=== PATIENT | male | born 1985 | race Caucasian/White ===

== ENCOUNTER 2024-03-26 16:17 | Emergency (ER) | payer OTHER, SELFPAY ==
--- NOTE | ~2024-03-26 | XR_ITS ---
EXAMINATION: XR chest 2V Exam Date/Time: 03/26/2024 16:48 HEAD SWAMPER HISTORY: Chest Pressure, COUGH Comparison: None. RESULT: Lines, tubes, and devices: None. Lungs and pleura: Patchy bibasilar subsegmental opacities. Discoid atelectasis in the right lower nicole ng. Mild right costophrenic angle blunting. Right minor fissure fluid. Cardiomediastinal silhouette: Stable. Other: No acute osseous or upper abdominal finding. IMPRESSION: Subsegmental bibasilar atelectasis/consolidation. Small right pleural effusion. Reviewed, dictated and finalized at location K. SWAMPER
--- NOTE | ~2024-03-26 | CT_ITS ---
EXAMINATION: CTA chest PE protocol DATE: 03/26/2024 18:30 INDICATION: pleuritic CP TECHNIQUE: Computed tomography angiography (CTA) of the chest was performed with 100 mL Omnipaque-350 intravenous contrast timed to evaluate the pulmonary arteries. Coronal maximum intensity projection 3D-reconstructions were created by the technologist. The dose-length product (DLP) was 385.46 mGy-cm. Automated exposure control and iterative reconstruction technique were employed. COMPARISON: X-ray chest, same date. FINDINGS: Lung parenchyma and airways: Moderate motion artifact in the lower lungs. Linear and patchy areas of subsegmental opacities in the bilateral lung bases. Patent airways. Pleura: Trace right pleural fluid. Thoracic inlet, axillae and chest wall: Unremarkable. Thoracic aorta: No significant dilation. No dissection. Mediastinum: Normal. Heart and pericardium: Cardiomegaly. Small volume pericardial fluid. Coronary artery calcifications: Absent. Upper abdomen: No significant finding. Bones: No acute osseous finding. Pulmonary arteries: Study quality: Study limited by moderate motion artifact in the lower lungs which limits evaluation of the subsegmental pulmonary arteries in the right lower lobe and the segmental a nd subsegmental pulmonary arteries in the left lower lobe. No pulmonary emboli detected in the adequa tely visualized pulmonary arteries. IMPRESSION: Motion limits evaluation of the left lower lobe segmental and subsegmental arteries and the right low er lobe subsegmental arteries. No CT evidence of acute pulmonary embolus in the adequately visualized pulmonary arteries. Streaky and patchy areas of consolidation in the bilateral lung bases, consider infection the differe ntial. Cardiomegaly, small pericardial effusion. Small right pleural effusion. Reviewed, dictated and finalized at location K. FACTURING SUPERVISOR IMPRESSION: Motion limits evaluation of the left lower lobe segmental and subsegmental el[place] ann and the right lower lobe subsegmental arteries. No CT evidence of acute pu lmonary embolus in the adequately visualized pulmonary arteries. Streaky and patchy areas of consolidation in the bilateral lung bases, consider infection the differential. Cardiomegaly, small pericardial effusion. Small right pleural effusion.
[2024-03-26 16:21] VITALS: BP 142/84; PULSE 105; RESP 19; TEMP 36.5; O2SAT 98
--- NOTE | 2024-03-26 16:24 | ECG_ITS ---
Test Date: 2024-03-26 16:28:35 Measurements Intervals [place] Rate: 96 P: 35 [place]: 178 QRS: 2 QRSD: 89 T: 0 QT: 365 QTc: 462 Interpretive Statements SINUS RHYTHM POSSIBLE LEFT ATRIAL ENLARGEMENT [-0.1mV P WAVE IN V1/V2] POSSIBLE LEFT VENTRICULAR HYPERTROPHY [VOLTAGE CRITERIA PLUS LAE OR QRS WIDENING] NONSPECIFIC T-WAVE ABNORMALITY No previous ECG available for comparison Electronically Signed On 03-26-2024 18:08:32 PAPER BALER by Daniel Hou M.D.
[2024-03-26 16:40] LABS: Basophils Percent Auto 0.2 % (0.2-1.2); Eosinophils Absolute Auto 0.2 K/mm3 (0-0.3); Eosinophils Percent Auto 3.8 % (0-4.4); Hematocrit 33.1 % (42.0-52.0); Hemoglobin 10.9 g/dL (14.0-18.0); Immature Granulocyte Absolute 0.03 K/mm3 (0.00-0.031); Immature Granulocyte Percent A 0.6 % (0-0.5); Lymphocytes Absolute Auto 0.82 K/mm3 (0.9-3.2); Lymphocytes Percent Auto 17.1 % (18.3-44.2); Mean Corpuscular HGB Conc 32.9 g/dl (32-36); Mean Corpuscular Hemoglobin 26.5 pg (26-34); Mean Corpuscular Volume 80.5 fl (80-100); Mean Platelet Volume 9.6 fl (7.4-10.4); Monocytes Absolute Auto 0.2 K/mm3 (0.1-0.6); Monocytes Percent Auto 4.6 % (2.6-8.5); Neutrophils Absolute Auto 3.5 K/mm3 (1.3-6.7); Neutrophils Percent Auto 73.7 % (45.5-73.1); Platelet Count Result 319 k/mm3 (150-375); Red Blood Count 4.11 M/mm3 (4.6-6.20); Red Cell Distribution Width 13.3 % (11.5-14.5); White Blood Count 4.8 K/mm3 (4.5-10.0)
[2024-03-26 16:51] LABS: INR 1.1
[2024-03-26 16:52] LABS: Partial Thromboplastin Time 35.9 Seconds (22.3-36.8)
[2024-03-26 16:53] LABS: Alanine Aminotransferase 39 U/L (6-50); Albumin Level 3.6 g/dL (3.5-5.1); Alkaline Phosphatase 143 U/L (38-126); Anion Gap 7 mmol/L (4-12); Aspartate Amino Transferase 48 U/L (17-59); Bilirubin,Total 0.8 mg/dL (0.2-1.3); Blood Urea Nitrogen 13 mg/dL (9-20); Calcium 9.4 mg/dL (8.4-10.2); Carbon Dioxide 28 mmol/L (22-30); Chloride 105 mmol/L (98-107); Estimated CRCL calculation 115 ml/min; Estimated Glomerular Filt Rate > 60; Glucose 112 mg/dL (65-110); Lipase 85 U/L (23-300); Potassium 3.7 mmol/L (3.4-5.0); Sodium 140 mmol/L (137-145)
[2024-03-26 17:04] VITALS: O2SAT 98
[2024-03-26 17:04] LABS: Troponin I < 0.012 ng/mL (0.000-0.034)
--- NOTE | 2024-03-26 17:27 | ED_ITS ---
HPI - Chest Pain General Chief Complaint: Chest Pain Stated Complaint: Pain with Inspiration Time Seen by Provider: 03/26/24 17:05 History of Present Illness HPI narrative: 39 year old male presenting with chest pain. States that he was recently treated for pneumonia several weeks ago. States that he has been having intermittent chest pain and some shortness of breath this entire time. States over the last couple days chest pain has gotten worse and is now worse with inspiration. Has tried ibuprofen with minimal relief. Related Data Allergies Allergy/AdvReac Type Severity Reaction Status Date / Time No Known Allergies Allergy Verified 03/26/24 17:58 Review of Systems 2 Review of Systems: All systems reviewed & are unremarkable except as noted in HPI and below Exam 2 Narrative: GENERAL: Nontoxic, no acute distress, pleasant cooperative HEAD: Normocephalic, atraumatic. EYES: PERRLA and EOMI. ENT: Grossly unremarkable NECK: Supple. CHEST: Clear to auscultation. No respiratory distress. HEART: Tachycardic, regular rhythm ABDOMEN: Soft, nontender, nondistended EXTREMITIES: Normal range of motion. No edema. SKIN: Warm, dry, no rash. NEURO: No focal deficits. Alert and oriented x3. PSYCH: Normal mood and affect. Course Vital Signs Vital signs: Vital Signs Temperature 97.7 F 03/26/24 16:21 Pulse Rate 105 H 03/26/24 16:21 Respiratory Rate 19 03/26/24 16:21 Blood Pressure 142/84 H 03/26/24 16:21 Pulse Oximetry 98 03/26/24 16:21 Oxygen Delivery Room Air 03/26/24 16:21 Temperature 97.7 F 03/26/24 16:21 Pulse Rate 100 03/26/24 21:26 Respiratory Rate 19 03/26/24 21:26 Blood Pressure 151/88 H 03/26/24 21:26 Pulse Oximetry 99 03/26/24 21:26 Oxygen Delivery Room Air 03/26/24 17:04 MDM - Chest Pain MDM Narrative Medical decision making narrative: 39-year-old male presenting with chest pain that is worse with inspiration. Tachycardic, otherwise vitals are within normal limits. Exam otherwise remarkable for the above. Blood work without significant abnormalities. CTA of the chest shows no pulmonary embolus but he does have consolidations in both bases with a small right-sided pleural effusion. Patient given a dose of IV Rocephin and doxycycline. He continues to saturate well on room air. Feel he is safe for outpatient management. Will send in for Keflex and doxy. Recommend very close PCP follow-up. Strict return precautions given. Discharged in stable condition. Differential Diagnosis Differential diagnosis: Likely atypical chest pain, costochondritis, chest pain and other (Pneumonia, PE, viral URI, pleuritis) Medical Records Data Attestation: I reviewed the patient's medical records. Lab Data Attestation: I reviewed the patient's lab results. 03/26/24 16:31 03/26/24 16:31 Labs: Lab Results 03/26/24 03/26/24 Range/Units 16:31 19:34 WBC 4.8 (4.5-10.0) K/mm3 RBC 4.11 L (4.6-6.20) M/mm3 Hgb 10.9 L (14.0-18.0) g/dL Hct 33.1 L (42.0-52.0) % MCV 80.5 (80-100) fl MCH 26.5 (26-34) pg MCHC 32.9 (32-36) g/dl RDW 13.3 (11.5-14.5) % Plt Count 319 (150-375) k/mm3 MPV 9.6 (7.4-10.4) fl Immature Gran % (Auto) 0.6 H (0-0.5) % Neut % (Auto) 73.7 H (45.5-73.1) % Lymph % (Auto) 17.1 L (18.3-44.2) % [place] % (Auto) 4.6 (2.6-8.5) % Eos % (Auto) 3.8 (0-4.4) % Baso % (Auto) 0.2 (0.2-1.2) % Lymph # (Auto) 0.82 L (0.9-3.2) K/mm3 [place] # (Auto) 0.2 (0.1-0.6) K/mm3 Eos # (Auto) 0.2 (0-0.3) K/mm3 Baso # (Auto) 0.0 (0.0-0.1) K/mm3 Abs Immat Gran (auto) 0.03 (0.00-0.031) K/mm3 Absolute Neuts (auto) 3.5 (1.3-6.7) K/mm3 Absolute Nucleated RBC 0.000 (0.0-0.012) K/mm3 Nucleated RBC % 0.0 (0.0-0.2) % PT 15.0 H (11.1-14.7) Seconds INR 1.1 APTT 35.9 (22.3-36.8) Seconds Sodium 140 (137-145) mmol/L Potassium 3.7 (3.4-5.0) mmol/L Chloride 105 (98-107) mmol/L Carbon Dioxide 28 (22-30) mmol/L Anion Gap 7 (4-12) mmol/L BUN 13 (9-20) mg/dL Creatinine 0.80 (0.7-1.3) mg/dL Estim Creat Clear Calc 115 ml/min Estimated GFR > 60 (59 - ) Glucose 112 H (65-110) mg/dL Calcium 9.4 (8.4-10.2) mg/dL Total Bilirubin 0.8 (0.2-1.3) mg/dL AST 48 (17-59) U/L ALT 39 (6-50) U/L Alkaline Phosphatase 143 H (38-126) U/L Troponin I < 0.012 < 0.012 (0.000-0.034) ng/mL Total Protein 9.0 H (6.3-8.2) g/dL Albumin 3.6 (3.5-5.1) g/dL Lipase 85 (23-300) U/L Influenza A (RT-PCR) Negative (Negative) Influenza B (RT-PCR) Negative (Negative) RSV (RT-PCR) Negative (Negative) SARS-CoV-2 RNA (RT-PCR) Negative (Negative) Imaging Data Radiologist's impression: ITS Impressions Chest X-Ray 03/26/24 17:17 IMPRESSION: Subsegmental bibasilar atelectasis/consolidation. Small right pleural effusion. Chest CTA 03/26/24 18:38 IMPRESSION: Motion limits evaluation of the left lower lobe segmental and subsegmental arteries and the right lower lobe subsegmental arteries. No CT evidence of acute pulmonary embolus in the adequately visualized pulmonary arteries. Streaky and patchy areas of consolidation in the bilateral lung bases, consider infection the differential. Cardiomegaly, small pericardial effusion. Small right pleural effusion. Critical Care Time Critical Care Time Critical Care Time: No Discharge Plan Discharge Clinical Impression: Pneumonia, Atypical chest pain, Pleural effusion on right Patient Disposition: Home, Self-Care Condition: Stable Instructions: Antibiotic Form, Community Acquired Pneumonia (DC) Additional Instructions: We are treating you with 2 different antibiotics for pneumonia. Please complete these as prescribed. Follow up very closely with your PCP. If your symptoms worsen or other concerning symptoms arise, please return to the ER. Patient Language: Martiniquais Prescriptions: New cefpodoxime 200 mg tablet 200 mg PO BID Qty: 14 0RF Rx Instructions: must administer with a meal/food doxycycline hyclate 100 mg tablet 100 mg PO BID Qty: 14 0RF Follow-up/Referrals: PHYSICIAN NOT ON STAFF,NONSTAFF [Primary Care Provider] - Stand Alone Forms: Work/School Release IP
[2024-03-26] MEDS: MORPHINE SULFATE (*CRX) 2 MG/ML INJ IV PUSH (18:08)
[2024-03-26] MEDS: SODIUM CHLORIDE 0.9% IV 1,000 ML 999 ML IV CONT (18:08)
[2024-03-26] MEDS: KETOROLAC 15 MG/ML VIAL (*BKC) IV PUSH (18:08)
[2024-03-26] MEDS: cefTRIAXone 2 GM/NS 100 ML 2 GM/100 ML BAG IVPB (19:11)
[2024-03-26 19:25] VITALS: BP 139/67; PULSE 98; RESP 18; O2SAT 100
[2024-03-26] MEDS: DOXYCYCLINE 100 MG/NS 100 ML 100 MG/100 ML BAG IVPB (19:53)
[2024-03-26 20:02] LABS: Troponin I < 0.012 ng/mL (0.000-0.034)
[2024-03-26 20:15] LABS: Influenza A QL RT-PCR Negative (Negative); Influenza B QL RT-PCR Negative (Negative); RSV RNA, RT-PCR Negative (Negative); SARS-CoV-2 RNA PCR Negative (Negative)
[2024-03-26 21:26] VITALS: BP 151/88; PULSE 100; RESP 19; O2SAT 99
--- OUTSIDE RECORDS SUMMARY | 2024-03-30 23:34 | XMS_ITS | Encounter Summary ---
Author Organization [facility] Address [address] [place] [address]. [place], [place] [address] [place] [id number] Care Team Providers Care Plumber And Tinner Name Role Phone Preethi Hall Primary Care Provider [phone] Reason for Visit * Reason Comments UTI frequency with urina tion but not going as much x 3 days, pain a few weeks ago in lower back (has had a kidney stone before) Encounter Details Date Type Department Care Team (Late st Contact Info) Description 07/04/2020 3:20 PM CDT Office Visit [facility] [address] [place] [address] Sergo Brand MD UTI (frequency with urination but not going as much x 3 days, pain a few weeks ago in lower back (has had a kidney stone before)) Social History Tobacco Use Types Packs/Day Years Used Date Smoking Tobacco: Never Smokeless Tobacco: Never Alcohol Use Standard Drinks/Week Comments Yes 0 (1 standard drink = 0.6 oz pur e alcohol) PHQ-2 Answer Date Recorded PHQ-2 Score - If the patient scores above 3, please move on to questions 3-9 0 09/21/2019 Sex and Gender Information Value Date Recorded Sex Assigned at Not on file Legal Sex Male 12:28 PM CDT Gender Identity Not on file Sexual Orientation Not on file COVID-19 Exposure Response Date Recorded In the last month, have you been in contact with someone who was confirmed or suspected to have Coronavirus / COVID-19? No / Unsure 07/04/2020 3:07 PM CDT documented as of this encounter Last Filed Vital Signs Vital Sign Reading Time Taken Comments Blood Pressure 132/86 07/04/2020 3:09 PM CDT Pulse 74 07/04/2020 3:09 PM CDT Temperature 35.9 ??C (96.6 ??F) 07/04/2020 3:09 PM CD T Respiratory Rate 18 07/04/2020 3:09 PM CDT Oxygen Saturation 97% 07/04/2020 3:09 PM CDT Inhaled Oxygen Concentration - - Weight 95.7 kg (211 lb) 07/04/2020 3:09 PM CDT Height 180.3 cm (5' 11 ) 07/04/2020 3:09 PM CDT Body Mass Index 29.43 07/04/2020 3:09 PM CDT documented in this encounter Progress Notes * Sergo Brand MD - 07/04/2020 3:20 PM CDT Reason for Visit: UTI (frequency with urination but not going as much x 3 days, pain a few weeks ago in lower back (has had a kidney stone before)) Filed Vitals: 07/04/20 1509 BP: 132/86 Pulse: 74 Resp: 18 Temp: 96.6 ??F (35.9 ??C) TempSrc: Temporal SpO2: 97% Weight: 95.7 kg (211 lb) Height: 5' 11 (1.803 m) Body mass index is 29.43 kg/m??. History of Present Illness: HPI good afternoon office visit in Mr. Yosi Pineda pleasant young man 35-year-old gentleman witha history of previous kidney stones in the past comes today with 3 days of low back pain and increased urination and burning when he urinates he does have a history of previous kidney stones I guess that urinalysis today shows some blood but no leukocytes or nitrates suggestive of another kidney stone is possible that he already passed it as he does not have any back pain right now so encouraged him to drink plenty of fluids I going to send the urine for a microscopic examination and culture ifneeded otherwise plenty of fluids and that should get better in the next few days if not I will need to see him back again and perhaps order a CT scan with stone protocol or if he gets worse he can go directly to the emergency room and have those test done over there. Encouraged him to eliminate sodas ROS: Review of Systems Constitutional: Negative for chills and fever. Respiratory: Negative. Cardiovascular: Negative. Genitourinary: Positive for dysuria, frequency and urgency. Negative for hematuria. He had some flank pain few days ago Musculoskeletal: low back pain few days ago Medications: No current outpatient medications on file. Allergies Allergen Reactions ??? Shellfish-Derived Products Swelling Patient states he is allergic to all shellfish and seafood. History reviewed. No pertinent past medical history. Past Surgical History: Procedure Laterality Date ? ? HC I&D SKIN ABSCESS ??? REMOVAL OF SPERM DUCT(S) ??? TOOTH EXTRACTION 4 wisdom teeth Social History Socioeconomic History ??? Marital status: Spouse name: Not on file ??? Number of children: Not on file ??? Years of education: Not on file ??? Highest education level: Not on file Occupational History ??? Not on file Social Needs ??? Financial resource strain: Not on file ??? Food insecurity Worry: Not on file Inability: Not on file ??? Transportation needs Medical: Not on file Non-medical: Not on file Tobacco Use ??? Smoking status: Never Smoker ??? Smokeless tobacco: Never Used Substance and Sexual Activity ??? Alcohol use: Yes ??? Drug use: Never ??? Sexual activity: Yes Lifestyle ??? Physical activity Days per week: Not on file Minutes per session: Not on file ??? Stress: Not on file Relationships ??? Social connections Talks on phone: Not on file Gets together: Not on file Attends buddhist service: Not on file Active member of club or organization: Not on file Attends meetings of clubs or organizations: Not on file Relationship status: Not on file ??? Intimate partner violence Fear of current or ex partner: Not on file Emotionally abused: Not on file Physically abused: Not on file Forced sexual activity: Not on file Other Topics Concern ??? Not on file Social History Narrative ??? Not on file Family History Problem Relation Name Age of Onset ??? Heart Disease Father ??? Diabetes Father type 2 ??? Stroke Father Family Status Relation Name Status ??? Father (Not Specified) Physical Exam Constitutional: He is oriented to person, place, and time. He appears well- developed and well-nourished. Cardiovascular: Normal rate and regular rhythm. Pulmonary/Chest: Effort normal and breath sounds normal. Abdominal: Soft. Bowel sounds are normal. He exhibits no distension and no mass. There is no abdominal tenderness. There is no rebound and no guarding. Today he has no back pain percussion of the flanks were negative normal Musculoskeletal: Normal range of motion. Neurological: He is alert and oriented to person, place, and time. Results for orders placed or performed in visit on 07/04/20 URINALYSIS AUTO DIP Result Value Ref Range COLOR (U) DARK YELLOW TRANSPARENCY CLOUDY GLUCOSE (U) NEGATIVE NEGATIVE MG/DL BILIRUBIN (U) NEGATIVE NEGATIVE U KETONES NEGATIVE NEGATIVE MG/DL Specific [place] (U) 1.020 1.001 - 1.035 BLOOD MODERATE (2+ Hemolyzed, About 50 rbc/uL) NEGATIVE U PH 7.0 5.0 - 9.0 PROTEIN (U) NEGATIVE NEGATIVE mg/dL UROBILINOGEN 1.0 0.2 - 1.0 EU/dL = mg/dL NITRITES NEGATIVE NEGATIVE MG/DL LEUKOCYTE ESTERASE NEGATIVE NEGATIVE Assessment Encounter Diagnose(s) ICD-10-CM ICD-9-CM SNOMED CT(R) 1. UTI symptoms R39.9 788.99 URINARY SYMPTOMS URINALYSIS AUTO DIP CULTURE URINE Plan he is going to be drinking plenty of fluids and he is going to pay attention to the urine and see if he disease as done it is possible that he already passed the stone and that is why he having the symptoms that he has. Recommendation for the near future if the problem does not get better and if he gets worse to go to the emergency room if the is not better within a week would like to see him back again I going to send the urine for a microscopic examination. No antibiotics for now Orders Placed This Encounter ??? URINALYSIS AUTO DIP ??? CULTURE URINE Follow up FU PRN SERGO BRAND MD 07/04/2020 3:47 PM documented in this encounter Plan of Treatment Not on file documented as of this encounter Procedures Procedure Name Priority Date/Time Associated Diagnosis Comments URINALYSIS AUTO DIP Routine 07/04/2020 3 :09 PM CDT UTI symptoms documented in this encounter Results * CULTURE URINE (07/04/2020 5:26 PM CDT) SPEC DESCRIPTION URINE CLEAN CATCH 07/04/2020 5:26 PM CDT [facility] SPECIAL REQUESTS NO SPECIAL REQUEST 07/04/2020 5:26 PM CDT [facility] CULTURE RESULT NO GROWTH 2 DAYS 07/06/2020 7:56 AM CDT [facility] URINE SPECIMEN OBTAINED BY CLEAN CATCH PROCEDURE / Unknown 07/04/2020 5:26 PM CDT 07/04/2020 5:34 PM CDT us Sergo Brand MD MICROBIOLOGY - GENERAL O RDERABLES Final Result [facility] [address] [place] [address], [place] [phone] [facility] [address] [place] [address], [place] [phone] * URINALYSIS AUTO DIP (07/04/2020 3:09 PM CDT) COLOR (U) DARK YELLOW [id number], [facility] TRANSPARENCY CLOUDY MG-[address], [place] GLUCOSE (U) NEGATIVE NEGATIVE MG/DL MG-[id number], [place] BILIRUBIN (U) NEGATIVE NEGATIVE MG-[address], [place] KETONES MG/DL (U) NEGATIVE NEGATIVE MG/DL MG-[id number], [facility] SPECIFIC GRAVITY (U) 1.020 1.001 - 1.035 MG-[address], [facility] BLOOD (U) MODERATE (2+ Hemolyzed, About 50 rbc/uL) NEGATIVE MG-[address], [facility] U PH 7.0 5.0 - 9.0 MG-[address], [place] PROTEIN (U) NEGATIVE NEGATIVE mg/dL MG-91483 [facility], [place] UROBILINOGEN 1.0 0.2 - 1.0 EU/dL = mg/dL MG-83713 [facility] [place] NITRITES NEGATIVE NEGATIVE MG/DL MG-82723 [facility] [place] LEUKOCYTES (U) NEGATIVE NEGATIVE MG-12 860 [facility], [place] URINE SPECIMEN OBTAINED BY CLEAN CATCH PROCEDURE / Unknown 07/04/2020 3:09 PM CDT us Sergo Brand MD URINE ORDERABLES Final R esult -[address] [facility], [place] [address] [place] [address], documented in this encounter Visit Diagnoses Diagnosis Kidney stone- Primary Calculus of kidney UTI symptoms documented in this encounter Care Teams Plumber And Tinner Relationship Specialty Start Date End Date Preethi Hall APNP [address] [facility] [address] [place] [address] PCP - General Nurse Practitioner Family 09/21/1911/12 documented as of this encounter
--- OUTSIDE RECORDS SUMMARY | 2024-03-30 23:34 | XMS_ITS | Encounter Summary ---
Author Organization [facility] Address [address] [place] [address]. [place], [place] [address] [place] [address] Care Team Providers Care Orientation & Mobility Specialist Name Role Phone Preethi Hall Primary Care Provider [phone] Encounter Details Date Type Department Care Team (Latest Contact Info) Description 07/04/2020 Travel Social History Tobacco Use Types Packs/Day Years [...] PM CDT documented as of this encounter Plan of Treatment Not on file documented as of this encounter Visit Diagnoses Not on filedocumented in this encounter Care Teams Orientation & Mobility Specialist Relationship Specialty Start Date End Date Preethi Hall APNP [address] [place] [address] PCP - General Nurse Practitioner Family 09/21/19 8/06/05 documented as of this encounter
--- OUTSIDE RECORDS SUMMARY | 2024-03-30 23:34 | XMS_ITS | Clinical Summary ---
Author Organization [facility] Address [address] [place] [address]. [place] [address] [place] [address] Care Team Providers Care Dean Of Girls Name Role Phone Patricia Milligan PA-C Primary Care Provider [phone] Allergies Active Allergy Reactions Criticality Noted Date Comments Shellfish-Derived Products Swelling High 0 Patient states he is allergic to all shellfish and seafood. Medications HYDROcodone-harley taminophen 5-325 MG tabletIndicatio ns:Acute Pain < 3 Day Supply Take 1 tablet by mouth every 6 (six) hours as needed for Pain. Indications: Acute Pain < 3 Day Supply 12 tablet 08/28/2021 Active tamsulosin 0.4 MG Cap Take 1 capsule (0.4 mg total) by mouth daily. 30 capsule 08/28/2021 Active Active Problems Problem Noted Date Diagnosed Date Dysfunction of left eustachian tube 10/31/2020 Resolved Problems Problem Noted Date Diagnosed Date Resolved Date Kidney stone 07/04/2020 10/31/2020 UTI symptoms 07/04/2020 10/31/2020 Immunizations Name Administration Dates Next Due PFIZER COVID-19 (ORIGINAL FO RMULATION, PURPLE CAP) mRNA, LNP-S, PF, 30 MCG/0.3 ML DOSE 08/11/2020,07/21/2020 Family History Medical History Relation Comments Diabetes Father type 2 Heart Disease Father Stroke Father No Known Problems Mother Relation Status Comments Father Mother Social History Tobacco Use Types Packs/Day Years Used Date Smoking Tobacco: Never Smokeless Tobacco: Never Tobacco Cessation:Counseling Given: No Alcohol Use Standard Drinks/Week Comments Yes 0 (1 standard drink = 0.6 oz pur e alcohol) Occasional PHQ-2 Answer Date Recorded PHQ-2 Score - If the patient scores above 3, please move on to questions 3-9 0 09/21/2019 Sex and Gender Information Value Date Recorded Sex Assigned at Not on file Legal Sex Male 12:28 PM CDT Gender Identity Not on file Sexual Orientation Not on file Last Filed Vital Signs Vital Sign Reading Time Taken Comments Blood Pressure 154/111 08/28/2021 8:18 AM CDT Pulse 62 08/28/2021 8:18 AM CDT Temperature 36.4 ??C (97.6 ??F) 08/28/2021 8:18 AM CD T Respiratory Rate 18 08/28/2021 8:18 AM CDT Oxygen Saturation 98% 08/28/2021 8:18 AM CDT Inhaled Oxygen Concentration - - Weight 94.8 kg (209 lb) 08/28/2021 8:18 AM CDT Height 180.3 cm (5' 11 ) 08/28/2021 8:18 AM CDT Body Mass Index 29.15 08/28/2021 8:18 AM CDT Plan of Treatment Health Maintenance Due Date Last Done Comments Annual Physical 01/28/1988 Hepatitis C 2003 DTaP, Tdap and Td Vaccines ( 1 - Tdap) 01/28/2004 Hepatitis B Vaccines (1 of - 19+ 3-dose series) 01/28/2004 COVID-19 Vaccine (2023-2 5 season) 2023 08/11/2020, 07/21/2020 Influenza Adult (#1) 2024 HPV Vaccines Aged Out No longer eligi ble based on patient's age to complete this topic Meningococcal Vaccine Aged Out No lakshmi rupert eligible based on patient's age to complete this topic Pneumococcal Vaccine: Pediatrics (0 to 5 Years) and At-Risk Patients (6 to 64 Years) Aged Out No longer eligible b ased on patient's age to complete this topic RSV Immunizations Under 20 Months Aged Out No longer eligible b ased on patient's age to complete this topic Insurance [facility] Care Teams Dean Of Girls Relationship Specialty Start Date End Date Patricia Milligan PA-C [address] [facility] [address] [place] [address] PCP - General PHYSICIAN DOWEL MACHINE OPERATOR 12/03/22
--- OUTSIDE RECORDS SUMMARY | 2024-03-30 23:34 | XMS_ITS | Encounter Summary ---
Author Organization [facility] Address [address] [place] [address]. [place] [address] [place] [address] Care Team Providers Care Nuclear Weapons Specialist Name Role Phone Preethi Hall Primary Care Provider [phone] Reason for Visit * Reason Comments Flank Pain Encounter Details Date Type Department Care Team (Latest Contact Info) Description 08/28/2021 8:08 AM CDT - 08/28/2021 9:17 AM CDT Hospital Encounter [facility] [address] [place] [address] Adama Negro PA [address] [place] [address] [id number] Flank Pain Discharge Disposition: Home or Self Care (Routine Discharge) Social History Tobacco Use Types Packs/Day Years [...] Exposure Response Date Recorded In the last 10 days, have yo u been in contact with someone who was confirmed or suspected to have Coronavirus/COVID-19? No / Unsure 08/28/2021 8:02 AM CDT documented as of this encounter Last [...] Mass Index 29.15 08/28/2021 8:18 AM CDT documented in this encounter Discharge Instructions * Discharge Instructions* GURINDER Dean - 08/28/2021 8:50 AM CDT Drink plenty of fluids. Take pain medicine as needed. do not drink alcohol or drive while using this medicine. Take flomax as directed Go to the ER if pain worsens or is prolonged or if fever develops. Your blood pressure is also high today, this may be anxiety or not feeling well but follow up with your doctor to make sure this has resolved. * Attachments The following attachments cannot be sent through Care Everywhere. * Flank Pain (Qatari) documented in this encounter Medications at Time of Discharge HYDROcodone-aceta minophen 5-325 MG tabletIndications :Acute Pain < 3 Day Supply Take 1 tablet by mouth every 6 (six) hours as needed for Pain. Indications: Acute Pain < 3 Day Supply 12 tablet 08/28/2021 tamsulosin 0.4 MG Cap Take 1 capsule (0.4 mg total) by mouth daily. 30 capsule 08/28/2021 documented as of this encounter ED Notes * GURINDER Dean - 08/28/2021 8:44 AM CDT [place], [place] HISTORICAL INFORMATION Primary Care Doctor: JOSE Danielson Patient information was obtained primarily from the patient, nursing notes, History/Exam limitations: None Provider at Bedside Date/Time Event User Comments 08/28/21 0811 Provider at Bedside Assessing Patient ADAMA NEGRO CHIEF COMPLAINT Flank Pain HPI Yosi Pineda is a 36-year-old male who presents to the [facility] care for left sided flankpain, dysuria. Pt states this morning he developed left sided flank pain and penile pain. Pt statesthis feels similar to kidney stone several years ago. Pt denies f/c/s. PAST MEDICAL HISTORY Past Medical History: Diagnosis Date ??? COVID-19 vaccine administered 2020 Pfizer ??? Kidney stone 07/04/2020 Negative unless otherwise noted SURGICAL HISTORY Past Surgical History: Procedure Laterality Date ? ? HC I&D SKIN ABSCESS ??? REMOVAL OF SPERM DUCT(S) ??? TOOTH EXTRACTION 4 wisdom teeth Negative unless otherwise noted CURRENT MEDICATIONS Current Facility-Administered Medications: ??? ketorolac (TORADOL) injection 30 mg, 30 mg, Intramuscular, Once, GURINDER Dean No current outpatient medications on file. ALLERGIES Allergies Allergen Reactions ??? Shellfish-Derived Products Swelling Patient states he is allergic to all shellfish and seafood. FAMILY HISTORY Family History Problem Relation Name Age of Onset ??? Heart Disease Father ??? Diabetes Father type 2 ??? Stroke Father ??? No Known Problems Mother SOCIAL HISTORY Social History Tobacco Use ??? Smoking status: Never Smoker ??? Smokeless tobacco: Never Used Vaping Use ??? Vaping Use: Never used Substance Use Topics ??? Alcohol use: Yes Comment: Occasional ??? Drug use: Never Negative unless otherwise noted REVIEW OF SYSTEMS Review of Systems Genitourinary: Positive for dysuria, flank pain and penile pain. Negative for hematuria. All other systems reviewed and negative PHYSICAL EXAM VITAL SIGNS: Filed Vitals: 08/28/21 0818 BP: (!) 154/111 Pulse: 62 Resp: 18 Temp: 97.6 ??F (36.4 ??C) TempSrc: Temporal SpO2: 98% Weight: 94.8 kg (209 lb) Height: 5' 11 (1.803 m) Constitutional: Well developed, Well nourished, No acute distress, Non-toxic appearance. HENT: Normocephalic, Atraumatic, Bilateral external ears normal, Oropharynx moist, No oral exudates, Nose normal. Eyes: PERRL, EOMI, Conjunctiva normal, No discharge. Neck- Normal range of motion, No tenderness, Supple, No stridor. Respiratory: Normal breath sounds, No respiratory distress. Cardiovascular: Normal heart rate, Normal rhythm GI: nd Musculoskeletal: Intact distal pulses, No edema, No tenderness, No cyanosis, No clubbing. Good range of motion in all major joints. No tenderness to palpation or major deformities noted. Back- No tenderness. Integument: Warm, Dry, No erythema, No rash. Lymphatic: No lymphadenopathy noted. Neurologic: Alert & oriented x 3, Normal motor function, Normal sensory function, No focal deficits noted. Psychiatric: Affect normal, Judgment normal, Mood normal. Pulse Oximetry Interpretation Saturation: 98% Oxygen Delivery: room air Interpretation: normal ED COURSE & MEDICAL DECISION MAKING Pertinent Labs & Imaging studies reviewed. (See chart for details) UA shows large amount of hematuria. Discussed with pt probable KS. Offered transfer to ER for imaging (or xray here) but pt declined which I think is reasonable. Will tx pain with IM toradol, then Rxof norco and flomax. Discussed reasons to go to the ER. ? Disposition Discussion: Diagnostic tests were reviewed and questions answered. Diagnosis, care plan and treatment options were discussed. The patient understand instructions and will follow up as directed. DATE: 08/28/2021 8:44 AM PATIENT: Yosi Pineda Discharge Clinical Impressions: Left flank pain Discharge Condition: stable Discharge Disposition: Patient discharge to home with norco, flomax I spent time answering the patient's questions. Discharge instructions using teach back, understanding assessed and validated. Please refer to the exit life underwriter discharge instructions for details surrounding the discharge plan. I did reiterate with the patient that if an urgent need for immediate follow up comes up, not to hesitate to return to the ED. GURINDER Dean PA 08/28/21 0848 Cosigned by Lisa Gonzalez MD at 08/28/2021 11:19 PM CDT * Ligia Painter RN - 08/28/2021 8:23 AM CDT Pt TO UC WITH C/O LEFT FLANK PAIN AND LEFT LOWER ABDOMINAL (SUPRAPUBIC PAIN) THAT STARTED 1 HOUR AGO. PT STATED HX OF KS IN THE PAST, ABOUT 1 YEAR AGO, THAT HE WAS ABLE TO PASS ON HIS OWN. URINE BROWN AND CLOUDY. documented in this encounter Plan of Treatment Not on file documented as of this encounter Procedures Procedure Name Priority Date/Time Associated Diagnosis Comments URINALYSIS AUTO DIP STAT 08/28/2021 8 :29 AM CDT documented in this encounter Results * (ABNORMAL) URINALYSIS AUTO DIP (08/28/2021 8:29 AM CDT) SPECIMEN TYPE URINE CLEAN CATCH 08/28/2021 8:29 AM CDT [facility] COLOR (U) BROWN 08/29/2021 11:07 AM CDT [facility] TRANSPARENCY CLOUDY 08/29/2021 11:07 AM CDT [facility] SPECIFIC GRAVITY (U) >1.030(H) 1.001 - 1.030 08/29/2021 11:07 AM CDT [facility] U PH 5.5 5.0 - 9.0 08/29/2021 11:07 AM CDT [facility] LEUKOCYTES (U) NEGATIVE NEGATIVE 08/29/2021 11:07 AM CDT [facility] NITRITES NEGATIVE NEGATIVE 08/29/2021 11:07 AM CDT [facility] PROTEIN (U) 100(H) <30 MG/DL 08/29/2021 11:07 AM CDT [facility] URINE GLUCOSE NEGATIVE NEGATIVE MG/DL 08/29/2021 11:07 AM CDT [facility] KETONES MG/DL (U) TRACE(A) NEGATIVE MG/DL 08/29/2021 11:07 AM CDT [facility] UROBILINOGEN 0.2(A) NEGATIVE MG/DL 08/29/2021 11:07 AM CDT [facility] BILIRUBIN (U) SMALL(A) NEGATIVE MG/DL 08/29/2021 11:07 AM CDT [facility] BLOOD (U) LARGE(A) NEGATIVE 08/29/2021 11:07 AM CDT [facility] URINE SPECIMEN OBTAINED BY CLEAN CATCH PROCEDURE / Unknown 08/28/2021 8:29 AM CDT us Adama FAIRCHILD URINE ORDERABLES Final Res [address] [place] [id number] [place] [address], documented in this encounter Visit Diagnoses Diagnosis Flank pain- Primary Abdominal pain, unspecified site Kidney stone Calculus of kidney documented in this encounter Administered Medications Inactive Administered Medications - up to 3 most recent administrations Medication Order MAR Action Action Date Dose Rate Site ketorolac (TORADOL) injection 30 mg 30 mg, Intramuscular, Once, 1 dose, On Thu08/28/21 at 0900, For IV administration, give over 15 seconds. Given 08/28/2021 8:50 AM CDT 30 mg Right Ventrogluteal documented in this encounter Active and Recently Administered Medications Times are shown in CDT. Scheduled Medication Order 08/26/2021 08/27/2021 08/28/2021 ketorolac (TORADOL) injection 30 mg (COMPLETED) 30 mg, Intramuscular, Once, 1 dose, On Thu08/28/21 at 0900, For IV administration, give over 15 seconds. 0850 (Given - Provid er: Ligia Painter RN) documented in this encounter Care Teams Nuclear Weapons Specialist Relationship Specialty Start Date End Date Preethi Hall APNP [address] [place] [address] PCP - General Nurse Practitioner Family 09/21/1911/12 documented as of this encounter
--- OUTSIDE RECORDS SUMMARY | 2024-03-30 23:34 | XMS_ITS | Encounter Summary ---
Author Organization [facility] Address [address] [place] [address]. [place], [place] [address] [place] [address] Care Team Providers Care Training Specialist Name Role Phone Preethi Hall Primary Care Provider [phone] Encounter Details Date Type Department Care Team (Latest Contact Info) Description 09/21/2019 Travel Social History Tobacco Use Types Packs/Day [...] have Coronavirus / COVID-19? No / Unsure 09/21/2019 2:34 PM CDT documented as of this encounter Plan of Treatment Not on file documented as of this encounter Visit Diagnoses Not on filedocumented in this encounter Care Teams Training Specialist Relationship Specialty Start Date End Date Preethi Hall APNP [address] [place] [address] PCP - General Nurse Practitioner Family 09/21/1911/12 documented as of this encounter
--- OUTSIDE RECORDS SUMMARY | 2024-03-30 23:34 | XMS_ITS | Encounter Summary ---
Author Organization [facility] Address [address] [place] [address]. [place], [place] [id number] [place] [address] Care Team Providers Care Overseamer Name Role Phone Preethi Hall Primary Care Provider [phone] Encounter Details Date Type Department Care Team (Latest Contact Info) Description 10/31/2020 Travel Social History Tobacco Use Types Packs/Day [...] have Coronavirus / COVID-19? No / Unsure 10/31/2020 3:47 PM CDT documented as of this encounter Plan of Treatment Not on file documented as of this encounter Visit Diagnoses Not on filedocumented in this encounter Care Teams Overseamer Relationship Specialty Start Date End Date Preethi Hall APNP [address] [place], [place] [id number] PCP - General Nurse Practitioner Family 09/21/19 8/06/05 documented as of this encounter
--- OUTSIDE RECORDS SUMMARY | 2024-03-30 23:34 | XMS_ITS | Encounter Summary ---
Author Organization [facility] Address [address] [place] [address]. [place], [place] [address] [place] [address] Care Team Providers Care Cover Cutter Machine Name Role Phone Preethi Hall Primary Care Provider [phone] Encounter Details Date Type Department Care Team (Late st Contact Info) Description 12/16/2020 - 12/16/2020 3:13 PM CDT Emergency [facility] [address] [place], [place] [id number] Discharge Disposition: Left Against Medical Advice Social History Tobacco Use Types Packs/Day Years [...] on file Sexual Orientation Not on file documented as of this encounter Medications at Time of Discharge busPIRone 10 MG tablet Take 5 mg by mouth 3 (three) times daily as needed. 08/28/2021 documented as of this encounter Plan of Treatment Not on file documented as of this encounter Visit Diagnoses Not on filedocumented in this encounter Care Teams Cover Cutter Machine Relationship Specialty Start Date End Date Preethi Hall APNP [address] [address] PCP - General Nurse Practitioner Family 09/21/1911/12 documented as of this encounter
--- OUTSIDE RECORDS SUMMARY | 2024-03-30 23:34 | XMS_ITS | Encounter Summary ---
Author Organization [facility] Address [facility]. [place], [place] [address] [place] [address] Care Team Providers Care Salvage Repairer Name Role Phone Preethi Hall Primary Care Provider [phone] Reason for Visit * Reason Comments Acute Note c/o L ear pain Ear Problem patient states he tay s had this before, states he feels as if there is a very sharp pain in the ear and is unable to touch the ear, and then it goes away and comes back. Very infrequent. Discuss poss ENT referral. Encounter Details Date Type Department Care Team (Late st Contact Info) Description 10/31/2020 4:00 PM CDT Office Visit [facility] [address] [phone] Sergo Reed MD Acute Note (c/o L ear pain); Ear Problem (patient states he has had this before, states he feels as if there is a very sharp pain in the ear and is unable to touch the ear, and then it goes away and comes back. Very infrequent. Discuss poss ENT referral. ) Social History Tobacco Use Types Packs/Day Years [...] Sign Reading Time Taken Comments Blood Pressure 122/84 10/31/2020 3:48 PM CDT Pulse 70 10/31/2020 3:48 PM CDT Temperature 36.7 ??C (98 ??F) 10/31/2020 3:48 PM CDT Respiratory Rate 18 10/31/2020 3:48 PM CDT Oxygen Saturation 98% 10/31/2020 3:48 PM CDT Inhaled Oxygen Concentration - - Weight 95.3 kg (210 lb 3.2 oz) 10/31/2020 3:48 P M CDT Height 180.3 cm (5' 11 ) 10/31/2020 3:48 PM CDT Body Mass Index 29.32 10/31/2020 3:48 PM CDT documented in this encounter Progress Notes * Sergo Reed MD - 10/31/2020 4:00 PM CDT Reason for Visit: Acute Note (c/o L ear pain) and Ear Problem (patient states he has had this before, states he feelsas if there is a very sharp pain in the ear and is unable to touch the ear, and then it goes away and comes back. Very infrequent. Discuss poss ENT referral. ) Filed Vitals: 10/31/20 1548 BP: 122/84 Pulse: 70 Resp: 18 Temp: 98 ??F (36.7 ??C) TempSrc: Temporal SpO2: 98% Weight: 95.3 kg (210 lb 3.2 oz) Height: 5' 11 (1.803 m) Body mass index is 29.32 kg/m??. History of Present Illness: HPI good afternoon office visit in Mr. Yosi Pineda placed in 35-year-old gentleman comes today as he did have some important pain in the earlobe the other day to the point that he did not want to even touch it is happening for few seconds and then he went away and he said that another episode like that happens in the past he denies any fever chills decreased hearing the only thing that is happening locally is he using the mask all the time when he works in when he goes out with his . He has been fully vaccinated for COVID-19. ROS: Review of Systems Constitutional: Negative. HENT: Negative. Earlobe pain without decreased hearing no visual disturbances no problems with chewing or deglutition Eyes: Negative. Respiratory: Negative. Cardiovascular: Negative. Medications: Current Outpatient Medications: ??? busPIRone 10 MG tablet, Take 5 mg by mouth 3 (three) times daily as needed., Disp: , Rfl: Allergies Allergen Reactions ??? Shellfish-Derived Products Swelling Patient states he is allergic to all shellfish and seafood. Past Medical History: Diagnosis Date ??? COVID-19 vaccine administered 2020 Pfizer Past Surgical History: Procedure Laterality Date ? ? HC I&D SKIN ABSCESS ??? REMOVAL OF SPERM DUCT(S) ??? TOOTH EXTRACTION 4 wisdom teeth Social History Socioeconomic History ??? Marital status: Spouse name: Not on file ??? Number of children: Not on file ??? Years of education: Not on file ??? Highest education level: Not on file Occupational History ??? Not on file Tobacco Use ??? Smoking status: Never Smoker ??? Smokeless tobacco: Never Used Substance and Sexual Activity ??? Alcohol use: Yes Comment: Occasional ??? Drug use: Never ??? Sexual activity: Yes Other Topics Concern ??? Not on file Social History Narrative ??? Not on file Social Determinants of Health Financial Resource Strain: ??? Difficulty of Paying Living Expenses: Food Insecurity: ??? Worried About Running Out of Food in the Last Year: ??? Ran Out of Food in the Last Year: Transportation Needs: ??? Lack of Transportation (Medical): ??? Lack of Transportation (Non-Medical): Physical Activity: ??? Days of Exercise per Week: ??? Minutes of Exercise per Session: Stress: ??? Feeling of Stress : Social Connections: ??? Frequency of Communication with Friends and Family: ??? Frequency of Social Gatherings with Friends and Family: ??? Attends Baptism Services: ??? Active Member of Clubs or Organizations: ??? Attends Club or Organization Meetings: ??? Marital Status: Intimate Partner Violence: ??? Fear of Current or Ex-Partner: ??? Emotionally Abused: ??? Physically Abused: ??? Sexually Abused: Family History Problem Relation Name Age of Onset ??? Heart Disease Father ??? Diabetes Father type 2 ??? Stroke Father Family Status Relation Name Status ??? Father (Not Specified) Physical Exam Constitutional: He appears well-developed and well-nourished. HENT: Right Ear: External ear normal. Nose: Nose normal. Mouth/Throat: Oropharynx is clear and moist. Examination of the tympanic membranes were normal however when I ask him to do the Valsalva maneuver he had a pop in the right ear and not in the left also I did not see a protrusion of the tympanic membrane during that time suggesting the possibility of some eustachian tube dysfunction Neck: No tracheal deviation present. No thyromegaly present. Cardiovascular: Normal rate and regular rhythm. Pulmonary/Chest: Effort normal and breath sounds normal. Musculoskeletal: Cervical back: Normal range of motion and neck supple. Lymphadenopathy: He has no cervical adenopathy. Assessment Encounter Diagnose(s) ICD-10-CM ICD-9-CM SNOMED CT(R) 1. Dysfunction of left eustachian tube H69.82 381.81 DYSFUNCTION OF LEFT EUSTACHIAN TUBE Plan so this time I recommended Flonase 2 sprays in each nostril once a day and see how he does in the next few days I also encouraged him to try to avoid the guidance of the mask in the left ear lobe that may be causing some nerve irritation since he refers no hearing loss or any problems in the examination of the external canal was completely normal did not able to reproduce the pain that he had. I told him that to try that for few weeks if the problem continues to let me know and I will refer him to see an ear nose and throat. Orders Placed This Encounter ??? busPIRone 10 MG tablet Follow up FU PRN SERGO REED MD 10/31/2020 4:11 PM documented in this encounter Plan of Treatment Not on file documented as of this encounter Visit Diagnoses Diagnosis Dysfunction of left eustachian tube- Primary Dysfunction of Eustachian tube documented in this encounter Care Teams Salvage Repairer Relationship Specialty Start Date End Date Preethi Hall APNP [address] [place] [address] PCP - General Nurse Practitioner Family 09/21/1911/12 documented as of this encounter
--- OUTSIDE RECORDS SUMMARY | 2024-03-30 23:34 | XMS_ITS | Encounter Summary ---
Author Organization [facility] Address [address] [place] [address]. [place], [place] [address] [place] [address] Care Team Providers Care Work Distributor Name Role Phone Preethi Hall Primary Care Provider [phone] Reason for Visit * Reason Comments Cough Since yesterday, non -productive Chest Pain Sharp pain to center of chest and in back since yesterday Earache Left x 2 weeks Encounter Details Date Type Department Care Team (Late st Contact Info) Description 05/13/2020 10:38 AM [facility] - 05/13/2020 12:06 PM [facility] Emergency [facility] Emergency Room [id number] [place] [address] Andre Herring PA [address] [place] [id number] Cough (Since yesterday, non-productive); Chest Pain (Sharp pain to center of chest and in back since yesterday); Earache (Left x 2 weeks) Discharge Disposition: Home or Self Care (Routine [...] have Coronavirus / COVID-19? No / Unsure 05/13/2020 10:32 AM [facility] documented as of this encounter Last Filed Vital Signs Vital Sign Reading Time Taken Comments Blood Pressure 140/77 05/13/2020 10:39 AM [facility] Pulse 91 05/13/2020 10:39 AM [facility] Temperature 36.6 ??C (97.8 ??F) 05/13/2020 10:[address] Respiratory Rate 18 05/13/2020 10:39 AM [facility] Oxygen Saturation 99% 05/13/2020 10:39 AM [facility] Inhaled Oxygen Concentration - - Weight 95.3 kg (210 lb) 05/13/2020 10:39 AM [facility] Height 180.3 cm (5' 11 ) 05/13/2020 10:39 AM [facility] Body Mass Index 29.29 05/13/2020 10:39 AM [facility]ICANE [facility]TER documented in this encounter Discharge Instructions * Discharge Instructions* GURINDER Benson - 05/13/2020 11:46 AM [facility] Use acxz-[id number]-[id number] ibuprofen or Tylenol as directed for body aches. Make sure to drink adequate amount of fluids throughout the day. We will notify you of test results you may also review test results using [employer]. Follow-up with your primary care provider in 5 to 7 days. Return emergency department symptoms worsen or new concerns. AL [facility]ICANE [facility]TER * Attachments The following attachments cannot be sent through Care Everywhere. * Cough, Runny Nose, and the Common Cold Discharge Instructions (Bahamian) documented in this encounter Medications at Time of Discharge guaiFENesin ER 600 MG 12 hr tablet Take 1 tablet (600 mg total) by mouth 2 (two) times daily. 28 tablet 05/13/2020 07/04/2020 documented as of this encounter Progress Notes * GURINDER Wallis - 05/13/2020 12:06 PM CST S/w pt regarding negative results. No concerns. Reiterated return precautions AL [facility]ICANE [facility]TER documented in this encounter ED Notes * GURINDER Benson - 05/13/2020 10:53 AM CST ED NOTE Chief Complaint Chief Complaint Patient presents with ??? Cough Since yesterday, non-productive ??? Chest Pain Sharp pain to center of chest and in back since yesterday ??? Earache Left x 2 weeks History of Present Illness 35-year-old male presenting to urgent care with complaint of cough x1 day. Patient states that yesterday started with some chest congestion. Does have pleuritic chest pain worsened when coughing taking deep breath. This also radiates to his back. No history of this in the past. Patient has also noted intermittent left ear discomfort over the past 2 weeks. Denies drainage from the ear. Denies difficulty breathing, lightheadedness, palpitations, nausea or vomiting. Medical History ALLERGIES: Allergies Allergen Reactions ??? Shellfish-Derived Products Swelling Patient states he is allergic to all shellfish and seafood. MEDICATIONS: Prior to Admission medications Medication Sig Start Date End Date Taking? Authorizing Provider guaiFENesin ER 600 MG 12 hr tablet Take 1 tablet (600 mg total) by mouth 2 (two) times daily. 05/13/20 Yes GURINDER Benson PAST MEDICAL HISTORY: History reviewed. No pertinent past medical history. PAST SURGICAL HISTORY: Past Surgical History: Procedure Laterality Date ? ? HC I&D SKIN ABSCESS ??? REMOVAL OF SPERM DUCT(S) ??? TOOTH EXTRACTION 4 wisdom teeth FAMILY HISTORY: Family History Problem Relation Name Age of Onset ??? Heart Disease Father ??? Diabetes Father type 2 ??? Stroke Father SOCIAL HISTORY: Social History Tobacco Use ??? Smoking status: Never Smoker ??? Smokeless tobacco: Never Used Substance Use Topics ??? Alcohol use: Yes ??? Drug use: Never Review of Systems Review of Systems Constitutional: Negative for activity change and appetite change. HENT: Negative for congestion, ear discharge, ear pain and sore throat. Respiratory: Positive for cough and chest tightness. Negative for shortness of breath. Cardiovascular: Negative for chest pain. Gastrointestinal: Negative for abdominal pain, nausea and vomiting. Musculoskeletal: Positive for back pain. Negative for neck pain. Neurological: Negative for dizziness, syncope and light-headedness. Physical Exam Filed Vitals: 05/13/20 1039 BP: 140/77 Pulse: 91 Resp: 18 Temp: 97.8 ??F (36.6 ??C) TempSrc: Temporal SpO2: 99% Weight: 95.3 kg (210 lb) Height: 5' 11 (1.803 m) Physical Exam Constitutional: He is oriented to person, place, and time. He appears well- developed and well-nourished. No distress. HENT: Head: Normocephalic. Right Ear: A middle ear effusion is present. Left Ear: A middle ear effusion is present. Nose: Nose normal. Mouth/Throat: Oropharynx is clear and moist. Eyes: Conjunctivae and EOM are normal. Neck: Normal range of motion. Neck supple. Cardiovascular: Normal rate, regular rhythm and normal heart sounds. Pulmonary/Chest: Effort normal and breath sounds normal. He exhibits tenderness (anterior midsternum). Abdominal: Soft. Bowel sounds are normal. There is no abdominal tenderness. Neurological: He is alert and oriented to person, place, and time. Skin: Skin is warm and dry. Psychiatric: He has a normal mood and affect. His behavior is normal. Judgment and thought content normal. Nursing note and vitals reviewed. 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 IMAGING STUDIES XR CHEST PA+LAT Final Result by User, [id number] (05/13 1150) TWO-VIEW CHEST RADIOGRAPH 05/13/2020: HISTORY: Cough. Chest pain. COMPARISON: None. IMPRESSION: No evidence of acute cardiopulmonary disease. Normal heart size and pulmonary vascularity. No consolidation or large pleural effusion. No pneumothorax. Slight thoracolumbar curve. Interpreted By: Josy Lin, 05/13/2020 11:45 AM ED Course / Medical Decision Making Chest x-ray with no acute abnormalities. EKG with no ischemic changes. Chest pain is reproducible with palpation and taking a deep breath. PERC negative. Covid swab is pending. Patient appears in no respiratory distress. No signs of hypoxia. Patient stable for outpatient follow-up. Medications - No data to display Clinical Impression Viral URI with cough (Primary) Chest congestion Current Discharge Medication List START taking these medications Details guaiFENesin ER 600 MG 12 hr tablet Take 1 tablet (600 mg total) by mouth 2 (two) times daily. Qty: 28 tablet, Refills: 0 Class: Eprescribe Pharmacy: [id number] [place] [address] (Ph #: [phone]) Disposition: Discharge Follow-Up: JOSE Danielson [address] [place] [address] Schedule an appointment as soon as possible for a visit in 1 week As needed GURINDER Benson 05/13/2020 GURINDER Benson 05/13/20 1153 Cosigned by Constanza Hartmann MD at 05/13/2020 12:43 PM [facility] AL [facility]ICANE H[facility]TER AL HURRICANE HUNTER * Kristopher Campo RN - 05/13/2020 10:46 AM CSTSummary: Cough/Chest Pain/Ear Pain Pt to ED via POV with c/o cough since yesterday, non-productive, also states sharp pain to center of chest rates at 6/10 and in back since yesterday, and ear pain to the left x 2 weeks [facility] documented in this encounter Plan of Treatment Not on file documented as of this encounter Procedures Procedure Name Priority Date/Time Associated Diagnosis Comments CORONAVIRUS (COVID-19) ANTIGEN DIRECT OPTICAL STAT 05/13/2020 12:00 PM [facility] XR CHEST PA+LAT STAT 05/13/2020 11:10 AM [facility] ECG 12-LEAD Routine 05/13/2020 11:03 AM [facility] documented in this encounter Results * CORONAVIRUS (COVID-19) ANTIGEN [RAPID IN HOUSE TEST] (05/13/2020 12:00 PM [facility]) CORONAVIRUS ANTIGEN IA NEGATIVE NEGATIVE 05/13/2020 12:25 PM [facility] Comment: NEGATIVE RESULTS DO NOT RULE OUT SARS-COV-2 INFECTION AND SHOULD NOT BE USED THE SOLE BASIS FOR TREATMENT OR PATIENT MANAGEMENT DECISIONS, INCLUDING INFECTION CONTROL DECISIONS. NEGATIVE RESULTS SHOULD BE CONSIDERED IN THE CONTEXT OF A PATIENT'S RECENT EXPOSURES, HISTORY AND THE PRESENCE OF CLINICAL SIGNS AND SYMPTOMS CONSISTENT WITH COVID 19. THIS TEST HAS BEEN AUTHORIZED BY THE FDA UNDER AN EMERGENCY USE AUTHORIZATION (EUA) FOR USE BY AUTHORIZED LABORATORIES. SPECIMEN TYPE NASAL 05/13/2020 12:06 PM [facility] FIRST TEST YES 05/13/2020 12:06 PM [facility] EMPLOYED IN HEALTHCARE NO 05/13/2020 12:06 PM [facility] SYMPTOMATIC DEFINED BY CDC YES 05/13/2020 12:06 PM [facility] DATE OF SYMPTOM ONSET 2020051205/13/2020 12:06 PM [facility] HOSPITALIZATION STATUS NO 05/13/2020 12:06 PM [facility] PATIENT IN ICU UNKNOWN 05/13/2020 12:08 PM [facility] RESIDENT OF [facility] NO 05/13/2020 12:06 PM [facility] Specimen from nose (specimen) NASAL STRUCTURE / Unknown 05/13/2020 12:00 PM [facility]TER Andre FAIRCHILD MICROBIOLOGY - GENERAL ORDE RABLES Final Result [facility] [address] [place] [address], * XR CHEST PA+LAT (05/13/2020 11:10 AM [facility]IC[facility]TER) Anatomical Region Laterality Modality Chest Radiographic Nella ging 05/13/2020 11:4 5 AM [facility] Impressions 05/13/2020 11:47 AM [facility]TER IMPRESSION: No evidence of acute cardiopulmonary disease. Normal heart size and pulmonary vascularity. No consolidation or large pleural effusion. No pneumothorax. Slight thoracolumbar curve. Interpreted By: Josy Lin, 05/13/2020 11:45 AM Narrative 05/13/2020 11:47 AM [facility] TWO-VIEW CHEST RADIOGRAPH 05/13/2020: HISTORY: Cough. Chest pain. COMPARISON: None. Procedure Note Kevin Lin MD - 05/13/2020 TWO-VIEW CHEST RADIOGRAPH 05/13/2020: HISTORY: Cough. Chest pain. COMPARISON: None. IMPRESSION: No evidence of acute cardiopulmonary disease. Normal heart size and pulmonary vascularity. No consolidation or large pleural effusion. No pneumothorax. Slight thoracolumbar curve. Interpreted By: Josy Lin, 05/13/2020 11:45 AM us Andre [facility] GENERAL IMAGING Final Resul t * ECG 12 lead (05/13/2020 11:03 AM [facility]ICANE [facility]TER) 05/13/2020 11:0 3 AM [facility]TER Narrative [facility] RAD - 05/14/2020 7:05 AM A[facility]RICANE H[facility]TER ?[facility] ? Test Date: ?2020-05-13 Pat Name: ? JORDYN PINEDA ? Department: ? Room: ? TG1TG1 Gender: ? Male ? 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 : ?1985 ? Requested By: ANDRE HERRING Order Number: [id number] ? Reading MD: ?? Dmitri Collins ? Measurements Intervals ?Round Top ? Rate: ? 85 ? P: ?28 SD: ? 171 ?QRS: ?-11 QRSD: ? 97 ? T: ?6 QT: ? 332 ? QTc: ?396 ? 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 RAD documented in this encounter Visit Diagnoses Diagnosis Viral URI with cough- Primary Acute upper respiratory infections of unspecified site Chest congestion Other symptoms involving respiratory system and chest documented in this encounter Additional Health Concerns Infection Onset Date Last Indicated Resolved Time COVID-19 Rule Out 05/13/2020 05/13/2020 05/13/2020 12:25 PM [facility] documented as of this encounter Care Teams Work Distributor Relationship Specialty Start Date End Date Preethi Hall APNP [address] [place] [address] PCP - General Nurse Practitioner Family 09/21/1911/12 documented as of this encounter
--- OUTSIDE RECORDS SUMMARY | 2024-03-30 23:34 | XMS_ITS | Encounter Summary ---
Author Organization [facility] Address [address] [place] [address]. [place], [place] [id number] [place] [address] Care Team Providers Care Box Storage Worker Name Role Phone Preethi Hall Primary Care Provider [phone] Encounter Details Date Type Department Care Team (Late st Contact Info) Description 07/04/2020 5:26 PM CDT - 07/04/2020 11:59 PM CDT Hospital Encounter [facility] [address] [place] [address] Sergo Brand MD Discharge Disposition: Home or Self Care (Routine [...] Procedure Name Priority Date/Time Associated Diagnosis Comments URINE BACTERIA CULTURE Routine 07/04/2020 5:26 PM CDT UTI symptoms documented in this encounter Results * CULTURE URINE (07/04/2020 5:26 PM CDT) SPEC DESCRIPTION URINE CLEAN CATCH 07/04/2020 5:26 PM CDT [facility] SPECIAL REQUESTS NO SPECIAL REQUEST 07/04/2020 5:26 PM CDT [facility] CULTURE RESULT NO GROWTH 2 DAYS 07/06/2020 7:56 AM CDT [facility] URINE SPECIMEN OBTAINED BY CLEAN CATCH PROCEDURE / Unknown 07/04/2020 5:26 PM CDT 07/04/2020 5:34 PM CDT us Sergo Brand MD MICROBIOLOGY - GENERAL O RDERABLES Final Result Performing Organization Address City/State/[facility] Co de Phone Number [facility] [address] [place] [address], [facility] [address] [place] [address], documented in this encounter Visit Diagnoses Diagnosis UTI symptoms documented in this encounter Care Teams Box Storage Worker Relationship Specialty Start Date End Date Preethi Hall APNP [address] [address] PCP - General Nurse Practitioner Family 09/21/19 806/05 documented as of this encounter
--- OUTSIDE RECORDS SUMMARY | 2024-03-30 23:34 | XMS_ITS | Encounter Summary ---
Author Organization [facility] Address [address] [place] [address]. [place], [place] [id number] [place] [address] Care Team Providers Care Federal Agent Name Role Phone Preethi Hall Primary Care Provider [phone] Reason for Referral * Audiology Exam (Routine) - Closed Specialty Diagnoses / Procedures Referred By Sugar espnial Referred To Contact AUDIOLOGY Diagnoses Sensorineural hearing loss (SNHL) of right ear, unspecified hearing status on contralateral side Preethi Hall APNP [address] [facility] [address] [place] [address] Phone: tel: fax: Referral ID Status Reason Start Date Expiration Date V isits Requested Visits Authorized [id number] Closed Specialty Services 09/23/2019 10/22/2020 1 1 * (Routine) - Closed Specialty Diagnoses / Procedures Referred By Sugar espinal Referred To Contact Diagnoses Infected epidermoid cyst Procedures Incision and Drainage Preethi Hall APNP [address] [facility] [address] [place] [address] Phone: tel: fax: Referral ID Status Reason Start Date Expiration Date Visits Re quested Visits Authorized [id number] Closed 09/23/2019 10/22/2020 1 1 Reason for Visit * Reason Comments Mass bump on back states he has had this for 8 years plus and recently has been growing and painful Hearing Problem Rt ear hearing disor tion (for a few months) , L ear is ringing and feels muffled -started today Encounter Details Date Type Department Care Team (Late st Contact Info) Description 09/21/2019 2:40 PM CDT Office Visit [facility] Family [facility] Internal Medicine [facility] [address] [place] [address] Preethi Hall, JOSE [address] [facility] [address] [place] [address] Mass (bump on back states he has had this for 8 years plus and recently has been growing and painful ); Hearing Problem (Rt ear hearing disortion (for a few months) , L ear is ringing and feels muffled -started today ) Social History Tobacco Use Types Packs/Day [...] Sign Reading Time Taken Comments Blood Pressure 126/84 09/21/2019 2:48 PM CDT Pulse 84 09/21/2019 2:48 PM CDT Temperature 36.6 ??C (97.8 ??F) 09/21/2019 2:48 PM CD T Respiratory Rate 16 09/21/2019 2:48 PM CDT Oxygen Saturation 98% 09/21/2019 2:48 PM CDT Inhaled Oxygen Concentration - - Weight 95.7 kg (211 lb) 09/21/2019 2:48 PM CDT Height 180.3 cm (5' 11 ) 09/21/2019 2:48 PM CDT Body Mass Index 29.43 09/21/2019 2:48 PM CDT documented in this encounter Progress Notes * JOSE Danielson - 09/21/2019 2:40 PM CDTAssociated Order(s): Incision and Drainage Post-Procedure Diagnose(s): Infected epidermoid cyst Images from the original note were not included. Reason for Visit: Mass (bump on back states he has had this for 8 years plus and recently has been growing and painful ) and Hearing Problem (Rt ear hearing disortion (for a few months) , L ear is ringing and feels muffled -started today ) History of Present Illness: Yosi Pineda is a 34-year-old male here to establish care and has a concern for right ear hearing problem and cyst on his back he thinks is infected. Cyst: notes this has been present for 8 years but in the past week or so has noted pain and concerns for infection. Denies fever/chills or drainage. Ear concern: has noted hearing double for the past 6 months and notes decreased hearing. Hx of miliary and loud noises. Denies drainage. ROS: Review of Systems Constitutional: Negative for appetite change, diaphoresis, fatigue and fever. HENT: Positive for hearing loss. Negative for congestion, ear discharge, ear pain, sore throat and trouble swallowing. Eyes: Negative for photophobia and discharge. Respiratory: Negative for cough, shortness of breath and wheezing. Cardiovascular: Negative for chest pain, palpitations and leg swelling. Gastrointestinal: Negative for abdominal pain. Genitourinary: Negative for dysuria. Musculoskeletal: Negative for gait problem. Skin: Negative for rash. Cyst, red and painful. Neurological: Negative for dizziness, syncope and weakness. Psychiatric/Behavioral: Negative for confusion. The patient is not nervous/anxious. Medications: Current Outpatient Medications: ??? cephALEXin (KEFLEX) 500 MG capsule, Take 1 capsule (500 mg total) by mouth 2 (two) times daily for 5 days., Disp: 10 capsule, Rfl: 0 Allergies Allergen Reactions ??? Shellfish-Derived Products Swelling [...] resource strain: Not on file ??? Food insecurity: Worry: Not on file Inability: Not on file ??? Transportation needs: Medical: Not on file Non-medical: Not on file Tobacco Use ??? Smoking status: Never Smoker ??? Smokeless tobacco: Never Used Substance and Sexual Activity ??? Alcohol use: Yes ??? Drug use: Never ??? Sexual activity: Yes Lifestyle ??? Physical activity: Days per week: Not on file Minutes per session: Not on file ??? Stress: Not on file Relationships ??? Social connections: Talks on phone: Not on file Gets together: Not on file Attends catholic service: Not on file Active member of club or organization: Not on file Attends meetings of clubs or organizations: Not on file Relationship status: Not on file ??? Intimate partner violence: Fear of current or ex partner: Not [...] time. He appears well- developed and well-nourished. HENT: Head: Normocephalic. Possible effusion noted, but generally unremarkable during exam. Able to ear well during exam. Neck: Normal range of motion. Cardiovascular: Normal rate, regular rhythm and normal heart sounds. No murmur heard. Pulmonary/Chest: Effort normal and breath sounds normal. Musculoskeletal: Normal range of motion. Neurological: He is alert and oriented to person, place, and time. Skin: Psychiatric: He has a normal mood and affect. His behavior is normal. Nursing note and vitals reviewed. Incision and Drainage Date/Time: 09/23/2019 2:50 PM Performed by: JOSE Danielson Authorized by: JOSE Danielson Type: cyst Body area: trunk Location details: back Anesthesia: local infiltration Anesthesia: Local Anesthetic: lidocaine 1% with epinephrine Anesthetic total: 2 mL Sedation: Patient sedated: no Scalpel size: 10 Needle gauge: 22 Incision type: single straight Complexity: simple Drainage: purulent and serosanguinous Drainage amount: moderate Wound treatment: wound left open Packing material: 1/4 in iodoform gauze and 1/4 in gauze Patient tolerance: Patient tolerated the procedure well with no immediate complications Comments: Betadine cleaned prior. Explained procedure to pt. Tolerated well. Pre procedure: 2.5cm x 2.5cm Post: 0 Filed Vitals: 09/21/19 1448 BP: 126/84 Pulse: 84 Resp: 16 Temp: 97.8 ??F (36.6 ??C) TempSrc: Oral SpO2: 98% Weight: 95.7 kg (211 lb) Height: 5' 11 (1.803 m) Diagnoses/Impression: 1. Infected epidermoid cyst cephALEXin (KEFLEX) 500 MG capsule 2. Sensorineural hearing loss (SNHL) of right ear, unspecified hearing status on contralateral sideAMB REFERRAL TO AUDIOLOGY Recommendations and Plan: 1. Infected epidermoid cyst Tolerated well. Pack for 2 days with gauze. Monitor for s/s of infection. Clean with mild soap and water. Abx sent for prevention. - cephALEXin (KEFLEX) 500 MG capsule; Take 1 capsule (500 mg total) by mouth 2 (two) times daily for 5 days. Dispense: 10 capsule; Refill: 0 2. Sensorineural hearing loss (SNHL) of right ear, unspecified hearing status on contralateral side Basic normal exam. Will refer to audiology for opinion. - AMB REFERRAL TO AUDIOLOGY F/u in 1 week. Orders Placed This Encounter ??? Incision and Drainage ??? Ambulatory referral to Audiology ??? cephALEXin (KEFLEX) 500 MG capsule JOSE Danielson Referring Provider: No ref. provider found PCP: JOSE Danielson documented in this encounter Plan of Treatment Scheduled Referrals Name Type Priority Associated Diagnoses Orde r Schedule Ambulatory referral to Audiology Referral Routine Sensorineural hearing loss (SNHL) of right ear, unspecified hearing status on contralateral side Ordered: 09/23/2019 documented as of this encounter Procedures Procedure Name Priority Date/Time Associated Diagnosis Comments INCISION AND DRAINAGE Routine 09/21/2019 2:40 PM CDT Infected epidermoid cyst documented in this encounter Results * Incision and Drainage (09/21/2019 2:40 PM CDT) Narrative Preethi Hall APNP - 09/21/2019 2:40 PM CDT JOSE Danielson ? 09/23/2019 ??2:55 PM Incision and Drainage Date/Time: 09/23/2019 2:50 PM Performed by: JOSE Danielson Authorized by: JOSE Danielson Type: cyst Body area: trunk Location details: back Anesthesia: local infiltration Anesthesia: Local Anesthetic: lidocaine 1% with epinephrine Anesthetic total: 2 mL Sedation: Patient sedated: no Scalpel size: 10 Needle gauge: 22 Incision type: single straight Complexity: simple Drainage: purulent and ??serosanguinous Drainage amount: moderate Wound treatment: wound left open Packing material: 1/4 in iodoform gauze and ??1/4 in gauze Patient tolerance: Patient tolerated the procedure well with no immediate complications Comments: Betadine cleaned prior. Explained procedure to pt. Tolerated well. Pre procedure: 2.5cm x 2.5cm Post: 0 Preethi GARCIA PROCEDURE/MINOR SURGICAL OR DERABLES Final Result documented in this encounter Visit Diagnoses Diagnosis Infected epidermoid cyst- Primary Sebaceous cyst Sensorineural hearing loss (SNHL) of right ear, unspecified hearing status on contralateral side documented in this encounter Care Teams Federal Agent Relationship Specialty Start Date End Date Preethi Hall APNP [id number] [address] PCP - General Nurse Practitioner Family 09/21/1911/12 documented as of this encounter
--- OUTSIDE RECORDS SUMMARY | 2024-03-30 23:34 | XMS_ITS | Encounter Summary ---
Author Organization [facility] Address [address] [place] [address]. [place], [place] [id number] [place] [address] Care Team Providers Care Impregnator Operator Name Role Phone Preethi Hall Primary Care Provider [phone] Encounter Details Date Type Department Care Team (Latest Contact Info) Description 08/28/2021 Travel Social History Tobacco Use Types Packs/Day [...] AM CDT documented as of this encounter Plan of Treatment Not on file documented as of this encounter Visit Diagnoses Not on filedocumented in this encounter Care Teams Impregnator Operator Relationship Specialty Start Date End Date Preethi Hall APNP [address] [place] [address] PCP - General Nurse Practitioner Family 09/21/19 8/06/05 documented as of this encounter
--- OUTSIDE RECORDS SUMMARY | 2024-03-30 23:34 | XMS_ITS | Encounter Summary ---
Author Organization [facility] Address [address] [place] [address]. [place], [place] [address] [place] [address] Care Team Providers Care Blankmaker Name Role Phone Preethi Hall Primary Care Provider [phone] Encounter Details Date Type Department Care Team (Latest Contact Info) Description 05/13/2020 Travel Social History Tobacco Use Types Packs/Day [...] COVID-19? 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
--- OUTSIDE RECORDS SUMMARY | 2024-03-30 23:35 | XMS_ITS | Encounter Summary ---
Author Organization [facility] Address [address] [place] [address] Care Team Providers Care Truck Car And Bus Cleaner Name Role Phone Unavailable Primary Care Provider Unavailabl e Encounter Details Date Type Department Care Team (Late st Contact Info) Description 07/07/2020 11:45 AM CDT Rapid Evaluation [place] [facility] Community Testing [facility] [address] [place], [place] [id number] Social History Tobacco Use Types Packs/Day Years Used Date Smoking Tobacco: Never Assessed Sex and Gender Information Value Date Recorded Sex Assigned at Not on file Legal Sex Male 11:13 AM CDT Gender Identity Not on file Sexual Orientation Not on file documented as of this encounter Plan of Treatment Not on file documented as of this encounter Visit Diagnoses Not on filedocumented in this encounter
--- OUTSIDE RECORDS SUMMARY | 2024-03-30 23:35 | XMS_ITS | Encounter Summary ---
Author Organization [facility] Address [address] [place] [address] Care Team Providers Care Fur Feeder Name Role Phone Unavailable Primary Care Provider Unavailabl e Encounter Details Date Type Department Care Team (Late st Contact Info) Description 07/07/2020 Lab Requisition [facility] Community Testing [facility] [address] [place], [place] [id number] Riccardo Finney MD [address] [place] [address] [address] [place] [address] Social History Tobacco Use Types Packs/Day Years [...] Procedure Name Priority Date/Time Associated Diagnosis Comments SARS-COV-2 PCR [facility] ONLY Routine 07/07/2020 11:28 AM CDT documented in this encounter Visit Diagnoses Not on filedocumented in this encounter
--- OUTSIDE RECORDS SUMMARY | 2024-03-30 23:35 | XMS_ITS | Clinical Summary ---
Author Organization [facility] Care Team Providers Care Therapeutic Specialist Name Role Phone Unavailable Primary Care Provider Unavailabl e Social History Tobacco Use Types Packs/Day Years Used Date Smoking Tobacco: Never Assessed Sex and Gender Information Value Date Recorded Sex Assigned at Not on file Legal Sex Male 11:13 AM CDT Gender Identity Not on file Sexual Orientation Not on file Plan of Treatment Health Maintenance Due Date Last Done Comments Hepatitis C Virus (HCV) Screening 1985 TdaP Immunization 1985 Hepatitis B Immunization (1 of 3 - 19+ 3-dose series) 01/28/2004 SARS-COV-2 Immunization ( season) 2022 Influenza Immunization (Seas on Ended) 2023 Meningococcal Immunization (ACWY) Aged Out No longer eligible based on patient's age to complete this topic Pneumococcal Immunization Combined Aged Out No longer eligible based on patient's age to complete this topic Rotavirus Immunization Aged Out No lo nger eligible based on patient's age to complete this topic
--- OUTSIDE RECORDS SUMMARY | 2024-03-31 00:49 | XMS_ITS | Continuity of Care Document ---
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 It does not include entries that were removed or entered in error. Problem Status Onset Date Problem Type Date of Resolution Comments Source Calculus of kidney Active 10/19/19 19 Condition DoD Pain in left ankle and joints of left foot Active 09/29/19 19 Condition DoD Pain in left leg Active 09/29/19 19 Condition DoD Pain in left knee Active 10/08/19 17 Condition DoD Allergic rhinitis Active Condition [facility] Chronic back pain Active Condition [facility] Exposure to potentially hazardous substance Active Condition [facility] Insomnia Active Condition [facility] Major depressive disorder Active Condition [facility] Obesity Active Condition [facility] Posttraumatic stress disorder Active Condition [facility] Sleep apnea Active Condition [facility] Steatosis of liver Active Condition [facility] dermatophytosis tinea cruris perianal area Active Condition [facility] Aftercare Active Condition DoD skin abscess Inactive Condition DoD Abdomen Mass (___ cm) Active Condition DoD abdominal abscess Inactive Condition DoD tendonitis shoulder Active Condition DoD epididymitis left Inactive Condition DoD testicular pain Active Condition DoD esophagitis Active Condition [facility] visit for: administrative purpose Inactive Condition DoD pharyngitis acute Inactive Condition DoD assessment of patient condition work-related Inactive Condition ASSESSMENT OF PATIENT CONDITION WORK-RELATED (INITIAL POST-DEPLOYME NT ASSESSMENT: DOCUMENTED ON [id number]): 27 y/o M 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 No complaints/co ncerns. No SI/HI. No s/s TBI/PTSD. 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 DoD visit for: services physical pre-deployment Inactive Condition DoD Need For Prophylactic Measure Inactive Condition DoD skin disorders Inactive Condition DoD pain in upper arms Active Condition [facility] limb pain Active Condition [facility] Other Physical Therapy Active Condition [facility] joint pain, localized in the right shoulder Active Condition [facility] urticaria Active Condition [facility] joint pain, localized in the shoulder Inactive Condition [facility] upper respiratory infection Inactive Condition [facility] visit for: services physical Inactive Condition [facility] lumbago Inactive Condition [facility] acute lymphadenitis inguinal left Inactive Condition [facility] lower back pain Inactive Condition [facility] astigmatism Inactive Condition Mild. Optional Rx given. [facility] Diagnosis: ICD-10-CM Z53.21 Proc/trtmt not crd out d/t pt lv bef seen by [facility] Active Diagnosis [facility] Diagnosis: ICD-10-CM G56.00 Carpal tunnel syndrome, unspecified upper limb Active Diagnosis [facility] Diagnosis: ICD-10-CM G56.03 Carpal tunnel syndrome, bilateral upper limbs Active Diagnosis [facility] Diagnosis: ICD-10-CM Z71.9 Counseling, unspecified Active Diagnosis [facility] Diagnosis: ICD-10-CM R07.9 Chest pain, unspecified Active Diagnosis [facility] Diagnosis: ICD-10-CM G47.00 Insomnia, unspecified Active Diagnosis [facility] Diagnosis: ICD-10-CM Z63.0 Problems in relationship with spouse or partner Active Diagnosis [facility] Diagnosis: ICD-10-CM R49.8 Other voice and resonance disorders Active Diagnosis [facility] Diagnosis: ICD-10-CM 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 Diagnosis: ICD-10-CM M25.50 Pain in unspecified joint Active Diagnosis [facility] Diagnosis: ICD-10-CM R05.3 Chronic cough Active Diagnosis [facility] Diagnosis: ICD-10-CM R05.9 Cough, unspecified Active Diagnosis [facility] Diagnosis: ICD-10-CM Z23 Encounter for immunization Active Diagnosis [facility] Diagnosis: ICD-10-CM M79.643 Pain in unspecified hand Active Diagnosis [facility] Diagnosis: ICD-10-CM F43.10 Post-traumatic stress disorder, unspecified Active Diagnosis [facility] Diagnosis: ICD-10-CM H60.92 Unspecified otitis externa, left ear Active Diagnosis [facility] Diagnosis: ICD-10-CM R94.5 Abnormal results of liver function studies Active Diagnosis [facility] Diagnosis: ICD-10-CM R05.2 Subacute cough Active Diagnosis [facility] Diagnosis: ICD-10-CM U07.1 COVID-19 Active Diagnosis [facility] Diagnosis: ICD-10-CM Z91.89 Oth personal risk factors, not elsewhere classified Active Diagnosis [facility] Diagnosis: ICD-10-CM F43.20 Adjustment disorder, unspecified Active Diagnosis [facility] Diagnosis: ICD-10-CM K76.0 Fatty (change of) liver, not elsewhere classified Active Diagnosis [facility] Diagnosis: ICD-10-CM G47.36 Sleep related hypoventilation in conditions classd elswhr Active Diagnosis [facility] Medications Combined list of outpatient medications from Department of Defense and [facility] Affairs facilities.Medications provided include 1) outpatient medications from the last 15 months, and 2) patient-reported medications. Medication Details Route Status Patient Instructions Prescription Expires Prescription Number Last Dispense Date Ordering Provider Order Date Order Qty Source ALBUTEROL SO4 90MCG/ACTUA T (CFC-F) INHL,ORAL,8 .5GM INHALE 2 PUFFS ORAL INHALATI ON FOUR TIMES A DAY NEEDED FOR ASTHMA SHAKE WELL. RINSE MOUTHPIE CE FREQUENT LY TO PREVENT CLOGGING . RESPIR ATORY (INHAL ATION) ACTIVE 10/14/2024 [id number] SERA NEGRETE RRI 2023 1 [facility] ALBUTEROL SO4 90MCG/ACTUA T (CFC-F) INHL,ORAL,8 .5GM INHALE 2 PUFFS ORAL INHALATI ON FOUR TIMES A DAY NEEDED FOR COUGH. SHAKE WELL. RINSE MOUTHPIE CE FREQUENT LY TO PREVENT CLOGGING . RESPIR ATORY (INHAL ATION) 08/13/2023 [id number] 4 AKHIL MORTON AMCYNDID T [address] [facility] AMOXICILLIN TRIHYDRATE 875MG/CLAVU LANATE K 125MG TAB TAKE 1 TABLET BY MOUTH TWICE A DAY TAKE WITH FOOD. TAKE UNTIL GONE UNLESS OTHERWIS E DIRECTED . ORAL ACTIVE 04/04/2024 [id number] INA MARINELLI L S 2023 14 [facility] Benzonatate (Tessalon Perle) Capsule Conventiona l 100 mg Oral TAKE ONE CAPSULE BY MOUTH THREE TIMES A DAY NEEDED Active 04/17/2024 [id number] 4 KIRIT LUDWIG D 2023 30 [facility] BENZONATATE 100MG CAP TAKE ONE CAPSULE BY MOUTH THREE TIMES A DAY NEEDED ORAL DISCONT INUED (EDIT) 04/17/2024 [id number] 4 WINNIE LUDWIG D 2023 30 [facility] BENZONATATE 200MG CAP TAKE ONE CAPSULE BY MOUTH THREE TIMES A DAY NEEDED FOR COUGH ORAL ACTIVE 03/17/2025 [id number] 4 SELENE,AKHIL VALADEZ T 2023 90 [facility] BENZONATATE 200MG CAP TAKE ONE CAPSULE BY MOUTH THREE TIMES A DAY NEEDED FOR COUGH ORAL DISCONT INUED 05/20/2024 [id number] 4 SELENEAKHIL T 2023 90 [facility] CETIRIZINE HCL 10MG TAB TAKE ONE TABLET BY MOUTH ONCE A DAY FOR ALLERGY SYMPTOMS ORAL 12/25/2023 [id number] 4 SELENEAKHIL T 2023 30 [facility] CETIRIZINE HCL 10MG TAB TAKE ONE TABLET BY MOUTH ONCE A DAY FOR ALLERGY SYMPTOMS ORAL 06/19/2023 [id number] SELENEAKHIL T 2023 14 [facility] DICLOFENAC NA 1% GEL,TOP APPLY 2 GM TO AFFECTED AREA(S) FOUR TIMES A DAY NEEDED FOR PAIN DO NOT EXCEED MORE THAN 16 GRAMS DAILY TO ANY LOWER EXTREMIT Y JOINT. NOT MORE THAN 8 GRAMS DAILY TO ANY UPPER EXTREMIT Y JOINT. MAX 32GM/DAY OVER ALL JOINTS. (MEASURE DOSE WITH RULER ATTACHED INSIDE BOX) TOPICMark Iglesias DISCONT INUED 02/08/2024 [id number] ANGEL BING 2023 100 [facility] DICLOFENAC NA 50MG TAB,EC TAKE ONE TABLET BY MOUTH EVERY MORNING AND EVENING FOR PAIN - TAKE WITH FOOD ORAL ACTIVE 02/03/2025 [id number] 4 [facility] 60 [facility] FLUTICASONE 250MCG/SALM ETEROL 50MCG INHL,ORAL,D ISKUS,60 INHALE 1 INHALATI ON ORAL INHALATI ON TWICE A DAY FOR ASTHMA (OPEN DISKUS; CLICK ONLY ONCE; MAY INHALE TWICE TO COMPLETE DOSE; CLOSE WHEN FINISHED ) RINSE MOUTH AND SPIT AFTER EACH USE. RESPIR ATORY (INHAL ATION) 01/12/2024 [id number] 4 SERA NEGRETE RRI 2023 3 [facility] GOV-NIRMATR ANNY 150MG X 2/RITONAVIR 100MG X 1 TAB,PACK,3 TAKE TABLETS BY MOUTH DIRECTED TAKE 2 NIRMATRE LVIR TABLETS AND 1 RITONAVI R TABLET (3 TABLETS TOTAL) IN THE MORNING AND IN THE EVENING FOR 5 DAYS ORAL 05/17/2023 [id number] 4 WINNIE LUDWIG D 2023 5 [facility] HC 1%/N-MYCIN 3.5MG/POLYM YX 18164PZI/ML SUSP,OTIC INSTILL 4 DROPS IN TO AFFECTED EAR(S) THREE TIMES A DAY FOR BACTERIA L EAR INFECTIO N (SHAKE WELL) AURICU LAR (OTIC) DISCONT INUED 12/25/2023 [id number] 4 [facility] AMMAD T 2023 10 [facility] HYDROCODONE 5MG/ACETAMI NOPHEN 325MG TAB TAKE ONE-HALF TABLET BY MOUTH EVERY 6 HOURS NEEDED FOR PAIN CAUTION: DO NOT EXCEED 4000MG PER DAY ACETAMIN OPHEN (APAP) FROM ALL MEDS. ORAL DISCONT INUED 02/08/2024 [id number] BING ORTIZ 2023 10 [facility] IBUPROFEN 400MG TAB TAKE ONE TABLET BY MOUTH FOUR TIMES A DAY NEEDED FOR PAIN TAKE WITH FOOD ORAL DISCONT INUED (EDIT) 06/19/2023 [id number] 4 AKHIL MORTON T [address] [facility] IBUPROFEN 600MG TAB TAKE ONE TABLET BY MOUTH THREE TIMES A DAY NEEDED FOR PAIN TAKE WITH FOOD ORAL 07/03/2023 [id number] 4 AKHIL MORTON T [address] [facility] MELATONIN 3MG CAP/TAB TAKE TWO CAP/TAB BY MOUTH AT BEDTIME FOR SLEEP MAY TAKE ONE ADDITION AL TABLET/C APSULE FOR A TOTAL OF 3 TABLETS/ CAPSULES IF NEEDED. ORAL 12/25/2023 [id number] 4 AKHIL MORTON [address] [facility] METHYLPREDN ISOLONE 4MG TAB DOSEPAK,21 TAKE TABLETS BY MOUTH DIRECTED TAKE 6 TABLETS BY MOUTH ON DAY ONE, THEN DECREASE BY ONE TABLET DAILY UNTIL GONE. TAKE WITH FOOD. ORAL DISCONT INUED 02/25/2024 [id number] 4 AKHIL MORTON [address] [facility] PANTOPRAZOL E NA 40MG TAB,EC TAKE ONE TABLET BY MOUTH EVERY MORNING BEFORE A MEAL FOR GASTROES OPHAGEAL REFLUX DISEASE TAKE 30 MINUTES BEFORE MEAL(S) ORAL ACTIVE 04/04/2024 [id number] 4 AKHIL MORTON T [address] [facility] PANTOPRAZOL E NA 40MG TAB,EC TAKE ONE TABLET BY MOUTH EVERY MORNING BEFORE A MEAL TAKE 30 MINUTES BEFORE MEAL(S) ORAL DISCONT INUED 03/14/2024 [id number] 4 SERA NEGRETE RRI 2023 60 [facility] PREDNISONE 20MG TAB TAKE ONE TABLET BY MOUTH EVERY MORNING TAKE WITH FOOD OR MILK. ORAL DISCONT INUED 02/21/2024 [id number] 4 JOSE HILARIO DHManan [address] [facility] PREDNISONE 20MG TAB TAKE ONE TABLET BY MOUTH EVERY MORNING FOR CARPAL TUNNEL TAKE WITH FOOD OR MILK. ORAL DISCONT INUED 02/08/2024 [id number] BING ORTIZ 2023 10 [facility] TRAZODONE HCL 100MG TAB TAKE ONE-HALF TABLET BY MOUTH AT BEDTIME FOR SLEEP ORAL ACTIVE 05/25/2024 [id number] 4 AKHIL MORTON AMMAD T [address] [facility] Allergies, Adverse Reactions, Alerts Combined list of allergies from 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 It does not include entries that were removed or entered in error. Substance Category Reaction Severity Reaction type Status Date Reported Comments Source OTHER Drug allergy (disorder) Unknown active 3 [facility] OTHER Drug allergy (disorder) active 6 [facility] SHELLFISH Propensity to adverse reactions to food (finding) Urticaria, Swelling SEVERE active 1 [facility] Immunizations Combined list of available immunizations from the 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 Immunization Series Date Given Administered By Site Reaction Lot Number CVX Code Drug Plant Specialist Status Comments Source INFLUENZA, SPLIT VIRUS, TRIVALENT, PF 2023 HARPER ROBERT RIGHT DELTO ID [id number] 140 complet ed [facility] COVID-19 (PFIZER), MRNA, LNP-S, BIVALENT BOOSTER, PF, 30 MCG/0.3 ML DOSE 1 2021 [facility] MORRISON LEFT DELTO ID [id number] [address] [facility] COVID-19 (Moxie), MRNA, LNP-S, PF, 30 MCG/0.3 ML DOSE 3 2020 208 complet ed PFR; [id number]; [address] [facility] TDAP 2020 [address] [facility] COVID-19 (PFIZER), MRNA, LNP-S, PF, 30 MCG/0.3 ML DOSE 2 2020 208 complet ed PFR; [id number]; 1 [facility] COVID-19 (PFIZER), MRNA, LNP-S, PF, 30 MCG/0.3 ML DOSE 1 2020 208 complet ed PFR; [id number]; 1 [facility] Influenza, injectable, quadrivalent, preservative free 15 2018 [id number] 150 [employer] (SEQ) complet ed Influenza , injectabl e, quadrival ent, preservat pérez free DoD Influenza, injectable, quadrivalent, preservative free 1 2017 [id number] 150 [employer] (SEQ) complet ed Influenza , injectabl e, quadrival ent, preservat pérez free [facility] measles virus vaccine 0 2017 05 () Not Given measles virus vaccine DoD rubella virus vaccine 0 2017 06 () Not Given rubella virus vaccine DoD mumps virus vaccine 0 2017 07 () Not Given mumps virus vaccine DoD poliovirus vaccine, inactivated 2 2017 [id number] 10 Sanofi Pasteur (PMC) complet ed polioviru s vaccine, inactivat ed DoD anthrax vaccine 6 2017 [id number] 24 [facility] [employer] [place] ([facility]) complet ed anthrax vaccine DoD typhoid Vi capsular polysaccharid e vaccine 3 2017 [id number] 101 Sanofi Pasteur (PMC) complet ed typhoid Vi capsular polysacch aride vaccine DoD Influenza, injectable, quadrivalent, preservative free 13 2016 [id number] 150 [employer] (SKB) complet ed Influenza , injectabl e, quadrival ent, preservat pérez free DoD Influenza, seasonal, injectable, preservative free 12 2015 [id number] 140 [employer] (SEQ) comple t ed Influenza , seasonal, injectabl e, preservat pérez free [facility] influenza, live, intranasal, quadrivalent 11 2014 [id number] 149 Med[employer] Inc[employer] (MED) complet ed influenza , live, intranasa l, quadrival ent DoD influenza, live, intranasal, quadrivalent 10 2013 [id number] 149 [facility] complet ed influenza , live, intranasa l, quadrival ent DoD influenza, live, intranasal, quadrivalent 9 2012 [id number] 149 [facility] ([facility]) complet ed influenza , live, intranasa l, quadrival ent DoD Influenza, seasonal, injectable 8 2011 [id number] 141 Sanofi Pasteur ([facility]) complet ed Influenza , seasonal, injectabl e DoD anthrax vaccine 5 2011 [id number] 24 [employer] [place] ([facility]) complet ed anthrax vaccine DoD typhoid Vi capsular polysaccharid e vaccine 1 2011 [id number] 101 Sanofi Pasteur ([facility]) complet ed typhoid Vi capsular polysacch aride vaccine DoD Influenza, seasonal, injectable 1 2010 [id number] 141 Sanofi Pasteur ([facility]) complet ed Influenza , seasonal, injectabl e DoD anthrax vaccine 4 2010 [id number] 24 [employer] [place] ([facility]) complet ed anthrax vaccine DoD anthrax vaccine 3 2010 [id number] 24 [employer] [place] ([facility]) complet ed anthrax vaccine DoD influenza virus vaccine, split virus (incl. purified surface antigen)-reti red CODE 1 2009 [id number] 15 [facility] [employer] (CSL) complet ed influenza virus vaccine, split virus (incl. purified surface antigen)- retired CODE DoD anthrax vaccine 2 2009 [id number] 24 [employer] [place] ([facility]) complet ed anthrax vaccine DoD tetanus toxoid, reduced diphtheria toxoid, and acellular pertu is vaccine, adsorbed 1 2009 [id number] 115 [employer] (SKB) complet ed tetanus toxoid, reduced diphtheri a toxoid, and acellular pertussis vaccine, adsorbed DoD vaccinia (smallpox) vaccine 2 2009 VV04-00 3A [facility]) complet ed vaccinia (smallpox ) vaccine DoD anthrax vaccine 1 2009 [id number] 24 [employer] [place] ([facility]) complet ed anthrax vaccine DoD vaccinia (smallpox) vaccine 1 2009 VV04-00 3A 75 [facility] ([facility]) complet ed vaccinia (smallpox ) vaccine DoD typhoid Vi capsular polysaccharid e vaccine 1 2009 [id number] 101 Sanofi Pasteur ([facility]) complet ed typhoid Vi capsular polysacch aride vaccine DoD Novel influenza-H1N 1-09, injectable 1 2009 127 () complet ed Novel influenza -D1B0-90, injectabl e DoD influenza virus vaccine, live, attenuated, for intranasal use 1 2008 [id number] 111 [employer] (MED) complet ed influenza virus vaccine, live, attenuate d, for intranasa l use DoD influenza virus vaccine, live, attenuated, for intranasal use 1 2007 [id number] 111 [employer] (MED) complet ed influenza virus vaccine, live, attenuate d, for intranasa l use DoD influenza virus vaccine, live, attenuated, for intranasal use 1 2006 [id number] 111 [employer] (MED) complet ed influenza virus vaccine, live, attenuate d, for intranasa l use DoD influenza virus vaccine, split virus (incl. purified surface antigen)-reti red CODE 1 2006 [id number] 15 Sanofi Pasteur ([facility]) complet ed influenza virus vaccine, split virus (incl. purified surface antigen)- retired CODE DoD hepatitis A and hepatitis B vaccine 3 2006 [id number] 104 [employer] (SKB) complet ed hepatitis A and hepatitis B vaccine DoD hepatitis A and hepatitis B vaccine 2 2005 [id number] 104 [employer] (SKB) complet ed hepatitis A and hepatitis B vaccine DoD measles, mumps and rubella virus vaccine 1 2005 03 () Not Given measles, mumps and rubella virus vaccine DoD varicella virus vaccine 1 2005 21 () Not Given varicella virus vaccine DoD hepatitis A and hepatitis B vaccine 1 2005 [id number] 104 [employer] (SKB) complet ed hepatitis A and hepatitis B vaccine DoD tetanus and diphtheria toxoids, adsorbed, preservative free, for adult use (2 Lf of tetanus toxoid and 2 Lf of diphtheria toxoid) 1 2005 [id number] 09 Sanofi Pasteur (PMC) complet ed tetanus and diphtheri a toxoids, adsorbed, preservat pérez free, for adult use (2 Lf of tetanus toxoid and 2 Lf of diphtheri a toxoid) [facility] poliovirus vaccine, inactivated 1 2005 [id number] 10 Sanofi Pasteur (PMC) complet ed polioviru s vaccine, inactivat ed DoD influenza virus vaccine, split virus (incl. purified surface antigen)-reti red CODE 1 2005 [id number] 15 Sanofi Pasteur (PMC) complet ed influenza virus vaccine, split virus (incl. purified surface antigen)- retired CODE DoD meningococcal polysaccharid e (groups A, C, Y and W-135) diphtheria toxoid conjugate vaccine (MCV4P) 1 2005 [id number] 114 Sanofi Pasteur (PMC) complet ed meningoco ccal polysacch aride (groups A, C, Y and W-135) diphtheri a toxoid conjugate vaccine (MCV4P) DoD Results Combined list of recent chemistry, hematology and other laboratory results from Department of Defense and Veterans Affairs, ranging from 15 months to all on record, depending upon the facility. Order Name Results Value Reference Range Date Interpretation Specimen Comments Source COMPREHE NSIVE METABOLI C PANEL CREATININE [MASS/VOLU ME] IN SERUM OR PLASMA 1.00 mg/dL 0.7 - 1.3 03/21 Specimen Type: PLASMA Comment: No hemolysis noted. Ordering Provider: REMINGTON BROWN Report Released Date/Time: Mar 21, 2024 12:23 PM Reporting Lab: [facility] [address] [facility] [address] Performing Lab: [facility] [address] [facility] [address] [facility] COMPREHE NSIVE METABOLI C PANEL UREA NITROGEN [MASS/VOLU ME] IN SERUM OR PLASMA 18.1 mg/dL 9.0 - 25.0 03/21 Specimen Type: PLASMA Comment: No hemolysis noted. Ordering Provider: REMINGTON BROWN Report Released Date/Time: Mar 21, 2024 12:23 PM Reporting Lab: [facility] [address] [facility] [address] Performing Lab: [facility] [address] [facility] [address] [facility] COMPREHE NSIVE METABOLI C PANEL GLUCOSE [MASS/VOLU ME] IN SERUM OR PLASMA 105 mg/dL 72 - 99 03/21 H Specimen Type: PLASMA Comment: No hemolysis noted. Ordering Provider: REMINGTON BROWN Report Released Date/Time: Mar 21, 2024 12:23 PM Reporting Lab: [facility] [address] [facility] [address] Performing Lab: [place] [address] [address] [facility] [address] [facility] COMPREHE NSIVE METABOLI C PANEL SODIUM [MOLES/VOL UME] IN SERUM OR PLASMA 136 meq/L 136 - 145 03/21 Specimen Type: PLASMA Comment: No hemolysis noted. Ordering Provider: REMINGTON BROWN Report Released Date/Time: Mar 21, 2024 12:23 PM Reporting Lab: [facility] [facility] [address] Performing Lab: [place] [address] [address] [facility] [address] [facility] COMPREHE NSIVE METABOLI C PANEL POTASSIUM [MOLES/VOL UME] IN SERUM OR PLASMA 4.2 meq/L 3.5 - 5 03/21 Specimen Type: PLASMA Comment: No hemolysis noted. Ordering Provider: REMINGTON BROWN Report Released Date/Time: Mar 21, 2024 12:23 PM Reporting Lab: [facility] [address] [facility] [address] Performing Lab: [facility] [address] [place] [address] [facility] COMPREHE NSIVE METABOLI C PANEL CHLORIDE [MOLES/VOL UME] IN SERUM OR PLASMA 102 meq/L 98 - 107 03/21 Specimen Type: PLASMA Comment: No hemolysis noted. Ordering Provider: REMINGTON BROWN Report Released Date/Time: Mar 21, 2024 12:23 PM Reporting Lab: [facility] [address] [facility] [address] Performing Lab: [facility] [address] [facility] [address] [facility] COMPREHE NSIVE METABOLI C PANEL CARBON DIOXIDE, TOTAL [MOLES/VOL UME] IN SERUM OR PLASMA 23 meq/L 22 - 31 03/21 Specimen Type: PLASMA Comment: No hemolysis noted. Ordering Provider: REMINGTON BROWN Report Released Date/Time: Mar 21, 2024 12:23 PM Reporting Lab: [facility] [address] [place] [phone] Performing Lab: [facility] [address] [facility] [address] [facility] COMPREHE NSIVE METABOLI C PANEL CALCIUM [MASS/VOLU ME] IN SERUM OR PLASMA 9.7 mg/dL 8.4 - 10.4 03/21 Specimen Type: PLASMA Comment: No hemolysis noted. Ordering Provider: REMINGTON BROWN Report Released Date/Time: Mar 21, 2024 12:23 PM Reporting Lab: [facility] [address] [facility] [address] Performing Lab: [facility] [address] [facility] [address] [facility] COMPREHE NSIVE METABOLI C PANEL PROTEIN [MASS/VOLU ME] IN SERUM OR PLASMA 9.6 g/dL 6 - 8.6 03/21 H Specimen Type: PLASMA Comment: No hemolysis noted. Ordering Provider: REMINGTON BROWN Report Released Date/Time: Mar 21, 2024 12:23 PM Reporting Lab: [facility] [address] [facility] [address] Performing Lab: [facility] [address] [facility] [address] [facility] COMPREHE NSIVE METABOLI C PANEL ALBUMIN [MASS/VOLU ME] IN SERUM OR PLASMA 3.4 g/dL 3.4 - 5 03/21 Specimen Type: PLASMA Comment: No hemolysis noted. Ordering Provider: REMINGTON BROWN Report Released Date/Time: Mar 21, 2024 12:23 PM Reporting Lab: [facility] [address] [place] [address] Performing Lab: [address] [phone] [place] [address] COMPREHE NSIVE METABOLI C PANEL BILIRUBIN. TOTAL [MASS/VOLU ME] IN SERUM OR PLASMA 1.1 mg/dL 0.2 - 1.2 03/21 Specimen Type: PLASMA Comment: No hemolysis noted. Ordering Provider: REMINGTON BROWN Report Released Date/Time: Mar 21, 2024 12:23 PM Reporting Lab: [address] [address] Performing Lab: [address] [address] [facility] COMPREHE NSIVE METABOLI C PANEL ALKALINE PHOSPHATAS E [ENZYMATIC ACTIVITY/V OLUME] IN SERUM OR PLASMA 109 U/L 40 - 150 03/21 Specimen Type: PLASMA Comment: No hemolysis noted. Ordering Provider: REMINGTON BROWN Report Released Date/Time: Mar 21, 2024 12:23 PM Reporting Lab: [address] [address] Performing Lab: [address] [address] [facility] COMPREHE NSIVE METABOLI C PANEL ASPARTATE AMINOTRANS FERASE [ENZYMATIC ACTIVITY/V OLUME] IN SERUM OR PLASMA 48 U/L 5 - 34 03/21 H Specimen Type: PLASMA Comment: No hemolysis noted. Ordering Provider: REMINGTON BROWN Report Released Date/Time: Mar 21, 2024 12:23 PM Reporting Lab: [address] [address] Performing Lab: [address] [address] [facility] COMPREHE NSIVE METABOLI C PANEL ALANINE AMINOTRANS FERASE [ENZYMATIC ACTIVITY/V OLUME] IN SERUM OR PLASMA 37 U/L 8 - 40 03/21 Specimen Type: PLASMA Comment: No hemolysis noted. Ordering Provider: REMINGTON BROWN Report Released Date/Time: Mar 21, 2024 12:23 PM Reporting Lab: [address] [address] Performing Lab: [address] [phone] COMPREHE NSIVE METABOLI C PANEL GLOMERULAR FILTRATION RATE/1.73 SQ M.PREDICTE D [VOLUME RATE/AREA] IN SERUM, PLASMA OR BLOOD BY CREATININE -BASED FORMULA (CKD-EPI 2020) 98.2 60 03/21 Specimen Type: PLASMA Comment: No hemolysis noted. Ordering Provider: REMINGTON BROWN Report Released Date/Time: Mar 21, 2024 12:23 PM Reporting Lab: [address] [address] Performing Lab: [place] [phone] [place] [address] CBC LEUKOCYTES [#/VOLUME] IN BLOOD BY AUTOMATED COUNT 7.2 10*3/uL 3.6 - 11.2 03/21 Specimen Type: BLOOD No comment entered. Ordering Provider: REMINGTON BROWN Report Released Date/Time: Mar 21, 2024 12:23 PM Reporting Lab: [address] [address] Performing Lab: [address] [place] [address] CBC ERYTHROCYT ES [#/VOLUME] IN BLOOD BY AUTOMATED COUNT 4.24 10*6/uL 4.10 - 5.70 03/21 Specimen Type: BLOOD No comment entered. Ordering Provider: ALBARCHA,BA SSAM Report Released Date/Time: Mar 21, 2024 12:23 PM Reporting Lab: [address] [address] Performing Lab: [address] [address] [facility] CBC HEMOGLOBIN [MASS/VOLU ME] IN BLOOD 11.1 g/dL 13.1 - 16.8 03/21 L Specimen Type: BLOOD No comment entered. Ordering Provider: REMINGTON BROWNM Report Released Date/Time: Mar 21, 2024 12:23 PM Reporting Lab: [address] [address] Performing Lab: [address] [address] [facility] CBC HEMATOCRIT [VOLUME FRACTION] OF BLOOD 33.9 38.2 - 48.4 03/21 L Specimen Type: BLOOD No comment entered. Ordering Provider: REMINGTON BROWN Report Released Date/Time: Mar 21, 2024 12:23 PM Reporting Lab: [address] [address] Performing Lab: [address] [address] [facility] CBC MCV [ENTITIC VOLUME] BY AUTOMATED COUNT 80.0 fL 80.0 - 100.0 03/21 Specimen Type: BLOOD No comment entered. Ordering Provider: REMINGTON BROWN Report Released Date/Time: Mar 21, 2024 12:23 PM Reporting Lab: [address] [address] Performing Lab: [address] [address] [facility] CBC MCH [ENTITIC MASS] BY AUTOMATED COUNT 26.2 pg 27.0 - 34.0 03/21 L Specimen Type: BLOOD No comment entered. Ordering Provider: REMINGTON BROWN Report Released Date/Time: Mar 21, 2024 12:23 PM Reporting Lab: [place] [address] [address] [facility] [address] Performing Lab: [address] [address] [facility] CBC MCHC [MASS/VOLU ME] BY AUTOMATED COUNT 32.7 g/dL 33.0 - 36.0 03/21 L Specimen Type: BLOOD No comment entered. Ordering Provider: REMINGTON BROWN Report Released Date/Time: Mar 21, 2024 12:23 PM Reporting Lab: [address] [address] Performing Lab: [address] [address] [facility] CBC PLATELETS [#/VOLUME] IN BLOOD BY AUTOMATED COUNT 352 10*3/uL 150 - 400 03/21 Specimen Type: BLOOD No comment entered. Ordering Provider: REMINGTON BROWN Report Released Date/Time: Mar 21, 2024 12:23 PM Reporting Lab: [address] [address] Performing Lab: [address] [address] [facility] CBC PLATELET MEAN VOLUME [ENTITIC VOLUME] IN BLOOD BY AUTOMATED COUNT 10.0 fL 7.5 - 11.2 03/21 Specimen Type: BLOOD No comment entered. Ordering Provider: REMINGTON BROWN Report Released Date/Time: Mar 21, 2024 12:23 PM Reporting Lab: [place] [address] [address] [facility] [address] Performing Lab: [address] [address] [facility] CBC ERYTHROCYT E DISTRIBUTI ON WIDTH [RATIO] BY AUTOMATED COUNT 13.4 11.8 - 15.1 03/21 Specimen Type: BLOOD No comment entered. Ordering Provider: ALBARCHA,BA SSAM Report Released Date/Time: Mar 21, 2024 12:23 PM Reporting Lab: [facility] [address] [facility] [address] Performing Lab: [facility] [address] [facility] [address] [facility] CBC LYMPHOCYTE S/100 LEUKOCYTES IN BLOOD BY AUTOMATED COUNT 17 03/21 Specimen Type: BLOOD No comment entered. Ordering Provider: REMINGTON BROWNM Report Released Date/Time: Mar 21, 2024 12:23 PM Reporting Lab: [facility] [address] [facility] [address] Performing Lab: [facility] [address] [facility] [address] [facility] CBC MONOCYTES/ 100 LEUKOCYTES IN BLOOD BY AUTOMATED COUNT 7 03/21 Specimen Type: BLOOD No comment entered. Ordering Provider: REMINGTON BROWN SSAM Report Released Date/Time: Mar 21, 2024 12:23 PM Reporting Lab: [facility] [address] [facility] [address] Performing Lab: [facility] [address] [facility] [address] [facility] CBC NEUTROPHIL S/100 LEUKOCYTES IN BLOOD BY AUTOMATED COUNT 74 03/21 Specimen Type: BLOOD No comment entered. Ordering Provider: REMINGTON BROWN Report Released Date/Time: Mar 21, 2024 12:23 PM Reporting Lab: [facility] [address] [facility] [address] Performing Lab: [facility] [address] [facility] [address] [facility] CBC EOSINOPHIL S/100 LEUKOCYTES IN BLOOD BY AUTOMATED COUNT 2 03/21 Specimen Type: BLOOD No comment entered. Ordering Provider: REMINGTON BROWNM Report Released Date/Time: Mar 21, 2024 12:23 PM Reporting Lab: [facility] [address] [facility] [address] Performing Lab: [facility] [address] [facility] [address] [facility] CBC BASOPHILS/ 100 LEUKOCYTES IN BLOOD BY AUTOMATED COUNT 0 03/21 Specimen Type: BLOOD No comment entered. Ordering Provider: REMINGTON BROWN Report Released Date/Time: Mar 21, 2024 12:23 PM Reporting Lab: [address] [address] Performing Lab: [address] [address] [facility] CBC LYMPHOCYTE S [#/VOLUME] IN BLOOD BY AUTOMATED COUNT 1.22 10*3/uL 0.77 - 4.50 03/21 Specimen Type: BLOOD No comment entered. Ordering Provider: REMINGTON BROWNM Report Released Date/Time: Mar 21, 2024 12:23 PM Reporting Lab: [address] [address] Performing Lab: [address] [address] [facility] CBC MONOCYTES [#/VOLUME] IN BLOOD BY AUTOMATED COUNT 0.48 10*3/uL 0.19 - 0.80 03/21 Specimen Type: BLOOD No comment entered. Ordering Provider: REMINGTON BROWN Report Released Date/Time: Mar 21, 2024 12:23 PM Reporting Lab: [address] [address] Performing Lab: [address] [address] [facility] CBC NEUTROPHIL S [#/VOLUME] IN BLOOD BY AUTOMATED COUNT 5.34 10*3/uL 2.10 - 8.00 03/21 Specimen Type: BLOOD No comment entered. Ordering Provider: REMINGTON BROWN Report Released Date/Time: Mar 21, 2024 12:23 PM Reporting Lab: [address] [address] Performing Lab: [address] [address] [facility] CBC EOSINOPHIL S [#/VOLUME] IN BLOOD BY AUTOMATED COUNT 0.13 10*3/uL 0.00 - 0.60 03/21 Specimen Type: BLOOD No comment entered. Ordering Provider: REMINGTON BROWN Report Released Date/Time: Mar 21, 2024 12:23 PM Reporting Lab: [address] [address] Performing Lab: [address] [address] [facility] CBC BASOPHILS [#/VOLUME] IN BLOOD BY AUTOMATED COUNT 0.01 10*3/uL 0.00 - 0.20 03/21 Specimen Type: BLOOD No comment entered. Ordering Provider: REMINGTON BROWN Report Released Date/Time: Mar 21, 2024 12:23 PM Reporting Lab: [place] [phone] Performing Lab: [address] [phone] [address] TROPONIN I TROPONIN I.CARDIAC [MASS/VOLU ME] IN SERUM OR PLASMA <0.010ng /mL 0 - 0.033 03/05 Specimen Type: PLASMA No comment entered. Ordering Provider: MUKESH MARINELLI Report Released Date/Time: Mar 05, 2024 11:04 AM Reporting Lab: [place] [phone] Performing Lab: [address] [phone] RESPIRAT ORY PCR PANEL ADENOVIRUS DNA [PRESENCE] IN NASOPHARYN X BY GALLITO WITH NON-PROBE DETECTION Not Detected 03/05 Specimen Type: NASOPHARYNX Comment: The FilmArray RP Panel combines nested multiplex PCR and DNA melting analysis for the simultaneou s qualitative detection and identificat ion of multiple respiratory viral and bacterial nucleic acids. A negative result does not preclude infection with the agent(s) tested and should not be used as the sole basis for treatment or other patient management decisions. Detection of organism target(s) does not imply that the correspondi ng organisms are infectious or are the causative agents for clinical symptoms. Results from this test must be correlated with the clinical history, epidemiolog ical data, and other data available to the clinician evaluating the patient. [email or web address]Hill BiopharmaKelly Skinner, ([phone]) Ordering Provider: MUKESH MARINELLI Report Released Date/Time: Mar 05, 2024 09:39 AM Reporting Lab: [facility] [address] [facility] [address] Performing Lab: [place] [address] [address] [facility] [address] [facility] RESPIRAT ORY PCR PANEL HUMAN CORONAVIRU S HKU1 RNA [PRESENCE] IN NASOPHARYN X BY GALLITO WITH NON-PROBE DETECTION Not Detected 03/05 Specimen Type: NASOPHARYNX Comment: The P2P-Next RP Panel combines nested multiplex PCR and DNA melting analysis for the simultaneou s qualitative detection and identificat ion of multiple respiratory viral and bacterial nucleic acids. A negative result does not preclude infection with the agent(s) tested and should not be used as the sole basis for treatment or other patient management decisions. Detection of organism target(s) does not imply that the correspondi ng organisms are infectious or are the causative agents for clinical symptoms. Results from this test must be correlated with the clinical history, epidemiolog ical data, and other data available to the clinician evaluating the patient. [email or web address]Kelly Skinner, ([phone]) Ordering Provider: MUKESH MARINELLI Report Released Date/Time: Mar 05, 2024 09:39 AM Reporting Lab: [facility] [address] [facility] [address] Performing Lab: [place] [address] [address] [facility] [address] [facility] RESPIRAT ORY PCR PANEL HUMAN CORONAVIRU S NL63 RNA [PRESENCE] IN NASOPHARYN X BY GALLITO WITH NON-PROBE DETECTION Not Detected 03/05 Specimen Type: NASOPHARYNX Comment: The FilmArray RP Panel combines nested multiplex PCR and DNA melting analysis for the simultaneou s qualitative detection and identificat ion of multiple respiratory viral and bacterial nucleic acids. A negative result does not preclude infection with the agent(s) tested and should not be used as the sole basis for treatment or other patient management decisions. Detection of organism target(s) does not imply that the correspondi ng organisms are infectious or are the causative agents for clinical symptoms. Results from this test must be correlated with the clinical history, epidemiolog ical data, and other data available to the clinician evaluating the patient. [employer], ([phone]) Ordering Provider: MUKESH MARINELLI Report Released Date/Time: Mar 05, 2024 09:39 AM Reporting Lab: [place] [address] [address] [facility] [address] Performing Lab: [facility] [address] [facility] [address] [facility] RESPIRAT ORY PCR PANEL HUMAN CORONAVIRU S 229E RNA [PRESENCE] IN NASOPHARYN X BY GALLITO WITH NON-PROBE DETECTION Not Detected 03/05 Specimen Type: NASOPHARYNX Comment: The FilmArray RP Panel combines nested multiplex PCR and DNA melting analysis for the simultaneou s qualitative detection and identificat ion of multiple respiratory viral and bacterial nucleic acids. A negative result does not preclude infection with the agent(s) tested and should not be used as the sole basis for treatment or other patient management decisions. Detection of organism target(s) does not imply that the correspondi ng organisms are infectious or are the causative agents for clinical symptoms. Results from this test must be correlated with the clinical history, epidemiolog ical data, and other data available to the clinician evaluating the patient. [employer] Susanne, ([phone]) Ordering Provider: MUKESH MARINELLI Report Released Date/Time: Mar 05, 2024 09:39 AM Reporting Lab: [facility] [address] [facility] [address] Performing Lab: [facility] [address] [facility] [address] [facility] RESPIRAT ORY PCR PANEL HUMAN CORONAVIRU S OC43 RNA [PRESENCE] IN NASOPHARYN X BY GALLITO WITH NON-PROBE DETECTION Not Detected 03/05 Specimen Type: NASOPHARYNX Comment: The FilmArray RP Panel combines nested multiplex PCR and DNA melting analysis for the simultaneou s qualitative detection and identificat ion of multiple respiratory viral and bacterial nucleic acids. A negative result does not preclude infection with the agent(s) tested and should not be used as the sole basis for treatment or other patient management decisions. Detection of organism target(s) does not imply that the correspondi ng organisms are infectious or are the causative agents for clinical symptoms. Results from this test must be correlated with the clinical history, epidemiolog ical data, and other data available to the clinician evaluating the patient. [employer] TherapeuticsClaudio CASTRO ([phone]) Ordering Provider: MUKESH MARINELLI Report Released Date/Time: Mar 05, 2024 09:39 AM Reporting Lab: [address] [address] Performing Lab: [address] [address] [facility] RESPIRAT ORY PCR PANEL HUMAN METAPNEUMO VIRUS RNA [PRESENCE] IN NASOPHARYN X BY GALLITO WITH NON-PROBE DETECTION Not Detected 03/05 Specimen Type: NASOPHARYNX Comment: The FilmArray RP Panel combines nested multiplex PCR and DNA melting analysis for the simultaneou s qualitative detection and identificat ion of multiple respiratory viral and bacterial nucleic acids. A negative result does not preclude infection with the agent(s) tested and should not be used as the sole basis for treatment or other patient management decisions. Detection of organism target(s) does not imply that the correspondi ng organisms are infectious or are the causative agents for clinical symptoms. Results from this test must be correlated with the clinical history, epidemiolog ical data, and other data available to the clinician evaluating the patient. Claudio GREEN ([phone]) Ordering Provider: MUKESH MARINELLI Report Released Date/Time: Mar 05, 2024 09:39 AM Reporting Lab: [address] [address] Performing Lab: [place] [address] [address] [facility] [address] [facility] RESPIRAT ORY PCR PANEL RHINOVIRUS +ENTEROVIR US RNA [PRESENCE] IN NASOPHARYN X BY GALLITO WITH NON-PROBE DETECTION Not Detected 03/05 Specimen Type: NASOPHARYNX Comment: The FilmArray RP Panel combines nested multiplex PCR and DNA melting analysis for the simultaneou s qualitative detection and identificat ion of multiple respiratory viral and bacterial nucleic acids. A negative result does not preclude infection with the agent(s) tested and should not be used as the sole basis for treatment or other patient management decisions. Detection of organism target(s) does not imply that the correspondi ng organisms are infectious or are the causative agents for clinical symptoms. Results from this test must be correlated with the clinical history, epidemiolog ical data, and other data available to the clinician evaluating the patient. [email or web address] Susanne, ([phone]) Ordering Provider: MUKESH MARINELLI Report Released Date/Time: Mar 05, 2024 09:39 AM Reporting Lab: [address] [address] Performing Lab: [address] [address] [facility] RESPIR ORY PCR PANEL INFLUENZA VIRUS A RNA [PRESENCE] IN NASOPHARYN X BY GALLITO WITH NON-PROBE DETECTION Not Detected 03/05 Specimen Type: NASOPHARYNX Comment: The FilmArray RP Panel combines nested multiplex PCR and DNA melting analysis for the simultaneou s qualitative detection and identificat ion of multiple respiratory viral and bacterial nucleic acids. A negative result does not preclude infection with the agent(s) tested and should not be used as the sole basis for treatment or other patient management decisions. Detection of organism target(s) does not imply that the correspondi ng organisms are infectious or are the causative agents for clinical symptoms. Results from this test must be correlated with the clinical history, epidemiolog ical data, and other data available to the clinician evaluating the patient. [email or web address] Susanne, ([phone]) Ordering Provider: MUKESH MARINELLI Report Released Date/Time: Mar 05, 2024 09:39 AM Reporting Lab: [place] [address] [facility] [facility] [address] Performing Lab: [place] [address] [facility] [facility] [address] [facility] RESPIRAT ORY PCR PANEL INFLUENZA VIRUS B RNA [PRESENCE] IN NASOPHARYN X BY GALLITO WITH NON-PROBE DETECTION Not Detected 03/05 Specimen Type: NASOPHARYNX Comment: The FilmArray RP Panel combines nested multiplex PCR and DNA melting analysis for the simultaneou s qualitative detection and identificat ion of multiple respiratory viral and bacterial nucleic acids. A negative result does not preclude infection with the agent(s) tested and should not be used as the sole basis for treatment or other patient management decisions. Detection of organism target(s) does not imply that the correspondi ng organisms are infectious or are the causative agents for clinical symptoms. Results from this test must be correlated with the clinical history, epidemiolog ical data, and other data available to the clinician evaluating the patient. Claudio GREEN, ([phone]) Ordering Provider: MUKESH MARINELLI Report Released Date/Time: Mar 05, 2024 09:39 AM Reporting Lab: [place] [address] [facility] [address] Performing Lab: [address] [address] [facility] RESPIRAT ORY PCR PANEL PARAINFLUE NZA VIRUS 1 RNA [PRESENCE] IN NASOPHARYN X BY GALLITO WITH NON-PROBE DETECTION Not Detected 03/05 Specimen Type: NASOPHARYNX Comment: The FilmArray RP Panel combines nested multiplex PCR and DNA melting analysis for the simultaneou s qualitative detection and identificat ion of multiple respiratory viral and bacterial nucleic acids. A negative result does not preclude infection with the agent(s) tested and should not be used as the sole basis for treatment or other patient management decisions. Detection of organism target(s) does not imply that the correspondi ng organisms are infectious or are the causative agents for clinical symptoms. Results from this test must be correlated with the clinical history, epidemiolog ical data, and other data available to the clinician evaluating the patient. Claudio GREEN, ([phone]) Ordering Provider: MUKESH MARINELLI Report Released Date/Time: Mar 05, 2024 09:39 AM Reporting Lab: [address] [address] Performing Lab: [place] [address] [facility] [address] [facility] RESPIRAT ORY PCR PANEL PARAINFLUE NZA VIRUS 2 RNA [PRESENCE] IN NASOPHARYN X BY GALLITO WITH NON-PROBE DETECTION Not Detected 03/05 Specimen Type: NASOPHARYNX Comment: The [employer] RP Panel combines nested multiplex PCR and DNA melting analysis for the simultaneou s qualitative detection and identificat ion of multiple respiratory viral and bacterial nucleic acids. A negative result does not preclude infection with the agent(s) tested and should not be used as the sole basis for treatment or other patient management decisions. Detection of organism target(s) does not imply that the correspondi ng organisms are infectious or are the causative agents for clinical symptoms. Results from this test must be correlated with the clinical history, epidemiolog ical data, and other data available to the clinician evaluating the patient. [email or web address]oph[employer]Kelly Susanne, ([phone]) Ordering Provider: MUKESH MARINELLI Report Released Date/Time: Mar 05, 2024 09:39 AM Reporting Lab: [place] [address] [facility] [address] Performing Lab: [address] [address] [facility] RESPIRAT ORY PCR PANEL PARAINFLUE NZA VIRUS 3 RNA [PRESENCE] IN NASOPHARYN X BY GALLITO WITH NON-PROBE DETECTION Not Detected 03/05 Specimen Type: NASOPHARYNX Comment: The FilmArray RP Panel combines nested multiplex PCR and DNA melting analysis for the simultaneou s qualitative detection and identificat ion of multiple respiratory viral and bacterial nucleic acids. A negative result does not preclude infection with the agent(s) tested and should not be used as the sole basis for treatment or other patient management decisions. Detection of organism target(s) does not imply that the correspondi ng organisms are infectious or are the causative agents for clinical symptoms. Results from this test must be correlated with the clinical history, epidemiolog ical data, and other data available to the clinician evaluating the patient. Claudio GREEN, ([phone]) Ordering Provider: MUKESH MARINELLI Report Released Date/Time: Mar 05, 2024 09:39 AM Reporting Lab: [place] [address] [facility] [address] Performing Lab: [address] [address] [facility] RESPIRAT ORY PCR PANEL PARAINFLUE NZA VIRUS 4 RNA [PRESENCE] IN NASOPHARYN X BY GALLITO WITH NON-PROBE DETECTION Not Detected 03/05 Specimen Type: NASOPHARYNX Comment: The FilmArray RP Panel combines nested multiplex PCR and DNA melting analysis for the simultaneou s qualitative detection and identificat ion of multiple respiratory viral and bacterial nucleic acids. A negative result does not preclude infection with the agent(s) tested and should not be used as the sole basis for treatment or other patient management decisions. Detection of organism target(s) does not imply that the correspondi ng organisms are infectious or are the causative agents for clinical symptoms. Results from this test must be correlated with the clinical history, epidemiolog ical data, and other data available to the clinician evaluating the patient. Claudio GREEN, ([phone]) Ordering Provider: MUKESH MARINELLI Report Released Date/Time: Mar 05, 2024 09:39 AM Reporting Lab: [address] [address] Performing Lab: [place] [address] [facility] [address] [facility] RESPIRAT ORY PCR PANEL RESPIRATOR Y SYNCYTIAL VIRUS RNA [PRESENCE] IN NASOPHARYN X BY GALLITO WITH NON-PROBE DETECTION Not Detected 03/05 Specimen Type: NASOPHARYNX Comment: The FilmArray RP Panel combines nested multiplex PCR and DNA melting analysis for the simultaneou s qualitative detection and identificat ion of multiple respiratory viral and bacterial nucleic acids. A negative result does not preclude infection with the agent(s) tested and should not be used as the sole basis for treatment or other patient management decisions. Detection of organism target(s) does not imply that the correspondi ng organisms are infectious or are the causative agents for clinical symptoms. Results from this test must be correlated with the clinical history, epidemiolog ical data, and other data available to the clinician evaluating the patient. Valocor TherapeuticsClaudio CASTRO, (168) Ordering Provider: MUKEHS MARINELLI Report Released Date/Time: Mar 05, 2024 09:39 AM Reporting Lab: [facility] [address] [facility] [address] Performing Lab: [place] [address] [facility] [address] [facility] RESPIRAT ORY PCR PANEL BORDETELLA PERTUSSIS. PERTUSSIS TOXIN PROMOTER REGION [PRESENCE] IN NASOPHARYN X BY GALLITO WITH NON-PROBE DETECTION Not Detected 03/05 Specimen Type: NASOPHARYNX Comment: The P2P-Next RP Panel combines nested multiplex PCR and DNA melting analysis for the simultaneou s qualitative detection and identificat ion of multiple respiratory viral and bacterial nucleic acids. A negative result does not preclude infection with the agent(s) tested and should not be used as the sole basis for treatment or other patient management decisions. Detection of organism target(s) does not imply that the correspondi ng organisms are infectious or are the causative agents for clinical symptoms. Results from this test must be correlated with the clinical history, epidemiolog ical data, and other data available to the clinician evaluating the patient. Valocor TherapeuticsGLORIA RedHill BiopharmaKelly Skinner, ([phone]) Ordering Provider: MUKESH MARINELLI Report Released Date/Time: Mar 05, 2024 09:39 AM Reporting Lab: [facility] [address] [facility] [address] Performing Lab: [place] [address] [facility] [address] [facility] RESPIRAT ORY PCR PANEL CHLAMYDOPH CRISTIAN PNEUMONIAE DNA [PRESENCE] IN NASOPHARYN X BY GALLITO WITH NON-PROBE DETECTION Not Detected 03/05 Specimen Type: NASOPHARYNX Comment: The P2P-Next RP Panel combines nested multiplex PCR and DNA melting analysis for the simultaneou s qualitative detection and identificat ion of multiple respiratory viral and bacterial nucleic acids. A negative result does not preclude infection with the agent(s) tested and should not be used as the sole basis for treatment or other patient management decisions. Detection of organism target(s) does not imply that the correspondi ng organisms are infectious or are the causative agents for clinical symptoms. Results from this test must be correlated with the clinical history, epidemiolog ical data, and other data available to the clinician evaluating the patient. [employer], (712) Ordering Provider: MUKESH MARINELLI Report Released Date/Time: Mar 05, 2024 09:39 AM Reporting Lab: [address] [address] Performing Lab: [address] [address] [facility] RESPIRAT ORY PCR PANEL MYCOPLASMA PNEUMONIAE DNA [PRESENCE] IN NASOPHARYN X BY GALLITO WITH NON-PROBE DETECTION Not Detected 03/05 Specimen Type: NASOPHARYNX Comment: The P2P-Next RP Panel combines nested multiplex PCR and DNA melting analysis for the simultaneou s qualitative detection and identificat ion of multiple respiratory viral and bacterial nucleic acids. A negative result does not preclude infection with the agent(s) tested and should not be used as the sole basis for treatment or other patient management decisions. Detection of organism target(s) does not imply that the correspondi ng organisms are infectious or are the causative agents for clinical symptoms. Results from this test must be correlated with the clinical history, epidemiolog ical data, and other data available to the clinician evaluating the patient. [employer] Susanne, ([phone]) Ordering Provider: MUKESH MARINELLI Report Released Date/Time: Mar 05, 2024 09:39 AM Reporting Lab: [address] [address] Performing Lab: [address] [address] [facility] RESPIRAT ORY PCR PANEL [place]ORDETELLA PARAPERTUS SIS [id number] DNA [PRESENCE] IN NASOPHARYN X BY GALLITO WITH NON-PROBE DETECTION Not Detected 03/05 Specimen Type: NASOPHARYNX Comment: The FilmArray RP Panel combines nested multiplex PCR and DNA melting analysis for the simultaneou s qualitative detection and identificat ion of multiple respiratory viral and bacterial nucleic acids. A negative result does not preclude infection with the agent(s) tested and should not be used as the sole basis for treatment or other patient management decisions. Detection of organism target(s) does not imply that the correspondi ng organisms are infectious or are the causative agents for clinical symptoms. Results from this test must be correlated with the clinical history, epidemiolog ical data, and other data available to the clinician evaluating the patient. [employer] RedHill BiopharmaKelly Skinner, (319) Ordering Provider: MUKESH MARINELLI Report Released Date/Time: Mar 05, 2024 09:39 AM Reporting Lab: [address] [address] Performing Lab: [address] [address] [facility] RESPIRAT ORY PCR PANEL SARS-COV-2 (COVID-19) RNA [PRESENCE] IN NASOPHARYN X BY GALLITO WITH NON-PROBE DETECTION Not Detected 03/05 Specimen Type: NASOPHARYNX Comment: The FilmArray RP Panel combines nested multiplex PCR and DNA melting analysis for the simultaneou s qualitative detection and identificat ion of multiple respiratory viral and bacterial nucleic acids. A negative result does not preclude infection with the agent(s) tested and should not be used as the sole basis for treatment or other patient management decisions. Detection of organism target(s) does not imply that the correspondi ng organisms are infectious or are the causative agents for clinical symptoms. Results from this test must be correlated with the clinical history, epidemiolog ical data, and other data available to the clinician evaluating the patient. Valocor TherapeuticsClaudio CASTRO, ([phone]) Ordering Provider: MUKESH MARINELLI Report Released Date/Time: Mar 05, 2024 09:39 AM Reporting Lab: [address] [address] Performing Lab: [address] [place] [address] [facility] CBC LEUKOCYTES [#/VOLUME] IN BLOOD BY AUTOMATED COUNT 7.1 10*3/uL 3.6 - 11.2 03/05 Specimen Type: BLOOD No comment entered. Ordering Provider: MUKESH MARINELLI Report Released Date/Time: Mar 05, 2024 08:52 AM Reporting Lab: [address] [address] Performing Lab: [address] [address] [facility] CBC ERYTHROCYT ES [#/VOLUME] IN BLOOD BY AUTOMATED COUNT 4.84 10*6/uL 4.10 - 5.70 03/05 Specimen Type: BLOOD No comment entered. Ordering Provider: MUKESH MARINELLI Report Released Date/Time: Mar 05, 2024 08:52 AM Reporting Lab: [address] [address] Performing Lab: [address] [address] [facility] CBC HEMOGLOBIN [MASS/VOLU ME] IN BLOOD 13.1 g/dL 13.1 - 16.8 03/05 Specimen Type: BLOOD No comment entered. Ordering Provider: MUKESH MARINELLI Report Released Date/Time: Mar 05, 2024 08:52 AM Reporting Lab: [address] [address] Performing Lab: [address] [address] [facility] CBC HEMATOCRIT [VOLUME FRACTION] OF BLOOD 38.6 38.2 - 48.4 03/05 Specimen Type: BLOOD No comment entered. Ordering Provider: MUKESH MARINELLI Report Released Date/Time: Mar 05, 2024 08:52 AM Reporting Lab: [address] [address] Performing Lab: [address] [place] [address] [facility] CBC MCV [ENTITIC VOLUME] BY AUTOMATED COUNT 79.8 fL 80.0 - 100.0 03/05 L Specimen Type: BLOOD No comment entered. Ordering Provider: MUKESH MARINELLI Report Released Date/Time: Mar 05, 2024 08:52 AM Reporting Lab: [address] [address] Performing Lab: [address] [address] [facility] CBC MCH [ENTITIC MASS] BY AUTOMATED COUNT 27.1 pg 27.0 - 34.0 03/05 Specimen Type: BLOOD No comment entered. Ordering Provider: MUKESH MARINELLI Report Released Date/Time: Mar 05, 2024 08:52 AM Reporting Lab: [address] [address] Performing Lab: [address] [address] [facility] CBC MCHC [MASS/VOLU ME] BY AUTOMATED COUNT 33.9 g/dL 33.0 - 36.0 03/05 Specimen Type: BLOOD No comment entered. Ordering Provider: MUKESH MARINELLI Report Released Date/Time: Mar 05, 2024 08:52 AM Reporting Lab: [address] [address] Performing Lab: [address] [address] [facility] CBC PLATELETS [#/VOLUME] IN BLOOD BY AUTOMATED COUNT 354 10*3/uL 150 - 400 03/05 Specimen Type: BLOOD No comment entered. Ordering Provider: MUKESH MARINELLI Report Released Date/Time: Mar 05, 2024 08:52 AM Reporting Lab: [address] [address] Performing Lab: [address] [address] [facility] CBC PLATELET MEAN VOLUME [ENTITIC VOLUME] IN BLOOD BY AUTOMATED COUNT 9.9 fL 7.5 - 11.2 03/05 Specimen Type: BLOOD No comment entered. Ordering Provider: MKUESH MARINELLI Report Released Date/Time: Mar 05, 2024 08:52 AM Reporting Lab: [address] [address] Performing Lab: [address] [address] [facility] CBC ERYTHROCYT E DISTRIBUTI ON WIDTH [RATIO] BY AUTOMATED COUNT 13.3 11.8 - 15.1 03/05 Specimen Type: BLOOD No comment entered. Ordering Provider: MUKESH MARINELLI Report Released Date/Time: Mar 05, 2024 08:52 AM Reporting Lab: [address] [address] Performing Lab: [address] [address] [facility] CBC LYMPHOCYTE S/100 LEUKOCYTES IN BLOOD BY AUTOMATED COUNT 14 03/05 Specimen Type: BLOOD No comment entered. Ordering Provider: MUKESH MARINELLI Report Released Date/Time: Mar 05, 2024 08:52 AM Reporting Lab: [address] [address] Performing Lab: [facility] [address] [place] [address] [facility] CBC MONOCYTES/ 100 LEUKOCYTES IN BLOOD BY AUTOMATED COUNT 7 03/05 Specimen Type: BLOOD No comment entered. Ordering Provider: MUKESH MARINELLI Report Released Date/Time: Mar 05, 2024 08:52 AM Reporting Lab: [address] [address] Performing Lab: [address] [address] [facility] CBC NEUTROPHIL S/100 LEUKOCYTES IN BLOOD BY AUTOMATED COUNT 78 03/05 Specimen Type: BLOOD No comment entered. Ordering Provider: MUKESH MARINELLI Report Released Date/Time: Mar 05, 2024 08:52 AM Reporting Lab: [facility] [address] [facility] [address] Performing Lab: [facility] [address] [place] [address] [facility] CBC EOSINOPHIL S/100 LEUKOCYTES IN BLOOD BY AUTOMATED COUNT 0 03/05 Specimen Type: BLOOD No comment entered. Ordering Provider: MUKESH MARINELLI Report Released Date/Time: Mar 05, 2024 08:52 AM Reporting Lab: [address] [address] Performing Lab: [address] [address] [facility] CBC BASOPHILS/ 100 LEUKOCYTES IN BLOOD BY AUTOMATED COUNT 0 03/05 Specimen Type: BLOOD No comment entered. Ordering Provider: MUKESH MARINELLI Report Released Date/Time: Mar 05, 2024 08:52 AM Reporting Lab: [facility] [address] [place] [address] Performing Lab: [address] [address] [facility] CBC LYMPHOCYTE S [#/VOLUME] IN BLOOD BY AUTOMATED COUNT 1.00 10*3/uL 0.77 - 4.50 03/05 Specimen Type: BLOOD No comment entered. Ordering Provider: MUKESH MARINELLI Report Released Date/Time: Mar 05, 2024 08:52 AM Reporting Lab: [facility] [address] [place] [address] Performing Lab: [address] [address] [facility] CBC MONOCYTES [#/VOLUME] IN BLOOD BY AUTOMATED COUNT 0.50 10*3/uL 0.19 - 0.80 03/05 Specimen Type: BLOOD No comment entered. Ordering Provider: MUKESH MARINELLI Report Released Date/Time: Mar 05, 2024 08:52 AM Reporting Lab: [place] [address] Performing Lab: [place] [phone] CBC NEUTROPHIL S [#/VOLUME] IN BLOOD BY AUTOMATED COUNT 5.53 10*3/uL 2.10 - 8.00 03/05 Specimen Type: BLOOD No comment entered. Ordering Provider: MUKESH MARINELLI Report Released Date/Time: Mar 05, 2024 08:52 AM Reporting Lab: [place] [address] Performing Lab: [place] [phone] CBC EOSINOPHIL S [#/VOLUME] IN BLOOD BY AUTOMATED COUNT 0.03 10*3/uL 0.00 - 0.60 03/05 Specimen Type: BLOOD No comment entered. Ordering Provider: MUKESH MARINELLI Report Released Date/Time: Mar 05, 2024 08:52 AM Reporting Lab: [place] [phone] Performing Lab: [address] [address] CBC BASOPHILS [#/VOLUME] IN BLOOD BY AUTOMATED COUNT 0.01 10*3/uL 0.00 - 0.20 03/05 Specimen Type: BLOOD No comment entered. Ordering Provider: MUKESH MARINELLI Report Released Date/Time: Mar 05, 2024 08:52 AM Reporting Lab: [place] [address] Performing Lab: [address] [phone] [place] [address] TROPONIN I TROPONIN I.CARDIAC [MASS/VOLU ME] IN SERUM OR PLASMA 0.013 ng/mL 0 - 0.033 03/05 Specimen Type: PLASMA Comment: No hemolysis noted. Ordering Provider: MUKESH MARINELLI Report Released Date/Time: Mar 05, 2024 08:52 AM Reporting Lab: [address] [address] Performing Lab: [address] [address] [facility] TSH (MA-PB) THYROTROPI N [UNITS/VOL UME] IN SERUM OR PLASMA 0.283 u[IU]/mL 0.47 - 5 03/05 L Specimen Type: SERUM No comment entered. Ordering Provider: MUKESH MARINELLI Report Released Date/Time: Mar 05, 2024 09:39 AM Reporting Lab: [address] [address] Performing Lab: [address] [phone] [place] [address] TSH (MA-PB) THYROXINE (T4) FREE [MASS/VOLU ME] IN SERUM OR PLASMA 1.10 ng/mL 0.7 - 1.48 03/05 Specimen Type: SERUM No comment entered. Ordering Provider: MUKESH MARINELLI Report Released Date/Time: Mar 05, 2024 09:39 AM Reporting Lab: [address] [address] Performing Lab: [address] [address] [facility] BRAIN NATRIURE TIC PEPTIDE NATRIURETI C PEPTIDE B [MASS/VOLU ME] IN SERUM OR PLASMA 16.2 pg/mL 0 - 100 03/05 Specimen Type: PLASMA No comment entered. Ordering Provider: MUKESH MARINELLI Report Released Date/Time: Mar 05, 2024 09:39 AM Reporting Lab: [address] [address] Performing Lab: [address] [address] [facility] COMPREHE NSIVE METABOLI C PANEL CREATININE [MASS/VOLU ME] IN SERUM OR PLASMA 0.92 mg/dL 0.7 - 1.3 03/05 Specimen Type: PLASMA Comment: No hemolysis noted. Ordering Provider: MUKESH MARINELLI Report Released Date/Time: Mar 05, 2024 08:52 AM Reporting Lab: [place] [address] [facility] [address] Performing Lab: [place] [address] [facility] [address] [facility] COMPREHE NSIVE METABOLI C PANEL UREA NITROGEN [MASS/VOLU ME] IN SERUM OR PLASMA 15.6 mg/dL 9.0 - 25.0 03/05 Specimen Type: PLASMA Comment: No hemolysis noted. Ordering Provider: MUKESH MARINELLI Report Released Date/Time: Mar 05, 2024 08:52 AM Reporting Lab: [place] [address] [facility] [address] Performing Lab: [place] [address] [facility] [address] [facility] COMPREHE NSIVE METABOLI C PANEL GLUCOSE [MASS/VOLU ME] IN SERUM OR PLASMA 153 mg/dL 72 - 99 03/05 H Specimen Type: PLASMA Comment: No hemolysis noted. Ordering Provider: MUKESH MARINELLI Report Released Date/Time: Mar 05, 2024 08:52 AM Reporting Lab: [place] [address] [facility] [address] Performing Lab: [place] [address] [facility] [address] [facility] COMPREHE NSIVE METABOLI C PANEL SODIUM [MOLES/VOL UME] IN SERUM OR PLASMA 136 meq/L 136 - 145 03/05 Specimen Type: PLASMA Comment: No hemolysis noted. Ordering Provider: MUKESH MARINELLI Report Released Date/Time: Mar 05, 2024 08:52 AM Reporting Lab: [place] [address] [facility] [address] Performing Lab: [facility] [address] [address] [facility] COMPREHE NSIVE METABOLI C PANEL POTASSIUM [MOLES/VOL UME] IN SERUM OR PLASMA 4.2 meq/L 3.5 - 5 03/05 Specimen Type: PLASMA Comment: No hemolysis noted. Ordering Provider: MUKESH MARINELLI Report Released Date/Time: Mar 05, 2024 08:52 AM Reporting Lab: [facility] [address] [facility] [address] Performing Lab: [facility] [address] [facility] [address] [facility] COMPREHE NSIVE METABOLI C PANEL CHLORIDE [MOLES/VOL UME] IN SERUM OR PLASMA 102 meq/L 98 - 107 03/05 Specimen Type: PLASMA Comment: No hemolysis noted. Ordering Provider: MUKESH MARINELLI Report Released Date/Time: Mar 05, 2024 08:52 AM Reporting Lab: [facility] [address] [address] Performing Lab: [facility] [address] [address] [facility] COMPREHE NSIVE METABOLI C PANEL CARBON DIOXIDE, TOTAL [MOLES/VOL UME] IN SERUM OR PLASMA 24 meq/L 22 - 31 03/05 Specimen Type: PLASMA Comment: No hemolysis noted. Ordering Provider: MUKESH MARINELLI Report Released Date/Time: Mar 05, 2024 08:52 AM Reporting Lab: [facility] [address] [address] Performing Lab: [facility] [address] [facility] [address] [facility] COMPREHE NSIVE METABOLI C PANEL CALCIUM [MASS/VOLU ME] IN SERUM OR PLASMA 9.6 mg/dL 8.4 - 10.4 03/05 Specimen Type: PLASMA Comment: No hemolysis noted. Ordering Provider: MUKESH MARINELLI Report Released Date/Time: Mar 05, 2024 08:52 AM Reporting Lab: [facility] [address] [address] Performing Lab: [facility] [address] [address] [facility] COMPREHE NSIVE METABOLI C PANEL PROTEIN [MASS/VOLU ME] IN SERUM OR PLASMA 9.3 g/dL 6 - 8.6 03/05 H Specimen Type: PLASMA Comment: No hemolysis noted. Ordering Provider: MUKESH MARINELLI Report Released Date/Time: Mar 05, 2024 08:52 AM Reporting Lab: [facility] [address] [address] Performing Lab: [facility] [address] [address] [facility] COMPREHE NSIVE METABOLI C PANEL ALBUMIN [MASS/VOLU ME] IN SERUM OR PLASMA 3.6 g/dL 3.4 - 5 03/05 Specimen Type: PLASMA Comment: No hemolysis noted. Ordering Provider: MUKESH MARINELLI Report Released Date/Time: Mar 05, 2024 08:52 AM Reporting Lab: [facility] [address] [address] Performing Lab: [facility] [address] [facility] [address] [facility] COMPREHE NSIVE METABOLI C PANEL BILIRUBIN. TOTAL [MASS/VOLU ME] IN SERUM OR PLASMA 0.9 mg/dL 0.2 - 1.2 03/05 Specimen Type: PLASMA Comment: No hemolysis noted. Ordering Provider: MUKESH MARINELLI Report Released Date/Time: Mar 05, 2024 08:52 AM Reporting Lab: [facility] [address] [facility] [address] Performing Lab: [facility] [address] [facility] [address] [facility] COMPREHE NSIVE METABOLI C PANEL ALKALINE PHOSPHATAS E [ENZYMATIC ACTIVITY/V OLUME] IN SERUM OR PLASMA 79 U/L 40 - 150 03/05 Specimen Type: PLASMA Comment: No hemolysis noted. Ordering Provider: MUKESH MARINELLI Report Released Date/Time: Mar 05, 2024 08:52 AM Reporting Lab: [place] [address] [facility] [address] Performing Lab: [place] [address] [place] [id number] COMPREHE NSIVE METABOLI C PANEL ASPARTATE AMINOTRANS FERASE [ENZYMATIC ACTIVITY/V OLUME] IN SERUM OR PLASMA 45 U/L 5 - 34 03/05 H Specimen Type: PLASMA Comment: No hemolysis noted. Ordering Provider: MUKESH MARINELLI Report Released Date/Time: Mar 05, 2024 08:52 AM Reporting Lab: [place] [address] [facility] [address] Performing Lab: [place] [address] [facility] [address] [facility] COMPREHE NSIVE METABOLI C PANEL ALANINE AMINOTRANS FERASE [ENZYMATIC ACTIVITY/V OLUME] IN SERUM OR PLASMA 25 U/L 8 - 40 03/05 Specimen Type: PLASMA Comment: No hemolysis noted. Ordering Provider: MUKESH MARINELLI Report Released Date/Time: Mar 05, 2024 08:52 AM Reporting Lab: [place] [address] [place] [phone] Performing Lab: [place] [address] [facility] [id number] [place] [address] COMPREHE NSIVE METABOLI C PANEL GLOMERULAR FILTRATION RATE/1.73 SQ M.PREDICTE D [VOLUME RATE/AREA] IN SERUM, PLASMA OR BLOOD BY CREATININE -BASED FORMULA (CKD-EPI 2020) 108.5 60 03/05 Specimen Type: PLASMA Comment: No hemolysis noted. Ordering Provider: MUKESH MARINELLI Report Released Date/Time: Mar 05, 2024 08:52 AM Reporting Lab: [address] [place] [address] Performing Lab: [facility] [address] [facility] [address] [facility] ESR ISED(STL ) ERYTHROCYT E SEDIMENTAT ION RATE 35 mm/h 0 - 14 01/25 H Specimen Type: BLOOD No comment entered. Ordering Provider: FRANSISCO MORTON Report Released Date/Time: Jan 26, 2024 02:11 PM Reporting Lab: [facility] [address] 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 Vital Sign Value Date Comments Source SYSTOLIC BLOOD PRESSURE 135 03/21/2024 12:20:00 [facility] DIASTOLIC BLOOD PRESSURE 83 03/21/2024 12:20:00 [facility] PAIN 6 03/21/2024 12:20:00 [facility] TEMPERATURE 99 03/21/2024 12:20:00 [facility] PULSE 128 03/21/2024 12:20:00 [facility] RESPIRATION 20 03/21/2024 12:20:00 [facility] SYSTOLIC BLOOD PRESSURE 101 03/16/2024 10:04:12 [facility] DIASTOLIC BLOOD PRESSURE 66 03/16/2024 10:04:12 [facility] PULSE OXIMETRY 98 03/16/2024 10:04:12 [facility] WEIGHT 195.5 03/16/2024 10:04:12 [facility] BMI 27kg/m2 03/16/2024 10:04:12 [facility] PAIN 6 03/16/2024 10:04:12 [facility] HEIGHT 71 03/16/2024 10:04:12 [facility] TEMPERATURE 97.7 03/16/2024 10:04:12 [facility] PULSE 107 03/16/2024 10:04:12 [facility] RESPIRATION 20 03/16/2024 10:04:12 [facility] SYSTOLIC BLOOD PRESSURE 134 03/05/2024 08:48:00 [facility] DIASTOLIC BLOOD PRESSURE 82 03/05/2024 08:48:00 [facility] PAIN 3 03/05/2024 08:48:00 [facility] TEMPERATURE 98 03/05/2024 08:48:00 [facility] PULSE 136 03/05/2024 08:48:00 [facility] RESPIRATION 18 03/05/2024 08:48:00 [facility] SYSTOLIC BLOOD PRESSURE 128 01/26/2024 13:15:48 [facility] DIASTOLIC BLOOD PRESSURE 86 01/26/2024 13:15:48 [facility] PULSE OXIMETRY 97 01/26/2024 13:15:48 [facility] WEIGHT 220.1 01/26/2024 13:15:48 [facility] BMI 31kg/m2 01/26/2024 13:15:48 [facility] PAIN 4 01/26/2024 13:15:48 [facility] HEIGHT 71 01/26/2024 13:15:48 [facility] TEMPERATURE 98 01/26/2024 13:15:48 [facility] PULSE 80 01/26/2024 13:15:48 [facility] RESPIRATION 16 01/26/2024 13:15:48 [facility] SYSTOLIC BLOOD PRESSURE 115 01/14/2024 08:55:32 [facility] DIASTOLIC BLOOD PRESSURE 76 01/14/2024 08:55:32 [facility] PULSE OXIMETRY 97 01/14/2024 08:55:32 [facility] WEIGHT 218.3 01/14/2024 08:55:32 [facility] Jasvir [facility] DIV[facility] BMI 31kg/m2 01/14/2024 08:55:32 [facility] Jasvir [facility] PAIN 3 01/14/2024 08:55:32 [facility] Jasvir [facility] TEMPERATURE 97.2 01/14/2024 08:55:32 [facility] PULSE 95 01/14/2024 08:55:32 [facility] Jasvir [facility] RESPIRATION 16 01/14/2024 08:55:32 [facility] Encounters Combined list of: 1) Encounters from Department of [facility] facilities going back up to thelast 18 months. 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 Location Location Details Encounter Type Encounter Number Reason For Visit Attending Provider ADM Date DC Date Status [facility] [id number] ADELA Carney 05/08 Released w/o Limitations [facility]( Optomet ry Clinic) Otoniel [facility] Element) OUTPATIENT [id number] 21 YRS OLD WITH BACK AND GROIN PAIN/1 WEEK MONI ZAPATA 08/25 Released w/o Limitations [facility]( Family Practic e [facility] ) Otoniel [facility](99 MDG Physical Therapy - Main) OUTPATIENT [id number] lower back pain JUSTYNA GUZMAN 09/03 Released w/o Limitations [facility]( 99MDG Physica l Therapy - Main) [facility]) [facility] [id number] NON-FLY PHA MORIAH PHOENIX 04/26 Released w/o Limitations [facility]( ZZISAS) [facility]) OUTPATIENT [id number] Cough, TAY, Upset stomach PHOENIX MORIAH L 01/08 Released w/o Limitations [facility]( Yung Aid Station ) Otoniel [facility] Medicine Residency ) OUTPATIENT [id number] BARB FATEMEH RIVERARA Iglesias 06/26 Released w/o Limitations [facility]( Family Medicin e Residen cy) [facility] ) [facility] [id number] [facility] DELANO Osborn 11/06 Released w/o Limitations [facility]( Family Medicin e Residen cy) [employer](War rior Operation al Med A-AD) OUTPATIENT [id number] Rt shldr pain x awhile. BEL CABRERA 02/04 Released w/o Limitations [employer](W arrior Operati onal Med A-AD) [employer](War rior Operation al Med A-AD) TELE CONSULT [id number] Needs profile seen PCM Jan. BEL CABRERA 03/04 [employer](W arrior Operati onal Med A-AD) [employer](OAB Emergency ) OUTPATIENT [id number] BOB GRIJALVA 03/17 Released w/o Limitations [employer](O AB Emergen cy) [employer](OAB Physical Therapy) OUTPATIENT [id number] right shoulde r THOMPSON Richey 03/18 Released w/o Limitations [employer](O AB Physica l Therapy ) [employer](OAB Physical Therapy) OUTPATIENT [id number] MATTHEW BOWMAN 03/26 Released w/o Limitations [employer](O AB Physica l Therapy ) [employer](OAB Physical Therapy) OUTPATIENT [id number] MATTHEW BOWMAN 03/31 Released w/o Limitations [employer](O AB Physica l Therapy ) [employer](OAB Physical Therapy) OUTPATIENT [id number] MARKEL LAZAR LP 04/09 Released w/o Limitations [employer](O AB Physica l Therapy ) [employer](OAB Physical Therapy) OUTPATIENT [id number] MARKEL LAZAR LP 04/10 Released w/o Limitations [employer](O AB Physica l Therapy ) [employer](OAB Physical Therapy) OUTPATIENT [id number] MATTHEW BOWMAN 04/18 Released w/o Limitations [employer](O AB Physica l Therapy ) [employer](OAB Physical Therapy) OUTPATIENT [id number] MARKEL LAZAR LP 04/19 Released w/o Limitations [employer](O AB Physica l Therapy ) [employer](OAB Physical Therapy) OUTPATIENT [id number] MATTHEW BOWMAN 04/23 Released w/o Limitations [employer](O AB Physica l Therapy ) [employer](OAB Physical Therapy) OUTPATIENT [id number] THOMPSON HURT Nacho 04/30 Released w/o Limitations [employer](O AB Physica l Therapy ) [employer](War rior Operation al Med A-AD) OUTPATIENT [id number] wrist prob BEL CABRERA 05/17 Released w/o Limitations [employer](W arrior Operati onal Med A-AD) [employer](War rior Operation al Med A-AD) TELE CONSULT [id number] BLAINE MANCUSO 07/02 Other Not Elsewhere Classified [employer](W arrior Operati onal Med A-AD) [employer](Med ical Standards Managemen t) OUTPATIENT [id number] ELVIRA MCGINNIS 08/08 Released w/o Limitations [employer](M edical Standar ds Managem ent) [employer](War rior Operation al Med A-AD) OUTPATIENT [id number] f/u last visit BEL CABRERA 08/21 Released w/o Limitations [employer](W arrior Operati onal Med A-AD) [employer](OAB Physical Therapy) OUTPATIENT [id number] right humerus pain LICHATHOMPSON CISNEROS Nacho 09/24 Released w/o Limitations [employer](O AB Physica l Therapy ) [facility] Element B-1) OUTPATIENT [id number] bump on scalp and back IKE WICK 05/13 Released w/o Limitations [facility] Element B-1) [facility](ZZZRS N Deploymen t Hlth Assess) OUTPATIENT [id number] pre LOLIS PA 08/18 Released w/o Limitations [facility](ZZZ RSN Deploym ent Hlth Assess) [facility] Mental Health) OUTPATIENT [id number] KELLY JENKINSAH Valentin 09/16 Released w/o Limitations [facility] Mental Health) [facility] Element B-1) OUTPATIENT [id number] irritat ion around penis/ resched uled for a later date IKE WICK 09/23 Released w/o Limitations [facility] Element B-1) [facility](ZZZRS N Deploymen t Hlth Assess) OUTPATIENT [id number] Notes Entered by: Mark PRIEST 06 Oct 2011 1443 ------- ------- ------- ------- -- Pre Deploym ent [employer]ant 10/05 Released w/o Limitations [facility](ZZZ RSN Deploym ent Hlth Assess) Theater Facility OUTPATIENT [id number] 02/11 Released w/o Limitations Theater Facilit y Theater Facility OUTPATIENT [id number] Theater Provider 04/11 Released w/o Limitations Theater Facilit y [facility](ZZZRS N Deploymen t Hlth Assess) TELE CONSULT [id number] Notes Entered by: FRANCK CANNON I 04 May 2012 0942 ------- ------- ------- ------- -- Mbr deploymanan escamilla to an endemic malaria s area LOLIS PA 05/04 [facility](ZZZ RSN Deploym ent Hlth Assess) [facility] Element B-1) TELE CONSULT [id number] Notes Entered by: Eri FLORES 04 Jun 2012 0728 ------- ------- ------- ------- -- Sorethr oat / poss strep / hard to swallow / with fever /x 2-3 days LAUREN SANDRA M 06/04 [facility] Element B-1) [facility] Emergency Room) OUTPATIENT [id number] Notes Entered by: JOSUÉ NEGRON 05 Jun 2012 1440 ------- ------- ------- ------- -- 27y/o M sore throat/ tay ALYSE BAY 06/05 Released w/o Limitations [facility] Emergen cy Room) [facility] Element B-1) TELE CONSULT [id number] Notes Entered by: DAJUAN CASTILLO 07 Jun 2012 1558 ------- ------- ------- ------- -- SORE THROAT/ TROUBLE SWALLOW ING NANNETTE CROW 06/07 [facility] Element B-1) [facility] Element B-1) OUTPATIENT [id number] ongoing cold symptom s, unable to drink h2O (sore throat) CHAU Martin 06/08 Released w/o Limitations [facility] Element B-1) [facility] Element B-1) OUTPATIENT [id number] left testicl e pain x days painrat e 09/20 IKE WICK 07/21 [facility] Element B-1) [facility](LSL Emergency Room) OUTPATIENT [id number] Notes Entered by: JOSUÉ NEGRON 21 Jul 2012 1238 ------- ------- ------- ------- -- 27y/o M Osito e SALVADOR Owusu 07/21 Released with Work/Duty Limitations [facility](LSL Emergen cy Room) [facility]N [facility] Element B-1) TELE CONSULT [id number] Notes Entered by: ILIA FORD 21 Jul 2012 1535 ------- ------- ------- ------- -- Needs er f/u appt NANNETTE CROW 07/21 [facility] Element B-1) [facility](CLARENCERS N Deploymen t Hlth Assess) OUTPATIENT [id number] Notes Entered by: FRANCK CANNON I 12 Aug 2012 1305 ------- ------- ------- ------- -- DHA3 FRANCISCO GOSS 08/12 Released w/o Limitations [facility] RSGreer Deploy ent Hlth Assess) [facility] Element B-1) OUTPATIENT [id number] right arm pain on and off is getting worse ARMIN VALDIVIA 11/15 Released w/o Limitations [facility] Element B-1) [facility](RS[facility] Physical Therapy) OUTPATIENT [id number] joint pain, localiz ed in the right karenae TABATHA Jarrett 11/22 Released with Work/Duty Limitations [facility](RSN Physica l Therapy ) [facility] Element B-1) OUTPATIENT [id number] bump in belt region x1mo ARMIN VALDIVIA 01/14 Released w/o Limitations [facility] Element B-1) [facility] TELE CONSULT [id number] Notes Entered by: DREA BOLTON 18 Jan 2013 1054 ------- ------- ------- ------- -- RAD results FCO [facility]ER 01/18 [facility] Element B-1) [facility] Element B-1) OUTPATIENT [id number] poss abscess lower abdomen [facility]CO [facility] 01/21 Released w/o Limitations [facility] Element B-1) [facility] General Surgery) OUTPATIENT [id number] Abdomen Mass (___ cm)/ new pt SUDARSHAN BROWN 01/31 Released w/o Limitations [facility] ) [facility]) OUTPATIENT [id number] Notes Entered by: FLYNN CAMPBELL 01 Feb 2013 1438 ------- ------- ------- ------- -- 28 yoM penis GRACE West 02/01 Sick at Home/Quarter s [facility] Emergen cy Room) [facility](LSL General Surgery) OUTPATIENT [id number] PER SUDARSHAN BULLOCK 02/02 Released w/o Limitations [facility] ) [facility](LSL General Surgery) OUTPATIENT [id number] f/u per SUDARSHAN Bullock 02/03 Released w/o Limitations [facility] ) [facility](LSL General Surgery) OUTPATIENT [id number] per SUDARSHAN Bullock 02/08 Released w/o Limitations [facility] ) [facility] Element B-1) OUTPATIENT [id number] skin conditi on in genital area DONYA JULIAN 05/27 Released w/o Limitations [facility] Element B-1) [facility] Public Health) OUTPATIENT [id number] Notes Entered by: YASMEEN YOST 01 Jul 2013 1538 ------- ------- ------- ------- -- YASMEEN Valente 07/01 Released w/o Limitations [facility] Public Health) [facility] Element B-1) TELE CONSULT [id number] Notes Entered by: EVDA WHITINGE 01 Sep 2013 1112 ------- ------- ------- ------- -- Presc refill needed for skin conditi on NANNETTE CROW 09/01 [facility] Element B-1) [facility](L Emergency Room) OUTPATIENT [id number] Notes Entered by: HIRAL DEL CASTILLO 28 Sep 2013 0750 ------- ------- ------- ------- -- MIGUEL Ceballos 09/28 Released with Work/Duty Limitations [facility](LSL Emergen cy Room) [facility](ZDUSTY N PHA Cell) OUTPATIENT [id number] Notes Entered by: YASMEEN YOST 18 Oct 2013 1027 ------- ------- ------- ------- -- NFTF PHA YASMEEN CLIFTON 10/18 Released w/o Limitations [facility](ZVIRAL RSN PHA Cell) [facility](ZZZRS N Deploymen t Hlth Assess) OUTPATIENT [id number] FRANCISCO JAMES 11/16 Released w/o Limitations [facility](ZVIRAL RSN Deploym ent Hlth Assess) [facility](SDL In and Out Processin g) TELE CONSULT [id number] Notes Entered by: LUIS MAJANO 29 Dec 2013 0936 ------- ------- ------- ------- -- In-Proc essing LUIS MAJANO 12/29 [facility] In and Out Process ing) [facility] Clinic Team C) OUTPATIENT [id number] Upper back and neck pain ADAMA COCHRAN 01/24 Released w/o Limitations [facility] Clinic Team C) [facility] Clinic Team C) TELE CONSULT [id number] Notes Entered by: CARLOS PISANO 2014 0852 ------- ------- ------- ------- -- XRAY results JORDYN PISANO 01/27 [facility] Clinic Team C) [facility] Clinic Team C) OUTPATIENT [id number] Follow- up. Arm, hand, neck, shoulde r, and back pain. ADAMA COCHRAN 02/14 Released w/o Limitations [facility] Clinic Team C) [facility](LSL Rheumatol ogy) OUTPATIENT [id number] Diffuse joint pains (arthra lgias) SALVADOR SHEEHAN 03/07 Released w/o Limitations [facility](LSL Rheumat ology) [facility](LSL Rheumatol ogy) OUTPATIENT [id number] follow up/ joint pain SALVADOR SHEEHAN 04/03 Released w/o Limitations [facility](LSL Rheumat ology) [facility](LSL Rheumatol ogy) OUTPATIENT [id number] Follow up appt SALVADOR SHEEHAN 04/18 Released w/o Limitations [facility](LSL Rheumat ology) [facility] Clinic Team C) OUTPATIENT [id number] F/U on Profile ADAMA COCHRAN 04/20 Released w/o Limitations [facility] Clinic Team C) [facility](SD Optometry ) OUTPATIENT [id number] Eye exam startin g med show time 0900 BEBETO VILLAFANA L 05/02 Released w/o Limitations [facility](SDL Optomet ry) [facility](LSL Rheumatol ogy) OUTPATIENT [id number] follow up/meds AGUILA SALVADOR BESSY 05/31 Released w/o Limitations [facility](LSL Rheumat ology) [facility](SDL Optometry ) OUTPATIENT [id number] eye exam, on plaquen il BEBETO VILLAFANA L 07/25 Released w/o Limitations [facility](SD Optomet ry) [facility] Clinic Team C) OUTPATIENT [id number] Bump on top of head, have had it for a while but now it burst open. ADAMA COCHRAN 09/07 Released w/o Limitations [facility] Clinic Team C) [facility] Clinic Team C) TELE CONSULT [id number] LIMA CHRISTINE 09/12 [facility] Clinic Team C) [facility] Clinic Team C) OUTPATIENT [id number] possibl e cyst on left buttock s BENJAMIN BUENROSTRO 09/12 Released w/o Limitations [facility] Clinic Team C) [facility] Clinic Team C) OUTPATIENT [id number] cyst removal on scalp (consen t in HAINY) ADAMA COCHRAN 09/14 Released w/o Limitations [facility] Clinic Team C) [facility] Rheumatol ogy) TELE CONSULT [id number] Notes Entered by: Tenisha RICHARDS 20 Sep 2014 0809 ------- ------- ------- ------- -- Dr. Sheehan 's pt SALVADOR SHEEHAN 09/20 [facility](L Rheumat ology) [facility] Emergency Room) OUTPATIENT [id number] Notes Entered by: ROSIE QUEZADA 06 Oct 2014 1809 ------- ------- ------- ------- -- 29 y/o M, poss skin abscess CIERRA STEPHENS 10/06 Released w/o Limitations [facility] Emergen cy Room) [facility] Clinic Team C) OUTPATIENT [id number] Joint pains in wrists, ankles, heels. ADAMA COCHRAN 11/27 Released w/o Limitations [facility] Clinic Team C) [facility] Rheumatol ogy) OUTPATIENT [id number] ARTHELISA BYRD 12/06 Released w/o Limitations [facility] Rheumat ology) [facility] Public Health) OUTPATIENT [id number] Notes Entered by: Senthil HAMEED 01 Feb 2015 0849 ------- ------- ------- ------- -- ALICIA KELLY 02/01 Released w/o Limitations [facility] Public Health) [facility] Clinic Team C) TELE CONSULT [id number] Notes Entered by: Senthil HAMEED 01 Feb 2015 0950 ------- ------- ------- ------- -- DARRYN JAVED 02/01 [facility] Clinic Team C) [facility] BHOP) OUTPATIENT [id number] MAXIMO Audit C-score 6, (-) ALLEGRA JOHNSON 02/05 Released w/o Limitations [facility](SDL BHOP) [facility] Clinic Team C) OUTPATIENT [id number] ADAMA Hernandez 02/16 Released w/o Limitations [facility] Clinic Team C) [facility](LSL Rheumatol ogy) OUTPATIENT [id number] follow up ELISA MILES 03/12 Released w/o Limitations [facility](LSL Rheumat ology) [facility] Clinic Team C) OUTPATIENT [id number] MEB Follow- up JOHN DUMONT 03/16 Released w/o Limitations [facility] Clinic Team C) [facility](LSL Rheumatol ogy) TELE CONSULT [id number] Notes Entered by: RABIA MILES 29 Mar 2015 1318 ------- ------- ------- ------- -- MRI f/u ELISA MILES 03/29 [facility](LSL Rheumat ology) [facility](LSL Rheumatol ogy) OUTPATIENT [id number] follow up ELISA MILES 05/07 Released w/o Limitations [facility](LSL Rheumat ology) [facility] Clinic Team C) TELE CONSULT [id number] Notes Entered by: MARIS BADILLO 12 Jun 2015 1502 ------- ------- ------- ------- -- Initial /Annual RILO Results in JUD Gee 06/11 [facility] Clinic Team C) [facility](ZZZSD __Clin ic_Team_B ) OUTPATIENT [id number] vasecto my litigation counsel CYNTHIA Penn 06/27 Released w/o Limitations [facility](ZZZ SD__ Clinic_ Team_B) [facility] Clinic Team C) TELE CONSULT [id number] Notes Entered by: MELE MANRIQUE 26 Jul 2015 1731 ------- ------- ------- ------- -- Vasecto my appt mark FARRISDEVYN WATERSValentin Flores 07/25 [facility] Clinic Team C) [facility] L_FH_Clin ic_Team_B ) OUTPATIENT [id number] pain above the jaw and below the ear. LUIS A FORDE 08/15 Released w/o Limitations [facility](ZZ [facility]_FH_ Clinic_ Team_B) [facility] Clinic Team C) TELE CONSULT [id number] Notes Entered by: MELE MANRIQUE 21 Aug 2015 1015 ------- ------- ------- ------- -- Vasecto ASHLEY Lipscomb 08/20 [facility] Clinic Team C) [facility] Clinic Team C) TELE CONSULT [id number] Notes Entered by: MELE MANRIQUE 24 Oct 2015 0804 ------- ------- ------- ------- -- ASHLEY Quintanilla 10/23 [facility] Clinic Team C) [facility](ZZZSD L_FH_Clin ic_Team_B ) OUTPATIENT [id number] f/u er LUIS A Humphries 10/23 Released w/o Limitations [facility](ZZZ [facility]_FH_ Clinic_ Team_B) [facility](ZZSD L_FH_Clin ic_Team_B ) OUTPATIENT [id number] Follow up on chest pain and cough CYNTHIA RANKIN 10/28 Released with Work/Duty Limitations [facility](ZZZ [facility]__ Clinic_ Team_B) [facility] Clinic Team C) TELE CONSULT [id number] Notes Entered by: MARIS BADILLO 25 Dec 2015 1101 ------- ------- ------- ------- -- [facility] Directe john STEPHENSONESHAW 12/24 [facility] Clinic Team C) [facility] Clinic Team C[facility] OUTPATIENT [id number] ADAMA Pedroza 01/07 Released w/o Limitations [facility] Clinic Team C) [facility] Clinic Team C) OUTPATIENT [id number] Vomitin g, diarrhe a and unable to hold down food or liquids LUIS A FORDE 02/25 Released w/o Limitations [facility] Clinic Team C[facility] Clinic Team C) TELE CONSULT [id number] Notes Entered by: MARIS BADILLO 28 Feb 2016 1529 ------- ------- ------- ------- -- RESULTS OF Annual/ Initial NURIS PURCELL 02/27 [facility] Clinic Team C) [facility] Base Op Med Cell) OUTPATIENT [id number] Notes Entered by: Mark BAKER 29 Feb 2016 0858 ------- ------- ------- ------- -- Annual PHA LUIS A FORDE 02/28 Released w/o Limitations [facility] Base Op Med Cell) [facility] Clinic Team C) OUTPATIENT [id number] vasecto my litigation counsel CYNTHIA Penn 04/16 Released w/o Limitations [facility] Clinic Team C) [facility] Clinic Team C) OUTPATIENT [id number] shellfi sh allergy RANKINCYNTHIA TAYLOR Kaycee 04/23 Released w/o Limitations [facility] Clinic Team [facility]) [facility] Clinic Team C) TELE CONSULT [id number] Notes Entered by: BRENNON ENGEL 26 May 2016 1217 ------- ------- ------- ------- -- resched AILIN Garcia 05/26 [facility] Clinic Team [facility]) [facility] Clinic Team C[facility] OUTPATIENT [id number] Knee pain when walking /runnin kaycee NOLAN CLAY K 09/16 Released w/o Limitations [facility] Clinic Team C[facility] Clinic Team C) OUTPATIENT [id number] Follow up ER visit: contusi on on toe NOLAN CLAY Senthil 10/06 Released w/o Limitations [facility] Clinic Team C) [facility] Physical Therapy) OUTPATIENT [id number] Chondro malacia patella e, left knee OLIVIA BAXTER 10/07 Released w/o Limitations [facility] Physica l Therapy ) [facility] Clinic Team C) TELE CONSULT [id number] Notes Entered by: MARIS BADILLO 08 Oct 2016 1511 ------- ------- ------- ------- -- RESULTS OF Annual/ Initial HERMAN ALVAREZ 10/08 [facility] Clinic Team [facility]) [facility] Physical Therapy) OUTPATIENT [id number] JESSICA MOHAN 10/10 Released w/o Limitations [facility] Physica l Therapy ) [facility] Clinic Team C) TELE CONSULT [id number] Notes Entered by: CRISTELA GARCIA 20 Oct 2016 0940 ------- ------- ------- ------- -- Network Results - Trauma and Joint Surgery - 09/2016 JOHN DUMONT 10/20 [facility] Clinic Team C[facility] Physical Therapy) OUTPATIENT [id number] JESSICA MOHAN 10/20 Released w/o Limitations [facility] Physica l Therapy ) [facility] Clinic Team C) TELE CONSULT [id number] Notes Entered by: MARAH MIGUEL 28 Nov 2016 1330 ------- ------- ------- ------- -- Contact Pt about vasecto my appoint ment MARAH GUTIERREZ 11/28 [facility] Clinic Team [facility]) [facility] Clinic Team C) OUTPATIENT [id number] Vasecto my Appoint ment BERT KAHN 11/28 Released w/o Limitations [facility] Clinic Team C) [facility] Urology) OUTPATIENT [id number] Encount er for ELISA Jones 12/22 Released w/o Limitations [facility] Urology ) [facility] Clinic Team C) TELE CONSULT [id number] Notes Entered by: BARRY POST 26 Dec 2016 1349 ------- ------- ------- ------- -- Request ing Rx for Albenda zole for pin worms BARRY POST 12/26 [facility] Clinic Team C) [facility] Urology) OUTPATIENT [id number] LIU Gallegos 01/21 Released w/o Limitations [facility] Urology ) [facility] Clinic Team C) OUTPATIENT [id number] Notes Entered by: MILIND LATHAM 30 Jan 2017 1444 ------- ------- ------- ------- -- walk in BARRY POST 01/30 Released w/o Limitations [facility] Clinic Team C) [facility] Clinic Team C) OUTPATIENT [id number] Pain on heel on left foot/Ja w pain on right of face. LAINEY CUBA 03/10 Released w/o Limitations [facility] Clinic Team C) [facility] Base Op Med Cell) TELE CONSULT [id number] Notes Entered by: MARY ESPINOZA 12 Mar 2017 1220 ------- ------- ------- ------- -- SHAW Benitez 03/12 [facility] Base Op Med Cell) [facility] BHOP) OUTPATIENT [id number] MARCELO GAVIN 03/16 Released w/o Limitations [facility] BHOP) [facility] Clinic Team C[facility] OUTPATIENT [id number] BERT KELLEY 03/18 Released w/o Limitations [facility] Clinic Team C) [facility] Clinic Team C[facility] OUTPATIENT [id number] vomitin g/BERT Holloway 03/18 Released w/o Limitations [facility] Clinic Team C) [facility] Clinic Team C) TELE CONSULT [id number] Notes Entered by: Jasvir BURGESS 25 Mar 2017 1237 ------- ------- ------- ------- -- Lab results BARRY POST 03/25 [facility] Clinic Team C) [facility] Clinic Team C) OUTPATIENT [id number] severe jaw/ear pain LAINEY CUBA Alton 07/23 Released w/o Limitations [facility] Clinic Team C) [facility] Clinic Team C) TELE CONSULT [id number] Notes Entered by: GLORIA VELASQUEZ 13 Oct 2017 1609 ------- ------- ------- ------- -- Medicat ion refill Epipaloma AILIN BURROWS Jasvir 10/13 [facility] Clinic Team C) [facility] Cell) OUTPATIENT [id number] KELLY RAHMAN 11/11 Released w/o Limitations [facility] Base [facility] Cell) [facility] Mental [facility]) OUTPATIENT [id number] GERARDO CULVER 11/18 Released w/o Limitations [facility] Mental [facility]) [facility] Hearing Conservat ion) OUTPATIENT [id number] Notes Entered by: SHANNON CARVER 24 Nov 20172034 ------- ------- ------- ------- -- Referen ce Audiogr am CHANTELLE CARVER 11/24 Released w/o Limitations [facility]) [facility] Base [facility] Cell) OUTPATIENT [id number] Notes Entered by: KELLY TIM 27 Jul 2018 1026 ------- ------- ------- ------- -- post 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 ent KELLY TIM 07/27 Released w/o Limitations [facility] Base [facility]) [facility] Base Op Med Cell) OUTPATIENT [id number] [id number] KELLY TIM 09/08 Released w/o Limitations [facility] Base Op Med Cell) [facility] Base Op Med Cell) OUTPATIENT [id number] Notes Entered by: Ester FLORES 14 Sep 2018 0848 ------- ------- ------- ------- -- MARYURI Carrera 09/14 Released w/o Limitations [facility] Base Op Med Cell) [facility] Clinic Team C) OUTPATIENT [id number] pain in leg while working out CLAY ECHEVERRIA Ester 09/20 Released w/o Limitations [facility] Clinic Team C) [facility] Physical Therapy) OUTPATIENT [id number] Pain in left knee MITCHELLPATSY 09/28 Released w/o Limitations [facility] Physica l Therapy ) [facility] Clinic Team C) OUTPATIENT [id number] PAC 1330 Profile request for leg pain/PT TEST NEXT WEEK. DO NOT RESCHED MARYURI DE LA PAZ 09/29 Released w/o Limitations [facility] Clinic Team C) [facility] Clinic Team C) TELE CONSULT [id number] Notes Entered by: GERMAINE LUCIO 18 Oct 2018 0756 ------- ------- ------- ------- -- DEUCE Valenzuela 10/18 [facility] Clinic Team C) [facility] Physical Therapy) OUTPATIENT [id number] LETHA OTERO 10/18 Released w/o Limitations [facility] Physica l Therapy ) [facility] Physical Therapy) OUTPATIENT [id number] AZ GONZALEZ 10/20 Released w/o Limitations [facility] Physica l Therapy ) [facility] Clinic Team C) OUTPATIENT [id number] Sharp pain in throat MARYURI MCKAYUTA 10/21 Released w/o Limitations [facility] Clinic Team C) [facility] Clinic Team C) TELE CONSULT [id number] Notes Entered by: MARIS BADILLO 22 Oct 2018 1444 ------- ------- ------- ------- -- RTD Notific ation due to change of MSD DONYA BARNEY 10/22 [facility] Clinic Team C) [facility] Cell) OUTPATIENT [id number] DRHA3 TCON [id number] KELLY TIM 11/01 Released w/o Limitations [facility] Cell) [facility] Physical Therapy) OUTPATIENT [id number] PATSY MITCHELL 12/28 Released w/o Limitations [facility] Physica l Therapy ) [facility] Hearing Conservat ion) OUTPATIENT [id number] Notes Entered by: Mark WHYTE 04 Jan 2019 0838 ------- ------- ------- ------- -- Audiogr am SHPE MIKAYLA WHYTE 01/04 Released w/o Limitations [facility]) [facility] Clinic Team C) OUTPATIENT [id number] PAC SHPE 1240 JANAE MCKAYDIONICIOMark ALCON 01/05 Released w/o Limitations [facility] Clinic Team C) [facility] Optometry ) OUTPATIENT [id number] Eye Exam OG CHILD 02/03 Released w/o Limitations [facility] Optomet ry) [facility] Physical Therapy) OUTPATIENT [id number] PATSY MITCHELL 02/03 Released w/o Limitations [facility] Physica l Therapy ) [facility] Clinic Team C) TELE CONSULT [id number] Notes Entered by: BARRY POST 15 Feb 2019 0826 ------- ------- ------- ------- -- RELAY HEALTH: Request s MFR r/t kidney stone MARYURI MCKAY 02/15 [facility] Clinic Team C) [facility] Clinic Team C) TELE CONSULT [id number] Notes Entered by: BARRY POST 24 Feb 2019 1056 ------- ------- ------- ------- -- RELAY HEALTH: PHAQ DONYA Giraldo 02/24 Released to Self Care [facility] Clinic Team C) [facility] Outpatient Encounter [id number] [id number] Ester BECKWITH 10/06 [facility] PT EDUCATION NOC INDIVID [id number] [id number] 9 Diagnos is: ICD-10- CM G47.36 Sleep related hypoven tilatio n in conditi ons classd elswhr< br/> VANE CUMMINGS LLBrian G 10/13 [facility] Outpatient Encounter [id number] [id number] Ester BECKWITH 10/22 [facility] Outpatient Encounter [id number] [id number] 8 SABINA MARQUEZ 10/31 [facility] OFFICE O/P EST MOD 30-39 MIN 23685-5.65 [id number] Diagnos is: ICD-10- CM K76.0 Fatty (change of) liver, not elsewhe re classif ied<br/ > ARPITYUSUF LICEA L 11/25 [facility] PSYTX W PT 30 MINUTES 32362-4.65 [id number] Diagnos is: ICD-10- CM F43.20 Adjustm ent disorde r, 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
OSMANI ROBERTSON AH T 11/25 [facility] Outpatient Encounter [id number] [id number] 2 11/26 [facility] Outpatient Encounter 99985-2.65 [id number] 0 DHARA JENKINS A 11/27 [facility] Outpatient Encounter [id number] [id number] HEPPAGAPITO L 12/05 [facility] Outpatient Encounter [id number] [id number] 1 DEAN MORTON MMAD T 12/26 [facility] Outpatient Encounter [id number] [id number] 7 01/07 [facility] Outpatient Encounter [id number] [id number] 7 Ester BECKWITH 02/04 [facility] HC PRO PHONE CALL 21-30 MIN 55606-7.65 [id number] Diagnos is: ICD-10- CM Z91.89 Oth persona l risk factors , not elsewhe re classif ied<br/ > Ester BECKWITH 02/05 [facility] Outpatient Encounter [id number] [id number] 2 03/24 [facility] Outpatient Encounter [id number] [id number] 03/27 [facility] Outpatient Encounter [id number]. [id number] 6 SABINA MARQUEZ R 04/02 [facility] QNHP OL DIG ASSMT&MGMT 5-10 89922-2.65 [id number] 5 Diagnos is: ICD-10- CM U07.1 COVID-1 9
JERAD RAMIREZ M 04/17 [facility] Outpatient Encounter [id number]. [id number] 04/17 [facility] Outpatient Encounter [id number] [id number] 2 05/02 [facility] OFFICE O/P EST MOD 30 MIN [id number] [id number] Diagnos is: ICD-10- CM R05.2 Subacut e cough<b r/> YUSUF MUNSON L 05/20 [facility] Outpatient Encounter [id number] [id number] Diagnos is: ICD-10- CM R05.9 Cough, 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
DEAN MORTON MMAD T 06/03 [facility] Outpatient Encounter [id number] [id number] 06/03 [facility] Outpatient Encounter 69217-5.65 [id number] 9 MEGHAN FLORES THAD D 06/08 [facility] Outpatient Encounter 29996-3.65 [id number] 8 MEGHAN FLORES THAD D 06/10 [facility] Outpatient Encounter 77839-6.65 [id number] 2 07/08 [facility] Outpatient Encounter [id number] [id number] MEGHAN FLORES THAD D 07/12 [facility] Outpatient Encounter [id number]. [id number] 2 SANDRAMEGHAN Lopez 08/11 [facility] Outpatient Encounter [id number] [id number] 6 FILIPPO DIMAS P 08/11 [facility] QNHP OL DIG ASSMT&MGMT 5- 54975-7 [id number] 5 Diagnos is: ICD-10- CM R94.5 Abnorma l results of liver functio n studies
FILIPPO DIMAS P 08/11 [facility] Outpatient Encounter [id number]. [id number] 2 08/12 [facility] PSYTX W PT 30 MINUTES 69453-8.65 [id number] Diagnos is: ICD-10- CM Z63.0 Problem s in relatio nship with spouse or partner
OSMANI ROBERTSON T 08/13 [facility] Outpatient Encounter [id number] [id number] 8 08/16 [facility] Outpatient Encounter 46477-4.65 [id number] 7 08/17 [facility] Outpatient Encounter 51326-5.65 [id number] 6 OSMANI ROBERTSON EMILIE T 08/18 [facility] Outpatient Encounter 60754-4.65 [id number] 3 MEGHAN FLORES 08/18 [facility] Outpatient Encounter 13535-2.65 [id number] 2 Ester GUAJARDO 09/01 [facility] Outpatient Encounter 40825-8.65 [id number] 4 09/17 [facility] Outpatient Encounter 80646-6.65 [id number] 2 10/06 [facility] OFFICE O/P EST MOD 30 MIN 85249-7.65 [id number] 3 Diagnos is: ICD-10- CM R05.3 Chronic cough<b r/> GENO ALVARADO 10/13 [facility] SPACER WITHOUT MASK 34127-7.65 [id number] 6 Diagnos is: ICD-10- CM R05.3 Chronic cough<b r/> ROBERT SWANN 10/13 [facility] Outpatient Encounter [id number] [id number] 5 10/18 [facility] Outpatient Encounter 59513-8.65 [id number] 2 10/19 [facility] Outpatient Encounter [id number] [id number] 2 DANYELLJANNAEster A 10/25 [facility] Outpatient Encounter 84010-3.65 [id number] 9 MEGHAN FLORES 11/11 [facility] Outpatient Encounter 50699-3.65 [id number] 5 Ester GUAJARDO A 11/11 [facility] QNHP OL DIG ASSMT&MGMT 5-10 23657-3.65 [id number] 0 Diagnos is: ICD-10- CM R05.3 Chronic cough<b r/> Ester GUAJARDO A 11/12 [facility] Outpatient Encounter 87061-6.65 [id number] 6 DEAN MORTON MMAD T 11/17 [facility] Outpatient Encounter [id number] [id number] 4 MEGHAN FLORES 11/22 [facility] OFFICE O/P EST MOD 30 MIN 65323-0.65 [id number] 769 Diagnos is: ICD-10- CM H60.92 Unspeci fied otitis externa , left ear<br/ > DEAN MORTON MMAD T 11/24 [facility] Outpatient Encounter 69440-2.65 [id number] 6 11/25 [facility] HC PRO PHONE CALL 21-30 MIN 88878-6.65 [id number] 5 Diagnos is: ICD-10- CM F43.10 Post-tr aumatic stress disorde r, 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
SANTI TRUJILLO L 11/26 [facility] Outpatient Encounter 79794-1.65 [id number] 4 SANTI TRUJILLO L 11/30 [facility] HC PRO PHONE CALL 5-10 MIN 65785-9.65 [id number] 8 Diagnos is: ICD-10- CM G47.00 Insomni a, 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
SANTI TRUJILLO L 11/30 [facility] Outpatient Encounter 05999-3.65 [id number] 1 DENA MORTON MMAD T 12/04 [facility] Outpatient Encounter 97556-3.65 [id number] 4 12/06 [facility] Outpatient Encounter 86038-4.65 [id number] 4 12/10 [facility] Outpatient Encounter 51050-8.65 [id number] 6 Ester GUAJARDO A 12/28 [facility] Outpatient Encounter 42196-3.65 [id number] 4 01/05 [facility] Outpatient Encounter 91267-9.65 [id number] 3 Diagnos is: ICD-10- CM M79.643 Pain in 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 hand
Ester ESPINOZATANJAY D 01/05 [facility] Encounter 82088-8.65 [id number] 8 MARGARET GARCÍA ERT C 01/08 [facility] EMERGENCY DEPT VISIT MOD MDM 25372-5.65 [id number] 0 Diagnos is: ICD-10- CM G56.03 Carpal tunnel syndrom e, bilater al upper limbs<b r/> ANGELBING 01/08 [facility] Outpatient Encounter [id number] [id number] 7 MARGARET GARCÍA ERT C 01/08 [facility] OFF/OP EST MAY X REQ PHY/QHP 56671-3.65 [id number] 3 Diagnos is: ICD-10- CM Z23 Encount er for immuniz ation<b r/> JAZMINE ROBERT J 01/08 [facility] PROGRAM INTAKE ASSESSMENT 96156-3.65 [id number] 7 Diagnos is: ICD-10- CM R05.9 Cough, 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
ROSIE LAKHANI TAY R 01/13 [facility] OFFICE O/P EST MOD 30 MIN 29970-0.65 [id number] 9 Diagnos is: ICD-10- CM R05.3 Chronic cough<b r/> PENELOPE,TER RI 01/13 [facility] Outpatient Encounter [id number] [id number] 6 01/19 [facility] Outpatient Encounter 87405-9.65 [id number] 0 01/19 [facility] Outpatient Encounter 06057-9.65 [id number] 5 Diagnos is: ICD-10- CM M25.50 Pain in 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 joint<b r/> CATHI BULL N R 01/19 [facility] Outpatient Encounter 41161-2.65 [id number] 5 Ester BECKWITHLA F 01/21 [facility] OFF/OP EST MAY X REQ PHY/QHP 52184-9.65 [id number] 417 Diagnos is: ICD-10- CM Z71.9 Interface Analyst ing, 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
Ester BECKWITH F 01/21 [facility] OFFICE O/P EST MOD 30 MIN 68622-5.65 [id number] 550 Diagnos is: ICD-10- CM M13.139 Monoart hritis, not elsewhe re classif ied, 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 wrist<b r/> DEAN MORTON MMAD T 01/25 [facility] Outpatient Encounter 48268-3.65 [id number] 7 01/26 [facility] SPEECH/HEA RING THERAPY 71732-6.65 [id number] 5 Diagnos is: ICD-10- CM R49.8 Other voice and resonan ce disorde rs
VIRAJ BAKER N 01/27 [facility] Outpatient Encounter 44242-3.65 [id number] 5 KUNAL ALEGRE 01/31 [facility] Outpatient Encounter 28573-7.65 [id number] 5 DEAN MORTON MMAD T 02/01 [facility] FAMILY PSYTX W/PT 50 MIN 02326-5.65 [id number] Diagnos is: ICD-10- CM Z63.0 Problem s in relatio nship with spouse or partner
KING NOEL A 02/01 [facility] Outpatient Encounter [id number] [id number] SANDRAME[place]AN Lopez 02/02 [facility] Outpatient Encounter [id number] FLORESMEGHAN Lopez 02/02 [facility] MUSCLE TEST NONPARASPI NAL [id number] [id number] Diagnos is: ICD-10- CM G56.03 Carpal tunnel syndrom e, bilater al upper limbs<b r/> GAYLE AG 02/07 [facility] Outpatient Encounter [id number] 02/07 [facility] Outpatient Encounter [id number] 02/08 [facility] HC PRO PHONE CALL 11-20 MIN [id number] [id number] Diagnos is: ICD-10- CM Z71.9 Interface Analyst ing, 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
KYLAH STEVENS 02/08 [facility] HC PRO PHONE CALL 11-20 MIN [id number] [id number] Diagnos is: ICD-10- CM Z71.9 Interface Analyst ing, 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
KYLAH STEVENS 02/08 [facility] Outpatient Encounter [id number] [id number] KYLAH STEVENS 02/10 [facility] Outpatient Encounter [id number] MEGHAN FLORES 02/15 [facility] Outpatient Encounter [id number] Diagnos is: ICD-10- CM G56.03 Carpal tunnel syndrom e, bilater al upper limbs<b r/> CATHI BULL N R 02/16 [facility] Outpatient Encounter [id number] MEGHAN FLORES 02/22 [facility] Outpatient Encounter [id number] Diagnos is: ICD-10- CM G47.00 Insomni a, 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
DEAN MORTON MMAD T 02/24 [facility] Outpatient Encounter [id number] [id number] 03/02 [facility] Outpatient Encounter [id number] [id number] 03/04 [facility] Outpatient Encounter [id number] [id number] 03/04 [facility] Outpatient Encounter [id number] [id number] Ester BECKWITH 03/04 [facility] Outpatient Encounter [id number] [id number] MUKESH MARINELLI 03/05 [facility] EMERGENCY DEPT VISIT [facility] [id number] Diagnos is: ICD-10- CM R07.9 Chest pain, 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
MUKESH MARINELLI S 03/05 [facility] Outpatient Encounter [id number] 03/05 [facility] Outpatient Encounter [id number] 03/[address] [facility] Outpatient Encounter [id number] MUKESH MARINELLI S 03/05 [facility] OFF/OP EST MAY X REQ PHY/QHP [id number] Diagnos is: ICD-10- CM Z71.9 Interface Analyst ing, 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
Ester BECKWITH F 03/08 [facility] OFF/OP CNSLTJ NEW/EST LOW 30 [id number] Diagnos is: ICD-10- CM G56.03 Carpal tunnel syndrom e, bilater al upper limbs<b r/> PREVEL,CHR ISTOPHER D 03/14 [facility] OFFICE O/P EST HI 40 MIN [id number] Diagnos is: ICD-10- CM G56.00 Carpal tunnel syndrom e, 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 upper limb
COUISAIAS WATT G 03/16 [facility] Outpatient Encounter [id number] MEGHAN FLORES 03/16 [facility] Outpatient Encounter [id number] SANDRARICH THAD John 03/17 [facility] EMR DPT VST MAYX REQ PHY/QHP [id number] Diagnos is: ICD-10- CM Z53.21 Proc/tr tmt not crd out d/t pt lv bef seen by th care prov
ANGELA MONTANO 03/21 [facility] Outpatient Encounter [id number] DEAN MORTON SHARMIN T 03/29 [facility] Procedures Combined list of: 1) Procedures from Department of [facility] facilities going back up to thelast 18 months, not all VA non-surgical procedures are included; 2) All procedures from the Department of Defense facilities. Procedure Procedure Type Code Date Perfomer Comments Sourc e Preventive Medicine Administration Of Health Risk Questionnaire Patient-Focused Preventive Medicine Administration Of Health Risk Questionnaire Patient-Focused [id number] 2018 KELLY TIM [facility] Internet Med Svc Qual Nonphys Healthcare Prof Up To 7 Days Estab Patient Internet Med Svc Qual Nonphys Healthcare Prof Up To 7 Days Estab Patient 02720 2018 KELLY TIM Physical Therapy Neuromuscular Re-education Physical Therapy Neuromuscular Re-education 65375 2018 [place] GONZALEZ PT A e ment Kinetic Training Each Additional 15 Minutes PT Assessment Kinetic Training Each Additional 15 Minutes 58889 2018 [place] GONZALEZ Physical Therapy: ___ Se ion Segments, 15 Minutes Each Physical Therapy: ___ Session Segments, 15 Minutes Each 51424 2018 AZ GONZALEZ Modalities Vasopneumatic Device Modalities Vasopneumatic Device 81688 2018 LETHA OTERO PT A e ment Kinetic Training Each Additional 15 Minutes PT Assessment Kinetic Training Each Additional 15 Minutes [id number] 2018 LETHA OTERO Physical Therapy Neuromuscular Re-education Physical Therapy Neuromuscular Re-education 17077 2018 LETHA OTERO Physical Therapy: ___ Se ion Segments, 15 Minutes Each Physical Therapy: ___ Session Segments, 15 Minutes Each 39711 2018 LETHA OTERO [facility] Osteopathic Manip Treatment (OMT) 1-2 Body Regions Involved Osteopathic Manip Treatment (OMT) 1-2 Body Regions Involved 05317 2018 PATSY MITCHELL [facility] Physical Therapy Service Evaluation Low Complexity Physical Therapy Service Evaluation Low Complexity 80709 2018 PATSY MITCHELL [facility] Preventive Medicine Administration Of Health Risk Questionnaire Patient-Focused Preventive Medicine Administration Of Health Risk Questionnaire Patient-Focused 92717 2018 CELE MICHAEL [facility] Internet Med Svc Qual Nonphys Healthcare Prof Up To 7 Days Estab Patient Internet Med Svc Qual Nonphys Healthcare Prof Up To 7 Days Estab Patient 80262 2018 KELLY TIM [facility] Preventive Medicine Administration Of Health Risk Questionnaire Patient-Focused Preventive Medicine Administration Of Health Risk Questionnaire Patient-Focused 80350 2018 KELLY TIM [facility] Preventive Medicine Administration Of Health Risk Questionnaire Patient-Focused Preventive Medicine Administration Of Health Risk Questionnaire Patient-Focused 06827 2018 KELLY TIM [facility] Internet Med Svc Qual Nonphys Healthcare Prof Up To 7 Days Estab Patient Internet Med Svc Qual Nonphys Healthcare Prof Up To 7 Days Estab Patient 14935 2018 KELLY TIM [facility] Threshold Audiogram (Pure Tone) Automated Threshold Audiogram (Pure Tone) Automated 0208T 2017 CHANTELLE CARVER [facility] Psychometric Neuropsych Testing Battery Admin By Computer Psychometric Neuropsych Testing Battery Admin By Computer 19699 2017 GERARDO MONTIEL [facility] Preventive Medicine Administration Of Health Risk Questionnaire Patient-Focused Preventive Medicine Administration Of Health Risk Questionnaire Patient-Focused 90418 2017 KELLY TIM [facility] Internet Med Svc Qual Nonphys Healthcare Prof Up To 7 Days Estab Patient Internet Med Svc Qual Nonphys Healthcare Prof Up To 7 Days Estab Patient 71497 2017 KELLY TIM [facility] Non-Physician Phone Call To Patient/Provider Brief (5-10min) Non-Physician Phone Call To Patient/Provider Brief (5-10min) 79479 2016 BARRY POST [facility] Internet Med Svc Qual Nonphys Healthcare Prof Up To 7 Days Estab Patient Internet Med Svc Qual Nonphys Healthcare Prof Up To 7 Days Estab Patient 33131 2016 MARCELO MALCOLM [facility] Non-Physician Phone Call To Patient/Provider Brief (5-10min) Non-Physician Phone Call To Patient/Provider Brief (5-10min) 53524 2016 BARRY POST Anesthesia Lower Abdomen For Vasectomy, Unilateral/Bilateral Anesthesia Lower Abdomen For Vasectomy, Unilateral/[place]il[place] 76324 2016 LIU BARKLEY Surgery Vas Deferens Vasectomy Surgery Vas Deferens Vasectomy 71368 2016 LIU BARKLEY Non-Physician Phone Call To Pt/Provider Lengthy (21-30 min) Non-Physician Phone Call To Pt/Provider Lengthy (21-30 min) 70684 2016 BARRY POST Physician Supervised Group Educational Services Physician Supervised Group Educational Services 79598 2016 ELISA BRINK [facility] Psychometric Emotional / Behavioral A e ment Psychometric Emotional / Behavioral Assessment 85375 2016 BERT KAHN [facility] Modalities Cryotherapy Cold Packs Modalities Cryotherapy Cold Packs 67599 2016 JESSICA MOHAN A isted Exercises For ROM Assisted Exercises For ROM 47960 2016 JESSICA MOHAN A isted Exercises For ROM Assisted Exercises For ROM 25479 2016 JESSICA MOHAN Physical Therapy Service Evaluation Low Complexity Physical Therapy Service Evaluation Low Complexity 14370 2016 OLIVIA BAXTER [facility] Internet Med Svc Qual Nonphys Healthcare Prof Up To 7 Days Estab Patient Internet Med Svc Qual Nonphys Healthcare Prof Up To 7 Days Estab Patient 54160 2016 ASHLEY ENGEL [facility] Health And Behav A e mt Each 15 Min Initial A e ment Health And Behav Assessmt Each 15 Min Initial Assessment 81749 2014 ALLEGRA LASSTIER [facility] Visual Valdivia Test Intermediate Examination Visual Valdivia Test Intermediate Examination 24259 2014 BEBETO VILLAFANA Scanning Computerized Ophthalmic Diagnostic Imaging Retina Scanning Computerized Ophthalmic Diagnostic Imaging Retina 27660 2014 BEBETO VILLAFANA Scanning Computerized Ophthalmic Diagnostic Imaging Retina Scanning Computerized Ophthalmic Diagnostic Imaging Retina 36952 2014 BEBETO VILLAFANA [facility] Determination Of Refractive State Determination Of Refractive State 11227 2014 BEBETO VILLAFANA [facility] Ophthalmological New Patient Start Comprehensive Care Ophthalmological New Patient Start Comprehensive Care 49460 2014 BEBETO VILLAFANA [facility] Postoperative Visit, Without Charge Postoperative Visit, Without Charge 04090 2012 SUDARSHAN BROWN Incision And Drainage Of Skin Absce Incision And Drainage Of Skin Abscess 69194 2012 SUDARSHAN BROWN He was consented, prepped and draped in the usual sterile fashion. Local anesthetic was infection and an incision was made down to the area of induration. No further fluid was drained and the pervious I&D site was found to communicated with the area of induration. Both areas were irrigated, packed and dressed with gauze. The patient tolerated the procedure well. [facility] Physical Therapy: ___ Se ion Segments, 15 Minutes Each Physical Therapy: ___ Session Segments, 15 Minutes Each 52762 2012 TABATHA CROCKETT [facility] Physical Therapy Service Evaluation Physical Therapy Service Evaluation 55220 2012 TABATHA CROCKETT [facility] Psychometric Neuropsych Testing Battery Admin By Computer Psychometric Neuropsych Testing Battery Admin By Computer 92401 2011 JAGDISH JENKINS [facility] Physical Therapy: ___ Se ion Segments, 15 Minutes Each Physical Therapy: ___ Session Segments, 15 Minutes Each 77315 2010 THOMPSON HURT [facility] Physical Therapy Service Re-Evaluation Physical Therapy Service Re-Evaluation 85831 2010 THOMPSON HURT [facility] Non-Physician Phone Call To Patient/Provider Brief (5-10min) Non-Physician Phone Call To Patient/Provider Brief (5-10min) 92179 2010 BLAINE LOYD [facility] Physical Therapy Service Re-Evaluation Physical Therapy Service Re-Evaluation 70036 2010 THOMPSON HURT [facility] Modalities Ultrasound Modalities Ultrasound 35741 2010 MATTHEW BOWMAN [facility] Physical Therapy Neuromuscular Re-education Physical Therapy Neuromuscular Re-education 96587 2010 MATTHEW BOWMAN [facility] Physical Therapy: ___ Se ion Segments, 15 Minutes Each Physical Therapy: ___ Session Segments, 15 Minutes Each 20145 2010 MATTHEW BOWMAN DoD Modalities Ultrasound Modalities Ultrasound 39510 2010 MARKEL LAZAR LP [facility] Physical Therapy: ___ Se ion Segments, 15 Minutes Each Physical Therapy: ___ Session Segments, 15 Minutes Each 27566 2010 MARKEL LAZAR LP [facility] Physical Therapy Neuromuscular Re-education Physical Therapy Neuromuscular Re-education 89539 2010 MARKEL LAZAR LP DoD Modalities Ultrasound Modalities Ultrasound 61069 2010 MATTHEW BOWMAN [facility] Physical Therapy Neuromuscular Re-education Physical Therapy Neuromuscular Re-education 35723 2010 MATTHEW BOWMAN DoD Physical Therapy: ___ Se ion Segments, 15 Minutes Each Physical Therapy: ___ Session Segments, 15 Minutes Each 92388 2010 MATTHEW BOWMAN DoD Modalities Ultrasound Modalities Ultrasound 59198 2009 MARKEL LAZAR LP [facility] Physical Therapy Neuromuscular Re-education Physical Therapy Neuromuscular Re-education 59696 2009 MARKEL LAZAR LP [facility] Physical Therapy: ___ Se ion Segments, 15 Minutes Each Physical Therapy: ___ Session Segments, 15 Minutes Each 82545 2009 MARKEL LAZAR LP [facility] Modalities Ultrasound Modalities Ultrasound 97037 2009 MARKEL LAZAR LP [facility] Physical Therapy Neuromuscular Re-education Physical Therapy Neuromuscular Re-education 84488 2009 MARKEL LAZAR LP [facility] Physical Therapy: ___ Se ion Segments, 15 Minutes Each Physical Therapy: ___ Session Segments, 15 Minutes Each 74485 2009 MARKEL LAZAR LP DoD Modalities Ultrasound Modalities Ultrasound 05487 2009 MATTHEW BOWMAN Do[facility] Physical Therapy Neuromuscular Re-education Physical Therapy Neuromuscular Re-education 73296 2009 MATTHEW BOWMAN DoD Physical Therapy: ___ Se ion Segments, 15 Minutes Each Physical Therapy: ___ Session Segments, 15 Minutes Each 14585 2009 MATTHEW BOWMAN DoD Modalities Ultrasound Modalities Ultrasound 99634 2009 MATTHEW BOWMAN Do[facility] Physical Therapy Neuromuscular Re-education Physical Therapy Neuromuscular Re-education 13920 2009 MATTHEW BOWMAN Physical Therapy: ___ Se ion Segments, 15 Minutes Each Physical Therapy: ___ Session Segments, 15 Minutes Each 95703 2009 MATTHEW BOWMAN Physical Therapy: ___ Se ion Segments, 15 Minutes Each Physical Therapy: ___ Session Segments, 15 Minutes Each 75539 2009 LICHA, THOMPSONJOSE Ornelas Physical Therapy Service Evaluation Physical Therapy Service Evaluation 98933 2009 LICHATHOMPSON CISNEROS Audiogram (Screening) Audiogram (Screening) 13634 2008 MORIAH PHOENIX Visual Valdivia Test Limited Examination Visual Valdivia Test Limited Examination 08028 2008 MORIAH PHOENIX Physical Therapy Service Evaluation Physical Therapy Service Evaluation 47347 2006 JUSTYNA GUZMAN Osteopathic Manip Treatment (OMT) 1-2 Body Regions Involved Osteopathic Manip Treatment (OMT) 1-2 Body Regions Involved 70477 2006 MONI ZAPATA Spectacles Services Fitting Monofocal Except For Aphakia Spectacles Services Fitting Monofocal Except For Aphakia 63665 2006 ADELA MEDINA Determination Of Refractive State Determination Of Refractive State 37753 2006 ADELA MEDINA Ophthalmological New Patient Start Comprehensive Care Ophthalmological New Patient Start Comprehensive Care 56809 2006 ADELA MEDINA Physical Therapy Service Re-Evaluation Physical Therapy Service Re-Evaluation 19067 PATSY MITCHELL Osteopathic Manip Treatment (OMT) 1-2 Body Regions Involved Osteopathic Manip Treatment (OMT) 1-2 Body Regions Involved 94517 PATSY MITCHELL Physical or manipulative therapy performed for maintenance rather than judaism PATSY MITCHELL Threshold Audiogram (Pure Tone) Automated Threshold Audiogram (Pure Tone) Automated 0208T MIKAYLA WHYTE [employer] [facility] Fitting Monofocal Except For Aphakia Spectacles Services Fitting Monofocal Except For Aphakia 20483 OG CHILD [id number] 18145 [facility] Ophthalmological New Patient Start Comprehensive Care Ophthalmological New Patient Start Comprehensive Care 23173 OG CHILD Determination Of Refractive State Determination Of Refractive State 23788 OG CHILD [facility] INFUSION, NORMAL SALINE SOLUTION , 1000 CC 2008 DoD PHYSICAL THERAPY EVALUATION 2006 [facility] OSTEOPATHIC MANIPULATIVE TREATMENT (OMT); 1-2 BODY REGIONS INVOLVED 2006 [facility] FITTING OF SPECTACLES, EXCEPT FOR APHAKIA; MONOFOCAL 2006 [facility] THERAPEUTIC PROCEDURE, 1 OR MORE AREAS, EACH 15 MINUTES; THERAPEUTIC EXERCISES TO DEVELOP STRENGTH AND ENDURANCE, RANGE OF MOTION AND FLEXIBILITY 2010 [facility] TELE ASSESS & MGT SRV PROV QUAL NONPHYS HLTH CARE PRO TO EST PAT,PARENT,GUARD NOT ORIG REL ASSESS & MGT SRV PROV W/IN PREV 7 DAYS NOR LEAD ASSESS & MGT SRV/PX W/IN NXT 24 HR/SOON APT;5-10 MIN MED DIS 2010 DoD PHYSICAL THERAPY RE-EVALUATION 2010 DoD APPLICATION OF A MODALITY TO 1 OR MORE AREAS; ULTRASOUND, EACH 15 MINUTES 2010 DoD APPLICATION OF A MODALITY TO 1 OR MORE AREAS; ULTRASOUND, EACH 15 MINUTES 2010 DoD APPLICATION OF A MODALITY TO 1 OR MORE AREAS; ULTRASOUND, EACH 15 MINUTES 2010 DoD APPLICATION OF A MODALITY TO 1 OR MORE AREAS; ULTRASOUND, EACH 15 MINUTES 2009 DoD APPLICATION OF A MODALITY TO 1 OR MORE AREAS; ULTRASOUND, EACH 15 MINUTES 2009 DoD APPLICATION OF A MODALITY TO 1 OR MORE AREAS; ULTRASOUND, EACH 15 MINUTES 2009 DoD APPLICATION OF A MODALITY TO 1 OR MORE AREAS; ULTRASOUND, EACH 15 MINUTES 2009 DoD THERAPEUTIC PROCEDURE, 1 OR MORE AREAS, EACH 15 MINUTES; THERAPEUTIC EXERCISES TO DEVELOP STRENGTH AND ENDURANCE, RANGE OF MOTION AND FLEXIBILITY 2009 [facility] INJECTION, METHYLPREDNISOLONE SODIUM SUCCINATE, UP TO 125 MG 2009 [facility] PHYSICAL OR MANIPULATIVE THERAPY PERFORMED FOR MAINTENANCE RATHER THAN ZOROASTRIANISM 2018 [facility] DETERMINATION OF REFRACTIVE STATE 2018 [facility] PURE TONE AUDIOMETRY (THRESHOLD), AUTOMATED; AIR ONLY 2018 [facility] PHYSICAL OR MANIPULATIVE THERAPY PERFORMED FOR MAINTENANCE RATHER THAN ZOROASTRIANISM 2018 [facility] ADMINISTRATION OF PATIENT-FOCUSED HEALTH RISK ASSESSMENT INSTRUMENT (EG, HEALTH HAZARD APPRAISAL) WITH SCORING AND DOCUMENTATION, PER STANDARDIZED INSTRUMENT 2018 [facility] THERAPEUTIC ACTIVITIES, DIRECT (ONE-ON-ONE) PATIENT CONTACT (USE OF DYNAMIC ACTIVITIES TO IMPROVE FUNCTIONAL PERFORMANCE), EACH 15 MINUTES 2018 [facility] APPLICATION OF A MODALITY TO 1 OR MORE AREAS; VASOPNEUMATIC DEVICES 2018 DoD OSTEOPATHIC MANIPULATIVE TREATMENT (OMT); 1-2 BODY REGIONS INVOLVED 2018 DoD ADMINISTRATION OF PATIENT-FOCUSED HEALTH RISK ASSESSMENT INSTRUMENT (EG, HEALTH HAZARD APPRAISAL) WITH SCORING AND DOCUMENTATION, PER STANDARDIZED INSTRUMENT 2018 DoD ADMINISTRATION OF PATIENT-FOCUSED HEALTH RISK ASSESSMENT INSTRUMENT (EG, HEALTH HAZARD APPRAISAL) WITH SCORING AND DOCUMENTATION, PER STANDARDIZED INSTRUMENT 2018 DoD ADMINISTRATION OF PATIENT-FOCUSED HEALTH RISK ASSESSMENT INSTRUMENT (EG, HEALTH HAZARD APPRAISAL) WITH SCORING AND DOCUMENTATION, PER STANDARDIZED INSTRUMENT 2018 DoD PURE TONE AUDIOMETRY (THRESHOLD), AUTOMATED; AIR ONLY 2017 [facility] NEUROPSYCHOLOGICAL TESTING (EG, [place] CARD SORTING TEST), ADMINISTERED BY A COMPUTER, WITH QUALIFIED HEALTH EXHIBITION ORGANISER INTERPRETATION AND REPORT 2017 DoD ADMINISTRATION OF PATIENT-FOCUSED HEALTH RISK ASSESSMENT INSTRUMENT (EG, HEALTH HAZARD APPRAISAL) WITH SCORING AND DOCUMENTATION, PER STANDARDIZED INSTRUMENT 2017 DoD TELE ASSESS & MGT SRV PROV QUAL NONPHYS HLTH CARE PRO TO EST PAT,PARENT,GUARD NOT ORIG REL ASSESS & MGT SRV PROV W/IN PREV 7 DAYS NOR LEAD ASSESS & MGT SRV/PX W/IN NXT 24 HR/SOON APT;5-10 MIN MED DIS 2016 DoD ONLINE ASSESS &MANAG SERV PROVIDE,A QUAL NONPHYS HCP TO AN ESTABLISHED PAT/GUARDIAN,NOT ORIGINAT FRM RELAT ASSESS &MANAG SERV PROVIDE W/IN THE PREV 7 DAYS,USE THE INTERNET/SIMILAR [email or web address] [email or web address] 2016 [facility] TELE ASSESS & MGT SRV PROV QUAL NONPHYS HLTH CARE PRO TO EST PAT,PARENT,GUARD NOT ORIG REL ASSESS & MGT SRV PROV W/IN PREV 7 DAYS NOR LEAD ASSESS & MGT SRV/PX W/IN NXT 24 HR/SOON APT;5-10 MIN MED DIS 2016 DoD ANESTHESIA FOR PROCEDURES ON MALE GENITALIA (INCLUDING OPEN URETHRAL PROCEDURES); VASECTOMY, UNILATERAL/BILATERAL 2016 DoD PHYS/OTH QUALIFIED HEALTH EXHIBITION ORGANISER QUALIFIED,EDUCATION,TR AIN,LICENSURE/REGULATI ON (WHEN APPLICABLE) EDUC SER RENDERED TO PATS IN A GRP SETTING (EG,,OBESITY,O R DIABETIC INSTRUCT) 2016 [facility] BRIEF EMOTIONAL/BEHAVIORAL ASSESSMENT (EG, DEPRESSION INVENTORY, ATTENTION-DEFICIT/HYPE RACTIVITY DISORDER [ADHD] SCALE), WITH SCORING AND DOCUMENTATION, PER STANDARDIZED INSTRUMENT 2016 [facility] APPLICATION OF A MODALITY TO 1 OR MORE AREAS; HOT OR COLD PACKS 2016 [facility] THERAPEUTIC PROCEDURE, 1 OR MORE AREAS, EACH 15 MINUTES; THERAPEUTIC EXERCISES TO DEVELOP STRENGTH AND ENDURANCE, RANGE OF MOTION AND FLEXIBILITY 2016 [facility] PHYSICAL THERAPY EVALUATION:LOW COMPLEXITY,REQ:HIST W NO PERS FACT &/COMORB THAT IMPACT PLAN OF CARE;CLIN DECIS MAKING OF LOW COMPLEXITY,TYPICALLY,2 0 MIN ARE SPENT [id number] W THE PATIENT &/FAMILY 2016 [facility] ONLINE ASSESS &MANAG SERV PROVIDE,A QUAL NONPHYS HCP TO AN ESTABLISHED PAT/GUARDIAN,NOT ORIGINAT [facility] RELAT ASSESS &MANAG SERV PROVIDE W/IN THE PREV 7 DAYS,USE THE [email or web address] NETWORK 2016 [facility] HEALTH&BEHAV ASSESSMENT (EG, HEALTH-FOC CLINICAL INTERVIEW, BEHAVIORAL OBSERVATIONS, PSYCHOPHYSICOLOGICAL MONITOR, HEALTH-ORIENT QUESTIONNAIRES), EA 15 MIN [id number] W THE PATIENT; INIT ASSESSMENT 2014 [facility] VISUAL FIELD EXAMINATION, UNI OR BILATERAL, WITH MEDICAL DIAGNOSTIC EVAL; INTERMEDIATE EXAM (EG, AT LEAST 2 ISOPTERS ON GOLDMANN PERIMETER, OR SEMIQUANT, AUTO SUPRATHRESHOLD SCREEN PROGRAM, MARSHALL 2014 [facility] SCANNING COMPUTERIZED OPHTHALMIC DIAGNOSTIC IMAGING, POSTERIOR SEGMENT, WITH INTERPRETATION AND REPORT, UNILATERAL OR BILATERAL; RETINA 2014 [facility] THERAPEUTIC, PROPHYLACTIC, OR DIAGNOSTIC INJECTION (SPECIFY SUBSTANCE OR DRUG); SUBCUTANEOUS OR INTRAMUSCULAR 2013 [facility] POSTOPERATIVE FOLLOW-UP VISIT, NORMALLY INCLUDED IN THE SURGICAL PACKAGE, INDICATE THAT EVALUATION & MANAGEMENT SERVICE WAS PERFORMED DURING A POSTOPERATIVE PERIOD REASON RELATED ORIGINAL PROCEDURE 2012 [facility] POSTOPERATIVE FOLLOW-UP VISIT, NORMALLY INCLUDED IN THE SURGICAL PACKAGE, INDICATE THAT EVALUATION & MANAGEMENT SERVICE WAS PERFORMED DURING A POSTOPERATIVE PERIOD REASON RELATED ORIGINAL PROCEDURE 2012 [facility] INCISION AND DRAINAGE OF ABSCESS (EG, CARBUNCLE, SUPPURATIVE HIDRADENITIS, CUTANEOUS OR SUBCUTANEOUS ABSCESS, CYST, FURUNCLE, OR PARONYCHIA); SIMPLE OR SINGLE 2012 [facility] INCISION AND DRAINAGE OF ABSCESS (EG, CARBUNCLE, SUPPURATIVE HIDRADENITIS, CUTANEOUS OR SUBCUTANEOUS ABSCESS, CYST, FURUNCLE, OR PARONYCHIA); COMPLICATED OR MULTIPLE 2012 [facility] THERAPEUTIC PROCEDURE, 1 OR MORE AREAS, EACH 15 MINUTES; THERAPEUTIC EXERCISES TO DEVELOP STRENGTH AND ENDURANCE, RANGE OF MOTION AND FLEXIBILITY 2012 [facility] NEUROPSYCHOLOGICAL TESTING (EG, [place] CARD SORTING TEST), ADMINISTERED BY A COMPUTER, WITH QUALIFIED HEALTH EXHIBITION ORGANISER INTERPRETATION AND REPORT 2011 [facility] Social History Combined list of available smoking, tobacco, and other 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 Social History Type Response Date Comment Sour e Tobacco smoking status NHIS VA-TOBACCO FORMER USER 05/20/2023 [facility] History of tobacco use VA-TOBACCO QUIT 15 YRS OR MORE 05/20/2023 [facility] History of tobacco use SD-TOBACCO NEVER USED 05/28/2022 [facility] History of tobacco use SD-TOBACCO NEVER USED 02/26/2021 [facility] This section is an empty social history section. [facility] Plan of Care List of future care activities from Department of 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 Additional future care activities may be listed in the Assessment and Plan section. Date/Time Care Activity Care Activity Detail Facili ty 04/01/2024 AMBULATORY - PSYCHIATRY AMBULATORY - PSYC [facility] 04/28/2024 AMBULATORY - MED[facility] 05/05/2024 AMBULATORY - MEDICINE AMBULATORY - MEDICI [facility] 05/27/2024 AMBULATORY - MEDICINE AMBULATORY - MEDICI [facility] 02/17/2024 Consult Order PLASTIC SURGERY OUTPT STL Cons Director External Communications's Choice [facility] 03/16/2024 Consult Order COMMUNITY CARE-S TL PLASTIC SURG Cons Director External Communications's [facility] 03/21/2024 Procedure Order CP EKG STL CP EK G - STL Proc Director External Communications's [facility]
--- OUTSIDE RECORDS SUMMARY | 2024-03-31 00:56 | XMS_ITS ---
Author Name [facility] [facility] [place] [facility] [place] [facility] [place] Address [address] [place] [address] Care Team Providers Care Block Saw Operator Name Role Phone KODAK MORTON Primary Care Provider Unavailabl e Insurance Providers: All historical and current Section Date Range: From patient's date of to the date document was created. This section includes the names of all active insurance providers for the patient. Insurance Provider Type of Coverage Plan Name Start of Policy Coverage End of Policy Coverage Group Number Member ID Insurance Provider's Telephone Number Policy Victoria's Name Patient's Relationship to Policy Victoria [place] PREFERRED PROVIDER ORGANIZAT [place]ON (PPO) BLUE CHOIC E PREFE RR Apr 13, 2020 [id number] [phone] BOOGIE PINEDA ANDON PATIENT [employer] PREFERRED PROVIDER ORGANIZAT ION (PPO) BLUE CHOIC E PREFE RR Apr 13, 2020 [id number] [phone] YLNN,BOOGIE ANDON PATIENT [employer] PREFERRED PROVIDER ORGANIZAT ION (PPO) BLUE CHOIC E PREFE RR Apr 13, 2020 [id number] [phone] BOOGIE PINEDA ANDON PATIENT [place] PREFERRED PROVIDER ORGANIZAT ION (PPO) BLUE CHOIC E PREFE RR Apr 13, 2020 [id number] [phone] BOOGIE PINEDA PATIENT PRIME THERAPEUTI CS RX PRESCRIPT ION BCBS[place] Apr 13, 2020 [id number] [phone] BOOGIE PINEDA PATIENT [facility] [address] [place] RE May 10, 2019 SELECT [id number] 22 BOOGIE PINEDA PATIENT Selected Encounter This section includes the information on record at [place] for the Encounter. Date/Time Encounter Type Encounter Description Reason Provider Source August 19, 2023 09:20 AM Outpatient Encounter ADMIN PAT ACTIVTIES (MASNONCT) JONATAN ROBERTSON Valentin Encounter Template Text not used by [place] Plan of Treatment: Future Appointments (+ 6 months) and Future Tests (+/- 45 days) The Plan of Treatment section includes future care activities for the patient from all [place] treatmentfacilities. This section includes future appointments and future orders which are active, pending or scheduled. Future Appointments This section includes appointments that were scheduled to occur 6 months from the date of the Encounter, up to a maximum of 20 appointments. The data comes from all [place] treatment facilities. Appointment Date/Time Appointment Type Appointme nt Facility Name Oct 14, 2023 09:15 AM AMBULATORY - MEDICINE [facility] Oct 14, 2023 10:00 AM AMBULATORY - MEDICINE [facility] Nov 18, 2023 10:00 AM AMBULATORY - MEDICINE [facility] Nov 25, 2023 10:00 AM AMBULATORY - MEDICINE [facility] Jan 09, 2024 11:29 AM AMBULATORY - MEDICINE [facility] Jan 09, 2024 03:00 PM AMBULATORY - NONE [facility] Jan 14, 2024 09:00 AM AMBULATORY - MEDICINE [facility] Jan 14, 2024 10:00 AM AMBULATORY - MEDICINE [facility] Jan 26, 2024 01:00 PM AMBULATORY - MEDICINE [facility] Jan 28, 2024 01:45 PM AMBULATORY - REHAB MEDICIN E [facility] Feb 02, 2024 02:00 PM AMBULATORY - PSYCHIATRY [facility] Feb 08, 2024 09:00 AM AMBULATORY - NEUROLOGY [facility] Feb 12, 2024 02:30 PM AMBULATORY - NONE [facility] Feb 17, 2024 01:00 PM AMBULATORY - MEDICINE [facility] Social History: Smoking Status (Most current) and Tobacco Use (All prior to encounter date) This section includes the most current, and the historical, smoking and tobacco- related health factors from the [place] facility where the Encounter took place. Current Smoking Status This section includes the most current smoking, or tobacco-related health factor, from the [place] facility where the Encounter took place. Date/Time Current Smoking Status Comment Facil ity Feb 26, 2021 03:59 PM VA-TOBACCO NEVER USED [facility] Encounter Notes: All associated encounter notes This section contains the clinical notes associated to the Encounter. Date/Time Encounter Note(s) Provider Source August 19, 2023 09:20 AM PHYSICIAN LETTERS: LOCAL TITLE: NO CONTACT LETTER ST[facility] STANDARD TITLE: PHYSICIAN LETTERS DATE OF NOTE: AUGUST 19, 2023@09:20 ENTRY DATE: AUGUST 19, 2023@09:20:46 AUTHOR: MARIS JUNIOR COSIGNER: URGENCY: STATUS: COMPLETED [facility] [address] [place] [address] AUGUST 19, 2023 JORDYN PINEDA [address] [place] [id number] Dear Jordyn Pineda, Thank you for choosing the [facility] as your primary choice for health care. As a partner in your health care, we are attempting to contact you because we have been unsuccessful in reaching you by phone to schedule your clinic appointment. Please call us at [phone], extension [phone] to speak to us regarding [facility]. Your good health is important to us. Please contact us within 2 weeks from the date of this letter. If we do not hear from you, we will notify your referring provider and a new referral will be required to schedule an appointment. IMPORTANT: Due to COVID-19 we have greatly expanded our telehealth options, please contact the clinic to inquire about scheduling. Sincerely, MARIS JUNIOR LEAD SHREDDED FILLER CIGAR MAKER MACHINE JORDYN PINEDA [facility]
--- OUTSIDE RECORDS SUMMARY | 2024-03-31 00:57 | XMS_ITS | Encounter Summary ---
Author Name [facility] [facility] [place] [facility] [place] Address [address] [place] [address] Care Team Providers Care Solar Panel Installation Supervisor Name Role Phone KODAK MORTON Primary Care [...] CHOIC E PREFE RR Apr 13, 2020 [id number] [phone] BOOGIE PINEDA PATIENT [employer] [employer] PREFERRED PROVIDER ORGANIZAT ION (PPO) BLUE CHOIC E PREFE RR Apr 13, 2020 [id number] [phone] STEPHANIE PINEDAON PATIENT [employer] [employer] [place] PREFERRED PROVIDER ORGANIZAT ION (PPO) BLUE CHOIC E PREFE RR Apr 13, 2020 [id number] [phone] BOOGIE PINEDA PATIENT [place] PREFERRED PROVIDER ORGANIZAT ION (PPO) BLUE CHOIC E PREFE RR Apr 13, 2020 [id number] [phone] BOOGIE PINEDA PATIENT PRIME THERAPEUTI CS RX PRESCRIPT ION BCBSI L [place] Apr 13, 2020 [id number] [phone] BOOGIE PINEDA PATIENT [facility] [address] [place] May 10, 2019 SELECT [id number] 22 BOOGIE PINEDA PATIENT Selected Encounter This section includes the information on record at [place] for the Encounter. Date/Time Encounter Type Encounter Description Reason Pro vider Source August 18, 2023 10:41 AM Outpatient Encounter PULMONARY/CHEST IHE Encounter Template Text not used by [place] Plan of Treatment: Future Appointments (+ 6 months) and Future Tests (+/- 45 days) The Plan of Treatment section includes future care activities for the patient from all [place] treatmentfacilities. This section includes future appointments and future orders which are active, pending or scheduled. Future Appointments This section includes appointments that were scheduled to occur 6 months from the date of the Encounter, up to a maximum of 20 appointments. The data comes from all [place] treatment facilities. Appointment Date/Time Appointment Type Appointme nt Facility Name Oct 14, 2023 09:15 AM AMBULATORY - MEDICINE [facility] Oct 14, 2023 10:00 AM AMBULATORY - MEDICINE [facility] Nov 18, 2023 10:00 AM AMBULATORY - MEDICINE [facility] Nov 25, 2023 10:00 AM AMBULATORY - MEDICINE [facility] Jan 09, 2024 11:29 AM AMBULATORY - MEDICINE [facility] Jan 09, 2024 03:00 PM AMBULATORY - NONE [facility] Jan 14, 2024 09:00 AM AMBULATORY - MEDICINE [facility] Jan 14, 2024 10:00 AM AMBULATORY - MEDICINE [facility] Jan 26, 2024 01:00 PM AMBULATORY - MEDICINE [facility] Jan 28, 2024 01:45 PM AMBULATORY - REHAB MEDICIN E [facility] Feb 02, 2024 02:00 PM AMBULATORY - PSYCHIATRY [facility] Feb 08, 2024 09:00 AM AMBULATORY - NEUROLOGY [facility] Feb 12, 2024 02:30 PM AMBULATORY - NONE [facility] Feb 17, 2024 01:00 PM AMBULATORY - MEDICINE [facility] Social History: Smoking Status (Most current) and Tobacco Use (All prior to encounter date) This section includes the most current, and the historical, smoking and tobacco- related health factors from the [place] facility where the Encounter took place. Current Smoking Status This section includes the most current smoking, or tobacco-related health factor, from the [place] facility where the Encounter took place. Date/Time Current Smoking Status Comment Facil ity Feb 26, 2021 03:59 PM [facility]-TOBACCO NEVER USED [facility] Encounter Notes: All associated encounter notes This section contains the clinical notes associated to the Encounter. Date/Time Encounter Note(s) Provider Source August 18, 2023 10:41 AM ADMINISTRATIVE NOT E: LOCAL TITLE: ADMINISTRATIVE ST[facility] STANDARD TITLE: ADMINISTRATIVE NOTE DATE OF NOTE: AUGUST 18, 2023@10:41 ENTRY DATE: AUGUST 18, 2023@10:41:50 AUTHOR: RUY YANG EXP COSIGNER: URGENCY: STATUS: COMPLETED SUBJECT: NO CONTACT LETTER August 18, 2023 Jordyn Pineda [address], [place] [address] Dear Jordyn Pineda, You have been referred for a consultation to the GENERAL PULMONARY OUTPT [facility] at the [facility]. We would like to schedule a consult appointment with you. If we do not hear from you by September 01, 2023, we will assume that you are not interested in having the consultation and the referral will be discontinued. Please call our office at [phone] between 8 am and 4 pm Thursday through Thursday. If you received this letter after you have spoken to us, please disregard this letter. Sincerely yours, /nataliia/ RUY YANG Advanced [employer] Architect Signed: 08/18/2023 10:41 RUY YANG [facility]
--- OUTSIDE RECORDS SUMMARY | 2024-03-31 00:57 | XMS_ITS | Encounter Summary ---
Author Name [facility] [place] [facility] [place] Address [address] [place] [address] Care Team Providers Care Huller Operator Name Role Phone KODAK MORTON Primary [...] CHOIC E PREFE RR Apr 13, 2020 [id number] [phone] BOOGIE BAILEY ANDON PATIENT ANTHEM [employer] PREFERRED PROVIDER ORGANIZAT ION (PPO) BLUE CHOIC E PREFE RR Apr 13, 2020 [id number] [phone] BOOGIE BAILEY ANDON PATIENT ANTHEM [place] PREFERRED PROVIDER ORGANIZAT ION (PPO) BLUE CHOIC E PREFE RR Apr 13, 2020 [id number] [phone] BOOGIE BAILEY ANDCARLA PATIENT [place] PREFERRED PROVIDER ORGANIZAT ION (PPO) BLUE CHOIC E PREFE RR Apr 13, 2020 [id number] [phone] BOOGIE BAILEY PATIENT PRIME THERAPEUTI CS RX PRESCRIPT ION BCBSI L [place] Apr 13, 2020 BCBSIL [id number] [phone] [facility] [address] [place] May 10, 2019 SELECT [id number] BOOGIE BAILEY PATIENT Selected Encounter This section includes the information [place] at [place] for the Encounter. Date/Time Encounter Type Encounter Description Reason Provider Source Nov 12, 2023 11:49 AM Outpatient Encounter PRIMARY CARE/MEDICINE NOELLE OWENS Valentin Encounter Template Text not used by [place] Plan of Treatment: Future Appointments (+ 6 [...] Date/Time Appointment Type Appointme nt Facility Name Nov 18, 2023 10:00 AM AMBULATORY - MEDICINE [facility] Nov 25, 2023 10:00 AM AMBULATORY - MEDICINE [facility] Jan 09, 2024 11:29 AM [facility]ULATORY - MEDICINE [facility] Jan 09, 2024 03:00 PM AMBULATORY - NONE [facility] Jan 14, 2024 09:00 AM AMBULATORY - MEDICINE [facility] Jan 14, 2024 10:00 AM AMBULATORY - MEDICINE [facility] Jan 26, 2024 01:00 PM AMBULATORY - MEDICINE [facility] Jan 28, 2024 01:45 PM [facility] Feb 02, 2024 02:00 PM AMBULATORY - PSYCHIATRY [facility] Feb 08, 2024 09:00 AM AMBULATORY - NEUROLOGY [facility] Feb 12, 2024 02:30 PM AMBULATORY - NONE [facility] Feb 17, 2024 01:00 PM AMBULATORY - MEDICINE [facility] Feb 25, 2024 09:30 AM AMBULATORY - MEDICINE [facility] Mar 05, 2024 08:43 AM AMBULATORY - MEDICINE [facility] Mar 16, 2024 10:15 AM AMBULATORY - SURGERY . Kelsie [facility] Mar 21, 2024 12:14 PM AMBULATORY - MEDICINE [facility] Apr 01, 2024 10:00 AM AMBULATORY - PSYCHIATRY [facility] Apr 28, 2024 03:00 PM AMBULATORY - MEDICINE [facility] May 05, 2024 11:30 AM AMBULATORY - MEDICINE [facility] Lab Results: +/- 30 days of the encounter This section includes the Chemistry and Hematology Lab Results on record with [place] for the patient. Radiology Reports and Pathology Reports are provided separately, in subsequent sections. Lab Results This section contains the Chemistry/Hematology Results that were resulted 30 days before or 30 daysafter the date of the Encounter. Date/Time Source Result Type Result - Unit Interpretation Reference Range Comment Nov 25, 2023 11:00 AM [facility] LIPID PANEL (STL) Specimen Type: PLASMA Comment: No hemolysis noted. Ordering Provider: FRANSISCO MORTON Report Released Date/Time: Nov 25, 2023 10:43 AM Reporting Lab: [facility] [address] [place] [phone] Performing Lab: [facility] [address] [place] [phone] CHOLESTEROL 150 mg/dL 0-200 TRIGLYCERIDE 184 mg/dL H 0-150 CALCULATED LDL 90 mg/dL HDL(New) 23 mg/dL L >40 Nov 25, 2023 11:00 AM [facility] COMPREHENSIVE METABOLIC PANEL Specimen Type: PLASMA Comment: No hemolysis noted. Ordering Provider: FRANSISCO MORTON Report Released Date/Time: Nov 25, 2023 10:43 AM Reporting Lab: [facility] [address] [place] [phone] Performing Lab: [facility] [address] [place] [phone] CREATININE 0.95 mg/dL 0.7-1.3 UREA NITROGEN 10.5 mg/dL 9.0-25.0 GLUCOSE 89 mg/dL 72-99 SODIUM 137 meq/L 136-145 POTASSIUM 4.3 meq/L 3.5-5 CHLORIDE 106 meq/L 98-107 CARBON DIOXIDE 23 meq/L 22-31 CALCIUM 10.0 mg/dL 8.4-10.4 PROTEIN 9.2 g/dL H 6-8.6 ALBUMIN 4.5 g/dL 3.4-5 TOTAL BILIRUBIN 0.8 mg/dL 0.2-1.2 ALKALINE PHOSPHATASE 89 U/L 40-150 AST/SGOT 49 U/L H 5-34 ALT/SGPT 85 U/L H 8-40 EGFR (CKD-EPI 2020) 105.1 >60 Nov 25, 2023 11:00 AM [facility] HGA1C Specimen Type: BLOOD No comment entered. Ordering Provider: FRANSISCO MORTON Report Released Date/Time: Nov 25, 2023 10:43 AM Reporting Lab: [facility] [address] [place] [phone] Performing Lab: [address] [phone] HGA1C 5.7 4.0-6.0 Nov 25, 2023 11:00 AM [facility] CBC Specimen Type: BLOOD No comment entered. Ordering Provider: FRANSISCO MORTON Report Released Date/Time: Nov 25, 2023 10:43 AM Reporting Lab: [facility] [address] [place] [phone] Performing Lab: [address] [phone] WBC 4.6 10*3/uL 3.6-11.2 RBC 5.54 10*6/uL 4.10-5.70 HGB 15.2 g/dL 13.1-16.8 HCT 44.6 38.2-48.4 MCV 80.5 fL 80.0-100.0 MCH 27.4 pg 27.0-34.0 MCHC 34.1 g/dL 33.0-36.0 PLT 229 10*3/uL 150-400 MPV 10.6 fL 7.5-11.2 RDW 13.3 11.8-15.1 LYMPHOCYTES, AUTO % 29 MONOCYTES, AUTO % 14 NEUTROPHILS, AUTO % 52 EOSINOPHILS, AUTO % 5 BASOPHILS, AUTO % 0 LYMPHOCYTES, ABSOLUTE 1.33 10*3/uL 0.77-4.50 MONOCYTES, ABSOLUTE 0.63 10*3/uL 0.19-0.80 NEUTROPHILS, ABSOLUTE 2.37 10*3/uL 2.10-8.00 EOSINOPHILS, ABSOLUTE 0.22 10*3/uL 0.00-0.60 BASOPHILS, ABSOLUTE 0.02 10*3/uL 0.00-0.20 Nov 25, 2023 11:00 AM [facility] VITAMIN D, 25-HYDROXY Specimen Type: SERUM No comment entered. Ordering Provider: FRANSISCO MORTON Report Released Date/Time: Nov 25, 2023 10:43 AM Reporting Lab: [facility] [address] [facility] [phone] Performing Lab: [facility] [address] [facility] [phone] VITAMIN D, 25-HYDROXY 37.8 ng/mL 30-96 Social History: Smoking Status (Most current) and [...] took place. Date/Time Current Smoking Status Comment Nicolas allen Feb 26, 2021 03:59 PM VA-TOBACCO NEVER USED [facility] Encounter Notes: All associated encounter notes This section contains the clinical notes associated to the Encounter. Date/Time Encounter Note(s) Provider Source Nov 23, 2023 02:57 PM ADDENDUM: LOCAL TITLE: Addendum STANDARD TITLE: ADDENDUM DATE OF NOTE: NOV 23, 2023@14:57:09 ENTRY DATE: NOV 23, 2023@14:57:10 AUTHOR: JONATAN ROBERTSON EXP COSIGNER: URGENCY: STATUS: COMPLETED Consult for marital counseling placed. Alerting RNCM to please inform Vet. /nataliia/ Jonatan Robertson PsyD Clinical Psychologist Signed: 11/23/2023 14:58 Receipt Acknowledged By: 11/23/2023 15:39 /es/ NOELLE OWENS BSN RN REGISTERED NURSE ====== --- Original Document --- 11/12/23 PRIMARY CARE SECURE MESSAGING: ------Original Message ------- Sent: 11/12/2023 11:06 AM ET From: JORDYN BAILEY To: [facility], Caron_SELENE M_Primary Care, [facility] Subject: General:Marriage Couseling Request Good Morning, I know in the past i have asked for a Marriage counseling but life happened. I would like to get another referral, and i would like for the counselor to contact my instead of myself. Here is her info: Name: Michelle Wisdom E-mail: [email or web address] Thank you. ------Original Message ------- Sent: 11/12/2023 12:49 PM ET From: NOELLE OWENS To: JORDYN BAILEY Subject: General:Marriage Couseling Request Good Morning, I will forward your request to Dr. Selene JIMENEZ, log truck driver /nataliia/ NOELLE JIMENEZ RN REGISTERED NURSE Signed: 11/12/2023 11:49 Receipt Acknowledged By: * AWAITING SIGNATURE * KODAK MORTON 11/23/2023 08:22 /nataliia/ Jonatan Robertson PsyD Clinical Psychologist 11/23/2023 ADDENDUM STATUS: COMPLETED Alerting [facility] tx coordinator to the above request. /nataliia/ Jonatan Robertson PsyD Clinical Psychologist Signed: 11/23/2023 08:23 Receipt Acknowledged By: 11/23/2023 14:49 /nataliia/ JESSICA RICHARDS RN Registered Nurse, [facility] 11/23/2023 ADDENDUM STATUS: COMPLETED last seen 12/19/2021 by [facility] provider. If would like to re- establish follow up with Psychiatry he may call [phone] (option 2). Request Dr. Robertson submit consult for marriage counseling, this provider previously sumbitted community care consult for marriage counseling on 08/17/23, failed scheduling efforts. Thank you. /luis RICHARDS RN Registered Nurse, [facility] Signed: 11/23/2023 14:49 Receipt Acknowledged By: 11/23/2023 14:56 /luis Robertson PsyD Clinical Psychologist JONATAN ROBERTSON [facility] Nov 23, 2023 02:45 PM ADDENDUM: LOCAL TITLE: Addendum STANDARD TITLE: ADDENDUM DATE OF NOTE: NOV 23, 2023@14:45:03 ENTRY DATE: NOV 23, 2023@14:45:04 AUTHOR: JESSICA RICHARDS COSIGNER: URGENCY: STATUS: COMPLETED last seen 12/19/2021 by [facility] provider. If would like to re- establish follow up with Psychiatry he may call [phone] (option 2). Request Dr. Robertson submit consult for marriage counseling, this provider previously sumbitted community care consult for marriage counseling on 08/17/23, failed scheduling efforts. Thank you. /luis RICHARDS RN Registered Nurse, [facility] Signed: 11/23/2023 14:49 Receipt Acknowledged By: 11/23/2023 14:56 /luis Robertson PsyD Clinical Psychologist ====== --- Original Document --- 11/12/23 PRIMARY CARE SECURE MESSAGING: ------Original Message ------- Sent: 11/12/2023 11:06 AM ET From: JORDYN BAILEY To: [facility], Caron_SELENE, M_Primary Care, [place] Subject: General:Marriage Couseling Request Good Morning, I know in the past i have asked for a Marriage counseling but life happened. I would like to get another referral, and i would like for the counselor to contact my instead of myself. Here is her info: Name: Michelle Wisdom E-mail: [email or web address] Thank you. ------Original Message ------- Sent: 11/12/2023 12:49 PM ET From: NOELLE OWENS To: JORDYN BAILEY Subject: General:Marriage Couseling Request Good Morning, I will forward your request to Dr. Selene JIMENEZ, log truck driver /nataliia/ NOELLE JIMENEZ RN REGISTERED NURSE Signed: 11/12/2023 11:49 Receipt Acknowledged By: * AWAITING SIGNATURE * KODAK MORTON 11/23/2023 08:22 /nataliia/ Jonatan Robertson PsyD Clinical Psychologist 11/23/2023 ADDENDUM STATUS: COMPLETED Alerting [facility] tx coordinator to the above request. /luis Robertson PsyD Clinical Psychologist Signed: 11/23/2023 08:23 Receipt Acknowledged By: 11/23/2023 14:49 /luis RICHARDS RN Registered NurseGERARD CHRISTINE [facility] Nov 23, 2023 08:22 AM ADDENDUM: LOCAL TITLE: Addendum STANDARD TITLE: ADDENDUM DATE OF NOTE: NOV 23, 2023@08:22:47 ENTRY DATE: NOV 23, 2023@08:22:48 AUTHOR: JONATAN ROBERTSON EXP COSIGNER: URGENCY: STATUS: COMPLETED Alerting t's tx coordinator to the above request. /luis Robertson PsyD Clinical Psychologist Signed: 11/23/2023 08:23 Receipt Acknowledged By: 11/23/2023 14:49 /luis RICHARDS RN Registered NurseGERARD ====== --- Original Document --- 11/12/23 PRIMARY CARE SECURE MESSAGING: ------Original Message ------- Sent: 11/12/2023 11:06 AM ET From: JORDYN BAILEY To: [facility], Caron_SELENE M_Primary Care, [facility] Subject: General:Marriage Couseling Request Good Morning, I know in the past i have asked for a Marriage counseling but life happened. I would like to get another referral, and i would like for the counselor to contact my instead of myself. Here is her info: Name: Michelle Wisdom E-mail: [email or web address] Thank you. ------Original Message ------- Sent: 11/12/2023 12:49 PM ET From: NOELLE OWENS To: JORDYN BAILEY Subject: General:Marriage Couseling Request Good Morning, I will forward your request to Dr. Selene MAGALLANESN, log truck driver /es/ NOELLE JIMENEZ RN REGISTERED NURSE Signed: 11/12/2023 11:49 Receipt Acknowledged By: * AWAITING SIGNATURE KODAK RIOJAS 11/23/2023 08:22 /es/ Jonatan Robertson PsyD Clinical Psychologist 11/23/2023 ADDENDUM STATUS: COMPLETED last seen 12/19/2021 by [facility] provider. If would like to re- establish follow up with Psychiatry he may call [phone] (option 2). Request Dr. Robertson submit consult for marriage counseling, this provider previously sumbitted [facility] consult for marriage counseling on 08/17/23, failed scheduling efforts. Thank you. /es/ JESSICA RICHARDS RN Registered Nurse, [facility] Signed: 11/23/2023 14:49 Receipt Acknowledged By: * AWAITING SIGNATURE * JONATAN ROBERTSON DEVORAH T [facility] Nov 12, 2023 11:49 AM PRIMARY CARE SECUR E MESSAGING: LOCAL TITLE: PRIMARY CARE SECURE MESSAGING STANDARD TITLE: PRIMARY CARE SECURE MESSAGING DATE OF NOTE: NOV 12, 2023@11:49 ENTRY DATE: NOV 12, 2023@11:49:47 AUTHOR: NOELLE OWENS EXP COSIGNER: URGENCY: STATUS: COMPLETED PRIMARY CARE SECURE MESSAGING Has ADDENDA ------Original Message ------- Sent: 11/12/2023 11:06 AM ET From: JORDYN BAILEY To: [facility], 8_SELENE, M_Primary [place], [place] Subject: General:Marriage Couseling Request Good Morning, I know in the past i have asked for a Marriage counseling but life happened. I would like to get another referral, and i would like for the counselor to contact my instead of myself. Here is her info: Name: Michelle Wisdom E-mail: [email or web address] Thank you. ------Original Message ------- Sent: 11/12/2023 12:49 PM ET From: NOELLE OWENS To: JORDYN BAILEY Subject: General:Marriage Couseling Request Good Morning, I will forward your request to Dr. Selene Owens BSN, log truck driver /nataliia/ NOELLE MAGALLANESN RN REGISTERED NURSE Signed: 11/12/2023 11:49 Receipt Acknowledged By: 11/23/2023 23:52 /nataliia/ Kodak Morton MD Staff Physician 11/23/2023 08:22 /nataliia/ Jonatan Robertson PsyD Clinical Psychologist 11/23/2023 ADDENDUM STATUS: COMPLETED Alerting [facility] coordinator to the above request. /nataliia/ Jonatan Robertson PsyD Clinical Psychologist Signed: 11/23/2023 08:23 Receipt Acknowledged By: 11/23/2023 14:49 /nataliia/ JESSICA RICHARDS RN Registered Nurse, [facility] 11/23/2023 ADDENDUM STATUS: COMPLETED last seen 12/19/2021 by [facility] provider. If would like to re- establish follow up with Psychiatry he may call [phone] (option 2). Request Dr. Robertson submit consult for marriage counseling, this provider previously sumbitted [facility] consult for marriage counseling on 08/17/23, failed scheduling efforts. Thank you. /luis RICHARDS RN Registered Nurse, [facility] Signed: 11/23/2023 14:49 Receipt Acknowledged By: 11/23/2023 14:56 /nataliia/ Jonatan Robertson PsyD Clinical Psychologist 11/23/2023 ADDENDUM STATUS: COMPLETED Consult for marital counseling placed. Alerting RNCM to please inform Vet. /nataliia/ Jonatan Robertson PsyD Clinical Psychologist Signed: 11/23/2023 14:58 Receipt Acknowledged By: 11/23/2023 15:39 /nataliia/ NOELLE OWENS BSN RN REGISTERED NURSE NOELLE OWENS [facility]
--- OUTSIDE RECORDS SUMMARY | 2024-03-31 00:57 | XMS_ITS | Encounter Summary ---
Author Name [facility] [place] [facility] [place] [facility] [place] Address [address] [place] [address] Care Team Providers Care Presser First Name Role Phone KODAK MORTON Primary Care [...] CHOIC E PREFE RR Apr 13, 2020 [id number] [phone] BOOGIE BAILEY ANDON PATIENT ANTHEM [place] PREFERRED PROVIDER ORGANIZAT ION (PPO) BLUE CHOIC E PREFE RR Apr 13, 2020 [id number] [phone] BOOGIE BAILEY ANDON PATIENT ANTHEM [place] PREFERRED PROVIDER ORGANIZAT ION (PPO) BLUE CHOIC E PREFE RR Apr 13, 2020 [id number] [phone] BOOGIE BAILEY ANDCARLA PATIENT [place] PREFERRED PROVIDER ORGANIZAT ION (PPO) BLUE CHOIC E PREFE RR Apr 13, 2020 [id number] BOOGIE BAILEY PATIENT PRIME THERAPEUTI CS RX PRESCRIPT ION BCBSI L [place] Apr 13, 2020 BCBSIL [id number] [phone] BOOGIE BAILEY PATIENT [facility] 2018 [place] RE May 10, 2019 SELECT [id number] 22 BOOGIE BAILEY PATIENT Selected Encounter This section includes the information on record at [place] for the Encounter. Date/Time Encounter Type Encounter Description Reason Pro vider Source Oct 07, 2023 03:59 PM Outpatient Encounter EVENT (HISTORICAL) IHE Encounter Template Text not used by [place] Plan of Treatment: Future Appointments (+ 6 months) and Future Tests (+/- 45 days) The Plan of Treatment section includes future care activities for the patient from all [place] treatmentfacilities. This section includes future appointments and future orders which are active, pending or scheduled. Future Appointments This section includes appointments that were scheduled to occur 6 months from the date of the Encounter, up to a maximum of 20 appointments. The data comes from all [place] treatment facilities. Appointment Date/Time Appointment Type Appointme nt Facility Name Oct 14, 2023 09:15 AM AMBULATORY - MEDICINE [facility] Oct 14, 2023 10:00 AM AMBULATORY - MEDICINE [facility] Nov 18, 2023 10:00 AM AMBULATORY - MEDICINE [facility] Nov 25, 2023 10:00 AM AMBULATORY - MEDICINE [facility] Jan 09, 2024 11:29 AM AMBULATORY - MEDICINE [facility] Jan 09, 2024 03:00 PM AMBULATORY - NONE [facility] Jan 14, 2024 09:00 AM AMBULATORY - MEDICINE [facility] Jan 14, 2024 10:00 AM AMBULATORY - MEDICINE [facility] Jan 26, 2024 01:00 PM AMBULATORY - MEDICINE [facility] Jan 28, 2024 01:45 PM AMBULATORY - REHAB MEDICIN E [facility] Feb 02, 2024 02:00 PM AMBULATORY - PSYCHIATRY [facility] Feb 08, 2024 09:00 AM AMBULATORY - NEUROLOGY [facility] Feb 12, 2024 02:30 PM AMBULATORY - NONE [facility] Feb 17, 2024 01:00 PM AMBULATORY - MEDICINE [facility] Feb 25, 2024 09:30 AM AMBULATORY - MEDICINE [facility] Mar 05, 2024 08:43 AM AMBULATORY - MEDICINE [facility] Mar 16, 2024 10:15 AM AMBULATORY - SURGERY [facility] Mar 21, 2024 12:14 PM AMBULATORY - MEDICINE [facility] Apr 01, 2024 10:00 AM AMBULATORY - PSYCHIATRY [facility] Social History: Smoking Status (Most current) and Tobacco Use (All prior to encounter date) This section includes the most current, and the historical, smoking and tobacco- related health factors from the [place] facility where the Encounter took place. Current Smoking Status This section includes the most current smoking, or tobacco-related health factor, from the [place] facility where the Encounter took place. Date/Time Current Smoking Status Comment Nicolas allen Feb 26, 2021 03:59 PM VA-TOBACCO NEVER USED [facility] Encounter Notes: All associated encounter notes This section contains the clinical notes associated to the Encounter. Date/Time Encounter Note(s) Provider Source Oct 07, 2023 03:59 PM [facility] DIALOG NOTE: LOCAL TITLE: SECURE MESSAGING STANDARD TITLE: [facility] DIALOG NOTE DATE OF NOTE: OCT 07, 2023@15:59 ENTRY DATE: OCT 07, 2023@15:59:26 AUTHOR: TERESA SCHUSTER EXP COSIGNER: URGENCY: STATUS: COMPLETED ------Original Message ------ Sent: 10/07/2023 04:59 PM ET From: TERESA SCHUSTER To: JORDYN BAILEY Subject: Appointment:Appointment Inquiry Attachments: JORDYN BAILEY [address] LETTER MARRIAGE FAM.pdf (62.58 KB) Wilder, I hope you are having a pleasant day. Please see cancellation letter for your review. Thank you for your services! Sincerely, Office of [facility] Care [address] [address] P: [phone] (Option # 2) /nataliia/ TERESA SCHUSTER [employer] CARRIER Signed: 10/07/2023 15:59 TERESA SCHUSTER [facility]
--- OUTSIDE RECORDS SUMMARY | 2024-03-31 00:57 | XMS_ITS | Encounter Summary ---
Author Name [facility] [place] Address [address] [place] [address] Care Team Providers Care Wool Shearer Name Role Phone KODAK MORTON Primary Care [...] CHOIC E PREFE RR Apr 13, 2020 [id number] [phone] BOOGIE PINEDA ANDON PATIENT ANTHEM [employer] [place] PREFERRED PROVIDER ORGANIZAT ION (PPO) BLUE CHOIC E PREFE RR Apr 13, 2020 [id number] [phone] LYNN,BOOGIE ANDON PATIENT ANTHEM [employer] [place] PREFERRED PROVIDER ORGANIZAT ION (PPO) BLUE CHOIC E PREFE RR Apr 13, 2020 [id number] [phone] BOOGIE PINEDA ANDON PATIENT [place] PREFERRED PROVIDER ORGANIZAT ION (PPO) BLUE CHOIC E PREFE RR Apr 13, 2020 [id number] [phone] BOOGIE PINEDA PATIENT PRIME THERAPEUTI CS RX PRESCRIPT ION BCBSI L [place] Apr 13, 2020 BCBSIL [id number] [phone] BOOGIE PINEDA PATIENT [facility] 2018 TRICA RE May 10, 2019 SELECT [id number] 22 BOOGIE PINEDA PATIENT Selected Encounter This section includes the information on record at [place] for the Encounter. Date/Time Encounter Type Encounter Description Reason Provider Source Nov 18, 2023 10:56 AM Outpatient Encounter ADMIN PAT ACTIVTIES (MASNONCT) KODAK MORTON IHValentin Encounter Template Text not used by [place] Plan of Treatment: Future Appointments (+ 6 months) and Future Tests (+/- 45 days) The Plan of Treatment section includes future care activities for the patient from all [place] treatmentfaunc health [facility]ston[facility]. This section includes future appointments and future orders which are active, pending or scheduled. Future Appointments This section includes appointments that were scheduled to occur 6 months from the date of the Encounter, up to a maximum of 20 appointments. The data comes from all [place] treatment facilities. Appointment Date/Time Appointment Type Appointme nt Facility Name Nov 25, 2023 10:00 AM AMBULATORY - MEDICINE [facility] Jan 09, 2024 11:29 AM AMBULATORY - MEDICINE [facility] Jan 09, 2024 03:00 PM AMBULATORY - NONE [facility] Jan 14, 2024 09:00 AM AMBULATORY - MEDICINE [facility] Jan 14, 2024 10:00 AM AMBULATORY - MEDICINE [facility] Jan 26, 2024 01:00 PM AMBULATORY - MEDICINE [facility] Jan 28, 2024 01:45 PM AMBULATORY - REHAB MEDICIN E [facility] Feb 02, 2024 02:00 PM AMBULATORY - PSYCHIATRY [facility] Feb 08, 2024 09:00 AM AMBULATORY - NEUROLOGY [facility] Feb 12, 2024 02:30 PM AMBULATORY - NONE [facility] Feb 17, 2024 01:00 PM AMBULATORY - MEDICINE [facility] Feb 25, 2024 09:30 AM AMBULATORY - MEDICINE [facility] Mar 05, 2024 08:43 AM AMBULATORY - MEDICINE [facility] Mar 16, 2024 10:15 AM AMBULATORY - SURGERY [facility] Mar 21, 2024 12:14 PM AMBULATORY - MEDICINE [facility] Apr 01, 2024 10:00 AM AMBULATORY - PSYCHIATRY [facility] Apr 28, 2024 03:00 PM AMBULATORY - MEDICINE [facility] May 05, 2024 11:30 AM AMBULATORY - MEDICINE [facility] Lab Results: +/- 30 days of the encounter This section includes the Chemistry and Hematology Lab Results on record with [place] for the patient. Radiology Reports and Pathology Reports are provided separately, in subsequent sections. Lab Results This section contains the Chemistry/Hematology Results that were resulted 30 days before or 30 daysafter the date of the Encounter. Date/Time Source Result Type Result - Unit Interpretation Reference Range Comment Nov 25, 2023 11:00 AM [facility] LIPID PANEL (STL) Specimen Type: PLASMA Comment: No hemolysis noted. Ordering Provider: FRANSISCO MORTON Report Released Date/Time: Nov 25, 2023 10:43 AM Reporting Lab: [facility] [address] [place] [phone] Performing Lab: [facility] [address] [place] [phone] CHOLESTEROL 150 mg/dL 0-200 TRIGLYCERIDE 184 mg/dL H 0-150 CALCULATED LDL 90 mg/dL HDL(New) 23 mg/dL L >40 Nov 25, 2023 11:00 AM [facility] HGA1C Specimen Type: BLOOD No comment entered. Ordering Provider: FRANSISCO MORTON Report Released Date/Time: Nov 25, 2023 10:43 AM Reporting Lab: [facility] [address] [place] [phone] Performing Lab: [facility] [address] [place] [phone] HGA1C 5.7 4.0-6.0 Nov 25, 2023 11:00 AM [facility] COMPREHENSIVE METABOLIC PANEL Specimen Type: PLASMA Comment: No hemolysis noted. Ordering Provider: FRANSISCO MORTON Report Released Date/Time: Nov 25, 2023 10:43 AM Reporting Lab: [facility] [address] [place] [phone] Performing Lab: [address] [phone] CREATININE 0.95 mg/dL 0.7-1.3 UREA NITROGEN 10.5 [...] 105.1 >60 Nov 25, 2023 11:00 AM [facility] CBC Specimen Type: BLOOD No comment entered. Ordering Provider: FRANSISCO MORTON Report Released Date/Time: Nov 25, 2023 10:43 AM Reporting Lab: [facility] [address] [place] [phone] Performing Lab: [address] [phone] WBC 4.6 10*3/uL 3.6-11.2 RBC 5.54 10*6/uL [...] 10*3/uL 0.00-0.20 Nov 25, 2023 11:00 AM [facility] VITAMIN D, 25-HYDROXY Specimen Type: SERUM No comment entered. Ordering Provider: FRANSISCO MORTON Report Released Date/Time: Nov 25, 2023 10:43 AM Reporting Lab: [address] [phone] Performing Lab: [address] [phone] VITAMIN D, 25-HYDROXY 37.8 ng/mL 30-96 Social History: Smoking Status (Most current) and Tobacco Use (All prior to encounter date) This section includes the most current, and the historical, smoking and tobacco- related health factors from the [place] facility where the Encounter took place. Current Smoking Status This section includes the most current smoking, or tobacco-related health factor, from the [place] facility where the Encounter took place. Date/Time Current Smoking Status Comment Nicolas allen Feb 26, 2021 03:59 PM VA-TOBACCO NEVER USED [facility] Encounter Notes: All associated encounter notes This section contains the clinical notes associated to the Encounter. Date/Time Encounter Note(s) Provider Source Nov 18, 2023 10:56 AM PHYSICIAN LETTERS: LOCAL TITLE: NO SHOW LETTER ST STANDARD TITLE: PHYSICIAN LETTERS DATE OF NOTE: NOV 18, 2023@10:56 ENTRY DATE: NOV 18, 2023@10:56:30 AUTHOR: MITCHELL MURRIETA COSIGNER: URGENCY: STATUS: COMPLETED [address] [phone] NOV 18, 2023 JORDYN PINEDA [address] [place] [phone] Dear Jordyn Pineda, Thank you for choosing the [facility] as your primary choice for health care. As a partner in your health care, we are attempting to contact you because our records indicate that you did not make it to your scheduled appointment, and we would like to re-schedule. Please call us at [phone], extension [phone] to speak to us regarding making an appointment in the [facility]. Your good health is important to us. Please contact us as soon as possible to reschedule your appointment so we can keep your current referral, or to let us know the appointment is no longer needed. If we do not hear back from you within two weeks, we will assume the appointment is not needed at this time. IMPORTANT: Due to COVID-19 we have greatly expanded our telehealth options, please contact the clinic to inquire about scheduling. Sincerely, MOI GOLDEN Advanced Oxygen Equipment Aide OJRDYN PINEDA MIKITA L [facility]
--- OUTSIDE RECORDS SUMMARY | 2024-03-31 00:57 | XMS_ITS | Encounter Summary ---
Author Name [facility] [place] Address [address] [place] [address] Care Team Providers Care Swift Tender Name Role Phone KODAK MORTON Primary Care [...] CHOIC E PREFE RR Apr 13, 2020 [id number] [phone] BOOGIE PINEDA ANDON PATIENT ANTHE[place] PREFERRED PROVIDER ORGANIZAT ION (PPO) BLUE CHOIC E PREFE RR Apr 13, 2020 [id number] [phone] BOOGIE PINEDA ANDON PATIENT [place] PREFERRED PROVIDER ORGANIZAT ION (PPO) BLUE CHOIC E PREFE RR Apr 13, 2020 [id number] [phone] BOOGIE PINEDA ANDCARLA PATIENT [place] PREFERRED PROVIDER ORGANIZAT ION (PPO) BLUE CHOIC E PREFE RR Apr 13, 2020 [id number] [phone] BOOGIE PINEDA PATIENT PRIME THERAPEUTI CS RX PRESCRIPT ION BCBSI L [place] Apr 13, 2020 BCBSIL [id number] [phone] BOOGIE PINEDA PATIENT [facility] 2018 TRICA RE May 10, 2019 SELECT [id number] 22 BOOGIE PINEDA PATIENT Selected Encounter This section includes the information on record at [place] for the Encounter. Date/Time Encounter Type Encounter Description Reason Pro vider Source Sep 18, 2023 10:59 AM Outpatient Encounter EVENT (HISTORICAL) IHE Encounter Template Text not used by [place] Plan of Treatment: Future Appointments (+ 6 months) and Future Tests (+/- 45 days) The Plan of Treatment section includes future care activities for the patient from all [place] treatmentfacilities. This section includes future appointments and [...] 14, 2023 09:15 AM AMBULATORY - MEDICINE [facility] Oct 14, 2023 10:00 AM AMBULATORY - MEDICINE [facility] Nov 18, 2023 10:00 AM AMBULATORY - MEDICINE [facility] Nov 25, 2023 10:00 AM AMBULATORY - MEDICINE [facility] Jan 09, 2024 11:29 AM AMBULATORY - MEDICINE [facility] Jan 09, 2024 03:00 PM AMBULATORY - NONE [facility] Jan 14, 2024 09:00 AM AMBULATORY - MEDICINE [facility] Jan 14, 2024 10:00 AM AMBULATORY - MEDICINE [facility] Jan 26, 2024 01:00 PM AMBULATORY - MEDICINE [facility] Jan 28, 2024 01:45 PM AMBULATORY - REHAB MEDICIN E [facility] Feb 02, 2024 02:00 PM AMBULATORY - PSYCHIATRY [facility] Feb 08, 2024 09:00 AM AMBULATORY - NEUROLOGY [facility] Feb 12, 2024 02:30 PM AMBULATORY - NONE [facility] Feb 17, 2024 01:00 PM AMBULATORY - MEDICINE [facility] Feb 25, 2024 09:30 AM AMBULATORY - MEDICINE [facility] Mar 05, 2024 08:43 AM AMBULATORY - MEDICINE [facility] Mar 16, 2024 10:15 AM AMBULATORY - SURGERY [facility] Kelsie [facility] Social History: Smoking Status (Most current) and Tobacco Use (All prior to encounter date) This section includes the most current, and the historical, smoking and tobacco- related health factors from the [facility] where the Encounter took place. Current Smoking Status This section includes the most current smoking, or tobacco-related health factor, from the [place] facility where the Encounter took place. Date/Time Current Smoking Status Comment Facil ity Feb 26, 2021 03:59 PM VA-TOBACCO NEVER USED [facility] Encounter Notes: All associated encounter notes This section contains the clinical notes associated to the Encounter. Date/Time Encounter Note(s) Provider Source Sep 18, 2023 10:59 AM Ziptr DIALOG NOTE: LOCAL TITLE: [email or web address] STANDARD TITLE: Ziptr DIALOG NOTE DATE OF NOTE: SEP 18, 2023@10:59 ENTRY DATE: SEP 18, 2023@10:59:34 AUTHOR: NEISHA RODRIGUEZ EXP COSIGNER: URGENCY: STATUS: COMPLETED ------Original Message -------- Sent: 09/18/2023 11:59 AM ET From: NEISHA RODRIGUEZ To: JORDYN PINEDA Subject: Appointment:Appointment Inquiry Attachments: Jordyn Pineda [id number] scheduling letter.pdf (42.60 KB) Good morning Mr. Pineda, Attached is a scheduling letter regarding your marriage/family referral. Please contact provider as soon as possible to schedule your initial appointment. If you are needing assistance, feel free to contact [facility] at [phone] opt [phone]. Thank you! Neisha Rodriguez Advanced Screen Tender /nataliia/ NEISHA RODRIGUEZ ADVANCED CLOTHING PATTERN PREPARER Signed: 09/18/2023 10:59 NEISHA RODRIGUEZ [facility]
--- OUTSIDE RECORDS SUMMARY | 2024-03-31 00:57 | XMS_ITS ---
Author Name [place] Address [address] [place] [address] Care Team Providers Care Utility Driver Name Role Phone KODAK MORTON Primary Care [...] CHOIC E PREFE RR Apr 13, 2020 [id number] [phone] BOOGIE PINEDA ANDON PATIENT ANTHEM [employer] [place] PREFERRED PROVIDER ORGANIZAT ION (PPO) BLUE CHOIC E PREFE RR Apr 13, 2020 [id number] [phone] LYNN,BOOGIE ANDON PATIENT ANTHEM [place] PREFERRED PROVIDER ORGANIZAT ION (PPO) BLUE CHOIC E PREFE RR Apr 13, 2020 [id number] [phone] BOOGIE PINEDA ANDON PATIENT [place] PREFERRED PROVIDER ORGANIZAT ION (PPO) BLUE CHOIC E PREFE RR Apr 13, 2020 [id number] [phone] BOOGIE PINEDA PATIENT PRIME THERAPEUTI CS RX PRESCRIPT ION BCBSI L [place] Apr 13, 2020 BCBSIL [id number] [phone] BOOGIE PINEDA PATIENT [facility] 2018 TRICA RE May 10, 2019 SELECT [id number] 22 BOOGIE PINEDA PATIENT Selected Encounter This section includes the information on record at [place] for the Encounter. Date/Time Encounter Type Encounter Description Reason Pro vider Source Oct 19, 2023 03:33 PM Outpatient Encounter ADMIN PAT ACTIVTIES (MASNONCT) IHE Encounter Template Text not used by [place] Plan of Treatment: Future Appointments (+ 6 months) and Future Tests (+/- 45 days) The Plan of Treatment section includes future care activities for the patient from all [place] treatmentfacilities. This section includes future appointments and future orders which are active, pending or scheduled. Future Appointments This section includes appointments that were scheduled to occur 6 months from the date of the Encounter, up to a maximum of 20 appointments. The data comes from all [place] treatment facilities. Appointment Date/Time Appointment Type Appointme nt Facility Name Nov 18, 2023 10:00 AM AMBULATORY - MEDICINE [facility] Nov 25, 2023 10:00 AM AMBULATORY - MEDICINE [facility] Jan 09, 2024 11:29 AM AMBULATORY - MEDICINE [facility] Jan 09, 2024 03:00 PM AMBULATORY - NONE [facility] Jan 14, 2024 09:00 AM AMBULATORY - MEDICINE [facility] Jan 14, 2024 10:00 AM AMBULATORY - MEDICINE [facility] Jan 26, 2024 01:00 PM AMBULATORY - MEDICINE [facility] Jan 28, 2024 01:45 PM AMBULATORY - REHAB MEDICIN E [facility] Feb 02, 2024 02:00 PM AMBULATORY - PSYCHIATRY [facility] Feb 08, 2024 09:00 AM AMBULATORY - NEUROLOGY [facility] Feb 12, 2024 02:30 PM AMBULATORY - NONE [facility] Feb 17, 2024 01:00 PM AMBULATORY - MEDICINE [facility] Feb 25, 2024 09:30 AM AMBULATORY - MEDICINE [facility] Mar 05, 2024 08:43 AM AMBULATORY - MEDICINE [facility] Mar 16, 2024 10:15 AM AMBULAT[facility] Mar 21, 2024 12:14 PM AMBULATORY - MEDICINE [facility] Apr 01, 2024 10:00 AM [facility] Social History: Smoking Status (Most current) and Tobacco Use (All prior to encounter date) This section includes the most current, and the historical, smoking and tobacco- related health factors from the [place] facility where the Encounter took place. Current Smoking Status This section includes the most current smoking, or tobacco-related health factor, from the [place] facility where the Encounter took place. Date/Time Current Smoking Status Comment Nicolas allen Feb 26, 2021 03:59 PM VA-TOBACCO NEVER USED [facility] Encounter Notes: All associated encounter notes This section contains the clinical notes associated to the Encounter. Date/Time Encounter Note(s) Provider Source Oct 19, 2023 03:35 PM PHYSICIAN LETTERS: LOCAL TITLE: NO CONTACT LETTER ST STANDARD TITLE: PHYSICIAN LETTERS DATE OF NOTE: OCT 19, 2023@15:35 ENTRY DATE: OCT 19, 2023@15:35:52 AUTHOR: ARIELLE GILESIGNER: URGENCY: STATUS: COMPLETED [facility] [address] [place] [address] OCT 19, 2023 JORDYN PINEDA [address] [place], [place] [address] Dear Jordyn Pineda, Thank you for choosing the [facility] as your primary choice for health care. As a partner in your health care, we are attempting to contact you because we have been unsuccessful in reaching you by phone to schedule your clinic appointment. Please call us at [phone], extension [phone] [phone] to speak to us regarding making an appointment in the [facility] clinic. Your good health is important to [...] the clinic to inquire about scheduling. Sincerely, ARIELLE GILES ADVANCED DIE DESIGNER JORDYN PINEDA [facility] Oct 19, 2023 03:33 PM ADMINISTRATIVE NOT E: LOCAL TITLE: SCHEDULING NOTE STL STANDARD TITLE: ADMINISTRATIVE NOTE DATE OF NOTE: OCT 19, 2023@15:33 ENTRY DATE: OCT 19, 2023@15:34:01 AUTHOR: ARIELLE GILES EXP COSIGNER: URGENCY: STATUS: COMPLETED Minimum Scheduling attempts to contact the have been made. RTC/Appt/Consult request will be discontinued after 14 days. Clinic: [facility] [place]: Dec First Call to - unsuccessful scheduling: Oct Unable to contact [place], letter sent: Oct Discontinue date (14 calendar days after letter is mailed): Oct Additional comments: tried to schedule vet follow up appt he hung up ADDITIONAL RESULTS FROM SCHEDULING ATTEMPTS: /nataliia/ ARIELLE RIVAS DIE DESIGNER Signed: 10/19/2023 15:35 ARIELLE GILES [facility]
--- OUTSIDE RECORDS SUMMARY | 2024-03-31 00:57 | XMS_ITS | Encounter Summary ---
Author Name [place] Address [address] [place] [address] Care Team Providers Care Subassembly Supervisor Name Role Phone KODAK MORTON Primary [...] CHOIC E PREFE RR Apr 13, 2020 [id number] [phone] BOOGIE BAILEY PATIENT [place] PREFERRED PROVIDER ORGANIZAT ION (PPO) BLUE CHOIC E PREFE RR Apr 13, 2020 [id number] [phone] STEPHANIE BAILEYON PATIENT [place] PREFERRED PROVIDER ORGANIZAT ION (PPO) BLUE CHOIC E PREFE RR Apr 13, 2020 [id number] [phone] STEPHANIE BAILEYON PATIENT [place] PREFERRED PROVIDER ORGANIZAT ION (PPO) BLUE CHOIC E PREFE RR Apr 13, 2020 [id number] [phone] BOOGIE BAILEY PATIENT PRIME THERAPEUTI CS RX PRESCRIPT ION BCBSI L [place] Apr 13, 2020 BCBSIL [id number] [phone] BOOGIE BAILEY PATIENT [facility] 2018 TRICA RE May 10, 2019 SELECT [id number] 22 BOOGIE BAILEY PATIENT Selected Encounter This section includes the information on record at [place] for the Encounter. Date/Time Encounter Type Encounter Description Reason Provider Source August 19, 2023 01:32 PM Outpatient Encounter TELEPHONE PRIMARY CARE NOELLE FLORES Valentin Encounter Template Text not used by [place] Plan of Treatment: Future Appointments (+ 6 months) and Future Tests (+/- 45 days) The Plan of Treatment section includes future care activities for the patient from all [place] treatmentfacilities. This section includes future appointments and future orders which are active, pending or scheduled. Future Appointments This section includes appointments that were scheduled to occur 6 months from the date of the Encounter, up to a maximum of 20 appointments. The data comes from all [place] treatment facilities. Appointment Date/Time Appointment Type Appointme nt Facility Name Oct 14, 2023 09:15 AM AMBULATORY - MEDICINE [facility] Oct 14, 2023 10:00 AM AMBULATORY - MEDICINE [facility] Nov 18, 2023 10:00 AM AMBULATORY - MEDICINE [facility] Nov 25, 2023 10:00 AM AMBULATORY - MEDICINE [facility] Jan 09, 2024 11:29 AM AMBULATORY - MEDICINE [facility] Jan 09, 2024 03:00 PM AMBULATORY - NONE [facility] Jan 14, 2024 09:00 AM AMBULATORY - MEDICINE [facility] Jan 14, 2024 10:00 AM AMBULATORY - MEDICINE [facility] Jan 26, 2024 01:00 PM AMBULATORY - MEDICINE [facility] Jan 28, 2024 01:45 PM AMBULATORY - REHAB MEDICIN E [facility] Feb 02, 2024 02:00 PM AMBULATORY - PSYCHIATRY [facility] Feb 08, 2024 09:00 AM AMBULATORY - NEUROLOGY [facility] Feb 12, 2024 02:30 PM AMBULATORY - NONE [facility] Feb 17, 2024 01:00 PM AMBULATORY - MEDICINE [facility] Social History: Smoking Status (Most current) and Tobacco Use (All prior to encounter date) This section includes the most current, and the historical, smoking and tobacco- related health factors from the [place] facility where the Encounter took place. Current Smoking Status This section includes the most current smoking, or tobacco-related health factor, from the [place] facility where the Encounter took place. Date/Time Current Smoking Status Comment Nicolas osorioy Feb 26, 2021 03:59 PM VA-TOBACCO NEVER USED [facility] Encounter Notes: All associated encounter notes This section contains the clinical notes associated to the Encounter. Date/Time Encounter Note(s) Provider Source August 19, 2023 01:32 PM NURSING NOTE: LOCAL TITLE: V15 PACT TELEPHONE CONTACT NOTE ST STANDARD TITLE: NURSING NOTE DATE OF NOTE: AUGUST 19, 2023@13:32 ENTRY DATE: AUGUST 19, 2023@13:32:53 AUTHOR: NOELLE FLORES EXP COSIGNER: URGENCY: STATUS: COMPLETED Unable to contact: Left voice mail message instructing patient to return call. Outbound call to patient for: Appointment reminder call [facility] CAPABILITY REMINDER: Patient is interested in [facility] appointments. [facility] requirements have been communicated to the [place]. The [facility] confirms understanding of those requirements and indicates the following [facility] needs: has completed previous [facility] appointments and confirms they are STILL [facility] CAPABLE. Future [facility] appointments can be scheduled. 'S RIGHT TO DECLINE STATEMENT understands they have the right to decline the use of Telehealth Technology at any time without adverse affects on their continued access to healthcare. /nataliia/ NOELLE FLORES BSN RN REGISTERED NURSE Signed: 08/19/2023 13:34 NOELLE FLORES [facility]
--- OUTSIDE RECORDS SUMMARY | 2024-03-31 00:57 | XMS_ITS | Encounter Summary ---
Author Name [facility] [place] [facility] [place] Address [address] [place] [address] Care Team Providers Care Cupola Patcher Name Role Phone KODAK MORTON Primary Care [...] CHOIC E PREFE RR Apr 13, 2020 [id number] [phone] BOOGIE BAILEY ANDON PATIENT ANTHEM [place] PREFERRED PROVIDER ORGANIZAT ION (PPO) BLUE CHOIC E PREFE RR Apr 13, 2020 [id number] [phone] LYNN,BOOGIE ANDON PATIENT ANTHEM [employer] [place] PREFERRED PROVIDER ORGANIZAT ION (PPO) BLUE CHOIC E PREFE RR Apr 13, 2020 [id number] [phone] BOOGIE BAILEY ANDON PATIENT [place] PREFERRED PROVIDER ORGANIZAT ION (PPO) BLUE CHOIC E PREFE RR Apr 13, 2020 [id number] [phone] BOOGIE BAILEY PATIENT PRIME THERAPEUTI CS RX PRESCRIPT ION BCBSI L [place] Apr 13, 2020 BCBSIL [id number] [phone] BOOGIE BAILEY PATIENT [facility] 2018 TRICA RE May 10, 2019 SELECT [id number] 22 BOOGIE BAILEY PATIENT Selected Encounter This section includes the information on record at [place] for the Encounter. Date/Time Encounter Type Encounter Description Reason Provider Source August 12, 2023 02:57 PM QNHP OL DIG ASSMT&MGMT 5-10 PULMONARY/CHEST ICD-10-CM R94.5 Abnormal results of liver function studies ELI DIMAS Valentin Encounter Template Text not used by [place] Assessments - Encounter Diagnoses This section includes the primary and secondary diagnoses documented for the Encounter. Date/Time Primary/Secondary Diagnosis Diagnosis Name Provider Source August 14, 2023 08:23 AM PRIMARY Abnormal results of liver function studies ABHISHEK DIMAS [facility] Plan of Treatment: Future Appointments (+ 6 months) and Future Tests (+/- 45 days) The Plan of Treatment section includes future care activities for the patient from all [place] treatmentfacilities. This section includes future appointments and future orders which are active, pending or scheduled. Future Appointments This section includes appointments that were scheduled to occur 6 months from the date of the Encounter, up to a maximum of 20 appointments. The data comes from all [place] treatment facilities. Appointment Date/Time Appointment Type Appointme nt Facility Name August 14, 2023 10:30 AM AMBULATORY - MEDICINE [facility] August 17, 2023 09:15 AM AMBULATORY - MEDICINE [facility] Oct 14, 2023 09:15 AM AMBULATORY - MEDICINE [facility] Oct 14, 2023 10:00 AM AMBULATORY - MEDICINE [facility] Nov 18, 2023 10:00 AM AMBULATORY - MEDICINE [facility] Nov 25, 2023 10:00 AM AMBULATORY - MEDICINE [facility] Jan 09, 2024 11:29 AM AMBULATORY - MEDICINE [facility] Jan 09, 2024 03:00 PM AMBULATORY - NONE [facility] Jan 14, 2024 09:00 AM AMBULATORY - MEDICINE [facility] Jan 14, 2024 10:00 AM AMBULATORY - MEDICINE [facility] Jan 26, 2024 01:00 PM AMBULATORY - MEDICINE [facility] Jan 28, 2024 01:45 PM AMBULATORY - REHAB MEDICIN E [facility] Feb 02, 2024 02:00 PM AMBULATORY - PSYCHIATRY [facility] Feb 08, 2024 09:00 AM AMBULATORY - NEUROLOGY [facility] Feb 12, 2024 02:30 PM AMBULATORY - NONE [facility] Social History: Smoking Status (Most current) and Tobacco Use (All prior to encounter date) This section includes the most current, and the historical, smoking and tobacco- related health factors from the [place] facility where the Encounter took place. Current Smoking Status This section includes the most current smoking, or tobacco-related health factor, from the [place] facility where the Encounter took place. Date/Time Current Smoking Status Comment Nicolas allen Feb 26, 2021 03:59 PM VA-TOBACCO NEVER USED [facility] Encounter Notes: All associated encounter notes This section contains the clinical notes associated to the Encounter. Date/Time Encounter Note(s) Provider Source August 12, 2023 02:57 PM INTERNAL MEDICINE NOTE: LOCAL TITLE: MEDICINE SERVICE E-ASSESSMENT [facility] STANDARD TITLE: INTERNAL MEDICINE NOTE DATE OF NOTE: AUGUST 12, 2023@14:57 ENTRY DATE: AUGUST 12, 2023@14:57:49 AUTHOR: ABHISHEK DIMAS EXP COSIGNER: URGENCY: STATUS: COMPLETED Medical decision:Reschedule appointment Time spent in minutes:5 /nataliia/ ABHISHEK DIMAS RN, BSN REGISTERED NURSE Signed: 08/12/2023 14:58 ABHISHEK DIMAS [facility]
--- OUTSIDE RECORDS SUMMARY | 2024-03-31 00:57 | XMS_ITS | Encounter Summary ---
Author Name [facility] [facility] [place] [facility] [place] Address [address] [place] [address] Care Team Providers Care Bender Helper Name Role Phone KODAK MORTON Primary Care [...] CHOIC E PREFE RR Apr 13, 2020 [id number] [phone] BOOGIE BAILEY ANDON PATIENT [place] PREFERRED PROVIDER ORGANIZAT ION (PPO) BLUE CHOIC E PREFE RR Apr 13, 2020 [id number] [phone] LYNN,BOOGIE ANDON PATIENT AN[place] PREFERRED PROVIDER ORGANIZAT ION (PPO) BLUE CHOIC E PREFE RR Apr 13, 2020 [id number] [phone] BOOGIE BAILEY ANDON PATIENT [place] PREFERRED PROVIDER ORGANIZAT ION (PPO) BLUE CHOIC E PREFE RR Apr 13, 2020 [id number] [phone] BOOGIE BAILEY PATIENT PRIME THERAPEUTI CS RX PRESCRIPT ION BCBSI L [place] Apr 13, 2020 BCBSIL [id number] [phone] BOOGIE BAILEY PATIENT [facility] 2018 TRICA RE May 10, 2019 [facility] [id number] 22 BOOGIE BAILEY PATIENT Selected Encounter This section includes the information on record at [place] for the Encounter. Date/Time Encounter Type Encounter Description Reason Provider Source Nov 27, 2023 02:34 PM HC PRO PHONE CALL 21-30 MIN TELEPHONE/ANCILLA RY ICD-10-CM F43.10 Post-traumatic stress disorder, unspecified ARUNA TRUJILLO IHE Encounter Template Text not used by [place] Assessments - Encounter Diagnoses This section includes the primary and secondary diagnoses documented for the Encounter. Date/Time Primary/Secondary Diagnosis Diagnosis Name Provider Source Nov 27, 2023 02:34 PM PRIMARY Post-traumatic stress disorder, unspecified ARUNA TRUJILLO [facility] Plan of Treatment: Future Appointments (+ 6 months) and Future Tests (+/- 45 days) The Plan of Treatment section includes future care activities for the patient from all [place] treatmentfacilities. This section includes future appointments and future orders which are active, pending or scheduled. Future Appointments This section includes appointments that were scheduled to occur 6 months from the date of the Encounter, up to a maximum of 20 appointments. The data comes from all [place] treatment facilities. Appointment Date/Time Appointment Type Appointme nt Facility Name Jan 09, 2024 11:29 AM AMBULATORY - MEDICINE [facility] Jan 09, 2024 03:00 PM AMBULATORY - NONE [facility] Jan 14, 2024 09:00 AM AMBULATORY - MEDICINE [facility] Jan 14, 2024 10:00 AM AMBULATORY - MEDICINE [facility] Jan 26, 2024 01:00 PM AMBULATORY - MEDICINE [facility] Jan 28, 2024 01:45 PM AMBULATORY - REHAB MEDICIN E [facility] Feb 02, 2024 02:00 PM AMBULATORY - PSYCHIATRY [facility] Feb 08, 2024 09:00 AM AMBULATORY - NEUROLOGY [facility] Feb 12, 2024 02:30 PM AMBULATORY - NONE [facility] Feb 17, 2024 01:00 PM AMBULATORY - MEDICINE [facility] Feb 25, 2024 09:30 AM AMBULATORY - MEDICINE [facility] Mar 05, 2024 08:43 AM AMBULATORY - MEDICINE [facility] Mar 16, 2024 10:15 AM AMBULATORY - SURGERY [facility] Mar 21, 2024 12:14 PM AMBULATORY - MEDICINE [facility] Apr 01, 2024 10:00 AM AMBULATORY - PSYCHIATRY [facility] Apr 28, 2024 03:00 PM AMBULATORY - MEDICINE [facility] May 05, 2024 11:30 AM AMBULATORY - MEDICINE [facility] May 27, 2024 11:00 AM AMBULATORY - MEDICINE [facility] Lab Results: +/- 30 days of the encounter This section includes the Chemistry and Hematology Lab Results on record with [place] for the patient. Radiology Reports and Pathology Reports are provided separately, in subsequent sections. Lab Results This section contains the Chemistry/Hematology Results that were resulted 30 days before or 30 daysafter the date of the Encounter. Date/Time Source Result Type Result - Unit Interpretation Reference Range Comment Nov 25, 2023 11:00 AM [facility] LIPID PANEL (STL) Specimen Type: PLASMA Comment: No hemolysis noted. Ordering Provider: FRANSISCO MORTON Report Released Date/Time: Nov 25, 2023 10:43 AM Reporting Lab: [facility] [address] [place] [address] Performing Lab: [facility] [address] [place] [phone] CHOLESTEROL 150 mg/dL 0-200 TRIGLYCERIDE 184 mg/dL H 0-150 CALCULATED LDL 90 mg/dL HDL(New) 23 mg/dL L >40 Nov 25, 2023 11:00 AM [facility] COMPREHENSIVE METABOLIC PANEL Specimen Type: PLASMA Comment: No hemolysis noted. Ordering Provider: FRANSISCO MORTON Report Released Date/Time: Nov 25, 2023 10:43 AM Reporting Lab: [facility] [address] [place] [address] Performing Lab: [facility] [address] [place] [address] CREATININE 0.95 mg/dL 0.7-1.3 UREA NITROGEN 10.5 [...] 105.1 >60 Nov 25, 2023 11:00 AM [facility] HGA1C Specimen Type: BLOOD No comment entered. Ordering Provider: FRANSISCO MORTON Report Released Date/Time: Nov 25, 2023 10:43 AM Reporting Lab: [facility] [address] [place] [phone] Performing Lab: [address] [address] HGA1C 5.7 4.0-6.0 Nov 25, 2023 11:00 AM [facility] CBC Specimen Type: BLOOD No comment entered. Ordering Provider: FRANSISCO MORTON Report Released Date/Time: Nov 25, 2023 10:43 AM Reporting Lab: [facility] [address] [place] [phone] Performing Lab: [address] [address] WBC 4.6 10*3/uL 3.6-11.2 RBC 5.54 10*6/uL [...] 10*3/uL 0.00-0.20 Nov 25, 2023 11:00 AM [facility] VITAMIN D, 25-HYDROXY Specimen Type: SERUM No comment entered. Ordering Provider: FRANSISCO MORTON Report Released Date/Time: Nov 25, 2023 10:43 AM Reporting Lab: [facility] [address] [address] Performing Lab: [facility] [address] [address] VITAMIN D, 25-HYDROXY 37.8 ng/mL 30-96 Social History: Smoking Status (Most current) and Tobacco Use (All prior to encounter date) This section includes the most current, and the historical, smoking and tobacco- related health factors from the [place] facility where the Encounter took place. Current Smoking Status This section includes the most current smoking, or tobacco-related health factor, from the [place] facility where the Encounter took place. Date/Time Current Smoking Status Comment Nicolas allen Feb 26, 2021 03:59 PM VA-TOBACCO NEVER USED [facility] Encounter Notes: All associated encounter notes This section contains the clinical notes associated to the Encounter. Date/Time Encounter Note(s) Provider Source Nov 27, 2023 02:34 PM CAREGIVER CERTIFIC ATE: LOCAL TITLE: CSP PCAFC APPLICATION INTAKE STANDARD TITLE: CAREGIVER CERTIFICATE DATE OF NOTE: NOV 27, 2023@14:34 ENTRY DATE: NOV 27, 2023@14:34:21 AUTHOR: ARUNA TRUJILLO EXP COSIGNER: URGENCY: STATUS: COMPLETED Program of Comprehensive Assistance for Family Caregivers (PCAFC) Application Intake The Local Caregiver Support Program (CSP) Staff contact [place] and identified caregiver applicant(s) for the PCAFC to discuss the program application process and complete the application intake. A brief overview of the eligibility requirements, application process and appeal rights are reviewed with the and caregiver applicant(s). Date of visit: Nov Identified the [place] using full name and the following other hill identifier(s): Full name: JORDYN BAILEY Date of : Jan The application intake was conducted using the telephone. Application received date: Nov Individuals providing input include: Primary Family Caregiver applicant Application Information Review: Local Caregiver Support Program (CSP) staff have reviewed and verified information contained in the 10-10CG. 10-10CG has been determined to be a valid application. Information: [place] address: [address] [place] [address] [place] phone #: [place] Facility where [place] receives care: [facility] The does not live in a foster home, assisted living, or other institutional location. The [place] does not have a legal guardian\conservator. The [place] has an Advance Directive. Advance Directive includes designation of a Durable Power of Broker Associate for Health Care (DPOA); name of individual listed to act on the 's behalf in the DPOA: José Wisdom Copy is provided or on file in the medical record: No The does not have a [place] fiduciary. 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 Requirements: 1) The individual is either a [place] or a member of the Armed Forces undergoing a medical discharge from the Armed Forces: Yes 2) The individual has a serious injury incurred or aggravated in the line of duty in the active , naval, or air service: Yes (* Serious injury means any service-connected disability that (1) is rated at 70 percent or more by VA, or (2) is combined with any other service-connected disability or disabilities, and a combined rating of 70 percent or more is assigned by VA.) 3) The individual receives care at home or will do so if VA designates a Family Caregiver: Yes 4) The individual receives ongoing care from a primary care team or will do so if VA designates a Family Caregiver: Yes 5) The individual resides in a State, defined as each of the several States, Territories, and [facility] of the [place], the [facility], and the [facility]: Yes Caregiver Requirements: Primary Family Caregiver Applicant Name: José Wisdom VA Form 10-5345 (SALLY) is not on file for Caregiver. The Primary Family Caregiver applicant is 18 years of age or older. The Primary Family Caregiver applicant is a family member or will live climatology professor with the if designated as a Family Caregiver. Relationship to [place]: Spouse Address of applicant's residence: Same as [place] [address] [place] [address] Requirement Status: The [place] and at least one Family Caregiver applicant meet all of the requirements listed above. Local CSP staff will coordinate the following next steps: Coordinate the necessary [place] assessment(s) Coordinate the Electronic Health Record (EHR) for the Family Caregiver applicant(s) as needed Coordinate the Family Caregiver applicant(s) assessment Caregiver Support Program staff provided education and an overview of PCAFC and the PCAFC eligibility criteria, application process and application timeline. This web content writer also provided education about Program of General Caregiver Support Services (PGCSS) including services/programs in PGCSS and that a referral is available to PGCSS at any time before, during and after PCAFC application process is completed. Mailed application process and eligibility document, PGCSS factsheet and CSP resources. 1010CG Review No discrepancies noted between 1010CG and ACACIA/MPI. Secondary Caregiver and Secondary #2 Applicants Application does not include an applicant(s) for Secondary Caregiver/Secondary # 2 Caregiver. Additional Information Caregiver Applicant reports [place] is struggling with the decision-making aspect of things and has severe anxiety issues. At this time, Caregiver Applicant would like this web content writer to speak with prior to proceeding with process. The rest of the application intake will be reviewed at that time (GEC discussion, authorized personnel representative discussion, home safety review, etc.). [facility] sent email to with available dates/times for phone discussion with next week. Caregiver Applicant voiced no issues with scheduling application assessments and voiced understanding of the 90 day adjudication guidelines. For scheduling call: at [phone] Caregiver Applicant voiced no immediate needs and had no questions for this web content writer at this time. Caregiver Applicant was encouraged to call CSP directly if any concerns or questions arise. Provided [facility] contact information for reference. [id number] Information mailed: application process and eligibility document, PGCSS factsheet and CSP resources Duration of Contact: 25 mins [place] diagnosis: refer to CPRS problem list; Posttraumatic stress disorder /nataliia/ ARUNA TRUJILLO Launch Check Out, Caregiver Support Program Signed: 11/27/2023 15:44 Receipt Acknowledged By: 12/01/2023 13:27 /nataliia/ ZAID ROSENBAUM [facility] ARUNA TRUJILLO [facility]
--- OUTSIDE RECORDS SUMMARY | 2024-03-31 00:57 | XMS_ITS | Encounter Summary ---
Author Name [facility] [place] Address [address] [place] [address] Care Team Providers Care Combination Building Inspector Name Role Phone KODAK MORTON Primary Care [...] CHOIC E PREFE RR Apr 13, 2020 [id number] [phone] BOOGIE BAILEY ANDON PATIENT ANTHEM [employer] [place] PREFERRED PROVIDER ORGANIZAT ION (PPO) BLUE CHOIC E PREFE RR Apr 13, 2020 [id number] [phone] LYNN,BOOGIE ANDON PATIENT ANTHEM [employer] [place] PREFERRED PROVIDER ORGANIZAT ION (PPO) BLUE CHOIC E PREFE RR Apr 13, 2020 [id number] [phone] BOOGIE BAILEY ANDON PATIENT [employer] PREFERRED PROVIDER ORGANIZAT ION (PPO) BLUE CHOIC E PREFE RR Apr 13, 2020 [id number] [phone] BOOGIE BAILEY PATIENT PRIME THERAPEUTI CS RX PRESCRIPT ION BCBSI L [place] Apr 13, 2020 BCBSIL [id number] [phone] BOOGIE BAILEY PATIENT [facility] 2018 [address] RE May 10, 2019 [facility] [id number] 22 BOOGIE BAILEY PATIENT Selected Encounter This section includes the information on record at [place] for the Encounter. Date/Time Encounter Type Encounter Description Reason Provider Source Oct 14, 2023 09:15 AM OFFICE O/P EST MOD 30 MIN PULMONARY/CHEST ICD-10-CM R05.3 Chronic cough CLAUDE ALVARADO Valentin Encounter Template Text not used by [place] Assessments - Encounter Diagnoses This section includes the primary and secondary diagnoses documented for the Encounter. Date/Time Primary/Secondary Diagnosis Diagnosis Name Provider Source Oct 14, 2023 01:00 PM PRIMARY Chronic cough [facility] Oct 14, 2023 01:00 PM SECONDARY Abnormal results of liver function studies [facility] Plan of Treatment: Future Appointments (+ 6 months) and Future Tests (+/- 45 days) The Plan of Treatment section includes future care activities for the patient [facility] [place] [facility] This section includes future appointments and future [...] 18, 2023 10:00 AM AMBULATORY - MEDICINE [facility] Nov 25, 2023 10:00 AM AMBULATORY - MEDICINE [facility] Jan 09, 2024 11:29 AM AMBULATORY - MEDICINE [facility] Jan 09, 2024 03:00 PM AMBULATORY - NONE [facility] Jan 14, 2024 09:00 AM AMBULATORY - MEDICINE [facility] Jan 14, 2024 10:00 AM AMBULATORY - MEDICINE [facility] Jan 26, 2024 01:00 PM AMBULATORY - MEDICINE [facility] Jan 28, 2024 01:45 PM AMBULATORY - REHAB MEDICIN E [facility] Feb 02, 2024 02:00 PM AMBULATORY - PSYCHIATRY [facility] Feb 08, 2024 09:00 AM AMBULATORY - NEUROLOGY [facility] Feb 12, 2024 02:30 PM AMBULATORY - NONE [facility] Feb 17, 2024 01:00 PM AMBULATORY - MEDICINE [facility] Feb 25, 2024 09:30 AM AMBULATORY - MEDICINE [facility] Mar 05, 2024 08:43 AM AMBULATORY - MEDICINE [facility] Mar 16, 2024 10:15 AM AMBULATORY - SURGERY [facility] Kelsie [facility] Mar 21, 2024 12:14 PM AMBULATORY - MEDICINE [facility] Apr 01, 2024 10:00 AM AMBULATORY - PSYCHIATRY [facility] Vital Signs: All taken on the encounter date This section contains inpatient and outpatient Vital Signs collected on the date of the Encounter. Date/Time Temperature Pulse Blood Pressure Respiratory Rate SP02 Pain Height Weight Body Mass Index Source Oct 14, 2023 09:09 AM 98.2 86 117/78 16 97 3 221.4 32 [facility] Social History: Smoking Status (Most current) and [...] 26, 2021 03:59 PM VA-TOBACCO NEVER USED [facility] Encounter Notes: All associated encounter notes This section contains the clinical notes associated to the Encounter. Date/Time Encounter Note(s) Provider Source Oct 14, 2023 09:51 AM PULMONARY CONSULT: LOCAL TITLE: PULMONARY OUTPATIENT CONSULT NOTE [facility] STANDARD TITLE: PULMONARY CONSULT DATE OF NOTE: OCT 14, 2023@09:51 ENTRY DATE: OCT 14, 2023@09:51:24 AUTHOR: MARCIA NEGRETE COSIGNER: URGENCY: STATUS: COMPLETED PULMONARY OUTPATIENT CONSULT NOTE [facility]INIC NOTE 38 year old MALE here for Pulmonary Clinic new patient visit on 10/14/23 09:15. CHIEF COMPLAINT/REASON FOR CONSULT REQUEST: - Chronic cough following COVID in April 2023 HISTORY: Pt is a 38yr male with hx of obesity, KHADRA on CPAP who presents for evaluation/maangement of chronic cough, onset in April following a COVID infection, no hopsitalization, tx'd with paxlovid. Reports that he has persisent cough since COVID. Charaterizes as dry cough that waxes and wanes, some days it so frequent he gets associated BAKER. No sputum/hemoptysis. Denies chest tightness/wheezing. Denies nasal congestion/post-nasal drainage. He uses CPAP at night, tolerates well. Reports that he usually sleeps well with minimal coughing at night. Reports hx of GERD 10yrs ago, only rarely has sxs now. No hx o asthma, rhinitis or eczema. Does has shellfish allergy with prior anaphylaxis years ago tx'd in ED. States that he has tried tessalon perles and prn albuterol for cough without relief. Has never been prescribed inhaled corticosteroids. Additonally, pt reports that he has had cough for several weeks following previous URIs. PAST MEDICAL HISTORY: 1) Chronic back pain 2) Sleep apnea 3) Posttraumatic stress disorder 4) Major depressive disorder 5) Steatosis of liver 6) Obesity 7) Exposure to potentially hazardous substance ACTIVE OUTPATIENT MEDICATIONS: Active Outpatient Medications (including Supplies): Active Outpatient Medications Status 1) BENZONATATE 200MG CAP TAKE ONE CAPSULE BY MOUTH THREE ACTIVE TIMES A DAY NEEDED FOR COUGH ALLERGIES: - SHELLFISH FAMILY HISTORY: - No family hx of asthma, chronic resp dz. 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 No tobacco hx. REVIEW OF SYSTEMS: - As noted above, otherwise negative. PHYSICAL EXAMINATION: Vital Signs: Temperature: 98.2 F [36.8 C] (10/14/2023 09:09) Blood Pressure: 117/78 (10/14/2023 09:09) Pulse: 86 (10/14/2023 09:09) Respirations: 16 (10/14/2023 09:09) Pain: 3 (10/14/2023 09:09) Patient Height:70 in [177.8 cm] (05/28/2022 10:51) Patient Weight:221.4 lb [100.43 kg] (10/14/2023 09:09) BMI: 31.8 O2 saturation: 97% (10/14/2023 09:09) GENERAL: Well-appearing, no acute distress. HEENT: Supple, no LAD. TMs wnl. Nares patent. MMM. OP clear. RESP: Nonlabored. Occ brief, dry cough. BS equal, CTA. CARDIAC: RRR, no murmur. EXT: No edema. SKIN: Warm, dry. NEURO: Nl mood/affect. SELECTED RESULTS REVIEWED: - Reviewed prior PCP notes. - Pre-post bronchodilator spirometry performed today, flow-volume loops not reproducible. - CXR 05/2023 no acute cardiopulmonary dz. IMPRESSION/RECOMMENDATIONS: Pt is a 38yr malewith hx of obesity, KHADRA on CPAP who presents with chronic cough following COVID resp infection in April. Has trialed cough suppressants and albuterol prn witout relief. Has past hx of residual cough last several weeks following URIs c/f possible asthma variant/reactive airway disease. #Post-viral cough with possible reactive airway dz: - Will trial ICA/LABA, wixela 250/50 1 puff BID. - Continue albuterol prn. - Will see back in pulm clinic in 8 wks for repeat eval, PFTs at that time. - If not showing improvement with inhaler tx will consider referral to speech for PVFM eval/cough suppressive therapy and possibly trial of PPI for silent GERD, pt does report past hx of symptomatic GERD. #KHADRA,using CPAP, tolerating well. #Immunizations: - Recommend yearly influenza. /nataliia/ MARCIA NEGRETE PHYSICIAN PHOTOGRAPHIC PLATEMAKER Signed: 10/14/2023 13:00 Receipt Acknowledged By: 10/16/2023 09:14 /nataliia/ CLAUDE ALVARADO MD Staff Physician - Pulmonary 10/16/2023 ADDENDUM STATUS: COMPLETED I personally saw the patient and discussed the assessment and plan with the fellow. I agree with assessment and plan outlined above. Briefly, 38 y/o male here with persistent cough after COVID. Pt reports prolonged cough with other viral infection. Likely post viral cough, very common after COVID. Will treat with ICS/LABA. if no effect, will send to speech for cough suppressive therapy. /nataliia/ CLAUDE ALVARADO MD Staff Physician - Pulmonary Signed: 10/16/2023 09:17 10/27/2023 ADDENDUM STATUS: COMPLETED Spoke with patient via phone to follow-up to secure messaging sent 10/25. Pt reports that he has developed a sore throat and some mild hoarseness since starting wixela on 10/13. He has not been rinsing/spitting since starting the inhaler. He reports that at present he has not noticed any changes to his oral mucosa including erythema or white plaques. Discussed that dry powder inhaler might be causing irritation and we could try switch to a LABA/ICA MDI, however, he states that he would like to continue Wixela for now, but will start rinsing and spitting after each use. Additionally, he will continue to monitor for signs of oral thrush and notify if present, otherwise he will message later this week to give update on how he is doing. /nataliia/ MARCIA NEGRETE PHYSICIAN PHOTOGRAPHIC PLATEMAKER Signed: 10/27/2023 10:21 MARCIA NEGRETE [facility]
--- OUTSIDE RECORDS SUMMARY | 2024-03-31 00:57 | XMS_ITS | Encounter Summary ---
Author Name [facility] [place] Address [address] [place] [address] Care Team Providers Care Travel Trailer Components Assembler Name Role Phone KODAK MORTON Primary Care [...] CHOIC E PREFE RR Apr 13, 2020 [id number] [phone] BOOGIE PINEDA PATIENT [place] PREFERRED PROVIDER ORGANIZAT ION (PPO) BLUE CHOIC E PREFE RR Apr 13, 2020 [id number] STEPHANIE PINEDAON PATIENT ANTHE[place] [employer] [place] PREFERRED PROVIDER ORGANIZAT ION (PPO) BLUE CHOIC E PREFE RR Apr 13, 2020 [id number] [phone] BOOGIE PINEDA PATIENT [place] PREFERRED PROVIDER ORGANIZAT ION (PPO) BLUE CHOIC E PREFE RR Apr 13, 2020 [id number] BOOGIE PINEDA PATIENT PRIME THERAPEUTI CS RX PRESCRIPT ION BCBSI L [place] Apr 13, 2020 BCBSIL [id number] BOOGIE PINEDA PATIENT [facility] 2018 [place] May 10, 2019 [facility] [id number] 22 BOOGIE PINEDA PATIENT Selected Encounter This section includes the information on record at [place] for the Encounter. Date/Time Encounter Type Encounter Description Reason Provider Source Nov 12, 2023 12:19 PM Outpatient Encounter PULMONARY/CHEST SCOTT GUAJARDO [facility] Encounter Template Text not used by [place] Plan of Treatment: Future Appointments (+ 6 months) and Future Tests (+/- 45 days) The Plan of Treatment section includes future care activities for the patient from all [place] treatmentfacilities. This section includes future appointments and future orders which are active, pending or scheduled. Future Appointments This section includes appointments that were scheduled to occur 6 months from the date of the Encounter, up to a maximum of 20 appointments. The data comes from all [place] treatment facilities. Appointment Date/Time Appointment Type Appointme nt Facility Name Nov 18, 2023 10:00 AM AMBULATORY - MEDICINE [facility] Nov 25, 2023 10:00 AM AMBULATORY - MEDICINE [facility] Jan 09, 2024 11:29 AM AMBULATORY - MEDICINE [facility] Jan 09, 2024 03:00 PM AMBULATORY - NONE [facility] Jan 14, 2024 09:00 AM AMBULATORY - MEDICINE [facility] Jan 14, 2024 10:00 AM AMBULATORY - MEDICINE [facility] Jan 26, 2024 01:00 PM AMBULATORY - MEDICINE [facility] Jan 28, 2024 01:45 PM AMBULATORY - REHAB MEDICIN E [facility] Feb 02, 2024 02:00 PM AMBULATORY - PSYCHIATRY [facility] Feb 08, 2024 09:00 AM AMBULATORY - NEUROLOGY [facility] Feb 12, 2024 02:30 PM AMBULATORY - NONE [facility] Feb 17, 2024 01:00 PM AMBULATORY - MEDICINE [facility] Feb 25, 2024 09:30 AM AMBULATORY - MEDICINE [facility] Mar 05, 2024 08:43 AM AMBULATORY - MEDICINE [facility] Mar 16, 2024 10:15 AM AMBULATORY - SURGERY . Kelsie [facility] Mar 21, 2024 12:14 PM AMBULATORY - MEDICINE [facility] Apr 01, 2024 10:00 AM AMBULATORY - PSYCHIATRY [facility] Apr 28, 2024 03:00 PM AMBULATORY - MEDICINE [facility] May 05, 2024 11:30 AM AMBULATORY - MEDICINE [facility] Lab Results: +/- 30 days of the encounter This section includes the Chemistry and Hematology Lab Results on record with [place] for the patient. Radiology Reports and Pathology Reports are provided separately, in subsequent sections. Lab Results This section contains the Chemistry/Hematology Results that were resulted 30 days before or 30 daysafter the date of the Encounter. Date/Time Source Result Type Result - Unit Interpretation Reference Range Comment Nov 25, 2023 11:00 AM [facility] LIPID PANEL ([facility]) Specimen Type: PLASMA Comment: No hemolysis noted. Ordering Provider: FRANSISCO MORTON Report Released Date/Time: Nov 25, 2023 10:43 AM Reporting Lab: [facility] [address] [place] [phone] Performing Lab: [facility] [address] [place] [phone] CHOLESTEROL 150 mg/dL 0-200 TRIGLYCERIDE 184 mg/dL H 0-150 CALCULATED LDL 90 mg/dL HDL(New) 23 mg/dL L >40 Nov 25, 2023 11:00 AM [facility] COMPREHENSIVE METABOLIC PANEL Specimen Type: PLASMA Comment: No hemolysis noted. Ordering Provider: FRANSISCO MORTON Report Released Date/Time: Nov 25, 2023 10:43 AM Reporting Lab: [facility] [address] [place] [phone] Performing Lab: [facility] [address] [place] [phone] CREATININE 0.95 mg/dL 0.7-1.3 UREA NITROGEN 10.5 [...] 105.1 >60 Nov 25, 2023 11:00 AM [facility] HGA1C Specimen Type: BLOOD No comment entered. Ordering Provider: FRANSISCO MORTON Report Released Date/Time: Nov 25, 2023 10:43 AM Reporting Lab: [facility] [address] [place] [phone] Performing Lab: [address] [phone] HGA1C 5.7 4.0-6.0 Nov 25, 2023 11:00 AM [facility] CBC Specimen Type: BLOOD No comment entered. Ordering Provider: FRANSISCO MORTON Report Released Date/Time: Nov 25, 2023 10:43 AM Reporting Lab: [facility] [address] [place] [phone] Performing Lab: [address] [phone] WBC 4.6 10*3/uL 3.6-11.2 RBC 5.54 10*6/uL [...] 10*3/uL 0.00-0.20 Nov 25, 2023 11:00 AM [facility] VITAMIN D, 25-HYDROXY Specimen Type: SERUM No comment entered. Ordering Provider: FRANSISCO MORTON Report Released Date/Time: Nov 25, 2023 10:43 AM Reporting Lab: [place] [id number] [facility] [phone] Performing Lab: [place] [id number] [facility] [phone] VITAMIN D, 25-HYDROXY 37.8 ng/mL 30-96 Social History: Smoking Status (Most current) and Tobacco Use (All prior to encounter date) This section includes the most current, and the historical, smoking and tobacco- related health factors from the [place] facility where the Encounter took place. Current Smoking Status This section includes the most current smoking, or tobacco-related health factor, from the [place] facility where the Encounter took place. Date/Time Current Smoking Status Comment Nicolas allen Feb 26, 2021 03:59 PM VA-TOBACCO NEVER USED [facility] Encounter Notes: All associated encounter notes This section contains the clinical notes associated to the Encounter. Date/Time Encounter Note(s) Provider Source Nov 12, 2023 12:19 PM [facility] DIALOG NOTE: LOCAL TITLE: Current [employer] Company[employer] STANDARD TITLE: [employer]addle[employer] DIALOG NOTE DATE OF NOTE: NOV 12, 2023@12:19 ENTRY DATE: NOV 12, 2023@12:19:02 AUTHOR: SCOTT GUAJARDO COSIGNER: URGENCY: STATUS: COMPLETED ------Original Message ------- Sent: 11/12/2023 11:13 AM ET From: JORDYN PINEDA To: [facility], PULMONARY , SPECIALTY MEDICINE @ Subject: Medication:INhaler Concerns Hello, My was reading the side effects and dangers of these inhalers i am on, and one says not to take it if you have liver problems. I currently have slightly elevated levels in my liver so should i be on this? Also, does this inhaler cause anxiety and behavioral changes? Because i got both and it's starting to worry me. Another phone call from the doctor would be greatly appreciated. Thank you. ------Original Message ------- Sent: 11/12/2023 12:20 PM ET From: SCOTT GUAJARDO To: JORDYN PINEDA Subject: Medication:INhaler Concerns Mr. Pineda, How often are you using your albuterol? Is your anxiety and behavior changes since you started on the Wixela? Tete ------Original Message ------- Sent: 11/12/2023 12:41 PM ET From: JORDYN PINEDA To: ST, PULMONARY , SPECIALTY MEDICINE @ Subject: Medication:INhaler Concerns I use the albuterol every now and then, i am talking about the Wixela which is what i use twice a day as directed. And yes i have noticed it since i have been using the inhalers. ------Original Message ------- Sent: 11/12/2023 01:18 PM ET From: SCOTT GUAJARDO To: JORDYN PINEDA Subject: Medication:INhaler Concerns Thank you for the additional information. I will forward the information to your provider. Tete /nataliia/ SCOTT GUAJARDO MSN,RN REGISTERED NURSE Signed: 11/12/2023 12:19 SCOTT GUAJARDO [facility]
--- OUTSIDE RECORDS SUMMARY | 2024-03-31 00:57 | XMS_ITS | Encounter Summary ---
Author Name [facility] [place] [facility] [place] Address [address] [place] [address] Care Team Providers Care Manager Trainee Name Role Phone KODAK MORTON Primary Care [...] CHOIC E PREFE RR Apr 13, 2020 [id number] [phone] BOOGIE BAILEY ANDON PATIENT [employer] [employer] [place] PREFERRED PROVIDER ORGANIZAT ION (PPO) BLUE CHOIC E PREFE RR Apr 13, 2020 [id number] [phone] LYNN,BOOGIE ANDON PATIENT [employer] [employer] [place] PREFERRED PROVIDER ORGANIZAT ION (PPO) BLUE CHOIC E PREFE RR Apr 13, 2020 [id number] [phone] BOOGIE BAILEY ANDON PATIENT [employer] [place] PREFERRED PROVIDER ORGANIZAT ION (PPO) BLUE CHOIC E PREFE RR Apr 13, 2020 [id number] [phone] BOOGIE BAILEY PATIENT PRIME THERAPEUTI CS RX PRESCRIPT ION BCBSI L [place] Apr 13, 2020 BCBSIL [id number] [phone] BOOGIE BAILEY PATIENT [facility] [address] May 10, 2019 SELECT [id number] 22 BOOGIE BAILEY PATIENT Selected Encounter This section includes the information on record at [place] for the Encounter. Date/Time Encounter Type Encounter Description Reason Provider Source Nov 13, 2023 12:39 PM QNHP OL DIG ASSMT&MGMT 5-10 PULMONARY/CHEST ICD-10-CM R05.3 Chronic cough GERALDINE GUAJARDO [facility] Encounter Template Text not used by [place] Assessments - Encounter Diagnoses This section includes the primary and secondary diagnoses documented for the Encounter. Date/Time Primary/Secondary Diagnosis Diagnosis Name Provider Source Nov 13, 2023 12:46 PM PRIMARY Chronic cough LC GUAJARDO [facility] Plan of Treatment: Future Appointments (+ 6 months) and Future Tests (+/- 45 days) The Plan of Treatment section includes future care activities for the patient from all [place] treatmentfacilities. This section includes future appointments and future orders which are active, pending or scheduled. Future Appointments This section includes appointments that were scheduled to occur 6 months from the date of the Encounter, up to a maximum of 20 appointments. The data comes from all [place] treatment facilities. Appointment Date/Time Appointment Type Appointme nt Facility Name Nov 18, 2023 10:00 AM AMBULATORY - MEDICINE [facility] Nov 25, 2023 10:00 AM AMBULATORY - MEDICINE [facility] Jan 09, 2024 11:29 AM AMBULATORY - MEDICINE [facility] Jan 09, 2024 03:00 PM AMBULATORY - NONE [facility] Jan 14, 2024 09:00 AM AMBULATORY - MEDICINE [facility] Jan 14, 2024 10:00 AM AMBULATORY - MEDICINE [facility] Jan 26, 2024 01:00 PM AMBULATORY - MEDICINE [facility] Jan 28, 2024 01:45 PM AMBULATORY - REHAB MEDICIN E [facility] Feb 02, 2024 02:00 PM AMBULATORY - PSYCHIATRY [facility] Feb 08, 2024 09:00 AM AMBULATORY - NEUROLOGY [facility] Feb 12, 2024 02:30 PM AMBULATORY - NONE [facility] Feb 17, 2024 01:00 PM AMBULATORY - MEDICINE [facility] Feb 25, 2024 09:30 AM AMBULATORY - MEDICINE [facility] Mar 05, 2024 08:43 AM AMBULATORY - MEDICINE [facility] Mar 16, 2024 10:15 AM AMBULATORY - SURGERY [facility] Mar 21, 2024 12:14 PM AMBULATORY - MEDICINE [facility] Apr 01, 2024 10:00 AM AMBULATORY - PSYCHIATRY [facility] Apr 28, 2024 03:00 PM AMBULATORY - MEDICINE [facility] May 05, 2024 11:30 AM AMBULATORY - MEDICINE [facility] Lab Results: +/- 30 days of the encounter This section includes the Chemistry and Hematology Lab Results on record with [place] for the patient. Radiology Reports and Pathology Reports are provided separately, in subsequent sections. Lab Results This section contains the Chemistry/Hematology Results that were resulted 30 days before or 30 daysafter the date of the Encounter. Date/Time Source Result Type Result - Unit Interpretation Reference Range Comment Nov 25, 2023 11:00 AM [facility] LIPID PANEL (STL) Specimen Type: PLASMA Comment: No hemolysis noted. Ordering Provider: FRANSISCO MORTON Report Released Date/Time: Nov 25, 2023 10:43 AM Reporting Lab: [facility] [address] [facility] [address] Performing Lab: [facility] [address] [facility] [address] [address] CHOLESTEROL 150 mg/dL 0-200 TRIGLYCERIDE 184 mg/dL H 0-150 CALCULATED LDL 90 mg/dL HDL(New) 23 mg/dL L >40 Nov 25, 2023 11:00 AM [facility] COMPREHENSIVE METABOLIC PANEL Specimen Type: PLASMA Comment: No hemolysis noted. Ordering Provider: FRANSISCO MORTON Report Released Date/Time: Nov 25, 2023 10:43 AM Reporting Lab: [facility] [address] [facility] [address] Performing Lab: [address] [address] CREATININE 0.95 mg/dL 0.7-1.3 UREA NITROGEN 10.5 [...] 105.1 >60 Nov 25, 2023 11:00 AM [facility] HGA1C Specimen Type: BLOOD No comment entered. Ordering Provider: FRANSISCO MORTON Report Released Date/Time: Nov 25, 2023 10:43 AM Reporting Lab: [address] [address] Performing Lab: [address] [address] HGA1C 5.7 4.0-6.0 Nov 25, 2023 11:00 AM [facility] CBC Specimen Type: BLOOD No comment entered. Ordering Provider: FRANSISCO MORTON Report Released Date/Time: Nov 25, 2023 10:43 AM Reporting Lab: [address] [address] Performing Lab: [address] [address] WBC 4.6 10*3/uL 3.6-11.2 RBC 5.54 10*6/uL [...] 10*3/uL 0.00-0.20 Nov 25, 2023 11:00 AM [facility] VITAMIN D, 25-HYDROXY Specimen Type: SERUM No comment entered. Ordering Provider: FRANSISCO MORTON Report Released Date/Time: Nov 25, 2023 10:43 AM Reporting Lab: [facility] [address] [facility] [address] Performing Lab: [facility] [address] [facility] [address] VITAMIN D, 25-HYDROXY 37.8 ng/mL 30-96 Social History: Smoking Status (Most current) and Tobacco Use (All prior to encounter date) This section includes the most current, and the historical, smoking and tobacco- related health factors from the [place] facility where the Encounter took place. Current Smoking Status This section includes the most current smoking, or tobacco-related health factor, from the [place] facility where the Encounter took place. Date/Time Current Smoking Status Comment Nicolas allen Feb 26, 2021 03:59 PM VA-TOBACCO NEVER USED [facility] Encounter Notes: All associated encounter notes This section contains the clinical notes associated to the Encounter. Date/Time Encounter Note(s) Provider Source Nov 13, 2023 12:43 PM NURSING NOTE: LOCAL TITLE: [place] PROGRESS NOTE STL STANDARD TITLE: NURSING NOTE DATE OF NOTE: NOV 13, 2023@12:43 ENTRY DATE: NOV 13, 2023@12:43:41 AUTHOR: SCOTT GUAJARDO EXP COSIGNER: URGENCY: STATUS: COMPLETED Sent a secure message to :stating that his provider Kathi FAIRCHILD has attempted to call him today. Your mailbox is full. She wanted me to tell you that you can stop your inhalers since they seem to be making you feel worse. She wants you to call me next week--[phone] ext. [phone] and let me know how you are feeling without the inhalers. How is your cough ? Also you have a Pulmonary Function test on 12/18/23. You need to schedule a follow up appointment with Pulmonary--Kathi Rascon . Please call [phone] option 3 to schedule. /es/ SCOTT GUAJARDO MSN,RN REGISTERED NURSE Signed: 11/13/2023 12:46 SCOTT GUAJARDO [facility]
--- OUTSIDE RECORDS SUMMARY | 2024-03-31 00:57 | XMS_ITS ---
Author Name [facility] [place] Address [address] [place] [address] Care Team Providers Care Crutcher Helper Name Role Phone KODAK MORTON Primary [...] CHOIC E PREFE RR Apr 13, 2020 [id number] [phone] BOOGIE PINEDA ANDON PATIENT [place] PREFERRED PROVIDER ORGANIZAT ION (PPO) BLUE CHOIC E PREFE RR Apr 13, 2020 [id number] [phone] LYNN,BOOGIE ANDON PATIENT [place] [employer] [place] PREFERRED PROVIDER ORGANIZAT ION (PPO) BLUE CHOIC E PREFE RR Apr 13, 2020 [id number] [phone] BOOGIE PINEDA AND[place] PATIENT [place] PREFERRED PROVIDER ORGANIZAT ION (PPO) BLUE CHOIC E PREFE RR Apr 13, 2020 [id number] [phone] BOOGIE PINEDA PATIENT PRIME THERAPEUTI CS RX PRESCRIPT ION BCBSI L [place] Apr 13, 2020 BCBSIL [id number] [phone] BOOGIE PINEDA PATIENT [facility] [address] RE May 10, 2019 SELECT [id number] 22 BOOGIE PINEDA PATIENT Selected Encounter This section includes the information on record at [place] for the Encounter. Date/Time Encounter Type Encounter Description Reason Pro vider Source August 17, 2023 02:58 PM Outpatient Encounter ADMIN PAT ACTIVTIES (MASNONCT) IHE Encounter Template Text not used by [place] Plan of Treatment: Future Appointments (+ 6 months) and Future Tests (+/- 45 days) The Plan of Treatment section includes future care activities for the patient from all [place] treatmentfacilities. This section includes future appointments and future orders which are active, pending or scheduled. Future Appointments This section includes appointments that were scheduled to occur 6 months from the date of the Encounter, up to a maximum of 20 appointments. The data comes from all [place] treatment facilities. Appointment Date/Time Appointment Type Appointme nt Facility Name Oct 14, 2023 09:15 AM AMBULATORY - MEDICINE [facility] Oct 14, 2023 10:00 AM AMBULATORY - MEDICINE [facility] Nov 18, 2023 10:00 AM AMBULATORY - MEDICINE [facility] Nov 25, 2023 10:00 AM AMBULATORY - MEDICINE [facility] Jan 09, 2024 11:29 AM AMBULATORY - MEDICINE [facility] Jan 09, 2024 03:00 PM AMBULATORY - NONE [facility] Jan 14, 2024 09:00 AM AMBULATORY - MEDICINE [facility] Jan 14, 2024 10:00 AM AMBULATORY - MEDICINE [facility] Jan 26, 2024 01:00 PM AMBULATORY - MEDICINE [facility] Jan 28, 2024 01:45 PM AMBULATORY - REHAB MEDICIN E [facility] Feb 02, 2024 02:00 PM AMBULATORY - PSYCHIATRY [facility] Feb 08, 2024 09:00 AM AMBULATORY - NEUROLOGY [facility] Feb 12, 2024 02:30 PM AMBULATORY - NONE [facility] Feb 17, 2024 01:00 PM AMBULATORY - MEDICINE [facility] Social History: Smoking Status (Most current) and Tobacco Use (All prior to encounter date) This section includes the most current, and the historical, smoking and tobacco- related health factors from the [place] facility where the Encounter took place. Current Smoking Status This section includes the most current smoking, or tobacco-related health factor, from the [place] facility where the Encounter took place. Date/Time Current Smoking Status Comment Facil ity Feb 26, 2021 03:59 PM VA-TOBACCO NEVER USED [facility] Encounter Notes: All associated encounter notes This section contains the clinical notes associated to the Encounter. Date/Time Encounter Note(s) Provider Source August 17, 2023 02:59 PM PHYSICIAN LETTERS: LOCAL TITLE: NO SHOW LETTER STL STANDARD TITLE: PHYSICIAN LETTERS DATE OF NOTE: AUGUST 17, 2023@14:59 ENTRY DATE: AUGUST 17, 2023@14:59:24 AUTHOR: ARIELLE GILES COSIGNER: URGENCY: STATUS: COMPLETED [facility] [address] [place] [address] AUGUST 17, 20[address]YN PINEDA [address] [place] [id number] Dear Jordyn Pineda, Thank you for choosing the [facility] as your primary choice for health care. As a partner in your health care, we are attempting to contact you because our records indicate that you did not make it to your scheduled appointment, and we would like to re-schedule. Please call us at [phone], extension [phone] to speak to us regarding making an appointment in the [facility]. Your good health is important to [...] inquire about scheduling. Sincerely, ARIELLE GILES ADVANCED NURSE EPIDEMIOLOGIST JORDYN PINEDA DANNA [facility] August 17, 2023 02:58 PM ADMINISTRATIVE NOT E: LOCAL TITLE: SCHEDULING NOTE STL STANDARD TITLE: ADMINISTRATIVE NOTE DATE OF NOTE: AUGUST 17, 2023@14:58 ENTRY DATE: AUGUST 17, 2023@14:58:34 AUTHOR: ARIELLE GILES COSIGNER: URGENCY: STATUS: COMPLETED Minimum Scheduling attempts to contact the [place] have been made. RTC/Appt/Consult request will be discontinued after 14 days. Clinic: [facility] [place]: August RTC/Appt request dispositioned due to No Show/Cancellation X 2 (per DIR 1230) Clinic: [facility] Additional comments: vet no show ADDITIONAL RESULTS FROM SCHEDULING ATTEMPTS: /nataliia/ ARIELLE GILES ADVANCED NURSE EPIDEMIOLOGIST Signed: 08/17/2023 14:59 ARIELLE GILES [facility]
--- OUTSIDE RECORDS SUMMARY | 2024-03-31 00:57 | XMS_ITS | Encounter Summary ---
Author Name [facility] [place] Address [address] [place] [address] Care Team Providers Care Biochemistry Technologist Name Role Phone KODAK MORTON Primary Care [...] CHOIC E PREFE RR Apr 13, 2020 [id number] [phone] BOOGIE BAILEY PATIENT [place] [employer] [place] PREFERRED PROVIDER ORGANIZAT ION (PPO) BLUE CHOIC E PREFE RR Apr 13, 2020 [id number] STEPHANIE BAILEYON PATIENT [place] [employer] [place] PREFERRED PROVIDER ORGANIZAT ION (PPO) BLUE CHOIC E PREFE RR Apr 13, 2020 [id number] [phone] BOOGIE BAILEY PATIENT [employer] PREFERRED PROVIDER ORGANIZAT ION (PPO) BLUE CHOIC E PREFE RR Apr 13, 2020 [id number] [phone] BOOGIE BAILEY PATIENT PRIME THERAPEUTI CS RX PRESCRIPT ION BCBSI L [place] Apr 13, 2020 BCBSIL [id number] [phone] BOOGIE BAILEY PATIENT [facility] [address] RE May 10, 2019 SELECT [id number] 22 BOOGIE BAILEY PATIENT Selected Encounter This section includes the information on record at [place] for the Encounter. Date/Time Encounter Type Encounter Description Reason Provider Source September 02, 2023 08:49 AM Outpatient Encounter PULMONARY/CHEST SCOTT GUAJARDO [facility] Encounter Template Text not used by [place] Plan of Treatment: Future Appointments (+ 6 months) and Future Tests (+/- 45 days) The Plan of Treatment section includes future care activities for the patient from all [place] treatmentfacilities. This section includes future appointments and future orders which are active, pending or scheduled. Future Appointments This section includes appointments that were scheduled to occur 6 months from the date of the Encounter, up to a maximum of 20 appointments. The data comes from all [place] treatment facilities. Appointment Date/Time Appointment Type Appointme nt Facility Name Oct 14, 2023 09:15 AM AMBULATORY - MEDICINE [facility] Oct 14, 2023 10:00 AM AMBULATORY - MEDICINE [facility] Nov 18, 2023 10:00 AM AMBULATORY - MEDICINE [facility] Nov 25, 2023 10:00 AM AMBULATORY - MEDICINE [facility] Jan 09, 2024 11:29 AM AMBULATORY - MEDICINE [facility] Jan 09, 2024 03:00 PM AMBULATORY - NONE [facility] Jan 14, 2024 09:00 AM AMBULATORY - MEDICINE [facility] Jan 14, 2024 10:00 AM AMBULATORY - MEDICINE [facility] Jan 26, 2024 01:00 PM AMBULATORY - MEDICINE [facility] Jan 28, 2024 01:45 PM AMBULATORY - REHAB MEDICIN E [facility] Feb 02, 2024 02:00 PM AMBULATORY - PSYCHIATRY [facility] Feb 08, 2024 09:00 AM AMBULATORY - NEUROLOGY [facility] Feb 12, 2024 02:30 PM AMBULATORY - NONE [facility] Feb 17, 2024 01:00 PM AMBULATORY - MEDICINE [facility] Feb 25, 2024 09:30 AM AMBULATORY - MEDICINE [facility] Social History: Smoking Status (Most current) and Tobacco Use (All prior to encounter date) This section includes the most current, and the historical, smoking and tobacco- related health factors from the [place] facility where the Encounter took place. Current Smoking Status This section includes the most current smoking, or tobacco-related health factor, from the [place] facility where the Encounter took place. Date/Time Current Smoking Status Comment Facil ity Feb 26, 2021 03:59 PM VA-TOBACCO NEVER USED [facility] Encounter Notes: All associated encounter notes This section contains the clinical notes associated to the Encounter. Date/Time Encounter Note(s) Provider Source September 02, 2023 08:49 AM [employer] DIALOG NOTE: LOCAL TITLE: [employer] STANDARD TITLE: [employer] DIALOG NOTE DATE OF NOTE: SEPTEMBER 02, 2023@08:49 ENTRY DATE: SEPTEMBER 02, 2023@08:49:07 AUTHOR: SCOTT GUAJARDO EXP COSIGNER: URGENCY: STATUS: COMPLETED ------Original Message ------- Sent: 09/02/2023 07:23 AM ET From: JORDYN BAILEY To: [facility], PULMONARY , SPECIALTY MEDICINE @ Subject: Appointment:New appointment request please Wilder, I had an appointment with your clinic on August 11 but tried to get it rescheduled which did not happen, can i please get an appointment with your earliest availability? My PCM did put in a referral for me beforehand! Thank you. ------Original Message ------- Sent: 09/02/2023 09:48 AM ET From: SCOTT GUAJARDO To: JORDYN BAILEY Subject: Appointment:New appointment request please Morning, Your appointment with Pulmonary was August 16. You can contact the scheduling office at [phone]. Please call today. They are there 8-4p. Thanks, Tete /es/ SCOTT GUAJARDO MSN,RN REGISTERED NURSE Signed: 09/02/2023 08:49 SCOTT GUAJARDO [facility]
--- OUTSIDE RECORDS SUMMARY | 2024-03-31 00:57 | XMS_ITS | Encounter Summary ---
Author Name [facility] [place] [facility] [place] Address [address] [place] [address] Care Team Providers Care Automation Developer Name Role Phone KODAK MORTON Primary Care [...] CHOIC E PREFE RR Apr 13, 2020 [id number] [phone] BOOGIE BAILEY ANDON PATIENT ANTHEM [employer] [place] PREFERRED PROVIDER ORGANIZAT ION (PPO) BLUE CHOIC E PREFE RR Apr 13, 2020 [id number] LYNN,BOOGIE ANDON PATIENT AN[employer] [employer] [place] PREFERRED PROVIDER ORGANIZAT ION (PPO) BLUE CHOIC E PREFE RR Apr 13, 2020 [id number] [phone] BOOGIE BAILEY ANDON PATIENT [employer] [place] PREFERRED PROVIDER ORGANIZAT ION (PPO) BLUE CHOIC E PREFE RR Apr 13, 2020 [id number] [phone] BOOGIE BAILEY PATIENT PRIME THERAPEUTI CS RX PRESCRIPT ION [employer]BS[employer] L [place] Apr 13, 2020 [id number] [phone] BOOGIE BAILEY PATIENT [facility] 2018 [place] RE May 10, 2019 [facility] [id number] BOOGIE BAILEY PATIENT Selected Encounter This section includes the information on record at [place] for the Encounter. Date/Time Encounter Type Encounter Description Reason Pro vider Source Nov 26, 2023 01:21 PM Outpatient Encounter ADMIN PAT ACTIVTIES (MASNONCT) IHE Encounter Template Text not used by [place] Plan of Treatment: Future Appointments (+ 6 months) and Future Tests (+/- 45 days) The Plan of Treatment section includes future care activities for the patient from all [place] treatmentfacilities. This section includes future appointments and future orders which are active, pending or scheduled. Future Appointments This section includes appointments that were scheduled to occur 6 months from the date of the Encounter, up to a maximum of 20 appointments. The data comes from all [place] treatment facilities. Appointment Date/Time Appointment Type Appointme nt Facility Name Jan 09, 2024 11:29 AM AMBULATORY - MEDICINE [facility] Jan 09, 2024 03:00 PM AMBULATORY - NONE [facility] Jan 14, 2024 09:00 AM AMBULATORY - MEDICINE [facility] Jan 14, 2024 10:00 AM AMBUL[facility]ORY - MEDICINE [facility] Jan 26, 2024 01:00 PM AMBULATORY - MEDICINE [facility] Jan 28, 2024 01:45 PM AMBULATORY - REHAB [facility]ICIN [facility] Feb 02, 2024 02:00 PM AMBULATORY - PSYCHIATRY [facility] Feb 08, 2024 09:00 AM AMBULATORY - NEUROLOGY [facility] Feb 12, 2024 02:30 PM AMBULATORY - NONE [facility] Feb 17, 2024 01:00 PM AMBULATORY - MEDICINE [facility] Feb 25, 2024 09:30 AM AMBULATORY - MEDICINE [facility] Mar 05, 2024 08:43 AM AMBULATORY - MEDICINE [facility] Mar 16, 2024 10:15 AM AMBULATORY - SURGERY [facility] Mar 21, 2024 12:14 PM AMBULATORY - MEDICINE [facility] Apr 01, 2024 10:00 AM AMBULATORY - PSYCHIATRY [facility] Apr 28, 2024 03:00 PM AMBULATORY - MEDICINE [facility] May 05, 2024 11:30 AM AMBULATORY - MEDICINE [facility] May 27, 2024 11:00 AM AMBULATORY - MEDICINE [facility] Lab Results: +/- 30 days of the encounter This section includes the Chemistry and Hematology Lab Results on record with [place] for the patient. Radiology Reports and Pathology Reports are provided separately, in subsequent sections. Lab Results This section contains the Chemistry/Hematology Results that were resulted 30 days before or 30 daysafter the date of the Encounter. Date/Time Source Result Type Result - Unit Interpretation Reference Range Comment Nov 25, 2023 11:00 AM [facility] COMPREHENSIVE METABOLIC PANEL Specimen Type: PLASMA Comment: No hemolysis noted. Ordering Provider: FRANSISCO MORTON Report Released Date/Time: Nov 25, 2023 10:43 AM Reporting Lab: [facility] [address] [place] [id number] Performing Lab: [address] [address] CREATININE 0.95 mg/dL 0.7-1.3 UREA NITROGEN 10.5 [...] 105.1 >60 Nov 25, 2023 11:00 AM [facility] LIPID PANEL (STL) Specimen Type: PLASMA Comment: No hemolysis noted. Ordering Provider: FRANSISCO MORTON Report Released Date/Time: Nov 25, 2023 10:43 AM Reporting Lab: [place] [phone] Performing Lab: [address] [phone] CHOLESTEROL 150 mg/dL 0-200 TRIGLYCERIDE 184 mg/dL H 0-150 CALCULATED LDL 90 mg/dL HDL(New) 23 mg/dL L >40 Nov 25, 2023 11:00 AM [facility] HGA1C Specimen Type: BLOOD No comment entered. Ordering Provider: FRANSISCO MORTON Report Released Date/Time: Nov 25, 2023 10:43 AM Reporting Lab: [address] [phone] Performing Lab: [place] [phone] HGA1C 5.7 4.0-6.0 Nov 25, 2023 11:00 AM [facility] CBC Specimen Type: BLOOD No comment entered. Ordering Provider: FRANSISCO MORTON Report Released Date/Time: Nov 25, 2023 10:43 AM Reporting Lab: [address] [address] Performing Lab: [address] [phone] WBC 4.6 10*3/uL 3.6-11.2 RBC 5.54 10*6/uL [...] 10*3/uL 0.00-0.20 Nov 25, 2023 11:00 AM [facility] VITAMIN D, 25-HYDROXY Specimen Type: SERUM No comment entered. Ordering Provider: FRANSISCO MORTON Report Released Date/Time: Nov 25, 2023 10:43 AM Reporting Lab: [facility] [address] [facility] [phone] Performing Lab: [place] [id number] [facility] [phone] VITAMIN D, 25-HYDROXY 37.8 ng/mL 30-96 Social History: Smoking Status (Most current) and Tobacco Use (All prior to encounter date) This section includes the most current, and the historical, smoking and tobacco- related health factors from the [place] facility where the Encounter took place. Current Smoking Status This section includes the most current smoking, or tobacco-related health factor, from the [place] facility where the Encounter took place. Date/Time Current Smoking Status Comment Nicolas allen Feb 26, 2021 03:59 PM VA-TOBACCO NEVER USED [facility] Encounter Notes: All associated encounter notes This section contains the clinical notes associated to the Encounter. Date/Time Encounter Note(s) Provider Source Nov 26, 2023 01:21 PM CAREGIVER CERTIFIC ATE: LOCAL TITLE: CSP ADMINISTRATIVE NOTE STANDARD TITLE: CAREGIVER CERTIFICATE DATE OF NOTE: NOV 26, 2023@13:21 ENTRY DATE: NOV 26, 2023@13:21:46 AUTHOR: RANDY APONTE COSIGNER: URGENCY: STATUS: COMPLETED 1010CG application for the Program of Comprehensive Assistance for Family Caregivers received on 11/26/2023. 1010CG completed by [place] and Primary Family Caregiver Applicant, Ahmet Wisdom. Initial eligibility and enrollment verified in [facility]. Initial letter sent to [place] and Caregiver Applicant with local Caregiver Support contact information, [facility] Application Processing fact sheet, and local resource guide. Authorized Supervisory Examiner: Kevin Gonzales VARO [address] [place] [address], [facility]. [facility] [address] [place] [address] [id number] /[email or web address]/ JUANJO Cordova, MANAGER [employer] Clinical Forex Trader Signed: 11/26/2023 13:27 Receipt Acknowledged By: 11/27/2023 14:57 /es/ JUANJO Zamora, NATE ARGUETAW, Caregiver Support Fpga Engineer 11/26/2023 15:37 /es/ SUDARSHAN CEJA Ship Purser RANDY APONTE [facility]
--- OUTSIDE RECORDS SUMMARY | 2024-03-31 00:57 | XMS_ITS | Encounter Summary ---
Author Name [facility] [facility] [place] [facility] [place] Address [address], [place] [address] Care Team Providers Care Manager Underwriting Name Role Phone KODAK MORTON Primary Care [...] CHOIC E PREFE RR Apr 13, 2020 [id number] [phone] BOOGIE PINEDA PATIENT ANTHEM [employer] [place] PREFERRED PROVIDER ORGANIZAT ION (PPO) BLUE CHOIC E PREFE RR Apr 13, 2020 [id number] [phone] STEPHANIE PINEDAON PATIENT ANTHEM [employer] [place] PREFERRED PROVIDER ORGANIZAT ION (PPO) BLUE CHOIC E PREFE RR Apr 13, 2020 [id number] [phone] BOOGIE PINEDA PATIENT [place] PREFERRED PROVIDER ORGANIZAT ION (PPO) BLUE CHOIC E PREFE RR Apr 13, 2020 [id number] [phone] BOOGIE PINEDA PATIENT PRIME THERAPEUTI CS RX PRESCRIPT ION BCBSI L [place] Apr 13, 2020 BCBSIL [id number] [phone] BOOGIE PINEDA PATIENT FORMERLY [facility] [address] [place] May 10, 2019 SELECT [id number] BOOGIE PINEDA PATIENT Selected Encounter This section includes the information on record at [place] for the Encounter. Date/Time Encounter Type Encounter Description Reason Provider Source Nov 25, 2023 10:00 AM OFFICE O/P EST MOD 30 MIN PRIMARY CARE/MEDICINE ICD-10-CM H60.92 Unspecified otitis externa, left ear SELENE,MOHAMMAD T IHE Encounter Template Text not used by [place] Assessments - Encounter Diagnoses This section includes the primary and secondary diagnoses documented for the Encounter. Date/Time Primary/Secondary Diagnosis Diagnosis Name Provider Source Nov 25, 2023 10:48 AM PRIMARY Unspecified otitis externa, left ear SELENE,MOHAMMAD [facility] Nov 25, 2023 10:48 AM SECONDARY Anxiety disorder, unspecified SELENE,MOHAMMAD T [facility] Nov 25, 2023 10:48 AM SECONDARY Insomnia, unspecified SELENE,[facility]HAMMAD [facility] Nov 25, 2023 10:48 AM SECONDARY Obesity, unspecified SELENE,[facility]HAMMAD [facility] Nov 25, 2023 10:48 AM SECONDARY Other allergic rhinitis [facility] Plan of Treatment: Future Appointments (+ 6 months) and Future Tests (+/- 45 days) The Plan of Treatment section includes future care activities for the patient from all [place] treatmentfacilities. This section includes future appointments and future orders which are active, pending or scheduled. Future Appointments This section includes appointments that were scheduled to occur 6 months from the date of the Encounter, up to a maximum of 20 appointments. The data comes from all [place] treatment facilities. Appointment Date/Time Appointment Type Appointme nt Facility Name Jan 09, 2024 11:29 AM AMBULATORY - MEDICINE [facility] Jan 09, 2024 03:00 PM AMBULATORY - NONE [facility] Jan 14, 2024 09:00 AM AMBULATORY - MEDICINE [facility] Jan 14, 2024 10:00 AM AMB[facility]ORY - MEDICINE [facility] Jan 26, 2024 01:00 PM AMBULATORY - MEDICINE [facility] Jan 28, 2024 01:45 PM AMBULATORY - REHAB MEDICIN E [facility] Feb 02, 2024 02:00 PM AMBULATORY - PSYCHIATRY [facility] Feb 08, 2024 09:00 AM AMBULATORY - NEUROLOGY [facility] Feb 12, 2024 02:30 PM AM[facility]ULAT[facility] - NONE [facility] Feb 17, 2024 01:00 PM AMBULATORY - MEDICINE [facility] Feb 25, 2024 09:30 AM AMBULATORY - MEDICINE [facility] Mar 05, 2024 08:43 AM AMBULATORY - MEDICINE [facility] Mar 16, 2024 10:15 AM AMBULATORY - SURGERY [facility] Mar 21, 2024 12:14 PM AMBULATORY - MEDICINE [facility] Apr 01, 2024 10:00 AM AMBULATORY - PSYCHIATRY [facility] Apr 28, 2024 03:00 PM AMBULATORY - MEDICINE [facility] May 05, 2024 11:30 AM AMBULATORY - MEDICINE [facility] May 27, 2024 11:00 AM AMBULATORY - MEDICINE [facility] Lab Results: +/- 30 days of the encounter This section includes the Chemistry and Hematology Lab Results on record with [facility] for the patient. Radiology Reports and Pathology Reports are provided separately, in subsequent sections. Lab Results This section contains the Chemistry/Hematology Results that were resulted 30 days before or 30 daysafter the date of the Encounter. Date/Time Source Result Type Result - Unit Interpretation Reference Range Comment Nov 25, 2023 11:00 AM [facility] LIPID PANEL (STL) Specimen Type: PLASMA Comment: No hemolysis noted. Ordering Provider: FRANSISCO MORTON Report Released Date/Time: Nov 25, 2023 10:43 AM Reporting Lab: [facility] [address] [phone] Performing Lab: [facility] [address] [phone] CHOLESTEROL 150 mg/dL 0-200 TRIGLYCERIDE 184 mg/dL H 0-150 CALCULATED LDL 90 mg/dL HDL(New) 23 mg/dL L >40 Nov 25, 2023 11:00 AM [facility] COMPREHENSIVE METABOLIC PANEL Specimen Type: PLASMA Comment: No hemolysis noted. Ordering Provider: FRANSISCO MORTON Report Released Date/Time: Nov 25, 2023 10:43 AM Reporting Lab: [facility] [address] [place] [phone] Performing Lab: [facility] [address] [place] [phone] CREATININE 0.95 mg/dL 0.7-1.3 UREA NITROGEN 10.5 [...] 105.1 >60 Nov 25, 2023 11:00 AM [facility] HGA1C Specimen Type: BLOOD No comment entered. Ordering Provider: FRANSISCO MORTON Report Released Date/Time: Nov 25, 2023 10:43 AM Reporting Lab: [facility] [address] [phone] Performing Lab: [facility] [address] [phone] HGA1C 5.7 4.0-6.0 Nov 25, 2023 11:00 AM [facility] CBC Specimen Type: BLOOD No comment entered. Ordering Provider: FRANSISCO MORTON Report Released Date/Time: Nov 25, 2023 10:43 AM Reporting Lab: [facility] [address] [facility] [phone] Performing Lab: [facility] [address] [phone] WBC 4.6 10*3/uL 3.6-11.2 RBC 5.54 10*6/uL [...] 10*3/uL 0.00-0.20 Nov 25, 2023 11:00 AM [facility] VITAMIN D, 25-HYDROXY Specimen Type: SERUM No comment entered. Ordering Provider: FRANSISCO MORTON Report Released Date/Time: Nov 25, 2023 10:43 AM Reporting Lab: [facility] [address] [place] [phone] Performing Lab: [address] [phone] VITAMIN D, 25-HYDROXY 37.8 ng/mL 30-96 Vital Signs: All taken on the encounter date This section contains inpatient and outpatient Vital Signs collected on the date of the Encounter. Date/Time Temperature Pulse Blood Pressure Respiratory Rate SP02 Pain Height Weight Body Mass Index Source Nov 25, 2023 10:03 AM 97.8 80 117/82 18 97 3 220.4 32 [facility] Social History: Smoking Status (Most current) and Tobacco Use (All prior to encounter date) This section includes the most current, and the historical, smoking and tobacco- related health factors from the [place] facility where the Encounter took place. Current Smoking Status This section includes the most current smoking, or tobacco-related health factor, from the [place] facility where the Encounter took place. Date/Time Current Smoking Status Comment Nicolas allen May 20, 2023 09:00 AM VA-TOBACCO FORMER USER [facility] Tobacco Use History This section includes a history of the smoking, or tobacco-related health factors, that were collected on or before the date of the Encounter. The data comes from the [place] facility where the Encounter took place. Date/Time Smoking Status/Tobacco Use Comment Winsome aczofia May 20, 2023 09:00 AM VA-TOBACCO QUIT 15 YRS OR MORE [facility] May 28, 2022 10:30 AM VA-TOBACCO NEVER USED [facility] Encounter Notes: All associated encounter notes This section contains the clinical notes associated to the Encounter. Date/Time Encounter Note(s) Provider Source Dec 04, 2023 01:18 PM PSYCHIATRY NOTE: LOCAL TITLE: PSYCHIATRY STL STANDARD TITLE: PSYCHIATRY NOTE DATE OF NOTE: DEC 04, 2023@13:18 ENTRY DATE: DEC 04, 2023@13:18:15 AUTHOR: TIRSO MONREAL EXP COSIGNER: URGENCY: STATUS: COMPLETED Completed an administrative review to determine eligibility for Community Care. [place] [x] is eligible for community care based on: [x] Wait Time- next available appointment for services exceeds 20 days for f2f CORRECTIONS CADET. /nataliia/ Brandt Monreal M.D. Staff Psychiatrist, [facility] Signed: 12/04/2023 13:19 Receipt Acknowledged By: 12/07/2023 07:46 /nataliia/ GISELLE MESA, PH.D. Psychologist TIRSO MONREAL [facility] Nov 25, 2023 10:20 AM PRIMARY CARE NOTE: LOCAL TITLE: PRIMARY CARE PROVIDER ESTABLISHED VISIT STL STANDARD TITLE: PRIMARY CARE NOTE DATE OF NOTE: NOV 25, 2023@10:20 ENTRY DATE: NOV 25, 2023@10:20:57 AUTHOR: KODAK MORTON EXP COSIGNER: URGENCY: STATUS: COMPLETED ESTABLISHED PATIENT [id number]: REASON FOR VISIT/CHIEF COMPLAINT: Left ear pain/sinus/cold symptoms HPI: Mr. Pineda is a 38 yrs old Obese WM Report continued cough post COVID in April 2023 saw pulmonary October 13 did not help mark , stopped using inhaler gave him anxiety as as he discussed with pulmonary Lately sinus congestion left ear pain no fever, no sob Anxiety not able to sleep at night Obstructive sleep apnea send my sleep is change , using CPAP as find mask off of him in middle of night or in morning on the floor Complaining of insomnia getting off in the middle of night or hard to fall to sleep Complaining of left ear pain 07/21 no discharge denies any fever chills Obesity with Elevated LFTs and DX with Fatty liver ds saw Network Analyst, working on losing weight but not success, encourage to join 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 No longer tales Sertraline initially given by psy in 2021 as GI felt that could also affect liver and can rise LFTs Saeed no other complaint PAST MEDICAL HISTORY: 1) Chronic back pain 2) Sleep apnea 3) Posttraumatic stress disorder 4) Major depressive disorder 5) Steatosis of liver 6) Obesity 7) Exposure to potentially hazardous substance SOCIAL HISTORY: NICOTINE: Nicotine User: No ALLERGIES: SHELLFISH ALLERGY REVIEW: Allergy list reviewed and remains current. MEDICATION RECONCILIATION: I have reviewed the patient's medication list with the patient and/or his/her care-dictating machine transcriber. Handwritten corrections, additions and/or deletions were made to the list. Corrected Outpatient Medication List was provided to the patient/caregiver. Active Outpatient Medications (including Supplies): Active Outpatient Medications Status 1) ALBUTEROL 90MCG (CFC-F) 200D ORAL INHL INHALE 2 PUFFS ACTIVE ORAL INHALATION FOUR TIMES A DAY NEEDED FOR ASTHMA SHAKE WELL. RINSE MOUTHPIECE FREQUENTLY TO PREVENT CLOGGING. 2) BENZONATATE 200MG CAP TAKE ONE CAPSULE BY MOUTH THREE ACTIVE TIMES A DAY NEEDED FOR COUGH 3) FLUTICAS 250/SALMETEROL 50 INHL DISK 60 INHALE 1 ACTIVE INHALATION ORAL INHALATION TWICE A DAY FOR ASTHMA (OPEN DISKUS; CLICK ONLY ONCE; MAY INHALE TWICE TO COMPLETE DOSE; CLOSE WHEN FINISHED) RINSE MOUTH AND SPIT AFTER EACH USE. PHYSICAL EXAMINATION: Male General appearance: VITALS (most recent, as listed in the electronic record): B/P: 117/82 (11/25/2023 10:03) Pulse: 80 (11/25/2023 10:03) Temperature: 97.8 F [36.6 C] (11/25/2023 10:03) Weight: 220.4 lb [99.97 kg] (11/25/2023 10:03) Height: 70 in [177.8 cm] (05/28/2022 10:51) BMI: 31.7 Pain: 3 (11/25/2023 10:03) (0-10 scale) Physical findings: Obese male walk w/o gait dist in NAD HEENT:nc, Scler/conj clear ,OP clear, right ear canal clear slightly red tympanic membrane intack Neck:Supple Heart:S1 S2 , RRR , No m/g/r appreciated Lungs:clear to auscultate no wheezing or rale , Abdomen:soft nt no HSM BS+ Ext:no leg edema Neuro:A & O x3 , no focal deficit DATA REVIEW: HbA1C: HGA1C 5.6 % 05/20/2023 10:15 Lipid Panel: TRIGLYCERIDE 222 H mg/dL 05/20/2023 10:15 CHOLESTEROL 165 mg/dL 05/20/2023 10:15 HDL(New) 24 L mg/dL 05/20/2023 10:15 CALCULATED LDL 97 mg/dL 05/20/2023 10:15 CMP: SODIUM 138 mEq/L 05/20/2023 10:15 POTASSIUM 4.2 mEq/L 05/20/2023 10:15 CHLORIDE 106 mEq/L 05/20/2023 10:15 UREA NITROGEN 11.7 mg/dL 05/20/2023 10:15 CREATININE 0.91 mg/dL 05/20/2023 10:15 CALCIUM 9.5 mg/dL 05/20/2023 10:15 PROTEIN 8.7 H g/dL 05/20/2023 10:15 ALBUMIN 4.4 g/dL 05/20/2023 10:15 ALKALINE PHOSPHATASE 70 U/L 05/20/2023 10:15 ALT/SGPT 67 H U/L 05/20/2023 10:15 AST/SGOT 35 H U/L 05/20/2023 10:15 TOTAL BILIRUBIN 0.7 mg/dL 05/20/2023 10:15 CARBON DIOXIDE 26 mEq/L 05/20/2023 10:15 GLUCOSE 97 mg/dL 05/20/2023 10:15 EGFR (CKD-EPI 2020) 110.6 05/20/2023 10:15 CBC: WBC 4.8 10*3/uL 05/20/2023 10:15 RBC 4.85 10*6/uL 05/20/2023 10:15 HGB 13.9 g/dL 05/20/2023 10:15 HCT 40.2 % 05/20/2023 10:15 MCV 82.9 fL 05/20/2023 10:15 MCH 28.7 pg 05/20/2023 10:15 MCHC 34.6 g/dL 05/20/2023 10:15 RDW 13.5 % 05/20/2023 10:15 PLT 190 10*3/uL 05/20/2023 10:15 MPV 10.2 fL 05/20/2023 10:15 NEUTROPHILS, AUTO % 54 % 05/20/2023 10:15 LYMPHOCYTES, AUTO % 27 % 05/20/2023 10:15 MONOCYTES, AUTO % 14 % 05/20/2023 10:15 EOSINOPHILS, AUTO % 5 % 05/20/2023 10:15 BASOPHILS, AUTO % 0 % 05/20/2023 10:15 IMMATURE GRANS, AUTO % 0.0 % 11/27/2021 15:19 NEUTROPHILS, ABSOLUTE 2.58 10*3/uL 05/20/2023 10:15 LYMPHOCYTES, ABSOLUTE 1.30 10*3/uL 05/20/2023 10:15 MONOCYTES, ABSOLUTE 0.66 10*3/uL 05/20/2023 10:15 EOSINOPHILS, ABSOLUTE 0.22 10*3/uL 05/20/2023 10:15 BASOPHILS, ABSOLUTE 0.02 10*3/uL 05/20/2023 10:15 IMMATURE GRANS, AUTO ABS 0.00 10*3/uL 11/27/2021 15:19 PSA: No PSA EO data found TSH: TSH 3.742 uIU/mL 12/23/2022 09:57 INR: INR VALUE 1.2 INR 05/28/2022 11:40 PROTIME 13.1 H sec 05/28/2022 11:40 UA: No URINALYSIS EO data found Dilantin: ____ Digoxin: No data available for: DIGOXIN Chest x-ray: Impression for CHEST X-RAY, 2 VIEWS, 05/20/23, case 2350 No acute cardiopulmonary process. EKG: No data available for: EKG CONSULT STL EKG CONSULTS PB EKG RESULTS MA Result: Acceptable Follow-up Action: Data results reviewed with patient and/or caregiver. ASSESSMENT/PLAN: 1) otitis externa we will give cortisporin otic suspension using canal as directed call if not can feel better or condition worse 2)Obesity lose wt. avoid juice , sweet call MOVE and Stone Repairer 3)Fatty liver ds as above , repeat LFTs 4).KHADRA encouraged to continue use CPAP daily 5) insomnia discussed good sleep hygiene Will to give a trial of melatonin 6 mg at bedtime SUMMARY STATEMENT: Plan of care has been discussed with including expected therapeutic benefits and potential side effects of prescribed medication and treatments. [place] verbalizes understanding and is in agreement with the plan of care. Patient was instructed to keep all scheduled appointments and contact bridge painter for any additional problems. /nataliia/ Kodak Morton MD Staff Physician Signed: 12/27/2023 22:40 KODAK MORTON [facility] Nov 25, 2023 10:04 AM NURSING NOTE: LOCAL TITLE: V15 PACT FACE TO FACE NOTE ST STANDARD TITLE: NURSING NOTE DATE OF NOTE: NOV 25, 2023@10:04 ENTRY DATE: NOV 25, 2023@10:04:31 AUTHOR: BOBBY MUNSON EXP COSIGNER: URGENCY: STATUS: COMPLETED Provider Visit: Patient Identifiers : Full Name Date of Reason for visit: Established Follow-Up Mode of Arrival: Ambulatory Allergy Review: SHELLFISH Allergy list reviewed and remains current. Recent Vital Signs: Temperature: 97.8 F [36.6 C] (11/25/2023 10:03) Pulse: 80 (11/25/2023 10:03) Respiration: 18 (11/25/2023 10:03) B/P: 117/82 (11/25/2023 10:03) Pain: 3 (11/25/2023 10:03) Wt: 220.4 lb [99.97 kg] (11/25/2023 10:03) Ht: 70 in [177.8 cm] (05/28/2022 10:51) BMI: 31.7 POX: 97% (11/25/2023 10:03) Blood sugar glucometer reading: n/a PERSONAL HEALTH INVENTORY Notes: No data available for PHI note titles PERSONAL HEALTH INVENTORY - MAP: 05/20/2023 Personal Health Plan [place], [place], [place] (MAP) family 08/27/2021 Personal Health Plan [place], [place] (MAP) MY FAMILY IS MY MOTIVATION. What matters most to you in your life right now? --- [place]'s Response: my family Would you like to discuss any personal problem, family problem, alcohol use, drug use, or a mental or emotional illness? No Contact provided Primary Care phone number and encouraged to call if any questions or concerns. Review that after hours nurse line [phone] and emergency room are available 03/11 for patient use. Contact verbalized good understanding. No notification required for this note. Alcohol Use Screen (AUDIT-C): Alcohol Screen: SCREEN FOR ALCOHOL (AUDIT-C) An alcohol screening test (AUDIT-C) was negative (score=0). 1. How often did you have a drink containing alcohol in the past year? Consider a drink to be a 12 ounce can or bottle of regular beer, 8 ounces of malt liquor, a 5 ounce glass of table wine, or a 1.5 ounce shot of liquor (like scotch, gin, or vodka). Never 2. How many drinks containing alcohol did you have on a typical day when you were drinking in the past year? Response not required due to responses to other questions. 3. How often did you have six or more drinks on one occasion in the past year? Response not required due to responses to other questions. PTSD Screening: PC-PTSD-5 A PTSD screening test (PC-PTSD-5) was negative (score=0). IN THE PAST MONTH, have you ever had any experience that was so frightening, horrible or traumatic. For example: A serious accident or fire a physical or sexual assault or abuse An earthquake or flood A war Seeing someone be killed or seriously injured Having a loved one through homicide or suicide 1. Have you ever experienced this kind of event? NO 2. Had nightmares about the event(s) or thought about the event(s) when you did not want to? Response not required due to responses to other questions. 3. Tried hard not to think about the event(s) or went out of your way to avoid situations that reminded you of the event(s)? Response not required due to responses to other questions. 4. Been constantly on guard, watchful, or easily startled? Response not required due to responses to other questions. 5. [place] numb or detached from people, activities, or your surroundings? Response not required due to responses to other questions. 6. [place] guilty or unable to stop blaming yourself or others for the event(s) or any problems the event(s) may have caused? Response not required due to responses to other questions. /nataliia/ BOBBY MUNSON LPN LICENSED PRACTICAL NURSE Signed: 11/25/2023 10:08 BOBBY MUNSON [facility]
--- OUTSIDE RECORDS SUMMARY | 2024-03-31 00:57 | XMS_ITS | Encounter Summary ---
Author Name [facility] [place] Address [address] [place] [address] Care Team Providers Care Leadership Development Manager Name Role Phone KODAK MORTON Primary Care [...] CHOIC E PREFE RR Apr 13, 2020 [id number] [phone] BOOGIE BAILEY PATIENT [place] PREFERRED PROVIDER ORGANIZAT ION (PPO) BLUE CHOIC E PREFE RR Apr 13, 2020 [id number] [phone] STEPHANIE BAILEYON PATIENT AN[employer]M [place] PREFERRED PROVIDER ORGANIZAT ION (PPO) BLUE CHOIC E PREFE RR Apr 13, 2020 [id number] [phone] BOOGIE BAILEY PATIENT [place] PREFERRED PROVIDER ORGANIZAT ION (PPO) BLUE CHOIC E PREFE RR Apr 13, 2020 [id number] [phone] BOOGIE BAILEY PATIENT PRIME THERAPEUTI CS RX PRESCRIPT ION BCBSI L TAYLER Apr 13, 2020 BCBSIL [id number] [phone] BOOGIE BAILEY PATIENT [facility] [address] May 10, 2019 SELECT [id number] 22 BOOGIE BAILEY PATIENT Selected Encounter This section includes the information on record at [place] for the Encounter. Date/Time Encounter Type Encounter Description Reason Provider Source Oct 14, 2023 10:00 AM SPACER WITHOUT MASK PULMONARY FUNCTION ICD-10-CM R05.3 Chronic cough [facility] Encounter Template Text not used by [place] Assessments - Encounter Diagnoses This section includes the primary and secondary diagnoses documented for the Encounter. Date/Time Primary/Secondary Diagnosis Diagnosis Name Provider Source Oct 14, 2023 01:05 PM PRIMARY Chronic cough BEATRIZ SWANN [facility] Plan of Treatment: Future Appointments (+ 6 months) and Future Tests (+/- 45 days) The Plan of Treatment section includes future care activities for the patient from all [place] treatmentfacilities. This section includes future appointments and future orders which are active, pending or scheduled. Future Appointments This section includes appointments that were scheduled to occur 6 months from the date of the Encounter, up to a maximum of 20 appointments. The data comes from all [place] treatment facilities. Appointment Date/Time Appointment Type Appointme nt Facility Name Nov 18, 2023 10:00 AM AMBULATORY - MEDICINE [facility] Nov 25, 2023 10:00 AM AMBULATORY - MEDICINE [facility] Jan 09, 2024 11:29 AM AMBULATORY - MEDICINE [facility] Jan 09, 2024 03:00 PM AMBULATORY - NONE [facility] Jan 14, 2024 09:00 AM AMBULATORY - MEDICINE [facility] Jan 14, 2024 10:00 AM AMBULATORY - MEDICINE [facility] Jan 26, 2024 01:00 PM AMBULATORY - MEDICINE [facility] Jan 28, 2024 01:45 PM AMBULATORY - REHAB MEDICIN E [facility] Feb 02, 2024 02:00 PM AMBULATORY - PSYCHIATRY [facility] Feb 08, 2024 09:00 AM AMBULATORY - NEUROLOGY [facility] Feb 12, 2024 02:30 PM AMBULATORY - NONE [facility] Feb 17, 2024 01:00 PM AMBULATORY - MEDICINE [facility] Feb 25, 2024 09:30 AM AMBULATORY - MEDICINE [facility] Mar 05, 2024 08:43 AM AMBULATORY - MEDICINE [facility] Mar 16, 2024 10:15 AM AMBULATORY - SURGERY . Kelsie CHAVEZ [facility] Mar 21, 2024 12:14 PM AMBULATORY - MEDICINE [facility] Apr 01, 2024 10:00 AM AMBULATORY - PSYCHIATRY [facility] Vital Signs: All taken on the encounter date This section contains inpatient and outpatient Vital Signs collected on the date of the Encounter. Date/Time Temperature Pulse Blood Pressure Respiratory Rate SP02 Pain Height Weight Body Mass Index Source Oct 14, 2023 09:09 AM 98.2 86 117/78 16 97 3 221.4 32 [facility] Social History: Smoking Status (Most current) and Tobacco Use (All prior to encounter date) This section includes the most current, and the historical, smoking and tobacco- related health factors from the [place] facility where the Encounter took place. Current Smoking Status This section includes the most current smoking, or tobacco-related health factor, from the [place] facility where the Encounter took place. Date/Time Current Smoking Status Comment Nicolas allen Feb 26, 2021 03:59 PM VA-TOBACCO NEVER USED [facility] Encounter Notes: All associated encounter notes This section contains the clinical notes associated to the Encounter. Date/Time Encounter Note(s) Provider Source Oct 14, 2023 03:50 PM PULMONARY PROCEDUR E NOTE: LOCAL TITLE: PFT PROCEDURE REPORT [facility] STANDARD TITLE: PULMONARY PROCEDURE NOTE DATE OF NOTE: OCT 14, 2023@15:50:07 ENTRY DATE: OCT 14, 2023@15:50:07 AUTHOR: CLINICAL,DEVICE PRO EXP COSIGNER: URGENCY: STATUS: COMPLETED PROCEDURE SUMMARY CODE: Machine Resulted DATE/TIME PERFORMED: OCT 14, 2023@15:49:4 DOCUMENT IN VISTA IMAGING SEE FULL REPORT IN VISTA IMAGING SIGNATURE NOT REQUIRED SEE SIGNATURE IN [facility]AGING (Combined Effort) AUTO-INSTRUMENT DIAGNOSIS Procedure: PFT Administrative Closure: 10/14/2023 by: CLINICAL,DEVICE PROXY SERVICE CLINICAL,DEVICE PROXY SERVICE [facility] Oct 14, 2023 01:04 PM PULMONARY NOTE: LOCAL TITLE: PFT LAB COVID-19 SCREENING RUST STANDARD TITLE: PULMONARY NOTE DATE OF NOTE: OCT 14, 2023@13:04 ENTRY DATE: OCT 14, 2023@13:04:14 AUTHOR: BEATRIZ SWANN EXP COSIGNER: URGENCY: STATUS: COMPLETED 1) Have you experienced any of the symptoms of COVID-19 in past 48 hours? Fever or Chills: No Cough: No Sore Throat: No Shortness of breath or difficulty breathing (more than your usual baseline): No Fatigue: No Muscle or body aches: No Headache: No New loss of taste or smell: No Congestion or runny nose: No Nausea or vomiting: No Diarrhea: No 2) Are you currently isolating or quarantining because you tested positive for COVID-19 or are you worried you may be sick with COVID-19? No Comments: none /nataliia/ BEATRIZ SWANN Registered Respiratory Therapist Signed: 10/14/2023 13:05 BEATRIZ SWANN [facility]
--- OUTSIDE RECORDS SUMMARY | 2024-03-31 00:57 | XMS_ITS | Encounter Summary ---
Author Name [facility] [place] Address [address] [place] [address] Care Team Providers Care Assisted Living Care Manager Name Role Phone KODAK MORTON Primary [...] Member ID Insurance Provider's Telephone Number Policy Vicotria's Name Patient's Relationship to Policy [place] PREFERRED PROVIDER ORGANIZAT ION (PPO) BLUE CHOIC E PREFE RR Apr 13, 2020 [id number] [phone] BOOGIE BAILEY PATIENT [place] PREFERRED PROVIDER ORGANIZAT ION (PPO) BLUE CHOIC E PREFE RR Apr 13, 2020 [id number] [phone] STEPHANIE BAILEYON PATIENT [place] PREFERRED PROVIDER ORGANIZAT ION (PPO) BLUE CHOIC E PREFE RR Apr 13, 2020 [id number] [phone] BOOGIE BAILEY PATIENT [place] PREFERRED PROVIDER ORGANIZAT ION (PPO) BLUE CHOIC E PREFE RR Apr 13, 2020 [id number] [phone] BOOGIE BAILEY PATIENT PRIME THERAPEUTI CS RX PRESCRIPT ION BCBSI L T[place]ER Apr 13, 2020 BCBSIL [id number] [phone] BOOGIE BAILEY PATIENT [facility] [address] May 10, 2019 SELECT [id number] 22 BOOGIE BAILEY PATIENT Selected Encounter This section includes the information on record at [place] for the Encounter. Date/Time Encounter Type Encounter Description Reason Provider Source Oct 26, 2023 07:58 AM Outpatient Encounter PULMONARY/CHEST SCOTT GUAJARDO [facility] Encounter Template Text not used by CT Plan of Treatment: Future Appointments (+ 6 months) and Future Tests (+/- 45 days) The Plan of Treatment section includes future care activities for the patient from all [place] treatmentfacilities. This section includes future appointments and future orders which are active, pending or scheduled. Future Appointments This section includes appointments that were scheduled to occur 6 months from the date of the Encounter, up to a maximum of 20 appointments. The data comes from all [place] treatment facilities. Appointment Date/Time Appointment Type Appointme nt Facility Name Nov 18, 2023 10:00 AM AMBULATORY - MEDICINE [facility] Nov 25, 2023 10:00 AM AMBULATORY - MEDICINE [facility] Jan 09, 2024 11:29 AM AMBULATORY - MEDICINE [facility] Jan 09, 2024 03:00 PM AMBULATORY - NONE [facility] Jan 14, 2024 09:00 AM AMBULATORY - MEDICINE [facility] Jan 14, 2024 10:00 AM AMBULATORY - MEDICINE [facility] Jan 26, 2024 01:00 PM AMBULATORY - MEDICINE [facility] Jan 28, 2024 01:45 PM AMBULATORY - REHAB MEDICIN E [facility] Feb 02, 2024 02:00 PM AMBULATORY - PSYCHIATRY [facility] Feb 08, 2024 09:00 AM AMBULATORY - NEUROLOGY [facility] Feb 12, 2024 02:30 PM AMBULATORY - NONE [facility] Feb 17, 2024 01:00 PM AMBULATORY - MEDICINE [facility] Feb 25, 2024 09:30 AM AMBULATORY - MEDICINE [facility] Mar 05, 2024 08:43 AM AMBULATORY - MEDICINE [facility] Mar 16, 2024 10:15 AM AMBULATORY - SURGERY . Kelsie CARMEN [facility] Mar 21, 2024 12:14 PM AMBULATORY - MEDICINE [facility] Apr 01, 2024 10:00 AM AMBULATORY - PSYCHIATRY [facility] Lab Results: +/- 30 days of the encounter This section includes the Chemistry and Hematology Lab Results on record with CT for the patient. Radiology Reports and Pathology [...] Nov 25, 2023 10:43 AM Reporting Lab: [facility] [address] [facility] [phone] Performing Lab: [address] [address] CHOLESTEROL 150 mg/dL 0-200 TRIGLYCERIDE 184 mg/dL H 0-150 CALCULATED LDL 90 mg/dL HDL(New) 23 mg/dL L >40 Nov 25, 2023 11:00 AM [facility] COMPREHENSIVE METABOLIC PANEL Specimen Type: PLASMA Comment: No hemolysis noted. Ordering Provider: FRANSISCO MORTON Report Released Date/Time: Nov 25, 2023 10:43 AM Reporting Lab: [facility] [address] [facility] [address] Performing Lab: [address] [phone] CREATININE 0.95 mg/dL 0.7-1.3 UREA NITROGEN 10.5 [...] Nov 25, 2023 10:43 AM Reporting Lab: [facility] [address] [place] [phone] Performing Lab: [facility] [address] [place] [phone] HGA1C 5.7 4.0-6.0 Nov 25, 2023 11:00 AM [facility] CBC Specimen Type: BLOOD No comment entered. Ordering Provider: FRANSISCO MORTON Report Released Date/Time: Nov 25, 2023 10:43 AM Reporting Lab: [facility] [address] [place] [phone] Performing Lab: [facility] [address] [place] [phone] WBC 4.6 10*3/uL 3.6-11.2 RBC 5.54 10*6/uL [...] Nov 25, 2023 10:43 AM Reporting Lab: [facility] [address] [facility] [phone] Performing Lab: [facility] [address] [facility] [phone] VITAMIN D, 25-HYDROXY 37.8 ng/mL 30- Social History: Smoking Status (Most current) and Tobacco Use (All prior to encounter date) This section includes the most current, and the historical, smoking and tobacco- related health factors from the [place] facility where the Encounter took place. Current Smoking Status This section includes the most current smoking, or tobacco-related health factor, from the [place] facility where the Encounter took place. Date/Time Current Smoking Status Comment Nicolas allen Feb 26, 2021 03:59 PM VA-TOBACCO NEVER USED [facility] Encounter Notes: All associated encounter notes This section contains the clinical notes associated to the Encounter. Date/Time Encounter Note(s) Provider Source Oct 26, 2023 07:58 AM [facility] DIALOG NOTE: LOCAL TITLE: [facility] Projects[facility]ING STANDARD TITLE: [employer] DIALOG NOTE DATE OF NOTE: OCT 26, 2023@07:58 ENTRY DATE: OCT 26, 2023@07:58:16 AUTHOR: SCOTT GUAJARDO COSIGNER: URGENCY: STATUS: COMPLETED ------Original Message ------- Sent: 10/24/2023 10:58 AM ET From: JORDYN BAILEY To: [facility], PULMONARY , SPECIALTY MEDICINE @ Subject: Medication:Widely inhaler Hello I was seen on October 13 and was given a new inhaler called Wixela. I have been on it for 10 days and it's starting to give me a soar throat. I was wondering if I could get a phone consult from my doctor (I forgot her last name but her first name was Ashly) to speak about this inhaler. ------Original Message ------- Sent: 10/26/2023 08:58 AM ET From: SCOTT GUAJARDO To: JORDYN BAILEY Subject: Medication:Widely inhaler Morning, I will forward your message to Ashly FA[facility]CH[facility] and ask her to call you to discuss Wixela. Also I noticed you didn't make your follow-up appointment. Please call [phone] extension [phone] option 3. Your provider stated at your visit she would like to see you in 8 weeks. Thanks, Tete /nataliia/ SCOTT GUAJARDO MSN,RN REGISTERED NURSE Signed: 10/26/2023 07:58 Receipt Acknowledged By: 10/27/2023 07:37 /nataliia/ ASHLY NEGRETE PHYSICIAN AUDIO VISUAL SPECIALIST SCOTT GUAJARDO [facility]
--- OUTSIDE RECORDS SUMMARY | 2024-03-31 00:57 | XMS_ITS | Encounter Summary ---
Author Name [facility] [place] Address [address] [place] [address] Care Team Providers Care Granulating Blender Name Role Phone KODAK MORTON Primary Care [...] CHOIC E PREFE RR Apr 13, 2020 [id number] [phone] BOOGIE BAILEY ANDON PATIENT AN[employer]M [employer] [place] PREFERRED PROVIDER ORGANIZAT ION (PPO) BLUE CHOIC E PREFE RR Apr 13, 2020 [id number] [phone] BOOGIE BAILEY ANDON PATIENT AN[place] PREFERRED PROVIDER ORGANIZAT ION (PPO) BLUE CHOIC E PREFE RR Apr 13, 2020 [id number] [phone] BOOGIE BAILEY ANDCARLA PATIENT [place] PREFERRED PROVIDER ORGANIZAT ION (PPO) BLUE CHOIC E PREFE RR Apr 13, 2020 [id number] [phone] BOOGIE BAILEY PATIENT PRIME THERAPEUTI CS RX PRESCRIPT ION BCBSI L TAY[place]ER Apr 13, 2020 [id number] [phone] BOOGIE BAILEY PATIENT [facility] [address] [place] RE May 10, 2019 SELECT [id number] 22 BOOGIE BAILEY PATIENT Selected Encounter This section includes the information on record at [place] for the Encounter. Date/Time Encounter Type Encounter Description Reason Provider Source Nov 23, 2023 03:39 PM Outpatient Encounter PRIMARY CARE/MEDICINE NOELLE OWENS [place] Encounter Template Text not used by [place] Plan of Treatment: Future Appointments (+ 6 months) and Future Tests (+/- 45 days) The Plan of Treatment section includes future care activities for the patient from all [place] treatmentfacilities. This section includes future appointments and future orders which are active, pending or scheduled. Future Appointments This section includes appointments that were scheduled to occur 6 months from the date of the Encounter, up to a maximum of 20 appointments. The data comes from all [place] treatment facilities. Appointment Date/Time Appointment Type Appointme nt Facility Name Nov 25, 2023 10:00 AM AMBULATORY - MEDICINE [facility] Jan 09, 2024 11:29 AM AMBULATORY - MEDICINE [facility] Jan 09, 2024 03:00 PM AMBULATORY - NONE [facility] Jan 14, 2024 09:00 AM AMBULATORY - MEDICINE [facility] Jan 14, 2024 10:00 AM AMBULATORY - MEDICINE [facility] Jan 26, 2024 01:00 PM AMBULATORY - MEDICINE [facility] Jan 28, 2024 01:45 PM AMBULATORY - REHAB MEDICIN E [facility] Feb 02, 2024 02:00 PM AMBULATORY - PSYCHIATRY [facility] Feb 08, 2024 09:00 AM AMBULATORY - NEUROLOGY [facility] Feb 12, 2024 02:30 PM AMBULATORY - NONE [facility] Feb 17, 2024 01:00 PM AMBULATORY - MEDICINE [facility] Feb 25, 2024 09:30 AM AMBULATORY - MEDICINE [facility] Mar 05, 2024 08:43 AM AMBULATORY - MEDICINE [facility] Mar 16, 2024 10:15 AM AMBULATORY - SURGERY . L [facility] Mar 21, 2024 12:14 PM AMBULATORY - MEDICINE [facility] Apr 01, 2024 10:00 AM AMBULATORY - PSYCHIATRY [facility] Apr 28, 2024 03:00 PM AMBULATORY - MEDICINE [facility] May 05, 2024 11:30 AM AMBULATORY - MEDICINE [facility] Lab Results: +/- 30 days of the encounter This section includes the Chemistry and Hematology Lab Results on record with [place] for the patient. Radiology Reports and Pathology Reports are provided separately, in subsequent sections. Lab Results This section contains the Chemistry/Hematology Results that were resulted 30 days before or 30 daysafter the date of the Encounter. Date/Time Source Result Type Result - Unit Interpretation Reference Range Comment Nov 25, 2023 11:00 AM [facility] LIPID PANEL ([facility]) Specimen Type: PLASMA Comment: No hemolysis noted. Ordering Provider: FRANSISCO MORTON Report Released Date/Time: Nov 25, 2023 10:43 AM Reporting Lab: [facility] [address] [place] [phone] Performing Lab: [facility] [address] [place] [phone] CHOLESTEROL 150 mg/dL 0-200 TRIGLYCERIDE 184 mg/dL H 0-150 CALCULATED LDL 90 mg/dL HDL(New) 23 mg/dL L >40 Nov 25, 2023 11:00 AM [facility] COMPREHENSIVE METABOLIC PANEL Specimen Type: PLASMA Comment: No hemolysis noted. Ordering Provider: FRANSISCO MORTON Report Released Date/Time: Nov 25, 2023 10:43 AM Reporting Lab: [facility] [address] [place] [phone] Performing Lab: [facility] [address] [place] [phone] CREATININE 0.95 mg/dL 0.7-1.3 UREA NITROGEN 10.5 [...] 105.1 >60 Nov 25, 2023 11:00 AM [facility] HGA1C Specimen Type: BLOOD No comment entered. Ordering Provider: FRANSISCO MORTON Report Released Date/Time: Nov 25, 2023 10:43 AM Reporting Lab: [facility] [address] [place] [phone] Performing Lab: [address] [address] HGA1C 5.7 4.0-6.0 Nov 25, 2023 11:00 AM [facility] CBC Specimen Type: BLOOD No comment entered. Ordering Provider: FRANSISCO MORTON Report Released Date/Time: Nov 25, 2023 10:43 AM Reporting Lab: [facility] [address] [place] [phone] Performing Lab: [facility] [address] [place] [phone] WBC 4.6 10*3/uL 3.6-11.2 RBC 5.54 10*6/uL [...] 10*3/uL 0.00-0.20 Nov 25, 2023 11:00 AM [facility] VITAMIN D, 25-HYDROXY Specimen Type: SERUM No comment entered. Ordering Provider: FRANSISCO MORTON Report Released Date/Time: Nov 25, 2023 10:43 AM Reporting Lab: [facility] [address] [facility] [address] Performing Lab: [facility] [address] [facility] [phone] VITAMIN D, 25-HYDROXY 37.8 ng/mL 30-96 Social History: Smoking Status (Most current) and Tobacco Use (All prior to encounter date) This section includes the most current, and the historical, smoking and tobacco- related health factors from the [place] facility where the Encounter took place. Current Smoking Status This section includes the most current smoking, or tobacco-related health factor, from the [place] facility where the Encounter took place. Date/Time Current Smoking Status Comment Nicolas allen Feb 26, 2021 03:59 PM VA-TOBACCO NEVER USED [facility] Encounter Notes: All associated encounter notes This section contains the clinical notes associated to the Encounter. Date/Time Encounter Note(s) Provider Source Nov 23, 2023 03:39 PM PRIMARY CARE [employer] E MESSAGING: LOCAL TITLE: PRIMARY CARE SECURE MESSAGING STANDARD TITLE: PRIMARY CARE SECURE MESSAGING DATE OF NOTE: NOV 23, 2023@15:39 ENTRY DATE: NOV 23, 2023@15:39:56 AUTHOR: NOELLE OWENS EXP COSIGNER: URGENCY: STATUS: COMPLETED ------Original Message -------- Sent: 11/23/2023 04:38 PM ET From: NOELLE OWENS To: JORDYN BAILEY Subject: General:General Inquiry Good Afternoon, Your consult for marriage counseling has been placed. Noelle Owens BSN, store lead /es/ NOELLE OWENS BSN RN REGISTERED NURSE Signed: 11/23/2023 15:39 NOELLE OWENS [facility]
--- OUTSIDE RECORDS SUMMARY | 2024-03-31 00:57 | XMS_ITS | Encounter Summary ---
Author Name [facility] [place] Address [address] [place] [address] Care Team Providers Care Inspector Technician Name Role Phone KODAK MORTON Primary Care [...] CHOIC E PREFE RR Apr 13, 2020 [id number] [phone] BOOGIE PINEDA ANDON PATIENT ANTHEM [employer] [place] PREFERRED PROVIDER ORGANIZAT ION (PPO) BLUE CHOIC E PREFE RR Apr 13, 2020 [id number] [phone] LYNN,BOOGIE ANDON PATIENT ANTHEM [employer] [place] PREFERRED PROVIDER ORGANIZAT ION (PPO) BLUE CHOIC E PREFE RR Apr 13, 2020 [id number] [phone] BOOGIE PINEDA ANDON PATIENT [employer] [place] PREFERRED PROVIDER ORGANIZAT ION (PPO) BLUE CHOIC E PREFE RR Apr 13, 2020 [id number] [phone] BOOGIE PINEDA PATIENT PRIME THERAPEUTI CS RX PRESCRIPT ION BCBSI L [place] Apr 13, 2020 BCBSIL [id number] [phone] BOOGIE PINEDA PATIENT [facility] 2018 TRICA RE May 10, 2019 SELECT [id number] 22 BOOGIE PINEDA PATIENT Selected Encounter This section includes the information on record at [place] for the Encounter. Date/Time Encounter Type Encounter Description Reason Pro vider Source Oct 20, 2023 09:14 AM Outpatient Encounter ADMIN PAT ACTIVTIES (MASNONCT) IHE Encounter Template Text not used by [place] Plan of Treatment: Future Appointments (+ 6 months) and Future Tests (+/- 45 days) The Plan of Treatment section includes future care activities for the patient from all [place] treatmentfacilities. This section includes future appointments and future orders which are active, pending or scheduled. Future Appointments This section includes appointments that were scheduled to occur 6 months from the date of the Encounter, up to a maximum of 20 appointments. The data comes from all [place] treatment facilities. Appointment Date/Time Appointment Type Appointme nt Facility Name Nov 18, 2023 10:00 AM AMBULATORY - MEDICINE [facility] Nov 25, 2023 10:00 AM AMBULATORY - MEDICINE [facility] Jan 09, 2024 11:29 AM AM[facility]ULATORY - MEDICINE [facility] Jan 09, 2024 03:00 PM AMBULATORY - NONE [facility] Jan 14, 2024 09:00 AM AMBULATORY - MEDICINE [facility] Jan 14, 2024 10:00 AM AMBULATORY - MEDICINE [facility] Jan 26, 2024 01:00 PM AMBULATORY - MEDICINE [facility] Jan 28, 2024 01:45 PM AMBULATORY - REHAB MEDICIN E [facility] Feb 02, 2024 02:00 PM AMBULATORY - PSYCHIATRY [facility] Feb 08, 2024 09:00 AM AMBULATORY - NEUROLOGY [facility] Feb 12, 2024 02:30 PM AMBULATORY - NONE [facility] Feb 17, 2024 01:00 PM AMBULATORY - MEDICINE [facility] Feb 25, 2024 09:30 AM AMBULATORY - MEDICINE [facility] Mar 05, 2024 08:43 AM AMBULATORY - MEDICINE [facility] Mar 16, 2024 10:15 AM AMBULATORY - SURGERY [facility] Mar 21, 2024 12:14 PM AMBULATORY - MEDICINE [facility] Apr 01, 2024 10:00 AM [facility] Social History: Smoking Status (Most current) and Tobacco Use (All prior to encounter date) This section includes the most current, and the historical, smoking and tobacco- related health factors from the [place] facility where the Encounter took place. Current Smoking Status This section includes the most current smoking, or tobacco-related health factor, from the [place] facility where the Encounter took place. Date/Time Current Smoking Status Comment Nicolas allen Feb 26, 2021 03:59 PM VA-TOBACCO NEVER USED [facility] Encounter Notes: All associated encounter notes This section contains the clinical notes associated to the Encounter. Date/Time Encounter Note(s) Provider Source Oct 20, 2023 09:15 AM PHYSICIAN LETTERS: LOCAL TITLE: NO CONTACT LETTER ST STANDARD TITLE: PHYSICIAN LETTERS DATE OF NOTE: OCT 20, 2023@09:15 ENTRY DATE: OCT 20, 2023@09:15:41 AUTHOR: ARIELLE GILESIGNER: URGENCY: STATUS: COMPLETED [facility] [address] [place] [address] OCT 20, 2023 JORDYN PINEDA [address] [place], [place] [address] Dear Jordyn iPneda, Thank you for choosing the [facility] as your primary choice for health care. As a partner in your health care, we are attempting to contact you because we have been unsuccessful in reaching you by phone to schedule your clinic appointment. Please call us at [phone], extension [phone] to speak to us regarding making an [facility]. Your good health is [...] inquire about scheduling. Sincerely, ARIELLE GILES ADVANCED ACCOUNT GROUP SUPERVISOR JORDYN PINEDA [facility] Oct 20, 2023 09:14 AM ADMINISTRATIVE NOT E: LOCAL TITLE: SCHEDULING NOTE STL STANDARD TITLE: ADMINISTRATIVE NOTE DATE OF NOTE: OCT 20, 2023@09:14 ENTRY DATE: OCT 20, 2023@09:14:18 AUTHOR: ARIELLE GILES EXP COSIGNER: URGENCY: STATUS: COMPLETED Minimum Scheduling attempts to contact the have been made. RTC/Appt/Consult request will be discontinued after 14 days. Clinic: [facility] [place]: Dec First Call to - unsuccessful scheduling: Oct Unable to contact [facility], letter sent: Oct Discontinue date (14 calendar days after letter is mailed): Oct Additional comments: Left a voicemail for the vet to schedule his Follow up RTC Appt. ADDITIONAL RESULTS FROM SCHEDULING ATTEMPTS: /nataliia/ ARIELLE GILES ADVANCED ACCOUNT GROUP SUPERVISOR Signed: 10/20/2023 09:15 ARIELLE GILES [facility]
--- OUTSIDE RECORDS SUMMARY | 2024-03-31 00:58 | XMS_ITS | Encounter Summary ---
Author Name [facility] [place] Address [address] [place] [address] Care Team Providers Care Retail Visual Merchandiser Name Role Phone KODAK MORTON Primary Care [...] CHOIC E PREFE RR Apr 13, 2020 [id number] [phone] BOOGIE BAILEY PATIENT [place] PREFERRED PROVIDER ORGANIZAT ION (PPO) BLUE CHOIC E PREFE RR Apr 13, 2020 [id number] [phone] STEPHANIE BAILEYON PATIENT ANTHE[place] [employer] PREFERRED PROVIDER ORGANIZAT ION (PPO) BLUE CHOIC E PREFE RR Apr 13, 2020 [id number] [phone] BOOGIE BAILEY PATIENT [place] PREFERRED PROVIDER ORGANIZAT ION (PPO) BLUE CHOIC E PREFE RR Apr 13, 2020 [id number] [phone] BOOGIE BAILEY PATIENT PRIME THERAPEUTI CS RX PRESCRIPT ION BCBSI L [place] Apr 13, 2020 BCBSIL [id number] [phone] BOOGIE BAILEY PATIENT [facility] 2018 TRICA RE May 10, 2019 SELECT [id number] 22 BOOGIE BAILEY PATIENT Selected Encounter This section includes the information on record at [place] for the Encounter. Date/Time Encounter Type Encounter Description Reason Provider Source August 12, 2023 02:57 PM Outpatient Encounter PULMONARY/CHEST ABHISHEK DIMAS IHValentin Encounter Template Text not used by [place] Plan of Treatment: Future Appointments (+ 6 months) and Future Tests (+/- 45 days) The Plan of Treatment section includes future care activities for the patient from all [place] treatmentfacilities. This section includes future appointments and future orders which are active, pending or scheduled. Future Appointments This section includes appointments that were scheduled to occur 6 months from the date of the Encounter, up to a maximum of 20 appointments. The data comes from all [place] treatment facilities. Appointment Date/Time Appointment Type Appointme nt Facility Name August 14, 2023 10:30 AM AMBULATORY - MEDICINE [facility] August 17, 2023 09:15 AM AMBULATORY - MEDICINE [facility] Oct 14, 2023 09:15 AM AMBULATORY - MEDICINE [facility] Oct 14, 2023 10:00 AM AMBULATORY - MEDICINE [facility] Nov 18, 2023 10:00 AM AMBULATORY - MEDICINE [facility] Nov 25, 2023 10:00 AM AMBULATORY - MEDICINE [facility] Jan 09, 2024 11:29 AM AMBULATORY - MEDICINE [facility] Jan 09, 2024 03:00 PM AMBULATORY - NONE [facility] Jan 14, 2024 09:00 AM AMBULATORY - MEDICINE [facility] Jan 14, 2024 10:00 AM AMBULATORY - MEDICINE [facility] Jan 26, 2024 01:00 PM AMBULATORY - MEDICINE [facility] Jan 28, 2024 01:45 PM AMBULATORY - REHAB MEDICIN E [facility] Feb 02, 2024 02:00 PM AMBULATORY - PSYCHIATRY [facility] Feb 08, 2024 09:00 AM AMBULATORY - NEUROLOGY [facility] Feb 12, 2024 02:30 PM AMBULATORY - NONE [facility] Social History: Smoking Status (Most current) and Tobacco Use (All prior to encounter date) This section includes the most current, and the historical, smoking and tobacco- related health factors from the [place] facility where the Encounter took place. Current Smoking Status This section includes the most current smoking, or tobacco-related health factor, from the [place] facility where the Encounter took place. Date/Time Current Smoking Status Comment Facil ity Feb 26, 2021 03:59 PM VA-TOBACCO NEVER USED [facility] Encounter Notes: All associated encounter notes This section contains the clinical notes associated to the Encounter. Date/Time Encounter Note(s) Provider Source August 12, 2023 02:57 PM [facility] DIALOG NOTE: LOCAL TITLE: [employer] STANDARD TITLE: [employer] DIALOG NOTE DATE OF NOTE: AUGUST 12, 2023@14:57 ENTRY DATE: AUGUST 12, 2023@14:57:04 AUTHOR: ABHISHEK DIMAS EXP COSIGNER: URGENCY: STATUS: COMPLETED ------Original Message ------ Sent: 08/12/2023 12:03 PM ET From: JORDYN BAILEY To: [facility], PULMONARY , SPECIALTY MEDICINE @ Subject: Appointment:Upcoming appointment Wilder, I have an appointment this ThursdayAugust 16 @ 0915, i need to get it reschedule if i may? ------Original Message ------ Sent: 08/12/2023 03:56 PM ET From: ABHISHEK DIMAS To: JORDYN BAILEY Subject: Appointment:Upcoming appointment Yes, I will alert our outsole scheduler. /nataliia/ ABHISHEK DIMAS RN, BSN REGISTERED NURSE Signed: 08/12/2023 14:57 Receipt Acknowledged By: 08/18/2023 14:35 /nataliia/ RUY YANG Advanced Medication Manager ABHISHEK DIMAS [facility]
--- OUTSIDE RECORDS SUMMARY | 2024-03-31 00:58 | XMS_ITS | Encounter Summary ---
Author Name [facility] [place] Address [address] [place] [address] Care Team Providers Care Fourth Officer Name Role Phone KODAK MORTON Primary Care [...] CHOIC E PREFE RR Apr 13, 2020 [id number] [phone] BOOGIE BAILEY ANDON PATIENT ANTHEM [employer] PREFERRED PROVIDER ORGANIZAT ION (PPO) BLUE CHOIC E PREFE RR Apr 13, 2020 [id number] [phone] LYNN,BOOGIE ANDON PATIENT ANTHEM [employer] [place] PREFERRED PROVIDER ORGANIZAT ION (PPO) BLUE CHOIC E PREFE RR Apr 13, 2020 [id number] [phone] BOOGIE BAILEY ANDON PATIENT [place] PREFERRED PROVIDER ORGANIZAT ION (PPO) BLUE CHOIC E PREFE RR Apr 13, 2020 [id number] [phone] BOOGIE BAILEY PATIENT PRIME THERAPEUTI CS RX PRESCRIPT ION BCBSI L [place] Apr 13, 2020 BCBSIL [id number] [phone] BOOGIE BAILEY PATIENT [facility] 2018 TRICA RE May 10, 2019 SELECT [id number] 22 BOOGIE BAILEY PATIENT Selected Encounter This section includes the information on record at [place] for the Encounter. Date/Time Encounter Type Encounter Description Reason Pro vider Source Apr 17, 2023 01:47 PM Outpatient Encounter ADMIN PAT ACTIVTIES (MASNONCT) IHE Encounter Template Text not used by [place] Plan of Treatment: Future Appointments (+ 6 months) and Future Tests (+/- 45 days) The Plan of Treatment section includes future care activities for the patient from all [place] treatmentfacilities. This section includes future appointments and future orders which are active, pending or scheduled. Future Appointments This section includes appointments that were scheduled to occur 6 months from the date of the Encounter, up to a maximum of 20 appointments. The data comes from all [facility]. Appointment Date/Time Appointment Type Appointme nt Facility Name May 20, 2023 09:00 AM AMBULATORY - MEDICINE [facility] Jun 03, 2023 08:45 AM AMBULATORY - MEDICINE [facility] August 14, 2023 10:30 AM AMBULATORY MEDICINE [facility] August 17, 2023 09:15 AM AMBULATORY - MEDICINE [facility] Oct 14, 2023 09:15 AM AMBULATORY - MEDICINE [facility] Oct 14, 2023 10:00 AM AMBULATORY - MEDICINE [facility] Active, Pending, and Scheduled Orders This section includes a listing of several types of active, pending, and scheduled orders, including clinic medications orders, diagnostic test orders, procedure orders and consult orders; where the start date of the order is 45 days before the date of the Encounter or 45 days after the date of theEncounter. The data comes from all [facility]. Test Date/Time Test Type Test Details Facility Name Apr 02, 2023 12:00 AM Laboratory - Chemi stry Order URINALYSIS (STL) URINE SP [facility] Social History: Smoking Status (Most current) and Tobacco Use (All prior to encounter date) This section includes the most current, and the historical, smoking and tobacco- related health factors from the [place] facility where the Encounter took place. Current Smoking Status This section includes the most current smoking, or tobacco-related health factor, from the [place] facility where the Encounter took place. Date/Time Current Smoking Status Comment Facil ity Feb 26, 2021 03:59 PM VA-TOBACCO NEVER USED [facility] Encounter Notes: All associated encounter notes This section contains the clinical notes associated to the Encounter. Date/Time Encounter Note(s) Provider Source Apr 17, 2023 01:47 PM ADMINISTRATIVE NOT E: LOCAL TITLE: ADMINISTRATIVE STL STANDARD TITLE: ADMINISTRATIVE NOTE DATE OF NOTE: APR 17, 2023@13:47 ENTRY DATE: APR 17, 2023@13:47:19 AUTHOR: SAVANAH REEVES EXP COSIGNER: URGENCY: STATUS: COMPLETED FAX RECEIVED FROM [facility] AND PLACED INTO PCP FOLDER /nataliia/ SAVANAH REEVES ADVANCED BATTERY ASSEMBLER DRY CELL Signed: 04/17/2023 13:47 SAVANAH REEVES [facility]
--- OUTSIDE RECORDS SUMMARY | 2024-03-31 00:58 | XMS_ITS | Encounter Summary ---
Author Name Department of [place] Organization [place] Address [address] [place] [address] Care Team Providers Care Antisqueak Chalker Name Role Phone KODAK MORTON Primary Care [...] CHOIC E PREFE RR Apr 13, 2020 [id number] [phone] BOOGIE BAILEY ANDON PATIENT ANTHEM [place] PREFERRED PROVIDER ORGANIZAT ION (PPO) BLUE CHOIC E PREFE RR Apr 13, 2020 [id number] [phone] LYNN,BOOGIE ANDON PATIENT ANTHEM [place] PREFERRED PROVIDER ORGANIZAT ION (PPO) BLUE CHOIC E PREFE RR Apr 13, 2020 [id number] [phone] BOOGIE BAILEY ANDON PATIENT [place] PREFERRED PROVIDER ORGANIZAT ION (PPO) BLUE CHOIC E PREFE RR Apr 13, 2020 [id number] BOOGIE BAILEY PATIENT PRIME THERAPEUTI CS RX PRESCRIPT ION BCBSI L [place] Apr 13, 2020 BCBSIL [id number] [phone] BOOGIE BAILEY PATIENT [facility] 2018 TRICA RE May 10, 2019 [facility] [id number] 22 BOOGIE BAILEY PATIENT Selected Encounter This section includes the information on record at [place] for the Encounter. Date/Time Encounter Type Encounter Description Reason Pro vider Source Jun 03, 2023 10:30 AM Outpatient Encounter ADMIN PAT ACTIVTIES (MASNONCT) IHE Encounter Template Text not used by [place] Plan of Treatment: Future Appointments (+ 6 months) and Future Tests (+/- 45 days) The Plan of Treatment section includes future care activities for the patient from all [place] treatmentfacilities. This section includes future appointments and future orders which are active, pending or scheduled. Future Appointments This section includes appointments that were scheduled to occur 6 months from the date of the Encounter, up to a maximum of 20 appointments. The data comes from all [place] treatment facilities. Appointment Date/Time Appointment Type Appointme nt Facility Name August 14, 2023 10:[address] [facility] August 17, 2023 09:15 AM AMBULATORY - MEDICINE [facility] Oct 14, 2023 09:15 AM AMBULATORY MEDICINE [facility] Oct 14, 2023 10:00 AM AMBULATORY - MEDICINE [facility] Nov 18, 2023 10:00 AM AMBULATORY - MEDICINE [facility] Nov 25, 2023 10:[address] [facility] Lab Results: +/- 30 days of the encounter This section includes the Chemistry and Hematology Lab Results on record with [place] for the patient. Radiology Reports and Pathology Reports are provided separately, in subsequent sections. Lab Results This section contains the Chemistry/Hematology Results that were resulted 30 days before or 30 daysafter the date of the Encounter. Date/Time Source Result Type Result - Unit Interpretation Reference Range Comment May 20, 2023 10:15 AM [facility] LIPID PANEL (STL) Specimen Type: PLASMA Comment: No hemolysis noted. Ordering Provider: FRANSISCO MORTON Report Released Date/Time: May 20, 2023 09:35 AM Reporting Lab: [facility] [address] [facility] [address] Performing Lab: [facility] [address] [place] [phone] CHOLESTEROL 165 mg/dL 0-200 TRIGLYCERIDE 222 mg/dL H 0-150 CALCULATED LDL 97 mg/dL HDL(New) 24 mg/dL L >40 May 20, 2023 10:15 AM [facility] HGA1C Specimen Type: BLOOD No comment entered. Ordering Provider: FRANSISCO MORTON Report Released Date/Time: May 20, 2023 09:35 AM Reporting Lab: [facility] [address] [place] [phone] Performing Lab: [address] [address] HGA1C 5.6 4.0-6.0 May 20, 2023 10:15 AM [facility] COMPREHENSIVE METABOLIC PANEL Specimen Type: PLASMA Comment: No hemolysis noted. Ordering Provider: FRANSISCO MORTON Report Released Date/Time: May 20, 2023 09:35 AM Reporting Lab: [facility] [address] [place] [phone] Performing Lab: [address] [address] CREATININE 0.91 mg/dL 0.7-1.3 UREA NITROGEN 11.7 mg/dL 9.0-25.0 GLUCOSE 97 mg/dL 72-99 SODIUM 138 meq/L 136-145 POTASSIUM 4.2 meq/L 3.5-5 CHLORIDE 106 meq/L 98-107 CARBON DIOXIDE 26 meq/L 22-31 CALCIUM 9.5 mg/dL 8.4-10.4 PROTEIN 8.7 g/dL H 6-8.6 ALBUMIN 4.4 g/dL 3.4-5 TOTAL BILIRUBIN 0.7 mg/dL 0.2-1.2 ALKALINE PHOSPHATASE 70 U/L 40-150 AST/SGOT 35 U/L H 5-34 ALT/SGPT 67 U/L H 8-40 EGFR (CKD-EPI 2020) 110.6 >60 May 20, 2023 10:15 AM [facility] CBC Specimen Type: BLOOD No comment entered. Ordering Provider: FRANSISCO MORTON Report Released Date/Time: May 20, 2023 09:35 AM Reporting Lab: [facility] [address] [facility] [address] Performing Lab: [facility] [address] [facility] [address] WBC 4.8 10*3/uL 3.6-11.2 RBC 4.85 10*6/uL 4.10-5.70 HGB 13.9 g/dL 13.1-16.8 HCT 40.2 38.2-48.4 MCV 82.9 fL 80.0-100.0 MCH 28.7 pg 27.0-34.0 MCHC 34.6 g/dL 33.0-36.0 PLT 190 10*3/uL 150-400 MPV 10.2 fL 7.5-11.2 RDW 13.5 11.8-15.1 LYMPHOCYTES, AUTO % 27 MONOCYTES, AUTO % 14 NEUTROPHILS, AUTO % 54 EOSINOPHILS, AUTO % 5 BASOPHILS, AUTO % 0 LYMPHOCYTES, ABSOLUTE 1.30 10*3/uL 0.77-4.50 MONOCYTES, ABSOLUTE 0.66 10*3/uL 0.19-0.80 NEUTROPHILS, ABSOLUTE 2.58 10*3/uL 2.10-8.00 EOSINOPHILS, ABSOLUTE 0.22 10*3/uL 0.00-0.60 BASOPHILS, ABSOLUTE 0.02 10*3/uL 0.00-0.20 Social History: Smoking Status (Most current) and Tobacco Use (All prior to encounter date) This section includes the most current, and the historical, smoking and tobacco- related health factors from the [place] facility where the Encounter took place. Current Smoking Status This section includes the most current smoking, or tobacco-related health factor, from the [place] facility where the Encounter took place. Date/Time Current Smoking Status Comment Facil ity Feb 26, 2021 03:59 PM VA-TOBACCO NEVER USED [facility] Radiology Reports: +/- 30 days of the encounter Radiology Reports For cases when an order for radiology services may have been completed prior to the date of the Encounter, the report list includes the Radiology Reports that were completed up to 30 days before dateof the Encounter. For cases when an order for radiology services may have been completed after the date of the Encounter, the report list also includes the Radiology Reports that were completed up to30 days after date of the Encounter. The data comes from all [place] treatment facilities. Date/Time Radiology Report Provider Source May 20, 2023 09:50 AM CHEST X-RAY, 2 VIE WS: JORDYN BAILEY [id number] M Exm Date: MAY 20, 2023@09:50 Req Phys: KODAK MORTON Pat Loc: [facility] PACT B5 PCP (Req'g Img Loc: -MAIN RADIOLOGY SUITE Service: Unknown (Case [id number] COMPLETE) CHEST X-RAY, 2 VIEWS (RAD Detailed) CPT:18877 Proc Modifiers : AP & LAT Reason for Study: PT WITH KHADRA base lien chest x-ray Clinical History: 38 yrs old male with obesity and KHADRA need base line Chest X-ray Report Status: Verified Date Reported: MAY 20, 2023 Date Verified: MAY 20, 2023 Cupola Mechanic E-Sig:/NATALIIA/GRACE ORDONEZ Report: CASE [id number]. Chest, PA and lateral views. COMPARISON: 05/28/2022 FINDINGS: Lungs: The lungs are clear of airspace opacity. Mediastinum/Ernestina: The cardiomediastinal silhouette and pulmonary vascularity appear normal. Pleura: No pleural effusion or pneumothorax. Impression: No acute cardiopulmonary process. Primary Interpreting Staff: GRACE ORDONEZ MD (Cupola Mechanic) /GRACE YEPEZ [facility] Encounter Notes: All associated encounter notes This section contains the clinical notes associated to the Encounter. Date/Time Encounter Note(s) Provider Source Jun 03, 2023 10:30 AM ADMINISTRATIVE NOT E: LOCAL TITLE: ADMINISTRATIVE STL STANDARD TITLE: ADMINISTRATIVE NOTE DATE OF NOTE: JUN 03, 2023@10:30 ENTRY DATE: JUN 03, 2023@10:30:21 AUTHOR: ISMAEL CRUZ COSIGNER: URGENCY: STATUS: COMPLETED PATIENT HAD PHONE APPT WITH DR. MORTON BUT COULD BARELY HEAR HIM ON PHONE. PATIENT LEFT ALTERNATE NUMBER WORK PHONE [phone]. 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 /nataliia/ ISMAEL CRUZ ADVANCED SEED SALES MANAGER Signed: 06/03/2023 10:32 Receipt Acknowledged By: 06/04/2023 09:47 /nataliia/ NOELLE MAGALLANESN RN REGISTERED NURSE 06/03/2023 15:54 /nataliia/ Kodak Morton MD Staff Physician ISMAEL CRUZ [facility]
--- OUTSIDE RECORDS SUMMARY | 2024-03-31 00:58 | XMS_ITS | Encounter Summary ---
Author Name [facility] [place] Address [address] [place] [address] Care Team Providers Care Pipe Organ Installer Name Role Phone KODAK MORTON Primary Care [...] CHOIC E PREFE RR Apr 13, 2020 [id number] [phone] BOOGIE BAILEY ANDON PATIENT ANTHE[place] PREFERRED PROVIDER ORGANIZAT ION (PPO) BLUE CHOIC E PREFE RR Apr 13, 2020 [id number] [phone] LYNN,BOOGIE ANDON PATIENT ANTHEM [place] PREFERRED PROVIDER ORGANIZAT ION (PPO) BLUE CHOIC E PREFE RR Apr 13, 2020 [id number] [phone] BOOGIE BAILEY ANDON PATIENT [employer] PREFERRED PROVIDER ORGANIZAT ION (PPO) BLUE CHOIC E PREFE RR Apr 13, 2020 [id number] [phone] BOOGIE BAILEY PATIENT PRIME THERAPEUTI CS RX PRESCRIPT ION BCBSI L [place] Apr 13, 2020 BCBSIL [id number] [phone] BOOGIE BAILEY PATIENT [facility] 2018 [place]ICA RE May 10, 2019 SELECT [id number] 22 BOOGIE BAILEY PATIENT Selected Encounter This section includes the information on [place] at [place] for the Encounter. Date/Time Encounter Type Encounter Description Reason Provider Source Apr 17, 2023 10:02 AM QNHP OL DIG ASSMT&MGMT 5-10 CLINICAL PHARMACY ICD-10-CM U07.1 COVID-19 YNES RAMIREZ [facility] Encounter Template Text not used by [place] Assessments - Encounter Diagnoses This section includes the primary and secondary diagnoses documented for the Encounter. Date/Time Primary/Secondary Diagnosis Diagnosis Name Provider Source Apr 17, 2023 10:09 AM PRIMARY COVID-YNES ALAS [facility] Plan of Treatment: Future Appointments [...] 20, 2023 09:00 AM AMBULATORY - MEDICINE [facility] Jun 03, 2023 08:45 AM AMBULATORY - MEDICINE [facility] August 14, 2023 10:30 AM AMBULATORY - MEDICINE [facility] August 17, 2023 09:15 AM AMBULATORY - MEDICINE [facility] Oct 14, 2023 09:15 AM AMBULATORY - MEDICINE [facility] Oct 14, 2023 10:00 AM AMBULATORY MEDICINE [facility] Active, Pending, and Scheduled Orders This section includes a listing of several types of active, pending, and scheduled orders, including clinic medications orders, diagnostic test orders, procedure orders and consult orders; where the start date of the order is 45 days before the date of the Encounter or 45 days after the date of theEncounter. The data comes from all [place] treatment facilities. Test Date/Time Test Type Test Details Facility Name Apr 02, 2023 12:00 AM Laboratory - Chemi stry Order URINALYSIS (STL) URINE SP [facility] Social History: Smoking Status (Most [...] VA-TOBACCO NEVER USED [facility] Encounter Notes: All associated encounter notes This section contains the clinical notes associated to the Encounter. Date/Time Encounter Note(s) Provider Source Apr 17, 2023 10:02 AM PHARMACY CONSULT: LOCAL TITLE: PHARMACY PRIOR APPROVAL CONSULT STL STANDARD TITLE: PHARMACY CONSULT DATE OF NOTE: APR 17, 2023@10:02 ENTRY DATE: APR 17, 2023@10:02:20 AUTHOR: YNES RAMIREZ EXP COSIGNER: URGENCY: STATUS: COMPLETED The medical record has been reviewed with regard to this prior authorization drug request. Medication requested: GOV-PAXLOVID [id number] TAB PKT 3 Medication indication: COVID-19 Medication requested: Medication: Paxlovid Dosage: 100mg Si tab orally per dose pack Qty: 1 dose pack Refills: 0 Comments: Prescribed paxlovid 300mg (150mg x2)-100mg tablets in dose pack: take 1 (oral) as directed on dose pack; total qty: 1, no refills, allow subsitutions Medical history relevant to this request: Patient is a 38yo who presented for Paxlovid prescribed at an urgent care after 2 positive home tests. Patient's symptoms began 3 days ago. Clinical Pharmacy was notified patient currently meets prioritization for treatment as reviewed by [facility]. Q1: (x) Yes () No The patient has a current diagnosis of mild-moderate COVID-19 and is within 5 days of symptom onset. Q2: (x) Yes () No The patient has at least one high-risk criteria for progression to severe disease, as defined by the CDC (https://www.cdc.gov/coronav irus/2019-ncov/ofay-iwxrr-dj ecautions/people- nbfg-vnbgybt-gsvikokluz.html ) Q3: (x) Yes () No The patient does not have severe renal impairment (eGFR < 30 mL/min) or severe hepatic impairment (Child-Webber Class C) Q4: (x) Yes () No If the patient has moderate renal impairment (eGFR = 30 to < 60 mL/min), the dose has been adjusted to nirmatrelvir 150mg with ritonavir 100mg twice daily for 5 days (if eGFR is > 60 mL/min, no dose adjustment is needed and can answer YES). Additionally, I confirm that per FDA guidance, if standard-dose Paxlovid package is used that (1) there is no renal dose paxlovid package available and (2) any unused tablets of Nirmatrelvir have been or soon will be discarded per local policy and NOT reused. CREATININE 1.00 mg/dL 05/28/2022 11:40 EGFR (CKD-EPI 2020) 99.4 05/28/2022 11:40 Q5: (x) Yes () No The patient is not receiving any contraindicated concomitant drugs (strong CYP3A inducers or drugs highly dependent on CYP3A for clearance and for which elevated concentrations are associated with serious and/or life-threatening reactions). If the contraindicated medication has been appropriately managed then Yes can be answered for this question. An example of this would be if a CYP3A substrate drug is held while patient is to take Paxlovid. Note: holding therapy would NOT be appropriate for CYP3A inducers due to inducer affinity. See EUA documentation for full list of interacting drugs and [facility] Clinical FAQs for more information on appropriately managing drug interactions. Q6: (x) Yes () No The patient does not have a history of clinically significant hypersensitivity reactions (e.g. toxic epidermal necrolysis or Mace- Fabrizio syndrome) to nirmatrelvir, ritonavir or any other components of the product Q7: (x) Yes () No The patient has been advised to notify the provider if any NIDA occurs AND provider(s) are aware of requirement that ALL adverse event(s) & medication errors (along with any intervention used to treat the event) MUST be recorded per local policy and ALSO placed in [place] ADERS (with selection for MedWatch reporting) within 7 calendar days of notification of the event. Patient meets criteria for use Approved for paxlovid 300mg/100mg PO q12h x 5 days []MAIL [x]MERCURY WASHER - processed for window The request is approved - No formulary-preferred alternative TIME REVIEWING CHART:8. (minutes) /nataliia/ Ynes Ramirez PharmD Clinical Senior Accountant Signed: 04/17/2023 10:09 YNES RAMIREZ [facility]
--- OUTSIDE RECORDS SUMMARY | 2024-03-31 00:58 | XMS_ITS | Encounter Summary ---
Author Name [facility] [place] Organization [facility] [place] Address [address] [place] [address] Care Team Providers Care Corporate Relations Director Name Role Phone KODAK MORTON Primary Care [...] CHOIC E PREFE RR Apr 13, 2020 [id number] [phone] BOOGIE BAILEY PATIENT [place] PREFERRED PROVIDER ORGANIZAT ION (PPO) BLUE CHOIC E PREFE RR Apr 13, 2020 [id number] [phone] STEPHANIE BAILEYON PATIENT [place] PREFERRED PROVIDER ORGANIZAT ION (PPO) BLUE CHOIC E PREFE RR Apr 13, 2020 [id number] [phone] BOOGIE BAILEY PATIENT [place] PREFERRED PROVIDER ORGANIZAT ION (PPO) BLUE CHOIC E PREFE RR Apr 13, 2020 [id number] [phone] BOOGIE BAILEY PATIENT PRIME THERAPEUTI CS RX PRESCRIPT ION BCBSI L [place] Apr 13, 2020 BCBSIL [id number] [phone] BOOGIE BAILEY PATIENT [facility] 2018 [place] May 10, 2019 SELECT [id number] 22 BOOGIE BAILEY PATIENT Selected Encounter This section includes the information on record at [place] for the Encounter. Date/Time Encounter Type Encounter Description Reason Pro vider Source August 13, 2023 09:37 AM Outpatient Encounter TELEPHONE/ANCILLARY IHE Encounter Template Text not used by [...] 14, 2023 10:30 AM AMBULATORY - MEDICINE [facility] August 17, 2023 09:15 AM AMBULATORY - MEDICINE [facility] Oct 14, 2023 09:15 AM AMBULATORY - MEDICINE [facility] Oct 14, 2023 10:00 AM AMBULATORY - MEDICINE [facility] Nov 18, 2023 10:00 AM AMBULATORY - MEDICINE [facility] Nov 25, 2023 10:00 AM AMBULATORY - MEDICINE [facility] Jan 09, 2024 11:29 AM AMBULATORY - MEDICINE [facility] Jan 09, 2024 03:00 PM AMBULATORY - NONE [facility] Jan 14, 2024 09:00 AM AMBULATORY - MEDICINE [facility] Jan 14, 2024 10:00 AM AMBULATORY - MEDICINE [facility] Jan 26, 2024 01:00 PM AMBULATORY - MEDICINE [facility] Jan 28, 2024 01:45 PM AMBULATORY - REHAB [facility]ICIN [facility] Feb 02, 2024 02:00 PM AMBULATORY - PSYCHIATRY [facility] Feb 08, 2024 09:00 AM AMBULATORY - NEUROLOGY [facility] Feb 12, 2024 02:30 PM AMBULATORY - NONE . HORTENCIA Eli [facility] Social History: Smoking Status (Most [...] 03:59 PM VA-TOBACCO NEVER USED [facility] Encounter Notes: All associated encounter notes This section contains the clinical notes associated to the Encounter. Date/Time Encounter Note(s) Provider Source August 13, 2023 09:37 AM TELEPHONE ENCOUNTE R NOTE: LOCAL TITLE: PRIMARY CARE TELEPHONE CONTACT [facility] STANDARD TITLE: TELEPHONE ENCOUNTER NOTE DATE OF NOTE: AUGUST 13, 2023@09:37 ENTRY DATE: AUGUST 13, 2023@09:38:40 AUTHOR: JONATAN ROBERTSON EXP COSIGNER: URGENCY: STATUS: COMPLETED PRIMARY CARE TELEPHONE CONTACT ST Has ADDENDA Called Vet in response to his secure message requesting marriage counseling. Attempt to reach [place] by phone was unsuccessful, reached voicemail, Left HIPAA-compliant voicemail requesting return call. Contact information for the clinic and scheduling was provided. No confidential information given. Plan: - Further documented attempts at contact to be made in accordance with minimal scheduling guidelines. Adding MSA to this note to request letter be sent to . /luis Robertson PsyD Clinical Psychologist Signed: 08/13/2023 09:40 Receipt Acknowledged By: 08/19/2023 09:20 /nataliia/ MARIS JUNIOR LEAD HAM STRINGER 08/14/2023 ADDENDUM STATUS: COMPLETED Additional phone call attempt made. Reached voicemail. Left HIPPA compliant message with contact information for the clinic. /luis Robertson PsyD Clinical Psychologist Signed: 08/14/2023 09:53 JONATAN ROBERTSON [facility]
--- OUTSIDE RECORDS SUMMARY | 2024-03-31 00:58 | XMS_ITS | Encounter Summary ---
Author Name [facility] [place] Address [address] [place] [address] Care Team Providers Care Hospice Director Name Role Phone KODAK MORTON Primary [...] CHOIC E PREFE RR Apr 13, 2020 [id number] [phone] BOOGIE BAILEY ANDON PATIENT ANTHE[place] PREFERRED PROVIDER ORGANIZAT ION (PPO) BLUE CHOIC E PREFE RR Apr 13, 2020 [id number] [phone] BOOGIE BAILEY ANDON PATIENT ANTHE[place] PREFERRED PROVIDER ORGANIZAT ION (PPO) BLUE CHOIC E PREFE RR Apr 13, 2020 [id number] [phone] BOOGIE BAILEY ANDCARLA PATIENT [place] PREFERRED PROVIDER ORGANIZAT ION (PPO) BLUE CHOIC E PREFE RR Apr 13, 2020 [id number] [phone] BOOGIE BAILEY PATIENT PRIME THERAPEUTI CS RX PRESCRIPT ION BCBSI L [place] Apr 13, 2020 BCBSIL [id number] [phone] BOOGIE BAILEY PATIENT [facility] 2018 [place] May 10, 2019 SELECT [id number] 22 BOOGIE BAILEY PATIENT Selected Encounter This section includes the information on record at [place] for the Encounter. Date/Time Encounter Type Encounter Description Reason Provider Source Jun 08, 2023 10:04 AM Outpatient Encounter PRIMARY CARE/MEDICINE NOELLE OWENS [place] Encounter Template Text not used by [place] [...] 14, 2023 10:30 AM AMBULATORY - MEDICINE [facility] August 17, 2023 09:15 AM AMBULATORY - MEDICINE [facility] Oct 14, 2023 09:15 AM AMBULATORY MEDICINE [facility] Oct 14, 2023 10:00 AM AMBULATORY - MEDICINE [facility] Nov 18, 2023 10:00 AM AMBULATORY MEDICINE [facility] Nov 25, 2023 10:00 AM AMBULATORY MEDICINE [facility] Lab Results: +/- 30 days of the encounter This section includes the Chemistry and Hematology Lab Results on record with [place] for the patient. Radiology Reports and Pathology Reports are provided separately, in subsequent sections. Lab Results This section contains the Chemistry/Hematology Results that were resulted 30 days before or 30 daysafter the date of the Encounter. Date/Time Source Result Type Result - Unit Interpretation Reference Range Comment May 20, 2023 10:15 AM [facility] LIPID PANEL (STL) Specimen Type: PLASMA Comment: No hemolysis noted. Ordering Provider: FRANSISCO MORTON Report Released Date/Time: May 20, 2023 09:35 AM Reporting Lab: [facility] [address] [facility] [id number] Performing Lab: [facility] [address] [place] [phone] CHOLESTEROL 165 mg/dL 0-200 TRIGLYCERIDE 222 mg/dL H 0-150 CALCULATED LDL 97 mg/dL HDL(New) 24 mg/dL L >40 May 20, 2023 10:15 AM [facility] COMPREHENSIVE METABOLIC PANEL Specimen Type: PLASMA Comment: No hemolysis noted. Ordering Provider: FRANSISCO MORTON Report Released Date/Time: May 20, 2023 09:35 AM Reporting Lab: [address] [id number] Performing Lab: [address] [address] CREATININE 0.91 mg/dL 0.7-1.3 UREA NITROGEN 11.7 [...] 110.6 >60 May 20, 2023 10:15 AM [facility] HGA1C Specimen Type: BLOOD No comment entered. Ordering Provider: FRANSISCO MORTON Report Released Date/Time: May 20, 2023 09:35 AM Reporting Lab: [facility] [address] [place] [phone] Performing Lab: [address] [address] HGA1C 5.6 4.0-6.0 May 20, 2023 10:15 AM [facility] CBC Specimen Type: BLOOD No comment entered. Ordering Provider: FRANSISCO MORTON Report Released Date/Time: May 20, 2023 09:35 AM Reporting Lab: [facility] [address] [facility] [address] Performing Lab: [facility] [address] [facility] [address] WBC 4.8 10*3/uL 3.6-11.2 RBC 4.85 10*6/uL [...] Facil ity Feb 26, 2021 03:59 PM [place]-TO[place]ACCO NEVER USED [facility] Radiology Reports: +/- 30 days of [...] the Encounter. The data comes from all [place] treatment facilities. Date/Time Radiology Report Provider Source May 20, 2023 09:50 AM CHEST X-RAY, 2 VIE WS: JORDYN BAILEY [id number] [phone] M Exm Date: MAY 20, 2023@09:50 Req Phys: KODAK MORTON Pat Loc: [facility] PACT B5 PCP (Req'g Img Loc: -MAIN RADIOLOGY SUITE Service: Unknown (Case [id number] COMPLETE) CHEST X-RAY, 2 VIEWS (RAD Detailed) CPT:51760 Proc Modifiers : AP & LAT Reason for Study: PT WITH KHADRA base lien chest x-ray Clinical History: 38 yrs old male with obesity and KHADRA need base line Chest X-ray Report Status: Verified Date Reported: MAY 20, 2023 Date Verified: MAY 20, 2023 [employer] E-Sig:/NATALIIA/GRACE ORDONEZ Report: CASE [id number]. Chest, PA and lateral views. COMPARISON: 05/28/2022 FINDINGS: Lungs: The lungs are clear of airspace opacity. Mediastinum/Ernestina: The cardiomediastinal silhouette and pulmonary vascularity appear normal. Pleura: No pleural effusion or pneumothorax. Impression: No acute cardiopulmonary process. Primary Interpreting Staff: GRACE ORDONEZ MD ([employer]) /GRACE YEPEZ [facility] Encounter Notes: All associated encounter notes This section contains the clinical notes associated to the Encounter. Date/Time Encounter Note(s) Provider Source Jun 09, 2023 10:53 PM ADDENDUM: LOCAL TITLE: Addendum STANDARD TITLE: ADDENDUM DATE OF NOTE: JUN 09, 2023@22:53:43 ENTRY DATE: JUN 09, 2023@22:53:44 AUTHOR: KODAK MORTON EXP COSIGNER: URGENCY: STATUS: COMPLETED I had ordered Benzonatate 200 mg three times a day cough medciation on 05/20/23 that was increase dose from 100mg previous dose /nataliia/ Kodak Morton MD Staff Physician Signed: 06/09/2023 22:55 Receipt Acknowledged By: 06/10/2023 13:46 /nataliia/ NOELLE JIMENEZ RN REGISTERED NURSE === --- Original Document --- 06/08/23 PRIMARY CARE SECURE MESSAGING: ------Original Message ------ Sent: 06/08/2023 12:28 PM ET From: JORDYN BAILEY To: [facility], 8[facility]SELENE[facility] Subject: Medication:New Medication Questions [facility], I am at and the only medication they have for me is Ibuprofen. Dr Morton mentioned putting me on a a stronger cough medication when I spoke to him but it's not in the system. Can I request the Dr call me at his earliest convenience so I can discuss this with him? Than you! ------Original Message ------ Sent: 06/08/2023 03:25 PM ET From: NOELLE OWENS To: JORDYN BAILEY Subject: Medication:New Medication Questions Good Afternoon, I will forward your request Dr. Morton. Noelle JIMENEZ, nanotechnologist /nataliia/ NOELLE JIMENEZ RN REGISTERED NURSE Signed: 06/08/2023 14:25 Receipt Acknowledged By: 06/09/2023 22:55 /nataliia/ Kodak Morton MD Staff Physician OKDAK MORTON [facility] Jun 08, 2023 03:25 PM PRIMARY CARE SECUR E MESSAGING: LOCAL TITLE: PRIMARY CARE SECURE MESSAGING STANDARD TITLE: PRIMARY CARE SECURE MESSAGING DATE OF NOTE: JUN 08, 2023@15:25 ENTRY DATE: JUN 08, 2023@14:25:15 AUTHOR: NOELLE OWENS EXP COSIGNER: URGENCY: STATUS: COMPLETED PRIMARY CARE SECURE MESSAGING Has ADDENDA ------Original Message ------ Sent: 06/08/2023 12:28 PM ET From: JORDYN BAILEY To: ST, 8_SELENE, M_Primary Care, [place] Subject: Medication:New Medication Questions [facility], I am at and the only medication they have for me is Ibuprofen. Dr Morton mentioned putting me on a a stronger cough medication when I spoke to him but it's not in the system. Can I request the Dr call me at his earliest convenience so I can discuss this with him? Than you! ------Original Message ------ Sent: 06/08/2023 03:25 PM ET From: NOELLE OWENS To: JORDYN BAILEY Subject: Medication:New Medication Questions Good Afternoon, I will forward your request Dr. Morton. Noelle Owens BSN, nanotechnologist /nataliia/ NOELLE JIMENEZ RN REGISTERED NURSE Signed: 06/08/2023 14:25 Receipt Acknowledged By: 06/09/2023 22:55 /nataliia/ Kodak Morton MD Staff Physician 06/09/2023 ADDENDUM STATUS: COMPLETED I had ordered Benzonatate 200 mg three times a day cough medciation on 05/20/23 that was increase dose from 100mg previous dose /nataliia/ Kodak Morton MD Staff Physician Signed: 06/09/2023 22:55 Receipt Acknowledged By: * AWAITING SIGNATURE * NOELLE OWENS RICHELLE D [facility] Jun 08, 2023 10:04 AM PRIMARY CARE Medcurrent MESSAGING: LOCAL TITLE: PRIMARY CARE SECURE MESSAGING STANDARD TITLE: PRIMARY CARE SECURE MESSAGING DATE OF NOTE: JUN 08, 2023@10:04 ENTRY DATE: JUN 08, 2023@09:04:56 AUTHOR: NOELLE OWENS EXP COSIGNER: URGENCY: STATUS: COMPLETED ------Original Message ------ Sent: 06/08/2023 07:33 AM ET From: JORDYN BAILEY To: Kelsie, 8_SELENE M_Primary Care, [facility] Subject: Medication:New Medication Questions Good Morning, I spoke with Dr. Morton last week and he ordered me some new meds for my cough, however i was unsure if he said if he is going to mail me the meds or if i need to go to [facility] to get them. Can i get clarification please? Thank you for all you do! ------Original Message ------ Sent: 06/08/2023 10:04 AM ET From: NOELLE OWENS To: JORDYN BAILEY Subject: Medication:New Medication Questions Good Morning, The medication is at [facility] for you to burr picker. You can also always call the pharmacy and they can tell you if a medication will be mailed or if it is set for burr picker. Have a great day. Noelle MAGALLANESN, nanotechnologist /es/ NOELLE JIMENEZ RN REGISTERED NURSE Signed: 06/08/2023 09:04 NOELLE OWENS [facility]
--- OUTSIDE RECORDS SUMMARY | 2024-03-31 00:58 | XMS_ITS | Encounter Summary ---
Author Name [facility] [place] Address [address] [place] [address] Care Team Providers Care Seismic Computer Name Role Phone KODAK MORTON Primary Care [...] CHOIC E PREFE RR Apr 13, 2020 [id number] [phone] BOOGIE BAILEY ANDON PATIENT ANTHEM [employer] [place] PREFERRED PROVIDER ORGANIZAT ION (PPO) BLUE CHOIC E PREFE RR Apr 13, 2020 [id number] [phone] BOOGIE BAILEY ANDON PATIENT ANTHEM [employer] [place] PREFERRED PROVIDER ORGANIZAT ION (PPO) BLUE CHOIC E PREFE RR Apr 13, 2020 [id number] [phone] BOOGIE BAILEY ANDCARLA PATIENT [employer] [place] PREFERRED PROVIDER ORGANIZAT ION (PPO) BLUE CHOIC E PREFE RR Apr 13, 2020 [id number] [phone] BOOGIE BAILEY PATIENT PRIME THERAPEUTI CS RX PRESCRIPT ION BCBSI L [place] Apr 13, 2020 BCBSIL [id number] [phone] BOOGIE BAILEY PATIENT [facility] 2018 [place] May 10, 2019 SELECT [id number] 22 BOOGIE BAILEY PATIENT Selected Encounter This section includes the information on record at [place] for the Encounter. Date/Time Encounter Type Encounter Description Reason Provider Source August 12, 2023 02:06 PM Outpatient Encounter PRIMARY CARE/MEDICINE NOELLE FLORES Valentin Encounter Template Text not used by [place] Plan of Treatment: Future Appointments (+ 6 months) and Future Tests (+/- 45 days) The Plan of Treatment section includes future care activities for the patient from all [place] treatmentfacilities. This section includes future appointments and future orders which are active, pending or scheduled. Future Appointments This section includes appointments that were scheduled to occur 6 months from the date of the Encounter, up to a maximum of 20 appointments. The data comes from all [place] treatment facilities. Appointment Date/Time Appointment Type Appointme nt Facility Name August 14, 2023 10:30 AM AMBULATORY - MEDICINE [facility] August 17, 2023 09:15 AM AMBULATORY - MEDICINE [facility] Oct 14, 2023 09:15 AM AMBULATORY - MEDICINE [facility] Oct 14, 2023 10:00 AM AMBULATORY - MEDICINE [facility] Nov 18, 2023 10:00 AM AMBULATORY - MEDICINE [facility] Nov 25, 2023 10:00 AM AMBULATORY - MEDICINE [facility] Jan 09, 2024 11:29 AM AMBULATORY - MEDICINE [facility] Jan 09, 2024 03:00 PM AMBULATORY - NONE [facility] Jan 14, 2024 09:00 AM AMBULATORY - MEDICINE [facility] Jan 14, 2024 10:00 AM AMBULATORY - MEDICINE [facility] Jan 26, 2024 01:00 PM AMBULATORY - MEDICINE [facility] Jan 28, 2024 01:45 PM AMBULATORY - REHAB MEDICIN E [facility] Feb 02, 2024 02:00 PM AMBULATORY - PSYCHIATRY [facility] Feb 08, 2024 09:00 AM AMBULATORY - NEUROLOGY [facility] Feb 12, 2024 02:30 PM AMBULATORY - NONE [facility] Social History: Smoking Status (Most current) and Tobacco Use (All prior to encounter date) This section includes the most current, and the historical, smoking and tobacco- related health factors from the [place] facility where the Encounter took place. Current Smoking Status This section includes the most current smoking, or tobacco-related health factor, from the [place] facility where the Encounter took place. Date/Time Current Smoking Status Comment Facil ity Feb 26, 2021 03:59 PM [place] NEVER USED [facility] Encounter Notes: All associated encounter notes This section contains the clinical notes associated to the Encounter. Date/Time Encounter Note(s) Provider Source August 12, 2023 02:06 PM PRIMARY CARE SECUR E MESSAGING: LOCAL TITLE: PRIMARY CARE SECURE MESSAGING STANDARD TITLE: PRIMARY CARE SECURE MESSAGING DATE OF NOTE: AUGUST 12, 2023@14:06 ENTRY DATE: AUGUST 12, 2023@14:06:33 AUTHOR: NOELLE FLORES EXP COSIGNER: URGENCY: STATUS: COMPLETED ------Original Message ------- Sent: 08/12/2023 11:58 AM ET From: JORDYN BAILEY To: [facility], 8_SELENE, M_Primary Secretary, [place] Subject: General:Marriage Counseling [facility], I am wondering if Dr. Morton could put in a referral for marriage counseling for me and my . We had started the process back in December but had to put it on hold. Thank you very much! ------Original Message ------- Sent: 08/12/2023 03:05 PM ET From: NOELLE FLORES To: JORDYN BAILEY Subject: General:Marriage Counseling Good Afternoon, I will forward your request. Noelle JIMENEZ, high school assistant football coach /es/ NOELLE JIMENEZ RN REGISTERED NURSE Signed: 08/12/2023 14:06 Receipt Acknowledged By: 08/14/2023 13:29 /es/ Kisha Cortez PsyD Clinical Psychologist NOELLE FLORES [facility]
--- OUTSIDE RECORDS SUMMARY | 2024-03-31 00:58 | XMS_ITS | Encounter Summary ---
Author Name [facility] [place] Address [address] [facility], [place] [address] Care Team Providers Care Factory Lay Out Engineer Name Role Phone KODAK MORTON Primary Care [...] CHOIC E PREFE RR Apr 13, 2020 [id number] [phone] BOOGIE PINEDA PATIENT [place] PREFERRED PROVIDER ORGANIZAT ION (PPO) BLUE CHOIC E PREFE RR Apr 13, 2020 [id number] [phone] STEPHANIE PINEDAON PATIENT ANTHE[place] [employer] [place] PREFERRED PROVIDER ORGANIZAT ION (PPO) BLUE CHOIC E PREFE RR Apr 13, 2020 [id number] [phone] BOOGIE PINEDA PATIENT [employer] [place] PREFERRED PROVIDER ORGANIZAT ION (PPO) BLUE CHOIC E PREFE RR Apr 13, 2020 [id number] [phone] BOOGIE PINEDA PATIENT PRIME THERAPEUTI CS RX PRESCRIPT ION BCBSI L [place] Apr 13, 2020 BCBSIL [id number] [phone] BOOGIE PINEDA PATIENT [facility] 2018 [place] RE May 10, 2019 SELECT [id number] 22 BOOGIE PINEDA PATIENT Selected Encounter This section includes the information on record at [place] for the Encounter. Date/Time Encounter Type Encounter Description Reason Provider Source May 20, 2023 09:00 AM OFFICE O/P EST MOD 30 MIN PRIMARY CARE/MEDICINE ICD-10-CM R05.2 Subacute cough BOBBY MUNSON IHValentin Encounter Template Text not used by [place] Assessments - Encounter Diagnoses This section includes the primary and secondary diagnoses documented for the Encounter. Date/Time Primary/Secondary Diagnosis Diagnosis Name Provider Source May 20, 2023 09:48 AM [facility] May 20, 2023 09:48 AM SECONDARY Abnormal results of liver function studies [facility] May 20, 2023 09:48 AM SECONDARY Fatty (change of) liver, not elsewhere classified [facility] May 20, 2023 09:48 AM SECONDARY Obesity, unspecified [facility] Plan of Treatment: Future Appointments [...] Date/Time Appointment Type Appointme nt Facility Name Jun 03, 2023 08:45 AM AMBULATORY - MEDICINE [facility] August 14, 2023 10:30 AM AMBULATORY - MEDICINE [facility] August 17, 2023 09:15 AM AMBULATORY - MEDICINE [facility] Oct 14, 2023 09:15 AM AMBULATORY - MEDICINE [facility] Oct 14, 2023 10:00 AM AMBULATORY - MEDICINE [facility] Nov 18, 2023 10:00 AM AMBULATORY - MEDICINE [facility] Lab Results: +/- 30 days [...] Range Comment May 20, 2023 10:[address] [facility] LIPID PANEL (STL) Specimen Type: PLASMA Comment: No hemolysis noted. Ordering Provider: FRANSISCO MORTON Report Released Date/Time: May 20, 2023 09:35 AM Reporting Lab: [facility] [address] [place] [phone] Performing Lab: [address] [phone] CHOLESTEROL 165 mg/dL 0-200 TRIGLYCERIDE 222 mg/dL H 0-150 CALCULATED LDL 97 mg/dL HDL(New) 24 mg/dL L >40 May 20, 2023 10:[address] [facility] HGA1C Specimen Type: BLOOD No comment entered. Ordering Provider: FRANSISCO MORTON Report Released Date/Time: May 20, 2023 09:35 AM Reporting Lab: [facility] [address] [facility] [phone] Performing Lab: [address] [phone] HGA1C 5.6 4.0-6.0 May 20, 2023 10:[address] [facility] COMPREHENSIVE METABOLIC PANEL Specimen Type: PLASMA Comment: No hemolysis noted. Ordering Provider: FRANSISCO MORTON Report Released Date/Time: May 20, 2023 09:35 AM Reporting Lab: [facility] [address] [place] [phone] Performing Lab: [address] [phone] CREATININE 0.91 mg/dL 0.7-1.3 UREA NITROGEN 11.7 [...] 110.6 >60 May 20, 2023 10:[address] [facility] CBC Specimen Type: BLOOD No comment entered. Ordering Provider: FRANSISCO MORTON Report Released Date/Time: May 20, 2023 09:35 AM Reporting Lab: [facility] [address] [facility] [phone] Performing Lab: [facility] [address] [facility] [phone] WBC 4.8 10*3/uL 3.6-11.2 RBC 4.85 10*6/uL [...] 10*3/uL 0.00-0.60 BASOPHILS, ABSOLUTE 0.02 10*3/uL 0.00-0.20 Vital Signs: All taken on the encounter date This section contains inpatient and outpatient Vital Signs collected on the date of the Encounter. Date/Time Temperature Pulse Blood Pressure Respiratory Rate SP02 Pain Height Weight Body Mass Index Source May 20, 2023 08:56 AM 97.8 98 123/87 22 96 6 225.2 32 [facility] Social History: Smoking Status (Most [...] Date/Time Current Smoking Status Comment Facil ity May 20, 2023 09:00 AM [place]-TOBACCO FORMER USER [facility] Tobacco Use History This section includes a history of the smoking, or tobacco-related health factors, that were collected on or before the date of the Encounter. The data comes from the [place] facility where the Encounter took place. Date/Time Smoking Status/Tobacco Use Comment F acility May 20, 2023 09:00 AM [place] [address] [facility] May 28, 2022 10:30 AM [place]-TOBAC[place] NEVER USED [facility] Radiology Reports: +/- 30 days of the [...] AM CHEST X-RAY, 2 VIE WS: JORDYN PINEDA [id number] M Exm Date: MAY 20, 2023@09:50 Req Phys: KODAK MORTON Loc: [facility] PACT B5 PCP (Ileana'g Img Loc: -MAIN RADIOLOGY SUITE Service: Unknown (Case [id number] COMPLETE) CHEST X-RAY, 2 VIEWS (RAD Detailed) CPT:74004 Proc Modifiers : AP & LAT Reason for Study: PT WITH KHADRA base lien chest x-ray Clinical History: 38 yrs old male with obesity and KHADRA need base line Chest X-ray Report Status: Verified Date Reported: MAY 20, 2023 Date Verified: MAY 20, 2023 Shell Coremaker E-Sig:/ES/GRACE ORDONEZ Report: CASE [id number]. Chest, PA and lateral views. COMPARISON: 05/28/2022 FINDINGS: Lungs: The lungs are clear of airspace opacity. Mediastinum/Ernestina: The cardiomediastinal silhouette and pulmonary vascularity appear normal. Pleura: No pleural effusion or pneumothorax. Impression: No acute cardiopulmonary process. Primary Interpreting Staff: GRACE ORDONEZ MD (Shell Coremaker) /GRACE YEPEZ [facility] Encounter Notes: All associated encounter notes This section contains the clinical notes associated to the Encounter. Date/Time Encounter Note(s) Provider Source May 20, 2023 09:23 AM PRIMARY CARE NOTE: LOCAL TITLE: PRIMARY CARE PROVIDER ESTABLISHED VISIT ST STANDARD TITLE: PRIMARY CARE NOTE DATE OF NOTE: MAY 20, 2023@09:23 ENTRY DATE: MAY 20, 2023@09:23:50 AUTHOR: KODAK MORTON EXP COSIGNER: URGENCY: STATUS: COMPLETED ESTABLISHED PATIENT UCGX-DO-WSPY: REASON FOR VISIT/CHIEF COMPLAINT: Still cough and chest hiurt post COVID 04/15/23 HPI: Mr. Pineda is a 38 yrs old Obesce WM He came as schedueld appointmnet He report was dx with COVID 19 at home test on 04/15/23 with cough sore throat and runy nose He went to [facility] and [facility] and Bazonatate cough med thay he took he say his symptoemwere resolved but still have cough that hurt his chest He finishe [facility] med he has no fever or chill No SOB He has Obesitya nd dx with Fatty liver dz and see Heptalogist lost to l follow he is holicday seaon gain weight instead lose weight he is working on it His father was dx with Bladder ca 12/2020 had txand removed bladder than in 05/2021 mets to brain He has no cocner I gave him MOVE program card and Chtapqpakvn3h no agin to call to help in losing weight He has KHADRA and use CPAP machine but during COVID not use as much nd get use to it I will also place consult for to check his CPAP He also lost to follow during holiday season and with hs father illness for Marrge conselling and will call Dr Cortez when ready Saeed no other complaint PAST MEDICAL HISTORY: 1) Chronic back pain 2) Sleep apnea 3) Posttraumatic stress disorder 4) Major depressive disorder 5) Steatosis of liver SOCIAL HISTORY: NICOTINE: Nicotine User: No ALLERGIES: SHELLFISH ALLERGY REVIEW: Allergy list reviewed and remains current. MEDICATION RECONCILIATION: I have reviewed the patient's medication list with the patient and/or his/her care-home builder. Handwritten corrections, additions and/or deletions were made to the list. Corrected Outpatient Medication List was provided to the patient/caregiver. Active Outpatient Medications (including Supplies): Active Outpatient Medications Status 1) BENZONATATE 100MG CAP TAKE ONE CAPSULE BY MOUTH THREE ACTIVE TIMES A DAY NEEDED PHYSICAL EXAMINATION: Male General appearance: VITALS (most recent, as listed in the electronic record): B/P: 123/87 (05/20/2023 08:56) Pulse: 98 (05/20/2023 08:56) Temperature: 97.8 F [36.6 C] (05/20/2023 08:56) Weight: 225.2 lb [102.15 kg] (05/20/2023 08:56) Height: 70 in [177.8 cm] (05/28/2022 10:51) BMI: 32.4 Pain: 6 (05/20/2023 08:56) (0-10 scale) Physical findings: Mild Obesce built male walk w/o gait dist in NAD HEENT:nc, at Perrla Scler/conj clear ,OP clear Neck:Supple no jvd, no bruit Heart:S1 S2 , No S3 S4, RRR , No m/g/r appreciated Lungs:clear to auscultate no wheezing or rale , good air entry samantha Abdomen:soft nt no HSM BS+ Ext:no leg edema Neuro:A & O x3 , no focal deficit ASSESSMENT/PLAN: 1.Obesity need to lose weight and watch diet as above to0 call Nutrictionand MOVE 2)s/p COVID and tx with med but still cough will refill Banzonatate 200mg 3-4 x/day and NSAID for chest pain /inflammationanjd zyrtec 10mg aday f ashoirt course get laba dn CXR , though doubt any pneumonia call if noit get better 3)Fatty liver dz , repeat LFTs call GI for f/u appointmnet 4.KHADRA use CPAP daily 5)Shayy hall call Dr Cortez when ready RETURN TO CLINIC: Return to Clinic order placed SUMMARY STATEMENT: Plan of care has been discussed with including expected therapeutic benefits and potential side effects of prescribed medication and treatments. verbalizes understanding and is in agreement with the plan of care. Patient was instructed to keep all scheduled appointments and contact bias machine operator for any additional problems. PREVENTION & SCREENING: MOVE Weight Loss Program Offer: * Veterans interested in enrolling in the program can do so without a referral. Encourage Veterans to please call to schedule an appointment. Tobacco Use Screening: The patient is a former tobacco user. The patient quit fifteen or more years ago. /nataliia/ Kodak Morton MD Staff Physician Signed: 05/20/2023 09:[address] [facility] May 20, 2023 08:57 AM NURSING NOTE: LOCAL TITLE: V15 PACT FACE TO FACE NOTE STL STANDARD TITLE: NURSING NOTE DATE OF NOTE: MAY 20, 2023@08:57 ENTRY DATE: MAY 20, 2023@08:57:46 AUTHOR: BOBBY MUNSON EXP COSIGNER: URGENCY: STATUS: COMPLETED Provider Visit: Patient Identifiers : Full Name Date of Reason for visit: Established Follow-Up Mode of Arrival: Wheelchair Allergy Review: SHELLFISH Allergy list reviewed and remains current. Recent Vital Signs: Temperature: 97.8 F [36.6 C] (05/20/2023 08:56) Pulse: 98 (05/20/2023 08:56) Respiration: 22 (05/20/2023 08:56) B/P: 123/87 (05/20/2023 08:56) Pain: 6 (05/20/2023 08:56) Wt: 225.2 lb [102.15 kg] (05/20/2023 08:56) Ht: 70 in [177.8 cm] (05/28/2022 10:51) BMI: 32.4 POX: 96% (05/20/2023 08:56) Blood sugar glucometer reading: n/a PERSONAL HEALTH INVENTORY Notes: No data available for PHI note titles PERSONAL HEALTH INVENTORY - MAP: 08/27/2021 Personal Health Plan [place], [place], [place] (MAP) MY FAMILY IS MY MOTIVATION. What matters most to you in your life right now? ---- Victoria's Response: family Would you like to discuss any personal problem, family problem, alcohol use, drug use, or a mental or emotional illness? No Contact provided Primary Care phone number and encouraged to call if any questions or concerns. Review that after hours nurse line [phone] and emergency room are available 03/11 for patient use. Contact verbalized good understanding. No notification required for this note. /nataliia/ BOBBY MUNSON LPN LICENSED PRACTICAL NURSE Signed: 05/20/2023 08:[address] [facility]
--- OUTSIDE RECORDS SUMMARY | 2024-03-31 00:58 | XMS_ITS | Encounter Summary ---
Author Name [facility] [place] [facility] [place] Address [address] [place] [address] Care Team Providers Care Looseleaf Binder Coverer Name Role Phone KODAK MORTON Primary Care [...] CHOIC E PREFE RR Apr 13, 2020 [id number] [phone] BOOGIE BAILEY ANDON PATIENT ANTHEM [employer] PREFERRED PROVIDER ORGANIZAT ION (PPO) BLUE CHOIC E PREFE RR Apr 13, 2020 [id number] [phone] BOOGIE BAILEY ANDON PATIENT ANTHEM [employer] PREFERRED PROVIDER ORGANIZAT ION (PPO) BLUE CHOIC E PREFE RR Apr 13, 2020 [id number] [phone] BOOGIE BAILEY ANDCARLA PATIENT [employer] PREFERRED PROVIDER ORGANIZAT ION (PPO) BLUE CHOIC E PREFE RR Apr 13, 2020 [id number] [phone] BOOGIE BAILEY PATIENT PRIME THERAPEUTI CS RX PRESCRIPT ION BCBSI L [place] Apr 13, 2020 BCBSIL [id number] [phone] BOOGIE BAILEY PATIENT [facility] [address] [place] May 10, 2019 [facility] [id number] 22 BOOGIE BAILEY PATIENT Selected Encounter This section includes the information on record at [place] for the Encounter. Date/Time Encounter Type Encounter Description Reason Provider Source Jun 10, 2023 02:46 PM Outpatient Encounter PRIMARY CARE/MEDICINE NOELLE OWENS Valentin Encounter Template Text not used by [place] Plan of Treatment: Future Appointments (+ 6 months) and Future Tests (+/- 45 days) The Plan of Treatment section includes future care activities for the patient from all [place] treatmentfacilities. This section includes future appointments and future orders which are active, pending or scheduled. Future Appointments This section includes appointments that were scheduled to occur 6 months from the date of the Encounter, up to a maximum of 20 appointments. The data comes from all [place] treatment facilities. Appointment Date/Time Appointment Type Appointme nt Facility Name August 14, 2023 10:30 AM AMBULATORY - MEDICINE [facility] August 17, 2023 09:15 AM AMBULATORY - MEDICINE [facility] Oct 14, 2023 09:15 AM AMBULATORY MEDICINE [facility] Oct 14, 2023 10:00 AM AMBULATORY MEDICINE [facility] Nov 18, 2023 10:00 AM AMBULATORY MEDICINE [facility] Nov 25, 2023 10:00 AM [facility] MEDICINE [facility] Lab Results: +/- 30 days of the encounter This section includes the Chemistry and Hematology Lab Results on record with [place] for the patient. Radiology Reports and Pathology Reports are provided separately, in subsequent sections. Lab Results This section contains the Chemistry/Hematology Results that were resulted 30 days before or 30 daysafter the date of the Encounter. Date/Time Source Result Type Result - Unit Interpretation Reference Range Comment May 20, 2023 10:[address] [facility] LIPID PANEL (STL) Specimen Type: PLASMA Comment: No hemolysis noted. Ordering Provider: FRANSISCO MORTON Report Released Date/Time: May 20, 2023 09:35 AM Reporting Lab: [facility] [address] [place] [phone] Performing Lab: [facility] [address] [place] [phone] CHOLESTEROL 165 mg/dL 0-200 TRIGLYCERIDE 222 mg/dL H 0-150 CALCULATED LDL 97 mg/dL HDL(New) 24 mg/dL L >40 May 20, 2023 10:[address] [facility] HGA1C Specimen Type: BLOOD No comment entered. Ordering Provider: FRANSISCO MORTON Report Released Date/Time: May 20, 2023 09:35 AM Reporting Lab: [address] [address] Performing Lab: [address] [address] HGA1C 5.6 4.0-6.0 May 20, 2023 10:[address] [facility] COMPREHENSIVE METABOLIC PANEL Specimen Type: PLASMA Comment: No hemolysis noted. Ordering Provider: FRANSISCO MORTON Report Released Date/Time: May 20, 2023 09:35 AM Reporting Lab: [address] [address] Performing Lab: [address] [address] CREATININE 0.91 mg/dL 0.7-1.3 UREA NITROGEN 11.7 [...] >60 May 20, 2023 10:[address] [facility] CBC Specimen Type: BLOOD No comment entered. Ordering Provider: FRANSISCO MORTON Report Released Date/Time: May 20, 2023 09:35 AM Reporting Lab: [facility] [address] [address] Performing Lab: [facility] [address] [address] WBC 4.8 10*3/uL 3.6-11.2 RBC 4.85 10*6/uL [...] and tobacco- related health factors from the [place] facility where the Encounter took place. Current Smoking Status This section includes the most current smoking, or tobacco-related health factor, from the [place] facility where the Encounter took place. Date/Time Current Smoking Status Comment Facil ity Feb 26, 2021 03:59 PM [place]-TOBACCO NEVER USED [facility] Radiology Reports: +/- 30 days [...] the Encounter. The data comes from all [place] treatment facilities. Date/Time Radiology Report Provider Source May 20, 2023 09:50 AM CHEST X-RAY, 2 VIE WS: JORDYN BAILEY [id number] -[id number] M Exm Date: MAY 20, 2023@09:50 Req Phys: KODAK MORTON Pat Loc: [facility] PACT B5 PCP (Req'g Img Loc: -MAIN RADIOLOGY SUITE Service: Unknown (Case [id number] COMPLETE) CHEST X-RAY, 2 VIEWS (RAD Detailed) CPT:10453 Proc Modifiers : AP & LAT Reason for Study: PT WITH KHADRA base lien chest x-ray Clinical History: 38 yrs old male with obesity and KHADRA need base line Chest X-ray Report Status: Verified Date Reported: MAY 20, 2023 Date Verified: MAY 20, 2023 Home Connect Lpn E-Sig:/ES/GRACE ORDONEZ Report: CASE [id number]. Chest, PA and lateral views. COMPARISON: 05/28/2022 FINDINGS: Lungs: The lungs are clear of airspace opacity. Mediastinum/Ernestina: The cardiomediastinal silhouette and pulmonary vascularity appear normal. Pleura: No pleural effusion or pneumothorax. Impression: No acute cardiopulmonary process. Primary Interpreting Staff: GRACE ORDONEZ MD (Home Connect Lpn) /GRACE YEPEZ [facility] Encounter Notes: All associated encounter notes This section contains the clinical notes associated to the Encounter. Date/Time Encounter Note(s) Provider Source Jun 10, 2023 02:46 PM PRIMARY CARE SECUR E MESSAGING: LOCAL TITLE: PRIMARY CARE SECURE MESSAGING STANDARD TITLE: PRIMARY CARE SECURE MESSAGING DATE OF NOTE: JUN 10, 2023@14:46 ENTRY DATE: JUN 10, 2023@13:46:08 AUTHOR: NOELLE OWENS EXP COSIGNER: URGENCY: STATUS: COMPLETED ------Original Message ------- Sent: 06/10/2023 02:45 PM ET From: NOELLE OWENS To: JORDYN BAILEY Subject: General:General Inquiry Good Afternoon, Per Dr. Morton He ordered Benzonatate 200 mg three times a day cough medication on 05/20/23 that was increase dose from 100mg previous dose. This medication is at [facility] to be picked up from pharmacy. Noelle Owens BSN, farm equipment engineer /es/ NOELLE MAGALLANESN RN REGISTERED NURSE Signed: 06/10/2023 13:[address] [facility]
--- OUTSIDE RECORDS SUMMARY | 2024-03-31 00:58 | XMS_ITS | Encounter Summary ---
Author Name [facility] [place] [facility] [place] [facility] [place] Address [address] [place] [address] Care Team Providers Care Sign Language Teacher Name Role Phone KODAK MORTON Primary Care [...] CHOIC E PREFE RR Apr 13, 2020 [id number] [phone] BOOGIE PINEDA ANDON PATIENT ANTHEM [employer] PREFERRED PROVIDER ORGANIZAT ION (PPO) BLUE CHOIC E PREFE RR Apr 13, 2020 [id number] [phone] LYNN,BOOGIE ANDON PATIENT ANTHEM [employer] PREFERRED PROVIDER ORGANIZAT ION (PPO) BLUE CHOIC E PREFE RR Apr 13, 2020 [id number] [phone] BOOGIE PINEDA ANDON PATIENT [employer] PREFERRED PROVIDER ORGANIZAT ION (PPO) BLUE CHOIC E PREFE RR Apr 13, 2020 [id number] [phone] BOOGIE PINEDA ANDON PATIENT PRIME THERAPEUTI CS RX PRESCRIPT ION BCBSI L [place] Apr 13, 2020 BCBSIL [id number] [phone] [facility] [address] RE May 10, 2019 [facility] [id number] 22 BOOGIE PINEDA PATIENT Selected Encounter This section includes the information on record at [place] for the Encounter. Date/Time Encounter Type Encounter Description Reason Provider Source Jun 03, 2023 08:45 AM Outpatient Encounter TELEPHONE PRIMARY CARE ICD-10-CM R05.9 Cough, unspecified CHRISTOFER MORTON Valentin Encounter Template Text not used by [place] Assessments - Encounter Diagnoses This section includes the primary and secondary diagnoses documented for the Encounter. Date/Time Primary/Secondary Diagnosis Diagnosis Name Provider Source Jun 03, 2023 08:45 AM PRIMARY Cough, unspecified KODAK MORTON [facility] Jun 03, 2023 08:45 AM SECONDARY Abnormal results of liver function studies [facility] Jun 03, 2023 08:45 AM SECONDARY Fatty (change of) liver, not elsewhere classified [facility] Jun 03, 2023 08:45 AM SECONDARY Ob[facility], unspecified [facility] Plan of Treatment: Future Appointments (+ 6 months) and Future Tests (+/- 45 days) The Plan of Treatment section includes future care activities for the patient from all [place] treatmentfacilities. This section includes future appointments and future orders which are active, pending or scheduled. Future Appointments This section includes appointments that were scheduled to occur 6 months from the date of the Encounter, up to a maximum of 20 appointments. The data comes from all [place] treatment facilities. Appointment Date/Time Appointment Type Appointme nt Facility Name August 14, 2023 10:30 AM AMBULATORY - MEDICINE [facility] August 17, 2023 09:15 AM AMBULATORY - MEDICINE [facility] Oct 14, 2023 09:15 AM AMBULATORY - MEDICINE [facility] Oct 14, 2023 10:00 AM AMBULATORY - MEDICINE [facility] Nov 18, 2023 10:00 AM AMBULATORY - MEDICINE [facility] Nov 25, 2023 10:00 AM AMBULATORY - MEDICINE [facility] Lab [...] Range Comment May 20, 2023 10:15 AM [facility] LIPID PANEL (STL) Specimen Type: PLASMA Comment: No hemolysis noted. Ordering Provider: FRANSISCO MORTON Report Released Date/Time: May 20, 2023 09:35 AM Reporting Lab: [facility] [address] [place] [phone] Performing Lab: [address] [address] CHOLESTEROL 165 mg/dL 0-200 TRIGLYCERIDE 222 mg/dL H 0-150 CALCULATED LDL 97 mg/dL HDL(New) 24 mg/dL L >40 May 20, 2023 10:15 AM [facility] HGA1C Specimen Type: BLOOD No comment entered. Ordering Provider: FRANSISCO MORTON Report Released Date/Time: May 20, 2023 09:35 AM Reporting Lab: [facility] [address] [place] [address] Performing Lab: [facility] [address] [place] [phone] HGA1C 5.6 4.0-6.0 May 20, 2023 10:15 AM [facility] CBC Specimen Type: BLOOD No comment entered. Ordering Provider: FRANSISCO MORTON Report Released Date/Time: May 20, 2023 09:35 AM Reporting Lab: [facility] [address] [place] [phone] Performing Lab: [facility] [address] [place] [phone] WBC 4.8 10*3/uL 3.6-11.2 RBC 4.85 10*6/uL [...] 10*3/uL 0.00-0.60 BASOPHILS, ABSOLUTE 0.02 10*3/uL 0.00-0.20 May 20, 2023 10:15 AM [facility] COMPREHENSIVE METABOLIC PANEL Specimen Type: PLASMA Comment: No hemolysis noted. Ordering Provider: FRANSISCO MORTON Report Released Date/Time: May 20, 2023 09:35 AM Reporting Lab: [facility] [address] [place] [address] Performing Lab: [facility] [address] [place] [address] CREATININE 0.91 mg/dL 0.7-1.3 UREA NITROGEN 11.7 [...] H 8-40 EGFR (CKD-EPI 2020) 110.6 >60 Social History: Smoking Status (Most current) and Tobacco Use (All prior to encounter date) This section includes the most current, and the historical, smoking and tobacco- related health factors from the [place] facility where the Encounter took place. Current Smoking Status This section includes the most current smoking, or tobacco-related health factor, from the [place] facility where the Encounter took place. Date/Time Current Smoking Status Comment Nicolas allen May 20, 2023 09:00 AM [place]-TO[place]AC[place] FORMER USER [facility] Tobacco Use History This section includes a history of the smoking, or tobacco-related health factors, that were collected on or before the date of the Encounter. The data comes from the [place] facility where the Encounter took place. Date/Time Smoking Status/Tobacco Use Comment F acility May 20, 2023 09:00 AM [place]-TOBACCO QUIT 15 YRS OR MORE [facility] May 28, 2022 10:30 AM [place]-TOBACCO NEVER USED [facility] Radiology Reports: +/- 30 days of the [...] the Encounter. The data comes from all [place] treatment facilities. Date/Time Radiology Report Provider Source May 20, 2023 09:50 AM CHEST X-RAY, 2 VIE WS: JORDYN PINEDA [id number] -[id number] M Exm Date: MAY 20, 2023@09:50 Req Phys: KODAK MORTON Pat Loc: [facility] PACT B5 PCP (Req'g Img Loc: -MAIN RADIOLOGY SUITE Service: Unknown (Case 0 COMPLETE) CHEST X-RAY, 2 VIEWS (RAD Detailed) CPT:90782 Proc Modifiers : AP & LAT Reason for Study: PT WITH KHADRA base lien chest x-ray Clinical History: 38 yrs old male with obesity and KHADRA need base line Chest X-ray Report Status: Verified Date Reported: MAY 20, 2023 Date Verified: MAY 20, 2023 Graphic Specialist E-Sig:/ES/GRACE ORDONEZ Report: CASE [id number]. Chest, PA and lateral views. COMPARISON: 05/28/2022 FINDINGS: Lungs: The lungs are clear of airspace opacity. Mediastinum/Ernestina: The cardiomediastinal silhouette and pulmonary vascularity appear normal. Pleura: No pleural effusion or pneumothorax. Impression: No acute cardiopulmonary process. Primary Interpreting Staff: GRACE ORDONEZ MD (Graphic Specialist) /GRACE YEPEZ [facility] Encounter Notes: All associated encounter notes This section contains the clinical notes associated to the Encounter. Date/Time Encounter Note(s) Provider Source Jun 03, 2023 04:08 PM PRIMARY CARE TELEP BRODIE ENCOUNTER NOTE: LOCAL TITLE: PRIMARY CARE PROVIDER TELEPHONE CONTACT STL STANDARD TITLE: PRIMARY CARE TELEPHONE ENCOUNTER NOTE DATE OF NOTE: JUN 03, 2023@16:08 ENTRY DATE: JUN 03, 2023@16:08:08 AUTHOR: KODAK MORTON EXP COSIGNER: URGENCY: STATUS: COMPLETED PRIMARY CARE PROVIDER TELEPHONE CONTACT STL Has ADDENDA ESTABLISHED PATIENT TELEPHONE: REASON FOR VISIT/CHIEF COMPLAINT: .f/u post covid Cough and chest discomfort HPI: Mr. Pineda is a 38 yrs old Obese WM Has Tele visit today for f/u as he on last clinic visit complaining his cough continue post COVID19 last month 04/2023 despite he was Tx with Paxlovid. He was give Benzonatate for cough and Ibuprofen 400mg 4x a day He today report that NSAID help his chest pain due to cough and some improvement on cough but still he has on and off cough He say ran out Ibuprofen and need refill He has cough med and Zyrtec He has done Chest X-Ray 05/20/23 that was WNL FINDINGS: Lungs: The lungs are clear of airspace opacity. Mediastinum/Ernestina: The cardio mediastinal silhouette and pulmonary vascularity appear normal. Pleura: No pleural effusion or pneumothorax. Impression: No acute cardiopulmonary process. he has no fever or chill No SOB He say he is able to use Face mask with CPAP machine with KHADRA as compared to last month with cough post covid was not able to do daily He has Obesity with Elevated LFTs and DX with Fatty liver ds saw Cco He say he is working on losing weight but not success I encourage him to jose and join [employer] he say he will call them . On question He is not taking Sertraline that was initially by psy in 2021 as GI felt that could also affect liver and can rise LFTs He has [employer] program card and Nutrition tell number to call to help in lose weight Saeed no other complaint PAST MEDICAL HISTORY: 1) Chronic back pain 2) Sleep apnea 3) Posttraumatic stress disorder 4) Major depressive disorder 5) Steatosis of liver 6) Obesity ALLERGIES: SHELLFISH ALLERGY REVIEW: Allergy list reviewed and remains current. MEDICATION RECONCILIATION: I have reviewed the patient's medication list with the patient and/or his/her care-processing assistant. Handwritten corrections, additions and/or deletions were made to the list. Corrected Outpatient Medication List was provided to the patient/caregiver. Active Outpatient Medications (including Supplies): Active Outpatient Medications Status 1) BENZONATATE 200MG CAP TAKE ONE CAPSULE BY MOUTH THREE ACTIVE TIMES A DAY NEEDED FOR COUGH 2) CETIRIZINE HCL 10MG TAB TAKE ONE TABLET BY MOUTH ONCE ACTIVE A DAY FOR ALLERGY SYMPTOMS 3) IBUPROFEN 400MG TAB TAKE ONE TABLET BY MOUTH FOUR ACTIVE TIMES A DAY NEEDED FOR PAIN TAKE WITH FOOD ASSESSMENT/PLAN: 1)cough with chest pain s/p COVID will refill Ibuprofen 600 mg three times as need with food and caution him about its side effect and renal and stomach cont. Benzonatate 200mg 3-4 x/day and NSAID for chest pain and Zyrtec 10mg a day 2)Obesity lose wt. 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 [place] verbalizes understanding and is in agreement with the plan of care. Patient was instructed to keep all scheduled appointments and contact patient consumer marketer for any additional problems. PREVENTION & SCREENING: TIME SPENT: 21 to 30 minutes Homelessness/Food Insecurity Screen: In the past 2 months, have you been living in stable housing that you own, rent, or stay in as part of a household? Yes - Living in stable housing. Are you worried or concerned that in the next 2 months you may NOT have stable housing that you own, rent, or stay in as part of a household? No - Not worried about housing near future The [place] reports the following: Within the past 12 months, you worried whether your food would run out before you got money to buy more. Never true Within the past 12 months, the food you bought just didn't last and you didn't have money to get more. Never true /es/ Kodak Morton MD Staff Physician Signed: 06/03/2023 23:43 06/03/2023 ADDENDUM STATUS: COMPLETED Has reiwed Lab result and dscussed with him Most recent lab tests reveal: SODIUM 138 mEq/L 05/20/2023 10:15 POTASSIUM 4.2 [...] 10:15 EGFR (CKD-EPI 2020) 110.6 05/20/2023 10:15 WBC: 4.8 10*3/uL (05/20/23 10:15) HGB 13.9 g/dL 05/20/2023 10:15 Hct: 40.2 % (05/20/23 10:15) PLT 190 10*3/uL 05/20/2023 10:15 IOther labs: HGA1C 5.6 % 05/20/2023 10:15 HGA1C 5.6 % 12/23/2022 09:57 HGA1C 5.4 % 02/27/2021 14:22 Lipid Panel: TRIGLYCERIDE 222 H mg/dL 05/20/2023 10:15 CHOLESTEROL 165 mg/dL 05/20/2023 10:15 HDL(New) 24 L mg/dL 05/20/2023 10:15 CALCULATED LDL 97 mg/dL 05/20/2023 10:15 He will work on weight ,excercise and avoid saturated /transfat in diet /es/ Kodak Morton MD Staff Physician Signed: 06/03/2023 23:46 KODAK MORTON [facility]
--- OUTSIDE RECORDS SUMMARY | 2024-03-31 00:58 | XMS_ITS | Encounter Summary ---
Author Name [facility] [place] [facility] [place] Address [address] [place] [address] Care Team Providers Care Nail Sticker Name Role Phone KODAK MORTON Primary Care [...] CHOIC E PREFE RR Apr 13, 2020 [id number] [phone] BOOGIE PINEDA ANDON PATIENT ANTHEM [employer] [place] PREFERRED PROVIDER ORGANIZAT ION (PPO) BLUE CHOIC E PREFE RR Apr 13, 2020 [id number] [phone] BOOGIE PINEDA ANDON PATIENT ANTHEM [employer] [place] PREFERRED PROVIDER ORGANIZAT ION (PPO) BLUE CHOIC E PREFE RR Apr 13, 2020 [id number] [phone] BOOGIE PINEDA ANDCARLA PATIENT [employer] [place] PREFERRED PROVIDER ORGANIZAT ION (PPO) BLUE CHOIC E PREFE RR Apr 13, 2020 [id number] [phone] BOOGIE PINEDA PATIENT PRIME THERAPEUTI CS RX PRESCRIPT ION BCBSI L [place] Apr 13, 2020 BCBSIL [id number] [phone] [facility] 2018 TRICA RE May 10, 2019 SELECT [id number] 22 BOOGIE PINEDA PATIENT Selected Encounter This section includes the information on record at [place] for the Encounter. Date/Time Encounter Type Encounter Description Reason Provider Source Jul 13, 2023 08:32 AM Outpatient Encounter PRIMARY CARE/MEDICINE NOELLE FLORES Valentin Encounter Template Text not used by [place] [...] 14, 2023 10:30 AM AMBULATORY - MEDICINE [facility] August 17, 2023 09:15 AM AMBULATORY - MEDICINE [facility] Oct 14, 2023 09:15 AM AMBULATORY - MEDICINE [facility] Oct 14, 2023 10:00 AM AMBULATORY - MEDICINE [facility] Nov 18, 2023 10:00 AM AMBULATORY - MEDICINE [facility] Nov 25, 2023 10:00 AM AMBULATORY - MEDICINE [facility] Jan 09, 2024 11:29 AM AMBULATORY - MEDICINE [facility] Jan 09, 2024 03:00 PM AMBULATORY - NONE [facility] Social History: Smoking Status (Most current) [...] Encounter took place. Date/Time Current Smoking Status Van allen Feb 26, 2021 03:59 PM VA-TOBACCO NEVER USED [facility] Encounter Notes: All associated encounter notes This section contains the clinical notes associated to the Encounter. Date/Time Encounter Note(s) Provider Source Jul 14, 2023 04:47 PM ADDENDUM: LOCAL TITLE: Addendum STANDARD TITLE: ADDENDUM DATE OF NOTE: JUL 14, 2023@16:47:37 ENTRY DATE: JUL 14, 2023@16:47:39 AUTHOR: KODAK MORTON EXP COSIGNER: URGENCY: STATUS: COMPLETED I called Mr. Pineda He reported that he still have cough and the benzonatate medication for cough is not helping him but the cough is not as bad according to patient he has never been a smoker He had COVID-19 on April 25, 2023 and he feels since then he have this lingering cough going on I informed him since he has been on several weeks of cough medicine and no improvement we will asked the pulmonary doctor for evaluation of his cough In the meantme I will told him that we will send him an albuterol inhaler to to use and see if that may help with his cough. he denies any sinus drainage or nasal congestion denies any postnasal drip and feels that his cough coming from his lung Plans to place a pulmonary consult which patient agreed /nataliia/ Kodak Morton MD Staff Physician Signed: 07/14/2023 16:51 Receipt Acknowledged By: 07/15/2023 13:35 /nataliia/ NOELLE MAGALLANESN RN REGISTERED NURSE ====== --- Original Document --- 07/13/23 PRIMARY CARE SECURE MESSAGING: ------Original Message ------- Sent: 07/10/2023 12:02 PM ET From: JORDYN PINEDA To: [facility], Caron_SELENE, M_[facility], [place] Subject: Medication:New Medicine request for Cough Dr Morton & Staff, I have been on the Benzonatate for a couple of months now and i just ordered a refill but i don't feel like it is working for my post-Covid cough. Is there anything i can try to alleviate my cough? It hasnt gotten any better and i feel it is getting a little bit worse a few days at a time. Thank you! ------Original Message ------- Sent: 07/10/2023 12:23 PM ET From: NOELLE FLORES To: JORDYN PINEDA Subject: Medication:New Medicine request for Cough Good Morning, If you feel the cough has gotten worse please go to the ER or your nearest urgent care to be evaluated. Noelle JIMENEZ, seo executive ------Original Message ------- Sent: 07/10/2023 12:42 PM ET From: JORDYN PINEDA To: [facility], [facility] Subject: Medication:New Medicine request for Cough Ma'am, I would like to speak to my doctor since he knows the history and is the one who prescribed me with the meds that i am currently on. I don't feel like this is ER worthy since it's not an emergency, i could go to Urgent Care but as i stated i would like to speak to my doctor. Any chance i can get a phone call from his at his next availability? /nataliia/ NOELLE JIMENEZ RN REGISTERED NURSE Signed: 07/13/2023 08:32 Receipt Acknowledged By: 07/14/2023 17:19 /nataliia/ Kodak Morton MD Staff Physician KODAK MORTON [facility] Jul 13, 2023 08:32 AM PRIMARY CARE [place] MESSAGING: LOCAL TITLE: PRIMARY CARE SECURE MESSAGING STANDARD TITLE: PRIMARY CARE SECURE MESSAGING DATE OF NOTE: JUL 13, 2023@08:32 ENTRY DATE: JUL 13, 2023@08:32:55 AUTHOR: NOELLE FLORES EXP COSIGNER: URGENCY: STATUS: COMPLETED PRIMARY CARE SECURE MESSAGING Has ADDENDA ------Original Message ------- Sent: 07/10/2023 12:02 PM ET From: JORDYN PINEDA To: [facility], CaronCatySELENE M_[facility] Subject: Medication:New Medicine request for Cough Dr Morton & Staff, I have been on the Benzonatate for a couple of months now and i just ordered a refill but i don't feel like it is working for my post-Covid cough. Is there anything i can try to alleviate my cough? It hasnt gotten any better and i feel it is getting a little bit worse a few days at a time. Thank you! ------Original Message ------- Sent: 07/10/2023 12:23 PM ET From: NOELLE FLORES To: JORDYN PINEDA Subject: Medication:New Medicine request for Cough Good Morning, If you feel the cough has gotten worse please go to the ER or your nearest urgent care to be evaluated. Noelle JIMENEZ, seo executive ------Original Message ------- Sent: 07/10/2023 12:42 PM ET From: JORDYN PINEDA To: [facility], Caron_SELENE _[facility] Subject: Medication:New Medicine request for Cough Ma'am, I would like to speak to my doctor since he knows the history and is the one who prescribed me with the meds that i am currently on. I don't feel like this is ER worthy since it's not an emergency, i could go to Urgent Care but as i stated i would like to speak to my doctor. Any chance i can get a phone call from his at his next availability? /nataliia/ NOELLE JIMENEZ RN REGISTERED NURSE Signed: 07/13/2023 08:32 Receipt Acknowledged By: 07/14/2023 17:19 /nataliia/ Kodak Morton MD Staff Physician 07/14/2023 ADDENDUM STATUS: COMPLETED I called Mr. Pineda He reported that he still have cough and the benzonatate medication for cough is not helping him but the cough is not as bad according to patient he has never been a smoker He had COVID-19 on April 25, 2023 and he feels since then he have this lingering cough going on I informed him since he has been on several weeks of cough medicine and no improvement we will asked the pulmonary doctor for evaluation of his cough In the meantme I will told him that we will send him an albuterol inhaler to to use and see if that may help with his cough. he denies any sinus drainage or nasal congestion denies any postnasal drip and feels that his cough coming from his lung Plans to place a pulmonary consult which patient agreed /nataliia/ Kodak Morton MD Staff Physician Signed: 07/14/2023 16:51 Receipt Acknowledged By: * AWAITING SIGNATURE * NOELLE FLORES RICHELLE D [facility]
--- OUTSIDE RECORDS SUMMARY | 2024-03-31 00:58 | XMS_ITS | Encounter Summary ---
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 Name Role Phone KODAK MORTON Primary Care [...] CHOIC E PREFE RR Apr 13, 2020 [id number] [phone] BOOGIE BAILEY PATIENT [place] [employer] [place] PREFERRED PROVIDER ORGANIZAT ION (PPO) BLUE CHOIC E PREFE RR Apr 13, 2020 [id number] [phone] STEPHANIE BAILEYON PATIENT [employer] [employer] [place] PREFERRED PROVIDER ORGANIZAT ION (PPO) BLUE CHOIC E PREFE RR Apr 13, 2020 [id number] [phone] BOOGIE BAILEY PATIENT [employer] [place] PREFERRED PROVIDER ORGANIZAT ION (PPO) BLUE CHOIC E PREFE RR Apr 13, 2020 [id number] [phone] BOOGIE BAILEY PATIENT PRIME THERAPEUTI CS RX PRESCRIPT ION BCBSI L [place] Apr 13, 2020 BCBSIL [id number] [phone] BOOGIE BAILEY PATIENT [facility] 2018 TRICA May 10, 2019 SELECT [id number] 22 BOOGIE BAILEY PATIENT Selected Encounter This section includes the information on record at [place] for the Encounter. Date/Time Encounter Type Encounter Description Reason Pro vider Source May 02, 2023 10:37 AM Outpatient Encounter GENERAL INTERNAL MEDICINE IHE Encounter Template Text not used by [place] Plan of Treatment: Future Appointments (+ 6 months) and Future Tests (+/- 45 days) The Plan of Treatment section includes future care activities for the patient from all [place] [facility]. This section includes future appointments and future orders which are active, pending or scheduled. Future Appointments This section includes appointments that were scheduled to occur 6 months from the date of the Encounter, up to a maximum of 20 appointments. The data comes from all [facility]. Appointment Date/Time Appointment Type Appointme nt Facility Name May 20, 2023 09:00 AM AMBULATORY - MEDICINE [facility] Jun 03, 2023 08:45 AM AMBULATORY - MEDICINE [facility] August 14, 2023 10:30 AM AMBULATORY MEDICINE [facility] August 17, 2023 09:15 AM AMBULATORY - MEDICINE [facility] Oct 14, 2023 09:15 AM AMBULATORY - MEDICINE [facility] Oct 14, 2023 10:00 AM AMBULATORY - MEDICINE [facility] Active, Pending, and Scheduled Orders This section includes a listing of several types of active, pending, and scheduled orders, including clinic medications orders, diagnostic test orders, procedure orders and consult orders; where the start date of the order is 45 days before the date of the Encounter or 45 days after the date of theEncounter. The data comes from all [facility]. Test Date/Time Test Type Test Details Facility Name Apr 02, 2023 12:00 AM Laboratory - Chemi stry Order URINALYSIS (STL) URINE SP [facility] Lab Results: +/- 30 days of the encounter This section includes the Chemistry and Hematology Lab Results on record with [place] for the patient. Radiology Reports and Pathology Reports are provided separately, in subsequent sections. Lab Results This section contains the Chemistry/Hematology Results that were resulted 30 days before or 30 daysafter the date of the Encounter. Date/Time Source Result Type Result - Unit Interpretation Reference Range Comment May 20, 2023 10:15 AM [facility] LIPID PANEL (STL) Specimen Type: PLASMA Comment: No hemolysis noted. Ordering Provider: FRANSISCO MORTON Report Released Date/Time: May 20, 2023 09:35 AM Reporting Lab: [facility] [address] [facility] [id number] Performing Lab: [facility] [address] [facility] [address] CHOLESTEROL 165 mg/dL 0-200 TRIGLYCERIDE 222 mg/dL H 0-150 CALCULATED LDL 97 mg/dL HDL(New) 24 mg/dL L >40 May 20, 2023 10:15 AM [facility] COMPREHENSIVE METABOLIC PANEL Specimen Type: PLASMA Comment: No hemolysis noted. Ordering Provider: FRANSISCO MORTON Report Released Date/Time: May 20, 2023 09:35 AM Reporting Lab: [facility] [address] [facility] [phone] Performing Lab: [facility] [address] [facility] [address] CREATININE 0.91 mg/dL 0.7-1.3 UREA NITROGEN 11.7 [...] 110.6 >60 May 20, 2023 10:15 AM [facility] HGA1C Specimen Type: BLOOD No comment entered. Ordering Provider: FRANSISCO MORTON Report Released Date/Time: May 20, 2023 09:35 AM Reporting Lab: [facility] [address] [facility] [address] Performing Lab: [facility] [address] [place] [id number] HGA1C 5.6 4.0-6.0 May 20, 2023 10:15 AM [facility] CBC Specimen Type: BLOOD No comment entered. Ordering Provider: FRANSISCO MORTON Report Released Date/Time: May 20, 2023 09:35 AM Reporting Lab: [address] [address] Performing Lab: [facility] [address] [place] [phone] WBC 4.8 10*3/uL 3.6-11.2 RBC 4.85 10*6/uL [...] and tobacco- related health factors from the [place] facility where the Encounter took place. Current Smoking Status This section includes the most current smoking, or tobacco-related health factor, from the [place] facility where the Encounter took place. Date/Time Current Smoking Status Comment Nicolas allen Feb 26, 2021 03:59 PM VA-TOBACCO NEVER USED [facility] Radiology Reports: +/- 30 [...] the Encounter. The data comes from all [place] treatment facilities. Date/Time Radiology Report Provider Source May 20, 2023 09:50 AM CHEST X-RAY, 2 VIE WS: JORDYN BAILEY [id number] -[id number] M Exm Date: MAY 20, 2023@09:50 Req Phys: KODAK MORTON Pat Loc: [facility] PACT B5 PCP (Req'g Img Loc: -MAIN RADIOLOGY SUITE Service: Unknown (Case [id number] COMPLETE) CHEST X-RAY, 2 VIEWS (RAD Detailed) CPT:77082 Proc Modifiers : AP & LAT Reason for Study: PT WITH KHADRA base lien chest x-ray Clinical History: 38 yrs old male with obesity and KHADRA need base line Chest X-ray Report Status: Verified Date Reported: MAY 20, 2023 Date Verified: MAY 20, 2023 Cold Saw Operator E-Sig:/ES/GRACE ORDONEZ Report: CASE [id number]. Chest, PA and lateral views. COMPARISON: 05/28/2022 FINDINGS: Lungs: The lungs are clear of airspace opacity. Mediastinum/Ernestina: The cardiomediastinal silhouette and pulmonary vascularity appear normal. Pleura: No pleural effusion or pneumothorax. Impression: No acute cardiopulmonary process. Primary Interpreting Staff: GRACE ORDONEZ MD (Cold Saw Operator) /GRACE YEPEZ [facility] Encounter Notes: All associated encounter notes This section contains the clinical notes associated to the Encounter. Date/Time Encounter Note(s) Provider Source Apr 15, 2023 10:37 AM SCANNED NOTE: LOCAL TITLE: COMMUNITY CARE - URGENT CARE RECORD STL STANDARD TITLE: SCANNED NOTE DATE OF NOTE: APR 15, 2023@10:37 ENTRY DATE: MAY 02, 2023@10:37:29 AUTHOR: EMMANUEL HECK EXP COSIGNER: URGENCY: STATUS: COMPLETED Attached to this note is a scanned copy of an outside medical record consisting of the following document(s): Emergency Department Summary DOS: 04/15/2023 From:[facility] To view the scanned document: 1) You must be logged into [employer] 2) Click on Toolbar 3) Sign on to [employer] /es/ EMMANUEL HECK [employer] DRIVER SCANNER Signed: 05/02/2023 10:40 EMMANUEL HECK [facility]
--- OUTSIDE RECORDS SUMMARY | 2024-03-31 00:59 | XMS_ITS ---
Author Name [facility] [place] [facility] [place] [facility] [place] Address [address] [place] [address] Care Team Providers Care Tearoom Host Name Role Phone KODAK MORTON Primary Care [...] CHOIC E PREFE RR Apr 13, 2020 [id number] [phone] BOOGIE PINEDA ANDON PATIENT ANTHEM [employer] [place] PREFERRED PROVIDER ORGANIZAT ION (PPO) BLUE CHOIC E PREFE RR Apr 13, 2020 [id number] [phone] LYNN,BOOGIE ANDON PATIENT ANTHEM [employer] [place] PREFERRED PROVIDER ORGANIZAT ION (PPO) BLUE CHOIC E PREFE RR Apr 13, 2020 [id number] [phone] BOOGIE PINEDA ANDON PATIENT [employer] [place] PREFERRED PROVIDER ORGANIZAT ION (PPO) BLUE CHOIC E PREFE RR Apr 13, 2020 [id number] [phone] BOOGIE PINEDA PATIENT PRIME THERAPEUTI CS RX PRESCRIPT ION BCBSI L TAYLER Apr 13, 2020 BCBSIL [id number] [phone] BOOGIE PINEDA PATIENT [facility] 2018 [place] RE May 10, 2019 SELECT [id number] BOOGIE PINEDA PATIENT Selected Encounter This section includes the information on record at [place] for the Encounter. Date/Time Encounter Type Encounter Description Reason Provider Source Dec 05, 2023 08:58 PM Outpatient Encounter ADMIN PAT ACTIVTIES (MASNONCT) KODAK MORTON IHValentin Encounter Template Text not used by [place] Plan of Treatment: Future Appointments (+ 6 months) and Future Tests (+/- 45 days) The Plan of Treatment section includes future care activities for the patient from all [place] treatmentfascionhealthities. This section includes future appointments and future orders which are active, pending or scheduled. Future Appointments This section includes appointments that were scheduled to occur 6 months from the date of the Encounter, up to a maximum of 20 appointments. The data comes from all [place] treatment facilities. Appointment Date/Time Appointment Type Appointme nt Facility Name Jan 09, 2024 11:29 AM AMBULATORY - MEDICINE [facility] Jan 09, 2024 03:00 PM AMBULATORY - NONE [facility] Jan 14, 2024 09:00 AM AMBULATORY - MEDICINE [facility] Jan 14, 2024 10:00 AM AMBULATORY - MEDICINE [facility] Jan 26, 2024 01:00 PM AMBULATORY - MEDICINE [facility] Jan 28, 2024 01:45 PM AMBULATORY - REHAB MEDICIN E [facility] Feb 02, 2024 02:00 PM AMBULATORY - PSYCHIATRY [facility] Feb 08, 2024 09:00 AM AMBULATORY - NEUROLOGY [facility] Feb 12, 2024 02:30 PM AMBULATORY - NONE [facility] Feb 17, 2024 01:00 PM AMBULATORY - MEDICINE [facility] Feb 25, 2024 09:30 AM AMBULATORY - MEDICINE [facility] Mar 05, 2024 08:43 AM AMBULATORY - MEDICINE [facility] Mar 16, 2024 10:15 AM AMBULATORY - SURGERY . [facility] Mar 21, 2024 12:14 PM [facility] MED[facility] Apr 01, 2024 10:00 AM AMBULATORY - PSYCHIATRY [facility] Apr 28, 2024 03:00 PM AMBULATORY - MEDICINE [facility] May 05, 2024 11:30 AM AMBULATORY - MEDICINE [facility] May 27, 2024 11:00 AM AMBULATORY - MEDICINE [facility] Lab Results: +/- 30 days of the encounter This section includes the Chemistry and Hematology Lab Results on record with [place] for the patient. Radiology Reports and Pathology Reports are provided separately, in subsequent sections. Lab Results This section contains the Chemistry/Hematology Results that were resulted 30 days before or 30 daysafter the date of the Encounter. Date/Time Source Result Type Result - Unit Interpretation Reference Range Comment Nov 25, 2023 11:00 AM [facility] LIPID PANEL (STL) Specimen Type: PLASMA Comment: No hemolysis noted. Ordering Provider: FRANSISCO MORTON Report Released Date/Time: Nov 25, 2023 10:43 AM Reporting Lab: [facility] [address] [place] [phone] Performing Lab: [facility] [address] [place] [phone] CHOLESTEROL 150 mg/dL 0-200 TRIGLYCERIDE 184 mg/dL H 0-150 CALCULATED LDL 90 mg/dL HDL(New) 23 mg/dL L >40 Nov 25, 2023 11:00 AM [facility] HGA1C Specimen Type: BLOOD No comment entered. Ordering Provider: FRANSISCO MORTON Report Released Date/Time: Nov 25, 2023 10:43 AM Reporting Lab: [facility] [address] [place] [phone] Performing Lab: [facility] [address] [place] [phone] HGA1C 5.7 4.0-6.0 Nov 25, 2023 11:00 AM [facility] COMPREHENSIVE METABOLIC PANEL Specimen Type: PLASMA Comment: No hemolysis noted. Ordering Provider: FRANSISCO MORTON Report Released Date/Time: Nov 25, 2023 10:43 AM Reporting Lab: [facility] [address] [place] [phone] Performing Lab: [address] [address] CREATININE 0.95 mg/dL 0.7-1.3 UREA NITROGEN 10.5 [...] 105.1 >60 Nov 25, 2023 11:00 AM [facility] CBC Specimen Type: BLOOD No comment entered. Ordering Provider: FRANSISCO MORTON Report Released Date/Time: Nov 25, 2023 10:43 AM Reporting Lab: [facility] [address] [place] [phone] Performing Lab: [address] [phone] WBC 4.6 10*3/uL 3.6-11.2 RBC 5.54 10*6/uL [...] 10*3/uL 0.00-0.20 Nov 25, 2023 11:00 AM [facility] VITAMIN D, 25-HYDROXY Specimen Type: SERUM No comment entered. Ordering Provider: FRANSISCO MORTON Report Released Date/Time: Nov 25, 2023 10:43 AM Reporting Lab: [address] [phone] Performing Lab: [address] [phone] VITAMIN D, 25-HYDROXY 37.8 ng/mL 30-96 Social History: Smoking Status (Most current) and Tobacco Use (All prior to encounter date) This section includes the most current, and the historical, smoking and tobacco- related health factors from the [place] facility where the Encounter took place. Current Smoking Status This section includes the most current smoking, or tobacco-related health factor, from the [place] facility where the Encounter took place. Date/Time Current Smoking Status Comment Nicolas allen Feb 26, 2021 03:59 PM [facility] Encounter Notes: All associated encounter notes This section contains the clinical notes associated to the Encounter. Date/Time Encounter Note(s) Provider Source Dec 05, 2023 08:58 PM PHYSICIAN LETTERS: LOCAL TITLE: TEST RESULT GENERAL LETTER ST STANDARD TITLE: PHYSICIAN LETTERS DATE OF NOTE: DEC 05, 2023@20:58 ENTRY DATE: DEC 05, 2023@20:59:02 AUTHOR: KODAK MORTON EXP COSIGNER: URGENCY: STATUS: COMPLETED [address] [address] DEC 05, 2023 JORDYN PINEDA [address] [place], [place] [address] Dear Jordyn Pineda, I would like to update you on your recent test results. LIPID PROFILE - High cholesterol and triglycerides (lipids) are risk factors for heart disease. Your cholesterol should fall between 140 and 200, and your triglycerides levels should be less than or equal to 150. HDL is the good cholesterol and should ideally be greater than 40. LDL is the bad cholesterol and optimal levels should be less than 100 (near optimal is between 100 and 129). TRIGLYCERIDE 184 H mg/dL 11/25/2023 11:00 CHOLESTEROL 150 mg/dL 11/25/2023 11:00 HDL(New) 23 L mg/dL 11/25/2023 11:00 CALCULATED LDL 90 mg/dL 11/25/2023 11:00 These results are abnormal. . Please avoid saturated/animal fat in diet exercise and lose weight HEMOGLOBIN A1C - Gives us information about your diabetes (sugar or glucose) control over the past 3 months. Your target is to keep your A1C below 7 %. HGA1C 5.7 % 11/25/2023 11:00 These readings are within normal limits. CBC - A complete blood count (CBC) gives important information about the kinds and numbers of cells in the blood, especially red blood cells, white blood cells, and platelets. HGB 15.2 g/dL 11/25/2023 11:00 HEMATOCRIT 44.6 % (11/25/23 11:00) PLT 229 10*3/uL 11/25/2023 11:00 WHITE BLOOD COUNT 4.6 10*3/uL (11/25/23 11:00) These readings are within normal limits. CHEM 7 - This is important information about the current status of your kidneys, liver, and electrolyte and acid/base balance as well as of your blood sugar and blood proteins. SODIUM 137 mEq/L 11/25/2023 11:00 POTASSIUM 4.3 mEq/L 11/25/2023 11:00 CHLORIDE 106 mEq/L 11/25/2023 11:00 UREA NITROGEN 10.5 mg/dL 11/25/2023 11:00 CREATININE 0.95 mg/dL 11/25/2023 11:00 CALCIUM 10.0 mg/dL 11/25/2023 11:00 CARBON DIOXIDE 23 mEq/L 11/25/2023 11:00 GLUCOSE 89 mg/dL 11/25/2023 11:00 EGFR (CKD-EPI 2020) 105.1 11/25/2023 11:00 These readings are within normal limits. LIVER FUNCTION PANEL - These are tests for liver function: PROTEIN 9.2 H g/dL 11/25/2023 11:00 ALBUMIN 4.5 g/dL 11/25/2023 11:00 TOTAL BILIRUBIN 0.8 mg/dL 11/25/2023 11:00 ALKALINE PHOSPHATASE 89 U/L 11/25/2023 11:00 AST/SGOT 49 H U/L 11/25/2023 11:00 ALT/SGPT 85 H U/L 11/25/2023 11:00 These results are abnormal. . Above 2 liver enzymes are elevated need to lose weight and exercise Will repeat liver function test remain elevated further workup with ultrasound liver TSH - Thyroid-stimulating hormone (also known as TSH or thyrotropin) is a peptide hormone synthesized and secreted by thyrotrope cells in the anterior pituitary gland, which regulates the endocrine function of the thyroid gland. TSH 3.742 uIU/mL 12/23/2022 09:57 These readings are within normal limits. VITAMIN D - Helps promote the proper utilization of calcium and phosphorus, thereby producing proper bone maintenance. VITAMIN D, 25-HYDROXY 37.8 ng/mL 11/25/2023 11:00 These readings are within normal limits. PLAN Please continue your treatment as we discussed during your visit. If you have any questions please call your case filler. I look forward to seeing you at your next clinic appointment. Thank you for choosing the [facility] for your healthcare. FUTURE APPOINTMENTS: 12/18/2023 08:00 [facility] 12/22/2023 08:30 [facility]PULM PA 1 03/25/2024 15:30 [facility]WSH VVC PACT B5 PCP Sincerely, Kodak Morton MD Staff Physician JORDYN PINEDA,KODAK Mauricio [facility]
--- OUTSIDE RECORDS SUMMARY | 2024-03-31 00:59 | XMS_ITS | Encounter Summary ---
Author Name [facility] [place] [facility] [place] [facility] [place] Address [address] [place] [address] Care Team Providers Care Puddler Pile Driving Name Role Phone KODAK MORTON Primary Care [...] CHOIC E PREFE RR Apr 13, 2020 [id number] [phone] BOOGIE PINEDA ANDON PATIENT ANTHEM [employer] [place] PREFERRED PROVIDER ORGANIZAT ION (PPO) BLUE CHOIC E PREFE RR Apr 13, 2020 [id number] [phone] BOOGIE PINEDA ANDON PATIENT ANTHEM [employer] [place] PREFERRED PROVIDER ORGANIZAT ION (PPO) BLUE CHOIC E PREFE RR Apr 13, 2020 [id number] [phone] STEPHANIE PINEDAON PATIENT [employer] [place] PREFERRED PROVIDER ORGANIZAT ION (PPO) BLUE CHOIC E PREFE RR Apr 13, 2020 [id number] [phone] BOOGIE PINEDA PATIENT PRIME THERAPEUTI CS RX PRESCRIPT ION BCBSI L TAYLER Apr 13, 2020 BCBSIL [id number] [phone] BOOGEI PINEDA PATIENT [facility] [address] [place] May 10, 2019 SELECT [id number] BOOGIE PINEDA PATIENT Selected Encounter This section includes the information on record at [place] for the Encounter. Date/Time Encounter Type Encounter Description Reason Pro vider Source Dec 11, 2023 11:01 AM Outpatient Encounter PULMONARY FUNCTION IHE Encounter Template Text not used by [place] Plan of Treatment: Future Appointments (+ 6 months) and Future Tests (+/- 45 days) The Plan of Treatment section includes future care activities for the patient from all [place] treatmentfacilities. This section includes future appointments and future orders which are active, pending or scheduled. Future Appointments This section includes appointments that were scheduled to occur 6 months from the date of the Encounter, up to a maximum of 20 appointments. The data comes from all [place] treatment facilities. Appointment Date/Time Appointment Type Appointme nt Facility Name Jan 09, 2024 11:29 AM AMBULATORY - MEDICINE [facility] Jan 09, 2024 03:00 PM AMBULATORY - NONE [facility] Jan 14, 2024 09:00 AM AMBULATORY - MEDICINE [facility] Jan 14, 2024 10:00 AM AMBULATORY - MEDICINE [facility] Jan 26, 2024 01:00 PM AMBULATORY - MEDICINE [facility] Jan 28, 2024 01:45 PM AMBULATORY - REHAB MEDICIN E [facility] Feb 02, 2024 02:00 PM AMBULATORY - PSYCHIATRY [facility] Feb 08, 2024 09:00 AM AMBULATORY - NEUROLOGY [facility] Feb 12, 2024 02:30 PM AMBULATORY - NONE [facility] Feb 17, 2024 01:00 PM AMBULATORY - MEDICINE [facility] Feb 25, 2024 09:30 AM AMBULATORY - MEDICINE [facility] Mar 05, 2024 08:43 AM AMBULATORY - MEDICINE [facility] Mar 16, 2024 10:15 AM AMBULATORY - SURGERY [facility] Mar 21, 2024 12:14 PM AMBULATORY - MEDICINE [facility] Apr 01, 2024 10:00 AM AMBULATORY - PSYCHIATRY [facility] Apr 28, 2024 03:00 PM AMBULATORY - MEDICINE [facility] May 05, 2024 11:30 AM AMBULATORY - MEDICINE [facility] May 27, 2024 11:00 AM AMBULATORY - MEDICINE [facility] Lab Results: +/- 30 days of the encounter This section includes the Chemistry and Hematology Lab Results on record with [place] for the patient. Radiology Reports and Pathology Reports are provided separately, in subsequent sections. Lab Results This section contains the Chemistry/Hematology Results that were resulted 30 days before or 30 daysafter the date of the Encounter. Date/Time Source Result Type Result - Unit Interpretation Reference Range Comment Nov 25, 2023 11:00 AM [facility] LIPID PANEL (STL) Specimen Type: PLASMA Comment: No hemolysis noted. Ordering Provider: FRANSISCO MORTON Report Released Date/Time: Nov 25, 2023 10:43 AM Reporting Lab: [facility] [address] [facility] [address] Performing Lab: [facility] [address] [place] [phone] CHOLESTEROL 150 mg/dL 0-200 TRIGLYCERIDE 184 mg/dL H 0-150 CALCULATED LDL 90 mg/dL HDL(New) 23 mg/dL L >40 Nov 25, 2023 11:00 AM [facility] COMPREHENSIVE METABOLIC PANEL Specimen Type: PLASMA Comment: No hemolysis noted. Ordering Provider: FRANSISCO MORTON Report Released Date/Time: Nov 25, 2023 10:43 AM Reporting Lab: [facility] [address] [facility] [address] Performing Lab: [facility] [address] [place] [phone] CREATININE 0.95 mg/dL 0.7-1.3 UREA NITROGEN 10.5 [...] 105.1 >60 Nov 25, 2023 11:00 AM [facility] HGA1C Specimen Type: BLOOD No comment entered. Ordering Provider: FRANSISCO MORTON Report Released Date/Time: Nov 25, 2023 10:43 AM Reporting Lab: [facility] [address] [place] [phone] Performing Lab: [address] [address] HGA1C 5.7 4.0-6.0 Nov 25, 2023 11:00 AM [facility] CBC Specimen Type: BLOOD No comment entered. Ordering Provider: FRANSISCO MORTON Report Released Date/Time: Nov 25, 2023 10:43 AM Reporting Lab: [facility] [address] [place] [phone] Performing Lab: [facility] [address] [place] [phone] WBC 4.6 10*3/uL 3.6-11.2 RBC 5.54 10*6/uL [...] 10*3/uL 0.00-0.20 Nov 25, 2023 11:00 AM [facility] VITAMIN D, 25-HYDROXY Specimen Type: SERUM No comment entered. Ordering Provider: FRANSISCO MORTON Report Released Date/Time: Nov 25, 2023 10:43 AM Reporting Lab: [facility] [address] [facility] [address] Performing Lab: [facility] [address] [facility] [phone] VITAMIN D, 25-HYDROXY 37.8 ng/mL 30-96 Social History: Smoking Status (Most current) and Tobacco Use (All prior to encounter date) This section includes the most current, and the historical, smoking and tobacco- related health factors from the [place] facility where the Encounter took place. Current Smoking Status This section includes the most current smoking, or tobacco-related health factor, from the [place] facility where the Encounter took place. Date/Time Current Smoking Status Comment Facil ity Feb 26, 2021 03:59 PM [place]-TOBACCO NEVER USED [facility] Radiology Reports: +/- 30 days of [...] the Encounter. The data comes from all [place] treatment facilities. Date/Time Radiology Report Provider Source Jan 09, 2024 12:[address] CERVICAL SPINE W/O CONT: JORDYN PINEDA [id number] -[id number] M Exm Date: JAN 09, 2024@12:18 Req Phys: BING ORTIZ Loc: [facility]-EMERGENCY DEPT 2ND SHIFT (R Img Loc: [facility]-CT IMAGING [facility] Service: [facility], [address] [place] [address] (Case [id number] COMPLETE) CT CERVICAL SPINE W/O CONT (CT Detailed) CPT:65468 Reason for Study: Neck pain, bilateral arm pain/weakness Clinical History: Responsible Attending: Yovany Attending Contact Number: [phone] Resident Contact Number: Neck pain, bilateral arm pain/weakness Allergies listed in CPRS chart: SHELLFISH Creatinine/eGFR: STL EGFR (within one year). CREATININE 0.95 mg/dL (11/25/23 11:00) Wt: 220.4 lb [99.97 kg] (11/25/2023 10:03) History of: Renal failure, chronic or acute renal disease: NO Report Status: Verified Date Reported: JAN 09, 2024 Date Verified: JAN 09, 2024 Drill Press Tender E-Sig: Report: CT CERVICAL SPINE W/O CONT Clinical History: Neck pain, bilateral arm pain/weakness Comparison: No priors available Technique: Noncontrast CT of the cervical spine was performed. The study was protocoled and supervised at the local [place] facility. 1116 images were subsequently received by the [place] National Teleradiology Program (NTP) for interpretation. Total DLP (mGy*cm): Not available. FINDINGS: Bony structures: No fracture seen. Minimal degenerative changes throughout. Alignment: Straightening of the cervical spine which may be positional. No subluxation or dislocation seen. Prevertebral soft tissues: Unremarkable. Spinal canal: No bony spinal canal or high-grade neuroforaminal stenosis. Lung apices: Visualized portions clear. Impression: No acute fracture or malalignment. If there is persistent concern for radiculopathy, consider evaluation with dedicated MRI. READING PHYSICIAN: Ifrah Guzmán M.D. -[phone] 01/09/2024 11:23 PDT [facility] National Teleradiology Program [phone] (For Medical Practitioner Use Only) Attention Patients / Veterans: If you have questions or concerns about these test results, please contact your ordering provider or primary care team. Primary Interpreting Staff: RADIOLOGY,OUTSIDE SERVICE, Staff Physician / RADIOLOGY,OUTSIDE SERVICE [facility] Encounter Notes: All associated encounter notes This section contains the clinical notes associated to the Encounter. Date/Time Encounter Note(s) Provider Source Dec 11, 2023 11:01 AM ADMINISTRATIVE NOT E: LOCAL TITLE: ADMINISTRATIVE STL STANDARD TITLE: ADMINISTRATIVE NOTE DATE OF NOTE: DEC 11, 2023@11:01 ENTRY DATE: DEC 11, 2023@11:02:09 AUTHOR: RUY YANG EXP COSIGNER: URGENCY: STATUS: COMPLETED SUBJECT: NO CONTACT LETTER Dec 11, 2023 Jordyn Pineda [address] [place] [id number] Dear Jordyn Pineda, You have been referred for a consultation to the PULMONARY FUNCTION TEST (PFT) OUTPT [facility] at the [facility]. We would like to schedule a consult appointment with you. If we do not hear from you by Dec 25, 2023, we will assume that you are not interested in having the consultation and the referral will be discontinued. Please call our office at [phone] between 8 am and 4 pm Thursday through Thursday. If you received this letter after you have spoken to us, please disregard this letter. Sincerely yours, /nataliia/ RUY YANG Advanced Leather Worker Signed: 12/11/2023 11:02 RUY YNAG [facility]
--- OUTSIDE RECORDS SUMMARY | 2024-03-31 00:59 | XMS_ITS | Encounter Summary ---
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 Name Role Phone KODAK MORTON Primary Care [...] CHOIC E PREFE RR Apr 13, 2020 [id number] [phone] BOOGIE BAILEY ANDON PATIENT ANTHEM [place] PREFERRED PROVIDER ORGANIZAT ION (PPO) BLUE CHOIC E PREFE RR Apr 13, 2020 [id number] [phone] LYNN,BOOGIE ANDON PATIENT ANTHEM [employer] PREFERRED PROVIDER ORGANIZAT ION (PPO) BLUE CHOIC E PREFE RR Apr 13, 2020 [id number] [phone] BOOGIE BAILEY ANDON PATIENT [place] PREFERRED PROVIDER ORGANIZAT ION (PPO) BLUE CHOIC E PREFE RR Apr 13, 2020 [id number] [phone] BOOGIE BAILEY PATIENT PRIME THERAPEUTI CS RX PRESCRIPT ION BCBSI L T[place] Apr 13, 2020 BCBSIL [id number] [phone] BOOGIE BAILEY PATIENT [facility] 2018 TRICA RE May 10, 2019 SELECT [id number] 22 BOOGIE BAILEY PATIENT Selected Encounter This section includes the information on record at [place] for the Encounter. Date/Time Encounter Type Encounter Description Reason Provider Source Dec 01, 2023 09:28 AM HC PRO PHONE CALL 5-10 MIN TELEPHONE/ANCILLA RY ICD-10-CM G47.00 Insomnia, unspecified CASSANDRA,ARUNA L IHE Encounter Template Text not used by [place] Assessments - Encounter Diagnoses This section includes the primary and secondary diagnoses documented for the Encounter. Date/Time Primary/Secondary Diagnosis Diagnosis Name Provider Source Dec 01, 2023 09:28 AM PRIMARY Insomnia, unspecified LEFTY TRUJILLONA L [facility] Dec 01, 2023 09:28 AM SECONDARY Major depressive disorder, recurrent, moderate LEFTY TRUJILLONA Kelsie [facility] Plan of Treatment: Future Appointments (+ 6 months) and Future Tests (+/- 45 days) The Plan of Treatment section includes future care activities for the [facility] from [facility] [place] [facility] This section includes future appointments and future orders which are active, pending or scheduled. Future Appointments This section includes appointments that were scheduled to occur 6 months from the date of the Encounter, up to a maximum of 20 appointments. The data comes from all [place] treatment facilities. Appointment Date/Time Appointment Type Appointme nt Facility Name Jan 09, 2024 11:29 AM AMBULATORY - MEDICINE [facility] Jan 09, 2024 03:00 PM AMBULATORY - NONE [facility] Jan 14, 2024 09:00 AM AMBULATORY - MEDICINE [facility] Jan 14, 2024 10:00 AM AMBULATORY - MEDICINE [facility] Jan 26, 2024 01:00 PM AMBULATORY - MEDICINE [facility] Jan 28, 2024 01:45 PM AMBULATORY - REHAB MEDICIN E [facility] Feb 02, 2024 02:00 PM AMBULATORY - PSYCHIATRY [facility] Feb 08, 2024 09:00 AM AMBULATORY - NEUROLOGY [facility] Feb 12, 2024 02:30 PM AMBULATORY - NONE [facility] Feb 17, 2024 01:00 PM AMBULATORY - MEDICINE [facility] Feb 25, 2024 09:30 AM AMBULATORY - MEDICINE [facility] Mar 05, 2024 08:43 AM AMBULATORY - MEDICINE [facility] Mar 16, 2024 10:15 AM AMBULATORY - SURGERY [facility] Mar 21, 2024 12:14 PM AMBULATORY - MEDICINE [facility] Apr 01, 2024 10:00 AM AMBULATORY - PSYCHIATRY [facility] Apr 28, 2024 03:00 PM AMBULATORY - MEDICINE [facility] May 05, 2024 11:30 AM AMBULATORY - MEDICINE [facility] May 27, 2024 11:00 AM AMBULATORY - MEDICINE [facility] Lab Results: +/- 30 days of the encounter This section includes the Chemistry and Hematology Lab Results on record with [place] for the patient. Radiology Reports and Pathology Reports are provided separately, in subsequent sections. Lab Results This section contains the Chemistry/Hematology Results that were resulted 30 days before or 30 daysafter the date of the Encounter. Date/Time Source Result Type Result - Unit Interpretation Reference Range Comment Nov 25, 2023 11:00 AM [facility] LIPID PANEL (STL) Specimen Type: PLASMA Comment: No hemolysis noted. Ordering Provider: FRANSISCO MORTON Report Released Date/Time: Nov 25, 2023 10:43 AM Reporting Lab: [facility] [address] [facility] [address] Performing Lab: [facility] [address] [facility] [address] CHOLESTEROL 150 mg/dL 0-200 TRIGLYCERIDE 184 mg/dL H 0-150 CALCULATED LDL 90 mg/dL HDL(New) 23 mg/dL L >40 Nov 25, 2023 11:00 AM [facility] COMPREHENSIVE METABOLIC PANEL Specimen Type: PLASMA Comment: No hemolysis noted. Ordering Provider: FRANSISCO MORTON Report Released Date/Time: Nov 25, 2023 10:43 AM Reporting Lab: [facility] [address] [facility] [address] Performing Lab: [address] [address] CREATININE 0.95 mg/dL 0.7-1.3 UREA NITROGEN 10.5 [...] 105.1 >60 Nov 25, 2023 11:00 AM [facility] HGA1C Specimen Type: BLOOD No comment entered. Ordering Provider: FRANSISCO MORTON Report Released Date/Time: Nov 25, 2023 10:43 AM Reporting Lab: [facility] [address] [place] [phone] Performing Lab: [address] [address] HGA1C 5.7 4.0-6.0 Nov 25, 2023 11:00 AM [facility] CBC Specimen Type: BLOOD No comment entered. Ordering Provider: FRANSISCO MORTON Report Released Date/Time: Nov 25, 2023 10:43 AM Reporting Lab: [address] [address] Performing Lab: [address] [address] WBC 4.6 10*3/uL 3.6-11.2 RBC 5.54 10*6/uL [...] 10*3/uL 0.00-0.20 Nov 25, 2023 11:00 AM [facility] VITAMIN D, 25-HYDROXY Specimen Type: SERUM No comment entered. Ordering Provider: FRANSISCO MORTON Report Released Date/Time: Nov 25, 2023 10:43 AM Reporting Lab: [facility] [address] [facility] [address] Performing Lab: [facility] [address] [facility] [address] VITAMIN D, 25-HYDROXY 37.8 ng/mL 30-96 Social History: Smoking Status (Most current) and Tobacco Use (All prior to encounter date) This section includes the most current, and the historical, smoking and tobacco- related health factors from the [place] facility where the Encounter took place. Current Smoking Status This section includes the most current smoking, or tobacco-related health factor, from the [place] facility where the Encounter took place. Date/Time Current Smoking Status Comment Nicolas allen Feb 26, 2021 03:59 PM VA-TOBACCO NEVER USED [facility] Encounter Notes: All associated encounter notes This section contains the clinical notes associated to the Encounter. Date/Time Encounter Note(s) Provider Source Dec 01, 2023 09:40 AM CAREGIVER CERTIFIC ATE: LOCAL TITLE: CSP TELEPHONE NOTE STANDARD TITLE: CAREGIVER CERTIFICATE DATE OF NOTE: DEC 01, 2023@09:40 ENTRY DATE: DEC 01, 2023@09:40:46 AUTHOR: ARUNA TRUJILLO EXP COSIGNER: URGENCY: STATUS: COMPLETED CAREGIVER SUPPORT TELEPHONE NOTE DATE OF TELEPHONE CONTACT: 12/01/23 LENGTH OF CALL: 7 mins DIAGNOSIS: Insomnia; Major depressive disorder INDIVIDUAL INVOLVED IN CARE: Yes, per Caregiver applicant report during [employer] application process. PURPOSE OF CONTACT: DEEPAK SW contacted Caregiver Applicant after unsuccessful phone attempts to reach [place] this morning. OUTCOME: DEEPAK SW spoke with Caregiver Applicant regarding [employer] application process. She reports they are electing to withdraw from [employer] application process at this time. CSP SW provided overview of ability to appeal as well as ability to reapply to [employer] at a later time. CSP SW provided education on available mental health resources, including [facility]. Caregiver Applicant requested information be emailed to them. ASSESSMENT: Caregiver was actively engaged in conversation via phone. Caregiver verbalized understanding of information and education provided. No imminent risks or safety concerns were identified during call. PLAN: DEEPAK SW to email t Center information. DEEPAK SW to process withdrawal from [employer] application process. DEEPAK SW will remain available for Caregiver support as needed. DEEPAK SW addressed all questions and stated needs during this call. Caregiver was invited to call back with additional questions, for support, or assistance navigating the [place] health care system. [facility] contact information provided. Resources provided: [facility] information [id number] /nataliia/ ARUNA TRUJILLO Gear Hobber Operator, Caregiver Support Program Signed: 12/01/2023 09:54 ARUNA TRUJILLO [facility]
--- OUTSIDE RECORDS SUMMARY | 2024-03-31 00:59 | XMS_ITS | Encounter Summary ---
Author Name [facility] [place] [facility] [place] [facility] [place] Address [address] [place] [address] Care Team Providers Care Senior Accountant Analyst Name Role Phone KODAK MORTON Primary Care [...] CHOIC E PREFE RR Apr 13, 2020 [id number] [phone] BOOGIE BAILEY ANDON PATIENT ANTHEM [place] PREFERRED PROVIDER ORGANIZAT ION (PPO) BLUE CHOIC E PREFE RR Apr 13, 2020 [id number] [phone] BOOGIE BAILEY ANDON PATIENT ANTHEM [place] PREFERRED PROVIDER ORGANIZAT ION (PPO) BLUE CHOIC E PREFE RR Apr 13, 2020 [id number] [phone] BOOGIE BAILEY ANDCARLA PATIENT [place] PREFERRED PROVIDER ORGANIZAT ION (PPO) BLUE CHOIC E PREFE RR Apr 13, 2020 [id number] [phone] BOOGIE BAILEY PATIENT PRIME THERAPEUTI CS RX PRESCRIPT ION BCBSI L TAYLER Apr 13, 2020 BCBSIL [id number] [phone] BOOGIE BAILEY PATIENT [facility] 2018 TRICA RE May 10, 2019 SELECT [id number] 22 BOOGIE BAILEY PATIENT Selected Encounter This section includes the information [place] for the Encounter. Date/Time Encounter Type Encounter Description Reason Pro vider Source Dec 07, 2023 10:29 PM Outpatient Encounter EVENT (HISTORICAL) IHE Encounter Template Text not used by [place] [...] 09, 2024 11:29 AM AMBULATORY - MEDICINE [facility] Jan 09, 2024 03:00 PM AMBULATORY - NONE [facility] Jan 14, 2024 09:00 AM AMBULATORY - MEDICINE [facility] Jan 14, 2024 10:00 AM AMBULATORY - MEDICINE [facility] Jan 26, 2024 01:00 PM AMBULATORY - MEDICINE [facility] Jan 28, 2024 01:45 PM AMBULATORY - REHAB MEDICIN E [facility] Feb 02, 2024 02:00 PM AMBULATORY - PSYCHIATRY [facility] Feb 08, 2024 09:00 AM AMBULATORY - NEUROLOGY [facility] Feb 12, 2024 02:30 PM AMBULATORY - NONE [facility] Feb 17, 2024 01:00 PM AMBULATORY - MEDICINE [facility] Feb 25, 2024 09:30 AM AMBULATORY - MEDICINE [facility] Mar 05, 2024 08:43 AM AMBULATORY - MEDICINE [facility] Mar 16, 2024 10:15 AM AMBULATORY - SURGERY [facility] Mar 21, 2024 12:14 PM [facility] Apr 01, 2024 10:00 AM AMBULATORY - PSYCHIATRY [facility] Apr 28, 2024 03:00 PM AMBULATORY - MEDICINE [facility] May 05, 2024 11:30 AM AMBULATORY - MEDICINE [facility] May 27, 2024 11:00 AM AMBULATORY - MEDICINE [facility] Lab Results: +/- 30 days of [...] Range Comment Nov 25, 2023 11:00 AM [facility] COMPREHENSIVE METABOLIC PANEL Specimen Type: PLASMA Comment: No hemolysis noted. Ordering Provider: FRANSISCO MORTON Report Released Date/Time: Nov 25, 2023 10:43 AM Reporting Lab: [facility] [address] [facility] [address] Performing Lab: [facility] [address] [place] [phone] CREATININE 0.95 mg/dL 0.7-1.3 UREA NITROGEN 10.5 [...] 105.1 >60 Nov 25, 2023 11:00 AM [facility] LIPID PANEL (STL) Specimen Type: PLASMA Comment: No hemolysis noted. Ordering Provider: FRANSISCO MORTON Report Released Date/Time: Nov 25, 2023 10:43 AM Reporting Lab: [facility] [address] [place], [place] [phone] Performing Lab: [address] [address] CHOLESTEROL 150 mg/dL 0-200 TRIGLYCERIDE 184 mg/dL H 0-150 CALCULATED LDL 90 mg/dL HDL(New) 23 mg/dL L >40 Nov 25, 2023 11:00 AM [facility] HGA1C Specimen Type: BLOOD No comment entered. Ordering Provider: FRANSISCO MORTON Report Released Date/Time: Nov 25, 2023 10:43 AM Reporting Lab: [place] [address] Performing Lab: [place] [phone] HGA1C 5.7 4.0-6.0 Nov 25, 2023 11:00 AM [facility] CBC Specimen Type: BLOOD No comment entered. Ordering Provider: FRANSISCO MORTON Report Released Date/Time: Nov 25, 2023 10:43 AM Reporting Lab: [address] [address] Performing Lab: [address] [address] WBC 4.6 10*3/uL 3.6-11.2 RBC 5.54 10*6/uL [...] 10*3/uL 0.00-0.20 Nov 25, 2023 11:00 AM [facility] VITAMIN D, 25-HYDROXY Specimen Type: SERUM No comment entered. Ordering Provider: FRANSISCO MORTON Report Released Date/Time: Nov 25, 2023 10:43 AM Reporting Lab: [facility] [address] [facility] [address] Performing Lab: [facility] [address] [facility] [address] VITAMIN D, 25-HYDROXY 37.8 ng/mL 30- Social [...] 26, 2021 03:59 PM VA-TOBACCO NEVER USED [facility] Encounter Notes: All associated encounter notes This section contains the clinical notes associated to the Encounter. Date/Time Encounter Note(s) Provider Source Dec 11, 2023 08:48 AM ADDENDUM: LOCAL TITLE: Addendum STANDARD TITLE: ADDENDUM DATE OF NOTE: DEC 11, 2023@08:48:42 ENTRY DATE: DEC 11, 2023@08:48:43 AUTHOR: ATTILA DYE EXP COSIGNER: URGENCY: STATUS: COMPLETED note vet contacted [place] provider and requested service through [place]- consult is in process /nataliia/ Attila Dye, Ph.D. Clinical Psychologist Signed: 12/11/2023 08:49 Receipt Acknowledged By: 12/14/2023 16:41 /nataliia/ Christel Garcia M.D. STAFF PHYSICIAN, PSYCHIATRY 12/11/2023 12:56 /nataliia/ Mirian Noel Psy.D Marriage and Family Therapist, GEARRD 58 12/21/2023 16:30 /nataliia/ TOMAS CHACKO advanced emergency medical technician === --- Original Document --- 12/07/23 SECURE MESSAGING: ------Original Message ------ Sent: 12/07/2023 09:29 AM ET From: TOMAS CHACKO To: JORDYN BAILEY Subject: Appointment:Appointment Inquiry Hello! I have sent your referral to the following provider. Please call [phone] or respond to this message if you are opposed, or if you prefer another provider. Thank you! [facility] [place] [phone] Tomas Chacko Advanced Unitizer /luis CHACKO advanced emergency medical technician Signed: 12/07/2023 08:29 ATTILA DYE [facility] Dec 07, 2023 08:29 AM [facility] DIALOG NOTE: LOCAL TITLE: SECURE MESSAGING STANDARD TITLE: [facility] DIALOG NOTE DATE OF NOTE: DEC 07, 2023@08:29 ENTRY DATE: DEC 07, 2023@08:29:35 AUTHOR: TOMAS CHACKO EXP COSIGNER: URGENCY: STATUS: COMPLETED SECURE MESSAGING Has ADDENDA ------Original Message ------ Sent: 12/07/2023 09:29 AM ET From: TOMAS CHACKO To: JORDYN BAILEY Subject: Appointment:Appointment Inquiry Hello! I have sent your referral to the following provider. Please call [phone] or respond to this message if you are opposed, or if you prefer another provider. Thank you! [facility] [address] [place] [address] Tomas Chacko Advanced Unitizer /nataliia/ TOMAS CHACKO advanced emergency medical technician Signed: 12/07/2023 08:29 12/11/2023 ADDENDUM STATUS: COMPLETED note vet contacted va provider and requested service through va- consult is in process /nataliia/ Attila Dye, Ph.D. Clinical Psychologist Signed: 12/11/2023 08:49 Receipt Acknowledged By: * AWAITING SIGNATURE * CHRISTEL GARCIA * AWAITING SIGNATURE * MIRIAN NOEL * AWAITING SIGNATURE * TOMAS CHACKO IVY A [facility]
--- OUTSIDE RECORDS SUMMARY | 2024-03-31 00:59 | XMS_ITS | Encounter Summary ---
Author Name [facility] [place] [facility] [place] Address [address] [place] [address] Care Team Providers Care Transformation Manager Name Role Phone KODAK MORTON Primary [...] CHOIC E PREFE RR Apr 13, 2020 [id number] [phone] BOOGIE PINEDA ANDON PATIENT [employer] [employer] [place] PREFERRED PROVIDER ORGANIZAT ION (PPO) BLUE CHOIC E PREFE RR Apr 13, 2020 [id number] [phone] LYNN,BOOGIE ANDON PATIENT [employer] [employer] [place] PREFERRED PROVIDER ORGANIZAT ION (PPO) BLUE CHOIC E PREFE RR Apr 13, 2020 [id number] [phone] BOOGIE PINEDA ANDON PATIENT [employer] [place] PREFERRED PROVIDER ORGANIZAT ION (PPO) BLUE CHOIC E PREFE RR Apr 13, 2020 [id number] [phone] BOOGIE PINEDA PATIENT PRIME THERAPEUTI CS RX PRESCRIPT ION BCBSI L [place] Apr 13, 2020 BCBSIL [id number] [phone] BOOGIE PINEDA PATIENT [facility] 2018 TRICA RE May 10, 2019 SELECT [id number] 22 BOOGIE PINEDA PATIENT Selected Encounter This section includes the information on record at [place] for the Encounter. Date/Time Encounter Type Encounter Description Reason Provider Source Dec 01, 2023 09:28 AM Outpatient Encounter ADMIN PAT ACTIVTIES (MASNONCT) ARUNA TRUJILLO Valentin Encounter Template Text not used by [place] Plan of Treatment: Future Appointments (+ 6 months) and Future Tests (+/- 45 days) The Plan of Treatment section includes future care activities for the patient from all [place] [facility] This section includes future appointments and future [...] 09, 2024 11:29 AM AMBULATORY - MEDICINE [facility] Jan 09, 2024 03:00 PM AMBULATORY - NONE [facility] Jan 14, 2024 09:00 AM AMBULATORY - MEDICINE [facility] Jan 14, 2024 10:00 AM AMBULATORY - MEDICINE [facility] Jan 26, 2024 01:00 PM AMBULATORY - MEDICINE [facility] Jan 28, 2024 01:45 PM AMBULATORY - REHAB MEDICIN E [facility] Feb 02, 2024 02:00 PM AMBULATORY - PSYCHIATRY [facility] Feb 08, 2024 09:00 AM AMBULATORY - NEUROLOGY [facility] Feb 12, 2024 02:30 PM AMBULATORY - NONE [facility] Feb 17, 2024 01:00 PM AMBULATORY - MEDICINE [facility] Feb 25, 2024 09:30 AM AMBULATORY - MEDICINE [facility] Mar 05, 2024 08:43 AM AMBULATORY - MEDICINE [facility] Mar 16, 2024 10:15 AM AMBULATORY - SURGERY . Kelsie CHAVEZ [facility] Mar 21, 2024 12:14 PM AMBULATORY - MEDICINE [facility] Apr 01, 2024 10:00 AM AMBULATORY - PSYCHIATRY [facility] Apr 28, 2024 03:00 PM AMBULATORY - MEDICINE [facility] May 05, 2024 11:30 AM AMBULATORY - MEDICINE [facility] May 27, 2024 11:00 AM AMBULATORY - MEDICINE [facility] Lab Results: +/- 30 days of the encounter This section includes the Chemistry and Hematology Lab Results on record with [place] for the patient. Radiology Reports and Pathology Reports are provided separately, in subsequent sections. Lab Results This section contains the Chemistry/Hematology Results that were resulted 30 days before or 30 daysafter the date of the Encounter. Date/Time Source Result Type Result - Unit Interpretation Reference Range Comment Nov 25, 2023 11:00 AM [facility] LIPID PANEL (STL) Specimen Type: PLASMA Comment: No hemolysis noted. Ordering Provider: FRANSISCO MORTON Report Released Date/Time: Nov 25, 2023 10:43 AM Reporting Lab: [facility] [address] [place] [phone] Performing Lab: [facility] [address] [place] [phone] CHOLESTEROL 150 mg/dL 0-200 TRIGLYCERIDE 184 mg/dL H 0-150 CALCULATED LDL 90 mg/dL HDL(New) 23 mg/dL L >40 Nov 25, 2023 11:00 AM [facility] COMPREHENSIVE METABOLIC PANEL Specimen Type: PLASMA Comment: No hemolysis noted. Ordering Provider: FRANSISCO MORTON Report Released Date/Time: Nov 25, 2023 10:43 AM Reporting Lab: [facility] [address] [place] [phone] Performing Lab: [facility] [address] [place] [phone] CREATININE 0.95 mg/dL 0.7-1.3 UREA NITROGEN 10.5 [...] 105.1 >60 Nov 25, 2023 11:00 AM [facility] HGA1C Specimen Type: BLOOD No comment entered. Ordering Provider: FRANSISCO MORTON Report Released Date/Time: Nov 25, 2023 10:43 AM Reporting Lab: [facility] [address] [place] [phone] Performing Lab: [address] [phone] HGA1C 5.7 4.0-6.0 Nov 25, 2023 11:00 AM [facility] VITAMIN D, 25-HYDROXY Specimen Type: SERUM No comment entered. Ordering Provider: FRANSISCO MORTON Report Released Date/Time: Nov 25, 2023 10:43 AM Reporting Lab: [facility] [address] [place] [phone] Performing Lab: [address] [phone] VITAMIN D, 25-HYDROXY 37.8 ng/mL 30-96 Nov 25, 2023 11:00 AM [facility] CBC Specimen Type: BLOOD No comment entered. Ordering Provider: FRANSISCO MORTON Report Released Date/Time: Nov 25, 2023 10:43 AM Reporting Lab: [facility] [address] [place] [phone] Performing Lab: [address] [phone] WBC 4.6 10*3/uL 3.6-11.2 RBC 5.54 10*6/uL [...] 26, 2021 03:59 PM VA-TOBACCO NEVER USED [facility] Encounter Notes: All associated encounter notes This section contains the clinical notes associated to the Encounter. Date/Time Encounter Note(s) Provider Source Dec 01, 2023 09:57 AM CAREGIVER CERTIFIC ATE: LOCAL TITLE: CSP DENIAL NOTE STANDARD TITLE: CAREGIVER CERTIFICATE DATE OF NOTE: DEC 01, 2023@09:57 ENTRY DATE: DEC 01, 2023@09:57:46 AUTHOR: ARUNA TRUJILLO EXP COSIGNER: URGENCY: STATUS: COMPLETED CSP DENIAL NOTE Has ADDENDA Caregiver Support Program Denial Note The individual being denied from the Program of Comprehensive Assistance for Family Caregivers is the : JORDYN PINEDA Name of Primary Family Caregiver: Ahmet Wisdom Reason(s) for denial: - [place]/Caregiver withdrew application Denial date: 12/01/2023 Staff provided/attempted verbal notification of denial on: 12/01/2023 Notification letter was mailed on: 12/02/2023 [facility] staff provided the following document(s): - CSP [place] Contact Information - Program of General Caregiver Support Services - [place] and/or Community Resources - [employer] Eligibility Criteria Fact Sheet - [place] Caregiver Support Program [employer] Appeal FAQs - [place] Form 10-305 Your Rights to Seek Further Review of [employer] Decisions CSP staff provided information on the following resources and supports: - [place] Caregiver Support Group/Programming - t [facility] (Readjustment Counseling) [id number] /nataliia/ ARUNA TRUJILLO Ship Scaler, Caregiver Support Program Signed: 12/01/2023 09:59 Receipt Acknowledged By: 12/01/2023 13:41 /nataliia/ ZAID [facility] 12/01/2023 ADDENDUM STATUS: COMPLETED [employer] denial due to withdrawn application letter for Jordyn Pineda and CG Ahmet Pineda uploaded into [employer]. Letter for Auth. Rep Kevin Gonzales uploaded into Lisa /nataliia/ [facility] Signed: 12/01/2023 13:44 ARUNA TRUJILLO [facility]
--- OUTSIDE RECORDS SUMMARY | 2024-03-31 00:59 | XMS_ITS | Encounter Summary ---
Author Name [facility] [place] [facility] [place] [facility] [place] Address [address] [place] [address] Care Team Providers Care Police Records Clerk Name Role Phone KODAK MORTON Primary Care [...] CHOIC E PREFE RR Apr 13, 2020 [id number] [phone] BOOGIE BAILEY ANDON PATIENT [place] [employer] [place] PREFERRED PROVIDER ORGANIZAT ION (PPO) BLUE CHOIC E PREFE RR Apr 13, 2020 [id number] [phone] BOOGIE BAILEY ANDON PATIENT [place] [employer] [place] PREFERRED PROVIDER ORGANIZAT ION (PPO) BLUE CHOIC E PREFE RR Apr 13, 2020 [id number] [phone] BOOGIE BAILEY ANDCARLA PATIENT [employer] PREFERRED PROVIDER ORGANIZAT ION (PPO) BLUE CHOIC E PREFE RR Apr 13, 2020 [id number] [phone] BOOGIE BAILEY PATIENT PRIME THERAPEUTI CS RX PRESCRIPT ION BCBSI L [place] Apr 13, 2020 BCBSIL [id number] [phone] BOOGIE BAILEY PATIENT [facility] 2018 [address] RE May 10, 2019 [facility] [id number] 22 BOOGIE BAILEY PATIENT Selected Encounter This section includes the information on record at [place] for the Encounter. Date/Time Encounter Type Encounter Description Reason Provider Source Apr 02, 2023 03:54 PM Outpatient Encounter PRIMARY CARE/MEDICINE CARINA MARQUEZ Encounter Template Text not used by [place] Plan of Treatment: Future Appointments (+ 6 months) and Future Tests (+/- 45 days) The Plan of Treatment section includes future care activities for the patient from all [place] treatmentfacilities. This section includes future appointments and future orders which are active, pending or scheduled. Future Appointments This section includes appointments that were scheduled to occur 6 months from the date of the Encounter, up to a maximum of 20 appointments. The data comes from all [place] treatment [facility]. Appointment Date/Time Appointment Type Appointme nt Facility Name May 20, 2023 09:00 AM AMBULATORY - MEDICINE [facility] Jun 03, 2023 08:45 AM AMBULATORY - MEDICINE [facility] August 14, 2023 10:30 AM AMBULATORY - MEDICINE [facility] August 17, 2023 09:15 AM AMBULATORY - MEDICINE [facility] Active, Pending, and Scheduled Orders This section includes a listing of several types of active, pending, and scheduled orders, including clinic medications orders, diagnostic test orders, procedure orders and consult orders; where the start date of the order is 45 days before the date of the Encounter or 45 days after the date of theEncounter. The data comes from all [facility]. Test Date/Time Test Type Test Details Facility Name Apr 02, 2023 12:00 AM Laboratory - Chemi stry Order URINALYSIS (STL) URINE SP [facility] Social History: Smoking Status (Most current) and Tobacco Use (All prior to encounter date) This section includes the most current, and the historical, smoking and tobacco- related health factors from the [place] facility where the Encounter took place. Current Smoking Status This section includes the most current smoking, or tobacco-related health factor, from the [place] facility where the Encounter took place. Date/Time Current Smoking Status Comment Nicolas allen Feb 26, 2021 03:59 PM VA-TOBACCO NEVER USED [facility] Encounter Notes: All associated encounter notes This section contains the clinical notes associated to the Encounter. Date/Time Encounter Note(s) Provider Source Apr 02, 2023 03:54 PM PRIMARY CARE SECUR E MESSAGING: LOCAL TITLE: PRIMARY CARE SECURE MESSAGING STANDARD TITLE: PRIMARY CARE SECURE MESSAGING DATE OF NOTE: APR 02, 2023@15:54 ENTRY DATE: APR 02, 2023@14:54:40 AUTHOR: CARINA MARQUEZ EXP COSIGNER: URGENCY: STATUS: COMPLETED ------Original Message ------- Sent: 04/02/2023 03:54 PM ET From: CARINA MARQUEZ To: JORDYN BAILEY Subject: General:General Inquiry Good afternoon, Currently, you are not experiencing any symptoms but have a family history of cancer. Since you have concerns about cancer Dr. Morton has placed an order for a Urinalysis and Chest X-Ray that you can have completed at [facility]. Per Dr. Morton, a colonoscopy is not needed until age 45. If you have an immediate family member that was diagnosed with colon cancer than we can order a colonoscopy now. He would like for me to inform you since you have elevated liver enzymes and was seen by GI in November of 2021, that it will be important that you lose weight. If you have any additional questions/concerns, please feel free to reach out via secure message or call the clinic at [phone], option 4. Have a great day. Carina MORALES /nataliia/ BARBARA RAMOS, RN REGISTERED NURSE Signed: 04/02/2023 14:54 Receipt Acknowledged By: 04/03/2023 09:26 /nataliia/ NOELLE JIMENEZ RN REGISTERED NURSE CARINA MARQUEZ [facility]
--- OUTSIDE RECORDS SUMMARY | 2024-03-31 01:00 | XMS_ITS | Encounter Summary ---
Author Name [facility] Organization [facility] [place] Address [address] [place] [address] Care Team Providers Care Plant Physiologist Name Role Phone KODAK MORTON Primary Care [...] CHOIC E PREFE RR Apr 13, 2020 [id number] [phone] BOOGIE BAILEY ANDON PATIENT ANTHEM [employer] [place] PREFERRED PROVIDER ORGANIZAT ION (PPO) BLUE CHOIC E PREFE RR Apr 13, 2020 [id number] [phone] BOOGIE BAILEY ANDON PATIENT ANTHEM [employer] [place] PREFERRED PROVIDER ORGANIZAT ION (PPO) BLUE CHOIC E PREFE RR Apr 13, 2020 [id number] [phone] BOOGIE BAILEY ANDON PATIENT [employer] [place] PREFERRED PROVIDER ORGANIZAT ION (PPO) BLUE CHOIC E PREFE RR Apr 13, 2020 [id number] [phone] BOOGIE BAILEY PATIENT PRIME THERAPEUTI CS RX PRESCRIPT ION [employer]BS[employer] L [place] Apr 13, 2020 BCBSIL [id number] [phone] BOOGIE BAILEY PATIENT [facility] [place] May 10, 2019 SELECT [id number] BOOGIE BAILEY PATIENT Selected Encounter This section includes the information on record at [place] for the Encounter. Date/Time Encounter Type Encounter Description Reason Pro vider Source Jan 06, 2024 02:25 PM Outpatient Encounter TELEPHONE TRIAGE IHE Encounter Template Text not used by [place] Plan of Treatment: Future Appointments (+ 6 months) and Future Tests (+/- 45 days) The Plan of Treatment section includes future care activities for the patient from all [place] treatmentfacilities. This section includes future appointments and future orders which are active, pending or scheduled. Future Appointments This section includes appointments that were scheduled to occur 6 months from the date of the Encounter, up to a maximum of 20 appointments. The data comes from all [place] treatment facilities. Appointment Date/Time Appointment Type Appointme nt Facility Name Jan 09, 2024 11:29 AM AMBULATORY - MEDICINE [facility] Jan 09, 2024 03:00 PM AMBULATORY - NONE [facility] Jan 14, 2024 09:00 AM AMBULATORY - MEDICINE [facility] Jan 14, 2024 10:00 AM AMBULATORY - MEDICINE [facility] Jan 26, 2024 01:00 PM AMBULATORY - MEDICINE [facility] Jan 28, 2024 01:45 PM AMBULATORY - REHAB MEDICIN E [facility] Feb 02, 2024 02:00 PM AMBULATORY - PSYCHIATRY [facility] Feb 08, 2024 09:00 AM AMBULATORY - NEUROLOGY [facility] Feb 12, 2024 02:30 PM AMBULATORY - NONE [facility] Feb 17, 2024 01:00 PM AMBULATORY - MEDICINE [facility] Feb 25, 2024 09:30 AM AMBULATORY - MEDICINE [facility] Mar 05, 2024 08:43 AM AMBULATORY - MEDICINE [facility] Mar 16, 2024 10:15 AM AMBULATORY - SURGERY [facility] Mar 21, 2024 12:14 PM AMBULATORY - MEDICINE [facility] Apr 01, 2024 10:00 AM AMBULATORY - PSYCHIATRY [facility] Apr 28, 2024 03:00 PM [facility] May 05, 2024 11:30 AM AMBULATORY - MEDICINE [facility] May 27, 2024 11:00 AM AMBULATORY - MEDICINE [facility] Active, Pending, and Scheduled Orders This section includes a listing of several types of active, pending, and scheduled orders, including clinic medications orders, diagnostic test orders, procedure orders and consult orders; where the start date of the order is 45 days before the date of the Encounter or 45 days after the date of theEncounter. The data comes from all [place] treatment facilities. Test Date/Time Test Type Test Details Facility Name Jan 26, 2024 02:11 PM Consult Order RHEUMATOLO GY OUTPATIENT [facility] Feb 17, 2024 01:16 PM Consult Order PLASTIC SEHLLEY RGERY OUTPT [facility] Lab Results: +/- 30 days of the encounter This section includes the Chemistry and Hematology Lab Results on record with [place] for the patient. Radiology Reports and Pathology Reports are provided separately, in subsequent sections. Lab Results This section contains the Chemistry/Hematology Results that were resulted 30 days before or 30 daysafter the date of the Encounter. Date/Time Source Result Type Result - Unit Interpretation Reference Range Comment Jan 26, 2024 02:47 PM [facility] CRP Specimen Type: PLASMA No comment entered. Ordering Provider: FRANSISCO MORTON Report Released Date/Time: Jan 26, 2024 02:11 PM Reporting Lab: [facility] [address] [facility] [id number] Performing Lab: [facility] [address] [facility] [id number] CRP 0.6 mg/dL H 0-0.5 Jan 26, 2024 02:47 PM [facility] ESR ISED(STL) Specimen Type: BLOOD No comment entered. Ordering Provider: FRANSISCO MORTON Report Released Date/Time: Jan 26, 2024 02:11 PM Reporting Lab: [facility] [address] [facility] [address] Performing Lab: [facility] [address] [facility] [address] ESR ISED(STL) 35 mm/h H 0-14 Jan 26, 2024 02:47 PM [facility] RHEUMATOID FACTOR (STL) Specimen Type: SERUM No comment entered. Ordering Provider: FRANSISCO MORTON Report Released Date/Time: Jan 26, 2024 02:19 PM Reporting Lab: [facility] [address] [facility] [address] Performing Lab: [facility] [address] [facility] [address] RHEUMATOID FACTOR (STL) <15.0 0-29 Social History: Smoking Status (Most current) and Tobacco Use (All prior to encounter date) This section includes the most current, and the historical, smoking and tobacco- related health factors from the [place] facility where the Encounter took place. Current Smoking Status This section includes the most current smoking, or tobacco-related health factor, from the [place] facility where the Encounter took place. Date/Time Current Smoking Status Comment Facil ity Feb 26, 2021 03:59 PM VA-TOBACCO NEVER USED [facility] Radiology Reports: +/- 30 days of [...] the Encounter. The data comes from all [place] treatment facilities. Date/Time Radiology Report Provider Source Jan 28, 2024 02:20 PM HAND,RIGHT,3 OR [place] RE VIEWS: JORDYN BAILEY [id number] -1985 M Exm Date: JAN 28, 2024@14:20 Req Phys: KODAK MORTON Pat Loc: [facility] PACT B5 NEW PATIENT (Re Img Loc: -MAIN RADIOLOGY SUITE Service: [facility], [facility] [address] [place] [address] (Case [id number] COMPLETE) HAND,RIGHT,3 OR MORE VIEWS (RAD Detailed) CPT:14358 Proc Modifiers : RIGHT Reason for Study: right hand feell stiff and pain specialy in morning Clinical History: right hand feell stiff and pain specialy in morning Report Status: Verified Date Reported: JAN 29, 2024 Date Verified: JAN 29, 2024 Cobol Developer E-Sig:/NATALIIA/ART ENCARNACION MD Report: Case #[id number]. Right hand examination. Finding: Three views of the right hand examination shows no fracture dislocation. No evidence of lytic or blastic bony lesion. No joint space narrowing or marginal erosion. No soft tissue swelling, radiopaque foreign body or abnormal calcification. Impression: No fracture dislocation or arthritic change. Primary Interpreting Staff: ART ENCARNACION MD, Staff Physician - Radiologist (Cobol Developer) /ART ANDRADE [facility] Jan 28, 2024 02:20 PM WRIST,RIGHT,3 OR M ORE VIEWS: JORDYN BAILEY [id number] -1985 M Exm Date: JAN 28, 2024@14:20 Req Phys: KODAK MORTON Loc: [facility] PACT B5 NEW PATIENT (Re Img Loc: -[facility] RADIOLOGY SUITE Service: Unknown [address] [address] (Case [id number] COMPLETE) WRIST,RIGHT,3 OR MORE VIEWS (RAD Detailed) CPT:22421 Proc Modifiers : RIGHT Reason for Study: right writs pain Clinical History: c/o right wroist pain Report Status: Verified Date Reported: JAN 29, 2024 Date Verified: JAN 29, 2024 Cobol Developer E-Sig:/NATALIIA/ART ENCARNACION MD Report: Case #[id number]. Right wrist examination. Finding: Three views of the right wrist examination shows no fracture dislocation. The carpal bones are normal in alignment. Anesthesia ossicle seen at the tip of the styloid process of ulna. The radiocarpal and intercarpal joints appear unremarkable. No soft tissue swelling or radiopaque foreign body. No abnormal calcification. Impression: No fracture dislocation or arthritic change. Primary Interpreting Staff: ART ENCARNACION MD, Staff Physician - Radiologist (Cobol Developer) /ART ANDRADE [facility] Jan 28, 2024 02:20 PM HAND,LEFT,3 OR MOR E VIEWS: JORDYN BAILEY [id number] -1985 M Exm Date: JAN 28, 2024@14:20 Req Phys: KODAK MORTON Loc: [facility] PACT B5 NEW PATIENT (Re Img Loc: [facility] RADIOLOGY SUITE Service: Unknown [facility] [address] [place] [address] (Case [id number] COMPLETE) HAND,LEFT,3 OR MORE VIEWS (RAD Detailed) CPT:74041 Proc Modifiers : LEFT Reason for Study: left hand feell stiff and pain specialy in morning Clinical History: eft hand feell stiff and pain specialy in morning Report Status: Verified Date Reported: JAN 29, 2024 Date Verified: JAN 29, 2024 Cobol Developer E-Sig:/ES/ART ENCARNACION MD Report: Case #[id number]. Left hand examination. Finding: Three views of the left hand examination shows no fracture dislocation. No evidence of lytic or blastic bony lesion. No joint space narrowing or marginal erosion. No soft tissue swelling, radiopaque foreign body or abnormal calcification. Impression: No fracture dislocation or arthritic change. Primary Interpreting Staff: ART ENCARNACION MD, Staff Physician - Radiologist (Cobol Developer) /ART ANDRADE [facility] Jan 28, 2024 02:20 PM WRIST,LEFT, 3 OR M ORE VIEWS: JORDYN BAILEY [id number] -1985 M Exm Date: JAN 28, 2024@14:20 Req Phys: KODAK MORTON Loc: [facility] PACT B5 NEW PATIENT (Re Img Loc: [facility] RADIOLOGY SUITE Service: Unknown [facility] [address] [place] [address] (Case [id number] COMPLETE) WRIST,LEFT, 3 OR MORE VIEWS (RAD Detailed) CPT:56214 Proc Modifiers : LEFT Reason for Study: c/o left wrist pain Clinical History: c/o left wrist pain Report Status: Verified Date Reported: JAN 29, 2024 Date Verified: JAN 29, 2024 Cobol Developer E-Sig:/ES/ART ENCARNACION MD Report: Case #[id number]. Left wrist examination. Finding: Three views of the left wrist examination shows no fracture dislocation. The carpal bones are normal in alignment. Radiocarpal and intercarpal joints appear unremarkable. No evidence of lytic or blastic bony lesion. No soft tissue swelling, radiopaque foreign body or abnormal calcification. Impression: No fracture dislocation or arthritic change. Primary Interpreting Staff: ART ENCARNACION MD, Staff Physician - Radiologist (Cobol Developer) /ART ANDRADE [facility] Jan 09, 2024 12:[address] CERVICAL SPINE W/O CONT: LYNNJORDYN ANTHONY [id number] -1985 M Exm Date: JAN 09, 2024@12:18 Req Phys: BING ORTIZ Loc: [facility] 2ND SHIFT (R Img Loc: [facility] IMAGING Service: [address] [address] (Case [id number] COMPLETE) CT CERVICAL SPINE W/O CONT (CT Detailed) CPT:77705 Reason for Study: Neck pain, bilateral arm pain/weakness Clinical History: Responsible Attending: Yovany Attending Contact Number: [phone] Resident Contact Number: Neck pain, bilateral arm pain/weakness Allergies listed in CPRS chart: SHELLFISH Creatinine/eGFR: STL EGFR (within one year). CREATININE 0.95 mg/dL (11/25/23 11:00) Wt: 220.4 lb [99.97 kg] (11/25/2023 10:03) History of: Renal failure, chronic or acute renal disease: NO Report Status: Verified Date Reported: JAN 09, 2024 Date Verified: JAN 09, 2024 Cobol Developer E-Sig: Report: CT CERVICAL SPINE W/O CONT Clinical History: Neck pain, bilateral arm pain/weakness Comparison: No priors available Technique: Noncontrast CT of the cervical spine was performed. The study was protocoled and supervised at the local [place] facility. 1116 images were subsequently received by the [place] National Teleradiology Program (NTP) for interpretation. Total [...] dedicated MRI. READING PHYSICIAN: Ifrah Guzmán M.D. -[id number] 01/09/2024 11:23 [facility] National Teleradiology Program [phone] (For Medical Practitioner Use Only) Attention Patients / Veterans: If you have questions or concerns about these test results, please contact your ordering provider or primary care team. Primary Interpreting Staff: RADIOLOGY,OUTSIDE SERVICE, Staff Physician / RADIOLOGY,OUTSIDE SERVICE [facility] Encounter Notes: All associated encounter notes This section contains the clinical notes associated to the Encounter. Date/Time Encounter Note(s) Provider Source Jan 06, 2024 02:25 PM RN PROGRESS NOTE: LOCAL TITLE: CCC: CLINICAL TRIAGE STANDARD TITLE: RN PROGRESS NOTE DATE OF NOTE: JAN 06, 2024@14:25:39 ENTRY DATE: JAN 06, 2024@14:25:39 AUTHOR: ESVIN CLEMENTE COSIGNER: URGENCY: STATUS: COMPLETED CCC: CLINICAL TRIAGE Has ADDENDA Patient Demographics Patient Name: JORDYN BAILEY Patient Primary Address: [address] [place] [address] Patient Primary Phone: [phone] Patient : 1985 Patient Age: 38 Call Back Number: [phone] Caller/Recipient Relation to Patient: Self Emergency Contact: JOSÉ MENSAH Triage Summary Conducted triage/discussed symptoms Utilized the Triage Tool: Yes Chief Complaint: Joint Pain (multiple joints) System WHEN: Within 3 Days Nurse's Recommendation / WHEN: Within 3 Days System WHERE: Clinic Nurse's Recommendation / WHERE: Clinic/[facility] Test to Treat Summary of Actions Verbal Education Call [facility] CCC if worsening symptoms Does patient agree to recommendation: Yes Patient Disposition Patient/Caregiver agrees to plan of care: Yes Nursing Plan and Disposition Referred Patient for In-Person Appt Transferred patient to Sched & Admin-Apt No appt avail Advised Urgent Care Other course(s) of action Generated msg to PACT/Provider Nurse Summary Nurse Summary: c/o multiple joint pain, mostly in his shoulders and wrists. He says he has numbness in his fingers. He says this has been going on for 1 week. He requests to see his PCP. Provided education. His pain is moderate to severe at times. He has a cough, but he says Pulmonary is working with him on that. Clinical Contact Center Codes Clinic/Location: V15 ST PHONE CCC RN Decision Support System Output: Triage Complete Triage Date: 01/06/2024, 02:20 PM Triage Note: Decision Support Tool Used: [facility] Phone Triage 06 Jan 2024 19:14:35 +0000 [facility] Demographics 38 y/o Male Results CC: Joint Pain (multiple joints) Software suggested: Within 3 Days Software suggested follow-up location: Clinic, consider virtual care Values and Measures Duration of CC: 1 Weeks Positive Responses HPI: arm pain, localized to shoulders HPI: arthralgias, more than 1 joint HPI: shoulder pain, duration longer than 5 days HPI: shoulder pain, moderate to severe HPI: shoulder pain, radiation to arms HPI: shoulder pain, within past 6 hours HPI: shoulder pain, worsening Negative Responses Denies: HPI: arm numbness, bilateral Denies: HPI: chest pain, with shoulder pain Denies: HPI: shoulder pain, radiates from neck Denies: PSH: chest surgery, within past week [place] Education Verbal Education Provided for: Shoulder Pain Home Care IMPORTANT: This note was created by [facility] Clinical Contact Center staff. Please do not alert the staff member by adding them as a signer for future communications. Alerts are not monitored by this user. /nataliia/ ESVIN CLEMENTE RN Signed: 01/06/2024 14:25 Receipt Acknowledged By: 01/07/2024 11:56 /nataliia/ NOELLE JIMENEZ RN REGISTERED NURSE 01/08/2024 13:02 /nataliia/ Kodak Morton MD Staff Physician 01/06/2024 ADDENDUM STATUS: COMPLETED PER [facility] TRIAGE NURSE NEEDING APPOINTMENT, [facility] MADE V15 [facility] APPOINTMENT FOR 01/06/2024 1700 VVC /nataliia/ Yesenia LUU,QUALITY CONTROL ANALYST/Restorative care Signed: 01/06/2024 14:28 ESVIN CLEMENTE [facility]
--- OUTSIDE RECORDS SUMMARY | 2024-03-31 01:00 | XMS_ITS | Encounter Summary ---
Author Name [facility] [facility] [place] [facility] [place] Address [address] [place] [address] Care Team Providers Care Show Host Or Hostess Name Role Phone KODAK MORTON Primary Care [...] CHOIC E PREFE RR Apr 13, 2020 [id number] [phone] BOOGIE PINEDA PATIENT ANTHEM [employer] [place] PREFERRED PROVIDER ORGANIZAT ION (PPO) BLUE CHOIC E PREFE RR Apr 13, 2020 [id number] [phone] STEPHANIE PINEDAON PATIENT ANTHE[place] [employer] [place] PREFERRED PROVIDER ORGANIZAT ION (PPO) BLUE CHOIC E PREFE RR Apr 13, 2020 [id number] [phone] BOOGIE PINEDA PATIENT [employer] [place] PREFERRED PROVIDER ORGANIZAT ION (PPO) BLUE CHOIC E PREFE RR Apr 13, 2020 [id number] [phone] BOOGIE PINEDA PATIENT PRIME THERAPEUTI CS RX PRESCRIPT ION [facility] [place] Apr 13, 2020 BCBSIL [id number] [phone] BOOGIE PINEDA PATIENT [facility] 2018 [place] May 10, 2019 [facility] [id number] BOOGIE PINEDA PATIENT Selected Encounter This section includes the information on record at [place] for the Encounter. Date/Time Encounter Type Encounter Description Reason Provider Source Dec 29, 2023 02:04 PM Outpatient Encounter PULMONARY/CHEST SCOTT GUAJARDO [facility] Encounter Template Text not used by [place] [...] 09, 2024 11:29 AM AMBULATORY - MEDICINE [facility] Jan 09, 2024 03:00 PM AMBULATORY - NONE [facility] Jan 14, 2024 09:00 AM AMBULATORY - MEDICINE [facility] Jan 14, 2024 10:00 AM AMBULATORY - MEDICINE [facility] Jan 26, 2024 01:00 PM AMBULATORY - MEDICINE [facility] Jan 28, 2024 01:45 PM AMBULATORY - REHAB MEDICIN E [facility] Feb 02, 2024 02:00 PM AMBULATORY - PSYCHIATRY [facility] Feb 08, 2024 09:00 AM AMBULATORY - NEUROLOGY [facility] Feb 12, 2024 02:30 PM AMBULATORY - NONE [facility] Feb 17, 2024 01:00 PM AMBULATORY - MEDICINE [facility] Feb 25, 2024 09:30 AM AMBULATORY - MEDICINE [facility] Mar 05, 2024 08:43 AM AMBULATORY - MEDICINE [facility] Mar 16, 2024 10:15 AM AMBULATORY - SURGERY [facility] Mar 21, 2024 12:14 PM [facility] Apr 01, 2024 10:00 AM AMBULATORY - PSYCHIATRY [facility] Apr 28, 2024 03:00 PM [facility] May 05, 2024 11:30 AM AMBULATORY - MEDICINE [facility] May 27, 2024 11:00 AM AMBULATORY - MEDICINE [facility] Active, Pending, and Scheduled Orders This section includes a listing of several types of active, pending, and scheduled orders, including clinic medications orders, diagnostic test orders, procedure orders and consult orders; where the start date of the order is 45 days before the date of the Encounter or 45 days after the date of theEncounter. The data comes from all [place] treatment facilities. Test Date/Time Test Type Test Details Facility Name Jan 26, 2024 02:11 PM Consult Order RHEUMATOLO GY OUTPATIENT [facility] Cons [employer] Lab[employer] Choice [facility] Lab Results: +/- 30 days [...] Range Comment Jan 26, 2024 02:47 PM [facility] ESR ISED(STL) Specimen Type: BLOOD No comment entered. Ordering Provider: FRANSISCO MORTON Report Released Date/Time: Jan 26, 2024 02:11 PM Reporting Lab: [facility] [address] [facility] [facility] [id number] Performing Lab: [facility] [address] [facility] [id number] ESR ISED(STL) 35 mm/h H 0-14 Jan 26, 2024 02:47 PM [facility] CRP Specimen Type: PLASMA No comment entered. Ordering Provider: FRANSISCO MORTON Report Released Date/Time: Jan 26, 2024 02:11 PM Reporting Lab: [facility] [address] [id number] Performing Lab: [facility] [address] [facility] [address] CRP 0.6 mg/dL H 0-0.5 Jan 26, 2024 02:47 PM [facility] RHEUMATOID FACTOR (STL) Specimen Type: SERUM No comment entered. Ordering Provider: FRANSISCO MORTON Report Released Date/Time: Jan 26, 2024 02:19 PM Reporting Lab: [facility] [address] [facility] [facility] [address] Performing Lab: [facility] [address] [facility] [phone] RHEUMATOID FACTOR (STL) <15.0 0-29 Social History: [...] 2021 03:59 PM VA-TOBACCO NEVER USED [facility] Radiology Reports: +/- 30 days of [...] the Encounter. The data comes from all [place] treatment facilities. Date/Time Radiology Report Provider Source Jan 28, 2024 02:20 PM HAND,RIGHT,3 OR MO RE VIEWS: JORDYN PINEDA [id number] -1985 M Exm Date: JAN 28, 2024@14:20 Req Phys: KODAK MORTON Pat Loc: [facility] PACT B5 NEW PATIENT (Re Img Loc: -MAIN RADIOLOGY SUITE Service: [facility], [facility] [address] [place] [address] (Case [id number] COMPLETE) HAND,RIGHT,3 OR MORE VIEWS (RAD Detailed) CPT:35937 Proc Modifiers : RIGHT Reason for Study: right hand feell stiff and pain specialy in morning Clinical History: right hand feell stiff and pain specialy in morning Report Status: Verified Date Reported: JAN 29, 2024 Date Verified: JAN 29, 2024 Restaurant Inspector E-Sig:/ES/ART ENCARNACION MD Report: Case #[id number]. Right hand examination. Finding: Three views of the right hand examination shows no fracture dislocation. No evidence of lytic or blastic bony lesion. No joint space narrowing or marginal erosion. No soft tissue swelling, radiopaque foreign body or abnormal calcification. Impression: No fracture dislocation or arthritic change. Primary Interpreting Staff: ART ENCARNACION MD, Staff Physician - Radiologist (Restaurant Inspector) /ART ANDRADE [facility] Jan 28, 2024 02:20 PM WRIST,RIGHT,3 OR M ORE VIEWS: LYNNLISAJORDYN ANTHONY [id number] -1985 M Exm Date: JAN 28, 2024@14:20 Req Phys: KODAK MORTON Pat Loc: [facility] PACT B5 NEW PATIENT (Re Img Loc: -[facility] RADIOLOGY SUITE Service: [facility], [address] [address] (Case [id number] COMPLETE) WRIST,RIGHT,3 OR MORE VIEWS (RAD Detailed) CPT:96149 Proc Modifiers : RIGHT Reason for Study: right writs pain Clinical History: c/o right wroist pain Report Status: Verified Date Reported: JAN 29, 2024 Date Verified: JAN 29, 2024 Restaurant Inspector E-Sig:/ES/ART ENCARNACION MD Report: Case #[id number]. Right wrist [...] ART ENCARNACION MD, Staff Physician - Radiologist (Restaurant Inspector) /ART ANDRADE [facility] Jan 28, 2024 02:20 PM HAND,LEFT,3 OR MOR E VIEWS: JORDYN PINEDA [id number] -1985 M Exm Date: JAN 28, 2024@14:20 Req Phys: KODAK MORTON Pat Loc: [facility] PACT B5 NEW PATIENT (Re Img Loc: [facility] RADIOLOGY SUITE Service: Unknown [facility] [address] [place] [address] (Case [id number] COMPLETE) HAND,LEFT,3 OR MORE VIEWS (RAD Detailed) CPT:50184 Proc Modifiers : LEFT Reason for Study: left hand feell stiff and pain specialy in morning Clinical History: eft hand feell stiff and pain specialy in morning Report Status: Verified Date Reported: JAN 29, 2024 Date Verified: JAN 29, 2024 Restaurant Inspector E-Sig:/ES/ART ENCARNACION MD Report: Case #[id number]. Left hand examination. Finding: Three views of the left hand examination shows no fracture dislocation. No evidence of lytic or blastic bony lesion. No joint space narrowing or marginal erosion. No soft tissue swelling, radiopaque foreign body or abnormal calcification. Impression: No fracture dislocation or arthritic change. Primary Interpreting Staff: ART ENCARNACION MD, Staff Physician - Radiologist (Restaurant Inspector) / ART ENCARNACION [facility] Jan 28, 2024 02:20 PM WRIST,LEFT, 3 OR M ORE VIEWS: JORDYN PINEDA ANTHONY [id number] -1985 M Exm Date: JAN 28, 2024@14:20 Req Phys: KODAK MORTON Loc: [facility] PACT B5 NEW PATIENT (Re Img Loc: [facility] RADIOLOGY SUITE Service: Unknown [facility] [address] [place] [address] (Case [id number] COMPLETE) WRIST,LEFT, 3 OR MORE VIEWS (RAD Detailed) CPT:51004 Proc Modifiers : LEFT Reason for Study: c/o left wrist pain Clinical History: c/o left wrist pain Report Status: Verified Date Reported: JAN 29, 2024 Date Verified: JAN 29, 2024 Restaurant Inspector E-Sig:/ES/ART ENCARNACION MD Report: Case #[id number]. Left [...] ART ENCARNACION MD, Staff Physician - Radiologist (Restaurant Inspector) /ART ANDRADE [facility] Jan 09, 2024 12:[address] CERVICAL SPINE W/O CONT: JORDYN PINEDA [id number] -1985 M Exm Date: JAN 09, 2024@12:18 Req Phys: BING ORTIZ Loc: [facility] 2ND SHIFT (R Img Loc: [facility] IMAG[facility] Service: [address] [address] (Case [id number] COMPLETE) CT CERVICAL SPINE W/O CONT (CT Detailed) CPT:80031 Reason for Study: Neck pain, bilateral arm pain/weakness Clinical History: Responsible Attending: Yovany Attending Contact Number: [id number] Resident Contact Number: Neck pain, bilateral arm pain/weakness Allergies listed in CPRS chart: SHELLFISH Creatinine/eGFR: STL EGFR (within one year). CREATININE 0.95 mg/dL (11/25/23 11:00) Wt: 220.4 lb [99.97 kg] (11/25/2023 10:03) History of: Renal failure, chronic or acute renal disease: NO Report Status: Verified Date Reported: JAN 09, 2024 Date Verified: JAN 09, 2024 Restaurant Inspector E-Sig: Report: CT CERVICAL SPINE W/O CONT Clinical History: Neck pain, bilateral arm pain/weakness Comparison: No priors available Technique: Noncontrast CT of the cervical spine was performed. The study was protocoled and supervised at the local [place] facility. 1116 images were subsequently received by the [place] National Teleradiology Program (NTP) for interpretation. Total [...] dedicated MRI. READING PHYSICIAN: Ifrah Guzmán M.D. -[id number] 01/09/2024 11:23 PDT [facility] National Teleradiology Program [phone] (For Medical Practitioner Use Only) Attention Patients / Veterans: If you have questions or concerns about these test results, please contact your ordering provider or primary care team. Primary Interpreting Staff: RADIOLOGY,OUTSIDE SERVICE, Staff Physician / RADIOLOGY,OUTSIDE SERVICE [facility] Encounter Notes: All associated encounter notes This section contains the clinical notes associated to the Encounter. Date/Time Encounter Note(s) Provider Source Jan 05, 2024 08:53 AM [facility] DIALOG NOTE: LOCAL TITLE: SECURE WatchDoxAGING STANDARD TITLE: [email or web address] DIALOG NOTE DATE OF NOTE: JAN 05, 2024@08:53 ENTRY DATE: JAN 05, 2024@07:53:05 AUTHOR: SCOTT GUAJARDO COSIGNER: URGENCY: STATUS: COMPLETED ------Original Message ------- Sent: 01/04/2024 01:26 PM ET From: JORDYN PINEDA To: [facility], PULMONARY , SPECIALTY MEDICINE @ Subject: Appointment:Reschedule Pulmonary Helshirley, I am working on rescheduling my appointment yet again since i wont be able to do my PFT before my appointment, i am on hold with them right now. I am so so SO sorry for dragging this left and right! ------Original Message ------- Sent: 01/05/2024 08:52 AM ET From: SCOTT GUAJARDO To: JORDYN PINEDA Subject: Appointment:Reschedule Pulmonary Morning, You know the phone numbers to get scheduled. I would call today. Make your appointment mid-January and you shouldn't have any difficulty get your PFT scheduled prior to your appointment. Let me know if I can be of any assistance . Tete mccray/ SCOTT GUAJARDO MSN,RN REGISTERED NURSE Signed: 01/05/2024 07:53 SCOTT GUAJARDO [facility] Jan 04, 2024 11:31 AM [facility] DIALOG NOTE: LOCAL TITLE: PrecisionPoint SoftwareAGING STANDARD TITLE: [email or web address] DIALOG NOTE DATE OF NOTE: JAN 04, 2024@11:31 ENTRY DATE: JAN 04, 2024@10:31:02 AUTHOR: SCOTT GUAJARDO EXP COSIGNER: URGENCY: STATUS: COMPLETED ------Original Message ------- Sent: 01/04/2024 11:07 AM ET From: JORDYN PINEDA To: ST, PULMONARY , SPECIALTY MEDICINE @ Subject: Appointment:Reschedule Pulmonary Hello, I have been trying to call and get rescheduled for these appointments but i either get a voicemail (ext. [phone])or wrong number (ext. [phone]). I did get a call from a nurse last week, she transferred me to schedule my Function test but the call dropped. I left another message on Thursday (maybe ) and left a message and still haven't gotten a phone call back. ------Original Message ------- Sent: 01/04/2024 11:30 AM ET From: SCOTT GUAJARDO To: JORDYN PINEDA Subject: Appointment:Reschedule Pulmonary Morning, I just tried calling you and your mailbox is full. I apologize the number to schedule your pulmonary appointment is [phone] option 3. I accidentally gave you my direct extension. If I didn't answer I was on the phone with another . Pulmonary function test extension was correct-[phone]. Tete mccray/ SCOTT GUAJARDO MSN,RN REGISTERED NURSE Signed: 01/04/2024 10:31 SCOTT GUAJARDO [facility] Dec 29, 2023 02:04 PM [facility] DIALOG NOTE: LOCAL TITLE: PrecisionPoint SoftwareAGING STANDARD TITLE: [email or web address] DIALOG NOTE DATE OF NOTE: DEC 29, 2023@14:04 ENTRY DATE: DEC 29, 2023@13:04:54 AUTHOR: SCOTT GUAJARDO EXP COSIGNER: URGENCY: STATUS: COMPLETED ------Original Message ------- Sent: 12/29/2023 11:17 AM ET From: JORDYN PINEDA To: [facility], PULMONARY , SPECIALTY MEDICINE @ Subject: Appointment:Reschedule Pulmonary Hello, I had 2 appointments this month with your clinic to speak with Dr. Limon and to get a scan or another test done, i had to reschedule due to personal reasons. I would like to get those appointment scheduled again please! Thank you! ------Original Message ------- Sent: 12/29/2023 02:04 PM ET From: SCOTT GUAJARDO To: JORDYN PINEDA Subject: Appointment:Reschedule Pulmonary Mr. Pineda, Please call [phone] extension [phone] option #1 to reschedule your appointment w/ Ash[facility]. Once you have your appointment scheduled have them transfer you to extension [phone] for your pulmonary function test. You can have your test set up right before your pulmonary appt. dave mccray/ SCOTT GUAJARDO MSN,RN REGISTERED NURSE Signed: 12/29/2023 13:04 SCOTT GUAJARDO [facility]
--- OUTSIDE RECORDS SUMMARY | 2024-03-31 01:01 | XMS_ITS | Encounter Summary ---
Author Name [facility] [place] [facility] [place] [facility] [place] [facility] [place] Address [address] [place] [address] Care Team Providers Care Center Machine Operator Name Role Phone KODAK MORTON Primary [...] CHOIC E PREFE RR Apr 13, 2020 [id number] [phone] BOOGIE BAILEY ANDON PATIENT ANTHEM [employer] PREFERRED PROVIDER ORGANIZAT ION (PPO) BLUE CHOIC E PREFE RR Apr 13, 2020 [id number] [phone] BOOGIE BAILEY ANDON PATIENT ANTHE[place] PREFERRED PROVIDER ORGANIZAT ION (PPO) BLUE CHOIC E PREFE RR Apr 13, 2020 [id number] [phone] BOOGIE BAILEY ANDON PATIENT [place] PREFERRED PROVIDER ORGANIZAT ION (PPO) BLUE CHOIC E PREFE RR Apr 13, 2020 [id number] [phone] BOOGIE BAILEY PATIENT PRIME THERAPEUTI CS RX PRESCRIPT ION BCBSI L T[place]ER Apr 13, 2020 [id number] [phone] BOOGIE BAILEY PATIENT [place] 2018 TRICA RE May 10, 2019 SELECT [id number] BOOGIE BAILEY PATIENT Selected Encounter This section includes the information on record at [place] for the Encounter. Date/Time Encounter Type Encounter Description Reason Provider Source Jan 06, 2024 05:01 PM Outpatient Encounter TELEPHONE TRIAGE ICD-10-CM M79.643 Pain in unspecified hand HERMRECK,CONS TANCE D IHE Encounter Template Text not used by [place] Assessments - Encounter Diagnoses This section includes the primary and secondary diagnoses documented for the Encounter. Date/Time Primary/Secondary Diagnosis Diagnosis Name Provider Source Jan 06, 2024 05:01 PM PRIMARY Pain in unspecified hand HERMRECK,CONST RUSSELL Lopez [facility] Jan 06, 2024 05:01 PM SECONDARY Pain in unspecified wrist HERMRECK,CONST ANCE John [facility] Plan of Treatment: Future Appointments (+ 6 months) and Future Tests (+/- 45 days) The Plan of Treatment section includes future care activities for the patient from all [place] treatmentfaunc health lenoirities. This section includes future appointments and future [...] 09, 2024 11:29 AM AMBULATORY - MEDICINE [facility] Jan 09, 2024 03:00 PM AMBULATORY - NONE [facility] Jan 14, 2024 09:00 AM AMBULATORY - MEDICINE [facility] Jan 14, 2024 10:00 AM AMBULATORY - MEDICINE [facility] Jan 26, 2024 01:00 PM AMBULATORY - MEDICINE [facility] Jan 28, 2024 01:45 PM AMBULATORY - REHAB MEDICIN E [facility] Feb 02, 2024 02:00 PM AMBULATORY - PSYCHIATRY [facility] Feb 08, 2024 09:00 AM AMBULATORY - NEUROLOGY [facility] Feb 12, 2024 02:30 PM AMBULATORY - NONE [facility] Feb 17, 2024 01:00 PM AMBULATORY - MEDICINE [facility] Feb 25, 2024 09:30 AM AMBULATORY - MEDICINE [facility] Mar 05, 2024 08:43 AM AMBULATORY - MEDICINE [facility] Mar 16, 2024 10:15 AM AMBULATORY - SURGERY [facility] Mar 21, 2024 12:14 PM AMBULATORY - MEDICINE [facility] Apr 01, 2024 10:00 AM AMBULATORY - PSYCHIATRY [facility] Apr 28, 2024 03:00 PM AMBULATORY - MEDICINE [facility] May 05, 2024 11:30 AM AMBULATORY - MEDICINE [facility] May 27, 2024 11:00 AM AMBULATORY - MEDICINE [facility] Active, Pending, and Scheduled Orders This section includes a listing of several types of active, pending, and scheduled orders, including clinic medications orders, diagnostic test orders, procedure orders and consult orders; where the start date of the order is 45 days before the date of the Encounter or 45 days after the date of theEncounter. The data comes from all [place] treatment facilities. Test Date/Time Test Type Test Details Facility Name Jan 26, 2024 02:11 PM Consult Order RHEUMATOLO GY OUTPATIENT [facility] Feb 17, 2024 01:16 PM Consult Order PLASTIC SHELLEY RGERY OUTPT [facility] Lab Results: +/- 30 days of the encounter This section includes the Chemistry and Hematology Lab Results on record with [place] for the patient. Radiology Reports and Pathology Reports are provided separately, in subsequent sections. Lab Results This section contains the Chemistry/Hematology Results that were resulted 30 days before or 30 daysafter the date of the Encounter. Date/Time Source Result Type Result - Unit Interpretation Reference Range Comment Jan 26, 2024 02:47 PM [facility] CRP Specimen Type: PLASMA No comment entered. Ordering Provider: FRANSISCO MORTON Report Released Date/Time: Jan 26, 2024 02:11 PM Reporting Lab: [facility] [address] [facility] [phone] Performing Lab: [facility] [address] [address] CRP 0.6 mg/dL H 0-0.5 Jan 26, 2024 02:47 PM [facility] RHEUMATOID FACTOR (STL) Specimen Type: SERUM No comment entered. Ordering Provider: FRANSISCO MORTON Report Released Date/Time: Jan 26, 2024 02:19 PM Reporting Lab: [facility] [address] [id number] Performing Lab: [address] [address] RHEUMATOID FACTOR (STL) <15.0 0-29 Jan 26, 2024 02:47 PM [facility] ESR ISED(STL) Specimen Type: BLOOD No comment entered. Ordering Provider: FRANSISCO MORTON Report Released Date/Time: Jan 26, 2024 02:11 PM Reporting Lab: [place] [address] [facility] [address] Performing Lab: [place] [address] [address] ESR ISED(STL) 35 mm/h H 0-14 Social History: Smoking Status (Most current) and [...] 26, 2021 03:59 PM VA-TOBACCO NEVER USED [facility] Radiology Reports: +/- 30 days of [...] the Encounter. The data comes from all [place] treatment facilities. Date/Time Radiology Report Provider Source Jan 28, 2024 02:20 PM HAND,RIGHT,3 OR [place] RE VIEWS: JORDYN BAILEY [id number] -1985 M Exm Date: JAN 28, 2024@14:20 Req Phys: KODAK MORTON Pat Loc: [facility] PACT B5 NEW PATIENT (Re Img Loc: [facility] RADIOLOGY SUITE Service: Unknown [address] [address] (Case [id number] COMPLETE) HAND,RIGHT,3 OR MORE VIEWS (RAD Detailed) CPT:41875 Proc Modifiers : RIGHT Reason for Study: right hand feell stiff and pain specialy in morning Clinical History: right hand feell stiff and pain specialy in morning Report Status: Verified Date Reported: JAN 29, 2024 Date Verified: JAN 29, 2024 Cannon Pinion Adjuster E-Sig:/ES/ART ENCARNACION MD Report: Case #[id number]. Right hand examination. Finding: Three views of the right hand examination shows no fracture dislocation. No evidence of lytic or blastic bony lesion. No joint space narrowing or marginal erosion. No soft tissue swelling, radiopaque foreign body or abnormal calcification. Impression: No fracture dislocation or arthritic change. Primary Interpreting Staff: ART ENCARNACION MD, Staff Physician - Radiologist (Cannon Pinion Adjuster) /ART ANDRADE [facility] Jan 28, 2024 02:20 PM WRIST,RIGHT,3 OR M ORE VIEWS: JORDYN BAILEY ANTHONY [id number] -1985 M Exm Date: JAN 28, 2024@14:20 Req Phys: KODAK MORTON Loc: [facility] PACT B5 NEW PATIENT (Re Img Loc: [facility] RADIOLOGY SUITE Service: Unknown [address] [address] (Case [id number] COMPLETE) WRIST,RIGHT,3 OR MORE VIEWS (RAD Detailed) CPT:17312 Proc Modifiers : RIGHT Reason for Study: right writs pain Clinical History: c/o right wroist pain Report Status: Verified Date Reported: JAN 29, 2024 Date Verified: JAN 29, 2024 Cannon Pinion Adjuster E-Sig:/NATALIIA/ART ENCARNACION MD Report: Case #[id number]. Right [...] ART ENCARNACION MD, Staff Physician - Radiologist (Cannon Pinion Adjuster) /ART ANDRADE [facility] Jan 28, 2024 02:20 PM HAND,LEFT,3 OR MOR E VIEWS: JORDYN BAILEY [id number] -1985 M Exm Date: JAN 28, 2024@14:20 Req Phys: KODAK MORTON Pat Loc: [facility] PACT B5 NEW PATIENT (Re Img Loc: -[facility] RADIOLOGY SUITE Service: [facility], [facility] [address] [place] [address] (Case [id number] COMPLETE) HAND,LEFT,3 OR MORE VIEWS (RAD Detailed) CPT:14225 Proc Modifiers : LEFT Reason for Study: left hand feell stiff and pain specialy in morning Clinical History: eft hand feell stiff and pain specialy in morning Report Status: Verified Date Reported: JAN 29, 2024 Date Verified: JAN 29, 2024 Cannon Pinion Adjuster E-Sig:/NATALIIA/ART ENCARNACION MD Report: Case #[id number]. Left hand examination. Finding: Three views of the left hand examination shows no fracture dislocation. No evidence of lytic or blastic bony lesion. No joint space narrowing or marginal erosion. No soft tissue swelling, radiopaque foreign body or abnormal calcification. Impression: No fracture dislocation or arthritic change. Primary Interpreting Staff: ART ENCARNACION MD, Staff Physician - Radiologist (Cannon Pinion Adjuster) /ART ANDRADE [facility] Jan 28, 2024 02:20 PM WRIST,LEFT, 3 OR M ORE VIEWS: JORDYN BAILEY [id number] -1985 M Exm Date: JAN 28, 2024@14:20 Req Phys: KODAK MORTON Pat Loc: -[facility] PACT B5 NEW PATIENT (Re Img Loc: -MAIN RADIOLOGY SUITE Service: Unknown [facility] [address] [place] [address] (Case [id number] COMPLETE) WRIST,LEFT, 3 OR MORE VIEWS (RAD Detailed) CPT:41426 Proc Modifiers : LEFT Reason for Study: c/o left wrist pain Clinical History: c/o left wrist pain Report Status: Verified Date Reported: JAN 29, 2024 Date Verified: JAN 29, 2024 Cannon Pinion Adjuster E-Sig:/ES/ART ENCARNACION MD Report: Case #[id number]. Left [...] ART ENCARNACION MD, Staff Physician - Radiologist (Cannon Pinion Adjuster) /ART ANDRADE [facility] Jan 09, 2024 12:[address] CERVICAL SPINE W/O CONT: JORDYN BAILEY [id number] -1985 M Exm Date: JAN 09, 2024@12:18 Req Phys: BING ORTIZ Loc: -EMERGENCY DEPT 2ND SHIFT (R Img Loc: -CT IMAGING Service: Unknown [facility] [address] [place] [address] (Case [id number] COMPLETE) CT CERVICAL SPINE W/O CONT (CT Detailed) CPT:65836 Reason for Study: Neck pain, bilateral arm pain/weakness Clinical History: Responsible Attending: Yovany Attending Contact Number: [id number] Resident Contact Number: Neck pain, bilateral arm pain/weakness Allergies listed in CPRS chart: SHELLFISH Creatinine/eGFR: STL EGFR (within one year). CREATININE 0.95 mg/dL (11/25/23 11:00) Wt: 220.4 lb [99.97 kg] (11/25/2023 10:03) History of: Renal failure, chronic or acute renal disease: NO Report Status: Verified Date Reported: JAN 09, 2024 Date Verified: JAN 09, 2024 Cannon Pinion Adjuster E-Sig: Report: CT CERVICAL SPINE W/O CONT Clinical History: Neck pain, bilateral arm pain/weakness Comparison: No priors available Technique: Noncontrast CT of the cervical spine was performed. The study was protocoled and supervised at the local [place] facility. 1116 images were subsequently received by the [place] National Teleradiology Program (NTP) for interpretation. Total [...] dedicated MRI. READING PHYSICIAN: Ifrah Guzmán M.D. -[id number] 01/09/2024 11:23 [facility] National Teleradiology Program [phone] (For Medical Practitioner Use Only) Attention Patients / Veterans: If you have questions or concerns about these test results, please contact your ordering provider or primary care team. Primary Interpreting Staff: RADIOLOGY,OUTSIDE SERVICE, Staff Physician / RADIOLOGY,OUTSIDE SERVICE [facility] Encounter Notes: All associated encounter notes This section contains the clinical notes associated to the Encounter. Date/Time Encounter Note(s) Provider Source Feb 09, 2024 12:32 PM ADDENDUM: LOCAL TITLE: Addendum STANDARD TITLE: ADDENDUM DATE OF NOTE: FEB 09, 2024@12:32:38 ENTRY DATE: FEB 09, 2024@12:32:39 AUTHOR: RALPH ESPINOZA COSIGNER: URGENCY: STATUS: COMPLETED Informed Patient results. This Provider ordered a RTC for Patient to be scheduled a follow up appointment with his PCP. Forwarding to PACT TEAM/PCP. EMG RESULTS 02/08/2024: BILATERAL MEDIAN MOTOR STUDIES SHOWED PROLONGED DML'S, NORMAL CMAP AMPLITUDES AND MNCV'S. BILATERAL ULNAR MOTOR STUDIES SHOWED NORMAL DMLS, CMAP AMPLITUDES AND MNCVS. RIGHT MEDIAN ORHODROMIC SENSORY STUDY SHOWED NO RESPONSE. LEFT MEDIAN ORTODROMIC SENSORY STUDY SHOWED PEAK LATENCIES, SNAP AMPLITUDE AND SLOW SNCV. BILATERAL ULNAR ORTHODROMIC SENSORY STUDIES SHOWED NORMAL PEAK LATENCIES, SNAP AMPLITUDES AND SNCVS. LEFT RADIAL ANTIDROMIC SENSORY STUDY SHOWED NORMAL PEAK LATENCY, SNAP AMPLITUDE AND SNCV EMG. THIS IS AN ABNORMAL STUDY THERE IS ELECTROPHYSIOLOGICAL EVIDENCE OF MODERATE BILATERAL CARPAL TUNNEL SYNDROME, RIGHT WORSE THAN LEFT. /es/ RALPH ESPINOZA V15 [facility] NURSE PRACTITIONER Signed: 02/10/2024 16:26 Receipt Acknowledged By: 02/12/2024 09:12 /es/ NOELLE MAGALLANESN RN REGISTERED NURSE 02/18/2024 10:02 /es/ Kodak Morton MD Staff Physician --- Original Document --- 01/06/24 V15 [facility] URGENT CARE VISIT: PRIMARY CARE TEMPLATE Patient is a 38 year old (Jan) WHITE MALE. Patient's identity was verified with at least 2 personal identifiers. *Appointment type: Type of Visit: Phone Visit: Visit conducted by telephone. Location/emergency number confirmed. Emergency contact information was obtained as follows: Confirmed 's Non-VA location for this appointment: Patient's current address [address] [place] [address] Patient's Primary NOK: JOSÉ MENSAH Relation: EXTENDED FAMILY M [address] [place], [place] [address] Chief Complaint: Joint pain History of Present Illness: 38 year old male presents for a [facility] Telephone visit with complaints of joint pain mainly in his wrists and hands. He says that the pain is mainly in his wrists and hands. He denies injury to either hands or wrists. He says that typing on the computer a lot and his fingers will feel numb after a while. He denies; redness, bruising, or swelling in either hands or wrists. PMH/Active Problem List 1) Chronic back pain 2) Sleep apnea 3) Posttraumatic stress disorder 4) Major depressive disorder 5) Steatosis of liver 6) Obesity 7) Exposure to potentially hazardous substance 8) Allergic rhinitis 9) Insomnia Problem list was reviewed. SOCIAL HISTORY Noncontributory Family History: Noncontributory MEDICATIONS: Active and Recently Outpatient Medications (including Supplies): Active Outpatient Medications [...] RINSE MOUTH AND SPIT AFTER EACH USE. Inactive Outpatient Medications Status 1) CETIRIZINE HCL 10MG TAB TAKE ONE TABLET BY MOUTH ONCE A DAY FOR ALLERGY SYMPTOMS 2) HC 1%/NEOMYCIN 3.5MG/POLYMYXIN OTIC SUSP INSTILL 4 DROPS IN TO AFFECTED EAR(S) THREE TIMES A DAY FOR BACTERIAL EAR INFECTION ([place] WE[place]) 3) MELATONIN 3MG CAP/TAB TAKE TWO CAP/TAB BY MOUTH AT BEDTIME FOR SLEEP MAY TAKE ONE ADDITIONAL TABLET/CAPSULE FOR A TOTAL OF 3 TABLETS/CAPSULES IF NEEDED. 6 Total Medications Compared newly ordered medications and medication changes to active medications and non-VA medications, and then reviewed medications with patient and/or caregiver. All discrepancies noted and reconciled. Patient, or caregiver, was provided with reconciled medications list and advised to provide to all non VA providers. Potential adverse reactions of new medications were discussed with the patient. REVIEW OF SYSTEMS As per HPI, otherwise unremarkable. PHYSICAL EXAMINATION Telephone visit: [facility] telephone visit, limited exam, A&O x3, NAD. Speaks clearly and appropriately. VITALS Most recent vital signs: No data available BMI: 31.7 ASSESSMENT/PLAN 1.Bilateral wrist/hand pain, possible carpal tunnel syndrome. Advised may take OTC Ibuprofen two tablets orally every six hours as needed with food, not to exceed 2400 mg per day, while symptomatic. Advised may alternate and take Tylenol 500 mg tablet, one to two tablets orally every eight hours as needed, not to exceed 3000 mg per day, while symptomatic. This Provider ordered an EMG Study of upper extremities and advised Patient I will contact him with results when completed. Shared medical decision making occurred during this visit with the [place]. Questions answered and [place] is agreeable with treatment plan. was advised to seek medical treatment if symptoms do not improve and or worsens. FOLLOW UP: Advised to keep all scheduled medical and follow-up appointments. Total time spent on visit: 12 minutes /nataliia/ RALPH ESPINOZA V15 [facility] NURSE PRACTITIONER Signed: 01/06/2024 17:16 Receipt Acknowledged By: 01/07/2024 11:55 /nataliia/ NOELLE MAGALLANESN RN REGISTERED NURSE 01/08/2024 13:02 /nataliia/ Kodak Morton MD Staff Physician RALPH ESPINOZA [facility] Jan 06, 2024 05:00 PM URGENT CARE NOTE: LOCAL TITLE: V15 [facility] URGENT CARE VISIT STANDARD TITLE: URGENT CARE NOTE DATE OF NOTE: JAN 06, 2024@17:00 ENTRY DATE: JAN 06, 2024@17:01:02 AUTHOR: RALPH ESPINOZA COSIGNER: URGENCY: STATUS: COMPLETED 5 [facility] URGENT CARE VISIT Has ADDENDA PRIMARY CARE TEMPLATE Patient is a 38 year old (Jan) WHITE MALE. Patient's identity was verified with at least 2 personal identifiers. *Appointment type: Type of Visit: Phone Visit: Visit conducted by telephone. Location/emergency number confirmed. Emergency contact information was obtained as follows: Confirmed [place]'s Non-VA location for this appointment: Patient's current address [address] [place] [address] Patient's Primary NOK: JOSÉ MENSAH Relation: EXTENDED FAMILY M [address] [facility] [place], [place] [address] Chief Complaint: Joint pain History of Present Illness: 38 year old male presents for a [facility] Telephone visit with complaints of joint pain mainly in his wrists and hands. He says that the pain is mainly in his wrists and hands. He denies injury to either hands or wrists. He says that typing on the computer a lot and his fingers will feel numb after a while. He denies; redness, bruising, or swelling in either hands or wrists. PMH/Active Problem List 1) Chronic back pain 2) Sleep apnea 3) Posttraumatic stress disorder 4) Major depressive disorder 5) Steatosis of liver 6) Obesity 7) Exposure to potentially hazardous substance 8) Allergic rhinitis 9) Insomnia Problem list was reviewed. SOCIAL HISTORY Noncontributory Family History: Noncontributory MEDICATIONS: Active and Recently Outpatient Medications (including Supplies): Active Outpatient Medications [...] RINSE MOUTH AND SPIT AFTER EACH USE. Inactive Outpatient Medications Status 1) CETIRIZINE HCL 10MG TAB TAKE ONE TABLET BY MOUTH ONCE A DAY FOR ALLERGY SYMPTOMS 2) HC 1%/NEOMYCIN 3.5MG/POLYMYXIN OTIC SUSP INSTILL 4 DROPS IN TO AFFECTED EAR(S) THREE TIMES A DAY FOR BACTERIAL EAR INFECTION ([place]) 3) MELATONIN 3MG CAP/TAB TAKE TWO CAP/TAB BY MOUTH AT BEDTIME FOR SLEEP MAY TAKE ONE ADDITIONAL TABLET/CAPSULE FOR A TOTAL OF 3 TABLETS/CAPSULES IF NEEDED. 6 Total Medications Compared newly ordered medications and medication changes to active medications and non-VA medications, and then reviewed medications with patient and/or caregiver. All discrepancies noted and reconciled. Patient, or caregiver, was provided with reconciled medications list and advised to provide to all non [place] providers. Potential adverse reactions of new medications were discussed with the patient. REVIEW OF SYSTEMS As per HPI, otherwise unremarkable. PHYSICAL EXAMINATION Telephone visit: [facility] telephone visit, limited exam, A&O x3, NAD. Speaks clearly and appropriately. VITALS Most recent vital signs: No data available BMI: 31.7 ASSESSMENT/PLAN 1.Bilateral wrist/hand pain, possible carpal tunnel syndrome. Advised may take OTC Ibuprofen two tablets orally every six hours as needed with food, not to exceed 2400 mg per day, while symptomatic. Advised may alternate and take Tylenol 500 mg tablet, one to two tablets orally every eight hours as needed, not to exceed 3000 mg per day, while symptomatic. This Provider ordered an EMG Study of upper extremities and advised Patient I will contact him with results when completed. Shared medical decision making occurred during this visit with the [place]. Questions answered and is agreeable with treatment plan. was advised to seek medical treatment if symptoms do not improve and or worsens. FOLLOW UP: Advised to keep all scheduled medical and follow-up appointments. Total time spent on visit: 12 minutes /es/ RALPH ESPINOZA V15 [place] [facility] NURSE PRACTITIONER Signed: 01/06/2024 17:16 Receipt Acknowledged By: 01/07/2024 11:55 /es/ NOELLE FLORES BSN RN REGISTERED NURSE 01/08/2024 13:02 /nataliia/ Kodak Morton MD Staff Physician 02/09/2024 ADDENDUM STATUS: COMPLETED Informed Patient results. This Provider ordered a RTC for Patient to be scheduled a follow up appointment with his PCP. Forwarding to PACT TEAM/PCP. EMG RESULTS 02/08/2024: BILATERAL MEDIAN MOTOR STUDIES SHOWED PROLONGED DML'S, NORMAL CMAP AMPLITUDES AND MNCV'S. BILATERAL ULNAR MOTOR STUDIES SHOWED NORMAL DMLS, CMAP AMPLITUDES AND MNCVS. RIGHT MEDIAN ORHODROMIC SENSORY STUDY SHOWED NO RESPONSE. LEFT MEDIAN ORTODROMIC SENSORY STUDY SHOWED PEAK LATENCIES, SNAP AMPLITUDE AND SLOW SNCV. BILATERAL ULNAR ORTHODROMIC SENSORY STUDIES SHOWED NORMAL PEAK LATENCIES, SNAP AMPLITUDES AND SNCVS. LEFT RADIAL ANTIDROMIC SENSORY STUDY SHOWED NORMAL PEAK LATENCY, SNAP AMPLITUDE AND SNCV EMG. THIS IS AN ABNORMAL STUDY THERE IS ELECTROPHYSIOLOGICAL EVIDENCE OF MODERATE BILATERAL CARPAL TUNNEL SYNDROME, RIGHT WORSE THAN LEFT. /nataliia/ RALPH ESPINOZA V15 [facility] NURSE PRACTITIONER Signed: 02/10/2024 16:26 Receipt Acknowledged By: * AWAITING SIGNATURE * NOELLE FLORES * AWAITING SIGNATURE * KODAK MORTON CONSTANCE D [facility]
--- OUTSIDE RECORDS SUMMARY | 2024-03-31 01:01 | XMS_ITS | Encounter Summary ---
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 Name Role Phone KODAK MORTON Primary [...] CHOIC E PREFE RR Apr 13, 2020 [id number] [phone] BOOGIE BAILEY ANDON PATIENT ANTHEM [employer] [place] PREFERRED PROVIDER ORGANIZAT ION (PPO) BLUE CHOIC E PREFE RR Apr 13, 2020 [id number] [phone] LYNN,BOOGIE ANDON PATIENT [employer] [employer] [place] PREFERRED PROVIDER ORGANIZAT ION (PPO) BLUE CHOIC E PREFE RR Apr 13, 2020 [id number] [phone] BOOGIE BAILEY ANDON PATIENT [employer] [place] PREFERRED PROVIDER ORGANIZAT ION (PPO) BLUE CHOIC E PREFE RR Apr 13, 2020 [id number] [phone] BOOGIE BAILEY PATIENT PRIME THERAPEUTI CS RX PRESCRIPT ION [employer] L [place] Apr 13, 2020 [id number] [phone] BOOGIE BAILEY PATIENT [facility] 2018 TRICA RE May 10, 2019 SELECT [id number] BOOGIE BAILEY PATIENT Selected Encounter This section includes the information on record at [place] for the Encounter. Date/Time Encounter Type Encounter Description Reason Provider Source Jan 09, 2024 03:00 PM OFF/OP EST AUGUST X REQ PHY/QHP PRIMARY CARE/MEDICINE ICD-10-CM Z23 Encounter for immunization MICHELLE JOHNSTON E Encounter Template Text not used by [place] Assessments - Encounter Diagnoses This section includes the primary and secondary diagnoses documented for the Encounter. Date/Time Primary/Secondary Diagnosis Diagnosis Name Provider Source Jan 09, 2024 03:08 PM PRIMARY Encounter for immunization MICHELLE JOHNSTON [facility] Plan of Treatment: Future Appointments (+ 6 months) and Future Tests (+/- 45 days) The Plan of Treatment section includes future care activities for the patient from all [place] treatmentfacilities. This section includes future appointments and future orders which are active, pending or scheduled. Future Appointments This section includes appointments that were scheduled to occur 6 months from the date of the Encounter, up to a maximum of 20 appointments. The data comes from all [place] treatment facilities. Appointment Date/Time Appointment Type Appointme nt Facility Name Jan 14, 2024 09:00 AM AMBULATORY - MEDICINE [facility] Jan 14, 2024 10:00 AM AMBULATORY - MEDICINE [facility] Jan 26, 2024 01:00 PM AMBULATORY - MEDICINE [facility] Jan 28, 2024 01:45 PM AMBULATORY - REHAB MEDICIN E [facility] Feb 02, 2024 02:00 PM AMBULATORY - PSYCHIATRY [facility] Feb 08, 2024 09:00 AM AMBULATORY - NEUROLOGY [facility] Feb 12, 2024 02:30 PM AMBULATORY - NONE [facility] Feb 17, 2024 01:00 PM AMBULATORY - MEDICINE [facility] Feb 25, 2024 09:30 AM AMBULATORY - MEDICINE [facility] Mar 05, 2024 08:43 AM AMBULATORY - MEDICINE [facility] Mar 16, 2024 10:15 AM AMBULATORY - SURGERY . Kelsie [facility] Mar 21, 2024 12:14 PM AMBULATORY - MEDICINE [facility] Apr 01, 2024 10:00 AM AMBULATORY - PSYCHIATRY [facility] Apr 28, 2024 03:00 PM AMBULATORY - MEDICINE [facility] May 05, 2024 11:30 AM AMBULATORY - MEDICINE [facility] May 27, 2024 11:00 AM AMBULATORY - MEDICINE [facility] Active, Pending, and Scheduled Orders This section includes a listing of several types of active, pending, and scheduled orders, including clinic medications orders, diagnostic test orders, procedure orders and consult orders; where the start date of the order is 45 days before the date of the Encounter or 45 days after the date of theEncounter. The data comes from all [place] treatment facilities. Test Date/Time Test Type Test Details Facility Name Jan 26, 2024 02:11 PM Consult Order RHEUMATOLO GY OUTPATIENT [facility] Feb 17, 2024 01:16 PM Consult Order PLASTIC SHELLEY RGERY OUTPT [facility] Lab Results: +/- 30 days of [...] Range Comment Jan 26, 2024 02:[address] [facility] CRP Specimen Type: PLASMA No comment entered. Ordering Provider: FRANSISCO MORTON Report Released Date/Time: Jan 26, 2024 02:11 PM Reporting Lab: [facility] [address] [facility] [address] Performing Lab: [facility] [address] [facility] [address] CRP 0.6 mg/dL H 0-0.5 Jan 26, 2024 02:[address] [facility] ESR ISED(STL) Specimen Type: BLOOD No comment entered. Ordering Provider: FRANSISCO MORTON Report Released Date/Time: Jan 26, 2024 02:11 PM Reporting Lab: [facility] [address] [facility] [address] Performing Lab: [facility] [address] [facility] [address] ESR ISED(STL) 35 mm/h H 0-14 Jan 26, 2024 02:[address] [facility] RHEUMATOID FACTOR (STL) Specimen Type: SERUM No comment entered. Ordering Provider: FRANSISCO MORTON Report Released Date/Time: Jan 26, 2024 02:19 PM Reporting Lab: [facility] [address] [facility] [address] Performing Lab: [place] [address] [facility] [address] RHEUMATOID FACTOR (STL) <15.0 0-29 Vital Signs: All taken on the encounter date This section contains inpatient and outpatient Vital Signs collected on the date of the Encounter. Date/Time Temperature Pulse Blood Pressure Respiratory Rate SP02 Pain Height Weight Body Mass Index Source Jan 09, 2024 11:41 AM 97.6 106 127/88 18 98 7 [facility] Immunizations: All administered on the encounter date This section contains immunizations associated to the Encounter. Immunization Series Date Issued Reaction Comments INFLUENZA, SPLIT VIRUS, TRIVALENT, PF Jan 08, 2 024 Social History: Smoking Status (Most current) and Tobacco Use (All prior to encounter date) This section includes the most current, and the historical, smoking and tobacco- related health factors from the [place] facility where the Encounter took place. Current Smoking Status This section includes the most current smoking, or tobacco-related health factor, from the [place] facility where the Encounter took place. Date/Time Current Smoking Status Comment Nicolas allen Feb 26, 2021 03:59 PM VA-TOBACCO NEVER USED [facility] Radiology Reports: +/- 30 days [...] the Encounter. The data comes from all [place] treatment facilities. Date/Time Radiology Report Provider Source Jan 28, 2024 02:20 PM HAND,RIGHT,3 OR [place] RE VIEWS: JORDYN BAILEY [id number] -1985 M Exm Date: JAN 28, 2024@14:20 Req Phys: KODAK MORTON Pat Loc: [facility] PACT B5 NEW PATIENT (Re Img Loc: [facility] RADIOLOGY SUITE Service: Unknown [facility] [address] [place] [address] (Case [id number] COMPLETE) HAND,RIGHT,3 OR MORE VIEWS (RAD Detailed) CPT:93196 Proc Modifiers : RIGHT Reason for Study: right hand feell stiff and pain specialy in morning Clinical History: right hand feell stiff and pain specialy in morning Report Status: Verified Date Reported: JAN 29, 2024 Date Verified: JAN 29, 2024 Pr Intern E-Sig:/ES/ART ENCARNACION MD Report: Case #[id number]. Right hand examination. Finding: Three views of the right hand examination shows no fracture dislocation. No evidence of lytic or blastic bony lesion. No joint space narrowing or marginal erosion. No soft tissue swelling, radiopaque foreign body or abnormal calcification. Impression: No fracture dislocation or arthritic change. Primary Interpreting Staff: ART ENCARNACION MD, Staff Physician - Radiologist (Pr Intern) /ART ANDRADE [facility] Jan 28, 2024 02:20 PM WRIST,RIGHT,3 OR M ORE VIEWS: JORDYN BAILEY [id number] -1985 M Exm Date: JAN 28, 2024@14:20 Req Phys: KODAK MORTON Loc: [facility] PACT B5 NEW PATIENT (Re Img Loc: -MAIN RADIOLOGY SUITE Service: Unknown [facility] [address] [place] [address] (Case [id number] COMPLETE) WRIST,RIGHT,3 OR MORE VIEWS (RAD Detailed) CPT:27091 Proc Modifiers : RIGHT Reason for Study: right writs pain Clinical History: c/o right wroist pain Report Status: Verified Date Reported: JAN 29, 2024 Date Verified: JAN 29, 2024 Pr Intern E-Sig:/NATALIIA/ART ENCARNACION MD Report: Case #[id number]. Right [...] ART ENCARNACION MD, Staff Physician - Radiologist (Pr Intern) /ART ANDRADE [facility] Jan 28, 2024 02:20 PM WRIST,LEFT, 3 OR M ORE VIEWS: LYNNLISAJORDYN ANTHONY [id number] -1985 M Exm Date: JAN 28, 2024@14:20 Req Phys: KODAK MORTON Pat Loc: [facility] PACT B5 NEW PATIENT (Re Img Loc: -[facility] RADIOLOGY SUITE Service: [facility], [facility] [address] [place] [address] (Case [id number] COMPLETE) WRIST,LEFT, 3 OR MORE VIEWS (RAD Detailed) CPT:43543 Proc Modifiers : LEFT Reason for Study: c/o left wrist pain Clinical History: c/o left wrist pain Report Status: Verified Date Reported: JAN 29, 2024 Date Verified: JAN 29, 2024 Pr Intern E-Sig:/NATALIIA/ART ENCARNACION MD Report: Case #[id number]. Left wrist [...] ART ENCARNACION MD, Staff Physician - Radiologist (Pr Intern) /ART ANDRADE [facility] Jan 28, 2024 02:20 PM HAND,LEFT,3 OR MOR E VIEWS: JORDYN BAILEY [id number] -1985 M Exm Date: JAN 28, 2024@14:20 Req Phys: KODAK MORTON Loc: -[facility] PACT B5 NEW PATIENT (Re Img Loc: -MAIN RADIOLOGY SUITE Service: Unknown [facility] [address] [place] [address] (Case [id number] COMPLETE) HAND,LEFT,3 OR MORE VIEWS (RAD Detailed) CPT:00257 Proc Modifiers : LEFT Reason for Study: left hand feell stiff and pain specialy in morning Clinical History: eft hand feell stiff and pain specialy in morning Report Status: Verified Date Reported: JAN 29, 2024 Date Verified: JAN 29, 2024 Pr Intern E-Sig:/ES/ART ENCARNACION MD Report: Case #[id number]. Left hand examination. Finding: Three views of the left hand examination shows no fracture dislocation. No evidence of lytic or blastic bony lesion. No joint space narrowing or marginal erosion. No soft tissue swelling, radiopaque foreign body or abnormal calcification. Impression: No fracture dislocation or arthritic change. Primary Interpreting Staff: ART ENCARNACION MD, Staff Physician - Radiologist (Pr Intern) /ART ANDRADE [facility] Jan 09, 2024 12:[address] CERVICAL SPINE W/O CONT: JORDYN BAILEY ANTHONY [id number] -1985 M Exm Date: JAN 09, 2024@12:18 Req Phys: BING ORTIZ Loc: -EMERGENCY DEPT 2ND SHIFT (R Img Loc: -CT IMAGING Service: Unknown [facility] [address] [place] [address] (Case [id number] COMPLETE) CT CERVICAL SPINE W/O CONT (CT Detailed) CPT:34135 Reason for Study: Neck pain, bilateral arm pain/weakness Clinical History: Responsible Attending: Yovany Attending Contact Number: [phone] Resident Contact Number: Neck pain, bilateral arm pain/weakness Allergies listed in CPRS chart: SHELLFISH Creatinine/eGFR: STL EGFR (within one year). CREATININE 0.95 mg/dL (11/25/23 11:00) Wt: 220.4 lb [99.97 kg] (11/25/2023 10:03) History of: Renal failure, chronic or acute renal disease: NO Report Status: Verified Date Reported: JAN 09, 2024 Date Verified: JAN 09, 2024 Pr Intern E-Sig: Report: CT CERVICAL SPINE W/O CONT Clinical History: Neck pain, bilateral arm pain/weakness Comparison: No priors available Technique: Noncontrast CT of the cervical spine was performed. The study was protocoled and supervised at the local [place] facility. 1116 images were subsequently received by the [place] National Teleradiology Program (NTP) for interpretation. Total [...] dedicated MRI. READING PHYSICIAN: Ifrah Guzmán M.D. -[phone] 01/09/2024 11:23 [facility] National Teleradiology Program [phone] (For Medical Practitioner Use Only) Attention Patients / Veterans: If you have questions or concerns about these test results, please contact your ordering provider or primary care team. Primary Interpreting Staff: RADIOLOGY,OUTSIDE SERVICE, Staff Physician / RADIOLOGY,OUTSIDE SERVICE [facility] Encounter Notes: All associated encounter notes This section contains the clinical notes associated to the Encounter. Date/Time Encounter Note(s) Provider Source Jan 09, 2024 03:06 PM IMMUNIZATION NOTE: LOCAL TITLE: FLU SHOT CLINIC ST STANDARD TITLE: IMMUNIZATION NOTE DATE OF NOTE: JAN 09, 2024@15:06 ENTRY DATE: JAN 09, 2024@15:06:23 AUTHOR: BROWN,MICHELLE J EXP COSIGNER: URGENCY: STATUS: COMPLETED Influenza Immunization: Influenza, Trivalent, Preservative Free (Fluarix-Syringe) Administered: INFLUENZA, SPLIT VIRUS, TRIVALENT, PF Date Administered: Jan 09, 2024 15:00 Series: Complete Ep Tech: [facility] Lot: [id number] Exp Date: Oct 10, 2024 FORMERLY NAMED [facility]: [phone] Admin Route/Site: INTRAMUSCULAR/RIGHT DELTOID Dosage: 0.5mL Vaccine Information Statement(s): INFLUENZA(FLU) VACC(INACTIVATED OR RECOMBINANT)VIS Nov 16, 2020 (QATARI) Order By: Policy Administered By: Michelle Johnston Override Reason: Mathis decided to get the vaccine The Influenza Vaccine Information Statement (VIS) was reviewed with the patient/caregiver which lists the benefits and risks of the vaccine and the risks of not receiving the Influenza vaccine. The patient/caregiver denied any prior severe reaction to this vaccine or its components or a severe allergic reaction, such as anaphylaxis, to any vaccine or any injectable therapy. The patient/caregiver gave verbal consent to receive the vaccine. /nataliia/ MICHELLE JOHNSTON LPN LICENSED PRACTICAL NURSE Signed: 01/09/2024 15:08 MICHELLE JOHNSTON [facility]
--- OUTSIDE RECORDS SUMMARY | 2024-03-31 01:01 | XMS_ITS | Encounter Summary ---
Author Name [facility] [facility] [place] Address [address] [place] [address] Care Team Providers Care Fibre Composite Technician Name Role Phone KODAK MORTON Primary [...] CHOIC E PREFE RR Apr 13, 2020 [id number] [phone] BOOGIE BAILEY ANDON PATIENT ANTHEM [employer] [place] PREFERRED PROVIDER ORGANIZAT ION (PPO) BLUE CHOIC E PREFE RR Apr 13, 2020 [id number] [phone] LYNN,BOOGIE ANDON PATIENT AN[employer] [employer] [place] PREFERRED PROVIDER ORGANIZAT ION (PPO) BLUE CHOIC E PREFE RR Apr 13, 2020 [id number] [phone] BOOGIE BAILEY PATIENT [place] PREFERRED PROVIDER ORGANIZAT ION (PPO) BLUE CHOIC E PREFE RR Apr 13, 2020 [id number] [phone] BOOGIE BAILEY PATIENT PRIME THERAPEUTI CS RX PRESCRIPT ION BCBSI L [place] Apr 13, 2020 [id number] [id number] [phone] BOOGIE BAILEY PATIENT [facility] 2018 TRICA RE May 10, 2019 [facility] [id number] BOOGIE BAILEY PATIENT Selected Encounter This section includes the information on record at [place] for the Encounter. Date/Time Encounter Type Encounter Description Reason Provider Source Jan 09, 2024 11:29 AM EMERGENCY DEPT VISIT [facility] EMERGENCY DEPT ICD-10-CM G56.03 Carpal tunnel syndrome, bilateral upper limbs YOVANY,CHRIS N IHE Encounter Template Text not used by [place] Assessments - Encounter Diagnoses This section includes the primary and secondary diagnoses documented for the Encounter. Date/Time Primary/Secondary Diagnosis Diagnosis Name Provider Source Jan 09, 2024 03:03 PM PRIMARY Carpal tunnel syndrome, bilateral upper limbs YOVANY,CHRIS N [facility] Jan 09, 2024 03:03 PM SECONDARY Pain in unspecified wrist YOVANY,CHRIS N [facility] Plan of Treatment: Future [...] 14, 2024 09:00 AM AMBULATORY - MEDICINE [facility] Jan 14, 2024 10:00 AM AMBULATORY - MEDICINE [facility] Jan 26, 2024 01:00 PM AMBULATORY - MEDICINE [facility] Jan 28, 2024 01:45 PM AMBULATORY - REHAB MEDICIN E [facility] Feb 02, 2024 02:00 PM AMBULATORY - PSYCHIATRY [facility] Feb 08, 2024 09:00 AM AMBULATORY - NEUROLOGY [facility] Feb 12, 2024 02:30 PM [facility]ORY - NONE [facility] Feb 17, 2024 01:00 PM AMBULATORY - MEDICINE [facility] Feb 25, 2024 09:30 AM AMBULATORY - MEDICINE [facility] Mar 05, 2024 08:43 AM AMBULATORY - MEDICINE [facility] Mar 16, 2024 10:15 AM AMBULATORY - SURGERY [facility] Mar 21, 2024 12:14 PM AMBULATORY - MEDICINE [facility] Apr 01, 2024 10:00 AM AMBULATORY - PSYCHIATRY [facility] Apr 28, 2024 03:00 PM AMBULATORY - MEDICINE [facility] May 05, 2024 11:30 AM AMBULATORY - MEDICINE [facility] May 27, 2024 11:00 AM AMBULATORY - MEDICINE [facility] Active, Pending, and Scheduled Orders This [...] 02:11 PM Consult Order RHEUMATOLO GY OUTPATIENT [facility] Authorization Coordinator'[facility] Feb 17, 2024 01:16 PM Consult Order PLASTIC SHELLEY RGERY OUTPT [facility] Lab Results: +/- 30 days of the encounter This section includes the Chemistry and Hematology Lab Results on record with [place] for the patient. Radiology Reports and Pathology Reports are provided separately, in subsequent sections. Lab Results This section contains the Chemistry/Hematology Results that were resulted 30 days before or 30 daysafter the date of the Encounter. Date/Time Source Result Type Result - Unit Interpretation Reference Range Comment Jan 26, 2024 02:47 PM [facility] ESR ISED([facility]) Specimen Type: BLOOD No comment entered. Ordering Provider: FRANSISCO MORTON Report Released Date/Time: Jan 26, 2024 02:11 PM Reporting Lab: [facility] [address] [facility] [address] Performing Lab: [facility] [address] [facility] [address] ESR ISED(STL) 35 mm/h H 0-14 Jan 26, 2024 02:47 PM [facility] CRP Specimen Type: PLASMA No comment entered. Ordering Provider: FRANSISCO MORTON Report Released Date/Time: Jan 26, 2024 02:11 PM Reporting Lab: [address] [address] Performing Lab: [address] [address] CRP 0.6 mg/dL H 0-0.5 Jan 26, 2024 02:47 PM [facility] RHEUMATOID FACTOR (STL) Specimen Type: SERUM No comment entered. Ordering Provider: FRANSISCO MORTON Report Released Date/Time: Jan 26, 2024 02:19 PM Reporting Lab: [address] [address] Performing Lab: [address] [address] RHEUMATOID FACTOR (STL) <15.0 0-29 Vital Signs: All taken on the encounter date This section contains inpatient and outpatient Vital Signs collected on the date of the Encounter. Date/Time Temperature Pulse Blood Pressure Respiratory Rate SP02 Pain Height Weight Body Mass Index Source Jan 09, 2024 11:41 AM 97.6 106 127/88 18 98 7 [facility] Social History: Smoking Status [...] 2021 03:59 PM VA-TOBACCO NEVER USED [facility] Radiology Reports: +/- 30 days of the [...] HAND,RIGHT,3 OR MO RE VIEWS: JORDYN BAILEY [id number] -1985 M Exm Date: JAN 28, 2024@14:20 Req Phys: KODAK MORTON Loc: [facility] PACT B5 NEW PATIENT (Re Img Loc: -MAIN RADIOLOGY SUITE Service: Unknown [facility] [address] [place] [address] (Case [id number] COMPLETE) HAND,RIGHT,3 OR MORE VIEWS (RAD Detailed) CPT:96171 Proc Modifiers : RIGHT Reason for Study: right hand feell stiff and pain specialy in morning Clinical History: right hand feell stiff and pain specialy in morning Report Status: Verified Date Reported: JAN 29, 2024 Date Verified: JAN 29, 2024 Broom Maker E-Sig:/ES/ART ENCARNACION MD Report: Case #[id number]. Right hand examination. Finding: Three views of the right hand examination shows no fracture dislocation. No evidence of lytic or blastic bony lesion. No joint space narrowing or marginal erosion. No soft tissue swelling, radiopaque foreign body or abnormal calcification. Impression: No fracture dislocation or arthritic change. Primary Interpreting Staff: ART ENCARNACION MD, Staff Physician - Radiologist (Broom Maker) /ART ANDRADE [facility] Jan 28, 2024 02:20 PM WRIST,RIGHT,3 OR M ORE VIEWS: JORDYN BAILEY [id number] -1985 M Exm Date: JAN 28, 2024@14:20 Req Phys: KODAK MORTON Loc: [facility] PACT B5 NEW PATIENT (Re Img Loc: -MAIN RADIOLOGY SUITE Service: Unknown [facility] [address] [place] [address] (Case [id number] COMPLETE) WRIST,RIGHT,3 OR MORE VIEWS (RAD Detailed) CPT:90451 Proc Modifiers : RIGHT Reason for Study: right writs pain Clinical History: c/o right wroist pain Report Status: Verified Date Reported: JAN 29, 2024 Date Verified: JAN 29, 2024 Broom Maker E-Sig:/NATALIIA/ART ENCARNACION MD Report: Case #[id number]. Right [...] ART ENCARNACION MD, Staff Physician - Radiologist (Broom Maker) /ART ANDRADE [facility] Jan 28, 2024 02:20 PM HAND,LEFT,3 OR MOR E VIEWS: LYNNJORDYN ANTHONY [id number] -1985 M Exm Date: JAN 28, 2024@14:20 Req Phys: KODAK MORTON Pat Loc: [facility] PACT B5 NEW PATIENT (Re Img Loc: -[facility] RADIOLOGY SUITE Service: [facility], [address] [address] (Case [id number] COMPLETE) HAND,LEFT,3 OR MORE VIEWS (RAD Detailed) CPT:40790 Proc Modifiers : LEFT Reason for Study: left hand feell stiff and pain specialy in morning Clinical History: eft hand feell stiff and pain specialy in morning Report Status: Verified Date Reported: JAN 29, 2024 Date Verified: JAN 29, 2024 Broom Maker E-Sig:/NATALIIA/ART ENCARNACION MD Report: Case #[id number]. Left hand examination. Finding: Three views of the left hand examination shows no fracture dislocation. No evidence of lytic or blastic bony lesion. No joint space narrowing or marginal erosion. No soft tissue swelling, radiopaque foreign body or abnormal calcification. Impression: No fracture dislocation or arthritic change. Primary Interpreting Staff: ART ENCARNACION MD, Staff Physician - Radiologist (Broom Maker) /ART ANDRADE [facility] Jan 28, 2024 02:20 PM WRIST,LEFT, 3 OR M ORE VIEWS: JORDYN BAILEY [id number] -1985 M Exm Date: JAN 28, 2024@14:20 Req Phys: KODAK MORTON Loc: -[facility] PACT B5 NEW PATIENT (Re Img Loc: -MAIN RADIOLOGY SUITE Service: Unknown [address] [address] (Case [id number] COMPLETE) WRIST,LEFT, 3 OR MORE VIEWS (RAD Detailed) CPT:56648 Proc Modifiers : LEFT Reason for Study: c/o left wrist pain Clinical History: c/o left wrist pain Report Status: Verified Date Reported: JAN 29, 2024 Date Verified: JAN 29, 2024 Broom Maker E-Sig:/ES/ART ENCARNACION MD Report: Case #[id number]. Left [...] ART ENCARNACION MD, Staff Physician - Radiologist (Broom Maker) /ART ANDRADE [facility] Jan 09, 2024 12:[address] CERVICAL SPINE W/O CONT: JORDYN BAILEY ANTHONY [id number] -1985 M Exm Date: JAN 09, 2024@12:18 Req Phys: BHARGAV PEDROZA Loc: -EMERGENCY DEPT 2ND SHIFT (R Img Loc: -CT IMAGING Service: Unknown [address] [address] (Case [id number] COMPLETE) CT CERVICAL SPINE W/O CONT (CT Detailed) CPT:28729 Reason for Study: Neck pain, bilateral arm pain/weakness Clinical History: Responsible Attending: Yovany Attending Contact Number: [phone] Resident Contact Number: Neck pain, bilateral arm pain/weakness Allergies listed in CPRS chart: SHELLFISH Creatinine/eGFR: STL EGFR (within one year). CREATININE 0.95 mg/dL (11/25/23 11:00) Wt: 220.4 lb [99.97 kg] (11/25/2023 10:03) History of: Renal failure, chronic or acute renal disease: NO Report Status: Verified Date Reported: JAN 09, 2024 Date Verified: JAN 09, 2024 Broom Maker E-Sig: Report: CT CERVICAL SPINE W/O CONT [...] dedicated MRI. READING PHYSICIAN: Ifrah Guzmán M.D. -[phone] 01/09/2024 11:23 [facility] National Teleradiology Program [phone] (For Medical Practitioner Use Only) Attention Patients / Veterans: If you have questions or concerns about these test results, please contact your ordering provider or primary care team. Primary Interpreting Staff: RADIOLOGY,OUTSIDE SERVICE, Staff Physician / RADIOLOGY,OUTSIDE SERVICE [facility] Encounter Notes: All associated encounter notes This section contains the clinical notes associated to the Encounter. Date/Time Encounter Note(s) Provider Source Jan 09, 2024 02:10 PM ACCOUNTING OF DISC LOSURES NOTE: LOCAL TITLE: STATE PRESCRIPTION DRUG MONITORING PROGRAM STANDARD TITLE: ACCOUNTING OF DISCLOSURES NOTE DATE OF NOTE: JAN 09, 2024@14:10:12 ENTRY DATE: JAN 09, 2024@14:10:12 AUTHOR: BHARGAV PEDROZA EXP COSIGNER: URGENCY: STATUS: COMPLETED This PDMP query was submitted by Bhargav Pedroza MD. The clinical justification for this PDMP query is to review controlled substances prescribed outside of the [place], and any additional information that may become available, as an important component of standard clinical care, and in accordance with [facility] policy. Patient information was shared with the PDMP [place]. No prescription(s) for controlled substances outside the [place] were found in the last 90 days. /nataliia/ BHARGAV PEDROZA MD MEDICINE MOD Signed: 01/09/2024 14:10 BHARGAV PEDROZA [facility] Jan 09, 2024 12:18 PM PHYSICIAN EMERGENC Y DEPT NOTE: LOCAL TITLE: EMERGENCY DEPARTMENT ST STANDARD TITLE: PHYSICIAN EMERGENCY DEPT NOTE DATE OF NOTE: JAN 09, 2024@12:18 ENTRY DATE: JAN 09, 2024@12:18:25 AUTHOR: BHARGAV PEDROZA EXP COSIGNER: URGENCY: STATUS: COMPLETED TRIAGE CHIEF COMPLAINT: Bilateral wrist pain HPI: Patient presents with complaints of worsening bilateral wrist pain with hand pain and numbness/tingling to fingers ongoing for the past few months. States that he has also noticed some weakness to both upper extremities intermittently mostly limited to below the elbow. 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 Denies any injuries. No other complaints at this time. REVIEW OF SYSTEMS: See HPI for further details. All 10 systems reviewed and otherwise negative unless otherwise detailed herein. PAST MEDICAL HISTORY: 1) Chronic back pain 2) Sleep apnea 3) Posttraumatic stress disorder 4) Major depressive disorder 5) Steatosis of liver 6) Obesity 7) Exposure to potentially hazardous substance 8) Allergic rhinitis 9) Insomnia CURRENT MEDICATIONS: Active Outpatient Medications (including Supplies): Active [...] RINSE MOUTH AND SPIT AFTER EACH USE. I have reviewed the patient's medication list with the patient and/or his/her care-television installer. Any medication discrepancies have been resolved. Patient will be provided with an updated list of his/her medication(s). SURGICAL HISTORY: not pertinent FAMILY HISTORY: not pertinent SOCIAL HISTORY: not pertinent Social History Main Topics: Smoking status: No data available for: Current Tobacco User Alcohol Use: not indorsed ____ Illicit Drug Use: not indorsed Sexual Activity: not pertinent Other Topics of Concern: none ALLERGIES: Review of patient's allergies indicates: SHELLFISH PHYSICAL EXAM: VITAL SIGNS: 127/88 (01/09/2024 11:41)106 (01/09/2024 11:41)98% (01/09/2024 11:41)97.6 F [36.4 C] (01/09/2024 11:41)18 (01/09/2024 11:41)The OBJECT PAIN SCORE was NOT found...Contact IRM. (LAST 20 72H)The OBJECT was NOT found...Contact IRM. CONSTITUTIONAL: No acute distress, Non-toxic appearance HENT: airway patent, oropharynx clear EYES: Conj pink, sclera clear NECK: Normal range of motion, No tenderness, Supple EXTREMITIES: Normal range of motion, Intact distal pulses, No edema NEUROLOGIC: Alert & oriented x 3, No focal deficits appreciated on cursory screening exam SKIN: Warm, Dry, No erythema, No rash LAB CHEMISTRY & HEMATOLOGY No data available LAB MICROBIOLOGY No data available Date Procedure CPT Status Case # 01/09/2024 CT CERVICAL SPINE W/O CONT [id number] CERVICAL SPINE W/O CONT Exm Date: JAN 09, 2024@12:18 Req Phys: BHARGAV PEDROZA Loc: [facility]-EMERG[facility]Y DEPT 2ND SHIFT (R Img Loc: [facility]-CT IMAGING [facility] Service: Unknown [facility] [address] [place] [address] (Case [id number] COMPLETE) CT CERVICAL SPINE W/O CONT (CT Detailed) CPT:31448 Reason for Study: Neck pain, bilateral arm pain/weakness Clinical History: Responsible Attending: Yovany Attending Contact Number: [phone] Resident Contact Number: Neck pain, bilateral arm pain/weakness Allergies listed in CPRS chart: SHELLFISH Creatinine/eGFR: STL EGFR (within one year). CREATININE 0.95 mg/dL (11/25/23 11:00) Wt: 220.4 lb [99.97 kg] (11/25/2023 10:03) History of: Renal failure, chronic or acute renal disease: NO Report Status: Verified Date Reported: JAN 09, 2024 Date Verified: JAN 09, 2024 Broom Maker E-Sig: Report: CT CERVICAL SPINE W/O CONT [...] dedicated MRI. READING PHYSICIAN: Ifrah Guzmán M.D. -[phone] 01/09/2024 11:23 PDT [facility] National Teleradiology Program [phone] (For Medical Practitioner Use Only) Attention Patients / Veterans: If you have questions or concerns about these test results, please contact your ordering provider or primary care team. Primary Interpreting Staff: RADIOLOGY,OUTSIDE SERVICE, Staff Physician Magnesium Results: ____ Phosphorus Results: No PHOSPHOROUS data found No GLUCOSE,BLOOD-poct (STL) data found HGA1C 5.7 % 11/25/2023 11:00 HGA1C 5.6 % 05/20/2023 10:15 HGA1C 5.6 % 12/23/2022 09:57 HGA1C 5.4 % 02/27/2021 14:22 TSH: TSH 3.742 uIU/mL 12/23/2022 09:57 Collection DT Specimen Test Name Result Units Ref Range 11/25/2023 11:00 PLASMA CREATININE 0.95 mg/dL 0.7 - 1.3 11/25/2023 11:00 PLASMA UREA NITROGEN 10.5 mg/dL 9.0 - 25.0 11/25/2023 11:00 PLASMA GLUCOSE 89 mg/dL 72 - 99 11/25/2023 11:00 PLASMA SODIUM 137 mEq/L 136 - 145 11/25/2023 11:00 PLASMA POTASSIUM 4.3 mEq/L 3.5 - 5 11/25/2023 11:00 PLASMA CHLORIDE 106 mEq/L 98 - 107 11/25/2023 11:00 PLASMA CARBON DIOXIDE 23 mEq/L 22 - 31 11/25/2023 11:00 PLASMA CALCIUM 10.0 mg/dL 8.4 - 10.4 11/25/2023 11:00 PLASMA PROTEIN 9.2 H g/dL 6 - 8.6 11/25/2023 11:00 PLASMA ALBUMIN 4.5 g/dL 3.4 - 5 11/25/2023 11:00 PLASMA TOTAL BILIRUBIN 0.8 mg/dL 0.2 - 1.2 11/25/2023 11:00 PLASMA ALKALINE PHOSPHAT 89 U/L 40 - 150 11/25/2023 11:00 PLASMA AST/SGOT 49 H U/L 5 - 34 11/25/2023 11:00 PLASMA ALT/SGPT 85 H U/L 8 - 40 11/25/2023 11:00 PLASMA EGFR (CKD-EPI 202 105.1 Ref: >=60 Comment: No hemolysis noted. 11/25/2023 11:00 BLOOD HGA1C 5.7 % 4.0 - 6.0 CBC EO Oswald. date: 11/25/23 @ 11:00 TEST RESULT UNITS RANGE BASOPHILS, ABSOLUTE 0.02 10*3/uL 0.00-0.20 BASOPHILS, AUTO % 0 % EOSINOPHILS, ABSOLUTE 0.22 10*3/uL 0.00-0.60 EOSINOPHILS, AUTO % 5 % HCT 44.6 % 38.2-48.4 HGB 15.2 g/dL 13.1-16.8 LYMPHOCYTES, ABSOLUTE 1.33 10*3/uL 0.77-4.50 LYMPHOCYTES, AUTO % 29 % MCH 27.4 pg 27.0-34.0 MCHC 34.1 g/dL 33.0-36.0 MCV 80.5 fL 80.0-100.0 MONOCYTES, ABSOLUTE 0.63 10*3/uL 0.19-0.80 MONOCYTES, AUTO % 14 % MPV 10.6 fL 7.5-11.2 NEUTROPHILS, ABSOLUTE 2.37 10*3/uL 2.10-8.00 NEUTROPHILS, AUTO % 52 % PLT 229 10*3/uL 150-400 RBC 5.54 10*6/uL 4.10-5.70 RDW 13.3 % 11.8-15.1 WBC 4.6 10*3/uL 3.6-11.2 0 No TROPONIN EO data found No URINALYSIS EO data found No BRAIN NATRIURETIC PEPTIDE data found No URINE DRUG SCREEN EO data found ____ ECG IMPRESSION: none ED COURSE & MEDICAL DECISION MAKING: Nursing notes, medications, vital signs, allergies and pertinent labs & imaging studies reviewed (see chart for details) with lab results reviewed with patient and family/caregivers at bedside and radiology results reviewed with patient and any family/caregivers at bedside. Stable, alert, nontoxic, nonfocal with clinically apparent bilateral carpal tunnel syndrome. Discussed splinting, oral glucocorticoids, topical NSAIDs and rest. Outpatient follow-up with primary physician within 1 to 2 weeks recommended. Bilateral wrist splints provided in the ER. Clinical information obtained from an independent historian. History obtained from or confirmed by: ___spouse ___parent ___guardian ___family ___friend ___EMS ___other: Patient's care is significantly limited by social determinants of health including, but not limited to: ___inadequate housing ___low income ___alcoholism and drug addiction in family ___problems related to primary support group ___unemployment ___problems with employment ___language barrier ___lack of transportation ___psychiatric disease ___other social determinants of health: External records reviewed: ___Inpatient records ___office records ___outpatient records ___prior outpatient labs ___prior outpatient radiology ___primary care record ___outside ED record ___PMD referral ___outside ER ___urgent care referral _x__other: [facility] Management of the patient was discussed with: ___Hospitalist ___consultant ___behavioral health provider ___primary care provider ___other: [employer] MAKER SERVICE/TIME: none MEDICATIONS GIVEN IN ED: [ ] YES [ x ] NO DIFFERENTIAL DIAGNOSES CONSIDERED: - DECISION to ADMIT / DISCHARGE TIME: 134 DISPOSITION CONDITION:[ X ] Improved [ ] Unchanged [ ] Deteriorated CLINICAL IMPRESSION: 1 -carpal tunnel syndrome 2 - 3 - DISCHARGE INSTRUCTIONS AND PATIENT-DIRECTED FOLLOW-UP RECOMMENDATIONS: DIET: Low salt diet ACTIVITY: Up as stephanie NEW MEDS: Prednisone, Diclofenac gel, [place] MEDICATION RECONCILIATION: CONTINUE ALL PRESCRIBED MEDICATIONS DIRECTED FOLLOW-UP WITH PRIMARY TMD TEACHER ASSISTANT/SPECIALIST: Within 1 week RETURN TO EMERGENCY: if any worries or concerns ADDITIONAL SIGNATURE PCP: [ ] YES [x] NO [ ] not listed Active Outpatient Medications (including Supplies): Active Outpatient [...] RINSE MOUTH AND SPIT AFTER EACH USE. /nataliia/ BHARGAV PEDROZA MD MEDICINE MOD Signed: 01/09/2024 15:10 Receipt Acknowledged By: 01/09/2024 19:28 /nataliia/ Kodak Morton MD Staff Physician 01/11/2024 16:28 /nataliia/ NOELLE MAGALLANESN RN REGISTERED NURSE BHARGAV PEDROZA [facility] Jan 09, 2024 11:42 AM EMERGENCY DEPT TRI AGE NOTE: LOCAL TITLE: EMERGENCY DEPARTMENT TRIAGE NOTE STANDARD TITLE: EMERGENCY DEPT TRIAGE NOTE DATE OF NOTE: JAN 09, 2024@11:42 ENTRY DATE: JAN 09, 2024@11:42:07 AUTHOR: ERASMO HERNÁNDEZ COSIGNER: URGENCY: STATUS: COMPLETED Emergency Department/Urgent Care Center Triage Patient age:38 Sex: MALE On arrival patient was: AMBULATORY Patient phone number: Allergies: SHELLFISH Subjective/Chief Complaint: Bilateral wrist pain * 2 weeks/no injury Objective: Pt to ED and reports that he has been having progressive wrist pain and intermittent tingling to fingers, neuro intact and equal bilaterally. Pt reports worse pain to L than R. 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 VS stable, respirations even and unlabored. Pt denies other associated emergency medical complaints or concerns and is well appearing. The patient is not a fall risk. BP: 127/88 P: 106 R: 18 WT: T: 97.6 HT: Sepsis Screening Evaluation Emergency Severity Index (YAZMIN) level Level 5 Current Medications: Active Outpatient Medications (including Supplies): Active Outpatient [...] RINSE MOUTH AND SPIT AFTER EACH USE. Current Problems: 1) Chronic back pain 2) Sleep apnea 3) Posttraumatic stress disorder 4) Major depressive disorder 5) Steatosis of liver 6) Obesity 7) Exposure to potentially hazardous substance 8) Allergic rhinitis 9) Insomnia Suicide Screen: [place] Suicide Severity Rating Scale (C-SSRS) screener 1. Over the past month, have you wished you were or wished you could go to sleep and not wake up? No 2. Over the past month, have you had any actual thoughts of killing yourself? No 3. Over the past month, have you been thinking about how you might do this? Response not required due to responses to other questions. 4. Over the past month, have you had these thoughts and had some intention of acting on them? Response not required due to responses to other questions. 5. Over the past month, have you started to work out or worked out the details of how to kill yourself? Response not required due to responses to other questions. 6. If yes, at any time in the past month did you intend to carry out this plan? Response not required due to responses to other questions. 7. In your lifetime, have you ever done anything, started to do anything, or prepared to do anything to end your life (for example, collected pills, obtained a gun, gave away valuables, went to the roof but didn't jump)? No 8. If YES, was this within the past 3 months? Response not required due to responses to other questions. /nataliia/ ERASMO HERNÁNDEZ RNBSN REGISTERED NURSE Signed: 01/09/2024 11:43 ERASMO HERNÁNDEZ [facility]
--- OUTSIDE RECORDS SUMMARY | 2024-03-31 01:01 | XMS_ITS | Encounter Summary ---
Author Name [facility] [place] [facility] [place] [facility] [place] Address [address] [place] [address] Care Team Providers Care Last Sorter Name Role Phone KODAK MORTON Primary Care [...] Policy Victoria's Name Patient's Relationship to Policy Ivctoria ANTHEM [place] PREFERRED PROVIDER ORGANIZAT ION (PPO) BLUE CHOIC E PREFE RR Apr 13, 2020 [id number] [phone] BOOGIE BAILEY ANDON PATIENT ANTHEM [place] PREFERRED PROVIDER ORGANIZAT ION (PPO) BLUE CHOIC E PREFE RR Apr 13, 2020 [id number] [phone] BOOGIE BAILEY ANDON PATIENT ANTHEM [place] PREFERRED PROVIDER ORGANIZAT ION (PPO) BLUE CHOIC E PREFE RR Apr 13, 2020 [id number] [phone] BOOGIE BAILEY ANDCARLA PATIENT [place] PREFERRED PROVIDER ORGANIZAT ION (PPO) BLUE CHOIC E PREFE RR Apr 13, 2020 [id number] [phone] BOOGIE BAILEY PATIENT PRIME THERAPEUTI CS RX PRESCRIPT ION BCBSI [place] Apr 13, 2020 [id number] [phone] BOOGIE BAILEY PATIENT [facility] 2018 TRICA RE May 10, 2019 SELECT [id number] BOOGIE BAILEY PATIENT Selected Encounter This section includes the information on record at [place] for the Encounter. Date/Time Encounter Type Encounter Description Reason Provider Source Jan 09, 2024 11:29 AM Outpatient Encounter EVENT (HISTORICAL) GRACE GARCÍA Valentin Encounter Template Text not used by [place] Plan of Treatment: Future Appointments (+ 6 [...] 14, 2024 09:00 AM [facility] Jan 14, 2024 10:00 AM [facility] Jan 26, 2024 01:00 PM AMBULATORY - [facility]ICINE [facility] Jan 28, 2024 01:45 PM AMBULAT[facility] - [facility] Feb 02, 2024 02:00 PM AMBULATORY - PSYCHIATRY [facility] Feb 08, 2024 09:00 AM AMBULATORY - NEUROLOGY [facility] Feb 12, 2024 02:30 PM [facility] Feb 17, 2024 01:00 PM AMBULATORY - MEDICINE [facility] Feb 25, 2024 09:30 AM AMBULATORY - MEDICINE [facility] Mar 05, 2024 08:43 AM [facility] Mar 16, 2024 10:15 AM AMBULATORY - SURGERY [facility] Mar 21, 2024 12:14 PM AM[facility]ORY - MEDICINE [facility] Apr 01, 2024 10:00 AM AMBULATORY - PSYCHIATRY [facility] Apr 28, 2024 03:00 PM AMBUL[facility]ORY - MEDICINE [facility] May 05, 2024 11:30 AM AMBULATORY - MEDICINE [facility] May 27, 2024 11:00 AM AMBULATORY - MEDICINE [facility] Active, Pending, and Scheduled Orders This section includes a listing of several types of active, pending, and scheduled orders, including clinic medications orders, diagnostic test orders, procedure orders and consult orders; where the start date of the order is 45 days before the date of the Encounter or 45 days after the date of theEncounter. The data comes from all [place] treatment facilities. Test Date/Time Test Type Test Details Facility Name Jan 26, 2024 02:11 PM Consult Order RHEUMATOLO GY OUTPATIENT [facility] Feb 17, 2024 01:16 PM Consult Order PLASTIC SHELLEY RGERY OUTPT [facility] Lab Results: +/- 30 days of the encounter This section includes the Chemistry and Hematology Lab Results on record with [place] for the patient. Radiology Reports and Pathology Reports are provided separately, in subsequent sections. Lab Results This section contains the Chemistry/Hematology Results that were resulted 30 days before or 30 daysafter the date of the Encounter. Date/Time Source Result Type Result - Unit Interpretation Reference Range Comment Jan 26, 2024 02:47 PM [facility] CRP Specimen Type: PLASMA No comment entered. Ordering Provider: FRANSISCO MORTON Report Released Date/Time: Jan 26, 2024 02:11 PM Reporting Lab: [facility] [address] [facility] [address] Performing Lab: [facility] [address] [address] CRP 0.6 mg/dL H 0-0.5 Jan 26, 2024 02:47 PM [facility] ESR ISED(STL) Specimen Type: BLOOD No comment entered. Ordering Provider: FRANSISCO MORTON Report Released Date/Time: Jan 26, 2024 02:11 PM Reporting Lab: [facility] [address] [address] Performing Lab: [facility] [address] [address] ESR ISED(STL) 35 mm/h H 0-14 Jan 26, 2024 02:47 PM [facility] RHEUMATOID FACTOR (STL) Specimen Type: SERUM No comment entered. Ordering Provider: FRANSISCO MORTON Report Released Date/Time: Jan 26, 2024 02:19 PM Reporting Lab: [address] [address] Performing Lab: [place] [address] [facility] [address] RHEUMATOID FACTOR (STL) <15.0 0-29 Vital Signs: All taken on the encounter date This section contains inpatient and outpatient Vital Signs collected on the date of the Encounter. Date/Time Temperature Pulse Blood Pressure Respiratory Rate SP02 Pain Height Weight Body Mass Index Source Jan 09, 2024 11:41 AM 97.6 106 127/88 18 98 7 [facility] Social History: Smoking Status (Most [...] PM VA-TOBACCO NEVER USED [facility] Radiology Reports: +/- 30 days of the [...] the Encounter. The data comes from all [place] treatment facilities. Date/Time Radiology Report Provider Source Jan 28, 2024 02:20 PM HAND,RIGHT,3 OR [place] RE VIEWS: JORDYN BAILEY [id number] -1985 M Exm Date: JAN 28, 2024@14:20 Req Phys: KODAK MORTON Pat Loc: [facility] PACT B5 NEW PATIENT (Re Img Loc: [facility] RADIOLOGY SUITE Service: Unknown [facility] [address] [place] [address] (Case [id number] COMPLETE) HAND,RIGHT,3 OR MORE VIEWS (RAD Detailed) CPT:17764 Proc Modifiers : RIGHT Reason for Study: right hand feell stiff and pain specialy in morning Clinical History: right hand feell stiff and pain specialy in morning Report Status: Verified Date Reported: JAN 29, 2024 Date Verified: JAN 29, 2024 Animal Killer E-Sig:/FRANCY/ART ENCARNACION MD Report: Case #[id number]. Right hand examination. Finding: Three views of the right hand examination shows no fracture dislocation. No evidence of lytic or blastic bony lesion. No joint space narrowing or marginal erosion. No soft tissue swelling, radiopaque foreign body or abnormal calcification. Impression: No fracture dislocation or arthritic change. Primary Interpreting Staff: ART NECARNACION MD, Staff Physician - Radiologist (Animal Killer) /ART ANDRADE [facility] Jan 28, 2024 02:20 PM WRIST,RIGHT,3 OR M ORE VIEWS: LYNNJORDYN [id number] -1985 M Exm Date: JAN 28, 2024@14:20 Req Phys: KODAK MORTON Loc: [facility] PACT B5 NEW PATIENT (Re Img Loc: [facility] RADIOLOGY SUITE Service: Unknown [facility] [address] [place] [address] (Case [id number] COMPLETE) WRIST,RIGHT,3 OR MORE VIEWS (RAD Detailed) CPT:10165 Proc Modifiers : RIGHT Reason for Study: right writs pain Clinical History: c/o right wroist pain Report Status: Verified Date Reported: JAN 29, 2024 Date Verified: JAN 29, 2024 Animal Killer E-Sig:/ES/ART ENCARNACION MD Report: Case #[id number]. Right [...] ART ENCARNACION MD, Staff Physician - Radiologist (Animal Killer) /ART [facility] Jan 28, 2024 02:20 PM HAND,LEFT,3 OR MOR E VIEWS: JORDYN BAILEY ANTHONY [id number] -1985 M Exm Date: JAN 28, 2024@14:20 Req Phys: KODAK MORTON Pat Loc: [facility] PACT B5 NEW PATIENT (Re Img Loc: [facility] RADIOLOGY SUITE Service: Unknown [facility] [address] [place] [address] (Case [id number] COMPLETE) HAND,LEFT,3 OR MORE VIEWS (RAD Detailed) CPT:96535 Proc Modifiers : LEFT Reason for Study: left hand feell stiff and pain specialy in morning Clinical History: eft hand feell stiff and pain specialy in morning Report Status: Verified Date Reported: JAN 29, 2024 Date Verified: JAN 29, 2024 Animal Killer E-Sig:/ES/ART ENCARNACION MD Report: Case #[id number]. Left hand examination. Finding: Three views of the left hand examination shows no fracture dislocation. No evidence of lytic or blastic bony lesion. No joint space narrowing or marginal erosion. No soft tissue swelling, radiopaque foreign body or abnormal calcification. Impression: No fracture dislocation or arthritic change. Primary Interpreting Staff: ART ENCARNACION MD, Staff Physician - Radiologist (Animal Killer) /ART [facility]RADE [facility] Jan 28, 2024 02:20 PM WRIST,LEFT, 3 OR M ORE VIEWS: JORDYN BAILEY ANTHONY [id number] -1985 M Exm Date: JAN 28, 2024@14:20 Req Phys: KODAK MORTON Pat Loc: [facility] PACT B5 NEW PATIENT (Re Img Loc: [facility] RADIOLOGY SUITE Service: Unknown [address] [address] (Case [id number] COMPLETE) WRIST,LEFT, 3 OR MORE VIEWS (RAD Detailed) CPT:16841 Proc Modifiers : LEFT Reason for Study: c/o left wrist pain Clinical History: c/o left wrist pain Report Status: Verified Date Reported: JAN 29, 2024 Date Verified: JAN 29, 2024 Animal Killer E-Sig:/ES/ART ENCARNACION MD Report: Case #[id number]. Left [...] ART ENCARNACION MD, Staff Physician - Radiologist (Animal Killer) /ART [facility]ADE [facility] Jan 09, 2024 12:[address] CERVICAL SPINE W/O CONT: LYNNJORDYN ANTHONY [id number] -1985 M Exm Date: JAN 09, 2024@12:18 Req Phys: BING ORTIZ Loc: [facility] 2ND SHIFT (R Img Loc: [facility] Service: Unknown [address] [address] (Case [id number] COMPLETE) CT CERVICAL SPINE W/O CONT (CT Detailed) CPT:42046 Reason for Study: Neck pain, bilateral arm pain/weakness Clinical History: Responsible Attending: Yovany Attending Contact Number: [id number] Resident Contact Number: Neck pain, bilateral arm pain/weakness Allergies listed in CPRS chart: SHELLFISH Creatinine/eGFR: STL EGFR (within one year). CREATININE 0.95 mg/dL (11/25/23 11:00) Wt: 220.4 lb [99.97 kg] (11/25/2023 10:03) History of: Renal failure, chronic or acute renal disease: NO Report Status: Verified Date Reported: JAN 09, 2024 Date Verified: JAN 09, 2024 Animal Killer E-Sig: Report: CT CERVICAL SPINE W/O CONT Clinical History: Neck pain, bilateral arm pain/weakness Comparison: No priors available Technique: Noncontrast CT of the cervical spine was performed. The study was protocoled and supervised at the local [place] facility. 1116 images were subsequently received by the [place] National Teleradiology Program (NTP) for interpretation. Total [...] dedicated MRI. READING PHYSICIAN: Ifrah Guzmán M.D. -[id number] 01/09/2024 11:23 PDT [facility] National Teleradiology Program [phone] (For Medical Practitioner Use Only) Attention Patients / Veterans: If you have questions or concerns about these test results, please contact your ordering provider or primary care team. Primary Interpreting Staff: RADIOLOGY,OUTSIDE SERVICE, Staff Physician / RADIOLOGY,OUTSIDE SERVICE [facility] Encounter Notes: All associated encounter notes This section contains the clinical notes associated to the Encounter. Date/Time Encounter Note(s) Provider Source Jan 09, 2024 02:09 PM EMERGENCY DEPT DIS CHARGE NOTE: LOCAL TITLE: DISCHARGE INSTRUCTIONS EMERGENCY DEPT [facility] STANDARD TITLE: EMERGENCY DEPT DISCHARGE NOTE DATE OF NOTE: JAN 09, 2024@14:09:56 ENTRY DATE: JAN 09, 2024@14:09:56 AUTHOR: GRACE GARCÍA COSIGNER: URGENCY: STATUS: COMPLETED DISCHARGE INSTRUCTIONS IMPORTANT: We examined and treated you today on an emergency basis only. This was not a substitute for, or an effort to provide, complete medical care. In most cases, you must let your healthcare provider check you again. Tell your healthcare provider about any new or lasting problems. We cannot recognize and treat all injuries or illnesses in one Emergency Department visit. You were treated today by Ivania, . YOU ARE THE MOST IMPORTANT FACTOR IN YOUR RECOVERY. Follow the provided instructions carefully. CONTACT INFORMATION: -Hospital Information: [facility] - [address] [facility]. [phone] -CRISIS Line: If you are having thoughts of harming yourself or thoughts of suicide immediately call the [place] Crisis line at [phone] -Nurse Line: If you have any questions regarding your health or symptoms please contact the nurse line at [phone] -General Help: Any questions or concerns, call [place] Clinical Contact Center - [phone]. Ask to speak to a doctor Thursday thru Thursday 8a-4:30p - VISIT NOTES: If you had special tests, such as EKG's or X-rays, we will review them again within 24 hours. We will call you if there are any new suggestions. CLINICAL IMPRESSION: 1 -carpal tunnel syndrome2 -3 - DISCHARGE INSTRUCTIONS AND PATIENT-DIRECTED FOLLOW-UP RECOMMENDATIONS: DIET: Low salt diet ACTIVITY: Up as stephanie NEW MEDS: Prednisone, Diclofenac gel, Hatchechubbee MEDICATION RECONCILIATION: CONTINUE ALL PRESCRIBED MEDICATIONS ASDIRECTED FOLLOW-UP WITH PRIMARY QA TECH/SPECIALIST: Within 1 week RETURN TO EMERGENCY: if any worries or concerns ADDITIONAL SIGNATURE PCP: [ ] YES [x] NO [ ] not listed - FOLLOW APPOINTMENT INFORMATION: It is important that you keep your scheduled appointments. If you have questions, or if you need to Make, Change or Cancel an Appointment or relay a message to your Primary Care or Specialty Care Provider please call [phone]. If you are not already established with a [place] primary care transitions nurse, an administrative request has been placed to offer that to you. You will recieve a notification for follow-up to be connected with a health care provider. Future Appointments 01/14/2024 at 9:00am [facility] 01/14/2024 at 10:00am [facility] 02/02/2024 at 2:00pm [facility] 02/08/2024 at 9:00am [facility] 03/25/2024 at 3:30pm [facility] PACT B5 PCP MEDICATION INFORMATION: Take your medicines as prescribed. If you do not understand any of your medicines, please ask questions. If you think you may not be able to machine operator hop picker your medicine, please let us know so we can look at other options. -Your medication list includes any medications that were recently prescribed but not filled by the Pharmacy (PENDING Medicines). -Included are any known ACTIVE Medicines. Please review this list to make sure it is accurate, if this list does not match the current medications you are taking please follow-up with your Primary Care Team to have your Medication List reviewed. Pending Medications DICLOFENAC NA 1% TOP GEL \ Sig: APPLY 2 GM TO AFFECTED AREA(S) FOUR TIMES A DAY NEEDED DO NOT EXCEED MORE THAN 16 GRAMS DAILY TO ANY LOWER EXTREMITY JOINT. NOT MORE THAN 8 GRAMS DAILY TO ANY UPPER EXTREMITY JOINT. MAX 32GM/DAY OVER ALL JOINTS. (MEASURE DOSE WITH RULER ATTACHED INSIDE BOX)\Indication: FOR PAIN PREDNISONE 20MG TAB \ Sig: TAKE ONE TABLET BY MOUTH EVERY MORNING TAKE WITH FOOD OR MILK.\Indication: FOR CARPAL TUNNEL Active Medications ALBUTEROL 90MCG (CFC-F) 200D ORAL INHL INHALE 2 PUFFS ORAL INHALATION FOUR TIMES A DAY NEEDED FOR ASTHMA SHAKE WELL. RINSE MOUTHPIECE FREQUENTLY TO PREVENT CLOGGING. BENZONATATE 200MG CAP TAKE ONE CAPSULE BY MOUTH THREE TIMES A DAY NEEDED FOR COUGH FLUTICAS 250/SALMETEROL 50 INHL DISK 60 INHALE 1 INHALATION ORAL INHALATION TWICE A DAY FOR ASTHMA (OPEN DISKUS; CLICK ONLY ONCE; MAY INHALE TWICE TO COMPLETE DOSE; CLOSE WHEN FINISHED) RINSE MOUTH AND SPIT AFTER EACH USE. Medications Medications in the last 90 days CETIRIZINE HCL 10MG TAB TAKE ONE TABLET BY MOUTH ONCE A DAY FOR ALLERGY SYMPTOMS HC 1%/NEOMYCIN 3.5MG/POLYMYXIN OTIC SUSP INSTILL 4 DROPS IN TO AFFECTED EAR(S) THREE TIMES A DAY FOR BACTERIAL EAR INFECTION (SHAKE WELL) MELATONIN 3MG CAP/TAB TAKE TWO CAP/TAB BY MOUTH AT BEDTIME FOR SLEEP MAY TAKE ONE ADDITIONAL TABLET/CAPSULE FOR A TOTAL OF 3 TABLETS/CAPSULES IF NEEDED. - This Information Is About Your Illness and Diagnosis - CARPAL TUNNEL SYNDROME Carpal tunnel syndrome affects the fingers, hand, and wrist. The median nerve and tendons come into the hand through a tunnel-like structure called the carpal tunnel. Sometimes, the thickening from irritated tendons or other swelling causes this tunnel to become narrow. This can cause pressure on the median nerve. This can cause pain, weakness, or numbness in the hand or wrist which can sometimes be felt radiating up the arm. What causes carpal tunnel syndrome? Carpal tunnel syndrome is commonly the result of a combination of factors that increase pressure on the median nerve and tendons in the carpal tunnel. Sometimes this tunnel is simply smaller in some people than in others, which makes them more likely to develop this condition. Other causes include: -injury such as a sprain, fracture, or dislocation of the wrist -repetitive motion of the wrist such as painting or typing -arthritis -in some cases, no cause can be identified What are the symptoms of carpal tunnel syndrome? -pain, numbness, and tingling in the fingers, hand, arm, or neck -unable to make a fist -wrist swelling -burning sensation in fingers, hand, arm, or neck -symptoms are worse in the morning and you may feel the need to shake out the hand or wrist -symptoms that may wake you up at night How will my carpal tunnel syndrome be treated? Treatment for carpal tunnel syndrome initially may involve resting the affected hand and wrist for at least two weeks. It is important to avoid activities that may cause symptoms to worsen. The wrist may be placed in a splint to avoid any further damage from twisting or bending. Anti-inflammatory medications may be prescribed to help reduce swelling. Physical therapy may also be recommended. If the symptoms of carpal tunnel syndrome are severe or last for six months, surgery may be recommended. Please follow these instructions: -Slowly increase your activity. Take frequent rest periods when typing or doing things that cause your wrist to hurt. -Wear any splint as prescribed. -Keep your hand or arm elevated above your heart to reduce swelling or throbbing. At night prop it up with pillows. -If there is inflammation, apply cool packs if indicated by your health care provider. -Take pain and anti-inflammatory medicines as prescribed by your health care provider. Contact your health care provider as soon as possible if you have any of the following: -increased burning or tingling of fingers. -increased numbness of fingers. -increased swelling in your fingers. -a change in the color (dark or pale) or temperature of your fingers. -pain not helped by your pain medicine. -any new problems or concerns. - Contact your health care provider as soon as possible if you have: -Concerns for an emergency medical condition -Uncontrolled pain or other life-threatening symptoms -Any worries or concerns -Other: END OF INSTRUCTIONS /es/ GRACE GARCÍA MD STAFF PHYSICIAN Signed: 01/09/2024 14:09 GRACE GARCÍA [facility]
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
--- OUTSIDE RECORDS SUMMARY | 2024-03-31 01:04 | XMS_ITS ---
Author Name [facility] [place] [facility] [place] [facility] [facility] [place] Address [address] [place] [address] Care Team Providers Care Hospice Consultant Name Role Phone KODAK MORTON Primary Care [...] CHOIC E PREFE RR Apr 13, 2020 [id number] [phone] BOOGIE BAILEY ANDON PATIENT ANTHEM [employer] [place] PREFERRED PROVIDER ORGANIZAT ION (PPO) BLUE CHOIC E PREFE RR Apr 13, 2020 [id number] [phone] LYNN,BOOGIE ANDON PATIENT ANTHEM [employer] [place] PREFERRED PROVIDER ORGANIZAT ION (PPO) BLUE CHOIC E PREFE RR Apr 13, 2020 [id number] [phone] BOOGIE BAILEY ANDON PATIENT [employer] [place] PREFERRED PROVIDER ORGANIZAT ION (PPO) BLUE CHOIC E PREFE RR Apr 13, 2020 [id number] [phone] BOOGIE BAILEY PATIENT PRIME THERAPEUTI CS RX PRESCRIPT ION [employer] L [place] Apr 13, 2020 [id number] [phone] BOOGIE BAILEY PATIENT [facility] 2018 TRICA RE May 10, 2019 SELECT [id number] BOOGIE BAILEY PATIENT Selected Encounter This section includes the information on record at [place] for the Encounter. Date/Time Encounter Type Encounter Description Reason Pro vider Source Jan 20, 2024 08:29 AM Outpatient Encounter ADMIN PAT ACTIVTIES (MASNONCT) IHE Encounter Template Text not used by [place] Plan of Treatment: Future Appointments (+ 6 months) and Future Tests (+/- 45 days) The Plan of Treatment section includes future care activities for the patient from all [place] treatmentfacilities. This section includes future appointments and future orders which are active, pending or scheduled. Future Appointments This section includes appointments that were scheduled to occur 6 months from the date of the Encounter, up to a maximum of 20 appointments. The data comes from all [place] treatment facilities. Appointment Date/Time Appointment Type Appointme nt Facility Name Jan 26, 2024 01:00 PM AMBULATORY - MEDICINE [facility] Jan 28, 2024 01:45 PM AMBULATORY - REHAB MEDICIN E [facility] Feb 02, 2024 02:00 PM AMBULATORY - PSYCHIATRY [facility] Feb 08, 2024 09:00 AM AMBULATORY - NEUROLOGY [facility] Feb 12, 2024 02:30 PM AMBULATORY - NONE [facility] Feb 17, 2024 01:00 PM AMBULATORY - MEDICINE [facility] Feb 25, 2024 09:30 AM AMBULATORY - MEDICINE [facility] Mar 05, 2024 08:43 AM AMBULATORY - MEDICINE [facility] Mar 16, 2024 10:15 AM AMBULATORY - SURGERY . [facility] Mar 21, 2024 12:14 PM AMBULATORY - MEDICINE [facility] Apr 01, 2024 10:00 AM AMBULATORY - PSYCHIATRY [facility] Apr 28, 2024 03:00 PM AMBULATORY - MEDICINE [facility] May 05, 2024 11:30 AM AMBULATORY - MEDICINE [facility] May 27, 2024 11:00 AM AMBULATORY - MEDICINE [facility] Active, Pending, and Scheduled Orders This section includes a listing of several types of active, pending, and scheduled orders, including clinic medications orders, diagnostic test orders, procedure orders and consult orders; where thestart date of the order is 45 days before the date of the Encounter or 45 days after the date of the Encounter. The data comes from all [place] treatment facilities. Test Date/Time Test Type Test Details Facility Name Jan 26, 2024 02:11 PM Consult Order RHEUMATOLO GY OUTPATIENT [facility] Feb 17, 2024 01:16 PM Consult Order PLASTIC SHELLEY RGERY OUTPT [facility] Lab Results: +/- 30 days of the [...] Range Comment Jan 26, 2024 02:47 PM [facility] CRP Specimen Type: PLASMA No comment entered. Ordering Provider: FRANSISCO MORTON Report Released Date/Time: Jan 26, 2024 02:11 PM Reporting Lab: [facility] [address] [place] [address] Performing Lab: [facility] [address] [facility] [address] CRP 0.6 mg/dL H 0-0.5 Jan 26, 2024 02:47 PM [facility] ESR ISED(STL) Specimen Type: BLOOD No comment entered. Ordering Provider: FRANSISCO MORTON Report Released Date/Time: Jan 26, 2024 02:11 PM Reporting Lab: [facility] [address] [facility] [address] Performing Lab: [facility] [address] [address] ESR ISED(STL) 35 mm/h H 0-14 Jan 26, 2024 02:47 PM [facility] RHEUMATOID FACTOR (STL) Specimen Type: SERUM No comment entered. Ordering Provider: FRANSISCO MORTON Report Released Date/Time: Jan 26, 2024 02:19 PM Reporting Lab: [facility] [address] [facility] [address] Performing Lab: [facility] [address] [place] [address] RHEUMATOID FACTOR (STL) <15.0 0-29 Social History: Smoking Status (Most current) and Tobacco Use (All prior to encounter date) This section includes the most current, and the historical, smoking and tobacco- related health factors from the [place] facility where the Encounter took place. Current Smoking Status This section includes the most current smoking, or tobacco-related health factor, from the [place] facility where the Encounter took place. Date/Time Current Smoking Status Comment Facil tiffany Feb 26, 2021 03:59 PM VA-TOBACCO NEVER USED [facility] Radiology Reports: +/- 30 days of [...] the Encounter. The data comes from all [place] treatment facilities. Date/Time Radiology Report Provider Source Feb 12, 2024 02:[address] THORAX W/O CONT HIGH RES: JORDYN BAILEY [id number] -1985 M Exm Date: FEB 12, 2024@14:18 Req Phys: FLOYD WOO Loc: [facility] 1 (Req'g Loc) Img Loc: [facility] Service: [address] [address] (Case [id number] COMPLETE) CT THORAX W/O CONT HIGH RES (CT Detailed) CPT:44161 Reason for Study: chronic cough, exertional dyspnea, + hazardous exposure hx Clinical History: Responsible Attending: floyd woo PA-C Attending Contact Number: [phone] Resident Contact Number: Allergies listed in CPRS chart: SHELLFISH Creatinine: CREATININE 0.95 mg/dL 11/25/2023 11:00 /eGFR: STL EGFR (within one year). CREATININE 0.95 mg/dL (11/25/23 11:00) Wt: 218.3 lb [99.02 kg] (01/14/2024 08:55) History of: Renal failure, chronic or acute renal disease: NO Report Status: Verified Date Reported: FEB 15, 2024 Date Verified: FEB 15, 2024 [facility] E-Sig:/ES/Lynn Castro MD Report: CASE #: [id number] DATE:02/12/2024 4:23 PM CLINICAL HISTORY:chronic cough, exertional [...] Primary Interpreting Staff: Lynn Castro MD, Radiologist ([facility]) /LYNN ONEILL [facility] Jan 28, 2024 02:20 PM HAND,RIGHT,3 OR MO RE VIEWS: LYNNJORDYN ANTHONY [id number] -1985 M Exm Date: JAN 28, 2024@14:20 Req Phys: KODAK MORTON Pat Loc: [facility] PACT B5 NEW PATIENT (Re Img Loc: -[facility] RADIOLOGY SUITE Service: Unknown [facility], [facility] [address] [place] [address] (Case [id number] COMPLETE) HAND,RIGHT,3 OR MORE VIEWS (RAD Detailed) CPT:84010 Proc Modifiers : RIGHT Reason for Study: right hand feell stiff and pain specialy in morning Clinical History: right hand feell stiff and pain specialy in morning Report Status: Verified Date Reported: JAN 29, 2024 Date Verified: JAN 29, 2024 [facility] E-Sig:/ES/ART ENCARNACION MD Report: Case #[id number]. Right hand examination. Finding: Three views of the right hand examination shows no fracture dislocation. No evidence of lytic or blastic bony lesion. No joint space narrowing or marginal erosion. No soft tissue swelling, radiopaque foreign body or abnormal calcification. Impression: No fracture dislocation or arthritic change. Primary Interpreting Staff: ART ENCARNACION MD, Staff Physician - Radiologist ([facility]) /GUNJAN ANDRADEVINNIE [facility] Jan 28, 2024 02:20 PM WRIST,RIGHT,3 OR M ORE VIEWS: JORDYN BAILEY ANTHONY [id number] -1985 M Exm Date: JAN 28, 2024@14:20 Req Phys: KODAK MORTON Loc: [facility] PACT B5 NEW PATIENT (Re Img Loc: -[facility] RAD[facility] SUITE Service: [facility], [facility] [address] [place] [address] (Case [id number] COMPLETE) WRIST,RIGHT,3 OR MORE VIEWS (RAD Detailed) CPT:68832 Proc Modifiers : RIGHT Reason for Study: right writs pain Clinical History: c/o right wroist pain Report Status: Verified Date Reported: JAN 29, 2024 Date Verified: JAN 29, 2024 [facility] E-Sig:/ES/ART ENCARNACION MD Report: Case #[id number]. Right [...] ART ENCARNACION MD, Staff Physician - Radiologist ([facility]) /ART ANDRADE [facility] Jan 28, 2024 02:20 PM HAND,LEFT,3 OR MOR E VIEWS: LYNNJORDYN CRUZ [id number] -1985 M Exm Date: JAN 28, 2024@14:20 Req Phys: KODAK MORTON Pat Loc: [facility] PACT B5 NEW PATIENT (Re Img Loc: [facility] RAD[facility] SUITE Service: Unknown [facility] [address] [place] [address] (Case [id number] COMPLETE) HAND,LEFT,3 OR MORE VIEWS (RAD Detailed) CPT:20923 Proc Modifiers : LEFT Reason for Study: left hand feell stiff and pain specialy in morning Clinical History: eft hand feell stiff and pain specialy in morning Report Status: Verified Date Reported: JAN 29, 2024 Date Verified: JAN 29, 2024 [facility] E-Sig:/NATALIIA/ART ENCARNACION MD Report: Case #[id number]. Left hand examination. Finding: Three views of the left hand examination shows no fracture dislocation. No evidence of lytic or blastic bony lesion. No joint space narrowing or marginal erosion. No soft tissue swelling, radiopaque foreign body or abnormal calcification. Impression: No fracture dislocation or arthritic change. Primary Interpreting Staff: ART ENCARNACION MD, Staff Physician - Radiologist ([facility]) /ART ANDRADE [facility] Jan 28, 2024 02:20 PM WRIST,LEFT, 3 OR M ORE VIEWS: JORDYN BAILEY [id number] -1985 M Exm Date: JAN 28, 2024@14:20 Req Phys: KODAK MORTON Pat Loc: [facility] PACT B5 NEW PATIENT (Re Img Loc: [facility] RAD[facility] SUITE Service: Unknown [facility] [address] [place] [address] (Case [id number] COMPLETE) WRIST,LEFT, 3 OR MORE VIEWS (RAD Detailed) CPT:32998 Proc Modifiers : LEFT Reason for Study: c/o left wrist pain Clinical History: c/o left wrist pain Report Status: Verified Date Reported: JAN 29, 2024 Date Verified: JAN 29, 2024 [facility] E-Sig:/NATALIIA/ART ENCARNACION MD Report: Case #[id number]. Left [...] ART ENCARNACION MD, Staff Physician - Radiologist ([facility]) /ART ANDRADE [facility] Jan 09, 2024 12:[address] CERVICAL SPINE W/O CONT: JORDYN BAILEY [id number] -1985 M Exm Date: JAN 09, 2024@12:18 Req Phys: BING ORTIZ Loc: [facility]-EMERGENCY DEPT 2ND SHIFT (R Img Loc: [facility] Service: [facility], [facility] [address] [place] [address] (Case [id number] COMPLETE) CT CERVICAL SPINE W/O CONT (CT Detailed) CPT:34681 Reason for Study: Neck pain, bilateral arm pain/weakness Clinical History: Responsible Attending: Yovany Attending Contact Number: [id number] Resident Contact Number: Neck pain, bilateral arm pain/weakness Allergies listed in CPRS chart: SHELLFISH Creatinine/eGFR: STL EGFR (within one year). CREATININE 0.95 mg/dL (11/25/23 11:00) Wt: 220.4 lb [99.97 kg] (11/25/2023 10:03) History of: Renal failure, chronic or acute renal disease: NO Report Status: Verified Date Reported: JAN 09, 2024 Date Verified: JAN 09, 2024 [facility] E-Sig: Report: CT CERVICAL SPINE W/O CONT Clinical History: Neck pain, bilateral arm pain/weakness Comparison: No priors available Technique: Noncontrast CT of the cervical spine was performed. The study was protocoled and supervised at the local [place] facility. 1116 images were subsequently received by the [place] National Teler[facility] (NTP) for interpretation. Total [...] dedicated MRI. READING PHYSICIAN: Ifrah Guzmán M.D. -[id number] 01/09/2024 11:23 PDT [facility] National Teleradiology Program [phone] (For Medical Practitioner Use Only) Attention Patients / Veterans: If you have questions or concerns about these test results, please contact your ordering provider or primary care team. Primary Interpreting Staff: RADIOLOGY,OUTSIDE SERVICE, Staff Physician / RADIOLOGY,OUTSIDE SERVICE [facility] Encounter Notes: All associated encounter notes This section contains the clinical notes associated to the Encounter. Date/Time Encounter Note(s) Provider Source Jan 20, 2024 08:29 AM ADMINISTRATIVE NOT E: LOCAL TITLE: [facility]: SCHEDULING ADMINISTRATION STANDARD TITLE: ADMINISTRATIVE NOTE DATE OF NOTE: JAN 20, 2024@08:29 ENTRY DATE: JAN 20, 2024@08:29:34 AUTHOR: SONIA MEDINA COSIGNER: URGENCY: STATUS: COMPLETED PER [facility] TRIAGE NURSE NEEDING APPOINTMENT. [facility] SPOKE WITH AND MADE [facility] APPOINTMENT FOR 01/20/24 @0900. /nataliia/ SONIA MEDINA [facility]/SAFETY JOB TITLES Signed: 01/20/2024 08:30 SONIA MEDINA [facility]
--- OUTSIDE RECORDS SUMMARY | 2024-03-31 01:04 | XMS_ITS | Encounter Summary ---
Author Name [facility] [facility] [place] [facility] [place] [facility] [place] Address [address] [place] [address] Care Team Providers Care Order Editor Name Role Phone KODAK MORTON Primary Care [...] CHOIC E PREFE RR Apr 13, 2020 [id number] [phone] BOOGIE BAILEY ANDON PATIENT ANTHEM [employer] [place] PREFERRED PROVIDER ORGANIZAT ION (PPO) BLUE CHOIC E PREFE RR Apr 13, 2020 [id number] [phone] BOOGIE BAILEY ANDON PATIENT AN[employer]M [employer] [place] PREFERRED PROVIDER ORGANIZAT ION (PPO) BLUE CHOIC E PREFE RR Apr 13, 2020 [id number] [phone] BOOGIE BAILEY ANDON PATIENT [employer] [place] PREFERRED PROVIDER ORGANIZAT ION (PPO) BLUE CHOIC E PREFE RR Apr 13, 2020 [id number] [phone] BOOGIE BAILEY PATIENT PRIME THERAPEUTI CS RX PRESCRIPT ION BCBSI L T[place] Apr 13, 2020 BCBSIL [id number] [phone] BOOGIE BAILEY PATIENT [facility] [address] RE May 10, 2019 SELECT [id number] BOOGIE BAILEY PATIENT Selected Encounter This section includes the information on record at [place] for the Encounter. Date/Time Encounter Type Encounter Description Reason Pro vider Source Jan 20, 2024 08:33 AM Outpatient Encounter TELEPHONE TRIAGE IHE Encounter Template Text not used by [place] [...] 26, 2024 01:00 PM AMBULATORY - MEDICINE [facility] Jan 28, 2024 01:45 PM AMBULATORY - REHAB MEDICIN E [facility] Feb 02, 2024 02:00 PM AMBULATORY - PSYCHIATRY [facility] Feb 08, 2024 09:00 AM AMBULATORY - NEUROLOGY [facility] Feb 12, 2024 02:30 PM AMBULATORY - NONE [facility] Feb 17, 2024 01:00 PM AMBULATORY - MEDICINE [facility] Feb 25, 2024 09:30 AM AMBULATORY - MEDICINE [facility] Mar 05, 2024 08:43 AM AMBULATORY - MEDICINE [facility] Mar 16, 2024 10:15 AM AMBULATORY - SURGERY [facility] Mar 21, 2024 12:14 PM AMBULATORY - MEDICINE [facility] Apr 01, 2024 10:00 AM AMBULATORY - PSYCHIATRY [facility] Apr 28, 2024 03:00 PM AMBULATORY - MEDICINE [facility] May 05, 2024 11:30 AM AMBULATORY - MEDICINE [facility] May 27, 2024 11:00 AM AMBULATORY - MEDICINE [facility] Active, Pending, and Scheduled Orders [...] 02:11 PM Consult Order RHEUMATOLO GY OUTPATIENT [facility] Cons Electronic Prepress System Operator's [facility] Feb 17, 2024 01:16 PM Consult Order PLASTIC SHELLEY RGERY OUTPT [facility] Lab Results: +/- 30 days [...] Range Comment Jan 26, 2024 02:47 PM [facility] ESR ISED(STL) Specimen Type: BLOOD No comment entered. Ordering Provider: FRANSISCO MORTON Report Released Date/Time: Jan 26, 2024 02:11 PM Reporting Lab: [facility] [address] [facility] [facility] [address] Performing Lab: [facility] [address] [facility] [address] ESR ISED(STL) 35 mm/h H 0-14 Jan 26, 2024 02:47 PM [facility] CRP Specimen Type: PLASMA No comment entered. Ordering Provider: FRANSISCO MORTON Report Released Date/Time: Jan 26, 2024 02:11 PM Reporting Lab: [facility] [address] [facility] [address] Performing Lab: [facility] [address] [facility] [address] CRP 0.6 mg/dL H 0-0.5 Jan 26, 2024 02:47 PM [facility] RHEUMATOID FACTOR (STL) Specimen Type: SERUM No comment entered. Ordering Provider: FRANSISCO MORTON Report Released Date/Time: Jan 26, 2024 02:19 PM Reporting Lab: [facility] [address] [facility] [address] Performing Lab: [facility] [address] [facility] [address] RHEUMATOID FACTOR (STL) <15.0 0-29 Social History: [...] 03:59 PM VA-TOBACCO NEVER USED [facility] Radiology Reports: +/- 30 days of [...] THORAX W/O CONT HIGH RES: JORDYN BAILEY [id number] -1985 M Exm Date: FEB 12, 2024@14:18 Req Phys: FLOYD WOO Loc: [facility]PULM [facility] 1 (Req'g Loc) Img Loc: [facility]-CT IMAGING [facility] Service: [address] [address] (Case [id number] COMPLETE) CT THORAX W/O CONT HIGH RES (CT Detailed) CPT:68709 Reason for Study: chronic cough, exertional dyspnea, + hazardous exposure hx Clinical History: Responsible Attending: floyd woo PA-C Attending Contact Number: [phone] Resident Contact Number: Allergies listed in CPRS chart: SHELLFISH Creatinine: CREATININE 0.95 mg/dL 11/25/2023 11:00 /eGFR: STL EGFR (within one year). CREATININE 0.95 mg/dL (11/25/23 11:00) Wt: 218.3 lb [99.02 kg] (01/14/2024 08:55) History of: Renal failure, chronic or acute renal disease: NO Report Status: Verified Date Reported: FEB 15, 2024 Date Verified: FEB 15, 2024 Heel Turner E-Sig:/ES/Lynn Castro MD Report: CASE #: [id number] DATE:02/12/2024 4:23 PM CLINICAL HISTORY:chronic cough, exertional [...] Primary Interpreting Staff: Lynn Castro MD, Radiologist (Heel Turner) /LYNN ONEILL [facility] Jan 28, 2024 02:20 PM HAND,RIGHT,3 OR MO RE VIEWS: JORDYN BAILEY ANTHONY [id number] -1985 M Exm Date: JAN 28, 2024@14:20 Req Phys: KODAK MORTON Pat Loc: [facility] PACT B5 NEW PATIENT (Re Img Loc: -MAIN RADIOLOGY SUITE Service: Unknown [facility], [address] [place] [address] (Case [id number] COMPLETE) HAND,RIGHT,3 OR MORE VIEWS (RAD Detailed) CPT:60452 Proc Modifiers : RIGHT Reason for Study: right hand feell stiff and pain specialy in morning Clinical History: right hand feell stiff and pain specialy in morning Report Status: Verified Date Reported: JAN 29, 2024 Date Verified: JAN 29, 2024 Heel Turner E-Sig:/ES/ART ENCARNACION MD Report: Case #[id number]. Right hand examination. Finding: Three views of the right hand examination shows no fracture dislocation. No evidence of lytic or blastic bony lesion. No joint space narrowing or marginal erosion. No soft tissue swelling, radiopaque foreign body or abnormal calcification. Impression: No fracture dislocation or arthritic change. Primary Interpreting Staff: ART ENCARNACION MD, Staff Physician - Radiologist (Heel Turner) /ART ANDRADE [facility] Jan 28, 2024 02:20 PM WRIST,RIGHT,3 OR M ORE VIEWS: JORDYN BAILEY [id number] -1985 M Exm Date: JAN 28, 2024@14:20 Req Phys: KODAK MORTON Loc: [facility] PACT B5 NEW PATIENT (Re Img Loc: -[facility] RADIOLOGY SUITE Service: [facility], [facility] [address] [place] [address] (Case [id number] COMPLETE) WRIST,RIGHT,3 OR MORE VIEWS (RAD Detailed) CPT:69843 Proc Modifiers : RIGHT Reason for Study: right writs pain Clinical History: c/o right wroist pain Report Status: Verified Date Reported: JAN 29, 2024 Date Verified: JAN 29, 2024 Heel Turner E-Sig:/ES/ART ENCARNACION MD Report: Case #[id number]. Right [...] ART ENCARNACION MD, Staff Physician - Radiologist (Heel Turner) /ART ANDRADE [facility] Jan 28, 2024 02:20 PM HAND,LEFT,3 OR MOR E VIEWS: JORDYN BAILEY ANTHONY [id number] -1985 M Exm Date: JAN 28, 2024@14:20 Req Phys: KODAK MORTON Loc: [facility] PACT B5 NEW PATIENT (Re Img Loc: [facility] RADIOLOGY SUITE Service: Unknown [facility] [address] [place] [address] (Case [id number] COMPLETE) HAND,LEFT,3 OR MORE VIEWS (RAD Detailed) CPT:77896 Proc Modifiers : LEFT Reason for Study: left hand feell stiff and pain specialy in morning Clinical History: eft hand feell stiff and pain specialy in morning Report Status: Verified Date Reported: JAN 29, 2024 Date Verified: JAN 29, 2024 Heel Turner E-Sig:/FRANCY/ART ENCARNACION MD Report: Case #[id number]. Left hand examination. Finding: Three views of the left hand examination shows no fracture dislocation. No evidence of lytic or blastic bony lesion. No joint space narrowing or marginal erosion. No soft tissue swelling, radiopaque foreign body or abnormal calcification. Impression: No fracture dislocation or arthritic change. Primary Interpreting Staff: ART ENCARNACION MD, Staff Physician - Radiologist (Heel Turner) /ART ANDRADE [facility] Jan 28, 2024 02:20 PM WRIST,LEFT, 3 OR M ORE VIEWS: LYNNLISAJORDYN ANTHONY [id number] -1985 M Exm Date: JAN 28, 2024@14:20 Req Phys: KODAK MORTON Pat Loc: [facility] PACT B5 NEW PATIENT (Re Img Loc: [facility] RADIOLOGY SUITE Service: Unknown [facility] [address] [place] [address] (Case [id number] COMPLETE) WRIST,LEFT, 3 OR MORE VIEWS (RAD Detailed) CPT:83464 Proc Modifiers : LEFT Reason for Study: c/o left wrist pain Clinical History: c/o left wrist pain Report Status: Verified Date Reported: JAN 29, 2024 Date Verified: JAN 29, 2024 Heel Turner E-Sig:/FRANCY/ART ENCARNACION MD Report: Case #[id number]. Left wrist [...] ART ENCARNACION MD, Staff Physician - Radiologist (Heel Turner) /ART ANDRADE [facility] Jan 09, 2024 12:[address] CERVICAL SPINE W/O CONT: JORDYN BAILEY [id number] -1985 M Exm Date: JAN 09, 2024@12:18 Req Phys: BING ORTIZ Loc: [facility]-EMERGENCY DEPT 2ND SHIFT (R Img Loc: [facility] Service: [address] [address] (Case [id number] COMPLETE) CT CERVICAL SPINE W/O CONT (CT Detailed) CPT:63817 Reason for Study: Neck pain, bilateral arm pain/weakness Clinical History: Responsible Attending: Yovany Attending Contact Number: [id number] Resident Contact Number: Neck pain, bilateral arm pain/weakness Allergies listed in CPRS chart: SHELLFISH Creatinine/eGFR: STL EGFR (within one year). CREATININE 0.95 mg/dL (11/25/23 11:00) Wt: 220.4 lb [99.97 kg] (11/25/2023 10:03) History of: Renal failure, chronic or acute renal disease: NO Report Status: Verified Date Reported: JAN 09, 2024 Date Verified: JAN 09, 2024 Heel Turner E-Sig: Report: CT CERVICAL SPINE W/O CONT [...] dedicated MRI. READING PHYSICIAN: Ifrah Guzmán M.D. -[phone] 01/09/2024 11:23 PDT [facility] National Teleradiology Program [phone] (For Medical Practitioner Use Only) Attention Patients / Veterans: If you have questions or concerns about these test results, please contact your ordering provider or primary care team. Primary Interpreting Staff: RADIOLOGY,OUTSIDE SERVICE, Staff Physician / RADIOLOGY,OUTSIDE SERVICE [facility] Encounter Notes: All associated encounter notes This section contains the clinical notes associated to the Encounter. Date/Time Encounter Note(s) Provider Source Jan 20, 2024 08:34 AM RN PROGRESS NOTE: LOCAL TITLE: [facility]: CLINICAL TRIAGE STANDARD TITLE: RN PROGRESS NOTE DATE OF NOTE: JAN 20, 2024@08:34:01 ENTRY DATE: JAN 20, 2024@08:34:02 AUTHOR: ELLIE GRACE COSIGNER: URGENCY: STATUS: COMPLETED Patient Demographics Patient Name: JORDYN BAILEY Patient Primary [address]: [address] [place] [address] Patient Primary Phone: [phone] Patient : 1985 Patient Age: 38 Current Location: [address] [place] [address] Call Back Number: [phone] Caller/Recipient Relation to Patient: Self Emergency Contact: JOSÉ MENSAH Triage Summary Conducted triage/discussed symptoms Pain Score: 5 (Moderate to Severe Pain) Utilized the Triage Tool: Yes Chief Complaint: Joint Pain (multiple joints) System WHEN: Within 24 Hours Nurse's Recommendation / WHEN: Within 24 Hours System WHERE: Urgent care center Nurse's Recommendation / WHERE: Virtual Video Visit Patient Disposition Patient/Caregiver agrees to plan of care: Yes Patient WHERE: Virtual Video Visit Patient WHEN: Within 24 hours Nursing Plan and Disposition Referred for [facility] Virtual Clinic Visit Transferred patient to Sched & Admin-VCV Other course(s) of action Generated msg to PACT/Provider Provided guidance for worsening symptoms: *Caller/Patient* advised to call facilities [place] Clinical Contact Center or seek immediate medical attention for new or worsening symptoms Nurse Summary Nurse Summary: called with c/o multiple joint pain x2-3 weeks. He states pain originally started in his wrist. He was seen in the [facility] ER approx. 2 weeks ago and treated for carpel tunnel. Had f/u appt today with PCP, PACT just rescheduled that appt for future date. He is now reporting pain to multiple joints including both hands, fingers, both wrists, both elbows, neck, both shoulders, and both knees. Pain is constant mild to moderate with intermittent severe pain. Pain is worse in the morning. Hx of undifferentiated Connective Tissue Disease. He is wanting to know what he can take to help with the pain. Triage completed, recommends 24 hr f/u. [place] transferred to [facility] with warm handoff for scheduling. Clinical Contact Center Codes Clinic/Location: V15 [facility] PHONE CCC RN Decision Support System Output: Triage Complete Triage Date: 01/20/2024, 08:19 AM Triage Note: Decision Support Tool Used: [facility] Phone Triage 20 Jan 2024 13:15:49 +0000 [facility] Demographics 39 y/o Male Results CC: Joint Pain (multiple joints) Software suggested: Within 24 Hours Software suggested follow-up location: Urgent care center, consider virtual care Values and Measures Duration of CC: 3 Weeks Positive Responses HPI: arthralgias, more than 1 joint HPI: joint pain, joint stiffness, worse in the morning HPI: joint pain, moderate to severe HPI: joint swelling, multiple, worsening VS: temperature not taken Negative Responses Denies: HPI: arm pain, localized to shoulders Denies: HPI: arm pain, localized to wrists Denies: HPI: joint pain, multiple joints, severe Denies: HPI: joint pain, unable to move joints Denies: HPI: leg pain, localized to knees Denies: HPI: rash Denies: HPI: skin nodules, periarticular, firm Denies: HPI: tick bite, within past 6 weeks Denies: HPI: unable to walk Denies: HPI: vomiting Denies: PMH: rheumatoid arthritis Denies: PMH: systemic lupus erythematosus [place] Education Verbal Education Provided for: [facility] IMPORTANT: This note was created by [facility] Clinical Contact Center staff. Please do not alert the staff member by adding them as a signer for future communications. Alerts are not monitored by this user. /es/ ELLIE GRACE RN Signed: 01/20/2024 08:34 Receipt Acknowledged By: 01/20/2024 12:18 /es/ NOELLE MAGALLANESN RN REGISTERED NURSE 01/20/2024 12:12 /es/ Kodak Morton MD Staff Physician E[facility]IE GR[facility]EELLIS [facility]
--- OUTSIDE RECORDS SUMMARY | 2024-03-31 01:04 | XMS_ITS | Encounter Summary ---
Author Name [facility] [place] [facility] [place] [facility] [place] Address [address] [place] [address] Care Team Providers Care Aws Architect Name Role Phone KODAK MORTON Primary Care [...] CHOIC E PREFE RR Apr 13, 2020 [id number] [phone] BOOGIE BAILEY ANDON PATIENT AN[employer] [employer] [place] PREFERRED PROVIDER ORGANIZAT ION (PPO) BLUE CHOIC E PREFE RR Apr 13, 2020 [id number] [phone] BOOGIE BAILEY ANDON PATIENT ANTHEM [employer] [place] PREFERRED PROVIDER ORGANIZAT ION (PPO) BLUE CHOIC E PREFE RR Apr 13, 2020 [id number] [phone] BOOGIE BAILEY ANDCARLA PATIENT [employer] [place] PREFERRED PROVIDER ORGANIZAT ION (PPO) BLUE CHOIC E PREFE RR Apr 13, 2020 [id number] [phone] BOOGIE BAILEY ANDON PATIENT PRIME THERAPEUTI CS RX PRESCRIPT ION BCBSI L T[place]ER Apr 13, 2020 [id number] [phone] BOOGIE BAILEY PATIENT [facility] [address] May 10, 2019 SELECT [id number] 22 BOOGIE BAILEY PATIENT Selected Encounter This section includes the information on record at [place] for [place] Encounter. Date/Time Encounter Type Encounter Description Reason Pro vider Source IHE Encounter Template Text not used by [place]
--- OUTSIDE RECORDS SUMMARY | 2024-03-31 01:04 | XMS_ITS | Encounter Summary ---
Author Name [facility] [facility] [place] [facility] [place] Address [address] [place] [address] Care Team Providers Care Reporting Consultant Name Role Phone KODAK MORTON Primary [...] CHOIC E PREFE RR Apr 13, 2020 [id number] [phone] BOOGIE BAILEY ANDON PATIENT ANTHEM [employer] [place] PREFERRED PROVIDER ORGANIZAT ION (PPO) BLUE CHOIC E PREFE RR Apr 13, 2020 [id number] [phone] BOOGIE BAILEY ANDON PATIENT ANTHEM [employer] [place] PREFERRED PROVIDER ORGANIZAT ION (PPO) BLUE CHOIC E PREFE RR Apr 13, 2020 [id number] [phone] BOOGIE BAILEY ANDON PATIENT [employer] PREFERRED PROVIDER ORGANIZAT ION (PPO) BLUE CHOIC E PREFE RR Apr 13, 2020 [id number] [phone] BOOGIE BAILEY PATIENT PRIME THERAPEUTI CS RX PRESCRIPT ION BCBSI L [place] Apr 13, 2020 [id number] [phone] BOOGIE BAILEY PATIENT [facility] [place] May 10, 2019 SELECT [id number] BOOGIE BAILEY PATIENT Selected Encounter This section includes the information on record at [place] for the Encounter. Date/Time Encounter Type Encounter Description Reason Provider Source Jan 20, 2024 09:40 AM Outpatient Encounter TELEPHONE TRIAGE ICD-10-CM M25.50 Pain in unspecified joint SULLY BULL Valentin Encounter Template Text not used by [place] Assessments - Encounter Diagnoses This section includes the primary and secondary diagnoses documented for the Encounter. Date/Time Primary/Secondary Diagnosis Diagnosis Name Provider Source Jan 20, 2024 09:40 AM PRIMARY Pain in unspecified joint SULLY BULL [facility] Plan of Treatment: Future Appointments (+ [...] 01:45 PM AMBULATORY - REHAB MEDICIN E [facility] Feb 02, 2024 02:00 PM AMBULATORY - PSYCHIATRY [facility] Feb 08, 2024 09:00 AM AMBULATORY - NEUROLOGY [facility] Feb 12, 2024 02:30 PM AMBULATORY - NONE . [facility] Feb 17, 2024 01:00 PM AMBULATORY - MEDICINE [facility] Feb 25, 2024 09:30 AM AMBULATORY - MEDICINE [facility] Mar 05, 2024 08:43 AM AMBULATORY - MEDICINE [facility] Mar 16, 2024 10:15 AM AMBULATORY - SURGERY . Kelsie CHAVEZ [facility] Mar 21, 2024 12:14 PM AMBULATORY - MEDICINE [facility] Apr 01, 2024 10:00 AM AMBULATORY - PSYCHIATRY [facility] Apr 28, 2024 03:00 PM AMBULATORY - MEDICINE [facility] May 05, 2024 11:30 AM AMBULATORY [...] of theEncounter. The data comes from all [place] treatment facilities. Test Date/Time Test Type Test Details Facility Name Jan 26, 2024 02:11 PM Consult Order RHEUMATOLO GY OUTPATIENT [facility] Feb 17, 2024 01:16 PM Consult Order PLASTIC SHELLEY RGERY OUTPT [facility] Lab Results: +/- 30 days of the [...] Range Comment Jan 26, 2024 02:47 PM [facility] CRP Specimen Type: PLASMA No comment entered. Ordering Provider: FRANSISCO MORTON Report Released Date/Time: Jan 26, 2024 02:11 PM Reporting Lab: [facility] [address] [facility] [address] Performing Lab: [facility] [address] [facility] [address] CRP 0.6 mg/dL H 0-0.5 Jan 26, 2024 02:47 PM [facility] ESR ISED(STL) Specimen Type: BLOOD No comment entered. Ordering Provider: FRANSISCO MORTON Report Released Date/Time: Jan 26, 2024 02:11 PM Reporting Lab: [facility] [address] [facility] [address] Performing Lab: [facility] [address] [address] ESR ISED(STL) 35 mm/h H 0-14 Jan 26, 2024 02:47 PM [facility] RHEUMATOID FACTOR (STL) Specimen Type: SERUM No comment entered. Ordering Provider: FRANSISCO MORTON Report Released Date/Time: Jan 26, 2024 02:19 PM Reporting Lab: [facility] [address] [address] Performing Lab: [facility] [address] [address] RHEUMATOID FACTOR (STL) <15.0 0-29 Social History: [...] 26, 2021 03:59 PM VA-TOBACCO NEVER USED [facility] Radiology Reports: +/- 30 days of the [...] the Encounter. The data comes from all [place] treatment facilities. Date/Time Radiology Report Provider Source Feb 12, 2024 02:[address] THORAX W/O CONT HIGH RES: JORDYN BAILEY [id number] -1985 M Exm Date: FEB 12, 2024@14:18 Req Phys: FLOYD WOO Loc: [facility]PULM PA 1 (Req'g Loc) Img Loc: [facility] Service: [address] [address] (Case [id number] COMPLETE) CT THORAX W/O CONT HIGH RES (CT Detailed) CPT:25256 Reason for Study: chronic cough, exertional dyspnea, + hazardous exposure hx Clinical History: Responsible Attending: floyd woo PA-C Attending Contact Number: [phone] Resident Contact Number: Allergies listed in CPRS chart: SHELLFISH Creatinine: CREATININE 0.95 mg/dL 11/25/2023 11:00 /eGFR: STL EGFR (within one year). CREATININE 0.95 mg/dL (11/25/23 11:00) Wt: 218.3 lb [99.02 kg] (01/14/2024 08:55) History of: Renal failure, chronic or acute renal disease: NO Report Status: Verified Date Reported: FEB 15, 2024 Date Verified: FEB 15, 2024 Child Daycare Worker E-Sig:/ES/Lynn Castro MD Report: CASE #: [id number] DATE:02/12/2024 4:23 PM CLINICAL HISTORY:chronic cough, exertional [...] Primary Interpreting Staff: Lynn Castro MD, Radiologist (Child Daycare Worker) /LYNN ONEILL [facility] Jan 28, 2024 02:20 PM HAND,RIGHT,3 OR [place] RE VIEWS: JORDYN BAILEY [id number] -1985 M Ex Date: JAN 28, 2024@14:20 Req Phys: KODAK MORTON Loc: [facility] PACT B5 NEW PATIENT (Re Img Loc: -MAIN RADIOLOGY SUITE Service: Unknown [facility], [address] [place] [address] (Case [id number] COMPLETE) HAND,RIGHT,3 OR MORE VIEWS (RAD Detailed) CPT:04983 Proc Modifiers : RIGHT Reason for Study: right hand feell stiff and pain specialy in morning Clinical History: right hand feell stiff and pain specialy in morning Report Status: Verified Date Reported: JAN 29, 2024 Date Verified: JAN 29, 2024 Child Daycare Worker E-Sig:/NATALIIA/ART ENCARNACION MD Report: Case #[id number]. Right hand examination. Finding: Three views of the right hand examination shows no fracture dislocation. No evidence of lytic or blastic bony lesion. No joint space narrowing or marginal erosion. No soft tissue swelling, radiopaque foreign body or abnormal calcification. Impression: No fracture dislocation or arthritic change. Primary Interpreting Staff: ART ENCARNACION MD, Staff Physician - Radiologist (Child Daycare Worker) /ART ANDRADE [facility] Jan 28, 2024 02:20 PM WRIST,RIGHT,3 OR M ORE VIEWS: JORDYN BAILEY [id number] -1985 M Exm Date: JAN 28, 2024@14:20 Req Phys: KODAK MORTON Pat Loc: [facility] PACT B5 NEW PATIENT (Re Img Loc: -MAIN RADIOLOGY SUITE Service: [facility], [facility] [address] [place] [address] (Case [id number] COMPLETE) WRIST,RIGHT,3 OR MORE VIEWS (RAD Detailed) CPT:53268 Proc Modifiers : RIGHT Reason for Study: right writs pain Clinical History: c/o right wroist pain Report Status: Verified Date Reported: JAN 29, 2024 Date Verified: JAN 29, 2024 Child Daycare Worker E-Sig:/NATALIIA/ART ENCARNACION MD Report: Case #[id number]. Right [...] ART ENCARNACION MD, Staff Physician - Radiologist (Child Daycare Worker) /[facility] Jan 28, 2024 02:20 PM HAND,LEFT,3 OR MOR E VIEWS: JORDYN BAILEY [id number] -1985 M Exm Date: JAN 28, 2024@14:20 Req Phys: KODAK MORTON Pat Loc: [facility] PACT B5 NEW PATIENT (Re Img Loc: [facility] RADIOLOGY SUITE Service: Unknown [address] [address] (Case [id number] COMPLETE) HAND,LEFT,3 OR MORE VIEWS (RAD Detailed) CPT:45374 Proc Modifiers : LEFT Reason for Study: left hand feell stiff and pain specialy in morning Clinical History: eft hand feell stiff and pain specialy in morning Report Status: Verified Date Reported: JAN 29, 2024 Date Verified: JAN 29, 2024 Child Daycare Worker E-Sig:/ES/ART ENCARNACION MD Report: Case #[id number]. Left hand examination. Finding: Three views of the left hand examination shows no fracture dislocation. No evidence of lytic or blastic bony lesion. No joint space narrowing or marginal erosion. No soft tissue swelling, radiopaque foreign body or abnormal calcification. Impression: No fracture dislocation or arthritic change. Primary Interpreting Staff: ART ENCARNACION MD, Staff Physician - Radiologist (Child Daycare Worker) /ART ANDRADE [facility] Jan 28, 2024 02:20 PM WRIST,LEFT, 3 OR M ORE VIEWS: JORDYN BAILEY ANTHONY [id number] -1985 M Exm Date: JAN 28, 2024@14:20 Req Phys: KODAK MORTON Loc: [facility] PACT B5 NEW PATIENT (Re Img Loc: [facility] RADIOLOGY SUITE Service: Unknown [address] [address] (Case [id number] COMPLETE) WRIST,LEFT, 3 OR MORE VIEWS (RAD Detailed) CPT:47406 Proc Modifiers : LEFT Reason for Study: c/o left wrist pain Clinical History: c/o left wrist pain Report Status: Verified Date Reported: JAN 29, 2024 Date Verified: JAN 29, 2024 Child Daycare Worker E-Sig:/ES/ART ENCARNACION MD Report: Case #[id number]. Left [...] ART ENCARNACION MD, Staff Physician - Radiologist (Child Daycare Worker) /ART ANDRADE [facility] Jan 09, 2024 12:[address] CERVICAL SPINE W/O CONT: JORDYN BAILEY [id number] -1985 M Exm Date: JAN 09, 2024@12:18 Req Phys: BING ORTIZ Loc: [facility]-EMERGENCY DEPT 2ND SHIFT (R Img Loc: [facility] Service: [address] [address] (Case [id number] COMPLETE) CT CERVICAL SPINE W/O CONT (CT Detailed) CPT:06200 Reason for Study: Neck pain, bilateral arm pain/weakness Clinical History: Responsible Attending: Yovany Attending Contact Number: 10210 Resident Contact Number: Neck pain, bilateral arm pain/weakness Allergies listed in CPRS chart: SHELLFISH Creatinine/eGFR: STL EGFR (within one year). CREATININE 0.95 mg/dL (11/25/23 11:00) Wt: 220.4 lb [99.97 kg] (11/25/2023 10:03) History of: Renal failure, chronic or acute renal disease: NO Report Status: Verified Date Reported: JAN 09, 2024 Date Verified: JAN 09, 2024 Child Daycare Worker E-Sig: Report: CT CERVICAL SPINE W/O CONT Clinical History: Neck pain, bilateral arm pain/weakness Comparison: No priors available Technique: Noncontrast CT of the cervical spine was performed. The study was protocoled and supervised at the local [place] facility. 1116 images were subsequently received by the [place] [facility] (NTP) for interpretation. Total [...] dedicated MRI. READING PHYSICIAN: Ifrah Guzmán M.D. -[phone] 01/09/2024 11:23 PDT [facility] National Teleradiology Program [phone] (For Medical Practitioner Use Only) Attention Patients / Veterans: If you have questions or concerns about these test results, please contact your ordering provider or primary care team. Primary Interpreting Staff: RADIOLOGY,OUTSIDE SERVICE, Staff Physician / RADIOLOGY,OUTSIDE SERVICE [facility] Encounter Notes: All associated encounter notes This section contains the clinical notes associated to the Encounter. Date/Time Encounter Note(s) Provider Source Jan 20, 2024 09:40 AM URGENT CARE NOTE: LOCAL TITLE: V15 [facility] URGENT CARE VISIT STANDARD TITLE: URGENT CARE NOTE DATE OF NOTE: JAN 20, 2024@09:40 ENTRY DATE: JAN 20, 2024@09:40:41 AUTHOR: SULLY BULL COSIGNER: URGENCY: STATUS: COMPLETED PRIMARY CARE TEMPLATE Patient is a 38 year old (Jan) WHITE MALE. Patient's identity was verified with at least 2 personal identifiers. *Appointment type: Type of Visit: Phone Visit: Visit conducted by telephone. Location/emergency number confirmed. Emergency contact information was obtained as follows: Confirmed [place] location for this appointment: Alternate Address:[address] [place] [address] Chief Complaint: Multiple joint pain History of Present Illness: 38 year old male presents for a [facility] telephone visit complaining of multi joint pain most notable in the bilateral wrists, neck, shoulder, bilateral arms, and bialteral legs. He shared that he was seen in the [place] emergency room on 01/09/2024 and prescribed steriods, hydrocodone, diclofenac gel and that his symptoms have improved some. He shared that he has not been using the diclofenac gel currently. He shared that his symptoms have failed to resolve. He reports that he has a follow up appt with his PCP on 01/26/2024 to evaluate his symptoms. He is requesting further support until he is able to be seen by his PCP. He reports that the hydrocodone and prednisone is not working. He shared that his symptoms have progressively been getting worse. PMH/Active Problem List 1) Chronic back pain 2) Sleep apnea 3) Posttraumatic stress disorder 4) Major depressive disorder 5) Steatosis of liver 6) Obesity 7) Exposure to potentially hazardous substance 8) Allergic rhinitis 9) Insomnia Problem list was reviewed. MEDICATIONS: Active and Recently Outpatient Medications (including [...] DAY ACETAMINOPHEN (APAP) FROM ALL MEDS. 5) PANTOPRAZOLE NA 40MG EC TAB TAKE ONE TABLET BY MOUTH ACTIVE EVERY MORNING BEFORE A MEAL TAKE 30 MINUTES BEFORE MEAL(S) 6) PREDNISONE 20MG TAB TAKE ONE TABLET BY MOUTH EVERY ACTIVE MORNING FOR CARPAL TUNNEL TAKE WITH FOOD OR MILK. Inactive Outpatient Medications Status 1) CETIRIZINE HCL 10MG TAB TAKE ONE TABLET BY MOUTH ONCE A DAY FOR ALLERGY SYMPTOMS 2) FLUTICAS 250/SALMETEROL 50 INHL DISK 60 INHALE 1 INHALATION ORAL INHALATION TWICE A DAY FOR ASTHMA (OPEN DISKUS; CLICK ONLY ONCE; MAY INHALE TWICE TO COMPLETE DOSE; CLOSE WHEN FINISHED) RINSE MOUTH AND SPIT AFTER EACH USE. 3) HC 1%/NEOMYCIN 3.5MG/POLYMYXIN OTIC SUSP INSTILL 4 DROPS IN TO AFFECTED EAR(S) THREE TIMES A DAY FOR BACTERIAL EAR INFECTION (SHAKE WELL) 4) MELATONIN 3MG CAP/TAB TAKE TWO CAP/TAB BY MOUTH AT BEDTIME FOR SLEEP MAY TAKE ONE ADDITIONAL TABLET/CAPSULE FOR A TOTAL OF 3 TABLETS/CAPSULES IF NEEDED. 10 Total Medications Compared newly ordered medications and [...] HPI, otherwise unremarkable. PHYSICAL EXAMINATION Telephone visit: [facility] telephone visit, limited exam, A&O x3, NAD. Speaks clearly and appropriately. VITALS Most recent vital signs: No data available BMI: 31.4 ASSESSMENT/PLAN 1. Multi joint pain, uncertain of the etiology at this time. Further face to face evaluation and likely diagnostic testing is warranted. -No aggressive exercise until symptoms resolve. Ok to complete normal day to day ADLs, avoid strenuous activity. -Ice, 20 minutes on and 20 minutes off for comfort as needed -Compression as needed for comfort -Elevation as needed for comfort -Start OTC biofreeze per package instructions for comfort as needed. -Utilize the diclofenac gel as previously prescribed -Keep RTC appt with the PCP scheduled for 01/26/2024. Further recommendations will follow the PCP evaluation and work up-plan of care. -[place] will call PCP or [facility] Triage if symptoms fail to improve and or worsen. Shared medical decision making occurred during this visit with the [place]. Questions answered and [place] is agreeable with treatment plan. FOLLOW UP: Advised to keep all scheduled medical and follow-up appointments. [place] was advised to seek medical treatment if symptoms do not improve and/or worsens. Total time spent on visit: 25 minutes /nataliia/ SULLY BULL NURSE PRACTITIONER Signed: 01/20/2024 09:43 Receipt Acknowledged By: 01/20/2024 11:58 /ntaaliia/ Kodak Morton MD Staff Physician 01/20/2024 11:53 /nataliia/ NOELLE JIMENEZ RN REGISTERED NURSE SULLY BULL [facility]
--- OUTSIDE RECORDS SUMMARY | 2024-03-31 01:04 | XMS_ITS | Encounter Summary ---
Author Name [facility] [place] Address [address], [place] [address] Care Team Providers Care Human Resources Mgr Name Role Phone KODAK MORTON Primary Care [...] CHOIC E PREFE RR Apr 13, 2020 [id number] [phone] BOOGIE BAILEY PATIENT ANTHEM [place] PREFERRED PROVIDER ORGANIZAT ION (PPO) BLUE CHOIC E PREFE RR Apr 13, 2020 [id number] [phone] STEPHANIE BAILEYON PATIENT ANTHEM [employer] PREFERRED PROVIDER ORGANIZAT ION (PPO) BLUE CHOIC E PREFE RR Apr 13, 2020 [id number] [phone] BOOGIE BAILEY PATIENT [place] PREFERRED PROVIDER ORGANIZAT ION (PPO) BLUE CHOIC E PREFE RR Apr 13, 2020 [id number] [phone] BOOGIE BAILEY PATIENT PRIME THERAPEUTI CS RX PRESCRIPT ION BCBSI L TAY[place]ER Apr 13, 2020 [id number] [phone] BOOGIE BAILEY PATIENT [place] 2018 TRICA RE May 10, 2019 SELECT [id number] BOOGIE BAILEY PATIENT Selected Encounter This section includes the information on record at [place] for the Encounter. Date/Time Encounter Type Encounter Description Reason Provider Source Jan 26, 2024 01:00 PM OFFICE O/P EST MOD 30 MIN PRIMARY CARE/MEDICINE ICD-10-CM M13.139 Monoarthritis, not elsewhere classified, unspecified wrist KODAK MORTON Valentin Encounter Template Text not used by [place] Assessments - Encounter Diagnoses This section includes the primary and secondary diagnoses documented for the Encounter. Date/Time Primary/Secondary Diagnosis Diagnosis Name Provider Source Jan 26, 2024 02:24 PM PRIMARY Monoarthritis, not elsewhere classified, unspecified wrist KODAK MORTON [facility] Jan 26, 2024 02:24 PM SECONDARY Abnormal results [facility] liver function [facility] Jan 26, 2024 02:24 PM SECONDARY Fatty (change of) liver, not elsewhere classified [facility] Jan 26, 2024 02:24 PM SECONDARY Obesity, unspecified [facility] Plan of Treatment: Future Appointments (+ 6 months) and Future Tests (+/- 45 days) The Plan of Treatment section includes future care activities for the patient from all [place] treatmentfacilities. This section includes future appointments and future orders which are active, pending or scheduled. Future Appointments This section includes appointments that were scheduled to occur 6 months from the date of the Encounter, up to a maximum of 20 appointments. The data comes from all [place] treatment facilities. Appointment Date/Time Appointment Type Appointme nt Facility Name Jan 28, 2024 01:45 PM AMBULATORY - REHAB MEDICIN E [facility] Feb 02, 2024 02:00 PM AMBULATORY - PSYCHIATRY [facility] Feb 08, 2024 09:00 AM AMBULATORY - NEUROLOGY [facility] Feb 12, 2024 02:30 PM AMBULATORY - NONE [facility] Feb 17, 2024 01:00 PM AMBULATORY - MEDICINE [facility] Feb 25, 2024 09:30 AM AMBULATORY - MEDICINE [facility] Mar 05, 2024 08:43 AM AMBULATORY - MEDICINE [facility] Mar 16, 2024 10:15 AM AMBULATORY - SURGERY . Kelsie CHAVEZ [facility] Mar 21, 2024 12:14 PM AMBULATORY - MEDICINE [facility] Apr 01, 2024 10:00 AM AMBULATORY - PSYCHIATRY [facility] Apr 28, 2024 03:00 PM AMBULATORY - MEDICINE [facility] May 05, 2024 11:30 AM AMBULATORY - MEDICINE [facility] May 27, 2024 11:00 AM AMBULATORY - MEDICINE [facility] Active, Pending, and Scheduled Orders This section includes a listing of several types of active, pending, and scheduled orders, including clinic medications orders, diagnostic test orders, procedure orders and consult orders; where the start date of the order is 45 days before the date of the Encounter or 45 days after the date of theEncounter. The data comes from all [place] treatment facilities. Test Date/Time Test Type Test Details Facility Name Jan 26, 2024 02:11 PM Consult Order RHEUMATOLO GY OUTPATIENT [facility] [employer] Feb 17, 2024 01:16 PM Consult Order PLASTIC SHELLEY RGERY OUTPT [facility] Lab Results: +/- 30 days of the encounter This section includes the Chemistry and Hematology Lab Results on record with AL for the patient. Radiology Reports and Pathology Reports are provided separately, in subsequent sections. Lab Results This section contains the Chemistry/Hematology Results that were resulted 30 days before or 30 daysafter the date of the Encounter. Date/Time Source Result Type Result - Unit Interpretation Reference Range Comment Jan 26, 2024 02:47 PM [facility] CRP Specimen Type: PLASMA No comment entered. Ordering Provider: FRANSISCO MORTON Report Released Date/Time: Jan 26, 2024 02:11 PM Reporting Lab: [facility] [address] [phone] Performing Lab: [facility] [address] [phone] CRP 0.6 mg/dL H 0-0.5 Jan 26, 2024 02:47 PM [facility] ESR ISED(STL) Specimen Type: BLOOD No comment entered. Ordering Provider: FRANSISCO MOTRON Report Released Date/Time: Jan 26, 2024 02:11 PM Reporting Lab: [facility] [address] [phone] Performing Lab: [facility] [address] [phone] ESR ISED(STL) 35 mm/h H 0-14 Jan 26, 2024 02:47 PM [facility] RHEUMATOID FACTOR (STL) Specimen Type: SERUM No comment entered. Ordering Provider: FRANSISCO MORTON Report Released Date/Time: Jan 26, 2024 02:19 PM Reporting Lab: [facility] [address] [phone] Performing Lab: [facility] [address] [facility] [phone] RHEUMATOID FACTOR (STL) <15.0 0-29 Vital Signs: All taken on the encounter date This section contains inpatient and outpatient Vital Signs collected on the date of the Encounter. Date/Time Temperature Pulse Blood Pressure Respiratory Rate SP02 Pain Height Weight Body Mass Index Source Jan 26, 2024 01:15 PM 98 80 128/86 16 97 4 71 220.1 31 [facility] Social History: Smoking Status (Most current) and Tobacco Use (All prior to encounter date) This section includes the most current, and the historical, smoking and tobacco- related health factors from the AL facility where the Encounter took place. Current Smoking Status This section includes the most current smoking, or tobacco-related health factor, from the AL facility where the Encounter took place. Date/Time Current Smoking Status Comment Nicolas ity May 20, 2023 09:00 AM AL-TOBACCO FORMER USER [facility] Tobacco Use History This section includes a history of the smoking, or tobacco-related health factors, that were collected on or before the date of the Encounter. The data comes from the AL facility where the Encounter took place. Date/Time Smoking Status/Tobacco Use Comment F acility May 20, 2023 09:00 AM VA-TOBACCO QUIT 15 YRS OR MORE [facility] May 28, 2022 10:30 AM VA-TOBACCO NEVER USED [facility] Radiology Reports: +/- 30 days of [...] the Encounter. The data comes from all [place] treatment facilities. Date/Time Radiology Report Provider Source Feb 12, 2024 02:[address] THORAX W/O CONT HIGH RES: JORDYN BAILEY [id number] -1985 M Exm Date: FEB 12, 2024@14:18 Req Phys: FLOYD WOO Loc: [facility]M PA 1 (Req'g Loc) Img Loc: [facility] Service: [address] [address] (Case [id number] COMPLETE) CT THORAX W/O CONT HIGH RES (CT Detailed) CPT:52341 Reason for Study: chronic cough, exertional dyspnea, + hazardous exposure hx Clinical History: Responsible Attending: floyd woo PA-C Attending Contact Number: [phone] Resident Contact Number: Allergies listed in CPRS chart: SHELLFISH Creatinine: CREATININE 0.95 mg/dL 11/25/2023 11:00 /eGFR: STL EGFR (within one year). CREATININE 0.95 mg/dL (11/25/23 11:00) Wt: 218.3 lb [99.02 kg] (01/14/2024 08:55) History of: Renal failure, chronic or acute renal disease: NO Report Status: Verified Date Reported: FEB 15, 2024 Date Verified: FEB 15, 2024 Gas Singer E-Sig:/ES/Lynn Castro MD Report: CASE #: [id number] DATE:02/12/2024 4:23 PM CLINICAL HISTORY:chronic cough, exertional [...] Primary Interpreting Staff: Lynn Castro MD, Radiologist (Gas Singer) /LYNN ONEILL [facility] Jan 28, 2024 02:20 PM HAND,RIGHT,3 OR MO RE VIEWS: JORDYN BAILEY [id number] -1985 M Exm Date: JAN 28, 2024@14:20 Req Phys: KODAK MORTON Loc: [facility] PACT B5 NEW PATIENT (Re Img Loc: [facility] RADI[facility] SUITE Service: [facility], [address] [address] (Case [id number] COMPLETE) HAND,RIGHT,3 OR MORE VIEWS (RAD Detailed) CPT:08240 Proc Modifiers : RIGHT Reason for Study: right hand feell stiff and pain specialy in morning Clinical History: right hand feell stiff and pain specialy in morning Report Status: Verified Date Reported: JAN 29, 2024 Date Verified: JAN 29, 2024 Gas Singer E-Sig:/ES/ART ENCARNACION MD Report: Case #[id number]. Right hand examination. Finding: Three views of the right hand examination shows no fracture dislocation. No evidence of lytic or blastic bony lesion. No joint space narrowing or marginal erosion. No soft tissue swelling, radiopaque foreign body or abnormal calcification. Impression: No fracture dislocation or arthritic change. Primary Interpreting Staff: ART ENCARNACION MD, Staff Physician - Radiologist (Gas Singer) /ART ANDRADE [facility] Jan 28, 2024 02:20 PM WRIST,RIGHT,3 OR M ORE VIEWS: JORDYN BAILEY ANTHONY [id number] -1985 M Exm Date: JAN 28, 2024@14:20 Req Phys: KODAK MORTON Loc: [facility] PACT B5 NEW PATIENT (Re Img Loc: [facility] RADIOLOG[facility] SUITE Service: Unknown [facility] [address] [place] [address] (Case [id number] COMPLETE) WRIST,RIGHT,3 OR MORE VIEWS (RAD Detailed) CPT:33731 Proc Modifiers : RIGHT Reason for Study: right writs pain Clinical History: c/o right wroist pain Report Status: Verified Date Reported: JAN 29, 2024 Date Verified: JAN 29, 2024 Gas Singer E-Sig:/NATALIIA/ART ENCARNACION MD Report: Case #[id number]. Right [...] ART ENCARNACION MD, Staff Physician - Radiologist (Gas Singer) /ART ANDRADE [facility] Jan 28, 2024 02:20 PM HAND,LEFT,3 OR MOR E VIEWS: JORDYN BAILEY ANTHONY [id number] -1985 M Exm Date: JAN 28, 2024@14:20 Req Phys: KODAK MORTON Loc: [facility] PACT B5 NEW PATIENT (Re Img Loc: [facility] RADIOLOG[facility] SUITE Service: Unknown [facility] [address] [place] [address] (Case [id number] COMPLETE) HAND,LEFT,3 OR MORE VIEWS (RAD Detailed) CPT:57533 Proc Modifiers : LEFT Reason for Study: left hand feell stiff and pain specialy in morning Clinical History: eft hand feell stiff and pain specialy in morning Report Status: Verified Date Reported: JAN 29, 2024 Date Verified: JAN 29, 2024 Gas Singer E-Sig:/NATALIIA/ART ENCARNACION MD Report: Case #[id number]. Left hand examination. Finding: Three views of the left hand examination shows no fracture dislocation. No evidence of lytic or blastic bony lesion. No joint space narrowing or marginal erosion. No soft tissue swelling, radiopaque foreign body or abnormal calcification. Impression: No fracture dislocation or arthritic change. Primary Interpreting Staff: ART ENCARNACION MD, Staff Physician - Radiologist (Gas Singer) /ART ANDRADE [facility] Jan 28, 2024 02:20 PM WRIST,LEFT, 3 OR M ORE VIEWS: JORDYN BAILEY ANTHONY [id number] -1985 M Exm Date: JAN 28, 2024@14:20 Req Phys: KODAK MORTON Loc: -[facility] PACT B5 NEW PATIENT (Re Img Loc: -MAIN RADIOLOGY SUITE Service: Unknown [address] [address] (Case [id number] COMPLETE) WRIST,LEFT, 3 OR MORE VIEWS (RAD Detailed) CPT:06054 Proc Modifiers : LEFT Reason for Study: c/o left wrist pain Clinical History: c/o left wrist pain Report Status: Verified Date Reported: JAN 29, 2024 Date Verified: JAN 29, 2024 Gas Singer E-Sig:/ES/ART ENCARNACION MD Report: Case #[id number]. Left [...] ART ENCARNACION MD, Staff Physician - Radiologist (Gas Singer) /ART ANDRADE [facility] Jan 09, 2024 12:[address] CERVICAL SPINE W/O CONT: LYNNJORDYN CRUZ [id number] -1985 M Exm Date: JAN 09, 2024@12:18 Req Phys: BING ORTIZ Loc: -EMERGENCY DEPT 2ND SHIFT (R Img Loc: -CT IMAGING [facility] Service: Unknown [address] [address] (Case [id number] COMPLETE) CT CERVICAL SPINE W/O CONT (CT Detailed) CPT:15529 Reason for Study: Neck pain, bilateral arm pain/weakness Clinical History: Responsible Attending: Yovany Attending Contact Number: [phone] Resident Contact Number: Neck pain, bilateral arm pain/weakness Allergies listed in CPRS chart: SHELLFISH Creatinine/eGFR: STL EGFR (within one year). CREATININE 0.95 mg/dL (11/25/23 11:00) Wt: 220.4 lb [99.97 kg] (11/25/2023 10:03) History of: Renal failure, chronic or acute renal disease: NO Report Status: Verified Date Reported: JAN 09, 2024 Date Verified: JAN 09, 2024 Gas Singer E-Sig: Report: CT CERVICAL SPINE W/O CONT Clinical History: Neck pain, bilateral arm pain/weakness Comparison: No priors available Technique: Noncontrast CT of the cervical spine was performed. The study was protocoled and supervised at the local [place] facility. 1116 images were subsequently received by the [place] National Teleradiology Program (NTP) for interpretation. Total [...] dedicated MRI. READING PHYSICIAN: Ifrah Guzmán M.D. -[id number] 01/09/2024 11:23 PDT [facility] National Teleradiology Program [phone] (For Medical Practitioner Use Only) Attention Patients / Veterans: If you have questions or concerns about these test results, please contact your ordering provider or primary care team. Primary Interpreting Staff: RADIOLOGY,OUTSIDE SERVICE, Staff Physician / RADIOLOGY,OUTSIDE SERVICE [facility] Encounter Notes: All associated encounter notes This section contains the clinical notes associated to the Encounter. Date/Time Encounter Note(s) Provider Source Jan 26, 2024 02:01 PM PRIMARY CARE NOTE: LOCAL TITLE: PRIMARY CARE PROVIDER ESTABLISHED VISIT ST STANDARD TITLE: PRIMARY CARE NOTE DATE OF NOTE: JAN 26, 2024@14:01 ENTRY DATE: JAN 26, 2024@14:01:25 AUTHOR: KODAK MORTON EXP COSIGNER: URGENCY: STATUS: COMPLETED ESTABLISHED PATIENT LEBY-LL-UKHP: REASON FOR VISIT/CHIEF COMPLAINT: My both wrist and hands has pain HPI: Mr. 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 told to lose weight has less success and being encouraged to join move program Today came with his has ongoing bilateral wrist pain that he reports seen in the emergency room on January 08 report was diagnosed with carpal tunnel given him prednisone for 10 days helped him tremendously patient as well as take NSAIDs that required 4 more days of prednisone 20 mg a day by covering provider that he claims the only medication helped him more than any meds He said initially in the emergency room on January 08 told that he has carpal tunnel syndrome and ulnar NCV nerve conduction study scheduled to be done on February 07 He wants prednisone that helped his pain as has bilateral wrist and hand finger pain with swelling in the morning and stiffness that appears to be improved as day goes by? Question of RA He has not done any x-rays of his hand and wrist Get swelling and stiffness in the morning as day progresses it relaxes then decrease pain Will ask rheumatology consult as well as get x-ray of the hand and wrist check C-reactive protein RA and ESR patient agreed He also has seen pulmonary on January with his ongoing chronic cough since post COVID in April 2022 And exertional dyspnea: As well as question of as well as exposure He is on Wixela inhaler and albuterol inhaler See their pulmonary note on CPRS Saeed no other complaint PAST MEDICAL HISTORY: 1) Chronic back pain 2) Sleep apnea 3) Posttraumatic stress disorder 4) Major depressive disorder 5) Steatosis of liver 6) Obesity 7) Exposure to potentially hazardous substance 8) Allergic rhinitis 9) Insomnia ALLERGIES: SHELLFISH ALLERGY REVIEW: Allergy list reviewed and remains current. MEDICATION RECONCILIATION: I have reviewed the patient's medication list with the patient and/or his/her care-quality improvement engineer. Handwritten corrections, additions and/or deletions were made [...] ONE TABLET BY MOUTH EVERY ACTIVE MORNING TAKE WITH FOOD OR MILK. PHYSICAL EXAMINATION: Male General appearance: VITALS (most recent, as listed in the electronic record): B/P: 128/86 (01/26/2024 13:15) Pulse: 80 (01/26/2024 13:15) Temperature: 98 F [36.7 C] (01/26/2024 13:15) Weight: 220.1 lb [99.84 kg] (01/26/2024 13:15) Height: 71 in [180.3 cm] (01/26/2024 13:15) BMI: 30.8 Pain: 4 (01/26/2024 13:15) (0-10 scale) Physical findings: Averge built male walk w/o gait dist in NAD HEENT:nc, at [place] ,[place] , Scler/conj clear ,OP clear Neck:Supple , no bruit Heart:S1 S2 , No S3 S4, RRR , No m/g/r appreciated Lungs:clear to auscultate no wheezing or rale , Abdomen:soft nt no HSM BS+ Ext:no leg edema bilateral hand minimal swelling bilateral wrist flexion extension full range of motion Phalen sign questionable positive Neuro:A & O x3 , no focal deficit DATA REVIEW: HbA1C: HGA1C 5.7 % 11/25/2023 11:00 Lipid Panel: TRIGLYCERIDE 184 H mg/dL 11/25/2023 11:00 CHOLESTEROL 150 mg/dL 11/25/2023 11:00 HDL(New) 23 L mg/dL 11/25/2023 11:00 CALCULATED LDL 90 mg/dL 11/25/2023 11:00 CMP: SODIUM 137 mEq/L 11/25/2023 11:00 POTASSIUM 4.3 mEq/L 11/25/2023 11:00 CHLORIDE 106 mEq/L 11/25/2023 11:00 UREA NITROGEN 10.5 mg/dL 11/25/2023 11:00 CREATININE 0.95 mg/dL 11/25/2023 11:00 CALCIUM 10.0 mg/dL 11/25/2023 11:00 PROTEIN 9.2 H g/dL 11/25/2023 11:00 ALBUMIN 4.5 g/dL 11/25/2023 11:00 ALKALINE PHOSPHATASE 89 U/L 11/25/2023 11:00 ALT/SGPT 85 H U/L 11/25/2023 11:00 AST/SGOT 49 H U/L 11/25/2023 11:00 TOTAL BILIRUBIN 0.8 mg/dL 11/25/2023 11:00 CARBON DIOXIDE 23 mEq/L 11/25/2023 11:00 GLUCOSE 89 mg/dL 11/25/2023 11:00 EGFR (CKD-EPI 2020) 105.1 11/25/2023 11:00 CBC: WBC 4.6 10*3/uL 11/25/2023 11:00 RBC 5.54 10*6/uL 11/25/2023 11:00 HGB 15.2 g/dL 11/25/2023 11:00 HCT 44.6 % 11/25/2023 11:00 MCV 80.5 fL 11/25/2023 11:00 MCH 27.4 pg 11/25/2023 11:00 MCHC 34.1 g/dL 11/25/2023 11:00 RDW 13.3 % 11/25/2023 11:00 PLT 229 10*3/uL 11/25/2023 11:00 MPV 10.6 fL 11/25/2023 11:00 NEUTROPHILS, AUTO % 52 % 11/25/2023 11:00 LYMPHOCYTES, AUTO % 29 % 11/25/2023 11:00 MONOCYTES, AUTO % 14 % 11/25/2023 11:00 EOSINOPHILS, AUTO % 5 % 11/25/2023 11:00 BASOPHILS, AUTO % 0 % 11/25/2023 11:00 NEUTROPHILS, ABSOLUTE 2.37 10*3/uL 11/25/2023 11:00 LYMPHOCYTES, ABSOLUTE 1.33 10*3/uL 11/25/2023 11:00 MONOCYTES, ABSOLUTE 0.63 10*3/uL 11/25/2023 11:00 EOSINOPHILS, ABSOLUTE 0.22 10*3/uL 11/25/2023 11:00 BASOPHILS, ABSOLUTE 0.02 10*3/uL 11/25/2023 11:00 PSA: No PSA EO data found TSH: No TSH (1YR) EO data found INR: INR VALUE 1.2 INR 05/28/2022 11:40 [...] reviewed with patient and/or caregiver. ASSESSMENT/PLAN: 1) bilateral hand and wrist swelling and pain with question of RA versus carpal tunnel is scheduled to have NCV nerve conduction study on February 07 We will get x-ray of bilateral hand and wrist, C-reactive protein, ESR, RA Hematology consult requested Will give Medrol pack dose in view of patient report NSAIDs or other pain medicine like oxycodone or acetaminophen did not help much except a steroid Until he sees rheumatology and other test finding 2)Obesity /fatty liver disease again educated to lose wt. Exercise daily avoid sweets and high calories diet Encourage to join MOVE and discussed with dietitian 3)Fatty liver ds as above , 4).KHADRA encouraged to continue use CPAP daily 5) insomnia discussed good sleep hygiene RETURN TO CLINIC: Return to Clinic order placed SUMMARY STATEMENT: Plan of care has been discussed with including expected therapeutic benefits and potential side effects of prescribed medication and treatments. Tyrone verbalizes understanding and is in agreement with the plan of care. Patient was instructed to keep all scheduled appointments and contact web knitter for any additional problems. /nataliia/ Kodak Morton MD Staff Physician Signed: 01/31/2024 23:57 KODAK MORTON [facility] Jan 26, 2024 01:16 PM NURSING NOTE: LOCAL TITLE: V15 PACT FACE TO FACE NOTE STL STANDARD TITLE: NURSING NOTE DATE OF NOTE: JAN 26, 2024@13:16 ENTRY DATE: JAN 26, 2024@13:16:36 AUTHOR: LACIE TANG COSIGNER: URGENCY: STATUS: COMPLETED Provider Visit: Patient Identifiers : Full Name Date of Reason for visit: Established Follow-Up Mode of Arrival: Ambulatory Allergy Review: SHELLFISH Allergy list reviewed and remains current. Recent Vital Signs: Temperature: 98 F [36.7 C] (01/26/2024 13:15) Pulse: 80 (01/26/2024 13:15) Respiration: 16 (01/26/2024:15) B/P: 128/86 (01/26/2024 13:15) Pain: 4 (01/26/2024:15) Wt: 220.1 lb [99.84 kg] (01/26/2024:15) Ht: 71 in [180.3 cm] (01/26/2024:) BMI: 30.8 POX: 97% (01/26/2024:) Blood sugar glucometer reading: NA PERSONAL HEALTH INVENTORY Notes: No data available for PHI note titles PERSONAL HEALTH INVENTORY - MAP: 11/25/2023 Personal Health Plan [place], [place]iration, Purpose (MAP) my family 05/20/2023 Personal Health Plan [place], [place], Purpose (MAP) family 08/27/2021 Personal Health Plan [place], [place], Purpose (MAP) MY FAMILY IS MY MOTIVATION. What matters most to you in your life right now? --- Tyrone's Response: my family WHOLE HEALTH SHARED GOALS: PERSONAL HEALTH PLAN - SHARED GOALS: No data available for: Php Shared Goals SHARED GOALS == not at this time Would you like to discuss any personal problem, family problem, alcohol use, drug use, or a mental or emotional illness? No Contact provided Primary Care phone number and encouraged to call if any questions or concerns. Review that after hours nurse line [phone] and emergency room are available 03/11 for patient use. Contact verbalized good understanding. Learning Assessment: - * This patient's learning ABILITIES, BARRIERS to learning, CULTURAL and PENTECOSTAL beliefs, and learning PREFERENCES were assessed. Following are findings of note: Patient reads well. Comment: without glasses Patient has the following hearing/auditory barrier(s) to consider when teaching: Hard of hearing., Othertinnitus Patient has the following speech barrier to consider when teaching: No speech barrier identified. LANGUAGE Patient reports that Romanian is preferred language for healthcare. Patient reports learning preference is to refer to handouts. Patient reports learning preference is attending one-to-one or group demonstrations. Patient reports learning preference is looking at pictures or viewing videos. COVID-19 Immunization: Refused Pfizer Monovalent COVID-19 vaccine Immunization: COVID-19 (PFIZER), MRNA, LNP-S, PF, IKE-SUCROSE, 30 MCG/0.3 ML (AGES 12+ YEARS) Refusal Reason: PATIENT DECISION Patient refuses all immunization(s) in the COVID-19 group Comment: current Date Documented: 01/26/24 13:20 /nataliia/ LACIE TANG LPN LICENSED PRACTICAL NURSE Signed: 01/26/2024 13:20 LACIE TANG [facility]
--- OUTSIDE RECORDS SUMMARY | 2024-03-31 01:04 | XMS_ITS | Encounter Summary ---
Author Name [facility] [place] [facility] [place] Address [address] [place] [address] Care Team Providers Care Business Development Consultant Name Role Phone KODAK MORTON Primary [...] CHOIC E PREFE RR Apr 13, 2020 [id number] [phone] BOOGIE BAILEY ANDON PATIENT ANTHEM [employer] [place] PREFERRED PROVIDER ORGANIZAT ION (PPO) BLUE CHOIC E PREFE RR Apr 13, 2020 [id number] [phone] BOOGIE BAILEY ANDON PATIENT ANTHEM [employer] [place] PREFERRED PROVIDER ORGANIZAT ION (PPO) BLUE CHOIC E PREFE RR Apr 13, 2020 [id number] [phone] BOOGIE BAILEY ANDCARLA PATIENT [place] PREFERRED PROVIDER ORGANIZAT ION (PPO) BLUE CHOIC E PREFE RR Apr 13, 2020 [id number] [phone] BOOGIE BAILEY PATIENT PRIME THERAPEUTI CS RX PRESCRIPT ION BCBSI L [place] Apr 13, 2020 BCBSIL [id number] [phone] BOOGIE BAILEY PATIENT [facility] 2018 [place] May 10, 2019 SELECT [id number] BOOGIE BAILEY PATIENT Selected Encounter This section includes the information on record at [place] for the Encounter. Date/Time Encounter Type Encounter Description Reason Provider Source Jan 22, 2024 01:00 PM Outpatient Encounter PRIMARY CARE/MEDICINE CHICO BECKWITH Valentin Encounter Template Text not used by [...] PM AMBULATORY - REHAB MEDICIN E [facility] Feb 02, 2024 02:00 PM AMBULATORY - PSYCHIATRY [facility] Feb 08, 2024 09:00 AM AMBULATORY - NEUROLOGY [facility] Feb 12, 2024 02:30 PM AMBULATORY - NONE [facility] Feb 17, 2024 01:00 PM AMBULATORY - MEDICINE [facility] Feb 25, 2024 09:30 AM AMBULATORY - MEDICINE [facility] Mar 05, 2024 08:43 AM AMBULATORY - MEDICINE [facility] Mar 16, 2024 10:15 AM AMBULATORY - SURGERY . [facility] Mar 21, 2024 12:14 PM AMBULATORY - MEDICINE [facility] Apr 01, 2024 10:00 AM AMBULATORY - PSYCHIATRY [facility] Apr 28, 2024 03:00 PM AMBULATORY - MEDICINE [facility] May 05, 2024 11:30 AM [...] 02:11 PM Consult Order RHEUMATOLO GY OUTPATIENT [facility] Feb 17, 2024 01:16 PM Consult Order PLASTIC SHELLEY RGERY OUTPT [facility] Lab Results: +/- 30 [...] Range Comment Jan 26, 2024 02:47 PM [facility] CRP Specimen Type: PLASMA No comment entered. Ordering Provider: FRANSISCO MORTON Report Released Date/Time: Jan 26, 2024 02:11 PM Reporting Lab: [facility] [address] [facility] [address] Performing Lab: [facility] [address] [place] [id number] CRP 0.6 mg/dL H 0-0.5 Jan 26, 2024 02:47 PM [facility] ESR ISED(STL) Specimen Type: BLOOD No comment entered. Ordering Provider: FRANSISCO MORTON Report Released Date/Time: Jan 26, 2024 02:11 PM Reporting Lab: [facility] [address] [place] [id number] Performing Lab: [facility] [address] [place] [address] ESR ISED(STL) 35 mm/h H 0-14 Jan 26, 2024 02:47 PM [facility] RHEUMATOID FACTOR (STL) Specimen Type: SERUM No comment entered. Ordering Provider: FRANSISCO MORTON Report Released Date/Time: Jan 26, 2024 02:19 PM Reporting Lab: [facility] [address] [facility] [address] Performing Lab: [facility] [address] [facility] [address] RHEUMATOID FACTOR (STL) <15.0 0-29 Social History: [...] 2021 03:59 PM VA-TOBACCO NEVER USED [facility] Radiology Reports: +/- 30 days of the [...] THORAX W/O CONT HIGH RES: JORDYN BAILEY [id number] -1985 M Exm Date: FEB 12, 2024@14:18 Req Phys: FLOYD WOO Loc: [facility]M [facility] 1 (Req'g Loc) Img Loc: [facility] Service: [address] [address] (Case [id number] COMPLETE) CT THORAX W/O CONT HIGH RES (CT Detailed) CPT:99991 Reason for Study: chronic cough, exertional dyspnea, + hazardous exposure hx Clinical History: Responsible Attending: floyd woo PA-C Attending Contact Number: [phone] Resident Contact Number: Allergies listed in CPRS chart: SHELLFISH Creatinine: CREATININE 0.95 mg/dL 11/25/2023 11:00 /eGFR: STL EGFR (within one year). CREATININE 0.95 mg/dL (11/25/23 11:00) Wt: 218.3 lb [99.02 kg] (01/14/2024 08:55) History of: Renal failure, chronic or acute renal disease: NO Report Status: Verified Date Reported: FEB 15, 2024 Date Verified: FEB 15, 2024 Poultry Picker E-Sig:/ES/Lynn Castro MD Report: CASE #: [id number] DATE:02/12/2024 4:23 PM CLINICAL HISTORY:chronic cough, exertional [...] Primary Interpreting Staff: Lynn Castro MD, Radiologist (Poultry Picker) /LYNN ONEILL [facility] Jan 28, 2024 02:20 PM HAND,RIGHT,3 OR MO RE VIEWS: JORDYN BAILEY ANTHONY [id number] -1985 M Exm Date: JAN 28, 2024@14:20 Req Phys: KODAK MORTON Pat Loc: [facility] PACT B5 NEW PATIENT (Re Img Loc: -[facility] RADI[facility] SUITE Service: Unknown [facility], [address] [place] [address] (Case [id number] COMPLETE) HAND,RIGHT,3 OR MORE VIEWS (RAD Detailed) CPT:14419 Proc Modifiers : RIGHT Reason for Study: right hand feell stiff and pain specialy in morning Clinical History: right hand feell stiff and pain specialy in morning Report Status: Verified Date Reported: JAN 29, 2024 Date Verified: JAN 29, 2024 Poultry Picker E-Sig:/ES/ART ENCARNACION MD Report: Case #[id number]. Right hand examination. Finding: Three views of the right hand examination shows no fracture dislocation. No evidence of lytic or blastic bony lesion. No joint space narrowing or marginal erosion. No soft tissue swelling, radiopaque foreign body or abnormal calcification. Impression: No fracture dislocation or arthritic change. Primary Interpreting Staff: ART ENCARNACION MD, Staff Physician - Radiologist (Poultry Picker) /ART ANDRADE [facility] Jan 28, 2024 02:20 PM WRIST,RIGHT,3 OR M ORE VIEWS: JORDYN BAILEY [id number] -1985 M Exm Date: JAN 28, 2024@14:20 Req Phys: KODAK MORTON Loc: [facility] PACT B5 NEW PATIENT (Re Img Loc: -[facility] RADIOLOG[facility] SUITE Service: [facility], [address] [address] (Case [id number] COMPLETE) WRIST,RIGHT,3 OR MORE VIEWS (RAD Detailed) CPT:68969 Proc Modifiers : RIGHT Reason for Study: right writs pain Clinical History: c/o right wroist pain Report Status: Verified Date Reported: JAN 29, 2024 Date Verified: JAN 29, 2024 Poultry Picker E-Sig:/ES/ART ENCARNACION MD Report: Case #[id number]. Right [...] ART ENCARNACION MD, Staff Physician - Radiologist (Poultry Picker) /ART ANDRADE [facility] Jan 28, 2024 02:20 PM HAND,LEFT,3 OR MOR E VIEWS: JORDYN BAILEY ANTHONY [id number] -1985 M Exm Date: JAN 28, 2024@14:20 Req Phys: KODAK MORTON Loc: [facility] PACT B5 NEW PATIENT (Re Img Loc: [facility] RADIOLOGY SUITE Service: Unknown [facility] [address] [place] [address] (Case [id number] COMPLETE) HAND,LEFT,3 OR MORE VIEWS (RAD Detailed) CPT:70726 Proc Modifiers : LEFT Reason for Study: left hand feell stiff and pain specialy in morning Clinical History: eft hand feell stiff and pain specialy in morning Report Status: Verified Date Reported: JAN 29, 2024 Date Verified: JAN 29, 2024 Poultry Picker E-Sig:/NATALIIA/ART ENCARNACION MD Report: Case #[id number]. Left hand examination. Finding: Three views of the left hand examination shows no fracture dislocation. No evidence of lytic or blastic bony lesion. No joint space narrowing or marginal erosion. No soft tissue swelling, radiopaque foreign body or abnormal calcification. Impression: No fracture dislocation or arthritic change. Primary Interpreting Staff: ART ENCARNACION MD, Staff Physician - Radiologist (Poultry Picker) /ART ANDRADE [facility] Jan 28, 2024 02:20 PM WRIST,LEFT, 3 OR M ORE VIEWS: LYNNJORDYN ANTHONY [id number] -1985 M Exm Date: JAN 28, 2024@14:20 Req Phys: KODAK MORTON Loc: [facility] PACT B5 NEW PATIENT (Re Img Loc: [facility] RADIOLOGY SUITE Service: Unknown [facility] [address] [place] [address] (Case [id number] COMPLETE) WRIST,LEFT, 3 OR MORE VIEWS (RAD Detailed) CPT:24792 Proc Modifiers : LEFT Reason for Study: c/o left wrist pain Clinical History: c/o left wrist pain Report Status: Verified Date Reported: JAN 29, 2024 Date Verified: JAN 29, 2024 Poultry Picker E-Sig:/NATALIIA/ART ENCARNACION MD Report: Case #[id number]. Left [...] ART ENCARNACION MD, Staff Physician - Radiologist (Poultry Picker) /ART ANDRADE [facility] Jan 09, 2024 12:[address] CERVICAL SPINE W/O CONT: JORDYN BAILEY [id number] -1985 M Exm Date: JAN 09, 2024@12:18 Req Phys: BING ORTIZ Loc: [facility]-EMERGENCY DEPT 2ND SHIFT (R Img Loc: [facility] Service: [address] [address] (Case [id number] COMPLETE) CT CERVICAL SPINE W/O CONT (CT Detailed) CPT:41445 Reason for Study: Neck pain, bilateral arm pain/weakness Clinical History: Responsible Attending: Yovany Attending Contact Number: [id number] Resident Contact Number: Neck pain, bilateral arm pain/weakness Allergies listed in CPRS chart: SHELLFISH Creatinine/eGFR: STL EGFR (within one year). CREATININE 0.95 mg/dL (11/25/23 11:00) Wt: 220.4 lb [99.97 kg] (11/25/2023 10:03) History of: Renal failure, chronic or acute renal disease: NO Report Status: Verified Date Reported: JAN 09, 2024 Date Verified: JAN 09, 2024 Poultry Picker E-Sig: Report: CT CERVICAL SPINE W/O CONT [...] dedicated MRI. READING PHYSICIAN: Ifrah Guzmán M.D. -[phone] 01/09/2024 11:23 PDT [facility] National Teleradiology Program [phone] (For Medical Practitioner Use Only) Attention Patients / Veterans: If you have questions or concerns about these test results, please contact your ordering provider or primary care team. Primary Interpreting Staff: RADIOLOGY,OUTSIDE SERVICE, Staff Physician / RADIOLOGY,OUTSIDE SERVICE [facility] Encounter Notes: All associated encounter notes This section contains the clinical notes associated to the Encounter. Date/Time Encounter Note(s) Provider Source Jan 22, 2024 03:23 PM PRIMARY CARE [employer] MESSAGING: LOCAL TITLE: PRIMARY CARE SECURE MESSAGING STANDARD TITLE: PRIMARY CARE SECURE MESSAGING DATE OF NOTE: JAN 22, 2024@15:23 ENTRY DATE: JAN 22, 2024@14:23:23 AUTHOR: CHICO BECKWITH EXP COSIGNER: URGENCY: STATUS: COMPLETED ------Original Message ------- Sent: 01/22/2024 01:27 PM ET From: JORDYN BAILEY To: AMAIRANI, 8_Nacho MORTON_Adrian, [place] Subject: Medication:Refill request for Carpel Tunnel I'm wondering how long this may take ? and will it be a tapered dosage? ------Original Message ------- Sent: 01/22/2024 03:23 PM ET From: CHICO BECKWITH To: JORDYN BAILEY Subject: Medication:Refill request for Carpel Tunnel Per our conversation on the phone -- it will be 4 days. You will see Dr. Morton on 01/25 and he will decide if you need anything more, and if tapering is appropriate treatment. Respectfully, Chico ALAN /nataliia/ CHICO BECKWITH MSM, RN,[facility] REGISTERED NURSE Signed: 01/22/2024 14:23 CHICO BECKWITH [facility] Jan 22, 2024 01:00 PM PRIMARY CARE MISTY E MESSAGING: LOCAL TITLE: PRIMARY CARE SECURE MESSAGING STANDARD TITLE: PRIMARY CARE SECURE MESSAGING DATE OF NOTE: JAN 22, 2024@13:00 ENTRY DATE: JAN 22, 2024@12:00:23 AUTHOR: CHICO BECKWITH EXP COSIGNER: URGENCY: STATUS: COMPLETED PRIMARY CARE SECURE MESSAGING Has ADDENDA ------Original Message ------- Sent: 01/22/2024 08:01 AM ET From: JORDYN BAILEY To: [facility], Caron_SELENE M_Primary Care, [place] Subject: Medication:Refill request for Carpel Tunnel Hello, I saw the ER on [address] and was prescribed Hydrocodone, Prednisone and an ointment. I have been taking them as advised by the ER doctor and as of yesterday i ran out of the Prednisone and last night i had the worst pain in my arms which caused me to have very little sleep. I am wondering if Dr. Morton or his substitute could possibly get me a refill on the Prednisone since i feel it's the only meds that are helping my cope with the pain and inflammation in my wrist, fingers and arms. I am seeing the doctor on this upcoming Thursday but i don 't not want to go a few more days of sleepless nights due to pain. ------Original Message ------- Sent: 01/22/2024 12:59 PM ET From: CHICO BECKWITH To: JORDYN BAILEY Subject: Medication:Refill request for Carpel Tunnel Hello Mr. Bailey, I will alert the covering doctor for Dr. Morton to your request for the steroid. Respectfully, Chico ALAN /nataliia/ CHICO BECKWITH MSM, RN,[facility] REGISTERED NURSE Signed: 01/22/2024 12:00 Receipt Acknowledged By: 01/22/2024 12:07 /nataliia/ NONA HILARIO STAFF PHYSICIAN for KODAK MORTON 01/22/2024 ADDENDUM STATUS: COMPLETED pt has already taken 10 days of prdnisone 20mg daily , will place 4 more days of prednisone at the window till evaluated by pcp /nataliia/ NONA HILARIO STAFF PHYSICIAN Signed: 01/22/2024 12:09 Receipt Acknowledged By: 01/22/2024 13:52 /luis BECKWITH MSM, RN,[facility] REGISTERED NURSE 01/22/2024 ADDENDUM STATUS: COMPLETED RNCM called pt - please see note above. /luis BECKWITH MSM, RN,[facility] REGISTERED NURSE Signed: 01/22/2024 13:53 CHICO BECKWITH [facility] Jan 22, 2024 12:07 PM ADDENDUM: LOCAL TITLE: Addendum STANDARD TITLE: ADDENDUM DATE OF NOTE: JAN 22, 2024@12:07:31 ENTRY DATE: JAN 22, 2024@12:07:32 AUTHOR: NONA HILARIO EXP COSIGNER: URGENCY: STATUS: COMPLETED pt has already taken 10 days of prdnisone 20mg daily , will place 4 more days of prednisone at the window till evaluated by pcp /nataliia/ NONA HILARIO STAFF PHYSICIAN Signed: 01/22/2024 12:09 Receipt Acknowledged By: 01/22/2024 13:52 /luis BECKWITH MSM, RN,[facility] REGISTERED NURSE ====== --- Original Document --- 01/22/24 PRIMARY CARE SECURE MESSAGING: ------Original Message ------- Sent: 01/22/2024 08:01 AM ET From: JORDYN BAILEY To: AMAIRANI, 8[facility]Nacho [facility] Subject: Medication:Refill request for Carpel Tunnel Hello, I saw the ER on [address] and was prescribed Hydrocodone, Prednisone and an ointment. I have been taking them as advised by the ER doctor and as of yesterday i ran out of the Prednisone and last night i had the worst pain in my arms which caused me to have very little sleep. I am wondering if Dr. Morton or his substitute could possibly get me a refill on the Prednisone since i feel it's the only meds that are helping my cope with the pain and inflammation in my wrist, fingers and arms. I am seeing the doctor on this upcoming Thursday but i don 't not want to go a few more days of sleepless nights due to pain. ------Original Message ------- Sent: 01/22/2024 12:59 PM ET From: CHICO BECKWITH To: JORDYN BAILEY Subject: Medication:Refill request for Carpel Tunnel Hello Mr. Bailey, I will alert the covering doctor for Dr. Morton to your request for the steroid. Respectfully, Chico ALAN /nataliia/ CHICO BECKWITH MSM, RN,[facility] REGISTERED NURSE Signed: 01/22/2024 12:00 Receipt Acknowledged By: 01/22/2024 12:07 /nataliia/ NONA HILARIO STAFF PHYSICIAN for NONA ROMERO [facility]
--- OUTSIDE RECORDS SUMMARY | 2024-03-31 01:04 | XMS_ITS | Encounter Summary ---
Author Name [facility] [place] [facility] [place] [facility] [place] Address [address], [place] [address] Care Team Providers Care Information Services Manager Name Role Phone KODAK MORTON Primary [...] CHOIC E PREFE RR Apr 13, 2020 [id number] [phone] BOOGIE BAILEY ANDON PATIENT ANTHE[place] [employer] [place] PREFERRED PROVIDER ORGANIZAT ION (PPO) BLUE CHOIC E PREFE RR Apr 13, 2020 [id number] [phone] BOOGIE BAILEY ANDON PATIENT AN[employer] [employer] [place] PREFERRED PROVIDER ORGANIZAT ION (PPO) BLUE CHOIC E PREFE RR Apr 13, 2020 [id number] [phone] BOOGIE BAILEY ANDON PATIENT [place] PREFERRED PROVIDER ORGANIZAT ION (PPO) BLUE CHOIC E PREFE RR Apr 13, 2020 [id number] [phone] BOOGIE BAILEY PATIENT PRIME THERAPEUTI CS RX PRESCRIPT ION BCBSI L [place] Apr 13, 2020 [id number] [phone] BOOGIE BAILEY PATIENT [facility] 2018 TRICA RE May 10, 2019 SELECT [id number] BOOGIE BAILEY PATIENT Selected Encounter This section includes the information on record at [place] for the Encounter. Date/Time Encounter Type Encounter Description Reason Provider Source Jan 22, 2024 01:21 PM OFF/OP EST AUGUST X REQ PHY/QHP TELEPHONE PRIMARY CARE ICD-10-CM Z71.9 Counseling, unspecified CHICO BECKWITH Valentin Encounter Template Text not used by [place] Assessments - Encounter Diagnoses This section includes the primary and secondary diagnoses documented for the Encounter. Date/Time Primary/Secondary Diagnosis Diagnosis Name Provider Source Jan 22, 2024 01:21 PM PRIMARY Counseling, unspecified CHICO BECKWITH [facility] Plan of Treatment: Future Appointments (+ 6 months) and Future Tests (+/- 45 days) The Plan of Treatment section includes future care activities for the patient from all [place] treatmentfacilities. This section includes future appointments and future orders which are active, pending or scheduled. Future Appointments This section includes appointments that were scheduled to occur 6 months from the date of the Encounter, up to a maximum of 20 appointments. The data comes from all [place] treatment facilities. Appointment Date/Time Appointment Type Appointme nt Facility Name Jan 26, 2024 01:00 PM AMBULATORY - MEDICINE [facility] Jan 28, 2024 01:45 PM AMBULATORY - REHAB MEDICIN E [facility] Feb 02, 2024 02:00 PM AMBULATORY - PSYCHIATRY [facility] Feb 08, 2024 09:00 AM AMBULATORY - NEUROLOGY [facility] Feb 12, 2024 02:30 PM AMBULATORY - NONE . [facility] Feb 17, 2024 01:00 PM AMBULATORY - MEDICINE [facility] Feb 25, 2024 09:30 AM AMBULATORY - MEDICINE [facility] Mar 05, 2024 08:43 AM AMBULATORY - MEDICINE [facility] Mar 16, 2024 10:15 AM AMBULATORY - SURGERY . [facility] Mar 21, 2024 12:14 PM AMBULATORY - MEDICINE [facility] Apr 01, 2024 10:00 AM AMBULATORY - PSYCHIATRY [facility] Apr 28, 2024 03:00 PM [facility] May 05, 2024 11:30 AM AMBULATORY - MEDICINE [facility] May 27, 2024 11:00 AM AMBULATORY - MEDICINE [facility] Active, Pending, and Scheduled Orders This section includes a listing of several types of active, pending, and scheduled orders, including clinic medications orders, diagnostic test orders, procedure orders and consult orders; where the start date of the order is 45 days before the date of the Encounter or 45 days after the date of theEncounter. The data comes from all [place] treatment facilities. Test Date/Time Test Type Test Details Facility Name Jan 26, 2024 02:11 PM Consult Order RHEUMATOLO GY OUTPATIENT [facility] Feb 17, 2024 01:16 PM Consult Order PLASTIC SHELLEY RGERY OUTPT [facility] Lab Results: +/- 30 days of the encounter This section includes the Chemistry and Hematology Lab Results on record with [place] for the patient. Radiology Reports and Pathology Reports are provided separately, in subsequent sections. Lab Results This section contains the Chemistry/Hematology Results that were resulted 30 days before or 30 daysafter the date of the Encounter. Date/Time Source Result Type Result - Unit Interpretation Reference Range Comment Jan 26, 2024 02:47 PM [facility] CRP Specimen Type: PLASMA No comment entered. Ordering Provider: FRANSISCO MORTON Report Released Date/Time: Jan 26, 2024 02:11 PM Reporting Lab: [facility] [address] [facility] [address] Performing Lab: [facility] [address] [address] CRP 0.6 mg/dL H 0-0.5 Jan 26, 2024 02:47 PM [facility] ESR ISED(STL) Specimen Type: BLOOD No comment entered. Ordering Provider: FRANSISCO MORTON Report Released Date/Time: Jan 26, 2024 02:11 PM Reporting Lab: [facility] [address] [facility] [address] Performing Lab: [facility] [address] [facility] [address] ESR ISED(STL) 35 mm/h H 0-14 Jan 26, 2024 02:47 PM [facility] RHEUMATOID FACTOR (STL) Specimen Type: SERUM No comment entered. Ordering Provider: FRANSISCO MORTON Report Released Date/Time: Jan 26, 2024 02:19 PM Reporting Lab: [facility] [address] [facility] [address] Performing Lab: [facility] [address] [facility] [address] RHEUMATOID FACTOR (STL) <15.0 0-29 Social History: Smoking Status (Most current) and Tobacco Use (All prior to encounter date) This section includes the most current, and the historical, smoking and tobacco- related health factors from the [place] facility where the Encounter took place. Current Smoking Status This section includes the most current smoking, or tobacco-related health factor, from the [place] facility where the Encounter took place. Date/Time Current Smoking Status Comment Nicolas ity May 20, 2023 09:00 AM VA-TOBACCO FORMER USER [facility] Tobacco Use History This section includes a history of the smoking, or tobacco-related health factors, that were collected on or before the date of the Encounter. The data comes from the [place] facility where the Encounter took place. Date/Time Smoking Status/Tobacco Use Comment F acility May 20, 2023 09:00 AM VA-TOBACCO QUIT 15 YRS OR MORE [facility] May 28, 2022 10:30 AM VA-TOBACCO NEVER USED [facility] Radiology Reports: +/- 30 days [...] the Encounter. The data comes from all [place] treatment facilities. Date/Time Radiology Report Provider Source Feb 12, 2024 02:[address] THORAX W/O CONT HIGH RES: JORDYN BAILEY ANTHONY [id number] -1985 M Exm Date: FEB 12, 2024@14:18 Req Phys: FLOYD WOO Loc: [facility] (Req'g Loc) Img Loc: [facility] Service: Unknown [facility], [facility] [address] [place] [address] (Case [id number] COMPLETE) CT THORAX W/O CONT HIGH RES (CT Detailed) CPT:13911 Reason for Study: chronic cough, exertional dyspnea, + hazardous exposure hx Clinical History: Responsible Attending: floyd woo PA-C Attending Contact Number: [phone] Resident Contact Number: Allergies listed in CPRS chart: SHELLFISH Creatinine: CREATININE 0.95 mg/dL 11/25/2023 11:00 /eGFR: STL EGFR (within one year). CREATININE 0.95 mg/dL (11/25/23 11:00) Wt: 218.3 lb [99.02 kg] (01/14/2024 08:55) History of: Renal failure, chronic or acute renal disease: NO Report Status: Verified Date Reported: FEB 15, 2024 Date Verified: FEB 15, 2024 Computer System Technician E-Sig:/ES/Lynn Castro MD Report: CASE #: [id number] DATE:02/12/2024 4:23 PM CLINICAL HISTORY:chronic cough, exertional [...] Primary Interpreting Staff: Lynn Castro MD, Radiologist (Computer System Technician) /LYNN ONEILL [facility] Jan 28, 2024 02:20 PM HAND,RIGHT,3 OR [place] RE VIEWS: JORDYN BAILEY ANTHONY [id number] -1985 M Exm Date: JAN 28, 2024@14:20 Req Phys: KODAK MORTON Pat Loc: [facility] PACT B5 NEW PATIENT (Re Img Loc: [facility] RADIOLOGY SUITE Service: Unknown [facility] [address] [place] [address] (Case [id number] COMPLETE) HAND,RIGHT,3 OR MORE VIEWS (RAD Detailed) CPT:15428 Proc Modifiers : RIGHT Reason for Study: right hand feell stiff and pain specialy in morning Clinical History: right hand feell stiff and pain specialy in morning Report Status: Verified Date Reported: JAN 29, 2024 Date Verified: JAN 29, 2024 Computer System Technician E-Sig:/NATALIIA/ART ENCARNACION MD Report: Case #[id number]. Right hand examination. Finding: Three views of the right hand examination shows no fracture dislocation. No evidence of lytic or blastic bony lesion. No joint space narrowing or marginal erosion. No soft tissue swelling, radiopaque foreign body or abnormal calcification. Impression: No fracture dislocation or arthritic change. Primary Interpreting Staff: ART ENCARNACION MD, Staff Physician - Radiologist (Computer System Technician) /ART ANDRADE [facility] Jan 28, 2024 02:20 PM WRIST,RIGHT,3 OR M ORE VIEWS: JORDYN BAILEY [id number] -1985 M Exm Date: JAN 28, 2024@14:20 Req Phys: KODAK MORTON Loc: [facility] PACT B5 NEW PATIENT (Re Img Loc: [facility] RADIOLOG[facility] SUITE Service: Unknown [facility] [address] [place] [address] (Case [id number] COMPLETE) WRIST,RIGHT,3 OR MORE VIEWS (RAD Detailed) CPT:45660 Proc Modifiers : RIGHT Reason for Study: right writs pain Clinical History: c/o right wroist pain Report Status: Verified Date Reported: JAN 29, 2024 Date Verified: JAN 29, 2024 Computer System Technician E-Sig:/NATALIIA/ART ENCARNACION MD Report: Case #[id number]. Right [...] ART ENCARNACION MD, Staff Physician - Radiologist (Computer System Technician) /ART ANDRADE [facility] Jan 28, 2024 02:20 PM HAND,LEFT,3 OR MOR E VIEWS: JORDYN BAILEY [id number] -1985 M Exm Date: JAN 28, 2024@14:20 Req Phys: KODAK MORTON Loc: [facility] PACT B5 NEW PATIENT (Re Img Loc: -[facility] RADIOLOGY SUITE Service: [facility], [facility] [address] [place] [address] (Case [id number] COMPLETE) HAND,LEFT,3 OR MORE VIEWS (RAD Detailed) CPT:54436 Proc Modifiers : LEFT Reason for Study: left hand feell stiff and pain specialy in morning Clinical History: eft hand feell stiff and pain specialy in morning Report Status: Verified Date Reported: JAN 29, 2024 Date Verified: JAN 29, 2024 Computer System Technician E-Sig:/ES/ART ENCARNACION MD Report: Case #[id number]. Left hand examination. Finding: Three views of the left hand examination shows no fracture dislocation. No evidence of lytic or blastic bony lesion. No joint space narrowing or marginal erosion. No soft tissue swelling, radiopaque foreign body or abnormal calcification. Impression: No fracture dislocation or arthritic change. Primary Interpreting Staff: ART ENCARNACION MD, Staff Physician - Radiologist (Computer System Technician) /ART [facility]ADE [facility] Jan 28, 2024 02:20 PM WRIST,LEFT, 3 OR M ORE VIEWS: JORDYN BAILEY ANTHONY [id number] -1985 M Exm Date: JAN 28, 2024@14:20 Req Phys: KODAK MORTON Loc: [facility] PACT B5 NEW PATIENT (Re Img Loc: -MAIN RADIOLOGY SUITE Service: Unknown [address] [address] (Case [id number] COMPLETE) WRIST,LEFT, 3 OR MORE VIEWS (RAD Detailed) CPT:92682 Proc Modifiers : LEFT Reason for Study: c/o left wrist pain Clinical History: c/o left wrist pain Report Status: Verified Date Reported: JAN 29, 2024 Date Verified: JAN 29, 2024 Computer System Technician E-Sig:/ES/ART ENCARNACION MD Report: Case #[id number]. Left [...] ART ENCARNACION MD, Staff Physician - Radiologist (Computer System Technician) /ART ANDRADE [facility] Jan 09, 2024 12:[address] CERVICAL SPINE W/O CONT: JORDYN BAILEY [id number] -1985 M Exm Date: JAN 09, 2024@12:18 Req Phys: BING ORTIZ Loc: -EMERGENCY DEPT 2ND SHIFT (R Img Loc: -CT IMAGING Service: Unknown [address] [address] (Case [id number] COMPLETE) CT CERVICAL SPINE W/O CONT (CT Detailed) CPT:81662 Reason for Study: Neck pain, bilateral arm pain/weakness Clinical History: Responsible Attending: Yovany Attending Contact Number: [phone] Resident Contact Number: Neck pain, bilateral arm pain/weakness Allergies listed in CPRS chart: SHELLFISH Creatinine/eGFR: STL EGFR (within one year). CREATININE 0.95 mg/dL (11/25/23 11:00) Wt: 220.4 lb [99.97 kg] (11/25/2023 10:03) History of: Renal failure, chronic or acute renal disease: NO Report Status: Verified Date Reported: JAN 09, 2024 Date Verified: JAN 09, 2024 Computer System Technician E-Sig: Report: CT CERVICAL SPINE W/O CONT Clinical History: Neck pain, bilateral arm pain/weakness Comparison: No priors available Technique: Noncontrast CT of the cervical spine was performed. The study was protocoled and supervised at the local [place] facility. 1116 images were subsequently received by the [place] National Teleradiology Program (NTP) for interpretation. Total [...] dedicated MRI. READING PHYSICIAN: Ifrah Guzmán M.D. -[phone] 01/09/2024 11:23 PDT [facility] National Teleradiology Program [phone] (For Medical Practitioner Use Only) Attention Patients / Veterans: If you have questions or concerns about these test results, please contact your ordering provider or primary care team. Primary Interpreting Staff: RADIOLOGY,OUTSIDE SERVICE, Staff Physician / RADIOLOGY,OUTSIDE SERVICE [facility] Encounter Notes: All associated encounter notes This section contains the clinical notes associated to the Encounter. Date/Time Encounter Note(s) Provider Source Jan 22, 2024 01:21 PM NURSING NOTE: LOCAL TITLE: V15 PACT TELEPHONE CONTACT NOTE [facility] STANDARD TITLE: NURSING NOTE DATE OF NOTE: JAN 22, 2024@13:21 ENTRY DATE: JAN 22, 2024@13:21:41 AUTHOR: CHICO BECKWITH COSIGNER: URGENCY: STATUS: COMPLETED Patient/Other contacted: Patient Patient Identifiers : Full Name Date of Telephone Number Other: Denies current symptoms,recent trauma/exposure, or other health concerns; confirmed patient safety. RNCM called pt- pt states that he is needing more prednisone to last him till he can get in to see PCP, 01/26/2024. RNCM reached out to covering provider, and she placed a 4 day script of prednisone. RNCM provided education on the effects of half-way steroid treatment. It can affect your immune system, bone changes, muscle wasting, fluid shifts. Pt agreed but states that he has tried heat and ice to the muscles, compression, elevation and nothing has seemed to help with the pain. Contact provided Primary Care phone number and encouraged to call if any questions or concerns. Pt will worm picker prednisone at pharmacy window today. Review that after hours nurse line ext. [phone] and emergency room are available 03/11 for patient use. Contact understanding verified by teach back: Yes Total time spent on phone: 10 minutes /nataliia/ CHICO BECKWITH MSM, RN,CCM REGISTERED NURSE Signed: 01/22/2024 13:30 CHICO BECKWITH [facility]
--- OUTSIDE RECORDS SUMMARY | 2024-03-31 01:05 | XMS_ITS | Encounter Summary ---
Author Name [facility] [place] [facility] [place] Address [address] [place] [address] Care Team Providers Care Mason Tender Name Role Phone KODAK MORTON Primary [...] CHOIC E PREFE RR Apr 13, 2020 [id number] [phone] BOOGIE PINEDA ANDON PATIENT [employer] [employer] [place] PREFERRED PROVIDER ORGANIZAT ION (PPO) BLUE CHOIC E PREFE RR Apr 13, 2020 [id number] [phone] LYNN,BOOGIE ANDON PATIENT [employer] [employer] [place] PREFERRED PROVIDER ORGANIZAT ION (PPO) BLUE CHOIC E PREFE RR Apr 13, 2020 [id number] [phone] BOOGIE PINEDA ANDON PATIENT [employer] [place] PREFERRED PROVIDER ORGANIZAT ION (PPO) BLUE CHOIC E PREFE RR Apr 13, 2020 [id number] [phone] BOOGIE PINEDA PATIENT PRIME THERAPEUTI CS RX PRESCRIPT ION [facility] L [place] Apr 13, 2020 [id number] [phone] BOOGIE PINEDA PATIENT [facility] 2018 TRICA RE May 10, 2019 SELECT [id number] BOOGIE PINEDA PATIENT Selected Encounter This section includes the information on record at [place] for the Encounter. Date/Time Encounter Type Encounter Description Reason Pro vider Source 2024 09:59 AM Outpatient Encounter ADMIN PAT ACTIVTIES (MASNONCT) [...] AMBULATORY - REHAB MEDICIN E [facility] Feb 02, 2024 02:00 PM AMBULATORY - PSYCHIATRY [facility] Feb 08, 2024 09:00 AM AMBULATORY - NEUROLOGY [facility] Feb 12, 2024 02:30 PM AMBULATORY - NONE [facility] Feb 17, 2024 01:00 PM AMBULATORY - MEDICINE [facility] Feb 25, 2024 09:30 AM AMBULATORY - MEDICINE [facility] Mar 05, 2024 08:43 AM AMBULATORY - MEDICINE [facility] Mar 16, 2024 10:15 AM AMBULATORY - SURGERY [facility] Mar 21, 2024 12:14 PM AMBULATORY - MEDICINE [facility] Apr 01, 2024 10:00 AM AMB[facility] - [facility]RY [facility] Apr 28, 2024 03:00 PM AMBULATORY - MEDICINE [facility] May 05, 2024 11:30 AM [...] 02:11 PM Consult Order RHEUMATOLO GY OUTPATIENT [facility] Cons Photographic Machine [employer]'s [facility] Feb 17, 2024 01:16 PM Consult Order PLASTIC SHELLEY RGERY OUTPT [facility] Lab Results: +/- 30 days of [...] 26, 2024 02:47 PM [facility] ESR ISED(STL) Specimen Type: BLOOD No comment entered. Ordering Provider: FRANSISCO MORTON Report Released Date/Time: Jan 26, 2024 02:11 PM Reporting Lab: [facility] [address] [facility] [address] Performing Lab: [facility] [address] [facility] [address] ESR ISED(STL) 35 mm/h H 0-14 Jan 26, 2024 02:47 PM [facility] CRP Specimen Type: PLASMA No comment entered. Ordering Provider: FRANSISCO MORTON Report Released Date/Time: Jan 26, 2024 02:11 PM Reporting Lab: [facility] [address] [facility] [address] Performing Lab: [facility] [address] [facility] [address] CRP 0.6 mg/dL H 0-0.5 Jan 26, 2024 02:47 PM [facility] RHEUMATOID FACTOR (STL) Specimen Type: SERUM No comment entered. Ordering Provider: FRANSISCO MORTON Report Released Date/Time: Jan 26, 2024 02:19 PM Reporting Lab: [facility] [address] [facility] [address] Performing Lab: [facility] [address] [facility] [address] RHEUMATOID FACTOR (STL) <15.0 0-29 Social History: [...] PM VA-TOBACCO NEVER USED [facility] Radiology Reports: +/- 30 days of [...] CT THORAX W/O CONT HIGH RES: JORDYN PINEDA [id number] -1985 M Exm Date: FEB 12, 2024@14:18 Req Phys: FLOYD WOO Loc: [facility] 1 (Req'g Loc) Img Loc: [facility] IMAGING [facility] Service: [facility] [address] [place] [address] (Case [id number] COMPLETE) CT THORAX W/O CONT HIGH RES (CT Detailed) CPT:83895 Reason for Study: chronic cough, exertional dyspnea, + hazardous exposure hx Clinical History: Responsible Attending: floyd woo PA-C Attending Contact Number: [phone] Resident Contact Number: Allergies listed in CPRS chart: SHELLFISH Creatinine: CREATININE 0.95 mg/dL 11/25/2023 11:00 /eGFR: STL EGFR (within one year). CREATININE 0.95 mg/dL (11/25/23 11:00) Wt: 218.3 lb [99.02 kg] (01/14/2024 08:55) History of: Renal failure, chronic or acute renal disease: NO Report Status: Verified Date Reported: FEB 15, 2024 Date Verified: FEB 15, 2024 Egg Smeller E-Sig:/ES/Lynn Castro MD Report: CASE #: [id number] DATE:02/12/2024 4:23 PM CLINICAL HISTORY:chronic cough, exertional [...] Primary Interpreting Staff: Lynn Castro MD, Radiologist (Egg Smeller) /LYNN ONEILL [facility] Jan 28, 2024 02:20 PM HAND,RIGHT,3 OR [place] RE VIEWS: JORDYN PINEDA [id number] -1985 M Exm Date: JAN 28, 2024@14:20 Req Phys: KODAK MORTON Loc: [facility] PACT B5 NEW PATIENT (Re Img Loc: -[facility] RADIOLOGY SUITE Service: Unknown [facility], [address] [place] [address] (Case [id number] COMPLETE) HAND,RIGHT,3 OR MORE VIEWS (RAD Detailed) CPT:19685 Proc Modifiers : RIGHT Reason for Study: right hand feell stiff and pain specialy in morning Clinical History: right hand feell stiff and pain specialy in morning Report Status: Verified Date Reported: JAN 29, 2024 Date Verified: JAN 29, 2024 Egg Smeller E-Sig:/FRANCY/ART ENCARNACION MD Report: Case #[id number]. Right hand examination. Finding: Three views of the right hand examination shows no fracture dislocation. No evidence of lytic or blastic bony lesion. No joint space narrowing or marginal erosion. No soft tissue swelling, radiopaque foreign body or abnormal calcification. Impression: No fracture dislocation or arthritic change. Primary Interpreting Staff: ART ENCARNACION MD, Staff Physician - Radiologist (Egg Smeller) /ART ANDRADE [facility] Jan 28, 2024 02:20 PM WRIST,RIGHT,3 OR M ORE VIEWS: JORDYN PINEDA [id number] -1985 M Exm Date: JAN 28, 2024@14:20 Req Phys: KODAK MORTON Pat Loc: [facility] PACT B5 NEW PATIENT (Re Img Loc: -[facility] RADIOLOGY SUITE Service: [facility], [facility] [address] [place] [address] (Case [id number] COMPLETE) WRIST,RIGHT,3 OR MORE VIEWS (RAD Detailed) CPT:46862 Proc Modifiers : RIGHT Reason for Study: right writs pain Clinical History: c/o right wroist pain Report Status: Verified Date Reported: JAN 29, 2024 Date Verified: JAN 29, 2024 Egg Smeller E-Sig:/ES/ART ENCARNACION MD Report: Case #[id number]. Right [...] ART ENCARNACION MD, Staff Physician - Radiologist (Egg Smeller) /ART ANDRADE [facility] Jan 28, 2024 02:20 PM HAND,LEFT,3 OR MOR E VIEWS: JORDYN PINEDA ANTHONY [id number] -1985 M Exm Date: JAN 28, 2024@14:20 Req Phys: KODAK MORTON Pat Loc: [facility] PACT B5 NEW PATIENT (Re Img Loc: [facility] RADIOLOGY SUITE Service: Unknown [facility] [address] [place] [address] (Case [id number] COMPLETE) HAND,LEFT,3 OR MORE VIEWS (RAD Detailed) CPT:26373 Proc Modifiers : LEFT Reason for Study: left hand feell stiff and pain specialy in morning Clinical History: eft hand feell stiff and pain specialy in morning Report Status: Verified Date Reported: JAN 29, 2024 Date Verified: JAN 29, 2024 Egg Smeller E-Sig:/FRANCY/ART ENCARNACION MD Report: Case #[id number]. Left hand examination. Finding: Three views of the left hand examination shows no fracture dislocation. No evidence of lytic or blastic bony lesion. No joint space narrowing or marginal erosion. No soft tissue swelling, radiopaque foreign body or abnormal calcification. Impression: No fracture dislocation or arthritic change. Primary Interpreting Staff: ART ENCARNACION MD, Staff Physician - Radiologist (Egg Smeller) /ART ANDRADE [facility] Jan 28, 2024 02:20 PM WRIST,LEFT, 3 OR M ORE VIEWS: LYNNJORDYN ANTHONY [id number] -1985 M Exm Date: JAN 28, 2024@14:20 Req Phys: KODAK MORTON Loc: [facility] PACT B5 NEW PATIENT (Re Img Loc: [facility] RADIOLOGY SUITE Service: Unknown [facility] [address] [place] [address] (Case [id number] COMPLETE) WRIST,LEFT, 3 OR MORE VIEWS (RAD Detailed) CPT:81473 Proc Modifiers : LEFT Reason for Study: c/o left wrist pain Clinical History: c/o left wrist pain Report Status: Verified Date Reported: JAN 29, 2024 Date Verified: JAN 29, 2024 Egg Smeller E-Sig:/FRANCY/ART ENCARNACION MD Report: Case #[id number]. Left [...] ART ENCARNACION MD, Staff Physician - Radiologist (Egg Smeller) /ART ANDRADE [facility] Jan 09, 2024 12:[address] CERVICAL SPINE W/O CONT: JORDYN PINEDA [id number] -1985 M Exm Date: JAN 09, 2024@12:18 Req Phys: BING ORTIZ Loc: [facility]EMERGENCY DEPT 2ND SHIFT (R Img Loc: [facility] Service: [address] [address] (Case [id number] COMPLETE) CT CERVICAL SPINE W/O CONT (CT Detailed) CPT:93297 Reason for Study: Neck pain, bilateral arm pain/weakness Clinical History: Responsible Attending: Yovany Attending Contact Number: [id number] Resident Contact Number: Neck pain, bilateral arm pain/weakness Allergies listed in CPRS chart: SHELLFISH Creatinine/eGFR: STL EGFR (within one year). CREATININE 0.95 mg/dL (11/25/23 11:00) Wt: 220.4 lb [99.97 kg] (11/25/2023 10:03) History of: Renal failure, chronic or acute renal disease: NO Report Status: Verified Date Reported: JAN 09, 2024 Date Verified: JAN 09, 2024 Egg Smeller E-Sig: Report: CT CERVICAL SPINE W/O CONT [...] dedicated MRI. READING PHYSICIAN: Ifrah Guzmán M.D. -[phone] 01/09/2024 11:23 PDT [facility] National Teleradiology Program [phone] (For Medical Practitioner Use Only) Attention Patients / Veterans: If you have questions or concerns about these test results, please contact your ordering provider or primary care team. Primary Interpreting Staff: RADIOLOGY,OUTSIDE SERVICE, Staff Physician / RADIOLOGY,OUTSIDE SERVICE [facility] Encounter Notes: All associated encounter notes This section contains the clinical notes associated to the Encounter. Date/Time Encounter Note(s) Provider Source 2024 09:59 AM PHYSICIAN LETTERS: LOCAL TITLE: NO CONTACT LETTER ST STANDARD TITLE: PHYSICIAN LETTERS DATE OF NOTE: 2024@09:59 ENTRY DATE: 2024@09:59:40 AUTHOR: OLMAN SCHREIBER EXP COSIGNER: URGENCY: STATUS: COMPLETED [facility] [address] [place] [address] 2024 JORDYN PINEDA [address], [place] [address] Dear Jordyn Pineda, Thank you for choosing the [facility] as your primary choice for health care. As a partner in your health care, we are attempting to contact you because we have been unsuccessful in reaching you by phone to schedule your clinic appointment. Please call us at [phone], extension [phone] to speak to us regarding making an appointment in the [facility] clinic. Your good health is important to [...] the clinic to inquire about scheduling. Sincerely, OLMAN SCHREIBER [employer]VANCED MOLDING MACHINE TENDER JORDYN IPNEDA ARNETTA [facility]
--- OUTSIDE RECORDS SUMMARY | 2024-03-31 01:06 | XMS_ITS | Encounter Summary ---
Author Name [facility] [facility] [facility] [place] Address [address] [place] [address] Care Team Providers Care Solderer Barrel Ribs Name Role Phone KODAK MORTON Primary Care [...] CHOIC E PREFE RR Apr 13, 2020 [id number] [phone] BOOGIE BAILEY ANDON PATIENT ANTHEM [employer] [place] PREFERRED PROVIDER ORGANIZAT ION (PPO) BLUE CHOIC E PREFE RR Apr 13, 2020 [id number] [phone] LYNN,BOOGIE ANDON PATIENT ANTHEM [employer] [place] PREFERRED PROVIDER ORGANIZAT ION (PPO) BLUE CHOIC E PREFE RR Apr 13, 2020 [id number] [phone] BOOGIE BAILEY ANDON PATIENT [employer] PREFERRED PROVIDER ORGANIZAT ION (PPO) BLUE CHOIC E PREFE RR Apr 13, 2020 [id number] [phone] BOOGIE BAILEY PATIENT PRIME THERAPEUTI CS RX PRESCRIPT ION BCBSI L [place] Apr 13, 2020 BCBSIL [id number] [phone] BOOGIE BAILEY [facility]IENT [facility] TRICA RE May 10, 2019 SELECT [id number] BOOGIE BAILEY PATIENT Selected Encounter This section includes the information on record at [place] for the Encounter. Date/Time Encounter Type Encounter Description Reason Provider Source Feb 02, 2024 02:00 PM FAMILY PSYTX W/PT [facility] - IND ICD-10-CM Z63.0 Problems in relationship with spouse or partner LORAINE NOEL [facility] Encounter Template Text not used by [place] Assessments - Encounter Diagnoses This section includes the primary and secondary diagnoses documented for the Encounter. Date/Time Primary/Secondary Diagnosis Diagnosis Name Provider Source Feb 05, 2024 05:11 PM PRIMARY Problems in relationship with spouse or partner MIRIAN NOEL [facility] Plan of Treatment: Future Appointments (+ [...] Date/Time Appointment Type Appointme nt Facility Name Feb 08, 2024 09:00 AM AMBULATORY - NEUROLOGY [facility] Feb 12, 2024 02:30 PM AMBULATORY - NONE [facility] Feb 17, 2024 01:00 PM AMBULATORY - MEDICINE [facility] Feb 25, 2024 09:30 AM AMBULATORY - MEDICINE [facility] Mar 05, 2024 08:43 AM AMBULATORY - MEDICINE [facility] Mar 16, 2024 10:15 AM AMBULATORY - SURGERY [facility] Mar 21, 2024 12:14 PM AMBULATORY - MEDICINE [facility] Apr 01, 2024 10:00 AM [facility] Apr 28, 2024 03:00 PM AMBULATORY - MEDICINE [facility] May 05, 2024 11:30 AM AMBULATORY - MEDICINE [facility] May 27, 2024 11:00 AM AMBULATORY - MEDICINE [facility] Active, Pending, and Scheduled Orders This [...] 02:11 PM Consult Order RHEUMATOLO GY OUTPATIENT [facility] Cons [facility] Feb 17, 2024 01:16 PM Consult Order [facility]LASTIC [facility] Mar 16, 2024 10:22 AM Consult Order [facility] Lab Results: +/- 30 days of [...] Range Comment Jan 26, 2024 02:47 PM [facility] CRP Specimen Type: PLASMA No comment entered. Ordering Provider: FRANSISCO MORTON Report Released Date/Time: Jan 26, 2024 02:11 PM Reporting Lab: [facility] [address] [address] Performing Lab: [facility] [address] [address] CRP 0.6 mg/dL H 0-0.5 Jan 26, 2024 02:47 PM [facility] ESR ISED(STL) Specimen Type: BLOOD No comment entered. Ordering Provider: FRANSISCO MORTON Report Released Date/Time: Jan 26, 2024 02:11 PM Reporting Lab: [facility] [address] [address] Performing Lab: [facility] [address] [address] ESR ISED(STL) 35 mm/h H 0-14 Jan 26, 2024 02:47 PM [facility] RHEUMATOID FACTOR (STL) Specimen Type: SERUM No comment entered. Ordering Provider: FRANSISCO MORTON Report Released Date/Time: Jan 26, 2024 02:19 PM Reporting Lab: [facility] [address] [address] Performing Lab: [facility] [address] [address] RHEUMATOID FACTOR (STL) <15.0 0-29 Radiology Reports: +/- 30 days of the [...] THORAX W/O CONT HIGH RES: JORDYN BAILEY [id number] -1985 M Exm Date: FEB 12, 2024@14:18 Req Phys: FLOYD WOO Loc: [facility]PULM [facility] 1 (Req'g Loc) [facility] Loc: [facility]-CT IMAGING [facility] Service: [address] [address] (Case [id number] COMPLETE) CT THORAX W/O CONT HIGH RES (CT Detailed) CPT:11039 Reason for Study: chronic cough, exertional dyspnea, + hazardous exposure hx Clinical History: Responsible Attending: floyd woo PA-C Attending Contact Number: [phone] Resident Contact Number: Allergies listed in CPRS chart: SHELLFISH Creatinine: CREATININE 0.95 mg/dL 11/25/2023 11:00 /eGFR: STL EGFR (within one year). CREATININE 0.95 mg/dL (11/25/23 11:00) Wt: 218.3 lb [99.02 kg] (01/14/2024 08:55) History of: Renal failure, chronic or acute renal disease: NO Report Status: Verified Date Reported: FEB 15, 2024 Date Verified: FEB 15, 2024 Weather Observer E-Sig:/ES/Lynn Castro MD Report: CASE #: [id number] DATE:02/12/2024 4:23 PM CLINICAL HISTORY:chronic cough, exertional [...] Primary Interpreting Staff: Lynn Castro MD, Radiologist (Weather Observer) /LYNN ONEILL [facility] Jan 28, 2024 02:20 PM HAND,RIGHT,3 OR MO RE VIEWS: JORDYN BAILEY ANTHONY [id number] -1985 M Exm Date: JAN 28, 2024@14:20 Req Phys: KODAK MORTON Loc: [facility] PACT B5 NEW PATIENT (Re Img Loc: -[facility] RADIOLOGY SUITE Service: [facility], [facility] [address] [place] [address] (Case [id number] COMPLETE) HAND,RIGHT,3 OR MORE VIEWS (RAD Detailed) CPT:31068 Proc Modifiers : RIGHT Reason for Study: right hand feell stiff and pain specialy in morning Clinical History: right hand feell stiff and pain specialy in morning Report Status: Verified Date Reported: JAN 29, 2024 Date Verified: JAN 29, 2024 Weather Observer E-Sig:/NATALIIA/ART ENCARNACION MD Report: Case #[id number]. Right hand examination. Finding: Three views of the right hand examination shows no fracture dislocation. No evidence of lytic or blastic bony lesion. No joint space narrowing or marginal erosion. No soft tissue swelling, radiopaque foreign body or abnormal calcification. Impression: No fracture dislocation or arthritic change. Primary Interpreting Staff: ART ENCARNACION MD, Staff Physician - Radiologist (Weather Observer) /ART ANDRADE [facility] Jan 28, 2024 02:20 PM WRIST,RIGHT,3 OR M ORE VIEWS: JORDYN BAILEY [id number] -1985 M Exm Date: JAN 28, 2024@14:20 Req Phys: SELENEKODAK PALACIO Pat Loc: [facility] PACT B5 NEW PATIENT (Re Img Loc: [facility] RAD[facility] SUITE Service: Unknown [address] [address] (Case [id number] COMPLETE) WRIST,RIGHT,3 OR MORE VIEWS (RAD Detailed) CPT:30456 Proc Modifiers : RIGHT Reason for Study: right writs pain Clinical History: c/o right wroist pain Report Status: Verified Date Reported: JAN 29, 2024 Date Verified: JAN 29, 2024 Weather Observer E-Sig:/ES/ART ENCARNACION MD Report: Case #[id number]. Right [...] ART ENCARNACION MD, Staff Physician - Radiologist (Weather Observer) /ART ANDRADE [facility] Jan 28, 2024 02:20 PM HAND,LEFT,3 OR MOR E VIEWS: JORDYN BAILEY [id number] -1985 M Exm Date: JAN 28, 2024@14:20 Req Phys: KODAK MORTON Pat Loc: [facility] PACT B5 NEW PATIENT (Re Img Loc: -[facility] RADIOLOGY SUITE Service: Unknown [facility] [address] [place] [address] (Case [id number] COMPLETE) HAND,LEFT,3 OR MORE VIEWS (RAD Detailed) CPT:47674 Proc Modifiers : LEFT Reason for Study: left hand feell stiff and pain specialy in morning Clinical History: eft hand feell stiff and pain specialy in morning Report Status: Verified Date Reported: JAN 29, 2024 Date Verified: JAN 29, 2024 Weather Observer E-Sig:/ES/ART ENCARNACION MD Report: Case #[id number]. Left hand examination. Finding: Three views of the left hand examination shows no fracture dislocation. No evidence of lytic or blastic bony lesion. No joint space narrowing or marginal erosion. No soft tissue swelling, radiopaque foreign body or abnormal calcification. Impression: No fracture dislocation or arthritic change. Primary Interpreting Staff: ART ENCARNACION MD, Staff Physician - Radiologist (Weather Observer) /ART ANDRADE [facility] Jan 28, 2024 02:20 PM WRIST,LEFT, 3 OR M ORE VIEWS: JORDYN BAILEY [id number] -1985 M Exm Date: JAN 28, 2024@14:20 Req Phys: KODAK MORTON Pat Loc: [facility] PACT B5 NEW PATIENT (Re Img Loc: -[facility] RAD[facility]OLOG[facility] SUITE Service: [facility], [facility] [address] [place] [address] (Case [id number] COMPLETE) WRIST,LEFT, 3 OR MORE VIEWS (RAD Detailed) CPT:74445 Proc Modifiers : LEFT Reason for Study: c/o left wrist pain Clinical History: c/o left wrist pain Report Status: Verified Date Reported: JAN 29, 2024 Date Verified: JAN 29, 2024 Weather Observer E-Sig:/NATALIIA/ART ENCARNACION MD Report: Case #[id number]. Left [...] ART ENCARNACION MD, Staff Physician - Radiologist (Weather Observer) /ART ANDRADE [facility] Jan 09, 2024 12:[address] CERVICAL SPINE W/O CONT: JORDYN BAILEY [id number] -1985 M Exm Date: JAN 09, 2024@12:18 Req Phys: BING ORTIZ Dara Loc: [facility]-EMERGENCY DEPT 2ND SHIFT (R Img Loc: [facility]CT IMAGING [facility] Service: Unknown [facility], [facility] [address] [place] [address] (Case [id number] COMPLETE) CT CERVICAL SPINE W/O CONT (CT Detailed) CPT:58160 Reason for Study: Neck pain, bilateral arm pain/weakness Clinical History: Responsible Attending: Yovany Attending Contact Number: [id number] Resident Contact Number: Neck pain, bilateral arm pain/weakness Allergies listed in CPRS chart: SHELLFISH Creatinine/eGFR: STL EGFR (within one year). CREATININE 0.95 mg/dL (11/25/23 11:00) Wt: 220.4 lb [99.97 kg] (11/25/2023 10:03) History of: Renal failure, chronic or acute renal disease: NO Report Status: Verified Date Reported: JAN 09, 2024 Date Verified: JAN 09, 2024 Weather Observer E-Sig: Report: CT CERVICAL SPINE W/O CONT [...] dedicated MRI. READING PHYSICIAN: Ifrah Guzmán M.D. -[phone] 01/09/2024 11:23 PDT [facility] National Teleradiology Program [phone] (For Medical Practitioner Use Only) Attention Patients / Veterans: If you have questions or concerns about these test results, please contact your ordering provider or primary care team. Primary Interpreting Staff: RADIOLOGY,OUTSIDE SERVICE, Staff Physician / RADIOLOGY,OUTSIDE SERVICE [facility] Encounter Notes: All associated encounter notes This section contains the clinical notes associated to the Encounter. 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 Surveyed the environment and identified all participants. Locked the virtual conference room once all participants joined. Confirmed 's Non-VA location for this appointment: Home Address:[address] [place] [address] Emergency Contact: Primary NOK: JOSÉ MENSAH Relation: EXTENDED FAMILY M [address] [place], [place] [address] Phone: in chart Informed Consent: and family member were informed of the risks, benefits and potential complications of participating in family assessment/therapy. They were informed about this provider's status as a mandated transport assistant and the limits of confidentiality, and were given the chance to consider moving on with care. They were educated about Measurement Based Care, including its risks and benefits. They each agreed to participate. Couples Therapy: Orientation/Joint Assessment Session Time in session (in minutes): 60 SESSION NUMBER 1 SESSION FORMAT Uhpr-ut-wacp session SESSION LOCATION [facility] DIAGNOSIS: Primary (focus of treatment): z63.0 ASSESSMENT Initial Risk Assessment: and partner described their recent family interactions. Despite presence of relationship stressors, they denied any current acute risks relating to suicide or homicide, and did not endorse concerns about partner violence, and are therefore sustainable at an outpatient level of care. The next session will include detailed individual assessment of suicide risk and interpersonal violence history. ASSESSMENT MEASURES USED THIS SESSION: Measures not collected/administered this session. Charlotte and family member were informed of the use of CSI in therapy. MENTAL STATUS/PRESENTATION: Charlotte and family member appeared grossly within normal limits. MEASURABLE TREATMENT GOALS FOR THIS EPISODE OF CARE: Formal treatment goals will be established following an assessment with agreement of both parties. PARTICIPANTS IN SESSION: Charlotte and spouse SESSION CONTENT The completed the initial session of Couples Therapy. This session focuses on orientation to the therapy and joint assessment. In this orientation session, the following therapeutic activities were performed: INTRODUCTORY REVIEW --The clinician outlined the agenda. --The clinician provided an overview of couples therapy. --The clinician answered questions about treatment. CONTENT AREAS The clinician elicited the couple's presenting complaints. The couple would like to improve their communication and overall satisfaction in their relationship. The clinician began to assess relationship history. THERAPY POLICIES The clinician outlined policies regarding: --Sharing of information within the family. --Reporting mandates regarding dangerousness of self or others, abuse reporting laws for children, seniors and disabled individuals. --Managing urgent situations, including providing suicide hotline number and local ER and clinic number. --Role of clinician as part of treatment team --Who to contact for urgent situations --Documentation of treatment - discussed that session content is typically documented in Charlotte's chart and family member may not access without consent. SUMMARY The couple has been together for 12 years, for 11 after meeting in [place]. [place], just before the Covid shutdown. They stated that due to Michelle's compromised immune system they are just now getting back to social environemnts, however, they still wear a mask. The expressed how much this isolation has affected his mental health, however, he was will to do this to keep her safe. She stated that she is unsure of her diagnosis, however, has been diagnosed with Multiple Sclerosis and a new brain lesion was recently discovered. They discussed how her limitations have affected them as a couple as well as her individually. He feels that at this point he has taken on the role of a care-taker and this has been particularly difficult for him as this is not how he anticipated his retriement. They feel their relationship has moved into the room mate phase. and neither are okay with this. They stated that they would like to improve communication as well as their overall relationship satisfaction. COLLABORATION The degree of collaboration between the Charlotte and the therapist in the current session was high. expressed agreement with initial therapy tasks and cmsjmy-ns-teipkw plan. RTC Plan:04/18 @ 11am /nataliia/ Mirian Noel Psy.D Marriage and Family Therapist, GERARD Blanco Signed: 02/05/2024 17:10 MIRIAN NOEL [facility] Feb 02, 2024 02:00 PM TELEHEALTH NOTE: LOCAL TITLE: V15 [facility] DIGITAL DIVIDE SET-UP REVIEW STANDARD TITLE: TELEHEALTH NOTE DATE OF NOTE: FEB 02, 2024@14:00 ENTRY DATE: FEB 05, 2024@17:18:59 AUTHOR: MIRIAN NOEL COSIGNER: URGENCY: STATUS: COMPLETED Patient is interested in [facility] appointments. [facility] requirements have been communicated to the . The confirms understanding of those requirements and indicates the following [facility] needs: Charlotte DOES NOT HAVE virtual equipment or peripheral devices. The Provider and the agree to the use of Telehealth but the Charlotte does not have access to virtual equipment OR lacks broadband (internet) to participate OR needs peripheral devices. The has been informed a [place] Frontend Engineer will be contacting them to complete a Digital Divide Assessment which will determine how best to meet their needs for [facility] appointments. 'S RIGHT TO DECLINE STATEMENT Charlotte understands they have the right to decline the use of Telehealth Technology at any time without adverse affects on their continued access to healthcare. /nataliia/ Mirian Noel Psy.D Marriage and Family Therapist, GERARD 58 Signed: 02/05/2024 17:21 MIRIAN NOEL [facility]
--- OUTSIDE RECORDS SUMMARY | 2024-03-31 01:06 | XMS_ITS ---
Author Name [facility] [place] Address [address] [place] [address] Care Team Providers Care Coldfusion Name Role Phone KODAK MORTON Primary Care [...] CHOIC E PREFE RR Apr 13, 2020 [id number] [phone] BOOGIE BAILEY ANDON PATIENT ANTHEM [employer] [place] PREFERRED PROVIDER ORGANIZAT ION (PPO) BLUE CHOIC E PREFE RR Apr 13, 2020 [id number] [phone] BOOGIE BAILEY ANDON PATIENT ANTHEM [employer] [place] PREFERRED PROVIDER ORGANIZAT ION (PPO) BLUE CHOIC E PREFE RR Apr 13, 2020 [id number] [phone] BOOGIE BAILEY ANDCARLA PATIENT [employer] [place] PREFERRED PROVIDER ORGANIZAT ION (PPO) BLUE CHOIC E PREFE RR Apr 13, 2020 [id number] [phone] BOOGIE BAILEY PATIENT PRIME THERAPEUTI CS RX PRESCRIPT ION BCBSI L [place] Apr 13, 2020 BCBSIL [id number] [phone] BOOGIE BAILEY PATIENT [facility] 2018 [place] May 10, 2019 [facility] [id number] BOOGIE BAILEY PATIENT Selected Encounter This section includes the information on record at [place] for the Encounter. Date/Time Encounter Type Encounter Description Reason Provider Source Feb 03, 2024 10:14 AM Outpatient Encounter PRIMARY CARE/MEDICINE NOELLE FLORES Valentin Encounter Template Text not used by [place] Plan of Treatment: Future Appointments (+ 6 months) and Future Tests (+/- 45 days) The Plan of Treatment section includes future care activities for the patient from all [place] treatmentfacilities. This section includes future appointments and future orders which are active, pending or scheduled. Future Appointments This section includes appointments that were scheduled to occur 6 months from the date of the Encounter, up to a maximum of 20 appointments. The data comes from all [place] treatment facilities. Appointment Date/Time Appointment Type Appointme nt Facility Name Feb 08, 2024 09:00 AM AMBULATORY - NEUROLOGY [facility] Feb 12, 2024 02:30 PM AMBULATORY - NONE [facility] Feb 17, 2024 01:00 PM AMBULATORY - MEDICINE [facility] Feb 25, 2024 09:30 AM AMBULATORY - MEDICINE [facility] Mar 05, 2024 08:43 AM AMBULATORY - MEDICINE [facility] Mar 16, 2024 10:15 AM AMBULATORY - SURGERY [facility] Mar 21, 2024 12:14 PM AMBULATORY - MEDICINE [facility] Apr 01, 2024 10:00 AM AMBULATORY - PSYCHIATRY [facility] Apr 28, 2024 03:00 PM AMBULATORY - MEDICINE [facility] May 05, 2024 11:30 AM AMBULATORY - MEDICINE [facility] May 27, 2024 11:00 AM AMBULATORY - MEDICINE [facility] Active, Pending, and Scheduled Orders This section includes a listing of several types of active, pending, and scheduled orders, including clinic medications orders, diagnostic test orders, procedure orders and consult orders; where the start date of the order is 45 days before the date of the Encounter or 45 days after the date of theEncounter. The data comes from all [place] treatment facilities. Test Date/Time Test Type Test Details Facility Name Jan 26, 2024 02:11 PM Consult Order RHEUMATOLO GY OUTPATIENT ST Cons [facility] [facility] Feb 17, 2024 01:16 PM Consult Order PLASTIC SHELLEY RGERY OUTPT ST[facility] Cons [facility] Mar 16, 2024 10:22 AM Consult Order [facility] PLASTIC SURG [facility] Lab Results: +/- 30 days of the encounter This section includes the Chemistry and Hematology Lab Results on record with [place] for the patient. Radiology Reports and Pathology Reports are provided separately, in subsequent sections. Lab Results This section contains the Chemistry/Hematology Results that were resulted 30 days before or 30 daysafter the date of the Encounter. Date/Time Source Result Type Result - Unit Interpretation Reference Range Comment Jan 26, 2024 02:47 PM [facility] CRP Specimen Type: PLASMA No comment entered. Ordering Provider: FRANSISCO MORTON Report Released Date/Time: Jan 26, 2024 02:11 PM Reporting Lab: [facility] [address] [facility] [address] Performing Lab: [facility] [address] [facility] [address] CRP 0.6 mg/dL H 0-0.5 Jan 26, 2024 02:47 PM [facility] ESR ISED(STL) Specimen Type: BLOOD No comment entered. Ordering Provider: FRANSISCO MORTON Report Released Date/Time: Jan 26, 2024 02:11 PM Reporting Lab: [facility] [address] [facility] [address] Performing Lab: [facility] [address] [facility] [address] ESR ISED(STL) 35 mm/h H 0-14 Jan 26, 2024 02:47 PM [facility] RHEUMATOID FACTOR (STL) Specimen Type: SERUM No comment entered. Ordering Provider: FRANSISCO MORTON Report Released Date/Time: Jan 26, 2024 02:19 PM Reporting Lab: [facility] [address] [facility] [address] Performing Lab: [facility] [address] [facility] [address] RHEUMATOID FACTOR (STL) <15.0 0-29 Social History: Smoking Status (Most current) and Tobacco Use (All prior to encounter date) This section includes the most current, and the historical, smoking and tobacco- related health factors from the [place] facility where the Encounter took place. Current Smoking Status This section includes the most current smoking, or tobacco-related health factor, from the [place] facility where the Encounter took place. Date/Time Current Smoking Status Comment Facil ity Feb 26, 2021 03:59 PM [facility]-TOBACCO NEVER USED [facility] Radiology Reports: +/- 30 days of the [...] the Encounter. The data comes from all [place] treatment facilities. Date/Time Radiology Report Provider Source Feb 12, 2024 02:[address] THORAX W/O CONT HIGH RES: LYNNJORDYNCARLA CRUZ [id number] -1985 M Exm Date: FEB 12, 2024@14:18 Req Phys: FLOYD WOO Pat Loc: [facility] 1 (Req'g Loc) Img Loc: [facility] IMAGING [facility] Service: Unknown [facility] [address] [place] [address] (Case [id number] COMPLETE) CT THORAX W/O CONT HIGH RES (CT Detailed) CPT:38364 Reason for Study: chronic cough, exertional dyspnea, + hazardous exposure hx Clinical History: Responsible Attending: floyd woo PA-C Attending Contact Number: [phone] Resident Contact Number: Allergies listed in CPRS chart: SHELLFISH Creatinine: CREATININE 0.95 mg/dL 11/25/2023 11:00 /eGFR: STL EGFR (within one year). CREATININE 0.95 mg/dL (11/25/23 11:00) Wt: 218.3 lb [99.02 kg] (01/14/2024 08:55) History of: Renal failure, chronic or acute renal disease: NO Report Status: Verified Date Reported: FEB 15, 2024 Date Verified: FEB 15, 2024 Ballast Regulator Operator E-Sig:/ES/Lynn Castro MD Report: CASE #: [id number] DATE:02/12/2024 4:23 PM CLINICAL HISTORY:chronic cough, exertional [...] Primary Interpreting Staff: Lynn Castro MD, Radiologist (Ballast Regulator Operator) /LYNN ONEILL [facility] Jan 28, 2024 02:20 PM HAND,RIGHT,3 OR MO RE VIEWS: JORDYN BAILEY [id number] -1985 M Exm Date: JAN 28, 2024@14:20 Req Phys: KODAK MORTON Loc: [facility] PACT B5 NEW PATIENT (Re Img Loc: -MAIN RADIOLOGY SUITE Service: [facility], [facility] [address] [place] [address] (Case [id number] COMPLETE) HAND,RIGHT,3 OR MORE VIEWS (RAD Detailed) CPT:71187 Proc Modifiers : RIGHT Reason for Study: right hand feell stiff and pain specialy in morning Clinical History: right hand feell stiff and pain specialy in morning Report Status: Verified Date Reported: JAN 29, 2024 Date Verified: JAN 29, 2024 Ballast Regulator Operator E-Sig:/ES/ART ENCARNACION MD Report: Case #[id number]. Right hand examination. Finding: Three views of the right hand examination shows no fracture dislocation. No evidence of lytic or blastic bony lesion. No joint space narrowing or marginal erosion. No soft tissue swelling, radiopaque foreign body or abnormal calcification. Impression: No fracture dislocation or arthritic change. Primary Interpreting Staff: ART ENCARNACION MD, Staff Physician - Radiologist (Ballast Regulator Operator) /ART ANDRADE [facility] Jan 28, 2024 02:20 PM WRIST,RIGHT,3 OR M ORE VIEWS: JORDYN BAILEY [id number] -1985 M Exm Date: JAN 28, 2024@14:20 Req Phys: SELENEKODAK PALACIO Pat Loc: [facility] PACT B5 NEW PATIENT (Re Img Loc: [facility] RADIOLOGY SUITE Service: Unknown [address] [address] (Case [id number] COMPLETE) WRIST,RIGHT,3 OR MORE VIEWS (RAD Detailed) CPT:63462 Proc Modifiers : RIGHT Reason for Study: right writs pain Clinical History: c/o right wroist pain Report Status: Verified Date Reported: JAN 29, 2024 Date Verified: JAN 29, 2024 Ballast Regulator Operator E-Sig:/ES/ART ENCARNACION MD Report: Case #[id number]. Right [...] ART ENCARNACION MD, Staff Physician - Radiologist (Ballast Regulator Operator) /ART ANDRADE [facility] Jan 28, 2024 02:20 PM HAND,LEFT,3 OR MOR E VIEWS: JORDYN BAILEY ANTHONY [id number] -1985 M Exm Date: JAN 28, 2024@14:20 Req Phys: KODAK MORTON T Pat Loc: [facility] PACT B5 NEW PATIENT (Re Img Loc: -[facility] RADIOLOGY SUITE Service: Unknown [facility] [address] [place] [address] (Case [id number] COMPLETE) HAND,LEFT,3 OR MORE VIEWS (RAD Detailed) CPT:36854 Proc Modifiers : LEFT Reason for Study: left hand feell stiff and pain specialy in morning Clinical History: eft hand feell stiff and pain specialy in morning Report Status: Verified Date Reported: JAN 29, 2024 Date Verified: JAN 29, 2024 Ballast Regulator Operator E-Sig:/FRANCY/ART ENCARNACION MD Report: Case #[id number]. Left hand examination. Finding: Three views of the left hand examination shows no fracture dislocation. No evidence of lytic or blastic bony lesion. No joint space narrowing or marginal erosion. No soft tissue swelling, radiopaque foreign body or abnormal calcification. Impression: No fracture dislocation or arthritic change. Primary Interpreting Staff: ART ENCARNACION MD, Staff Physician - Radiologist (Ballast Regulator Operator) /ART ANDRADE [facility] Jan 28, 2024 02:20 PM WRIST,LEFT, 3 OR M ORE VIEWS: JORDYN BAILEY [id number] -1985 M Exm Date: JAN 28, 2024@14:20 Req Phys: KODAK MORTON Loc: [facility] PACT B5 NEW PATIENT (Re Img Loc: -[facility] RADIOLOGY SUITE Service: Unknown [facility] [address] [place] [address] (Case [id number] COMPLETE) WRIST,LEFT, 3 OR MORE VIEWS (RAD Detailed) CPT:09336 Proc Modifiers : LEFT Reason for Study: c/o left wrist pain Clinical History: c/o left wrist pain Report Status: Verified Date Reported: JAN 29, 2024 Date Verified: JAN 29, 2024 Ballast Regulator Operator E-Sig:/FRANCY/ART ENCARNACION MD Report: Case #[id number]. Left [...] ART ENCARNACION MD, Staff Physician - Radiologist (Ballast Regulator Operator) /ART ANDRADE [facility] Jan 09, 2024 12:[address] CERVICAL SPINE W/O CONT: JORDYN BAILEY [id number] -1985 M Exm Date: JAN 09, 2024@12:18 Req Phys: BING ORTIZ Loc: [facility]-EMERGENCY DEPT 2ND SHIFT (R Img Loc: [facility] Service: [facility], [facility] [address] [place] [address] (Case [id number] COMPLETE) CT CERVICAL SPINE W/O CONT (CT Detailed) CPT:71513 Reason for Study: Neck pain, bilateral arm pain/weakness Clinical History: Responsible Attending: Yovany Attending Contact Number: [id number] Resident Contact Number: Neck pain, bilateral arm pain/weakness Allergies listed in CPRS chart: SHELLFISH Creatinine/eGFR: STL EGFR (within one year). CREATININE 0.95 mg/dL (11/25/23 11:00) Wt: 220.4 lb [99.97 kg] (11/25/2023 10:03) History of: Renal failure, chronic or acute renal disease: NO Report Status: Verified Date Reported: JAN 09, 2024 Date Verified: JAN 09, 2024 Ballast Regulator Operator E-Sig: Report: CT CERVICAL SPINE W/O CONT Clinical History: Neck pain, bilateral arm pain/weakness Comparison: No priors available Technique: Noncontrast CT of the cervical spine was performed. The study was protocoled and supervised at the local [place] facility. 1116 images were subsequently received by the [place] National Teleradiology Program (NTP) for interpretation. Total [...] dedicated MRI. READING PHYSICIAN: Ifrah Guzmán M.D. -[id number] 01/09/2024 11:23 PDT [facility] National Teleradiology Program [phone] (For Medical Practitioner Use Only) Attention Patients / Veterans: If you have questions or concerns about these test results, please contact your ordering provider or primary care team. Primary Interpreting Staff: RADIOLOGY,OUTSIDE SERVICE, Staff Physician / RADIOLOGY,OUTSIDE SERVICE [facility] Encounter Notes: All associated encounter notes This section contains the clinical notes associated to the Encounter. Date/Time Encounter Note(s) Provider Source Feb 03, 2024 10:14 AM PRIMARY CARE [employer] MESSAGING: LOCAL TITLE: PRIMARY CARE SECURE MESSAGING STANDARD TITLE: PRIMARY CARE SECURE MESSAGING DATE OF NOTE: FEB 03, 2024@10:14 ENTRY DATE: FEB 03, 2024@09:14:10 AUTHOR: NOELLE FLORES EXP COSIGNER: URGENCY: STATUS: COMPLETED ------Original Message ------- Sent: 02/03/2024 10:07 AM ET From: NOELLE FLORES To: JORDYN BAILEY Subject: General:General Inquiry Good Morning, Per Dr. Morton: x-ray of hand and wrist were all negative Left hand x-ray report No fracture dislocation or arthritic change. Right hand x-ray report No fracture dislocation or arthritic change. Right wrist x-ray report No fracture dislocation or arthritic change. Wrist x-ray report Impression: No fracture dislocation or arthritic change. He can take Mobac diclofenac acid 50 mg twice a day we will order to mail to him He also scheduled for nerve conduction study on February 07 that we will give her some more idea about his complaint of pain in his hand and wrist Noelle JIMENEZ, four slide machine setter /es/ NOELLE JIMENEZ RN REGISTERED NURSE Signed: 02/03/2024 09:14 NOELLE FLORES [facility]
--- OUTSIDE RECORDS SUMMARY | 2024-03-31 01:06 | XMS_ITS | Encounter Summary ---
Author Name [facility] [facility] [place] [facility] [place] Address [address] [place] [address] Care Team Providers Care Behavioral Health Rn Name Role Phone KODAK MORTON Primary Care [...] CHOIC E PREFE RR Apr 13, 2020 [id number] [phone] BOOGIE BAILEY ANDON PATIENT ANTHEM [employer] [place] PREFERRED PROVIDER ORGANIZAT ION (PPO) BLUE CHOIC E PREFE RR Apr 13, 2020 [id number] [phone] BOOGIE BAILEY ANDON PATIENT ANTHEM [employer] [place] PREFERRED PROVIDER ORGANIZAT ION (PPO) BLUE CHOIC E PREFE RR Apr 13, 2020 [id number] [phone] BOOGIE BAILEY ANDCARLA PATIENT [employer] [place] PREFERRED PROVIDER ORGANIZAT ION (PPO) BLUE CHOIC E PREFE RR Apr 13, 2020 [id number] [phone] BOOGIE BAILEY PATIENT PRIME THERAPEUTI CS RX PRESCRIPT ION BCBSI L [place] Apr 13, 2020 BCBSIL [id number] [phone] BOOGIE BAILEY PATIENT [facility] 2018 TRICA RE May 10, 2019 SELECT [id number] BOOGIE BAILEY PATIENT Selected Encounter This section includes the information on record at [place] for the Encounter. Date/Time Encounter Type Encounter Description Reason Pro vider Source Feb 08, 2024 09:08 AM Outpatient Encounter EVENT (HISTORICAL) IHE Encounter Template Text not used by [facility] Plan of Treatment: Future Appointments (+ 6 months) and Future Tests (+/- 45 days) The Plan of Treatment section includes future care activities for the patient from all [place] treatmentfacilities. This section includes future appointments and future orders which are active, pending or scheduled. Future Appointments This section includes appointments that were scheduled to occur 6 months from the date of the Encounter, up to a maximum of 20 appointments. The data comes from all [place] treatment facilities. Appointment Date/Time Appointment Type Appointme nt Facility Name Feb 12, 2024 02:30 PM AMBULATORY - NONE [facility] Feb 17, 2024 01:00 PM AM[facility]ULATORY - MEDICINE [facility] Feb 25, 2024 09:30 AM AMBULATORY - MEDICINE [facility] Mar 05, 2024 08:43 AM [facility] Mar 16, 2024 10:15 AM AMBULATORY - SURGERY [facility] Mar 21, 2024 12:14 PM [facility] Apr 01, 2024 10:00 AM AMBULATORY - PSYCHIATRY [facility] Apr 28, 2024 03:00 PM [facility] May 05, 2024 11:30 AM AMBULATORY - MEDICINE [facility] May 27, 2024 11:00 AM AMBULATORY - MEDICINE [facility] Active, Pending, and Scheduled Orders This section includes a listing of several types of active, pending, and scheduled orders, including clinic medications orders, diagnostic test orders, procedure orders and consult orders; where the start date of the order is 45 days before the date of the Encounter or 45 days after the date of theEncounter. The data comes from all [place] treatment facilities. Test Date/Time Test Type Test Details Facility Name Jan 26, 2024 02:11 PM Consult Order RHEUMATOLO GY OUTPATIENT STL Cons [facility]rophysi[facility] Feb 17, 2024 01:16 PM Consult Order PLASTIC SHELLEY RGERY OUTPT STL Cons [facility]rophysi[facility] Mar 16, 2024 10:22 AM Consult Order [facility] PLASTIC SURG Cons Electrophysiologist's [facility] Mar 21, 2024 03:48 PM Procedure Order CP EKG STL CP EKG - STL Proc Electrophysiologist'[facility] Lab Results: +/- 30 days of the encounter This section includes the Chemistry and Hematology Lab Results on record with [place] for the patient. Radiology Reports and Pathology Reports are provided separately, in subsequent sections. Lab Results This section contains the Chemistry/Hematology Results that were resulted 30 days before or 30 daysafter the date of the Encounter. Date/Time Source Result Type Result - Unit Interpretation Reference Range Comment Mar 05, 2024 11:10 AM [facility] TROPONIN I Specimen Type: PLASMA No comment entered. Ordering Provider: MUKESH MARINELLI Report Released Date/Time: Mar 05, 2024 11:04 AM Reporting Lab: [facility] [address] [facility] [address] Performing Lab: [address] [address] TROPONIN I <0.010 ng/mL 0-0.033 Mar 05, 2024 09:50 AM [facility] RESPIRATORY PCR PANEL Specimen Type: NASOPHARYNX Comment: The [employer] RP Panel combines nested multiplex PCR and DNA melting analysis for the simultaneous qualitative detection and identification of multiple respiratory viral and bacterial nucleic acids. A negative result does not preclude infection with the agent(s) tested and should not be used as the sole basis for treatment or other patient management decisions. Detection of organism target(s) does not imply that the corresponding organisms are infectious or are the causative agents for clinical symptoms. Results from this test must be correlated with the clinical history, epidemiological data, and other data available to the clinician evaluating the patient. Claudio GREEN, ([phone]) Ordering Provider: MUKESH MARINELLI Report Released Date/Time: Mar 05, 2024 09:39 AM Reporting Lab: [address] [address] Performing Lab: [address] [address] *Adenovirus (BF) Not Detected Not Detected *Coronavirus HKU1 (BF) Not Detected Not Detected *Coronavirus NL63 (BF) Not Detected Not Detected *Coronavirus 229E (BF) Not Detected Not Detected *Coronavirus OC43 (BF) Not Detected Not Detected *Human Metapneumovirus (BF) Not Detected Not Detected *Human Rhino/Enteroviru s(BF) Not Detected Not Detected *Influenza A (BF) Not Detected Not Detected *Influenza B (BF) Not Detected Not Detected *Parainfluenza Virus 1 (BF) Not Detected Not Detected *Parainfluenza Virus 2 (BF) Not Detected Not Detected *Parainfluenza Virus 3 (BF) Not Detected Not Detected *Parainfluenza Virus 4 (BF) Not Detected Not Detected *Resp Syncytial Virus (BF) Not Detected Not Detected *Bordetella pertussis (BF) Not Detected Not Detected *Chlamydophilia pneumoniae (BF) Not Detected Not Detected *Mycoplasma pneumoniae (BF) Not Detected Not Detected *Bordatella parapertussis (BF) Not Detected Not Detected COVID-19 (BIOFIRE) Not Detected Not Detected Mar 05, 2024 09:00 AM [facility] CBC Specimen Type: BLOOD No comment entered. Ordering Provider: MUKESH MARINELLI Report Released Date/Time: Mar 05, 2024 08:52 AM Reporting Lab: [address] [address] Performing Lab: [address] [address] WBC 7.1 10*3/uL 3.6-11.2 RBC 4.84 10*6/uL 4.10-5.70 HGB 13.1 g/dL 13.1-16.8 HCT 38.6 38.2-48.4 MCV 79.8 fL L 80.0-100.0 MCH 27.1 pg 27.0-34.0 MCHC 33.9 g/dL 33.0-36.0 PLT 354 10*3/uL 150-400 MPV 9.9 fL 7.5-11.2 RDW 13.3 11.8-15.1 LYMPHOCYTES, AUTO % 14 MONOCYTES, AUTO % 7 NEUTROPHILS, AUTO % 78 EOSINOPHILS, AUTO % 0 BASOPHILS, AUTO % 0 LYMPHOCYTES, ABSOLUTE 1.00 10*3/uL 0.77-4.50 MONOCYTES, ABSOLUTE 0.50 10*3/uL 0.19-0.80 NEUTROPHILS, ABSOLUTE 5.53 10*3/uL 2.10-8.00 EOSINOPHILS, ABSOLUTE 0.03 10*3/uL 0.00-0.60 BASOPHILS, ABSOLUTE 0.01 10*3/uL 0.00-0.20 Mar 05, 2024 09:00 AM [facility] TROPONIN I Specimen Type: PLASMA Comment: No hemolysis noted. Ordering Provider: MUKESH MARINELLI Report Released Date/Time: Mar 05, 2024 08:52 AM Reporting Lab: [address] [address] Performing Lab: [address] [address] TROPONIN I 0.013 ng/mL 0-0.033 Mar 05, 2024 09:00 AM [facility] TSH (MA-PB) Specimen Type: SERUM No comment entered. Ordering Provider: MUKESH MARINELLI Report Released Date/Time: Mar 05, 2024 09:39 AM Reporting Lab: [address] [address] Performing Lab: [address] [address] TSH 0.283 u[IU]/mL L 0.47-5 FREE T4(REFLEX) 1.10 ng/mL 0.7-1.48 Mar 05, 2024 09:00 AM [facility] BRAIN NATRIURETIC PEPTIDE Specimen Type: PLASMA No comment entered. Ordering Provider: MUKESH MARINELLI Report Released Date/Time: Mar 05, 2024 09:39 AM Reporting Lab: [facility] [address] [facility] [address] Performing Lab: [facility] [address] [facility] [address] BRAIN NATRIURETIC PEPTIDE 16.2 pg/mL 0-100 Mar 05, 2024 09:00 AM [facility] COMPREHENSIVE METABOLIC PANEL Specimen Type: PLASMA Comment: No hemolysis noted. Ordering Provider: MUKESH MARINELLI Report Released Date/Time: Mar 05, 2024 08:52 AM Reporting Lab: [facility] [address] [facility] [address] Performing Lab: [place] [address] [facility] [address] CREATININE 0.92 mg/dL 0.7-1.3 UREA NITROGEN 15.6 mg/dL 9.0-25.0 GLUCOSE 153 mg/dL H 72-99 SODIUM 136 meq/L 136-145 POTASSIUM 4.2 meq/L 3.5-5 CHLORIDE 102 meq/L 98-107 CARBON DIOXIDE 24 meq/L 22-31 CALCIUM 9.6 mg/dL 8.4-10.4 PROTEIN 9.3 g/dL H 6-8.6 ALBUMIN 3.6 g/dL 3.4-5 TOTAL BILIRUBIN 0.9 mg/dL 0.2-1.2 ALKALINE PHOSPHATASE 79 U/L 40-150 AST/SGOT 45 U/L H 5-34 ALT/SGPT 25 U/L 8-40 EGFR (CKD-EPI 2020) 108.5 >60 Jan 26, 2024 02:47 PM [facility] CRP Specimen Type: PLASMA No comment entered. Ordering Provider: KODAK MORTON Report Released Date/Time: Jan 26, 2024 02:11 PM Reporting Lab: [place] [id number] [facility] [address] Performing Lab: [place] [address] [facility] [address] CRP 0.6 mg/dL H 0-0.5 Jan 26, 2024 02:47 PM [facility] ESR ISED(STL) Specimen Type: BLOOD No comment entered. Ordering Provider: SELENE,MOHAMMAD T Report Released Date/Time: Jan 26, 2024 02:11 PM Reporting Lab: [facility] [address] [facility] [address] Performing Lab: [facility] [address] [facility] [address] ESR ISED(STL) 35 mm/h H 0-14 Jan 26, 2024 02:47 PM [facility] RHEUMATOID FACTOR (STL) Specimen Type: SERUM No comment entered. Ordering Provider: KODAK MORTON Report Released Date/Time: Jan 26, 2024 02:19 PM Reporting Lab: [facility] [address] [facility] [address] Performing Lab: [address] [address] RHEUMATOID FACTOR (STL) <15.0 0-29 Social History: Smoking Status (Most current) and Tobacco Use (All prior to encounter date) This section includes the most current, and the historical, smoking and tobacco- related health factors from the [place] facility where the Encounter took place. Current Smoking Status This section includes the most current smoking, or tobacco-related health factor, from the [place] facility where the Encounter took place. Date/Time Current Smoking Status Comment Nicolas allen Feb 26, 2021 03:59 PM [place]-TOBACCO NEVER USED [facility] Radiology Reports: +/- 30 days of the [...] the Encounter. The data comes from all [place] treatment facilities. Date/Time Radiology Report Provider Source Mar 05, 2024 10:[address] PE CHEST W/3D: JORDYN BAILEY [id number] -1985 M Exm Date: MAR 05, 2024@10:00 Req Phys: MUKESH MARINELLI Loc: [facility]-EMERGENCY DEPT 2ND SHIFT (R Img Loc: [facility]-CT IMAGING [facility] Service: Unknown [facility] [address] [place] [address] (Case [id number] COMPLETE) CT THORAX W/CONT (PE) (CT Detailed) CPT:87462 Contrast Media : unspecified contrast media Reason for Study: chest pain, tachycardia Clinical History: Responsible Attending: Aman Attending Contact Number: ER Resident Contact Number: Allergies listed in CPRS chart: SHELLFISH Creatinine: CREATININE 0.95 mg/dL 11/25/2023 11:00 /eGFR: STL EGFR (within one year). CREATININE 0.95 mg/dL (11/25/23 11:00) Wt: 220.1 lb [99.84 kg] (01/26/2024 13:15) History of: Renal failure, chronic or acute renal disease: NO Report Status: Verified Date Reported: MAR 05, 2024 Date Verified: MAR 05, 2024 Booster Pump Operator E-Sig: Report: CT THORAX W/CONT (PE) [PRINTSET] HISTORY: chest pain, tachycardia COMPARISON: 02/12/2024 TECHNIQUE: Helical CT of the chest, with multiplanar reformats including maximum intensity projection (MIP) reconstructions, was performed at the local [place] facility. 1529 images were received by the [place] National Teleradiology Program (NTP) for interpretation. RADIATION DOSE (mGy*cm): 221 IV CONTRAST: Omnipaque 350, Volume (mL): 35.2 FINDINGS: Pulmonary Arteries: Limited examination secondary to suboptimal contrast opacification. The pulmonary arteries can be evaluated to the segmental level. No filling defects are seen. The main pulmonary artery is normal in caliber. Airways: Patent. Lungs: Linear opacities within the lingula and right lower lobe suggesting subsegmental atelectasis. Left lower lobe consolidation with air bronchograms, which could be related to atelectasis; however, pneumonia cannot be excluded. Pleura: Small left pleural effusion. There is no pneumothorax. Mediastinum: Mild cardiomegaly. No evidence of right heart strain. No significant coronary artery calcifications. No pericardial effusion. Thoracic Aorta: Normal caliber. No significant atherosclerotic calcification. No evidence of dissection. Lymph Nodes: Normal in size. Lower Neck: Normal. Chest Wall: Normal. Upper Abdomen: No acute abnormality. Scattered splenic calcified granulomas. Bones: Mild degenerative changes of the spine. Impression: 1. Negative study for pulmonary embolism. 2. Small left pleural effusion. Left lower lobe consolidation with air bronchograms, possibly related to atelectasis; however, pneumonia cannot be excluded. 3. Cardiomegaly. READING PHYSICIAN: Wilfred Roberts -[phone] 03/05/2024 7:32 [facility] National Teleradiology Program [phone] (For Medical Practitioner Use Only) Attention Patients / Veterans: If you have questions or concerns about these test results, please contact your ordering provider or primary care team. Primary Interpreting Staff: RADIOLOGY,OUTSIDE SERVICE, Staff Physician / RADIOLOGY,OUTSIDE SERVICE [facility] Mar 05, 2024 08:59 AM CHEST PORTABLE: JORDYN BAILEY [id number] -1985 M Exm Date: MAR 05, 2024@08:59 Req Phys: MUKESH MARINELLI Loc: -EMERGENCY DEPT 2ND SHIFT (R Img Loc: -MAIN RADIOLOGY SUITE Service: [address] [address] (Case [id number] COMPLETE) CHEST PORTABLE (RAD Detailed) CPT:42282 Proc Modifiers : Portable Reason for Study: chest pain Clinical History: Report Status: Verified Date Reported: MAR 05, 2024 Date Verified: MAR 05, 2024 Booster Pump Operator E-Sig: Report: CHEST PORTABLE Comparison: 05/20/2023, 02/12/2024 Clinical History: chest pain The study was performed and supervised at the local [place] facility, and subsequently transmitted to [facility] NTP (National Teleradiology Program) for interpretation. Impression: Lungs: Small left effusion with left basilar opacity which may represent atelectasis or consolidation.. Cardiomediastinal silhouette: No enlargement of the cardiomediastinal silhouette. Bones and soft tissues: No acute finding. READING PHYSICIAN: Sandeep Kraft M.D. -[id number] 03/05/2024 7:29 PST [facility] National Teleradiology Program [phone] (For Medical Practitioner Use Only) Attention Patients / Veterans: If you have questions or concerns about these test results, please contact your ordering provider or primary care team. Primary Interpreting Staff: RADIOLOGY,OUTSIDE SERVICE, Staff Physician / RADIOLOGY,OUTSIDE SERVICE [facility] Feb 12, 2024 02:[address] THORAX W/O CONT HIGH RES: JORDYN BAILEY ANTHONY [id number] -1985 [facility] Date: FEB 12, 2024@14:18 Req Phys: FLOYD WOO Loc: [facility] (Req'g Loc) Img Loc: [facility]-CT IMAGING Service: Unknown [facility] [address] [place] [address] (Case [id number] COMPLETE) CT THORAX W/O CONT HIGH RES (CT Detailed) CPT:19027 Reason for Study: chronic cough, exertional dyspnea, + hazardous exposure hx Clinical History: Responsible Attending: floyd woo PA-C Attending Contact Number: [phone] Resident Contact Number: Allergies listed in CPRS chart: SHELLFISH Creatinine: CREATININE 0.95 mg/dL 11/25/2023 11:00 /eGFR: STL EGFR (within one year). CREATININE 0.95 mg/dL (11/25/23 11:00) Wt: 218.3 lb [99.02 kg] (01/14/2024 08:55) History of: Renal failure, chronic or acute renal disease: NO Report Status: Verified Date Reported: FEB 15, 2024 Date Verified: FEB 15, 2024 Booster Pump Operator E-Sig:/ES/Lynn Castro MD Report: CASE #: [id number] DATE:02/12/2024 4:23 PM CLINICAL HISTORY:chronic cough, exertional [...] Primary Interpreting Staff: Lynn Castro MD, Radiologist (Booster Pump Operator) /LYNN ONEILL [facility] Jan 28, 2024 02:20 PM HAND,RIGHT,3 OR MORE VIEWS: LYNNJORDYN CRUZ [id number] -1985 M Exm Date: JAN 28, 2024@14:20 Req Phys: KODAK MORTON Loc: [facility] PACT B5 NEW PATIENT (Re Img Loc: [facility] RADIOLOGY SUITE Service: Unknown [address] [address] (Case [id number] COMPLETE) HAND,RIGHT,3 OR MORE VIEWS (RAD Detailed) CPT:28836 Proc Modifiers : RIGHT Reason for Study: right hand feell stiff and pain specialy in morning Clinical History: right hand feell stiff and pain specialy in morning Report Status: Verified Date Reported: JAN 29, 2024 Date Verified: JAN 29, 2024 Booster Pump Operator E-Sig:/TAVO ENCARNACION MD Report: Case #[id number]. Right hand examination. Finding: Three views of the right hand examination shows no fracture dislocation. No evidence of lytic or blastic bony lesion. No joint space narrowing or marginal erosion. No soft tissue swelling, radiopaque foreign body or abnormal calcification. Impression: No fracture dislocation or arthritic change. Primary Interpreting Staff: ART ENCARNACION MD, Staff Physician - Radiologist (Booster Pump Operator) /[facility] Jan 28, 2024 02:20 PM WRIST,RIGHT,3 OR MORE VIEWS: JORDYN BAILEY [id number] -1985 M Exm Date: JAN 28, 2024@14:20 Req Phys: KODAK MORTON Loc: [facility] PACT B5 NEW PATIENT (Re Img Loc: [facility] RADIOLOGY SUITE Service: Unknown [facility] [address] [place] [address] (Case [id number] COMPLETE) WRIST,RIGHT,3 OR MORE VIEWS (RAD Detailed) CPT:67864 Proc Modifiers : RIGHT Reason for Study: right writs pain Clinical History: c/o right wroist pain Report Status: Verified Date Reported: JAN 29, 2024 Date Verified: JAN 29, 2024 Booster Pump Operator E-Sig:/FRANCY/ART ENCARNACION MD Report: Case #[id number]. Right wrist [...] ART ENCARNACION MD, Staff Physician - Radiologist (Booster Pump Operator) /[facility] Jan 28, 2024 02:20 PM HAND,LEFT,3 OR MORE VIEWS: JORDYN BAILEY ANTHONY [id number] -1985 M Exm Date: JAN 28, 2024@14:20 Req Phys: KOADK MORTON Loc: [facility] PACT B5 NEW PATIENT (Re Img Loc: -[facility] RADIOLOGY SUITE Service: [facility], [address] [address] (Case [id number] COMPLETE) HAND,LEFT,3 OR MORE VIEWS (RAD Detailed) CPT:79258 Proc Modifiers : LEFT Reason for Study: left hand feell stiff and pain specialy in morning Clinical History: eft hand feell stiff and pain specialy in morning Report Status: Verified Date Reported: JAN 29, 2024 Date Verified: JAN 29, 2024 Booster Pump Operator E-Sig:/ES/ART ENCARNACION MD Report: Case #[id number]. Left hand examination. Finding: Three views of the left hand examination shows no fracture dislocation. No evidence of lytic or blastic bony lesion. No joint space narrowing or marginal erosion. No soft tissue swelling, radiopaque foreign body or abnormal calcification. Impression: No fracture dislocation or arthritic change. Primary Interpreting Staff: ART ENCARNACION MD, Staff Physician - Radiologist (Booster Pump Operator) /[facility] Jan 28, 2024 02:20 PM WRIST,LEFT, 3 OR MORE VIEWS: JORDYN BAILEY ANTHONY [id number] -1985 M Exm Date: JAN 28, 2024@14:20 Req Phys: KODAK MORTON Loc: [facility] PACT B5 NEW PATIENT (Re Img Loc: -MAIN RADIOLOGY SUITE Service: Unknown [address] [address] (Case [id number] COMPLETE) WRIST,LEFT, 3 OR MORE VIEWS (RAD Detailed) CPT:85634 Proc Modifiers : LEFT Reason for Study: c/o left wrist pain Clinical History: c/o left wrist pain Report Status: Verified Date Reported: JAN 29, 2024 Date Verified: JAN 29, 2024 Booster Pump Operator E-Sig:/ES/ART ENCARNACION MD Report: Case #[id number]. Left [...] ART ENCARNACION MD, Staff Physician - Radiologist (Booster Pump Operator) /[facility] Jan 09, 2024 12:[address] CERVICAL SPINE W/O CONT: JORDYN BAILEY [id number] -1985 M Exm Date: JAN 09, 2024@12:18 Req Phys: BING ORTIZ Loc: -EMERGENCY DEPT 2ND SHIFT (R Img Loc: -CT IMAGING Service: Unknown [address] [address] (Case [id number] COMPLETE) CT CERVICAL SPINE W/O CONT (CT Detailed) CPT:81604 Reason for Study: Neck pain, bilateral arm pain/weakness Clinical History: Responsible Attending: Yovany Attending Contact Number: [phone] Resident Contact Number: Neck pain, bilateral arm pain/weakness Allergies listed in CPRS chart: SHELLFISH Creatinine/eGFR: STL EGFR (within one year). CREATININE 0.95 mg/dL (11/25/23 11:00) Wt: 220.4 lb [99.97 kg] (11/25/2023 10:03) History of: Renal failure, chronic or acute renal disease: NO Report Status: Verified Date Reported: JAN 09, 2024 Date Verified: JAN 09, 2024 Booster Pump Operator E-Sig: Report: CT CERVICAL SPINE W/O CONT Clinical History: Neck pain, bilateral arm pain/weakness Comparison: No priors available Technique: Noncontrast CT of the cervical spine was performed. The study was protocoled and supervised at the local [place] facility. 1116 images were subsequently received by the [place] National Teleradiology Program (NTP) for interpretation. Total [...] dedicated MRI. READING PHYSICIAN: Ifrah Guzmán M.D. -[id number] 01/09/2024 11:23 [facility] National Teleradiology Program [phone] (For Medical Practitioner Use Only) Attention Patients / Veterans: If you have questions or concerns about these test results, please contact your ordering provider or primary care team. Primary Interpreting Staff: RADIOLOGY,OUTSIDE SERVICE, Staff Physician / RADIOLOGY,OUTSIDE SERVICE [facility]
--- OUTSIDE RECORDS SUMMARY | 2024-03-31 01:06 | XMS_ITS | Encounter Summary ---
Author Name [facility] [facility] [place] Address [address] [place] [address] Care Team Providers Care Family Medicine Chair Name Role Phone KODAK MORTON Primary Care [...] CHOIC E PREFE RR Apr 13, 2020 [id number] [phone] BOOGIE BAILEY ANDON PATIENT ANTHEM [employer] [place] PREFERRED PROVIDER ORGANIZAT ION (PPO) BLUE CHOIC E PREFE RR Apr 13, 2020 [id number] [phone] BOOGIE BAILEY ANDON PATIENT ANTHEM [employer] [place] PREFERRED PROVIDER ORGANIZAT ION (PPO) BLUE CHOIC E PREFE RR Apr 13, 2020 [id number] [phone] BOOGIE BAILEY ANDCARLA PATIENT [employer] [place] PREFERRED PROVIDER ORGANIZAT ION (PPO) BLUE CHOIC E PREFE RR Apr 13, 2020 [id number] [phone] BOOGIE BAILEY PATIENT PRIME THERAPEUTI CS RX PRESCRIPT ION [employer] L [place] Apr 13, 2020 BCBSIL [id number] [phone] BOOGIE BAILEY PATIENT [facility] [address] [place] May 10, 2019 SELECT [id number] BOOGIE BAILEY PATIENT Selected Encounter This section includes the information on record at [place] for the Encounter. Date/Time Encounter Type Encounter Description Reason Provider Source Jan 28, 2024 01:45 PM SPEECH/HEARING THERAPY SPEECH-LANGUAGE PATHOLOGY ICD-10-CM R49.8 Other voice and resonance disorders CRISTELA WORLEY [facility] Encounter Template Text not used by [place] Assessments - Encounter Diagnoses This section includes the primary and secondary diagnoses documented for the Encounter. Date/Time Primary/Secondary Diagnosis Diagnosis Name Provider Source Jan 28, 2024 02:57 PM PRIMARY Other voice and resonance disorders CRISTELA WORLEY [facility] Plan of Treatment: [...] 20 appointments. The data comes from all [place] treatment facilities. Appointment Date/Time Appointment Type Appointme nt Facility Name Feb 02, 2024 02:00 PM AMBULATORY - PSYCHIATRY [facility] Feb 08, 2024 09:00 AM AMBULATORY - NEUROLOGY [facility] Feb 12, 2024 02:30 PM AMBULATORY - NONE [facility] Feb 17, 2024 01:00 PM AMBULATORY - MEDICINE [facility] Feb 25, 2024 09:30 AM AMBULATORY - MEDICINE [facility] Mar 05, 2024 08:43 AM AMBULATORY - MEDICINE [facility] Mar 16, 2024 10:15 AM AMBULATORY - SURGERY [facility] Mar 21, 2024 12:14 PM AMBULATORY - MEDICINE [facility] Apr 01, 2024 10:00 AM AMBULATORY - PSYCHIATRY [facility] Apr 28, 2024 03:00 PM AMBULATORY - MEDICINE [facility] May 05, 2024 11:30 AM AMBULATORY - MEDICINE [facility] May 27, 2024 11:00 AM AMBULATORY - MEDICINE [facility] Active, Pending, and Scheduled Orders This section includes a listing of several types of active, pending, and scheduled orders, including clinic medications orders, diagnostic test orders, procedure orders and consult orders; where the start date of the order is 45 days before the date of the Encounter or 45 days after the date of theEncounter. The data comes from all [place] treatment facilities. Test Date/Time Test Type Test Details Facility Name Jan 26, 2024 02:11 PM Consult Order RHEUMATOLO GY OUTPATIENT [facility] Feb 17, 2024 01:16 PM Consult Order PLASTIC SHELLEY RGERY OUTPT [facility] Lab Results: +/- 30 days of the encounter This section includes the Chemistry and Hematology Lab Results on record with [place] for the patient. Radiology Reports and Pathology Reports are provided separately, in subsequent sections. Lab Results This section contains the Chemistry/Hematology Results that were resulted 30 days before or 30 daysafter the date of the Encounter. Date/Time Source Result Type Result - Unit Interpretation Reference Range Comment Jan 26, 2024 02:47 PM [facility] CRP Specimen Type: PLASMA No comment entered. Ordering Provider: FRANSISCO MORTON Report Released Date/Time: Jan 26, 2024 02:11 PM Reporting Lab: [facility] [address] [phone] Performing Lab: [facility] [address] [address] CRP 0.6 mg/dL H 0-0.5 Jan 26, 2024 02:47 PM [facility] ESR ISED(STL) Specimen Type: BLOOD No comment entered. Ordering Provider: FRANSISCO MORTON Report Released Date/Time: Jan 26, 2024 02:11 PM Reporting Lab: [facility] [address] [phone] Performing Lab: [facility] [address] [address] ESR ISED(STL) 35 mm/h H 0-14 Jan 26, 2024 02:47 PM [facility] RHEUMATOID FACTOR (STL) Specimen Type: SERUM No comment entered. Ordering Provider: FRANSISCO MORTON Report Released Date/Time: Jan 26, 2024 02:19 PM Reporting Lab: [facility] [address] [address] Performing Lab: [facility] [address] [phone] RHEUMATOID FACTOR (STL) <15.0 0-29 Social History: [...] 03:59 PM VA-TOBACCO NEVER USED [facility] Radiology Reports: +/- 30 days of the [...] the Encounter. The data comes from all [place] treatment facilities. Date/Time Radiology Report Provider Source Feb 12, 2024 02:[address] THORAX W/O CONT HIGH RES: JORDYN BAILEY [id number] -1985 M Exm Date: FEB 12, 2024@14:18 Req Phys: FLOYD WOO Loc: [facility]PULM PA 1 (Req'g Loc) Img Loc: [facility]-CT IMAGING [facility] Service: [facility], [place], operated [facility] [address] [place] [address] (Case [id number] COMPLETE) CT THORAX W/O CONT HIGH RES (CT Detailed) CPT:85187 Reason for Study: chronic cough, exertional dyspnea, + hazardous exposure hx Clinical History: Responsible Attending: floyd woo PA-C Attending Contact Number: [phone] Resident Contact Number: Allergies listed in CPRS chart: SHELLFISH Creatinine: CREATININE 0.95 mg/dL 11/25/2023 11:00 /eGFR: STL EGFR (within one year). CREATININE 0.95 mg/dL (11/25/23 11:00) Wt: 218.3 lb [99.02 kg] (01/14/2024 08:55) History of: Renal failure, chronic or acute renal disease: NO Report Status: Verified Date Reported: FEB 15, 2024 Date Verified: FEB 15, 2024 Rail Grinder E-Sig:/ES/Lynn Castro MD Report: CASE #: [id number] DATE:02/12/2024 4:23 PM CLINICAL HISTORY:chronic cough, exertional [...] Primary Interpreting Staff: Lynn Castro MD, Radiologist (Rail Grinder) /LYNN ONEILL [facility] Jan 28, 2024 02:20 PM HAND,RIGHT,3 OR [place] RE VIEWS: JORDYN BAILEY [id number] -1985 M Ex Date: JAN 28, 2024@14:20 Req Phys: KODAK MORTON Loc: [facility] PACT B5 NEW PATIENT (Re Img Loc: -MAIN RADIOLOGY SUITE Service: [address] [address] (Case [id number] COMPLETE) HAND,RIGHT,3 OR MORE VIEWS (RAD Detailed) CPT:70635 Proc Modifiers : RIGHT Reason for Study: right hand feell stiff and pain specialy in morning Clinical History: right hand feell stiff and pain specialy in morning Report Status: Verified Date Reported: JAN 29, 2024 Date Verified: JAN 29, 2024 Rail Grinder E-Sig:/ES/ART ENCARNACION MD Report: Case #[id number]. Right hand examination. Finding: Three views of the right hand examination shows no fracture dislocation. No evidence of lytic or blastic bony lesion. No joint space narrowing or marginal erosion. No soft tissue swelling, radiopaque foreign body or abnormal calcification. Impression: No fracture dislocation or arthritic change. Primary Interpreting Staff: ART ENCARNACION MD, Staff Physician - Radiologist (Rail Grinder) /ART ANDRADE [facility] Jan 28, 2024 02:20 PM WRIST,RIGHT,3 OR M ORE VIEWS: JORDYN BAILEY [id number] -1985 M Exm Date: JAN 28, 2024@14:20 Req Phys: KODAK MORTON Loc: [facility] PACT B5 NEW PATIENT (Re Img Loc: -[facility] RADIOLOGY SUITE Service: [facility] [place], [facility] [address] [place] [address] (Case [id number] COMPLETE) WRIST,RIGHT,3 OR MORE VIEWS (RAD Detailed) CPT:98054 Proc Modifiers : RIGHT Reason for Study: right writs pain Clinical History: c/o right wroist pain Report Status: Verified Date Reported: JAN 29, 2024 Date Verified: JAN 29, 2024 Rail Grinder E-Sig:/NATALIIA/ART ENCARNACION MD Report: Case #[id number]. Right [...] ART ENCARNACION MD, Staff Physician - Radiologist (Rail Grinder) /ART ANDRADE [facility] Jan 28, 2024 02:20 PM HAND,LEFT,3 OR MOR E VIEWS: JORDYN BAILEY [id number] -1985 M Exm Date: JAN 28, 2024@14:20 Req Phys: KODAK MORTON Loc: [facility] PACT B5 NEW PATIENT (Re Img Loc: [facility] RADIOLOGY SUITE Service: Unknown [address] [address] (Case [id number] COMPLETE) HAND,LEFT,3 OR MORE VIEWS (RAD Detailed) CPT:08021 Proc Modifiers : LEFT Reason for Study: left hand feell stiff and pain specialy in morning Clinical History: eft hand feell stiff and pain specialy in morning Report Status: Verified Date Reported: JAN 29, 2024 Date Verified: JAN 29, 2024 Rail Grinder E-Sig:/TAVO ENCARNACION MD Report: Case #[id number]. Left hand examination. Finding: Three views of the left hand examination shows no fracture dislocation. No evidence of lytic or blastic bony lesion. No joint space narrowing or marginal erosion. No soft tissue swelling, radiopaque foreign body or abnormal calcification. Impression: No fracture dislocation or arthritic change. Primary Interpreting Staff: ART ENCARNACION MD, Staff Physician - Radiologist (Rail Grinder) /ART ANDRADE [facility] Jan 28, 2024 02:20 PM WRIST,LEFT, 3 OR M ORE VIEWS: JORDYN BAILEY [id number] -1985 M Exm Date: JAN 28, 2024@14:20 Req Phys: KODAK MORTON Loc: [facility] PACT B5 NEW PATIENT (Re Img Loc: [facility] RADIOLOGY SUITE Service: Unknown [address] [address] (Case [id number] COMPLETE) WRIST,LEFT, 3 OR MORE VIEWS (RAD Detailed) CPT:76849 Proc Modifiers : LEFT Reason for Study: c/o left wrist pain Clinical History: c/o left wrist pain Report Status: Verified Date Reported: JAN 29, 2024 Date Verified: JAN 29, 2024 Rail Grinder E-Sig:/TAVO ENCARNACION MD Report: Case #[id number]. Left wrist [...] ART ENCARNACION MD, Staff Physician - Radiologist (Rail Grinder) /ART ANDRADE [facility] Jan 09, 2024 12:[address] CERVICAL SPINE W/O CONT: JORDYN BAILEY [id number] -1985 M Exm Date: JAN 09, 2024@12:18 Req Phys: BING ORTIZ Loc: [facility]-EMERGENCY DEPT 2ND SHIFT (R Img Loc: [facility] IMAG[facility] Service: [address] [address] (Case [id number] COMPLETE) CT CERVICAL SPINE W/O CONT (CT Detailed) CPT:84491 Reason for Study: Neck pain, bilateral arm pain/weakness Clinical History: Responsible Attending: Yovany Attending Contact Number: [id number] Resident Contact Number: Neck pain, bilateral arm pain/weakness Allergies listed in CPRS chart: SHELLFISH Creatinine/eGFR: STL EGFR (within one year). CREATININE 0.95 mg/dL (11/25/23 11:00) Wt: 220.4 lb [99.97 kg] (11/25/2023 10:03) History of: Renal failure, chronic or acute renal disease: NO Report Status: Verified Date Reported: JAN 09, 2024 Date Verified: JAN 09, 2024 Rail Grinder E-Sig: Report: CT CERVICAL SPINE W/O CONT Clinical History: Neck pain, bilateral arm pain/weakness Comparison: No priors available Technique: Noncontrast CT of the cervical spine was performed. The study was protocoled and supervised at the local [place] facility. 1116 images were subsequently received by the [place] National Teleradiology Program (NTP) for interpretation. Total [...] dedicated MRI. READING PHYSICIAN: Ifrah Guzmán M.D. -[id number] 01/09/2024 11:23 PDT [facility] National Teleradiology Program [phone] (For Medical Practitioner Use Only) Attention Patients / Veterans: If you have questions or concerns about these test results, please contact your ordering provider or primary care team. Primary Interpreting Staff: RADIOLOGY,OUTSIDE SERVICE, Staff Physician / RADIOLOGY,OUTSIDE SERVICE [facility] Encounter Notes: All associated encounter notes This section contains the clinical notes associated to the Encounter. Date/Time Encounter Note(s) Provider Source Jan 28, 2024 02:19 PM SPEECH PATHOLOGY C ONSULT: LOCAL TITLE: SPEECH CONSULT STL STANDARD TITLE: SPEECH PATHOLOGY CONSULT DATE OF NOTE: JAN 28, 2024@14:19 ENTRY DATE: JAN 28, 2024@14:19:25 AUTHOR: CRISTELA WORLEY COSIGNER: FLOYD WOO URGENCY: STATUS: COMPLETED SPEECH PATHOLOGY VIDEOLARYNGOSCOPY NAME: JORDYN BAILEY DATE:JAN 28, 2024 PURPOSE OF VISIT: video laryngoscopy DIAGNOSIS: Other voice disturbance RELEVANT HISTORY: Patient with concern for chronic cough. PATIENT STATED GOAL: none CONSENT: Patient consented to treatment plan. TRACH STATUS: NO SCOPE: _X_Olympus Flexible ____Olympus Rigid PROCEDURE: The scope was inserted after application of Lidocaine spray topical anesthesia, the exam completed, and the scope withdrawn without difficulty or complaint. PREVIOUS EXAMS: n/a CURRENT APPEARANCE: TVCs were smooth/even in color and appearance. Airway was widely patent. BOT, epiglottis, and arytenoids were clear. CURRENT FUNCTION: TVCs were mobile, met at midline for phonation, and presented with full adduction and abduction. Mucosal wave was present and symmetric. Voice quality is WNL. EDUCATION: ELECTROTYPE MOLDER educated patient on results of video laryngoscopy. Patient stated verbal understanding. * SPEECH PATHOLOGY THERAPY NOTE NAME: JORDYN BAILEY DATE/LENGTH: 01/28/24 13:45 DIAGNOSIS: chronic cough PURPOSE OF VISIT: cough suppression therapy BEHAVIORAL COUGH SUPPRESSION THERAPY Education provided: A. Explained the lack of physiological benefit from repeated coughing. ---Cessation of voluntary coughing with aim of clearing a nonexistent obstruction B. Discussed the negative side effects of repeated coughing --- Laryngeal trauma, exacerbation of irritation, perpetuation of cough cycle C. Discussed the goal of behavioral management ---Suppress the cough even when there is a sensation of needing to cough, capacity for cough to be brought under voluntary control COUGH SUPPRESSION: A. Suppress or delay the cough at the first sign of irritation ---Pursed lip breathing, relaxed throat breathing, Valsalva swallow, replace cough with a swallow, distraction (i.e. drink water, suck ice, chew gum, attempt to delay cough, suck non-medicated lollies to increase the frequency of saliva swallows) VOCAL HYGIENE: A. Reduce laryngeal irritation ---Avoid smoking and exposure to passive smoke, avoid mouth breathing, minimize consumption of substances known to have a drying effect on the vocal folds such as alcohol, caffeine and medicated lozenges, behavioral management of reflux B. Hydration strategies ---Increase volume and frequency of water intake, steam inhalation, sucking nonmedication lozenges (increased saliva results in more frequent swallowing which can reduce irritation) VOICE THERAPY: A. Optimize vocal fold closure, optimize resonance, reduce supraglottic constriction, reduce vocal fold hyperadduction ---Resonant voice therapy, vocal function exercises, release of laryngeal constriction PSYCHOEDUCATIONAL COUNSELING: A. Setting realistic goals, establishing appropriate timeframes, internalizing locus of control promoting self-efficacy, motivation PATIENT HANDOUT BREATHING/RELAXATION EXERCISES FOR VOCAL CORD DYSFUNCTION 1. Close lips and Inhalation through the nose with lips pursed 2. Relaxed tongue posture 3. Prolonged audible exhalation through pursed lips and production of /s/ or /sh/ or through a straw. 4. Diaphragmatic breathing with emphasis on exhalation 5. Focus on total body relaxation and controlled breathing QUIET RHYTHMIC BREATHING: Exhaling with shoulders relaxed, abdominal movement in/out consistent with continuous inhalation and exhalation VALSALVA: Take a breath in, pinch nose and close mouth, exhale forcefully (bear down as if having a bowel movement) while not letting air escape for 5-10 seconds, then open mouth and release air. Strategies to reduce laryngeal irritation: ---Avoid smoking and exposure to passive smoke, avoid mouth breathing, minimize consumption of substances known to have a drying effect on the vocal folds such as alcohol, caffeine and medicated lozenges, behavioral management of reflux ALTERATIONS TO TREATMENT PLAN: n/a OUTCOMES: Patient demonstrated understanding of all the education and training this session. He was able to demonstrate correct performance of the techniques. He reported he is willing to attempt treatment in effort to reduce cough. GOALS: 1. Patient will report reduction of chronic cough/PVFM symptoms through implementation of strategies. PLAN: Follow-up with patient in 4 weeks. /nataliia/ Cristela Worley MS, CCC-ELECTROTYPE MOLDER Speech Pathologist, Speech Language Pathology Signed: 01/28/2024 14:58 /nataliia/ FLOYD WOO PHYSICIAN TOOLER Cosigned: 01/29/2024 12:56 CRISTELA WORLEY [facility]
--- OUTSIDE RECORDS SUMMARY | 2024-03-31 01:06 | XMS_ITS | Encounter Summary ---
Author Name [facility] [facility] [place] Address [address] [place] [address] Care Team Providers Care Industrial Electrical Technician Name Role Phone KODAK MORTON Primary [...] CHOIC E PREFE RR Apr 13, 2020 [id number] [phone] BOOGIE BAILEY PATIENT ANTHEM [employer] [place] PREFERRED PROVIDER ORGANIZAT ION (PPO) BLUE CHOIC E PREFE RR Apr 13, 2020 [id number] [phone] STEPHANIE BAILEYON PATIENT AN[employer] [employer] [place] PREFERRED PROVIDER ORGANIZAT ION (PPO) BLUE CHOIC E PREFE RR Apr 13, 2020 [id number] [phone] BOOGIE BAILEY PATIENT [employer] [place] PREFERRED PROVIDER ORGANIZAT ION (PPO) BLUE CHOIC E PREFE RR Apr 13, 2020 [id number] [phone] BOOGIE BAILEY PATIENT PRIME THERAPEUTI CS RX PRESCRIPT ION [employer] L [place] Apr 13, 2020 [id number] [phone] BOOGIE BAILEY PATIENT [facility] [place] May 10, 2019 SELECT [id number] BOOGIE BAILEY PATIENT Selected Encounter This section includes the information on record at [place] for the Encounter. Date/Time Encounter Type Encounter Description Reason Provider Source Feb 01, 2024 01:59 PM Outpatient Encounter RHEUMATOLOGY/ARTHRIT IS KHURRAM LUNDBERG Encounter Template Text not used by [place] [...] 08, 2024 09:00 AM AMBULATORY - NEUROLOGY [facility] Feb 12, 2024 02:30 PM AMBULATORY - NONE [facility] Feb 17, 2024 01:00 PM AMBULATORY - MEDICINE [facility] Feb 25, 2024 09:30 AM AMBULATORY - MEDICINE [facility] Mar 05, 2024 08:43 AM AMBULATORY - MEDICINE [facility] Mar 16, 2024 10:15 AM AMBULATORY - SURGERY [facility] Mar 21, 2024 12:14 PM AMBULATORY - MEDICINE [facility] Apr 01, 2024 10:00 AM AMBULATORY - PSYCHIATRY [facility] Apr 28, 2024 03:00 PM AMBULATORY - MEDICINE [facility] May 05, 2024 11:30 AM AMBULATORY - MEDICINE [facility] May 27, 2024 11:00 AM AMBULATORY - MEDICINE [facility] Active, Pending, and Scheduled Orders This section [...] 02:11 PM Consult Order RHEUMATOLO GY OUTPATIENT [facility] Feb 17, 2024 01:16 PM Consult Order PLASTIC [facility] RGERY OUTPT [facility] Mar 16, 2024 10:22 AM Consult Order [facility] PLASTIC SURG Cons Telesales Team Leader'[facility] Lab Results: +/- 30 days of [...] Comment Jan 26, 2024 02:47 PM [facility] CRP Specimen Type: PLASMA No comment entered. Ordering Provider: FRANSISCO MORTON Report Released Date/Time: Jan 26, 2024 02:11 PM Reporting Lab: [facility] [address] [facility] [address] Performing Lab: [facility] [address] [facility] [address] CRP 0.6 mg/dL H 0-0.5 Jan 26, 2024 02:47 PM [facility] ESR ISED(STL) Specimen Type: BLOOD No comment entered. Ordering Provider: FRANSISCO MORTON Report Released Date/Time: Jan 26, 2024 02:11 PM Reporting Lab: [facility] [address] [facility] [address] Performing Lab: [facility] [address] [facility] [address] ESR ISED(STL) 35 mm/h H 0-14 Jan 26, 2024 02:47 PM [facility] RHEUMATOID FACTOR (STL) Specimen Type: SERUM No comment entered. Ordering Provider: FRANSISCO MORTON Report Released Date/Time: Jan 26, 2024 02:19 PM Reporting Lab: [facility] [address] [facility] [address] Performing Lab: [facility] [address] [facility] [address] RHEUMATOID FACTOR (STL) <15.0 0-29 Social History: [...] 2021 03:59 PM VA-TOBACCO NEVER USED [facility] Radiology Reports: +/- 30 days [...] THORAX W/O CONT HIGH RES: JORDYN BAILEY [id number] -1985 M Exm Date: FEB 12, 2024@14:18 Req Phys: FLOYD WOO Loc: [facility]PULM [facility] 1 (Req'g Loc) Img Loc: [facility]CT IMAGING [facility] Service: [facility] [address] [place] [address] (Case [id number] COMPLETE) CT THORAX W/O CONT HIGH RES (CT Detailed) CPT:77114 Reason for Study: chronic cough, exertional dyspnea, + hazardous exposure hx Clinical History: Responsible Attending: floyd woo PA-C Attending Contact Number: [phone] Resident Contact Number: Allergies listed in CPRS chart: SHELLFISH Creatinine: CREATININE 0.95 mg/dL 11/25/2023 11:00 /eGFR: STL EGFR (within one year). CREATININE 0.95 mg/dL (11/25/23 11:00) Wt: 218.3 lb [99.02 kg] (01/14/2024 08:55) History of: Renal failure, chronic or acute renal disease: NO Report Status: Verified Date Reported: FEB 15, 2024 Date Verified: FEB 15, 2024 Industrial Controller E-Sig:/ES/yLnn Castro MD Report: CASE #: [id number] DATE:02/12/2024 4:23 PM CLINICAL HISTORY:chronic cough, exertional [...] Primary Interpreting Staff: Lynn Castro MD, Radiologist (Industrial Controller) /LYNN ONEILL [facility] Jan 28, 2024 02:20 PM HAND,RIGHT,3 OR MO RE VIEWS: JORDYN BAILEY [id number] -1985 M Exm Date: JAN 28, 2024@14:20 Req Phys: KODAK MORTON Pat Loc: [facility] PACT B5 NEW PATIENT (Re Img Loc: -[facility] SUITE Service: Unknown [facility], [facility] [address] [place] [address] (Case [id number] COMPLETE) HAND,RIGHT,3 OR MORE VIEWS (RAD Detailed) CPT:89220 Proc Modifiers : RIGHT Reason for Study: right hand feell stiff and pain specialy in morning Clinical History: right hand feell stiff and pain specialy in morning Report Status: Verified Date Reported: JAN 29, 2024 Date Verified: JAN 29, 2024 Industrial Controller E-Sig:/NATALIIA/ART ENCARNACION MD Report: Case #[id number]. Right hand examination. Finding: Three views of the right hand examination shows no fracture dislocation. No evidence of lytic or blastic bony lesion. No joint space narrowing or marginal erosion. No soft tissue swelling, radiopaque foreign body or abnormal calcification. Impression: No fracture dislocation or arthritic change. Primary Interpreting Staff: ART ENCARNACION MD, Staff Physician - Radiologist (Industrial Controller) /GUNJAN ANDRADEVINNIE [facility] Jan 28, 2024 02:20 PM WRIST,RIGHT,3 OR M ORE VIEWS: JORDYN BAILEY [id number] -1985 M Exm Date: JAN 28, 2024@14:20 Req Phys: KODAK MORTON Pat Loc: [facility] PACT B5 NEW PATIENT (Re Img Loc: -[facility] SUITE Service: [facility], [facility] [address] [place] [address] (Case [id number] COMPLETE) WRIST,RIGHT,3 OR MORE VIEWS (RAD Detailed) CPT:30953 Proc Modifiers : RIGHT Reason for Study: right writs pain Clinical History: c/o right wroist pain Report Status: Verified Date Reported: JAN 29, 2024 Date Verified: JAN 29, 2024 Industrial Controller E-Sig:/ES/ART ENCARNACION MD Report: Case #[id number]. Right [...] ART ENCARNACION MD, Staff Physician - Radiologist (Industrial Controller) /ART ANDRADE [facility] Jan 28, 2024 02:20 PM HAND,LEFT,3 OR MOR E VIEWS: JORDYN BAILEY [id number] -1985 M Exm Date: JAN 28, 2024@14:20 Req Phys: KODAK MORTON Pat Loc: [facility] PACT B5 NEW PATIENT (Re Img Loc: [facility] SUITE Service: Unknown [facility] [address] [place] [address] (Case [id number] COMPLETE) HAND,LEFT,3 OR MORE VIEWS (RAD Detailed) CPT:95062 Proc Modifiers : LEFT Reason for Study: left hand feell stiff and pain specialy in morning Clinical History: eft hand feell stiff and pain specialy in morning Report Status: Verified Date Reported: JAN 29, 2024 Date Verified: JAN 29, 2024 Industrial Controller E-Sig:/NATALIIA/ART ENCARNACION MD Report: Case #[id number]. Left hand examination. Finding: Three views of the left hand examination shows no fracture dislocation. No evidence of lytic or blastic bony lesion. No joint space narrowing or marginal erosion. No soft tissue swelling, radiopaque foreign body or abnormal calcification. Impression: No fracture dislocation or arthritic change. Primary Interpreting Staff: ART ENCARNACION MD, Staff Physician - Radiologist (Industrial Controller) /ART ANDRADE [facility] Jan 28, 2024 02:20 PM WRIST,LEFT, 3 OR M ORE VIEWS: LYNNLISAJORDYN ANTHONY [id number] -1985 M Exm Date: JAN 28, 2024@14:20 Req Phys: KODAK MORTON Loc: [facility] PACT B5 NEW PATIENT (Re Img Loc: [facility] SUITE Service: Unknown [facility] [address] [place] [address] (Case [id number] COMPLETE) WRIST,LEFT, 3 OR MORE VIEWS (RAD Detailed) CPT:67274 Proc Modifiers : LEFT Reason for Study: c/o left wrist pain Clinical History: c/o left wrist pain Report Status: Verified Date Reported: JAN 29, 2024 Date Verified: JAN 29, 2024 Industrial Controller E-Sig:/TAVO ENCARNACION MD Report: Case #[id number]. Left [...] ART ENCARNACION MD, Staff Physician - Radiologist (Industrial Controller) /ART ANDRADE [facility] Jan 09, 2024 12:[address] CERVICAL SPINE W/O CONT: JORDYN BAILEY [id number] -1985 M Exm Date: JAN 09, 2024@12:18 Req Phys: BING ORTIZ Loc: [facility]EMERGENCY DEPT 2ND SHIFT (R Img Loc: [facility] IMAG[facility] Service: [address] [address] (Case [id number] COMPLETE) CT CERVICAL SPINE W/O CONT (CT Detailed) CPT:98711 Reason for Study: Neck pain, bilateral arm pain/weakness Clinical History: Responsible Attending: Yovany Attending Contact Number: [id number] Resident Contact Number: Neck pain, bilateral arm pain/weakness Allergies listed in CPRS chart: SHELLFISH Creatinine/eGFR: STL EGFR (within one year). CREATININE 0.95 mg/dL (11/25/23 11:00) Wt: 220.4 lb [99.97 kg] (11/25/2023 10:03) History of: Renal failure, chronic or acute renal disease: NO Report Status: Verified Date Reported: JAN 09, 2024 Date Verified: JAN 09, 2024 Industrial Controller E-Sig: Report: CT CERVICAL SPINE W/O CONT [...] dedicated MRI. READING PHYSICIAN: Ifrah Guzmán M.D. -[id number] 01/09/2024 11:23 PDT [facility] National Teleradiology Program [phone] (For Medical Practitioner Use Only) Attention Patients / Veterans: If you have questions or concerns about these test results, please contact your ordering provider or primary care team. Primary Interpreting Staff: RADIOLOGY,OUTSIDE SERVICE, Staff Physician / RADIOLOGY,OUTSIDE SERVICE [facility] Encounter Notes: All associated encounter notes This section contains the clinical notes associated to the Encounter. Date/Time Encounter Note(s) Provider Source Feb 02, 2024 09:24 AM [facility]Way DIALOG NOTE: LOCAL TITLE: SECURE MESSAGING STANDARD TITLE: nWay DIALOG NOTE DATE OF NOTE: FEB 02, 2024@09:24 ENTRY DATE: FEB 02, 2024@08:24:39 AUTHOR: KHURRAM LUNDBERG EXP COSIGNER: URGENCY: STATUS: COMPLETED ------Original Message --- Sent: 02/01/2024 02:57 PM ET From: JORDYN BAILEY To: ST, RHEUMATOLOGY, SPECIALTY MEDICINE @ Subject: General:Rheumatology Consult Thank you, during the day i am in my office and my cell phone doesnt get good engine emission technician. Is there a number for the lathe operator contact lens i can call incase i miss them again?? ------Original Message --- Sent: 02/02/2024 09:24 AM ET From: KHURRAM LUNDBERG To: JORDYN BAILEY Subject: General:Rheumatology Consult To make, change, or cancel an appointment for the Rheumatology phone number is [phone], extension [phone] OPTION 3 to speak with lathe operator contact lens regarding making an appointment. Khurram Lundberg BSN, RN /nataliia/ Khurram Lundberg REGISTERED NURSE Signed: 02/02/2024 08:24 KHURRAM LUNDBERG [facility] Feb 01, 2024 01:59 PM [facility] DIALOG NOTE: LOCAL TITLE: SECURE MESSAGING STANDARD TITLE: nWay DIALOG NOTE DATE OF NOTE: FEB 01, 2024@13:59 ENTRY DATE: FEB 01, 2024@12:59:58 AUTHOR: KHURRAM LUNDBERG EXP COSIGNER: URGENCY: STATUS: COMPLETED ------Original Message --- Sent: 02/01/2024 11:57 AM ET From: JORDYN BAILEY To: [facility], RHEUMATOLOGY, SPECIALTY MEDICINE @ Subject: General:Rheumatology Consult Wilder, My PCM put in a referral for Rheumatology and am wanting to get an appointment scheduled. I tried to call [phone] ext [phone] but it goes straight to [facility]. Could i get a call from your clinic soon for this? An alternate number is [phone] my cell does not work well in my office during the day. Thank you! ------Original Message --- Sent: 02/01/2024 01:59 PM ET From: KHURRAM LUNDBERG To: JORDYN BAILEY Subject: General:Rheumatology Consult I forwarded your information on to the Rheumatology lathe operator contact lens. They have been trying to contact you via phone and letter. Thanks for messaging back. They should be trying to get in contact with you again. Khurram Lundberg BSN, RN /nataliia/ Khurram Lundberg REGISTERED NURSE Signed: 02/01/2024 12:59 KHURRAM LUNDBERG [facility]
--- OUTSIDE RECORDS SUMMARY | 2024-03-31 01:06 | XMS_ITS ---
Author Name [facility] [facility] [place] [facility] [facility] [place] Address [address] [place] [address] Care Team Providers Care Pricing Consultant Name Role Phone KODAK MORTON Primary [...] CHOIC E PREFE RR Apr 13, 2020 [id number] [phone] BOOGIE PINEDA ANDON PATIENT ANTHE[place] [employer] [place] PREFERRED PROVIDER ORGANIZAT ION (PPO) BLUE CHOIC E PREFE RR Apr 13, 2020 [id number] [phone] LYNN,BOOGIE ANDON PATIENT [employer] [employer] [place] PREFERRED PROVIDER ORGANIZAT ION (PPO) BLUE CHOIC E PREFE RR Apr 13, 2020 [id number] BOOGIE PINEDA ANDON PATIENT [employer] [place] PREFERRED PROVIDER ORGANIZAT ION (PPO) BLUE CHOIC E PREFE RR Apr 13, 2020 [id number] BOOGIE PINEDA PATIENT PRIME THERAPEUTI CS RX PRESCRIPT ION [employer] L [place] Apr 13, 2020 [id number] [phone] BOOGIE PINEDA PATIENT [facility] 2018 TRICA RE May 10, 2019 SELECT [id number] BOOGIE PINEDA PATIENT Selected Encounter This section includes the information on record at [place] for the Encounter. Date/Time Encounter Type Encounter Description Reason Provider Source Feb 02, 2024 01:51 PM Outpatient Encounter ADMIN PAT ACTIVTIES (MASNONCT) KODAK MORTON IHValentin Encounter Template Text not used by [place] [...] AM AMBULATORY - NEUROLOGY [facility] Feb 12, 2024 02:30 PM AMBULATORY - NONE [facility] Feb 17, 2024 01:00 PM AMBULATORY - MEDICINE [facility] Feb 25, 2024 09:30 AM AMBULATORY - MEDICINE [facility] Mar 05, 2024 08:43 AM AMBULATORY - MEDICINE [facility] Mar 16, 2024 10:15 AM AMBULATORY - SURGERY [facility] Mar 21, 2024 12:14 PM AMBULATORY - MEDICINE [facility] Apr 01, 2024 10:00 AM AMBULATORY - PSYCHIATRY [facility] Apr 28, 2024 03:00 PM AMBULATORY - MEDICINE [facility] May 05, 2024 11:30 AM AMBULATORY - MEDICINE [facility] May 27, 2024 11:00 AM AMBULATORY - MEDICINE [facility] Active, Pending, and Scheduled Orders This section includes a listing of several types of active, pending, and scheduled orders, including clinic medications orders, diagnostic test orders, procedure orders and consult orders; where the start date of the order is 45 days before the date of the Encounter or 45 days after the date of theEncounter. The data comes from all [place] treatment facilities. Test Date/Time Test Type Test Details Facility Name Jan 26, 2024 02:11 PM Consult Order RHEUMATOLO GY OUTPATIENT ST Cons Manager [facility] Feb 17, 2024 01:16 PM Consult Order PLASTIC SHELLEY RGERY OUTPT STL Cons Manager [facility] Mar 16, 2024 10:22 AM Consult Order [facility] PLASTIC SURG Cons Manager [facility] Lab Results: +/- 30 days [...] Jan 26, 2024 02:11 PM Reporting Lab: [facility] [address] [facility] [address] Performing Lab: [facility] [address] [facility] [address] CRP 0.6 mg/dL H 0-0.5 Jan 26, 2024 02:47 PM [facility] ESR ISED(STL) Specimen Type: BLOOD No comment entered. Ordering Provider: FRANSISCO MORTON Report Released Date/Time: Jan 26, 2024 02:11 PM Reporting Lab: [facility] [address] [facility] [address] Performing Lab: [facility] [address] [facility] [address] ESR ISED(STL) 35 mm/h H 0-14 Jan 26, 2024 02:47 PM [facility] RHEUMATOID FACTOR (STL) Specimen Type: SERUM No comment entered. Ordering Provider: FRANSISCO MORTON Report Released Date/Time: Jan 26, 2024 02:19 PM Reporting Lab: [facility] [address] [facility] [address] Performing Lab: [facility] [address] [facility] [address] RHEUMATOID FACTOR (STL) <15.0 0-29 Social History: [...] 26, 2021 03:59 PM [facility] NEVER USED [facility] Radiology Reports: +/- 30 days [...] THORAX W/O CONT HIGH RES: JORDYN PINEDA [id number] -1985 M Exm Date: FEB 12, 2024@14:18 Req Phys: FLOYD WOO Loc: [facility]PULM [facility]UR[facility] 1 (Req'g Loc) Img Loc: [facility]-CT IMAGING [facility] Service: [facility], [facility] [address] [place] [address] (Case [id number] COMPLETE) CT THORAX W/O CONT HIGH RES (CT Detailed) CPT:72162 Reason for Study: chronic cough, exertional dyspnea, + hazardous exposure hx Clinical History: Responsible Attending: floyd woo PA-C Attending Contact Number: [phone] Resident Contact Number: Allergies listed in CPRS chart: SHELLFISH Creatinine: CREATININE 0.95 mg/dL 11/25/2023 11:00 /eGFR: STL EGFR (within one year). CREATININE 0.95 mg/dL (11/25/23 11:00) Wt: 218.3 lb [99.02 kg] (01/14/2024 08:55) History of: Renal failure, chronic or acute renal disease: NO Report Status: Verified Date Reported: FEB 15, 2024 Date Verified: FEB 15, 2024 Plastics Production Machine Operator E-Sig:/ES/Lynn Castro MD Report: CASE #: [id number] DATE:02/12/2024 4:23 PM CLINICAL HISTORY:chronic cough, exertional [...] Primary Interpreting Staff: Lynn Castro MD, Radiologist (Plastics Production Machine Operator) /LYNN ONEILL [facility] Jan 28, 2024 02:20 PM HAND,RIGHT,3 OR MO RE VIEWS: JORDYN PINEDA [id number] -1985 M Exm Date: JAN 28, 2024@14:20 Req Phys: KODAK MORTON Pat Loc: [facility] PACT B5 NEW PATIENT (Re Img Loc: -[facility] RADIOLOGY SUITE Service: Unknown [facility], [facility] [address] [place] [address] (Case [id number] COMPLETE) HAND,RIGHT,3 OR MORE VIEWS (RAD Detailed) CPT:95977 Proc Modifiers : RIGHT Reason for Study: right hand feell stiff and pain specialy in morning Clinical History: right hand feell stiff and pain specialy in morning Report Status: Verified Date Reported: JAN 29, 2024 Date Verified: JAN 29, 2024 [employer] Production Machine Operator E-Sig:/FRANCY/ART ENCARNACION MD Report: Case #[id number]. Right hand examination. Finding: Three views of the right hand examination shows no fracture dislocation. No evidence of lytic or blastic bony lesion. No joint space narrowing or marginal erosion. No soft tissue swelling, radiopaque foreign body or abnormal calcification. Impression: No fracture dislocation or arthritic change. Primary Interpreting Staff: ART ENCARNACION MD, Staff Physician - Radiologist (Plastics Production Machine Operator) /GUNJAN ANDRADEVINNIE [facility] Jan 28, 2024 02:20 PM WRIST,RIGHT,3 OR M ORE VIEWS: JORDYN PINEDA [id number] -1985 M Exm Date: JAN 28, 2024@14:20 Req Phys: KODAK MORTON Pat Loc: [facility] PACT B5 NEW PATIENT (Re Img Loc: -[facility] RADIOLOGY SUITE Service: [facility], [facility] [address] [place] [address] (Case [id number] COMPLETE) WRIST,RIGHT,3 OR MORE VIEWS (RAD Detailed) CPT:42691 Proc Modifiers : RIGHT Reason for Study: right writs pain Clinical History: c/o right wroist pain Report Status: Verified Date Reported: JAN 29, 2024 Date Verified: JAN 29, 2024 [employer] Production Machine Operator E-Sig:/ES/ART ENCARNACION MD Report: Case #[id number]. [...] ART ENCARNACION MD, Staff Physician - Radiologist (Plastics Production Machine Operator) /GUNJAN ANDRADEVINNIE [facility] Jan 28, 2024 02:20 PM HAND,LEFT,3 OR MOR E VIEWS: JORDYN PINEDA ANTHONY [id number] -1985 M Exm Date: JAN 28, 2024@14:20 Req Phys: KODAK MORTON Pat Loc: [facility] PACT B5 NEW PATIENT (Re Img Loc: [facility] RADIOLOGY SUITE Service: Unknown [facility] [address] [place] [address] (Case [id number] COMPLETE) HAND,LEFT,3 OR MORE VIEWS (RAD Detailed) CPT:27036 Proc Modifiers : LEFT Reason for Study: left hand feell stiff and pain specialy in morning Clinical History: eft hand feell stiff and pain specialy in morning Report Status: Verified Date Reported: JAN 29, 2024 Date Verified: JAN 29, 2024 Plastics Production Machine Operator E-Sig:/FRANCY/ART ENCARNACION MD Report: Case #[id number]. [...] ART ENCARNACION MD, Staff Physician - Radiologist (Plastics Production Machine Operator) /ART ANDRADE [facility] Jan 28, 2024 02:20 PM WRIST,LEFT, 3 OR M ORE VIEWS: JORDYN PINEDA [id number] -1985 M Exm Date: JAN 28, 2024@14:20 Req Phys: KODAK MORTON Loc: [facility] PACT B5 NEW PATIENT (Re Img Loc: [facility] RADIOLOGY SUITE Service: Unknown [facility] [address] [place] [address] (Case [id number] COMPLETE) WRIST,LEFT, 3 OR MORE VIEWS (RAD Detailed) CPT:12173 Proc Modifiers : LEFT Reason for Study: c/o left wrist pain Clinical History: c/o left wrist pain Report Status: Verified Date Reported: JAN 29, 2024 Date Verified: JAN 29, 2024 Plastics Production Machine Operator E-Sig:/FRANCY/ART ENCARNACION MD Report: Case #[id number]. [...] ART ENCARNACION MD, Staff Physician - Radiologist (Plastics Production Machine Operator) /ART ANDRADE [facility] Jan 09, 2024 12:[address] CERVICAL SPINE W/O CONT: JORDYN PINEDA [id number] -1985 M Exm Date: JAN 09, 2024@12:18 Req Phys: BING ORTIZ Loc: [facility]-EMERGENCY DEPT 2ND SHIFT (R Img Loc: [facility] IMAGING [facility] Service: [address] [address] (Case [id number] COMPLETE) CT CERVICAL SPINE W/O CONT (CT Detailed) CPT:16772 Reason for Study: Neck pain, bilateral arm pain/weakness Clinical History: Responsible Attending: Yovany Attending Contact Number: [id number] Resident Contact Number: Neck pain, bilateral arm pain/weakness Allergies listed in CPRS chart: SHELLFISH Creatinine/eGFR: STL EGFR (within one year). CREATININE 0.95 mg/dL (11/25/23 11:00) Wt: 220.4 lb [99.97 kg] (11/25/2023 10:03) History of: Renal failure, chronic or acute renal disease: NO Report Status: Verified Date Reported: JAN 09, 2024 Date Verified: JAN 09, 2024 Plastics Production Machine Operator E-Sig: Report: CT CERVICAL SPINE W/O [...] dedicated MRI. READING PHYSICIAN: Ifrah Guzmán M.D. -[phone] 01/09/2024 11:23 PDT [facility] National Teleradiology Program [phone] (For Medical Practitioner Use Only) Attention Patients [...] Encounter Note(s) Provider Source Feb 02, 2024 01:51 PM PHYSICIAN LETTERS: LOCAL TITLE: TEST RESULT GENERAL LETTER STL STANDARD TITLE: PHYSICIAN LETTERS DATE OF NOTE: FEB 02, 2024@13:51 ENTRY DATE: FEB 02, 2024@13:51:27 AUTHOR: KODAK MORTON EXP COSIGNER: URGENCY: STATUS: COMPLETED [facility] [address] [place] [address] FEB 02, 2024 JORDYN PINEDA [address] [place], [place] [address] Dear Jordyn Pineda, I would like to update you on your recent test results. Blood test for inflammation including ESR and C-reactive protein both are high Test name Result units Ref. range ESR ISED(STL) 35 H mm/Hr. 0 - 14 Test name Result units Ref. range CRP 0.6 H mg/dL 0 - 0.5 - OTHER TEST RESULTS RADIOLOGY (NON-INVASIVE TEST RESULTS): Left hand x-ray report No fracture dislocation or arthritic change. Right hand x-ray report No fracture dislocation or arthritic change. Right wrist x-ray report No fracture dislocation or arthritic change. Wrist x-ray reportImpression: No fracture dislocation or arthritic change. PLAN I have reviewed your test results and we need you to meet with a Rheumatology (Arthritis ) specialist. FUTURE APPOINTMENTS: 02/02/2024 14:00 [facility] 02/08/2024 09:00 [facility]EMG AG 02/12/2024 14:30 [facility]CT FLASH PM 02/24/2024 13:30 [facility]SPEECH [facility] INDIVIDUAL 02/25/2024 08:00 [facility]ULM PA 1 03/25/2024 15:30 [facility] PACT B5 PCP 04/28/2024 15:00 [facility]RHEUMATOLOGY MD 1 05/27/2024 11:00 [facility] PACT B5 PCP Sincerely, Kodak Morton MD Staff Physician JORDYN PINEDA [facility]
--- OUTSIDE RECORDS SUMMARY | 2024-03-31 01:07 | XMS_ITS ---
Author Name [facility] Organization [facility] [place] Address [address] [place] [address] Care Team Providers Care Credit Rating Inspector Name Role Phone KODAK MORTON Primary [...] CHOIC E PREFE RR Apr 13, 2020 [id number] [phone] BOOGIE BAILEY PATIENT ANTHEM [employer] [place] PREFERRED PROVIDER ORGANIZAT ION (PPO) BLUE CHOIC E PREFE RR Apr 13, 2020 [id number] [phone] STEPHANIE BAILEYON PATIENT AN[place] [employer] [place] PREFERRED PROVIDER ORGANIZAT ION (PPO) BLUE CHOIC E PREFE RR Apr 13, 2020 [id number] [phone] STEPHANIE BAILEYON PATIENT [place] PREFERRED PROVIDER ORGANIZAT ION (PPO) BLUE CHOIC E PREFE RR Apr 13, 2020 [id number] [phone] BOOGIE BAILEY PATIENT PRIME THERAPEUTI CS RX PRESCRIPT ION BCBSI L [place] Apr 13, 2020 [id number] [phone] BOOGIE BAILEY PATIENT [facility] [address] [place] May 10, 2019 SELECT [id number] BOOGIE BAILEY PATIENT Selected Encounter This section includes the information on record at [place] for the Encounter. Date/Time Encounter Type Encounter Description Reason Pro vider Source Feb 09, 2024 11:00 AM Outpatient Encounter TELEPHONE PRIMARY CARE IHE Encounter Template Text not used by [place] [...] 02:30 PM AMBULATORY - NONE [facility] Feb 17, 2024 01:00 PM AMBULATORY - MEDICINE [facility] Feb 25, 2024 09:30 AM AMBULATORY - MEDICINE [facility] Mar 05, 2024 08:43 AM AMBULATORY - MEDICINE [facility] Mar 16, 2024 10:15 AM AMBULATORY - SURGERY [facility] Mar 21, 2024 12:14 PM AMBULATORY - MEDICINE [facility] Apr 01, 2024 10:00 AM AMBULATORY - PSYCHIATRY [facility] Apr 28, 2024 03:00 PM AMBULATORY - MEDICINE [facility] May 05, 2024 11:30 AM AMBULATORY - MEDICINE [facility] May 27, 2024 11:00 AM AMBULATORY - MEDICINE [facility] Active, Pending, and Scheduled Orders This section includes a listing of several types of active, pending, and scheduled orders, including clinic medications orders, diagnostic test orders, procedure orders and consult orders; where the start date of the order is 45 days before the date of the Encounter or 45 days after the date of theEncount. The data comes from all [place] treatment facilities. Test Date/Time Test Type Test Details Facility Name Jan 26, 2024 02:11 PM Consult Order RHEUMATOLO GY OUTPATIENT STL Cons Ct Scan Technologist[facility] Feb 17, 2024 01:16 PM Consult Order PLASTIC SHELLEY RGERY OUTPT STL Cons Ct Scan [facility]ologist[facility] Mar 16, 2024 10:22 AM Consult Order [facility] PLASTIC SURG Cons Ct Scan Technologist[facility] Mar 21, 2024 03:48 PM Procedure Order CP EKG STL CP EKG - STL Proc Ct Scan Technologist's [facility] Lab Results: +/- 30 [...] Range Comment Mar 05, 2024 11:10 AM [facility] TROPONIN I Specimen Type: PLASMA No comment entered. Ordering Provider: MUKESH MARINELLI Report Released Date/Time: Mar 05, 2024 11:04 AM Reporting Lab: [facility] [address] [facility] [address] Performing Lab: [address] [address] TROPONIN I <0.010 ng/mL 0-0.033 Mar 05, 2024 09:50 AM [facility] RESPIRATORY PCR PANEL Specimen Type: NASOPHARYNX Comment: The Simraceway RP Panel combines nested multiplex PCR and [...] the clinician evaluating the patient. Claudio GREEN, (275) Ordering Provider: MUKESH MARINELLI Report Released Date/Time: Mar 05, 2024 09:39 AM Reporting Lab: [address] [address] Performing Lab: [address] [address] *Adenovirus (BF) Not Detected Not Detected *Coronavirus [...] Not Detected Mar 05, 2024 09:00 AM [facility] CBC Specimen Type: BLOOD No comment entered. Ordering Provider: MUKESH MARINELLI Report Released Date/Time: Mar 05, 2024 08:52 AM Reporting Lab: [address] [address] Performing Lab: [address] [address] WBC 7.1 10*3/uL 3.6-11.2 RBC 4.84 10*6/uL [...] 10*3/uL 0.00-0.20 Mar 05, 2024 09:00 AM [facility] TROPONIN I Specimen Type: PLASMA Comment: No hemolysis noted. Ordering Provider: MUKESH MARINELLI Report Released Date/Time: Mar 05, 2024 08:52 AM Reporting Lab: [address] [address] Performing Lab: [address] [address] TROPONIN I 0.013 ng/mL 0-0.033 Mar 05, 2024 09:00 AM [facility] TSH (MA-PB) Specimen Type: SERUM No comment entered. Ordering Provider: MUKESH MARINELLI Report Released Date/Time: Mar 05, 2024 09:39 AM Reporting Lab: [address] [address] Performing Lab: [address] [address] TSH 0.283 u[IU]/mL L 0.47-5 FREE T4(REFLEX) 1.10 ng/mL 0.7-1.48 Mar 05, 2024 09:00 AM [facility] COMPREHENSIVE METABOLIC PANEL Specimen Type: PLASMA Comment: No hemolysis noted. Ordering Provider: MUKESH MARINELLI Report Released Date/Time: Mar 05, 2024 08:52 AM Reporting Lab: [facility] [address] [facility] [address] Performing Lab: [address] [address] CREATININE 0.92 mg/dL 0.7-1.3 UREA NITROGEN 15.6 [...] U/L 8-40 EGFR (CKD-EPI 2020) 108.5 >60 Mar 05, 2024 09:00 AM [facility] BRAIN NATRIURETIC PEPTIDE Specimen Type: PLASMA No comment entered. Ordering Provider: MUKESH MARINELLI Report Released Date/Time: Mar 05, 2024 09:39 AM Reporting Lab: [address] [address] Performing Lab: [address] [address] BRAIN NATRIURETIC PEPTIDE 16.2 pg/mL 0-100 Jan 26, 2024 02:47 PM [facility] CRP Specimen Type: PLASMA No comment entered. Ordering Provider: KODAK MORTON Report Released Date/Time: Jan 26, 2024 02:11 PM Reporting Lab: [address] [address] Performing Lab: [address] [address] CRP 0.6 mg/dL H 0-0.5 Jan 26, 2024 02:47 PM [facility] ESR ISED(STL) Specimen Type: BLOOD No comment entered. Ordering Provider: KODAK MORTON Report Released Date/Time: Jan 26, 2024 02:11 PM Reporting Lab: [facility] [address] [facility] [address] Performing Lab: [facility] [address] [facility] [address] ESR ISED(STL) 35 mm/h H 0-14 Jan 26, 2024 02:47 PM [facility] RHEUMATOID FACTOR (STL) Specimen Type: SERUM No comment entered. Ordering Provider: KODAK MORTON Report Released Date/Time: Jan 26, 2024 02:19 PM Reporting Lab: [facility] [address] [facility] [address] Performing Lab: [facility] [address] [facility] [address] RHEUMATOID FACTOR (STL) <15.0 0-29 Social History: [...] Nicolas allen Feb 26, 2021 03:59 PM [place]-TOBACCO NEVER USED [facility] Radiology Reports: +/- 30 days [...] AM CT PE CHEST W/3D: JORDYN BAILEY [id number] -1985 M Exm Date: MAR 05, 2024@10:00 Req Phys: MUKESH MARINELLI Loc: [facility]-EMERGENCY DEPT 2ND SHIFT (R Img Loc: [facility]-CT IMAGING [facility] Service: [facility] [address] [place] [address] (Case [id number] COMPLETE) CT THORAX W/CONT (PE) (CT Detailed) CPT:18456 Contrast Media : unspecified contrast media Reason [...] 05, 2024 Date Verified: MAR 05, 2024 Homeopathic Doctor E-Sig: Report: CT THORAX W/CONT (PE) [PRINTSET] HISTORY: chest pain, tachycardia COMPARISON: 02/12/2024 TECHNIQUE: Helical CT of the chest, with multiplanar reformats including maximum intensity projection (MIP) reconstructions, was performed at the local [place] facility. 1529 images were received by the [place] National Teleradiology Program (NTP) for interpretation. RADIATION [...] excluded. 3. Cardiomegaly. READING PHYSICIAN: Wilfred Roberts -[id number] 03/05/2024 7:32 [facility] National Teleradiology Program [phone] (For Medical Practitioner Use Only) Attention Patients / Veterans: If you have questions or concerns about these test results, please contact your ordering provider or primary care team. Primary Interpreting Staff: RADIOLOGY,OUTSIDE SERVICE, Staff Physician / RADIOLOGY,OUTSIDE SERVICE [facility] Mar 05, 2024 08:59 AM CHEST PORTABLE: JORDYN BAILEY [id number] -1985 M Ex Date: MAR 05, 2024@08:59 Req Phys: MUKESH MARINELLI Loc: -EMERGENCY DEPT 2ND SHIFT (R Img Loc: -MAIN RADIOLOGY SUITE Service: [address] [address] (Case [id number] COMPLETE) CHEST PORTABLE (RAD Detailed) CPT:43480 Proc Modifiers : Portable Reason for Study: chest pain Clinical History: Report Status: Verified Date Reported: MAR 05, 2024 Date Verified: MAR 05, 2024 Homeopathic Doctor E-Sig: Report: CHEST PORTABLE Comparison: 05/20/2023, 02/12/2024 Clinical History: chest pain The study was performed and supervised at the local [place] facility, and subsequently transmitted to [facility] NTP (National Teleradiology Program) for interpretation. Impression: Lungs: Small left effusion with left basilar opacity which may represent atelectasis or consolidation.. Cardiomediastinal silhouette: No enlargement of the cardiomediastinal silhouette. Bones and soft tissues: No acute finding. READING PHYSICIAN: Sandeep Kraft M.D. -[id number] 03/05/2024 7:29 PST [facility] National Teleradiology Program [phone] (For Medical Practitioner Use Only) Attention Patients / Veterans: If you have questions or concerns about these test results, please contact your ordering provider or primary care team. Primary Interpreting Staff: RADIOLOGY,OUTSIDE SERVICE, Staff Physician / RADIOLOGY,OUTSIDE SERVICE [facility] Feb 12, 2024 02:[address] THORAX W/O CONT HIGH RES: JORDYN BAILEY [id number] -1985 M Exm Date: FEB 12, 2024@14:18 Req Phys: FLOYD OWO Loc: [facility] (Req'g Loc) Im Loc: [facility]-CT IMAGING [facility] Service: Unknown [facility] [address] [place] [address] (Case [id number] COMPLETE) CT THORAX W/O CONT HIGH RES (CT Detailed) CPT:30352 Reason for Study: chronic cough, exertional dyspnea, + hazardous exposure hx Clinical History: Responsible Attending: floyd woo PA-C Attending Contact Number: [phone] Resident Contact Number: Allergies listed in CPRS chart: SHELLFISH Creatinine: CREATININE 0.95 mg/dL 11/25/2023 11:00 /eGFR: STL EGFR (within one year). CREATININE 0.95 mg/dL (11/25/23 11:00) Wt: 218.3 lb [99.02 kg] (01/14/2024 08:55) History of: Renal failure, chronic or acute renal disease: NO Report Status: Verified Date Reported: FEB 15, 2024 Date Verified: FEB 15, 2024 Homeopathic Doctor E-Sig:/ES/Lynn Castro MD Report: CASE #: [id number] DATE:02/12/2024 4:23 PM CLINICAL HISTORY:chronic cough, exertional [...] Primary Interpreting Staff: Lynn Castro MD, Radiologist (Homeopathic Doctor) /LYNN ONEILL [facility] Jan 28, 2024 02:20 PM HAND,RIGHT,3 OR MORE VIEWS: JORDYN BAILEY ANTHONY [id number] -1985 M Exm Date: JAN 28, 2024@14:20 Req Phys: KODAK MORTON Pat Loc: [facility] PACT B5 NEW PATIENT (Re Img Loc: [facility] RADIOLOGY SUITE Service: Unknown [address] [address] (Case [id number] COMPLETE) HAND,RIGHT,3 OR MORE VIEWS (RAD Detailed) CPT:05994 Proc Modifiers : RIGHT Reason for Study: right hand feell stiff and pain specialy in morning Clinical History: right hand feell stiff and pain specialy in morning Report Status: Verified Date Reported: JAN 29, 2024 Date Verified: JAN 29, 2024 Homeopathic Doctor E-Sig:/NATALIIA/ART ENCARNACION MD Report: Case #[id number]. Right hand examination. Finding: Three views of the right hand examination shows no fracture dislocation. No evidence of lytic or blastic bony lesion. No joint space narrowing or marginal erosion. No soft tissue swelling, radiopaque foreign body or abnormal calcification. Impression: No fracture dislocation or arthritic change. Primary Interpreting Staff: ART ENCARNACION MD, Staff Physician - Radiologist (Homeopathic Doctor) /ART ANDRADE [facility] Jan 28, 2024 02:20 PM WRIST,RIGHT,3 OR MORE VIEWS: LYNNJORDYN CRUZ [id number] -1985 M Exm Date: JAN 28, 2024@14:20 Req Phys: KODAK MORTON Loc: [facility] PACT B5 NEW PATIENT (Re Img Loc: [facility] RADIOLOGY SUITE Service: Unknown [facility] [address] [place] [address] (Case [id number] COMPLETE) WRIST,RIGHT,3 OR MORE VIEWS (RAD Detailed) CPT:99384 Proc Modifiers : RIGHT Reason for Study: right writs pain Clinical History: c/o right wroist pain Report Status: Verified Date Reported: JAN 29, 2024 Date Verified: JAN 29, 2024 Homeopathic Doctor E-Sig:/NATALIIA/ART ENCARNACION MD Report: Case #[id number]. Right [...] ART ENCARNACION MD, Staff Physician - Radiologist (Homeopathic Doctor) /ART ANDRADE [facility] Jan 28, 2024 02:20 PM HAND,LEFT,3 OR MORE VIEWS: JORDYN BAILEY ANTHONY [id number] -1985 M Exm Date: JAN 28, 2024@14:20 Req Phys: KODAK MORTON Loc: [facility] PACT B5 NEW PATIENT (Re Img Loc: -[facility] RADIOLOGY SUITE Service: [facility], [address] [address] (Case [id number] COMPLETE) HAND,LEFT,3 OR MORE VIEWS (RAD Detailed) CPT:18952 Proc Modifiers : LEFT Reason for Study: left hand feell stiff and pain specialy in morning Clinical History: eft hand feell stiff and pain specialy in morning Report Status: Verified Date Reported: JAN 29, 2024 Date Verified: JAN 29, 2024 Homeopathic Doctor E-Sig:/ES/ART ENCARNACION MD Report: Case #[id number]. Left hand examination. Finding: Three views of the left hand examination shows no fracture dislocation. No evidence of lytic or blastic bony lesion. No joint space narrowing or marginal erosion. No soft tissue swelling, radiopaque foreign body or abnormal calcification. Impression: No fracture dislocation or arthritic change. Primary Interpreting Staff: ART ENCARNACION MD, Staff Physician - Radiologist (Homeopathic Doctor) /ART ANDRADE [facility] Jan 28, 2024 02:20 PM WRIST,LEFT, 3 OR MORE VIEWS: JORDYN BAILEY ANTHONY [id number] -1985 M Exm Date: JAN 28, 2024@14:20 Req Phys: KODAK MORTON Loc: [facility] PACT B5 NEW PATIENT (Re Img Loc: -MAIN RADIOLOGY SUITE Service: Unknown [facility] [address] [place] [address] (Case [id number] COMPLETE) WRIST,LEFT, 3 OR MORE VIEWS (RAD Detailed) CPT:81075 Proc Modifiers : LEFT Reason for Study: c/o left wrist pain Clinical History: c/o left wrist pain Report Status: Verified Date Reported: JAN 29, 2024 Date Verified: JAN 29, 2024 Homeopathic Doctor E-Sig:/NATALIIA/ART ENCARNACION MD Report: Case #[id number]. Left [...] ART ENCARNACION MD, Staff Physician - Radiologist (Homeopathic Doctor) /ART ANDRADE [facility] Encounter Notes: All associated encounter notes This section contains the clinical notes associated to the Encounter. Date/Time Encounter Note(s) Provider Source Feb 09, 2024 11:00 AM SOCIAL WORK TELEPH ONE ENCOUNTER NOTE: LOCAL TITLE: SW TELEPHONE CONTACT [facility] STANDARD TITLE: SOCIAL WORK TELEPHONE ENCOUNTER NOTE DATE OF NOTE: FEB 09, 2024@11:00 ENTRY DATE: FEB 09, 2024@11:28:26 AUTHOR: KYLAH STEVENS EXP COSIGNER: URGENCY: STATUS: COMPLETED JORDYN BAILEY Missed Contact SW was unable to reach [place] at listed phone number. SW left a message for to call SW back. SW received a digital divide consult and SW calling to complete digital divide SW assessment. /nataliia/ KYLAH ST[facility]ENS [facility] Signed: 02/09/2024 11:31 KYLAH STEVENS [facility]
--- OUTSIDE RECORDS SUMMARY | 2024-03-31 01:07 | XMS_ITS | Encounter Summary ---
Author Name [facility] [facility] [place] Address [address], [place] [address] Care Team Providers Care Final Touch Up Painter Name Role Phone KODAK MORTON Primary Care [...] CHOIC E PREFE RR Apr 13, 2020 [id number] [phone] BOOGIE BAILEY PATIENT ANTHEM [employer] [place] PREFERRED PROVIDER ORGANIZAT ION (PPO) BLUE CHOIC E PREFE RR Apr 13, 2020 [id number] [phone] STEPHANIE BAILEYON PATIENT ANTHEM [employer] [place] PREFERRED PROVIDER ORGANIZAT ION (PPO) BLUE CHOIC E PREFE RR Apr 13, 2020 [id number] [phone] BOOGIE BAILEY PATIENT [employer] [place] PREFERRED PROVIDER ORGANIZAT ION (PPO) BLUE CHOIC E PREFE RR Apr 13, 2020 [id number] [phone] BOOGIE BAILEY PATIENT PRIME THERAPEUTI CS RX PRESCRIPT ION BCBSI L [place] Apr 13, 2020 [id number] [phone] BOOGIE BAILEY PATIENT [facility] 2018 [place] May 10, 2019 SELECT [id number] BOOGIE BAILEY PATIENT Selected Encounter This section includes the information on record at [place] for the Encounter. Date/Time Encounter Type Encounter Description Reason Provider Source Feb 09, 2024 02:30 PM HC PRO PHONE CALL 11-20 MIN TELEPHONE PRIMARY CARE ICD-10-CM Z71.9 Counseling, unspecified [facility]DES STEVENS [facility] Encounter Template Text not used by [place] Assessments - Encounter Diagnoses This section includes the primary and secondary diagnoses documented for the Encounter. Date/Time Primary/Secondary Diagnosis Diagnosis Name Provider Source Feb 09, 2024 02:30 PM PRIMARY Counseling, neftaliified [facility] STEVENS [facility] Plan of Treatment: Future Appointments (+ 6 [...] 12, 2024 02:30 PM AMBULATORY - NONE [facility] Feb 17, 2024 01:00 PM AMBULATORY - MEDICINE [facility] Feb 25, 2024 09:30 AM AMBULATORY - MEDICINE [facility] Mar 05, 2024 08:43 AM AMBULATORY - MEDICINE [facility] Mar 16, 2024 10:15 AM AMBULATORY - SURGERY . [facility] Mar 21, 2024 12:14 PM AMBULATORY - MEDICINE [facility] Apr 01, 2024 10:00 AM AMBULATORY - PSYCHIATRY [facility] Apr 28, 2024 03:00 PM AMBULATORY - MEDICINE [facility] May 05, 2024 11:30 AM AMBULATORY - MEDICINE [facility] May 27, 2024 11:00 AM AMBULATORY - MEDICINE [facility] Active, Pending, and Scheduled Orders [...] Consult Order RHEUMATOLO GY OUTPATIENT STL [facility] Feb 17, 2024 01:16 PM Consult Order PLASTIC SHELLEY RGERY [facility] Mar 16, 2024 10:22 AM Consult Order [facility] Mar 21, 2024 03:48 PM Procedure Order CP EKG STL CP EKG - STL Proc [facility] Lab Results: +/- 30 days of the encounter This section includes the Chemistry and Hematology Lab Results on record with [place] for the patient. Radiology Reports and Pathology Reports are provided separately, in subsequent sections. Lab Results This section contains the Chemistry/Hematology Results that were resulted 30 days before or 30 daysafter the date of the Encounter. Date/Time Source Result Type Result - Unit Interpretation Reference Range Comment Mar 05, 2024 11:10 AM [facility] TROPONIN I Specimen Type: PLASMA No comment entered. Ordering Provider: MUKESH MARINELLI Report Released Date/Time: Mar 05, 2024 11:04 AM Reporting Lab: [facility] [address] [address] Performing Lab: [facility] [address] [address] TROPONIN I <0.010 ng/mL 0-0.033 Mar 05, 2024 09:50 AM [facility] RESPIRATORY PCR PANEL Specimen Type: NASOPHARYNX Comment: The FilmArray RP [...] available to the clinician evaluating the patient. ARPUPEBBLESEClaudio Susanne, (337) Ordering Provider: MUKESH MARINELLI Report Released Date/Time: Mar 05, 2024 09:39 AM Reporting Lab: [facility] [address] [address] Performing Lab: [facility] [address] [address] *Adenovirus (BF) Not Detected Not Detected *Coronavirus [...] Not Detected Mar 05, 2024 09:00 AM [facility] CBC Specimen Type: BLOOD No comment entered. Ordering Provider: MUKESH MARINELLI Report Released Date/Time: Mar 05, 2024 08:52 AM Reporting Lab: [facility] [address] [address] Performing Lab: [facility] [address] [address] WBC 7.1 10*3/uL 3.6-11.2 RBC 4.84 10*6/uL [...] 10*3/uL 0.00-0.20 Mar 05, 2024 09:00 AM [facility] TROPONIN I Specimen Type: PLASMA Comment: No hemolysis noted. Ordering Provider: MUKESH MARINELLI Report Released Date/Time: Mar 05, 2024 08:52 AM Reporting Lab: [place] [address] Performing Lab: [place] [id number] TROPONIN I 0.013 ng/mL 0-0.033 Mar 05, 2024 09:00 AM [facility] TSH (MA-PB) Specimen Type: SERUM No comment entered. Ordering Provider: MUKESH MARINELLI Report Released Date/Time: Mar 05, 2024 09:39 AM Reporting Lab: [place] [id number] Performing Lab: [place] [id number] TSH 0.283 u[IU]/mL L 0.47-5 FREE T4(REFLEX) 1.10 ng/mL 0.7-1.48 Mar 05, 2024 09:00 AM [facility] COMPREHENSIVE METABOLIC PANEL Specimen Type: PLASMA Comment: No hemolysis noted. Ordering Provider: MUKESH MARINELLI Report Released Date/Time: Mar 05, 2024 08:52 AM Reporting Lab: [place] [address] [address] Performing Lab: [place] [address] [address] CREATININE 0.92 mg/dL 0.7-1.3 UREA NITROGEN 15.6 [...] 108.5 >60 Mar 05, 2024 09:00 AM [facility] BRAIN NATRIURETIC PEPTIDE Specimen Type: PLASMA No comment entered. Ordering Provider: MUKESH MARINELLI Report Released Date/Time: Mar 05, 2024 09:39 AM Reporting Lab: [facility] [address] [address] Performing Lab: [place] [address] [address] [address] BRAIN NATRIURETIC PEPTIDE 16.2 pg/mL 0-100 Jan 26, 2024 02:47 PM [facility] CRP Specimen Type: PLASMA No comment entered. Ordering Provider: KODAK MORTON Report Released Date/Time: Jan 26, 2024 02:11 PM Reporting Lab: [place] [address] [address] [address] Performing Lab: [facility] [address] [address] CRP 0.6 mg/dL H 0-0.5 Jan 26, 2024 02:47 PM [facility] ESR ISED(STL) Specimen Type: BLOOD No comment entered. Ordering Provider: KODAK MORTON Report Released Date/Time: Jan 26, 2024 02:11 PM Reporting Lab: [address] [address] Performing Lab: [address] [address] ESR ISED(STL) 35 mm/h H 0-14 Jan 26, 2024 02:47 PM [facility] RHEUMATOID FACTOR (STL) Specimen Type: SERUM No comment entered. Ordering Provider: OKDAK MORTON Report Released Date/Time: Jan 26, 2024 02:19 PM Reporting Lab: [address] [address] Performing Lab: [address] [address] RHEUMATOID FACTOR (STL) <15.0 0-29 Social History: [...] 20, 2023 09:00 AM [place]-TOBACCO FORMER USER [facility] Tobacco Use History This section includes a history of the smoking, or tobacco-related health factors, that were collected on or before the date of the Encounter. The data comes from the [place] facility where the Encounter took place. Date/Time Smoking Status/Tobacco Use Comment Winsome aczofia May 20, 2023 09:00 AM [place] 15 YRS OR MORE [facility] May 28, 2022 10:30 AM [place]-TOBACCO NEVER USED [facility] Radiology Reports: +/- 30 days of the [...] the Encounter. The data comes from all [place] treatment facilities. Date/Time Radiology Report Provider Source Mar 05, 2024 10:[address] PE CHEST W/3D: JORDYN BAILEY ANTHONY [id number] -1985 M Exm Date: MAR 05, 2024@10:00 Req Phys: MUKESH MARINELLI Loc: [facility] 2ND SHIFT (R Img Loc: [facility] Service: [address] [address] (Case [id number] COMPLETE) CT THORAX W/CONT (PE) (CT Detailed) CPT:28468 Contrast Media : unspecified contrast media Reason [...] 05, 2024 Date Verified: MAR 05, 2024 Refuse Collector Supervisor E-Sig: Report: CT THORAX W/CONT (PE) [PRINTSET] HISTORY: chest pain, tachycardia COMPARISON: 02/12/2024 TECHNIQUE: Helical CT of the chest, with multiplanar reformats including maximum intensity projection (MIP) reconstructions, was performed at the local [place] facility. 1529 images were received by the [place] National Teleradiology Program (NTP) for interpretation. RADIATION [...] excluded. 3. Cardiomegaly. READING PHYSICIAN: Wilfred Roberts -[id number] 03/05/2024 7:32 [facility] National Teleradiology Program [phone] (For Medical Practitioner Use Only) Attention Patients / Veterans: If you have questions or concerns about these test results, please contact your ordering provider or primary care team. Primary Interpreting Staff: RADIOLOGY,OUTSIDE SERVICE, Staff Physician / RADIOLOGY,OUTSIDE SERVICE [facility] Mar 05, 2024 08:59 AM CHEST PORTABLE: LYNNJORDYNCARLA CRUZ [id number] -1985 M Exm Date: MAR 05, 2024@08:59 Req Phys: MUKESH MARINELLI Loc: [facility] 2ND SHIFT (R Img Loc: -MAIN RADIOLOGY SUITE Service: [facility], [facility] [address] [place] [address] (Case [id number] COMPLETE) CHEST PORTABLE (RAD Detailed) CPT:74296 Proc Modifiers : Portable Reason for Study: chest pain Clinical History: Report Status: Verified Date Reported: MAR 05, 2024 Date Verified: MAR 05, 2024 Refuse Collector Supervisor E-Sig: Report: CHEST PORTABLE Comparison: 05/20/2023, 02/12/2024 Clinical History: chest pain The study was performed and supervised at the local [place] facility, and subsequently transmitted to [facility] NTP (National Teleradiology Program) for interpretation. Impression: Lungs: Small left effusion with left basilar opacity which may represent atelectasis or consolidation.. Cardiomediastinal silhouette: No enlargement of the cardiomediastinal silhouette. Bones and soft tissues: No acute finding. READING PHYSICIAN: Sandeep Kraft M.D. -[id number] 03/05/2024 7:29 PST [facility] National Teleradiology Program [phone] (For Medical Practitioner Use Only) Attention Patients / Veterans: If you have questions or concerns about these test results, please contact your ordering provider or primary care team. Primary Interpreting Staff: RADIOLOGY,OUTSIDE SERVICE, Staff Physician / RADIOLOGY,OUTSIDE SERVICE [facility] Feb 12, 2024 02:[address] THORAX W/O CONT HIGH RES: JORDYN BAILEY [id number] -1985 M Exm Date: FEB 12, 2024@14:18 Req Phys: FLOYD WOO Loc: [facility]PULM GURINDER 1 (Req'g Loc) Img Loc: [facility] Service: [facility], [facility] [address] [place] [address] (Case [id number] COMPLETE) CT THORAX W/O CONT HIGH RES (CT Detailed) CPT:85536 Reason for Study: chronic cough, exertional dyspnea, + hazardous exposure hx Clinical History: Responsible Attending: floyd woo PA-C Attending Contact Number: [phone] Resident Contact Number: Allergies listed in CPRS chart: SHELLFISH Creatinine: CREATININE 0.95 mg/dL 11/25/2023 11:00 /eGFR: STL EGFR (within one year). CREATININE 0.95 mg/dL (11/25/23 11:00) Wt: 218.3 lb [99.02 kg] (01/14/2024 08:55) History of: Renal failure, chronic or acute renal disease: NO Report Status: Verified Date Reported: FEB 15, 2024 Date Verified: FEB 15, 2024 Refuse Collector Supervisor E-Sig:/ES/Lynn Castro MD Report: CASE #: [id number] DATE:02/12/2024 4:23 PM CLINICAL HISTORY:chronic cough, exertional [...] Primary Interpreting Staff: Lynn Castro MD, Radiologist (Refuse Collector Supervisor) /LYNN ONEILL [facility] Jan 28, 2024 02:20 PM HAND,RIGHT,3 OR MORE VIEWS: JORDYN BAILEY [id number] -1985 M Exm Date: JAN 28, 2024@14:20 Req Phys: KODAK MORTON Loc: [facility] PACT B5 NEW PATIENT (Re Img Loc: -[facility] RADIOLOGY SUITE Service: [facility], [facility] [address] [place] [address] (Case [id number] COMPLETE) HAND,RIGHT,3 OR MORE VIEWS (RAD Detailed) CPT:84758 Proc Modifiers : RIGHT Reason for Study: right hand feell stiff and pain specialy in morning Clinical History: right hand feell stiff and pain specialy in morning Report Status: Verified Date Reported: JAN 29, 2024 Date Verified: JAN 29, 2024 Refuse Collector Supervisor E-Sig:/ES/ART ENCARNACION MD Report: Case #[id number]. Right hand examination. Finding: Three views of the right hand examination shows no fracture dislocation. No evidence of lytic or blastic bony lesion. No joint space narrowing or marginal erosion. No soft tissue swelling, radiopaque foreign body or abnormal calcification. Impression: No fracture dislocation or arthritic change. Primary Interpreting Staff: ART ENCARNACION MD, Staff Physician - Radiologist (Refuse Collector Supervisor) /ART ANDRADE [facility] Jan 28, 2024 02:20 PM WRIST,RIGHT,3 OR MORE VIEWS: JORDYN BAILEY [id number] -1985 M Exm Date: JAN 28, 2024@14:20 Req Phys: KODAK MORTON Pat Loc: [facility] PACT B5 NEW PATIENT (Re Img Loc: [facility] RADIOLOGY SUITE Service: Unknown [facility] [address] [place] [address] (Case [id number] COMPLETE) WRIST,RIGHT,3 OR MORE VIEWS (RAD Detailed) CPT:38375 Proc Modifiers : RIGHT Reason for Study: right writs pain Clinical History: c/o right wroist pain Report Status: Verified Date Reported: JAN 29, 2024 Date Verified: JAN 29, 2024 Refuse Collector Supervisor E-Sig:/ES/ART ENCARNACION MD Report: Case #[id number]. Right [...] dislocation or arthritic change. Primary Interpreting Staff: ATR ENCARNACION MD, Staff Physician - Radiologist (Refuse Collector Supervisor) /ART ANDRADE [facility] Jan 28, 2024 02:20 PM HAND,LEFT,3 OR MORE VIEWS: JORDYN BAILEY [id number] -1985 M Exm Date: JAN 28, 2024@14:20 Req Phys: KODAK MORTON Loc: [facility] PACT B5 NEW PATIENT (Re Img Loc: [facility] RADIOLOGY SUITE Service: Unknown [facility] [address] [place] [address] (Case [id number] COMPLETE) HAND,LEFT,3 OR MORE VIEWS (RAD Detailed) CPT:38856 Proc Modifiers : LEFT Reason for Study: left hand feell stiff and pain specialy in morning Clinical History: eft hand feell stiff and pain specialy in morning Report Status: Verified Date Reported: JAN 29, 2024 Date Verified: JAN 29, 2024 Refuse Collector Supervisor E-Sig:/NATALIIA/ART ENCARNACION MD Report: Case #[id number]. Left hand examination. Finding: Three views of the left hand examination shows no fracture dislocation. No evidence of lytic or blastic bony lesion. No joint space narrowing or marginal erosion. No soft tissue swelling, radiopaque foreign body or abnormal calcification. Impression: No fracture dislocation or arthritic change. Primary Interpreting Staff: ART ENCARNACION MD, Staff Physician - Radiologist (Refuse Collector Supervisor) /ART ANDRADE [facility] Jan 28, 2024 02:20 PM WRIST,LEFT, 3 OR MORE VIEWS: JORDYN BAILEY [id number] -1985 M Exm Date: JAN 28, 2024@14:20 Req Phys: KODAK MORTON Loc: [facility] PACT B5 NEW PATIENT (Re Img Loc: -[facility] RADIOLOGY SUITE Service: [facility], [facility] [address] [place] [address] (Case [id number] COMPLETE) WRIST,LEFT, 3 OR MORE VIEWS (RAD Detailed) CPT:85154 Proc Modifiers : LEFT Reason for Study: c/o left wrist pain Clinical History: c/o left wrist pain Report Status: Verified Date Reported: JAN 29, 2024 Date Verified: JAN 29, 2024 Refuse Collector Supervisor E-Sig:/ES/ART ENCARNACION MD Report: Case #[id number]. Left [...] ART ENCARNACION MD, Staff Physician - Radiologist (Refuse Collector Supervisor) /ART ANDRADE [facility] Encounter Notes: All associated encounter notes This section contains the clinical notes associated to the Encounter. Date/Time Encounter Note(s) Provider Source Feb 09, 2024 02:30 PM SOCIAL WORK TELEPH ONE ENCOUNTER NOTE: LOCAL TITLE: SW TELEPHONE CONTACT ST STANDARD TITLE: SOCIAL WORK TELEPHONE ENCOUNTER NOTE DATE OF NOTE: FEB 09, 2024@14:30 ENTRY DATE: FEB 09, 2024@14:58:24 AUTHOR: KYLAH STEVENS EXP COSIGNER: URGENCY: STATUS: COMPLETED LYNNLISAJORDYN ANTHONY Problem: SW made a phone call to [place]. [place] asked if there is a document that would allow his to talk to [facility] staff about his medical issues and see any of his medical issues. Intervention: reported having my health Vet. SW discussed [place] advance directive (medical POA and living will). SW will mail a [place] advance directive, instructions on how to complete and business card to call for assistance. SW will mail a [place] Form [id number] which would allow VA staff to talk to his and to see his medical records. Resolution: Sterling has SW phone number to call for assistance. Duration: 25 minutes. /nataliia/ KYLAH STEVENS WET POUR MIXER Signed: 02/09/2024 15:07 KYLAH STEVENS [facility]
--- OUTSIDE RECORDS SUMMARY | 2024-03-31 01:07 | XMS_ITS | Encounter Summary ---
Author Name [facility] [place] [facility] [place] [facility] [place] Address [address], [place] [address] Care Team Providers Care Real Estate Closing Coordinator Name Role Phone KODAK MORTON Primary Care [...] CHOIC E PREFE RR Apr 13, 2020 [id number] [phone] BOOGIE BAILEY PATIENT ANTHEM [employer] [place] PREFERRED PROVIDER ORGANIZAT ION (PPO) BLUE CHOIC E PREFE RR Apr 13, 2020 [id number] [phone] STEPHANIE BAILEYON PATIENT ANTHEM [employer] [place] PREFERRED PROVIDER ORGANIZAT ION (PPO) BLUE CHOIC E PREFE RR Apr 13, 2020 [id number] [phone] BOOGIE BAILEY PATIENT [place] PREFERRED PROVIDER ORGANIZAT ION (PPO) BLUE CHOIC E PREFE RR Apr 13, 2020 [id number] [phone] BOOGIE BAILEY PATIENT PRIME THERAPEUTI CS RX PRESCRIPT ION BCBSI L [place] Apr 13, 2020 [id number] [phone] BOOGIE BAILEY PATIENT [facility] [address] [place] May 10, 2019 SELECT [id number] BOOGIE BAILEY PATIENT Selected Encounter This section includes the information on record at [place] for the Encounter. Date/Time Encounter Type Encounter Description Reason Provider Source Feb 09, 2024 02:00 PM HC PRO PHONE CALL 11-20 MIN TELEPHONE PRIMARY CARE ICD-10-CM Z71.9 Counseling, unspecified [facility] Encounter Template Text not used by [place] Assessments - Encounter Diagnoses This section includes the primary and secondary diagnoses documented for the Encounter. Date/Time Primary/Secondary Diagnosis Diagnosis Name Provider Source Feb 09, 2024 02:00 PM PRIMARY Counseling, unspecified [facility] Plan of Treatment: Future Appointments (+ 6 months) and Future Tests (+/- 45 days) The Plan of Treatment section includes future care activities for the patient from all [place] treatmentfacilities. This section includes future appointments and future orders which are active, pending or scheduled. Future Appointments This section includes appointments that were scheduled to occur 6 months from the date of the Encounter, up to a maximum of 20 appointments. The data comes from all [place] treatment facilities. Appointment Date/Time Appointment Type Appointme nt Facility Name Feb 12, 2024 02:30 PM AMBULATORY - NONE [facility] Feb 17, 2024 01:00 PM AMBULATORY - MEDICINE [facility] Feb 25, 2024 09:30 AM AMBULATORY - MEDICINE [facility] Mar 05, 2024 08:43 AM AMBULATORY - MEDICINE [facility] Mar 16, 2024 10:15 AM AMBULATORY - SURGERY . [facility] Mar 21, 2024 12:14 PM AMBULATORY - MEDICINE [facility] Apr 01, 2024 10:00 AM AMBULATORY - PSYCHIATRY [facility] Apr 28, 2024 03:00 PM AMBULATORY - MEDICINE [facility] May 05, 2024 11:30 AM [...] of theEncounter. The data comes from all [place] treatment facilities. Test Date/Time Test Type Test Details Facility Name Jan 26, 2024 02:11 PM Consult Order RHEUMATOLO GY OUTPATIENT STL Cons Interventional Radiology Rn's [facility] Feb 17, 2024 01:16 PM Consult Order PLASTIC SHELLEY RGERY [facility] 16, 2024 10:22 AM Consult Order [facility] Mar [facility], [facility]24 03:48 PM Procedure Order CP EKG STL CP EKG - STL Proc [facility] Lab Results: +/- 30 days of the encounter This section includes the Chemistry and Hematology Lab Results on record with [place] for the patient. Radiology Reports and Pathology Reports are provided separately, in subsequent sections. Lab Results This section contains the Chemistry/Hematology Results that were resulted 30 days before or 30 daysafter the date of the Encounter. Date/Time Source Result Type Result - Unit Interpretation Reference Range Comment Mar 05, 2024 11:10 AM [facility] TROPONIN I Specimen Type: PLASMA No comment entered. Ordering Provider: MUKESH MARINELLI Report Released Date/Time: Mar 05, 2024 11:04 AM Reporting Lab: [facility] [address] [facility] [address] Performing Lab: [facility] [address] [address] TROPONIN I <0.010 ng/mL 0-0.033 Mar 05, 2024 09:50 AM [facility] RESPIRATORY PCR PANEL Specimen Type: NASOPHARYNX Comment: [...] available to the clinician evaluating the patient. Hemp Victory ExchangePEBBLESEClaudio Susanne, (015) Ordering Provider: MUKESH MARINELLI Report Released Date/Time: Mar 05, 2024 09:39 AM Reporting Lab: [facility] [address] [facility] [address] Performing Lab: [facility] [address] [facility] [address] *Adenovirus (BF) Not Detected Not Detected *Coronavirus [...] Not Detected Mar 05, 2024 09:00 AM [facility] CBC Specimen Type: BLOOD No comment entered. Ordering Provider: MUKESH MARINELLI Report Released Date/Time: Mar 05, 2024 08:52 AM Reporting Lab: [facility] [address] [facility] [address] Performing Lab: [facility] [address] [address] WBC 7.1 10*3/uL 3.6-11.2 RBC 4.84 10*6/uL [...] 10*3/uL 0.00-0.20 Mar 05, 2024 09:00 AM [facility] TROPONIN I Specimen Type: PLASMA Comment: No hemolysis noted. Ordering Provider: MUKESH MARINELLI Report Released Date/Time: Mar 05, 2024 08:52 AM Reporting Lab: [place] [address] Performing Lab: [place] [id number] TROPONIN I 0.013 ng/mL 0-0.033 Mar 05, 2024 09:00 AM [facility] TSH (MA-PB) Specimen Type: SERUM No comment entered. Ordering Provider: MUKESH MARINELLI Report Released Date/Time: Mar 05, 2024 09:39 AM Reporting Lab: [place] [id number] Performing Lab: [place] [id number] TSH 0.283 u[IU]/mL L 0.47-5 FREE T4(REFLEX) 1.10 ng/mL 0.7-1.48 Mar 05, 2024 09:00 AM [facility] BRAIN NATRIURETIC PEPTIDE Specimen Type: PLASMA No comment entered. Ordering Provider: MUKESH MARINELLI Report Released Date/Time: Mar 05, 2024 09:39 AM Reporting Lab: [address] [address] Performing Lab: [address] [address] BRAIN NATRIURETIC PEPTIDE 16.2 pg/mL 0-100 Mar 05, 2024 09:00 AM [facility] COMPREHENSIVE METABOLIC PANEL Specimen Type: PLASMA Comment: No hemolysis noted. Ordering Provider: MUKESH MARINELLI Report Released Date/Time: Mar 05, 2024 08:52 AM Reporting Lab: [address] [address] Performing Lab: [address] [address] CREATININE 0.92 mg/dL 0.7-1.3 UREA NITROGEN 15.6 [...] 108.5 >60 Jan 26, 2024 02:47 PM [facility] ESR ISED(STL) Specimen Type: BLOOD No comment entered. Ordering Provider: KODAK MORTON Report Released Date/Time: Jan 26, 2024 02:11 PM Reporting Lab: [address] [address] Performing Lab: [facility] [address] [facility] [address] ESR ISED(STL) 35 mm/h H 0-14 Jan 26, 2024 02:47 PM [facility] CRP Specimen Type: PLASMA No comment entered. Ordering Provider: KODAK MORTON Report Released Date/Time: Jan 26, 2024 02:11 PM Reporting Lab: [address] [address] Performing Lab: [facility] [address] [address] CRP 0.6 mg/dL H 0-0.5 Jan 26, 2024 02:47 PM [facility] RHEUMATOID FACTOR (STL) Specimen Type: SERUM No comment entered. Ordering Provider: KODAK MORTON Report Released Date/Time: Jan 26, 2024 02:19 PM Reporting Lab: [address] [address] Performing Lab: [address] [address] RHEUMATOID FACTOR (STL) <15.0 0-29 Social History: Smoking Status (Most current) and Tobacco Use (All prior to encounter date) This section includes the most current, and the historical, smoking and tobacco- related health factors from the [place] facility where the Encounter took place. Current Smoking Status This section includes the most current smoking, or tobacco-related health factor, from the [place] facility where the Encounter took place. Date/Time Current Smoking Status Comment Nicolas allen May 20, 2023 09:00 AM [place]-TOBACCO FORMER USER [facility] Tobacco Use History This section includes a history of the smoking, or tobacco-related health factors, that were collected on or before the date of the Encounter. The data comes from the [place] facility where the Encounter took place. Date/Time Smoking Status/Tobacco Use Comment Winsome aczofia May 20, 2023 09:00 AM [place]-TOBAC[place] QU[place] 15 YRS OR MORE [facility] May 28, 2022 10:30 AM [place]-TOBACCO NEVER USED [facility] Radiology Reports: +/- 30 days [...] the Encounter. The data comes from all [place] treatment facilities. Date/Time Radiology Report Provider Source Mar 05, 2024 10:[address] PE CHEST W/3D: JORDYN BAILEY ANTHONY [id number] -1985 M Exm Date: MAR 05, 2024@10:00 Req Phys: MUKESH MARINELLI Loc: [facility] 2ND SHIFT (R Img Loc: [facility] IM[facility] Service: [address] [address] (Case [id number] COMPLETE) CT THORAX W/CONT (PE) (CT Detailed) CPT:91294 Contrast Media : unspecified contrast media Reason [...] 05, 2024 Date Verified: MAR 05, 2024 Poker Room Manager E-Sig: Report: CT THORAX W/CONT (PE) [PRINTSET] HISTORY: chest pain, tachycardia COMPARISON: 02/12/2024 TECHNIQUE: Helical CT of the chest, with multiplanar reformats including maximum intensity projection (MIP) reconstructions, was performed at the local [place] facility. 1529 images were received by the [place] National Teleradiology Program (NTP) for interpretation. RADIATION [...] excluded. 3. Cardiomegaly. READING PHYSICIAN: Wilfred Roberts -[phone] 03/05/2024 7:32 [facility] National Teleradiology Program [phone] (For Medical Practitioner Use Only) Attention Patients / Veterans: If you have questions or concerns about these test results, please contact your ordering provider or primary care team. Primary Interpreting Staff: RADIOLOGY,OUTSIDE SERVICE, Staff Physician / RADIOLOGY,OUTSIDE SERVICE [facility] Mar 05, 2024 08:59 AM CHEST PORTABLE: LYNNJORDYNCARLA CRUZ [id number] -1985 M Exm Date: MAR 05, 2024@08:59 Req Phys: MUKESH MARINELLI Loc: [facility]ERG[facility]Y DEPT 2ND SHIFT (R Img Loc: -MAIN RADIOLOGY SUITE Service: [facility], [facility] [address] [place] [address] (Case [id number] COMPLETE) CHEST PORTABLE (RAD Detailed) CPT:53300 Proc Modifiers : Portable Reason for Study: chest pain Clinical History: Report Status: Verified Date Reported: MAR 05, 2024 Date Verified: MAR 05, 2024 Poker Room Manager E-Sig: Report: CHEST PORTABLE Comparison: 05/20/2023, 02/12/2024 Clinical History: chest pain The study was performed and supervised at the local [place] facility, and subsequently transmitted to [facility] NTP (National Teleradiology Program) for interpretation. Impression: Lungs: Small left effusion with left basilar opacity which may represent atelectasis or consolidation.. Cardiomediastinal silhouette: No enlargement of the cardiomediastinal silhouette. Bones and soft tissues: No acute finding. READING PHYSICIAN: Sandeep Kraft M.D. -[phone] 03/05/2024 7:29 PST [facility] National Teleradiology Program [phone] (For Medical Practitioner Use Only) Attention Patients / Veterans: If you have questions or concerns about these test results, please contact your ordering provider or primary care team. Primary Interpreting Staff: RADIOLOGY,OUTSIDE SERVICE, Staff Physician / RADIOLOGY,OUTSIDE SERVICE [facility] Feb 12, 2024 02:[address] THORAX W/O CONT HIGH RES: JORDYN BAILEY [id number] -1985 M Exm Date: FEB 12, 2024@14:18 Req Phys: FLOYD WOO Loc: [facility]PULM GURINDER 1 (Req'g Loc) Img Loc: [facility] Service: [facility], [facility] [address] [place] [address] (Case [id number] COMPLETE) CT THORAX W/O CONT HIGH RES (CT Detailed) CPT:83983 Reason for Study: chronic cough, exertional dyspnea, + hazardous exposure hx Clinical History: Responsible Attending: floyd woo PA-C Attending Contact Number: [phone] Resident Contact Number: Allergies listed in CPRS chart: SHELLFISH Creatinine: CREATININE 0.95 mg/dL 11/25/2023 11:00 /eGFR: STL EGFR (within one year). CREATININE 0.95 mg/dL (11/25/23 11:00) Wt: 218.3 lb [99.02 kg] (01/14/2024 08:55) History of: Renal failure, chronic or acute renal disease: NO Report Status: Verified Date Reported: FEB 15, 2024 Date Verified: FEB 15, 2024 Poker Room Manager E-Sig:/ES/Lynn Castro MD Report: CASE #: [id number] DATE:02/12/2024 4:23 PM CLINICAL HISTORY:chronic cough, exertional [...] Primary Interpreting Staff: Lynn Castro MD, Radiologist (Poker Room Manager) /LYNN ONEILL [facility] Jan 28, 2024 02:20 PM HAND,RIGHT,3 OR MORE VIEWS: JORDYN BAILEY [id number] -1985 M Exm Date: JAN 28, 2024@14:20 Req Phys: KODAK MORTON Loc: [facility] PACT B5 NEW PATIENT (Re Img [facility] SU[facility] Service: [facility], [facility] [address] [place] [address] (Case [id number] COMPLETE) HAND,RIGHT,3 OR MORE VIEWS (RAD Detailed) CPT:35930 Proc Modifiers : RIGHT Reason for Study: right hand feell stiff and pain specialy in morning Clinical History: right hand feell stiff and pain specialy in morning Report Status: Verified Date Reported: JAN 29, 2024 Date Verified: JAN 29, 2024 Poker Room Manager E-Sig:/ES/ART ENCARNACION MD Report: Case #[id number]. Right hand examination. Finding: Three views of the right hand examination shows no fracture dislocation. No evidence of lytic or blastic bony lesion. No joint space narrowing or marginal erosion. No soft tissue swelling, radiopaque foreign body or abnormal calcification. Impression: No fracture dislocation or arthritic change. Primary Interpreting Staff: ART ENCARNACION MD, Staff Physician - Radiologist (Poker Room Manager) /ART ANDRADE [facility] Jan 28, 2024 02:20 PM WRIST,RIGHT,3 OR MORE VIEWS: JORDYN BAILEY [id number] -1985 M Exm Date: JAN 28, 2024@14:20 Req Phys: KODAK MORTON Pat Loc: [facility] PACT B5 NEW PATIENT (Re Img Loc: [facility] RADIOLOGY SUITE Service: Unknown [facility] [address] [place] [address] (Case [id number] COMPLETE) WRIST,RIGHT,3 OR MORE VIEWS (RAD Detailed) CPT:60481 Proc Modifiers : RIGHT Reason for Study: right writs pain Clinical History: c/o right wroist pain Report Status: Verified Date Reported: JAN 29, 2024 Date Verified: JAN 29, 2024 Poker Room Manager E-Sig:/ES/ART ENCARNACION MD Report: Case #[id number]. Right [...] ART ENCARNACION MD, Staff Physician - Radiologist (Poker Room Manager) /ART ANDRADE [facility] Jan 28, 2024 02:20 PM HAND,LEFT,3 OR MORE VIEWS: JORDYN BAILEY [id number] -1985 M Exm Date: JAN 28, 2024@14:20 Req Phys: KODAK MORTON Loc: [facility] PACT B5 NEW PATIENT (Re Img Loc: [facility] RADIOLOGY SUITE Service: Unknown [facility] [address] [place] [address] (Case [id number] COMPLETE) HAND,LEFT,3 OR MORE VIEWS (RAD Detailed) CPT:94113 Proc Modifiers : LEFT Reason for Study: left hand feell stiff and pain specialy in morning Clinical History: eft hand feell stiff and pain specialy in morning Report Status: Verified Date Reported: JAN 29, 2024 Date Verified: JAN 29, 2024 Poker Room Manager E-Sig:/NATALIIA/ART ENCARNACION MD Report: Case #[id number]. Left hand examination. Finding: Three views of the left hand examination shows no fracture dislocation. No evidence of lytic or blastic bony lesion. No joint space narrowing or marginal erosion. No soft tissue swelling, radiopaque foreign body or abnormal calcification. Impression: No fracture dislocation or arthritic change. Primary Interpreting Staff: ART ENCARNACION MD, Staff Physician - Radiologist (Poker Room Manager) /ART ANDRADE [facility] Jan 28, 2024 02:20 PM WRIST,LEFT, 3 OR MORE VIEWS: JORDYN BAILEY [id number] -1985 M Exm Date: JAN 28, 2024@14:20 Req Phys: KODAK MORTON Loc: [facility] PACT B5 NEW PATIENT (Re Img Loc: -[facility] RAD[facility] SUITE Service: [facility], [facility] [address] [place] [address] (Case [id number] COMPLETE) WRIST,LEFT, 3 OR MORE VIEWS (RAD Detailed) CPT:36582 Proc Modifiers : LEFT Reason for Study: c/o left wrist pain Clinical History: c/o left wrist pain Report Status: Verified Date Reported: JAN 29, 2024 Date Verified: JAN 29, 2024 Poker Room Manager E-Sig:/ES/ART ENCARNACION MD Report: Case #[id number]. Left [...] ART ENCARNACION MD, Staff Physician - Radiologist (Poker Room Manager) /ART ANDRADE [facility] Encounter Notes: All associated encounter notes This section contains the clinical notes associated to the Encounter. Date/Time Encounter Note(s) Provider Source Feb 09, 2024 02:00 PM CONSULT: LOCAL TITLE: DIGITAL DIVIDE ASSESSMENT BY SOCIAL WORK CONSULT RE STANDARD TITLE: CONSULT DATE OF NOTE: FEB 09, 2024@14:00 ENTRY DATE: FEB 09, 2024@14:52:24 AUTHOR: KYLAH STEVENS COSIGNER: URGENCY: STATUS: COMPLETED Digital Divide Phone call. The does not require a device for hospice care or for [facility] Services. The is not participating in a mental health Evidence Based Protocol (EBP) and requires a second device. Also, the [place] is not receiving services from [facility] due to a vision impairment and requires a larger screen to effectively participate in video visits. The does not require peripheral devices for their video visit. The [place] is not interested in a program that could potential provide them with subsidized internet and/or their own video capable device. The is interested in a video capable device from [place] (loaned device). The [place] has connectivity at home that allows them to watch internet video without significant pauses. The does not own a device with a camera or a VA loaned tablet for VA Video Connect visits. The is interested in learning about programs that allow them to own their own device. is in need of VA loaned device. [place] informed that once the device is ordered and arrives to them, they will be receiving a call from the [place] [employer] ([phone]) to assist them in setting up the device. This device will be issued to you for 6 months, with the expectation that if the device is not being used at the 6-month gilles for video visits, the device must be returned. If you are using the device for video visits, you may keep it beyond 6 months. will receive a tablet. Device shipping information: Device will be shipped to the 's permanent address listed in [facility]. Duration: 15 minutes. /nataliia/ KYLAH STEVENS DIGITAL ACCOUNT SUPERVISOR Signed: 02/09/2024 14:54 KYLAH STEVENS [facility]
--- OUTSIDE RECORDS SUMMARY | 2024-03-31 01:07 | XMS_ITS | Encounter Summary ---
Author Name [facility] Organization [facility] Address [address] [place] [address] Care Team Providers Care Senior Analyst Name Role Phone KODAK MORTON Primary [...] CHOIC E PREFE RR Apr 13, 2020 [id number] [phone] BOOGIE BAILEY ANDON PATIENT ANTHEM [employer] [place] PREFERRED PROVIDER ORGANIZAT ION (PPO) BLUE CHOIC E PREFE RR Apr 13, 2020 [id number] [phone] LYNN,BOOGIE ANDON PATIENT AN[employer] [employer] [place] PREFERRED PROVIDER ORGANIZAT ION (PPO) BLUE CHOIC E PREFE RR Apr 13, 2020 [id number] [phone] BOOGIE BAILEY ANDON PATIENT [employer] [place] PREFERRED PROVIDER ORGANIZAT ION (PPO) BLUE CHOIC E PREFE RR Apr 13, 2020 [id number] [phone] BOOGIE BAILEY PATIENT PRIME THERAPEUTI CS RX PRESCRIPT ION BCBSI L [place] Apr 13, 2020 [id number] [phone] BOOGIE BAILEY PATIENT [facility] 2018 TRICA RE May 10, 2019 SELECT [id number] BOOGIE BAILEY PATIENT Selected Encounter This section includes the information on record at OR for the Encounter. Date/Time Encounter Type Encounter Description Reason Provider Source Feb 11, 2024 10:45 AM Outpatient Encounter ADMIN PAT ACTIVTIES (MASNONCT) CHRISTOFER STEVENS Encounter Template Text not used by OR Plan of Treatment: Future Appointments (+ 6 months) and Future Tests (+/- 45 days) The Plan of Treatment section includes future care activities for the patient [facility] This section includes future appointments and [...] PM AMBULATORY - NONE [facility] Feb 17, 2024 01:00 PM AMBULATORY - MEDICINE [facility] Feb 25, 2024 09:30 AM AMBULATORY - MEDICINE [facility] Mar 05, 2024 08:43 AM AMBULATORY - MEDICINE [facility] Mar 16, 2024 10:15 AM AMBUL[facility]ORY - SURGERY [facility] Mar 21, 2024 12:14 PM AMBULATORY - MEDICINE [facility] Apr 01, 2024 10:00 AM AMBULATORY - [facility]RY [facility] Apr 28, 2024 03:00 PM AMBULATORY - MEDICINE [facility] May 05, 2024 11:30 AM AMBULATORY - MEDICINE [facility] May 27, 2024 11:00 AM AMBULATORY - MEDICINE [facility] Active, Pending, and Scheduled Orders This section includes a listing of several types of active, pending, and scheduled orders, including clinic medications orders, diagnostic test orders, procedure orders and consult orders; where the start date of the order is 45 days before the date of the Encounter or 45 days after the date of theEncounter. The data comes from all OR treatment facilities. Test Date/Time Test Type Test Details Facility Name Jan 26, 2024 02:11 PM Consult Order RHEUMATOLO GY OUTPATIENT STL [facility] Feb 17, 2024 01:16 PM Consult Order PLASTIC SHELLEY RGERY OUTPT STL [facility] Mar 16, 2024 10:22 AM Consult Order COMMUNITY [facility]ARE-ST[facility] PLASTIC SURG [facility] Mar 21, 2024 03:48 PM Procedure Order CP EKG STL CP [facility] - [facility] Lab Results: +/- 30 days of the encounter This section includes the Chemistry and Hematology Lab Results on record with OR for the patient. Radiology Reports and Pathology Reports are provided separately, in subsequent sections. Lab Results This section contains the Chemistry/Hematology Results that were resulted 30 days before or 30 daysafter the date of the Encounter. Date/Time Source Result Type Result - Unit Interpretation Reference Range Comment Mar 05, 2024 11:10 AM [facility] TROPONIN I Specimen Type: PLASMA No comment entered. Ordering Provider: MUKESH MARINELLI Report Released Date/Time: Mar 05, 2024 11:04 AM Reporting Lab: [facility] [address] [facility] [place] [place] [address] Performing Lab: [facility] [address] [place] [phone] TROPONIN I <0.010 ng/mL 0-0.033 Mar 05, 2024 09:50 AM [facility] RESPIRATORY PCR PANEL Specimen Type: NASOPHARYNX Comment: The GameLayersArray RP Panel combines nested multiplex PCR and [...] available to the clinician evaluating the patient. TaggstrERespectanceKelly Hampton, ([phone]) Ordering Provider: MUKESH MARINELLI Report Released Date/Time: Mar 05, 2024 09:39 AM Reporting Lab: [facility] [address] [facility] [address] Performing Lab: [place] [address] [facility] [place] [address] *Adenovirus (BF) Not Detected Not Detected *Coronavirus [...] Not Detected Mar 05, 2024 09:00 AM [facility] CBC Specimen Type: BLOOD No comment entered. Ordering Provider: MUKESH MARINELLI Report Released Date/Time: Mar 05, 2024 08:52 AM Reporting Lab: [facility] [address] [facility] [place] [address] Performing Lab: [address] [address] WBC 7.1 10*3/uL 3.6-11.2 RBC 4.84 10*6/uL [...] 10*3/uL 0.00-0.20 Mar 05, 2024 09:00 AM [facility] TROPONIN I Specimen Type: PLASMA Comment: No hemolysis noted. Ordering Provider: MUKESH MARINELLI Report Released Date/Time: Mar 05, 2024 08:52 AM Reporting Lab: [place] [address] [facility] [address] Performing Lab: [address] [address] TROPONIN I 0.013 ng/mL 0-0.033 Mar 05, 2024 09:00 AM [facility] BRAIN NATRIURETIC PEPTIDE Specimen Type: PLASMA No comment entered. Ordering Provider: MUKESH MARINELLI Report Released Date/Time: Mar 05, 2024 09:39 AM Reporting Lab: [facility] [address] [facility] [address] Performing Lab: [address] [address] BRAIN NATRIURETIC PEPTIDE 16.2 pg/mL 0-100 Mar 05, 2024 09:00 AM [facility] TSH (MA-PB) Specimen Type: SERUM No comment entered. Ordering Provider: MUKESH MARINELLI Report Released Date/Time: Mar 05, 2024 09:39 AM Reporting Lab: [address] [place] [address] Performing Lab: [place] [address] [facility] [place] [address] TSH 0.283 u[IU]/mL L 0.47-5 FREE T4(REFLEX) 1.10 ng/mL 0.7-1.48 Mar 05, 2024 09:00 AM [facility] COMPREHENSIVE METABOLIC PANEL Specimen Type: PLASMA Comment: No hemolysis noted. Ordering Provider: MUKESH MARINELLI Report Released Date/Time: Mar 05, 2024 08:52 AM Reporting Lab: [place] [address] [facility] [place] [address] Performing Lab: [address] [address] CREATININE 0.92 mg/dL 0.7-1.3 UREA NITROGEN 15.6 [...] 108.5 >60 Jan 26, 2024 02:47 PM [facility] CRP Specimen Type: PLASMA No comment entered. Ordering Provider: KODAK MORTON Report Released Date/Time: Jan 26, 2024 02:11 PM Reporting Lab: [address] [address] Performing Lab: [address] [address] CRP 0.6 mg/dL H 0-0.5 Jan 26, 2024 02:47 PM [facility] ESR ISED(STL) Specimen Type: BLOOD No comment entered. Ordering Provider: KODAK MORTON Report Released Date/Time: Jan 26, 2024 02:11 PM Reporting Lab: [facility] [address] [place] [phone] Performing Lab: [facility] [address] [place] [phone] ESR ISED(STL) 35 mm/h H 0-14 Jan 26, 2024 02:47 PM [facility] RHEUMATOID FACTOR (STL) Specimen Type: SERUM No comment entered. Ordering Provider: KODAK MORTON Report Released Date/Time: Jan 26, 2024 02:19 PM Reporting Lab: [facility] [address] [place] [phone] Performing Lab: [facility] [address] [place] [phone] RHEUMATOID FACTOR (STL) <15.0 0-29 Radiology Reports: [...] the Encounter. The data comes from all OR treatment facilities. Date/Time Radiology Report Provider Source Mar 05, 2024 10:[address] PE CHEST W/3D: JORDYN BAILEY [id number] -1985 M Ex Date: MAR 05, 2024@10:00 Req Phys: MUKESH MARINELLI Loc: [facility] 2ND SHIFT (R Img Loc: [facility] Service: [address] [address] (Case [id number] COMPLETE) CT THORAX W/CONT (PE) (CT Detailed) CPT:30219 Contrast Media : unspecified contrast media Reason [...] 05, 2024 Date Verified: MAR 05, 2024 Transmitter Tester E-Sig: Report: CT THORAX W/CONT (PE) [PRINTSET] HISTORY: chest pain, tachycardia COMPARISON: 02/12/2024 TECHNIQUE: Helical CT of the chest, with multiplanar reformats including maximum intensity projection (MIP) reconstructions, was performed at the local OR facility. 1529 images were received by the [place] National Teleradiology Program (NTP) for interpretation. RADIATION [...] excluded. 3. Cardiomegaly. READING PHYSICIAN: Wilfred Roberts -[phone] 03/05/2024 7:32 [facility] National Teleradiology Program [phone] (For Medical Practitioner Use Only) Attention Patients / Veterans: If you have questions or concerns about these test results, please contact your ordering provider or primary care team. Primary Interpreting Staff: RADIOLOGY,OUTSIDE SERVICE, Staff Physician / RADIOLOGY,OUTSIDE SERVICE [facility] Mar 05, 2024 08:59 AM CHEST PORTABLE: JORDYN BAILEY [id number] -1985 M Exm Date: MAR 05, 2024@08:59 Req Phys: MARINELLIMUKESH S Pat Loc: [facility] 2ND SHIFT (R Img Loc: -MAIN RADIOLOGY SUITE Service: Unknown [address] [address] (Case [id number] COMPLETE) CHEST PORTABLE (RAD Detailed) CPT:82859 Proc Modifiers : Portable Reason for Study: chest pain Clinical History: Report Status: Verified Date Reported: MAR 05, 2024 Date Verified: MAR 05, 2024 Transmitter Tester E-Sig: Report: CHEST PORTABLE Comparison: 05/20/2023, 02/12/2024 Clinical History: chest pain The study was performed and supervised at the local OR facility, and subsequently transmitted to [facility] NTP (National Teleradiology Program) for interpretation. Impression: Lungs: Small left effusion with left basilar opacity which may represent atelectasis or consolidation.. Cardiomediastinal silhouette: No enlargement of the cardiomediastinal silhouette. Bones and soft tissues: No acute finding. READING PHYSICIAN: Sandeep Kraft M.D. -[phone] 03/05/2024 7:29 PST [facility] National Teleradiology Program [phone] (For Medical Practitioner Use Only) Attention Patients / Veterans: If you have questions or concerns about these test results, please contact your ordering provider or primary care team. Primary Interpreting Staff: RADIOLOGY,OUTSIDE SERVICE, Staff Physician / RADIOLOGY,OUTSIDE SERVICE [facility] Feb 12, 2024 02:[address] THORAX W/O CONT HIGH RES: JORDYN BAILEY [id number] -1985 M Exm Date: FEB 12, 2024@14:18 Req Phys: FLOYD WOO Pat Loc: -PULM PA 1 (Req'g Loc) Img Loc: -CT IMAGING Service: Unknown [facility] [address] [place] [address] (Case [id number] COMPLETE) CT THORAX W/O CONT HIGH RES (CT Detailed) CPT:37143 Reason for Study: chronic cough, exertional dyspnea, + hazardous exposure hx Clinical History: Responsible Attending: floyd woo PA-C Attending Contact Number: [phone] Resident Contact Number: Allergies listed in CPRS chart: SHELLFISH Creatinine: CREATININE 0.95 mg/dL 11/25/2023 11:00 /eGFR: STL EGFR (within one year). CREATININE 0.95 mg/dL (11/25/23 11:00) Wt: 218.3 lb [99.02 kg] (01/14/2024 08:55) History of: Renal failure, chronic or acute renal disease: NO Report Status: Verified Date Reported: FEB 15, 2024 Date Verified: FEB 15, 2024 Transmitter Tester E-Sig:/ES/Lynn Castro MD Report: CASE #: [id number] DATE:02/12/2024 4:23 PM CLINICAL HISTORY:chronic cough, exertional [...] Primary Interpreting Staff: Lynn Castro MD, Radiologist (Transmitter Tester) /LYNN ONEILL [facility] Jan 28, 2024 02:20 PM HAND,RIGHT,3 OR MORE VIEWS: JORDYN BAILEY [id number] -1985 M Exm Date: JAN 28, 2024@14:20 Req Phys: KODAK MORTON Loc: -[facility] PACT B5 NEW PATIENT (Re Img Loc: -MAIN RADIOLOGY SUITE Service: Unknown [facility] [address] [place] [address] (Case [id number] COMPLETE) HAND,RIGHT,3 OR MORE VIEWS (RAD Detailed) CPT:11099 Proc Modifiers : RIGHT Reason for Study: right hand feell stiff and pain specialy in morning Clinical History: right hand feell stiff and pain specialy in morning Report Status: Verified Date Reported: JAN 29, 2024 Date Verified: JAN 29, 2024 Transmitter Tester E-Sig:/ES/ART ENCARNACION MD Report: Case #[id number]. Right hand examination. Finding: Three views of the right hand examination shows no fracture dislocation. No evidence of lytic or blastic bony lesion. No joint space narrowing or marginal erosion. No soft tissue swelling, radiopaque foreign body or abnormal calcification. Impression: No fracture dislocation or arthritic change. Primary Interpreting Staff: ART ENCARNACION MD, Staff Physician - Radiologist (Transmitter Tester) /ART ANDRADE [facility] Jan 28, 2024 02:20 PM WRIST,RIGHT,3 OR MORE VIEWS: JORDYN BAILEY [id number] -1985 M Exm Date: JAN 28, 2024@14:20 Req Phys: KODAK MORTON Pat Loc: [facility] PACT B5 NEW PATIENT (Re Img Loc: -MAIN RADIOLOGY SUITE Service: [address] [address] (Case [id number] COMPLETE) WRIST,RIGHT,3 OR MORE VIEWS (RAD Detailed) CPT:89732 Proc Modifiers : RIGHT Reason for Study: right writs pain Clinical History: c/o right wroist pain Report Status: Verified Date Reported: JAN 29, 2024 Date Verified: JAN 29, 2024 Transmitter Tester E-Sig:/ES/ART ENCARNACION MD Report: Case #[id number]. Right [...] ART ENCARNACION MD, Staff Physician - Radiologist (Transmitter Tester) /ART ANDRADE [facility] Jan 28, 2024 02:20 PM HAND,LEFT,3 OR MORE VIEWS: JORDYN BAILEY [id number] -1985 M Exm Date: JAN 28, 2024@14:20 Req Phys: KODAK MORTON Pat Loc: [facility] PACT B5 NEW PATIENT (Re Img Loc: [facility] RADIOLOGY SUITE Service: Unknown [facility] [address] [place] [address] (Case [id number] COMPLETE) HAND,LEFT,3 OR MORE VIEWS (RAD Detailed) CPT:43023 Proc Modifiers : LEFT Reason for Study: left hand feell stiff and pain specialy in morning Clinical History: eft hand feell stiff and pain specialy in morning Report Status: Verified Date Reported: JAN 29, 2024 Date Verified: JAN 29, 2024 Transmitter Tester E-Sig:/ES/ART ENCARNACION MD Report: Case #[id number]. Left hand examination. Finding: Three views of the left hand examination shows no fracture dislocation. No evidence of lytic or blastic bony lesion. No joint space narrowing or marginal erosion. No soft tissue swelling, radiopaque foreign body or abnormal calcification. Impression: No fracture dislocation or arthritic change. Primary Interpreting Staff: ART ENCARNACION MD, Staff Physician - Radiologist (Transmitter Tester) /ART ANDRADE [facility] Jan 28, 2024 02:20 PM WRIST,LEFT, 3 OR MORE VIEWS: JORDYN BAILEY ANTHONY [id number] -1985 M Exm Date: JAN 28, 2024@14:20 Req Phys: KODAK MORTON Loc: [facility] PACT B5 NEW PATIENT (Re Img Loc: [facility] RADIOLOGY SUITE Service: Unknown [facility] [address] [place] [address] (Case [id number] COMPLETE) WRIST,LEFT, 3 OR MORE VIEWS (RAD Detailed) CPT:42450 Proc Modifiers : LEFT Reason for Study: c/o left wrist pain Clinical History: c/o left wrist pain Report Status: Verified Date Reported: JAN 29, 2024 Date Verified: JAN 29, 2024 Transmitter Tester E-Sig:/ES/ART ENCARNACION MD Report: Case #[id number]. Left [...] ART ENCARNACION MD, Staff Physician - Radiologist (Transmitter Tester) /ART ANDRADE [facility] Encounter Notes: All associated encounter notes This section contains the clinical notes associated to the Encounter. Date/Time Encounter Note(s) Provider Source Feb 11, 2024 10:45 AM CONSULT: LOCAL TITLE: VIDEO DEVICE ORDER CONSULT RESULT STANDARD TITLE: CONSULT DATE OF NOTE: FEB 11, 2024@10:45 ENTRY DATE: FEB 11, 2024@10:45:19 AUTHOR: LAURITA MEDRANO EXP COSIGNER: URGENCY: STATUS: COMPLETED will receive a [employer] loaned device and set-up call through the [employer]. Serial number of device: [id number] Shipping date: Jan Estimated arrival date: Feb Estimated call date from Connected Device Support Team to set up the device/complete a test call: Jan /luis MEDRANO PSA/ADPAC Signed: 02/11/2024 10:46 Receipt Acknowledged By: 02/11/2024 10:57 /es/ LAURITA LEMON LCSW [facility]
--- OUTSIDE RECORDS SUMMARY | 2024-03-31 01:07 | XMS_ITS | Encounter Summary ---
Author Name [facility] [facility] [place] [facility] [facility] [place] Address [address] [place] [address] Care Team Providers Care Talent Acquisition Manager Name Role Phone KODAK MORTON Primary [...] CHOIC E PREFE RR Apr 13, 2020 [id number] [phone] STEPHANIE BAILEYON PATIENT ANTHEM [employer] [place] PREFERRED PROVIDER ORGANIZAT ION (PPO) BLUE CHOIC E PREFE RR Apr 13, 2020 [id number] [phone] STEPHANIE BAILEYON PATIENT ANTHEM [employer] [place] PREFERRED PROVIDER ORGANIZAT ION (PPO) BLUE CHOIC E PREFE RR Apr 13, 2020 [id number] [phone] BOOGIE BAILEY PATIENT [employer] [place] PREFERRED PROVIDER ORGANIZAT ION (PPO) BLUE CHOIC E PREFE RR Apr 13, 2020 [id number] [phone] BOOGIE BAILEY PATIENT PRIME THERAPEUTI CS RX PRESCRIPT ION [employer] L [place] Apr 13, 2020 [id number] [phone] BOOGIE BAILEY PATIENT [facility] 2018 TRICA RE May 10, 2019 SELECT [id number] BOOGIE BAILEY PATIENT Selected Encounter This section includes the information on record at [place] for the Encounter. Date/Time Encounter Type Encounter Description Reason Provider Source Feb 08, 2024 09:00 AM MUSCLE TEST NONPARASPINAL EMG - ELECTROMYOGRAM ICD-10-CM G56.03 Carpal tunnel syndrome, bilateral upper limbs AG,YAKUT IHE Encounter Template Text not used by [place] Assessments - Encounter Diagnoses This section includes the primary and secondary diagnoses documented for the Encounter. Date/Time Primary/Secondary Diagnosis Diagnosis Name Provider Source Feb 08, 2024 10:06 AM PRIMARY Carpal tunnel syndrome, bilateral upper limbs AG,YAKUT [facility] Plan of Treatment: Future Appointments [...] 12, 2024 02:30 PM AMBULATORY - NONE [facility] Feb 17, 2024 01:00 PM AMBULATORY - MEDICINE [facility] Feb 25, 2024 09:30 AM AMBULATORY - MEDICINE [facility] Mar 05, 2024 08:43 AM AMBULATORY - MEDICINE [facility] Mar 16, 2024 10:15 AM [facility] Mar 21, 2024 12:14 PM AMBULATORY - MEDICINE [facility] Apr 01, 2024 10:00 AM AMBULATORY - PSYCHIATRY [facility] Apr 28, 2024 03:00 PM AMBULATORY - MEDICINE [facility] May 05, 2024 11:30 AM AMBULATORY - MEDICINE [facility] May 27, 2024 11:00 AM AMBULATORY - MEDICINE [facility] Active, Pending, and Scheduled Orders This section [...] Consult Order RHEUMATOLO GY OUTPATIENT STL Cons [facility] Feb 17, 2024 01:16 PM Consult Order PLASTIC SHELLEY RGERY OUTPT STL [facility] [employer] Mar 16, 2024 10:22 AM Consult Order [facility] Mar 21, 2024 03:48 PM Procedure Order CP EKG STL CP EKG - STL Proc [facility] Lab Results: +/- 30 days of the [...] Range Comment Mar 05, 2024 11:10 AM [facility] TROPONIN I Specimen Type: PLASMA No comment entered. Ordering Provider: MUKESH MARINELLI Report Released Date/Time: Mar 05, 2024 11:04 AM Reporting Lab: [facility] [address] [facility] [address] Performing Lab: [facility] [address] [facility] [address] TROPONIN I <0.010 ng/mL 0-0.033 Mar 05, 2024 09:50 AM [facility] RESPIRATORY PCR PANEL Specimen Type: NASOPHARYNX Comment: The [employer]ient [employer] RP Panel combines nested multiplex PCR and [...] the clinician evaluating the patient. Claudio GREEN, (524) Ordering Provider: MUKESH MARINELLI Report Released Date/Time: Mar 05, 2024 09:39 AM Reporting Lab: [facility] [address] [facility] [address] Performing Lab: [place] [address] [facility] [address] *Adenovirus (BF) Not Detected Not Detected *Coronavirus [...] Not Detected Mar 05, 2024 09:00 AM [facility] CBC Specimen Type: BLOOD No comment entered. Ordering Provider: MUKESH MARINELLI Report Released Date/Time: Mar 05, 2024 08:52 AM Reporting Lab: [facility] [address] [facility] [address] Performing Lab: [facility] [address] [facility] [address] WBC 7.1 10*3/uL 3.6-11.2 RBC 4.84 10*6/uL [...] 10*3/uL 0.00-0.20 Mar 05, 2024 09:00 AM [facility] TROPONIN I Specimen Type: PLASMA Comment: No hemolysis noted. Ordering Provider: MUKESH MARINELLI Report Released Date/Time: Mar 05, 2024 08:52 AM Reporting Lab: [address] [address] Performing Lab: [address] [address] TROPONIN I 0.013 ng/mL 0-0.033 Mar 05, 2024 09:00 AM [facility] TSH (MA-PB) Specimen Type: SERUM No comment entered. Ordering Provider: MUKESH MARINELLI Report Released Date/Time: Mar 05, 2024 09:39 AM Reporting Lab: [address] [address] Performing Lab: [address] [address] TSH 0.283 u[IU]/mL L 0.47-5 FREE T4(REFLEX) 1.10 ng/mL 0.7-1.48 Mar 05, 2024 09:00 AM [facility] COMPREHENSIVE METABOLIC PANEL Specimen Type: PLASMA Comment: No hemolysis noted. Ordering Provider: MUKESH MARINELLI Report Released Date/Time: Mar 05, 2024 08:52 AM Reporting Lab: [place] [address] [facility] [address] Performing Lab: [place] [address] [facility] [address] CREATININE 0.92 mg/dL 0.7-1.3 UREA NITROGEN 15.6 [...] 108.5 >60 Mar 05, 2024 09:00 AM [facility] BRAIN NATRIURETIC PEPTIDE Specimen Type: PLASMA No comment entered. Ordering Provider: MUKESH MARINELLI Report Released Date/Time: Mar 05, 2024 09:39 AM Reporting Lab: [facility] [address] [facility] [address] Performing Lab: [place] [address] [facility] [address] BRAIN NATRIURETIC PEPTIDE 16.2 pg/mL 0-100 Jan 26, 2024 02:47 PM [facility] CRP Specimen Type: PLASMA No comment entered. Ordering Provider: KODAK MORTON Report Released Date/Time: Jan 26, 2024 02:11 PM Reporting Lab: [place] [address] [facility] [address] Performing Lab: [facility] [address] [facility] [address] CRP 0.6 mg/dL H 0-0.5 Jan 26, 2024 02:47 PM [facility] ESR ISED(STL) Specimen Type: BLOOD No comment entered. Ordering Provider: KODAK MORTON Report Released Date/Time: Jan 26, 2024 02:11 PM Reporting Lab: [place] [address] [facility] [address] Performing Lab: [facility] [address] [facility] [address] ESR ISED(STL) 35 mm/h H 0-14 Jan 26, 2024 02:47 PM [facility] RHEUMATOID FACTOR (STL) Specimen Type: SERUM No comment entered. Ordering Provider: KODAK MORTON Report Released Date/Time: Jan 26, 2024 02:19 PM Reporting Lab: [address] [address] Performing Lab: [place] [address] [facility] [address] RHEUMATOID FACTOR (STL) <15.0 0-29 Social History: [...] 26, 2021 03:59 PM VA-TOBACCO NEVER USED [facility] Radiology Reports: +/- 30 days of [...] AM CT PE CHEST W/3D: JORDYN BAILEY [id number] -1985 M Exm Date: MAR 05, 2024@10:00 Req Phys: MUKESH MARINELLI Loc: [facility]-EMERGENCY DEPT 2ND SHIFT (R Img Loc: [facility]-CT IMAGING [facility] Service: Unknown [facility], [facility] [address] [place] [address] (Case [id number] COMPLETE) CT THORAX W/CONT (PE) (CT Detailed) CPT:53855 Contrast Media : unspecified contrast media Reason [...] 05, 2024 Date Verified: MAR 05, 2024 Space Systems Operations Superintendent E-Sig: Report: CT THORAX W/CONT (PE) [PRINTSET] HISTORY: chest pain, tachycardia COMPARISON: 02/12/2024 TECHNIQUE: Helical CT of the chest, with multiplanar reformats including maximum intensity projection (MIP) reconstructions, was performed at the local [place] facility. 1529 images were received by the [place] National Teleradiology Program (NTP) for interpretation. RADIATION [...] excluded. 3. Cardiomegaly. READING PHYSICIAN: Wilfred Roberts -[phone] 03/05/2024 7:32 [facility] National Teleradiology Program [phone] (For Medical Practitioner Use Only) Attention Patients / Veterans: If you have questions or concerns about these test results, please contact your ordering provider or primary care team. Primary Interpreting Staff: RADIOLOGY,OUTSIDE SERVICE, Staff Physician / RADIOLOGY,OUTSIDE SERVICE [facility] Mar 05, 2024 08:59 AM CHEST PORTABLE: JORDYN BAILEY [id number] -1985 Exm Date: MAR 05, 2024@08:59 Req Phys: MUKESH MARINELLI Loc: [facility]-EMERGENCY DEPT 2ND SHIFT (R Img Loc: -MAIN RADIOLOGY SUITE Service: [facility], [facility] [address] [place] [address] (Case [id number] COMPLETE) CHEST PORTABLE (RAD Detailed) CPT:41538 Proc Modifiers : Portable Reason for Study: chest pain Clinical History: Report Status: Verified Date Reported: MAR 05, 2024 Date Verified: MAR 05, 2024 Space Systems Operations Superintendent E-Sig: Report: CHEST PORTABLE Comparison: 05/20/2023, 02/12/2024 Clinical History: chest pain The study was performed and supervised at the local [place] facility, and subsequently transmitted to [facility] NTP (National Teleradiology Program) for interpretation. Impression: Lungs: Small left effusion with left basilar opacity which may represent atelectasis or consolidation.. Cardiomediastinal silhouette: No enlargement of the cardiomediastinal silhouette. Bones and soft tissues: No acute finding. READING PHYSICIAN: Sandeep Kraft M.D. -[phone] 03/05/2024 7:29 PST [facility] National Teleradiology Program [phone] (For Medical Practitioner Use Only) Attention Patients / Veterans: If you have questions or concerns about these test results, please contact your ordering provider or primary care team. Primary Interpreting Staff: RADIOLOGY,OUTSIDE SERVICE, Staff Physician / RADIOLOGY,OUTSIDE SERVICE [facility] Feb 12, 2024 02:[address] THORAX W/O CONT HIGH RES: JORDYN BAILEY [id number] -1985 M Exm Date: FEB 12, 2024@14:18 Req Phys: FLOYD WOO Loc: [facility]-PULM PA 1 (Req'g Loc) Img Loc: [facility]CT IMAGING [facility] Service: Unknown [facility] [address] [place] [address] (Case [id number] COMPLETE) CT THORAX W/O CONT HIGH RES (CT Detailed) CPT:56088 Reason for Study: chronic cough, exertional dyspnea, + hazardous exposure hx Clinical History: Responsible Attending: floyd woo PA-C Attending Contact Number: [phone] Resident Contact Number: Allergies listed in CPRS chart: SHELLFISH Creatinine: CREATININE 0.95 mg/dL 11/25/2023 11:00 /eGFR: STL EGFR (within one year). CREATININE 0.95 mg/dL (11/25/23 11:00) Wt: 218.3 lb [99.02 kg] (01/14/2024 08:55) History of: Renal failure, chronic or acute renal disease: NO Report Status: Verified Date Reported: FEB 15, 2024 Date Verified: FEB 15, 2024 Space Systems Operations Superintendent E-Sig:/ES/Lynn Castro MD Report: CASE #: [id number] DATE:02/12/2024 4:23 PM CLINICAL HISTORY:chronic cough, exertional [...] Primary Interpreting Staff: Lynn Castro MD, Radiologist (Space Systems Operations Superintendent) /LYNN ONEILL [facility] Jan 28, 2024 02:20 PM HAND,RIGHT,3 OR MORE VIEWS: JORDYN BAILEY [id number] -1985 M Exm Date: JAN 28, 2024@14:20 Req Phys: KODAK MORTON Pat Loc: [facility] PACT B5 NEW PATIENT (Re Img Loc: [facility] RADIOLOGY SUITE Service: Unknown [facility] [address] [place] [address] (Case [id number] COMPLETE) HAND,RIGHT,3 OR MORE VIEWS (RAD Detailed) CPT:02349 Proc Modifiers : RIGHT Reason for Study: right hand feell stiff and pain specialy in morning Clinical History: right hand feell stiff and pain specialy in morning Report Status: Verified Date Reported: JAN 29, 2024 Date Verified: JAN 29, 2024 Space Systems Operations Superintendent E-Sig:/ES/ART ENCARNACION MD Report: Case #[id number]. Right hand examination. Finding: Three views of the right hand examination shows no fracture dislocation. No evidence of lytic or blastic bony lesion. No joint space narrowing or marginal erosion. No soft tissue swelling, radiopaque foreign body or abnormal calcification. Impression: No fracture dislocation or arthritic change. Primary Interpreting Staff: ART ENCARNACION MD, Staff Physician - Radiologist (Space Systems Operations Superintendent) /ART ANDRADE [facility] Jan 28, 2024 02:20 PM WRIST,RIGHT,3 OR MORE VIEWS: JORDYN BAILEY [id number] -1985 M Exm Date: JAN 28, 2024@14:20 Req Phys: KODAK MORTON Loc: [facility] PACT B5 NEW PATIENT (Re Img Loc: [facility] RADIOLOGY SUITE Service: Unknown [facility] [address] [place] [address] (Case [id number] COMPLETE) WRIST,RIGHT,3 OR MORE VIEWS (RAD Detailed) CPT:57492 Proc Modifiers : RIGHT Reason for Study: right writs pain Clinical History: c/o right wroist pain Report Status: Verified Date Reported: JAN 29, 2024 Date Verified: JAN 29, 2024 Space Systems Operations Superintendent E-Sig:/FRANCY/ART ENCARNACION MD Report: Case #[id number]. Right [...] ART ENCARNACION MD, Staff Physician - Radiologist (Space Systems Operations Superintendent) /ART ANDRADE [facility] Jan 28, 2024 02:20 PM WRIST,LEFT, 3 OR MORE VIEWS: JORDYN BAILEY ANTHONY [id number] -1985 M Exm Date: JAN 28, 2024@14:20 Req Phys: KODAK MORTON Pat Loc: [facility] PACT B5 NEW PATIENT (Re Img Loc: -MAIN RADIOLOGY SUITE Service: [address] [address] (Case [id number] COMPLETE) WRIST,LEFT, 3 OR MORE VIEWS (RAD Detailed) CPT:80158 Proc Modifiers : LEFT Reason for Study: c/o left wrist pain Clinical History: c/o left wrist pain Report Status: Verified Date Reported: JAN 29, 2024 Date Verified: JAN 29, 2024 Space Systems Operations Superintendent E-Sig:/FRANCY/ART ENCARNACION MD Report: Case #[id number]. Left [...] ART ENCARNACION MD, Staff Physician - Radiologist (Space Systems Operations Superintendent) /ART ANDRADE [facility] Jan 28, 2024 02:20 PM HAND,LEFT,3 OR MORE VIEWS: JORDYN BAILEY ANTHONY [id number] -1985 M Exm Date: JAN 28, 2024@14:20 Req Phys: KODAK MORTON Loc: -[facility] PACT B5 NEW PATIENT (Re Img Loc: -MAIN RADIOLOGY SUITE Service: Unknown [address] [address] (Case [id number] COMPLETE) HAND,LEFT,3 OR MORE VIEWS (RAD Detailed) CPT:17196 Proc Modifiers : LEFT Reason for Study: left hand feell stiff and pain specialy in morning Clinical History: eft hand feell stiff and pain specialy in morning Report Status: Verified Date Reported: JAN 29, 2024 Date Verified: JAN 29, 2024 Space Systems Operations Superintendent E-Sig:/ES/ART ENCARNACION MD Report: Case #[id number]. Left hand examination. Finding: Three views of the left hand examination shows no fracture dislocation. No evidence of lytic or blastic bony lesion. No joint space narrowing or marginal erosion. No soft tissue swelling, radiopaque foreign body or abnormal calcification. Impression: No fracture dislocation or arthritic change. Primary Interpreting Staff: ART ENCARNACION MD, Staff Physician - Radiologist (Space Systems Operations Superintendent) /ART ANDRADE [facility] Jan 09, 2024 12:[address] CERVICAL SPINE W/O CONT: JORDYN BAILEY ANTHONY [id number] -1985 M Exm Date: JAN 09, 2024@12:18 Req Phys: BING ORTIZ Loc: -EMERGENCY DEPT 2ND SHIFT (R Img Loc: -CT IMAGING Service: Unknown [address] [address] (Case [id number] COMPLETE) CT CERVICAL SPINE W/O CONT (CT Detailed) CPT:21737 Reason for Study: Neck pain, bilateral arm pain/weakness Clinical History: Responsible Attending: Yovany Attending Contact Number: [phone] Resident Contact Number: Neck pain, bilateral arm pain/weakness Allergies listed in CPRS chart: SHELLFISH Creatinine/eGFR: STL EGFR (within one year). CREATININE 0.95 mg/dL (11/25/23 11:00) Wt: 220.4 lb [99.97 kg] (11/25/2023 10:03) History of: Renal failure, chronic or acute renal disease: NO Report Status: Verified Date Reported: JAN 09, 2024 Date Verified: JAN 09, 2024 Space Systems Operations Superintendent E-Sig: Report: CT CERVICAL SPINE W/O CONT [...] dedicated MRI. READING PHYSICIAN: Ifrah Guzmán M.D. -[id number] 01/09/2024 11:23 PDT [facility] National Teleradiology Program [phone] (For Medical Practitioner Use Only) Attention Patients / Veterans: If you have questions or concerns about these test results, please contact your ordering provider or primary care team. Primary Interpreting Staff: RADIOLOGY,OUTSIDE SERVICE, Staff Physician / RADIOLOGY,OUTSIDE SERVICE [facility] Encounter Notes: All associated encounter notes This section contains the clinical notes associated to the Encounter. Date/Time Encounter Note(s) Provider Source Feb 08, 2024 10:06 AM ELECTROPHYSIOLOGY DIAGNOSTIC STUDY REPORT: LOCAL TITLE: EMG PROCEDURE REPORT ST STANDARD TITLE: ELECTROPHYSIOLOGY DIAGNOSTIC STUDY REPORT DATE OF NOTE: FEB 08, 2024@10:06:11 ENTRY DATE: FEB 08, 2024@10:06:11 AUTHOR: CLINICAL,DEVICE PRO EXP COSIGNER: URGENCY: STATUS: COMPLETED PROCEDURE SUMMARY CODE: Machine Resulted DATE/TIME PERFORMED: FEB 08, 2024@09:12:5 DOCUMENT IN VISTA IMAGING SEE FULL REPORT IN VISTA IMAGING SIGNATURE NOT REQUIRED SEE SIGNATURE IN VISTA IMAGING Administrative Closure: 02/08/2024 by: CLINICAL,DEVICE PROXY SERVICE CLINICAL,DEVICE PROXY SERVICE [facility]
--- OUTSIDE RECORDS SUMMARY | 2024-03-31 01:08 | XMS_ITS | Encounter Summary ---
Author Name [facility] [facility] [place] [facility] [place] Address [address] [place] [address] Care Team Providers Care Court Reporter Name Role Phone KODAK MORTON Primary Care [...] CHOIC E PREFE RR Apr 13, 2020 [id number] [phone] BOOGIE BAILEY ANDON PATIENT ANTHEM [employer] PREFERRED PROVIDER ORGANIZAT ION (PPO) BLUE CHOIC E PREFE RR Apr 13, 2020 [id number] [phone] LYNN,BOOGIE ANDON PATIENT ANTHEM [employer] PREFERRED PROVIDER ORGANIZAT ION (PPO) BLUE CHOIC E PREFE RR Apr 13, 2020 [id number] [phone] BOOGIE BAILEY ANDON PATIENT [place] PREFERRED PROVIDER ORGANIZAT ION (PPO) BLUE CHOIC E PREFE RR Apr 13, 2020 [id number] [phone] LYNN,BR ANDON PATIENT PRIME THERAPEUTI CS RX PRESCRIPT ION BCBSI L [place] Apr 13, 2020 BCBSIL [id number] [phone] BOOGIE BAILEY PATIENT [place] 2018 TRICA RE May 10, 2019 SELECT [id number] BOOGIE BAILEY PATIENT Selected Encounter This section includes the information on record at [place] for the Encounter. Date/Time Encounter Type Encounter Description Reason Provider Source Feb 25, 2024 09:30 AM Outpatient Encounter TELEPHONE PRIMARY CARE ICD-10-CM G47.00 Insomnia, unspecified CHRISTOFER MORTON Valentin Encounter Template Text not used by [place] Assessments - Encounter Diagnoses This section includes the primary and secondary diagnoses documented for the Encounter. Date/Time Primary/Secondary Diagnosis Diagnosis Name Provider Source Feb 25, 2024 09:30 AM PRIMARY Insomnia, unspecified CHRISTOFER MORTON [facility] Feb 25, 2024 09:30 AM SECONDARY Unsp symptoms and signs involving the musculoskeletal system [facility] Plan of Treatment: Future Appointments (+ [...] Date/Time Appointment Type Appointme nt Facility Name Mar 05, 2024 08:43 AM AMBULATORY - MEDICINE [facility] Mar 16, 2024 10:15 AM AMBULATORY - SURGERY [facility] Mar 21, 2024 12:14 PM AMBULATORY - MEDICINE [facility] Apr 01, 2024 10:00 AM AMBULATORY - PSYCHIATRY [facility] Apr 28, 2024 03:00 PM AMBULATORY - MEDICINE [facility] May 05, 2024 11:30 AM AMBULATORY - MEDICINE [facility] May 27, 2024 11:00 AM AMBULATORY - MEDICINE [facility] Active, Pending, and Scheduled Orders This [...] Consult Order RHEUMATOLO GY OUTPATIENT STL [facility] Feb 17, 2024 01:16 PM Consult Order PLASTIC SHELLEY RGERY OUTPT STL [facility] Mar 16, 2024 10:22 AM Consult Order COMMUNITY CARE-STL PLASTIC SURG [facility] Mar 21, 2024 03:48 PM Procedure Order CP EKG STL CP EKG - [facility] Lab Results: +/- 30 days [...] - Unit Interpretation Reference Range Comment Mar 21, 2024 12:30 PM [facility] COMPREHENSIVE METABOLIC PANEL Specimen Type: PLASMA Comment: No hemolysis noted. Ordering Provider: SUSAN BROWN Report Released Date/Time: Mar 21, 2024 12:23 PM Reporting Lab: [facility] [address] [facility] [address] Performing Lab: [facility] [address] [facility] [address] CREATININE 1.00 mg/dL 0.7-1.3 UREA NITROGEN 18.1 mg/dL 9.0-25.0 GLUCOSE 105 mg/dL H 72-99 SODIUM 136 meq/L 136-145 POTASSIUM 4.2 meq/L 3.5-5 CHLORIDE 102 meq/L 98-107 CARBON DIOXIDE 23 meq/L 22-31 CALCIUM 9.7 mg/dL 8.4-10.4 PROTEIN 9.6 g/dL H 6-8.6 ALBUMIN 3.4 g/dL 3.4-5 TOTAL BILIRUBIN 1.1 mg/dL 0.2-1.2 ALKALINE PHOSPHATASE 109 U/L 40-150 AST/SGOT 48 U/L H 5-34 ALT/SGPT 37 U/L 8-40 EGFR (CKD-EPI 2020) 98.2 >60 Mar 21, 2024 12:30 PM [facility] CBC Specimen Type: BLOOD No comment entered. Ordering Provider: SUSAN BROWN Report Released Date/Time: Mar 21, 2024 12:23 PM Reporting Lab: [facility] [address] [facility] [address] Performing Lab: [address] [address] WBC 7.2 10*3/uL 3.6-11.2 RBC 4.24 10*6/uL 4.10-5.70 HGB 11.1 g/dL L 13.1-16.8 HCT 33.9 L 38.2-48.4 MCV 80.0 fL 80.0-100.0 MCH 26.2 pg L 27.0-34.0 MCHC 32.7 g/dL L 33.0-36.0 PLT 352 10*3/uL 150-400 MPV 10.0 fL 7.5-11.2 RDW 13.4 11.8-15.1 LYMPHOCYTES, AUTO % 17 MONOCYTES, AUTO % 7 NEUTROPHILS, AUTO % 74 EOSINOPHILS, AUTO % 2 BASOPHILS, AUTO % 0 LYMPHOCYTES, ABSOLUTE 1.22 10*3/uL 0.77-4.50 MONOCYTES, ABSOLUTE 0.48 10*3/uL 0.19-0.80 NEUTROPHILS, ABSOLUTE 5.34 10*3/uL 2.10-8.00 EOSINOPHILS, ABSOLUTE 0.13 10*3/uL 0.00-0.60 BASOPHILS, ABSOLUTE 0.01 10*3/uL 0.00-0.20 Mar 05, 2024 11:10 AM [facility] TROPONIN I Specimen Type: PLASMA No comment entered. Ordering Provider: MUKESH MARINELLI Report Released Date/Time: Mar 05, 2024 11:04 AM Reporting Lab: [address] [address] Performing Lab: [facility] [place] [facility] [address] TROPONIN I <0.010 ng/mL 0-0.033 Mar 05, 2024 09:50 AM [facility] RESPIRATORY PCR PANEL Specimen Type: NASOPHARYNX Comment: The Scurri RP Panel combines nested multiplex PCR and [...] available to the clinician evaluating the patient. Adjacent ApplicationsGLORIA Mode De FaireKelly Skinner, (438) Ordering Provider: MUKESH MARINELLI Report Released Date/Time: Mar 05, 2024 09:39 AM Reporting Lab: [place] [address] Performing Lab: [place] [address] *Adenovirus (BF) Not Detected Not Detected *Coronavirus [...] parapertussis (BF) Not Detected Not Detected COVID-19 (Adjacent ApplicationsFIRE) Not Detected Not Detected Mar 05, 2024 09:00 AM [facility] CBC Specimen Type: BLOOD No comment entered. Ordering Provider: MUKESH MARINELLI Report Released Date/Time: Mar 05, 2024 08:52 AM Reporting Lab: [facility] [address] [facility] [address] Performing Lab: [address] [address] WBC 7.1 10*3/uL 3.6-11.2 RBC 4.84 10*6/uL [...] 10*3/uL 0.00-0.20 Mar 05, 2024 09:00 AM [facility] TROPONIN I Specimen Type: PLASMA Comment: No hemolysis noted. Ordering Provider: MUKESH MARINELLI Report Released Date/Time: Mar 05, 2024 08:52 AM Reporting Lab: [address] [address] Performing Lab: [address] [address] TROPONIN I 0.013 ng/mL 0-0.033 Mar 05, 2024 09:00 AM [facility] BRAIN NATRIURETIC PEPTIDE Specimen Type: PLASMA No comment entered. Ordering Provider: MUKESH MARINELLI Report Released Date/Time: Mar 05, 2024 09:39 AM Reporting Lab: [address] [address] Performing Lab: [address] [address] BRAIN NATRIURETIC PEPTIDE 16.2 pg/mL 0-100 Mar 05, 2024 09:00 AM [facility] COMPREHENSIVE METABOLIC PANEL Specimen Type: PLASMA Comment: No hemolysis noted. Ordering Provider: MUKESH MARINELLI Report Released Date/Time: Mar 05, 2024 08:52 AM Reporting Lab: [address] [address] Performing Lab: [address] [address] CREATININE 0.92 mg/dL 0.7-1.3 UREA NITROGEN 15.6 [...] 108.5 >60 Mar 05, 2024 09:00 AM [facility] TSH (MA-PB) Specimen Type: SERUM No comment entered. Ordering Provider: MUKESH MARINELLI Report Released Date/Time: Mar 05, 2024 09:39 AM Reporting Lab: [address] [address] Performing Lab: [address] [address] TSH 0.283 u[IU]/mL L 0.47-5 FREE T4(REFLEX) 1.10 ng/mL 0.7-1.48 Social History: Smoking Status (Most current) and [...] Facil ity May 20, 2023 09:00 AM VA-TOBACCO FORMER USER [facility] Tobacco Use History This section includes a history of the smoking, or tobacco-related health factors, that were collected on or before the date of the Encounter. The data comes from the [place] facility where the Encounter took place. Date/Time Smoking Status/Tobacco Use Comment F acility May 20, 2023 09:00 AM VA-TOBACCO QUIT 15 YRS OR MORE [facility] May 28, 2022 10:30 AM VA-TOBACCO NEVER USED [facility] Radiology Reports: +/- 30 days [...] facilities. Date/Time Radiology Report Provider Source Mar 21, 2024 12:34 PM CHEST X-RAY, 2 VIEWS: JORDYN BAILEY [id number] -1985 M Exm Date: MAR 21, 2024@12:34 Req Phys: SUSAN BROWN Loc: [facility]EMERGENCY DEPT 2ND SHIFT (R Img Loc: [facility]MAIN RADIOLOGY SUITE Service: [address] [address] (Case [id number] COMPLETE) CHEST X-RAY, 2 VIEWS (RAD Detailed) CPT:70684 Reason for Study: cough, SOB Clinical History: Report Status: Verified Date Reported: MAR 21, 2024 Date Verified: MAR 21, 2024 Manager Product Marketing E-Sig:/ES/Lynn Castro MD Report: CHEST X-RAY, 2 VIEWS CASE #: [id number] DATE:03/21/2024 12:39 PM CLINICAL HISTORY:cough, SOB COMPARISON: 03/05/2024, 05/20/2023, 05/28/2022 TECHNIQUE: CHEST X-RAY, 2 VIEWS Impression: FINDINGS/IMPRESSION: Low lung volumes. Top normal heart size. No CHF. Bibasilar atelectasis versus pneumonia. Correlate clinically. No pleural effusion. No pneumothorax. Primary Interpreting Staff: Lynn Castro MD, Radiologist (Manager Product Marketing) /LNYN [facility] Mar 05, 2024 10:[address] PE CHEST W/3D: JORDYN BAILEY [id number] -1985 M Exm Date: MAR 05, 2024@10:00 Req Phys: MUKESH MARINELLI Loc: [facility] 2ND SHIFT (R Img Loc: [facility]CT IMAGING [facility] Service: Unknown [address] [address] (Case [id number] COMPLETE) CT THORAX W/CONT (PE) (CT Detailed) CPT:69857 Contrast Media : unspecified contrast media Reason [...] 05, 2024 Date Verified: MAR 05, 2024 Manager Product Marketing E-Sig: Report: CT THORAX W/CONT (PE) [PRINTSET] [...] excluded. 3. Cardiomegaly. READING PHYSICIAN: Wilfred Roberts -[id number] 03/05/2024 7:32 [facility] National Teleradiology Program [phone] (For Medical Practitioner Use Only) Attention Patients / Veterans: If you have questions or concerns about these test results, please contact your ordering provider or primary care team. Primary Interpreting Staff: RADIOLOGY,OUTSIDE SERVICE, Staff Physician / RADIOLOGY,OUTSIDE SERVICE [facility] Mar 05, 2024 08:59 AM CHEST PORTABLE: JORDYN BAILEY [id number] -1985 M Exm Date: MAR 05, 2024@08:59 Req Phys: MUKESH MARINELLI Loc: [facility]Y [facility]PT 2ND SHIFT (R Img Loc: -MAIN RADIOLOGY SUITE Service: Unknown [facility], [facility] [address] [place] [address] (Case [id number] COMPLETE) CHEST PORTABLE (RAD Detailed) CPT:81898 Proc Modifiers : Portable Reason for Study: chest pain Clinical History: Report Status: Verified Date Reported: MAR 05, 2024 Date Verified: MAR 05, 2024 Manager Product Marketing E-Sig: Report: CHEST PORTABLE Comparison: 05/20/2023, 02/12/2024 Clinical History: chest pain The study was performed and supervised at the local [place] facility, and subsequently transmitted to [facility] NTP (National Teleradiology Program) for interpretation. Impression: Lungs: Small left effusion with left basilar opacity which may represent atelectasis or consolidation.. Cardiomediastinal silhouette: No enlargement of the cardiomediastinal silhouette. Bones and soft tissues: No acute finding. READING PHYSICIAN: Sandeep Kraft M.D. -[phone] 03/05/2024 7:29 PST [facility] National Teleradiology Program [phone] (For Medical Practitioner Use Only) Attention Patients / Veterans: If you have questions or concerns about these test results, please contact your ordering provider or primary care team. Primary Interpreting Staff: RADIOLOGY,OUTSIDE SERVICE, Staff Physician / RADIOLOGY,OUTSIDE SERVICE [facility] Feb 12, 2024 02:[address] THORAX W/O CONT HIGH RES: JORDYN BALIEY [id number] -1985 M Exm Date: FEB 12, 2024@14:18 Req Phys: FLOYD WOO Loc: [facility] (Req'g Loc) [facility] Loc: [facility] IM[facility] Service: Unknown [facility], [facility] [address] [place] [address] (Case [id number] COMPLETE) CT THORAX W/O CONT HIGH RES (CT Detailed) CPT:62642 Reason for Study: chronic cough, exertional dyspnea, + hazardous exposure hx Clinical History: Responsible Attending: floyd woo PA-C Attending Contact Number: [phone] Resident Contact Number: Allergies listed in CPRS chart: SHELLFISH Creatinine: CREATININE 0.95 mg/dL 11/25/2023 11:00 /eGFR: STL EGFR (within one year). CREATININE 0.95 mg/dL (11/25/23 11:00) Wt: 218.3 lb [99.02 kg] (01/14/2024 08:55) History of: Renal failure, chronic or acute renal disease: NO Report Status: Verified Date Reported: FEB 15, 2024 Date Verified: FEB 15, 2024 Manager Product Marketing E-Sig:/ES/Lynn Castro MD Report: CASE #: [id number] DATE:02/12/2024 4:23 PM CLINICAL HISTORY:chronic cough, exertional [...] Primary Interpreting Staff: Lynn Castro MD, Radiologist (Manager Product Marketing) /LYNN [facility] Jan 28, 2024 02:20 PM HAND,RIGHT,3 OR MORE VIEWS: LYNNJORDYN ANTHONY [id number] -1985 M Exm Date: JAN 28, 2024@14:20 Req Phys: KODAK MORTON Pat Loc: [facility] PACT B5 NEW PATIENT (Re Img Loc: -MAIN RADIOLOGY SUITE Service: [facility], [address] [address] (Case [id number] COMPLETE) HAND,RIGHT,3 OR MORE VIEWS (RAD Detailed) CPT:11688 Proc Modifiers : RIGHT Reason for Study: right hand feell stiff and pain specialy in morning Clinical History: right hand feell stiff and pain specialy in morning Report Status: Verified Date Reported: JAN 29, 2024 Date Verified: JAN 29, 2024 Manager Product Marketing E-Sig:/ES/ART ENCARNACION MD Report: Case #[id number]. Right hand examination. Finding: Three views of the right hand examination shows no fracture dislocation. No evidence of lytic or blastic bony lesion. No joint space narrowing or marginal erosion. No soft tissue swelling, radiopaque foreign body or abnormal calcification. Impression: No fracture dislocation or arthritic change. Primary Interpreting Staff: ART ENCARNACION MD, Staff Physician - Radiologist (Manager Product Marketing) /[facility] Jan 28, 2024 02:20 PM WRIST,RIGHT,3 OR MORE VIEWS: JORDYN BAILEY [id number] -1985 M Exm Date: JAN 28, 2024@14:20 Req Phys: KODAK MORTON Pat Loc: [facility] PACT B5 NEW PATIENT (Re Img Loc: [facility] RADIOLOGY SUITE Service: Unknown [facility] [address] [place] [address] (Case [id number] COMPLETE) WRIST,RIGHT,3 OR MORE VIEWS (RAD Detailed) CPT:28241 Proc Modifiers : RIGHT Reason for Study: right writs pain Clinical History: c/o right wroist pain Report Status: Verified Date Reported: JAN 29, 2024 Date Verified: JAN 29, 2024 Manager Product Marketing E-Sig:/ES/ART ENCARNACION MD Report: Case #[id number]. Right [...] ART ENCARNACION MD, Staff Physician - Radiologist (Manager Product Marketing) /GUNJAN ANDRADEVINNIE [facility] Jan 28, 2024 02:20 PM HAND,LEFT,3 OR MORE VIEWS: JORDYN BAILEY ANTHONY [id number] -1985 M Exm Date: JAN 28, 2024@14:20 Req Phys: KODAK MORTON Pat Loc: [facility] PACT B5 NEW PATIENT (Re Img Loc: [facility] RADIOLOGY SUITE Service: Unknown [facility] [address] [place] [address] (Case [id number] COMPLETE) HAND,LEFT,3 OR MORE VIEWS (RAD Detailed) CPT:49842 Proc Modifiers : LEFT Reason for Study: left hand feell stiff and pain specialy in morning Clinical History: eft hand feell stiff and pain specialy in morning Report Status: Verified Date Reported: JAN 29, 2024 Date Verified: JAN 29, 2024 Manager Product Marketing E-Sig:/NATALIIA/ART ENCARNACION MD Report: Case #[id number]. Left hand examination. Finding: Three views of the left hand examination shows no fracture dislocation. No evidence of lytic or blastic bony lesion. No joint space narrowing or marginal erosion. No soft tissue swelling, radiopaque foreign body or abnormal calcification. Impression: No fracture dislocation or arthritic change. Primary Interpreting Staff: ART ENCARNACION MD, Staff Physician - Radiologist (Manager Product Marketing) /ART [facility]RADE [facility] Jan 28, 2024 02:20 PM WRIST,LEFT, 3 OR MORE VIEWS: JORDYN BAILEY [id number] -1985 M Exm Date: JAN 28, 2024@14:20 Req Phys: KODAK MORTON Loc: [facility] PACT B5 NEW PATIENT (Re Img Loc: -[facility] RADIOLOGY SUITE Service: [facility], [facility] [address] [place] [address] (Case [id number] COMPLETE) WRIST,LEFT, 3 OR MORE VIEWS (RAD Detailed) CPT:49656 Proc Modifiers : LEFT Reason for Study: c/o left wrist pain Clinical History: c/o left wrist pain Report Status: Verified Date Reported: JAN 29, 2024 Date Verified: JAN 29, 2024 Manager Product Marketing E-Sig:/NATALIIA/ART ENCARNACION MD Report: Case #[id number]. Left [...] ART ENCARNACION MD, Staff Physician - Radiologist (Manager Product Marketing) /ART ANDRADE [facility] Encounter Notes: All associated encounter notes This section contains the clinical notes associated to the Encounter. Date/Time Encounter Note(s) Provider Source Feb 25, 2024 04:15 PM PRIMARY CARE TELEPHONE ENCOUNTER NOTE: LOCAL TITLE: PRIMARY CARE PROVIDER TELEPHONE CONTACT [facility] TITLE: PRIMARY CARE TELEPHONE ENCOUNTER NOTE DATE OF NOTE: FEB 25, 2024@16:15 ENTRY DATE: FEB 25, 2024@16:15:28 AUTHOR: KODAK MORTON EXP COSIGNER: URGENCY: STATUS: COMPLETED ESTABLISHED PATIENT TELEPHONE: REASON FOR VISIT/CHIEF COMPLAINT: -Wanted prednisone for carpal tunnel HPI: Mr. Bailey is a 39-year-old male Who recently had phone appointment on February 16 with covering provider Bilateral hand numbness and tingling, pain with question of carpal tunnel He was prescribed NSAID for his pain after reviewed EMG findings from February 08, 2024 by the covering provider see their note on the CPRS He called right after that patient advocate and demand for prednisone as he claimed that that is the only medication helped his pain which I received a message from the licensed clinical psychologist Today I called him to discuss further about his symptoms as he claim having trouble sleeping and wake up secondary to pain arms and in upper body shoulder and hand and concern that he we will see the plastic surgery on March 09 That is far he wants prednisone that helps his pain I discussed pros and cons of prednisone that he has been previously taking few times and just not the treatment for carpal tunnel, and NSAID should help with his complaint of multiple body aches and pain He also scheduled to see rheumatology Patient is minor issue is not able to sleep well getting up in the middle of night He reports melatonin helps with sleep but not taking I encouraged him to take melatonin for now and also will prescribe trazodone 50 mg at bedtime to help him sleep better than prednisone he agrees I also reviewed his chart and discussed about his cough and supposed to see pulmonary but he has canceled that appointment he reported his cough is much better and therefore to not feel need to see pulmonary at this point He agreed to continue NSAIDs for multiple joint pain until evaluated by plastic as well as rheumatology He has no other complaint PAST MEDICAL HISTORY: 1) Chronic back pain 2) Sleep apnea 3) Posttraumatic stress disorder 4) Major depressive disorder 5) Steatosis of liver 6) Obesity 7) Exposure to potentially hazardous substance 8) Allergic rhinitis 9) Insomnia ALLERGIES: SHELLFISH ALLERGY REVIEW: Allergy list reviewed and remains current. MEDICATION RECONCILIATION: I have reviewed the patient's medication list with the patient and/or his/her care-tankerman. Handwritten corrections, additions and/or deletions were made [...] DAY NEEDED FOR COUGH 3) DICLOFENAC NA 50MG EC TAB TAKE ONE TABLET BY MOUTH ACTIVE EVERY MORNING AND EVENING FOR PAIN - TAKE WITH FOOD 4) METHYLPREDNISOLONE 4MG TAB DOSEPAK,21 TAKE TABLETS BY ACTIVE MOUTH DIRECTED TAKE 6 TABLETS BY MOUTH ON DAY ONE, THEN DECREASE BY ONE TABLET DAILY UNTIL GONE. TAKE WITH FOOD. 5) PANTOPRAZOLE NA 40MG EC TAB TAKE ONE TABLET BY MOUTH ACTIVE EVERY MORNING BEFORE A MEAL TAKE 30 MINUTES BEFORE MEAL(S) Pending Outpatient Medications Status 1) TRAZODONE HCL 100MG TAB TAKE ONE-HALF TABLET BY MOUTH PENDING AT BEDTIME 6 Total Medications ASSESSMENT/PLAN: 1) insomnia- he agree to take melatonin 6 to 9 mg at bedtime for help sleep Will also order trazodone 50 mg at bedtime to take with Discussed good sleep hygiene avoid caffeinated beverages, in the evening Light exercise and shower before go to bed 2) Bilateral carpal tunnel syndrome. --Continue diclofenac 50 mg twice a day. -Continue to wear bilateral wrist splints. -Follow-up with plastic on March 09 SUMMARY STATEMENT: Plan of care has been discussed with including expected therapeutic benefits and potential side effects of prescribed medication and treatments. verbalizes understanding and is in agreement with the plan of care. Patient was instructed to keep all scheduled appointments and contact bobbin collector for any additional problems. TIME SPENT: 11 to 20 minutes /nataliia/ Kodak Morton MD Staff Physician Signed: 02/28/2024 23:08 KODAK MORTON [facility]
--- OUTSIDE RECORDS SUMMARY | 2024-03-31 01:08 | XMS_ITS | Encounter Summary ---
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 Sheriff/Investigator Name Role Phone KODAK MORTON Primary Care [...] CHOIC E PREFE RR Apr 13, 2020 [id number] [phone] BOOGIE PINEDA ANDON PATIENT ANTHEM [employer] [place] PREFERRED PROVIDER ORGANIZAT ION (PPO) BLUE CHOIC E PREFE RR Apr 13, 2020 [id number] [phone] LYNN,BOOGIE ANDON PATIENT ANTHEM [employer] [place] PREFERRED PROVIDER ORGANIZAT ION (PPO) BLUE CHOIC E PREFE RR Apr 13, 2020 [id number] [phone] BOOGIE PINEDA ANDON PATIENT [employer] [place] PREFERRED PROVIDER ORGANIZAT ION (PPO) BLUE CHOIC E PREFE RR Apr 13, 2020 [id number] [phone] BOOGIE PINEDA PATIENT PRIME THERAPEUTI CS RX PRESCRIPT ION BCBSI L T[place]ER Apr 13, 2020 [id number] [phone] BOOGIE PINEDA PATIENT [facility] 2018 TRICA RE May 10, 2019 SELECT [id number] BOOGIE PINEDA PATIENT Selected Encounter This section includes the information on record at [place] for the Encounter. Date/Time Encounter Type Encounter Description Reason Pro vider Source Mar 02, 2024 03:18 PM Outpatient Encounter ADMIN PAT ACTIVTIES (MASNONCT) [...] 20 appointments. The data comes from all [facility]. Appointment Date/Time Appointment Type Appointme nt Facility Name Mar 05, 2024 08:43 AM AMBULATORY - MEDICINE [facility] Mar 16, 2024 10:15 AM AMBULATORY - SURGERY [facility] Mar 21, 2024 12:14 PM AMBULATORY - MEDICINE [facility] Apr 01, 2024 10:00 AM AMBULATORY - PSYCHIATRY [facility] Apr 28, 2024 03:00 PM AMBULATORY - MEDICINE [facility] May 05, 2024 11:30 AM AMBULATORY - MEDICINE [facility] May 27, 2024 11:00 AM AMBULATORY - MEDICINE [facility] Active, Pending, and Scheduled Orders This section includes a listing of several types of active, pending, and scheduled orders, including clinic medications orders, diagnostic test orders, procedure orders and consult orders; where the start date of the order is 45 days before the date of the Encounter or 45 days after the date of theEncounter. The data comes from all [facility]. Test Date/Time Test Type Test Details Facility Name Jan 26, 2024 02:11 PM Consult Order RHEUMATOLO GY OUTPATIENT STL [facility] Feb 17, 2024 01:16 PM Consult Order PLASTIC SHELLEY RGERY OUTPT STL [facility] Mar 16, 2024 10:22 AM Consult Order [facility] PLASTIC SURG [facility] Mar 21, 2024 03:48 PM Procedure Order CP EKG STL CP EKG - STL [facility] Lab Results: +/- 30 days of [...] Range Comment Mar 21, 2024 12:30 PM [facility] COMPREHENSIVE METABOLIC PANEL Specimen Type: PLASMA Comment: No hemolysis noted. Ordering Provider: SUSAN BROWN Report Released Date/Time: Mar 21, 2024 12:23 PM Reporting Lab: [facility] [address] [facility] [address] Performing Lab: [address] [address] CREATININE 1.00 mg/dL 0.7-1.3 UREA NITROGEN 18.1 [...] 98.2 >60 Mar 21, 2024 12:30 PM [facility] CBC Specimen Type: BLOOD No comment entered. Ordering Provider: SUSAN BROWN Report Released Date/Time: Mar 21, 2024 12:23 PM Reporting Lab: [facility] [address] [facility] [address] Performing Lab: [facility] [address] [facility] [address] WBC 7.2 10*3/uL 3.6-11.2 RBC 4.24 10*6/uL [...] 10*3/uL 0.00-0.20 Mar 05, 2024 11:10 AM [facility] TROPONIN I Specimen Type: PLASMA No comment entered. Ordering Provider: MUKESH MARINELLI Report Released Date/Time: Mar 05, 2024 11:04 AM Reporting Lab: [place] [address] [facility] [address] Performing Lab: [address] [address] TROPONIN I <0.010 ng/mL 0-0.033 Mar 05, 2024 09:50 AM [facility] RESPIRATORY PCR PANEL Specimen Type: NASOPHARYNX Comment: [...] available to the clinician evaluating the patient. BIOFIRE, FilmKelly Skinner, ([phone]) Ordering Provider: MUKESH MARINELLI Report Released Date/Time: Mar 05, 2024 09:39 AM Reporting Lab: [facility] [address] [facility] [address] Performing Lab: [address] [address] *Adenovirus (BF) Not Detected Not Detected *Coronavirus [...] Not Detected Mar 05, 2024 09:00 AM [facility] CBC Specimen Type: BLOOD No comment entered. Ordering Provider: MUKESH MARINELLI Report Released Date/Time: Mar 05, 2024 08:52 AM Reporting Lab: [facility] [address] [facility] [address] Performing Lab: [address] [address] WBC 7.1 10*3/uL 3.6-11.2 RBC 4.84 10*6/uL [...] 10*3/uL 0.00-0.20 Mar 05, 2024 09:00 AM [facility] TROPONIN I Specimen Type: PLASMA Comment: No hemolysis noted. Ordering Provider: MUKESH MARINELLI Report Released Date/Time: Mar 05, 2024 08:52 AM Reporting Lab: [address] [address] Performing Lab: [address] [address] TROPONIN I 0.013 ng/mL 0-0.033 Mar 05, 2024 09:00 AM [facility] BRAIN NATRIURETIC PEPTIDE Specimen Type: PLASMA No comment entered. Ordering Provider: MUKESH MARINELLI Report Released Date/Time: Mar 05, 2024 09:39 AM Reporting Lab: [address] [address] Performing Lab: [address] [address] BRAIN NATRIURETIC PEPTIDE 16.2 pg/mL 0-100 Mar 05, 2024 09:00 AM [facility] COMPREHENSIVE METABOLIC PANEL Specimen Type: PLASMA Comment: No hemolysis noted. Ordering Provider: MUKESH MARINELLI Report Released Date/Time: Mar 05, 2024 08:52 AM Reporting Lab: [facility] [address] [facility] [address] Performing Lab: [address] [address] CREATININE 0.92 mg/dL 0.7-1.3 UREA NITROGEN 15.6 [...] 108.5 >60 Mar 05, 2024 09:00 AM [facility] TSH (MA-PB) Specimen Type: SERUM No comment entered. Ordering Provider: MUKESH MARINELLI Report Released Date/Time: Mar 05, 2024 09:39 AM Reporting Lab: [facility] [address] [place] [address] Performing Lab: [address] [address] TSH 0.283 u[IU]/mL L 0.47-5 FREE T4(REFLEX) 1.10 ng/mL 0.7-1.48 Social History: Smoking Status (Most current) and Tobacco Use (All prior to encounter date) This section includes the most current, and the historical, smoking and tobacco- related health factors from the [facility] where the Encounter took place. Current Smoking Status This section includes the most current smoking, or tobacco-related health factor, from the [facility] facility where the Encounter took place. Date/Time Current Smoking Status Comment Nicolas allen Feb 26, 2021 03:59 PM [place] NEVER USED [facility] Radiology Reports: [...] 12:34 PM CHEST X-RAY, 2 VIEWS: JORDYN PINEDA [id number] -1985 M Exm Date: MAR 21, 2024@12:34 Req Phys: SUSAN BROWN Loc: -EMERGENCY DEPT 2ND SHIFT (R Img Loc: -MAIN RADIOLOGY SUITE Service: [facility], [address] [place] [address] (Case [id number] COMPLETE) CHEST X-RAY, 2 VIEWS (RAD Detailed) CPT:70876 Reason for Study: cough, SOB Clinical History: Report Status: Verified Date Reported: MAR 21, 2024 Date Verified: MAR 21, 2024 Commissary Officer E-Sig:/ES/Lynn Castro MD Report: CHEST X-RAY, 2 VIEWS CASE #: [id number] DATE:03/21/2024 12:39 PM CLINICAL HISTORY:cough, SOB COMPARISON: 03/05/2024, 05/20/2023, 05/28/2022 TECHNIQUE: CHEST X-RAY, 2 VIEWS Impression: FINDINGS/IMPRESSION: Low lung volumes. Top normal heart size. No CHF. Bibasilar atelectasis versus pneumonia. Correlate clinically. No pleural effusion. No pneumothorax. Primary Interpreting Staff: Lynn Castro MD, Radiologist (Commissary Officer) /LYNN ONEILL [facility] Mar 05, 2024 10:[address] PE CHEST W/3D: JORDYN PINEDA [id number] -1985 M Exm Date: MAR 05, 2024@10:00 Req Phys: MUKESH MARINELLI Loc: [facility]-EMERGENCY DEPT 2ND SHIFT (R Img Loc: [facility]-CT IMAGING [facility] Service: Unknown [facility], [address] [place] [address] (Case [id number] COMPLETE) CT THORAX W/CONT (PE) (CT Detailed) CPT:37874 Contrast Media : unspecified contrast media Reason [...] 05, 2024 Date Verified: MAR 05, 2024 Commissary Officer E-Sig: Report: CT THORAX W/CONT (PE) [PRINTSET] HISTORY: chest pain, tachycardia COMPARISON: 02/12/2024 TECHNIQUE: Helical CT of the chest, with multiplanar reformats including maximum intensity projection (MIP) reconstructions, was performed at the local [place] facility. 1529 images were received by the [place] National T[facility]ad[facility] Program (NTP) for interpretation. RADIATION [...] excluded. 3. Cardiomegaly. READING PHYSICIAN: Wilfred Roberts -[phone] 03/05/2024 7:32 [facility] National Teleradiology Program [phone] (For Medical Practitioner Use Only) Attention Patients / Veterans: If you have questions or concerns about these test results, please contact your ordering provider or primary care team. Primary Interpreting Staff: RADIOLOGY,OUTSIDE SERVICE, Staff Physician / RADIOLOGY,OUTSIDE SERVICE [facility] Mar 05, 2024 08:59 AM CHEST PORTABLE: JORDYN PINEDA [id number] -1985 M Exm Date: MAR 05, 2024@08:59 Req Phys: MUKESH MARINELLI Loc: [facility]-EMERGENCY DEPT 2ND SHIFT (R Img Loc: [facility]-MAIN RADIOLOGY SUITE Service: [facility], [address] [address] (Case [id number] COMPLETE) CHEST PORTABLE (RAD Detailed) CPT:60257 Proc Modifiers : Portable Reason for Study: chest pain Clinical History: Report Status: Verified Date Reported: MAR 05, 2024 Date Verified: MAR 05, 2024 Commissary Officer E-Sig: Report: CHEST PORTABLE Comparison: 05/20/2023, 02/12/2024 Clinical History: chest pain The study was performed and supervised at the local [place] facility, and subsequently transmitted to [facility] NTP (National Teleradiology Program) for interpretation. Impression: Lungs: Small left effusion with left basilar opacity which may represent atelectasis or consolidation.. Cardiomediastinal silhouette: No enlargement of the cardiomediastinal silhouette. Bones and soft tissues: No acute finding. READING PHYSICIAN: Sandeep Kraft M.D. -[id number] 03/05/2024 7:29 PST [facility] National Teleradiology Program [phone] (For Medical Practitioner Use Only) Attention Patients / Veterans: If you have questions or concerns about these test results, please contact your ordering provider or primary care team. Primary Interpreting Staff: RADIOLOGY,OUTSIDE SERVICE, Staff Physician / RADIOLOGY,OUTSIDE SERVICE [facility] Feb 12, 2024 02:[address] THORAX W/O CONT HIGH RES: JORDYN PINEDA [id number] -1985 M Exm Date: FEB 12, 2024@14:18 Req Phys: FLOYD WOO Loc: [facility]-PULM GURINDER 1 (Req'g Loc) Img Loc: [facility]-CT IMAGING [facility] Service: Unknown [facility] [address] [place] [address] (Case [id number] COMPLETE) CT THORAX W/O CONT HIGH RES (CT Detailed) CPT:22735 Reason for Study: chronic cough, exertional dyspnea, + hazardous exposure hx Clinical History: Responsible Attending: floyd woo PA-C Attending Contact Number: [phone] Resident Contact Number: Allergies listed in CPRS chart: SHELLFISH Creatinine: CREATININE 0.95 mg/dL 11/25/2023 11:00 /eGFR: STL EGFR (within one year). CREATININE 0.95 mg/dL (11/25/23 11:00) Wt: 218.3 lb [99.02 kg] (01/14/2024 08:55) History of: Renal failure, chronic or acute renal disease: NO Report Status: Verified Date Reported: FEB 15, 2024 Date Verified: FEB 15, 2024 Commissary Officer E-Sig:/ES/Lynn Castro MD Report: CASE #: [id number] DATE:02/12/2024 4:23 PM CLINICAL HISTORY:chronic cough, exertional [...] Primary Interpreting Staff: Lynn Castro MD, Radiologist (Commissary Officer) /LYNN ONEILL [facility] Encounter Notes: All associated encounter notes This section contains the clinical notes associated to the Encounter. Date/Time Encounter Note(s) Provider Source Mar 02, 2024 03:20 PM PHYSICIAN LETTERS: LOCAL TITLE: NO CONTACT LETTER STL STANDARD TITLE: PHYSICIAN LETTERS DATE OF NOTE: MAR 02, 2024@15:20 ENTRY DATE: MAR 02, 2024@15:20:13 AUTHOR: ARIELLE GILESIGNER: URGENCY: STATUS: COMPLETED [facility] [address] [place] [address] MAR 02, 2024 JORDYN PINEDA [address] [place], [place] [address] Dear Jordyn Pineda, Thank you for choosing the [facility] as your primary choice for health care. As a partner in your health care, we are attempting to contact you because we have been unsuccessful in reaching you by phone to schedule your clinic appointment. Please call us at [phone], extension [phone] [phone] to speak to us regarding making an appointment in the [facility]. Your good health is [...] inquire about scheduling. Sincerely, ARIELLE GILES ADVANCED DIRECTORY ASSISTANCE OPERATOR JORDYN PINEDA DANNA [facility] Mar 02, 2024 03:18 PM ADMINISTRATIVE NOT E: LOCAL TITLE: SCHEDULING NOTE STL STANDARD TITLE: ADMINISTRATIVE NOTE DATE OF NOTE: MAR 02, 2024@15:18 ENTRY DATE: MAR 02, 2024@15:18:39 AUTHOR: ARIELLE GILESER: URGENCY: STATUS: COMPLETED Minimum Scheduling attempts to contact the have been made. RTC/Appt/Consult request will be discontinued after 14 days. Clinic: [facility] [place]: Feb First Call to [facility] - unsuccessful scheduling: Feb Unable to contact , letter sent: Feb Discontinue date (14 calendar days after letter is mailed): Mar Additional comments: Vet said he will call back to schedule his Follow Up RTC Appt. ADDITIONAL RESULTS FROM SCHEDULING ATTEMPTS: [facility] wants to call back to schedule /nataliia/ ARIELLE GILES ADVANCED DIRECTORY ASSISTANCE OPERATOR Signed: 03/02/2024 15:20 ARIELLE GILES [facility]
--- OUTSIDE RECORDS SUMMARY | 2024-03-31 01:08 | XMS_ITS ---
Author Name [facility] [facility] [place] Address [address] [place] [address] Care Team Providers Care Vp Of Customer Experience Strategy Name Role Phone KODAK MORTON Primary Care [...] CHOIC E PREFE RR Apr 13, 2020 [id number] [phone] BOOGIE ABILEY ANDON PATIENT ANTHEM [employer] [place] PREFERRED PROVIDER ORGANIZAT ION (PPO) BLUE CHOIC E PREFE RR Apr 13, 2020 [id number] [phone] LYNN,BOOGIE ANDON PATIENT ANTHEM [employer] [place] PREFERRED PROVIDER ORGANIZAT ION (PPO) BLUE CHOIC E PREFE RR Apr 13, 2020 [id number] [phone] BOOGIE BAILEY ANDON PATIENT [place] PREFERRED PROVIDER ORGANIZAT ION (PPO) BLUE CHOIC E PREFE RR Apr 13, 2020 [id number] [phone] BOOGIE BAILEY PATIENT PRIME THERAPEUTI CS RX PRESCRIPT ION BCBSI L T[place] Apr 13, 2020 BCBSIL [id number] [phone] BOOGIE BAILEY PATIENT [facility] 2018 TRICA RE May 10, 2019 SELECT [id number] BOOGIE BAILEY PATIENT Selected Encounter This section includes the information on record at [place] for the Encounter. Date/Time Encounter Type Encounter Description Reason Pro vider Source Mar 04, 2024 12:52 PM Outpatient Encounter ADMIN PAT ACTIVTIES (MASNONCT) IHE Encounter Template Text not used by [place] Plan of Treatment: Future Appointments (+ 6 [...] 20 appointments. The data comes from all [facility]. Appointment Date/Time Appointment Type Appointme nt Facility Name Mar 05, 2024 08:43 AM AMBULATORY - MEDICINE [facility] Mar 16, 2024 10:15 AM AMBULATORY - SURGERY [facility] Mar 21, 2024 12:14 PM AMBULATORY - MEDICINE [facility] Apr 01, 2024 10:00 AM AMBULATORY - PSYCHIATRY [facility] Apr 28, 2024 03:00 PM AMBULATORY - MEDICINE [facility] May 05, 2024 11:30 AM AMBULATORY - MEDICINE [facility] May 27, 2024 11:00 AM AMBULATORY - MEDICINE [facility] Active, Pending, and Scheduled Orders This section includes a listing of several types of active, pending, and scheduled orders, including clinic medications orders, diagnostic test orders, procedure orders and consult orders; where the start date of the order is 45 days before the date of the Encounter or 45 days after the date of theEncounter. The data comes from all [facility]. Test Date/Time Test Type Test Details Facility Name Jan 26, 2024 02:11 PM Consult Order RHEUMATOLO GY OUTPATIENT STL Cons Nutrition Aides Teacher's Choice [facility] Feb 17, 2024 01:16 PM Consult Order PLASTIC SHELLEY RGERY OUTPT STL Cons Nutrition Aides Teacher's [facility] Mar 16, 2024 10:22 AM Consult Order [facility] PLASTIC SURG Cons Nutrition Aides Teacher's [facility] Mar 21, 2024 03:48 PM Procedure Order CP EKG STL CP EKG - STL Proc [facility] Lab Results: +/- 30 days of [...] Range Comment Mar 21, 2024 12:30 PM [facility] COMPREHENSIVE METABOLIC PANEL Specimen Type: PLASMA Comment: No hemolysis noted. Ordering Provider: SUSAN BROWN Report Released Date/Time: Mar 21, 2024 12:23 PM Reporting Lab: [facility] [address] [facility] [address] Performing Lab: [address] [address] CREATININE 1.00 mg/dL 0.7-1.3 UREA NITROGEN 18.1 [...] 98.2 >60 Mar 21, 2024 12:30 PM [facility] CBC Specimen Type: BLOOD No comment entered. Ordering Provider: SUSAN BROWN Report Released Date/Time: Mar 21, 2024 12:23 PM Reporting Lab: [facility] [address] [facility] [address] Performing Lab: [facility] [address] [facility] [address] WBC 7.2 10*3/uL 3.6-11.2 RBC 4.24 10*6/uL [...] 10*3/uL 0.00-0.20 Mar 05, 2024 11:10 AM [facility] TROPONIN I Specimen Type: PLASMA No comment entered. Ordering Provider: MUKESH MARINELLI Report Released Date/Time: Mar 05, 2024 11:04 AM Reporting Lab: [place] [address] [facility] [address] Performing Lab: [address] [address] TROPONIN I <0.010 ng/mL 0-0.033 Mar 05, 2024 09:50 AM [facility] RESPIRATORY PCR PANEL Specimen Type: NASOPHARYNX [...] clinician evaluating the patient. BIOFIRE, FilmKelly Skinner, ([phone]) Ordering Provider: MUKESH MARINELLI Report Released Date/Time: Mar 05, 2024 09:39 AM Reporting Lab: [facility] [address] [facility] [address] Performing Lab: [address] [address] *Adenovirus (BF) Not Detected Not Detected *Coronavirus [...] Not Detected Mar 05, 2024 09:00 AM [facility] CBC Specimen Type: BLOOD No comment entered. Ordering Provider: MUKESH MARINELLI Report Released Date/Time: Mar 05, 2024 08:52 AM Reporting Lab: [facility] [address] [facility] [address] Performing Lab: [address] [address] WBC 7.1 10*3/uL 3.6-11.2 RBC 4.84 10*6/uL [...] 10*3/uL 0.00-0.20 Mar 05, 2024 09:00 AM [facility] TROPONIN I Specimen Type: PLASMA Comment: No hemolysis noted. Ordering Provider: MUKESH MARINELLI Report Released Date/Time: Mar 05, 2024 08:52 AM Reporting Lab: [address] [address] Performing Lab: [address] [address] TROPONIN I 0.013 ng/mL 0-0.033 Mar 05, 2024 09:00 AM [facility] BRAIN NATRIURETIC PEPTIDE Specimen Type: PLASMA No comment entered. Ordering Provider: MUKESH MARINELLI Report Released Date/Time: Mar 05, 2024 09:39 AM Reporting Lab: [address] [address] Performing Lab: [address] [address] BRAIN NATRIURETIC PEPTIDE 16.2 pg/mL 0-100 Mar 05, 2024 09:00 AM [facility] TSH (MA-PB) Specimen Type: SERUM No comment entered. Ordering Provider: MUKESH MARINELLI Report Released Date/Time: Mar 05, 2024 09:39 AM Reporting Lab: [facility] [address] [place] [address] Performing Lab: [address] [address] TSH 0.283 u[IU]/mL L 0.47-5 FREE T4(REFLEX) 1.10 ng/mL 0.7-1.48 Mar 05, 2024 09:00 AM [facility] COMPREHENSIVE METABOLIC PANEL Specimen Type: PLASMA Comment: No hemolysis noted. Ordering Provider: MUKESH MARINELLI Report Released Date/Time: Mar 05, 2024 08:52 AM Reporting Lab: [address] [address] Performing Lab: [address] [address] CREATININE 0.92 mg/dL 0.7-1.3 UREA NITROGEN 15.6 [...] U/L 8-40 EGFR (CKD-EPI 2020) 108.5 >60 Social History: Smoking Status (Most current) and Tobacco Use (All prior to encounter date) This section includes the most current, and the historical, smoking and tobacco- related health factors from the [facility] where the Encounter took place. Current Smoking Status This section includes the most current smoking, or tobacco-related health factor, from the [place] facility where the Encounter took place. Date/Time Current Smoking Status Comment Nicolas allen Feb 26, 2021 03:59 PM [place]-TOBACCO NEVER USED [facility] [...] PM CHEST X-RAY, 2 VIEWS: JORDYN BAILEY [id number] -1985 M Exm Date: MAR 21, 2024@12:34 Req Phys: SUSAN BROWN Loc: -EMERGENCY DEPT 2ND SHIFT (R Img Loc: -MAIN RADIOLOGY SUITE Service: [facility], [address] [place] [address] (Case [id number] COMPLETE) CHEST X-RAY, 2 VIEWS (RAD Detailed) CPT:08762 Reason for Study: cough, SOB Clinical History: Report Status: Verified Date Reported: MAR 21, 2024 Date Verified: MAR 21, 2024 Cloth Covered Helmet Puller E-Sig:/ES/Lynn Castro MD Report: CHEST X-RAY, 2 VIEWS CASE #: [id number] DATE:03/21/2024 12:39 PM CLINICAL HISTORY:cough, SOB COMPARISON: 03/05/2024, 05/20/2023, 05/28/2022 TECHNIQUE: CHEST X-RAY, 2 VIEWS Impression: FINDINGS/IMPRESSION: Low lung volumes. Top normal heart size. No CHF. Bibasilar atelectasis versus pneumonia. Correlate clinically. No pleural effusion. No pneumothorax. Primary Interpreting Staff: Lynn Castro MD, Radiologist (Cloth Covered Helmet Puller) /LYNN ONEILL [facility] Mar 05, 2024 10:[address] PE CHEST W/3D: JORDYN BAILEY [id number] -1985 M Exm Date: MAR 05, 2024@10:00 Req Phys: MUKESH MARINELLI Loc: [facility]-EMERGENCY DEPT 2ND SHIFT (R Img Loc: [facility]-CT IMAGING [facility] Service: Unknown [facility], [address] [place] [address] (Case [id number] COMPLETE) CT THORAX W/CONT (PE) (CT Detailed) CPT:88873 Contrast Media : unspecified contrast media Reason [...] 05, 2024 Date Verified: MAR 05, 2024 Cloth Covered Helmet Puller E-Sig: Report: CT THORAX W/CONT (PE) [PRINTSET] [...] excluded. 3. Cardiomegaly. READING PHYSICIAN: Wilfred Roberts -[id number] 03/05/2024 7:32 [facility] National Teleradiology Program [phone] (For Medical Practitioner Use Only) Attention Patients / Veterans: If you have questions or concerns about these test results, please contact your ordering provider or primary care team. Primary Interpreting Staff: RADIOLOGY,OUTSIDE SERVICE, Staff Physician / RADIOLOGY,OUTSIDE SERVICE [facility] Mar 05, 2024 08:59 AM CHEST PORTABLE: JORDYN BAILEY [id number] -1985 M Exm Date: MAR 05, 2024@08:59 Req Phys: MUKESH MARINELLI Loc: [facility]-EMERGENCY DEPT 2ND SHIFT (R Img Loc: [facility]-MAIN RADIOLOGY SUITE Service: [facility], [address] [address] (Case [id number] COMPLETE) CHEST PORTABLE (RAD Detailed) CPT:46131 Proc Modifiers : Portable Reason for Study: chest pain Clinical History: Report Status: Verified Date Reported: MAR 05, 2024 Date Verified: MAR 05, 2024 Cloth Covered Helmet Puller E-Sig: Report: CHEST PORTABLE Comparison: 05/20/2023, 02/12/2024 Clinical History: chest pain The study was performed and supervised at the local [place] facility, and subsequently transmitted to [facility] NTP (National Teleradiology Program) for interpretation. Impression: Lungs: Small left effusion with left basilar opacity which may represent atelectasis or consolidation.. Cardiomediastinal silhouette: No enlargement of the cardiomediastinal silhouette. Bones and soft tissues: No acute finding. READING PHYSICIAN: Sandeep Kraft M.D. -[id number] 03/05/2024 7:29 PST [facility] National Teleradiology Program [phone] (For Medical Practitioner Use Only) Attention Patients / Veterans: If you have questions or concerns about these test results, please contact your ordering provider or primary care team. Primary Interpreting Staff: RADIOLOGY,OUTSIDE SERVICE, Staff Physician / RADIOLOGY,OUTSIDE SERVICE [facility] Feb 12, 2024 02:[address] THORAX W/O CONT HIGH RES: JORDYN BAILEY [id number] -1985 M Exm Date: FEB 12, 2024@14:18 Req Phys: FLOYD WOO Loc: [facility]-PULM GURINDER 1 (Req'g Loc) Img Loc: [facility]-CT IMAGING [facility] Service: Unknown [facility] [address] [place] [address] (Case [id number] COMPLETE) CT THORAX W/O CONT HIGH RES (CT Detailed) CPT:73124 Reason for Study: chronic cough, exertional dyspnea, + hazardous exposure hx Clinical History: Responsible Attending: floyd woo PA-C Attending Contact Number: [phone] Resident Contact Number: Allergies listed in CPRS chart: SHELLFISH Creatinine: CREATININE 0.95 mg/dL 11/25/2023 11:00 /eGFR: STL EGFR (within one year). CREATININE 0.95 mg/dL (11/25/23 11:00) Wt: 218.3 lb [99.02 kg] (01/14/2024 08:55) History of: Renal failure, chronic or acute renal disease: NO Report Status: Verified Date Reported: FEB 15, 2024 Date Verified: FEB 15, 2024 Cloth Covered Helmet Puller E-Sig:/ES/Lynn Castro MD Report: CASE #: [id number] DATE:02/12/2024 4:23 PM CLINICAL HISTORY:chronic cough, exertional [...] Primary Interpreting Staff: Lynn Castro MD, Radiologist (Cloth Covered Helmet Puller) /LYNN ONEILL [facility] Encounter Notes: All associated encounter notes This section contains the clinical notes associated to the Encounter. Date/Time Encounter Note(s) Provider Source Mar 06, 2024 12:10 AM ADDENDUM: LOCAL TITLE: Addendum STANDARD TITLE: ADDENDUM DATE OF NOTE: MAR 06, 2024@00:10:50 ENTRY DATE: MAR 06, 2024@00:10:51 AUTHOR: KODAK MORTON EXP COSIGNER: URGENCY: STATUS: COMPLETED Please note that this dictation was completed with computer voice recognition software, often unanticipated grammatical, syntax and other interpretive errors are inadvertently transcribed by the computer software. Please disregard these errors. Above prednisone was written in error /nataliia/ Kodak Morton MD Staff Physician Signed: 03/06/2024 00:11 Receipt Acknowledged By: 03/08/2024 14:47 /es/ CHICO BECKWITH MSM, RN,[facility] REGISTERED NURSE 03/08/2024 11:10 /es/ SANCHEZ SANCHEZ RN,BSN NURSE SHIPBUILDING DRAFTSPERSON --- Original Document --- 03/04/24 CONTACT NOTE STL: Veterans name and last 4 were used to verify identity Verified Veterans telephone #/Updated telephone number in the system REASON FOR CALL: Other: Reason for call: UPSET ABOUT A CONSULT HE HAVE WITH PLASTIC SURGERY BECAUSE HIS APPOINTMENT WAS CANCEL AND PUSH OUT TO Apr. REQUESTING TO GET A CONSULT TO GO OUT TO COMMUNITY.REQUESTING AN CALL BACK FROM CERTIFIED INDOOR ENVIRONMENTALIST OR PCP. IF CANT BE REACHED ON HIS PHONE STATES YOU CAN CALL HIS PHONE [phone] /es/ MOI GOLDEN Advanced Deadener Signed: 03/04/2024 12:58 Receipt Acknowledged By: * AWAITING SIGNATURE * NOELLE FLORES 03/05/2024 19:32 /es/ Kodak Morton MD Staff Physician 03/04/2024 ADDENDUM STATUS: COMPLETED RNCM called pt- pt states that he is having difficulty swallowing. He thinks it may be due to him taking so much ibuprofen for his overall pain. Patient denies, tarry stools or blood in the stool. Pt states that he would like prednisone and pantoprozole medications renewed. RNCM provided education for pt to seek medical treatment if any issues with breathing or swallowing. Pt agreed. /es/ CHICO BECKWITH MSM, RN,CCM REGISTERED NURSE Signed: 03/04/2024 15:07 Receipt Acknowledged By: 03/05/2024 20:01 /es/ Kodak Morton MD Staff Physician 03/05/2024 ADDENDUM STATUS: COMPLETED His plastic surgery appointment is much front facer March 16 at 10:15 AM as I noted on CPRS that he need to keep as putting a new community care consult now will be more far than this one Please educate patient that he should not have been taking by himself more Sso much ibuprofen than prescribed or should not take 3 times a day as needed with food It is also very unlikely that NSAID causes throat ulcer as he eludded rather than stomach upset or in severe case ulcer if not taking with food As he demand prednisone which is more likely to cause esophagitis/stomach erosion/ulcer and should not be taking for carpel tunnel and he was agreed as we had a telephone appointment on February 24 on that day he agreed not to have prednisone, he was prescribed diclofenac acid 50 mg twice a day take with food He on that day did not even mention that he is taking as well so much ibuprofen ?? he rather wanted medicine for sleep and we agreed to provide him trazodone he also mention melatonin is also helping him sleep. Lastly I noted that he went to the emergency room on this March 05 As the ER physician wrote in their note that he was taking 1000 mg of ibuprofen 4 times a day overfew weeks ??? On ER visit on March 05 at ER he was diagnosed with pneumonia after chest x-ray and CT chest done by ER physician diagnosed pneumonia and given him antibiotics On our telephone appointment on February 24 I also asked him why he canceled his pulmonary consult appointment with chronic cough which at that time he mention he was feeling well and did not feel that he need to see the pulmonary(see my note on CPRS) Please advise him to complete his antibiotic as well as keep his plastic surgery appointment on March 16 at 10:15 AM /luis Morton MD Staff Physician Signed: 03/05/2024 20:00 Receipt Acknowledged By: 03/08/2024 07:15 /luis BECKWITH MSM, RN,[facility] REGISTERED NURSE * AWAITING SIGNATURE * SANCHEZ SANCHEZ 03/05/2024 ADDENDUM STATUS: COMPLETED I have refilled prednisone pantoprazole 40 mg a day If you continue to have esophageal stomach complaint after completing his pneumonia treatment as prescribed by your physician he can call so we can ask GI evaluation /luis Morton MD Staff Physician Signed: 03/05/2024 20:03 Receipt Acknowledged By: 03/08/2024 14:48 /luis BECKWITH MSM, RN,[facility] REGISTERED NURSE 03/08/2024 11:13 /nataliia/ SANCHEZ SANCHEZ RN,BSN NURSE SHIPBUILDING DRAFTSPERSON KODAK MORTON [facility] Mar 05, 2024 08:02 PM ADDENDUM: LOCAL TITLE: Addendum STANDARD TITLE: ADDENDUM DATE OF NOTE: MAR 05, 2024@20:02:49 ENTRY DATE: MAR 05, 2024@20:02:49 AUTHOR: KODAK MORTON EXP COSIGNER: URGENCY: STATUS: COMPLETED I have refilled prednisone pantoprazole 40 mg a day If you continue to have esophageal stomach complaint after completing his pneumonia treatment as prescribed by your physician he can call so we can ask GI evaluation /luis Morton MD Staff Physician Signed: 03/05/2024 20:03 Receipt Acknowledged By: 03/08/2024 14:48 /luis BECKWITH MSM, RN,[facility] REGISTERED NURSE 03/08/2024 11:13 /luis SANCHEZ RN,BSN NURSE SHIPBUILDING DRAFTSPERSON --- Original Document --- 03/04/24 CONTACT NOTE STL: Veterans name and last 4 were used to verify identity Verified Veterans telephone #/Updated telephone number in the system REASON FOR CALL: Other: Reason for call: UPSET ABOUT A CONSULT HE HAVE WITH PLASTIC SURGERY BECAUSE HIS APPOINTMENT WAS CANCEL AND PUSH OUT TO Apr. REQUESTING TO GET A CONSULT TO GO OUT TO COMMUNITY.REQUESTING AN CALL BACK FROM CERTIFIED INDOOR ENVIRONMENTALIST OR PCP. IF CANT BE REACHED ON HIS PHONE STATES YOU CAN CALL HIS PHONE [phone] /es/ MOI GOLDEN Advanced Deadener Signed: 03/04/2024 12:58 Receipt Acknowledged By: * AWAITING SIGNATURE * NOELLE FLORES 03/05/2024 19:32 /es/ Kodak Morton MD Staff Physician 03/04/2024 ADDENDUM STATUS: COMPLETED RNCM called pt- pt states that he is having difficulty swallowing. He thinks it may be due to him taking so much ibuprofen for his overall pain. Patient denies, tarry stools or blood in the stool. Pt states that he would like prednisone and pantoprozole medications renewed. RNCM provided education for pt to seek medical treatment if any issues with breathing or swallowing. Pt agreed. /es/ CHICO BECKWITH MSM, RN,[facility] REGISTERED NURSE Signed: 03/04/2024 15:07 Receipt Acknowledged By: 03/05/2024 20:01 /es/ Kodak Morton MD Staff Physician 03/05/2024 ADDENDUM STATUS: COMPLETED His plastic surgery appointment is much front facer March 16 at 10:15 AM as I noted on CPRS that he need to keep as putting a new community care consult now will be more far than this one Please educate patient that he should not have been taking by himself more Sso much ibuprofen than prescribed or should not take 3 times a day as needed with food It is also very unlikely that NSAID causes throat ulcer as he eludded rather than stomach upset or in severe case ulcer if not taking with food As he demand prednisone which is more likely to cause esophagitis/stomach erosion/ulcer and should not be taking for carpel tunnel and he was agreed as we had a telephone appointment on February 24 on that day he agreed not to have prednisone, he was prescribed diclofenac acid 50 mg twice a day take with food He on that day did not even mention that he is taking as well so much ibuprofen ?? he rather wanted medicine for sleep and we agreed to provide him trazodone he also mention melatonin is also helping him sleep. Lastly I noted that he went to the emergency room on this March 05 As the ER physician wrote in their note that he was taking 1000 mg of ibuprofen 4 times a day overfew weeks ??? On ER visit on March 05 at ER he was diagnosed with pneumonia after chest x-ray and CT chest done by ER physician diagnosed pneumonia and given him antibiotics On our telephone appointment on February 24 I also asked him why he canceled his pulmonary consult appointment with chronic cough which at that time he mention he was feeling well and did not feel that he need to see the pulmonary(see my note on CPRS) Please advise him to complete his antibiotic as well as keep his plastic surgery appointment on March 16 at 10:15 AM /nataliia/ Kodak Morton MD Staff Physician Signed: 03/05/2024 20:00 Receipt Acknowledged By: 03/08/2024 07:15 /nataliia/ CHICO BECKWITH MSM, RN,[facility] REGISTERED NURSE * AWAITING SIGNATURE * SANCHEZ SANCHEZ 03/06/2024 ADDENDUM STATUS: COMPLETED Please note that this dictation was completed with computer voice recognition software, often unanticipated grammatical, syntax and other interpretive errors are inadvertently transcribed by the computer software. Please disregard these errors. Above prednisone was written in error /nataliia/ Kodak Morton MD Staff Physician Signed: 03/06/2024 00:11 Receipt Acknowledged By: 03/08/2024 14:47 /nataliia/ CHICO BECKWITH MSM, RN,CCM REGISTERED NURSE 03/08/2024 11:10 /nataliia/ SANCHEZ SANCHEZ RN,BSN NURSE SHIPBUILDING DRAFTSPERSON KODAK MORTON [facility] Mar 05, 2024 07:36 PM ADDENDUM: LOCAL TITLE: Addendum STANDARD TITLE: ADDENDUM DATE OF NOTE: MAR 05, 2024@19:36:48 ENTRY DATE: MAR 05, 2024@19:36:49 AUTHOR: KODAK MORTON COSIGNER: URGENCY: STATUS: COMPLETED His plastic surgery appointment is much front facer March 16 at 10:15 AM as I noted on CPRS that he need to keep as putting a new community care consult now will be more far than this one Please educate patient that he should not have been taking by himself more Sso much ibuprofen than prescribed or should not take 3 times a day as needed with food It is also very unlikely that NSAID causes throat ulcer as he eludded rather than stomach upset or in severe case ulcer if not taking with food As he demand prednisone which is more likely to cause esophagitis/stomach erosion/ulcer and should not be taking for carpel tunnel and he was agreed as we had a telephone appointment on February 24 on that day he agreed not to have prednisone, he was prescribed diclofenac acid 50 mg twice a day take with food He on that day did not even mention that he is taking as well so much ibuprofen ?? he rather wanted medicine for sleep and we agreed to provide him trazodone he also mention melatonin is also helping him sleep. Lastly I noted that he went to the emergency room on this March 05 As the ER physician wrote in their note that he was taking 1000 mg of ibuprofen 4 times a day overfew weeks ??? On ER visit on March 05 at ER he was diagnosed with pneumonia after chest x-ray and CT chest done by ER physician diagnosed pneumonia and given him antibiotics On our telephone appointment on February 24 I also asked him why he canceled his pulmonary consult appointment with chronic cough which at that time he mention he was feeling well and did not feel that he need to see the pulmonary(see my note on CPRS) Please advise him to complete his antibiotic as well as keep his plastic surgery appointment on March 16 at 10:15 AM /nataliia/ Kodak Morton MD Staff Physician Signed: 03/05/2024 20:00 Receipt Acknowledged By: 03/08/2024 07:15 /nataliia/ CHICO BECKWITH MSM, RN,[facility] REGISTERED NURSE 03/08/2024 16:08 /es/ SANCHEZ SANCHEZ RN,BSN NURSE SHIPBUILDING DRAFTSPERSON --- Original Document --- 03/04/24 CONTACT NOTE STL: Veterans name and last 4 were used to verify identity Verified Veterans telephone #/Updated telephone number in the system REASON FOR CALL: Other: Reason for call: UPSET ABOUT A CONSULT HE HAVE WITH PLASTIC SURGERY BECAUSE HIS APPOINTMENT WAS CANCEL AND PUSH OUT TO Apr. REQUESTING TO GET A CONSULT TO GO OUT TO COMMUNITY.REQUESTING AN CALL BACK FROM CERTIFIED INDOOR ENVIRONMENTALIST OR PCP. IF CANT BE REACHED ON HIS PHONE STATES YOU CAN CALL HIS PHONE [phone] /es/ MOI GOLDEN Advanced Deadener Signed: 03/04/2024 12:58 Receipt Acknowledged By: * AWAITING SIGNATURE * NOELLE FLORES 03/05/2024 19:32 /es/ Kodak Morton MD Staff Physician 03/04/2024 ADDENDUM STATUS: COMPLETED RNCM called pt- pt states that he is having difficulty swallowing. He thinks it may be due to him taking so much ibuprofen for his overall pain. Patient denies, tarry stools or blood in the stool. Pt states that he would like prednisone and pantoprozole medications renewed. RNCM provided education for pt to seek medical treatment if any issues with breathing or swallowing. Pt agreed. /es/ CHICO BECKWITH MSM, RN,[facility] REGISTERED NURSE Signed: 03/04/2024 15:07 Receipt Acknowledged By: 03/05/2024 20:01 /nataliia/ Kodak Morton MD Staff Physician 03/05/2024 ADDENDUM STATUS: COMPLETED I have refilled prednisone pantoprazole 40 mg a day If you continue to have esophageal stomach complaint after completing his pneumonia treatment as prescribed by your physician he can call so we can ask GI evaluation /luis Morton MD Staff Physician Signed: 03/05/2024 20:03 Receipt Acknowledged By: 03/08/2024 14:48 /luis BECKWITH MSM, RN,[facility] REGISTERED NURSE 03/08/2024 11:13 /nataliia/ SANCHEZ SANCHEZ RN,BSN NURSE SHIPBUILDING DRAFTSPERSON 03/06/2024 ADDENDUM STATUS: COMPLETED Please note that this dictation was completed with computer voice recognition software, often unanticipated grammatical, syntax and other interpretive errors are inadvertently transcribed by the computer software. Please disregard these errors. Above prednisone was written in error /luis Morton MD Staff Physician Signed: 03/06/2024 00:11 Receipt Acknowledged By: 03/08/2024 14:47 /luis BECKWITH MSM, RN,[facility] REGISTERED NURSE 03/08/2024 11:10 /nataliia/ SANCHEZ SANCHEZ RN,BSN NURSE SHIPBUILDING DRAFTSPERSON KODAK MORTON [facility] Mar 04, 2024 02:44 PM ADDENDUM: LOCAL TITLE: Addendum STANDARD TITLE: ADDENDUM DATE OF NOTE: MAR 04, 2024@14:44:52 ENTRY DATE: MAR 04, 2024@14:44:53 AUTHOR: CHICO BECKWITH EXP COSIGNER: URGENCY: STATUS: COMPLETED RNCM called pt- pt states that he is having difficulty swallowing. He thinks it may be due to him taking so much ibuprofen for his overall pain. Patient denies, tarry stools or blood in the stool. Pt states that he would like prednisone and pantoprozole medications renewed. RNCM provided education for pt to seek medical treatment if any issues with breathing or swallowing. Pt agreed. /luis BECKWITH MSM, RN,[facility] REGISTERED NURSE Signed: 03/04/2024 15:07 Receipt Acknowledged By: 03/05/2024 20:01 /luis Morton MD Staff Physician --- Original Document --- 03/04/24 CONTACT NOTE STL: Veterans name and last 4 were used to verify identity Verified Veterans telephone #/Updated telephone number in the system REASON FOR CALL: Other: Reason for call: UPSET ABOUT A CONSULT HE HAVE WITH PLASTIC SURGERY BECAUSE HIS APPOINTMENT WAS CANCEL AND PUSH OUT TO Apr. REQUESTING TO GET A CONSULT TO GO OUT TO COMMUNITY.REQUESTING AN CALL BACK FROM CERTIFIED INDOOR ENVIRONMENTALIST OR PCP. IF CANT BE REACHED ON HIS PHONE STATES YOU CAN CALL HIS PHONE [phone] /es/ MOI GOLDEN Advanced Deadener Signed: 03/04/2024 12:58 Receipt Acknowledged By: * AWAITING SIGNATURE * NOELLE FLORES 03/05/2024 19:32 /es/ Kodak Morton MD Staff Physician 03/05/2024 ADDENDUM STATUS: COMPLETED His plastic surgery appointment is much front facer March 16 at 10:15 AM as I noted on CPRS that he need to keep as putting a new community care consult now will be more far than this one Please educate patient that he should not have been taking by himself more Sso much ibuprofen than prescribed or should not take 3 times a day as needed with food It is also very unlikely that NSAID causes throat ulcer as he eludded rather than stomach upset or in severe case ulcer if not taking with food As he demand prednisone which is more likely to cause esophagitis/stomach erosion/ulcer and should not be taking for carpel tunnel and he was agreed as we had a telephone appointment on February 24 on that day he agreed not to have prednisone, he was prescribed diclofenac acid 50 mg twice a day take with food He on that day did not even mention that he is taking as well so much ibuprofen ?? he rather wanted medicine for sleep and we agreed to provide him trazodone he also mention melatonin is also helping him sleep. Lastly I noted that he went to the emergency room on this March 05 As the ER physician wrote in their note that he was taking 1000 mg of ibuprofen 4 times a day overfew weeks ??? On ER visit on March 05 at ER he was diagnosed with pneumonia after chest x-ray and CT chest done by ER physician diagnosed pneumonia and given him antibiotics On our telephone appointment on February 24 I also asked him why he canceled his pulmonary consult appointment with chronic cough which at that time he mention he was feeling well and did not feel that he need to see the pulmonary(see my note on CPRS) Please advise him to complete his antibiotic as well as keep his plastic surgery appointment on March 16 at 10:15 AM /nataliia/ Kodak Morton MD Staff Physician Signed: 03/05/2024 20:00 Receipt Acknowledged By: * AWAITING SIGNATURE * CHICO BECKWITH * AWAITING SIGNATURE * SANCHEZ SANCHEZ CARLA F [facility] Mar 04, 2024 12:52 PM ADMINISTRATIVE NOT E: LOCAL TITLE: CONTACT NOTE STL STANDARD TITLE: ADMINISTRATIVE NOTE DATE OF NOTE: MAR 04, 2024@12:52 ENTRY DATE: MAR 04, 2024@12:52:17 AUTHOR: MITCHELL MURRIETA COSIGNER: URGENCY: STATUS: COMPLETED CONTACT NOTE STL Has ADDENDA Veterans name and last 4 were used to verify identity Verified Veterans telephone #/Updated telephone number in the system REASON FOR CALL: Other: Reason for call: UPSET ABOUT A CONSULT HE HAVE WITH PLASTIC SURGERY BECAUSE HIS APPOINTMENT WAS CANCEL AND PUSH OUT TO Apr. REQUESTING TO GET A CONSULT TO GO OUT TO COMMUNITY.REQUESTING AN CALL BACK FROM CERTIFIED INDOOR ENVIRONMENTALIST OR PCP. IF CANT BE REACHED ON HIS PHONE STATES YOU CAN CALL HIS PHONE [phone] /nataliia/ MOI GOLDEN Advanced Deadener Signed: 03/04/2024 12:58 Receipt Acknowledged By: 03/09/2024 12:53 /es/ NOELLE MAGALLANESN RN REGISTERED NURSE 03/05/2024 19:32 /nataliia/ Kodak Morton MD Staff Physician 03/04/2024 ADDENDUM STATUS: COMPLETED RNCM called pt- pt states that he is having difficulty swallowing. He thinks it may be due to him taking so much ibuprofen for his overall pain. Patient denies, tarry stools or blood in the stool. Pt states that he would like prednisone and pantoprozole medications renewed. RNCM provided education for pt to seek medical treatment if any issues with breathing or swallowing. Pt agreed. /es/ CHICO BECKWITH MSM, RN,[facility] REGISTERED NURSE Signed: 03/04/2024 15:07 Receipt Acknowledged By: 03/05/2024 20:01 /es/ Kodak Morton MD Staff Physician 03/05/2024 ADDENDUM STATUS: COMPLETED His plastic surgery appointment is much front facer March 16 at 10:15 AM as I noted on CPRS that he need to keep as putting a new community care consult now will be more far than this one Please educate patient that he should not have been taking by himself more Sso much ibuprofen than prescribed or should not take 3 times a day as needed with food It is also very unlikely that NSAID causes throat ulcer as he eludded rather than stomach upset or in severe case ulcer if not taking with food As he demand prednisone which is more likely to cause esophagitis/stomach erosion/ulcer and should not be taking for carpel tunnel and he was agreed as we had a telephone appointment on February 24 on that day he agreed not to have prednisone, he was prescribed diclofenac acid 50 mg twice a day take with food He on that day did not even mention that he is taking as well so much ibuprofen ?? he rather wanted medicine for sleep and we agreed to provide him trazodone he also mention melatonin is also helping him sleep. Lastly I noted that he went to the emergency room on this March 05 As the ER physician wrote in their note that he was taking 1000 mg of ibuprofen 4 times a day overfew weeks ??? On ER visit on March 05 at ER he was diagnosed with pneumonia after chest x-ray and CT chest done by ER physician diagnosed pneumonia and given him antibiotics On our telephone appointment on February 24 I also asked him why he canceled his pulmonary consult appointment with chronic cough which at that time he mention he was feeling well and did not feel that he need to see the pulmonary(see my note on CPRS) Please advise him to complete his antibiotic as well as keep his plastic surgery appointment on March 16 at 10:15 AM /luis Morton MD Staff Physician Signed: 03/05/2024 20:00 Receipt Acknowledged By: 03/08/2024 07:15 /nataliia/ CHICO BECKWITH MSM, RN,[facility] REGISTERED NURSE 03/08/2024 16:08 /nataliia/ SANCHEZ SANCHEZ RN,BSN NURSE SHIPBUILDING DRAFTSPERSON 03/05/2024 ADDENDUM STATUS: COMPLETED I have refilled prednisone pantoprazole 40 mg a day If you continue to have esophageal stomach complaint after completing his pneumonia treatment as prescribed by your physician he can call so we can ask GI evaluation /luis Morton MD Staff Physician Signed: 03/05/2024 20:03 Receipt Acknowledged By: 03/08/2024 14:48 /nataliia/ CHICO BECKWITH MSM, RN,[facility] REGISTERED NURSE 03/08/2024 11:13 /nataliia/ SANCHEZ SANCHEZ RN,BSN NURSE SHIPBUILDING DRAFTSPERSON 03/06/2024 ADDENDUM STATUS: COMPLETED Please note that this dictation was completed with computer voice recognition software, often unanticipated grammatical, syntax and other interpretive errors are inadvertently transcribed by the computer software. Please disregard these errors. Above prednisone was written in error /nataliia/ Kodak Morton MD Staff Physician Signed: 03/06/2024 00:11 Receipt Acknowledged By: 03/08/2024 14:47 /luis BECKWITH MSM, RN,[facility] REGISTERED NURSE 03/08/2024 11:10 /nataliia/ SANCHEZ SANCHEZ RN,BSN NURSE SHIPBUILDING DRAFTSPERSON MITCHELL MURRIETA [facility]
--- OUTSIDE RECORDS SUMMARY | 2024-03-31 01:08 | XMS_ITS | Encounter Summary ---
Author Name [facility] Organization [facility] Address [address] [place] [address] Care Team Providers Care Coverage Analyst Name Role Phone KODAK MORTON Primary [...] CHOIC E PREFE RR Apr 13, 2020 [id number] [phone] BOOGIE BAILEY ANDON PATIENT ANTHEM [employer] [place] PREFERRED PROVIDER ORGANIZAT ION (PPO) BLUE CHOIC E PREFE RR Apr 13, 2020 [id number] [phone] LYNN,BOOGIE ANDON PATIENT ANTHEM [employer] [place] PREFERRED PROVIDER ORGANIZAT ION (PPO) BLUE CHOIC E PREFE RR Apr 13, 2020 [id number] [phone] BOOGIE BAILEY ANDON PATIENT [employer] PREFERRED PROVIDER ORGANIZAT ION (PPO) BLUE CHOIC E PREFE RR Apr 13, 2020 [id number] [phone] LYNN,BR ANDON PATIENT PRIME THERAPEUTI CS RX PRESCRIPT ION BCBSI L [place] Apr 13, 2020 [id number] [phone] BOOGIE BAILEY PATIENT [facility] 2018 TRICA RE May 10, 2019 SELECT [id number] BOOGIE BAILEY PATIENT Selected Encounter This section includes the information on record at ID for the Encounter. Date/Time Encounter Type Encounter Description Reason Provider Source Feb 17, 2024 01:00 PM Outpatient Encounter TELEPHONE PRIMARY CARE ICD-10-CM G56.03 Carpal tunnel syndrome, bilateral upper limbs USLLY BULL Valentin Encounter Template Text not used by ID Assessments - Encounter Diagnoses This section includes the primary and secondary diagnoses documented for the Encounter. Date/Time Primary/Secondary Diagnosis Diagnosis Name Provider Source Feb 17, 2024 01:00 PM PRIMARY Carpal tunnel syndrome, bilateral upper limbs SULLY BULL [facility] Plan of Treatment: Future Appointments (+ 6 months) and Future Tests (+/- 45 days) The Plan of Treatment section includes future care activities for the patient from all ID treatmentfacilities. This section includes future appointments and future orders which are active, pending or scheduled. Future Appointments This section includes appointments that were scheduled to occur 6 months from the date of the Encounter, up to a maximum of 20 appointments. The data comes from all ID treatment facilities. Appointment Date/Time Appointment Type Appointme nt Facility Name Feb 25, 2024 09:30 AM AMBULATORY [facility]ICINE [facility] Mar 05, 2024 08:43 AM AMBULATORY - MEDICINE [facility] Mar 16, 2024 10:15 AM AMBULATORY - SURGERY [facility] Mar 21, 2024 12:14 PM AMBULATORY - MEDICINE [facility] Apr 01, 2024 10:00 AM AMBULATORY - PSYCHIATRY [facility] Apr 28, 2024 03:00 PM AMBULATORY - MEDICINE [facility] May 05, 2024 11:30 AM AM[facility]ULATORY - MEDICINE [facility] May 27, 2024 11:00 AM AMBULATORY MEDICINE [facility] Active, Pending, and Scheduled Orders This section includes a listing of several types of active, pending, and scheduled orders, including clinic medications orders, diagnostic test orders, procedure orders and consult orders; where the start date of the order is 45 days before the date of the Encounter or 45 days after the date of theEncounter. The data comes from all ID treatment facilities. Test Date/Time Test Type Test Details Facility Name Jan 26, 2024 02:11 PM Consult Order RHEUMATOLO GY OUTPATIENT ST [facility] Feb 17, 2024 01:16 PM Consult Order PLASTIC SHELLEY RGERY OUTPT STL [facility] Mar 16, 2024 10:22 AM Consult Order [facility] PLASTIC SURG [facility] Mar 21, 2024 03:48 PM Procedure Order CP EKG STL CP EKG - STL Proc [facility] Lab Results: +/- 30 days of [...] Comment Mar 05, 2024 11:10 AM [facility] TROPONIN I Specimen Type: PLASMA No comment entered. Ordering Provider: MUKESH MARINELLI Report Released Date/Time: Mar 05, 2024 11:04 AM Reporting Lab: [facility] [address] [address] Performing Lab: [address] [address] TROPONIN I <0.010 ng/mL 0-0.033 Mar 05, 2024 09:50 AM [facility] RESPIRATORY PCR PANEL Specimen Type: NASOPHARYNX Comment: The CloudPartnerArray RP Panel combines nested multiplex PCR and [...] available to the clinician evaluating the patient. [facility]Energy[facility]rue [facility], (130) Ordering Provider: MUKESH MARINELLI Report Released Date/Time: Mar 05, 2024 09:39 AM Reporting Lab: [facility] [address] [place] [phone] Performing Lab: [address] [address] *Adenovirus (BF) Not Detected Not Detected *Coronavirus [...] Detected Mar 05, 2024 09:00 AM [facility] CBC Specimen Type: BLOOD No comment entered. Ordering Provider: MUKESH MARINELLI Report Released Date/Time: Mar 05, 2024 08:52 AM Reporting Lab: [address] [address] Performing Lab: [address] [address] WBC 7.1 10*3/uL 3.6-11.2 RBC 4.84 10*6/uL [...] 0.00-0.20 Mar 05, 2024 09:00 AM [facility] TROPONIN I Specimen Type: PLASMA Comment: No hemolysis noted. Ordering Provider: MUKESH MARINELLI Report Released Date/Time: Mar 05, 2024 08:52 AM Reporting Lab: [place] [address] Performing Lab: [place] [address] TROPONIN I 0.013 ng/mL 0-0.033 Mar 05, 2024 09:00 AM [facility] TSH (MA-PB) Specimen Type: SERUM No comment entered. Ordering Provider: MUKESH MARINELLI Report Released Date/Time: Mar 05, 2024 09:39 AM Reporting Lab: [address] [address] Performing Lab: [place] [address] TSH 0.283 u[IU]/mL L 0.47-5 FREE T4(REFLEX) 1.10 ng/mL 0.7-1.48 Mar 05, 2024 09:00 AM [facility] BRAIN NATRIURETIC PEPTIDE Specimen Type: PLASMA No comment entered. Ordering Provider: MUKESH MARINELLI Report Released Date/Time: Mar 05, 2024 09:39 AM Reporting Lab: [address] [address] Performing Lab: [address] [address] BRAIN NATRIURETIC PEPTIDE 16.2 pg/mL 0-100 Mar 05, 2024 09:00 AM [facility] COMPREHENSIVE METABOLIC PANEL Specimen Type: PLASMA Comment: No hemolysis noted. Ordering Provider: MUKESH MARINELLI Report Released Date/Time: Mar 05, 2024 08:52 AM Reporting Lab: [address] [address] Performing Lab: [address] [address] CREATININE 0.92 mg/dL 0.7-1.3 UREA NITROGEN 15.6 [...] Jan 26, 2024 02:11 PM Reporting Lab: [address] [address] Performing Lab: [place] [address] [address] CRP 0.6 mg/dL H 0-0.5 Jan 26, 2024 02:47 PM [facility] ESR ISED(STL) Specimen Type: BLOOD No comment entered. Ordering Provider: KODAK MORTON Report Released Date/Time: Jan 26, 2024 02:11 PM Reporting Lab: [facility] [address] [address] Performing Lab: [facility] [address] [place] [phone] ESR ISED(STL) 35 mm/h H 0-14 Jan 26, 2024 02:47 PM [facility] RHEUMATOID FACTOR (STL) Specimen Type: SERUM No comment entered. Ordering Provider: KODAK MORTON Report Released Date/Time: Jan 26, 2024 02:19 PM Reporting Lab: [facility] [address] [place] [phone] Performing Lab: [facility] [address] [place] [phone] RHEUMATOID FACTOR (STL) <15.0 0-29 Social History: Smoking Status (Most current) and Tobacco Use (All prior to encounter date) This section includes the most current, and the historical, smoking and tobacco- related health factors from the ID facility where the Encounter took place. Current Smoking Status This section includes the most current smoking, or tobacco-related health factor, from the ID facility where the Encounter took place. Date/Time Current Smoking Status Comment Nicolas osorioy May 20, 2023 09:00 AM ID-TOBACCO FORMER USER [facility] Tobacco Use History This section includes a history of the smoking, or tobacco-related health factors, that were collected on or before the date of the Encounter. The data comes from the ID facility where the Encounter took place. Date/Time Smoking Status/Tobacco Use Comment F acility May 20, 2023 09:00 AM ID-TOBACCO QUIT 15 YRS OR MORE [facility] May 28, 2022 10:30 AM ID-TOBACCO NEVER USED [facility] Radiology Reports: +/- 30 days of [...] the Encounter. The data comes from all ID treatment facilities. Date/Time Radiology Report Provider Source Mar 05, 2024 10:[address] PE CHEST W/3D: JORDYN BAILEY [id number] -1985 M Exm Date: MAR 05, 2024@10:00 Req Phys: MUKESH MARINELLI Loc: [facility]ERGENCY [facility]PT 2ND SHIFT (R Img Loc: [facility] IMAGING [facility] Service: Unknown [facility] [address] [place] [address] (Case [id number] COMPLETE) CT THORAX W/CONT (PE) (CT Detailed) CPT:27437 Contrast Media : unspecified contrast media Reason [...] 05, 2024 Date Verified: MAR 05, 2024 Computer Operator E-Sig: Report: CT THORAX W/CONT (PE) [PRINTSET] HISTORY: chest pain, tachycardia COMPARISON: 02/12/2024 TECHNIQUE: Helical CT of the chest, with multiplanar reformats including maximum intensity projection (MIP) reconstructions, was performed at the local ID facility. 1529 images were received by the ID National Teleradiology Program (NTP) for interpretation. RADIATION [...] excluded. 3. Cardiomegaly. READING PHYSICIAN: Wilfred Roberts -[phone] 03/05/2024 7:32 [facility] National Teleradiology Program [phone] (For Medical Practitioner Use Only) Attention Patients / Veterans: If you have questions or concerns about these test results, please contact your ordering provider or primary care team. Primary Interpreting Staff: RADIOLOGY,OUTSIDE SERVICE, Staff Physician / RADIOLOGY,OUTSIDE SERVICE [facility] Mar 05, 2024 08:59 AM CHEST PORTABLE: JORDYN BAILEY [id number] -1985 M Ex Date: MAR 05, 2024@08:59 Req Phys: MUKESH MARINELLI Loc: [facility]ERGENCY DEPT 2ND SHIFT (R Img Loc: -MAIN RADIOLOGY SUITE Service: [address] [address] (Case [id number] COMPLETE) CHEST PORTABLE (RAD Detailed) CPT:13422 Proc Modifiers : Portable Reason for Study: chest pain Clinical History: Report Status: Verified Date Reported: MAR 05, 2024 Date Verified: MAR 05, 2024 Computer Operator E-Sig: Report: CHEST PORTABLE Comparison: 05/20/2023, 02/12/2024 Clinical History: chest pain The study was performed and supervised at the local ID facility, and subsequently transmitted to [facility] NTP (National Teleradiology Program) for interpretation. Impression: Lungs: Small left effusion with left basilar opacity which may represent atelectasis or consolidation.. Cardiomediastinal silhouette: No enlargement of the cardiomediastinal silhouette. Bones and soft tissues: No acute finding. READING PHYSICIAN: Sandeep Kraft M.D. -[id number] 03/05/2024 7:29 PST [facility] National Teleradiology Program [phone] (For Medical Practitioner Use Only) Attention Patients / Veterans: If you have questions or concerns about these test results, please contact your ordering provider or primary care team. Primary Interpreting Staff: RADIOLOGY,OUTSIDE SERVICE, Staff Physician / RADIOLOGY,OUTSIDE SERVICE [facility] Feb 12, 2024 02:[address] THORAX W/O CONT HIGH RES: JORDYN BAILEY ANTHONY [id number] -1985 M Exm Date: FEB 12, 2024@14:18 Req Phys: FLOYD WOO Loc: [facility]UL[facility] 1 (Req'g Loc) Img Loc: [facility] IMAGING [facility] Service: Unknown [facility], [facility] [address] [place] [address] (Case [id number] COMPLETE) CT THORAX W/O CONT HIGH RES (CT Detailed) CPT:99568 Reason for Study: chronic cough, exertional dyspnea, + hazardous exposure hx Clinical History: Responsible Attending: floyd woo PA-C Attending Contact Number: [phone] Resident Contact Number: Allergies listed in CPRS chart: SHELLFISH Creatinine: CREATININE 0.95 mg/dL 11/25/2023 11:00 /eGFR: STL EGFR (within one year). CREATININE 0.95 mg/dL (11/25/23 11:00) Wt: 218.3 lb [99.02 kg] (01/14/2024 08:55) History of: Renal failure, chronic or acute renal disease: NO Report Status: Verified Date Reported: FEB 15, 2024 Date Verified: FEB 15, 2024 Computer Operator E-Sig:/ES/Lynn Castro MD Report: CASE #: [id number] DATE:02/12/2024 4:23 PM CLINICAL HISTORY:chronic cough, exertional [...] Interpreting Staff: Lynn Castro MD, Radiologist (Computer Operator) /LYNN ONEILL [facility] Jan 28, 2024 02:20 PM HAND,RIGHT,3 OR MORE VIEWS: JORDYN BAILEY [id number] -1985 M Exm Date: JAN 28, 2024@14:20 Req Phys: KODAK MORTON T Pat Loc: [facility] PACT B5 NEW PATIENT (Re Img Loc: [facility] RADIOLOGY SUITE Service: Unknown [address] [address] (Case [id number] COMPLETE) HAND,RIGHT,3 OR MORE VIEWS (RAD Detailed) CPT:97766 Proc Modifiers : RIGHT Reason for Study: right hand feell stiff and pain specialy in morning Clinical History: right hand feell stiff and pain specialy in morning Report Status: Verified Date Reported: JAN 29, 2024 Date Verified: JAN 29, 2024 Computer Operator E-Sig:/ES/ART ENCARNACION MD Report: Case #[id number]. [...] ENCARNACION MD, Staff Physician - Radiologist (Computer Operator) /ART ANDRADE [facility] Jan 28, 2024 02:20 PM WRIST,RIGHT,3 OR MORE VIEWS: JORDYN BAILEY ANTHONY [id number] -1985 M Exm Date: JAN 28, 2024@14:20 Req Phys: KODAK MORTON Pat Loc: [facility] PACT B5 NEW PATIENT (Re Img Loc: [facility] RADIOLOGY SUITE Service: Unknown [facility] [address] (Case [id number] COMPLETE) WRIST,RIGHT,3 OR MORE VIEWS (RAD Detailed) CPT:03998 Proc Modifiers : RIGHT Reason for Study: right writs pain Clinical History: c/o right wroist pain Report Status: Verified Date Reported: JAN 29, 2024 Date Verified: JAN 29, 2024 Computer Operator E-Sig:/NATALIIA/ART ENCARNACION MD Report: Case #[id number]. Right [...] ENCARNACION MD, Staff Physician - Radiologist (Computer Operator) /ART ANDRADE [facility] Jan 28, 2024 02:20 PM HAND,LEFT,3 OR MORE VIEWS: JORDYN BAILEY [id number] -1985 M Exm Date: JAN 28, 2024@14:20 Req Phys: KODAK MORTON Pat Loc: [facility] PACT B5 NEW PATIENT (Re Img Loc: [facility] RADIOLOGY SUITE Service: [address] [address] (Case [id number] COMPLETE) HAND,LEFT,3 OR MORE VIEWS (RAD Detailed) CPT:09741 Proc Modifiers : LEFT Reason for Study: left hand feell stiff and pain specialy in morning Clinical History: eft hand feell stiff and pain specialy in morning Report Status: Verified Date Reported: JAN 29, 2024 Date Verified: JAN 29, 2024 Computer Operator E-Sig:/NATALIIA/ART ENCARNACION MD Report: Case #[id number]. Left [...] ENCARNACION MD, Staff Physician - Radiologist (Computer Operator) /ART ANDRADE [facility] Jan 28, 2024 02:20 PM WRIST,LEFT, 3 OR MORE VIEWS: JORDYN BAILEY [id number] -1985 M Exm Date: JAN 28, 2024@14:20 Req Phys: KODAK MORTON Pat Loc: [facility] PACT B5 NEW PATIENT (Re Img Loc: [facility] RADIOLOGY SUITE Service: [facility], [facility] [address] [place] [address] (Case [id number] COMPLETE) WRIST,LEFT, 3 OR MORE VIEWS (RAD Detailed) CPT:05791 Proc Modifiers : LEFT Reason for Study: c/o left wrist pain Clinical History: c/o left wrist pain Report Status: Verified Date Reported: JAN 29, 2024 Date Verified: JAN 29, 2024 Computer Operator E-Sig:/ES/ART ENCARNACION MD Report: Case #[id number]. [...] ENCARNACION MD, Staff Physician - Radiologist (Computer Operator) /ART ANDRADE [facility] Encounter Notes: All associated encounter notes This section contains the clinical notes associated to the Encounter. Date/Time Encounter Note(s) Provider Source Feb 17, 2024 01:19 PM PRIMARY CARE NOTE: LOCAL TITLE: PRIMARY CARE PROVIDER ESTABLISHED VISIT ST STANDARD TITLE: PRIMARY CARE NOTE DATE OF NOTE: FEB 17, 2024@13:19 ENTRY DATE: FEB 17, 2024@13:19:54 AUTHOR: SULLY BULL COSIGNER: URGENCY: STATUS: COMPLETED ESTABLISHED PATIENT [id number]: REASON FOR VISIT/CHIEF COMPLAINT: Review recent nerve conduction study HPI: A 39-year-old man with RA developed hands numbness/tingling, pain about a month ago, right worse than left. He presents today for a phone visit to review EMG findings from 02/08/2024. The [place] shared that his symptoms remain persistent in the bilateral upper extremities. He describes symptoms of weakness in the median distribution and reports that these symptoms are disabling, that they routinely disrupt sleep, or prevent the patient from carrying his iADLs. 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 WHAT IS YOUR GOAL FOR TODAY? To learn of the recent nerve conduction study results. PAST MEDICAL HISTORY: 1) Chronic back pain 2) Sleep apnea 3) Posttraumatic stress disorder 4) Major depressive disorder 5) Steatosis of liver 6) Obesity 7) Exposure to potentially hazardous substance 8) Allergic rhinitis 9) Insomnia ALLERGIES: SHELLFISH ALLERGY REVIEW: Allergy list reviewed and remains current. MEDICATION RECONCILIATION: I have reviewed the patient's medication list with the patient and/or his/her care-band top maker. Handwritten corrections, additions and/or deletions were made [...] ACTIVE MORNING TAKE WITH FOOD OR MILK. REVIEW OF SYSTEMS: General: Normal Respiratory: Normal Musculoskeletal/Extremities: Abnormal Weakness, Pain Psych: Normal PHYSICAL EXAMINATION: Male General appearance: VITALS (most recent, as listed in the electronic record): B/P: 128/86 (01/26/2024 13:15) Pulse: 80 (01/26/2024 13:15) Temperature: 98 F [36.7 C] (01/26/2024 13:15) Weight: 220.1 lb [99.84 kg] (01/26/2024 13:15) Height: 71 in [180.3 cm] (01/26/2024 13:15) BMI: 30.8 Pain: 4 (01/26/2024:15) (0-10 scale) Extremities: Limited exam via a telephone visit. Physical exam during the EMG study on 02/08/2024 demonstrated normal strength but reduced sensation in bilateral median nerve distribution. DATA REVIEW: NCS Findings 02/08/2024: 1. Bilateral median motor studies showed prolonged DMLs, right more than right, normal CMAP amplitudes and MNCVs. 2. Bilateral ulnar motor studies showed normal DMLs, CMAP amplitudes and MNCVs. 3. Right median orthodromic sensory study showed no response. 4. Left median orthodromic sensory study showed prolonged peak latency, low SNAP amplitude and slow SNCV. 5. Bilateral ulnar orthodromic sensory studies showed normal peak latencies, SNAP amplitudes and SNCVs. 6. Left radial antidromic sensory study showed normal peak latency, SNAP amplitude and SNCV. EMG Concentric needle examination was performed in right median and ulnar nerve innervated distal muscles. There was no increased insertional activity, spontaneous activity such as fibrillation or positive sharp wave. Recruitment was normal. Conclusion: This is an abnormal study. There is electrophysiological evidence of moderate bilateral carpal tunnel syndrome, right worse than left. Clinical correlation is suggested. Follow-up Action: Consult surgery for evaluation and recommendations for treatment. Data results reviewed with patient. ASSESSMENT/PLAN: 1. Bilateral carpal tunnel syndrome. -Consulted surgery consult for evaluation and treatment recommendations of the bilateral carpal tunnel syndrome. -Continue diclofenac 50 mg twice a day. -Continue to wear bilateral wrist splints. RETURN TO CLINIC: Return to Clinic order placed SUMMARY STATEMENT: Plan of care has been discussed with including expected therapeutic benefits and potential side effects of prescribed medication and treatments. [place] verbalizes understanding and is in agreement with the plan of care. Patient was instructed to keep all scheduled appointments and contact health program manager for any additional problems. PREVENTION & SCREENING: ALCOHOL: Clinical Reminder not due now or within a month BLOOD PRESSURE: Clinical Reminder not due now or within a month HEMOGLOBIN A1C: Clinical Reminder not due now or within a month /nataliia/ SULLY BULL NURSE PRACTITIONER Signed: 02/17/2024 14:10 Receipt Acknowledged By: 02/18/2024 12:22 /es/ Kodak Morton MD Staff Physician 02/17/2024 15:22 /es/ NOELLE MAGALLANESN RN REGISTERED NURSE SULLY BULL [facility]
--- OUTSIDE RECORDS SUMMARY | 2024-03-31 01:08 | XMS_ITS | Encounter Summary ---
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 Name Role Phone KODAK MORTON Primary Care [...] CHOIC E PREFE RR Apr 13, 2020 [id number] [phone] BOOGIE BAILEY ANDON PATIENT ANTHEM [employer] [place] PREFERRED PROVIDER ORGANIZAT ION (PPO) BLUE CHOIC E PREFE RR Apr 13, 2020 [id number] [phone] BOOGIE BAILEY ANDON PATIENT ANTHEM [employer] [place] PREFERRED PROVIDER ORGANIZAT ION (PPO) BLUE CHOIC E PREFE RR Apr 13, 2020 [id number] [phone] BOOGIE BAILEY ANDCARLA PATIENT [employer] [place] PREFERRED PROVIDER ORGANIZAT ION (PPO) BLUE CHOIC E PREFE RR Apr 13, 2020 [id number] [phone] BOOGIE BAILEY PATIENT PRIME THERAPEUTI CS RX PRESCRIPT ION BCBSI L [place] Apr 13, 2020 [id number] [phone] BOOGIE BAILEY PATIENT [facility] 2018 TRICA RE May 10, 2019 SELECT [id number] BOOGIE BAILEY PATIENT Selected Encounter This section includes the information on record at [place] for the Encounter. Date/Time Encounter Type Encounter Description Reason Provider Source Mar 04, 2024 03:44 PM Outpatient Encounter PRIMARY CARE/MEDICINE CHICO BECKWITH Valentin Encounter Template Text not used by [place] Plan of Treatment: Future Appointments (+ 6 [...] 20 appointments. The data comes from all [facility]. Appointment Date/Time Appointment Type Appointme nt Facility Name Mar 05, 2024 08:43 AM AMBULATORY - MEDICINE [facility] Mar 16, 2024 10:15 AM AMBULATORY - SURGERY [facility] Mar 21, 2024 12:14 PM AMBULATORY - MEDICINE [facility] Apr 01, 2024 10:00 AM AMBULATORY - PSYCHIATRY [facility] Apr 28, 2024 03:00 PM AMBULATORY - MEDICINE [facility] May 05, 2024 11:30 AM AMBULATORY - MEDICINE [facility] May 27, 2024 11:00 AM AMBULATORY [...] of theEncounter. The data comes from all [facility]. Test Date/Time Test Type Test Details Facility Name Jan 26, 2024 02:11 PM Consult Order RHEUMATOLO GY OUTPATIENT STL Cons Credit Assistant's Choice [facility] Feb 17, 2024 01:16 PM Consult Order PLASTIC SHELLEY RGERY OUTPT STL Cons Credit Assistant's [facility] Mar 16, 2024 10:22 AM Consult Order [facility] PLASTIC SURG Cons Credit Assistant's [facility] Mar 21, 2024 03:48 PM Procedure Order CP EKG STL CP EKG - STL [facility] Lab Results: +/- 30 days of the encounter This section includes the Chemistry and Hematology Lab Results on record with [place] for the patient. Radiology Reports and Pathology Reports are provided separately, in subsequent sections. Lab Results This section contains the Chemistry/Hematology Results that were resulted 30 days before or 30 daysafter the date of the Encounter. Date/Time Source Result Type Result - Unit Interpretation Reference Range Comment Mar 21, 2024 12:30 PM [facility] COMPREHENSIVE METABOLIC PANEL Specimen Type: PLASMA Comment: No hemolysis noted. Ordering Provider: SUSAN BROWN Report Released Date/Time: Mar 21, 2024 12:23 PM Reporting Lab: [address] [address] Performing Lab: [address] [address] CREATININE 1.00 mg/dL 0.7-1.3 UREA NITROGEN 18.1 [...] 98.2 >60 Mar 21, 2024 12:30 PM [facility] CBC Specimen Type: BLOOD No comment entered. Ordering Provider: SUSAN BROWN Report Released Date/Time: Mar 21, 2024 12:23 PM Reporting Lab: [facility] [address] [facility] [address] Performing Lab: [address] [address] WBC 7.2 10*3/uL 3.6-11.2 RBC 4.24 10*6/uL [...] 10*3/uL 0.00-0.20 Mar 05, 2024 11:10 AM [facility] TROPONIN I Specimen Type: PLASMA No comment entered. Ordering Provider: MUKESH MARINELLI Report Released Date/Time: Mar 05, 2024 11:04 AM Reporting Lab: [address] [address] Performing Lab: [address] [address] TROPONIN I <0.010 ng/mL 0-0.033 Mar 05, 2024 09:50 AM [facility] RESPIRATORY PCR PANEL Specimen Type: NASOPHARYNX [...] available to the clinician evaluating the patient. [place] FilmKelly Skinner, ([phone]) Ordering Provider: MUKSEH MARINELLI Report Released Date/Time: Mar 05, 2024 09:39 AM Reporting Lab: [facility] [address] [facility] [address] Performing Lab: [place] [address] [facility] [address] *Adenovirus (BF) Not Detected Not Detected *Coronavirus [...] Detected Mar 05, 2024 09:00 AM [facility] CBC Specimen Type: BLOOD No comment entered. Ordering Provider: MUKESH MARINELLI Report Released Date/Time: Mar 05, 2024 08:52 AM Reporting Lab: [facility] [address] [facility] [address] Performing Lab: [facility] [address] [address] WBC 7.1 10*3/uL 3.6-11.2 RBC 4.84 10*6/uL [...] 0.00-0.20 Mar 05, 2024 09:00 AM [facility] TROPONIN I Specimen Type: PLASMA Comment: No hemolysis noted. Ordering Provider: MUKESH MARINELLI Report Released Date/Time: Mar 05, 2024 08:52 AM Reporting Lab: [address] [address] Performing Lab: [address] [address] TROPONIN I 0.013 ng/mL 0-0.033 Mar 05, 2024 09:00 AM [facility] TSH (MA-PB) Specimen Type: SERUM No comment entered. Ordering Provider: MUKESH MARINELLI Report Released Date/Time: Mar 05, 2024 09:39 AM Reporting Lab: [address] [address] Performing Lab: [address] [address] TSH 0.283 u[IU]/mL L 0.47-5 FREE T4(REFLEX) 1.10 ng/mL 0.7-1.48 Mar 05, 2024 09:00 AM [facility] BRAIN NATRIURETIC PEPTIDE Specimen Type: PLASMA No comment entered. Ordering Provider: MUKESH MARINELLI Report Released Date/Time: Mar 05, 2024 09:39 AM Reporting Lab: [facility] [address] [place] [address] Performing Lab: [address] [address] BRAIN NATRIURETIC PEPTIDE 16.2 pg/mL 0-100 Mar 05, 2024 09:00 AM [facility] COMPREHENSIVE METABOLIC PANEL Specimen Type: PLASMA Comment: No hemolysis noted. Ordering Provider: MUKESH MARINELLI Report Released Date/Time: Mar 05, 2024 08:52 AM Reporting Lab: [address] [address] Performing Lab: [address] [address] CREATININE 0.92 mg/dL 0.7-1.3 UREA NITROGEN 15.6 [...] and tobacco- related health factors from the [facility] where the Encounter took place. Current Smoking Status This section includes the most current smoking, or tobacco-related health factor, from the [place] facility where the Encounter took place. Date/Time Current Smoking Status Comment Nicolas allen Feb 26, 2021 03:59 PM [place]-TOBACCO NEVER USED [facility] Radiology Reports: +/- 30 days of [...] the Encounter. The data comes from all [place] treatment facilities. Date/Time Radiology Report Provider Source Mar 21, 2024 12:34 PM CHEST X-RAY, 2 VIEWS: JORDYN BAILEY [id number] -1985 M Exm Date: MAR 21, 2024@12:34 Req Phys: SUSAN BROWN Loc: -EMERGENCY DEPT 2ND SHIFT (R Img Loc: -MAIN RADIOLOGY SUITE Service: [address] [address] (Case [id number] COMPLETE) CHEST X-RAY, 2 VIEWS (RAD Detailed) CPT:80011 Reason for Study: cough, SOB Clinical History: Report Status: Verified Date Reported: MAR 21, 2024 Date Verified: MAR 21, 2024 Clothes Wringer E-Sig:/ES/Lynn Castro MD Report: CHEST X-RAY, 2 VIEWS CASE #: [id number] DATE:03/21/2024 12:39 PM CLINICAL HISTORY:cough, SOB COMPARISON: 03/05/2024, 05/20/2023, 05/28/2022 TECHNIQUE: CHEST X-RAY, 2 VIEWS Impression: FINDINGS/IMPRESSION: Low lung volumes. Top normal heart size. No CHF. Bibasilar atelectasis versus pneumonia. Correlate clinically. No pleural effusion. No pneumothorax. Primary Interpreting Staff: Lynn Castro MD, Radiologist (Clothes Wringer) /TE LYNN CASTRO [facility] Mar 05, 2024 10:[address] PE CHEST W/3D: JORDYN BAILEY [id number] -1985 M Exm Date: MAR 05, 2024@10:00 Req Phys: MUKESH MARINELLI Loc: [facility]-EMERGENCY DEPT 2ND SHIFT (R Img Loc: [facility]-CT IMAGING [facility] Service: Unknown [facility] [address] [place] [address] (Case [id number] COMPLETE) CT THORAX W/CONT (PE) (CT Detailed) CPT:80949 Contrast Media : unspecified contrast media Reason [...] 05, 2024 Date Verified: MAR 05, 2024 Clothes Wringer E-Sig: Report: CT THORAX W/CONT (PE) [PRINTSET] HISTORY: chest pain, tachycardia COMPARISON: 02/12/2024 TECHNIQUE: Helical CT of the chest, with multiplanar reformats including maximum intensity projection (MIP) reconstructions, was performed at the local [place] facility. 1529 images were received by the [place] National [facility] (NTP) for interpretation. RADIATION [...] excluded. 3. Cardiomegaly. READING PHYSICIAN: Wilfred Roberts -[phone] 03/05/2024 7:32 [facility] [phone] (For Medical Practitioner Use Only) Attention Patients / Veterans: If you have questions or concerns about these test results, please contact your ordering provider or primary care team. Primary Interpreting Staff: RADIOLOGY,OUTSIDE SERVICE, Staff Physician / RADIOLOGY,OUTSIDE SERVICE [facility] Mar 05, 2024 08:59 AM CHEST PORTABLE: JORDYN BAILEY [id number] -1985 M Exm Date: MAR 05, 2024@08:59 Req Phys: MUKESH MARINELLI Loc: [facility]-EMERGENCY DEPT 2ND SHIFT (R Img Loc: -MAIN RADIOLOGY SUITE Service: [address] [address] (Case [id number] COMPLETE) CHEST PORTABLE (RAD Detailed) CPT:27278 Proc Modifiers : Portable Reason for Study: chest pain Clinical History: Report Status: Verified Date Reported: MAR 05, 2024 Date Verified: MAR 05, 2024 Clothes Wringer E-Sig: Report: CHEST PORTABLE Comparison: 05/20/2023, 02/12/2024 Clinical History: chest pain The study was performed and supervised at the local [place] facility, and subsequently transmitted to [facility] NTP (National Teleradiology Program) for interpretation. Impression: Lungs: Small left effusion with left basilar opacity which may represent atelectasis or consolidation.. Cardiomediastinal silhouette: No enlargement of the cardiomediastinal silhouette. Bones and soft tissues: No acute finding. READING PHYSICIAN: Sandeep Kraft M.D. -[phone] 03/05/2024 7:29 PST [facility] National Teleradiology Program [phone] (For Medical Practitioner Use Only) Attention Patients / Veterans: If you have questions or concerns about these test results, please contact your ordering provider or primary care team. Primary Interpreting Staff: RADIOLOGY,OUTSIDE SERVICE, Staff Physician / RADIOLOGY,OUTSIDE SERVICE [facility] Feb 12, 2024 02:[address] THORAX W/O CONT HIGH RES: JORDYN BAILEY [id number] -1985 M Exm Date: FEB 12, 2024@14:18 Req Phys: FLOYD WOO Loc: [facility]-PULM GURINDER 1 (Req'g Loc) Img Loc: [facility]-CT IMAGING [facility] Service: Unknown [facility], [facility] [address] [place] [address] (Case [id number] COMPLETE) CT THORAX W/O CONT HIGH RES (CT Detailed) CPT:30822 Reason for Study: chronic cough, exertional dyspnea, + hazardous exposure hx Clinical History: Responsible Attending: floyd woo PA-C Attending Contact Number: [phone] Resident Contact Number: Allergies listed in CPRS chart: SHELLFISH Creatinine: CREATININE 0.95 mg/dL 11/25/2023 11:00 /eGFR: STL EGFR (within one year). CREATININE 0.95 mg/dL (11/25/23 11:00) Wt: 218.3 lb [99.02 kg] (01/14/2024 08:55) History of: Renal failure, chronic or acute renal disease: NO Report Status: Verified Date Reported: FEB 15, 2024 Date Verified: FEB 15, 2024 Clothes Wringer E-Sig:/ES/Lynn Castro MD Report: CASE #: [id number] DATE:02/12/2024 4:23 PM CLINICAL HISTORY:chronic cough, exertional [...] Primary Interpreting Staff: Lynn Castro MD, Radiologist (Clothes Wringer) /LYNN ONEILL [facility] Encounter Notes: All associated encounter notes This section contains the clinical notes associated to the Encounter. Date/Time Encounter Note(s) Provider Source Mar 04, 2024 03:44 PM PRIMARY CARE SECURE MESSAGING: LOCAL TITLE: PRIMARY CARE SECURE MESSAGING STANDARD TITLE: PRIMARY CARE SECURE MESSAGING DATE OF NOTE: MAR 04, 2024@15:44 ENTRY DATE: MAR 04, 2024@14:44:35 AUTHOR: CHICO BECKWITH EXP COSIGNER: URGENCY: STATUS: COMPLETED PRIMARY CARE SECURE MESSAGING Has ADDENDA ------Original Message ---- Sent: 03/04/2024 07:48 AM ET From: JORDYN BAILEY To: [facility], 8_SELENE, [facility] Subject: General:Throat Pain Dr. Morton, Due to the pain i am having with my Carpal Tunnel i have been taking a lot of Ibuprofen for it, not i discovered i am having a somewhat hard time swallowing food. After doing some research i think i may have developed a throat ulcer, and they said to contact my doctor immediately. of right now i can swallow food with very little issues, and i am going to stop the ibuprofen. Is there a way forward with this new issue? Thank you! ------Original Message ---- Sent: 03/04/2024 03:44 PM ET From: CHICO BECKWITH To: JORDYN BAILEY Subject: General:Throat Pain Hello Mr. Bailey, Per our conversation on the phone - you are requesting PCP renew PANTOPRAZOLE TAB,EC 40MG TAKE ONE TABLET BY MOUTH EVERY MORNING BEFORE A MEAL TAKE 30 MINUTES BEFORE MEAL(S) Quantity: 60 Refills: 0 Indication: FOR GASTROESOPHAGEAL REFLUX DISEASE and PREDNISONE TAB 20MG TAKE ONE TABLET BY MOUTH EVERY MORNING TAKE WITH FOOD OR MILK. Quantity: 4 Refills: 0 Indication: FOR GOUT FLARE Respectfully, Chico ALAN /nataliia/ CHICO BECKWITH MSM, RN,[facility] REGISTERED NURSE Signed: 03/04/2024 14:44 03/08/2024 ADDENDUM STATUS: COMPLETED RNCM called pt- provided education that PCP had renewed pantoprozole for treatment of GERD /es/ CHICO BECKWITH MSM, RN,[facility] REGISTERED NURSE Signed: 03/08/2024 14:55 CHICO BECKWITH [facility]
--- OUTSIDE RECORDS SUMMARY | 2024-03-31 01:08 | XMS_ITS | Encounter Summary ---
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 Role Phone KODAK MORTON [...] CHOIC E PREFE RR Apr 13, 2020 [id number] [phone] BOOGIE BAILEY ANDON PATIENT ANTHEM [employer] [place] PREFERRED PROVIDER ORGANIZAT ION (PPO) BLUE CHOIC E PREFE RR Apr 13, 2020 [id number] [phone] BOOGIE BAILEY ANDON PATIENT ANTHEM [employer] [place] PREFERRED PROVIDER ORGANIZAT ION (PPO) BLUE CHOIC E PREFE RR Apr 13, 2020 [id number] [phone] BOOGIE BAILEY ANDCARLA PATIENT [employer] PREFERRED PROVIDER ORGANIZAT ION (PPO) BLUE CHOIC E PREFE RR Apr 13, 2020 [id number] [phone] BOOGIE BAILEY PATIENT PRIME THERAPEUTI CS RX PRESCRIPT ION BCBSI L [place] Apr 13, 2020 [id number] [id number] [phone] [facility] [address] [place] May 10, 2019 SELECT [id number] BOOGIE BAILEY PATIENT Selected Encounter This section includes the information on record at [place] for the Encounter. Date/Time Encounter Type Encounter Description Reason Provider Source Feb 23, 2024 09:31 AM Outpatient Encounter PRIMARY CARE/MEDICINE NOELLE FLORES Valentin Encounter Template Text not used by DC [...] 20 appointments. The data comes from all [facility] facilities. Appointment Date/Time Appointment Type Appointme nt Facility Name Feb 25, 2024 09:30 AM AMBULATORY - MEDICINE [facility] Mar 05, 2024 08:43 AM AMBULATORY - MEDICINE [facility] Mar 16, 2024 10:15 AM AMBULATORY - SURGERY [facility] Mar 21, 2024 12:14 PM AMBULATORY - MEDICINE [facility] Apr 01, 2024 10:00 AM AMBULATORY - PSYCHIATRY [facility] Apr 28, 2024 03:00 PM AMBULATORY - MEDICINE [facility] May 05, 2024 11:30 AM AMBULATORY - MEDICINE [facility] May 27, 2024 11:00 [...] of theEncounter. The data comes from all [facility]. Test Date/Time Test Type Test Details Facility Name Jan 26, 2024 02:11 PM Consult Order RHEUMATOLO GY OUTPATIENT STL [facility] [employer] [facility] Feb 17, 2024 01:16 PM Consult Order PLASTIC SHELLEY RGERY OUTPT STL [facility] [employer] [facility] Mar 16, 2024 10:22 AM Consult Order [facility] PLASTIC SURG [facility] [employer] Mar 21, 2024 03:48 PM Procedure Order CP EKG STL CP EKG - STL Proc [employer] [facility] Lab Results: +/- 30 days of the encounter This section includes the Chemistry and Hematology Lab Results on record with [place] for the patient. Radiology Reports and Pathology Reports are provided separately, in subsequent sections. Lab Results This section contains the Chemistry/Hematology Results that were resulted 30 days before or 30 daysafter the date of the Encounter. Date/Time Source Result Type Result - Unit Interpretation Reference Range Comment Mar 21, 2024 12:30 PM [facility] COMPREHENSIVE METABOLIC PANEL Specimen Type: PLASMA Comment: No hemolysis noted. Ordering Provider: SUSAN BROWN Report Released Date/Time: Mar 21, 2024 12:23 PM Reporting Lab: [facility] [address] [facility] [address] Performing Lab: [address] [address] CREATININE 1.00 mg/dL 0.7-1.3 UREA NITROGEN 18.1 [...] 98.2 >60 Mar 21, 2024 12:30 PM [facility] CBC Specimen Type: BLOOD No comment entered. Ordering Provider: SUSAN BROWN Report Released Date/Time: Mar 21, 2024 12:23 PM Reporting Lab: [facility] [address] [facility] [address] Performing Lab: [place] [address] [facility] [address] WBC 7.2 10*3/uL 3.6-11.2 RBC 4.24 10*6/uL [...] 10*3/uL 0.00-0.20 Mar 05, 2024 11:10 AM [facility] TROPONIN I Specimen Type: PLASMA No comment entered. Ordering Provider: MUKESH MARINELLI Report Released Date/Time: Mar 05, 2024 11:04 AM Reporting Lab: [place] [id number] [facility] [address] Performing Lab: [address] [address] TROPONIN I <0.010 ng/mL 0-0.033 Mar 05, 2024 09:50 AM [facility] RESPIRATORY PCR PANEL Specimen Type: NASOPHARYNX [...] the clinician evaluating the patient. Claudio GREEN, (386) Ordering Provider: MUKESH MARINELLI Report Released Date/Time: Mar 05, 2024 09:39 AM Reporting Lab: [facility] [address] [facility] [address] Performing Lab: [facility] [address] [facility] [address] *Adenovirus (BF) Not Detected Not Detected *Coronavirus [...] Not Detected Mar 05, 2024 09:00 AM [facility] CBC Specimen Type: BLOOD No comment entered. Ordering Provider: MUKESH MARINELLI Report Released Date/Time: Mar 05, 2024 08:52 AM Reporting Lab: [facility] [address] [facility] [address] Performing Lab: [facility] [address] [facility] [address] WBC 7.1 10*3/uL 3.6-11.2 RBC 4.84 10*6/uL [...] 10*3/uL 0.00-0.20 Mar 05, 2024 09:00 AM [facility] TROPONIN I Specimen Type: PLASMA Comment: No hemolysis noted. Ordering Provider: MUKESH MARINELLI Report Released Date/Time: Mar 05, 2024 08:52 AM Reporting Lab: [address] [address] Performing Lab: [address] [address] TROPONIN I 0.013 ng/mL 0-0.033 Mar 05, 2024 09:00 AM [facility] TSH (MA-PB) Specimen Type: SERUM No comment entered. Ordering Provider: MUKESH MARINELLI Report Released Date/Time: Mar 05, 2024 09:39 AM Reporting Lab: [address] [address] Performing Lab: [address] [address] TSH 0.283 u[IU]/mL L 0.47-5 FREE T4(REFLEX) 1.10 ng/mL 0.7-1.48 Mar 05, 2024 09:00 AM [facility] BRAIN NATRIURETIC PEPTIDE Specimen Type: PLASMA No comment entered. Ordering Provider: MUKESH MARINELLI Report Released Date/Time: Mar 05, 2024 09:39 AM Reporting Lab: [facility] [address] [facility] [address] Performing Lab: [facility] [address] [facility] [address] BRAIN NATRIURETIC PEPTIDE 16.2 pg/mL 0-100 Mar 05, 2024 09:00 AM [facility] COMPREHENSIVE METABOLIC PANEL Specimen Type: PLASMA Comment: No hemolysis noted. Ordering Provider: MUKESH MARINELLI Report Released Date/Time: Mar 05, 2024 08:52 AM Reporting Lab: [facility] [address] [facility] [address] Performing Lab: [facility] [address] [facility] [facility] [address] CREATININE 0.92 mg/dL 0.7-1.3 UREA NITROGEN 15.6 [...] 108.5 >60 Jan 26, 2024 02:47 PM [facility] ESR ISED(STL) Specimen Type: BLOOD No comment entered. Ordering Provider: KODAK MORTON Report Released Date/Time: Jan 26, 2024 02:11 PM Reporting Lab: [facility] [address] [facility] [facility] [address] Performing Lab: [facility] [address] [facility] [address] ESR ISED(STL) 35 mm/h H 0-14 Jan 26, 2024 02:47 PM [facility] CRP Specimen Type: PLASMA No comment entered. Ordering Provider: KODAK MORTON Report Released Date/Time: Jan 26, 2024 02:11 PM Reporting Lab: [facility] [address] [facility] [address] Performing Lab: [facility] [address] [facility] [address] CRP 0.6 mg/dL H 0-0.5 Jan 26, 2024 02:47 PM [facility] RHEUMATOID FACTOR (STL) Specimen Type: SERUM No comment entered. Ordering Provider: KODAK MORTON Report Released Date/Time: Jan 26, 2024 02:19 PM Reporting Lab: [facility] [address] [facility] [address] Performing Lab: [facility] [address] [facility] [address] RHEUMATOID FACTOR (STL) <15.0 0-29 Social History: [...] 26, 2021 03:59 PM VA-TOBACCO NEVER USED [facility] Radiology Reports: +/- 30 days of [...] the Encounter. The data comes from all [place] treatment facilities. Date/Time Radiology Report Provider Source Mar 21, 2024 12:34 PM CHEST X-RAY, 2 VIEWS: JORDYN BAILEY [id number] -1985 M Exm Date: MAR 21, 2024@12:34 Req Phys: SUSAN BROWN Loc: [facility]-EMERGENCY DEPT 2ND SHIFT (R Img Loc: -MAIN RADIOLOGY SUITE Service: Unknown [address] [address] (Case [id number] COMPLETE) CHEST X-RAY, 2 VIEWS (RAD Detailed) CPT:22190 Reason for Study: cough, SOB Clinical History: Report Status: Verified Date Reported: MAR 21, 2024 Date Verified: MAR 21, 2024 [employer] E-Sig:/ES/Lynn Castro MD Report: CHEST X-RAY, 2 VIEWS CASE #: [id number] DATE:03/21/2024 12:39 PM CLINICAL HISTORY:cough, SOB COMPARISON: 03/05/2024, 05/20/2023, 05/28/2022 TECHNIQUE: CHEST X-RAY, 2 VIEWS Impression: FINDINGS/IMPRESSION: Low lung volumes. Top normal heart size. No CHF. Bibasilar atelectasis versus pneumonia. Correlate clinically. No pleural effusion. No pneumothorax. Primary Interpreting Staff: Lynn Castro MD, Radiologist ([employer]) /LYNN ONEILL [facility] Mar 05, 2024 10:[address] PE CHEST W/3D: JORDYN BAILEY ANTHONY [id number] -1985 M Exm Date: MAR 05, 2024@10:00 Req Phys: MUKESH MARINELLI Loc: -EMERGENCY DEPT 2ND SHIFT (R Img Loc: -CT IMAGING [facility] Service: Unknown [address] [address] (Case [id number] COMPLETE) CT THORAX W/CONT (PE) (CT Detailed) CPT:93177 Contrast Media : unspecified contrast media Reason [...] 05, 2024 Date Verified: MAR 05, 2024 [employer] E-Sig: Report: CT THORAX W/CONT (PE) [PRINTSET] HISTORY: chest pain, tachycardia COMPARISON: 02/12/2024 TECHNIQUE: Helical CT of the chest, with multiplanar reformats including maximum intensity projection (MIP) reconstructions, was performed at the local [place] facility. 1529 images were received by the [place] National Teleradiology Program (NTP) for interpretation. RADIATION [...] excluded. 3. Cardiomegaly. READING PHYSICIAN: Wilfred Roberts -[phone] 03/05/2024 7:32 [facility] National Teleradiology Program [phone] (For Medical Practitioner Use Only) Attention Patients / Veterans: If you have questions or concerns about these test results, please contact your ordering provider or primary care team. Primary Interpreting Staff: RADIOLOGY,OUTSIDE SERVICE, Staff Physician / RADIOLOGY,OUTSIDE SERVICE [facility] Mar 05, 2024 08:59 AM CHEST PORTABLE: JORDYN BAILEY [id number] -1985 M Exm Date: MAR 05, 2024@08:59 Req Phys: MARINELLIMUKESH S Pat Loc: [facility]-EMERGENCY DEPT 2ND SHIFT (R Img Loc: [facility]-MAIN RADIOLOGY SUITE Service: Unknown [facility] [address] [place] [address] (Case [id number] COMPLETE) CHEST PORTABLE (RAD Detailed) CPT:40014 Proc Modifiers : Portable Reason for Study: chest pain Clinical History: Report Status: Verified Date Reported: MAR 05, 2024 Date Verified: MAR 05, 2024 [employer] E-Sig: Report: CHEST PORTABLE Comparison: 05/20/2023, 02/12/2024 Clinical History: chest pain The study was performed and supervised at the local [place] facility, and subsequently transmitted to [facility] NTP (National Teleradiology Program) for interpretation. Impression: Lungs: Small left effusion with left basilar opacity which may represent atelectasis or consolidation.. Cardiomediastinal silhouette: No enlargement of the cardiomediastinal silhouette. Bones and soft tissues: No acute finding. READING PHYSICIAN: Sandeep Kraft M.D. -[phone] 03/05/2024 7:29 PST [facility] National Teleradiology Program [phone] (For Medical Practitioner Use Only) Attention Patients / Veterans: If you have questions or concerns about these test results, please contact your ordering provider or primary care team. Primary Interpreting Staff: RADIOLOGY,OUTSIDE SERVICE, Staff Physician / RADIOLOGY,OUTSIDE SERVICE [facility] Feb 12, 2024 02:[address] THORAX W/O CONT HIGH RES: JORDYN BAILEY [id number] -1985 M Exm Date: FEB 12, 2024@14:18 Req Phys: FLOYD WOO Pat Loc: -PULM PA 1 (Req'g Loc) Img Loc: -CT IMAGING [facility] Service: Unknown [facility], [facility] [address] [place] [address] (Case [id number] COMPLETE) CT THORAX W/O CONT HIGH RES (CT Detailed) CPT:03785 Reason for Study: chronic cough, exertional dyspnea, + hazardous exposure hx Clinical History: Responsible Attending: floyd woo PA-C Attending Contact Number: [phone] Resident Contact Number: Allergies listed in CPRS chart: SHELLFISH Creatinine: CREATININE 0.95 mg/dL 11/25/2023 11:00 /eGFR: STL EGFR (within one year). CREATININE 0.95 mg/dL (11/25/23 11:00) Wt: 218.3 lb [99.02 kg] (01/14/2024 08:55) History of: Renal failure, chronic or acute renal disease: NO Report Status: Verified Date Reported: FEB 15, 2024 Date Verified: FEB 15, 2024 [employer] E-Sig:/ES/Lynn Castro MD Report: CASE #: [id number] DATE:02/12/2024 4:23 PM CLINICAL HISTORY:chronic cough, exertional [...] Primary Interpreting Staff: Lynn Castro MD, Radiologist (Member [employer]) /LYNN ONEILL [facility] Jan 28, 2024 02:20 PM HAND,RIGHT,3 OR MORE VIEWS: JORDYN BAILEY [id number] -1985 M Ex Date: JAN 28, 2024@14:20 Req Phys: KODAK MORTON Loc: [facility] PACT B5 NEW PATIENT (Re Img Loc: -MAIN RADIOLOGY SUITE Service: Unknown [facility] [address] [place] [address] (Case [id number] COMPLETE) HAND,RIGHT,3 OR MORE VIEWS (RAD Detailed) CPT:77891 Proc Modifiers : RIGHT Reason for Study: right hand feell stiff and pain specialy in morning Clinical History: right hand feell stiff and pain specialy in morning Report Status: Verified Date Reported: JAN 29, 2024 Date Verified: JAN 29, 2024 [employer] E-Sig:/ES/ART ENCARNACION MD Report: Case #[id number]. Right hand examination. Finding: Three views of the right hand examination shows no fracture dislocation. No evidence of lytic or blastic bony lesion. No joint space narrowing or marginal erosion. No soft tissue swelling, radiopaque foreign body or abnormal calcification. Impression: No fracture dislocation or arthritic change. Primary Interpreting Staff: ART ENCARNACION MD, Staff Physician - Radiologist ([employer]) /ART ANDRADE [facility] Jan 28, 2024 02:20 PM WRIST,RIGHT,3 OR MORE VIEWS: LYNNJORDYN ANTHONY [id number] -1985 M Exm Date: JAN 28, 2024@14:20 Req Phys: KODAK MORTON Pat Loc: [facility] PACT B5 NEW PATIENT (Re Img Loc: -[facility] RADIOLOGY SUITE Service: [facility] [place], [facility], [address] [address] (Case [id number] COMPLETE) WRIST,RIGHT,3 OR MORE VIEWS (RAD Detailed) CPT:69754 Proc Modifiers : RIGHT Reason for Study: right writs pain Clinical History: c/o right wroist pain Report Status: Verified Date Reported: JAN 29, 2024 Date Verified: JAN 29, 2024 [employer] E-Sig:/ES/ART ENCARNACION MD Report: Case #[id number]. Right [...] ART ENCARNACION MD, Staff Physician - Radiologist (Member [employer]) /ART ANDRADE [facility] Jan 28, 2024 02:20 PM HAND,LEFT,3 OR MORE VIEWS: JORDYN BAILEY [id number] -1985 M Exm Date: JAN 28, 2024@14:20 Req Phys: KODAK MORTON Pat Loc: [facility] PACT B5 NEW PATIENT (Re Img Loc: [facility] RADIOLOGY SUITE Service: Unknown [facility] [address] [place] [address] (Case [id number] COMPLETE) HAND,LEFT,3 OR MORE VIEWS (RAD Detailed) CPT:89045 Proc Modifiers : LEFT Reason for Study: left hand feell stiff and pain specialy in morning Clinical History: eft hand feell stiff and pain specialy in morning Report Status: Verified Date Reported: JAN 29, 2024 Date Verified: JAN 29, 2024 [employer] E-Sig:/ES/ART ENCARNACION MD Report: Case #[id number]. Left hand examination. Finding: Three views of the left hand examination shows no fracture dislocation. No evidence of lytic or blastic bony lesion. No joint space narrowing or marginal erosion. No soft tissue swelling, radiopaque foreign body or abnormal calcification. Impression: No fracture dislocation or arthritic change. Primary Interpreting Staff: ART ENCARNACION MD, Staff Physician - Radiologist (Member [employer]) /ART ANDRADE [facility] Jan 28, 2024 02:20 PM WRIST,LEFT, 3 OR MORE VIEWS: JORDYN BAILEY ANTHONY [id number] -1985 M Exm Date: JAN 28, 2024@14:20 Req Phys: KODAK MORTON Loc: [facility] PACT B5 NEW PATIENT (Re Img Loc: [facility] RADIOLOGY SUITE Service: Unknown [facility] [address] [place] [address] (Case [id number] COMPLETE) WRIST,LEFT, 3 OR MORE VIEWS (RAD Detailed) CPT:17318 Proc Modifiers : LEFT Reason for Study: c/o left wrist pain Clinical History: c/o left wrist pain Report Status: Verified Date Reported: JAN 29, 2024 Date Verified: JAN 29, 2024 Member [employer] E-Sig:/NATALIIA/ART ENCARNACION MD Report: Case #[id number]. Left [...] ART ENCARNACION MD, Staff Physician - Radiologist (Member [employer]) /ART ANDRADE [facility] Encounter Notes: All associated encounter notes This section contains the clinical notes associated to the Encounter. Date/Time Encounter Note(s) Provider Source Feb 23, 2024 09:31 AM PRIMARY CARE Access Scientific E MESSAGING: LOCAL TITLE: PRIMARY CARE SECURE MESSAGING STANDARD TITLE: PRIMARY CARE SECURE MESSAGING DATE OF NOTE: FEB 23, 2024@09:31 ENTRY DATE: FEB 23, 2024@08:31:18 AUTHOR: NOELLE FLORES EXP COSIGNER: URGENCY: STATUS: COMPLETED ------Original Message ------- Sent: 02/20/2024 10:18 AM ET From: JORDYN BAILEY To: [facility], [place] Subject: Medication:Prednisone request Wilder, Can I please ask Dr Morton for another script of prednisone? The Diclofenac and Ibuprofen are not helping at all, the pain and discomfort I am in is causing me to lose sleep at night and unable to perform simple tasks. Yes I am using my wrists straps and staying hydrated but I feel like I am getting worse. I am scheduled to see plastic surgery on the . /nataliia/ NOELLE FLORES BSN RN REGISTERED NURSE Signed: 02/23/2024 08:31 Receipt Acknowledged By: 02/25/2024 14:33 /nataliia/ Kodak Morton MD Staff Physician NOELLE FLORES [facility]
--- OUTSIDE RECORDS SUMMARY | 2024-03-31 01:08 | XMS_ITS | Encounter Summary ---
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 Name Role Phone KODAK MORTON Primary [...] CHOIC E PREFE RR Apr 13, 2020 [id number] [phone] BOOGIE PINEDA ANDON PATIENT ANTHEM [employer] [place] PREFERRED PROVIDER ORGANIZAT ION (PPO) BLUE CHOIC E PREFE RR Apr 13, 2020 [id number] [phone] BOOGIE PINEDA ANDON PATIENT AN[employer]M [employer] [place] PREFERRED PROVIDER ORGANIZAT ION (PPO) BLUE CHOIC E PREFE RR Apr 13, 2020 [id number] [phone] BOOGIE PINEDA ANDON PATIENT [employer] [place] PREFERRED PROVIDER ORGANIZAT ION (PPO) BLUE CHOIC E PREFE RR Apr 13, 2020 [id number] [phone] BOOGIE PINEDA PATIENT PRIME THERAPEUTI CS RX PRESCRIPT ION BCBSI L [place] Apr 13, 2020 BCBSIL [id number] [phone] BOOGIE PINEDA PATIENT [facility] 2018 TRICA RE May 10, 2019 SELECT [id number] BOOGIE PINEDA PATIENT Selected Encounter This section includes the information on record at [place] for the Encounter. Date/Time Encounter Type Encounter Description Reason Pro vider Source Mar 04, 2024 08:44 AM Outpatient Encounter PLASTIC SURGERY IHE Encounter Template Text not used by [...] 20 appointments. The data comes from all [facility]. Appointment Date/Time Appointment Type Appointme nt Facility Name Mar 05, 2024 08:43 AM AMBULATORY - MEDICINE [facility] Mar 16, 2024 10:15 AM AMBULATORY - SURGERY [facility] Mar 21, 2024 12:14 PM AMBULATORY - MEDICINE [facility] Apr 01, 2024 10:00 AM AMBULATORY - PSYCHIATRY [facility] Apr 28, 2024 03:00 PM AMBULATORY - MEDICINE [facility] May 05, 2024 11:30 AM AMBULATORY - MEDICINE [facility] May 27, 2024 11:00 AM AMBULATORY - MEDICINE [facility] Active, Pending, and Scheduled Orders This section includes a listing of several types of active, pending, and scheduled orders, including clinic medications orders, diagnostic test orders, procedure orders and consult orders; where the start date of the order is 45 days before the date of the Encounter or 45 days after the date of theEncounter. The data comes from all [facility]. Test Date/Time Test Type Test Details Facility Name Jan 26, 2024 02:11 PM Consult Order RHEUMATOLO GY OUTPATIENT STL Cons [place] [facility] Feb 17, 2024 01:16 PM Consult Order PLASTIC SHELLEY RGERY OUTPT STL Cons [place] [facility] Mar 16, 2024 10:22 AM Consult Order [facility] PLASTIC SURG Cons [place] [facility] Mar 21, 2024 03:48 PM Procedure Order CP EKG STL CP EKG - STL Proc [place] [facility] Lab Results: +/- 30 days of the [...] Range Comment Mar 21, 2024 12:30 PM [facility] COMPREHENSIVE METABOLIC PANEL Specimen Type: PLASMA Comment: No hemolysis noted. Ordering Provider: SUSAN BROWN Report Released Date/Time: Mar 21, 2024 12:23 PM Reporting Lab: [place] [id number] [facility] [address] Performing Lab: [address] [address] CREATININE 1.00 mg/dL 0.7-1.3 UREA NITROGEN 18.1 [...] 98.2 >60 Mar 21, 2024 12:30 PM [facility] CBC Specimen Type: BLOOD No comment entered. Ordering Provider: SUSAN BROWN Report Released Date/Time: Mar 21, 2024 12:23 PM Reporting Lab: [place] [address] [facility] [address] Performing Lab: [address] [address] WBC 7.2 10*3/uL 3.6-11.2 RBC 4.24 10*6/uL [...] 10*3/uL 0.00-0.20 Mar 05, 2024 11:10 AM [facility] TROPONIN I Specimen Type: PLASMA No comment entered. Ordering Provider: MUKESH MARINELLI Report Released Date/Time: Mar 05, 2024 11:04 AM Reporting Lab: [address] [address] Performing Lab: [address] [address] TROPONIN I <0.010 ng/mL 0-0.033 Mar 05, 2024 09:50 AM [facility] RESPIRATORY PCR PANEL Specimen [...] available to the clinician evaluating the patient. [id number] Susanne, ([id number]) Ordering Provider: MUKESH MARINELLI Report Released Date/Time: Mar 05, 2024 09:39 AM Reporting Lab: [facility] [address] [facility] [address] Performing Lab: [facility] [address] [facility] [address] *Adenovirus (BF) Not Detected Not Detected *Coronavirus [...] Not Detected Mar 05, 2024 09:00 AM [facility] CBC Specimen Type: BLOOD No comment entered. Ordering Provider: MUKESH MARINELLI Report Released Date/Time: Mar 05, 2024 08:52 AM Reporting Lab: [facility] [address] [facility] [address] Performing Lab: [facility] [address] [facility] [address] WBC 7.1 10*3/uL 3.6-11.2 RBC 4.84 10*6/uL [...] 10*3/uL 0.00-0.20 Mar 05, 2024 09:00 AM [facility] TROPONIN I Specimen Type: PLASMA Comment: No hemolysis noted. Ordering Provider: MUKESH MARINELLI Report Released Date/Time: Mar 05, 2024 08:52 AM Reporting Lab: [address] [address] Performing Lab: [address] [address] TROPONIN I 0.013 ng/mL 0-0.033 Mar 05, 2024 09:00 AM [facility] BRAIN NATRIURETIC PEPTIDE Specimen Type: PLASMA No comment entered. Ordering Provider: MUKESH MARINELLI Report Released Date/Time: Mar 05, 2024 09:39 AM Reporting Lab: [address] [address] Performing Lab: [address] [address] BRAIN NATRIURETIC PEPTIDE 16.2 pg/mL 0-100 Mar 05, 2024 09:00 AM [facility] TSH (MA-PB) Specimen Type: SERUM No comment entered. Ordering Provider: MUKESH MARINELLI Report Released Date/Time: Mar 05, 2024 09:39 AM Reporting Lab: [facility] [address] [facility] [address] Performing Lab: [facility] [address] [place] [address] TSH 0.283 u[IU]/mL L 0.47-5 FREE T4(REFLEX) 1.10 ng/mL 0.7-1.48 Mar 05, 2024 09:00 AM [facility] COMPREHENSIVE METABOLIC PANEL Specimen Type: PLASMA Comment: No hemolysis noted. Ordering Provider: MUKESH MARINELLI Report Released Date/Time: Mar 05, 2024 08:52 AM Reporting Lab: [facility] [address] [facility] [address] Performing Lab: [address] [address] CREATININE 0.92 mg/dL 0.7-1.3 UREA NITROGEN 15.6 [...] 26, 2021 03:59 PM VA-TOBACCO NEVER USED [facility] Radiology Reports: +/- 30 days [...] PM CHEST X-RAY, 2 VIEWS: JORDYN PINEDA [id number] -1985 M Exm Date: MAR 21, 2024@12:34 Req Phys: SUSAN BROWN Loc: -EMERGENCY DEPT 2ND SHIFT (R Img Loc: -MAIN RADIOLOGY SUITE Service: [address] [address] (Case [id number] COMPLETE) CHEST X-RAY, 2 VIEWS (RAD Detailed) CPT:39005 Reason for Study: cough, SOB Clinical History: Report Status: Verified Date Reported: MAR 21, 2024 Date Verified: MAR 21, 2024 Scale Adjuster E-Sig:/ES/Lynn Castro MD Report: CHEST X-RAY, 2 VIEWS CASE #: [id number] DATE:03/21/2024 12:39 PM CLINICAL HISTORY:cough, SOB COMPARISON: 03/05/2024, 05/20/2023, 05/28/2022 TECHNIQUE: CHEST X-RAY, 2 VIEWS Impression: FINDINGS/IMPRESSION: Low lung volumes. Top normal heart size. No CHF. Bibasilar atelectasis versus pneumonia. Correlate clinically. No pleural effusion. No pneumothorax. Primary Interpreting Staff: Lynn Castro MD, Radiologist (Scale Adjuster) /LYNN ONEILL [facility] Mar 05, 2024 10:[address] PE CHEST W/3D: JORDYN PINEDA [id number] -1985 M Exm Date: MAR 05, 2024@10:00 Req Phys: MUKESH MARINELLI Dara Loc: [facility]-EMERGENCY DEPT 2ND SHIFT (R Img Loc: [facility]-CT IMAGING [facility] Service: Unknown [facility] [address] [place] [address] (Case [id number] COMPLETE) CT THORAX W/CONT (PE) (CT Detailed) CPT:55498 Contrast Media : unspecified contrast media Reason [...] 05, 2024 Date Verified: MAR 05, 2024 Scale Adjuster E-Sig: Report: CT THORAX W/CONT (PE) [PRINTSET] HISTORY: chest pain, tachycardia COMPARISON: 02/12/2024 TECHNIQUE: Helical CT of the chest, with multiplanar reformats including maximum intensity projection (MIP) reconstructions, was performed at the local [place] facility. 1529 images were received by the [place] National [facility] (NTP) for interpretation. RADIATION [...] excluded. 3. Cardiomegaly. READING PHYSICIAN: Wilfred Roberts -[phone] 03/05/2024 7:32 [facility] [employer] Teleradiology Program [phone] (For Medical Practitioner Use Only) Attention Patients / Veterans: If you have questions or concerns about these test results, please contact your ordering provider or primary care team. Primary Interpreting Staff: RADIOLOGY,OUTSIDE SERVICE, Staff Physician / RADIOLOGY,OUTSIDE SERVICE [facility] Mar 05, 2024 08:59 AM CHEST PORTABLE: JORDYN PINEDA [id number] -1985 M Exm Date: MAR 05, 2024@08:59 Req Phys: MUKESH MARINELLI Loc: [facility]-EMERGENCY DEPT 2ND SHIFT (R Img Loc: -MAIN RADIOLOGY SUITE Service: [facility], [address] [address] (Case [id number] COMPLETE) CHEST PORTABLE (RAD Detailed) CPT:78999 Proc Modifiers : Portable Reason for Study: chest pain Clinical History: Report Status: Verified Date Reported: MAR 05, 2024 Date Verified: MAR 05, 2024 Scale Adjuster E-Sig: Report: CHEST PORTABLE Comparison: 05/20/2023, 02/12/2024 Clinical History: chest pain The study was performed and supervised at the local [place] facility, and subsequently transmitted to [facility] NTP (National Teleradiology Program) for interpretation. Impression: Lungs: Small left effusion with left basilar opacity which may represent atelectasis or consolidation.. Cardiomediastinal silhouette: No enlargement of the cardiomediastinal silhouette. Bones and soft tissues: No acute finding. READING PHYSICIAN: Sandeep Kraft M.D. -[phone] 03/05/2024 7:29 PST [facility] [employer] Teleradiology Program [phone] (For Medical Practitioner Use Only) Attention Patients / Veterans: If you have questions or concerns about these test results, please contact your ordering provider or primary care team. Primary Interpreting Staff: RADIOLOGY,OUTSIDE SERVICE, Staff Physician / RADIOLOGY,OUTSIDE SERVICE [facility] Feb 12, 2024 02:[address] THORAX W/O CONT HIGH RES: JORDYN PINEDA [id number] -1985 M Exm Date: FEB 12, 2024@14:18 Req Phys: FLOYD WOO Loc: [facility]-PULM GURINDER 1 (Req'g Loc) Img Loc: [facility]-CT IMAGING [facility] Service: Unknown [facility] [address] [place] [address] (Case [id number] COMPLETE) CT THORAX W/O CONT HIGH RES (CT Detailed) CPT:93501 Reason for Study: chronic cough, exertional dyspnea, + hazardous exposure hx Clinical History: Responsible Attending: floyd woo PA-C Attending Contact Number: [phone] Resident Contact Number: Allergies listed in CPRS chart: SHELLFISH Creatinine: CREATININE 0.95 mg/dL 11/25/2023 11:00 /eGFR: STL EGFR (within one year). CREATININE 0.95 mg/dL (11/25/23 11:00) Wt: 218.3 lb [99.02 kg] (01/14/2024 08:55) History of: Renal failure, chronic or acute renal disease: NO Report Status: Verified Date Reported: FEB 15, 2024 Date Verified: FEB 15, 2024 Scale Adjuster E-Sig:/ES/Lynn Castro MD Report: CASE #: [id number] DATE:02/12/2024 4:23 PM CLINICAL HISTORY:chronic cough, exertional [...] Primary Interpreting Staff: Lynn Castro MD, Radiologist (Scale Adjuster) /LYNN ONEILL [facility] Encounter Notes: All associated encounter notes This section contains the clinical notes associated to the Encounter. Date/Time Encounter Note(s) Provider Source Mar 04, 2024 08:44 AM ADMINISTRATIVE NOT E: LOCAL TITLE: ADMINISTRATIVE STL STANDARD TITLE: ADMINISTRATIVE NOTE DATE OF NOTE: MAR 04, 2024@08:44 ENTRY DATE: MAR 04, 2024@08:44:21 AUTHOR: VICENTA RODARTE COSIGNER: URGENCY: STATUS: COMPLETED SUBJECT: NO CONTACT Jordyn Pineda [address] [place], [place] [address] Mar 04, 2024 Dear Jordyn [place], You have been referred for a consultation to the PLASTIC SURGERY OUTPT [facility] at the [facility]. We would like to schedule a consult appointment with you. If we do not hear from you by Mar 18, 2024, we will assume that you are not interested in having the consultation and the referral will be discontinued. Please call our office at [phone] between 8 am and 4 pm Thursday through Thursday. If you received this letter after you have spoken to us, please disregard this letter. Sincerely yours, /nataliia/ VICENTA RODARTE Advance Nurse Clinician, Surgery Service Signed: 03/04/2024 08:44 VICENTA RODARTE [facility]
--- OUTSIDE RECORDS SUMMARY | 2024-03-31 01:08 | XMS_ITS | Encounter Summary ---
Author Name [facility] [facility] [place] [facility] [facility] [place] Address [address] [place] [address] Care Team Providers Care Linux Network Administrator Name Role Phone KODAK MORTON Primary Care [...] CHOIC E PREFE RR Apr 13, 2020 [id number] [phone] BOOGIE BAILEY ANDON PATIENT ANTHEM [employer] [place] PREFERRED PROVIDER ORGANIZAT ION (PPO) BLUE CHOIC E PREFE RR Apr 13, 2020 [id number] [phone] BOOGIE BAILEY ANDON PATIENT ANTHEM [employer] [place] PREFERRED PROVIDER ORGANIZAT ION (PPO) BLUE CHOIC E PREFE RR Apr 13, 2020 [id number] [phone] BOOGIE BAILEY ANDCARLA PATIENT [employer] [place] PREFERRED PROVIDER ORGANIZAT ION (PPO) BLUE CHOIC E PREFE RR Apr 13, 2020 [id number] [phone] BOOGIE BAILEY PATIENT PRIME THERAPEUTI CS RX PRESCRIPT ION BCBSI L [place] Apr 13, 2020 BCBSIL [id number] [phone] BOOGIE BAILEY PATIENT [facility] 2018 TRICA RE May 10, 2019 SELECT [id number] BOOGIE BAILEY PATIENT Selected Encounter This section includes the information on record at [place] for the Encounter. Date/Time Encounter Type Encounter Description Reason Provider Source Feb 16, 2024 04:33 PM Outpatient Encounter PRIMARY CARE/MEDICINE NOELLE FLORES Valentin Encounter Template Text not used by [place] [...] 20 appointments. The data comes from all [facility]. Appointment Date/Time Appointment Type Appointme nt Facility Name Feb 17, 2024 01:00 PM AMBULATORY - MEDICINE [facility] Feb 25, 2024 09:30 AM AMBULATORY - MEDICINE [facility] Mar 05, 2024 08:43 AM [facility]ORY - [facility]INE [facility] Mar 16, 2024 10:15 AM AMBULATORY - SURGERY [facility] Mar 21, 2024 12:14 PM AMBULATORY - MEDICINE [facility] Apr 01, 2024 10:00 AM AMBULATORY - PSYCHIATRY [facility] Apr 28, 2024 03:00 PM AMBULATORY - MEDICINE [facility] May 05, 2024 11:30 AM AMBULATORY - MEDICINE [facility] May 27, 2024 11:00 AM AMBULATORY MEDICINE [facility] Active, Pending, and Scheduled Orders This section includes a listing of several types of active, pending, and scheduled orders, including clinic medications orders, diagnostic test orders, procedure orders and consult orders; where the start date of the order is 45 days before the date of the Encounter or 45 days after the date of theEncounter. The [facility] comes [facility]. Test Date/Time Test Type Test Details Facility Name Jan 26, 2024 02:11 PM Consult Order RHEUMATOLO GY OUTPATIENT STL [facility] Feb 17, 2024 01:16 PM Consult Order PLASTIC SHELLEY RGERY OUTPT ST[facility] Mar 16, 2024 10:22 AM Consult Order [facility] PLASTIC SURG [facility] Mar 21, 2024 03:48 PM Procedure Order CP EKG STL CP EKG - STL [facility] Lab Results: +/- 30 days [...] Range Comment Mar 05, 2024 11:10 AM [facility] TROPONIN I Specimen Type: PLASMA No comment entered. Ordering Provider: MUKESH MARINELLI Report Released Date/Time: Mar 05, 2024 11:04 AM Reporting Lab: [facility] [address] [facility] [address] Performing Lab: [address] [address] TROPONIN I <0.010 ng/mL 0-0.033 Mar 05, 2024 09:50 AM [facility] RESPIRATORY PCR PANEL Specimen Type: NASOPHARYNX Comment: The [employer] RP Panel combines nested multiplex PCR and [...] the clinician evaluating the patient. Claudio GREEN, ([phone]) Ordering Provider: MUKESH MARINELLI Report Released Date/Time: Mar 05, 2024 09:39 AM Reporting Lab: [address] [address] Performing Lab: [address] [address] *Adenovirus (BF) Not Detected Not Detected *Coronavirus [...] Not Detected Mar 05, 2024 09:00 AM [facility] CBC Specimen Type: BLOOD No comment entered. Ordering Provider: MUKESH MARINELLI Report Released Date/Time: Mar 05, 2024 08:52 AM Reporting Lab: [address] [address] Performing Lab: [address] [address] WBC 7.1 10*3/uL 3.6-11.2 RBC 4.84 10*6/uL [...] 10*3/uL 0.00-0.20 Mar 05, 2024 09:00 AM [facility] TROPONIN I Specimen Type: PLASMA Comment: No hemolysis noted. Ordering Provider: MUKESH MARINELLI Report Released Date/Time: Mar 05, 2024 08:52 AM Reporting Lab: [address] [address] Performing Lab: [address] [address] TROPONIN I 0.013 ng/mL 0-0.033 Mar 05, 2024 09:00 AM [facility] BRAIN NATRIURETIC PEPTIDE Specimen Type: PLASMA No comment entered. Ordering Provider: MUKESH MARINELLI Report Released Date/Time: Mar 05, 2024 09:39 AM Reporting Lab: [address] [address] Performing Lab: [address] [address] BRAIN NATRIURETIC PEPTIDE 16.2 pg/mL 0-100 Mar 05, 2024 09:00 AM [facility] COMPREHENSIVE METABOLIC PANEL Specimen Type: PLASMA Comment: No hemolysis noted. Ordering Provider: MUKESH MARINELLI Report Released Date/Time: Mar 05, 2024 08:52 AM Reporting Lab: [address] [address] Performing Lab: [address] [address] CREATININE 0.92 mg/dL 0.7-1.3 UREA NITROGEN 15.6 [...] 108.5 >60 Mar 05, 2024 09:00 AM [facility] TSH (MA-PB) Specimen Type: SERUM No comment entered. Ordering Provider: MUKESH MARINELLI Report Released Date/Time: Mar 05, 2024 09:39 AM Reporting Lab: [facility] [address] [facility] [address] Performing Lab: [address] [address] TSH 0.283 u[IU]/mL L 0.47-5 FREE T4(REFLEX) 1.10 ng/mL 0.7-1.48 Jan 26, 2024 02:47 PM [facility] CRP Specimen Type: PLASMA No comment entered. Ordering Provider: KODAK MORTON Report Released Date/Time: Jan 26, 2024 02:11 PM Reporting Lab: [facility] [address] [facility] [address] Performing Lab: [facility] [address] [facility] [address] CRP 0.6 mg/dL H 0-0.5 Jan 26, 2024 02:47 PM [facility] ESR ISED(STL) Specimen Type: BLOOD No comment entered. Ordering Provider: KODAK MORTON Report Released Date/Time: Jan 26, 2024 02:11 PM Reporting Lab: [facility] [address] [facility] [address] Performing Lab: [facility] [address] [facility] [address] ESR ISED(STL) 35 mm/h H 0-14 Jan 26, 2024 02:47 PM [facility] RHEUMATOID FACTOR (STL) Specimen Type: SERUM No comment entered. Ordering Provider: KODAK MORTON Report Released Date/Time: Jan 26, 2024 02:19 PM Reporting Lab: [facility] [address] [facility] [address] Performing Lab: [facility] [address] [facility] [address] RHEUMATOID FACTOR (STL) <15.0 0-29 Social History: [...] 26, 2021 03:59 PM [place]-TOBACCO NEVER USED [facility] Radiology Reports: +/- 30 days of [...] AM CT PE CHEST W/3D: JORDYN BAILEY [id number] -1985 M Exm Date: MAR 05, 2024@10:00 Req Phys: MUKESH MARINELLI Loc: [facility]-EMERGENCY DEPT 2ND SHIFT (R Img Loc: [facility] IMAGING [facility] Service: [facility] [address] [place] [address] (Case [id number] COMPLETE) CT THORAX W/CONT (PE) (CT Detailed) CPT:47124 Contrast Media : unspecified contrast media Reason [...] 05, 2024 Date Verified: MAR 05, 2024 Power Crane Operator E-Sig: Report: CT THORAX W/CONT (PE) [...] excluded. 3. Cardiomegaly. READING PHYSICIAN: Wilfred Roberts -[id number] 03/05/2024 7:32 [facility] National Teleradiology Program [phone] (For Medical Practitioner Use Only) Attention Patients / Veterans: If you have questions or concerns about these test results, please contact your ordering provider or primary care team. Primary Interpreting Staff: RADIOLOGY,OUTSIDE SERVICE, Staff Physician / RADIOLOGY,OUTSIDE SERVICE [facility] Mar 05, 2024 08:59 AM CHEST PORTABLE: JORDYN BAILEY [id number] -1985 M Exm Date: MAR 05, 2024@08:59 Req Phys: MUKESH MARINELLI Loc: -EMERGENCY DEPT 2ND SHIFT (R Img Loc: -MAIN RADIOLOGY SUITE Service: [facility], [address] [address] (Case [id number] COMPLETE) CHEST PORTABLE (RAD Detailed) CPT:10041 Proc Modifiers : Portable Reason for Study: chest pain Clinical History: Report Status: Verified Date Reported: MAR 05, 2024 Date Verified: MAR 05, 2024 Power Crane Operator E-Sig: Report: CHEST PORTABLE Comparison: 05/20/2023, 02/12/2024 Clinical History: chest pain The study was performed and supervised at the local [place] facility, and subsequently transmitted to [facility] NTP (National Teleradiology Program) for interpretation. Impression: Lungs: Small left effusion with left basilar opacity which may represent atelectasis or consolidation.. Cardiomediastinal silhouette: No enlargement of the cardiomediastinal silhouette. Bones and soft tissues: No acute finding. READING PHYSICIAN: Sandeep Kraft M.D. -[id number] 03/05/2024 7:29 PST [facility] National Teleradiology Program [phone] (For Medical Practitioner Use Only) Attention Patients / Veterans: If you have questions or concerns about these test results, please contact your ordering provider or primary care team. Primary Interpreting Staff: RADIOLOGY,OUTSIDE SERVICE, Staff Physician / RADIOLOGY,OUTSIDE SERVICE [facility] Feb 12, 2024 02:[address] THORAX W/O CONT HIGH RES: JORDYN BAILEY [id number] -1985 M Exm Date: FEB 12, 2024@14:18 Req Phys: FLOYD WOO Loc: [facility] (Req'g Loc) [facility] Loc: [facility] IMAGING [facility] Service: Unknown [facility] [address] [place] [address] (Case [id number] COMPLETE) CT THORAX W/O CONT HIGH RES (CT Detailed) CPT:56687 Reason for Study: chronic cough, exertional dyspnea, + hazardous exposure hx Clinical History: Responsible Attending: floyd woo PA-C Attending Contact Number: [phone] Resident Contact Number: Allergies listed in CPRS chart: SHELLFISH Creatinine: CREATININE 0.95 mg/dL 11/25/2023 11:00 /eGFR: STL EGFR (within one year). CREATININE 0.95 mg/dL (11/25/23 11:00) Wt: 218.3 lb [99.02 kg] (01/14/2024 08:55) History of: Renal failure, chronic or acute renal disease: NO Report Status: Verified Date Reported: FEB 15, 2024 Date Verified: FEB 15, 2024 Power Crane Operator E-Sig:/ES/Lynn Castro MD Report: CASE #: [id number] DATE:02/12/2024 4:23 PM CLINICAL HISTORY:chronic cough, exertional [...] Primary Interpreting Staff: Lynn Castro MD, Radiologist (Power Crane Operator) /LYNN ONEILL [facility] Jan 28, 2024 02:20 PM HAND,RIGHT,3 OR MORE VIEWS: JORDYN BAILEY [id number] -1985 M Exm Date: JAN 28, 2024@14:20 Req Phys: KODAK MORTON Pat Loc: [facility] PACT B5 NEW PATIENT (Re Img Loc: [facility] RADIOLOGY SUITE Service: Unknown [address] [address] (Case [id number] COMPLETE) HAND,RIGHT,3 OR MORE VIEWS (RAD Detailed) CPT:30533 Proc Modifiers : RIGHT Reason for Study: right hand feell stiff and pain specialy in morning Clinical History: right hand feell stiff and pain specialy in morning Report Status: Verified Date Reported: JAN 29, 2024 Date Verified: JAN 29, 2024 Power Crane Operator E-Sig:/NATALIIA/ART ENCARNACION MD Report: Case #[id number]. Right hand examination. Finding: Three views of the right hand examination shows no fracture dislocation. No evidence of lytic or blastic bony lesion. No joint space narrowing or marginal erosion. No soft tissue swelling, radiopaque foreign body or abnormal calcification. Impression: No fracture dislocation or arthritic change. Primary Interpreting Staff: ART ENCARNACION MD, Staff Physician - Radiologist (Power Crane Operator) /ART ANDRADE [facility] Jan 28, 2024 02:20 PM WRIST,RIGHT,3 OR MORE VIEWS: LYNNJORDYN ANTHONY [id number] -1985 M Exm Date: JAN 28, 2024@14:20 Req Phys: KODAK MORTON Loc: [facility] PACT B5 NEW PATIENT (Re Img Loc: [facility] RADIOLOGY SUITE Service: Unknown [address] [address] (Case [id number] COMPLETE) WRIST,RIGHT,3 OR MORE VIEWS (RAD Detailed) CPT:36458 Proc Modifiers : RIGHT Reason for Study: right writs pain Clinical History: c/o right wroist pain Report Status: Verified Date Reported: JAN 29, 2024 Date Verified: JAN 29, 2024 Power Crane Operator E-Sig:/NATALIIA/ART ENCARNACION MD Report: Case #[id number]. [...] ART ENCARNACION MD, Staff Physician - Radiologist (Power Crane Operator) /ART ANDRADE [facility] Jan 28, 2024 02:20 PM HAND,LEFT,3 OR MORE VIEWS: JORDYN BAILEY [id number] -1985 M Exm Date: JAN 28, 2024@14:20 Req Phys: KODAK MORTON Loc: [facility] PACT B5 NEW PATIENT (Re Img Loc: [facility] RADIOLOGY SUITE Service: Unknown [facility] [address] [place] [address] (Case [id number] COMPLETE) HAND,LEFT,3 OR MORE VIEWS (RAD Detailed) CPT:98769 Proc Modifiers : LEFT Reason for Study: left hand feell stiff and pain specialy in morning Clinical History: eft hand feell stiff and pain specialy in morning Report Status: Verified Date Reported: JAN 29, 2024 Date Verified: JAN 29, 2024 Power Crane Operator E-Sig:/ES/ART ENCARNACION MD Report: Case #[id number]. [...] ART ENCARNACION MD, Staff Physician - Radiologist (Power Crane Operator) /ART ANDRADE [facility] Jan 28, 2024 02:20 PM WRIST,LEFT, 3 OR MORE VIEWS: JORDYN BAILEY ANTHONY [id number] -1985 M Exm Date: JAN 28, 2024@14:20 Req Phys: KODAK MORTON Loc: [facility] PACT B5 NEW PATIENT (Re Img Loc: [facility]-MAIN RADIOLOGY SUITE Service: Unknown [facility] [address] [place] [address] (Case [id number] COMPLETE) WRIST,LEFT, 3 OR MORE VIEWS (RAD Detailed) CPT:93630 Proc Modifiers : LEFT Reason for Study: c/o left wrist pain Clinical History: c/o left wrist pain Report Status: Verified Date Reported: JAN 29, 2024 Date Verified: JAN 29, 2024 Power Crane Operator E-Sig:/NATALIIA/ART ENCARNACION MD Report: Case #[id number]. Left [...] ART ENCARNACION MD, Staff Physician - Radiologist (Power Crane Operator) /ART ANDRADE [facility] Encounter Notes: All associated encounter notes This section contains the clinical notes associated to the Encounter. Date/Time Encounter Note(s) Provider Source Feb 18, 2024 10:02 AM ADDENDUM: LOCAL TITLE: Addendum STANDARD TITLE: ADDENDUM DATE OF NOTE: FEB 18, 2024@10:02:38 ENTRY DATE: FEB 18, 2024@10:02:39 AUTHOR: KODAK MORTON EXP COSIGNER: URGENCY: STATUS: COMPLETED Patient has appointment with covering provider Rhina nurse risa on February 16 and explained to him the nerve conduction study and placed plastic consults bilateral carpal tunnel syndrome See her note from February 16/2024 /luis Morton MD Staff Physician Signed: 02/18/2024 10:04 Receipt Acknowledged By: 02/18/2024 12:25 /nataliia/ NOELLE FLORES BSN RN REGISTERED NURSE ====== --- Original Document --- 02/16/24 PRIMARY CARE SECURE MESSAGING: ------Original Message ------- Sent: 02/15/2024 08:32 AM ET From: JORDYN BAILEY To: [facility], CaronCatySELENE Nacho[facility] Subject: Test:Nerve Study test Morning, I was just wondering if Dr. Morton has seen the results of my Nerve Study test that were done last Thursday and when i would hear from him on the next step forward. Thank you! /nataliia/ NOELLE JIMENEZ RN REGISTERED NURSE Signed: 02/16/2024 15:33 Receipt Acknowledged By: 02/18/2024 10:02 /luis Morton MD Staff Physician KODAK MORTON [facility] Feb 16, 2024 04:33 PM PRIMARY CARE SECUR E MESSAGING: LOCAL TITLE: PRIMARY CARE SECURE MESSAGING STANDARD TITLE: PRIMARY CARE SECURE MESSAGING DATE OF NOTE: FEB 16, 2024@16:33 ENTRY DATE: FEB 16, 2024@15:33:57 AUTHOR: NOELLE FLORES EXP COSIGNER: URGENCY: STATUS: COMPLETED PRIMARY CARE SECURE MESSAGING Has ADDENDA ------Original Message ------- Sent: 02/15/2024 08:32 AM ET From: JORDYN BAILEY To: [facility], [facility] M_[facility] Subject: Test:Nerve Study test Morning, I was just wondering if Dr. Morton has seen the results of my Nerve Study test that were done last Thursday and when i would hear from him on the next step forward. Thank you! /luis JIMENEZ RN REGISTERED NURSE Signed: 02/16/2024 15:33 Receipt Acknowledged By: 02/18/2024 10:02 /luis Morton MD Staff Physician 02/18/2024 ADDENDUM STATUS: COMPLETED Patient has appointment with covering provider Rhina lord on February 16 and explained to him the nerve conduction study and placed plastic consults bilateral carpal tunnel syndrome See her note from February 16/2024 /nataliia/ Kodak Morton MD Staff Physician Signed: 02/18/2024 10:04 Receipt Acknowledged By: * AWAITING SIGNATURE * NOELLE FLORES RICHELLE D [facility]
--- OUTSIDE RECORDS SUMMARY | 2024-03-31 01:09 | XMS_ITS | Encounter Summary ---
Author Name [facility] [facility] [place] Address [address] [place] [address] Care Team Providers Care Information Technology Auditor Name Role Phone KODAK MORTON Primary Care [...] CHOIC E PREFE RR Apr 13, 2020 [id number] [phone] BOOGIE BAILEY ANDON PATIENT ANTHEM [employer] [place] PREFERRED PROVIDER ORGANIZAT ION (PPO) BLUE CHOIC E PREFE RR Apr 13, 2020 [id number] [phone] LYNN,BOOGIE ANDON PATIENT ANTHEM [employer] [place] PREFERRED PROVIDER ORGANIZAT ION (PPO) BLUE CHOIC E PREFE RR Apr 13, 2020 [id number] [phone] BOOGIE BAILEY PATIENT [employer] PREFERRED PROVIDER ORGANIZAT ION (PPO) BLUE CHOIC E PREFE RR Apr 13, 2020 [id number] [phone] BOOGIE BAILEY PATIENT PRIME THERAPEUTI CS RX PRESCRIPT ION BCBSI L [place] Apr 13, 2020 BCBSIL [id number] [phone] BOOGIE BAILEY PATIENT [facility] 2018 TRICA RE May 10, 2019 SELECT [id number] BOOGIE BAILEY PATIENT Selected Encounter This section includes the information on record at [place] for the Encounter. Date/Time Encounter Type Encounter Description Reason Provider Source Mar 05, 2024 08:43 AM EMERGENCY DEPT VISIT [facility] EMERGENCY DEPT ICD-10-CM R07.9 Chest pain, unspecified NEWTON,SALVADOR S IHE Encounter Template Text not used by [place] Assessments - Encounter Diagnoses This section includes the primary and secondary diagnoses documented for the Encounter. Date/Time Primary/Secondary Diagnosis Diagnosis Name Provider Source Mar 05, 2024 01:05 PM PRIMARY Chest pain, unspecified NEWTON,SALVADOR S [facility] Plan of Treatment: Future Appointments [...] Appointment Type Appointme nt Facility Name Mar 16, 2024 10:15 AM [facility] Mar 21, 2024 12:14 PM AMBULATORY - MEDICINE [facility] Apr 01, 2024 10:00 AM AMBULATORY - PSYCHIATRY [facility] Apr 28, 2024 03:00 PM AMBULATORY - MEDICINE [facility] May 05, 2024 11:30 AM AM[facility]ORY - MEDICINE [facility] May 27, 2024 11:00 AM AMBULATORY - MEDICINE [facility] Active, Pending, and Scheduled Orders [...] Consult Order RHEUMATOLO GY OUTPATIENT STL Cons Medicaid Specialist's [facility] Feb 17, 2024 01:16 PM Consult Order PLASTIC SHELLEY RGERY OUTPT STL Cons Medicaid Specialist's [facility] Mar 16, 2024 10:22 AM Consult Order [facility] PLASTIC SURG Cons Medicaid Specialist's [facility] Mar 21, 2024 03:48 PM Procedure Order CP EKG STL [facility] - [facility] Results: +/- 30 [...] Comment Mar 21, 2024 12:30 PM [facility] COMPREHENSIVE METABOLIC PANEL Specimen Type: PLASMA Comment: No hemolysis noted. Ordering Provider: SUSAN BROWN Report Released Date/Time: Mar 21, 2024 12:23 PM Reporting Lab: [facility] [address] [facility] [address] Performing Lab: [place] [address] [facility] [address] CREATININE 1.00 mg/dL 0.7-1.3 UREA NITROGEN 18.1 [...] >60 Mar 21, 2024 12:30 PM [facility] CBC Specimen Type: BLOOD No comment entered. Ordering Provider: SUSAN BROWN Report Released Date/Time: Mar 21, 2024 12:23 PM Reporting Lab: [facility] [address] [place] [phone] Performing Lab: [address] [address] WBC 7.2 10*3/uL 3.6-11.2 RBC 4.24 10*6/uL [...] 0.00-0.20 Mar 05, 2024 11:10 AM [facility] TROPONIN I Specimen Type: PLASMA No comment entered. Ordering Provider: SALVADOR NEWTON Report Released Date/Time: Mar 05, 2024 11:04 AM Reporting Lab: [facility] [address] [facility] [phone] Performing Lab: [address] [address] TROPONIN I <0.010 ng/mL 0-0.033 Mar 05, 2024 09:50 AM [facility] RESPIRATORY PCR PANEL Specimen Type: NASOPHARYNX Comment: The [employer] RP Panel combines nested multiplex PCR and [...] the clinician evaluating the patient. Claudio GREEN, (954) Ordering Provider: SALVADOR NEWTON Report Released Date/Time: Mar 05, 2024 09:39 AM Reporting Lab: [place] [address] [facility] [address] Performing Lab: [address] [address] *Adenovirus (BF) Not Detected Not Detected *Coronavirus [...] Detected Mar 05, 2024 09:00 AM [facility] CBC Specimen Type: BLOOD No comment entered. Ordering Provider: SALVADOR NEWTON Report Released Date/Time: Mar 05, 2024 08:52 AM Reporting Lab: [facility] [address] [facility] [address] Performing Lab: [facility] [address] [facility] [address] WBC 7.1 10*3/uL 3.6-11.2 RBC 4.84 10*6/uL [...] 0.00-0.20 Mar 05, 2024 09:00 AM [facility] TROPONIN I Specimen Type: PLASMA Comment: No hemolysis noted. Ordering Provider: SALVADOR NEWTON Report Released Date/Time: Mar 05, 2024 08:52 AM Reporting Lab: [facility] [address] [facility] [address] Performing Lab: [place] [address] [facility] [address] TROPONIN I 0.013 ng/mL 0-0.033 Mar 05, 2024 09:00 AM [facility] BRAIN NATRIURETIC PEPTIDE Specimen Type: PLASMA No comment entered. Ordering Provider: SALVADOR NEWTON Report Released Date/Time: Mar 05, 2024 09:39 AM Reporting Lab: [facility] [address] [facility] [address] Performing Lab: [address] [address] BRAIN NATRIURETIC PEPTIDE 16.2 pg/mL 0-100 Mar 05, 2024 09:00 AM [facility] TSH (MA-PB) Specimen Type: SERUM No comment entered. Ordering Provider: SALVADOR NEWTON Report Released Date/Time: Mar 05, 2024 09:39 AM Reporting Lab: [address] [address] Performing Lab: [address] [address] TSH 0.283 u[IU]/mL L 0.47-5 FREE T4(REFLEX) 1.10 ng/mL 0.7-1.48 Mar 05, 2024 09:00 AM [facility] COMPREHENSIVE METABOLIC PANEL Specimen Type: PLASMA Comment: No hemolysis noted. Ordering Provider: SALVADOR NEWTON Report Released Date/Time: Mar 05, 2024 08:52 AM Reporting Lab: [address] [address] Performing Lab: [address] [address] CREATININE 0.92 mg/dL 0.7-1.3 UREA NITROGEN 15.6 [...] U/L 8-40 EGFR (CKD-EPI 2020) 108.5 >60 Vital Signs: All taken on the encounter date This section contains inpatient and outpatient Vital Signs collected on the date of the Encounter. Date/Time Temperature Pulse Blood Pressure Respiratory Rate SP02 Pain Height Weight Body Mass Index Source Mar 05, 2024 11:45 AM 88 116/84 2 [facility] Mar 05, 2024 09:40 AM 98.6 [facility] Mar 05, 2024 08:48 AM 98 136 134/82 18 3 [facility] Social History: Smoking [...] place. Date/Time Current Smoking Status Comment Facil devony Feb 26, 2021 03:59 PM VA-TOBACCO NEVER USED [facility] Radiology Reports: +/- 30 days [...] PM CHEST X-RAY, 2 VIEWS: JORDYN BAILEY [id number] -1985 M Exm Date: MAR 21, 2024@12:34 Req Phys: SUSAN BROWN Loc: [facility]-EMERGENCY DEPT 2ND SHIFT (R Img Loc: [facility]-MAIN RADIOLOGY SUITE Service: [address] [address] (Case [id number] COMPLETE) CHEST X-RAY, 2 VIEWS (RAD Detailed) CPT:89273 Reason for Study: cough, SOB Clinical History: Report Status: Verified Date Reported: MAR 21, 2024 Date Verified: MAR 21, 2024 Advanced Manufacturing Consultant E-Sig:/ES/Lynn Castro MD Report: CHEST X-RAY, 2 VIEWS CASE #: [id number] DATE:03/21/2024 12:39 PM CLINICAL HISTORY:cough, SOB COMPARISON: 03/05/2024, 05/20/2023, 05/28/2022 TECHNIQUE: CHEST X-RAY, 2 VIEWS Impression: FINDINGS/IMPRESSION: Low lung volumes. Top normal heart size. No CHF. Bibasilar atelectasis versus pneumonia. Correlate clinically. No pleural effusion. No pneumothorax. Primary Interpreting Staff: Lynn Castro MD, Radiologist (Advanced Manufacturing Consultant) /LYNN ONEILL [facility] Mar 05, 2024 10:[address] PE CHEST W/3D: JORDYN BAILEY [id number] -1985 M Exm Date: MAR 05, 2024@10:00 Req Phys: SALVADOR NEWTON Loc: [facility]-EMERGENCY DEPT 2ND SHIFT (R Img Loc: [facility]-CT IMAGING [facility] Service: [address] [address] (Case [id number] COMPLETE) CT THORAX W/CONT (PE) (CT Detailed) CPT:06929 Contrast Media : unspecified contrast media Reason for Study: chest pain, tachycardia Clinical History: Responsible Attending: Valentin Attending Contact Number: ER Resident Contact Number: Allergies listed in CPRS chart: SHELLFISH Creatinine: CREATININE 0.95 mg/dL 11/25/2023 11:00 /eGFR: STL EGFR (within one year). CREATININE 0.95 mg/dL (11/25/23 11:00) Wt: 220.1 lb [99.84 kg] (01/26/2024 13:15) History of: Renal failure, chronic or acute renal disease: NO Report Status: Verified Date Reported: MAR 05, 2024 Date Verified: MAR 05, 2024 Advanced Manufacturing Consultant E-Sig: Report: CT THORAX W/CONT (PE) [PRINTSET] [...] excluded. 3. Cardiomegaly. READING PHYSICIAN: Wilfred Roberts -[phone] 03/05/2024 7:32 [facility] National Teleradiology Program [phone] (For Medical Practitioner Use Only) Attention Patients / Veterans: If you have questions or concerns about these test results, please contact your ordering provider or primary care team. Primary Interpreting Staff: RADIOLOGY,OUTSIDE SERVICE, Staff Physician / RADIOLOGY,OUTSIDE SERVICE [facility] Mar 05, 2024 08:59 AM CHEST PORTABLE: JORDYN BAILEY [id number] -1985 M Exm Date: MAR 05, 2024@08:59 Req Phys: SALVADOR NEWTON Loc: [facility]-EMERGENCY DEPT 2ND SHIFT (R Img Loc: [facility]MAIN RADIOLOGY SUITE Service: [address] [address] (Case [id number] COMPLETE) CHEST PORTABLE (RAD Detailed) CPT:99402 Proc Modifiers : Portable Reason for Study: chest pain Clinical History: Report Status: Verified Date Reported: MAR 05, 2024 Date Verified: MAR 05, 2024 Advanced Manufacturing Consultant E-Sig: Report: CHEST PORTABLE Comparison: 05/20/2023, 02/12/2024 Clinical History: chest pain The study was performed and supervised at the local [place] facility, and subsequently transmitted to [facility] NTP (National Teleradiology Program) for interpretation. Impression: Lungs: Small left effusion with left basilar opacity which may represent atelectasis or consolidation.. Cardiomediastinal silhouette: No enlargement of the cardiomediastinal silhouette. Bones and soft tissues: No acute finding. READING PHYSICIAN: Sandeep Kraft M.D. -[phone] 03/05/2024 7:29 PST [facility] National Teleradiology Program [phone] (For Medical Practitioner Use Only) Attention Patients / Veterans: If you have questions or concerns about these test results, please contact your ordering provider or primary care team. Primary Interpreting Staff: RADIOLOGY,OUTSIDE SERVICE, Staff Physician / RADIOLOGY,OUTSIDE SERVICE [facility] Feb 12, 2024 02:[address] THORAX W/O CONT HIGH RES: JORDYN BAILEY [id number] -1985 M Exm Date: FEB 12, 2024@14:18 Req Phys: FLOYD WOO Loc: [facility] (Req'g Loc) Img Loc: [facility]-CT IMAGING [facility] Service: Unknown [facility] [address] [place] [address] (Case [id number] COMPLETE) CT THORAX W/O CONT HIGH RES (CT Detailed) CPT:06449 Reason for Study: chronic cough, exertional dyspnea, + hazardous exposure hx Clinical History: Responsible Attending: floyd woo PA-C Attending Contact Number: [phone] Resident Contact Number: Allergies listed in CPRS chart: SHELLFISH Creatinine: CREATININE 0.95 mg/dL 11/25/2023 11:00 /eGFR: STL EGFR (within one year). CREATININE 0.95 mg/dL (11/25/23 11:00) Wt: 218.3 lb [99.02 kg] (01/14/2024 08:55) History of: Renal failure, chronic or acute renal disease: NO Report Status: Verified Date Reported: FEB 15, 2024 Date Verified: FEB 15, 2024 Advanced Manufacturing Consultant E-Sig:/ES/Lynn Castro MD Report: CASE #: [id number] DATE:02/12/2024 4:23 PM CLINICAL HISTORY:chronic cough, exertional [...] Primary Interpreting Staff: Lynn Castro MD, Radiologist (Advanced Manufacturing Consultant) /LYNN ONEILL [facility] Encounter Notes: All associated encounter notes This section contains the clinical notes associated to the Encounter. Date/Time Encounter Note(s) Provider Source Mar 05, 2024 11:00 AM RADIOLOGY PREPROCEDURE NOTE: LOCAL TITLE: RADIOLOGY CONTRAST ADMINISTRATION STANDARD TITLE: RADIOLOGY PREPROCEDURE NOTE DATE OF NOTE: MAR 05, 2024@11:00 ENTRY DATE: MAR 05, 2024@11:00:56 AUTHOR: JANA GOODMAN EXP COSIGNER: URGENCY: STATUS: COMPLETED CT and General Radiology Contrast Questionnaire PATIENT NAME: JORDYN BAILEY SSN: [id number] DATE: Feb EXAM: pe chest Referring Physician: valentin TO BE COMPLETED PRIOR TO CONTRAST ADMINISTRATION: 1. Has the patient been instructed about the procedure? Yes 2. Is there a history of food or drug allergies? No 3. Is there history of complication with IV contrast? No 4. Is EFGR less than 30? No eGFR: STL EGFR (within one year). CREATININE 0.92 mg/dL (03/05/24 09:00) CREATININE 0.92 mg/dL 03/05/2024 09:00 EGFR (CKD-EPI 2020) 108.5 03/05/2024 09:00 5. Is EFGR result for inpatient within 24 hrs? Yes 6. Is EFGR result for outpatient with history of renal insufficiency within 7 days or for outpatient with history of normal renal function within 30 days? Yes 7. Is the patient's Medical Reconciliation list correct?Yes 8. Is the patient on metformin? No 9. Has the patient violated NPO requirements? No 10. Does the patient have a history of multiple myeloma? No 11. Does the patient have sickle cell anemia? No 12. Is the patient a breast-feeding female? No 13. Is there a chance the patient could be ? No 14. Does the patient have only one kidney? No 15. The patient has had no iodinated contrast in the past 24 hours? No 16. The exception for Diagnostic Imaging Service policy was none and this was discussed and Approve by : valentin for contrast administration. 17. If patient meets DIS policy criteria for high risk for contrast reaction or toxicity, Informed Consent has been obtained by: 18. The information was reviewed and meets Diagnostic Imaging Policy to administer contrast. Yes DIS Policy: 1,5,6,7,16,17,18 =Y or NA // 2,3,4,8,9,10,11,12,13,14,15 = N Name of Contrast: omnipaque 350 Lot#: [id number] Dosage: 85ml Injection Site: 20g lac /nataliia/ JANA GOODMAN merchandise handler Signed: 03/05/2024 11:01 JANA GOODMAN [facility] Mar 05, 2024 09:26 AM PHYSICIAN EMERGENCY DEPT NOTE: LOCAL TITLE: EMERGENCY DEPARTMENT STL STANDARD TITLE: PHYSICIAN EMERGENCY DEPT NOTE DATE OF NOTE: MAR 05, 2024@09:26 ENTRY DATE: MAR 05, 2024@09:26:46 AUTHOR: SALVADOR NEWTON EXP COSIGNER: URGENCY: STATUS: COMPLETED TRIAGE CHIEF COMPLAINT: HPI: Patient is a 39-year-old male with history of chronic back pain, PTSD, steatosis of liver, insomnia presents the ER with sharp left-sided chest pain since last night. Patient states had similar pain few days ago which resolved. reports decrease in oral intake over the past few weeks. Patient reports low-grade temperature at home last time checked (reports temperature of 100.0). [place] reports taking 1000 mg of ibuprofen 4 times a day over the past few weeks for bilateral carpal tunnel symptoms. denies blood in stool or melena. [place] denies viral symptoms and specifically denies cough, shortness of breath, myalgia, nasal congestion. Patient denies recent illnesses or known sick contacts. REVIEW OF SYSTEMS: See HPI for further [...] FOR PAIN - TAKE WITH FOOD 4) PANTOPRAZOLE NA 40MG EC TAB TAKE ONE TABLET BY MOUTH ACTIVE EVERY MORNING BEFORE A MEAL TAKE 30 MINUTES BEFORE MEAL(S) 5) TRAZODONE HCL 100MG TAB TAKE ONE-HALF TABLET BY MOUTH ACTIVE AT BEDTIME FOR SLEEP No medications found.. I have reviewed the patient's medication list with the patient and/or his/her care-supervisor [place]. Any medication discrepancies have been resolved. Patient will be provided with an updated list of his/her medication(s). SURGICAL HISTORY: not pertinent FAMILY HISTORY: not pertinent SOCIAL HISTORY: Social History Main Topics: Smoking status: No data available for: Current Tobacco User Alcohol Use: not indorsed ____ Illicit Drug Use: not indorsed Sexual Activity: Other Topics of Concern: Child bearing age: N/A LMP: N/A possible: N/A ALLERGIES: Review of patient's allergies indicates: SHELLFISH PHYSICAL EXAM: VITAL SIGNS: 134/82 (03/05/2024 08:48)136 (03/05/2024 08:48)97% (01/26/2024 13:15)98 F [36.7 C] (03/05/2024 08:48)18 (03/05/2024 08:48)The OBJECT WEIGHT LAST 3 was NOT found...Contact IRM. MAThe OBJECT was NOT found...Contact IRM.PAIN ASSESSMENTThe OBJECT was NOT found...Contact IRM. Measurement DT PAIN 03/05/2024 08:48 3 CONSTITUTIONAL: No acute distress, Non-toxic appearance HENT: airway patent EYES: Conj pink, sclera clear NECK: Normal range of motion, No tenderness, Supple, No stridor, No LAD. CARDIOVASCULAR: Normal heart rate, Normal rhythm, No murmurs, No rubs, No gallops. PULMONARY/CHEST: CTA bilaterally, thorax stable without tenderness ABDOMEN: Bowel sounds normal, Soft, flat, No tenderness, No bruit, No masses, No pulsatile masses BACK: No tenderness, No CVA tenderness : RECTAL: EXTREMITIES: Normal range of motion, Intact distal pulses, No edema, No tenderness NEUROLOGIC: Alert & oriented/reactive, Normal motor function, Normal gait, no ataxia, No focal deficits appreciated on cursory screening exam SKIN: Warm, Dry, No erythema, No rash LABS:CBC BLOOD STAT WC ONCE LB #[id number] Collection time: Mar 05, 2024@09:00 Test Name Result Units Range --------- ------ ----- ----- WBC 7.1 10*3/uL 3.6 - 11.2 RBC 4.84 10*6/uL 4.10 - 5.70 HGB 13.1 g/dL 13.1 - 16.8 HCT 38.6 % 38.2 - 48.4 MCV 79.8 L fL 80.0 - 100.0 MCH 27.1 pg 27.0 - 34.0 MCHC 33.9 g/dL 33.0 - 36.0 RDW 13.3 % 11.8 - 15.1 PLT 354 10*3/uL 150 - 400 MPV 9.9 fL 7.5 - 11.2 NEUTROPHILS, AUTO % 78 % LYMPHOCYTES, AUTO % 14 % MONOCYTES, AUTO % 7 % EOSINOPHILS, AUTO % 0 % BASOPHILS, AUTO % 0 % NEUTROPHILS, ABSOLUTE 5.53 10*3/uL 2.10 - 8.00 LYMPHOCYTES, ABSOLUTE 1.00 10*3/uL 0.77 - 4.50 MONOCYTES, ABSOLUTE 0.50 10*3/uL 0.19 - 0.80 EOSINOPHILS, ABSOLUTE 0.03 10*3/uL 0.00 - 0.60 BASOPHILS, ABSOLUTE 0.01 10*3/uL 0.00 - 0.20 Comments: Ordering Provider: Salvador Newton MD Report Released Date/Time: Mar 05, 2024@09:49 Performing Lab: [address] [CLIA# [id number]] [address] [place] [phone] COMPREHENSIVE METABOLIC PANEL GREEN LI/HEP BLD/PLAS PLASMA STAT WC ONCE LB #[id number] Collection time: Mar 05, 2024@09:00 Test Name Result Units Range --------- ------ ----- ----- SODIUM 136 mEq/L 136 - 145 POTASSIUM 4.2 mEq/L 3.5 - 5 CHLORIDE 102 mEq/L 98 - 107 UREA NITROGEN 15.6 mg/dL 9.0 - 25.0 CREATININE 0.92 mg/dL 0.7 - 1.3 CALCIUM 9.6 mg/dL 8.4 - 10.4 PROTEIN 9.3 H g/dL 6 - 8.6 ALBUMIN 3.6 g/dL 3.4 - 5 ALKALINE PHOSPHATASE 79 U/L 40 - 150 ALT/SGPT 25 U/L 8 - 40 AST/SGOT 45 H U/L 5 - 34 TOTAL BILIRUBIN 0.9 mg/dL 0.2 - 1.2 CARBON DIOXIDE 24 mEq/L 22 - 31 GLUCOSE 153 H mg/dL 72 - 99 TROPONIN I 0.013 ng/mL 0 - 0.033 EGFR (CKD-EPI 2020) 108.5 Ref: >=60 Comments: No hemolysis noted. Ordering Provider: Salvador Newton MD Report Released Date/Time: Mar 05, 2024@09:44 Performing Lab: [address] [CLIA# [id number]] [address] [place] [phone] TROPONIN I GREEN LI/HEP BLD/PLAS PLASMA STAT WC ONCE LB #[id number] Collection time: Mar 05, 2024@11:10 Test Name Result Units Range --------- ------ ----- ----- TROPONIN I <0.010 ng/mL 0 - 0.033 Comments: Ordering Provider: Salvador Newton MD Report Released Date/Time: Mar 05, 2024@12:03 Performing Lab: [facility] [address] [facility] [IA# [id number]] [address] [facility] [place] [address] [place] [address] RESPIRATORY PCR PANEL SWAB-NASOPHARYNX [facility] #[id number] Collection time: Mar 05, 2024@09:50 Test Name Result Units Range --------- ------ ----- ----- PARAINF1 Not Detected Ref: Not Detected *Coronavirus HKU1 (BF) Not Detected Ref: Not Detected *Coronavirus NL63 (BF) Not Detected Ref: Not Detected *Coronavirus 229E (BF) Not Detected Ref: Not Detected PARAINF2 Not Detected Ref: Not Detected *Coronavirus OC43 (BF) Not Detected Ref: Not Detected PARAINF3 Not Detected Ref: Not Detected PARAINF4 Not Detected Ref: Not Detected BPERT BF Not Detected Ref: Not Detected BPARAPERT Not Detected Ref: Not Detected Chlam pneumo (BF) Not Detected Ref: Not Detected Mycoplasma pneumo Not Detected Ref: Not Detected *Adenovirus (BF) Not Detected Ref: Not Detected H. Metapneumovirus Not Detected Ref: Not Detected H. Rhino/Enterovirus Not Detected Ref: Not Detected *Influenza A (BF) Not Detected Ref: Not Detected *Influenza B (BF) Not Detected Ref: Not Detected Resp Sync Virus (BF) Not Detected Ref: Not Detected COVID-19 (BIOFIRE) Not Detected Ref: Not Detected Comments: The [employer] RP Panel combines nested multiplex [...] to the clinician evaluating the patient. BIOFIRE, FilmArray Torch, (012) Ordering Provider: Salvador Newton MD Report Released Date/Time: Mar 05, 2024@11:50 Performing Lab: [address] [CLIA# [id number]] [address] [place] [phone] BRAIN NATRIURETIC PEPTIDE LAVENDER BLOOD PLASMA STAT WC ONCE LB #[id number] Collection time: Mar 05, 2024@09:00 Test Name Result Units Range --------- ------ ----- ----- BRAIN NATRIURETIC PEPTIDE 16.2 pg/mL 0 - 100 Comments: Ordering Provider: Salvador Newton MD Report Released Date/Time: Mar 05, 2024@10:37 Performing Lab: [address] [CLIA# [id number]] [address] [place] [phone] RADIOLOGY: Detailed Report CHEST PORTABLE Exm Date: MAR 05, 2024@08:59 Req Phys: SALVADOR NEWTON Loc: [facility]-EMERGENCY DEPT 2ND SHIFT (R Img Loc: -MAIN RADIOLOGY SUITE Service: [address] [address] (Case [id number] COMPLETE) CHEST PORTABLE (RAD Detailed) CPT:47378 Proc Modifiers : Portable Reason for Study: chest pain Clinical History: Report Status: Verified Date Reported: MAR 05, 2024 Date Verified: MAR 05, 2024 Advanced Manufacturing Consultant E-Sig: Report: CHEST PORTABLE Comparison: 05/20/2023, 02/12/2024 Clinical History: chest pain The study was performed and supervised at the local [place] facility, and subsequently transmitted to [facility] NTP (National Teleradiology Program) for interpretation. Impression: Lungs: Small left effusion with left basilar opacity which may represent atelectasis or consolidation.. Cardiomediastinal silhouette: No enlargement of the cardiomediastinal silhouette. Bones and soft tissues: No acute finding. READING PHYSICIAN: Sandeep Kraft M.D. -[phone] 03/05/2024 7:29 PST [facility] National Teleradiology Program [phone] (For Medical Practitioner Use Only) Attention Patients / Veterans: If you have questions or concerns about these test results, please contact your ordering provider or primary care team. Primary Interpreting Staff: RADIOLOGY,OUTSIDE SERVICE, Staff Physician / Facility: [facility] CT THORAX W/CONT (PE) Proc Ord: CT PE CHEST W/3D Exm Date: MAR 05, 2024@10:00 Req Phys: SALVADOR NEWTON Loc: [facility]-EMERGENCY DEPT 2ND SHIFT (R Img Loc: -CT IMAGING Service: [facility] [address] [place] [address] (Case [id number] INTERPRE) CT THORAX W/CONT (PE) (CT Detailed) CPT:12752 Reason for Study: chest pain, tachycardia Clinical History: Responsible Attending: Valentin Attending Contact Number: ER Resident Contact Number: Allergies listed in CPRS chart: SHELLFISH Creatinine: CREATININE 0.95 mg/dL 11/25/2023 11:00 /eGFR: STL EGFR (within one year). CREATININE 0.95 mg/dL (11/25/23 11:00) Wt: 220.1 lb [99.84 kg] (01/26/2024 13:15) History of: Renal failure, chronic or acute renal disease: NO Report Status: Verified Date Reported: MAR 05, 2024 Date Verified: MAR 05, 2024 Advanced Manufacturing Consultant E-Sig: Report: CT THORAX W/CONT (PE) [PRINTSET] [...] excluded. 3. Cardiomegaly. READING PHYSICIAN: Wilfred Roberts -[phone] 03/05/2024 7:32 [facility] National T[facility]adiology Program [phone] (For Medical Practitioner Use Only) Attention Patients / Veterans: If you have questions or concerns about these test results, please contact your ordering provider or primary care team. Primary Interpreting Staff: RADIOLOGY,OUTSIDE SERVICE, Staff Physician ECG IMPRESSION #1: Rate of 132. Time performed 8:54 AM. Sinus tachycardia, normal axis, normal intervals, nonspecific ST-T wave findings. Clinical impression: Nonspecific EKG ECG IMPRESSION #2: Rate of 107. Time performed 11:31 AM Sinus tachycardia, normal axis, normal intervals, nonspecific ST-T wave findings. Clinical impression: Nonspecific EKG. Improved tachycardia compared to prior EKG this visit, otherwise no significant change. ED COURSE & MEDICAL DECISION MAKING: Nursing notes, medications, vital signs, allergies and pertinent labs & imaging studies reviewed (see chart for details) with lab results reviewed with patient and family/caregivers at bedside and radiology results reviewed with patient and any family/caregivers at bedside. Stable, alert, nontoxic, nonfocal with clinically apparent sharp atypical chest pain since last night, episode few days prior spontaneous resolved presents to ER with tachycardia (heart rate 117297), afebrile with no respiratory distress. Labs: Reassuring. Chest x-ray: Left pleural effusion, with left basilar opacity possible pneumonia. CT PE performed: No PE, small left pleural effusion, left lower lobe consolidation with air bronchograms. Akash was given IV fluids, afebrile upon temperature recheck. Tachycardia completely resolved while in ED after IV fluids heart rate in the 90s upon recheck. Tylenol was given for discomfort. was counseled to decrease daily NSAID consumption (reportedly taking 1000 mg of ibuprofen 4 times a day). He will be discharged home on Augmentin, closely monitor symptoms and will return to ER if symptoms persist or worsen. Akash is felt stable for discharge home, outpatient management and close follow-up with PCP. Clinical information obtained from an independent historian. History obtained from or confirmed by: Clinical information obtained from patient ___spouse ___parent ___guardian ___family ___friend ___EMS ___other: Discussed with radiology regarding test interpretation: Chest x-ray and CT chest PE radiology test interpretation performed during this ED test. I performed an independent interpretation of: _X__EKG ___rhythm strip _X__plain x-ray: cxr ___ultrasound _X__CT scan: ct chest pe ___MRI ___other Patient's care impacted by: ___Diabetes ___Hypertension ___Cancer ___other: Patient's care is significantly limited by social determinants of health including, but not limited to: ___inadequate housing ___low income ___alcoholism and drug addiction in family ___problems related to primary support group ___unemployment ___problems with employment ___language barrier ___lack of transportation ___psychiatric disease ___other social determinants of health: External records reviewed: ___Inpatient records _X__office records _X__outpatient records ___prior outpatient labs ___prior outpatient radiology ___primary care record ___outside ED record ___PMD referral ___outside ER ___urgent care referral ___other: Management of the patient was discussed with: ___Hospitalist ___consultant ___behavioral health provider ___primary care provider ___other: The following testing was considered but ultimately was not performed after discussion with the patient/family: I considered prescription management with the following but ultimately did not prescribe: Rx for augmentin will be sent to pharmacy ___pain medication ___antiviral ___antibiotic ___other: I considered admission/ observation but decided upon discharge due to: patient felt stable for discharge home and outpatient management. ENGINEERING PROJECT MANAGER SERVICE/TIME: MEDICATIONS GIVEN IN ED: [ ] YES [X] NO DIFFERENTIAL DIAGNOSES CONSIDERED: Pneumonia, pleural effusion, viral syndrome, bronchitis, ACS, NSTEMI, PE, CHF, musculoskeletal pain, other DECISION to ADMIT / DISCHARGE TIME: 12:35 PM DISPOSITION CONDITION:[X] Improved [ ] Unchanged [ ] Deteriorated CLINICAL IMPRESSION: 1 -pneumonia 2 -chest pain, atypical 3 - DISCHARGE INSTRUCTIONS AND PATIENT-DIRECTED FOLLOW-UP RECOMMENDATIONS: DIET: regular ACTIVITY: ad kisha NEW MEDS: augmentin MEDICATION RECONCILIATION: CONTINUE ALL PRESCRIBED MEDICATIONS DIRECTED EXCEPT: FOLLOW-UP WITH PRIMARY RUG CLEANER HELPER/SPECIALIST: routine in 1-2 weeks if not improving, sooner if worse RETURN TO EMERGENCY: if any worries or concerns ADDITIONAL SIGNATURE PCP: [X] YES [ ] NO [ ] not listed Active Outpatient [...] FOR PAIN - TAKE WITH FOOD 4) PANTOPRAZOLE NA 40MG EC TAB TAKE ONE TABLET BY MOUTH ACTIVE EVERY MORNING BEFORE A MEAL TAKE 30 MINUTES BEFORE MEAL(S) 5) TRAZODONE HCL 100MG TAB TAKE ONE-HALF TABLET BY MOUTH ACTIVE AT BEDTIME FOR SLEEP /es/ Salvador Newton MD Staff ED Attending Physician Signed: 03/05/2024 13:25 Receipt Acknowledged By: 03/06/2024 00:07 /nataliia/ oKdak Morton MD Staff Physician [facility] Mar 05, 2024 08:47 AM EMERGENCY DEPT TRIAGE NOTE: LOCAL TITLE: EMERGENCY DEPARTMENT TRIAGE NOTE STANDARD TITLE: EMERGENCY DEPT TRIAGE NOTE DATE OF NOTE: MAR 05, 2024@08:47 ENTRY DATE: MAR 05, 2024@08:47:19 AUTHOR: SONIA WARNER COSIGNER: URGENCY: STATUS: COMPLETED EMERGENCY DEPARTMENT TRIAGE NOTE Has ADDENDA Emergency Department/Urgent Care Center Triage Patient age:39 Sex in chart: MALE Mode of Arrival: Private vehicle Mode of Mobility: * Walk Chief Complaint: chest pain supervisor heading Note (Subjective/Objective): Pt to ED with complaints of sharp pain in the L anterior chest x 2 days. reported pain worse with deep breathing. denied sob, radiating pain, nausea or dizziness. Pt found to be tachycardic at this time. denied palpitations. appeared awake and alert. no distress noted. Level of Consciousness (AVPU): Alert = Appears aware of and responsive to the environment on their own. Follows commands, opens eyes spontaneously, and tracks objects. Vital Signs: Temperature 98 F (36.7 C) Pulse 136 Respirations 18 Blood Pressure 134/82 Pulse Oximetry 95 Room Air Pain: DVPRS Scale Location: L anterior chest Defense and Veterans Pain Rating Scale (DVPRS): 3 Sometimes distracts me Pain Score: 3 Patient's acceptable pain goal: 0 No pain Suicide Screen: [place] Suicide Severity Rating Scale (C-SSRS) screener 1. [...] required due to responses to other questions. Emergency Severity Index (YAZMIN) level: Level 3 Previously documented allergies: SHELLFISH Current Problems: 1) Chronic back pain 2) Sleep apnea 3) Posttraumatic stress disorder 4) Major depressive disorder 5) Steatosis of liver 6) Obesity 7) Exposure to potentially hazardous substance 8) Allergic rhinitis 9) Insomnia /es/ SONIA WARNER CERAMIC TILE INSTALLATION HELPER REGISTERED NURSE Signed: 03/05/2024 08:49 03/05/2024 ADDENDUM STATUS: COMPLETED 854 Assumed care of patient from the triage nurse. patient ambulatory to exam room 105 for c/o chest pain. patient placed on the monitor, blood pressure cuff, and pulse ox. ekg completed by BAILEY Pugh. call light placed at bedside. pt waiting for provider evaluation. 0900 20 gauge IV started in LAC times 1 attempt. Good blood return. blood specimens obtained and IV flushed with 10ml of saline. no signs of infiltration noted. IV secured to site and specimens sent to lab via transport personnel. 0907 pcxr done at bedside. 0933 Dr. Newton in to examine. 0940 Temperature: 98.6 F (37 C) covid swab obtained NS 1L bouls started. see BCMA 1040 IVF interrupted. pt placed in wheelchair to wait for transport to CT. [address] pt states his pain has returned. 1125 see BCVT ACETAMINOPHEN 1MG IVPB STARTED. RATES PAIN LEVEL A 6. 1140 repeat ekg obtained.resting quietly on stretcher. pt is alert and voices no complaints or needs. no distress noted by nurse, pt is stable at this time. 1145 Blood Pressure: 116/84 Pulse: 88 Pain: 2 Pulse Oximetry: 98% 1230 resting quietly on stretcher. pt is alert and voices no complaints or needs. no distress noted by nurse, pt is stable at this time. 1250 Dr. Newton in to speak with patient. 1255 Intact IV catheter removed, pressure held to site and a dressing applied. verbal and written discharge instructions given. pt states understanding. gait to exit is steady. no distress noted upon disposition from the ED. pt instructed to go to pharmacy for medicine machine operator hop picker. /nataliia/ CANDACE MAGALLANESN RN REGISTERED NURSE Signed: 03/05/2024 13:21 [facility]
--- OUTSIDE RECORDS SUMMARY | 2024-03-31 01:11 | XMS_ITS | Encounter Summary ---
Author Name [facility] [facility] [place] Address [address] [place] [address] Care Team Providers Care Final Assembly Inspector Name Role Phone KODAK MORTON Primary [...] CHOIC E PREFE RR Apr 13, 2020 [id number] [phone] BOOGIE BAILEY PATIENT ANTHEM [place] PREFERRED PROVIDER ORGANIZAT ION (PPO) BLUE CHOIC E PREFE RR Apr 13, 2020 [id number] [phone] BOOGIE BAILEY ANDON PATIENT ANTHEM [place] PREFERRED PROVIDER ORGANIZAT ION (PPO) BLUE CHOIC E PREFE RR Apr 13, 2020 [id number] [phone] STEPHANIE BAILEYON PATIENT [place] PREFERRED PROVIDER ORGANIZAT ION (PPO) BLUE CHOIC E PREFE RR Apr 13, 2020 [id number] [phone] BOOGIE BAILEY PATIENT PRIME THERAPEUTI CS RX PRESCRIPT ION BCBSI L [place] Apr 13, 2020 [id number] [phone] BOOGIE BAILEY PATIENT [facility] [address] [place] May 10, 2019 SELECT [id number] BOOGIE BAILEY PATIENT Selected Encounter This section includes the information on record at [place] for the Encounter. Date/Time Encounter Type Encounter Description Reason Pro vider Source Mar 05, 2024 08:52 AM Outpatient Encounter EMERGENCY DEPT IHE Encounter Template Text not used by [place] Plan of Treatment: Future Appointments (+ 6 months) and Future Tests (+/- 45 days) The Plan of Treatment section includes future care activities for the patient [facility] [place] [facility] This section includes future appointments and future orders which are active, pending or scheduled. Future Appointments This section includes appointments that were scheduled to occur 6 months from the date of the Encounter, up to a maximum of 20 appointments. The data comes from all [facility]. Appointment Date/Time Appointment Type Appointme nt Facility Name Mar 16, 2024 10:15 AM AMBULATORY - SURGERY [facility] Mar 21, 2024 12:14 PM AMBULATORY - MEDICINE [facility] Apr 01, 2024 10:00 AM AMBULATORY - PSYCHIATRY [facility] Apr 28, 2024 03:00 PM AMBULATORY - MEDICINE [facility] May 05, 2024 11:30 AM AMBULATORY - MEDICINE [facility] May 27, 2024 11:00 AM AMBULATORY - MEDICINE [facility] Active, Pending, and Scheduled Orders This section includes a listing of several types of active, pending, and scheduled orders, including clinic medications orders, diagnostic test orders, procedure orders and consult orders; where thestart date of the order is 45 days before the date of the Encounter or 45 days after the date of the Encounter. The data comes from all [facility]. Test Date/Time Test Type Test Details Facility Name Jan 26, 2024 02:11 PM Consult Order RHEUMATOLO GY OUTPATIENT [facility] Feb 17, 2024 01:16 PM Consult Order PLASTIC SHELLEY RGERY OUTPT [facility] Mar 16, 2024 10:22 AM Consult Order [facility] PLASTIC SURG Cons Content Producer's [facility] Mar 21, 2024 03:48 PM Procedure Order CP EKG STL CP EKG - STL Proc Content Producer'[facility] Lab Results: +/- 30 days of the [...] Range Comment Mar 21, 2024 12:30 PM [facility] COMPREHENSIVE METABOLIC PANEL Specimen Type: PLASMA Comment: No hemolysis noted. Ordering Provider: SUSAN BROWN Report Released Date/Time: Mar 21, 2024 12:23 PM Reporting Lab: [address] [address] Performing Lab: [address] [address] CREATININE 1.00 mg/dL 0.7-1.3 UREA NITROGEN 18.1 [...] 98.2 >60 Mar 21, 2024 12:30 PM [facility] CBC Specimen Type: BLOOD No comment entered. Ordering Provider: SUSAN BROWN Report Released Date/Time: Mar 21, 2024 12:23 PM Reporting Lab: [address] [address] Performing Lab: [facility] [address] [facility] [address] WBC 7.2 10*3/uL 3.6-11.2 RBC 4.24 10*6/uL [...] 10*3/uL 0.00-0.20 Mar 05, 2024 11:10 AM [facility] TROPONIN I Specimen Type: PLASMA No comment entered. Ordering Provider: MUKESH MARINELLI Report Released Date/Time: Mar 05, 2024 11:04 AM Reporting Lab: [place] [address] [address] [facility] [address] Performing Lab: [address] [address] TROPONIN I <0.010 ng/mL 0-0.033 Mar 05, 2024 09:50 AM [facility] RESPIRATORY PCR PANEL Specimen Type: NASOPHARYNX [...] the clinician evaluating the patient. Claudio GREEN, (653) Ordering Provider: MUKESH MARINELLI Report Released Date/Time: Mar 05, 2024 09:39 AM Reporting Lab: [facility] [address] [place] [address] Performing Lab: [address] [address] *Adenovirus (BF) Not Detected Not Detected *Coronavirus [...] Not Detected Mar 05, 2024 09:00 AM [facility] CBC Specimen Type: BLOOD No comment entered. Ordering Provider: MUKESH MARINELLI Report Released Date/Time: Mar 05, 2024 08:52 AM Reporting Lab: [facility] [address] [facility] [address] Performing Lab: [address] [address] WBC 7.1 10*3/uL 3.6-11.2 RBC 4.84 10*6/uL [...] 10*3/uL 0.00-0.20 Mar 05, 2024 09:00 AM [facility] TROPONIN I Specimen Type: PLASMA Comment: No hemolysis noted. Ordering Provider: MUKESH MARINELLI Report Released Date/Time: Mar 05, 2024 08:52 AM Reporting Lab: [address] [address] Performing Lab: [address] [address] TROPONIN I 0.013 ng/mL 0-0.033 Mar 05, 2024 09:00 AM [facility] BRAIN NATRIURETIC PEPTIDE Specimen Type: PLASMA No comment entered. Ordering Provider: MUKESH MARINELLI Report Released Date/Time: Mar 05, 2024 09:39 AM Reporting Lab: [address] [address] Performing Lab: [address] [address] BRAIN NATRIURETIC PEPTIDE 16.2 pg/mL 0-100 Mar 05, 2024 09:00 AM [facility] TSH (MA-PB) Specimen Type: SERUM No comment entered. Ordering Provider: MUKESH MARINELLI Report Released Date/Time: Mar 05, 2024 09:39 AM Reporting Lab: [address] [address] Performing Lab: [address] [address] TSH 0.283 u[IU]/mL L 0.47-5 FREE T4(REFLEX) 1.10 ng/mL 0.7-1.48 Mar 05, 2024 09:00 AM [facility] COMPREHENSIVE METABOLIC PANEL Specimen Type: PLASMA Comment: No hemolysis noted. Ordering Provider: MUKESH MARINELLI Report Released Date/Time: Mar 05, 2024 08:52 AM Reporting Lab: [address] [address] Performing Lab: [address] [address] CREATININE 0.92 mg/dL 0.7-1.3 UREA NITROGEN 15.6 [...] 05, 2024 11:45 AM 88 116/84 2 [facility] Mar 05, 2024 09:40 AM 98.6 [facility] Mar 05, 2024 08:48 AM 98 136 134/82 18 3 [facility] Social History: Smoking Status (Most [...] 03:59 PM VA-TOBACCO NEVER USED [facility] Radiology Reports: +/- 30 days of [...] PM CHEST X-RAY, 2 VIEWS: JORDYN BAILEY [id number] -1985 M Exm Date: MAR 21, 2024@12:34 Req Phys: SUSAN BROWN Loc: -EMERGENCY DEPT 2ND SHIFT (R Img Loc: -MAIN RADIOLOGY SUITE Service: [address] [address] (Case [id number] COMPLETE) CHEST X-RAY, 2 VIEWS (RAD Detailed) CPT:43736 Reason for Study: cough, SOB Clinical History: Report Status: Verified Date Reported: MAR 21, 2024 Date Verified: MAR 21, 2024 Cnc Set Up Operator E-Sig:/ES/Lynn Castro MD Report: CHEST X-RAY, 2 VIEWS CASE #: [id number] DATE:03/21/2024 12:39 PM CLINICAL HISTORY:cough, SOB COMPARISON: 03/05/2024, 05/20/2023, 05/28/2022 TECHNIQUE: CHEST X-RAY, 2 VIEWS Impression: FINDINGS/IMPRESSION: Low lung volumes. Top normal heart size. No CHF. Bibasilar atelectasis versus pneumonia. Correlate clinically. No pleural effusion. No pneumothorax. Primary Interpreting Staff: Lynn Castro MD, Radiologist (Cnc Set Up Operator) /LYNN ONEILL [facility] Mar 05, 2024 10:[address] PE CHEST W/3D: JORDYN BAILEY [id number] -1985 M Exm Date: MAR 05, 2024@10:00 Req Phys: MUKESH MARINELLI Loc: [facility]-EMERGENCY DEPT 2ND SHIFT (R Img Loc: [facility]-CT IMAGING [facility] Service: Unknown [facility], [facility] [address] [place] [address] (Case [id number] COMPLETE) CT THORAX W/CONT (PE) (CT Detailed) CPT:90244 Contrast Media : unspecified contrast media Reason [...] 05, 2024 Date Verified: MAR 05, 2024 Cnc Set Up Operator E-Sig: Report: CT THORAX W/CONT (PE) [PRINTSET] HISTORY: chest pain, tachycardia COMPARISON: 02/12/2024 TECHNIQUE: Helical CT of the chest, with multiplanar reformats including maximum intensity projection (MIP) reconstructions, was performed at the local [place] facility. 1529 images were received by the [place] National Teleradiology Program (NTP) for interpretation. RADIATION [...] excluded. 3. Cardiomegaly. READING PHYSICIAN: Wilfred Roberts -[phone] 03/05/2024 7:32 [facility] National Teleradiology Program [phone] (For Medical Practitioner Use Only) Attention Patients / Veterans: If you have questions or concerns about these test results, please contact your ordering provider or primary care team. Primary Interpreting Staff: RADIOLOGY,OUTSIDE SERVICE, Staff Physician / RADIOLOGY,OUTSIDE SERVICE [facility] Mar 05, 2024 08:59 AM CHEST PORTABLE: JORDYN BAILEY [id number] -1985 M Exm Date: MAR 05, 2024@08:59 Req Phys: MUKESH MARINELLI Loc: [facility]-EMERGENCY DEPT 2ND SHIFT (R Img Loc: -MAIN RADIOLOGY SUITE Service: [facility], [facility] [address] [place] [address] (Case [id number] COMPLETE) CHEST PORTABLE (RAD Detailed) CPT:95681 Proc Modifiers : Portable Reason for Study: chest pain Clinical History: Report Status: Verified Date Reported: MAR 05, 2024 Date Verified: MAR 05, 2024 Cnc Set Up Operator E-Sig: Report: CHEST PORTABLE Comparison: 05/20/2023, 02/12/2024 Clinical History: chest pain The study was performed and supervised at the local [place] facility, and subsequently transmitted to [facility] NTP (National Teleradiology Program) for interpretation. Impression: Lungs: Small left effusion with left basilar opacity which may represent atelectasis or consolidation.. Cardiomediastinal silhouette: No enlargement of the cardiomediastinal silhouette. Bones and soft tissues: No acute finding. READING PHYSICIAN: Sandeep Kraft M.D. -[phone] 03/05/2024 7:29 PST [facility] National Teleradiology Program [phone] (For Medical Practitioner Use Only) Attention Patients / Veterans: If you have questions or concerns about these test results, please contact your ordering provider or primary care team. Primary Interpreting Staff: RADIOLOGY,OUTSIDE SERVICE, Staff Physician / RADIOLOGY,OUTSIDE SERVICE [facility] Feb 12, 2024 02:[address] THORAX W/O CONT HIGH RES: JORDYN BAILEY [id number] -1985 M Exm Date: FEB 12, 2024@14:18 Req Phys: FLOYD WOO Loc: [facility]-PULM GURINDER 1 (Req'g Loc) Img Loc: [facility]-CT IMAGING [facility] Service: Unknown [facility], [facility] [address] [place] [address] (Case [id number] COMPLETE) CT THORAX W/O CONT HIGH RES (CT Detailed) CPT:30281 Reason for Study: chronic cough, exertional dyspnea, + hazardous exposure hx Clinical History: Responsible Attending: floyd woo PA-C Attending Contact Number: [phone] Resident Contact Number: Allergies listed in CPRS chart: SHELLFISH Creatinine: CREATININE 0.95 mg/dL 11/25/2023 11:00 /eGFR: STL EGFR (within one year). CREATININE 0.95 mg/dL (11/25/23 11:00) Wt: 218.3 lb [99.02 kg] (01/14/2024 08:55) History of: Renal failure, chronic or acute renal disease: NO Report Status: Verified Date Reported: FEB 15, 2024 Date Verified: FEB 15, 2024 Cnc Set Up Operator E-Sig:/ES/Lynn Castro MD Report: CASE #: [id number] DATE:02/12/2024 4:23 PM CLINICAL HISTORY:chronic cough, exertional [...] Primary Interpreting Staff: Lynn Castro MD, Radiologist (Cnc Set Up Operator) /LYNN ONEILL [facility] Encounter Notes: All associated encounter notes This section contains the clinical notes associated to the Encounter. Date/Time Encounter Note(s) Provider Source Mar 07, 2024 10:33 AM CARDIOLOGY DIAGNOS TIC STUDY CONSULT: LOCAL TITLE: EKG CONSULT STL STANDARD TITLE: CARDIOLOGY DIAGNOSTIC STUDY CONSULT DATE OF NOTE: MAR 07, 2024@10:33:12 ENTRY DATE: MAR 07, 2024@10:33:12 AUTHOR: CLINICAL,DEVICE PRO EXP COSIGNER: URGENCY: STATUS: COMPLETED DOCUMENT IN VISTA IMAGING SEE FULL REPORT IN VISTA IMAGING SIGNATURE NOT REQUIRED SEE SIGNATURE IN VISTA IMAGING ([place] EKG) AUTO-INSTRUMENT DIAGNOSIS Procedure: 22146 12 Lead ECG Release Status: Released Off-Line Verified Date Verified: Mar 07, 2024@10:33:07 83305.2 Ventricular Rate: 132 BPM 37825.3 Atrial Rate: 132 BPM 99892.4 P-R Interval: 154 ms 03666.5 QRS Duration: 86 ms 70588.6 Q-T Interval: 278 ms 66655 QTC Calculation(Bazett)411 ms 03174.12 Calculated P [place]: 32 degrees 05097.13 Calculated R [place]: 3 degrees 17298.14 Calculated T [place]: 20 degrees Sinus tachycardia Minimal voltage criteria for LVH, may be normal variant ( R in aVL ) Possible Anterior infarct , age undetermined Abnormal ECG No previous ECGs available Administrative Closure: 03/07/2024 by: CLINICAL,DEVICE PROXY SERVICE CLINICAL,DEVICE PROXY SERVICE [facility]
--- OUTSIDE RECORDS SUMMARY | 2024-03-31 01:11 | XMS_ITS | Encounter Summary ---
Author Name [facility] [facility] [place] [facility] [place] Address [address], [place] [address] Care Team Providers Care Travertine Installer Name Role Phone KODAK MORTON Primary [...] CHOIC E PREFE RR Apr 13, 2020 [id number] [phone] BOOGIE BAILEY ANDON PATIENT ANTHEM [employer] [place] PREFERRED PROVIDER ORGANIZAT ION (PPO) BLUE CHOIC E PREFE RR Apr 13, 2020 [id number] [phone] BOOGIE BAILEY ANDON PATIENT ANTHEM [employer] [place] PREFERRED PROVIDER ORGANIZAT ION (PPO) BLUE CHOIC E PREFE RR Apr 13, 2020 [id number] [phone] BOOGIE BAILEY ANDON PATIENT [employer] [place] PREFERRED PROVIDER ORGANIZAT ION (PPO) BLUE CHOIC E PREFE RR Apr 13, 2020 [id number] [phone] BOOGIE BAILEY PATIENT PRIME THERAPEUTI CS RX PRESCRIPT ION BCBSI L [place] Apr 13, 2020 BCBSIL [id number] [phone] BOOGIE BAILEY PATIENT [facility] 2018 TRICA RE May 10, 2019 SELECT [id number] BOOGIE BAILEY PATIENT Selected Encounter This section includes the information on record at [place] for the Encounter. Date/Time Encounter Type Encounter Description Reason Provider Source Mar 08, 2024 02:58 PM OFF/OP EST AUGUST X REQ PHY/QHP TELEPHONE PRIMARY CARE ICD-10-CM Z71.9 Counseling, unspecified CHICO BECKWITH Valentin Encounter Template Text not used by [place] Assessments - Encounter Diagnoses This section includes the primary and secondary diagnoses documented for the Encounter. Date/Time Primary/Secondary Diagnosis Diagnosis Name Provider Source Mar 08, 2024 02:58 PM PRIMARY Counseling, unspecified CHICO BECKWITH [facility] Plan of Treatment: Future Appointments [...] 16, 2024 10:15 AM [facility]ORY [facility] Mar 21, 2024 12:14 PM AMBULATORY - MEDICINE [facility] Apr 01, 2024 10:00 AM AMBULATORY - PSYCHIATRY [facility] Apr 28, 2024 03:00 PM AMBULATORY - MEDICINE [facility] May 05, 2024 11:30 AM AMBULATORY - MEDICINE [facility] May 27, 2024 11:00 AM AMBULATORY MEDICINE [facility] Active, Pending, and Scheduled Orders This [...] Consult Order RHEUMATOLO GY OUTPATIENT STL [employer] Feb 17, 2024 01:16 PM Consult Order PLASTIC SHELLEY RGERY OUTPT [facility] Mar 16, 2024 10:22 AM Consult Order [facility] PLASTIC SURG [employer] Mar 21, 2024 03:48 PM Procedure Order CP EKG STL [facility] - [facility] Lab Results: +/- 30 [...] Range Comment Mar 21, 2024 12:30 PM [facility] COMPREHENSIVE METABOLIC PANEL Specimen Type: PLASMA Comment: No hemolysis noted. Ordering Provider: SUSAN BROWN Report Released Date/Time: Mar 21, 2024 12:23 PM Reporting Lab: [facility] [address] [address] Performing Lab: [facility] [address] [facility] [address] CREATININE 1.00 mg/dL 0.7-1.3 UREA NITROGEN 18.1 [...] 98.2 >60 Mar 21, 2024 12:30 PM [facility] CBC Specimen Type: BLOOD No comment entered. Ordering Provider: SUSAN BROWN Report Released Date/Time: Mar 21, 2024 12:23 PM Reporting Lab: [facility] [address] [facility] [address] Performing Lab: [facility] [address] [place] [address] WBC 7.2 10*3/uL 3.6-11.2 RBC 4.24 10*6/uL [...] 10*3/uL 0.00-0.20 Mar 05, 2024 11:10 AM [facility] TROPONIN I Specimen Type: PLASMA No comment entered. Ordering Provider: MUKESH MARINELLI Report Released Date/Time: Mar 05, 2024 11:04 AM Reporting Lab: [facility] [address] [facility] [address] Performing Lab: [address] [address] TROPONIN I <0.010 ng/mL 0-0.033 Mar 05, 2024 09:50 AM [facility] RESPIRATORY PCR PANEL Specimen Type: NASOPHARYNX Comment: The Tresata RP Panel combines nested multiplex PCR and [...] the clinician evaluating the patient. Claudio GREEN, (280) Ordering Provider: MUKESH MARINELLI Report Released Date/Time: Mar 05, 2024 09:39 AM Reporting Lab: [place] [address] [address] Performing Lab: [address] [address] *Adenovirus (BF) Not Detected Not Detected *Coronavirus [...] Not Detected Mar 05, 2024 09:00 AM [facility] CBC Specimen Type: BLOOD No comment entered. Ordering Provider: MUKESH MARINELLI Report Released Date/Time: Mar 05, 2024 08:52 AM Reporting Lab: [facility] [address] [facility] [address] Performing Lab: [facility] [address] [address] WBC 7.1 10*3/uL 3.6-11.2 RBC 4.84 10*6/uL [...] 10*3/uL 0.00-0.20 Mar 05, 2024 09:00 AM [facility] TROPONIN I Specimen Type: PLASMA Comment: No hemolysis noted. Ordering Provider: MUKESH MARINELLI Report Released Date/Time: Mar 05, 2024 08:52 AM Reporting Lab: [facility] [address] [address] Performing Lab: [address] [address] TROPONIN I 0.013 ng/mL 0-0.033 Mar 05, 2024 09:00 AM [facility] BRAIN NATRIURETIC PEPTIDE Specimen Type: PLASMA No comment entered. Ordering Provider: MUKESH MARINELLI Report Released Date/Time: Mar 05, 2024 09:39 AM Reporting Lab: [facility] [address] [facility] [address] Performing Lab: [address] [address] BRAIN NATRIURETIC PEPTIDE 16.2 pg/mL 0-100 Mar 05, 2024 09:00 AM [facility] TSH (MA-PB) Specimen Type: SERUM No comment entered. Ordering Provider: MUKESH MARINELLI Report Released Date/Time: Mar 05, 2024 09:39 AM Reporting Lab: [address] [address] Performing Lab: [address] [address] TSH 0.283 u[IU]/mL L 0.47-5 FREE T4(REFLEX) 1.10 ng/mL 0.7-1.48 Mar 05, 2024 09:00 AM [facility] COMPREHENSIVE METABOLIC PANEL Specimen Type: PLASMA Comment: No hemolysis noted. Ordering Provider: MUKESH MARINELLI Report Released Date/Time: Mar 05, 2024 08:52 AM Reporting Lab: [address] [address] Performing Lab: [address] [address] CREATININE 0.92 mg/dL 0.7-1.3 UREA NITROGEN 15.6 [...] 20, 2023 09:00 AM [place]-TOBACCO FORMER USER [facility] Tobacco Use History This section includes a history of the smoking, or tobacco-related health factors, that were collected on or before the date of the Encounter. The data comes from the [place] facility where the Encounter took place. Date/Time Smoking Status/Tobacco Use Comment F acility May 20, 2023 09:00 AM [place] QU[place] 15 YRS OR MORE [facility] May 28, 2022 10:30 AM [place]-TO[place] NEVER USED [facility] Radiology Reports: +/- 30 days [...] PM CHEST X-RAY, 2 VIEWS: JORDYN BAILEY [id number] -1985 M Exm Date: MAR 21, 2024@12:34 Req Phys: SUSAN BROWN Loc: [facility] 2ND SHIFT (R Img Loc: [facility] RADIOLOGY SUITE Service: [facility] [address] [place] [address] (Case [id number] COMPLETE) CHEST X-RAY, 2 VIEWS (RAD Detailed) CPT:53702 Reason for Study: cough, SOB Clinical History: Report Status: Verified Date Reported: MAR 21, 2024 Date Verified: MAR 21, 2024 Certified Credit Counselor E-Sig:/ES/Lynn Castro MD Report: CHEST X-RAY, 2 VIEWS CASE #: [id number] DATE:03/21/2024 12:39 PM CLINICAL HISTORY:cough, SOB COMPARISON: 03/05/2024, 05/20/2023, 05/28/2022 TECHNIQUE: CHEST X-RAY, 2 VIEWS Impression: FINDINGS/IMPRESSION: Low lung volumes. Top normal heart size. No CHF. Bibasilar atelectasis versus pneumonia. Correlate clinically. No pleural effusion. No pneumothorax. Primary Interpreting Staff: Lynn Castro MD, Radiologist (Certified Credit Counselor) /LYNN ONEILL [facility] Mar 05, 2024 10:[address] PE CHEST W/3D: JORDYN BAILEY [id number] -1985 M Exm Date: MAR 05, 2024@10:00 Req Phys: MUKESH MARINELLI Loc: [facility] 2ND SHIFT (R Img Loc: [facility] IM[facility] Service: Unknown [address] [address] (Case [id number] COMPLETE) CT THORAX W/CONT (PE) (CT Detailed) CPT:04311 Contrast Media : unspecified contrast media Reason [...] 05, 2024 Date Verified: MAR 05, 2024 Certified Credit Counselor E-Sig: Report: CT THORAX W/CONT (PE) [PRINTSET] HISTORY: chest pain, tachycardia COMPARISON: 02/12/2024 TECHNIQUE: Helical CT of the chest, with multiplanar reformats including maximum intensity projection (MIP) reconstructions, was performed at the local [place] facility. 1529 images were received by the [place] [facility] ([facility]) for interpretation. RADIATION [...] excluded. 3. Cardiomegaly. READING PHYSICIAN: Wilfred Roberts -[id number] 03/05/2024 7:32 [facility] National Teleradiology Program [phone] (For Medical Practitioner Use Only) Attention Patients / Veterans: If you have questions or concerns about these test results, please contact your ordering provider or primary care team. Primary Interpreting Staff: RADIOLOGY,OUTSIDE SERVICE, Staff Physician / RADIOLOGY,OUTSIDE SERVICE [facility] Mar 05, 2024 08:59 AM CHEST PORTABLE: JORDYN BAILEY [id number] -1985 Ex Date: MAR 05, 2024@08:59 Req Phys: MUKESH MARINELLI Loc: [facility] 2ND SHIFT (R Img Loc: [facility]IOLOGY SUITE Service: [address] [address] (Case [id number] COMPLETE) CHEST PORTABLE (RAD Detailed) CPT:15691 Proc Modifiers : Portable Reason for Study: chest pain Clinical History: Report Status: Verified Date Reported: MAR 05, 2024 Date Verified: MAR 05, 2024 Certified Credit Counselor E-Sig: Report: CHEST PORTABLE Comparison: 05/20/2023, 02/12/2024 Clinical History: chest pain The study was performed and supervised at the local [place] facility, and subsequently transmitted to [facility] NTP (National Teleradiology Program) for interpretation. Impression: Lungs: Small left effusion with left basilar opacity which may represent atelectasis or consolidation.. Cardiomediastinal silhouette: No enlargement of the cardiomediastinal silhouette. Bones and soft tissues: No acute finding. READING PHYSICIAN: Sandeep Kraft M.D. -[id number] 03/05/2024 7:29 PST [facility] National Teleradiology Program [phone] (For Medical Practitioner Use Only) Attention Patients / Veterans: If you have questions or concerns about these test results, please contact your ordering provider or primary care team. Primary Interpreting Staff: RADIOLOGY,OUTSIDE SERVICE, Staff Physician / RADIOLOGY,OUTSIDE SERVICE [facility] Feb 12, 2024 02:[address] THORAX W/O CONT HIGH RES: JORDYN BAILEY [id number] -1985 Ex Date: FEB 12, 2024@14:18 Req Phys: FLOYD WOO Loc: [facility]PULM [facility]UR[facility] 1 (Req'g Loc) Img Loc: [facility] Service: [address] [address] (Case [id number] COMPLETE) CT THORAX W/O CONT HIGH RES (CT Detailed) CPT:91617 Reason for Study: chronic cough, exertional dyspnea, + hazardous exposure hx Clinical History: Responsible Attending: floyd woo PA-C Attending Contact Number: [phone] Resident Contact Number: Allergies listed in CPRS chart: SHELLFISH Creatinine: CREATININE 0.95 mg/dL 11/25/2023 11:00 /eGFR: STL EGFR (within one year). CREATININE 0.95 mg/dL (11/25/23 11:00) Wt: 218.3 lb [99.02 kg] (01/14/2024 08:55) History of: Renal failure, chronic or acute renal disease: NO Report Status: Verified Date Reported: FEB 15, 2024 Date Verified: FEB 15, 2024 Certified Credit Counselor E-Sig:/ES/Lynn Castro MD Report: CASE #: [id number] DATE:02/12/2024 4:23 PM CLINICAL HISTORY:chronic cough, exertional [...] Primary Interpreting Staff: Lynn Castro MD, Radiologist (Certified Credit Counselor) /LYNN ONEILL [facility] Encounter Notes: All associated encounter notes This section contains the clinical notes associated to the Encounter. Date/Time Encounter Note(s) Provider Source Mar 08, 2024 02:58 PM NURSING NOTE: LOCAL TITLE: V15 PACT TELEPHONE CONTACT NOTE STL STANDARD TITLE: NURSING NOTE DATE OF NOTE: MAR 08, 2024@14:58 ENTRY DATE: MAR 08, 2024@14:58:32 AUTHOR: CHICO BECKWITH EXP COSIGNER: URGENCY: STATUS: COMPLETED Patient/Other contacted: Patient Patient Identifiers : Full Name Date of Telephone Number Full Address Outbound call per provider request: Medication:Pantaprozole renewed for GERD Gastroesophageal reflux disease (GERD) is when the contents of your stomach persistently move back up into your esophagus. These contents sometimes contain excessive acid and may cause irritation and pain. The most common symptom of GERD is persistent heartburn, which may involve: a burning feeling in your stomach that may rise to your chest, neck, and throat a sour or bitter taste at the back of your mouth regurgitation of food or liquid from your stomach into your mouth Other possible symptoms of GERD include: a feeling of fullness or of a lump in the back of your throat (globus sensation) chronic cough a hoarse voice bad breath Patient understanding verified by teach back:Yes Total time spent on phone: 10 min /nataliia/ CHICO BECKWITH MSM, RN,CCM REGISTERED NURSE Signed: 03/08/2024 15:11 CHICO BECKWITH [facility]
--- OUTSIDE RECORDS SUMMARY | 2024-03-31 01:11 | XMS_ITS | Encounter Summary ---
Author Name [facility] [place] [facility] [place] [facility] [facility] [place] Address [address] [place] [address] Care Team Providers Care Jewelry Technician Name Role Phone KODAK MORTON Primary [...] CHOIC E PREFE RR Apr 13, 2020 [id number] [phone] BOOGIE BAILEY PATIENT ANTHEM [employer] [place] PREFERRED PROVIDER ORGANIZAT ION (PPO) BLUE CHOIC E PREFE RR Apr 13, 2020 [id number] [phone] BOOGIE BAILEY ANDON PATIENT ANTHEM [employer] [place] PREFERRED PROVIDER ORGANIZAT ION (PPO) BLUE CHOIC E PREFE RR Apr 13, 2020 [id number] [phone] STEPHANIE BAILEYON PATIENT [employer] PREFERRED PROVIDER ORGANIZAT ION (PPO) BLUE CHOIC E PREFE RR Apr 13, 2020 [id number] [phone] BOOGIE BAILEY PATIENT PRIME THERAPEUTI CS RX PRESCRIPT ION BCBSI L [place] Apr 13, 2020 [id number] [phone] BOOGIE BAILEY PATIENT [facility] [place] May 10, 2019 [facility] [id number] BOOGIE BAILEY PATIENT Selected Encounter This section includes the information on record at [place] for the Encounter. Date/Time Encounter Type Encounter Description Reason Pro vider Source Mar 05, 2024 11:04 AM Outpatient Encounter EMERGENCY DEPT IHE Encounter Template Text not used by [place] Plan of Treatment: Future Appointments (+ 6 months) and Future Tests (+/- 45 days) The Plan of Treatment section includes future care activities for the patient from all [place] treatment[facility] hospital. This section includes future appointments and future orders which are active, pending or scheduled. Future Appointments This section includes appointments that were scheduled to occur 6 months from the date of the Encounter, up to a maximum of 20 appointments. The data comes from all [facility]. Appointment Date/Time Appointment Type Appointme nt Facility Name Mar 16, 2024 10:15 AM AMBULATORY - SURGERY [facility] Mar 21, 2024 12:14 PM AMBULATORY - MEDICINE [facility] Apr 01, 2024 10:00 AM AMBULATORY - PSYCHIATRY [facility] Apr 28, 2024 03:00 PM AMBULATORY - MEDICINE [facility] May 05, 2024 11:30 AM AM[facility]UL[facility]ORY - MEDICINE [facility] May 27, 2024 11:00 AM AMBULATORY - MEDICINE [facility] Active, Pending, and Scheduled Orders This section includes a listing of several types of active, pending, and scheduled orders, including clinic medications orders, diagnostic test orders, procedure orders and consult orders; where thestart date of the order is 45 days before the date of the Encounter or 45 days after the date of the Encounter. The data comes from all [facility]. Test Date/Time Test Type Test Details Facility Name Jan 26, 2024 02:11 PM Consult Order RHEUMATOLO GY OUTPATIENT [facility] Feb 17, 2024 01:16 PM Consult Order PLASTIC SHELLEY RGERY OUTPT [facility] Mar 16, 2024 10:22 AM Consult Order [facility] PLASTIC SURG Cons Glass Curvature [facility] Mar 21, 2024 03:48 PM Procedure Order CP EKG STL CP EKG - STL Proc Glass Curvature [facility] Lab Results: +/- 30 days of [...] Range Comment Mar 21, 2024 12:30 PM [facility] COMPREHENSIVE METABOLIC PANEL Specimen Type: PLASMA Comment: No hemolysis noted. Ordering Provider: SUSAN BROWN Report Released Date/Time: Mar 21, 2024 12:23 PM Reporting Lab: [address] [address] Performing Lab: [address] [address] CREATININE 1.00 mg/dL 0.7-1.3 UREA NITROGEN 18.1 [...] 98.2 >60 Mar 21, 2024 12:30 PM [facility] CBC Specimen Type: BLOOD No comment entered. Ordering Provider: SUSAN BROWN Report Released Date/Time: Mar 21, 2024 12:23 PM Reporting Lab: [address] [address] Performing Lab: [facility] [address] [facility] [address] WBC 7.2 10*3/uL 3.6-11.2 RBC 4.24 10*6/uL [...] 10*3/uL 0.00-0.20 Mar 05, 2024 11:10 AM [facility] TROPONIN I Specimen Type: PLASMA No comment entered. Ordering Provider: MUKESH MARINELLI Report Released Date/Time: Mar 05, 2024 11:04 AM Reporting Lab: [place] [address] [address] [facility] [address] Performing Lab: [address] [address] TROPONIN I <0.010 ng/mL 0-0.033 Mar 05, 2024 09:50 AM [facility] RESPIRATORY PCR PANEL Specimen Type: [...] the clinician evaluating the patient. Claudio GREEN, (500) Ordering Provider: MUKESH MARINELLI Report Released Date/Time: Mar 05, 2024 09:39 AM Reporting Lab: [facility] [address] [place] [phone] Performing Lab: [address] [address] *Adenovirus (BF) Not Detected Not Detected *Coronavirus [...] Not Detected Mar 05, 2024 09:00 AM [facility] CBC Specimen Type: BLOOD No comment entered. Ordering Provider: MUKESH MARINELLI Report Released Date/Time: Mar 05, 2024 08:52 AM Reporting Lab: [facility] [address] [facility] [address] Performing Lab: [address] [address] WBC 7.1 10*3/uL 3.6-11.2 RBC 4.84 10*6/uL [...] 10*3/uL 0.00-0.20 Mar 05, 2024 09:00 AM [facility] TROPONIN I Specimen Type: PLASMA Comment: No hemolysis noted. Ordering Provider: MUKESH MARINELLI Report Released Date/Time: Mar 05, 2024 08:52 AM Reporting Lab: [place] [phone] Performing Lab: [address] [address] TROPONIN I 0.013 ng/mL 0-0.033 Mar 05, 2024 09:00 AM [facility] TSH (MA-PB) Specimen Type: SERUM No comment entered. Ordering Provider: MUKESH MARINELLI Report Released Date/Time: Mar 05, 2024 09:39 AM Reporting Lab: [place] [phone] Performing Lab: [address] [address] TSH 0.283 u[IU]/mL L 0.47-5 FREE T4(REFLEX) 1.10 ng/mL 0.7-1.48 Mar 05, 2024 09:00 AM [facility] BRAIN NATRIURETIC PEPTIDE Specimen Type: PLASMA No comment entered. Ordering Provider: MUKESH MARINELLI Report Released Date/Time: Mar 05, 2024 09:39 AM Reporting Lab: [facility] [address] [facility] [address] Performing Lab: [address] [address] BRAIN NATRIURETIC PEPTIDE 16.2 pg/mL 0-100 Mar 05, 2024 09:00 AM [facility] COMPREHENSIVE METABOLIC PANEL Specimen Type: PLASMA Comment: No hemolysis noted. Ordering Provider: MUKESH MARINELLI Report Released Date/Time: Mar 05, 2024 08:52 AM Reporting Lab: [facility] [address] [facility] [address] Performing Lab: [address] [address] CREATININE 0.92 mg/dL 0.7-1.3 UREA NITROGEN 15.6 [...] 05, 2024 11:45 AM 88 116/84 2 [facility] Mar 05, 2024 09:40 AM 98.6 [facility] Mar 05, 2024 08:48 AM 98 136 134/82 18 3 [facility] Social History: Smoking Status [...] 03:59 PM VA-TOBACCO NEVER USED [facility] Radiology Reports: +/- 30 days [...] PM CHEST X-RAY, 2 VIEWS: JORDYN BAILEY [id number] -1985 M Exm Date: MAR 21, 2024@12:34 Req Phys: SUSAN BROWN Loc: -EMERGENCY DEPT 2ND SHIFT (R Img Loc: -MAIN RADIOLOGY SUITE Service: [address] [address] (Case [id number] COMPLETE) CHEST X-RAY, 2 VIEWS (RAD Detailed) CPT:30812 Reason for Study: cough, SOB Clinical History: Report Status: Verified Date Reported: MAR 21, 2024 Date Verified: MAR 21, 2024 Records Management Specialist E-Sig:/ES/Lynn Castro MD Report: CHEST X-RAY, 2 VIEWS CASE #: [id number] DATE:03/21/2024 12:39 PM CLINICAL HISTORY:cough, SOB COMPARISON: 03/05/2024, 05/20/2023, 05/28/2022 TECHNIQUE: CHEST X-RAY, 2 VIEWS Impression: FINDINGS/IMPRESSION: Low lung volumes. Top normal heart size. No CHF. Bibasilar atelectasis versus pneumonia. Correlate clinically. No pleural effusion. No pneumothorax. Primary Interpreting Staff: Lynn Castro MD, Radiologist (Records Management Specialist) /LYNN ONEILL [facility] Mar 05, 2024 10:[address] PE CHEST W/3D: JORDYN BAILEY [id number] -1985 M Exm Date: MAR 05, 2024@10:00 Req Phys: MUKESH MARINELLI Loc: [facility]-EMERGENCY DEPT 2ND SHIFT (R Img Loc: [facility]-CT IMAGING [facility] Service: Unknown [facility] [address] [place] [address] (Case [id number] COMPLETE) CT THORAX W/CONT (PE) (CT Detailed) CPT:61147 Contrast Media : unspecified contrast media Reason [...] 05, 2024 Date Verified: MAR 05, 2024 Records Management Specialist E-Sig: Report: CT THORAX W/CONT (PE) [PRINTSET] HISTORY: chest pain, tachycardia COMPARISON: 02/12/2024 TECHNIQUE: Helical CT of the chest, with multiplanar reformats including maximum intensity projection (MIP) reconstructions, was performed at the local [place] facility. 1529 images were received by the [place] [facility] ([facility]) for interpretation. RADIATION [...] excluded. 3. Cardiomegaly. READING PHYSICIAN: Wilfred Roberts -[phone] 03/05/2024 7:32 [facility] National Teleradiology Program [phone] (For Medical Practitioner Use Only) Attention Patients / Veterans: If you have questions or concerns about these test results, please contact your ordering provider or primary care team. Primary Interpreting Staff: RADIOLOGY,OUTSIDE SERVICE, Staff Physician / RADIOLOGY,OUTSIDE SERVICE [facility] Mar 05, 2024 08:59 AM CHEST PORTABLE: JORDYN BAILEY [id number] -1985 M Exm Date: MAR 05, 2024@08:59 Req Phys: MUKESH MARINELLI Loc: [facility]-EMERGENCY DEPT 2ND SHIFT (R Img Loc: -MAIN RADIOLOGY SUITE Service: [facility] [address] [place] [address] (Case [id number] COMPLETE) CHEST PORTABLE (RAD Detailed) CPT:13668 Proc Modifiers : Portable Reason for Study: chest pain Clinical History: Report Status: Verified Date Reported: MAR 05, 2024 Date Verified: MAR 05, 2024 Records Management Specialist E-Sig: Report: CHEST PORTABLE Comparison: 05/20/2023, 02/12/2024 Clinical History: chest pain The study was performed and supervised at the local [place] facility, and subsequently transmitted to [facility] NTP (National T[facility]adiology Program) for interpretation. Impression: Lungs: Small left effusion with left basilar opacity which may represent atelectasis or consolidation.. Cardiomediastinal silhouette: No enlargement of the cardiomediastinal silhouette. Bones and soft tissues: No acute finding. READING PHYSICIAN: Sandeep Kraft M.D. -[id number] 03/05/2024 7:29 PST [facility] National Teleradiology Program [phone] (For Medical Practitioner Use Only) Attention Patients / Veterans: If you have questions or concerns about these test results, please contact your ordering provider or primary care team. Primary Interpreting Staff: RADIOLOGY,OUTSIDE SERVICE, Staff Physician / RADIOLOGY,OUTSIDE SERVICE [facility] Feb 12, 2024 02:[address] THORAX W/O CONT HIGH RES: JORDYN BAILEY [id number] -1985 M Exm Date: FEB 12, 2024@14:18 Req Phys: FLOYD WOO Loc: [facility]-PULM GURINDER 1 (Req'g Loc) Img Loc: [facility] IMAGING [facility] Service: Unknown [facility] [address] [place] [address] (Case [id number] COMPLETE) CT THORAX W/O CONT HIGH RES (CT Detailed) CPT:53288 Reason for Study: chronic cough, exertional dyspnea, + hazardous exposure hx Clinical History: Responsible Attending: floyd woo PA-C Attending Contact Number: [phone] Resident Contact Number: Allergies listed in CPRS chart: SHELLFISH Creatinine: CREATININE 0.95 mg/dL 11/25/2023 11:00 /eGFR: STL EGFR (within one year). CREATININE 0.95 mg/dL (11/25/23 11:00) Wt: 218.3 lb [99.02 kg] (01/14/2024 08:55) History of: Renal failure, chronic or acute renal disease: NO Report Status: Verified Date Reported: FEB 15, 2024 Date Verified: FEB 15, 2024 Records Management Specialist E-Sig:/ES/Lynn Castro MD Report: CASE #: [id number] DATE:02/12/2024 4:23 PM CLINICAL HISTORY:chronic cough, exertional [...] Primary Interpreting Staff: Lynn Castro MD, Radiologist (Records Management Specialist) /LYNN ONEILL [facility] Encounter Notes: All associated encounter notes This section contains the clinical notes associated to the Encounter. Date/Time Encounter Note(s) Provider Source Mar 07, 2024 10:34 AM CARDIOLOGY DIAGNOS TIC STUDY CONSULT: LOCAL TITLE: EKG CONSULT STL STANDARD TITLE: CARDIOLOGY DIAGNOSTIC STUDY CONSULT DATE OF NOTE: MAR 07, 2024@10:34 ENTRY DATE: MAR 07, 2024@10:34 AUTHOR: CLINICAL,DEVICE PRO EXP COSIGNER: URGENCY: STATUS: COMPLETED DOCUMENT IN [facility]IST[facility] SEE FULL REPORT IN [facility] SIGNATURE NOT REQUIRED SEE SIGNATURE IN [facility]IST[facility] (Drake EKG) AUTO-INSTRUMENT DIAGNOSIS Procedure: [id number] 12 Lead ECG Release Status: Released Off-Line Verified Date Verified: Mar 07, 2024@10:33:55 16905.2 Ventricular Rate: 107 BPM 26350.3 Atrial Rate: 107 BPM 37795.4 P-R Interval: 176 ms 66946.5 QRS Duration: 82 ms 27344.6 Q-T Interval: 300 ms 27358 QTC Calculation(Bazett)400 ms 65533.12 Calculated P [place]: 27 degrees 41923.13 Calculated R [place]: 0 degrees 30886.14 Calculated T [place]: 2 degrees Sinus tachycardia Minimal voltage criteria for LVH, may be normal variant ( R in aVL ) Statement not found (710) Statement not found (711) Abnormal ECG When compared with ECG of 05-MAR-2024 08:54, No significant change was found Administrative Closure: 03/07/2024 by: CLINICAL,DEVICE PROXY SERVICE CLINICAL,DEVICE PROXY SERVICE [facility]
--- OUTSIDE RECORDS SUMMARY | 2024-03-31 01:13 | XMS_ITS | Encounter Summary ---
Author Name [facility] [place] Organization [facility] [place] Address [address] [place] [address] Care Team Providers Care Herb Digger Name Role Phone KODAK MORTON Primary Care [...] CHOIC E PREFE RR Apr 13, 2020 [id number] [phone] BOOGIE BAILEY ANDON PATIENT ANTHEM [place] PREFERRED PROVIDER ORGANIZAT ION (PPO) BLUE CHOIC E PREFE RR Apr 13, 2020 [id number] [phone] BOOGIE BAILEY ANDON PATIENT ANTHEM [place] PREFERRED PROVIDER ORGANIZAT ION (PPO) BLUE CHOIC E PREFE RR Apr 13, 2020 [id number] [phone] BOOGIE BAILEY ANDCARLA PATIENT [employer] PREFERRED PROVIDER ORGANIZAT ION (PPO) BLUE CHOIC E PREFE RR Apr 13, 2020 [id number] [phone] BOOGIE BAILEY PATIENT PRIME THERAPEUTI CS RX PRESCRIPT ION BCBSI L TAYLER Apr 13, 2020 BCBSIL [id number] [phone] BOOGIE BAILEY PATIENT [facility] 2018 TRICA RE May 10, 2019 SELECT [id number] BOOGIE BAILEY PATIENT Selected Encounter This section includes the information on record at [place] for the Encounter. Date/Time Encounter Type Encounter Description Reason Provider Source Mar 17, 2024 10:15 AM Outpatient Encounter PRIMARY CARE/MEDICINE NOELLE FLORES [...] 20 appointments. The data comes from all [facility]. Appointment Date/Time Appointment Type Appointme nt Facility Name Mar 21, 2024 12:14 PM AMBULATORY - MEDICINE [facility] Apr 01, 2024 10:00 AM AMBULATORY - PSYCHIATRY [facility] Apr 28, 2024 03:00 PM AMBULATORY - MEDICINE [facility] May 05, 2024 11:30 AM AM[facility]ORY - MEDICINE [facility] May 27, 2024 11:00 AM AMBULATORY - MEDICINE [facility] Active, Pending, and Scheduled Orders This section includes a listing of several types of active, pending, and scheduled orders, including clinic medications orders, diagnostic test orders, procedure orders and consult orders; where the start date of the order is 45 days before the date of the Encounter or 45 days after the date of theEncounter. The data comes from all [facility]. Test Date/Time Test Type Test Details Facility Name Feb 17, 2024 01:16 PM Consult Order PLASTIC SHELLEY RGERY OUTPT STL Cons Used Car Lot Attendant's Choice [facility] Mar 16, 2024 10:22 AM Consult Order [facility]-ST[facility] PLASTIC SURG Cons Used Car Lot Attendant's [facility] Mar 21, 2024 03:48 PM Procedure Order CP EKG STL CP EKG - STL Proc Used Car Lot Attendant's Choice [facility] Lab Results: +/- 30 days [...] Range Comment Mar 21, 2024 12:30 PM [facility] COMPREHENSIVE METABOLIC PANEL Specimen Type: PLASMA Comment: No hemolysis noted. Ordering Provider: SUSAN BROWN Report Released Date/Time: Mar 21, 2024 12:23 PM Reporting Lab: [facility] [address] [place] [phone] Performing Lab: [facility] [address] [place] [address] CREATININE 1.00 mg/dL 0.7-1.3 UREA NITROGEN 18.1 [...] 98.2 >60 Mar 21, 2024 12:30 PM [facility] CBC Specimen Type: BLOOD No comment entered. Ordering Provider: SUSAN BROWN Report Released Date/Time: Mar 21, 2024 12:23 PM Reporting Lab: [facility] [address] [facility] [address] Performing Lab: [facility] [address] [place] [phone] WBC 7.2 10*3/uL 3.6-11.2 RBC 4.24 10*6/uL [...] 10*3/uL 0.00-0.20 Mar 05, 2024 11:10 AM [facility] TROPONIN I Specimen Type: PLASMA No comment entered. Ordering Provider: MUKESH MARINELLI Report Released Date/Time: Mar 05, 2024 11:04 AM Reporting Lab: [address] [address] Performing Lab: [address] [address] TROPONIN I <0.010 ng/mL 0-0.033 Mar 05, 2024 09:50 AM [facility] RESPIRATORY PCR PANEL Specimen Type: NASOPHARYNX Comment: The TBi ConnectArray RP Panel combines nested multiplex PCR and [...] available to the clinician evaluating the patient. BO.LTFIRECurrencyFairKelly [facility], (598) Ordering Provider: MUKESH MARINELLI Report Released Date/Time: Mar 05, 2024 09:39 AM Reporting Lab: [facility] [address] [facility] [address] Performing Lab: [facility] [address] [place] [phone] *Adenovirus (BF) Not Detected Not Detected *Coronavirus [...] Not Detected Mar 05, 2024 09:00 AM [facility] CBC Specimen Type: BLOOD No comment entered. Ordering Provider: MUKESH MARINELLI Report Released Date/Time: Mar 05, 2024 08:52 AM Reporting Lab: [facility] [address] [facility] [address] Performing Lab: [address] [address] WBC 7.1 10*3/uL 3.6-11.2 RBC 4.84 10*6/uL [...] 10*3/uL 0.00-0.20 Mar 05, 2024 09:00 AM [facility] TROPONIN I Specimen Type: PLASMA Comment: No hemolysis noted. Ordering Provider: MUKESH MARINELLI Report Released Date/Time: Mar 05, 2024 08:52 AM Reporting Lab: [place] [address] Performing Lab: [place] [phone] TROPONIN I 0.013 ng/mL 0-0.033 Mar 05, 2024 09:00 AM [facility] TSH (MA-PB) Specimen Type: SERUM No comment entered. Ordering Provider: MUKESH MARINELLI Report Released Date/Time: Mar 05, 2024 09:39 AM Reporting Lab: [address] [address] Performing Lab: [address] [address] TSH 0.283 u[IU]/mL L 0.47-5 FREE T4(REFLEX) 1.10 ng/mL 0.7-1.48 Mar 05, 2024 09:00 AM [facility] COMPREHENSIVE METABOLIC PANEL Specimen Type: PLASMA Comment: No hemolysis noted. Ordering Provider: MUKESH MARINELLI Report Released Date/Time: Mar 05, 2024 08:52 AM Reporting Lab: [facility] [address] [facility] [address] Performing Lab: [facility] [address] [facility] [address] CREATININE 0.92 mg/dL 0.7-1.3 UREA NITROGEN 15.6 [...] 108.5 >60 Mar 05, 2024 09:00 AM [facility] BRAIN NATRIURETIC PEPTIDE Specimen Type: PLASMA No comment entered. Ordering Provider: MUKESH MARINELLI Report Released Date/Time: Mar 05, 2024 09:39 AM Reporting Lab: [facility] [address] [facility] [address] Performing Lab: [address] [address] BRAIN NATRIURETIC PEPTIDE 16.2 pg/mL 0-100 Social History: Smoking Status (Most current) and [...] 26, 2021 03:59 PM VA-TOBACCO NEVER USED [facility] Radiology Reports: +/- 30 days [...] PM CHEST X-RAY, 2 VIEWS: JORDYN BAILEY [id number] -1985 M Exm Date: MAR 21, 2024@12:34 Req Phys: SUSAN BROWN Loc: -EMERGENCY DEPT 2ND SHIFT (R Img Loc: -MAIN RADIOLOGY SUITE Service: Unknown [address] [address] (Case [id number] COMPLETE) CHEST X-RAY, 2 VIEWS (RAD Detailed) CPT:79328 Reason for Study: cough, SOB Clinical History: Report Status: Verified Date Reported: MAR 21, 2024 Date Verified: MAR 21, 2024 Private Branch Exchange Operator E-Sig:/ES/Lynn Castro MD Report: CHEST X-RAY, 2 VIEWS CASE #: [id number] DATE:03/21/2024 12:39 PM CLINICAL HISTORY:cough, SOB COMPARISON: 03/05/2024, 05/20/2023, 05/28/2022 TECHNIQUE: CHEST X-RAY, 2 VIEWS Impression: FINDINGS/IMPRESSION: Low lung volumes. Top normal heart size. No CHF. Bibasilar atelectasis versus pneumonia. Correlate clinically. No pleural effusion. No pneumothorax. Primary Interpreting Staff: Lynn Castro MD, Radiologist (Private Branch Exchange Operator) /LYNN ONEILL [facility] Mar 05, 2024 10:[address] PE CHEST W/3D: JORDYN BAILEY ANTHONY [id number] -1985 M Exm Date: MAR 05, 2024@10:00 Req Phys: MUKESH MARINELLI Loc: -EMERGENCY DEPT 2ND SHIFT (R Img Loc: -CT IMAGING [facility] Service: Unknown [address] [address] (Case [id number] COMPLETE) CT THORAX W/CONT (PE) (CT Detailed) CPT:79299 Contrast Media : unspecified contrast media Reason [...] 05, 2024 Date Verified: MAR 05, 2024 Private Branch Exchange Operator E-Sig: Report: CT THORAX W/CONT (PE) [...] excluded. 3. Cardiomegaly. READING PHYSICIAN: Wilfred Roberts -[id number] 03/05/2024 7:32 [facility] National Teleradiology Program [phone] (For Medical Practitioner Use Only) Attention Patients / Veterans: If you have questions or concerns about these test results, please contact your ordering provider or primary care team. Primary Interpreting Staff: RADIOLOGY,OUTSIDE SERVICE, Staff Physician / RADIOLOGY,OUTSIDE SERVICE [facility] Mar 05, 2024 08:59 AM CHEST PORTABLE: JORDYN BAILEY [id number] -1985 M Exm Date: MAR 05, 2024@08:59 Req Phys: MUKESH MARINELLI Loc: -EMERGENCY DEPT 2ND SHIFT (R Img Loc: -MAIN RADIOLOGY SUITE Service: [facility], [facility] [address] [place] [address] (Case [id number] COMPLETE) CHEST PORTABLE (RAD Detailed) CPT:94012 Proc Modifiers : Portable Reason for Study: chest pain Clinical History: Report Status: Verified Date Reported: MAR 05, 2024 Date Verified: MAR 05, 2024 Private Branch Exchange Operator E-Sig: Report: CHEST PORTABLE Comparison: 05/20/2023, 02/12/2024 Clinical History: chest pain The study was performed and supervised at the local [place] facility, and subsequently transmitted to [facility]TP (National Teleradiology Program) for interpretation. Impression: Lungs: Small left effusion with left basilar opacity which may represent atelectasis or consolidation.. Cardiomediastinal silhouette: No enlargement of the cardiomediastinal silhouette. Bones and soft tissues: No acute finding. READING PHYSICIAN: Sandeep Kraft M.D. -[id number] 03/05/2024 7:29 PST [facility] National Teleradiology Program [phone] (For Medical Practitioner Use Only) Attention Patients / Veterans: If you have questions or concerns about these test results, please contact your ordering provider or primary care team. Primary Interpreting Staff: RADIOLOGY,OUTSIDE SERVICE, Staff Physician / RADIOLOGY,OUTSIDE SERVICE [facility] Encounter Notes: All associated encounter notes This section contains the clinical notes associated to the Encounter. Date/Time Encounter Note(s) Provider Source Mar 17, 2024 01:51 PM ADDENDUM: LOCAL TITLE: Addendum STANDARD TITLE: ADDENDUM DATE OF NOTE: MAR 17, 2024@13:51:50 ENTRY DATE: MAR 17, 2024@13:51:51 AUTHOR: KODAK MORTON EXP COSIGNER: URGENCY: STATUS: COMPLETED Please advise him he can buy [id number]-jti-[id number] Robitussin DM and take his as directed on the label /nataliia/ Kodak Morton MD Staff Physician Signed: 03/17/2024 13:52 Receipt Acknowledged By: 03/17/2024 14:35 /nataliia/ NOELLE JIMENEZ RN REGISTERED NURSE ====== --- Original Document --- 03/17/24 PRIMARY CARE SECURE MESSAGING: ------Original Message ------- Sent: 03/17/2024 11:22 AM ET From: JORDYN BAILEY To: RUST, Caron_Nacho MORTON_Primary Care, [place] Subject: General:Medication ordered Hello, Benzonatate has done nothing for me in the past, can i get prescribes something different please? /nataliia/ NOELLE JIMENEZ RN REGISTERED NURSE Signed: 03/17/2024 11:08 Receipt Acknowledged By: 03/17/2024 13:52 /luis Morton MD Staff Physician KODAK MORTON [facility] Mar 17, 2024 12:08 PM PRIMARY CARE SECUR E MESSAGING: LOCAL TITLE: PRIMARY CARE SECURE MESSAGING STANDARD TITLE: PRIMARY CARE SECURE MESSAGING DATE OF NOTE: MAR 17, 2024@12:08 ENTRY DATE: MAR 17, 2024@11:08:19 AUTHOR: NOELLE FLORES EXP COSIGNER: URGENCY: STATUS: COMPLETED PRIMARY CARE SECURE MESSAGING Has ADDENDA ------Original Message ------- Sent: 03/17/2024 11:22 AM ET From: JORDYN BAILEY To: STKelsie, Caron_SELENE, [facility] Subject: General:Medication ordered Hello, Benzonatate has done nothing for me in the past, can i get prescribes something different please? /nataliia/ NOELLE JIMENEZ RN REGISTERED NURSE Signed: 03/17/2024 11:08 Receipt Acknowledged By: 03/17/2024 13:52 /nataliia/ Kodak Morton MD Staff Physician 03/17/2024 ADDENDUM STATUS: COMPLETED Please advise him he can buy qkvz-gwi-arnszcp Robitussin DM and take his as directed on the label /nataliia/ Kodak Morton MD Staff Physician Signed: 03/17/2024 13:52 Receipt Acknowledged By: * AWAITING SIGNATURE * NOELLE FLORES RICHELLE D [facility] Mar 17, 2024 10:15 AM PRIMARY CARE [place] MESSAGING: LOCAL TITLE: PRIMARY CARE SECURE MESSAGING STANDARD TITLE: PRIMARY CARE SECURE MESSAGING DATE OF NOTE: MAR 17, 2024@10:15 ENTRY DATE: MAR 17, 2024@09:15:29 AUTHOR: NOELLE FLORES EXP COSIGNER: URGENCY: STATUS: COMPLETED ------Original Message ------- Sent: 03/17/2024 10:15 AM ET From: NOELLE FLORES To: JORDYN BAILEY Subject: General:Medication ordered Good Morning, Per Dr. Morton: Ordered benzonatate 200 mg capsule 3 times a day as needed for cough Also review of chart noted pulmonary (lung doctor prescribed him Wixela inhaler which was DC'd January 14, 2024 visit. To continue albuterol inhaler as needed For possible Post-viral cough with possible reactive airway dz: - also call and follow-up with pulm clinic Noelle JIMENEZ, poultry killer /nataliia/ NOELLE JIMENEZ RN REGISTERED NURSE Signed: 03/17/2024 09:15 NOELLE FLORES [facility]
--- OUTSIDE RECORDS SUMMARY | 2024-03-31 01:14 | XMS_ITS ---
Author Name [facility] [place] Address [address] [place] [address] Care Team Providers Care Raisin Washer Name Role Phone KODAK MORTON Primary Care [...] CHOIC E PREFE RR Apr 13, 2020 [id number] [phone] BOOGIE BAILEY ANDON PATIENT ANTHEM [place] PREFERRED PROVIDER ORGANIZAT ION (PPO) BLUE CHOIC E PREFE RR Apr 13, 2020 [id number] LYNN,BOOGIE ANDON PATIENT ANTHEM [place] PREFERRED PROVIDER ORGANIZAT ION (PPO) BLUE CHOIC E PREFE RR Apr 13, 2020 [id number] [phone] BOOGIE BAILEY ANDON PATIENT [place] PREFERRED PROVIDER ORGANIZAT ION (PPO) BLUE CHOIC E PREFE RR Apr 13, 2020 [id number] BOOGIE BAILEY PATIENT PRIME THERAPEUTI CS RX PRESCRIPT ION BCBSI L TAYLER Apr 13, 2020 BCBSIL [id number] [phone] BOOGIE BAILEY PATIENT [facility] 2018 TRICA RE May 10, 2019 SELECT [id number] BOOGIE BAILEY PATIENT Selected Encounter This section includes the information on record at [place] for the Encounter. Date/Time Encounter Type Encounter Description Reason Provider Source Mar 16, 2024 10:15 AM OFFICE O/P EST HI 40 MIN PLASTIC SURGERY ICD-10-CM G56.00 Carpal tunnel syndrome, unspecified upper limb COUPERDELANO IHValentin Encounter Template Text not used by [place] Assessments - Encounter Diagnoses This section includes the primary and secondary diagnoses documented for the Encounter. Date/Time Primary/Secondary Diagnosis Diagnosis Name Provider Source Mar 21, 2024 03:16 PM PRIMARY Carpal tunnel syndrome, unspecified upper limb COUPERDELANO [facility] Plan of Treatment: Future Appointments (+ 6 months) and Future Tests (+/- 45 days) The Plan of Treatment section includes future care activities for the patient [facility] [place] [facility] This section includes future appointments and future orders which are active, pending or scheduled. Future Appointments This section includes appointments that were scheduled to occur 6 months from the date of the Encounter, up to a maximum of 20 appointments. The data comes from all [facility]. Appointment Date/Time Appointment Type Appointme nt Facility Name Mar 21, 2024 12:14 PM AMBULATORY - MEDICINE [facility] Apr 01, 2024 10:00 AM AMBULATORY - PSYCHIATRY [facility] Apr 28, 2024 03:00 PM AMBULATORY - MEDICINE [facility] May 05, 2024 11:30 AM AMBULATORY - MEDICINE [facility] May 27, 2024 11:00 AM AMBULATORY - MEDICINE [facility] Active, Pending, and Scheduled Orders [...] Order PLASTIC SHELLEY RGERY OUTPT STL Cons Revenue Accounting Manager's [facility] Mar 16, 2024 10:22 AM Consult Order COMMUNITY CARE-STL PLASTIC SURG Cons Revenue Accounting Manager's [facility] Mar 21, 2024 03:48 PM Procedure Order CP EKG STL CP EKG - STL Proc Revenue Accounting Manager's [facility] Lab Results: +/- 30 days [...] Range Comment Mar 21, 2024 12:30 PM [facility] COMPREHENSIVE METABOLIC PANEL Specimen Type: PLASMA Comment: No hemolysis noted. Ordering Provider: SUSAN BROWN Report Released Date/Time: Mar 21, 2024 12:23 PM Reporting Lab: [facility] [address] [facility] [address] Performing Lab: [address] [address] CREATININE 1.00 mg/dL 0.7-1.3 UREA NITROGEN 18.1 [...] 98.2 >60 Mar 21, 2024 12:30 PM [facility] CBC Specimen Type: BLOOD No comment entered. Ordering Provider: SUSAN BROWN Report Released Date/Time: Mar 21, 2024 12:23 PM Reporting Lab: [facility] [address] [facility] [address] Performing Lab: [facility] [address] [facility] [address] WBC 7.2 10*3/uL 3.6-11.2 RBC 4.24 10*6/uL [...] 10*3/uL 0.00-0.20 Mar 05, 2024 11:10 AM [facility] TROPONIN I Specimen Type: PLASMA No comment entered. Ordering Provider: MUKESH MARINELLI Report Released Date/Time: Mar 05, 2024 11:04 AM Reporting Lab: [facility] [address] [facility] [address] Performing Lab: [address] [address] TROPONIN I <0.010 ng/mL 0-0.033 Mar 05, 2024 09:50 AM [facility] RESPIRATORY PCR PANEL Specimen Type: NASOPHARYNX Comment: The MValve technologiesArray RP Panel combines nested multiplex PCR and [...] the clinician evaluating the patient. Claudio GREEN, (531) Ordering Provider: MUKESH MARINELLI Report Released Date/Time: Mar 05, 2024 09:39 AM Reporting Lab: [facility] [address] [facility] [address] Performing Lab: [place] [address] [facility] [address] *Adenovirus (BF) Not Detected Not Detected *Coronavirus [...] Not Detected Mar 05, 2024 09:00 AM [facility] CBC Specimen Type: BLOOD No comment entered. Ordering Provider: MUKESH MARINELLI Report Released Date/Time: Mar 05, 2024 08:52 AM Reporting Lab: [facility] [address] [facility] [address] Performing Lab: [facility] [address] [facility] [address] WBC 7.1 10*3/uL 3.6-11.2 RBC 4.84 10*6/uL [...] 10*3/uL 0.00-0.20 Mar 05, 2024 09:00 AM [facility] TROPONIN I Specimen Type: PLASMA Comment: No hemolysis noted. Ordering Provider: MUKESH MARINELLI Report Released Date/Time: Mar 05, 2024 08:52 AM Reporting Lab: [address] [address] Performing Lab: [address] [address] TROPONIN I 0.013 ng/mL 0-0.033 Mar 05, 2024 09:00 AM [facility] TSH (MA-PB) Specimen Type: SERUM No comment entered. Ordering Provider: MUKESH MARINELLI Report Released Date/Time: Mar 05, 2024 09:39 AM Reporting Lab: [address] [address] Performing Lab: [address] [address] TSH 0.283 u[IU]/mL L 0.47-5 FREE T4(REFLEX) 1.10 ng/mL 0.7-1.48 Mar 05, 2024 09:00 AM [facility] BRAIN NATRIURETIC PEPTIDE Specimen Type: PLASMA No comment entered. Ordering Provider: MUKESH MARINELLI Report Released Date/Time: Mar 05, 2024 09:39 AM Reporting Lab: [facility] [address] [facility] [address] Performing Lab: [address] [address] BRAIN NATRIURETIC PEPTIDE 16.2 pg/mL 0-100 Mar 05, 2024 09:00 AM [facility] COMPREHENSIVE METABOLIC PANEL Specimen Type: PLASMA Comment: No hemolysis noted. Ordering Provider: MUKESH MARINELLI Report Released Date/Time: Mar 05, 2024 08:52 AM Reporting Lab: [facility] [address] [place] [address] Performing Lab: [facility] [address] [facility] [address] CREATININE 0.92 mg/dL 0.7-1.3 UREA NITROGEN 15.6 [...] Height Weight Body Mass Index Source Mar 16, 2024 10:04 AM 97.7 107 101/66 20 98 6 71 195.5 27 [facility] Social History: Smoking [...] Date/Time Current Smoking Status Comment Nicolas ity Feb 26, 2021 03:59 PM VA-TOBACCO NEVER USED [facility] Radiology Reports: +/- 30 [...] PM CHEST X-RAY, 2 VIEWS: JORDYN BAILEY [id number] -1985 M Exm Date: MAR 21, 2024@12:34 Req Phys: SUSAN BROWN Loc: -EMERGENCY DEPT 2ND SHIFT (R Img Loc: -MAIN RADIOLOGY SUITE Service: [address] [address] (Case [id number] COMPLETE) CHEST X-RAY, 2 VIEWS (RAD Detailed) CPT:04461 Reason for Study: cough, SOB Clinical History: Report Status: Verified Date Reported: MAR 21, 2024 Date Verified: MAR 21, 2024 Limited Radiology Technician E-Sig:/ES/Lynn Castro MD Report: CHEST X-RAY, 2 VIEWS CASE #: [id number] DATE:03/21/2024 12:39 PM CLINICAL HISTORY:cough, SOB COMPARISON: 03/05/2024, 05/20/2023, 05/28/2022 TECHNIQUE: CHEST X-RAY, 2 VIEWS Impression: FINDINGS/IMPRESSION: Low lung volumes. Top normal heart size. No CHF. Bibasilar atelectasis versus pneumonia. Correlate clinically. No pleural effusion. No pneumothorax. Primary Interpreting Staff: Lynn Castro MD, Radiologist (Limited Radiology Technician) /LYNN ONEILL [facility] Mar 05, 2024 10:[address] PE CHEST W/3D: JORDYN BAILEY [id number] -1985 M Exm Date: MAR 05, 2024@10:00 Req Phys: MUKESH MARINELLI Loc: [facility]-EMERGENCY DEPT 2ND SHIFT (R Img Loc: [facility]-CT IMAGING [facility] Service: Unknown [facility] [address] [place] [address] (Case [id number] COMPLETE) CT THORAX W/CONT (PE) (CT Detailed) CPT:35282 Contrast Media : unspecified contrast media Reason [...] 05, 2024 Date Verified: MAR 05, 2024 Limited Radiology Technician E-Sig: Report: CT THORAX W/CONT (PE) [PRINTSET] [...] excluded. 3. Cardiomegaly. READING PHYSICIAN: Wilfred Roberts -[phone] 03/05/2024 7:32 [facility] National Teleradiology Program [phone] (For Medical Practitioner Use Only) Attention Patients / Veterans: If you have questions or concerns about these test results, please contact your ordering provider or primary care team. Primary Interpreting Staff: RADIOLOGY,OUTSIDE SERVICE, Staff Physician / RADIOLOGY,OUTSIDE SERVICE [facility] Mar 05, 2024 08:59 AM CHEST PORTABLE: JORDYN BAILEY [id number] -1985 M Exm Date: MAR 05, 2024@08:59 Req Phys: MUKESH MARINELLI Loc: [facility]-EMERGENCY DEPT 2ND SHIFT (R Img Loc: -MAIN RADIOLOGY SUITE Service: [facility], [address] [address] (Case [id number] COMPLETE) CHEST PORTABLE (RAD Detailed) CPT:71275 Proc Modifiers : Portable Reason for Study: chest pain Clinical History: Report Status: Verified Date Reported: MAR 05, 2024 Date Verified: MAR 05, 2024 Limited Radiology Technician E-Sig: Report: CHEST PORTABLE Comparison: 05/20/2023, 02/12/2024 Clinical History: chest pain The study was performed and supervised at the local [place] facility, and subsequently transmitted to [facility] (National Teleradiology Program) for interpretation. Impression: Lungs: Small left effusion with left basilar opacity which may represent atelectasis or consolidation.. Cardiomediastinal silhouette: No enlargement of the cardiomediastinal silhouette. Bones and soft tissues: No acute finding. READING PHYSICIAN: Sandeep Kraft M.D. -[id number] 03/05/2024 7:29 [facility] National Teleradiology Program [phone] (For Medical Practitioner Use Only) Attention Patients / Veterans: If you have questions or concerns about these test results, please contact your ordering provider or primary care team. Primary Interpreting Staff: RADIOLOGY,OUTSIDE SERVICE, Staff Physician / RADIOLOGY,OUTSIDE SERVICE [facility]
--- OUTSIDE RECORDS SUMMARY | 2024-03-31 01:34 | XMS_ITS | Encounter Summary ---
Author Organization [facility] Address [address] [place] [address]. [place], [place] [address] [place] [address] Care Team Providers Care Commercial Lines Insurance Agent Name Role Phone Preethi Hall Primary Care Provider [phone] Encounter Details Date Type Department Care Team (Late st Contact Info) Description 12/16/2020 - 12/16/2020 3:13 PM CDT Emergency [facility] [address] [place], [place] [id number] Discharge Disposition: Left Against Medical Advice Social [...] on filedocumented in this encounter Care Teams Commercial Lines Insurance Agent Relationship Specialty Start Date End Date Preethi Hall APNP [address] [address] PCP - General Nurse Practitioner Family 09/21/1911/12 documented as of this encounter
--- OUTSIDE RECORDS SUMMARY | 2024-03-31 01:34 | XMS_ITS | Clinical Summary ---
Author Organization [facility] Address [address] [place] [address]. [place] [address] [place] [address] Care Team Providers Care Nurse Tech Name Role Phone Patricia Milligan PA-C Primary Care Provider [phone] Allergies Active Allergy Reactions Criticality Noted Date [...] patient's age to complete this topic Insurance [facility] Care Teams Nurse Tech Relationship Specialty Start Date End Date Patricia Milligan PA-C [address] [facility] [address] [place] [address] PCP - General PHYSICIAN CASHIER PAYMENTS RECEIVED 12/03/22
--- OUTSIDE RECORDS SUMMARY | 2024-03-31 01:34 | XMS_ITS | Encounter Summary ---
Author Organization [facility] Address [address] [place] [address]. [place], [place] [address] [place] [address] Care Team Providers Care Ship Fitter Name Role Phone Preethi Hall Primary Care Provider [phone] Encounter Details Date Type Department Care Team (Late st Contact Info) Description 07/04/2020 5:26 PM CDT - 07/04/2020 11:59 PM CDT Hospital Encounter [facility] [address] [place] [address] Sergo Brand MD Discharge Disposition: Home or [...] URINE CLEAN CATCH 07/04/2020 5:26 PM CDT [facility] SPECIAL REQUESTS NO SPECIAL REQUEST 07/04/2020 5:26 PM CDT [facility] CULTURE RESULT NO GROWTH 2 DAYS 07/06/2020 7:56 AM CDT [facility] URINE SPECIMEN OBTAINED BY CLEAN CATCH PROCEDURE / Unknown 07/04/2020 5:26 PM CDT 07/04/2020 5:34 PM CDT us Sergo Brand MD MICROBIOLOGY - GENERAL O RDERABLES Final Result Performing Organization Address City/State/[facility] Co de Phone Number [facility] [address] [place] [address], [facility] [address] [place] [address], documented in this encounter Visit Diagnoses Diagnosis UTI symptoms documented in this encounter Care Teams Ship Fitter Relationship Specialty Start Date End Date Preethi Hall APNP [address] [address] PCP - General Nurse Practitioner Family 09/21/19 806/05 documented as of this encounter
--- OUTSIDE RECORDS SUMMARY | 2024-03-31 01:34 | XMS_ITS | Encounter Summary ---
Author Organization [facility] Address [address] [place] [address]. [place], [place] [address] [place] [address] Care Team Providers Care Motor Vehicle Dispatcher Name Role Phone Preethi Hall Primary Care Provider [phone] Reason for Referral * Audiology Exam (Routine) - Closed Specialty Diagnoses / Procedures Referred By Sugar espinal Referred To Contact AUDIOLOGY Diagnoses Sensorineural hearing loss (SNHL) of right ear, unspecified hearing status on contralateral side Preethi Hall APNP [address] [facility] [address] [place] [address] Phone: tel: fax: Referral ID Status Reason Start Date Expiration Date V isits Requested Visits Authorized [id number] Closed Specialty Services 09/23/2019 10/22/2020 1 1 * (Routine) - Closed Specialty Diagnoses / Procedures Referred By Sugar espinal Referred To Contact Diagnoses Infected epidermoid cyst Procedures Incision and Drainage Preethi Hall APNP [address] [facility] [address] [place] [address] Phone: tel: fax: Referral ID Status Reason Start Date Expiration Date Visits Re quested Visits Authorized [id number] Closed 09/23/2019 10/22/2020 1 1 Reason for [...] Description 09/21/2019 2:40 PM CDT Office Visit [facility] [address] [place] [address] Preethi Hall, JOSE [address] [facility] [address] [place] [address] Mass (bump on back states [...] side documented in this encounter Care Teams Motor Vehicle Dispatcher Relationship Specialty Start Date End Date Preethi Hall APNP [address] [address] PCP - General Nurse Practitioner Family 09/21/1911/12 documented as of this encounter
--- OUTSIDE RECORDS SUMMARY | 2024-03-31 01:34 | XMS_ITS | Encounter Summary ---
Author Organization [facility] Address [address] [place] [address]. [place], [place] [address] [place] [address] Care Team Providers Care Unclaimed Property Manager Name Role Phone Preethi Hall Primary Care Provider [phone] Encounter Details Date Type Department Care Team [...] on filedocumented in this encounter Care Teams Unclaimed Property Manager Relationship Specialty Start Date End Date Preethi Hall APNP [address] [place] [address] PCP - General Nurse Practitioner Family 09/21/1911/12 documented as of this encounter
--- OUTSIDE RECORDS SUMMARY | 2024-03-31 01:34 | XMS_ITS | Encounter Summary ---
Author Organization [facility] Address [address] [place] [address]. [place], [place] [address] [place] [address] Care Team Providers Care China Decorator Name Role Phone Preethi Hall Primary Care Provider [phone] Encounter Details Date Type Department Care Team [...] COVID-19? No / Unsure 05/13/2020 10:32 AM SENIOR JAVA ENGINEER documented as of this encounter Plan of Treatment Not on file documented as of this encounter Visit Diagnoses Not on filedocumented in this encounter Additional Health Concerns Infection Onset Date Last Indicated Resolved Time COVID-19 Rule Out 05/13/2020 05/13/2020 05/13/2020 12:25 PM SENIOR JAVA ENGINEER documented as of this encounter Care Teams China Decorator Relationship Specialty Start Date End Date Preethi Hall APNP [address] [address] PCP - General Nurse Practitioner Family 09/21/1911/12 documented as of this encounter
--- OUTSIDE RECORDS SUMMARY | 2024-03-31 01:34 | XMS_ITS | Encounter Summary ---
Author Organization [facility] Address [address] [place] [address]. [place], [place] [address] [place] [address] Care Team Providers Care Sap Specialist Name Role Phone Preethi Hall Primary Care Provider [phone] Reason for Visit * Reason Comments UTI frequency with urina tion but not going as much x 3 days, pain a few weeks ago in lower back (has had a kidney stone before) Encounter Details Date Type Department Care Team (Late st Contact Info) Description 07/04/2020 3:20 PM CDT Office Visit [facility] [address] [place] [address] Sergo Brand MD UTI (frequency [...] file Gets together: Not on file Attends yarsani service: Not on file Active member of [...] NEGATIVE U KETONES NEGATIVE NEGATIVE MG/DL Specific [place] (U) 1.020 1.001 - 1.035 BLOOD MODERATE [...] URINE CLEAN CATCH 07/04/2020 5:26 PM CDT [facility] SPECIAL REQUESTS NO SPECIAL REQUEST 07/04/2020 5:26 PM CDT [facility] CULTURE RESULT NO GROWTH 2 DAYS 07/06/2020 7:56 AM CDT [facility] URINE SPECIMEN OBTAINED BY CLEAN CATCH PROCEDURE / Unknown 07/04/2020 5:26 PM CDT 07/04/2020 5:34 PM CDT us Sergo Brand MD MICROBIOLOGY - GENERAL O RDERABLES Final Result [facility] [address] [place] [address], [place] [phone] [facility] [address] [place] [address], [place] [phone] * URINALYSIS AUTO DIP (07/04/2020 3:09 PM CDT) COLOR (U) DARK YELLOW MG-[address], [facility] TRANSPARENCY CLOUDY MG-[address], [place] GLUCOSE (U) NEGATIVE NEGATIVE MG/DL MG-[address], [place] BILIRUBIN (U) NEGATIVE NEGATIVE MG-[address], [place] KETONES MG/DL (U) NEGATIVE NEGATIVE MG/DL MG-[address], [facility] SPECIFIC GRAVITY (U) 1.020 1.001 - 1.035 MG-[address], [facility] BLOOD (U) MODERATE (2+ Hemolyzed, About 50 rbc/uL) NEGATIVE MG-[address], [facility] U PH 7.0 5.0 - 9.0 MG-[address], [place] PROTEIN (U) NEGATIVE NEGATIVE mg/dL MG-22296 [facility] [place] UROBILINOGEN 1.0 0.2 - 1.0 EU/dL = mg/dL MG-42991 [facility] [place] NITRITES NEGATIVE NEGATIVE MG/DL MG-67770 [facility] [place] LEUKOCYTES (U) NEGATIVE NEGATIVE MG-12 860 [facility] [place] URINE SPECIMEN OBTAINED BY CLEAN CATCH PROCEDURE / Unknown 07/04/2020 3:09 PM CDT us Sergo Brand MD URINE ORDERABLES Final R esult -11425 [facility], [place] [address] [place] [address], documented in this encounter Visit Diagnoses Diagnosis Kidney stone- Primary Calculus of kidney UTI symptoms documented in this encounter Care Teams Sap Specialist Relationship Specialty Start Date End Date Preethi Hall APNP [address] [facility] [address] [place] [address] PCP - General Nurse Practitioner Family 09/21/1911/12 documented as of this encounter
--- OUTSIDE RECORDS SUMMARY | 2024-03-31 01:34 | XMS_ITS | Encounter Summary ---
Author Organization [facility] Address [address] [place] [address]. [place] [address] [place] [address] Care Team Providers Care Overlock Operator Name Role Phone Preethi Hall Primary Care Provider [phone] Reason for Visit * Reason Comments Flank Pain Encounter Details Date Type Department Care Team (Latest Contact Info) Description 08/28/2021 8:08 AM CDT - 08/28/2021 9:17 AM CDT Hospital Encounter [facility] [address] [place] [address] Adama Negro PA [address] [place] [address] [id number] Flank Pain Discharge Disposition: Home or Self [...] sent through Care Everywhere. * Flank Pain (Kosovan) documented in this encounter Medications at Time [...] GURINDER Dean - 08/28/2021 8:44 AM CDT [place], [place] HISTORICAL INFORMATION Primary Care Doctor: JOSE Danielson Patient information was obtained primarily from the patient, nursing notes, History/Exam limitations: None Provider at Bedside Date/Time Event User Comments 08/28/21 0811 Provider at Bedside Assessing Patient ADAMA NEGRO CHIEF COMPLAINT Flank Pain HPI Yosi Pineda is a 36-year-old male who presents to the [facility] care for left sided flankpain, dysuria. [...] and validated. Please refer to the exit advertising copywriter discharge instructions for details surrounding the discharge [...] URINE CLEAN CATCH 08/28/2021 8:29 AM CDT [facility] COLOR (U) BROWN 08/29/2021 11:07 AM CDT [facility] TRANSPARENCY CLOUDY 08/29/2021 11:07 AM CDT [facility] SPECIFIC GRAVITY (U) >1.030(H) 1.001 - 1.030 08/29/2021 11:07 AM CDT [facility] U PH 5.5 5.0 - 9.0 08/29/2021 11:07 AM CDT [facility] LEUKOCYTES (U) NEGATIVE NEGATIVE 08/29/2021 11:07 AM CDT [facility] NITRITES NEGATIVE NEGATIVE 08/29/2021 11:07 AM CDT [facility] PROTEIN (U) 100(H) <30 MG/DL 08/29/2021 11:[address] [facility] URINE GLUCOSE NEGATIVE NEGATIVE MG/DL 08/29/2021 11:[address] [facility] KETONES MG/DL (U) TRACE(A) NEGATIVE MG/DL 08/29/2021 11:07 AM CDT [facility] UROBILINOGEN 0.2(A) NEGATIVE MG/DL 08/29/2021 11:[address] [facility] BILIRUBIN (U) SMALL(A) NEGATIVE MG/DL 08/29/2021 11:07 AM CDT [facility] BLOOD (U) LARGE(A) NEGATIVE 08/29/2021 11:07 AM CDT [facility] URINE SPECIMEN OBTAINED BY CLEAN CATCH PROCEDURE / Unknown 08/28/2021 8:29 AM CDT us Adama FAIRCHILD URINE ORDERABLES Final Res ult [place] [address] [place] [address], documented in this encounter Visit Diagnoses Diagnosis [...] RN) documented in this encounter Care Teams Overlock Operator Relationship Specialty Start Date End Date Preethi Hall APNP [address] [place] [address] PCP - General Nurse Practitioner Family 09/21/1911/12 documented as of this encounter
--- OUTSIDE RECORDS SUMMARY | 2024-03-31 01:34 | XMS_ITS | Encounter Summary ---
Author Organization [facility] Address [address] [place] [address]. [place], [place] [address] [place] [address] Care Team Providers Care Chemistry Lab Instructor Name Role Phone Preethi Hall Primary Care Provider [phone] Encounter Details Date Type Department Care Team [...] on filedocumented in this encounter Care Teams Chemistry Lab Instructor Relationship Specialty Start Date End Date Preethi Hall APNP [address] [place] [address] PCP - General Nurse Practitioner Family 09/21/19 8/06/05 documented as of this encounter
--- OUTSIDE RECORDS SUMMARY | 2024-03-31 01:34 | XMS_ITS | Encounter Summary ---
Author Organization [facility] Address [address] [place] [address]. [place], [place] [address] [place] [address] Care Team Providers Care Sheet Metal Former Name Role Phone Preethi Hall Primary Care Provider [phone] Encounter Details Date Type Department Care Team [...] on filedocumented in this encounter Care Teams Sheet Metal Former Relationship Specialty Start Date End Date Preethi Hall APNP [address] [place] [address] PCP - General Nurse Practitioner Family 09/21/19 8/06/05 documented as of this encounter
--- OUTSIDE RECORDS SUMMARY | 2024-03-31 01:34 | XMS_ITS | Encounter Summary ---
Author Organization [facility] Address [address] [place] [address]. [place], [place] [address] [place] [address] Care Team Providers Care Gastroenterology Nurse Practitioner Name Role Phone Preethi Hall Primary Care Provider [phone] Reason for Visit * Reason Comments Cough Since yesterday, non -productive Chest Pain Sharp pain to center of chest and in back since yesterday Earache Left x 2 weeks Encounter Details Date Type Department Care Team (Late st Contact Info) Description 05/13/2020 10:38 AM MANAGER MEDICAL - 05/13/2020 12:06 PM [facility]UST Emergency [facility] Emergency Room [address] [place] [address] Andre Herring PA [address] [place] [address] Cough (Since yesterday, non-productive); Chest Pain (Sharp [...] COVID-19? No / Unsure 05/13/2020 10:32 AM MANAGER MEDICAL documented as of this encounter Last Filed Vital Signs Vital Sign Reading Time Taken Comments Blood Pressure 140/77 05/13/2020 10:39 AM MANAGER MEDICAL Pulse 91 05/13/2020 10:39 AM MANAGER MEDICAL Temperature 36.6 ??C (97.8 ??F) 05/13/2020 10:[address] Respiratory Rate 18 05/13/2020 10:39 AM MANAGER MEDICAL Oxygen Saturation 99% 05/13/2020 10:39 AM MANAGER MEDICAL Inhaled Oxygen Concentration - - Weight 95.3 kg (210 lb) 05/13/2020 10:39 AM MANAGER MEDICAL Height 180.3 cm (5' 11 ) 05/13/2020 10:39 AM MANAGER MEDICAL Body Mass Index 29.29 05/13/2020 10:39 AM MANAGER MEDICAL documented in this encounter Discharge Instructions * Discharge Instructions* GURINDER Benson - 05/13/2020 11:46 AM MANAGER MEDICAL Use zaxe-oau-fbdvkun ibuprofen or Tylenol as directed for body aches. Make sure to drink adequate amount of fluids throughout the day. We will notify you of test results you may also review test results using Patient Feedt. Follow-up with your primary care provider in 5 to 7 days. Return emergency department symptoms worsen or new concerns. GER [facility] * Attachments The following attachments cannot be sent through Care Everywhere. * Cough, Runny Nose, and the Common Cold Discharge Instructions (Iranian) documented in this encounter Medications at Time of Discharge guaiFENesin ER 600 MG 12 hr tablet Take 1 tablet (600 mg total) by mouth 2 (two) times daily. 28 tablet 05/13/2020 07/04/2020 documented as of this encounter Progress Notes * GURINDER Wallis - 05/13/2020 12:06 PM CST S/w pt regarding negative results. No concerns. Reiterated return precautions [facility]ER [facility] documented in this encounter ED Notes * [...] encounter of 05/13/20 ECG 12 lead Narrative [facility] Test Date: 2020-05-13 Pat Name: JORDYN PINEDA Department: Room: [facility] Gender: Male Wool Supplier: : 1985 Requested By: ANDRE HERRING Order Number: [id number] Reading MD: Measurements Intervals [place] Rate: 85 P: 28 DE: 171 QRS: -11 QRSD: 97 T: 6 QT: 332 QTc: 396 Interpretive Statements SINUS RHYTHM MODERATE VOLTAGE CRITERIA FOR LVH, CONSIDER NORMAL VARIANT [MEETS CRITERIA IN ONE OF: R(aVL), S(V1), R(V5), R(V5/V6)+S(V1)] No previous ECG available for comparison LABORATORY STUDIES: No results found for this visit on 05/13/20. IMAGING STUDIES XR CHEST PA+LAT Final Result by User, [email or web address] (05/13 1150) TWO-VIEW CHEST RADIOGRAPH 05/13/2020: HISTORY: [...] Pharmacy: [id number] [place] [address] (Ph #: [phone]) Disposition: Discharge Follow-Up: JOSE Danielosn [address] [place] [address] Schedule an appointment as soon as possible for a visit in 1 week As needed GURINDER Benson 05/13/2020 GURINDER Benson 05/13/20 1153 Cosigned by Constanza Hartmann MD at 05/13/2020 12:43 PM MANAGER MEDICAL GER [facility] * Kristopher Campo RN - 05/13/2020 10:46 AM CSTSummary: Cough/Chest Pain/Ear Pain Pt to ED via POV with c/o cough since yesterday, non-productive, also states sharp pain to center of chest rates at 6/10 and in back since yesterday, and ear pain to the left x 2 weeks GER MEDICAL documented in this encounter Plan of Treatment Not on file documented as of this encounter Procedures Procedure Name Priority Date/Time Associated Diagnosis Comments CORONAVIRUS (COVID-19) ANTIGEN DIRECT OPTICAL STAT 05/13/2020 12:00 PM MANAGER MEDICAL XR CHEST PA+LAT STAT 05/13/2020 11:10 AM MANAGER MEDICAL ECG 12-LEAD Routine 05/13/2020 11:03 AM MANAGER MEDICAL documented in this encounter Results * CORONAVIRUS (COVID-19) ANTIGEN [RAPID IN HOUSE TEST] (05/13/2020 12:00 PM MANAGER MEDICAL) CORONAVIRUS ANTIGEN IA NEGATIVE NEGATIVE 05/13/2020 12:25 PM MANAGER MEDICAL [facility] Comment: NEGATIVE RESULTS DO NOT RULE [...] LABORATORIES. SPECIMEN TYPE NASAL 05/13/2020 12:06 PM [facility] FIRST TEST YES 05/13/2020 12:06 PM [facility] EMPLOYED IN HEALTHCARE NO 05/13/2020 12:06 PM [facility] SYMPTOMATIC DEFINED BY CDC YES 05/13/2020 12:06 PM [facility] DATE OF SYMPTOM ONSET 2020051205/13/2020 12:06 PM [facility] HOSPITALIZATION STATUS NO 05/13/2020 12:06 PM [facility] PATIENT IN ICU UNKNOWN 05/13/2020 12:08 PM [facility] RESIDENT OF [facility] NO 05/13/2020 12:06 PM MANAGER MEDICAL [facility] Specimen from nose (specimen) NASAL STRUCTURE / Unknown 05/13/2020 12:00 PM MANAGER MEDICAL Andre FAIRCHILD MICROBIOLOGY - GENERAL ORDE RABLES Final Result [facility] [address] [place] [address], * XR CHEST PA+LAT (05/13/2020 11:10 AM MANAGER MEDICAL) Anatomical Region Laterality Modality Chest Radiographic Nella ging 05/13/2020 11:4 5 AM MANAGER MEDICAL Impressions 05/13/2020 11:47 AM MANAGER MEDICAL IMPRESSION: No evidence of acute cardiopulmonary disease. Normal heart size and pulmonary vascularity. No consolidation or large pleural effusion. No pneumothorax. Slight thoracolumbar curve. Interpreted By: Josy Lin, 05/13/2020 11:45 AM Narrative 05/13/2020 11:47 AM MANAGER MEDICAL TWO-VIEW CHEST RADIOGRAPH 05/13/2020: HISTORY: Cough. Chest [...] * ECG 12 lead (05/13/2020 11:03 AM MANAGER MEDICAL) 05/13/2020 11:0 3 AM MANAGER MEDICAL Narrative [facility] - 05/14/2020 7:05 AM MANAGER MEDICAL ?[facility] ? Test Date: ?2020-05-13 Pat Name: ? JORDYN PINEDA ? Department: ? Room: ? [id number] Gender: ? Male ? Wool Supplier: ?? : ?1985 ? Requested By: ANDRE HERRING Order Number: [id number] ? Reading MD: ?? Dmitri Collins ? Measurements Intervals ?[place] ? Rate: ? 85 ? P: ?28 DE: ? 171 ?QRS: ?-11 QRSD: ? 97 ? T: ?6 QT: ? 332 ? QTc: ?396 ? Interpretive Statements SINUS RHYTHM MODERATE VOLTAGE CRITERIA FOR LVH, CONSIDER NORMAL VARIANT ??[MEETS CRITERIA IN ONE OF: R(aVL), S(V1), R(V5), R(V5/V6)+S(V1)] No previous ECG available for comparison [facility] Procedure Note Dmitri Collins MD - 05/14/2020 [facility] Test Date: 2020-05-13 Pat Name: JORDYN PINEDA Department: Room: [facility] Gender: Male Wool Supplier: : 1985 Requested By: ANDRE HERRING Order Number: [id number] Luigi MD: Dmitri Collins Measurements Intervals [place] Rate: 85 P: 28 DE: 171 QRS: -11 QRSD: 97 T: 6 QT: 332 QTc: 396 Interpretive Statements SINUS RHYTHM MODERATE VOLTAGE CRITERIA FOR LVH, CONSIDER NORMAL VARIANT [MEETSCRITERIA IN ONE OF: R(aVL), S(V1), R(V5), R(V5/V6)+S(V1)] No previous ECG available for comparison [facility]ER [facility] us Andre FAIRHCILD ECG ORDERABLES Final Resul t [facility] documented in this encounter Visit Diagnoses Diagnosis Viral URI with cough- Primary Acute upper respiratory infections of unspecified site Chest congestion Other symptoms involving respiratory system and chest documented in this encounter Additional Health Concerns Infection Onset Date Last Indicated Resolved Time COVID-19 Rule Out 05/13/2020 05/13/2020 05/13/2020 12:25 PM MANAGER MEDICAL documented as of this encounter Care Teams Gastroenterology Nurse Practitioner Relationship Specialty Start Date End Date Preethi Hall APNP [address] [place] [address] PCP - General Nurse Practitioner Family 09/21/1911/12 documented as of this encounter
--- OUTSIDE RECORDS SUMMARY | 2024-03-31 01:34 | XMS_ITS | Encounter Summary ---
Author Organization [facility] Address [address] [place] [address]. [place], [place] [address] [place] [address] Care Team Providers Care Vice President Of Development Name Role Phone Preethi Hall Primary Care Provider [phone] Encounter Details Date Type Department Care Team [...] on filedocumented in this encounter Care Teams Vice President Of Development Relationship Specialty Start Date End Date Preethi Hall APNP [address] [place], [place] [address] PCP - General Nurse Practitioner Family 09/21/19 8/06/05 documented as of this encounter
--- OUTSIDE RECORDS SUMMARY | 2024-03-31 01:34 | XMS_ITS | Encounter Summary ---
Author Organization [facility] Address [facility] [place], [place] [id number] [place] [id number] Care Team Providers Care Pyrotechnic Assembler Name Role Phone Preethi Hall Primary Care Provider [phone] Reason for Visit * Reason Comments Acute [...] Description 10/31/2020 4:00 PM CDT Office Visit [facility] Family [facility] Internal Medicine [address] [id number] Sergo Reed MD Acute Note [...] Gatherings with Friends and Family: ??? Attends Faith Services: ??? Active Member of Clubs or [...] tube documented in this encounter Care Teams Pyrotechnic Assembler Relationship Specialty Start Date End Date Preethi Hall APNP [address] [place] [address] PCP - General Nurse Practitioner Family 09/21/1911/12 documented as of this encounter
--- OUTSIDE RECORDS SUMMARY | 2024-03-31 01:35 | XMS_ITS | Clinical Summary ---
Author Organization [facility] Care Team Providers Care Patrol Mother Name Role Phone Unavailable Primary Care Provider [...]
--- OUTSIDE RECORDS SUMMARY | 2024-03-31 01:36 | XMS_ITS | Encounter Summary ---
Author Organization [facility] Address [address] [place] [address] Care Team Providers Care Aluminum Siding Mechanic Name Role Phone Unavailable Primary Care Provider Unavailabl e Encounter Details Date Type Department Care Team (Late st Contact Info) Description 07/07/2020 11:45 AM CDT Rapid Evaluation [place] [facility] Community Testing [facility] [address] [place], [place] [id number] Social History Tobacco Use Types Packs/Day Years [...]
--- OUTSIDE RECORDS SUMMARY | 2024-03-31 01:36 | XMS_ITS | Encounter Summary ---
Author Organization [facility] Address [address] [place] [address] Care Team Providers Care Professor Of Chemistry Name Role Phone Unavailable Primary Care Provider Unavailabl e Encounter Details Date Type Department Care Team (Late st Contact Info) Description 07/07/2020 Lab Requisition [facility] Community Testing [facility] [address] [place], [place] [id number] Riccardo Finney MD [address] [place] [address] [address] [place] [address] Social History Tobacco Use Types Packs/Day Years [...]
== END 2024-03-26 21:27 | disposition home or self-care (01) ==
PROVIDERS: Emergency Medicine; Emergency Provider Emergency Medicine
DX: J18.9 Pneumonia, unspecified organism (principal); R07.89 Other chest pain; J90 Pleural effusion, not elsewhere classified; Z20.822 Contact with and (suspected) exposure to COVID-19
CPT/HCPCS: 36415; 71046; 71275; 80053; 83690; 84484; 85025; 85610; 85730; 87637; 93005; 96361; 96365; 96367; 96375; 99284; J0696; J1885; J2270; J7030; Q9967

== ENCOUNTER 2024-04-03 09:09 | Inpatient (IN) | payer OTHER, SELFPAY ==
[2024-04-03] VITALS (16 sets, daily range): BP systolic 125–164; BP diastolic 86–95; PULSE 100–133; RESP 18–40; TEMP 37.1–38.3; O2SAT 98–100; BMI 26.2
--- NOTE | ~2024-04-03 | US_ITS ---
BILATERAL LOWER EXTREMITY VENOUS ULTRASOUND Ordering provider: Nasrin Thorne APRN History: . rule out DVT . Comparison: None. FINDINGS: RIGHT LOWER EXTREMITY VEINS: --COMMON FEMORAL: Patent and free of thrombus. Normal compressibility, phasic flow and augmentation. --PROXIMAL SUPERFICIAL FEMORAL: Patent and free of thrombus. Normal compressibility, phasic flow and augmentation. --DISTAL SUPERFICIAL FEMORAL: Patent and free of thrombus. Normal compressibility, phasic flow and au gmentation. --POPLITEAL: Patent and free of thrombus. Normal compressibility, phasic flow and augmentation. --POSTERIOR TIBIAL: Patent and free of thrombus. Normal compressibility, phasic flow and augmentation . LEFT LOWER EXTREMITY VEINS: --COMMON FEMORAL: Patent and free of thrombus. Normal compressibility, phasic flow and augmentation. --PROXIMAL SUPERFICIAL FEMORAL: Patent and free of thrombus. Normal compressibility, phasic flow and augmentation. --DISTAL SUPERFICIAL FEMORAL: Patent and free of thrombus. Normal compressibility, phasic flow and au gmentation. --POPLITEAL: Patent and free of thrombus. Normal compressibility, phasic flow and augmentation. --POSTERIOR TIBIAL: Patent and free of thrombus. Normal compressibility, phasic flow and augmentation . IMPRESSION: Negative bilateral lower extremity venous US. No deep vein thrombosis. Reviewed, dictated and finalized at location A. TY TRADER
--- NOTE | ~2024-04-03 | US_ITS ---
EXAMINATION: US thoracentesis DATE: 04/07/2024 14:22 INDICATION: pleural effusion TECHNIQUE: The procedure and its risks, benefits, and alternatives were discussed with the patient. P otential risks discussed included bleeding, infection, and pneumothorax. The patient understood the r isks and agreed to proceed. The skin was prepped and draped in sterile fashion. 1% lidocaine was used for local anesthesia. Under ultrasound guidance, a 5 Fr catheter with trochar was advanced into the right pleural effusion. Fluid was aspirated. The catheter was removed, and a dressing was applied. Th ere were no immediate complications. FINDINGS: Ultrasound images demonstrate a right pleural effusion and the catheter within the fluid. IMPRESSION: 1. Successful ultrasound-guided thoracentesis yielding 160 mL of yellow fluid. Reviewed, dictated and finalized at location A. ANICAL INTEGRITY ENGINEER
--- NOTE | ~2024-04-03 | XR_ITS ---
EXAMINATION: XR chest 1V portable DATE: 04/05/2024 10:07 INDICATION: Decreased breath sounds in right lower lobe. TECHNIQUE: A single frontal view of the chest was obtained. COMPARISON: Chest 2 views 04/03/2024, chest CT 04/03/2024 FINDINGS: There are small pleural effusions. There are mild airspace opacities in the mid and lower l feliz zones. No pneumothorax. There is enlargement of the cardiac silhouette. IMPRESSION: 1. Mild airspace opacities in the mid and lower lung zones, likely a combination of mild atelectasis and mild pulmonary edema. 2. Small pleural effusions. 3. Enlargement of the cardiac silhouette, likely secondary to pericardial effusion. Reviewed, dictated and finalized at location A. CH MANAGER TRAINEE IMPRESSION: 1. Mild airspace opacities in the mid and lower lung zones, likely a combinatio n of mild atelectasis and mild pulmonary edema. 2. Small pleural effusions. 3. Enlargement of the cardiac silhouette, likely secondary to pericardial effus ion.
--- NOTE | ~2024-04-03 | XR_ITS ---
EXAMINATION: [id number] DATE: 04/07/2024 14:02 INDICATION: Right pleural effusion status post thoracentesis. TECHNIQUE: Frontal and lateral views of the chest were obtained. COMPARISON: Chest 2 views 04/03/2024, chest single view 04/05/2024 FINDINGS: There are small pleural effusions. There are airspace opacities at the lung bases. No pneum othorax. There is enlargement of the cardiac silhouette. IMPRESSION: 1. Small pleural effusions. 2. Airspace opacities at the lung bases, consistent with atelectasis versus pneumonia. 3. Enlargement of the cardiac silhouette again seen, likely secondary to pericardial effusion. Reviewed, dictated and finalized at location A. P EXERCISE MANAGER IMPRESSION: 1. Small pleural effusions. 2. Airspace opacities at the lung bases, consistent with atelectasis versus pne umonia. 3. Enlargement of the cardiac silhouette again seen, likely secondary to perica rdial effusion.
--- NOTE | ~2024-04-03 | XR_ITS ---
EXAMINATION: XR chest 2V DATE: 04/03/2024 10:06 INDICATION: Shortness of breath. TECHNIQUE: Frontal and lateral views of the chest were obtained. COMPARISON: Chest 2 views 03/26/2024, chest CT 03/26/2024 FINDINGS: There are airspace opacities in the lower lung zones. There is a small right pleural effusi on. No pneumothorax. There is enlargement of the cardiac silhouette. IMPRESSION: 1. Airspace opacities in the lower lung zones, consistent with atelectasis versus pneumonia. 2. Small right pleural effusion. 3. Enlargement of the cardiac silhouette, which may be cardiomegaly and/or pericardial effusion. Reviewed, dictated and finalized at location A. SPRING WINDER AND OILER IMPRESSION: 1. Airspace opacities in the lower lung zones, consistent with atelectasis vers us pneumonia. 2. Small right pleural effusion. 3. Enlargement of the cardiac silhouette, which may be cardiomegaly and/or ciara cardial effusion.
--- NOTE | ~2024-04-03 | CT_ITS ---
EXAMINATION: CTA chest PE abdomen pel DATE: 04/03/2024 19:09 INDICATION: Hypoxia. Tachycardia. Shortness of breath. TECHNIQUE: Computed tomography angiography (CTA) of the chest, abdomen and pelvis was performed with 100 mL Omnipaque-350 intravenous contrast timed to evaluate the pulmonary arteries. Coronal maximum i ntensity projection 3D-reconstructions were created by the technologist. Automated exposure control a nd iterative reconstruction technique were employed. Exam dose: 916.84 mGy-cm total exam DLP. COMPARISON: None. FINDINGS: There is no evidence of pulmonary embolus. No thoracic aortic aneurysm or dissection. No hilar or mediastinal mass lesion or lymphadenopathy is detected. There is mild pericardial effusion. There is mild cardiomegaly. There is mild right pleural effusion. There is basilar posterior dependent right lower lobe atelectas is. There is discoid atelectasis in the middle lobe and lingula and the base of the left lower lobe a s well. No left pleural effusion. The airways appear patent. No obstructing bronchial lesion is identified. The gallbladder is contracted. No bile duct or pancreatic duct dilatation. No hepatic, splenic, pancreatic, and adrenal or renal space-occupying mass lesion is detected. The sp obi measures 14.6 cm sagittal length, consistent with splenomegaly. Multiple calcified splenic granu tony. No urinary tract calculus or hydroureteronephrosis. The urinary bladder and prostate gland and semina l vesicles are unremarkable. Normal caliber of the abdominal aorta. No intraperitoneal or retroperitoneal or pelvic mass lesion or adenopathy or ascites. Status post bilateral vasectomy. Normal appendix. No bowel obstruction, bowel wall thickening, pneumatosis or intraperitoneal free air . No suspicious osteolytic or osteoblastic lesions are noted. IMPRESSION: Mild right pleural effusion, right lower lobe compressive atelectasis Discoid atelectasis in bilateral lower lung williamson Small pericardial effusion Mild cardiomegaly Splenomegaly Normal appendix Reviewed, dictated and finalized at [facility]. Reviewed, dictated and finalized at [facility]. MAKER IMPRESSION: Mild right pleural effusion, right lower lobe compressive atelecta sis Discoid atelectasis in bilateral lower lung williamson Small pericardial effusion Mild cardiomegaly Splenomegaly Normal appendix
--- NOTE | 2024-04-03 09:16 | ECG_ITS ---
Test Date: 2024-04-03 09:19:57 Measurements Intervals [place] Rate: 130 P: 25 TX: 166 QRS: 0 QRSD: 88 T: 47 QT: 383 QTc: 564 Interpretive Statements SINUS TACHYCARDIA MINIMAL VOLTAGE CRITERIA FOR LVH, CONSIDER NORMAL VARIANT [MEETS CRITERIA IN ONE OF: R(aVL), S(V1), R(V5), R(V5/V6)+S(V1)] nonespecific T changes Compared to ECG 03/26/2024 16:28:35 Sinus rhythm no longer present T-wave abnormality still present Electronically Signed On 04-03-2024 10:14:59 CORPORATE DIRECTOR OF PHARMACY by Daniel Hou M.D.
--- NOTE | 2024-04-03 10:28 | ED_ITS ---
HPI - SOB/Dyspnea General Chief Complaint: Shortness of Breath/Dyspnea Stated Complaint: sob Time Seen by Provider: 04/03/24 10:07 History of Present Illness HPI Narrative: 39-year-old male with no significant pertinent past medical history presenting to the emergency department for repeat evaluation of continued difficulty in breathing. He was just seen on the of this month and diagnosed with pneumonia. He was treated with 2 antibiotics including doxycycline and cefpodoxime. He has completed the entire course and still not having any improvement in his symptoms which include a nonproductive cough, difficulty breathing, tightness in his chest, occasional chest pains, weakness, loss of appetite and nauseousness. He states prior to this recent course of antibiotics he was also treated with amoxicillin when he was diagnosed with pneumonia at the [place] earlier this month. Patient states he has been having a profound weight loss since December of this year in addition to his pneumonia type symptoms. Denies any cardiac history, heart failure history, cancer history to his knowledge. Previous these last few months he has otherwise been in his normal state of health, no recent injuries or illnesses otherwise. Related Data Home Medications ?Medication ?Instructions ?Recorded ?Confirmed ?Last Taken ?Type No Home Medications 04/03/24 04/03/24 Unknown History Allergies Allergy/AdvReac Type Severity Reaction Status Date / Time shellfish derived Allergy Intermediate Hives Verified 04/03/24 16:25 Review of Systems 2 Review of Systems: As reviewed above in HPI [facility] Social History Social History Smoking status: Never smoker Alcohol intake: never Substance use: never Do You Feel Safe in your Home?: Yes Lack of Transportation: No Lack of Food: Never True Current Housing: I Have Housing Concerned About Future Housing: No Difficulty Paying Gas/Electric Bills: No Difficulty Paying for Meds: No Currently Unemployed: No Education: High School Diploma/GED Difficulty w/ Childcare or Family Care: No Spiritual care concerns: No Exam 2 Narrative: GENERAL: Ill-appearing, uncomfortable, not in any acute distress able to answer questions appropriately HEAD: [Normocephalic, atraumatic.] EYES: [PERRLA and EOMI.] ENT: Nares clear, no rhinorrhea or epistaxis. Mucous membranes moist. NECK: Supple. CHEST: Coarse breath sounds especially in the upper lungs, no tachypnea or accessory muscle use, no wheezing HEART: Tachycardic rate with regular rhythm. No murmur heard. [Normal peripheral pulses.] ABDOMEN: [Soft, nondistended], [nontender], [No rigidity or guarding] EXTREMITIES: Normal range of motion. No peripheral edema identified SKIN: Warm, dry, no rash. NEURO: [No focal deficits]. Alert and oriented [x3.] PSYCH: [Normal mood and affect.] Course Vital Signs Vital signs: Vital Signs Temperature 37.1 C 04/03/24 09:11 Pulse Rate 133 H 04/03/24 09:11 Respiratory Rate 19 04/03/24 09:11 Blood Pressure 147/87 H 04/03/24 09:11 Pulse Oximetry 99 04/03/24 09:11 Oxygen Delivery Room Air 04/03/24 09:11 Temperature 37.1 C 04/03/24 19:30 Pulse Rate 112 H 04/03/24 19:30 Respiratory Rate 18 04/03/24 19:30 Blood Pressure 135/86 04/03/24 19:30 Pulse Oximetry 100 04/03/24 21:12 Oxygen Delivery Nasal Cannula 04/03/24 21:12 Oxygen Flow Rate 2 04/03/24 21:12 MDM - SOB/Dyspnea MDM Narrative Medical decision making narrative: 39-year-old male presenting with continued pneumonia type symptoms including nonproductive cough, subjective fevers, chest tightness, difficulty breathing, occasional chest pains with pleurisy, nausea and lack of appetite. He has completed a total of 3 antibiotics this past month for pneumonia without any relief of his symptoms. He is ill-appearing but not any acute distress he is tachycardia with rate of 130s but afebrile, no hypoxia. He is saturating well on room air, conversing without any dyspnea. He does have coarse breath sounds especially in the upper airways. Blood pressure within normal limits. Considerations presently are for a resistant strain of pneumonia, healthcare associated pneumonia given his multiple visits to the [place] in [place], pericarditis, malignancy. Less likely ACS or cardiac disease nature. I did review the EMR and he had negative CT angiography of his thorax just 1 week prior which makes me more reassured that this is not a pulmonary embolism. Workup ordered with x- rays, EKG, cardiac workup CBC, CMP, troponin, treatment empirically with lactated Ringer's 1st tachycardia as well as vancomycin cefepime for broader healthcare associated coverage of pneumonia. COVID fluid RSV swabs obtained. Workup shows no leukocytosis or significant anemia worse than his baseline. Some elevated platelets which could be seen infection. Electrolytes within normal limits, normal renal and hepatic function panel. Negative lactic acid. Mildly elevated BNP. Urinalysis without signs of infection. COVID fluid RSV swabs negative. Chest x-ray shows airspace opacities in the lower lung zones consistent with pneumonia. Right small pleural effusion and enlargement of cardiac silhouette but seems pretty consistent with his previous x-ray last week without any acute changes. Patient was frequent re-evaluated and had persistent tachycardia despite fluids and antibiotics including vancomycin and cefepime. Informed patient that he will likely need admission to the hospital at this time and he agreed to stay. Discussed the case with the hospitalist currently being covered by the midlevel provider Eula. After we went over patient's imaging studies, clinical assessment and plan of care he was accepted to admission to a telemetry monitored bed for continued treatment of his suspected pneumonia. Medical Records Attestation: I reviewed the patient's medical records. Lab Data Attestation: I reviewed the patient's lab results. 04/03/24 10:37 04/03/24 15:03 Labs: Lab Results 04/03/24 04/03/24 Range/Units 10:37 11:38 WBC 4.5 (4.5-10.0) K/mm3 RBC 4.27 L (4.6-6.20) M/mm3 Hgb 11.2 L (14.0-18.0) g/dL Hct 33.8 L (42.0-52.0) % MCV 79.2 L (80-100) fl MCH 26.2 (26-34) pg MCHC 33.1 (32-36) g/dl RDW 14.1 (11.5-14.5) % Plt Count 425 H (150-375) k/mm3 MPV 9.6 (7.4-10.4) fl Immature Gran % (Auto) 0.9 H (0-0.5) % Neut % (Auto) 76.5 H (45.5-73.1) % Lymph % (Auto) 14.2 L (18.3-44.2) % Gove % (Auto) 5.3 (2.6-8.5) % Eos % (Auto) 2.9 (0-4.4) % Baso % (Auto) 0.2 (0.2-1.2) % Lymph # (Auto) 0.64 L (0.9-3.2) K/mm3 Gove # (Auto) 0.2 (0.1-0.6) K/mm3 Eos # (Auto) 0.1 (0-0.3) K/mm3 Baso # (Auto) 0.0 (0.0-0.1) K/mm3 Abs Immat Gran (auto) 0.04 H (0.00-0.031) K/mm3 Absolute Neuts (auto) 3.5 (1.3-6.7) K/mm3 Absolute Nucleated RBC 0.000 (0.0-0.012) K/mm3 Nucleated RBC % 0.0 (0.0-0.2) % Sodium 136 L (137-145) mmol/L Potassium 4.1 (3.4-5.0) mmol/L Chloride 103 (98-107) mmol/L Carbon Dioxide 26 (22-30) mmol/L Anion Gap 7 (4-12) mmol/L BUN 10 (9-20) mg/dL Creatinine 0.70 (0.7-1.3) mg/dL Estim Creat Clear Calc 130 ml/min Estimated GFR > 60 (59 - ) Glucose 105 (65-110) mg/dL Calcium 9.1 (8.4-10.2) mg/dL Total Bilirubin 0.9 (0.2-1.3) mg/dL AST 64 H (17-59) U/L ALT 50 (6-50) U/L Alkaline Phosphatase 147 H (38-126) U/L NT-Pro-B Natriuret Pep 482 H (19.9-100) pg/mL Total Protein 9.0 H (6.3-8.2) g/dL Albumin 3.7 (3.5-5.1) g/dL Nasal MRSA (PCR) Not detected (NOT DETECTE) Influenza A (RT-PCR) Negative (Negative) Influenza B (RT-PCR) Negative (Negative) SARS-CoV-2 RNA (RT-PCR) Negative (Negative) Imaging Data Attestation: I personally reviewed and interpreted this imaging study as follows: My impression: Impressions Chest X-Ray 04/03/24 10:12 IMPRESSION: 1. Airspace opacities in the lower lung zones, consistent with atelectasis versus pneumonia. 2. Small right pleural effusion. 3. Enlargement of the cardiac silhouette, which may be cardiomegaly and/or pericardial effusion. Critical Care Time Critical Care Time Critical Care Time: Yes Total Critical Care Time: 35 Discharge Plan Discharge Clinical Impression: Community acquired pneumonia, Breath shortness, Tachycardia Patient Disposition: Still a Patient Condition: Stable
[2024-04-03] MEDS: LACTATED RINGERS 1,000 ML 999 ML IV CONT ×2 (10:40→15:18)
[2024-04-03 10:44] LABS: Basophils Percent Auto 0.2 % (0.2-1.2); Eosinophils Absolute Auto 0.1 K/mm3 (0-0.3); Eosinophils Percent Auto 2.9 % (0-4.4); Hematocrit 33.8 % (42.0-52.0); Hemoglobin 11.2 g/dL (14.0-18.0); Immature Granulocyte Absolute 0.04 K/mm3 (0.00-0.031); Immature Granulocyte Percent A 0.9 % (0-0.5); Lymphocytes Absolute Auto 0.64 K/mm3 (0.9-3.2); Lymphocytes Percent Auto 14.2 % (18.3-44.2); Mean Corpuscular HGB Conc 33.1 g/dl (32-36); Mean Corpuscular Hemoglobin 26.2 pg (26-34); Mean Corpuscular Volume 79.2 fl (80-100); Mean Platelet Volume 9.6 fl (7.4-10.4); Monocytes Absolute Auto 0.2 K/mm3 (0.1-0.6); Monocytes Percent Auto 5.3 % (2.6-8.5); Neutrophils Absolute Auto 3.5 K/mm3 (1.3-6.7); Neutrophils Percent Auto 76.5 % (45.5-73.1); Platelet Count Result 425 k/mm3 (150-375); Red Blood Count 4.27 M/mm3 (4.6-6.20); Red Cell Distribution Width 14.1 % (11.5-14.5); White Blood Count 4.5 K/mm3 (4.5-10.0)
[2024-04-03] MEDS: CEFEPIME 2 GM/NS 50 ML 2 GM/50 ML BAG IVPB (10:45)
[2024-04-03 10:55] LABS: Alanine Aminotransferase 50 U/L (6-50); Albumin Level 3.7 g/dL (3.5-5.1); Alkaline Phosphatase 147 U/L (38-126); Anion Gap 7 mmol/L (4-12); Aspartate Amino Transferase 64 U/L (17-59); Bilirubin,Total 0.9 mg/dL (0.2-1.3); Blood Urea Nitrogen 10 mg/dL (9-20); Calcium 9.1 mg/dL (8.4-10.2); Carbon Dioxide 26 mmol/L (22-30); Chloride 103 mmol/L (98-107); Estimated CRCL calculation 130 ml/min; Estimated Glomerular Filt Rate > 60; Glucose 105 mg/dL (65-110); Potassium 4.1 mmol/L (3.4-5.0); Sodium 136 mmol/L (137-145)
[2024-04-03 11:04] LABS: NT Pro B Type Natriuretic Pept 482 pg/mL (19.9-100)
[2024-04-03 11:19] LABS: Influenza A QL RT-PCR Negative (Negative); Influenza B QL RT-PCR Negative (Negative); SARS-CoV-2 RNA PCR Negative (Negative)
[2024-04-03] MEDS: VANCOMYCIN 1,250 MG/NS 250 ML 1,250 MG/250 ML BAG 166.67 MG IVPB (12:20)
[2024-04-03 13:11] LABS: MRSA (PCR) NOT DETECTED (NOT DETECTE)
[2024-04-03] MEDS: VANCOMYCIN 1,000 MG/NS 250 ML 1,000 MG/250 ML BAG 250 MG IVPB (14:00)
--- NOTE | 2024-04-03 14:24 | P.HP_ITS ---
H&P: HPI History of Present Illness Date/Time: 04/03/24 14:24 Chief Complaint: Shortness of breath and weakness Narrative: 39-year-old male with no significant pertinent past medical history except pneumonia and lost the past month presenting to the emergency department for repeat evaluation of continued difficulty in breathing. Patient states that both times he was placed on antibiotics and took them directed on completed the course. He states that his breathing on got progressively worse, yesterday he started vomiting this morning he was so short of breath and he came to the emergency room. On admission patient had a temperature of 101.0?, tachypnea and hypoxia he was placed on 2 L nasal cannula. Due to the severity of his shortness of breath has tachycardia PE protocol was done that showed no PE. CT did show mild right pleural effusion, right upper lobe impression atelectasis, discord atelectasis in bilateral lower lung williamson, small pericardial effusion, mild cardiomegaly an splenomegaly. At the beginning the month went to the [place] treated with amoxicillin when he was diagnosed with pneumonia. Due to patient not improving he came to [place] on the of this month with persistent pneumonia. He was treated with 2 antibiotics including doxycycline and cefpodoxime. He has completed the entire course and still not having any improvement in his symptoms which include a nonproductive cough, difficulty breathing, tightness in his chest, occasional chest pains, weakness, loss of appetite and nauseousness. Review of Systems Review of Systems: 12 systems were reviewed and are negativ e except for as per HPI. [facility] Past Medical History Medical History (Updated 04/03/24 @ 23:34 by Eula Johnson, JOSSY) Patient denies significant medical history Social History Social History Smoking status: Never smoker Alcohol intake: never Substance use: never Do You Feel Safe in your Home?: Yes Lack of Transportation: No Lack of Food: Never True Current Housing: I Have Housing Concerned About Future Housing: No Difficulty Paying Gas/Electric Bills: No Difficulty Paying for Meds: No Currently Unemployed: No Education: High School Diploma/GED Difficulty w/ Childcare or Family Care: No Spiritual care concerns: No Meds Home Medications and Allergies Home Medications ?Medication ?Instructions ?Recorded ?Confirmed ?Type No Home Medications 04/03/24 04/03/24 History Allergies Allergy/AdvReac Type Severity Reaction Status Date / Time shellfish derived Allergy Intermediate Hives Verified 04/03/24 16:25 Vital Signs Vital Signs - 24 hr 04/03/24 09:11 04/03/24 10:16 04/03/24 10:30 Temperature 98.7 F Pulse Rate 133 H 118 H Respiratory Rate 19 30 H Blood Pressure 147/87 H 142/88 H Pulse Oximetry 99 100 Oxygen Delivery Room Air Room Air 04/03/24 10:31 04/03/24 10:46 04/03/24 11:01 Temperature Pulse Rate 123 H 125 H 115 H Respiratory Rate 31 H 28 H 24 H Blood Pressure 143/89 H 137/94 H 139/93 H Pulse Oximetry 100 99 99 Oxygen Delivery Exam Narrative: General: Ill-appearing, diaphoretic HEENT: normocephalic, atraumatic. Mucous membranes moist. EOMI, PERRLA, bilateral sclera anicteric, no conjunctival injection. Neck supple without JVD, lymphadenopathy, or bruit. Respiratory: Diminished to ascultation bilaterally. No rales/rhonic/wheezes. Cardiovascular: Regular rate and rhythm, normal S1-S2 upon ascultation. No murmurs, rubs, or clicks. PMI is nondisplaced, capillary refill less than 3 second. Abdomen: Soft, round, no pulsatile masses, nondistended and nontender. No rebound, no guarding. No CVA tenderness, no hepatosplenomegaly. Bowel sounds present to all four quadrants. No high pitch or tinkling sounds, resonant to percussion. Extremities: No cyanosis, clubbing, or edema present. Pulses are palpable 2/2. Active ROM to all four extremities. Neuro: Alert and orientated x 4. PERRLA. Cranial nerves 2-12 intact without focal deficit. Skin: Warm, dry, and intact, without rash, erythema, or lesion. Psych: pleasant, cooperative, normal speech, normal affect, no hallucinations, no dysarthia H&P: Results Labs Labs: Short CBC 04/03/24 Range/Units 10:37 WBC 4.5 (4.5-10.0) K/mm3 Hgb 11.2 L (14.0-18.0) g/dL Hct 33.8 L (42.0-52.0) % Plt Count 425 H (150-375) k/mm3 BMP 04/03/24 10:37 Sodium 136 L Potassium 4.1 Chloride 103 Carbon Dioxide 26 BUN 10 Creatinine 0.70 Glucose 105 Calcium 9.1 Liver Function 04/03/24 Range/Units 10:37 Total Bilirubin 0.9 (0.2-1.3) mg/dL AST 64 H (17-59) U/L ALT 50 (6-50) U/L Alkaline Phosphatase 147 H (38-126) U/L Albumin 3.7 (3.5-5.1) g/dL ECG Interpretation: 2024-04-03 09:19:57 Measurements Intervals [place] Rate: 130 P: 25 [place]: 166 QRS: 0 QRSD: 88 T: 47 QT: 383 QTc: 564 Interpretive Statements SINUS TACHYCARDIA MINIMAL VOLTAGE CRITERIA FOR LVH, CONSIDER NORMAL VARIANT [MEETS CRITERIA IN ONE OF: R(aVL), S(V1), R(V5), R(V5/V6)+S(V1)] nonespecific T changes Compared to ECG 03/26/2024 16:28:35 Sinus rhythm no longer present T-wave abnormality still present Electronically Signed On 04-03-2024 10:14:59 SKILLED NURSING FACILITIES PROFESSIONAL by Daniel Hou M.D Assessment and Plan Assessment and plan (1) Pneumonia: Code(s): J18.9 - Pneumonia, unspecified organism Status: Inactive Assessment and Plan: Failed outpatient antibiotics x2, amoxicillin, doxycycline and cefpodoxime On IV cefepime and vancomycin CT shows Mild right pleural effusion, right lower lobe compressive atelectasis Discoid atelectasis in bilateral lower lung williamson (2) Pleural effusion on right: Code(s): J90 - Pleural effusion, not elsewhere classified Status: Inactive Assessment and Plan: Will see if patient's respiratory status improved with change of antibiotics if not, he may from thoracentesis Lovenox on hold until evaluated (3) Anemia: Code(s): D64.9 - Anemia, unspecified Status: Acute Assessment and Plan: Iron panel pending Transfuse for hemoglobin less than 7 Daily CBC (4) Cardiomegaly: Code(s): I51.7 - Cardiomegaly Status: Acute Assessment and Plan: Echocardiogram pending (5) Tachycardia: Code(s): R00.0 - Tachycardia, unspecified Status: Acute Assessment and Plan: Not resolved with fluid bolus D-dimer 6.06 PE protocol with no evidence of PE (6) Fever: Code(s): R50.9 - Fever, unspecified Status: Acute Assessment and Plan: 101.0 CT chest abdomen and pelvis Blood cultures x2 UA negative for infection CRP 6.3 Lactic acid 1.2 Legionella pending (7) Elevated liver enzymes: Code(s): R74.8 - Abnormal levels of other serum enzymes Status: Acute Assessment and Plan: CMP daily (8) Splenomegaly: Code(s): R16.1 - Splenomegaly, not elsewhere classified Status: Acute Assessment and Plan: Could be due to infectious process versus other (9) Pericardial effusion: Code(s): I31.39 - Other pericardial effusion (noninflammatory) Status: Acute Assessment and Plan: Cardiology consulted pending recommendations Echo pending Quality VTE Prophylaxis VTE prophylaxis: mechanical ordered If No VTE Prophylaxis Answer both mechanical and pharmacologic: Reason no pharmacologic proph: medical contraindication Hospitalist MIPS Advance Care Plan I have confirmed that the patient's Advanced Care Plan is present, code status is documented, or surrogate decision maker is listed in patient medical record.: Yes Medication Reconciliation I have utilized all available resources to obtain, update and review the patients current medications (includes all prescriptions, OTC, herbals, cannabis, and nutritional supplements).: Yes
[2024-04-03 15:20] LABS: Alanine Aminotransferase 39 U/L (6-50); Albumin Level 3.3 g/dL (3.5-5.1); Alkaline Phosphatase 118 U/L (38-126); Anion Gap 7 mmol/L (4-12); Aspartate Amino Transferase 43 U/L (17-59); Bilirubin,Total 0.8 mg/dL (0.2-1.3); Blood Urea Nitrogen 9 mg/dL (9-20); Calcium 8.5 mg/dL (8.4-10.2); Carbon Dioxide 24 mmol/L (22-30); Chloride 104 mmol/L (98-107); Estimated CRCL calculation 130 ml/min; Estimated Glomerular Filt Rate > 60; Glucose 90 mg/dL (65-110); Sodium 135 mmol/L (137-145)
[2024-04-03 15:34] LABS: D Dimer 6.06 ug/mL (<0.48)
[2024-04-03 15:37] LABS: Iron 27 ug/dL (49-181)
[2024-04-03 15:46] LABS: Percent Iron Saturation 12 % (20-50)
[2024-04-03 16:03] LABS: Lactic Acid Reflex 1.2 mmol/L (0.7-2.0)
[2024-04-03 16:26] LABS: Folic Acid 17.3 ng/mL (2.76->20)
[2024-04-03 16:35] LABS: CRP 6.3 mg/dL (<1.0)
[2024-04-03] MEDS: LACTATED RINGERS 1,000 ML 125 ML IV CONT (16:54)
[2024-04-03] MEDS: ACETAMINOPHEN 325 MG TABLET 650 MG PO (16:56)
[2024-04-03 17:42] LABS: Add Urine Microscopic? NO; Appearance Urine Clear (Clear); Bilirubin Urine Negative (Negative); Blood Urine Negative (Negative); Color Urine Yellow (Yellow); Glucose Urine UA Negative (Negative); Ketones Urine 1+ mg/dL (Negative); Leukocyte Esterase Ur Negative LEU/UL (Negative); Nitrate Urine Negative (Negative); Protein Urine Negative (Negative); Specific Grav Ur 1.007 (1.001-1.035); Urobilinogen Urine 0.2 mg/dL (<2.0)
[2024-04-04] VITALS (20 sets, daily range): BP systolic 110–141; BP diastolic 52–89; PULSE 76–142; RESP 18–20; TEMP 36.4–39.4; O2SAT 96–100; BMI 26.2
--- NOTE | 2024-04-04 | ECHO_ITS ---
Patient Info Name: Yosi Pineda Age: 39 years : 1985 Gender: Male Ht: 71 in Wt: 187 lbs BSA: 2.07 m2 HR: 95 bpm BP: 130 / 89 mmHg Technical Quality: Fair Exam Date: 04/04/2024 12:31 PM Exam Location: [facility] Patient Status: Inpatient Admit Date: 04/03/2024 Staff Ordering Physician: Eula Johnosn APRN Fire Manager: Fanny Eller RDCS Attending Provider: Nasrin Thorne APRN Referring Physician: Alex GUERRA; Exam Type: CA echo doppler color flow Study Info Indications - pericardial effusion - Cardiomegaly Complete two-dimensional, color flow and Doppler transthoracic echocardiogram is performed. Summary 1. Complete two-dimensional, color flow and Doppler transthoracic echocardiogram is performed. 2. There is a moderate size circumferential pericardial effusion with evidence of early tamponade physiology. 3. Technically difficult study with limited views. Left Ventricle The left ventricle is normal in size and systolic function. There is concentric left ventricular remodeling. The left ventricular ejection fraction is visually estimated to be 50-55%. Right Ventricle The right ventricle is normal size with normal systolic function. Left Atria The left atrium is normal size. Right Atria The right atrium is normal size. Atrial Septum The atrial septum is not well visualized. Aortic Valve The aortic valve is trileaflet and opens well. There is no aortic regurgitation. Pulmonic Valve The pulmonic valve is not well visualized. There is no color Doppler evidence of pulmonic valve regurgitation. Mitral Valve The mitral valve is normal. There is no mitral regurgitation. Tricuspid Valve The tricuspid valve is grossly normal. There is trace tricuspid regurgitation. Pericardium/Pleural There is a moderate size circumferential pericardial effusion with evidence of early tamponade physiology. Inferior Vena Cava Normal inferior vena cava with <50% collapse upon inspiration consistent with elevated right atrial pressure, 8 mmHg. Aorta The aortic root at the level of the sinus of Valsalva measures 3.4 cm in diameter. Left Ventricular Outflow Tract Name Value Normal LVOT 2D LVOT Diameter 2.2 cm LVOT Doppler LVOT Peak Gradient 3 mmHg LVOT Mean Gradient 3 mmHg LVOT VTI 15 cm LVOT VTI/AV VTI Ratio 1.0 LVOT Stroke Volume 59 ml LVOT CO 7.3 l/min LVOT CI 3.5 l/min/m2 Pulmonic Valve Name Value Normal RVOT Doppler RVOT Peak Gradient 3 mmHg PV Doppler PV Peak Gradient 3 mmHg Mitral Valve Name Value Normal MV Doppler MV Decel [place] 1,407 cm/s2 MV PHT 22 ms MV Area (PHT) 9.8 cm2 4.0-5.0 MV Diastolic Function MV E Peak Velocity 109 cm/s MV A Peak Velocity 1 cm/s MV E/A 163.3 MV Decel Time 78 ms MV Annular TDI MV E/e' (Septal) 6.3 <=8.0 MV E/e' (Lateral) 8.8 <=8.0 MV E/e' (Average) 7.5 Tricuspid Valve Name Value Normal Estimated PAP/RSVP RA Pressure 8 mmHg <=5 Aorta Name Value Normal Ascending Aorta Ao Root Diameter (MM) 3.8 cm Ao Root Diam Index (MM) 1.8 cm/m2 Aortic Valve Name Value Normal AV Doppler AV Peak Velocity 110 cm/s AV Peak Gradient 3 mmHg AV Mean Gradient 2 mmHg AV VTI 15 cm AV Area (Cont Eq VTI) 4.0 cm2 >=3.0 AV Area (Cont Eq Francis) 4.2 cm2 AV Regurgitation 2D LVOT Area 4.0 cm2 Ventricles Name Value Normal LV Dimensions 2D/MM IVS Diastolic Thickness (2D) 1.7 cm 0.6-1.0 LVID Diastole (2D) 3.1 cm 4.2-5.8 LVIW Diastolic Thickness (2D) 1.6 cm 0.6-1.0 LVID Systole (2D) 2.3 cm 2.5-4.0 LVOT Diameter 2.2 cm LV Mass (2D Cubed) 188.95 g 88.00-224.00 LV Mass Index (2D Cubed) 91 g/m2 49-115 Relative Wall Thickness (2D) 1.04 LV Fractional Shortening/Ejection Fraction 2D/MM LV Fractional Shortening (2D) 25 % 25-43 LV EF (2D Teicholz) 51 % 52-72 Atria Name Value Normal LA Dimensions LA Dimension (MM) 2.2 cm 3.0-4.1 LA Volume (4C A-L) 24 ml LA Volume (BP A-L) 36 ml RA Dimensions RA Area (4C) 12.9 cm2 <=18.0 Report Signatures
[2024-04-04] MEDS: VANCOMYCIN 1,500 MG/NS 500 ML 1,500 MG/500 ML BAG 250 MG IVPB (01:05)
[2024-04-04] MEDS: guaiFENesin/DEXTROMETHORPHAN 10 ML UDC 5 ML PO (01:10)
[2024-04-04] MEDS: LACTATED RINGERS 1,000 ML 125 ML IV CONT (03:03)
[2024-04-04 06:05] LABS: Eosinophils Absolute Auto 0.2 K/mm3 (0-0.3); Eosinophils Percent Auto 3.8 % (0-4.4); Hematocrit 28.2 % (42.0-52.0); Hemoglobin 9.2 g/dL (14.0-18.0); Immature Granulocyte Absolute 0.02 K/mm3 (0.00-0.031); Immature Granulocyte Percent A 0.5 % (0-0.5); Lymphocytes Absolute Auto 0.79 K/mm3 (0.9-3.2); Lymphocytes Percent Auto 18.8 % (18.3-44.2); Mean Corpuscular HGB Conc 32.6 g/dl (32-36); Mean Corpuscular Volume 79.7 fl (80-100); Mean Platelet Volume 10.1 fl (7.4-10.4); Monocytes Absolute Auto 0.4 K/mm3 (0.1-0.6); Monocytes Percent Auto 8.8 % (2.6-8.5); Neutrophils Absolute Auto 2.9 K/mm3 (1.3-6.7); Neutrophils Percent Auto 68.1 % (45.5-73.1); Platelet Count Result 344 k/mm3 (150-375); Red Blood Count 3.54 M/mm3 (4.6-6.20); Red Cell Distribution Width 14.2 % (11.5-14.5); White Blood Count 4.2 K/mm3 (4.5-10.0)
[2024-04-04 06:17] LABS: Estimated CRCL calculation 150 ml/min; Estimated Glomerular Filt Rate > 60
[2024-04-04] MEDS: HYDROmorphone HCL INJ (*CRX) 1 MG/ML SYR IV PUSH (06:22)
--- NOTE | 2024-04-04 07:25 | P.PNIM_ITS ---
Progress Note: A&P Assessment and Plan (1) Acute hypoxic respiratory failure: Code(s): J96.01 - Acute respiratory failure with hypoxia Status: Acute Assessment and Plan: * likely secondary to prolonged pneumonia * currently on 2 L nasal cannula * continue to wean O2 for sat greater than 92% * respiratory panel was negative for influenza a and B COVID * will check RSV * continue DuoNeb q.6 hour * blood cultures obtained * obtain an echocardiogram * D-dimer 6.06 (2) Pneumonia: Code(s): J18.9 - Pneumonia, unspecified organism Status: Inactive Assessment and Plan: patient was diagnosed with pneumonia back on this month and was treated with doxycycline and Cefpodoxime in which he completed the course his symptoms did clear. * Chest x-ray showing airspace opacities in the lower lung zones, small right pleural effusion, cardiomegaly * chest/abdomen/ pelvis CTA showed mild right pleural effusion right lobe compressive atelectasis, small pericardial effusion, cardiomegaly, splenomegaly * white blood cell 4.2 * blood cultures obtained and are pending * patient was started on cefepime and vancomycin * MRSA was negative, vancomycin discontinued * will start doxycycline for atypical coverage considering prolonged QTC * Repeat EKG showing QTc 410 * respiratory panel was negative for influenza a, influenza B, RSV, COVID. * Urine Legionella pending * Will add mycoplasma and urine strep * Start Mucinex * Sputum culture ordered * Pep therapy * continue DuoNebs q6h * wean O2 for sat greater than 92% currently on 2 L nasal cannula (3) Pleural effusion on right: Code(s): J90 - Pleural effusion, not elsewhere classified Status: Inactive Assessment and Plan: * CTA showing right small pleural effusion (4) Anemia: Code(s): D64.9 - Anemia, unspecified Status: Acute Assessment and Plan: * hemoglobin 9.2, MCV 79.7 * iron 27 TIBC 223, ferritin 682 * vitamin B12 580, Folate 17.3 (5) Pericardial effusion: Code(s): I31.39 - Other pericardial effusion (noninflammatory) Status: Acute Assessment and Plan: * CTA showing mild pericardial effusion * initial EKG showed sinus tachycardia with a rate of 130, QTC 564 * Repeat EKG showing ST with QTc of 410 this a.m. * plan for echocardiogram * cardiology consulted * avoid fluoroquinolones Time Spent With Patient Time with patient: Greater than 35 minutes Subjective Date/time seen: 04/04/24 07:25 Interval history: Interval history: This is a 39 year male presented to the ER on 04/03/2024 shortness of breath/dyspnea. He was just seen the and was diagnosed with pneumonia. He was treated with doxycycline and cefpodoxime. he completed the entire course however still having difficulty breathing, cough, chest tightness, loss of appetite, and nausea. Workup in the hospital included a chest x-ray which showed airspace opacities in the lower lung zone, small right pleural effusion, cardiomegaly. Chest/abdomen/ pelvis CTA showed mild right pleural effusion, small pericardial effusion, mild cardiomegaly, splenomegaly. Initial labs showed a white blood cell count of 4.5, hemoglobin 11.2, platelet count 425, sodium 136, AST 64, alk-phos 147, proBNP 482. UA was obtained and showed 1+ urine ketones otherwise negative. MRSA was negative. Respiratory panel was negative for influenza a and B, COVID. C-reactive protein 6.3. Subjective: Patient denies any chills, nausea, vomiting, diarrhea, abdominal pain. Patient endorses shortness a breath with exertion, chest tenderness from coughing, nonproductive weak cough, fever with a T-max of 102.9?, tachycardic. Labs and imaging reviewed. Review of Systems Review of Systems: All systems reviewed & are unremarkable except as noted in HPI and below Constitutional: Constitutional: Reports as per HPI and Reports no additional constitutional complaints Eyes: Eyes: Reports as per HPI and Reports no additional eye complaints ENT: Reports system reviewed and no additional complaints, except as documented and Reports as per HPI Cardiovascular: Cardiovascular: Reports as per HPI and Reports no additional cardiovascular complaints Respiratory: Respiratory: Reports as per HPI and Reports no additional respiratory complaints Gastrointestinal: Gastrointestinal: Reports as per HPI and Reports no additional gastrointestinal complaints Genitourinary: Genitourinary: Reports no additional male genitourinary complaints and Reports as per HPI Musculoskeletal: Musculoskeletal: Reports no additional musculoskeletal complaints and Reports as per HPI Integumentary/Breasts: Skin/Breast: Reports system reviewed and no additional complaints, except as docu and Reports as per HPI Neurologic: Reports system reviewed and no additional complaints, except as documented and Reports as per HPI Psychiatric: Psychiatric: Reports no additional psychiatric complaints and Reports as per HPI Exam Narrative: General: In no acute distress, well nourished Head: atraumatic, no encephalopathy Eyes: PERRLA, sclera clear ENT: moist mucous membranes, nasal passages clear Neck: supple, no JVD, no adenopathy, trachea midline Cardiac: Normal S1 and S2. No murmur, gallops or friction rubs, peripheral pulses intact. Respiratory: Lungs course to auscultation left> right, no adventitious lung sound,weak cough, currently on room air Gastrointestinal: soft, non-distended, non-tender, normoactive bowel sounds. : voiding clear holland urine Extremities: moves all extremities well, no edema, good ROM, strength 5/5 Skin: clean, dry, intact. No wounds or lesions. Neuro: Alert and oriented x4, cranial nerves intact, no neuro deficits. Psych: normal mood, normal affect, interactive Objective Data Vital Signs Vital Signs: Vital Signs - 24 hr 04/03/24 09:11 04/03/24 10:16 04/03/24 10:30 Temperature 98.7 F Pulse Rate 133 H 118 H Respiratory Rate 19 30 H Blood Pressure 147/87 H 142/88 H Pulse Oximetry 99 100 Oxygen Delivery Room Air Room Air Oxygen Flow Rate 04/03/24 10:31 04/03/24 10:46 04/03/24 11:01 Temperature Pulse Rate 123 H 125 H 115 H Respiratory Rate 31 H 28 H 24 H Blood Pressure 143/89 H 137/94 H 139/93 H Pulse Oximetry 100 99 99 Oxygen Delivery Oxygen Flow Rate 04/03/24 12:00 04/03/24 13:00 04/03/24 14:40 Temperature Pulse Rate 114 H 104 H 100 Respiratory Rate 24 H 28 H 22 H Blood Pressure 138/95 H 140/95 H 138/90 Pulse Oximetry 98 98 99 Oxygen Delivery Oxygen Flow Rate 04/03/24 15:26 04/03/24 16:00 04/03/24 16:56 Temperature 101.0 F H 101 F H Pulse Rate 127 H 119 H Respiratory Rate 40 H Blood Pressure 164/90 H Pulse Oximetry 99 Oxygen Delivery Oxygen Flow Rate 04/03/24 18:32 04/03/24 19:30 04/03/24 20:00 Temperature 98.7 F Pulse Rate 119 H 112 H 100 Respiratory Rate 28 H 18 Blood Pressure 135/86 Pulse Oximetry 98 100 Oxygen Delivery Nasal Cannula Oxygen Flow Rate 2 04/03/24 21:12 04/03/24 22:00 04/04/24 00:00 Temperature 98.9 F Pulse Rate 100 104 H Respiratory Rate 18 Blood Pressure 125/86 Pulse Oximetry 100 100 Oxygen Delivery Nasal Cannula Oxygen Flow Rate 2 04/04/24 00:00 04/04/24 04:00 04/04/24 04:00 Temperature 98.1 F Pulse Rate 100 95 Respiratory Rate 18 18 Blood Pressure 130/89 Pulse Oximetry 100 Oxygen Delivery Oxygen Flow Rate 04/04/24 06:00 Temperature 98.3 F Pulse Rate 76 Respiratory Rate 18 Blood Pressure 139/52 L Pulse Oximetry 96 Oxygen Delivery Oxygen Flow Rate Intake/Output Intake/Output: Intake & Output 04/01/24 04/02/24 04/03/24 04/04/24 23:59 23:59 23:59 23:59 Intake Total 950 1750 Output Total 1300 1200 Balance -350 550 Meds/Results Medications: Active Medications Generic Name Dose Route Start Last Admin Trade Name Freq PRN Reason Stop Dose Admin Acetaminophen 650 mg 04/03/24 13:03 04/03/24 16:56 Acetaminophen 325 Mg Tablet PO 650 mg Q4H PRN Administration Mild Pain (1-3) or Fever Docusate Sodium 100 mg 04/04/24 09:00 Docusate Sodium 100 Mg Capsule PO DAILY CLEMENCIA Enoxaparin Sodium 40 mg 04/04/24 09:00 Enoxaparin 40 Mg/0.4 Ml Syringe SUB-Q DAILY CLEMENCIA Guaifenesin/Dextromethorphan 5 ml 04/04/24 01:04 04/04/24 01:10 Guaifenesin/Dextromethorphan 10 Ml Udc PO 5 ml Q4H PRN Administration Cough Vancomycin HCl 1,500 mg in 500 mls @ 250 mls/hr 04/04/24 00:00 04/04/24 03:03 Vancomycin 1,500 Mg/Ns 500 Ml IVPB Infused Q12H CLEMENCIA Infusion Lactated Ringer's 1,000 mls @ 125 mls/hr 04/03/24 13:05 04/04/24 03:03 Lr - Lactated Ringers Iv IV CONT 125 mls/hr .Q8H CLEMENCIA Administration Ondansetron HCl 4 mg 04/03/24 13:03 Ondansetron Inj 4 Mg/2 Ml Vial IV PUSH Q4H PRN Nausea Perflutren Lipid Microsphere 0 ml 04/03/24 14:36 Perflutren Lipid Microspheres 1.5 Ml Vial Diluted To 10 Ml Total Volume IV PUSH 04/06/24 14:36 ONCE PRN adequate visualization Protocol Radiology Results: ITS Impressions Chest X-Ray 04/03/24 10:12 IMPRESSION: 1. Airspace opacities in the lower lung zones, consistent with atelectasis versus pneumonia. 2. Small right pleural effusion. 3. Enlargement of the cardiac silhouette, which may be cardiomegaly and/or pericardial effusion. Chest/Abdomen/Pelvis CTA 04/03/24 19:12 IMPRESSION: Mild right pleural effusion, right lower lobe compressive atelectasis Discoid atelectasis in bilateral lower lung williamson Small pericardial effusion Mild cardiomegaly Splenomegaly Normal appendix Labs Labs: Laboratory Results - last 24 hr 04/03/24 04/03/24 04/03/24 10:37 11:38 15:00 WBC 4.5 RBC 4.27 L Hgb 11.2 L Hct 33.8 L MCV 79.2 L MCH 26.2 MCHC 33.1 RDW 14.1 Plt Count 425 H MPV 9.6 Immature Gran % (Auto) 0.9 H Neut % (Auto) 76.5 H Lymph % (Auto) 14.2 L Elliott % (Auto) 5.3 Eos % (Auto) 2.9 Baso % (Auto) 0.2 Lymph # (Auto) 0.64 L Elliott # (Auto) 0.2 Eos # (Auto) 0.1 Baso # (Auto) 0.0 Abs Immat Gran (auto) 0.04 H Absolute Neuts (auto) 3.5 Absolute Nucleated RBC 0.000 Nucleated RBC % 0.0 D-Dimer Sodium 136 L Potassium 4.1 Chloride 103 Carbon Dioxide 26 Anion Gap 7 BUN 10 Creatinine 0.70 Estim Creat Clear Calc 130 Estimated GFR > 60 Glucose 105 Lactic Acid 1.2 Calcium 9.1 Iron TIBC % Saturation Ferritin Total Bilirubin 0.9 AST 64 H ALT 50 Alkaline Phosphatase 147 H C-Reactive Protein NT-Pro-B Natriuret Pep 482 H Total Protein 9.0 H Albumin 3.7 Vitamin B12 Folate Urine Color Urine Appearance Urine pH Ur Specific [place] Urine Protein Urine Glucose (UA) Urine Ketones Ur Blood (Man) Urine Nitrate Urine Bilirubin Urine Urobilinogen Ur Leukocyte Esterase Nasal MRSA (PCR) Not detected Influenza A (RT-PCR) Negative Influenza B (RT-PCR) Negative SARS-CoV-2 RNA (RT-PCR) Negative 04/03/24 04/03/24 04/03/24 15:03 16:14 17:26 WBC RBC Hgb Hct MCV MCH MCHC RDW Plt Count MPV Immature Gran % (Auto) Neut % (Auto) Lymph % (Auto) Elliott % (Auto) Eos % (Auto) Baso % (Auto) Lymph # (Auto) Elliott # (Auto) Eos # (Auto) Baso # (Auto) Abs Immat Gran (auto) Absolute Neuts (auto) Absolute Nucleated RBC Nucleated RBC % D-Dimer 6.06 H Sodium 135 L Potassium 4.0 Chloride 104 Carbon Dioxide 24 Anion Gap 7 BUN 9 Creatinine 0.70 Estim Creat Clear Calc 130 Estimated GFR > 60 Glucose 90 Lactic Acid Calcium 8.5 Iron 27 L TIBC 223 L % Saturation 12 L Ferritin 682.00 H Total Bilirubin 0.8 AST 43 ALT 39 Alkaline Phosphatase 118 C-Reactive Protein 6.3 H NT-Pro-B Natriuret Pep Total Protein 8.0 Albumin 3.3 L Vitamin B12 580.0 Folate 17.3 Urine Color Yellow Urine Appearance Clear Urine pH 6.0 Ur Specific [place] 1.007 Urine Protein Negative Urine Glucose (UA) Negative Urine Ketones 1+ H Ur Blood (Man) Negative Urine Nitrate Negative Urine Bilirubin Negative Urine Urobilinogen 0.2 Ur Leukocyte Esterase Negative Nasal MRSA (PCR) Influenza A (RT-PCR) Influenza B (RT-PCR) SARS-CoV-2 RNA (RT-PCR) 04/04/24 05:36 WBC 4.2 L RBC 3.54 L Hgb 9.2 L Hct 28.2 L MCV 79.7 L MCH 26.0 MCHC 32.6 RDW 14.2 Plt Count 344 MPV 10.1 Immature Gran % (Auto) 0.5 Neut % (Auto) 68.1 Lymph % (Auto) 18.8 Elliott % (Auto) 8.8 H Eos % (Auto) 3.8 Baso % (Auto) 0.0 L Lymph # (Auto) 0.79 L Elliott # (Auto) 0.4 Eos # (Auto) 0.2 Baso # (Auto) 0.0 Abs Immat Gran (auto) 0.02 Absolute Neuts (auto) 2.9 Absolute Nucleated RBC 0.000 Nucleated RBC % 0.0 D-Dimer Sodium Potassium Chloride Carbon Dioxide Anion Gap BUN Creatinine 0.60 L Estim Creat Clear Calc 150 Estimated GFR > 60 Glucose Lactic Acid Calcium Iron TIBC % Saturation Ferritin Total Bilirubin AST ALT Alkaline Phosphatase C-Reactive Protein NT-Pro-B Natriuret Pep Total Protein Albumin Vitamin B12 Folate Urine Color Urine Appearance Urine pH Ur Specific [place] Urine Protein Urine Glucose (UA) Urine Ketones Ur Blood (Man) Urine Nitrate Urine Bilirubin Urine Urobilinogen Ur Leukocyte Esterase Nasal MRSA (PCR) Influenza A (RT-PCR) Influenza B (RT-PCR) SARS-CoV-2 RNA (RT-PCR) Quality VTE Prophylaxis VTE prophylaxis: mechanical ordered
--- NOTE | 2024-04-04 07:33 | ECG_ITS ---
Test Date: 2024-04-04 11:23:43 Measurements Intervals [place] Rate: 138 P: 14 [place]: 158 QRS: -4 QRSD: 85 T: 18 QT: 329 QTc: 499 Interpretive Statements SINUS TACHYCARDIA Poor R wave progression Compared to ECG 04/03/2024 09:19:57 Myocardial infarct finding now present Electronically Signed On 04-05-2024 15:23:59 COAGULATION OPERATOR by Daniel Hou M.D.
[2024-04-04] MEDS: guaiFENesin 12 HR 600 MG TABCR PO ×2 (09:10→20:48)
[2024-04-04] MEDS: ENOXAPARIN 40 MG/0.4 ML SYRINGE SUB-Q (09:11)
[2024-04-04] MEDS: CEFEPIME 2 GM/NS 50 ML 2 GM/50 ML BAG IVPB ×3 (09:11→21:23)
[2024-04-04] MEDS: DOXYCYCLINE HYCLATE 100 MG TABLET PO ×2 (09:11→20:48)
[2024-04-04 11:29] LABS: RSV RNA, RT-PCR Negative (Negative)
[2024-04-04] MEDS: ACETAMINOPHEN 325 MG TABLET 650 MG PO (12:08)
--- NOTE | 2024-04-04 13:01 | P.CONCA_ITS ---
Assessment and Plan Assessment and plan (1) Pericardial effusion: Code(s): I31.39 - Other pericardial effusion (noninflammatory) Status: Acute Assessment and Plan: Small pericardial effusion seen on chest CTA on 03/26/24 and 04/03/24. I suspect he has pericarditis. He meets criteria for acute pericarditis with typical sharp, pleuritic chest pain and presence of pericardial effusion. Additionally, he has an elevated CRP, cardiomegaly noted on CXR and chest CTA, and fever. * Initiate anti-inflammatory treatment with ibuprofen 600mg t.i.d (will taper over 1-2 weeks decreasing dose by 200mg/week) and colchicine 0.6mg twice daily (to be continued for 3 months) * Echo has been ordered and is pending * Check ESR * No evidence of hemodynamic compromise (2) Tachycardia: Code(s): R00.0 - Tachycardia, unspecified Status: Acute Assessment and Plan: He has sinus tachycardia. This is most likely secondary to fever, pericarditis. He is asymptomatic in this regard. Can consider beta ivonne, but for now recommend supportive card and treating underlying cause as above. (3) Cardiomegaly: Code(s): I51.7 - Cardiomegaly Status: Acute Assessment and Plan: Echo ordered and pending. (4) Acute hypoxic respiratory failure: Code(s): J96.01 - Acute respiratory failure with hypoxia Status: Acute Assessment and Plan: Secondary to pneumonia. Treatment per hospitalist History of Present Illness History of Present Illness Consult date/time: 04/04/24 13:01 Requesting physician: Eula Johnson APRN Consult reason: Other (tachycardia, pericardial effusion) Reason For Visit: Community acquired pneumonia,failed outpatient thr Narrative: Yosi Pineda is a 39 year old male with no significant past medical history. He presents to the hospital with a chief complaint of progressive shortness of breath. Cardiology is consulted for tachycardia and pericardial effusion. He developed a sharp, tight substernal discomfort about 3-4 weeks ago accompanied by cough, shortness of breath, and fever. His chest discomfort is worse with coughing and deep breathing. He reports being treated for pneumonia because of these symptoms several weeks ago then came back to [facility] ED on 03/26 with ongoing complaint of chest discomfort, and because he was overall stable with evidence of ongoing pneumonia on chest imaging he was once again treated for pneumonia and discharged home from ED. He states despite antibiotic therapy for pneumonia his breathing and chest discomfort have worsened which prompted another presentation to the hospital. He is being treated for pneumonia but has ongoing cough, chest pain, and shortness of breath without improvement. He denies any cardiac history. Review of Systems 2 Review of Systems: All systems reviewed & are unremarkable except as noted in HPI and below PMFSH Past Medical History Medical History Patient denies significant medical history Social History Social History Smoking status: Never smoker Alcohol intake: never Substance use: never Do You Feel Safe in your Home?: Yes Lack of Transportation: No Lack of Food: Never True Current Housing: I Have Housing Concerned About Future Housing: No Difficulty Paying Gas/Electric Bills: No Difficulty Paying for Meds: No Currently Unemployed: No Education: High School Diploma/GED Difficulty w/ Childcare or Family Care: No Spiritual care concerns: No Meds Home Medications and Allergies Home Medications ?Medication ?Instructions ?Recorded ?Confirmed ?Type No Home Medications 04/03/24 04/03/24 History Allergies Allergy/AdvReac Type Severity Reaction Status Date / Time shellfish derived Allergy Intermediate Hives Verified 04/03/24 16:25 Vital Signs Vital Signs - 24 hr 04/03/24 14:40 04/03/24 15:26 04/03/24 16:00 Temperature 38.3 C H Pulse Rate 100 127 H 119 H Respiratory Rate 22 H 40 H Blood Pressure 138/90 164/90 H Pulse Oximetry 99 99 Oxygen Delivery Oxygen Flow Rate Fraction of Inspired Oxygen 04/03/24 16:56 04/03/24 18:32 04/03/24 19:30 Temperature 38.3 C H 37.1 C Pulse Rate 119 H 112 H Respiratory Rate 28 H 18 Blood Pressure 135/86 Pulse Oximetry 98 100 Oxygen Delivery Nasal Cannula Oxygen Flow Rate 2 Fraction of Inspired Oxygen 04/03/24 20:00 04/03/24 21:12 04/03/24 22:00 Temperature 37.2 C Pulse Rate 100 100 Respiratory Rate 18 Blood Pressure 125/86 Pulse Oximetry 100 100 Oxygen Delivery Nasal Cannula Oxygen Flow Rate 2 Fraction of Inspired Oxygen 04/04/24 00:00 04/04/24 00:00 04/04/24 04:00 Temperature 36.7 C Pulse Rate 104 H 100 95 Respiratory Rate 18 Blood Pressure 130/89 Pulse Oximetry 100 Oxygen Delivery Oxygen Flow Rate Fraction of Inspired Oxygen 04/04/24 04:00 04/04/24 06:00 04/04/24 08:00 Temperature 36.8 C 36.4 C Pulse Rate 76 100 Respiratory Rate 18 18 19 Blood Pressure 139/52 L 141/87 H Pulse Oximetry 96 100 Oxygen Delivery Oxygen Flow Rate Fraction of Inspired Oxygen 04/04/24 08:00 04/04/24 09:10 04/04/24 09:15 Temperature Pulse Rate 114 H Respiratory Rate Blood Pressure Pulse Oximetry 100 Oxygen Delivery Room Air Nasal Cannula Oxygen Flow Rate 2.5 Fraction of Inspired Oxygen 30 04/04/24 10:02 04/04/24 11:58 04/04/24 12:00 Temperature 39.4 C H 39.4 C H Pulse Rate 140 H Respiratory Rate 19 Blood Pressure 129/87 Pulse Oximetry 96 96 Oxygen Delivery Room Air Oxygen Flow Rate Fraction of Inspired Oxygen 21 04/04/24 12:08 Temperature 39.4 C H Pulse Rate Respiratory Rate Blood Pressure Pulse Oximetry Oxygen Delivery Oxygen Flow Rate Fraction of Inspired Oxygen Exam 2 Const: General: comfortable, no acute distress, alert and awake O rientation/consciousness: patient oriented x3 HENMT: Head: normal to inspection Eyes: General: appearance normal, both eyes and all related structures P upils: Equal, round and reactive pupils present Neck: Neck: normal visual inspection, supple and no JVD Resp: Effort & Inspection: normal respiratory effort Auscultation: not clear to auscultation bilaterally and rales Cardio: Rate: tachycardic Rhythm: regular rhythm Heart sounds: S1 normal heart sound present, S2 normal heart sound present, no murmurs and no rubs GI: Auscultation: normal bowel sounds Skin: General skin exam: normal color Neuro: General: patient oriented x3 Cranial nerves: Yes Equal, round and reactive pupils present Extrem: General: normal to inspection Other: no edema Psych: Appearance: grossly normal Mental Status: mental status grossly normal Results Labs and Meds 04/04/24 05:36 04/04/24 05:36 Lab results: Cardiac Enzymes 04/03/24 Range/Units 15:03 AST 43 (17-59) U/L CBC 04/04/24 Range/Units 05:36 WBC 4.2 L (4.5-10.0) K/mm3 RBC 3.54 L (4.6-6.20) M/mm3 Hgb 9.2 L (14.0-18.0) g/dL Hct 28.2 L (42.0-52.0) % Plt Count 344 (150-375) k/mm3 Lymph # (Auto) 0.79 L (0.9-3.2) K/mm3 Logan # (Auto) 0.4 (0.1-0.6) K/mm3 Eos # (Auto) 0.2 (0-0.3) K/mm3 Baso # (Auto) 0.0 (0.0-0.1) K/mm3 Comprehensive Metabolic Panel 04/03/24 04/04/24 Range/Units 15:03 05:36 Sodium 135 L (137-145) mmol/L Potassium 4.0 (3.4-5.0) mmol/L Chloride 104 (98-107) mmol/L Carbon Dioxide 24 (22-30) mmol/L BUN 9 (9-20) mg/dL Creatinine 0.70 0.60 L (0.7-1.3) mg/dL Glucose 90 (65-110) mg/dL Calcium 8.5 (8.4-10.2) mg/dL AST 43 (17-59) U/L ALT 39 (6-50) U/L Alkaline Phosphatase 118 (38-126) U/L Total Protein 8.0 (6.3-8.2) g/dL Albumin 3.3 L (3.5-5.1) g/dL Intake and Output 04/03/24 04/04/24 04/04/24 23:59 07:59 15:59 Intake Total 400 1750 120 Output Total 1300 1200 Balance -900 550 120 Intake: IV 1500 Lactated Ringers 1,000 ml @ 125 1000 mls/hr IV CONT .Q8H CLEMENCIA Rx#: [id number] Vancomycin 1,500 mg/Ns 500 ml 1 500 ,500 mg In 500 ml @ 250 mls/hr IVPB Q12H CLEMENCIA Rx#:[id number] Oral 400 250 120 Tube Feeding 0 Tube Flush 0 Other 0 Output: Urine 1300 1200 Other: Intake, Other Source 0 # Unmeasured Voids 1 Number of Bowel Movements Today 1
[2024-04-04] MEDS: IPRATROPIUM 0.5 MG/ALBUTEROL SULFATE 2.5 MG AMPUL.NEB 3 ML NEBULIZE ×2 (14:43→20:31)
[2024-04-04] MEDS: IBUPROFEN 600 MG TABLET PO (15:59)
[2024-04-04] MEDS: METOPROLOL TARTRATE INJ 5 MG/5 ML VIAL IV PUSH (16:03)
[2024-04-04] MEDS: COLCHICINE 0.6 MG TABLET PO (20:48)
[2024-04-05] VITALS (15 sets, daily range): BP systolic 109–128; BP diastolic 67–91; PULSE 90–130; RESP 16–18; TEMP 36.4–37.4; O2SAT 94–100
[2024-04-05] MEDS: IPRATROPIUM 0.5 MG/ALBUTEROL SULFATE 2.5 MG AMPUL.NEB 3 ML NEBULIZE (02:21)
[2024-04-05 05:34] LABS: Basophils Percent Auto 0.1 % (0.2-1.2); Eosinophils Percent Auto 0.4 % (0-4.4); Hematocrit 28.5 % (42.0-52.0); Hemoglobin 9.4 g/dL (14.0-18.0); Immature Granulocyte Absolute 0.03 K/mm3 (0.00-0.031); Immature Granulocyte Percent A 0.4 % (0-0.5); Lymphocytes Absolute Auto 0.88 K/mm3 (0.9-3.2); Lymphocytes Percent Auto 13.1 % (18.3-44.2); Mean Corpuscular Hemoglobin 26.2 pg (26-34); Mean Corpuscular Volume 79.4 fl (80-100); Mean Platelet Volume 10.1 fl (7.4-10.4); Monocytes Absolute Auto 0.6 K/mm3 (0.1-0.6); Monocytes Percent Auto 8.2 % (2.6-8.5); Neutrophils Absolute Auto 5.2 K/mm3 (1.3-6.7); Neutrophils Percent Auto 77.8 % (45.5-73.1); Platelet Count Result 338 k/mm3 (150-375); Red Blood Count 3.59 M/mm3 (4.6-6.20); Red Cell Distribution Width 14.5 % (11.5-14.5); White Blood Count 6.7 K/mm3 (4.5-10.0)
[2024-04-05] MEDS: CEFEPIME 2 GM/NS 50 ML 2 GM/50 ML BAG IVPB ×3 (05:35→22:16)
[2024-04-05] MEDS: ACETAMINOPHEN 325 MG TABLET 650 MG PO (05:40)
[2024-04-05 05:45] LABS: Alanine Aminotransferase 33 U/L (6-50); Albumin Level 3.1 g/dL (3.5-5.1); Alkaline Phosphatase 110 U/L (38-126); Anion Gap 3 mmol/L (4-12); Aspartate Amino Transferase 42 U/L (17-59); Blood Urea Nitrogen 13 mg/dL (9-20); Calcium 8.6 mg/dL (8.4-10.2); Carbon Dioxide 27 mmol/L (22-30); Chloride 103 mmol/L (98-107); Estimated CRCL calculation 130 ml/min; Estimated Glomerular Filt Rate > 60; Glucose 109 mg/dL (65-110); Potassium 3.8 mmol/L (3.4-5.0); Sodium 133 mmol/L (137-145)
--- NOTE | 2024-04-05 07:26 | P.PNIM_ITS ---
Progress Note: A&P Assessment and Plan (1) Acute hypoxic respiratory failure: Code(s): J96.01 - Acute respiratory failure with hypoxia Status: Acute Assessment and Plan: * likely secondary to prolonged pneumonia * currently on 2.5 L nasal cannula * continue to wean O2 for sat greater than 92% * respiratory panel was negative for influenza A and B COVID * RSV negative * continue DuoNeb q.6 hour * blood cultures showing no growth to date on preliminary read * Echo results pending * D-dimer 6.06, CTA negative for PE, Dopplers negative for DVT * Viral panel pending (2) Pneumonia: Code(s): J18.9 - Pneumonia, unspecified organism Status: Inactive Assessment and Plan: patient was diagnosed with pneumonia back on this month and was treated with doxycycline and Cefpodoxime in which he completed the course his symptoms did clear. * Chest x-ray showing airspace opacities in the lower lung zones, small right pleural effusion, cardiomegaly * chest/abdomen/ pelvis CTA showed mild right pleural effusion right lobe compressive atelectasis, small pericardial effusion, cardiomegaly, splenomegaly * white blood cell 6.7 * blood cultures are showing no growth to date on preliminaryread * patient was started on cefepime and vancomycin * MRSA was negative, vancomycin discontinued * will start doxycycline for atypical coverage considering prolonged QTC * Repeat EKG showing QTc 410 * respiratory panel was negative for influenza A, influenza B, RSV, COVID. * Urine Legionella, urine strep, mycoplasma pending * Continue Mucinex * Sputum culture ordered * Pep therapy * continue DuoNebs q6h * wean O2 for sat greater than 92% currently on 2 L nasal cannula (3) Pleural effusion on right: Code(s): J90 - Pleural effusion, not elsewhere classified Status: Inactive Assessment and Plan: * CTA showing right small pleural effusion (4) Anemia: Code(s): D64.9 - Anemia, unspecified Status: Acute Assessment and Plan: * hemoglobin 9.4, MCV 79.4 * iron 27 TIBC 223, ferritin 682 * vitamin B12 580, Folate 17.3 (5) Pericardial effusion: Code(s): I31.39 - Other pericardial effusion (noninflammatory) Status: Acute Assessment and Plan: * CTA showing mild pericardial effusion * initial EKG showed sinus tachycardia with a rate of 130, QTC 564 * Repeat EKG showing ST with QTc of 410-- 04/04 * echocardiogram results pending * cardiology following (6) Sinus tachycardia: Code(s): R00.0 - Tachycardia, unspecified Status: Acute Assessment and Plan: * HR 113-129 * Metoprolol 12.5mg started BID Time Spent With Patient Time with patient: 25 - 35 minutes Subjective Date/time seen: 04/05/24 07:26 Interval history: Interval history: This is a 39 year male presented to the ER on 04/03/2024 shortness of breath/dyspnea. He was just seen the and was diagnosed with pneumonia. He was treated with doxycycline and cefpodoxime. he completed the entire course however still having difficulty breathing, cough, chest tightness, loss of appetite, and nausea. Workup in the hospital included a chest x-ray which showed airspace opacities in the lower lung zone, small right pleural effusion, cardiomegaly. Chest/abdomen/ pelvis CTA showed mild right pleural effusion, small pericardial effusion, mild cardiomegaly, splenomegaly. Initial labs showed a white blood cell count of 4.5, hemoglobin 11.2, platelet count 425, sodium 136, AST 64, alk-phos 147, proBNP 482. UA was obtained and showed 1+ urine ketones otherwise negative. MRSA was negative. Respiratory panel was negative for influenza a and B, COVID. C-reactive protein 6.3. Subjective: Patient denies any new complaints today. Labs reviewed. Patient remains tachycardic 113-129. Review of Systems Review of Systems: All systems reviewed & are unremarkable except as noted in HPI and below Constitutional: Constitutional: Reports as per HPI and Reports no additional constitutional complaints Eyes: Eyes: Reports as per HPI and Reports no additional eye complaints ENT: Reports system reviewed and no additional complaints, except as documented and Reports as per HPI Cardiovascular: Cardiovascular: Reports as per HPI and Reports no additional cardiovascular complaints Respiratory: Respiratory: Reports as per HPI and Reports no additional respiratory complaints Gastrointestinal: Gastrointestinal: Reports as per HPI and Reports no additional gastrointestinal complaints Genitourinary: Genitourinary: Reports no additional male genitourinary comp laints and Reports as per HPI Musculoskeletal: Musculoskeletal: Reports no additional musculoskeletal complaints and Reports as per HPI Integumentary/Breasts: Skin/Breast: Reports system reviewed and no additional complaints, except as docu and Reports as per HPI Neurologic: Reports system reviewed and no additional complaints, except as documented and Reports as per HPI Psychiatric: Psychiatric: Reports no additional psychiatric complaints and Reports as per HPI Exam Narrative: General: In no acute distress, well nourished Cardiac: Normal S1 and S2. No murmur, gallops or friction rubs, peripheral pulses intact. Respiratory: Lungs clear, no adventitious lung sound,weak cough, currently on room air Gastrointestinal: soft, non-distended, non-tender, normoactive bowel sounds. : voiding clear holland urine Neuro: Alert and oriented x4 Objective Data Vital Signs Vital Signs: Vital Signs - 24 hr 04/04/24 08:00 04/04/24 08:00 04/04/24 09:10 Temperature 97.6 F Pulse Rate 100 114 H Respiratory Rate 19 Blood Pressure 141/87 H Pulse Oximetry 100 Oxygen Delivery Room Air Oxygen Flow Rate Fraction of Inspired Oxygen 04/04/24 09:15 04/04/24 10:02 04/04/24 11:58 Temperature 102.9 F H Pulse Rate Respiratory Rate Blood Pressure Pulse Oximetry 100 96 Oxygen Delivery Nasal Cannula Room Air Oxygen Flow Rate 2.5 Fraction of Inspired Oxygen 30 21 04/04/24 12:00 04/04/24 12:00 04/04/24 12:08 Temperature 102.9 F H 102.9 F H Pulse Rate 140 H 138 H Respiratory Rate 19 Blood Pressure 129/87 Pulse Oximetry 96 Oxygen Delivery Oxygen Flow Rate Fraction of Inspired Oxygen 04/04/24 13:08 04/04/24 14:49 04/04/24 14:49 Temperature 100.4 F H Pulse Rate 135 H Respiratory Rate 20 Blood Pressure Pulse Oximetry 97 Oxygen Delivery Room Air Oxygen Flow Rate Fraction of Inspired Oxygen 04/04/24 14:59 04/04/24 16:00 04/04/24 16:02 Temperature Pulse Rate 138 H 138 H 142 H Respiratory Rate 20 Blood Pressure 124/81 Pulse Oximetry Oxygen Delivery Oxygen Flow Rate Fraction of Inspired Oxygen 04/04/24 16:03 04/04/24 18:15 04/04/24 20:00 Temperature 98.8 F 98.4 F Pulse Rate 142 H 118 H Respiratory Rate 18 Blood Pressure 121/71 Pulse Oximetry 97 Oxygen Delivery Oxygen Flow Rate Fraction of Inspired Oxygen 04/04/24 20:00 04/04/24 20:00 04/04/24 20:31 Temperature Pulse Rate 103 H Respiratory Rate Blood Pressure Pulse Oximetry 97 Oxygen Delivery Room Air Room Air Oxygen Flow Rate Fraction of Inspired Oxygen 04/04/24 20:31 04/04/24 20:37 04/04/24 22:00 Temperature 98.3 F Pulse Rate 110 H 112 H 117 H Respiratory Rate 20 20 18 Blood Pressure 110/66 Pulse Oximetry 97 Oxygen Delivery Oxygen Flow Rate Fraction of Inspired Oxygen 04/05/24 00:00 04/05/24 00:00 04/05/24 02:21 Temperature 98.4 F Pulse Rate 107 H 123 H 113 H Respiratory Rate 18 18 Blood Pressure 128/91 H Pulse Oximetry 100 Oxygen Delivery Oxygen Flow Rate Fraction of Inspired Oxygen 04/05/24 02:27 04/05/24 04:00 04/05/24 04:00 Temperature 99.3 F Pulse Rate 130 H 115 H 110 H Respiratory Rate 18 18 Blood Pressure 114/85 Pulse Oximetry 94 Oxygen Delivery Oxygen Flow Rate Fraction of Inspired Oxygen 04/05/24 05:58 Temperature 98.9 F Pulse Rate 129 H Respiratory Rate 18 Blood Pressure 122/71 Pulse Oximetry 94 Oxygen Delivery Oxygen Flow Rate Fraction of Inspired Oxygen Intake/Output Intake/Output: Intake & Output 04/02/24 04/03/24 04/04/24 04/05/24 23:59 23:59 23:59 23:59 Intake Total 950 3050 Output Total 1300 2070 500 Balance -350 980 -500 Meds/Results Medications: Active Medications Generic Name Dose Route Start Last Admin Trade Name Freq PRN Reason Stop Dose Admin Acetaminophen 650 mg 04/03/24 13:03 04/05/24 05:40 Acetaminophen 325 Mg Tablet PO 650 mg Q4H PRN Administration Mild Pain (1-3) or Fever Colchicine 0.6 mg 04/04/24 21:00 04/04/24 20:48 Colchicine 0.6 Mg Tablet PO 0.6 mg Q12HR CLEMENCIA Administration Docusate Sodium 100 mg 04/04/24 09:00 04/04/24 09:11 Docusate Sodium 100 Mg Capsule PO Not Given DAILY CLEMENCIA Doxycycline Hyclate 100 mg 04/04/24 09:00 04/04/24 20:48 Doxycycline Hyclate 100 Mg Tablet PO 100 mg Q12HR CLEMENCIA Administration Enoxaparin Sodium 40 mg 04/04/24 09:00 04/04/24 09:11 Enoxaparin 40 Mg/0.4 Ml Syringe SUB-Q 40 mg DAILY CLEMENCIA Administration Guaifenesin 600 mg 04/04/24 09:00 04/04/24 20:48 Guaifenesin 12 Hr 600 Mg Tabcr PO 600 mg Q12HR CLEMENCIA Administration Cefepime HCl 2 gm in 50 mls @ 100 mls/hr 04/04/24 07:45 04/05/24 05:35 Maxipime 2 Gm/Ns 50 Ml IVPB 100 mls/hr Q8HR CLE[place]IA Administration Ibuprofen 600 mg 04/04/24 15:11 Ibuprofen 600 Mg Tablet PO Q6H PRN Cramping Ibuprofen 600 mg 04/04/24 17:00 04/04/24 15:59 Ibuprofen 600 Mg Tablet PO 600 mg TID CLEMENCIA Administration Levalbuterol HCl 1.25 mg 04/05/24 02:38 Levalbuterol Neb 1.25 Mg/3 Ml INHALATION Q6HRT PRN sob/wheezing Ondansetron HCl 4 mg 04/03/24 13:03 Ondansetron Inj 4 Mg/2 Ml Vial IV PUSH Q4H PRN Nausea Perflutren Lipid Microsphere 0 ml 04/03/24 14:36 Perflutren Lipid Microspheres 1.5 Ml Vial Diluted To 10 Ml Total Volume IV PUSH 04/06/24 14:36 ONCE PRN adequate visualization Protocol Radiology Results: ITS Impressions Chest X-Ray 04/03/24 10:12 IMPRESSION: 1. Airspace opacities in the lower lung zones, consistent with atelectasis versus pneumonia. 2. Small right pleural effusion. 3. Enlargement of the cardiac silhouette, which may be cardiomegaly and/or pericardial effusion. Chest/Abdomen/Pelvis CTA 04/03/24 19:12 IMPRESSION: Mild right pleural effusion, right lower lobe compressive atelectasis Discoid atelectasis in bilateral lower lung williamson Small pericardial effusion Mild cardiomegaly Splenomegaly Normal appendix Venous Doppler Study 04/04/24 09:50 IMPRESSION: Negative bilateral lower extremity venous US. No deep vein thrombosis. Labs Labs: Laboratory Results - last 24 hr 04/03/24 04/03/24 04/04/24 10:37 10:37 09:05 WBC RBC Hgb Hct MCV MCH MCHC RDW Plt Count MPV Immature Gran % (Auto) Neut % (Auto) Lymph % (Auto) Ham[place] % (Auto) Eos % (Auto) Baso % (Auto) Lymph # (Auto) [place] # (Auto) Eos # (Auto) Baso # (Auto) Abs Immat Gran (auto) Absolute Neuts (auto) Absolute Nucleated RBC Nucleated RBC % Sodium Potassium Chloride Carbon Dioxide Anion Gap BUN Creatinine Estim Creat Clear Calc Estimated GFR Glucose Calcium Total Bilirubin AST ALT Alkaline Phosphatase Total Protein Albumin Influenza A (RT-PCR) Cancelled Influenza B (RT-PCR) Cancelled RSV Antigen Cancelled RSV (RT-PCR) Negative Cancelled SARS-CoV-2 RNA (RT-PCR) Cancelled 04/05/24 05:25 WBC 6.7 RBC 3.59 L Hgb 9.4 L Hct 28.5 L MCV 79.4 L MCH 26.2 MCHC 33.0 RDW 14.5 Plt Count 338 MPV 10.1 Immature Gran % (Auto) 0.4 Neut % (Auto) 77.8 H Lymph % (Auto) 13.1 L [place] % (Auto) 8.2 Eos % (Auto) 0.4 Baso % (Auto) 0.1 L Lymph # (Auto) 0.88 L [place] # (Auto) 0.6 Eos # (Auto) 0.0 Baso # (Auto) 0.0 Abs Immat Gran (auto) 0.03 Absolute Neuts (auto) 5.2 Absolute Nucleated RBC 0.000 Nucleated RBC % 0.0 Sodium 133 L Potassium 3.8 Chloride 103 Carbon Dioxide 27 Anion Gap 3 L BUN 13 Creatinine 0.70 Estim Creat Clear Calc 130 Estimated GFR > 60 Glucose 109 Calcium 8.6 Total Bilirubin 1.0 AST 42 ALT 33 Alkaline Phosphatase 110 Total Protein 8.0 Albumin 3.1 L Influenza A (RT-PCR) Influenza B (RT-PCR) RSV Antigen RSV (RT-PCR) SARS-CoV-2 RNA (RT-PCR) Quality VTE Prophylaxis VTE prophylaxis: mechanical ordered
--- NOTE | 2024-04-05 07:44 | P.PNCA_ITS ---
<Statement entered by Riley Carmona MD - 04/05/24 13:46> 39-year-old male who presented with months of fever, shortness of breath, pleuritic chest pain, and orthopnea admitted for further evaluation. Pericarditis with Pericardial effusion -patient clinically without evidence of tamponade however there is early signs of echocardiographic tamponade -this should improve with anti-inflammatory medication and colchicine -if patient's clinical presentation is not improved, would repeat limited echocardiogram to reassess pericardial effusion -there is some concerns for autoimmune disease and would recommend a full autoimmune panel while patient is in the hospital Sinus tachycardia -should improve with anti-inflammatory medication colchicine Acute hypoxic respiratory failure -has been resolving with anti-inflammatory medication colchicine as previously on supplemental oxygen and currently on room air now -if this continues to worsen, would repeat limited echocardiogram to reassess pericardial effusion Progress Note: A&P Assessment and Plan (1) Pericardial effusion: Code(s): I31.39 - Other pericardial effusion (noninflammatory) Status: Acute Assessment and Plan: Small pericardial effusion seen on chest CTA on 03/26/24 and 04/03/24. I suspect he has pericarditis. He meets criteria for acute pericarditis with typical sharp, pleuritic chest pain and presence of pericardial effusion. Additionally, he has an elevated CRP, cardiomegaly noted on CXR and chest CTA, and fever. * Initiate anti-inflammatory treatment with ibuprofen 600mg t.i.d (will taper over 1-2 weeks decreasing dose by 200mg/week) and colchicine 0.6mg twice daily (to be continued for 3 months) * Echo has been ordered and is pending * Check ESR * No evidence of hemodynamic compromise * Still has chest discomfort with deep breaths and coughing. Anticipate improvement within 24 hours of initiation of anti-inflammatory therapy. (2) Tachycardia: Code(s): R00.0 - Tachycardia, unspecified Status: Acute Assessment and Plan: He has sinus tachycardia. This is most likely secondary to fever, pericarditis. He is asymptomatic in this regard. Can consider beta ivonne, but for now recommend supportive card and treating underlying cause as above. (3) Cardiomegaly: Code(s): I51.7 - Cardiomegaly Status: Acute Assessment and Plan: Echo ordered and pending. Clinically does not appear to be in heart failure. (4) Acute hypoxic respiratory failure: Code(s): J96.01 - Acute respiratory failure with hypoxia Status: Acute Assessment and Plan: Secondary to pneumonia. Treatment per hospitalist Subjective Date/time seen: 04/05/24 07:44 Interval history: Cardiology follow up visit Feels somewhat better this morning but still having chest pain with deep breathing and coughing. Feels palpitations when he is active. Review of Systems Review of Systems: All systems reviewed & are unremarkable except as noted in HPI and below Exam Const: General: comfortable, no acute distress, alert and awake Orientation/consciousness: patient oriented x3 HENMT: Head: normal to inspection Eyes: General: appearance normal, both eyes and all related structures Pupils: Equal, round and reactive pupils present Neck: Neck: normal visual inspection, supple and no JVD Resp: Effort & Inspection: normal respiratory effort Auscultation: not clear to auscultation bilaterally, rales and diminished lung sounds on the right in the lower lung williamson Cardio: Rate: tachycardic Rhythm: regular rhythm Heart sounds: S1 normal heart sound present, S2 normal heart sound present, no murmurs and no rubs GI: Auscultation: normal bowel sounds Skin: General skin exam: normal color Neuro: General: patient oriented x3 Cranial nerves: Yes Equal, round and reactive pupils present Extrem: General: normal to inspection Other: no edema Psych: Appearance: grossly normal Mental Status: mental status grossly normal Objective Data Vital Signs Vital Signs: Vital Signs - 24 hr 04/04/24 08:00 04/04/24 08:00 04/04/24 09:10 Temperature 36.4 C Pulse Rate 100 114 H Respiratory Rate 19 Blood Pressure 141/87 H Pulse Oximetry 100 Oxygen Delivery Room Air Oxygen Flow Rate Fraction of Inspired Oxygen 04/04/24 09:15 04/04/24 10:02 04/04/24 11:58 Temperature 39.4 C H Pulse Rate Respiratory Rate Blood Pressure Pulse Oximetry 100 96 Oxygen Delivery Nasal Cannula Room Air Oxygen Flow Rate 2.5 Fraction of Inspired Oxygen 30 21 04/04/24 12:00 04/04/24 12:00 04/04/24 12:08 Temperature 39.4 C H 39.4 C H Pulse Rate 140 H 138 H Respiratory Rate 19 Blood Pressure 129/87 Pulse Oximetry 96 Oxygen Delivery Oxygen Flow Rate Fraction of Inspired Oxygen 04/04/24 13:08 04/04/24 14:49 04/04/24 14:49 Temperature 38.0 C H Pulse Rate 135 H Respiratory Rate 20 Blood Pressure Pulse Oximetry 97 Oxygen Delivery Room Air Oxygen Flow Rate Fraction of Inspired Oxygen 04/04/24 14:59 04/04/24 16:00 04/04/24 16:02 Temperature Pulse Rate 138 H 138 H 142 H Respiratory Rate 20 Blood Pressure 124/81 Pulse Oximetry Oxygen Delivery Oxygen Flow Rate Fraction of Inspired Oxygen 04/04/24 16:03 04/04/24 18:15 04/04/24 20:00 Temperature 37.1 C 36.9 C Pulse Rate 142 H 118 H Respiratory Rate 18 Blood Pressure 121/71 Pulse Oximetry 97 Oxygen Delivery Oxygen Flow Rate Fraction of Inspired Oxygen 04/04/24 20:00 04/04/24 20:00 04/04/24 20:31 Temperature Pulse Rate 103 H Respiratory Rate Blood Pressure Pulse Oximetry 97 Oxygen Delivery Room Air Room Air Oxygen Flow Rate Fraction of Inspired Oxygen 04/04/24 20:31 04/04/24 20:37 04/04/24 22:00 Temperature 36.8 C Pulse Rate 110 H 112 H 117 H Respiratory Rate 20 20 18 Blood Pressure 110/66 Pulse Oximetry 97 Oxygen Delivery Oxygen Flow Rate Fraction of Inspired Oxygen 04/05/24 00:00 04/05/24 00:00 04/05/24 02:21 Temperature 36.9 C Pulse Rate 107 H 123 H 113 H Respiratory Rate 18 18 Blood Pressure 128/91 H Pulse Oximetry 100 Oxygen Delivery Oxygen Flow Rate Fraction of Inspired Oxygen 04/05/24 02:27 04/05/24 04:00 04/05/24 04:00 Temperature 37.4 C Pulse Rate 130 H 115 H 110 H Respiratory Rate 18 18 Blood Pressure 114/85 Pulse Oximetry 94 Oxygen Delivery Oxygen Flow Rate Fraction of Inspired Oxygen 04/05/24 05:58 Temperature 37.2 C Pulse Rate 129 H Respiratory Rate 18 Blood Pressure 122/71 Pulse Oximetry 94 Oxygen Delivery Oxygen Flow Rate Fraction of Inspired Oxygen Intake/Output Intake/Output: Intake & Output 04/02/24 04/03/24 04/04/24 04/05/24 23:59 23:59 23:59 23:59 Intake Total 950 3050 Output Total 1300 2070 500 Balance -350 980 -500 Meds/Results Medications: Active Medications Generic Name Dose Route Start Last Admin Trade Name Freq PRN Reason Stop Dose Admin Acetaminophen 650 mg 04/03/24 13:03 04/05/24 05:40 Acetaminophen 325 Mg Tablet PO 650 mg Q4H PRN Administration Mild Pain (1-3) or Fever Colchicine 0.6 mg 04/04/24 21:00 04/04/24 20:48 Colchicine 0.6 Mg Tablet PO 0.6 mg Q12HR CLEMENCIA Administration Docusate Sodium 100 mg 04/04/24 09:00 04/04/24 09:11 Docusate Sodium 100 Mg Capsule PO Not Given DAILY [facility] Doxycycline Hyclate 100 mg 04/04/24 09:00 04/04/24 20:48 Doxycycline Hyclate 100 Mg Tablet PO 100 mg Q12HR CLEMENCIA Administration Enoxaparin Sodium 40 mg 04/04/24 09:00 04/04/24 09:11 Enoxaparin 40 Mg/0.4 Ml Syringe SUB-Q 40 mg DAILY CLEMENCIA Administration Guaifenesin 600 mg 04/04/24 09:00 04/04/24 20:48 Guaifenesin 12 Hr 600 Mg Tabcr PO 600 mg Q12HR CLEMENCIA Administration Cefepime HCl 2 gm in 50 mls @ 100 mls/hr 04/04/24 07:45 04/05/24 05:35 Maxipime 2 Gm/Ns 50 Ml IVPB 100 mls/hr Q8HR CLEMENCIA Administration Ibuprofen 600 mg 04/04/24 17:00 04/04/24 15:59 Ibuprofen 600 Mg Tablet PO 600 mg TID CLEMENCAI Administration Levalbuterol HCl 1.25 mg 04/05/24 02:38 Levalbuterol Neb 1.25 Mg/3 Ml INHALATION Q6HRT PRN sob/wheezing Metoprolol Tartrate 12.5 mg 04/05/24 09:00 Metoprolol Tartrate 12.5 Mg Tablet PO Q12HR CLEMENCIA Ondansetron HCl 4 mg 04/03/24 13:03 Ondansetron Inj 4 Mg/2 Ml Vial IV PUSH Q4H PRN Nausea Perflutren Lipid Microsphere 0 ml 04/03/24 14:36 Perflutren Lipid Microspheres 1.5 Ml Vial Diluted To 10 Ml Total Volume IV PUSH 04/06/24 14:36 ONCE PRN adequate visualization Protocol Radiology Results: ITS Impressions Chest X-Ray 04/03/24 10:12 IMPRESSION: 1. Airspace opacities in the lower lung zones, consistent with atelectasis versus pneumonia. 2. Small right pleural effusion. 3. Enlargement of the cardiac silhouette, which may be cardiomegaly and/or pericardial effusion. Chest/Abdomen/Pelvis CTA 04/03/24 19:12 IMPRESSION: Mild right pleural effusion, right lower lobe compressive atelectasis Discoid atelectasis in bilateral lower lung williamson Small pericardial effusion Mild cardiomegaly Splenomegaly Normal appendix Venous Doppler Study 04/04/24 09:50 IMPRESSION: Negative bilateral lower extremity venous US. No deep vein thrombosis. Labs Labs: Laboratory Results - last 24 hr 04/03/24 04/03/24 04/04/24 10:37 10:37 09:05 WBC RBC Hgb Hct MCV MCH MCHC RDW Plt Count MPV Immature Gran % (Auto) Neut % (Auto) Lymph % (Auto) [place] % (Auto) Eos % (Auto) Baso % (Auto) Lymph # (Auto) [place] # (Auto) Eos # (Auto) Baso # (Auto) Abs Immat Gran (auto) Absolute Neuts (auto) Absolute Nucleated RBC Nucleated RBC % Sodium Potassium Chloride Carbon Dioxide Anion Gap BUN Creatinine Estim Creat Clear Calc Estimated GFR Glucose Calcium Total Bilirubin AST ALT Alkaline Phosphatase Total Protein Albumin Influenza A (RT-PCR) Cancelled Influenza B (RT-PCR) Cancelled RSV Antigen Cancelled RSV (RT-PCR) Negative Cancelled SARS-CoV-2 RNA (RT-PCR) Cancelled 04/05/24 05:25 WBC 6.7 RBC 3.59 L Hgb 9.4 L Hct 28.5 L MCV 79.4 L MCH 26.2 MCHC 33.0 RDW 14.5 Plt Count 338 MPV 10.1 Immature Gran % (Auto) 0.4 Neut % (Auto) 77.8 H Lymph % (Auto) 13.1 L [place] % (Auto) 8.2 Eos % (Auto) 0.4 Baso % (Auto) 0.1 L Lymph # (Auto) 0.88 L [place] # (Auto) 0.6 Eos # (Auto) 0.0 Baso # (Auto) 0.0 Abs Immat Gran (auto) 0.03 Absolute Neuts (auto) 5.2 Absolute Nucleated RBC 0.000 Nucleated RBC % 0.0 Sodium 133 L Potassium 3.8 Chloride 103 Carbon Dioxide 27 Anion Gap 3 L BUN 13 Creatinine 0.70 Estim Creat Clear Calc 130 Estimated GFR > 60 Glucose 109 Calcium 8.6 Total Bilirubin 1.0 AST 42 ALT 33 Alkaline Phosphatase 110 Total Protein 8.0 Albumin 3.1 L Influenza A (RT-PCR) Influenza B (RT-PCR) RSV Antigen RSV (RT-PCR) SARS-CoV-2 RNA (RT-PCR) Quality VTE Prophylaxis VTE prophylaxis: mechanical ordered
[2024-04-05] MEDS: ENOXAPARIN 40 MG/0.4 ML SYRINGE SUB-Q (08:18)
[2024-04-05] MEDS: DOCUSATE SODIUM 100 MG CAPSULE PO (08:19)
[2024-04-05] MEDS: DOXYCYCLINE HYCLATE 100 MG TABLET PO ×2 (08:19→20:14)
[2024-04-05] MEDS: METOPROLOL TARTRATE 12.5 MG TABLET PO ×2 (08:19→20:15)
[2024-04-05] MEDS: guaiFENesin 12 HR 600 MG TABCR PO ×2 (08:19→20:14)
[2024-04-05] MEDS: COLCHICINE 0.6 MG TABLET PO ×2 (08:19→20:15)
[2024-04-05] MEDS: IBUPROFEN 600 MG TABLET PO ×3 (08:20→16:05)
[2024-04-05 08:57] LABS: Erythrocyte Sedimentation Rate 133 mm/hr (0-20)
[2024-04-05] MEDS: predniSONE 20 MG TABLET 40 MG PO (11:55)
[2024-04-06] VITALS (10 sets, daily range): BP systolic 120–128; BP diastolic 68–82; PULSE 73–118; RESP 16–19; TEMP 36.5–36.9; O2SAT 97–98
[2024-04-06] MEDS: CEFEPIME 2 GM/NS 50 ML 2 GM/50 ML BAG IVPB ×3 (05:12→20:51)
[2024-04-06 05:20] LABS: Basophils Percent Auto 0.2 % (0.2-1.2); Eosinophils Percent Auto 0.3 % (0-4.4); Hematocrit 25.6 % (42.0-52.0); Hemoglobin 8.3 g/dL (14.0-18.0); Immature Granulocyte Absolute 0.03 K/mm3 (0.00-0.031); Immature Granulocyte Percent A 0.5 % (0-0.5); Lymphocytes Absolute Auto 0.83 K/mm3 (0.9-3.2); Lymphocytes Percent Auto 14.1 % (18.3-44.2); Mean Corpuscular HGB Conc 32.4 g/dl (32-36); Mean Corpuscular Hemoglobin 25.9 pg (26-34); Mean Platelet Volume 10.5 fl (7.4-10.4); Monocytes Absolute Auto 0.4 K/mm3 (0.1-0.6); Monocytes Percent Auto 6.1 % (2.6-8.5); Neutrophils Absolute Auto 4.6 K/mm3 (1.3-6.7); Neutrophils Percent Auto 78.8 % (45.5-73.1); Platelet Count Result 336 k/mm3 (150-375); Red Cell Distribution Width 14.5 % (11.5-14.5); White Blood Count 5.9 K/mm3 (4.5-10.0)
[2024-04-06 05:37] LABS: Alanine Aminotransferase 47 U/L (6-50); Alkaline Phosphatase 123 U/L (38-126); Anion Gap 2 mmol/L (4-12); Aspartate Amino Transferase 52 U/L (17-59); Bilirubin,Total 0.6 mg/dL (0.2-1.3); Blood Urea Nitrogen 15 mg/dL (9-20); Calcium 8.7 mg/dL (8.4-10.2); Carbon Dioxide 28 mmol/L (22-30); Chloride 107 mmol/L (98-107); Estimated CRCL calculation 150 ml/min; Estimated Glomerular Filt Rate > 60; Glucose 103 mg/dL (65-110); Potassium 3.8 mmol/L (3.4-5.0); Sodium 137 mmol/L (137-145)
--- NOTE | 2024-04-06 07:10 | P.PNIM_ITS ---
Progress Note: A&P Assessment and Plan (1) Acute hypoxic respiratory failure: Code(s): J96.01 - Acute respiratory failure with hypoxia Status: Acute Assessment and Plan: * likely secondary to prolonged pneumonia * currently on 2.5 L nasal cannula * continue to wean O2 for sat greater than 92% * respiratory panel was negative for influenza A and B COVID * RSV negative * continue DuoNeb q.6 hour * blood cultures showing no growth to date on preliminary read * Echo results pending * D-dimer 6.06, CTA negative for PE, Dopplers negative for DVT * Viral panel pending 04/06 * Continue prednisone * Echo showing moderate pericardial effusion with normal EF * Plan for repeat Echo tomorrow per cardiology recommendation (2) Pneumonia: Code(s): J18.9 - Pneumonia, unspecified organism Status: Inactive Assessment and Plan: patient was diagnosed with pneumonia back on this month and was treated with doxycycline and Cefpodoxime in which he completed the course his symptoms did clear. * Chest x-ray showing airspace opacities in the lower lung zones, small right pleural effusion, cardiomegaly * chest/abdomen/ pelvis CTA showed mild right pleural effusion right lobe compressive atelectasis, small pericardial effusion, cardiomegaly, splenomegaly * white blood cell 6.7 * blood cultures are showing no growth to date on preliminaryread * patient was started on cefepime and vancomycin * MRSA was negative, vancomycin discontinued * will start doxycycline for atypical coverage considering prolonged QTC * Repeat EKG showing QTc 410 * respiratory panel was negative for influenza A, influenza B, RSV, COVID. * Urine Legionella, urine strep, mycoplasma pending * Continue Mucinex * Sputum culture ordered * Pep therapy * continue DuoNebs q6h * wean O2 for sat greater than 92% currently on 2 L nasal cannula 04/06 * decrease prednisone to 30 mg daily * Pulmonology consulted * viral panel pending * Urine legionella, urine strep and mycoplasma still pending * continue Pep therapy and Mucinex (3) Pleural effusion on right: Code(s): J90 - Pleural effusion, not elsewhere classified Status: Inactive Assessment and Plan: * CTA showing right small pleural effusion (4) Anemia: Code(s): D64.9 - Anemia, unspecified Status: Acute Assessment and Plan: * hemoglobin 9.4, MCV 79.4 * iron 27 TIBC 223, ferritin 682 * vitamin B12 580, Folate 17.3 * continue to monitor (5) Pericardial effusion: Code(s): I31.39 - Other pericardial effusion (noninflammatory) Status: Acute Assessment and Plan: * CTA showing mild pericardial effusion * initial EKG showed sinus tachycardia with a rate of 130, QTC 564 * Repeat EKG showing ST with QTc of 410-- 04/04 * echocardiogram showing moderate pericardial effusion with normal EF * Continue Ibuprofen and colchicine per cardiology recommendation * cardiology following * Will check NIC and Rheumatoid factor, immunoglobulins (6) Sinus tachycardia: Code(s): R00.0 - Tachycardia, unspecified Status: Acute Assessment and Plan: * likely secondary to pericardial effusion * HR 90-118-- better today * continue Metoprolol 12.5mg started BID Time Spent With Patient Time with patient: Greater than 35 minutes Subjective Date/time seen: 04/06/24 07:10 Interval history: Interval history: This is a 39 year male presented to the ER on 04/03/2024 shortness of breath/dyspnea. He was just seen the and was diagnosed with pneumonia. He was treated with doxycycline and cefpodoxime. he completed the entire course however still having difficulty breathing, cough, chest tightness, loss of appetite, and nausea. Workup in the hospital included a chest x-ray which showed airspace opacities in the lower lung zone, small right pleural effusion, cardiomegaly. Chest/abdomen/ pelvis CTA showed mild right pleural effusion, small pericardial effusion, mild cardiomegaly, splenomegaly. Initial labs showed a white blood cell count of 4.5, hemoglobin 11.2, platelet count 425, sodium 136, AST 64, alk-phos 147, proBNP 482. UA was obtained and showed 1+ urine ketones otherwise negative. MRSA was negative. Respiratory panel was negative for influenza a and B, COVID. C-reactive protein 6.3. Subjective: Patient denies any new complaints today. He states he is feeling overall improved. Labs reviewed. Review of Systems Review of Systems: 12 systems were reviewed and are negativ e except for as per HPI. All systems reviewed & are unremarkable except as noted in HPI and below Constitutional: Constitutional: Reports as per HPI and Reports no additional c onstitutional complaints Eyes: Eyes: Reports as per HPI and Reports no additional eye complaints ENT: Reports system reviewed and no additional complaints, except as documented and Reports as per HPI Cardiovascular: Cardiovascular: Reports as per HPI and Reports no additional cardiovascular complaints Respiratory: Respiratory: Reports as per HPI and Reports no additional respiratory complaints Gastrointestinal: Gastrointestinal: Reports as per HPI and Reports no additional gastrointestinal complaints Genitourinary: Genitourinary: Reports no additional male genitourinary complaints and Reports as per HPI Musculoskeletal: Musculoskeletal: Reports no additional musculoskeletal complaints and Reports as per HPI Integumentary/Breasts: Skin/Breast: Reports system reviewed and no additional complaints, except as docu and Reports as per HPI Neurologic: Reports system reviewed and no additional complaints, except as documented and Reports as per HPI Psychiatric: Psychiatric: Reports no additional psychiatric complaints and Reports as per HPI Exam Narrative: General: In no acute distress, well nourished Cardiac: Normal S1 and S2. No murmur, gallops or friction rubs, peripheral pulses intact. Respiratory: Lungs clear, no adventitious lung sound,weak cough, currently on room air Gastrointestinal: soft, non-distended, non-tender, normoactive bowel sounds. : voiding clear holland urine Neuro: Alert and oriented x4 Objective Data Vital Signs Vital Signs: Vital Signs - 24 hr 04/05/24 08:00 04/05/24 08:03 04/05/24 08:19 Temperature 98.1 F Pulse Rate 122 H 121 H 124 H Respiratory Rate 18 Blood Pressure 122/67 Pulse Oximetry 96 Oxygen Delivery 04/05/24 12:00 04/05/24 12:01 04/05/24 16:00 Temperature 97.5 F L 98.2 F Pulse Rate 105 H 102 H 91 Respiratory Rate 18 16 Blood Pressure 109/73 120/77 Pulse Oximetry 97 97 Oxygen Delivery 04/05/24 16:03 04/05/24 20:00 04/05/24 20:00 Temperature 98.2 F Pulse Rate 90 93 Respiratory Rate 18 Blood Pressure 128/82 Pulse Oximetry 95 Oxygen Delivery Room Air 04/05/24 20:00 04/05/24 20:15 04/05/24 22:00 Temperature 97.8 F Pulse Rate 95 95 91 Respiratory Rate 18 Blood Pressure 120/75 Pulse Oximetry 97 Oxygen Delivery 04/06/24 00:00 04/06/24 00:00 04/06/24 04:00 Temperature 98.1 F 98.1 F Pulse Rate 90 90 103 H Respiratory Rate 18 18 Blood Pressure 120/74 127/79 Pulse Oximetry 97 98 Oxygen Delivery 04/06/24 04:00 04/06/24 06:00 Temperature 98.4 F Pulse Rate 73 101 H Respiratory Rate 18 Blood Pressure 123/82 Pulse Oximetry 97 Oxygen Delivery Intake/Output Intake/Output: Intake & Output 04/03/24 04/04/24 04/05/24 04/06/24 23:59 23:59 23:59 23:59 Intake Total 950 3050 1800 50 Output Total 1300 2070 500 Balance -303 065 1369 50 Meds/Results Medications: Active Medications Generic Name Dose Route Start Last Admin Trade Name Freq PRN Reason Stop Dose Admin Acetaminophen 650 mg 04/03/24 13:03 04/05/24 05:40 Acetaminophen 325 Mg Tablet PO 650 mg Q4H PRN Administration Mild Pain (1-3) or Fever Colchicine 0.6 mg 04/04/24 21:00 04/05/24 20:15 Colchicine 0.6 Mg Tablet PO 0.6 mg Q12HR CLEMENCIA Administration Docusate Sodium 100 mg 04/04/24 09:00 04/05/24 08:19 Docusate Sodium 100 Mg Capsule PO 100 mg DAILY CLEMENCIA Administration Doxycycline Hyclate 100 mg 04/04/24 09:00 04/05/24 20:14 Doxycycline Hyclate 100 Mg Tablet PO 100 mg Q12HR CLEMENCIA Administration Enoxaparin Sodium 40 mg 04/04/24 09:00 04/05/24 08:18 Enoxaparin 40 Mg/0.4 Ml Syringe SUB-Q 40 mg DAILY CLEMENCIA Administration Guaifenesin 600 mg 04/04/24 09:00 04/05/24 20:14 Guaifenesin 12 Hr 600 Mg Tabcr PO 600 mg Q12HR CLEMENCIA Administration Cefepime HCl 2 gm in 50 mls @ 100 mls/hr 04/04/24 07:45 04/06/24 05:42 Maxipime 2 Gm/Ns 50 Ml IVPB Infused Q8HR CLEMENCIA Infusion Ibuprofen 600 mg 04/04/24 17:00 04/05/24 16:05 Ibuprofen 600 Mg Tablet PO 600 mg TID CLEMENCIA Administration Levalbuterol HCl 1.25 mg 04/05/24 02:38 Levalbuterol Neb 1.25 Mg/3 Ml INHALATION Q6HRT PRN sob/wheezing Metoprolol Tartrate 12.5 mg 04/05/24 09:00 04/05/24 20:15 Metoprolol Tartrate 12.5 Mg Tablet PO 12.5 mg Q12HR CLEMENCIA Administration Ondansetron HCl 4 mg 04/03/24 13:03 Ondansetron Inj 4 Mg/2 Ml Vial IV PUSH Q4H PRN Nausea Perflutren Lipid Microsphere 0 ml 04/03/24 14:36 Perflutren Lipid Microspheres 1.5 Ml Vial Diluted To 10 Ml Total Volume IV PUSH 04/06/24 14:36 ONCE PRN adequate visualization Protocol Prednisone 40 mg 04/05/24 09:20 04/05/24 11:55 Prednisone 20 Mg Tablet PO 40 mg DAILY@0800 CLEMENCIA Administration Radiology Results: ITS Impressions Chest/Abdomen/Pelvis CTA 04/03/24 19:12 IMPRESSION: Mild right pleural effusion, right lower lobe compressive atelectasis Discoid atelectasis in bilateral lower lung [place]ams[place] Small pericardial effusion Mild cardiomegaly Splenomegaly Normal appendix Venous Doppler Study 04/04/24 09:50 IMPRESSION: Negative bilateral lower extremity venous US. No deep vein thrombosis. Chest X-Ray 04/05/24 10:58 IMPRESSION: 1. Mild airspace opacities in the mid and lower lung zones, likely a combination of mild atelectasis and mild pulmonary edema. 2. Small pleural effusions. 3. Enlargement of the cardiac silhouette, likely secondary to pericardial effusion. Labs Labs: Laboratory Results - last 24 hr 04/05/24 04/06/24 05:25 04:49 WBC 5.9 RBC 3.20 L Hgb 8.3 L Hct 25.6 L MCV 80.0 MCH 25.9 L MCHC 32.4 RDW 14.5 Plt Count 336 MPV 10.5 H Immature Gran % (Auto) 0.5 Neut % (Auto) 78.8 H Lymph % (Auto) 14.1 L [place] % (Auto) 6.1 Eos % (Auto) 0.3 Baso % (Auto) 0.2 Lymph # (Auto) 0.83 L [place] # (Auto) 0.4 Eos # (Auto) 0.0 Baso # (Auto) 0.0 Abs Immat Gran (auto) 0.03 Absolute Neuts (auto) 4.6 Absolute Nucleated RBC 0.000 Nucleated RBC % 0.0 ESR 133 H Sodium 137 Potassium 3.8 Chloride 107 Carbon Dioxide 28 Anion Gap 2 L BUN 15 Creatinine 0.60 L Estim Creat Clear Calc 150 Estimated GFR > 60 Glucose 103 Calcium 8.7 Total Bilirubin 0.6 AST 52 ALT 47 Alkaline Phosphatase 123 Total Protein 8.0 Albumin 3.0 L Quality VTE Prophylaxis VTE prophylaxis: mechanical ordered
[2024-04-06] MEDS: ACETAMINOPHEN 325 MG TABLET 650 MG PO (08:24)
[2024-04-06] MEDS: DOCUSATE SODIUM 100 MG CAPSULE PO (08:25)
[2024-04-06] MEDS: METOPROLOL TARTRATE 12.5 MG TABLET PO ×2 (08:25→20:51)
[2024-04-06] MEDS: DOXYCYCLINE HYCLATE 100 MG TABLET PO ×2 (08:25→20:50)
[2024-04-06] MEDS: predniSONE 20 MG TABLET 40 MG PO (08:25)
[2024-04-06] MEDS: guaiFENesin 12 HR 600 MG TABCR PO ×2 (08:26→20:51)
[2024-04-06] MEDS: COLCHICINE 0.6 MG TABLET PO ×2 (08:26→20:50)
[2024-04-06] MEDS: IBUPROFEN 600 MG TABLET PO ×3 (08:26→16:21)
[2024-04-06] MEDS: ENOXAPARIN 40 MG/0.4 ML SYRINGE SUB-Q (08:27)
--- NOTE | 2024-04-06 10:33 | P.PNCA_ITS ---
Progress Note: A&P Assessment and Plan (1) Pericardial effusion: Code(s): I31.39 - Other pericardial effusion (noninflammatory) Status: Acute Assessment and Plan: Small pericardial effusion seen on chest CTA on 03/26/24 and 04/03/24. I suspect he has pericarditis. He meets criteria for acute pericarditis with typical sharp, pleuritic chest pain and presence of pericardial effusion. Additionally, he has an elevated CRP, cardiomegaly noted on CXR and chest CTA, and fever. * Continue anti-inflammatory treatment with ibuprofen 600mg t.i.d (will taper over 1-2 weeks decreasing dose by 200mg/week) and colchicine 0.6mg twice daily (to be continued for 3 months) * Echo echocardiogram shows moderate pericardial effusion with early signs of tamponade. We will plan to repeat a limited echocardiogram tomorrow to further assess. * ESR severely elevated at 133. NIC and rheumatoid factor were drawn this morning and pending. * He continues to be symptomatic with cough, shortness of breath and chest pain this patient will wake up in the morning. * This patient has been complaining of joint pains and this pericardial effusion could be Rheumatological in etiology. Will await NIC and rheumatoid factor. Patient is also receiving prednisone 40 mg p.o. daily. (2) Tachycardia: Code(s): R00.0 - Tachycardia, unspecified Status: Acute Assessment and Plan: He has sinus tachycardia. This is most likely secondary to fever, pericarditis. He is asymptomatic in this regard. Can consider beta ivonne, but for now recommend supportive card and treating underlying cause as above. Will await for now. (3) Cardiomegaly: Code(s): I51.7 - Cardiomegaly Status: Acute Assessment and Plan: Echocardiogram shows normal ejection fraction but does show moderate pericardial effusion. A repeat limited echo tomorrow. Hemodynamically stable. (4) Acute hypoxic respiratory failure: Code(s): J96.01 - Acute respiratory failure with hypoxia Status: Acute Assessment and Plan: Secondary to pneumonia. Treatment per hospitalist (5) Community acquired pneumonia: Code(s): J18.9 - Pneumonia, unspecified organism Status: Acute Assessment and Plan: In regards to pneumonia continue antibiotics. Because this could be rheumatological in etiology, patient's requested pulmonary consultation. We will place order for pulmonary consultation. I did speak to patient's nurse to put the order for the pulmonary consultation because I do not know who was covering for pulmonary. Subjective Date/time seen: Date of service 04/06/24 10:33 Interval history: Cardiology follow up visit Feels somewhat better this morning but still having chest pain with deep breathing and coughing. Feels palpitations when he is active. Date of service 04/06/2024-the had discomfort in his chest when he woke up this morning as he was coughing and trying to clear his throat. When he 1st walk to the bathroom he felt tachycardic. Telemetry shows sinus tachycardia episode. Review of Systems Review of Systems: All systems reviewed & are unremarkable except as noted in HPI and below Constitutional: Comments: Tired Cardiovascular: Cardiovascular: Reports chest pain Respiratory: Respiratory: Reports cough and Reports dyspnea on exertion Gastrointestinal: Gastrointestinal: Denies vomiting Musculoskeletal: Comments: He has history of joint pains Neurologic: Denies confusion Exam Const: General: comfortable, no acute distress, alert and awake Orientation/consciousness: patient oriented x3 HENMT: Head: normal to inspection Eyes: General: appearance normal, both eyes and all related structures Pupils: Equal, round and reactive pupils present Neck: Neck: normal visual inspection, supple and no JVD Resp: Effort & Inspection: normal respiratory effort Auscultation: diminished lung sounds on the right in the lower lung williamson Cardio: Rate: tachycardic Rhythm: regular rhythm Heart sounds: S1 normal heart sound present, S2 normal heart sound present, no murmurs and no rubs GI: Auscultation: normal bowel sounds Skin: General skin exam: normal color Neuro: General: patient oriented x3 Cranial nerves: Yes Equal, round and reactive pupils present Extrem: General: normal to inspection Other: no edema Psych: Appearance: grossly normal Mental Status: mental status grossly normal Objective Data Vital Signs Vital Signs: Vital Signs - 24 hr 04/05/24 12:00 04/05/24 12:01 04/05/24 16:00 Temperature 36.4 C L 36.8 C Pulse Rate 105 H 102 H 91 Respiratory Rate 18 16 Blood Pressure 109/73 120/77 Pulse Oximetry 97 97 Oxygen Delivery 04/05/24 16:03 04/05/24 20:00 04/05/24 20:00 Temperature 36.8 C Pulse Rate 90 93 Respiratory Rate 18 Blood Pressure 128/82 Pulse Oximetry 95 Oxygen Delivery Room Air 04/05/24 20:00 04/05/24 20:15 04/05/24 22:00 Temperature 36.6 C Pulse Rate 95 95 91 Respiratory Rate 18 Blood Pressure 120/75 Pulse Oximetry 97 Oxygen Delivery 04/06/24 00:00 04/06/24 00:00 04/06/24 04:00 Temperature 36.7 C 36.7 C Pulse Rate 90 90 103 H Respiratory Rate 18 18 Blood Pressure 120/74 127/79 Pulse Oximetry 97 98 Oxygen Delivery 04/06/24 04:00 04/06/24 06:00 04/06/24 08:00 Temperature 36.9 C 36.8 C Pulse Rate 73 101 H 80 Respiratory Rate 18 18 Blood Pressure 123/82 126/78 Pulse Oximetry 97 98 Oxygen Delivery 04/06/24 08:25 Temperature Pulse Rate 118 H Respiratory Rate Blood Pressure Pulse Oximetry Oxygen Delivery Intake/Output Intake/Output: Intake & Output 04/03/24 04/04/24 04/05/24 04/06/24 23:59 23:59 23:59 23:59 Intake Total 950 3050 1800 290 Output Total 1300 2070 500 Balance -074 952 1264 290 Meds/Results Medications: Active Medications Generic Name Dose Route Start Last Admin Trade Name Freq PRN Reason Stop Dose Admin Acetaminophen 650 mg 04/03/24 13:03 04/06/24 08:24 Acetaminophen 325 Mg Tablet PO 650 mg Q4H PRN Administration Mild Pain (1-3) or Fever Colchicine 0.6 mg 04/04/24 21:00 04/06/24 08:26 Colchicine 0.6 Mg Tablet PO 0.6 mg Q12HR CLEMENCIA Administration Docusate Sodium 100 mg 04/04/24 09:00 04/06/24 08:25 Docusate Sodium 100 Mg Capsule PO 100 mg DAILY CLEMENCIA Administration Doxycycline Hyclate 100 mg 04/04/24 09:00 04/06/24 08:25 Doxycycline Hyclate 100 Mg Tablet PO 100 mg Q12HR CLEMENCIA Administration Enoxaparin Sodium 40 mg 04/04/24 09:00 04/06/24 08:27 Enoxaparin 40 Mg/0.4 Ml Syringe SUB-Q 40 mg DAILY CLEMENCIA Administration Guaifenesin 600 mg 04/04/24 09:00 04/06/24 08:26 Guaifenesin 12 Hr 600 Mg Tabcr PO 600 mg Q12HR CLEMENCIA Administration Cefepime HCl 2 gm in 50 mls @ 100 mls/hr 04/04/24 07:45 04/06/24 05:42 Maxipime 2 Gm/Ns 50 Ml IVPB Infused Q8HR CLEMENCIA Infusion Ibuprofen 600 mg 04/04/24 17:00 04/06/24 08:26 Ibuprofen 600 Mg Tablet PO 600 mg TID CLEMENCIA Administration Levalbuterol HCl 1.25 mg 04/05/24 02:38 Levalbuterol Neb 1.25 Mg/3 Ml INHALATION Q6HRT PRN sob/wheezing Metoprolol Tartrate 12.5 mg 04/05/24 09:00 04/06/24 08:25 Metoprolol Tartrate 12.5 Mg Tablet PO 12.5 mg Q12HR CLEMENCIA Administration Ondansetron HCl 4 mg 04/03/24 13:03 Ondansetron Inj 4 Mg/2 Ml Vial IV PUSH Q4H PRN Nausea Perflutren Lipid Microsphere 0 ml 04/03/24 14:36 Perflutren Lipid Microspheres 1.5 Ml Vial Diluted To 10 Ml Total Volume IV PUSH 04/06/24 14:36 ONCE PRN adequate visualization Protocol Prednisone 40 mg 04/05/24 09:20 04/06/24 08:25 Prednisone 20 Mg Tablet PO 40 mg DAILY@0800 CLEMENCIA Administration Radiology Results: ITS Impressions Chest/Abdomen/Pelvis CTA 04/03/24 19:12 IMPRESSION: Mild right pleural effusion, right lower lobe compressive atelectasis Discoid atelectasis in bilateral lower lung williamson Small pericardial effusion Mild cardiomegaly Splenomegaly Normal appendix Venous Doppler Study 04/04/24 09:50 IMPRESSION: Negative bilateral lower extremity venous US. No deep vein thrombosis. Chest X-Ray 04/05/24 10:58 IMPRESSION: 1. Mild airspace opacities in the mid and lower lung zones, likely a combination of mild atelectasis and mild pulmonary edema. 2. Small pleural effusions. 3. Enlargement of the cardiac silhouette, likely secondary to pericardial effusion. Labs Labs: Laboratory Results - last 24 hr 04/06/24 04:49 WBC 5.9 RBC 3.20 L Hgb 8.3 L Hct 25.6 L MCV 80.0 MCH 25.9 L MCHC 32.4 RDW 14.5 Plt Count 336 MPV 10.5 H Immature Gran % (Auto) 0.5 Neut % (Auto) 78.8 H Lymph % (Auto) 14.1 L [place] % (Auto) 6.1 Eos % (Auto) 0.3 Baso % (Auto) 0.2 Lymph # (Auto) 0.83 L [place] # (Auto) 0.4 Eos # (Auto) 0.0 Baso # (Auto) 0.0 Abs Immat Gran (auto) 0.03 Absolute Neuts (auto) 4.6 Absolute Nucleated RBC 0.000 Nucleated RBC % 0.0 Sodium 137 Potassium 3.8 Chloride 107 Carbon Dioxide 28 Anion Gap 2 L BUN 15 Creatinine 0.60 L Estim Creat Clear Calc 150 Estimated GFR > 60 Glucose 103 Calcium 8.7 Total Bilirubin 0.6 AST 52 ALT 47 Alkaline Phosphatase 123 Total Protein 8.0 Albumin 3.0 L
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
[2024-04-07] VITALS (10 sets, daily range): BP systolic 115–134; BP diastolic 72–89; PULSE 59–111; RESP 14–18; TEMP 36.4–36.6; O2SAT 97–99
[2024-04-07] MEDS: CEFEPIME 2 GM/NS 50 ML 2 GM/50 ML BAG IVPB ×3 (06:00→20:35)
[2024-04-07 06:12] LABS: Basophils Percent Auto 0.2 % (0.2-1.2); Eosinophils Absolute Auto 0.1 K/mm3 (0-0.3); Eosinophils Percent Auto 2.1 % (0-4.4); Hematocrit 24.5 % (42.0-52.0); Hemoglobin 7.9 g/dL (14.0-18.0); Immature Granulocyte Absolute 0.04 K/mm3 (0.00-0.031); Immature Granulocyte Percent A 0.7 % (0-0.5); Lymphocytes Absolute Auto 1.22 K/mm3 (0.9-3.2); Lymphocytes Percent Auto 21.5 % (18.3-44.2); Mean Corpuscular HGB Conc 32.2 g/dl (32-36); Mean Corpuscular Hemoglobin 26.1 pg (26-34); Mean Corpuscular Volume 80.9 fl (80-100); Mean Platelet Volume 10.4 fl (7.4-10.4); Monocytes Absolute Auto 0.3 K/mm3 (0.1-0.6); Monocytes Percent Auto 4.8 % (2.6-8.5); Neutrophils Percent Auto 70.7 % (45.5-73.1); Platelet Count Result 383 k/mm3 (150-375); Red Blood Count 3.03 M/mm3 (4.6-6.20); Red Cell Distribution Width 14.8 % (11.5-14.5); White Blood Count 5.7 K/mm3 (4.5-10.0)
[2024-04-07 06:27] LABS: Glucose 88 mg/dL (65-110); Lactate Dehydrogenase 187 U/L (120-246)
[2024-04-07 06:29] LABS: Alanine Aminotransferase 62 U/L (6-50); Alkaline Phosphatase 113 U/L (38-126); Anion Gap 3 mmol/L (4-12); Aspartate Amino Transferase 65 U/L (17-59); Bilirubin,Total 0.6 mg/dL (0.2-1.3); Blood Urea Nitrogen 16 mg/dL (9-20); Calcium 8.7 mg/dL (8.4-10.2); Carbon Dioxide 25 mmol/L (22-30); Chloride 111 mmol/L (98-107); Estimated CRCL calculation 150 ml/min; Estimated Glomerular Filt Rate > 60; Glucose 89 mg/dL (65-110); Potassium 3.2 mmol/L (3.4-5.0); Sodium 139 mmol/L (137-145)
--- NOTE | 2024-04-07 08:00 | ECHOL_ITS ---
Patient Info Name: Yosi Pineda Age: 39 years : 1985 Gender: Male Ht: 71 in Wt: 187 lbs BSA: 2.07 m2 HR: 79 bpm BP: 134 / 87 mmHg Technical Quality: Good Exam Date: 04/07/2024 12:16 PM Exam Location: Echo Lab Patient Status: Inpatient Admit Date: 04/03/2024 Staff Ordering Physician: Daniel Hou MD High Lift Operator: Jayla Sheppard RDCS Attending Provider: Nasrin Thorne APRN Referring Physician: Ameya MARTIN; Exam Type: CA echo limited Study Info Indications I31.3 - Pericardial effusion (noninflammatory) Limited two-dimensional transthoracic echocardiogram is performed. Summary 1. There is normal biventricular systolic function. 2. There is no significant valvular disease. 3. There is moderate pericardial effusion that appears slightly decreased in size compared to previous. 4. There is no longer early echocardiographic signs of tamponade. Left Ventricle The left ventricle is normal in size and systolic function. The left ventricular ejection fraction is visually estimated to be 50-55%. Right Ventricle The right ventricle is normal in size and systolic function. Left Atria The left atrium visually appears normal in size. Right Atria The right atrium visually appears normal in size. Atrial Septum The atrial septum visually appears intact. Aortic Valve The aortic valve is trileaflet and opens well. There is no aortic regurgitation. Pulmonic Valve The pulmonic valve is normal. There is no color Doppler evidence of pulmonic valve regurgitation in this study. Mitral Valve The mitral valve is normal. There is trace mitral regurgitation. Tricuspid Valve The tricuspid valve is normal. There is trace tricuspid regurgitation. Pericardium/Pleural There is moderate pericardial effusion mostly adjacent to right atrium and right ventricle with no evidence of echocardiographic tamponade. The amount of pericardial effusion is decreased compared to previous study. Inferior Vena Cava Normal inferior vena cava with >50% collapse upon inspiration consistent with normal right atrial pressure, 3 mmHg. Aorta The aortic root at the level of the sinus of Valsalva measures 3.6 cm in diameter. Mitral Valve Name Value Normal MV Doppler MV Decel [place] 466 cm/s2 MV PHT 57 ms MV Area (PHT) 3.9 cm2 4.0-5.0 MV Diastolic Function MV E Peak Velocity 91 cm/s MV A Peak Velocity 59 cm/s MV E/A 1.5 MV Decel Time 196 ms Tricuspid Valve Name Value Normal TV Regurgitation Doppler TR Peak Velocity 243 cm/s TR Peak Gradient 24 mmHg Estimated PAP/RSVP RA Pressure 3 mmHg <=5 PA Systolic Pressure 27 mmHg <36 RV Systolic Pressure 27 mmHg <36 Ventricles Name Value Normal LV Dimensions 2D/MM IVS Diastolic Thickness (2D) 0.9 cm 0.6-1.0 IVS Diastole Thickness (MM) 0.8 cm 0.6-1.0 LVID Diastole (2D) 4.6 cm 4.2-5.8 LVID Diastole (MM) 5.4 cm 4.2-5.8 LVIW Diastolic Thickness (2D) 0.9 cm 0.6-1.0 LVIW Diastolic Thickness (MM) 0.8 cm 0.6-1.0 LVID Systole (2D) 3.3 cm 2.5-4.0 LVID Systole (MM) 3.5 cm 2.5-4.0 LV Mass (2D Cubed) 133.30 g 88.00-224.00 LV Mass Index (2D Cubed) 64 g/m2 49-115 Relative Wall Thickness (2D) 0.38 LV Mass (MM Cubed) 163.40 g 88.00-224.00 LV Mass Index (MM Cubed) 79 g/m2 49-115 Relative Wall Thickness (MM) 0.31 LV Fractional Shortening/Ejection Fraction 2D/MM LV Fractional Shortening (2D) 28 % 25-43 LV Fractional Shortening (MM) 35 % 25-43 LV EF (MM Teicholz) 64 % 52-72 LV EF (2D Teicholz) 55 % 52-72 LV Diastolic Volume (4C MOD) 83 ml LV EF (4C MOD) 58 % LV Diastolic Volume (2C MOD) 85 ml LV EF (2C MOD) 60 % LV Diastolic Volume (BP MOD) 85 ml 62-150 LV Diastolic Volume Index (BP MOD) 41 ml/m2 34-74 LV Systolic Volume (BP MOD) 35 ml 21-61 LV Systolic Volume Index (BP MOD) 17 ml/m2 11-31 LV EF (BP MOD) 59 % 52-72 LV Diastolic Length (4C) 8.8 cm LV Systolic Length (4C) 7.4 cm LV Stroke Volume (4C MOD) 48 ml Report Signatures
[2024-04-07] MEDS: DOCUSATE SODIUM 100 MG CAPSULE PO (09:04)
[2024-04-07] MEDS: PANTOPRAZOLE 40 MG TABLET 80 MG PO ×2 (09:04→20:39)
[2024-04-07] MEDS: COLCHICINE 0.6 MG TABLET PO ×2 (09:06→20:35)
[2024-04-07] MEDS: METOPROLOL TARTRATE 12.5 MG TABLET PO ×2 (09:06→20:35)
[2024-04-07] MEDS: IBUPROFEN 600 MG TABLET PO ×2 (09:06→17:21)
[2024-04-07] MEDS: DOXYCYCLINE HYCLATE 100 MG TABLET PO ×2 (09:06→20:35)
[2024-04-07] MEDS: predniSONE 10 MG TABLET 30 MG PO (09:07)
[2024-04-07] MEDS: guaiFENesin 12 HR 600 MG TABCR PO ×2 (09:07→20:35)
--- NOTE | 2024-04-07 09:13 | P.PNCA_ITS ---
Progress Note: A&P Assessment and Plan (1) Pericardial effusion: Code(s): I31.39 - Other pericardial effusion (noninflammatory) Status: Acute Assessment and Plan: Small pericardial effusion seen on chest CTA on 03/26/24 and 04/03/24. I suspect he has pericarditis. He meets criteria for acute pericarditis with typical sharp, pleuritic chest pain and presence of pericardial effusion. Additionally, he has an elevated CRP, cardiomegaly noted on CXR and chest CTA, and fever. * Continue anti-inflammatory treatment with ibuprofen 600mg t.i.d (will taper over 1-2 weeks decreasing dose by 200mg/week) and colchicine 0.6mg twice daily (to be continued for 3 months) * Repeat echo pending today * ESR severely elevated at 133. NIC and rheumatoid factor were drawn this morning and pending. * He continues to be symptomatic with cough, shortness of breath and chest pain this patient will wake up in the morning. * This patient has been complaining of joint pains and this pericardial effusion could be Rheumatological in etiology. Will await NIC and rheumatoid factor. Patient is also receiving prednisone 40 mg p.o. daily. (2) Tachycardia: Code(s): R00.0 - Tachycardia, unspecified Status: Acute Assessment and Plan: Tachycardia also improving. He is asymptomatic in this regard. Tolerating beta-ivonne (3) Cardiomegaly: Code(s): I51.7 - Cardiomegaly Status: Acute Assessment and Plan: Echocardiogram shows normal ejection fraction but does show moderate pericardial effusion. A repeat limited echo today. Hemodynamically stable. (4) Acute hypoxic respiratory failure: Code(s): J96.01 - Acute respiratory failure with hypoxia Status: Acute Assessment and Plan: Secondary to pneumonia. Treatment per hospitalist (5) Community acquired pneumonia: Code(s): J18.9 - Pneumonia, unspecified organism Status: Acute Assessment and Plan: In regards to pneumonia continue antibiotics. Because this could be rheumatological in etiology, patient's requested pulmonary consultation. We will place order for pulmonary consultation. (6) Hypokalemia: Code(s): E87.6 - Hypokalemia Status: Acute Assessment and Plan: Potassium 3.2 today. Will replace with 40 mEq potassium chloride p.o. times 1 Subjective Date/time seen: 04/07/24 09:13 Interval history: Cardiology follow up visit Feels somewhat better this morning but still having chest pain with deep breathing and coughing. Feels palpitations when he is active. Date of service 04/06/2024-the had discomfort in his chest when he woke up this morning as he was coughing and trying to clear his throat. When he 1st walk to the bathroom he felt tachycardic. Telemetry shows sinus tachycardia episode. Date of service 04/07/2024: He feels better today. Less short of breath. Having some mild chest pain but improved. Review of Systems Review of Systems: All systems reviewed & are unremarkable except as noted in HPI and below Cardiovascular: Cardiovascular: Reports chest pain and Reports dyspnea on exertion Respiratory: Respiratory: Reports cough and Reports dyspnea on exertion Gastrointestinal: Gastrointestinal: Denies vomiting Neurologic: Denies confusion Psychiatric: Psychiatric: Denies confusion Exam Const: General: comfortable, no acute distress, alert and awake; No confusion Orientation/consciousness: patient oriented x3 and No confusion HENMT: Head: normal to inspection Eyes: General: appearance normal, both eyes and all related structures Pupils: Equal, round and reactive pupils present Neck: Neck: normal visual inspection, supple and no JVD Resp: Effort & Inspection: normal respiratory effort Auscultation: not clear to auscultation bilaterally, rales and diminished lung sounds on the right in the lower lung williamson Cardio: Rate: tachycardic Rhythm: regular rhythm Heart sounds: S1 normal heart sound present, S2 normal heart sound present, no murmurs and no rubs GI: Auscultation: normal bowel sounds Skin: General skin exam: normal color Neuro: General: patient oriented x3 and No confusion Cranial nerves: Yes Equal, round and reactive pupils present Extrem: General: normal to inspection Other: no edema Psych: Appearance: grossly normal Mental Status: mental status grossly normal Objective Data Vital Signs Vital Signs: Vital Signs - 24 hr 04/06/24 12:00 04/06/24 12:00 04/06/24 14:00 Temperature 36.7 C 36.6 C Pulse Rate 90 103 H 79 Respiratory Rate 19 18 Blood Pressure 122/78 128/68 Pulse Oximetry 98 98 Oxygen Delivery 04/06/24 16:00 04/06/24 20:00 04/06/24 20:00 Temperature Pulse Rate 88 84 Respiratory Rate Blood Pressure Pulse Oximetry Oxygen Delivery Room Air 04/06/24 20:00 04/06/24 20:51 04/07/24 00:00 Temperature 36.5 C Pulse Rate 87 76 60 Respiratory Rate 16 Blood Pressure 125/80 Pulse Oximetry 98 Oxygen Delivery 04/07/24 00:00 04/07/24 04:00 04/07/24 06:47 Temperature 36.6 C 36.4 C L Pulse Rate 86 59 L 83 Respiratory Rate 14 14 Blood Pressure 121/83 134/87 Pulse Oximetry 97 97 Oxygen Delivery 04/07/24 09:06 Temperature Pulse Rate 111 H Respiratory Rate Blood Pressure Pulse Oximetry Oxygen Delivery Intake/Output Intake/Output: Intake & Output 04/04/24 04/05/24 04/06/24 04/07/24 23:59 23:59 23:59 23:59 Intake Total 3050 1800 750 150 Output Total 2070 500 Balance 980 1300 750 150 Meds/Results Medications: Active Medications Generic Name Dose Route Start Last Admin Trade Name Freq PRN Reason Stop Dose Admin Acetaminophen 650 mg 04/03/24 13:03 04/06/24 08:24 Acetaminophen 325 Mg Tablet PO 650 mg Q4H PRN Administration Mild Pain (1-3) or Fever Colchicine 0.6 mg 04/04/24 21:00 04/07/24 09:06 Colchicine 0.6 Mg Tablet PO 0.6 mg Q12HR CLEMENCIA Administration Docusate Sodium 100 mg 04/04/24 09:00 04/07/24 09:04 Docusate Sodium 100 Mg Capsule PO 100 mg DAILY CLEMENCIA Administration Doxycycline Hyclate 100 mg 04/04/24 09:00 04/07/24 09:06 Doxycycline Hyclate 100 Mg Tablet PO 100 mg Q12HR CLEMENCIA Administration Enoxaparin Sodium 40 mg 04/04/24 09:00 04/07/24 09:03 Enoxaparin 40 Mg/0.4 Ml Syringe SUB-Q Not Given DAILY CLEMENCIA Guaifenesin 600 mg 04/04/24 09:00 04/07/24 09:07 Guaifenesin 12 Hr 600 Mg Tabcr PO 600 mg Q12HR CLEMENCIA Administration Cefepime HCl 2 gm in 50 mls @ 100 mls/hr 04/04/24 07:45 04/07/24 06:00 Maxipime 2 Gm/Ns 50 Ml IVPB 100 mls/hr Q8HR CLEMENCIA Administration Ibuprofen 600 mg 04/04/24 17:00 04/07/24 09:06 Ibuprofen 600 Mg Tablet PO 600 mg TID CLEMENCIA Administration Levalbuterol HCl 1.25 mg 04/05/24 02:38 Levalbuterol Neb 1.25 Mg/3 Ml INHALATION Q6HRT PRN sob/wheezing Metoprolol Tartrate 12.5 mg 04/05/24 09:00 04/07/24 09:06 Metoprolol Tartrate 12.5 Mg Tablet PO 12.5 mg Q12HR CLEMENCIA Administration Ondansetron HCl 4 mg 04/03/24 13:03 Ondansetron Inj 4 Mg/2 Ml Vial IV PUSH Q4H PRN Nausea Pantoprazole Sodium 80 mg 04/07/24 09:00 04/07/24 09:04 Pantoprazole 40 Mg Tablet PO 80 mg Q12HR CLEMENCIA Administration Perflutren Lipid Microsphere 0 ml 04/07/24 10:45 Perflutren Lipid Microspheres 1.5 Ml Vial Diluted To 10 Ml Total Volume IV PUSH 04/09/24 10:45 ONCE PRN adequate visualization Protocol Prednisone 30 mg 04/07/24 08:00 04/07/24 09:07 Prednisone 10 Mg Tablet PO 30 mg DAILY@0800 CLEMENCIA Administration Radiology Results: ITS Impressions Chest/Abdomen/Pelvis CTA 04/03/24 19:12 IMPRESSION: Mild right pleural effusion, right lower lobe compressive atelectasis Discoid atelectasis in bilateral lower lung williamson Small pericardial effusion Mild cardiomegaly Splenomegaly Normal appendix Venous Doppler Study 04/04/24 09:50 IMPRESSION: Negative bilateral lower extremity venous US. No deep vein thrombosis. Chest X-Ray 04/05/24 10:58 IMPRESSION: 1. Mild airspace opacities in the mid and lower lung zones, likely a combination of mild atelectasis and mild pulmonary edema. 2. Small pleural effusions. 3. Enlargement of the cardiac silhouette, likely secondary to pericardial effusion. Labs Labs: Laboratory Results - last 24 hr 04/06/24 04/07/24 04/07/24 04:45 05:45 05:45 WBC 5.7 RBC 3.03 L Hgb 7.9 L Hct 24.5 L MCV 80.9 MCH 26.1 MCHC 32.2 RDW 14.8 H Plt Count 383 H MPV 10.4 Immature Gran % (Auto) 0.7 H Neut % (Auto) 70.7 Lymph % (Auto) 21.5 [place] % (Auto) 4.8 Eos % (Auto) 2.1 Baso % (Auto) 0.2 Lymph # (Auto) 1.22 [place] # (Auto) 0.3 Eos # (Auto) 0.1 Baso # (Auto) 0.0 Abs Immat Gran (auto) 0.04 H Absolute Neuts (auto) 4.0 Absolute Nucleated RBC 0.000 Nucleated RBC % 0.0 Sodium 139 Potassium 3.2 L Chloride 111 H Carbon Dioxide 25 Anion Gap 3 L BUN 16 Creatinine 0.60 L Estim Creat Clear Calc 150 Estimated GFR > 60 Glucose 88 89 Calcium 8.7 Total Bilirubin 0.6 AST 65 H ALT 62 H Alkaline Phosphatase 113 Lactate Dehydrogenase 187 Total Protein 8.0 Albumin Rheumatoid Factor 17.0 04/07/24 05:45 WBC RBC Hgb Hct MCV MCH MCHC RDW Plt Count MPV Immature Gran % (Auto) Neut % (Auto) Lymph % (Auto) [place] % (Auto) Eos % (Auto) Baso % (Auto) Lymph # (Auto) [place] # (Auto) Eos # (Auto) Baso # (Auto) Abs Immat Gran (auto) Absolute Neuts (auto) Absolute Nucleated RBC Nucleated RBC % Sodium Potassium Chloride Carbon Dioxide Anion Gap BUN Creatinine Estim Creat Clear Calc Estimated GFR Glucose Calcium Total Bilirubin AST ALT Alkaline Phosphatase Lactate Dehydrogenase Total Protein 8.0 Albumin 3.0 L Rheumatoid Factor
[2024-04-07] MEDS: POTASSIUM CHLORIDE 20 MEQ ER TABLET 40 MEQ PO (09:36)
[2024-04-07 10:39] LABS: Immunoglobulin A 512 mg/dL (47-310); Immunoglobulin G 2935 mg/dL (600-1640); Immunoglobulin M 152 mg/dL (50-300)
[2024-04-07 10:46] LABS: Platelet Count Result 366 k/mm3 (150-375)
[2024-04-07 10:56] LABS: INR 1.2; Prothrombin Time 15.5 Seconds (11.1-14.7)
[2024-04-07 10:57] LABS: Partial Thromboplastin Time 28.4 Seconds (22.3-36.8)
--- NOTE | 2024-04-07 11:20 | P.PNIM_ITS ---
Progress Note: A&P Assessment and Plan (1) Acute hypoxic respiratory failure: Code(s): J96.01 - Acute respiratory failure with hypoxia Status: Acute Assessment and Plan: * likely secondary to prolonged pneumonia * currently on 2.5 L nasal cannula * continue to wean O2 for sat greater than 92% * respiratory panel was negative for influenza A and B COVID * RSV negative * continue DuoNeb q.6 hour * blood cultures showing no growth to date on preliminary read * Echo results pending * D-dimer 6.06, CTA negative for PE, Dopplers negative for DVT * Viral panel pending 04/06 * Continue prednisone * Echo showing moderate pericardial effusion with normal EF * Plan for repeat Echo tomorrow per cardiology recommendation (2) Pneumonia: Code(s): J18.9 - Pneumonia, unspecified organism Status: Inactive Assessment and Plan: patient was diagnosed with pneumonia back on this month and was treated with doxycycline and Cefpodoxime in which he completed the course his symptoms did clear. * Chest x-ray showing airspace opacities in the lower lung zones, small right pleural effusion, cardiomegaly * chest/abdomen/ pelvis CTA showed mild right pleural effusion right lobe compressive atelectasis, small pericardial effusion, cardiomegaly, splenomegaly * white blood cell 6.7 * blood cultures are showing no growth to date on preliminaryread * patient was started on cefepime and vancomycin * MRSA was negative, vancomycin discontinued * will start doxycycline for atypical coverage considering prolonged QTC * Repeat EKG showing QTc 410 * respiratory panel was negative for influenza A, influenza B, RSV, COVID. * Urine Legionella, urine strep, mycoplasma pending * Continue Mucinex * Sputum culture ordered * Pep therapy * continue DuoNebs q6h * wean O2 for sat greater than 92% currently on 2 L nasal cannula 04/06 * decrease prednisone to 30 mg daily * Pulmonology consulted * viral panel pending * Urine legionella, urine strep and mycoplasma still pending * continue Pep therapy and Mucinex (3) Pleural effusion on right: Code(s): J90 - Pleural effusion, not elsewhere classified Status: Inactive Assessment and Plan: * CTA showing right small pleural effusion (4) Anemia: Code(s): D64.9 - Anemia, unspecified Status: Acute Assessment and Plan: * hemoglobin 9.4, MCV 79.4 * iron 27 TIBC 223, ferritin 682 * vitamin B12 580, Folate 17.3 * continue to monitor (5) Pericardial effusion: Code(s): I31.39 - Other pericardial effusion (noninflammatory) Status: Acute Assessment and Plan: * CTA showing mild pericardial effusion * initial EKG showed sinus tachycardia with a rate of 130, QTC 564 * Repeat EKG showing ST with QTc of 410-- 04/04 * echocardiogram showing moderate pericardial effusion with normal EF * Continue Ibuprofen and colchicine per cardiology recommendation * cardiology following * Will check NIC and Rheumatoid factor, immunoglobulins (6) Sinus tachycardia: Code(s): R00.0 - Tachycardia, unspecified Status: Acute Assessment and Plan: * likely secondary to pericardial effusion * HR 90-118-- better today * continue Metoprolol 12.5mg started BID Time Spent With Patient Time with patient: Greater than 35 minutes Subjective Date/time seen: 04/07/24 11:20 Interval history: Interval history: This is a 39 year male presented to the ER on 04/03/2024 shortness of breath/dyspnea. He was just seen the and was diagnosed with pneumonia. He was treated with doxycycline and cefpodoxime. he completed the entire course however still having difficulty breathing, cough, chest tightness, loss of appetite, and nausea. Workup in the hospital included a chest x-ray which showed airspace opacities in the lower lung zone, small right pleural effusion, cardiomegaly. Chest/abdomen/ pelvis CTA showed mild right pleural effusion, small pericardial effusion, mild cardiomegaly, splenomegaly. Initial labs showed a white blood cell count of 4.5, hemoglobin 11.2, platelet count 425, sodium 136, AST 64, alk-phos 147, proBNP 482. UA was obtained and showed 1+ urine ketones otherwise negative. MRSA was negative. Respiratory panel was negative for influenza a and B, COVID. C-reactive protein 6.3. Subjective: Patient denies any new complaints today. He states he is feeling overall improved. His coughing is less. Echo results pending. Labs reviewed. Review of Systems Review of Systems: 12 systems were reviewed and are negativ e except for as per HPI. All systems reviewed & are unremarkable except as noted in HPI and below Constitutional: Constitutional: Reports as per HPI and Reports no additional constitutional complaints Eyes: Eyes: Reports as per HPI and Reports no additional eye complaints ENT: Reports system reviewed and no additional complaints, except as documented and Reports as per HPI Cardiovascular: Cardiovascular: Reports as per HPI and Reports no additional cardiovascular complaints Respiratory: Respiratory: Reports as per HPI and Reports no additional respiratory complaints Gastrointestinal: Gastrointestinal: Reports as per HPI and Reports no additional gastrointestinal complaints Genitourinary: Genitourinary: Reports no additional male genitourinary complaints and Reports as per HPI Musculoskeletal: Musculoskeletal: Reports no additional musculoskeletal complaints and Reports as per HPI Integumentary/Breasts: Skin/Breast: Reports system reviewed and no additional complaints, except as docu and Reports as per HPI Neurologic: Reports system reviewed and no additional complaints, except as documented and Reports as per HPI Psychiatric: Psychiatric: Reports no additional psychiatric complaints and Reports as per HPI Exam Narrative: General: In no acute distress, well nourished Cardiac: Normal S1 and S2. No murmur, gallops or friction rubs, peripheral pulses intact. Respiratory: Lungs clear, no adventitious lung sound,weak cough, currently on room air Gastrointestinal: soft, non-distended, non-tender, normoactive bowel sounds. : voiding clear [place]land urine Neuro: Alert and oriented x4 Objective Data Vital Signs Vital Signs: Vital Signs - 24 hr 04/06/24 12:00 04/06/24 12:00 04/06/24 14:00 Temperature 98.0 F 98 F Pulse Rate 90 103 H 79 Respiratory Rate 19 18 Blood Pressure 122/78 128/68 Pulse Oximetry 98 98 Oxygen Delivery 04/06/24 16:00 04/06/24 20:00 04/06/24 20:00 Temperature Pulse Rate 88 84 Respiratory Rate Blood Pressure Pulse Oximetry Oxygen Delivery Room Air 04/06/24 20:00 04/06/24 20:51 04/07/24 00:00 Temperature 97.7 F Pulse Rate 87 76 60 Respiratory Rate 16 Blood Pressure 125/80 Pulse Oximetry 98 Oxygen Delivery 04/07/24 00:00 04/07/24 04:00 04/07/24 06:47 Temperature 97.9 F 97.5 F L Pulse Rate 86 59 L 83 Respiratory Rate 14 14 Blood Pressure 121/83 134/87 Pulse Oximetry 97 97 Oxygen Delivery 04/07/24 09:06 04/07/24 09:17 04/07/24 10:20 Temperature 97.6 F Pulse Rate 111 H 85 Respiratory Rate 17 Blood Pressure 128/72 Pulse Oximetry 99 97 Oxygen Delivery Room Air Intake/Output Intake/Output: Intake & Output 04/04/24 04/05/24 04/06/24 04/07/24 23:59 23:59 23:59 23:59 Intake Total 3050 1800 750 270 Output Total 2070 500 Balance 980 1300 750 270 Meds/Results Medications: Active Medications Generic Name Dose Route Start Last Admin Trade Name Freq PRN Reason Stop Dose Admin Acetaminophen 650 mg 04/03/24 13:03 04/06/24 08:24 Acetaminophen 325 Mg Tablet PO 650 mg Q4H PRN Administration Mild Pain (1-3) or Fever Colchicine 0.6 mg 04/04/24 21:00 04/07/24 09:06 Colchicine 0.6 Mg Tablet PO 0.6 mg Q12HR CLEMENCIA Administration Docusate Sodium 100 mg 04/04/24 09:00 04/07/24 09:04 Docusate Sodium 100 Mg Capsule PO 100 mg DAILY CLEMENCIA Administration Doxycycline Hyclate 100 mg 04/04/24 09:00 04/07/24 09:06 Doxycycline Hyclate 100 Mg Tablet PO 100 mg Q12HR CLEMENCIA Administration Enoxaparin Sodium 40 mg 04/04/24 09:00 04/07/24 09:03 Enoxaparin 40 Mg/0.4 Ml Syringe SUB-Q Not Given DAILY CLEMENCIA Guaifenesin 600 mg 04/04/24 09:00 04/07/24 09:07 Guaifenesin 12 Hr 600 Mg Tabcr PO 600 mg Q12HR CLEMENCIA Administration Cefepime HCl 2 gm in 50 mls @ 100 mls/hr 04/04/24 07:45 04/07/24 06:00 Maxipime 2 Gm/Ns 50 Ml IVPB 100 mls/hr Q8HR CLEMENCIA Administration Ibuprofen 600 mg 04/04/24 17:00 04/07/24 09:06 Ibuprofen 600 Mg Tablet PO 600 mg TID CLEMENCIA Administration Levalbuterol HCl 1.25 mg 04/05/24 02:38 Levalbuterol Neb 1.25 Mg/3 Ml INHALATION Q6HRT PRN sob/wheezing Metoprolol Tartrate 12.5 mg 04/05/24 09:00 04/07/24 09:06 Metoprolol Tartrate 12.5 Mg Tablet PO 12.5 mg Q12HR CLEMENCIA Administration Ondansetron HCl 4 mg 04/03/24 13:03 Ondansetron Inj 4 Mg/2 Ml Vial IV PUSH Q4H PRN Nausea Pantoprazole Sodium 80 mg 04/07/24 09:00 04/07/24 09:04 Pantoprazole 40 Mg Tablet PO 80 mg Q12HR CLEMENCIA Administration Perflutren Lipid Microsphere 0 ml 04/07/24 10:45 Perflutren Lipid Microspheres 1.5 Ml Vial Diluted To 10 Ml Total Volume IV PUSH 04/09/24 10:45 ONCE PRN adequate visualization Protocol Prednisone 30 mg 04/07/24 08:00 04/07/24 09:07 Prednisone 10 Mg Tablet PO 30 mg DAILY@0800 CLEMENCIA Administration Radiology Results: ITS Impressions Chest/Abdomen/Pelvis CTA 04/03/24 19:12 IMPRESSION: Mild right pleural effusion, right lower lobe compressive atelectasis Discoid atelectasis in bilateral lower lung williamson Small pericardial effusion Mild cardiomegaly Splenomegaly Normal appendix Venous Doppler Study 04/04/24 09:50 IMPRESSION: Negative bilateral lower extremity venous US. No deep vein thrombosis. Chest X-Ray 04/05/24 10:58 IMPRESSION: 1. Mild airspace opacities in the mid and lower lung zones, likely a combination of mild atelectasis and mild pulmonary edema. 2. Small pleural effusions. 3. Enlargement of the cardiac silhouette, likely secondary to pericardial effusion. Labs Labs: Laboratory Results - last 24 hr 04/06/24 04/07/24 04/07/24 04:45 05:45 05:45 WBC 5.7 RBC 3.03 L Hgb 7.9 L Hct 24.5 L MCV 80.9 MCH 26.1 MCHC 32.2 RDW 14.8 H Plt Count 383 H MPV 10.4 Immature Gran % (Auto) 0.7 H Neut % (Auto) 70.7 Lymph % (Auto) 21.5 [place] % (Auto) 4.8 Eos % (Auto) 2.1 Baso % (Auto) 0.2 Lymph # (Auto) 1.22 [place] # (Auto) 0.3 Eos # (Auto) 0.1 Baso # (Auto) 0.0 Abs Immat Gran (auto) 0.04 H Absolute Neuts (auto) 4.0 Absolute Nucleated RBC 0.000 Nucleated RBC % 0.0 PT INR APTT Sodium 139 Potassium 3.2 L Chloride 111 H Carbon Dioxide 25 Anion Gap 3 L BUN 16 Creatinine 0.60 L Estim Creat Clear Calc 150 Estimated GFR > 60 Glucose 88 89 Calcium 8.7 Total Bilirubin 0.6 AST 65 H ALT 62 H Alkaline Phosphatase 113 Lactate Dehydrogenase 187 Total Protein 8.0 Albumin Immunoglobulin A 512 H Immunoglobulin G 2935 H Immunoglobulin M 152 04/07/24 04/07/24 05:45 10:39 WBC RBC Hgb Hct MCV MCH MCHC RDW Plt Count 366 MPV 10.0 Immature Gran % (Auto) Neut % (Auto) Lymph % (Auto) [place] % (Auto) Eos % (Auto) Baso % (Auto) Lymph # (Auto) [place] # (Auto) Eos # (Auto) Baso # (Auto) Abs Immat Gran (auto) Absolute Neuts (auto) Absolute Nucleated RBC Nucleated RBC % PT 15.5 H INR 1.2 APTT 28.4 Sodium Potassium Chloride Carbon Dioxide Anion Gap BUN Creatinine Estim Creat Clear Calc Estimated GFR Glucose Calcium Total Bilirubin AST ALT Alkaline Phosphatase Lactate Dehydrogenase Total Protein 8.0 Albumin 3.0 L Immunoglobulin A Immunoglobulin G Immunoglobulin M Quality VTE Prophylaxis VTE prophylaxis: mechanical ordered
[2024-04-07 15:50] LABS: Appearance Pleural Fluid Hazy (Clear); Color Pleural Fluid Yellow (Colorless); Pleural fluid source Pleural fluid
[2024-04-07 15:51] LABS: Lymphocytes Pleural Fluid 14 %; Macrophages Pleural Fluid 10 %; Monocytes Pleural Fluid 2 %; Neutrophils Pleural Fluid 74 % (0-25); Nucleated Cell Pleural Fluid 1774 /uL (0-1000)
--- NOTE | 2024-04-07 17:58 | PM.PNPUL ---
Progress Note: A&P Assessment and Plan (1) Pleural effusion: Code(s): J90 - Pleural effusion, not elsewhere classified Status: Acute Assessment and Plan: Pleurisy with a right pleural effusion with compressive atelectasis, had 160 ml yellow fluid removed today by IR, pH is fine, an the wbc is acceptable. He does not have a pleural space infection. He had pneumonia in Feb, mid March, treated both times, admitted 04/03. He is on room air. stable for discharge. The remainder of the labs can be reviewed as they return later. He also has a pericardial effusion, feels better after starting colchicineand prednisone for pericarditis. His NIC is negative. Rheumatoid factor increased slightly. Pericardial and pleural effusions can be seen in collagen vascular conditions such as lupus but he does not seem to fulfill much criteria for it he has joint pains but these are not in the small joints. He has not had a rash. (2) Acute hypoxic respiratory failure: Code(s): J96.01 - Acute respiratory failure with hypoxia Status: Acute Assessment and Plan: Resolved, now on room air. (3) Community acquired pneumonia: Code(s): J18.9 - Pneumonia, unspecified organism Status: Acute Assessment and Plan: Had COVID Apr 2023, prolonged cough, the pneumonia Feb 2024, Mar 26 2024, and Apr 03; may have failed out patient management, or may have had recurrent infections. He may be immunosuppressed, might have RA, has mildly elevated Rheumatoid Factor, arthralgias in arms and legs, feet for months, petros on waking in the am. He is on oral doxycycline. WBC 5.7 k. No fever. Plan He is stable for discharge, can follow up in our office. He also sees pulmonary [facility], can choose where to go. Please send discharge summary to his [facility] doctor. Subjective Date/time seen: 04/07/24 17:58 Interval history: 04/07/24 follow up: The patient had a thoracentesis with 120 ml of fluid removed from right pleural space. pH is 7.39, normal. The pleural fluid wbc was slightly high, 1774, (normal < 1000) and there was a left shift, 74% neutrophils. He has had a couple of episodes of pneumonia recently, not surprising. He does not have an empyema. The pleural glucose, protein and LDH are send out tests. The micro testing will be a few days. He is on room air, and he is stable to be discharged tomorrow. 04/06/24, new consult; Yosi Pineda is a 39-year-old man admitted 04/03/2024 with worsening shortness of breath, pleuritic chest pain that started on the left chest, migrated to right anterior chest and lower lateral right chest. he had COVID in April 2023, coughed until Sept, improved, was treated at [facility] for pneumonia with amoxicillin, and again treated in [place] ER Mar 26 for pneumonia, had doxycycline and cefpodoxime. He was better for a while, had increased difficulty breathing, cough, chest tightness, loss of appetite, and nausea with pleuritic chest pains. 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 Had COVID in Apr 2023, diagnosed on a home COVID test, treated with Paxlovid. He was not seriously ill never required admission to the hospital. He had a chronic cough for months after COVID, did not improve with Wixela, albuterol and other treatment. During the summer, he saw a farmworker cranberry at the [facility], he had some pulmonary function tests that were overall close to normal, and on repeat, the values normalized. He was feeling better so he canceled the next pulmonary appointment because his coughing stopped. In February, he had new pulmonary problems, was seen in the emergency department at the [facility], put on amoxicillin for pneumonia, He started to have sharp pains in his chest, showed me specifically in the right anterior chest an area that was painful especially with taking a breath in, and this shifted to the right lower lateral ribs. He also had this discomfort in the left anterior chest. This has kept him from taking deep breaths. He has increased discomfort when he is exerting himself, cannot take deep breaths as he would normally. He does tell me that he tries to suppress coughing because taking a breath in is so uncomfortable. He was in the ER @[place] Mar 26, was treated for pneumonia and was told he had a pleural effusion. Since his admission, he has been using a Cornet valve but this does not seem to produce any sputum. Vaccination: He is current with a flu vaccination this season and a COVID booster ROS: He has significant joint pains in his knees, feet, upper arms when he wakes in the morning. For example, reaching to the side table in his hospital room, he says that this will give him intense pains in his upper arm. When he standing in the morning, the bottom of his feet are very tender and his knees are sore. He does not have pain in the small joints in his hands, this does not sound like rheumatoid arthritis. He has an appointment with a rn clinician at the [facility] in July. 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 He has 100% disability. 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 The patient tells me he had a BCG vaccination as part of his deployment readiness prior to being [facility] years ago. DATA * wbc 4.5 K, H/H 11.2/33%; Lactic acid 1.2, normal * 04/04/24 echo: Summary 1. Complete two-dimensional, color flow and Doppler transthoracic echocardiogram is performed. 2. There is a moderate size circumferential pericardial effusion with evidence of early tamponade physiology. 3. Technically difficult study with limited views. * 04/04/24 EKG; sinus tach, poor RWP, new myocardial infarction now present * 04/03/24 CTA chest : IMPRESSION: Mild right pleural effusion, right lower lobe compressive atelectasis Discoid atelectasis in bilateral lower lung williamson Small pericardial effusion Mild cardiomegaly Splenomegaly Normal appendix Review of Systems Review of Systems: All systems reviewed & are unremarkable except as noted in HPI and below Exam Narrative: GEN: Alert, oriented, not in distress. He is on room air. HEENT: pupils are equal, EOMI, symmetrical face; oral membranes moist, Mallampati II airway NECK: Trachea is midline CHEST: Equal air entry, symmetric excursion, clear breath sounds, no pleural rub today. CV: Regular S1S2 no m/g/r ABD : (+) bowel sounds Extremities : no clubbing, cyanosis, or edema; he does not have obvious signs of RA on his hands, no rashes PSYCH: normal thought and speech, gait is not tested Objective Data Vital Signs Vital Signs: Vital Signs - 24 hr 04/06/24 20:00 04/06/24 20:00 04/06/24 20:00 Temperature 36.5 C Pulse Rate 84 87 Respiratory Rate 16 Blood Pressure 125/80 Pulse Oximetry 98 Oxygen Delivery Room Air 04/06/24 20:51 04/07/24 00:00 04/07/24 00:00 Temperature 36.6 C Pulse Rate 76 60 86 Respiratory Rate 14 Blood Pressure 121/83 Pulse Oximetry 97 Oxygen Delivery 04/07/24 04:00 04/07/24 06:47 04/07/24 08:00 Temperature 36.4 C L Pulse Rate 59 L 83 76 Respiratory Rate 14 Blood Pressure 134/87 Pulse Oximetry 97 Oxygen Delivery 04/07/24 09:06 04/07/24 09:17 04/07/24 10:20 Temperature 36.4 C Pulse Rate 111 H 85 Respiratory Rate 17 Blood Pressure 128/72 Pulse Oximetry 99 97 Oxygen Delivery Room Air 04/07/24 12:00 04/07/24 16:00 Temperature 36.5 C Pulse Rate 86 73 Respiratory Rate 18 Blood Pressure 134/89 Pulse Oximetry 98 Oxygen Delivery Intake/Output Intake/Output: Intake & Output 04/04/24 04/05/24 04/06/24 04/07/24 23:59 23:59 23:59 23:59 Intake Total 3050 1800 750 320 Output Total 2070 500 160 Balance 980 1300 750 160 Meds/Results Medications: Active Medications Generic Name Dose Route Start Last Admin Trade Name Freq PRN Reason Stop Dose Admin Acetaminophen 650 mg 04/03/24 13:03 04/06/24 08:24 Acetaminophen 325 Mg Tablet PO 650 mg Q4H PRN Administration Mild Pain (1-3) or Fever Colchicine 0.6 mg 04/04/24 21:00 04/07/24 09:06 Colchicine 0.6 Mg Tablet PO 0.6 mg Q12HR CLEMENCIA Administration Docusate Sodium 100 mg 04/04/24 09:00 04/07/24 09:04 Docusate Sodium 100 Mg Capsule PO 100 mg DAILY CLEMENCIA Administration Doxycycline Hyclate 100 mg 04/04/24 09:00 04/07/24 09:06 Doxycycline Hyclate 100 Mg Tablet PO 100 mg Q12HR CLEMENCIA Administration Enoxaparin Sodium 40 mg 04/04/24 09:00 04/07/24 09:03 Enoxaparin 40 Mg/0.4 Ml Syringe SUB-Q Not Given DAILY [facility] Guaifenesin 600 mg 04/04/24 09:00 04/07/24 09:07 Guaifenesin 12 Hr 600 Mg Tabcr PO 600 mg Q12HR CLEMENCIA Administration Cefepime HCl 2 gm in 50 mls @ 100 mls/hr 04/04/24 07:45 04/07/24 14:12 Maxipime 2 Gm/Ns 50 Ml IVPB 100 mls/hr Q8HR CLEMENCIA Administration Ibuprofen 600 mg 04/04/24 17:00 04/07/24 17:21 Ibuprofen 600 Mg Tablet PO 600 mg TID CLEMENCIA Administration Levalbuterol HCl 1.25 mg 04/05/24 02:38 Levalbuterol Neb 1.25 Mg/3 Ml INHALATION Q6HRT PRN sob/wheezing Metoprolol Tartrate 12.5 mg 04/05/24 09:00 04/07/24 09:06 Metoprolol Tartrate 12.5 Mg Tablet PO 12.5 mg Q12HR CLEMENCIA Administration Ondansetron HCl 4 mg 04/03/24 13:03 Ondansetron Inj 4 Mg/2 Ml Vial IV PUSH Q4H PRN Nausea Pantoprazole Sodium 80 mg 04/07/24 09:00 04/07/24 09:04 Pantoprazole 40 Mg Tablet PO 80 mg Q12HR CLEMENCIA Administration Perflutren Lipid Microsphere 0 ml 04/07/24 10:45 Perflutren Lipid Microspheres 1.5 Ml Vial Diluted To 10 Ml Total Volume IV PUSH 04/09/24 10:45 ONCE PRN adequate visualization Protocol Prednisone 30 mg 04/07/24 08:00 04/07/24 09:07 Prednisone 10 Mg Tablet PO 30 mg DAILY@0800 CLEMENCIA Administration Radiology Results: ITS Impressions Chest/Abdomen/Pelvis CTA 04/03/24 19:12 IMPRESSION: Mild right pleural effusion, right lower lobe compressive atelectasis Discoid atelectasis in bilateral lower lung williamson Small pericardial effusion Mild cardiomegaly Splenomegaly Normal appendix Venous Doppler Study 04/04/24 09:50 IMPRESSION: Negative bilateral lower extremity venous US. No deep vein thrombosis. Chest X-Ray 04/07/24 14:10 IMPRESSION: 1. Small pleural effusions. 2. Airspace opacities at the lung bases, consistent with atelectasis versus pneumonia. 3. Enlargement of the cardiac silhouette again seen, likely secondary to pericardial effusion. Thoracentesis Ultrasound 04/07/24 14:24 IMPRESSION: 1. Successful ultrasound-guided thoracentesis yielding 160 mL of yellow fluid. Labs Labs: Laboratory Results - last 24 hr 04/06/24 04/07/24 04/07/24 04:45 05:45 05:45 WBC 5.7 RBC 3.03 L Hgb 7.9 L Hct 24.5 L MCV 80.9 MCH 26.1 MCHC 32.2 RDW 14.8 H Plt Count 383 H MPV 10.4 Immature Gran % (Auto) 0.7 H Neut % (Auto) 70.7 Lymph % (Auto) 21.5 Barren % (Auto) 4.8 Eos % (Auto) 2.1 Baso % (Auto) 0.2 Lymph # (Auto) 1.22 Barren # (Auto) 0.3 Eos # (Auto) 0.1 Baso # (Auto) 0.0 Abs Immat Gran (auto) 0.04 H Absolute Neuts (auto) 4.0 Absolute Nucleated RBC 0.000 Nucleated RBC % 0.0 PT INR APTT Sodium 139 Potassium 3.2 L Chloride 111 H Carbon Dioxide 25 Anion Gap 3 L BUN 16 Creatinine 0.60 L Estim Creat Clear Calc 150 Estimated GFR > 60 Glucose 88 89 Calcium 8.7 Total Bilirubin 0.6 AST 65 H ALT 62 H Alkaline Phosphatase 113 Lactate Dehydrogenase 187 Total Protein 8.0 Albumin Immunoglobulin A 512 H Immunoglobulin G 2935 H Immunoglobulin M 152 Pleural Fluid Source Pleural Color Pleural Appearance Pleural pH Pleural RBC Pleural Nuc Cells Pleural Neutrophils Pleural Lymphocytes Pleural Monocytes Pleural Macrophages 04/07/24 04/07/24 04/07/24 05:45 10:39 14:03 WBC RBC Hgb Hct MCV MCH MCHC RDW Plt Count 366 MPV 10.0 Immature Gran % (Auto) Neut % (Auto) Lymph % (Auto) Barren % (Auto) Eos % (Auto) Baso % (Auto) Lymph # (Auto) Barren # (Auto) Eos # (Auto) Baso # (Auto) Abs Immat Gran (auto) Absolute Neuts (auto) Absolute Nucleated RBC Nucleated RBC % PT 15.5 H INR 1.2 APTT 28.4 Sodium Potassium Chloride Carbon Dioxide Anion Gap BUN Creatinine Estim Creat Clear Calc Estimated GFR Glucose Calcium Total Bilirubin AST ALT Alkaline Phosphatase Lactate Dehydrogenase Total Protein 8.0 Albumin 3.0 L Immunoglobulin A Immunoglobulin G Immunoglobulin M Pleural Fluid Source Pleural fluid Pleural Color Yellow Pleural Appearance Hazy Pleural pH Pleural RBC 0 Pleural Nuc Cells 1774 H Pleural Neutrophils 74 H Pleural Lymphocytes 14 Pleural Monocytes 2 Pleural Macrophages 10 04/07/24 14:04 WBC RBC Hgb Hct MCV MCH MCHC RDW Plt Count MPV Immature Gran % (Auto) Neut % (Auto) Lymph % (Auto) Barren % (Auto) Eos % (Auto) Baso % (Auto) Lymph # (Auto) Barren # (Auto) Eos # (Auto) Baso # (Auto) Abs Immat Gran (auto) Absolute Neuts (auto) Absolute Nucleated RBC Nucleated RBC % PT INR APTT Sodium Potassium Chloride Carbon Dioxide Anion Gap BUN Creatinine Estim Creat Clear Calc Estimated GFR Glucose Calcium Total Bilirubin AST ALT Alkaline Phosphatase Lactate Dehydrogenase Total Protein Albumin Immunoglobulin A Immunoglobulin G Immunoglobulin M Pleural Fluid Source Pleural Color Pleural Appearance Pleural pH 7.390 Pleural RBC Pleural Nuc Cells Pleural Neutrophils Pleural Lymphocytes Pleural Monocytes Pleural Macrophages
[2024-04-07 23:59] LABS: Source SPUTUM
[2024-04-08] VITALS (7 sets, daily range): BP systolic 119–140; BP diastolic 70–84; PULSE 55–101; RESP 16; TEMP 36.5–36.7; O2SAT 98–99
[2024-04-08 03:23] LABS: Adenovirus DNA Not Detected (Not Detected); Chlamydophila pneumoniae Not Detected (Not Detected); Coronavirus 229E Not Detected (Not Detected); Coronavirus HKU1 Not Detected (Not Detected); Coronavirus NL63 Not Detected (Not Detected); Coronavirus OC43 Not Detected (Not Detected); Human Metapneumovirus Not Detected (Not Detected); Human Parainfluenza Virus 1 Not Detected (Not Detected); Human Parainfluenza Virus 2 Not Detected (Not Detected); Human Parainfluenza Virus 3 Not Detected (Not Detected); Human Parainfluenza Virus 4 Not Detected (Not Detected); Human RSV B Not Detected (Not Detected); Influenza A Not Detected (Not Detected); Influenza B Not Detected (Not Detected); Mycoplasma pneumoniae Not Detected (Not Detected); Rhinovirus/Enterovirus Not Detected (Not Detected)
[2024-04-08] MEDS: CEFEPIME 2 GM/NS 50 ML 2 GM/50 ML BAG IVPB ×2 (05:36→13:49)
[2024-04-08 06:04] LABS: Basophils Percent Auto 0.4 % (0.2-1.2); Eosinophils Absolute Auto 0.1 K/mm3 (0-0.3); Hematocrit 27.3 % (42.0-52.0); Hemoglobin 8.8 g/dL (14.0-18.0); Immature Granulocyte Absolute 0.03 K/mm3 (0.00-0.031); Immature Granulocyte Percent A 0.7 % (0-0.5); Lymphocytes Absolute Auto 1.15 K/mm3 (0.9-3.2); Lymphocytes Percent Auto 25.3 % (18.3-44.2); Mean Corpuscular HGB Conc 32.2 g/dl (32-36); Mean Corpuscular Volume 80.8 fl (80-100); Mean Platelet Volume 10.1 fl (7.4-10.4); Monocytes Absolute Auto 0.3 K/mm3 (0.1-0.6); Monocytes Percent Auto 5.5 % (2.6-8.5); Neutrophils Percent Auto 66.1 % (45.5-73.1); Platelet Count Result 431 k/mm3 (150-375); Red Blood Count 3.38 M/mm3 (4.6-6.20); Red Cell Distribution Width 14.6 % (11.5-14.5); White Blood Count 4.6 K/mm3 (4.5-10.0)
[2024-04-08 06:14] LABS: Alanine Aminotransferase 66 U/L (6-50); Albumin Level 3.1 g/dL (3.5-5.1); Alkaline Phosphatase 110 U/L (38-126); Anion Gap 3 mmol/L (4-12); Aspartate Amino Transferase 62 U/L (17-59); Bilirubin,Total 0.6 mg/dL (0.2-1.3); Blood Urea Nitrogen 17 mg/dL (9-20); Calcium 8.7 mg/dL (8.4-10.2); Carbon Dioxide 25 mmol/L (22-30); Chloride 113 mmol/L (98-107); Estimated CRCL calculation 150 ml/min; Estimated Glomerular Filt Rate > 60; Glucose 82 mg/dL (65-110); Potassium 3.4 mmol/L (3.4-5.0); Sodium 141 mmol/L (137-145)
--- NOTE | 2024-04-08 08:37 | P.DS_ITS ---
DS: Admitting Diagnosis Discharge Date 04/08/24 Admitting Diagnosis Pneumonia Pleural effusion on right Anemia Cardiomegaly Tachycardia Fever Elevated liver enzymes Pericardial effusion DS: Discharge Diagnosis Discharge Diagnosis (1) Acute hypoxic respiratory failure: Code(s): J96.01 - Acute respiratory failure with hypoxia Status: Acute (2) Pneumonia: Code(s): J18.9 - Pneumonia, unspecified organism Status: Inactive (3) Pleural effusion on right: Code(s): J90 - Pleural effusion, not elsewhere classified Status: Inactive (4) Anemia: Code(s): D64.9 - Anemia, unspecified Status: Acute (5) Pericardial effusion: Code(s): I31.39 - Other pericardial effusion (noninflammatory) Status: Acute (6) Sinus tachycardia: Code(s): R00.0 - Tachycardia, unspecified Status: Acute DS: Summary Hospital Course Reason for hospitalization: Pneumonia Pleural effusion on right Anemia Cardiomegaly Tachycardia Fever Elevated liver enzymes Pericardial effusion Hospital Course: This is a 39 year male presented to the ER on 04/03/2024 shortness of breath/dyspnea. He was just seen the and was diagnosed with pneumonia. He was treated with doxycycline and cefpodoxime. he completed the entire course however still having difficulty breathing, cough, chest tightness, loss of appetite, and nausea. Workup in the hospital included a chest x-ray which showed airspace opacities in the lower lung zone, small right pleural effusion, cardiomegaly. Chest/abdomen/ pelvis CTA showed mild right pleural effusion, small pericardial effusion, mild cardiomegaly, splenomegaly. Initial labs showed a white blood cell count of 4.5, hemoglobin 11.2, platelet count 425, sodium 136, AST 64, alk-phos 147, proBNP 482. UA was obtained and showed 1+ urine ketones otherwise negative. MRSA was negative. Respiratory panel was negative for influenza a and B, COVID. C-reactive protein 6.3. Patient had an echocardiogram done on 04/04/2024 which shown normal LV systolic function with an estimated EF of 50-55%, moderate size circumferential pericardial effusion with evidence of early tamponade physiology. Pulmonology and Cardiology were consulted. Patient was placed on colchicine and 600 mg ibuprofen for the pericardial effusion and early tamponade. He was also placed on metoprolol 12.5 mg b.i.d. to help with tachycardia due to the pericardial effusion. Pulmonology also seen patient and did a thoracentesis which they sent off for cytology. PH was normal, neutrophils were high. Full Viral panel was negative. We also checked an Rh factor which came back at 17.0, NIC was positive with an NIC titer of 1:640, immunoglobulin a 512, immunoglobulin G 2935, immunoglobulin M 152. A 2nd echocardiogram was obtained on 04/07/2024 which no longer showed any early echo cardiographic signs of tamponade, there is still a moderate pericardial effusion that appears slightly decreased in size compared to previous. He will need to continue with the colchicine and the ibuprofen as prescribed. He will also need to finish his course of antibiotics and then follow up with Cardiology in 2 weeks. He does have care at the [facility] and will seek out a heavy rail train operator and our concierge to follow-up with considering his findings are likely autoimmune related. His vital signs are stable, he is currently on room air, he is afebrile. He is stable for discharge at this time. Final diagnosis: Acute hypoxic respiratory failure due to community-acquired pneumonia and pericardial effusion Status at Discharge Cognitive/behavioral status at discharge: Alert oriented x4 Functional status at discharge: independent ambulation Overall status at discharge: patient is progressing back to baseline Time Spent with Patient Time attestation: Total time spent providing and/or coordinating discharge services: Time spent: Greater than 30 minutes Exam Narrative: General: In no acute distress, well nourished Cardiac: Normal S1 and S2. No murmur, gallops or friction rubs, peripheral pulses intact. Respiratory: Lungs clear, no adventitious lung sound,weak cough, currently on room air Gastrointestinal: soft, non-distended, non-tender, normoactive bowel sounds. : voiding clear holland urine Neuro: Alert and oriented x4 DS: Data Data Completed and Pending Completed studies during hospitalization: Thoracentesis ultrasound Chest x-ray x 3 Venous Doppler study Chest/abdomen/pelvis CTA Pending studies at discharge: Pleural fluid culture and Gram stain Blood cultures Labs on day of discharge: Labs from last 24 hours 04/08/24 04/07/24 04/07/24 05:31 14:04 14:03 WBC 4.6 RBC 3.38 L Hgb 8.8 L Hct 27.3 L MCV 80.8 MCH 26.0 MCHC 32.2 RDW 14.6 H Plt Count 431 H MPV 10.1 Immature Gran % (Auto) 0.7 H Neut % (Auto) 66.1 Lymph % (Auto) 25.3 [place] % (Auto) 5.5 Eos % (Auto) 2.0 Baso % (Auto) 0.4 Lymph # (Auto) 1.15 [place] # (Auto) 0.3 Eos # (Auto) 0.1 Baso # (Auto) 0.0 Abs Immat Gran (auto) 0.03 Absolute Neuts (auto) 3.0 Absolute Nucleated RBC 0.000 Nucleated RBC % 0.0 PT INR APTT Sodium 141 Potassium 3.4 Chloride 113 H Carbon Dioxide 25 Anion Gap 3 L BUN 17 Creatinine 0.60 L Estim Creat Clear Calc 150 Estimated GFR > 60 Glucose 82 Calcium 8.7 Total Bilirubin 0.6 AST 62 H ALT 66 H Alkaline Phosphatase 110 Total Protein 8.0 Albumin 3.1 L Immunoglobulin A Immunoglobulin G Immunoglobulin M Pleural Fluid Source Pleural fluid Pleural Color Yellow Pleural Appearance Hazy Pleural pH 7.390 Pleural RBC 0 Pleural Nuc Cells 1774 H Pleural Neutrophils 74 H Pleural Lymphocytes 14 Pleural Monocytes 2 Pleural Macrophages 10 Pleural Total Protein Pleural LDH Pleural Glucose Nasal RSV Type A (PCR) Nasal RSV Type B (PCR) Chlamy pneumoniae PCR Adenovirus DNA Human Bocavirus (BRINDA) Coronavirus Type OC43 Coronavirus Type HKU1 Coronavirus Type 229E Coronavirus Type NL63 Human Metapneumovir PCR Influenza A (PCR) Influenza A (H1) RNA Influenza A (H3) PCR M. pneumoniae Source M. pneumoniae DNA M.pneumoniae DNA (PCR) Parainfluenza PCR Parainfluenza 2 (PCR) Parainfluenza 3 RNA (PCR) Parainfluenza 4 (PCR) Rhino/Enterovirus (BRINDA) Influenza Type B (PCR) Misc Test Comment 04/07/24 04/07/24 04/06/24 13:45 10:39 04:45 WBC RBC Hgb Hct MCV MCH MCHC RDW Plt Count 366 MPV 10.0 Immature Gran % (Auto) Neut % (Auto) Lymph % (Auto) [place] % (Auto) Eos % (Auto) Baso % (Auto) Lymph # (Auto) [place] # (Auto) Eos # (Auto) Baso # (Auto) Abs Immat Gran (auto) Absolute Neuts (auto) Absolute Nucleated RBC Nucleated RBC % PT 15.5 H INR 1.2 APTT 28.4 Sodium Potassium Chloride Carbon Dioxide Anion Gap BUN Creatinine Estim Creat Clear Calc Estimated GFR Glucose Calcium Total Bilirubin AST ALT Alkaline Phosphatase Total Protein Albumin Immunoglobulin A 512 H Immunoglobulin G 2935 H Immunoglobulin M 152 Pleural Fluid Source Pleural Color Pleural Appearance Pleural pH Pleural RBC Pleural Nuc Cells Pleural Neutrophils Pleural Lymphocytes Pleural Monocytes Pleural Macrophages Pleural Total Protein Pending Pleural LDH Pending Pleural Glucose Pending Nasal RSV Type A (PCR) Nasal RSV Type B (PCR) Chlamy pneumoniae PCR Adenovirus DNA Human Bocavirus (BRINDA) Coronavirus Type OC43 Coronavirus Type HKU1 Coronavirus Type 229E Coronavirus Type NL63 Human Metapneumovir PCR Influenza A (PCR) Influenza A (H1) RNA Influenza A (H3) PCR M. pneumoniae Source M. pneumoniae DNA M.pneumoniae DNA (PCR) Parainfluenza PCR Parainfluenza 2 (PCR) Parainfluenza 3 RNA (PCR) Parainfluenza 4 (PCR) Rhino/Enterovirus (BRINDA) Influenza Type B (PCR) Misc Test Comment 04/05/24 04/04/24 07:36 17:09 WBC RBC Hgb Hct MCV MCH MCHC RDW Plt Count MPV Immature Gran % (Auto) Neut % (Auto) Lymph % (Auto) [place] % (Auto) Eos % (Auto) Baso % (Auto) Lymph # (Auto) [place] # (Auto) Eos # (Auto) Baso # (Auto) Abs Immat Gran (auto) Absolute Neuts (auto) Absolute Nucleated RBC Nucleated RBC % PT INR APTT Sodium Potassium Chloride Carbon Dioxide Anion Gap BUN Creatinine Estim Creat Clear Calc Estimated GFR Glucose Calcium Total Bilirubin AST ALT Alkaline Phosphatase Total Protein Albumin Immunoglobulin A Immunoglobulin G Immunoglobulin M Pleural Fluid Source Pleural Color Pleural Appearance Pleural pH Pleural RBC Pleural Nuc Cells Pleural Neutrophils Pleural Lymphocytes Pleural Monocytes Pleural Macrophages Pleural Total Protein Pleural LDH Pleural Glucose Nasal RSV Type A (PCR) Not detected Nasal RSV Type B (PCR) Not detected Chlamy pneumoniae PCR Not detected Adenovirus DNA Not detected Human Bocavirus (BRINDA) Not detected Coronavirus Type OC43 Not detected Coronavirus Type HKU1 Not detected Coronavirus Type 229E Not detected Coronavirus Type NL63 Not detected Human Metapneumovir PCR Not detected Influenza A (PCR) Not detected Influenza A (H1) RNA Not detected Influenza A (H3) PCR Not detected M. pneumoniae Source Sputum M. pneumoniae DNA Not detected M.pneumoniae DNA (PCR) Not detected Parainfluenza PCR Not detected Parainfluenza 2 (PCR) Not detected Parainfluenza 3 RNA (PCR) Not detected Parainfluenza 4 (PCR) Not detected Rhino/Enterovirus (BRINDA) Not detected Influenza Type B (PCR) Not detected Misc Test Comment see note Preliminary micro results at discharge 04/07/24 13:45 Acid Fast Bacilli Culture - Preliminary Pleural Fluid 04/03/24 16:14 Blood Culture - Preliminary Blood 04/03/24 16:14 Blood Culture - Preliminary Blood Procedures/Treatments: Thoracentesis Discharge Plan Discharge Attending physician on discharge: Marques Bain Consulting providers: Andre Caballero; Myriam Riddle Discharging Clinician: Nasrin Thorne Anticipated Discharge Date/Time: 04/08/24 08:16 Patient Disposition: Home, Self-Care Activity: as tolerated Diet: as tolerated and heart healthy Discharge Instructions: * Finish all of your antibiotic as directed even if you are feeling better * Finish all of your steroid as directed * You were placed on Ibuprofen and colchicine by the cardiology team for your pericarditis and pericardial effusion. Continue taking this medication for another 10 full days. * Follow up with Cardiology in 2 weeks * Follow up with your heavy rail train operator at the [facility] in 2 weeks, you do not have to follow up with our pulmonology team * So far your viral panel and respiratory panel was negative. You had a thoracentesis done yesterday that yielded 160 ml of fluid that was sent for additional labs--awaiting full results * Blood cultures have been negative to date on preliminary read. We will call if that changes. * We are awaiting results of autoimmune testing, follow up with Cardiology on this. * You may need to see a Social Service Coordinator for further work up of Autoimmune disorders. -[facility] [phone] -or call your local [place] for a listing of Rheumatologists that serve the area. * Your liver enzymes were slightly elevated....likely due to the use of colchicine. Get your lab rechecked in 2 weeks to make sure your liver enzymes normalized. Patient Instructions: Antibiotic Form, Pain Management (DC) Patient Language: French Stand Alone Forms: General Discharge Information Follow-up/Referrals: Andre Caballero MD [Physician] - 2 Weeks Discharge Medications: New prednisone 10 mg tablet 10 mg PO DAILY Qty: 18 0RF Rx Instructions: Take 30 mg (3 tabs) for next 3 days, Then decrease to 20 mg (2 tabs) for next 3 days, Then decrease to 10 my (1 tab) for next 3 days, Then discontinue colchicine [Colcrys] 0.6 mg Tablet 0.6 mg PO Q12HR Qty: 20 0RF doxycycline hyclate 100 mg Tablet 100 mg PO Q12HR Qty: 8 0RF amoxicillin-pot clavulanate 875-125 mg tablet 1 tablet PO Q12H Qty: 8 0RF ibuprofen 600 mg Tablet 600 mg PO TID Qty: 30 0RF Other Ambulatory Orders: Comprehensive Metabolic Panel (Routine) Timeframe: 1 Week Location: Determined by Patient Ordered By: Nasrin Thorne Date of admission: 04/03/24 13:04 Primary Care Provider: [facility],[place] Admitting Provider: Gamaliel Nicholas Attending physician on admission: Nasrin Thorne Condition: Improved Quality VTE Prophylaxis VTE prophylaxis: mechanical ordered Hospitalist MIPS Heart Failure (Exclusion) Patient has history of Heart Transplant or Left Ventricular Assistive Device?: No IF YES, STOP HERE Heart Failure (Qualifier) Patient has current or prior documentation of LVEF less than or equal to 40%, or mod/servere depressed LVSF?: No IF NO, STOP HERE
[2024-04-08] MEDS: DOXYCYCLINE HYCLATE 100 MG TABLET PO (08:59)
[2024-04-08] MEDS: guaiFENesin 12 HR 600 MG TABCR PO (08:59)
[2024-04-08] MEDS: COLCHICINE 0.6 MG TABLET PO (08:59)
[2024-04-08] MEDS: IBUPROFEN 600 MG TABLET PO ×2 (08:59→13:49)
[2024-04-08] MEDS: PANTOPRAZOLE 40 MG TABLET 80 MG PO (08:59)
[2024-04-08] MEDS: predniSONE 10 MG TABLET 30 MG PO (08:59)
[2024-04-08] MEDS: DOCUSATE SODIUM 100 MG CAPSULE PO (08:59)
[2024-04-08] MEDS: ENOXAPARIN 40 MG/0.4 ML SYRINGE SUB-Q (09:00)
[2024-04-08 10:28] LABS: RBC Pleural Fluid < 2000 /uL (0-10000)
[2024-04-08 13:18] LABS: Anti Nuclear Antibody Pattern Nuclear, Homogeneous
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
--- NOTE | 2024-04-08 17:02 | PM.PNCARD ---
Progress Note: A&P Assessment and Plan (1) Sinus tachycardia: Code(s): R00.0 - Tachycardia, unspecified Status: Acute (2) Acute hypoxic respiratory failure: Code(s): J96.01 - Acute respiratory failure with hypoxia Status: Acute (3) Pericardial effusion: Code(s): I31.39 - Other pericardial effusion (noninflammatory) Status: Acute Plan 39-year-old male who presented with months of fever, shortness of breath, pleuritic chest pain, and orthopnea admitted for further evaluation. Pericarditis with Pericardial effusion -repeat transthoracic echocardiogram shows mild improvement in pericardial effusion size -there is also resolution of echocardiographic evidence of early tamponade -I have discussed with the patient to stop the ibuprofen after next week -continue colchicine 0.6 mg twice a day for 3 months -patient will follow-up at the [facility] Sinus tachycardia -has significantly improved with anti-inflammatory medications -can continue his metoprolol for now and most likely will discontinue outpatient Acute hypoxic respiratory failure -has improved with anti-inflammatory therapy Subjective Date/time seen: 04/08/24 17:02 Interval history: Patient feels well today and has no questions. Review of Systems Cardiovascular: Cardiovascular: Reports as per HPI Respiratory: Respiratory: Reports as per HPI Exam Const: General: comfortable HENMT: Mouth: Yes moist mucous membranes Eyes: EOM: EOMs intact bilaterally Neck: Neck: no JVD Resp: Effort & Inspection: normal respiratory effort Auscultation: clear to auscultation bilaterally Cardio: Rate: regular rate Rhythm: regular rhythm GI: GI Palp: Yes Soft to palpation Neuro: Speech: normal speech Objective Data Vital Signs Vital Signs: Vital Signs - 24 hr 04/07/24 20:00 04/07/24 20:00 04/07/24 20:00 Temperature 36.4 C Pulse Rate 74 74 75 Respiratory Rate 18 16 Blood Pressure 115/80 Pulse Oximetry 98 97 Oxygen Delivery Room Air Fraction of Inspired Oxygen 21 04/08/24 00:00 04/08/24 01:00 04/08/24 04:00 Temperature 36.5 C Pulse Rate 58 L 66 55 L Respiratory Rate 16 Blood Pressure 119/84 Pulse Oximetry 99 Oxygen Delivery Fraction of Inspired Oxygen 04/08/24 07:27 04/08/24 08:00 04/08/24 08:00 Temperature 36.6 C 36.6 C Pulse Rate 77 75 79 Respiratory Rate 16 16 Blood Pressure 137/84 132/82 Pulse Oximetry 99 98 Oxygen Delivery Fraction of Inspired Oxygen 04/08/24 08:00 04/08/24 12:00 04/08/24 12:00 Temperature 36.7 C Pulse Rate 84 101 H Respiratory Rate 16 Blood Pressure 140/70 Pulse Oximetry 99 Oxygen Delivery Room Air Fraction of Inspired Oxygen 04/08/24 16:00 Temperature Pulse Rate 80 Respiratory Rate Blood Pressure Pulse Oximetry Oxygen Delivery Fraction of Inspired Oxygen Intake/Output Intake/Output: Intake & Output 04/05/24 04/06/24 04/07/24 04/08/24 23:59 23:59 23:59 23:59 Intake Total 1800 750 660 690 Output Total 500 160 Balance 1300 750 500 690 Meds/Results Radiology Results: ITS Impressions Chest/Abdomen/Pelvis CTA 04/03/24 19:12 IMPRESSION: Mild right pleural effusion, right lower lobe compressive atelectasis Discoid atelectasis in bilateral lower lung williamson Small pericardial effusion Mild cardiomegaly Splenomegaly Normal appendix Venous Doppler Study 04/04/24 09:50 IMPRESSION: Negative bilateral lower extremity venous US. No deep vein thrombosis. Chest X-Ray 04/07/24 14:10 IMPRESSION: 1. Small pleural effusions. 2. Airspace opacities at the lung bases, consistent with atelectasis versus pneumonia. 3. Enlargement of the cardiac silhouette again seen, likely secondary to pericardial effusion. Thoracentesis Ultrasound 04/07/24 14:24 IMPRESSION: 1. Successful ultrasound-guided thoracentesis yielding 160 mL of yellow fluid. Labs Labs: Laboratory Results - last 24 hr 04/04/24 04/05/24 04/06/24 17:09 07:36 04:46 WBC RBC Hgb Hct MCV MCH MCHC RDW Plt Count MPV Immature Gran % (Auto) Neut % (Auto) Lymph % (Auto) [place] % (Auto) Eos % (Auto) Baso % (Auto) Lymph # (Auto) [place] # (Auto) Eos # (Auto) Baso # (Auto) Abs Immat Gran (auto) Absolute Neuts (auto) Absolute Nucleated RBC Nucleated RBC % Sodium Potassium Chloride Carbon Dioxide Anion Gap BUN Creatinine Estim Creat Clear Calc Estimated GFR Glucose Calcium Total Bilirubin AST ALT Alkaline Phosphatase Total Protein Albumin Pleural RBC Nasal RSV Type A (PCR) Not detected Nasal RSV Type B (PCR) Not detected NIC Screen Positive A NIC Titer 1:640 H NIC Pattern Nuclear, homogeneous A Chlamy pneumoniae PCR Not detected Adenovirus DNA Not detected Human Bocavirus (BRINDA) Not detected Coronavirus Type OC43 Not detected Coronavirus Type HKU1 Not detected Coronavirus Type 229E Not detected Coronavirus Type NL63 Not detected Human Metapneumovir PCR Not detected Influenza A (PCR) Not detected Influenza A (H1) RNA Not detected Influenza A (H3) PCR Not detected M. pneumoniae Source Sputum M. pneumoniae DNA Not detected M.pneumoniae DNA (PCR) Not detected Parainfluenza PCR Not detected Parainfluenza 2 (PCR) Not detected Parainfluenza 3 RNA (PCR) Not detected Parainfluenza 4 (PCR) Not detected Rhino/Enterovirus (BRINDA) Not detected SARS-CoV-2 RNA (RT-PCR) Not detected Influenza Type B (PCR) Not detected Misc Test Comment see note 04/07/24 04/08/24 14:03 05:31 WBC 4.6 RBC 3.38 L Hgb 8.8 L Hct 27.3 L MCV 80.8 MCH 26.0 MCHC 32.2 RDW 14.6 H Plt Count 431 H MPV 10.1 Immature Gran % (Auto) 0.7 H Neut % (Auto) 66.1 Lymph % (Auto) 25.3 [place] % (Auto) 5.5 Eos % (Auto) 2.0 Baso % (Auto) 0.4 Lymph # (Auto) 1.15 [place] # (Auto) 0.3 Eos # (Auto) 0.1 Baso # (Auto) 0.0 Abs Immat Gran (auto) 0.03 Absolute Neuts (auto) 3.0 Absolute Nucleated RBC 0.000 Nucleated RBC % 0.0 Sodium 141 Potassium 3.4 Chloride 113 H Carbon Dioxide 25 Anion Gap 3 L BUN 17 Creatinine 0.60 L Estim Creat Clear Calc 150 Estimated GFR > 60 Glucose 82 Calcium 8.7 Total Bilirubin 0.6 AST 62 H ALT 66 H Alkaline Phosphatase 110 Total Protein 8.0 Albumin 3.1 L Pleural RBC < 2000 Nasal RSV Type A (PCR) Nasal RSV Type B (PCR) NIC Screen NIC Titer NIC Pattern Chlamy pneumoniae PCR Adenovirus DNA Human Bocavirus (BRINDA) Coronavirus Type OC43 Coronavirus Type HKU1 Coronavirus Type 229E Coronavirus Type NL63 Human Metapneumovir PCR Influenza A (PCR) Influenza A (H1) RNA Influenza A (H3) PCR M. pneumoniae Source M. pneumoniae DNA M.pneumoniae DNA (PCR) Parainfluenza PCR Parainfluenza 2 (PCR) Parainfluenza 3 RNA (PCR) Parainfluenza 4 (PCR) Rhino/Enterovirus (BRINDA) SARS-CoV-2 RNA (RT-PCR) Influenza Type B (PCR) Misc Test Comment
[2024-04-08 19:18] LABS: Pneumococcal Antigen Urine NOT DETECTED
[2024-04-09 21:39] LABS: Parathyroid Hormone Related Pr 21 pg/mL (11-20)
--- OUTSIDE RECORDS SUMMARY | 2024-04-10 06:51 | XMS_ITS | Continuity of Care Document ---
Author Name [facility] Organization [facility] Care Team Providers Care Front End Alignment Specialist Name Role Phone [facility] Unavailable Unavailable Problems [...] 17 Condition DoD Allergic rhinitis Active Condition [facility] Chronic back pain Active Condition [facility] Exposure to potentially hazardous substance Active Condition [facility] Insomnia Active Condition [facility] Major depressive disorder Active Condition [facility] Obesity Active Condition [facility] Posttraumatic stress disorder Active Condition [facility] Sleep apnea Active Condition [facility] Steatosis of liver Active Condition [facility] dermatophytosis tinea cruris perianal area Active Condition [facility] Aftercare Active Condition DoD skin abscess Inactive Condition DoD Abdomen Mass (___ cm) Active Condition [facility] abdominal abscess Inactive Condition DoD tendonitis shoulder Active Condition [facility] epididymitis left Inactive Condition DoD testicular pain Active Condition DoD esophagitis Active Condition [facility] visit for: administrative purpose Inactive Condition DoD pharyngitis acute Inactive Condition [facility] assessment of patient condition work-related Inactive Condition ASSESSMENT OF PATIENT CONDITION WORK-RELATED (INITIAL POST-DEPLOYME NT ASSESSMENT: DOCUMENTED ON [id number]): 27 y/o M 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 No complaints/co ncerns. No SI/HI. No s/s TBI/PTSD. 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 [facility] visit for: services physical pre-deployment Inactive Condition DoD Need For Prophylactic Measure Inactive Condition DoD skin disorders Inactive Condition DoD pain in upper arms Active Condition [facility] limb pain Active Condition [facility] Other Physical Therapy Active Condition [facility] joint pain, localized in the right shoulder Active Condition [facility] urticaria Active Condition [facility] joint pain, localized in the shoulder Inactive Condition [facility] upper respiratory infection Inactive Condition [facility] visit for: services physical Inactive Condition [facility] lumbago Inactive Condition [facility] acute lymphadenitis inguinal left Inactive Condition [facility] lower back pain Inactive Condition [facility] astigmatism Inactive Condition Mild. Optional Rx given. [facility] Diagnosis: ICD-10-CM Z63.0 Problems in relationship with spouse or partner Active Diagnosis [facility]IE MORAL[facility] Diagnosis: ICD-10-CM Z53.21 Proc/trtmt not crd out d/t pt lv bef seen by [facility] Active Diagnosis [facility] Diagnosis: ICD-10-CM G56.00 Carpal tunnel syndrome, unspecified upper limb Active Diagnosis [facility] Diagnosis: ICD-10-CM G56.03 Carpal tunnel syndrome, bilateral upper limbs Active Diagnosis [facility] Diagnosis: ICD-10-CM Z71.9 Counseling, unspecified Active Diagnosis [facility] Diagnosis: ICD-10-CM R07.9 Chest pain, unspecified Active Diagnosis [facility] Diagnosis: ICD-10-CM G47.00 Insomnia, unspecified Active Diagnosis [facility] Diagnosis: ICD-10-CM R49.8 Other voice and resonance disorders Active Diagnosis [facility] Diagnosis: ICD-10-CM 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 Diagnosis: ICD-10-CM R05.3 Chronic cough Active Diagnosis [facility] Diagnosis: ICD-10-CM R05.9 Cough, unspecified Active Diagnosis [facility] Diagnosis: ICD-10-CM Z23 Encounter for immunization Active Diagnosis [facility] Diagnosis: ICD-10-CM M79.643 Pain in unspecified hand Active Diagnosis [facility]ORT[facility] Eli [facility] Diagnosis: ICD-10-CM F43.10 Post-traumatic stress disorder, unspecified Active Diagnosis [facility] Diagnosis: ICD-10-CM H60.92 Unspecified otitis externa, left ear Active Diagnosis [facility] Diagnosis: ICD-10-CM R94.5 Abnormal results of liver function studies Active Diagnosis [facility] Diagnosis: ICD-10-CM R05.2 Subacute cough Active Diagnosis [facility] Diagnosis: ICD-10-CM U07.1 COVID-19 Active Diagnosis [facility] Diagnosis: ICD-10-CM Z91.89 Oth personal risk factors, not elsewhere classified Active Diagnosis [facility] Diagnosis: ICD-10-CM F43.20 Adjustment disorder, unspecified Active Diagnosis [facility] Diagnosis: ICD-10-CM K76.0 Fatty (change of) liver, not elsewhere classified Active Diagnosis [facility] Diagnosis: ICD-10-CM G47.36 Sleep related hypoventilation in conditions classd elswhr Active Diagnosis [facility] Medications Combined list of outpatient medications from Department of Defense and [facility] Affairs facilities.Medications provided include 1) outpatient medications [...] . RESPIR ATORY (INHAL ATION) ACTIVE 10/14/2024 [id number] SERA NEGRETE RRI 2023 1 [facility] ALBUTEROL SO4 90MCG/ACTUA T (CFC-F) INHL,ORAL,8 .5GM INHALE 2 PUFFS ORAL INHALATI ON FOUR TIMES A DAY NEEDED FOR COUGH. SHAKE WELL. RINSE MOUTHPIE CE FREQUENT LY TO PREVENT CLOGGING . RESPIR ATORY (INHAL ATION) 08/13/2023 [id number] 4 AKHIL MORTON AMCYNDID T 2023 1 [facility] AMOXICILLIN TRIHYDRATE 875MG/CLAVU LANATE K 125MG TAB TAKE 1 TABLET BY MOUTH EVERY 12 HOURS TAKE WITH FOOD. TAKE UNTIL GONE UNLESS OTHERWIS E DIRECTED . ORAL ACTIVE 05/08/2024 [id number] 4 MAYA HERCULES M 2023 8 [facility] AMOXICILLIN TRIHYDRATE 875MG/CLAVU LANATE K 125MG TAB TAKE 1 TABLET BY MOUTH TWICE A DAY TAKE WITH FOOD. TAKE UNTIL GONE UNLESS OTHERWIS E DIRECTED . ORAL 04/04/2024 [id number] 4 ISIS,INA L S 2023 14 [facility] Benzonatate (Tessalon Perle) Capsule Conventiona l 100 mg Oral TAKE ONE CAPSULE BY MOUTH THREE TIMES A DAY NEEDED Active 04/17/2024 [id number] 4 KIRIT LUDWIG 2023 30 [facility] BENZONATATE 100MG CAP TAKE ONE CAPSULE BY MOUTH THREE TIMES A DAY NEEDED ORAL DISCONT INUED (EDIT) 04/17/2024 [id number] 4 WINNIE LUDWIG D 2023 30 [facility] BENZONATATE 200MG CAP TAKE ONE CAPSULE BY MOUTH THREE TIMES A DAY NEEDED FOR COUGH ORAL ACTIVE 03/17/2025 [id number] 4 SELENEAKHIL T 2023 90 [facility] BENZONATATE 200MG CAP TAKE ONE CAPSULE BY MOUTH THREE TIMES A DAY NEEDED FOR COUGH ORAL DISCONT INUED 05/20/2024 [id number] 4 SELENEAKHIL T 2023 90 [facility] CETIRIZINE HCL 10MG TAB TAKE ONE TABLET BY MOUTH ONCE A DAY FOR ALLERGY SYMPTOMS ORAL 12/25/2023 [id number] 4 SELENEAKHIL AMLEILANI T 2023 30 [facility] CETIRIZINE HCL 10MG TAB TAKE ONE TABLET BY MOUTH ONCE A DAY FOR ALLERGY SYMPTOMS ORAL 06/19/2023 [id number] 4 AKHIL MORTON AMMAD T [address] [facility] DICLOFENAC NA 1% GEL,TOP APPLY 2 GM TO AFFECTED AREA(S) FOUR TIMES A DAY NEEDED FOR PAIN DO NOT EXCEED MORE THAN 16 GRAMS DAILY TO ANY LOWER EXTREMIT Y JOINT. NOT MORE THAN 8 GRAMS DAILY TO ANY UPPER EXTREMIT Y JOINT. MAX 32GM/DAY OVER ALL JOINTS. (MEASURE DOSE WITH RULER ATTACHED INSIDE BOX) LALI IZQUIERDO INUED 02/08/2024 [id number] 4 ANGEL ,NAVIN 2023 100 [facility] DICLOFENAC NA 50MG TAB,EC TAKE ONE TABLET BY MOUTH EVERY MORNING AND EVENING FOR PAIN - TAKE WITH FOOD ORAL ACTIVE 02/03/2025 [id number] 4 AKHIL MORTON AMMAD T 2023 60 [facility] DOXYCYCLINE HYCLATE 100MG TAB TAKE ONE TABLET BY MOUTH EVERY 12 HOURS TAKE UNTIL FINISHED . AVOID SUN EXPOSURE WHILE TAKING. ORAL ACTIVE 05/08/2024 [id number] 4 MAYA HERCULES LLBrian M 2023 8 [facility] FLUTICASONE 250MCG/SALM ETEROL 50MCG INHL,ORAL,D ISKUS,60 INHALE 1 INHALATI ON ORAL INHALATI ON TWICE A DAY FOR ASTHMA (OPEN DISKUS; CLICK ONLY ONCE; MAY INHALE TWICE TO COMPLETE DOSE; CLOSE WHEN FINISHED ) RINSE MOUTH AND SPIT AFTER EACH USE. RESPIR ATORY (INHAL ATION) 01/12/2024 [id number] 4 SERA NEGRETE RRI 2023 3 [facility] GOV-NIRMATR ANNY 150MG X 2/RITONAVIR 100MG X 1 TAB,PACK,3 TAKE TABLETS BY MOUTH DIRECTED TAKE 2 NIRMATRE LVIR TABLETS AND 1 RITONAVI R TABLET (3 TABLETS TOTAL) IN THE MORNING AND IN THE EVENING FOR 5 DAYS ORAL 05/17/2023 [id number] 4 WINNIE LUDWIG D 2023 5 [facility] HC 1%/N-MYCIN 3.5MG/POLYM YX [id number]/ML SUSP,OTIC INSTILL 4 DROPS IN TO AFFECTED EAR(S) THREE TIMES A DAY FOR BACTERIA L EAR INFECTIO N (SHAKE WELL) AURICU LAR (OTIC) DISCONT INUED 12/25/2023 [id number] 4 AKHIL MORTON T 2023 10 [facility] HYDROCODONE 5MG/ACETAMI NOPHEN 325MG TAB TAKE ONE-HALF TABLET BY MOUTH EVERY 6 HOURS NEEDED FOR PAIN CAUTION: DO NOT EXCEED 4000MG PER DAY ACETAMIN OPHEN (APAP) FROM ALL MEDS. ORAL DISCONT INUED 02/08/2024 [id number] 4 BING ORTIZ 2023 10 [facility] IBUPROFEN 400MG TAB TAKE ONE TABLET BY MOUTH FOUR TIMES A DAY NEEDED FOR PAIN TAKE WITH FOOD ORAL DISCONT INUED (EDIT) 06/19/2023 [id number] 4 AKHIL MORTON T 2023 56 [facility] IBUPROFEN 600MG TAB TAKE ONE TABLET BY MOUTH THREE TIMES A DAY TAKE WITH FOOD. DO NOT TAKE WITH DICLOFEN AC ORAL ACTIVE 05/08/2024 [id number] 4 MAYA HERCULES 2023 30 [facility] IBUPROFEN 600MG TAB TAKE ONE TABLET BY MOUTH THREE TIMES A DAY NEEDED FOR PAIN TAKE WITH FOOD ORAL 07/03/2023 [id number] 4 AKHIL MORTON T 2023 90 [facility] MELATONIN 3MG CAP/TAB TAKE TWO CAP/TAB BY MOUTH AT BEDTIME FOR SLEEP MAY TAKE ONE ADDITION AL TABLET/C APSULE FOR A TOTAL OF 3 TABLETS/ CAPSULES IF NEEDED. ORAL 12/25/2023 [id number] 4 AKHIL MORTON T 2023 60 [facility] METHYLPREDN ISOLONE 4MG TAB DOSEPAK,21 TAKE TABLETS BY MOUTH DIRECTED TAKE 6 TABLETS BY MOUTH ON DAY ONE, THEN DECREASE BY ONE TABLET DAILY UNTIL GONE. TAKE WITH FOOD. ORAL DISCONT INUED 02/25/2024 [id number] 4 SELENEAKHIL VALADEZ T 2023 1 [facility] PANTOPRAZOL E NA 40MG TAB,EC TAKE ONE TABLET BY MOUTH EVERY MORNING BEFORE A MEAL TAKE 30 MINUTES BEFORE MEAL(S) ORAL DISCONT INUED 03/14/2024 [id number] 4 SERA NEGRETE RRI 2023 60 [facility] PANTOPRAZOL E NA 40MG TAB,EC TAKE ONE TABLET BY MOUTH EVERY MORNING BEFORE A MEAL FOR GASTROES OPHAGEAL REFLUX DISEASE TAKE 30 MINUTES BEFORE MEAL(S) ORAL 04/04/2024 [id number] 4 AKHIL MORTON 2023 30 [facility] PREDNISONE 10MG TAB TAKE THREE TABLETS BY MOUTH EVERY MORNING FOR 3 DAYS, THEN TAKE TWO TABLETS EVERY MORNING FOR 3 DAYS, THEN TAKE ONE TABLET EVERY MORNING FOR 3 DAYS TAKE WITH FOOD OR MILK. ORAL ACTIVE 05/08/2024 [id number] 4 MAYA HERCULES 2023 18 [facility] PREDNISONE 20MG TAB TAKE ONE TABLET BY MOUTH EVERY MORNING TAKE WITH FOOD OR MILK. ORAL DISCONT INUED 02/21/2024 [id number] 4 JOSE HILARIO DHI 2023 4 [facility] PREDNISONE 20MG TAB TAKE ONE TABLET BY MOUTH EVERY MORNING FOR CARPAL TUNNEL TAKE WITH FOOD OR MILK. ORAL DISCONT INUED 02/08/2024 [id number] 4 BING ORTIZ 2023 10 [facility] TRAZODONE HCL 100MG TAB TAKE ONE-HALF TABLET BY MOUTH AT BEDTIME FOR SLEEP ORAL ACTIVE 05/25/2024 [id number] 4 AKHIL MORTON T 2023 45 [facility] Allergies, Adverse Reactions, Alerts Combined list of allergies from 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 It does not include entries that were removed or entered in error. Substance Category Reaction Severity Reaction type Status Date Reported Comments Source OTHER Drug allergy (disorder) Unknown active 3 [facility] OTHER Drug allergy (disorder) active 6 [facility] SHELLFISH Propensity to adverse reactions to food (finding) Urticaria, Swelling SEVERE active 1 [facility] Immunizations Combined list of available immunizations from the 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 Immunization Series Date Given Administered By Site Reaction Lot Number CVX Code Drug Overlay Plastician Status Comments Source INFLUENZA, SPLIT VIRUS, TRIVALENT, PF 2023 HARPER ROBERT RIGHT DELTO ID [id number] 140 complet ed [facility] COVID-19 ([facility]), MRNA, LNP-S, BIVALENT BOOSTER, PF, 30 MCG/0.3 ML DOSE 1 2021 [facility] MORRISON LEFT DELTO ID [id number] 300 complet ed [facility] COVID-19 ([facility]), MRNA, LNP-S, PF, 30 MCG/0.3 ML DOSE 3 2020 208 complet ed PFR; [id number]; 2 [facility] TDAP 2020 115 complet ed [facility] COVID-19 ([employer]), MRNA, LNP-S, PF, 30 MCG/0.3 ML DOSE 2 2020 208 complet ed PFR; [id number]; 1 [facility] COVID-19 ([employer]), MRNA, LNP-S, PF, 30 MCG/0.3 ML DOSE 1 2020 208 complet ed PFR; [id number]; 1 [facility] Influenza, injectable, quadrivalent, preservative free 15 2018 [id number] 150 [employer] (SEQ) complet ed Influenza , injectabl e, quadrival ent, preservat pérez free [facility] Influenza, injectable, quadrivalent, preservative free 1 2017 [id number] 150 [employer] (SEQ) complet ed Influenza , injectabl e, quadrival ent, preservat pérez free DoD measles virus vaccine 0 2017 05 () Not Given measles virus vaccine DoD rubella virus vaccine 0 2017 06 () Not Given rubella virus vaccine DoD mumps virus vaccine 0 2017 07 () Not Given mumps virus vaccine DoD poliovirus vaccine, inactivated 2 2017 [id number] 10 San[employer] Paste[employer] (PMC) complet ed polioviru s vaccine, inactivat ed DoD anthrax vaccine 6 2017 [id number] 24 [facility] ([facility]) complet ed anthrax vaccine DoD typhoid Vi capsular polysaccharid e vaccine 3 2017 [id number] 101 Sanofi Pasteur (PMC) complet ed typhoid Vi capsular polysacch aride vaccine DoD Influenza, injectable, quadrivalent, preservative free 13 2016 [id number] 150 [facility] ed Influenza , injectabl e, quadrival ent, preservat pérez free DoD Influenza, seasonal, injectable, preservative free 12 2015 [id number] 140 [employer] (SEQ) comple t ed Influenza , seasonal, injectabl e, preservat pérez free DoD influenza, live, intranasal, quadrivalent 11 2014 [id number] 149 Med[employer] Inc. (MED) complet ed influenza , live, intranasa l, quadrival ent DoD influenza, live, intranasal, quadrivalent 10 2013 [id number] 149 [employer] (MED) complet ed influenza , live, intranasa l, quadrival ent DoD influenza, live, intranasal, quadrivalent 9 2012 [id number] 149 [employer] (MED) complet ed influenza , live, intranasa l, quadrival ent DoD Influenza, seasonal, injectable 8 2011 [id number] 141 Sanofi Pasteur (PMC) complet ed Influenza , seasonal, injectabl e DoD anthrax vaccine 5 2011 [id number] 24 [facility] ([facility]) complet ed anthrax vaccine DoD typhoid Vi capsular polysaccharid e vaccine 1 2011 [id number] 101 Sanofi Pasteur (PMC) complet ed typhoid Vi capsular polysacch aride vaccine DoD Influenza, seasonal, injectable 1 2010 [id number] 141 Sanofi Pasteur (PMC) complet ed Influenza , seasonal, injectabl e DoD anthrax vaccine 4 2010 [id number] 24 [facility] ([facility]) complet ed anthrax vaccine DoD anthrax vaccine 3 2010 [id number] 24 [facility] ([facility]) complet ed anthrax vaccine DoD influenza virus vaccine, split virus (incl. purified surface antigen)-reti red CODE 1 2009 [id number] 15 [facility] [employer], [employer]. (CS) complet ed influenza virus vaccine, split virus (incl. purified surface antigen)- retired CODE DoD anthrax vaccine 2 2009 [id number] 24 [facility] ([facility]) complet ed anthrax vaccine DoD tetanus toxoid, reduced diphtheria toxoid, and acellular pertu is vaccine, adsorbed [id number] [place] [address] [employer] ([facility]) complet ed tetanus toxoid, reduced diphtheri a toxoid, and acellular pertussis vaccine, adsorbed DoD vaccinia (smallpox) vaccine 2 2009 VV04-00 3A 75 [facility] complet ed vaccinia (smallpox ) vaccine DoD anthrax vaccine [id number] [facility] ([facility]) complet ed anthrax vaccine DoD vaccinia (smallpox) vaccine 1 2009 VV04-00 3A 75 [facility] ([facility] complet ed vaccinia (smallpox ) vaccine DoD typhoid Vi capsular polysaccharid e vaccine 1 2009 V6982-3 101 Sanofi Pasteur ([facility]) complet ed typhoid Vi capsular polysacch aride vaccine [facility] Novel influenza-H1N 1-09, injectable 1 2009 127 () complet ed Novel influenza -X3W5-74, injectabl e [facility] influenza virus vaccine, live, attenuated, for intranasal use 1 2008 [id number] 111 [employer], [employer]. (MED) complet influenza virus vaccine, live, attenuate d, for intranasa l use [facility] influenza virus vaccine, live, attenuated, for intranasal use 1 2007 [id number] 111 [employer] (MED) complet ed influenza virus vaccine, live, attenuate d, for intranasa l use DoD influenza virus vaccine, live, attenuated, for intranasal use 1 2006 [id number] 111 [employer] (MED) complet ed influenza virus vaccine, live, attenuate d, for intranasa l use DoD influenza virus vaccine, split virus (incl. purified surface antigen)-reti red CODE 1 2006 [id number] 15 San[employer]i Pasteur ([facility]) complet ed influenza virus vaccine, split [...] vaccine 1 2005 [id number] 104 [employer] ([facility]) complet ed hepatitis A and hepatitis B vaccine DoD tetanus and diphtheria toxoids, adsorbed, preservative free, for adult use (2 Lf of tetanus toxoid and 2 Lf of diphtheria toxoid) 1 2005 [id number] 09 Sanofi Pasteur ([facility]) complet ed tetanus and diphtheri a toxoids, adsorbed, preservat pérez free, for adult use (2 Lf of tetanus toxoid and 2 Lf of diphtheri a toxoid) DoD poliovirus vaccine, inactivated 1 2005 [id number] 10 San[employer]i Pasteur ([facility]) complet ed polioviru s vaccine, inactivat ed DoD influenza virus vaccine, split virus (incl. purified surface antigen)-reti red CODE 1 2005 [id number] 15 San[employer]i Pasteur ([facility]) complet ed influenza virus vaccine, split virus (incl. purified surface antigen)- retired CODE DoD meningococcal polysaccharid e (groups A, C, Y and W-135) diphtheria toxoid conjugate vaccine (MCV4P) 1 2005 [id number] 114 Sanofi Pasteur (PMC) complet ed meningoco [...] Mar 21, 2024 12:23 PM Reporting Lab: [facility] [address] [place] [phone] Performing Lab: [address] [id number] [place] [address] DIVISION COMPREHE NSIVE METABOLI C PANEL UREA NITROGEN [MASS/VOLU ME] IN SERUM OR PLASMA 18.1 mg/dL 9.0 - 25.0 03/21 Specimen Type: PLASMA Comment: No hemolysis noted. Ordering Provider: REMINGTON BROWN Report Released Date/Time: Mar 21, 2024 12:23 PM Reporting Lab: [facility] [address] [place] [phone] Performing Lab: [facility] [address] [place] [phone] [facility] COMPREHE NSIVE METABOLI C PANEL GLUCOSE [MASS/VOLU ME] IN SERUM OR PLASMA 105 mg/dL 72 - 99 03/21 H Specimen Type: PLASMA Comment: No hemolysis noted. Ordering Provider: REMINGTON BROWN SSA Report Released Date/Time: Mar 21, 2024 12:23 PM Reporting Lab: [facility] [address] [place] [phone] Performing Lab: [facility] [address] [place] [phone] [facility] COMPREHE NSIVE METABOLI C PANEL SODIUM [MOLES/VOL UME] IN SERUM OR PLASMA 136 meq/L 136 - 145 03/21 Specimen Type: PLASMA Comment: No hemolysis noted. Ordering Provider: REMINGTON BROWN Report Released Date/Time: Mar 21, 2024 12:23 PM Reporting Lab: [facility] [address] [facility] [phone] Performing Lab: [facility] [address] [place] [phone] [facility] COMPREHE NSIVE METABOLI C PANEL POTASSIUM [MOLES/VOL UME] IN SERUM OR PLASMA 4.2 meq/L 3.5 - 5 03/21 Specimen Type: PLASMA Comment: No hemolysis noted. Ordering Provider: REMINGTON BROWN Report Released Date/Time: Mar 21, 2024 12:23 PM Reporting Lab: [facility] [address] [place] [phone] Performing Lab: [facility] [address] [place] [phone] [facility] COMPREHE NSIVE METABOLI C PANEL CHLORIDE [MOLES/VOL UME] IN SERUM OR PLASMA 102 meq/L 98 - 107 03/21 Specimen Type: PLASMA Comment: No hemolysis noted. Ordering Provider: REMINGTON BROWN Report Released Date/Time: Mar 21, 2024 12:23 PM Reporting Lab: [address] [phone] Performing Lab: [facility] [address] [facility] [phone] [facility] COMPREHE NSIVE METABOLI C PANEL CARBON DIOXIDE, TOTAL [MOLES/VOL UME] IN SERUM OR PLASMA 23 meq/L 22 - 31 03/21 Specimen Type: PLASMA Comment: No hemolysis noted. Ordering Provider: REMINGTON BROWN Report Released Date/Time: Mar 21, 2024 12:23 PM Reporting Lab: [facility] [address] [place] [phone] Performing Lab: [facility] [address] [facility] [phone] [facility] COMPREHE NSIVE METABOLI C PANEL CALCIUM [MASS/VOLU ME] IN SERUM OR PLASMA 9.7 mg/dL 8.4 - 10.4 03/21 Specimen Type: PLASMA Comment: No hemolysis noted. Ordering Provider: REMINGTON BROWN Report Released Date/Time: Mar 21, 2024 12:23 PM Reporting Lab: [facility] [address] [facility] [phone] Performing Lab: [facility] [address] [facility] [phone] [facility] COMPREHE NSIVE METABOLI C PANEL PROTEIN [MASS/VOLU ME] IN SERUM OR PLASMA 9.6 g/dL 6 - 8.6 03/21 H Specimen Type: PLASMA Comment: No hemolysis noted. Ordering Provider: REMINGTON BROWN Report Released Date/Time: Mar 21, 2024 12:23 PM Reporting Lab: [facility] [address] [facility] [phone] Performing Lab: [facility] [address] [facility] [phone] [facility] COMPREHE NSIVE METABOLI C PANEL ALBUMIN [MASS/VOLU ME] IN SERUM OR PLASMA 3.4 g/dL 3.4 - 5 03/21 Specimen Type: PLASMA Comment: No hemolysis noted. Ordering Provider: REMINGTON BROWN Report Released Date/Time: Mar 21, 2024 12:23 PM Reporting Lab: [facility] [address] [facility] [phone] Performing Lab: [facility] [address] [facility] [phone] [facility] COMPREHE NSIVE METABOLI C PANEL BILIRUBIN. TOTAL [MASS/VOLU ME] IN SERUM OR PLASMA 1.1 mg/dL 0.2 - 1.2 03/21 Specimen Type: PLASMA Comment: No hemolysis noted. Ordering Provider: REMINGTON BROWN Report Released Date/Time: Mar 21, 2024 12:23 PM Reporting Lab: [facility] [address] [facility] [address] Performing Lab: [facility] [address] [facility] [address] [facility] COMPREHE NSIVE METABOLI C PANEL ALKALINE PHOSPHATAS E [ENZYMATIC ACTIVITY/V OLUME] IN SERUM OR PLASMA 109 U/L 40 - 150 03/21 Specimen Type: PLASMA Comment: No hemolysis noted. Ordering Provider: REMINGTON BROWN Report Released Date/Time: Mar 21, 2024 12:23 PM Reporting Lab: [facility] [address] [place] [address] Performing Lab: [place] [address] [facility] [address] [facility] COMPREHE NSIVE METABOLI C PANEL ASPARTATE AMINOTRANS FERASE [ENZYMATIC ACTIVITY/V OLUME] IN SERUM OR PLASMA 48 U/L 5 - 34 03/21 H Specimen Type: PLASMA Comment: No hemolysis noted. Ordering Provider: REMINGTON BROWN Report Released Date/Time: Mar 21, 2024 12:23 PM Reporting Lab: [address] [address] Performing Lab: [place] [address] [facility] [address] [facility] COMPREHE NSIVE METABOLI C PANEL ALANINE AMINOTRANS FERASE [ENZYMATIC ACTIVITY/V OLUME] IN SERUM OR PLASMA 37 U/L 8 - 40 03/21 Specimen Type: PLASMA Comment: No hemolysis noted. Ordering Provider: REMINGTON BROWN Report Released Date/Time: Mar 21, 2024 12:23 PM Reporting Lab: [address] [address] Performing Lab: [address] [address] [facility] COMPREHE NSIVE METABOLI C PANEL GLOMERULAR FILTRATION RATE/1.73 SQ M.PREDICTE D [VOLUME RATE/AREA] IN SERUM, PLASMA OR BLOOD BY CREATININE -BASED FORMULA (CKD-EPI 2020) 98.2 60 03/21 Specimen Type: PLASMA Comment: No hemolysis noted. Ordering Provider: REMINGTON BROWN Report Released Date/Time: Mar 21, 2024 12:23 PM Reporting Lab: [address] [address] Performing Lab: [address] [address] [facility] CBC LEUKOCYTES [#/VOLUME] IN BLOOD BY AUTOMATED COUNT 7.2 10*3/uL 3.6 - 11.2 03/21 Specimen Type: BLOOD No comment entered. Ordering Provider: REMINGTON BROWN Report Released Date/Time: Mar 21, 2024 12:23 PM Reporting Lab: [address] [address] Performing Lab: [address] [address] [facility] CBC ERYTHROCYT ES [#/VOLUME] IN BLOOD BY AUTOMATED COUNT 4.24 10*6/uL 4.10 - 5.70 03/21 Specimen Type: BLOOD No comment entered. Ordering Provider: REMINGTON BROWN Report Released Date/Time: Mar 21, 2024 12:23 PM Reporting Lab: [address] [address] Performing Lab: [address] [address] [facility] CBC HEMOGLOBIN [MASS/VOLU ME] IN BLOOD 11.1 g/dL 13.1 - 16.8 03/21 L Specimen Type: BLOOD No comment entered. Ordering Provider: REMINGTON BROWN Report Released Date/Time: Mar 21, 2024 12:23 PM Reporting Lab: [address] [address] Performing Lab: [address] [address] [facility] CBC HEMATOCRIT [VOLUME FRACTION] OF BLOOD 33.9 38.2 - 48.4 03/21 L Specimen Type: BLOOD No comment entered. Ordering Provider: REMINGTON BROWN Report Released Date/Time: Mar 21, 2024 12:23 PM Reporting Lab: [address] [address] Performing Lab: [address] [address] [facility] CBC MCV [ENTITIC VOLUME] BY AUTOMATED COUNT 80.0 fL 80.0 - 100.0 03/21 Specimen Type: BLOOD No comment entered. Ordering Provider: REMINGTON BROWN Report Released Date/Time: Mar 21, 2024 12:23 PM Reporting Lab: [address] [address] Performing Lab: [address] [address] [facility] CBC MCH [ENTITIC MASS] BY AUTOMATED COUNT 26.2 pg 27.0 - 34.0 03/21 L Specimen Type: BLOOD No comment entered. Ordering Provider: REMINGTON BROWN Report Released Date/Time: Mar 21, 2024 12:23 PM Reporting Lab: [address] [address] Performing Lab: [address] [address] [facility] CBC MCHC [MASS/VOLU ME] BY AUTOMATED COUNT 32.7 g/dL 33.0 - 36.0 03/21 L Specimen Type: BLOOD No comment entered. Ordering Provider: REMINGTON BROWN Report Released Date/Time: Mar 21, 2024 12:23 PM Reporting Lab: [address] [address] Performing Lab: [address] [address] [facility] CBC PLATELETS [#/VOLUME] IN BLOOD BY AUTOMATED COUNT 352 10*3/uL 150 - 400 03/21 Specimen Type: BLOOD No comment entered. Ordering Provider: REMINGTON BROWN Report Released Date/Time: Mar 21, 2024 12:23 PM Reporting Lab: [address] [address] Performing Lab: [address] [address] [facility] CBC PLATELET MEAN VOLUME [ENTITIC VOLUME] IN BLOOD BY AUTOMATED COUNT 10.0 fL 7.5 - 11.2 03/21 Specimen Type: BLOOD No comment entered. Ordering Provider: REMINGTON BROWN Report Released Date/Time: Mar 21, 2024 12:23 PM Reporting Lab: [address] [address] Performing Lab: [address] [address] [facility] CBC ERYTHROCYT E DISTRIBUTI ON WIDTH [RATIO] BY AUTOMATED COUNT 13.4 11.8 - 15.1 03/21 Specimen Type: BLOOD No comment entered. Ordering Provider: REMINGTON BROWN Report Released Date/Time: Mar 21, 2024 12:23 PM Reporting Lab: [address] [address] Performing Lab: [address] [address] [facility] CBC LYMPHOCYTE S/100 LEUKOCYTES IN BLOOD BY AUTOMATED COUNT 17 03/21 Specimen Type: BLOOD No comment entered. Ordering Provider: REMINGTON BROWN Report Released Date/Time: Mar 21, 2024 12:23 PM Reporting Lab: [address] [address] Performing Lab: [address] [address] [facility] CBC MONOCYTES/ 100 LEUKOCYTES IN BLOOD BY AUTOMATED COUNT 7 03/21 Specimen Type: BLOOD No comment entered. Ordering Provider: REMINGTON BROWN Report Released Date/Time: Mar 21, 2024 12:23 PM Reporting Lab: [facility] [address] [facility] [address] Performing Lab: [facility] [address] [place] [address] [facility] CBC NEUTROPHIL S/100 LEUKOCYTES IN BLOOD BY AUTOMATED COUNT 74 03/21 Specimen Type: BLOOD No comment entered. Ordering Provider: REMINGTON BROWN Report Released Date/Time: Mar 21, 2024 12:23 PM Reporting Lab: [facility] [address] [place] [address] Performing Lab: [facility] [address] [place] [address] [facility] CBC EOSINOPHIL S/100 LEUKOCYTES IN BLOOD BY AUTOMATED COUNT 2 03/21 Specimen Type: BLOOD No comment entered. Ordering Provider: REMINGTON BROWN Report Released Date/Time: Mar 21, 2024 12:23 PM Reporting Lab: [facility] [address] [place] [address] Performing Lab: [facility] [address] [place] [phone] [facility] CBC BASOPHILS/ 100 LEUKOCYTES IN BLOOD BY AUTOMATED COUNT 0 03/21 Specimen Type: BLOOD No comment entered. Ordering Provider: REMINGTON BROWN Report Released Date/Time: Mar 21, 2024 12:23 PM Reporting Lab: [facility] [address] [place] [phone] Performing Lab: [address] [address] [facility] CBC LYMPHOCYTE S [#/VOLUME] IN BLOOD BY AUTOMATED COUNT 1.22 10*3/uL 0.77 - 4.50 03/21 Specimen Type: BLOOD No comment entered. Ordering Provider: REMINGTON BROWNM Report Released Date/Time: Mar 21, 2024 12:23 PM Reporting Lab: [facility] [address] [place] [phone] Performing Lab: [address] [address] [facility] CBC MONOCYTES [#/VOLUME] IN BLOOD BY AUTOMATED COUNT 0.48 10*3/uL 0.19 - 0.80 03/21 Specimen Type: BLOOD No comment entered. Ordering Provider: REMINGTON BROWN SSAM Report Released Date/Time: Mar 21, 2024 12:23 PM Reporting Lab: [address] [address] Performing Lab: [address] [address] [facility] CBC NEUTROPHIL S [#/VOLUME] IN BLOOD BY AUTOMATED COUNT 5.34 10*3/uL 2.10 - 8.00 03/21 Specimen Type: BLOOD No comment entered. Ordering Provider: REMINGTON BROWN SSAM Report Released Date/Time: Mar 21, 2024 12:23 PM Reporting Lab: [address] [address] Performing Lab: [address] [address] [facility] CBC EOSINOPHIL S [#/VOLUME] IN BLOOD BY AUTOMATED COUNT 0.13 10*3/uL 0.00 - 0.60 03/21 Specimen Type: BLOOD No comment entered. Ordering Provider: REMINGTON BROWN SSAM Report Released Date/Time: Mar 21, 2024 12:23 PM Reporting Lab: [address] [address] Performing Lab: [address] [address] [facility] CBC BASOPHILS [#/VOLUME] IN BLOOD BY AUTOMATED COUNT 0.01 10*3/uL 0.00 - 0.20 03/21 Specimen Type: BLOOD No comment entered. Ordering Provider: REMINGTON BROWN SSAM Report Released Date/Time: Mar 21, 2024 12:23 PM Reporting Lab: [address] [address] Performing Lab: [facility] [address] [place] [address] [facility] TROPONIN I TROPONIN I.CARDIAC [MASS/VOLU ME] IN SERUM OR PLASMA <0.010ng /mL 0 - 0.033 03/05 Specimen Type: PLASMA No comment entered. Ordering Provider: MUKESH MARINELLI Report Released Date/Time: Mar 05, 2024 11:04 AM Reporting Lab: [address] [address] Performing Lab: [address] [address] [facility] RESPIRAT ORY PCR PANEL ADENOVIRUS DNA [PRESENCE] IN NASOPHARYN X BY GALLITO WITH NON-PROBE DETECTION Not Detected 03/05 Specimen Type: NASOPHARYNX Comment: The [employer] RP Panel combines nested multiplex PCR and [...] available to the clinician evaluating the patient. KiteReadersKelly Skinner, ([phone]) Ordering Provider: MUKESH MARINELLI Report Released Date/Time: Mar 05, 2024 09:39 AM Reporting Lab: [address] [address] Performing Lab: [address] [address] [facility] RESPIRAT ORY PCR PANEL HUMAN CORONAVIRU S [...] available to the clinician evaluating the patient. HypejarClaudio CASTRO ([phone]) Ordering Provider: MUKESH MARINELLI Report Released Date/Time: Mar 05, 2024 09:39 AM Reporting Lab: [place] [address] Performing Lab: [address] [phone] [place] [address] [facility] RESPIRAT ORY PCR PANEL HUMAN CORONAVIRU [...] Mar 05, 2024 09:39 AM Reporting Lab: [address] [address] Performing Lab: [place] [address] [facility] [address] [facility] RESPIRAT ORY PCR PANEL HUMAN CORONAVIRU S [...] available to the clinician evaluating the patient. [email or web address] Susanne ([phone]) Ordering Provider: MUKESH MARINELLI Report Released Date/Time: Mar 05, 2024 09:39 AM Reporting Lab: [address] [address] Performing Lab: [address] [address] [facility] RESPIRAT ORY PCR PANEL HUMAN CORONAVIRU S [...] available to the clinician evaluating the patient. [email or web address] Ti-Bi TechnologyKelly Skinner, ([phone]) Ordering Provider: MUKESH MARINELLI Report Released Date/Time: Mar 05, 2024 09:39 AM Reporting Lab: [facility] [address] [facility] [address] Performing Lab: [address] [address] [facility] RESPIRAT ORY PCR PANEL HUMAN METAPNEUMO VIRUS RNA [PRESENCE] IN NASOPHARYN X BY GALLITO WITH NON-PROBE DETECTION Not Detected 03/05 Specimen Type: NASOPHARYNX Comment: The [employer] RP Panel combines nested multiplex PCR and [...] available to the clinician evaluating the patient. KiteReadersKelly Skinner, ([phone]) Ordering Provider: MUKESH MARINELLI Report Released Date/Time: Mar 05, 2024 09:39 AM Reporting Lab: [address] [address] Performing Lab: [address] [address] [facility] RESPIRAT ORY PCR PANEL RHINOVIRUS +ENTEROVIR US [...] available to the clinician evaluating the patient. [email or web address] Susanne, (284) Ordering Provider: MUKESH MARINELLI Report Released Date/Time: Mar 05, 2024 09:39 AM Reporting Lab: [facility] [address] [facility] [address] Performing Lab: [facility] [address] [facility] [address] [facility] RESPIRAT ORY PCR PANEL INFLUENZA VIRUS A RNA [...] available to the clinician evaluating the patient. [email or web address] Ti-Bi TechnologyKelly Skinner, ([phone]) Ordering Provider: MUKESH MARINELLI Report Released Date/Time: Mar 05, 2024 09:39 AM Reporting Lab: [place] [address] [facility] [address] Performing Lab: [place] [address] [facility] [address] [facility] RESPIRAT ORY PCR PANEL INFLUENZA VIRUS B [...] available to the clinician evaluating the patient. [email or web address] Ti-Bi TechnologyKelly Skinner, ([phone]) Ordering Provider: MUKESH MARINELLI Report Released Date/Time: Mar 05, 2024 09:39 AM Reporting Lab: [place] [address] [facility] [address] Performing Lab: [address] [address] [facility] RESPIRAT ORY PCR PANEL PARAINFLUE NZA VIRUS [...] available to the clinician evaluating the patient. [email or web address] Ti-Bi TechnologyKelly Skinner, (136) Ordering Provider: MUKESH MARINELLI Report Released Date/Time: Mar 05, 2024 09:39 AM Reporting Lab: [address] [address] Performing Lab: [place] [address] [facility] [address] [facility] RESPIRAT ORY PCR PANEL PARAINFLUE NZA VIRUS [...] available to the clinician evaluating the patient. HypejarClaudio CASTRO, (171) Ordering Provider: MUKESH MARINELLI Report Released Date/Time: Mar 05, 2024 09:39 AM Reporting Lab: [facility] [address] [facility] [address] Performing Lab: [place] [address] [facility] [address] [facility] RESPIRAT ORY PCR PANEL PARAINFLUE NZA VIRUS 3 RNA [PRESENCE] IN NASOPHARYN X BY GALLITO WITH NON-PROBE DETECTION Not Detected 03/05 Specimen Type: NASOPHARYNX Comment: The [employer] RP Panel combines nested multiplex PCR and [...] available to the clinician evaluating the patient. HypejarClaudio CASTRO, ([phone]) Ordering Provider: MUKESH MARINELLI Report Released Date/Time: Mar 05, 2024 09:39 AM Reporting Lab: [facility] [address] [address] Performing Lab: [place] [address] [facility] [address] [facility] RESPIRAT ORY PCR PANEL PARAINFLUE NZA VIRUS 4 RNA [PRESENCE] IN NASOPHARYN X BY GALLITO WITH NON-PROBE DETECTION Not Detected 03/05 Specimen Type: NASOPHARYNX Comment: The [employer] RP Panel combines nested multiplex PCR and [...] available to the clinician evaluating the patient. Ezeecubeshannon, ([phone]) Ordering Provider: MUKESH MARINELLI Report Released Date/Time: Mar 05, 2024 09:39 AM Reporting Lab: [address] [address] Performing Lab: [address] [address] [facility] RESPIRAT ORY PCR PANEL RESPIRATOR Y SYNCYTIAL VIRUS RNA [PRESENCE] IN NASOPHARYN X BY GALLITO WITH NON-PROBE DETECTION Not Detected 03/05 Specimen Type: NASOPHARYNX Comment: The [employer] RP Panel combines nested multiplex PCR and [...] available to the clinician evaluating the patient. [employer] Susanne, ([phone]) Ordering Provider: MUKESH MARINELLI Report Released Date/Time: Mar 05, 2024 09:39 AM Reporting Lab: [place] [address] [facility] [address] Performing Lab: [place] [address] [facility] [address] [facility] RESPIRAT ORY PCR PANEL BORDETELLA PERTUSSIS. PERTUSSIS [...] the clinician evaluating the patient. Claudio GREEN, (411) Ordering Provider: MUKESH MARINELLI Report Released Date/Time: Mar 05, 2024 09:39 AM Reporting Lab: [address] [address] Performing Lab: [address] [address] [facility] RESPIRAT ORY PCR PANEL CHLAMYDOPH CRISTIAN PNEUMONIAE [...] the clinician evaluating the patient. Claudio GREEN, ([phone]) Ordering Provider: MUKESH MARINELLI Report Released Date/Time: Mar 05, 2024 09:39 AM Reporting Lab: [address] [address] Performing Lab: [address] [address] [facility] RESPIRAT ORY PCR PANEL MYCOPLASMA PNEUMONIAE DNA [...] available to the clinician evaluating the patient. Solicore, (458) Ordering Provider: MUKESH MARINELLI Report Released Date/Time: Mar 05, 2024 09:39 AM Reporting Lab: [address] [address] Performing Lab: [address] [address] [facility] RESPIRAT ORY PCR PANEL BORDETELLA PARAPERTUS SIS [id number] DNA [PRESENCE] IN NASOPHARYN X BY GALLITO [...] available to the clinician evaluating the patient. [employer] Susanne, (140) Ordering Provider: MUKESH MARINELLI Report Released Date/Time: Mar 05, 2024 09:39 AM Reporting Lab: [address] [address] Performing Lab: [address] [address] [facility] RESPIRAT ORY PCR PANEL SARS-COV-2 (COVID-19) RNA [PRESENCE] IN NASOPHARYN X BY GALLITO WITH NON-PROBE DETECTION Not Detected 03/05 Specimen Type: NASOPHARYNX Comment: The [employer] RP Panel combines nested multiplex PCR and [...] available to the clinician evaluating the patient. HypejarClaudio CASTRO, ([phone]) Ordering Provider: MUKESH MARINELLI Report Released Date/Time: Mar 05, 2024 09:39 AM Reporting Lab: [address] [address] Performing Lab: [address] [address] [facility] CBC LEUKOCYTES [#/VOLUME] IN BLOOD BY AUTOMATED COUNT 7.1 10*3/uL 3.6 - 11.2 03/05 Specimen Type: BLOOD No comment entered. Ordering Provider: MUKESH MARINELLI Report Released Date/Time: Mar 05, 2024 08:52 AM Reporting Lab: [address] [address] Performing Lab: [address] [address] [facility] CBC ERYTHROCYT ES [#/VOLUME] IN BLOOD BY AUTOMATED COUNT 4.84 10*6/uL 4.10 - 5.70 03/05 Specimen Type: BLOOD No comment entered. Ordering Provider: MUKESH MARINELLI Report Released Date/Time: Mar 05, 2024 08:52 AM Reporting Lab: [address] [address] Performing Lab: [address] [address] [facility] CBC HEMOGLOBIN [MASS/VOLU ME] IN BLOOD 13.1 g/dL 13.1 - 16.8 03/05 Specimen Type: BLOOD No comment entered. Ordering Provider: MUKESH MARINELLI Report Released Date/Time: Mar 05, 2024 08:52 AM Reporting Lab: [place] [address] Performing Lab: [address] [address] CBC HEMATOCRIT [VOLUME FRACTION] OF BLOOD 38.6 38.2 - 48.4 03/05 Specimen Type: BLOOD No comment entered. Ordering Provider: MUKESH MARINELLI Report Released Date/Time: Mar 05, 2024 08:52 AM Reporting Lab: [address] [address] Performing Lab: [address] [address] [facility] CBC MCV [ENTITIC VOLUME] BY AUTOMATED COUNT 79.8 fL 80.0 - 100.0 03/05 L Specimen Type: BLOOD No comment entered. Ordering Provider: MUKESH MARINELLI Report Released Date/Time: Mar 05, 2024 08:52 AM Reporting Lab: [address] [address] Performing Lab: [address] [address] [facility] CBC MCH [ENTITIC MASS] BY AUTOMATED COUNT 27.1 pg 27.0 - 34.0 03/05 Specimen Type: BLOOD No comment entered. Ordering Provider: MUKESH MARINELLI Report Released Date/Time: Mar 05, 2024 08:52 AM Reporting Lab: [address] [address] Performing Lab: [address] [address] [facility] CBC MCHC [MASS/VOLU ME] BY AUTOMATED COUNT 33.9 g/dL 33.0 - 36.0 03/05 Specimen Type: BLOOD No comment entered. Ordering Provider: MUKESH MARINELLI Report Released Date/Time: Mar 05, 2024 08:52 AM Reporting Lab: [address] [address] Performing Lab: [address] [phone] [address] CBC PLATELETS [#/VOLUME] IN BLOOD BY AUTOMATED COUNT 354 10*3/uL 150 - 400 03/05 Specimen Type: BLOOD No comment entered. Ordering Provider: MUKESH MARINELLI Report Released Date/Time: Mar 05, 2024 08:52 AM Reporting Lab: [address] [address] Performing Lab: [address] [address] [address] CBC PLATELET MEAN VOLUME [ENTITIC VOLUME] IN BLOOD BY AUTOMATED COUNT 9.9 fL 7.5 - 11.2 03/05 Specimen Type: BLOOD No comment entered. Ordering Provider: MUKESH MARINELLI Report Released Date/Time: Mar 05, 2024 08:52 AM Reporting Lab: [address] [address] Performing Lab: [address] [address] [facility] CBC ERYTHROCYT E DISTRIBUTI ON WIDTH [RATIO] BY AUTOMATED COUNT 13.3 11.8 - 15.1 03/05 Specimen Type: BLOOD No comment entered. Ordering Provider: MUKESH MARINELLI Report Released Date/Time: Mar 05, 2024 08:52 AM Reporting Lab: [facility] [address] [facility] [address] Performing Lab: [facility] [address] [facility] [address] [facility] CBC LYMPHOCYTE S/100 LEUKOCYTES IN BLOOD BY AUTOMATED COUNT 14 03/05 Specimen Type: BLOOD No comment entered. Ordering Provider: MUKESH MARINELLI Report Released Date/Time: Mar 05, 2024 08:52 AM Reporting Lab: [facility] [address] [facility] [address] Performing Lab: [facility] [address] [facility] [address] [facility] CBC MONOCYTES/ 100 LEUKOCYTES IN BLOOD BY AUTOMATED COUNT 7 03/05 Specimen Type: BLOOD No comment entered. Ordering Provider: MUKESH MARINELLI Report Released Date/Time: Mar 05, 2024 08:52 AM Reporting Lab: [facility] [address] [facility] [address] Performing Lab: [facility] [address] [facility] [address] [facility] CBC NEUTROPHIL S/100 LEUKOCYTES IN BLOOD BY AUTOMATED COUNT 78 03/05 Specimen Type: BLOOD No comment entered. Ordering Provider: MUKESH MARINELLI Report Released Date/Time: Mar 05, 2024 08:52 AM Reporting Lab: [facility] [address] [facility] [address] Performing Lab: [facility] [address] [facility] [address] [facility] CBC EOSINOPHIL S/100 LEUKOCYTES IN BLOOD BY AUTOMATED COUNT 0 03/05 Specimen Type: BLOOD No comment entered. Ordering Provider: MUKESH MARINELLI Report Released Date/Time: Mar 05, 2024 08:52 AM Reporting Lab: [facility] [address] [facility] [address] Performing Lab: [address] [address] [facility] CBC BASOPHILS/ 100 LEUKOCYTES IN BLOOD BY AUTOMATED COUNT 0 03/05 Specimen Type: BLOOD No comment entered. Ordering Provider: MUKESH MARINELLI Report Released Date/Time: Mar 05, 2024 08:52 AM Reporting Lab: [address] [address] Performing Lab: [address] [address] [facility] CBC LYMPHOCYTE S [#/VOLUME] IN BLOOD BY AUTOMATED COUNT 1.00 10*3/uL 0.77 - 4.50 03/05 Specimen Type: BLOOD No comment entered. Ordering Provider: MUKESH MARINELLI Report Released Date/Time: Mar 05, 2024 08:52 AM Reporting Lab: [address] [address] Performing Lab: [address] [address] [facility] CBC MONOCYTES [#/VOLUME] IN BLOOD BY AUTOMATED COUNT 0.50 10*3/uL 0.19 - 0.80 03/05 Specimen Type: BLOOD No comment entered. Ordering Provider: MUKESH MARINELLI Report Released Date/Time: Mar 05, 2024 08:52 AM Reporting Lab: [address] [address] Performing Lab: [address] [address] [facility] CBC NEUTROPHIL S [#/VOLUME] IN BLOOD BY AUTOMATED COUNT 5.53 10*3/uL 2.10 - 8.00 03/05 Specimen Type: BLOOD No comment entered. Ordering Provider: MUKESH MARINELLI Report Released Date/Time: Mar 05, 2024 08:52 AM Reporting Lab: [address] [address] Performing Lab: [place] [id number] [facility] CBC EOSINOPHIL S [#/VOLUME] IN BLOOD BY AUTOMATED COUNT 0.03 10*3/uL 0.00 - 0.60 03/05 Specimen Type: BLOOD No comment entered. Ordering Provider: MUKESH MARINELLI Report Released Date/Time: Mar 05, 2024 08:52 AM Reporting Lab: [place] [address] Performing Lab: [address] CBC BASOPHILS [#/VOLUME] IN BLOOD BY AUTOMATED COUNT 0.01 10*3/uL 0.00 - 0.20 03/05 Specimen Type: BLOOD No comment entered. Ordering Provider: MUKESH MARINELLI Report Released Date/Time: Mar 05, 2024 08:52 AM Reporting Lab: [place] [address] Performing Lab: [address] TROPONIN I TROPONIN I.CARDIAC [MASS/VOLU ME] IN SERUM OR PLASMA 0.013 ng/mL 0 - 0.033 03/05 Specimen Type: PLASMA Comment: No hemolysis noted. Ordering Provider: MUKESH MARINELLI Report Released Date/Time: Mar 05, 2024 08:52 AM Reporting Lab: [place] [address] Performing Lab: [address] TSH (MA-PB) THYROTROPI N [UNITS/VOL UME] IN SERUM OR PLASMA 0.283 u[IU]/mL 0.47 - 5 03/05 L Specimen Type: SERUM No comment entered. Ordering Provider: MUKESH MARINELLI Report Released Date/Time: Mar 05, 2024 09:39 AM Reporting Lab: [facility] [address] [address] Performing Lab: [place] [address] [facility] [address] [facility] TSH (MA-PB) THYROXINE (T4) FREE [MASS/VOLU ME] IN SERUM OR PLASMA 1.10 ng/mL 0.7 - 1.48 03/05 Specimen Type: SERUM No comment entered. Ordering Provider: MUKESH MARINELLI Report Released Date/Time: Mar 05, 2024 09:39 AM Reporting Lab: [address] [address] Performing Lab: [address] [id number] [place] [address] BRAIN NATRIURE TIC PEPTIDE NATRIURETI C PEPTIDE B [MASS/VOLU ME] IN SERUM OR PLASMA 16.2 pg/mL 0 - 100 03/05 Specimen Type: PLASMA No comment entered. Ordering Provider: MUKESH MARINELLI Report Released Date/Time: Mar 05, 2024 09:39 AM Reporting Lab: [address] [address] Performing Lab: [address] [address] [facility] COMPREHE NSIVE METABOLI C PANEL CREATININE [MASS/VOLU ME] IN SERUM OR PLASMA 0.92 mg/dL 0.7 - 1.3 03/05 Specimen Type: PLASMA Comment: No hemolysis noted. Ordering Provider: MUKESH MARINELLI Report Released Date/Time: Mar 05, 2024 08:52 AM Reporting Lab: [address] [address] Performing Lab: [address] [address] [facility] COMPREHE NSIVE METABOLI C PANEL UREA NITROGEN [MASS/VOLU ME] IN SERUM OR PLASMA 15.6 mg/dL 9.0 - 25.0 03/05 Specimen Type: PLASMA Comment: No hemolysis noted. Ordering Provider: MUKESH MARINELLI Report Released Date/Time: Mar 05, 2024 08:52 AM Reporting Lab: [facility] [address] [facility] [address] Performing Lab: [facility] [address] [facility] [address] [facility] COMPREHE NSIVE METABOLI C PANEL GLUCOSE [MASS/VOLU ME] IN SERUM OR PLASMA 153 mg/dL 72 - 99 03/05 H Specimen Type: PLASMA Comment: No hemolysis noted. Ordering Provider: MUKESH MARINELLI Report Released Date/Time: Mar 05, 2024 08:52 AM Reporting Lab: [facility] [address] [place] [address] Performing Lab: [facility] [address] [place] [phone] [facility] COMPREHE NSIVE METABOLI C PANEL SODIUM [MOLES/VOL UME] IN SERUM OR PLASMA 136 meq/L 136 - 145 03/05 Specimen Type: PLASMA Comment: No hemolysis noted. Ordering Provider: MUKESH MARINELLI Report Released Date/Time: Mar 05, 2024 08:52 AM Reporting Lab: [facility] [address] [place] [phone] Performing Lab: [facility] [address] [place] [address] [facility] COMPREHE NSIVE METABOLI C PANEL POTASSIUM [MOLES/VOL UME] IN SERUM OR PLASMA 4.2 meq/L 3.5 - 5 03/05 Specimen Type: PLASMA Comment: No hemolysis noted. Ordering Provider: MUKESH MARINELLI Report Released Date/Time: Mar 05, 2024 08:52 AM Reporting Lab: [facility] [address] [facility] [address] Performing Lab: [facility] [address] [place] [phone] [facility] COMPREHE NSIVE METABOLI C PANEL CHLORIDE [MOLES/VOL UME] IN SERUM OR PLASMA 102 meq/L 98 - 107 03/05 Specimen Type: PLASMA Comment: No hemolysis noted. Ordering Provider: MUKESH MARINELLI Report Released Date/Time: Mar 05, 2024 08:52 AM Reporting Lab: [facility] [address] [facility] [address] Performing Lab: [facility] 91 [facility] [address] [facility] COMPREHE NSIVE METABOLI C PANEL CARBON DIOXIDE, TOTAL [MOLES/VOL UME] IN SERUM OR PLASMA 24 meq/L 22 - 31 03/05 Specimen Type: PLASMA Comment: No hemolysis noted. Ordering Provider: MUKESH MARINELLI Report Released Date/Time: Mar 05, 2024 08:52 AM Reporting Lab: [place] [address] [facility] [address] Performing Lab: [place] [address] [facility] [address] [facility] COMPREHE NSIVE METABOLI C PANEL CALCIUM [MASS/VOLU ME] IN SERUM OR PLASMA 9.6 mg/dL 8.4 - 10.4 03/05 Specimen Type: PLASMA Comment: No hemolysis noted. Ordering Provider: MUKESH MARINELLI Report Released Date/Time: Mar 05, 2024 08:52 AM Reporting Lab: [address] [address] Performing Lab: [facility] [address] [facility] [address] [facility] COMPREHE NSIVE METABOLI C PANEL PROTEIN [MASS/VOLU ME] IN SERUM OR PLASMA 9.3 g/dL 6 - 8.6 03/05 H Specimen Type: PLASMA Comment: No hemolysis noted. Ordering Provider: MUKESH MARINELLI Report Released Date/Time: Mar 05, 2024 08:52 AM Reporting Lab: [address] [address] Performing Lab: [place] [address] [facility] [address] [facility] COMPREHE NSIVE METABOLI C PANEL ALBUMIN [MASS/VOLU ME] IN SERUM OR PLASMA 3.6 g/dL 3.4 - 5 03/05 Specimen Type: PLASMA Comment: No hemolysis noted. Ordering Provider: MUKESH MARINELLI Report Released Date/Time: Mar 05, 2024 08:52 AM Reporting Lab: [address] [address] Performing Lab: [place] [address] [facility] [address] [facility] COMPREHE NSIVE METABOLI C PANEL BILIRUBIN. TOTAL [MASS/VOLU ME] IN SERUM OR PLASMA 0.9 mg/dL 0.2 - 1.2 03/05 Specimen Type: PLASMA Comment: No hemolysis noted. Ordering Provider: MUKESH MARINELLI Report Released Date/Time: Mar 05, 2024 08:52 AM Reporting Lab: [place] [address] [facility] [address] Performing Lab: [address] [phone] [place] [address] COMPREHE NSIVE METABOLI C PANEL ALKALINE PHOSPHATAS E [ENZYMATIC ACTIVITY/V OLUME] IN SERUM OR PLASMA 79 U/L 40 - 150 03/05 Specimen Type: PLASMA Comment: No hemolysis noted. Ordering Provider: MUKESH MARINELLI Report Released Date/Time: Mar 05, 2024 08:52 AM Reporting Lab: [address] [address] Performing Lab: [address] [address] [facility] COMPREHE NSIVE METABOLI C PANEL ASPARTATE AMINOTRANS FERASE [ENZYMATIC ACTIVITY/V OLUME] IN SERUM OR PLASMA 45 U/L 5 - 34 03/05 H Specimen Type: PLASMA Comment: No hemolysis noted. Ordering Provider: MUKESH MARINELLI Report Released Date/Time: Mar 05, 2024 08:52 AM Reporting Lab: [facility] [address] [facility] [address] Performing Lab: [facility] 91 [facility] [address] [facility] COMPREHE NSIVE METABOLI C PANEL ALANINE AMINOTRANS FERASE [ENZYMATIC ACTIVITY/V OLUME] IN SERUM OR PLASMA 25 U/L 8 - 40 03/05 Specimen Type: PLASMA Comment: No hemolysis noted. Ordering Provider: MUKESH MARINELLI Report Released Date/Time: Mar 05, 2024 08:52 AM Reporting Lab: [address] [address] Performing Lab: [place] [address] [facility] [address] [facility] COMPREHE NSIVE METABOLI C PANEL GLOMERULAR FILTRATION RATE/1.73 SQ M.PREDICTE D [VOLUME RATE/AREA] IN SERUM, PLASMA OR BLOOD BY CREATININE -BASED FORMULA (CKD-EPI 2020) 108.5 60 03/05 Specimen Type: PLASMA Comment: No hemolysis noted. Ordering Provider: MUKESH MARINELLI Report Released Date/Time: Mar 05, 2024 08:52 AM Reporting Lab: [facility] [address] [facility] [address] Performing Lab: [place] [address] [facility] [address] [facility] CRP C REACTIVE PROTEIN [PRESENCE] IN SERUM OR PLASMA 0.6 mg/dL 0 - 0.5 01/25 H Specimen Type: PLASMA No comment entered. 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 Vital Sign Value Date Comments Source SYSTOLIC BLOOD PRESSURE 135 03/21/2024 12:20:00 [facility] DIASTOLIC BLOOD PRESSURE 83 03/21/2024 12:20:00 [facility] PAIN 6 03/21/2024 12:20:00 [facility] TEMPERATURE 99 03/21/2024 12:20:00 [facility] PULSE 128 03/21/2024 12:20:00 [facility] RESPIRATION 20 03/21/2024 12:20:00 [facility] SYSTOLIC BLOOD PRESSURE 101 03/16/2024 10:04:12 [facility] DIASTOLIC BLOOD PRESSURE 66 03/16/2024 10:04:12 [facility] PULSE OXIMETRY 98 03/16/2024 10:04:12 [facility] WEIGHT 195.5 03/16/2024 10:04:12 [facility] BMI 27kg/m2 03/16/2024 10:04:12 [facility] PAIN 6 03/16/2024 10:04:12 [facility] HEIGHT 71 03/16/2024 10:04:12 [facility] TEMPERATURE 97.7 03/16/2024 10:04:12 [facility] PULSE 107 03/16/2024 10:04:12 [facility] RESPIRATION 20 03/16/2024 10:04:12 [facility] SYSTOLIC BLOOD PRESSURE 134 03/05/2024 08:48:00 [facility] DIASTOLIC BLOOD PRESSURE 82 03/05/2024 08:48:00 [facility] PAIN 3 03/05/2024 08:48:00 [facility] TEMPERATURE 98 03/05/2024 08:48:00 [facility] PULSE 136 03/05/2024 08:48:00 [facility] RESPIRATION 18 03/05/2024 08:48:00 [facility] SYSTOLIC BLOOD PRESSURE 128 01/26/2024 13:15:48 [facility] DIASTOLIC BLOOD PRESSURE 86 01/26/2024 13:15:48 [facility] PULSE OXIMETRY 97 01/26/2024 13:15:48 [facility] WEIGHT 220.1 01/26/2024 13:15:48 [facility] BMI 31kg/m2 01/26/2024 13:15:48 [facility] PAIN 4 01/26/2024 13:15:48 [facility] HEIGHT 71 01/26/2024 13:15:48 [facility] TEMPERATURE 98 01/26/2024 13:15:48 [facility] PULSE 80 01/26/2024 13:15:48 [facility] RESPIRATION 16 01/26/2024 13:15:48 [facility] SYSTOLIC BLOOD PRESSURE 115 01/14/2024 08:55:32 [facility] DIASTOLIC BLOOD PRESSURE 76 01/14/2024 08:55:32 [facility] PULSE OXIMETRY 97 01/14/2024 08:55:32 [facility] WEIGHT 218.3 01/14/2024 08:55:32 [facility] BMI 31kg/m2 01/14/2024 08:55:32 [facility] PAIN 3 01/14/2024 08:55:32 [facility] TEMPERATURE 97.2 01/14/2024 08:55:32 [facility] PULSE 95 01/14/2024 08:55:32 [facility] RESPIRATION 16 01/14/2024 08:55:32 [facility] Encounters Combined list of: 1) Encounters from Department of [facility] 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 Location Location Details Encounter Type Encounter Number Reason For Visit Attending Provider ADM Date DC Date Status Disposition [facility] [id number] pan ADAM ADELA Ferris 05/08 Released w/o Limitations [facility]( Optomet ry Clinic) Otoniel [facility] Element) OUTPATIENT [id number] 21 YRS OLD WITH BACK AND GROIN PAIN/1 WEEK MONI ZAPATA 08/25 Released w/o Limitations [facility]( Family Practic e Clinic- [facility] Element ) Otoniel Em[facility]Mary [facility] - Main) OUTPATIENT [id number] lower back pain MEGAN JUSTYNA M 09/03 Released w/o Limitations [facility]( [facility] Physica l Therapy - Main) Otoniel [facility](ZZ IS) OUTPATIENT [id number] NON-FLY MORIAH TRAYLOR 04/26 Released w/o Limitations [facility]( [facility]) Otoniel ReyesMary [facility]( [facility]) OUTPATIENT [id number] Cough, TAY, Upset stomach MORIAH PHOENIX 01/08 [facility]itations [facility]toniel [facility]Mary [facility] Medicine Residency ) OUTPATIENT [id number] ÁLVARO RODRÍGUEZ 06/26 Released w/o Limitations [facility]( Family Medicin e Residen cy) Otoniel Re[facility]Mary [facility] Medicine Residency ) OUTPATIENT [id number] destinya DELANO Mahoney 11/06 Released w/o Limitations [facility]( Family Medicin e Residen cy) [employer](War rior Operation al Med A-AD) OUTPATIENT [id number] Rt shldr pain x awhile. BEL CABRERA Montserrat 02/04 Released w/o Limitations [employer](W arrior Operati onal Med A-AD) [employer](War rior Operation al Med A-AD) TELE CONSULT [id number] Needs profile seen PCM Jan. BEL CABRERA Monsterrat 03/04 [employer](W arrior Operati onal Med A-AD) [employer](OAB Emergency ) OUTPATIENT [id number] BOB GRIJALVA 03/17 Released w/o Limitations [employer](O AB Emergen cy) [employer](OAB Physical Therapy) OUTPATIENT [id number] right shoulde r THOMPSON Richey 03/18 Released w/o Limitations [employer](O AB Physica l Therapy ) [employer](OAB Physical Therapy) OUTPATIENT [id number] MATTHEW BOWMAN 03/26 Released w/o Limitations [employer](O AB Physica l Therapy ) [employer](OAB Physical Therapy) OUTPATIENT [id number] MATTHEW BOWMAN 03/31 Released w/o Limitations [employer](O AB Physica l Therapy ) [employer](OAB Physical Therapy) OUTPATIENT [id number] MARKEL LAZAR LP 04/09 Released w/o Limitations [employer](O AB Physica l Therapy ) [employer](OAB Physical Therapy) OUTPATIENT [id number] MARKEL LAZAR LP 04/10 Released w/o Limitations [employer](O AB Physica l Therapy ) [employer](OAB Physical Therapy) OUTPATIENT [id number] MATTHEW BOWMAN 04/18 Released w/o Limitations [employer](O AB Physica l Therapy ) [employer](OAB Physical Therapy) OUTPATIENT [id number] MARKEL LAZAR LP 04/19 Released w/o Limitations [employer](O AB Physica l Therapy ) [employer](OAB Physical Therapy) OUTPATIENT [id number] MATTHEW BOWMAN 04/23 Released w/o Limitations [employer](O AB Physica l Therapy ) [employer](OAB Physical Therapy) OUTPATIENT [id number] THOMPSON HURT 04/30 Released w/o Limitations [employer](O AB Physica l Therapy ) [employer](War rior Operation al Med A-AD) OUTPATIENT [id number] wrist prob BEL CABRERA R 05/17 Released w/o Limitations [employer](W arrior Operati onal Med A-AD) [employer](War rior Operation al Med A-AD) TELE CONSULT [id number] BLAINE MANCUSO 07/02 Other Not Elsewhere Classified [employer](W arrior Operati onal Med A-AD) [employer](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 Standards 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) OUTPATIENT [id number] PHA ELVIRA STOVER 08/08 Released w/o Limitations [employer](M edical Standar ds Managem ent) [employer](War rior Operation al Med A-AD) OUTPATIENT [id number] f/u last visit BEL CABRERA R 08/21 Released w/o Limitations [employer](W arrior Operati onal Med A-AD) [employer](OAB Physical Therapy) OUTPATIENT [id number] right humerus pain THOMPSON HRUT 09/24 Released w/o Limitations [employer](O AB Physica l Therapy ) [facility] Element B-1) OUTPATIENT [id number] bump on scalp and back IKE WICK 05/13 Released w/o Limitations [facility] Element B-1) [facility]ZRS N Deploymen t Hlth Assess) OUTPATIENT [id number] pre LOLIS PA 08/18 Released w/o Limitations [facility](ZZZ RSN Deploym ent Hlth Assess) [facility](N Mental Health) OUTPATIENT [id number] JAGDISH JENKINS 09/16 Released w/o Limitations [facility](N Mental Health) [facility] Element B-1) OUTPATIENT [id number] irritat ion around penis/ resched uled for a later date IKE WICK 09/23 Released w/o Limitations [facility] Element B-1) [facility] N Deploymen t Hlth Assess) OUTPATIENT [id number] Notes Entered by: Mark PRIEST 06 Oct 2011 1443 ------- ------- ------- ------- -- Pre Deploym ent Clearan CLAY Bolton 10/05 Released w/o Limitations [facility](ZZZ RSN Deploym ent Hlth Assess) Theater Facility OUTPATIENT [id number] 02/11 Released w/o Limitations Theater Fac[facility] y Theater Facility OUTPATIENT [id number] Theater Provider 04/11 Released w/o Limitations Theater Facilit y [facility] N Deploymen t Hlth Assess) TELE CONSULT [id number] Notes Entered by: FRANCK CANNON I 04 May 2012 0942 ------- ------- ------- ------- -- Mbr deploymanan escamilla to an endemic malaria s area LOLIS PA 05/04 [facility](ZZZ RSN Deploym ent Hlth Assess) [facility] Element B-1) TELE CONSULT [id number] Notes Entered by: Eri FLORES 04 Jun 2012 0728 ------- ------- ------- ------- -- Sorethr oat / poss strep / hard to swallow / with fever /x 2-3 days SANDRA AGUILAR 06/04 [facility] Element B-1) [facility] Emergency Room) OUTPATIENT [id number] Notes Entered by: JOSUÉ NEGRON 05 Jun 2012 1440 ------- ------- ------- ------- -- 27y/o Nacho barillas throat/ tay ALYSE BAY DARRYL 06/05 Released w/o Limitations [facility] Emergen cy Room) [facility] Element B-1) TELE CONSULT [id number] Notes Entered by: DAJUAN CASTILLO 07 Jun 2012 1558 ------- ------- ------- ------- -- SORE THROAT/ TROUBLE SWALLOW ING NANNETTE CROW 06/07 [facility] Element B-1) [facility] Element B-1) OUTPATIENT [id number] ongoing cold symptom s, unable to drink h2O (sore throat) nicolea CHAU Kent 06/08 [facility] Limitations [facility] Element B-1[facility] Element B-1) OUTPATIENT [id number] left testicl e pain x days painrat e 09/20 IKE WICK 07/21 Immediate Referral [facility] Element B-1) [facility]) OUTPATIENT [id number] Notes Entered by: JOSUÉ NEGRON 21 Jul 2012 1238 ------- ------- ------- ------- -- 27y/o M Testicl e px SALVADOR PEREZ 07/21 Released with Work/Duty Limitations [facility] Emergen cy Room) [facility] Element B-1) TELE CONSULT [id number] Notes Entered by: ILIA FORD 21 Jul 2012 1535 ------- ------- ------- ------- -- Needs er f/u appt NANNETTE CROW 07/21 [facility] Element B-1) [facility] N Deploymen t Hlth Assess) OUTPATIENT [id number] Notes Entered by: FRANCK CANNON I 12 Aug 2012 1305 ------- ------- ------- ------- -- DHA3 FRANCISCO GOSS 08/12 Released w/o Limitations [facility](ZZZ RSN Deploym ent Hlth Assess) [facility] Element B-1) OUTPATIENT [id number] right arm pain on and off is getting worse ARMIN VALDIVIA 11/15 [facility]ased w/o Limitations [facility] Element B-1) [facility] Physical Therapy) OUTPATIENT [id number] joint pain, localiz ed in the right shoulde TABATHA Jarrett 11/22 Released with Work/Duty Limitations [facility] Physica l Therapy ) [facility] Element B-1) OUTPATIENT [id number] bump in belt region x1mo ARMIN VALDIVIA A 01/14 [facility]ased w/o Limitations [facility] Element B-1) [facility] Element B-1) TELE CONSULT [id number] Notes Entered by: DREA BOLTON 18 Jan 2013 1054 ------- ------- ------- ------- -- RAD results [facility] 01/18 [facility] Element B-1) [facility] Element B-1) OUTPATIENT [id number] poss abscess lower abdomen [facility] 01/21 Released w/o Limitations [facility] Element B-1) [facility] General Surgery) OUTPATIENT [id number] Abdomen Mass (___ cm)/ new pt SUDARSHAN BROWN 01/31 Released w/o Limitations [facility] General Surgery ) [facility] Emergency Room) OUTPATIENT [id number] Notes Entered by: FLYNN CAMPBELL 01 Feb 2013 1438 ------- ------- ------- ------- -- 28 GRACE Mcnulty 02/01 Sick at Home/Quarter s [facility] Emergen cy Room) [facility] General Surgery) OUTPATIENT [id number] PER SUDARSHAN BULLOCK 02/02 Released w/o Limitations [facility] General Surgery ) [facility] General Surgery) OUTPATIENT [id number] f/u per SUDARSHAN Bullock 02/03 Released w/o Limitations [facility] General Surgery ) [facility] General Surgery) OUTPATIENT [id number] per SUDARSHAN Bullock 02/08 Released w/o Limitations [facility] General Surgery ) [facility] Element B-1) OUTPATIENT [id number] skin conditi on in genital area DONYA JULIAN 05/27 Released w/o Limitations [facility] Element B-1) [facility] Public Health) OUTPATIENT [id number] Notes Entered by: YASMEEN YOST 01 Jul 2013 1538 ------- ------- ------- ------- -- PCS YASMEEN Yan 07/01 Released w/o Limitations [facility] Public Health) [facility] Element B-1) TELE CONSULT [id number] Notes Entered by: VEDA WHITING 01 Sep 2013 1112 ------- ------- ------- ------- -- Presc refill needed for skin conditi on NANNETTE CROW 09/01 [facility] Element B-1) [facility] Emergency Room) OUTPATIENT [id number] Notes Entered by: HIRAL DEL CASTILLO 28 Sep 2013 0750 ------- ------- ------- ------- -- 28 yo MIGUEL Edwards 09/28 Released with Work/Duty Limitations [facility] Emergen cy Room) [facility] N PHA Cell) OUTPATIENT [id number] Notes Entered by: YASMEEN YOST 18 Oct 2013 1027 ------- ------- ------- ------- -- NFTF PHA YASMEEN CLIFTON 10/18 Released w/o Limitations [facility] PHA Cell) [facility] N Deploymen t Hlth Assess) OUTPATIENT [id number] FRANCISCO JAMES 11/16 Released w/o Limitations [facility](ZZZ RSN Deploym ent Hlth Assess) [facility](SDL In and Out Processin g) TELE CONSULT [id number] Notes Entered by: LUIS MAJANO 29 Dec 2013 0936 ------- ------- ------- ------- -- In-Proc LUIS Strickland 12/29 [facility](SDL In and Out Process ing) [facility] Team C) OUTPATIENT [id number] Upper back and neck pain ADAMA COCHRAN 01/24 Released w/o Limitations [facility]) [facility]) TELE CONSULT [id number] Notes Entered by: CARLOS PISANO 2014 0852 ------- ------- ------- ------- -- XRAY results JORDYN PISANO Hang 01/27 [facility]) [facility]) OUTPATIENT [id number] Follow- up. Arm, hand, neck, shoulde r, and back pain. ADAMA COCHRAN 02/14 Released w/o Limitations [facility]) [facility] Rheumatol [facility]gy) OUTPATIENT [id number] Diffuse joint pains (arthra lgias) SALAVDOR SHEEHAN 03/07 Released w/o Limitations [facility]umat ology) [facility]) OUTPATIENT [id number] follow up/ joint pain SALVADOR SHEEHAN 04/03 Released w/o Limitations [facility]umat [facility]log[facility]) [facility]) OUTPATIENT [id number] Follow up appt SALVADOR SHEEHAN 04/18 Released w/o Limitations [facility]) [facility] OUTPATIENT [id number] F/U on Profile ADAMA COCHRAN 04/20 Released w/o Limitations [facility]) [facility] [place] OUTPATIENT [id number] Eye exam startin g med show time 0900 BEBETO VILLAFANA 05/02 Released w/o Limitations [facility] Optomet ry) [facility] Rheumatol [facility]gy) OUTPATIENT [id number] follow up/meds SALVADOR SHEEHAN 05/31 Released w/o Limitations [facility]y) [facility] Optometry ) OUTPATIENT [id number] eye exam, on plaquen il BEBETO VILLAFANA 07/25 Released w/o Limitations [facility] Optomet ry) [facility]) OUTPATIENT [id number] Bump on top of head, have had it for a while but now it burst open. ADAMA COCHRAN 09/07 Released w/o Limitations [facility]) [facility]) TELE CONSULT [id number] LIMA CHRISTINE 09/12 [facility]) [facility]) OUTPATIENT [id number] possibl e cyst on left buttock s BENJAMIN BUENROSTRO 09/12 Released w/o Limitations [facility]) [facility]) OUTPATIENT [id number] cyst removal on scalp (consen t in [place]) ADAMA COCHRAN 09/14 Released w/o Limitations [facility]) [facility] Rheumatol ogy) TELE CONSULT [id number] Notes Entered by: Tenisha RICHARDS 20 Sep 2014 0809 ------- ------- ------- ------- -- Dr. Sheehan 's pt SALVADOR SHEEHAN 09/20 [facility](L Rheumat ology) [facility] Emergency Room) OUTPATIENT [id number] Notes Entered by: ROSIE QUEZADA 06 Oct 2014 1809 ------- ------- ------- ------- -- 29 y/o M, poss skin abscess CIERRA STEPHENS 10/06 Released w/o Limitations [facility](L Emergen cy Room) [facility]) OUTPATIENT [id number] Joint pains in wrists, ankles, heels. ADAMA COCHRAN 11/27 Released w/o Limitations [facility]) [facility] Rheumat[facility]gy) OUTPATIENT [id number] GUILLERMO IS ELISA MILES 12/06 Released w/o Limitations [facility] Rhe[facility]) [facility] Public Health) OUTPATIENT [id number] Notes Entered by: Senthil HAMEED 01 Feb 2015 0849 ------- ------- ------- ------- -- ANNUAL ALICIA JAMES E 02/01 Released w/o Limitations [facility] Public Health) [facility]) TELE CONSULT [id number] Notes Entered by: Senthil HAMEED 01 Feb 2015 0950 ------- ------- ------- ------- -- DARRYN JAVED 02/01 [facility]) [facility] BHOP) OUTPATIENT [id number] DARLENE Audit C-score 6, (-) ALLEGRA JOHNSON 02/05 Released w/o Limitations [facility](MAL BHOP) [facility]) OUTPATIENT [id number] ADAMA Hernandez 02/16 Released w/o Limitations [facility]) [facility] Rheumat[facility]gy) OUTPATIENT [id number] follow up ELISA MILES 03/12 Released w/o Limitations [facility] Rheumat [facility]logy) [facility]) OUTPATIENT [id number] MEB Follow- up JOHN DUMONT 03/16 Released w/o Limitations [facility]) [facility] Rheumatol [facility]gy) TELE CONSULT [id number] Notes Entered by: RABIA MILES 29 Mar 2015 1318 ------- ------- ------- ------- -- MRI f/u ELISA MILES 03/29 [facility] Rhe[facility]y) [facility] Rhe[facility]gy) OUTPATIENT [id number] follow up ELISA MILES 05/07 Released w/o Limitations [facility] Rheumat [facility]logy) [facility]) TELE CONSULT [id number] Notes Entered by: MARIS BADILLO 12 Jun 2015 1502 ------- ------- ------- ------- -- Initial /Annual RILO Results in JUD Gee 06/11 [facility]) [facility] L_FH_Clin ic_Team_B ) OUTPATIENT [id number] 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 LUIS A FORDE 08/15 Released w/o Limitations [facility] SD_FH_ Clinic_ Team_B) [facility]) TELE CONSULT [id number] Notes Entered by: MELE MANRIQUE 21 Aug 2015 1015 ------- ------- ------- ------- -- ASHLEY Bae 08/20 [facility]) [facility]) TELE CONSULT [id number] Notes Entered by: MELE MANRIQUE 24 Oct 2015 0804 ------- ------- ------- ------- -- ASHLEY Quintanilla 10/23 [facility]) [facility] L_FH_Clin ic_Team_B ) OUTPATIENT [id number] f/u er LUIS A Humphries 10/23 Released w/o Limitations [facility] SDL_FH_ Clinic_ Team_B) [facility] L_FH_Clin ic_Team_B ) OUTPATIENT [id number] Follow up on chest pain and cough CYNTHIA RANKIN 10/28 Released with Work/Duty Limitations [facility] SDL_FH_ Clinic_ Team_B) [facility]) TELE CONSULT [id number] Notes Entered by: MARIS BADILLO 25 Dec 2015 1101 ------- ------- ------- ------- -- AFPSHAW Keith 12/24 [facility]) [facility]) OUTPATIENT [id number] ADAMA Pedroza 01/07 Released w/o Limitations [facility]) [facility]) OUTPATIENT [id number] Vomitin g, diarrhe a and unable to hold down food or liquids LUIS A FORDE 02/25 Released w/o Limitations [facility]) [facility]) TELE CONSULT [id number] Notes Entered by: MARIS BADILLO 28 Feb 2016 1529 ------- ------- ------- ------- -- RESULTS OF Annual/ Initial NURIS PURCELL 02/27 [facility]) [facility] Base Op Med Cell) OUTPATIENT [id number] Notes Entered by: Mark BAKER 29 Feb 2016 0858 ------- ------- ------- ------- -- Annual PHA LUIS A FORDE 02/28 Released w/o Limitations [facility] Base Op Med Cell) [facility]) OUTPATIENT [id number] alma 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 ing CYNTHIA RANKIN 04/16 [facility]) OUTPATIENT [id number] shellfi sh allergy CYNTHIA RANKIN 04/23 [facility] Limitations [facility]) TELE CONSULT [id number] Notes Entered by: BRENNON ENGEL 26 May 2016 1217 ------- ------- ------- ------- -- resched AILIN Garcia 05/26 [facility]) [facility]) OUTPATIENT [id number] Knee pain when walking /CLAY Black 09/16 Released w/o Limitations [facility]) [facility]) OUTPATIENT [id number] Follow up ER visit: contusi on on toe CLAY FRANCISCO 10/06 Released w/o Limitations [facility]) [facility] Physical Therapy) OUTPATIENT [id number] Chondro malacia patella e, left knee OLIVIA BAXTER 10/07 Released w/o Limitations [facility] Physica l Therapy ) [facility]) TELE CONSULT [id number] Notes Entered by: MARIS BADILLO 08 Oct 2016 1511 ------- ------- ------- ------- -- RESULTS OF Annual/ Initial HERMAN ALVAREZ S 10/08 [facility]) [facility] Physical Therapy) OUTPATIENT [id number] JESSICA MOHAN 10/10 Released w/o Limitations [facility] Physica l Therapy ) [facility]) TELE CONSULT [id number] Notes Entered by: CRISTELA GARCIA 20 Oct 2016 0940 ------- ------- ------- ------- -- Network Results - Trauma and Joint Surgery - 09/2016 JOHN DUMONT 10/20 [facility]) [facility] Physical Therapy) OUTPATIENT [id number] JESSICA MOHAN 10/20 Released w/o Limitations [facility] Physica l Therapy ) [facility]) TELE CONSULT [id number] Notes Entered by: MARAH MIGUEL 28 Nov 2016 1330 ------- ------- ------- ------- -- Contact Pt about vasecto my appoint ment MARAH GUTIERREZ 11/28 [facility]) [facility]) OUTPATIENT [id number] Vasecto my Appoint ment FEMI BERT JENNIFER 11/28 Released w/o Limitations [facility]) [facility] Urology) OUTPATIENT [id number] Encount er for sterili zation ELISA BRINK 12/22 Released w/o Limitations [facility] Urology ) [facility]) TELE CONSULT [id number] Notes Entered by: BARRY POST 26 Dec 2016 1349 ------- ------- ------- ------- -- Request ing Rx for Albenda zole for pin worms BARRY POST 12/26 [facility] Urology) OUTPATIENT [id number] LIU Gallegos 01/21 [facility] Limitations [facility] U[facility]) OUTPATIENT [id number] Notes Entered by: MILIND LATHAM 30 Jan 2017 1444 ------- ------- ------- ------- -- walk in BARRY POST 01/30 Released w/o Limitations [facility]) [facility]) OUTPATIENT [id number] Pain on heel on left foot/Ja w pain on right of face. LAINEY CUBA 03/10 Released w/o Limitations [facility]) [facility] Op Med Cell) TELE CONSULT [id number] Notes Entered by: MARY ESPINOZA 12 Mar 2017 1220 ------- ------- ------- ------- -- Priorit SHAW Miller 03/12 [facility] Base Op Med Cell) [facility] BHOP) OUTPATIENT [id number] MARCELO CAUSEY 03/16 Released w/o Limitations [facility] BHOP) [facility]) OUTPATIENT [id number] BERT KELLEY 03/18 Released w/o Limitations [facility]) [facility]) OUTPATIENT [id number] vomitin g/diarr BERT Shelton 03/18 Released w/o Limitations [facility]) [facility]) TELE CONSULT [id number] Notes Entered by: Kelsie BURGESS 25 Mar 2017 1237 ------- ------- ------- ------- -- Lab results BARRY POST 03/25 [facility]) [facility]) OUTPATIENT [id number] severe jaw/ear pain LAINEY CUBA 07/23 Released w/o Limitations [facility]) [facility]) TELE CONSULT [id number] Notes Entered by: GLORIA VELASQUEZ 13 Oct 2017 1609 ------- ------- ------- ------- -- Medicat ion refill AILIN Correa 10/13 [facility]) [facility] Base Op Med Cell) OUTPATIENT [id number] KELLY RAHMAN 11/11 Released w/o Limitations [facility](SDL Base Op Med Cell) [facility] Mental Health) OUTPATIENT [id number] GERARDO CULVER 11/18 Released w/o Limitations [facility] Mental Health) [facility] Hearing Conservat ion) OUTPATIENT [id number] Notes Entered by: SHANNON CARVER 24 Nov 20172034 ------- ------- ------- ------- -- Referen Audiogr am CHANTELLE CARVER 11/24 Released w/o Limitations [facility] Hearing Conserv ation) [facility](SDL Base Op Med Cell) OUTPATIENT [id number] Notes Entered by: KELLY TIM 27 Jul 2018 1026 ------- ------- ------- ------- -- post deploym ent KELLY TIM 07/27 Released w/o Limitations [facility](SDL Base Op Med Cell) [facility] Base Op Med Cell) OUTPATIENT [id number] [facility]- [phone] KELLY TIM 09/08 Released w/o Limitations [facility] Base Op Med Cell) [facility] Base Op Med Cell) OUTPATIENT [id number] Notes Entered by: Ester FLORES 14 Sep 2018 0848 ------- ------- ------- ------- -- DoD MARYURI OSORIO 09/14 Released w/o Limitations [facility](SDL Base Op Med Cell) [facility]) OUTPATIENT [id number] pain in leg while working out CLAY ECHEVERRIA 09/20 Released w/o Limitations [facility] Physical Therapy) OUTPATIENT [id number] Pain in left knee PATSY MITCHELL 09/28 Released w/o Limitations [facility] Physica l Therapy ) [facility]) OUTPATIENT [id number] PAC 1330 Profile request for leg pain/PT TEST NEXT WEEK. DO NOT RESCHED MARYURI DE LA PAZ 09/29 Released w/o Limitations [facility]) [facility]) TELE CONSULT [id number] Notes Entered by: GERMAINE LUCIO 18 Oct 2018 0756 ------- ------- ------- ------- -- DEUCE Valenzuela 10/18 [facility]) [facility] Physical Therapy) OUTPATIENT [id number] LETHA OTERO 10/18 Released w/o Limitations [facility] Physica l Therapy ) [facility] Physical Therapy) OUTPATIENT [id number] AZ GONZALEZ 10/20 Released w/o Limitations [facility] Physica l Therapy ) [facility]) OUTPATIENT [id number] Sharp pain in throat MARYURI MCKAY 10/21 Released w/o Limitations [facility]) [facility]) TELE CONSULT [id number] Notes Entered by: MARIS BADILLO 22 Oct 2018 1444 ------- ------- ------- ------- -- RTD Notific ation due to change of MSD DONYA BARNEY 10/22 [facility]) [facility] Base Op Med Cell) OUTPATIENT [id number] DRHA3 [facility] [id number] KELLY TIM Alton 11/01 Released w/o Limitations [facility] Base Op Med Cell) [facility] Physical Therapy) OUTPATIENT [id number] PATSY MITCHELL 12/28 Released w/o Limitations [facility] Physica l Therapy ) [facility] Hearing Conservat ion) OUTPATIENT [id number] Notes Entered by: Mark WHYTE 04 Jan 2019 0838 ------- ------- ------- ------- -- Audiogr am SHPE MIKAYLA WHYTE 01/04 Released w/o Limitations [facility] Hearing Conserv ation) [facility]) OUTPATIENT [id number] 8 PAC SHPE 1240 MARYURI MCKAY 01/05 Released w/o Limitations [facility]) [facility] Optometry ) OUTPATIENT [id number] Eye Exam OG CHILD 02/03 Released w/o Limitations [facility](SDL Optomet ry) [facility] Physical Therapy) OUTPATIENT [id number] PATSY MITCHELL 02/03 Released w/o Limitations [facility] Physica l Therapy ) [facility]) TELE CONSULT [id number] Notes Entered by: BARRY POST 15 Feb 2019 0826 ------- ------- ------- ------- -- RELAY HEALTH: Request s MFR r/t kidney stone MARYURI MCKAY 02/15 [facility]) [facility]) TELE CONSULT [id number] Notes Entered by: BARRY POST 24 Feb 2019 1056 ------- ------- ------- ------- -- RELAY HEALTH: FAUSTO DONYA Giraldo 02/24 Released to Self Care [facility] Team [facility]) [facility] PT EDUCATION NOC INDIVID [id number] Diagnos is: ICD-10- CM 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
OSMANI ROBERTSON T 11/25 [facility] Outpatient Encounter [id number] 11/26 [facility] Outpatient Encounter [id number] DHARA JENKINS A 11/27 [facility] Outpatient Encounter [id number] HEPPAGAPITO L 12/05 [facility] Outpatient Encounter [id number] DEAN MORTON MMAD T 12/26 [facility] Outpatient Encounter [id number] 01/07 [facility] Outpatient Encounter [id number] Ester BECKWITH F 02/04 [facility] HC PRO PHONE CALL 21-30 MIN [id number] Diagnos is: ICD-10- CM Z91.89 Oth persona l risk factors , not elsewhe re classif ied<br/ > Ester BECKWITH F 02/05 [facility] Outpatient Encounter [id number] 2 03/24 [facility] Outpatient Encounter [id number] 03/27 [facility] Outpatient Encounter [id number] SABINA MARQUEZ 04/02 [facility] QNHP OL DIG ASSMT&MGMT 5-10 [id number] [id number] Diagnos is: ICD-10- CM U07.1 COVID-1 9
JERAD RAMIREZ 04/17 [facility] Outpatient Encounter [id number] 04/17 [facility] Outpatient Encounter [id number] 05/02 [facility] OFFICE O/P EST MOD 30 MIN [id number] Diagnos is: ICD-10- CM R05.2 Subacut e cough<b r/> YUSUF MUNSON EE L 05/20 [facility] Outpatient Encounter [id number] Diagnos is: ICD-10- CM R05.9 Cough, 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
DEAN MORTOND T 06/03 [facility] Outpatient Encounter [id number] 06/03 [facility] Outpatient Encounter [id number] MEGHAN FLORES 06/08 [facility] Outpatient Encounter [id number] MEGHAN FLORES 06/10 [facility] Outpatient Encounter [id number] 07/08 [facility] Outpatient Encounter [id number] MEGHAN FLORES 07/12 [facility] Outpatient Encounter [id number] [id number] MEGHAN FLORES 08/11 [facility] Outpatient Encounter [id number] [id number] JUDIEFILIPPO HansonKENIA P 08/11 [facility] N [facility] QNHP OL DIG ASSMT&MGMT 5-10 [id number] Diagnos is: ICD-10- CM R94.5 Abnorma l results of liver functio n studies
JUDIEFILIPPO HansonKENIA P 08/11 [facility] Outpatient Encounter [id number] 2 08/12 [facility] PSYTX W PT 30 MINUTES [id number] [id number] Diagnos is: ICD-10- CM Z63.0 Problem s in relatio nship with spouse or partner
OSMANI ROBERTSON T 08/13 [facility] Outpatient Encounter [id number] 08/16 [facility] Outpatient Encounter [id number]. [id number] 08/17 [facility] Outpatient Encounter [id number] OSMANI ROBERTSON T 08/18 [facility] Outpatient Encounter [id number] MEGHAN FLORES 08/18 [facility] Outpatient Encounter [id number] [id number] Ester GUAJARDO 09/01 [facility] Outpatient Encounter [id number] 09/17 [facility] Outpatient Encounter [id number] [id number] 2 10/06 [facility] OFFICE O/P EST MOD 30 MIN [id number] [id number] Diagnos is: ICD-10- CM R05.3 Chronic cough<b r/> GENO ALVARADOKelsie 10/13 [facility] SPACER WITHOUT MASK [id number] [id number] Diagnos is: ICD-10- CM R05.3 Chronic cough<b r/> ROBERT SWANN 10/13 [facility] Outpatient Encounter [id number] 5 10/18 [facility] Outpatient Encounter [id number] [id number] 2 10/19 [facility] Outpatient Encounter [id number] [id number] 2 Ester GUAJARDO A 10/25 [facility] Outpatient Encounter [id number] [id number] MEGHAN FLORES 11/11 [facility] Outpatient Encounter [id number] Ester GUAJARDO A 11/11 [facility] QNHP OL DIG ASSMT&MGMT 5-10 [id number] [id number] Diagnos is: ICD-10- CM R05.3 Chronic cough<b r/> Ester GUAJARDO A 11/12 [facility] Outpatient Encounter [id number] DEAN MORTON MMAD T 11/17 [facility] Outpatient Encounter [id number] [id number] MEGHAN FLORES 11/22 [facility] OFFICE O/P EST MOD 30 MIN [id number] [id number] Diagnos is: ICD-10- CM H60.92 Unspeci fied otitis externa , left ear<br/ > DEAN MORTON MMAD T 11/24 [facility] Outpatient Encounter [id number] 11/25 [facility] HC PRO PHONE CALL 21-30 MIN [id number] Diagnos is: ICD-10- CM F43.10 Post-tr aumatic stress disorde r, 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
SANTI TRUJILLO L 11/26 [facility] Outpatient Encounter [id number] SANTI TRUJILLO L 11/30 [facility] HC PRO PHONE CALL 5-10 MIN [id number] Diagnos is: ICD-10- CM G47.00 Insomni a, 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
SANTI TRUJILLO L 11/30 [facility] Outpatient Encounter [id number] DEAN MORTON MMAD T 12/[address] [facility] Outpatient Encounter [id number] 12/06 [facility] Outpatient Encounter [id number] 12/10 [facility] Outpatient Encounter [id number] Ester GUAJARDO A 12/28 [facility] Outpatient Encounter [id number] 01/05 [facility] Outpatient Encounter [id number] [id number] Diagnos is: ICD-10- CM M79.643 Pain in 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 hand
Ester ESPINOZA ONSTANCE D 01/05 [facility] Outpatient Encounter [id number] MARGARET GARCÍA 01/08 [facility] EMERGENCY DEPT VISIT MOD MDM [id number] Diagnos is: ICD-10- CM G56.03 Carpal tunnel syndrom e, bilater al upper limbs<b r/> BING ORTIZ 01/08 [facility] Outpatient Encounter [id number] MARGARET GARCÍA C 01/08 [facility] OFF/OP EST MAY X REQ PHY/QHP [id number] Diagnos is: ICD-10- CM Z23 Encount er for immuniz ation<b r/> JAZMINE ROBERT 01/08 [facility] PROGRAM INTAKE ASSESSMENT [id number] [id number] Diagnos is: ICD-10- CM R05.9 Cough, 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
ROSIE LAKHANI TAY R 01/13 [facility] OFFICE O/P EST MOD 30 MIN [id number] Diagnos is: ICD-10- CM R05.3 Chronic cough<b r/> ANAYA RI 01/13 [facility] Outpatient Encounter [id number] 01/19 [facility] Outpatient Encounter [id number] 01/19 [facility] Outpatient Encounter [id number] [id number] Diagnos is: ICD-10- CM M25.50 Pain in 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 joint<b r/> JORGITOCATHI Butterfield R 01/19 [facility] Outpatient Encounter [id number] Ester BECKWITH 01/21 [facility] OFF/OP EST MAY X REQ PHY/QHP [id number] [id number] Diagnos is: ICD-10- CM 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
Ester BECKWITH F 01/21 [facility] OFFICE O/P EST MOD 30 MIN [id number] Diagnos is: ICD-10- CM M13.139 Monoart hritis, not elsewhe re classif ied, 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 wrist<b r/> SELENE,MOHA MMAD T 01/25 [facility] Outpatient Encounter [id number] [facility]26 [facility]ER[facility] [id number] [id number] Diagnos is: ICD-10- CM R49.8 Other voice and resonan ce disorde rs
VIRAJ BAKER N 01/27 [facility] Outpatient Encounter [id number] [id number] KUNAL ALEGRE 01/31 [facility] Outpatient Encounter [id number] SELENEDEAN MMAD T 02/[address] [facility] FAMILY PSYTX W/PT 50 MIN [id number] [id number] Diagnos is: ICD-10- CM Z63.0 Problem s in relatio nship with spouse or partner
KING NOELA A 02/01 [facility] Outpatient Encounter [id number] [id number] MEGHAN FLORES 02/02 [facility] Outpatient Encounter [id number] [id number] MEGHAN FLORES 02/02 [facility] MUSCLE TEST NONPARASPI NAL [id number] [id number] Diagnos is: ICD-10- CM G56.03 Carpal tunnel syndrom e, bilater al upper limbs<b r/> GAYLE AG 02/07 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
KYLAH STEVENS 02/08 [facility] Outpatient Encounter [id number] [id number] KYLAH STEVENS 02/10 [facility] Outpatient Encounter [id number] [id number] MEGHAN FLORES 02/15 [facility] Outpatient Encounter [id number] [id number] Diagnos is: ICD-10- CM G56.03 Carpal tunnel syndrom e, bilater al upper limbs<b r/> CATHI BULL R 02/16 [facility] Outpatient Encounter [id number] [id number] MEGHAN FLORES 02/22 [facility] Outpatient Encounter [id number] [id number] Diagnos is: ICD-10- CM G47.00 Insomni a, 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
DEAN MORTON MMAD T 02/24 [facility] Outpatient Encounter [id number] [id number] 03/02 [facility] Outpatient Encounter [id number] [id number] 03/04 [facility] Outpatient Encounter [id number] [id number] 03/04 [facility] Outpatient Encounter [id number] [id number] Ester BECKWITH F 03/04 [facility] Outpatient Encounter [id number] [id number] MUKESH MARINELLI S 03/05 [facility] EMERGENCY DEPT VISIT [facility] [id number] [id number] Diagnos is: ICD-10- CM R07.9 Chest pain, 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
Ester BECKWITH F 03/08 [facility] OFF/OP CNSLTJ NEW/EST LOW 30 [id number] [id number] Diagnos is: ICD-10- CM G56.03 Carpal tunnel syndrom e, bilater al upper limbs<b r/> PREVEL,CHR ISTOPHER D 03/14 [facility] OFFICE O/P EST HI 40 MIN [id number] [id number] Diagnos is: ICD-10- CM G56.00 Carpal tunnel syndrom e, 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 upper limb
COUPER,ISAIAS LOPEZ G 03/16 [facility] Outpatient Encounter [id number] [id number] MEGHAN FLORES 03/16 [facility] Outpatient Encounter [id number] [id number] MEGHAN FLORES D 03/17 [facility] EMR DPT VST MAYX REQ PHY/QHP [id number] [id number] Diagnos is: ICD-10- CM Z53.21 Proc/tr tmt not crd out d/t pt lv bef seen by [facility] care prov
ANGELA MONTANO 03/21 [facility] Outpatient Encounter [id number] DEAN MORTON MMAD T 03/27 [facility] Outpatient Encounter [id number] DEAN MORTON MMAD T 03/29 [facility] FAMILY PSYTX W/PT 50 MIN [id number] [id number] Diagnos is: ICD-10- CM Z63.0 Problem s in relatio nship with spouse or partner
KING NOEL A 04/01 [facility] Outpatient Encounter [id number] 04/03 [facility] Outpatient Encounter [id number] [id number] LETI CADENA N 04/08 [facility] Procedures Combined list of: 1) Procedures from Department of [facility] Affairs facilities going back up to thelast 18 months, not all [place] non-surgical procedures are included; 2) All procedures from the Department of Defense facilities. Procedure Procedure Type Code Date Perfomer Comments Sourc e Preventive Medicine Administration Of Health Risk Questionnaire Patient-Focused Preventive Medicine Administration Of Health Risk Questionnaire Patient-Focused 44211 2018 KELLY TIM [facility] Internet Med Svc Qual Nonphys Healthcare Prof Up To 7 Days Estab Patient Internet Med Svc Qual Nonphys Healthcare Prof Up To 7 Days Estab Patient 52569 2018 KELLY TIM [facility] Physical Therapy Neuromuscular Re-education Physical Therapy Neuromuscular Re-education 42470 2018 [place] GONZALEZ PT A e ment Kinetic Training Each Additional 15 Minutes PT Assessment Kinetic Training Each Additional 15 Minutes 54313 2018 [place] GONZALEZ Physical Therapy: ___ Se ion Segments, 15 Minutes Each Physical Therapy: ___ Session Segments, 15 Minutes Each 00209 2018 [place] GONZALEZ Modalities Vasopneumatic Device Modalities Vasopneumatic Device 12020 2018 LETHA OTERO PT A e ment Kinetic Training Each Additional 15 Minutes PT Assessment Kinetic Training Each Additional 15 Minutes 73872 2018 LETHA OTERO Physical Therapy Neuromuscular Re-education Physical Therapy Neuromuscular Re-education 51893 2018 LETHA OTERO [facility] Physical Therapy: ___ Se ion Segments, 15 Minutes Each Physical Therapy: ___ Session Segments, 15 Minutes Each 47769 2018 LETHA OTERO [facility] Osteopathic Manip Treatment (OMT) 1-2 Body Regions Involved Osteopathic Manip Treatment (OMT) 1-2 Body Regions Involved 76399 2018 PATSY MITCHELL [facility] Physical Therapy Service Evaluation Low Complexity Physical Therapy Service Evaluation Low Complexity 62967 2018 PATSY MITCHELL [facility] Preventive Medicine Administration Of Health Risk Questionnaire Patient-Focused Preventive Medicine Administration Of Health Risk Questionnaire Patient-Focused 72987 2018 CELE MICHAEL [facility] Internet Med Svc Qual Nonphys Healthcare Prof Up To 7 Days Estab Patient Internet Med Svc Qual Nonphys Healthcare Prof Up To 7 Days Estab Patient 45804 2018 KELLY TIM [facility] Preventive Medicine Administration Of Health Risk Questionnaire Patient-Focused Preventive Medicine Administration Of Health Risk Questionnaire Patient-Focused 44890 2018 KELLY TIM [facility] Preventive Medicine Administration Of Health Risk Questionnaire Patient-Focused Preventive Medicine Administration Of Health Risk Questionnaire Patient-Focused 83298 2018 KELLY TIM [facility] Internet Med Svc Qual Nonphys Healthcare Prof Up To 7 Days Estab Patient Internet Med Svc Qual Nonphys Healthcare Prof Up To 7 Days Estab Patient 85869 2018 KELLY TIM [facility] Threshold Audiogram (Pure Tone) Automated Threshold Audiogram (Pure Tone) Automated 0208T 2017 CHANTELLE CARVER [facility] Psychometric Neuropsych Testing Battery Admin By Computer Psychometric Neuropsych Testing Battery Admin By Computer 85386 2017 GERARDO MONTIEL [facility] Preventive Medicine Administration Of Health Risk Questionnaire Patient-Focused Preventive Medicine Administration Of Health Risk Questionnaire Patient-Focused 63116 2017 KELLY TIM [facility] Internet Med Svc Qual Nonphys Healthcare Prof Up To 7 Days Estab Patient Internet Med Svc Qual Nonphys Healthcare Prof Up To 7 Days Estab Patient 91082 2017 KELLY TIM [facility] Non-Physician Phone Call To Patient/Provider Brief (5-10min) Non-Physician Phone Call To Patient/Provider Brief (5-10min) 44723 2016 BARRY POST Internet Med Svc Qual Nonphys Healthcare Prof Up To 7 Days Estab Patient Internet Med Svc Qual Nonphys Healthcare Prof Up To 7 Days Estab Patient 52928 2016 MARCELO MALCOLM Non-Physician Phone Call To Patient/Provider Brief (5-10min) Non-Physician Phone Call To Patient/Provider Brief (5-10min) 05043 2016 BARRY POST Anesthesia Lower Abdomen For Vasectomy, Unilateral/Bilateral Anesthesia Lower Abdomen For Vasectomy, Unilateral/Bilater al 32465 2016 LIU BARKLEY Surgery Vas Deferens Vasectomy Surgery Vas Deferens Vasectomy 28898 2016 LIU BARKLEY Non-Physician Phone Call To Pt/Provider Lengthy (21-30 min) Non-Physician Phone Call To Pt/Provider Lengthy (21-30 min) 33829 2016 BARRY POST Physician Supervised Group Educational Services Physician Supervised Group Educational Services 23053 2016 ELISA BRINK [facility] Psychometric Emotional / Behavioral A e ment Psychometric Emotional / Behavioral Assessment 55955 2016 BERT KAHN [facility] Modalities Cryotherapy Cold Packs Modalities Cryotherapy Cold Packs 61036 2016 JESSICA MOHAN A isted Exercises For ROM Assisted Exercises For ROM 29820 2016 JESSICA MOHAN A isted Exercises For ROM Assisted Exercises For ROM 91127 2016 JESSICA MOHAN Physical Therapy Service Evaluation Low Complexity Physical Therapy Service Evaluation Low Complexity 52551 2016 OLIVIA BAXTER Internet Med Svc Qual Nonphys Healthcare Prof Up To 7 Days Estab Patient Internet Med Svc Qual Nonphys Healthcare Prof Up To 7 Days Estab Patient 81638 2016 ASHLEY ENGEL [facility] Health And Behav A e mt Each 15 Min Initial A e ment Health And Behav Assessmt Each 15 Min Initial Assessment 52878 2014 ALLEGRA LASSITER [facility] Visual Valdivia Test Intermediate Examination Visual Valdivia Test Intermediate Examination 10825 2014 BEBETO VILLAFANA [facility] Scanning Computerized Ophthalmic Diagnostic Imaging Retina Scanning Computerized Ophthalmic Diagnostic Imaging Retina 06967 2014 BEBETO VILLAFANA [facility] Scanning Computerized Ophthalmic Diagnostic Imaging Retina Scanning Computerized Ophthalmic Diagnostic Imaging Retina 10797 2014 BEBETO VILLAFANA [facility] Determination Of Refractive State Determination Of Refractive State 64084 2014 BEBETO VILLAFANA Ophthalmological New Patient Start Comprehensive Care Ophthalmological New Patient Start Comprehensive Care 81161 2014 BEBETO VILLAFANA [facility] Postoperative Visit, Without Charge Postoperative Visit, Without Charge 48377 2012 SUDARSHAN BROWN Incision And Drainage Of Skin Absce Incision And Drainage Of Skin Abscess 96160 2012 SUDARSHAN BROWN He was consented, prepped and draped in the usual sterile fashion. Local anesthetic was infection and an incision was made down to the area of induration. No further fluid was drained and the pervious I&D site was found to communicated with the area of induration. Both areas were irrigated, packed and dressed with gauze. The patient tolerated the procedure well. [facility] Physical Therapy: ___ Se ion Segments, 15 Minutes Each Physical Therapy: ___ Session Segments, 15 Minutes Each 56389 2012 TABATHA CROCKETT [facility] Physical Therapy Service Evaluation Physical Therapy Service Evaluation 58852 2012 TABATHA CROCKETT [facility] Psychometric Neuropsych Testing Battery Admin By Computer Psychometric Neuropsych Testing Battery Admin By Computer 71759 2011 JAGDISH JENKINS [facility] Physical Therapy: ___ Se ion Segments, 15 Minutes Each Physical Therapy: ___ Session Segments, 15 Minutes Each 24404 2010 THOMPSON HURT [facility] Physical Therapy Service Re-Evaluation Physical Therapy Service Re-Evaluation 16885 2010 THOMPSON HURT [facility] Non-Physician Phone Call To Patient/Provider Brief (5-10min) Non-Physician Phone Call To Patient/Provider Brief (5-10min) 26899 2010 BLAINE LOYD [facility] Physical Therapy Service Re-Evaluation Physical Therapy Service Re-Evaluation 75144 2010 THOMPSON HURT [facility] Modalities Ultrasound Modalities Ultrasound 47180 2010 MATTHEW BOWMAN [facility] Physical Therapy Neuromuscular Re-education Physical Therapy Neuromuscular Re-education 55045 2010 MATTHEW BOWMAN [facility] Physical Therapy: ___ Se ion Segments, 15 Minutes Each Physical Therapy: ___ Session Segments, 15 Minutes Each 89741 2010 MATTHEW BOWMAN [facility] Modalities Ultrasound Modalities Ultrasound 87044 2010 MARKEL LAZAR LP [facility] Physical Therapy: ___ Se ion Segments, 15 Minutes Each Physical Therapy: ___ Session Segments, 15 Minutes Each 92557 2010 MARKEL LAZAR LP [facility] Physical Therapy Neuromuscular Re-education Physical Therapy Neuromuscular Re-education 38953 2010 MARKEL LAZAR LP [facility] Modalities Ultrasound Modalities Ultrasound 51072 2010 MATTHEW BOWMAN Physical Therapy Neuromuscular Re-education Physical Therapy Neuromuscular Re-education 37326 2010 MATTHEW BOWMAN [facility] Physical Therapy: ___ Se ion Segments, 15 Minutes Each Physical Therapy: ___ Session Segments, 15 Minutes Each 80529 2010 MATTHEW BOWMAN [facility] Modalities Ultrasound Modalities Ultrasound 91006 2009 MARKEL LAZAR LP [facility] Physical Therapy Neuromuscular Re-education Physical Therapy Neuromuscular Re-education 70217 2009 MARKEL LAZAR LP [facility] Physical Therapy: ___ Se ion Segments, 15 Minutes Each Physical Therapy: ___ Session Segments, 15 Minutes Each 54306 2009 MARKEL LAZAR LP [facility] Modalities Ultrasound Modalities Ultrasound 29007 2009 MARKEL LAZAR LP [facility] Physical Therapy Neuromuscular Re-education Physical Therapy Neuromuscular Re-education 08885 2009 MARKEL LAZAR LP [facility] Physical Therapy: ___ Se ion Segments, 15 Minutes Each Physical Therapy: ___ Session Segments, 15 Minutes Each 89872 2009 MARKEL LAZAR LP [facility] Modalities Ultrasound Modalities Ultrasound 42214 2009 MATTHEW BOWMAN [facility] Physical Therapy Neuromuscular Re-education Physical Therapy Neuromuscular Re-education 13797 2009 MATTHEW BOWMAN [facility] Physical Therapy: ___ Se ion Segments, 15 Minutes Each Physical Therapy: ___ Session Segments, 15 Minutes Each 36994 2009 MATTHEW BOWMAN [facility] Modalities Ultrasound Modalities Ultrasound 57674 2009 MATTHEW BOWMAN Physical Therapy Neuromuscular Re-education Physical Therapy Neuromuscular Re-education 12453 2009 MATTHEW BOWMAN Physical Therapy: ___ Se ion Segments, 15 Minutes Each Physical Therapy: ___ Session Segments, 15 Minutes Each 19645 2009 MATTHEW BOWMAN Physical Therapy: ___ Se ion Segments, 15 Minutes Each Physical Therapy: ___ Session Segments, 15 Minutes Each 58788 2009 THOMPSON HURT Physical Therapy Service Evaluation Physical Therapy Service Evaluation 03721 2009 THOMPSON HURT Audiogram (Screening) Audiogram (Screening) 59595 2008 MORIAH PHOENIX Visual Valdivia Test Limited Examination Visual Valdivia Test Limited Examination 24175 2008 MORIAH PHOENIX Physical Therapy Service Evaluation Physical Therapy Service Evaluation 09884 2006 JUSTYNA GUZMAN [facility] Osteopathic Manip Treatment (OMT) 1-2 Body Regions Involved Osteopathic Manip Treatment (OMT) 1-2 Body Regions Involved 30624 2006 MONI ZAPATA [facility] Spectacles Services Fitting Monofocal Except For Aphakia Spectacles Services Fitting Monofocal Except For Aphakia 31162 2006 ADELA MEDINA Determination Of Refractive State Determination Of Refractive State 12227 2006 ADELA MEDINA [facility] Ophthalmological New Patient Start Comprehensive Care Ophthalmological New Patient Start Comprehensive Care 16663 2006 ADELA MEDINA [facility] Physical Therapy Service Re-Evaluation Physical Therapy Service Re-Evaluation 82999 PATSY MITCHELL [facility] Osteopathic Manip Treatment (OMT) 1-2 Body Regions Involved Osteopathic Manip Treatment (OMT) 1-2 Body Regions Involved 61719 PATSY MITCHELL [facility] Physical or manipulative therapy performed for maintenance rather than religion PATSY MITCHELL [facility] Threshold Audiogram (Pure Tone) Automated Threshold Audiogram (Pure Tone) Automated 0208T MIKAYLA WHYTE [facility] Spectacles Services Fitting Monofocal Except For Aphakia Spectacles Services Fitting Monofocal Except For Aphakia 33863 OG CHILD 52145 5A 52145 [facility] Ophthalmological New Patient Start Comprehensive Care Ophthalmological New Patient Start Comprehensive Care 05935 CARMENOG JAIN Sreedhar [facility] Determination Of Refractive State Determination Of Refractive State 53116 CARMENOG JAIN Sreedhar [facility] INFUSION, NORMAL SALINE SOLUTION , 1000 CC 2008 DoD PHYSICAL THERAPY EVALUATION 2006 [facility] OSTEOPATHIC MANIPULATIVE TREATMENT (OMT); 1-2 BODY REGIONS INVOLVED 2006 [facility] FITTING OF SPECTACLES, EXCEPT FOR APHAKIA; MONOFOCAL 2006 [facility] THERAPEUTIC PROCEDURE, 1 OR MORE AREAS, EACH 15 MINUTES; THERAPEUTIC EXERCISES TO DEVELOP STRENGTH AND ENDURANCE, RANGE OF MOTION AND FLEXIBILITY 2010 DoD TELE ASSESS & MGT SRV PROV [...] ENDURANCE, RANGE OF MOTION AND FLEXIBILITY 2009 [facility] INJECTION, METHYLPREDNISOLONE SODIUM SUCCINATE, UP TO 125 MG 2009 [facility] PHYSICAL OR MANIPULATIVE THERAPY PERFORMED FOR MAINTENANCE RATHER THAN SCIENTOLOGY 2018 [facility] DETERMINATION OF REFRACTIVE STATE 2018 [facility] PURE TONE AUDIOMETRY (THRESHOLD), AUTOMATED; AIR ONLY 2018 [facility] PHYSICAL OR MANIPULATIVE THERAPY PERFORMED FOR MAINTENANCE RATHER THAN SCIENTOLOGY 2018 [facility] ADMINISTRATION OF PATIENT-FOCUSED HEALTH RISK ASSESSMENT INSTRUMENT (EG, HEALTH HAZARD APPRAISAL) WITH SCORING AND DOCUMENTATION, PER STANDARDIZED INSTRUMENT 2018 [facility] THERAPEUTIC ACTIVITIES, DIRECT (ONE-ON-ONE) PATIENT CONTACT (USE OF DYNAMIC ACTIVITIES TO IMPROVE FUNCTIONAL PERFORMANCE), EACH 15 MINUTES 2018 [facility] APPLICATION OF A MODALITY TO 1 OR MORE AREAS; VASOPNEUMATIC DEVICES 2018 [facility] OSTEOPATHIC MANIPULATIVE TREATMENT (OMT); 1-2 BODY [...] TONE AUDIOMETRY (THRESHOLD), AUTOMATED; AIR ONLY 2017 [facility] NEUROPSYCHOLOGICAL TESTING (EG, [place] CARD SORTING TEST), ADMINISTERED BY A COMPUTER, WITH QUALIFIED HEALTH SPRING FORMER HAND INTERPRETATION AND REPORT 2017 DoD ADMINISTRATION OF [...] PROVIDE W/IN THE PREV 7 DAYS,USE THE [employer]WORK 2016 DoD TELE ASSESS & MGT SRV PROV QUAL NONPHYS HLTH CARE PRO TO EST PAT,PARENT,GUARD NOT ORIG REL ASSESS & MGT SRV PROV W/IN PREV 7 DAYS NOR LEAD ASSESS & MGT SRV/PX W/IN NXT 24 HR/SOON APT;5-10 MIN MED DIS 2016 DoD ANESTHESIA FOR PROCEDURES ON MALE GENITALIA (INCLUDING OPEN URETHRAL PROCEDURES); VASECTOMY, UNILATERAL/BILATERAL 2016 [facility] PHYS/OTH QUALIFIED HEALTH SPRING FORMER HAND QUALIFIED,EDUCATION,TR AIN,LICENSURE/REGULATI ON (WHEN APPLICABLE) EDUC SER RENDERED TO PATS IN A GRP SETTING (EG,,OBESITY,O R DIABETIC INSTRUCT) 2016 [facility] BRIEF EMOTIONAL/BEHAVIORAL ASSESSMENT (EG, DEPRESSION INVENTORY, ATTENTION-DEFICIT/HYPE RACTIVITY DISORDER [ADHD] SCALE), WITH SCORING AND DOCUMENTATION, PER STANDARDIZED INSTRUMENT 2016 [facility] APPLICATION OF A MODALITY TO 1 OR MORE AREAS; HOT OR COLD PACKS 2016 [facility] THERAPEUTIC PROCEDURE, 1 OR MORE AREAS, EACH 15 MINUTES; THERAPEUTIC EXERCISES TO DEVELOP STRENGTH AND ENDURANCE, RANGE OF MOTION AND FLEXIBILITY 2016 [facility] PHYSICAL THERAPY EVALUATION:LOW COMPLEXITY,REQ:HIST W NO PERS FACT &/COMORB THAT IMPACT PLAN OF CARE;CLIN DECIS MAKING OF LOW COMPLEXITY,TYPICALLY,2 0 MIN ARE SPENT [id number] W THE PATIENT &/FAMILY 2016 [facility] ONLINE ASSESS &MANAG SERV PROVIDE,A QUAL NONPHYS HCP TO AN ESTABLISHED PAT/GUARDIAN,NOT [facility] ASSESS &MANAG SERV PROVIDE W/IN THE PREV 7 DAYS,USE THE [employer] NETWORK 2016 [facility] HEALTH&BEHAV ASSESSMENT (EG, HEALTH-FOC CLINICAL INTERVIEW, BEHAVIORAL OBSERVATIONS, PSYCHOPHYSICOLOGICAL MONITOR, HEALTH-ORIENT QUESTIONNAIRES), EA 15 MIN [id number] W THE PATIENT; INIT ASSESSMENT 2014 [facility] VISUAL FIELD EXAMINATION, UNI OR BILATERAL, WITH MEDICAL DIAGNOSTIC EVAL; INTERMEDIATE EXAM (EG, AT LEAST 2 ISOPTERS ON GOLDMANN PERIMETER, OR SEMIQUANT, AUTO SUPRATHRESHOLD SCREEN PROGRAM, MARSHALL 2014 [facility] SCANNING COMPUTERIZED OPHTHALMIC DIAGNOSTIC IMAGING, POSTERIOR SEGMENT, WITH INTERPRETATION AND REPORT, UNILATERAL OR BILATERAL; RETINA 2014 [facility] THERAPEUTIC, PROPHYLACTIC, OR DIAGNOSTIC INJECTION (SPECIFY SUBSTANCE OR DRUG); SUBCUTANEOUS OR INTRAMUSCULAR 2013 [facility] POSTOPERATIVE FOLLOW-UP VISIT, NORMALLY INCLUDED IN THE SURGICAL PACKAGE, INDICATE THAT EVALUATION & MANAGEMENT SERVICE WAS PERFORMED DURING A POSTOPERATIVE PERIOD REASON RELATED ORIGINAL PROCEDURE 2012 [facility] POSTOPERATIVE FOLLOW-UP VISIT, NORMALLY INCLUDED IN THE SURGICAL PACKAGE, INDICATE THAT EVALUATION & MANAGEMENT SERVICE WAS PERFORMED DURING A POSTOPERATIVE PERIOD REASON RELATED ORIGINAL PROCEDURE 2012 [facility] INCISION AND DRAINAGE OF ABSCESS (EG, CARBUNCLE, SUPPURATIVE HIDRADENITIS, CUTANEOUS OR SUBCUTANEOUS ABSCESS, CYST, FURUNCLE, OR PARONYCHIA); SIMPLE OR SINGLE 2012 [facility] INCISION AND DRAINAGE OF ABSCESS (EG, CARBUNCLE, SUPPURATIVE HIDRADENITIS, CUTANEOUS OR SUBCUTANEOUS ABSCESS, CYST, FURUNCLE, OR PARONYCHIA); COMPLICATED OR MULTIPLE 2012 [facility] THERAPEUTIC PROCEDURE, 1 OR MORE AREAS, EACH 15 MINUTES; THERAPEUTIC EXERCISES TO DEVELOP STRENGTH AND ENDURANCE, RANGE OF MOTION AND FLEXIBILITY 2012 [facility] NEUROPSYCHOLOGICAL TESTING (EG, [place] CARD SORTING TEST), ADMINISTERED BY A COMPUTER, WITH QUALIFIED HEALTH SPRING FORMER HAND INTERPRETATION AND REPORT 2011 [facility] Social History Combined list of available smoking, tobacco, and other 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 Social History Type Response Date Comment [facility] e Tobacco smoking status NHIS [place]TO[place] FORMER USER 05/20/2023 [facility] History of tobacco use [place] 15 YRS OR MORE 05/20/2023 [facility] History of tobacco use [place] NEVER USED 05/28/2022 [facility] History of tobacco use [place] NEVER USED 02/26/2021 [facility] This section is an empty social history section. DoD Plan of Care List of future care activities from [facility] 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 Additional future care activities may be listed in the Assessment and Plan section. Date/Time Care Activity Care Activity Detail Facili ty 04/18/2024 AMBULATORY - PSYCHIATRY AMBULATORY - PSYC [facility] 04/28/2024 AMBULATORY - MEDICINE [facility] 05/05/2024 AMBULATORY - MEDICINE AMBULATORY - MEDICI [facility] 05/27/2024 AMBULATORY - MEDICINE AMBULATORY - MEDICI [facility] 03/16/2024 Consult Order COMMUNITY CARE-S TL PLASTIC SURG Cons Multiple Knife Edge Trimmer Operator's Choice [facility] 03/21/2024 Procedure Order CP EKG STL CP EK G - STL Proc Multiple Knife Edge Trimmer Operator's Choice [facility]
--- OUTSIDE RECORDS SUMMARY | 2024-04-10 06:52 | XMS_ITS | Encounter Summary ---
Author Name [facility] [place] Address [address] [place] [address] Care Team Providers Care Turf Farmer Name Role Phone KODAK MORTON Primary Care [...] CHOIC E PREFE RR Apr 13, 2020 [id number] [phone] BOOGIE BAILEY ANDON PATIENT ANTHEM [employer] PREFERRED PROVIDER ORGANIZAT ION (PPO) BLUE CHOIC E PREFE RR Apr 13, 2020 [id number] [phone] BOOGIE BAILEY ANDON PATIENT ANTHEM [employer] PREFERRED PROVIDER ORGANIZAT ION (PPO) BLUE CHOIC E PREFE RR Apr 13, 2020 [id number] [phone] BOOGIE BAILEY ANDON PATIENT BC[place] PREFERRED PROVIDER ORGANIZAT ION (PPO) BLUE CHOIC E PREFE RR Apr 13, 2020 [id number] [phone] BOOGIE BAILEY PATIENT PRIME THERAPEUTI CS RX PRESCRIPT ION BCBSI L [place] Apr 13, 2020 BCBSIL [id number] [phone] BOOGIE BAILEY PATIENT [facility] 2018 [place] RE May 10, 2019 [facility] [id number] 22 BOOGIE BAILEY PATIENT Selected Encounter This section includes the information on record at [place] for the Encounter. Date/Time Encounter Type Encounter Description Reason Pro vider Source Jul 09, 2023 03:46 PM Outpatient Encounter SLEEP MEDICINE IHE Encounter Template Text not used by [place] Plan of Treatment: Future Appointments (+ 6 months) and Future Tests (+/- 45 days) The Plan of Treatment section includes future care activities for the patient from all [place] [facility]. This section includes future appointments and future [...] 14, 2023 10:30 AM AMBULATORY - MEDICINE [facility] August 17, 2023 09:15 AM AMBULATORY - MEDICINE [facility] Oct 14, 2023 09:15 AM AMBULATORY - MEDICINE [facility] Oct 14, 2023 10:00 AM AMBULATORY - MEDICINE [facility] Nov 18, 2023 10:00 AM AMBULATORY - MEDICINE [facility] Nov 25, 2023 10:00 AM AMBULATORY - MEDICINE [facility] Jan 09, 2024 11:29 AM AMBULATORY - MEDICINE [facility] Jan 09, 2024 03:00 PM AMBULATORY - NONE [facility] Social History: Smoking Status (Most current) [...] 2021 03:59 PM VA-TOBACCO NEVER USED [facility] Encounter Notes: All associated encounter notes This section contains the clinical notes associated to the Encounter. Date/Time Encounter Note(s) Provider Source Jul 09, 2023 03:46 PM RESPIRATORY THERAP Y NOTE: LOCAL TITLE: RESPIRATORY THERAPY ST STANDARD TITLE: RESPIRATORY THERAPY NOTE DATE OF NOTE: JUL 09, 2023@15:46 ENTRY DATE: JUL 09, 2023@15:46:08 AUTHOR: JACQUELINE MURRIETA EXP COSIGNER: URGENCY: STATUS: COMPLETED Outpatient PAP Initial Education Patient arrived at [facility] for device and accessories. Patient was given a machine. Date: Device code: Model Number: Serial Number: Settings: Comments: cpap supply order Patient was instructed on usage and cleaning of all equipment. Patient received numbers to call if additional help is needed, or for supplies to call [phone]. Patient given brochure, Your PAP Device and You . /nataliia/ JACQUELINE MURRIETA RESP Signed: 07/09/2023 15:46 JACQUELINE MURRIETA [facility]
--- OUTSIDE RECORDS SUMMARY | 2024-04-10 06:53 | XMS_ITS | Encounter Summary ---
Author Name [facility] [place] Organization [place] Address [address] [place] [address] Care Team Providers Care Design Eng Name Role Phone KODAK MORTON Primary Care [...] CHOIC E PREFE RR Apr 13, 2020 [id number] [phone] BOOGIE BAILEY ANDON PATIENT ANTHEM [place] PREFERRED PROVIDER ORGANIZAT ION (PPO) BLUE CHOIC E PREFE RR Apr 13, 2020 [id number] [phone] BOOGIE BAILEY ANDON PATIENT ANTHEM [place] PREFERRED PROVIDER ORGANIZAT ION (PPO) BLUE CHOIC E PREFE RR Apr 13, 2020 [id number] [phone] BOOGIE BAILEY ANDCARLA PATIENT [place] PREFERRED PROVIDER ORGANIZAT ION (PPO) BLUE CHOIC E PREFE RR Apr 13, 2020 [id number] [phone] BOOGIE BAILEY PATIENT PRIME THERAPEUTI CS RX PRESCRIPT ION BCBSI L [place] Apr 13, 2020 BCBSIL [id number] [phone] BOOGIE BAILEY PATIENT [facility] 2018 [place] RE May 10, 2019 [facility] [id number] 22 BOOGIE BAILEY PATIENT Selected Encounter This section includes the information on record at [place] for the Encounter. Date/Time Encounter Type Encounter Description Reason Provider Source Jan 09, 2024 02:09 PM Outpatient Encounter EVENT (HISTORICAL) GRACE GARCÍA Valentin Encounter Template Text not used by [place] Plan of Treatment: Future Appointments (+ 6 [...] 09:00 AM [facility] Jan 14, 2024 10:00 AM AMBULATORY - MEDICINE [facility] Jan 26, 2024 01:00 PM AMBULATORY - MEDICINE [facility] Jan 28, 2024 01:45 PM AMBULATORY - REHAB [facility]ICIN [facility] Feb 02, 2024 02:00 PM AMBULATORY - PSYCHIATRY [facility] Feb 08, 2024 09:00 AM AMBULATORY - NEUROLOGY [facility] Feb 12, 2024 02:30 PM [facility]ORY [facility] NONE [facility] Feb 17, 2024 01:00 PM AMBULATORY - MEDICINE [facility] Feb 25, 2024 09:30 AM AMBULATORY - MEDICINE [facility] Mar 05, 2024 08:43 AM [facility] Mar 16, 2024 10:15 AM AMBULATORY - SURGERY [facility] Mar 21, 2024 12:14 PM AMBULATORY - MEDICINE [facility] Apr 01, 2024 10:00 AM AMBULATORY - PSYCHIATRY [facility] Apr 18, 2024 11:00 AM [facility] Apr 28, 2024 03:00 PM [facility] May 05, 2024 11:30 AM AMBULATORY - MEDICINE [facility] May 27, 2024 11:00 AM AMBULATORY - MEDICINE [facility] Active, Pending, and Scheduled Orders This section [...] Consult Order RHEUMATOLO GY OUTPATIENT STL Cons Daycare Provider's Choice [facility] Lab Results: +/- 30 days of the encounter This section includes the Chemistry and Hematology Lab Results on record with ID for the patient. Radiology Reports and Pathology Reports are provided separately, in subsequent sections. Lab Results This section contains the Chemistry/Hematology Results that were resulted 30 days before or 30 daysafter the date of the Encounter. Date/Time Source Result Type Result - Unit Interpretation Reference Range Comment Jan 26, 2024 02:47 PM [facility] CRP Specimen Type: PLASMA No comment entered. Ordering Provider: FRANSISCO MORTON Report Released Date/Time: Jan 26, 2024 02:11 PM Reporting Lab: [facility] [address] [facility] [address] Performing Lab: [facility] [address] [facility] [address] CRP 0.6 mg/dL H 0-0.5 Jan 26, 2024 02:47 PM [facility] ESR ISED(STL) Specimen Type: BLOOD No comment entered. Ordering Provider: FRANSISCO MORTON Report Released Date/Time: Jan 26, 2024 02:11 PM Reporting Lab: [facility] [address] [facility] [address] Performing Lab: [facility] [address] [facility] [address] ESR ISED(STL) 35 mm/h H 0-14 Jan 26, 2024 02:47 PM [facility] RHEUMATOID FACTOR (STL) Specimen Type: SERUM No comment entered. Ordering Provider: FRANSISCO MORTON Report Released Date/Time: Jan 26, 2024 02:19 PM Reporting Lab: [facility] [address] [facility] [address] Performing Lab: [facility] [address] [facility] [address] RHEUMATOID FACTOR (STL) <15.0 0-29 Vital Signs: All taken on the encounter date This section contains inpatient and outpatient Vital Signs collected on the date of the Encounter. Date/Time Temperature Pulse Blood Pressure Respiratory Rate SP02 Pain Height Weight Body Mass Index Source Jan 09, 2024 11:41 AM 97.6 106 127/88 18 98 7 [facility] Social History: Smoking Status [...] 26, 2021 03:59 PM [place]-TOBACCO NEVER USED [facility] Radiology Reports: +/- 30 days [...] HAND,RIGHT,3 OR MO RE VIEWS: JORDYN BAILEY [id number] -1985 M Exm Date: JAN 28, 2024@14:20 Req Phys: KODAK MORTON Pat Loc: [facility] PACT B5 NEW PATIENT (Re Img Loc: [facility] SUITE Service: Unknown [facility] [address] [place] [address] (Case [id number] COMPLETE) HAND,RIGHT,3 OR MORE VIEWS (RAD Detailed) CPT:01872 Proc Modifiers : RIGHT Reason for Study: right hand feell stiff and pain specialy in morning Clinical History: right hand feell stiff and pain specialy in morning Report Status: Verified Date Reported: JAN 29, 2024 Date Verified: JAN 29, 2024 Clinical Neuropsychologist E-Sig:/FRANCY/ART ENCARNACION MD Report: Case #[id number]. Right hand examination. Finding: Three views of the right hand examination shows no fracture dislocation. No evidence of lytic or blastic bony lesion. No joint space narrowing or marginal erosion. No soft tissue swelling, radiopaque foreign body or abnormal calcification. Impression: No fracture dislocation or arthritic change. Primary Interpreting Staff: ART ENCARNACION MD, Staff Physician - Radiologist (Clinical Neuropsychologist) /ART ANDRADE [facility] Jan 28, 2024 02:20 PM WRIST,RIGHT,3 OR M ORE VIEWS: LYNNJORDYN ANTHONY [id number] -1985 M Exm Date: JAN 28, 2024@14:20 Req Phys: KODAK MORTON Pat Loc: [facility] PACT B5 NEW PATIENT (Re Img Loc: [facility] SUITE Service: Unknown [facility] [address] [place] [address] (Case [id number] COMPLETE) WRIST,RIGHT,3 OR MORE VIEWS (RAD Detailed) CPT:18596 Proc Modifiers : RIGHT Reason for Study: right writs pain Clinical History: c/o right wroist pain Report Status: Verified Date Reported: JAN 29, 2024 Date Verified: JAN 29, 2024 Clinical Neuropsychologist E-Sig:/FRANCY/ART ENCARNACION MD Report: Case #[id number]. Right [...] ART ENCARNACION MD, Staff Physician - Radiologist (Clinical Neuropsychologist) /ART ANDRADE [facility] Jan 28, 2024 02:20 PM WRIST,LEFT, 3 OR M ORE VIEWS: JORDYN BAILEY ANTHONY [id number] -1985 M Exm Date: JAN 28, 2024@14:20 Req Phys: SELENEKODAK PALACIO T Pat Loc: [facility] PACT B5 NEW PATIENT (Re Img Loc: [facility] SUITE Service: Unknown [address] [address] (Case [id number] COMPLETE) WRIST,LEFT, 3 OR MORE VIEWS (RAD Detailed) CPT:63196 Proc Modifiers : LEFT Reason for Study: c/o left wrist pain Clinical History: c/o left wrist pain Report Status: Verified Date Reported: JAN 29, 2024 Date Verified: JAN 29, 2024 Clinical Neuropsychologist E-Sig:/ES/ART ENCARNACION MD Report: Case #[id number]. Left [...] ART ENCARNACION MD, Staff Physician - Radiologist (Clinical Neuropsychologist) /ART ANDRADE [facility] Jan 28, 2024 02:20 PM HAND,LEFT,3 OR MOR E VIEWS: LYNNJORDYNCARLA CRUZ [id number] -1985 M Exm Date: JAN 28, 2024@14:20 Req Phys: KODAK MORTON T Pat Loc: [facility] PACT B5 NEW PATIENT (Re Img Loc: [facility] SUITE Service: [place] [address] [address] (Case [id number] COMPLETE) HAND,LEFT,3 OR MORE VIEWS (RAD Detailed) CPT:96298 Proc Modifiers : LEFT Reason for Study: left hand feell stiff and pain specialy in morning Clinical History: eft hand feell stiff and pain specialy in morning Report Status: Verified Date Reported: JAN 29, 2024 Date Verified: JAN 29, 2024 Clinical Neuropsychologist E-Sig:/ES/ART ENCARNACION MD Report: Case #[id number]. Left hand examination. Finding: Three views of the left hand examination shows no fracture dislocation. No evidence of lytic or blastic bony lesion. No joint space narrowing or marginal erosion. No soft tissue swelling, radiopaque foreign body or abnormal calcification. Impression: No fracture dislocation or arthritic change. Primary Interpreting Staff: ART ENCARNACION MD, Staff Physician - Radiologist (Clinical Neuropsychologist) /ART ANDRADE [facility] Jan 09, 2024 12:[address] CERVICAL SPINE W/O CONT: LYNNJORDYN ANTHONY [id number] -1985 M Exm Date: JAN 09, 2024@12:18 Req Phys: BING ORTIZ Loc: [facility] 2ND SHIFT (R Img Loc: [facility] Service: Unknown [address] [address] (Case [id number] COMPLETE) CT CERVICAL SPINE W/O CONT (CT Detailed) CPT:14686 Reason for Study: Neck pain, bilateral arm pain/weakness Clinical History: Responsible Attending: Yovany Attending Contact Number: [id number] Resident Contact Number: Neck pain, bilateral arm pain/weakness Allergies listed in CPRS chart: SHELLFISH Creatinine/eGFR: STL EGFR (within one year). CREATININE 0.95 mg/dL (11/25/23 11:00) Wt: 220.4 lb [99.97 kg] (11/25/2023 10:03) History of: Renal failure, chronic or acute renal disease: NO Report Status: Verified Date Reported: JAN 09, 2024 Date Verified: JAN 09, 2024 Clinical Neuropsychologist E-Sig: Report: CT CERVICAL SPINE W/O CONT Clinical History: Neck pain, bilateral arm pain/weakness Comparison: No priors available Technique: Noncontrast CT of the cervical spine was performed. The study was protocoled and supervised at the local [place] facility. 1116 images were subsequently received by the ID National Teleradiology Program (NTP) for interpretation. Total [...] dedicated MRI. READING PHYSICIAN: Ifrah Guzmán M.D. -[id number] 01/09/2024 11:23 [facility] National Teleradiology Program [phone] (For Medical Practitioner Use Only) Attention Patients / Veterans: If you have questions or concerns about these test results, please contact your ordering provider or primary care team. Primary Interpreting Staff: RADIOLOGY,OUTSIDE SERVICE, Staff Physician / RADIOLOGY,OUTSIDE SERVICE [facility]
--- OUTSIDE RECORDS SUMMARY | 2024-04-10 06:53 | XMS_ITS | Encounter Summary ---
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 Name Role Phone KODAK MORTON [...] CHOIC E PREFE RR Apr 13, 2020 [id number] [phone] BOOGIE BAILEY ANDON PATIENT ANTHEM [place] PREFERRED PROVIDER ORGANIZAT ION (PPO) BLUE CHOIC E PREFE RR Apr 13, 2020 [id number] BOOGIE BAILEY ANDON PATIENT ANTHEM [place] PREFERRED PROVIDER ORGANIZAT ION (PPO) BLUE CHOIC E PREFE RR Apr 13, 2020 [id number] BOOGIE BAILEY ANDON PATIENT [place] PREFERRED PROVIDER ORGANIZAT ION (PPO) BLUE CHOIC E PREFE RR Apr 13, 2020 [id number] [phone] BOOGIE BAILEY PATIENT PRIME THERAPEUTI CS RX PRESCRIPT ION BCBSI L [place] Apr 13, 2020 BCBSIL [id number] [phone] BOOGIE BAILEY PATIENT [facility] 2018 [place] May 10, 2019 [facility] [id number] 22 BOOGIE BAILEY PATIENT Selected Encounter This section includes the information on record at CT for the Encounter. Date/Time Encounter Type Encounter Description Reason Provider Source August 14, 2023 10:30 AM PSYTX W PT 30 MINUTES TELEPHONE MH ICD-10-CM Z63.0 Problems in relationship with spouse or partner JONATAN ROBERTSON [facility] Encounter Template Text not used by CT Assessments - Encounter Diagnoses This section includes the primary and secondary diagnoses documented for the Encounter. Date/Time Primary/Secondary Diagnosis Diagnosis Name Provider Source August 14, 2023 10:30 AM PRIMARY Problems in relationship with spouse or partner JONATAN ROBERTSON [facility] Plan of Treatment: Future Appointments (+ [...] Appointment Type Appointme nt Facility Name August 17, 2023 09:15 AM AMBULATORY - MEDICINE [facility] Oct 14, 2023 09:15 AM AMBULATORY - MEDICINE [facility] Oct 14, 2023 10:00 AM AMBULATORY - MEDICINE [facility] Nov 18, 2023 10:00 AM AMBULATORY - MEDICINE [facility] Nov 25, 2023 10:00 AM AMBULATORY - MEDICINE [facility] Jan 09, 2024 11:29 AM AMBULATORY - MEDICINE [facility] Jan 09, 2024 03:00 PM AMBULATORY - NONE [facility] Jan 14, 2024 09:00 AM AMBULATORY - MEDICINE [facility] Jan 14, 2024 10:00 AM AMBULATORY - MEDICINE [facility] Jan 26, 2024 01:00 PM AMBULATORY - MEDICINE [facility] Jan 28, 2024 01:45 PM AMBULATORY - REHAB [facility]IN [facility] Feb 02, 2024 02:00 PM AMBULATORY - PS[facility]CHIATRY [facility] Feb 08, 2024 09:00 AM AMBULATORY - NEUROLOGY [facility] Feb 12, 2024 02:30 PM AMBULATORY - NONE [facility] Social History: Smoking Status (Most current) [...] 20, 2023 09:00 AM VA-TOBACCO FORMER USER [facility] Tobacco Use History This section includes a history of the smoking, or tobacco-related health factors, that were collected on or before the date of the Encounter. The data comes from the CT facility where the Encounter took place. Date/Time Smoking Status/Tobacco Use Comment F acility May 20, 2023 09:[address]-TOBACCO QUIT 15 YRS OR MORE [facility] May 28, 2022 10:30 AM [place]-TOBACCO NEVER USED [facility] Encounter Notes: All associated encounter notes This section contains the clinical notes associated to the Encounter. Date/Time Encounter Note(s) Provider Source August 14, 2023 02:19 PM MENTAL HEALTH NOTE : LOCAL TITLE: MH [facility] STANDARD TITLE: MENTAL HEALTH NOTE DATE OF NOTE: AUGUST 14, 2023@14:19 ENTRY DATE: AUGUST 14, 2023@14:19:45 AUTHOR: JONATAN ROBERTSON EXP COSIGNER: URGENCY: STATUS: COMPLETED NAME: JORDYN BAILEY DATE OF : Jan TIME SPENT WITH PATIENT: 16 minutes DIAGNOSTIC IMPRESSION (THIS VISIT): CPT Code: [address] VIA: Telephone Telephone appointment information: The following items were reviewed: - The nature of telehealth, its benefits, and risks. - Confidentiality and its limits. - The importance of having a confidential location for the service. - The emergency plan. Confirmed that is in a secure location and it is appropriate to conduct a telephone appointment. Confirmed [place]'s Non-VA location for this appointment: Home Address:[address] [place], [place] [address] Emergency Contact: Primary NOK: JOSÉ MENSAH Relation: EXTENDED FAMILY Nacho [address] [place], [place] [address] If Others were present for this telephone appointment, it is listed here: EMERGENCY PLAN In the event of an emergency, the or family will call emergency services, if capable. Teleprovider will remain on the phone until emergency response arrives and handoff to emergency services is complete. If [place] is unable to make emergency call, Teleprovider is to call the national [employer] service at and ask to be connected to emergency services for the [place]'s location. Crisis Hotline: [phone] and push 1 REASON FOR VISIT: Brief behavioral health screening to determine urgency of mental health care needs, address urgent/emergent issues, and identify a follow up care plan. PRESENTING PROBLEM: KODAK MORTON referred this to [facility] re: request for marriage counseling [place] reported, he and his wish to engage in marriage counseling. They have communication difficulties and irritability with each other which has been ongoing for a couple of years. Alma Delia's has medical issues which places more burden on him; he is burnt out. Alma Delia sought therapy in the past for depression/ anxiety; he does not currently have symptoms of such. No BRADLEY concerns. No domestic violence. INTERVENTIONS: Rapport building Goal setting Provision of psychoeducational resources and contacts [place] was provided with empathetic listening and given the opportunity to express thoughts and feelings regarding current concerns Other: TREATMENT GOALS FOR THIS SESSION: a. To identify the appropriate setting for subsequent evaluation and treatment, and to initiate a plan of care. b. To provide emergency contact information for mental health services. c. To instill hope in the recovery process. d. Other: RISK MANAGEMENT: Assessment for SI/HI: The denies SI/HI, intent or plan at this time. The is not judged to be at imminent risk for self/other harm at this time. The remains suitable for the current level of care. 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 PLAN FOR CARE, INCLUDING FOLLOW-UP RECOMMENDATIONS: Consult placed for community care marital counseling PROGRESS TOWARDS GOAL: agrees with initial plan for care FOLLOW-UP CONTACT INFORMATION WAS PROVIDED FOR: Veterans Crisis Line Number for 03/11 assistance: , press 1 for Veterans Mental Health Point of Contact ([facility]) Suicide Screen: C-SSRS Screening [place]-Suicide Severity Rating Scale (C-SSRS Screener) 1. Over the past month, have you [...] due to responses to other questions. /nataliia/ Jonatan Robertson PsyD Clinical Psychologist Signed: 08/17/2023 08:53 JONATAN ROBERTSON [facility]
--- OUTSIDE RECORDS SUMMARY | 2024-04-10 06:54 | XMS_ITS | Encounter Summary ---
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 Role Phone KODAK MORTON Primary [...] CHOIC E PREFE RR Apr 13, 2020 [id number] [phone] STEPHANIE BAILEYON PATIENT ANTHEM [employer] [place] PREFERRED PROVIDER ORGANIZAT ION (PPO) BLUE CHOIC E PREFE RR Apr 13, 2020 [id number] [phone] BOOGIE BAILEY ANDON PATIENT ANTHEM [employer] [place] PREFERRED PROVIDER ORGANIZAT ION (PPO) BLUE CHOIC E PREFE RR Apr 13, 2020 [id number] [phone] STEPHANIE BAILEYON PATIENT [employer] [place] PREFERRED PROVIDER ORGANIZAT ION (PPO) BLUE CHOIC E PREFE RR Apr 13, 2020 [id number] [phone] BOOGIE BAILEY PATIENT PRIME THERAPEUTI CS RX PRESCRIPT ION [employer] L [place] Apr 13, 2020 [id number] [phone] BOOGIE BAILEY PATIENT [facility] [address] [place] May 10, 2019 SELECT [id number] BOOGIE BAILEY PATIENT Selected Encounter This section includes the information on record at [place] for the Encounter. Date/Time Encounter Type Encounter Description Reason Provider Source Jan 14, 2024 09:00 AM PROGRAM INTAKE ASSESSMENT PULMONARY FUNCTION ICD-10-CM R05.9 Cough, unspecified ANIL LAKHANI [place] Encounter Template Text not used by [place] Assessments - Encounter Diagnoses This section includes the primary and secondary diagnoses documented for the Encounter. Date/Time Primary/Secondary Diagnosis Diagnosis Name Provider Source Jan 14, 2024 09:43 AM PRIMARY Cough, unspecified ANIL LAKHANI [facility] Plan of Treatment: Future Appointments (+ 6 months) and Future Tests (+/- 45 days) The Plan of Treatment section includes future care activities for the patient from all [place] treatmentfacilities. This section includes future appointments and [...] 26, 2024 01:00 PM AMBULATORY [facility] Jan 28, 2024 01:45 PM AMBULATORY - REHAB MEDICIN E [facility] Feb 02, 2024 02:00 PM AMBULATORY - PSYCHIATRY [facility] Feb 08, 2024 09:00 AM AMBULATORY - NEUROLOGY [facility] Feb 12, 2024 02:30 PM AMBULATORY - NONE . [facility] Feb 17, 2024 01:00 PM AMBULATORY - MEDICINE [facility] Feb 25, 2024 09:30 AM AMBULATORY - MEDICINE [facility] Mar 05, 2024 08:43 AM [facility] Mar 16, 2024 10:15 AM AMBULATORY - SURGERY [facility] Mar 21, 2024 12:14 PM AMBULATORY - MEDICINE [facility] Apr 01, 2024 10:00 AM AMBULATORY - PSYCHIATRY [facility] Apr 18, 2024 11:00 AM [facility] Apr 28, 2024 03:00 PM [facility] May 05, 2024 11:30 AM AMBULATORY - MEDICINE [facility] May 27, 2024 11:00 AM AMBULATORY - MEDICINE [facility] Active, Pending, and Scheduled Orders This section includes a listing of several types of active, pending, and scheduled orders, including clinic medications orders, diagnostic test orders, procedure orders and consult orders; where the start date of the order is 45 days before the date of the Encounter or 45 days after the date of theEncounter. The data comes from all [place] treatment facilities. Test Date/Time Test Type Test Details Facility Name Jan 26, 2024 02:11 PM Consult Order RHEUMATOLO GY OUTPATIENT STL Cons [place] [facility] [facility] Lab Results: +/- 30 days of [...] Range Comment Jan 26, 2024 02:47 PM [facility] CRP Specimen Type: PLASMA No comment entered. Ordering Provider: FRANSISCO MORTON Report Released Date/Time: Jan 26, 2024 02:11 PM Reporting Lab: [facility] [address] [place] [address] Performing Lab: [facility] [address] [place] [address] CRP 0.6 mg/dL H 0-0.5 Jan 26, 2024 02:47 PM [facility] ESR ISED(STL) Specimen Type: BLOOD No comment entered. Ordering Provider: FRANSISCO MORTON Report Released Date/Time: Jan 26, 2024 02:11 PM Reporting Lab: [facility] [address] [place] [address] Performing Lab: [facility] [address] [facility] [address] ESR ISED(STL) 35 mm/h H 0-14 Jan 26, 2024 02:47 PM [facility] RHEUMATOID FACTOR (STL) Specimen Type: SERUM No comment entered. Ordering Provider: FRANSISCO MORTON Report Released Date/Time: Jan 26, 2024 02:19 PM Reporting Lab: [facility] [address] [facility] [address] Performing Lab: [facility] [address] [facility] [address] RHEUMATOID FACTOR (STL) <15.0 0-29 Vital Signs: All taken on the encounter date This section contains inpatient and outpatient Vital Signs collected on the date of the Encounter. Date/Time Temperature Pulse Blood Pressure Respiratory Rate SP02 Pain Height Weight Body Mass Index Source Jan 14, 2024 08:55 AM 97.2 95 115/76 16 97 3 218.3 31 [facility] Social History: Smoking Status (Most [...] USED [facility] Radiology Reports: +/- 30 days [...] the Encounter. The data comes from all [place] treatment facilities. Date/Time Radiology Report Provider Source Feb 12, 2024 02:[address] THORAX W/O CONT HIGH RES: JORDYN BAILEY [id number] -1985 M Exm Date: FEB 12, 2024@14:18 Req Phys: FLOYD WOO Loc: [facility] (Req'g Loc) Im Loc: [facility] Service: Unknown [facility], [address] [place] [address] (Case [id number] COMPLETE) CT THORAX W/O CONT HIGH RES (CT Detailed) CPT:82885 Reason for Study: chronic cough, exertional dyspnea, + hazardous exposure hx Clinical History: Responsible Attending: floyd woo PA-C Attending Contact Number: [phone] Resident Contact Number: Allergies listed in CPRS chart: SHELLFISH Creatinine: CREATININE 0.95 mg/dL 11/25/2023 11:00 /eGFR: STL EGFR (within one year). CREATININE 0.95 mg/dL (11/25/23 11:00) Wt: 218.3 lb [99.02 kg] (01/14/2024 08:55) History of: Renal failure, chronic or acute renal disease: NO Report Status: Verified Date Reported: FEB 15, 2024 Date Verified: FEB 15, 2024 Rn Child E-Sig:/ES/Lynn Castro MD Report: CASE #: [id number] DATE:02/12/2024 4:23 PM CLINICAL HISTORY:chronic cough, exertional [...] Primary Interpreting Staff: Lynn Castro MD, Radiologist (Rn Child) /LYNN ONEILL [facility] Jan 28, 2024 02:20 PM HAND,RIGHT,3 OR [place] RE VIEWS: JORDYN BAILEY [id number] -1985 M Exm Date: JAN 28, 2024@14:20 Req Phys: KODAK MORTON Loc: [facility] NEW PATIENT (Re Img Loc: [facility] RADIOLOG[facility] SUITE Service: Unknown [facility] [address] [place] [address] (Case [id number] COMPLETE) HAND,RIGHT,3 OR MORE VIEWS (RAD Detailed) CPT:42263 Proc Modifiers : RIGHT Reason for Study: right hand feell stiff and pain specialy in morning Clinical History: right hand feell stiff and pain specialy in morning Report Status: Verified Date Reported: JAN 29, 2024 Date Verified: JAN 29, 2024 Rn Child E-Sig:/NATALIIA/ART ENCARNACION MD Report: Case #[id number]. Right hand examination. Finding: Three views of the right hand examination shows no fracture dislocation. No evidence of lytic or blastic bony lesion. No joint space narrowing or marginal erosion. No soft tissue swelling, radiopaque foreign body or abnormal calcification. Impression: No fracture dislocation or arthritic change. Primary Interpreting Staff: ART ENCARNACION MD, Staff Physician - Radiologist (Rn Child) /ART ANDRADE [facility] Jan 28, 2024 02:20 PM WRIST,RIGHT,3 OR M ORE VIEWS: LYNNLISAJORDYN ANTHONY [id number] -1985 M Exm Date: JAN 28, 2024@14:20 Req Phys: KODAK MORTON Loc: [facility] PA[facility] B5 NEW PATIENT (Re Img Loc: [facility] RAD[facility] SUITE Service: Unknown [facility] [address] [place] [address] (Case [id number] COMPLETE) WRIST,RIGHT,3 OR MORE VIEWS (RAD Detailed) CPT:20925 Proc Modifiers : RIGHT Reason for Study: right writs pain Clinical History: c/o right wroist pain Report Status: Verified Date Reported: JAN 29, 2024 Date Verified: JAN 29, 2024 Rn Child E-Sig:/NATALIIA/ART ENCARNACION MD Report: Case #[id number]. Right [...] ART ENCARNACION MD, Staff Physician - Radiologist (Rn Child) /ART ANDRADE [facility] Jan 28, 2024 02:20 PM HAND,LEFT,3 OR MOR E VIEWS: JORDYN BAILEY ANTHONY [id number] -1985 M Exm Date: JAN 28, 2024@14:20 Req Phys: KODAK MORTON Pat Loc: [facility] PA[facility] B5 NEW PATIENT (Re Img Loc: [facility] RAD[facility] SUITE Service: Unknown [address] [address] (Case [id number] COMPLETE) HAND,LEFT,3 OR MORE VIEWS (RAD Detailed) CPT:64543 Proc Modifiers : LEFT Reason for Study: left hand feell stiff and pain specialy in morning Clinical History: eft hand feell stiff and pain specialy in morning Report Status: Verified Date Reported: JAN 29, 2024 Date Verified: JAN 29, 2024 Rn Child E-Sig:/ES/ART ENCARNACION MD Report: Case #[id number]. Left hand examination. Finding: Three views of the left hand examination shows no fracture dislocation. No evidence of lytic or blastic bony lesion. No joint space narrowing or marginal erosion. No soft tissue swelling, radiopaque foreign body or abnormal calcification. Impression: No fracture dislocation or arthritic change. Primary Interpreting Staff: ART ENCARNACION MD, Staff Physician - Radiologist (Rn Child) /ART ANDRADE [facility] Jan 28, 2024 02:20 PM WRIST,LEFT, 3 OR M ORE VIEWS: LYNNJORDYN ANTHONY [id number] -1985 M Exm Date: JAN 28, 2024@14:20 Req Phys: KODAK MORTON Pat Loc: [facility]5 NEW PATIENT (Re Img Loc: [facility] RAD[facility] SUITE Service: Unknown [facility] [address] [place] [address] (Case [id number] COMPLETE) WRIST,LEFT, 3 OR MORE VIEWS (RAD Detailed) CPT:26319 Proc Modifiers : LEFT Reason for Study: c/o left wrist pain Clinical History: c/o left wrist pain Report Status: Verified Date Reported: JAN 29, 2024 Date Verified: JAN 29, 2024 Rn Child E-Sig:/ES/ART ENCARNACION MD Report: Case #[id number]. Left [...] ART ENCARNACION MD, Staff Physician - Radiologist (Rn Child) /ART AND[facility]ADE [facility] Jan 09, 2024 12:[address] CERVICAL SPINE W/O CONT: LYNNJORDYN ANTHONY [id number] -1985 M Exm Date: JAN 09, 2024@12:18 Req Phys: BING ORTIZ Loc: [facility] 2ND SHIFT (R Img Loc: [facility] Service: Unknown [address] [address] (Case [id number] COMPLETE) CT CERVICAL SPINE W/O CONT (CT Detailed) CPT:14315 Reason for Study: Neck pain, bilateral arm pain/weakness Clinical History: Responsible Attending: Yovany Attending Contact Number: [id number] Resident Contact Number: Neck pain, bilateral arm pain/weakness Allergies listed in CPRS chart: SHELLFISH Creatinine/eGFR: STL EGFR (within one year). CREATININE 0.95 mg/dL (11/25/23 11:00) Wt: 220.4 lb [99.97 kg] (11/25/2023 10:03) History of: Renal failure, chronic or acute renal disease: NO Report Status: Verified Date Reported: JAN 09, 2024 Date Verified: JAN 09, 2024 Rn Child E-Sig: Report: CT CERVICAL SPINE W/O CONT Clinical History: Neck pain, bilateral arm pain/weakness Comparison: No priors available Technique: Noncontrast CT of the cervical spine was performed. The study was protocoled and supervised at the local [place] facility. 1116 images were subsequently received by the [place] National Teleradiology Program (NTP) for interpretation. Total [...] dedicated MRI. READING PHYSICIAN: Ifrah Guzmán M.D. -[phone] 01/09/2024 11:23 [facility] National Teleradiology Program [phone] (For Medical Practitioner Use Only) Attention Patients / Veterans: If you have questions or concerns about these test results, please contact your ordering provider or primary care team. Primary Interpreting Staff: RADIOLOGY,OUTSIDE SERVICE, Staff Physician / RADIOLOGY,OUTSIDE SERVICE [facility] Encounter Notes: All associated encounter notes This section contains the clinical notes associated to the Encounter. Date/Time Encounter Note(s) Provider Source Jan 14, 2024 02:07 PM PULMONARY PROCEDUR E NOTE: LOCAL TITLE: PFT PROCEDURE REPORT STL STANDARD TITLE: PULMONARY PROCEDURE NOTE DATE OF NOTE: JAN 14, 2024@14:07:21 ENTRY DATE: JAN 14, 2024@14:07:21 AUTHOR: CLINICAL,DEVICE PRO EXP COSIGNER: URGENCY: STATUS: COMPLETED PROCEDURE SUMMARY CODE: Machine Resulted DATE/TIME PERFORMED: JAN 14, 2024@14:06:5 DOCUMENT IN VISTA IMAGING SEE FULL REPORT IN VISTA IMAGING SIGNATURE NOT REQUIRED SEE SIGNATURE IN VISTA IMAGING ([employer]) AUTO-INSTRUMENT DIAGNOSIS Procedure: PFT Administrative Closure: 01/14/2024 by: CLINICAL,DEVICE PROXY SERVICE CLINICAL,DEVICE PROXY SERVICE [facility] Jan 14, 2024 09:42 AM PULMONARY NOTE: LOCAL TITLE: PFT LAB COVID-19 SCREENING STL STANDARD TITLE: PULMONARY NOTE DATE OF NOTE: JAN 14, 2024@09:42 ENTRY DATE: JAN 14, 2024@09:42:36 AUTHOR: ANIL LAKHANI EXP COSIGNER: URGENCY: STATUS: COMPLETED 1) Have [...] may be sick with COVID-19? No Comments: /nataliia/ ANIL LAKHANI REGISTERED RESPIRATORY THERAPIST Signed: 01/14/2024 09:44 ANIL LAKHANI [facility]
--- OUTSIDE RECORDS SUMMARY | 2024-04-10 06:55 | XMS_ITS ---
Author Name [facility] Organization [facility] Address [address] [place] [address] Care Team Providers Care Analysis Evaluator Name Role Phone KODAK MORTON Primary Care [...] CHOIC E PREFE RR Apr 13, 2020 [id number] [phone] BOOGIE BAILEY ANDON PATIENT ANTHEM [employer] [place] PREFERRED PROVIDER ORGANIZAT ION (PPO) BLUE CHOIC E PREFE RR Apr 13, 2020 [id number] [phone] BOOGIE BAILEY ANDON PATIENT AN[place] [employer] [place] PREFERRED PROVIDER ORGANIZAT ION (PPO) BLUE CHOIC E PREFE RR Apr 13, 2020 [id number] [phone] BOOGIE BAILEY ANDCARLA PATIENT [employer] [place] PREFERRED PROVIDER ORGANIZAT ION (PPO) BLUE CHOIC E PREFE RR Apr 13, 2020 [id number] [phone] BOOGIE BAILEY PATIENT PRIME THERAPEUTI CS RX PRESCRIPT ION [employer] L [place] Apr 13, 2020 BCBSIL [id number] [phone] BOOGIE BAILEY PATIENT [facility] [address] [place] May 10, 2019 SELECT [id number] BOOGIE BAILEY PATIENT Selected Encounter This section includes the information on record at OR for the Encounter. Date/Time Encounter Type Encounter Description Reason Provider Source Feb 03, 2024 09:22 AM Outpatient Encounter PRIMARY CARE/MEDICINE NOELLE OWENS Valentin Encounter Template Text not used by OR [...] 08, 2024 09:00 AM AMBULATORY - NEUROLOGY [facility] Feb 12, 2024 02:30 PM AMBULATORY - NONE [facility] Feb 17, 2024 01:00 PM AMBULATORY - MEDICINE [facility] Feb 25, 2024 09:30 AM AMBULATORY - MEDICINE [facility] Mar 05, 2024 08:43 AM AMBULATORY - MEDICINE [facility] Mar 16, 2024 10:15 AM AMBULATORY - SURGERY [facility] Mar 21, 2024 12:14 PM [facility] Apr 01, 2024 10:00 AM AMBULATORY - PSYCHIATRY [facility] Apr 18, 2024 11:00 AM AMBULATORY [...] Consult Order RHEUMATOLO GY OUTPATIENT STL Cons [facility] Mar 16, 2024 10:22 AM Consult Order [facility] PLASTIC SURG Cons [facility] Lab Results: +/- 30 days of [...] Range Comment Jan 26, 2024 02:47 PM [facility] CRP Specimen Type: PLASMA No comment entered. Ordering Provider: FRANSISCO MORTON Report Released Date/Time: Jan 26, 2024 02:11 PM Reporting Lab: [facility] [address] [facility] [address] Performing Lab: [facility] [address] [facility] [address] CRP 0.6 mg/dL H 0-0.5 Jan 26, 2024 02:47 PM [facility] ESR ISED(STL) Specimen Type: BLOOD No comment entered. Ordering Provider: RFANSISCO MORTON Report Released Date/Time: Jan 26, 2024 02:11 PM Reporting Lab: [facility] [address] [address] Performing Lab: [facility] [address] [facility] [address] ESR ISED(STL) 35 mm/h H 0-14 Jan 26, 2024 02:47 PM [facility] RHEUMATOID FACTOR (STL) Specimen Type: SERUM No comment entered. Ordering Provider: FRANSISCO MORTON Report Released Date/Time: Jan 26, 2024 02:19 PM Reporting Lab: [facility] [address] [facility] [address] Performing Lab: [facility] [address] [address] RHEUMATOID FACTOR (STL) <15.0 0-29 Social History: [...] 26, 2021 03:59 PM VA-TOBACCO NEVER USED [facility] Radiology Reports: +/- 30 days [...] THORAX W/O CONT HIGH RES: JORDYN BAILEY [id number] -1985 M Exm Date: FEB 12, 2024@14:18 Req Phys: FLOYD WOO Loc: [facility]PULM [facility] 1 (Req'g Loc) Img Loc: [facility]-CT IMAGING [facility] Service: Unknown [facility] [address] [place] [address] (Case [id number] COMPLETE) CT THORAX W/O CONT HIGH RES (CT Detailed) CPT:92943 Reason for Study: chronic cough, exertional dyspnea, + hazardous exposure hx Clinical History: Responsible Attending: floyd woo PA-C Attending Contact Number: [phone] Resident Contact Number: Allergies listed in CPRS chart: SHELLFISH Creatinine: CREATININE 0.95 mg/dL 11/25/2023 11:00 /eGFR: STL EGFR (within one year). CREATININE 0.95 mg/dL (11/25/23 11:00) Wt: 218.3 lb [99.02 kg] (01/14/2024 08:55) History of: Renal failure, chronic or acute renal disease: NO Report Status: Verified Date Reported: FEB 15, 2024 Date Verified: FEB 15, 2024 Building Appraiser E-Sig:/ES/Lynn Castro MD Report: CASE #: [id number] DATE:02/12/2024 4:23 PM CLINICAL HISTORY:chronic cough, exertional [...] Primary Interpreting Staff: Lynn Castro MD, Radiologist (Building Appraiser) /LYNN ONEILL [facility] Jan 28, 2024 02:20 PM HAND,RIGHT,3 OR [place] RE VIEWS: JORDYN BAILEY [id number] -1985 M Exm Date: JAN 28, 2024@14:20 Req Phys: KODAK MORTON Loc: [facility] PACT B5 NEW PATIENT (Re Img Loc: -MAIN RADIOLOGY SUITE Service: [facility], [place], [facility] [address] [place] [address] (Case [id number] COMPLETE) HAND,RIGHT,3 OR MORE VIEWS (RAD Detailed) CPT:77128 Proc Modifiers : RIGHT Reason for Study: right hand feell stiff and pain specialy in morning Clinical History: right hand feell stiff and pain specialy in morning Report Status: Verified Date Reported: JAN 29, 2024 Date Verified: JAN 29, 2024 Building Appraiser E-Sig:/ES/ART ENCARNACION MD Report: Case #[id number]. Right hand examination. Finding: Three views of the right hand examination shows no fracture dislocation. No evidence of lytic or blastic bony lesion. No joint space narrowing or marginal erosion. No soft tissue swelling, radiopaque foreign body or abnormal calcification. Impression: No fracture dislocation or arthritic change. Primary Interpreting Staff: ART ENCARNACION MD, Staff Physician - Radiologist (Building Appraiser) /ART ANDRADE [facility] Jan 28, 2024 02:20 PM WRIST,RIGHT,3 OR M ORE VIEWS: JORDYN BAILEY [id number] -1985 M Exm Date: JAN 28, 2024@14:20 Req Phys: SELENEKODAK PALACIO Pat Loc: [facility] PACT B5 NEW PATIENT (Re Img Loc: [facility] RADIOLOGY SUITE Service: Unknown [address] [address] (Case [id number] COMPLETE) WRIST,RIGHT,3 OR MORE VIEWS (RAD Detailed) CPT:51148 Proc Modifiers : RIGHT Reason for Study: right writs pain Clinical History: c/o right wroist pain Report Status: Verified Date Reported: JAN 29, 2024 Date Verified: JAN 29, 2024 Building Appraiser E-Sig:/ES/ART ENCARNACION MD Report: Case #[id number]. Right [...] ART NECARNACION MD, Staff Physician - Radiologist (Building Appraiser) /ART ANDRADE [facility] Jan 28, 2024 02:20 PM HAND,LEFT,3 OR MOR E VIEWS: JORDYN BAILEY ANTHONY [id number] -1985 M Exm Date: JAN 28, 2024@14:20 Req Phys: KODAK MORTON T Pat Loc: [facility] PACT B5 NEW PATIENT (Re Img Loc: -[facility] RADIOLOGY SUITE Service: Unknown [address] [place] [address] (Case [id number] COMPLETE) HAND,LEFT,3 OR MORE VIEWS (RAD Detailed) CPT:84401 Proc Modifiers : LEFT Reason for Study: left hand feell stiff and pain specialy in morning Clinical History: eft hand feell stiff and pain specialy in morning Report Status: Verified Date Reported: JAN 29, 2024 Date Verified: JAN 29, 2024 Building Appraiser E-Sig:/NATALIIA/ART ENCARNACION MD Report: Case #[id number]. Left hand examination. Finding: Three views of the left hand examination shows no fracture dislocation. No evidence of lytic or blastic bony lesion. No joint space narrowing or marginal erosion. No soft tissue swelling, radiopaque foreign body or abnormal calcification. Impression: No fracture dislocation or arthritic change. Primary Interpreting Staff: ART ENCARNACION MD, Staff Physician - Radiologist (Building Appraiser) /ART ANDRADE [facility] Jan 28, 2024 02:20 PM WRIST,LEFT, 3 OR M ORE VIEWS: JORDYN BAILEY [id number] -1985 M Exm Date: JAN 28, 2024@14:20 Req Phys: KODAK MORTON Loc: [facility] PACT B5 NEW PATIENT (Re Img Loc: -[facility] RADIOLOGY SUITE Service: Unknown [facility] [address] [place] [address] (Case [id number] COMPLETE) WRIST,LEFT, 3 OR MORE VIEWS (RAD Detailed) CPT:40128 Proc Modifiers : LEFT Reason for Study: c/o left wrist pain Clinical History: c/o left wrist pain Report Status: Verified Date Reported: JAN 29, 2024 Date Verified: JAN 29, 2024 Building Appraiser E-Sig:/NATALIIA/ART ENCARNACION MD Report: Case #[id number]. Left [...] ART ENCARNACION MD, Staff Physician - Radiologist (Building Appraiser) /ART ANDRADE [facility] Jan 09, 2024 12:[address] CERVICAL SPINE W/O CONT: JORDYN BAILEY [id number] -1985 M Exm Date: JAN 09, 2024@12:18 Req Phys: BING ORTIZ Loc: [facility]-EMERGENCY DEPT 2ND SHIFT (R Img Loc: [facility] Service: Unknown [facility], [facility] [address] [place] [address] (Case [id number] COMPLETE) CT CERVICAL SPINE W/O CONT (CT Detailed) CPT:95408 Reason for Study: Neck pain, bilateral arm pain/weakness Clinical History: Responsible Attending: Yovany Attending Contact Number: [id number] Resident Contact Number: Neck pain, bilateral arm pain/weakness Allergies listed in CPRS chart: SHELLFISH Creatinine/eGFR: STL EGFR (within one year). CREATININE 0.95 mg/dL (11/25/23 11:00) Wt: 220.4 lb [99.97 kg] (11/25/2023 10:03) History of: Renal failure, chronic or acute renal disease: NO Report Status: Verified Date Reported: JAN 09, 2024 Date Verified: JAN 09, 2024 Building Appraiser E-Sig: Report: CT CERVICAL SPINE W/O CONT Clinical History: Neck pain, bilateral arm pain/weakness Comparison: No priors available Technique: Noncontrast CT of the cervical spine was performed. The study was protocoled and supervised at the local OR facility. 1116 images were subsequently received by the OR National Teleradiology Program (NTP) for interpretation. Total [...] dedicated MRI. READING PHYSICIAN: Ifrah Guzmán M.D. -[phone] 01/09/2024 11:23 PDT [facility] National Teleradiology Program [phone] (For Medical Practitioner Use Only) Attention Patients / Veterans: If you have questions or concerns about these test results, please contact your ordering provider or primary care team. Primary Interpreting Staff: RADIOLOGY,OUTSIDE SERVICE, Staff Physician / RADIOLOGY,OUTSIDE SERVICE [facility] Encounter Notes: All associated encounter notes This section contains the clinical notes associated to the Encounter. Date/Time Encounter Note(s) Provider Source Feb 03, 2024 09:22 AM PRIMARY CARE Stripe MESSAGING: LOCAL TITLE: PRIMARY CARE SECURE MESSAGING STANDARD TITLE: PRIMARY CARE SECURE MESSAGING DATE OF NOTE: FEB 03, 2024@09:22 ENTRY DATE: FEB 03, 2024@08:22:50 AUTHOR: NOELLE OWENS EXP COSIGNER: URGENCY: STATUS: COMPLETED PRIMARY CARE SECURE MESSAGING Has ADDENDA ------Original Message ------- Sent: 02/03/2024 04:19 AM ET From: JORDYN BAILEY To: [facility], Caron_Nacho MORTON_Primary Care, [place] Subject: Appointment:Medication tequest Wilder, I saw Dr Morton on the and he had put in a consult to Rheumatology for me for what we think is Carpal Tunnel. And I finally got an appointment but not until April and yesterday and last night I had bad pain and slept for maybe 2 hours because of it. I fear that if I have to live like this until I see Rheumatology then I can't go 3 months being in constant pain. Can I please have Dr Morton call me at his earliest convenience so I can speak with him about the medications I was on? Thank you! ------Original Message ------- Sent: 02/03/2024 09:22 AM ET From: NOELLE OWENS To: JORDYN BAILEY Subject: Appointment:Medication tequest Good Morning, I will pass your request to Dr. Morton. You can always call the clinic at [phone] option 4 and schedule a phone appointment with Dr. Morton. Noelle Owens BSN, lead project manager /nataliia/ NOELLE MAGALLANESN RN REGISTERED NURSE Signed: 02/03/2024 08:22 Receipt Acknowledged By: 02/03/2024 08:53 /nataliia/ Kodak Morton MD Staff Physician 02/03/2024 ADDENDUM STATUS: COMPLETED Please inform patient that his x-ray of hand and wrist were all negative Left hand x-ray report No fracture dislocation or arthritic change. Right hand x-ray report No fracture dislocation or arthritic change. Right wrist x-ray report No fracture dislocation or arthritic change. Wrist x-ray reportImpression: No fracture dislocation or arthritic change. I have sent him test results letter as well on that He can take Mobac diclofenac acid 50 mg twice a day we will order to mail to him He also scheduled for nerve conduction study on February 07 that we will give her some more idea about his complaint of pain in his hand and wrist /nataliia/ Kodak Morton MD Staff Physician Signed: 02/03/2024 08:58 Receipt Acknowledged By: * AWAITING SIGNATURE * NOELLE OWENS RICHELLE D [facility] Feb 03, 2024 08:54 AM ADDENDUM: LOCAL TITLE: Addendum STANDARD TITLE: ADDENDUM DATE OF NOTE: FEB 03, 2024@08:54:15 ENTRY DATE: FEB 03, 2024@08:54:16 AUTHOR: KODAK MORTON EXP COSIGNER: URGENCY: STATUS: COMPLETED Please inform patient that his x-ray of hand and wrist were all negative Left hand x-ray report No fracture dislocation or arthritic change. Right hand x-ray report No fracture dislocation or arthritic change. Right wrist x-ray report No fracture dislocation or arthritic change. Wrist x-ray reportImpression: No fracture dislocation or arthritic change. I have sent him test results letter as well on that He can take Mobac diclofenac acid 50 mg twice a day we will order to mail to him He also scheduled for nerve conduction study on February 07 that we will give her some more idea about his complaint of pain in his hand and wrist /nataliia/ Kodak Morton MD Staff Physician Signed: 02/03/2024 08:58 Receipt Acknowledged By: 02/03/2024 09:04 /nataliia/ NOELLE JIMENEZ RN REGISTERED NURSE ====== --- Original Document --- 02/03/24 PRIMARY CARE SECURE MESSAGING: ------Original Message ------- Sent: 02/03/2024 04:19 AM ET From: JORDYN BAILEY To: [facility] 8[facility] Subject: Appointment:Medication tequest Lyle, I saw Dr Morton on the and he had put in a consult to Rheumatology for me for what we think is Carpal Tunnel. And I finally got an appointment but not until April and yesterday and last night I had bad pain and slept for maybe 2 hours because of it. I fear that if I have to live like this until I see Rheumatology then I can't go 3 months being in constant pain. Can I please have Dr Morton call me at his earliest convenience so I can speak with him about the medications I was on? Thank you! ------Original Message ------- Sent: 02/03/2024 09:22 AM ET From: NOELLE OWENS To: JORDYN BAILEY Subject: Appointment:Medication tequest Good Morning, I will pass your request to Dr. Morton. You can always call the clinic at [phone] option 4 and schedule a phone appointment with Dr. Morton. Noelle JIMENEZ, lead project manager /nataliia/ NOELLE JIMENEZ RN REGISTERED NURSE Signed: 02/03/2024 08:22 Receipt Acknowledged By: 02/03/2024 08:53 /nataliia/ Kodak Morton MD Staff Physician KODAK MORTON [facility]
--- OUTSIDE RECORDS SUMMARY | 2024-04-10 06:56 | XMS_ITS ---
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 Name Role Phone KODAK MORTON Primary Care [...] CHOIC E PREFE RR Apr 13, 2020 [id number] [phone] BOOGIE BAILEY ANDON PATIENT ANTHEM [employer] [place] PREFERRED PROVIDER ORGANIZAT ION (PPO) BLUE CHOIC E PREFE RR Apr 13, 2020 [id number] [phone] BOOGIE BAILEY ANDON PATIENT AN[employer] [employer] [place] PREFERRED PROVIDER ORGANIZAT ION (PPO) BLUE CHOIC E PREFE RR Apr 13, 2020 [id number] [phone] BOOGIE BAILEY ANDCARLA PATIENT [employer] [place] PREFERRED PROVIDER ORGANIZAT ION (PPO) BLUE CHOIC E PREFE RR Apr 13, 2020 [id number] [phone] BOOGIE BAILEY PATIENT PRIME THERAPEUTI CS RX PRESCRIPT ION BCBSI L T[place]ER Apr 13, 2020 [id number] [phone] BOOGIE BAILEY PATIENT [facility] 2018 TRICA RE May 10, 2019 SELECT [id number] BOOGIE BAILEY PATIENT Selected Encounter This section includes the information on record at [place] for the Encounter. Date/Time Encounter Type Encounter Description Reason Provider Source Mar 05, 2024 08:43 AM Outpatient Encounter EVENT (HISTORICAL) SALVADOR NEWTON E Encounter Template Text not used by [place] Plan of Treatment: Future Appointments (+ 6 [...] - SURGERY [facility] Mar 21, 2024 12:14 PM AMBULATORY - MEDICINE [facility] Apr 01, 2024 10:00 AM AMBULATORY - PSYCHIATRY [facility] Apr 18, 2024 11:00 AM AMBULATORY - PSYCHIATRY [facility] Apr 28, 2024 03:00 PM AMBULATORY - MEDICINE [facility] May 05, 2024 11:30 AM AMBULATORY - MEDICINE [facility] May 27, 2024 11:00 AM AMBULATORY - MEDICINE [facility] Active, Pending, and Scheduled Orders This [...] Consult Order RHEUMATOLO GY OUTPATIENT STL Cons Risk Management Internship's Choice [facility] Mar 16, 2024 10:22 AM Consult Order [facility] PLASTIC SURG Cons Risk Management Internship's [facility] Mar 21, 2024 03:48 PM Procedure Order CP EKG STL CP EKG - STL Proc Risk Management [facility] Lab Results: +/- 30 days [...] Range Comment Mar 21, 2024 12:30 PM [facility] COMPREHENSIVE METABOLIC PANEL Specimen Type: PLASMA Comment: No hemolysis noted. Ordering Provider: SUSAN BROWN Report Released Date/Time: Mar 21, 2024 12:23 PM Reporting Lab: [address] [address] Performing Lab: [address] [address] CREATININE 1.00 mg/dL 0.7-1.3 UREA NITROGEN 18.1 [...] 98.2 >60 Mar 21, 2024 12:30 PM [facility] CBC Specimen Type: BLOOD No comment entered. Ordering Provider: SUSAN BROWN Report Released Date/Time: Mar 21, 2024 12:23 PM Reporting Lab: [address] [address] Performing Lab: [facility] [address] [facility] [address] WBC 7.2 10*3/uL 3.6-11.2 RBC 4.24 10*6/uL [...] 10*3/uL 0.00-0.20 Mar 05, 2024 11:10 AM [facility] TROPONIN I Specimen Type: PLASMA No comment entered. Ordering Provider: SALVADOR NEWTON Report Released Date/Time: Mar 05, 2024 11:04 AM Reporting Lab: [place] [address] [address] [facility] [address] Performing Lab: [address] [address] TROPONIN I <0.010 ng/mL 0-0.033 Mar 05, 2024 09:50 AM [facility] RESPIRATORY PCR PANEL Specimen Type: [...] the clinician evaluating the patient. Claudio GREEN, (737) Ordering Provider: SALVADOR NEWTON Report Released Date/Time: Mar 05, 2024 09:39 AM Reporting Lab: [facility] [address] [place] [phone] Performing Lab: [address] [address] *Adenovirus (BF) Not Detected Not Detected *Coronavirus [...] Detected Mar 05, 2024 09:00 AM [facility] CBC Specimen Type: BLOOD No comment entered. Ordering Provider: SALVADOR NEWTON Report Released Date/Time: Mar 05, 2024 08:52 AM Reporting Lab: [facility] [address] [facility] [facility] [address] Performing Lab: [address] [address] WBC 7.1 10*3/uL 3.6-11.2 RBC 4.84 10*6/uL [...] 0.00-0.20 Mar 05, 2024 09:00 AM [facility] TROPONIN I Specimen Type: PLASMA Comment: No hemolysis noted. Ordering Provider: SALVADOR NEWTON Report Released Date/Time: Mar 05, 2024 08:52 AM Reporting Lab: [place] [phone] Performing Lab: [address] [address] TROPONIN I 0.013 ng/mL 0-0.033 Mar 05, 2024 09:00 AM [facility] TSH (MA-PB) Specimen Type: SERUM No comment entered. Ordering Provider: SALVADOR NEWTON Report Released Date/Time: Mar 05, 2024 09:39 AM Reporting Lab: [place] [phone] Performing Lab: [address] [address] TSH 0.283 u[IU]/mL L 0.47-5 FREE T4(REFLEX) 1.10 ng/mL 0.7-1.48 Mar 05, 2024 09:00 AM [facility] COMPREHENSIVE METABOLIC PANEL Specimen Type: PLASMA Comment: No hemolysis noted. Ordering Provider: SALVADOR NEWTON Report Released Date/Time: Mar 05, 2024 08:52 AM Reporting Lab: [address] [address] Performing Lab: [address] [address] CREATININE 0.92 mg/dL 0.7-1.3 UREA NITROGEN 15.6 [...] >60 Mar 05, 2024 09:00 AM [facility] BRAIN NATRIURETIC PEPTIDE Specimen Type: PLASMA No comment entered. Ordering Provider: SALVADOR NEWTON Report Released Date/Time: Mar 05, 2024 09:39 AM Reporting Lab: [address] [address] Performing Lab: [address] [address] BRAIN NATRIURETIC PEPTIDE 16.2 pg/mL 0-100 Vital Signs: All taken on the encounter date This section contains inpatient and outpatient Vital Signs collected on the date of the Encounter. Date/Time Temperature Pulse Blood Pressure Respiratory Rate SP02 Pain Height Weight Body Mass Index Source Mar 05, 2024 11:45 AM 88 116/84 2 [facility] Mar 05, 2024 09:40 AM 98.6 [facility] Mar 05, 2024 08:48 AM 98 136 134/82 18 3 [facility] Social History: Smoking Status [...] 2021 03:59 PM VA-TOBACCO NEVER USED [facility] Radiology Reports: +/- 30 days [...] the Encounter. The data comes from all [place] treatment facilities. Date/Time Radiology Report Provider Source Mar 21, 2024 12:34 PM CHEST X-RAY, 2 VIEWS: JORDYN BAILEY [id number] -1985 M Exm Date: MAR 21, 2024@12:34 Req Phys: SUSAN BROWN Loc: -EMERGENCY DEPT 2ND SHIFT (R Img Loc: -MAIN RADIOLOGY SUITE Service: [address] [address] (Case [id number] COMPLETE) CHEST X-RAY, 2 VIEWS (RAD Detailed) CPT:44133 Reason for Study: cough, SOB Clinical History: Report Status: Verified Date Reported: MAR 21, 2024 Date Verified: MAR 21, 2024 [employer] Director [employer] E-Sig:/ES/Lynn Castro MD Report: CHEST X-RAY, 2 VIEWS CASE #: [id number] DATE:03/21/2024 12:39 PM CLINICAL HISTORY:cough, SOB COMPARISON: 03/05/2024, 05/20/2023, 05/28/2022 TECHNIQUE: CHEST X-RAY, 2 VIEWS Impression: FINDINGS/IMPRESSION: Low lung volumes. Top normal heart size. No CHF. Bibasilar atelectasis versus pneumonia. Correlate clinically. No pleural effusion. No pneumothorax. Primary Interpreting Staff: Lynn Castro MD, Radiologist (Senior Director [employer]) /LYNN ONEILL [facility] Mar 05, 2024 10:[address] PE CHEST W/3D: JORDYN BAILEY [id number] -1985 M Exm Date: MAR 05, 2024@10:00 Req Phys: SALVADOR NEWTON Loc: [facility]-EMERGENCY DEPT 2ND SHIFT (R Img Loc: [facility]-CT IMAGING [facility] Service: Unknown [facility] [address] [place] [address] (Case [id number] COMPLETE) CT THORAX W/CONT (PE) (CT Detailed) CPT:77141 Contrast Media : unspecified contrast media Reason [...] 05, 2024 Date Verified: MAR 05, 2024 Senior Director [employer] E-Sig: Report: CT THORAX W/CONT (PE) [PRINTSET] HISTORY: chest pain, tachycardia COMPARISON: 02/12/2024 TECHNIQUE: Helical CT of the chest, with multiplanar reformats including maximum intensity projection (MIP) reconstructions, was performed at the local [place] facility. 1529 images were received by the [place] National Telerad[facility] Program (NTP) for interpretation. RADIATION [...] excluded. 3. Cardiomegaly. READING PHYSICIAN: Wilfred Roberts -[phone] 03/05/2024 7:32 [facility] National Teleradiology Program [phone] (For Medical Practitioner Use Only) Attention Patients / Veterans: If you have questions or concerns about these test results, please contact your ordering provider or primary care team. Primary Interpreting Staff: RADIOLOGY,OUTSIDE SERVICE, Staff Physician / RADIOLOGY,OUTSIDE SERVICE [facility] Mar 05, 2024 08:59 AM CHEST PORTABLE: JORDYN BAILEY [id number] -1985 M Exm Date: MAR 05, 2024@08:59 Req Phys: SALVADOR NEWTON Loc: [facility]-EMERGENCY DEPT 2ND SHIFT (R Img Loc: -MAIN RADIOLOGY SUITE Service: [facility] [place], [facility] [address] [place] [address] (Case [id number] COMPLETE) CHEST PORTABLE (RAD Detailed) CPT:60138 Proc Modifiers : Portable Reason for Study: chest pain Clinical History: Report Status: Verified Date Reported: MAR 05, 2024 Date Verified: MAR 05, 2024 Senior Director [employer] E-Sig: Report: CHEST PORTABLE Comparison: 05/20/2023, 02/12/2024 Clinical History: chest pain The study was performed and supervised at the local [place] facility, and subsequently transmitted to [facility] NTP (National Teleradiology Program) for interpretation. Impression: Lungs: Small left effusion with left basilar opacity which may represent atelectasis or consolidation.. Cardiomediastinal silhouette: No enlargement of the cardiomediastinal silhouette. Bones and soft tissues: No acute finding. READING PHYSICIAN: Sandeep Kraft M.D. -[id number] 03/05/2024 7:29 PST [facility] National Teleradiology Program [phone] (For Medical Practitioner Use Only) Attention Patients / Veterans: If you have questions or concerns about these test results, please contact your ordering provider or primary care team. Primary Interpreting Staff: RADIOLOGY,OUTSIDE SERVICE, Staff Physician / RADIOLOGY,OUTSIDE SERVICE [facility] Feb 12, 2024 02:[address] THORAX W/O CONT HIGH RES: JORDYN BAILEY [id number] -1985 M Exm Date: FEB 12, 2024@14:18 Req Phys: FLOYD WOO Loc: [facility]-PULM GURINDER 1 (Req'g Loc) Img Loc: [facility]-CT IMAGING [facility] Service: Unknown [facility] [address] [place] [address] (Case [id number] COMPLETE) CT THORAX W/O CONT HIGH RES (CT Detailed) CPT:13234 Reason for Study: chronic cough, exertional dyspnea, + hazardous exposure hx Clinical History: Responsible Attending: floyd woo PA-C Attending Contact Number: [phone] Resident Contact Number: Allergies listed in CPRS chart: SHELLFISH Creatinine: CREATININE 0.95 mg/dL 11/25/2023 11:00 /eGFR: STL EGFR (within one year). CREATININE 0.95 mg/dL (11/25/23 11:00) Wt: 218.3 lb [99.02 kg] (01/14/2024 08:55) History of: Renal failure, chronic or acute renal disease: NO Report Status: Verified Date Reported: FEB 15, 2024 Date Verified: FEB 15, 2024 Senior Director [employer] E-Sig:/ES/Lynn Castro MD Report: CASE #: [id number] DATE:02/12/2024 4:23 PM CLINICAL HISTORY:chronic cough, exertional [...] Primary Interpreting Staff: Lynn Castro MD, Radiologist (Senior Director [employer]) /LYNN ONEILL [facility] Encounter Notes: All associated encounter notes This section contains the clinical notes associated to the Encounter. Date/Time Encounter Note(s) Provider Source Mar 05, 2024 12:55 PM EMERGENCY DEPT DIS CHARGE NOTE: LOCAL TITLE: DISCHARGE INSTRUCTIONS EMERGENCY DEPT STL STANDARD TITLE: EMERGENCY DEPT DISCHARGE NOTE DATE OF NOTE: MAR 05, 2024@12:55:48 ENTRY DATE: MAR 05, 2024@12:55:48 AUTHOR: SALVADOR NEWTON EXP COSIGNER: URGENCY: STATUS: COMPLETED DISCHARGE INSTRUCTIONS IMPORTANT: [...] Department visit. You were treated today by MD Enoc. YOU ARE THE MOST IMPORTANT FACTOR IN YOUR RECOVERY. Follow the provided instructions carefully. CONTACT INFORMATION: -Hospital Information: [facility] - [address] [place] [address]. [phone] -CRISIS Line: If you are having thoughts of harming yourself or thoughts of suicide immediately call the [place] Crisis line at [phone] -Nurse Line: If you have any questions regarding your health or symptoms please contact the nurse line at [phone] -General Help: Any questions or concerns, call [place] Clinical Contact Center - [phone]. Ask to speak to a doctor Thursday thru Thursday 8a-4:30p VISIT NOTES: If you had special tests, such as EKG's or X-rays, we will review them again within 24 hours. We will call you if there are any new suggestions. FOLLOW APPOINTMENT INFORMATION: It is important that you keep your scheduled appointments. If you have questions, or if you need to Make, Change or Cancel an Appointment or relay a message to your Primary Care or Specialty Care Provider please call [phone]. If you are not already established with a [place] primary rn critical care, an administrative request has been placed to offer that to you. You will recieve a notification for follow-up to be connected with a health care provider. Future Appointments 03/16/2024 at 10:15am [facility] 1 03/25/2024 at 3:30pm [facility] PACT B5 PCP 04/28/2024 at 3:00pm [facility] 1 05/27/2024 at 11:00am [facility] PACT B5 PCP MEDICATION INFORMATION: Take your medicines as prescribed. If you do not understand any of your medicines, please ask questions. If you think you may not be able to pick up operator your medicine, please let us know so [...] have your Medication List reviewed. Pending Medications AMOXICILLIN 875/CLAV K 125MG TAB \ Sig: TAKE 1 TABLET BY MOUTH TWICE A DAY TAKE WITH FOOD. TAKE UNTIL GONE UNLESS OTHERWISE DIRECTED.\Indication: PNEUMONIA Active Medications ALBUTEROL 90MCG (CFC-F) 200D ORAL INHL INHALE 2 PUFFS ORAL INHALATION FOUR TIMES A DAY NEEDED FOR ASTHMA SHAKE WELL. RINSE MOUTHPIECE FREQUENTLY TO PREVENT CLOGGING. BENZONATATE 200MG CAP TAKE ONE CAPSULE BY MOUTH THREE TIMES A DAY NEEDED FOR COUGH DICLOFENAC NA 50MG EC TAB TAKE ONE TABLET BY MOUTH EVERY MORNING AND EVENING FOR PAIN - TAKE WITH FOOD PANTOPRAZOLE NA 40MG EC TAB TAKE ONE TABLET BY MOUTH EVERY MORNING BEFORE A MEAL TAKE 30 MINUTES BEFORE MEAL(S) TRAZODONE HCL 100MG TAB TAKE ONE-HALF TABLET BY MOUTH AT BEDTIME FOR SLEEP Medications Medications in the last 90 days DICLOFENAC NA 1% TOP GEL APPLY 2 GM TO AFFECTED AREA(S) FOUR TIMES A DAY NEEDED FOR PAIN DO NOT EXCEED MORE THAN 16 GRAMS DAILY TO ANY LOWER EXTREMITY JOINT. NOT MORE THAN 8 GRAMS DAILY TO ANY UPPER EXTREMITY JOINT. MAX 32GM/DAY OVER ALL JOINTS. (MEASURE DOSE WITH RULER ATTACHED INSIDE BOX) FLUTICAS 250/SALMETEROL 50 INHL DISK 60 INHALE 1 INHALATION ORAL INHALATION TWICE A DAY FOR ASTHMA (OPEN DISKUS; CLICK ONLY ONCE; MAY INHALE TWICE TO COMPLETE DOSE; CLOSE WHEN FINISHED) RINSE MOUTH AND SPIT AFTER EACH USE. HYDROCODONE 5MG/ACETAMINOPHEN 325MG TAB TAKE ONE-HALF TABLET BY MOUTH EVERY 6 HOURS NEEDED FOR PAIN CAUTION: DO NOT EXCEED 4000MG PER DAY ACETAMINOPHEN (APAP) FROM ALL MEDS. METHYLPREDNISOLONE 4MG TAB DOSEPAK,21 TAKE TABLETS BY MOUTH DIRECTED TAKE 6 TABLETS BY MOUTH ON DAY ONE, THEN DECREASE BY ONE TABLET DAILY UNTIL GONE. TAKE WITH FOOD. PREDNISONE 20MG TAB TAKE ONE TABLET BY MOUTH EVERY MORNING TAKE WITH FOOD OR MILK. This Information Is About Your Illness and Diagnosis CHEST PAIN, UNKNOWN CAUSE People often think that the source of chest pain is the heart. It is true that chest pain can be caused by a reduced amount of oxygen-rich blood to the heart ( angina ). Chest pain can also be a sign of a heart attack, when the heart muscle is damaged from lack of oxygen-rich blood. A number of other sources cause chest pain as well. Chest pain can also come from: -other organs in the chest, such as the lungs, esophagus (tube that connects the mouth to the stomach), aorta (major oxygen-carrying blood vessel), and linings around the heart -structures that make up the chest wall, including bone, muscles, and soft tissues -organs close to the chest area, such as the stomach and gall bladder -referred pain from the diaphragm, neck, or back You may have had tests and procedures to check for heart disease or heart damage. Your symptoms and tests did not confirm that your chest pain is related to your heart. It is still possible that you may have some heart disease ( coronary artery disease ) that didn't show up in your tests. What causes chest pain (other than coronary artery disease)? -inflammation (swelling) or an infection in the lining around your heart -muscle soreness after an activity that involved the chest muscles -any kind of injury to the chest, including surgery -weakening of the lining of the aorta (major oxygen-carrying blood vessel in the chest) -diseases that cause pain, such as arthritis or fibromyalgia -shingles, a virus that can cause pain before the painful rash appears -problems with your digestive system, such as heartburn, acid reflux, stomach ulcers, gallbladder disease, or irritable bowel syndrome -problems affecting the lungs, such as pneumonia (an infection in the lungs), a collapsed lung, pleurisy or pleuritis (inflammation of the lining around the lung), or blood clots in the lungs -anxiety or panic disorder What are the usual signs and symptoms of chest pain NOT related to the heart? -The pain may feel like a sharp or stabbing feeling. -The pain is not regular (comes and goes) and may be worse at different times. -The pain begins suddenly and is worse in the beginning. It may last from a few seconds to a few hours. -The pain has been constant for several days or weeks. -The pain may be in a different place in your chest at different times. -The pain occurs in a specific spot in your chest, or it is not in the center of your chest. -The pain is not related to rest or physical activity. -The pain is worse when taking a deep breath or when someone presses on a certain area. -The pain may or may not get better with a heart medicine called Nitroglycerin . Pain related to muscle spasms also improves with Nitroglycerin. What are the usual signs and symptoms of pain related to the heart (angina)? -The pain is usually described as chest discomfort: an ache, squeezing, tightness, pressure, strangling, burning, fullness in the chest, band-like sensation, heavy weight on chest. -The pain is not in a specific spot. It is usually described as being in the middle of the chest. -The pain usually comes on gradually and gets worse over time. -The pain or pressure that may go to the neck, jaw, left shoulder, or both arms. -The pain may start or get worse with physical activity and get better with rest. -Other symptoms may also occur with chest pain related to the heart: -nausea or vomiting -trouble breathing -fast or irregular heart rate -a feeling of anxiousness or nervousness -sweating, with a cold and clammy feeling to the skin -dizziness or weakness What tests may be done? -a physical exam, including listening to you describe your symptoms -an electrocardiogram (EKG) - this will show how your heart is beating -chest x-ray or CT scan -lab tests and other tests to find out what is causing your pain Please follow these instructions: -Take any new medicines exactly as prescribed. -Follow up with your health care provider. This is very important since the exact cause of your chest pain is unknown! -Do not smoke or use tobacco. Contact your health care provider if you need help quitting. -If you are feeling stressed or anxious, talk about your feelings to a family member, friend, or support group. Talk with your health care provider if you need help to arrange counseling. Call 911 if you have: -pressure, tightness or heaviness in your chest. The pain or pressure may go to the neck, jaw, left shoulder or both arms. Increased activity or emotions may bring on the pain. -nausea or vomiting -trouble breathing or a cough -a feeling of anxiousness or nervousness -sweating or a clammy feeling to your skin -dizziness, weakness, or fainting Contact your health care provider as soon as possible if you have: -weakness or increased tiredness during your routine activities. -an increase in the number of times you get chest pain. -any new or bothersome symptoms. Thank you for your service! PNEUMONIA Pneumonia is an infection in one or both lungs. Our lungs contain airways that get smaller and smaller, like branches on a tree. At the end of each tiny branch (airway) are many small air sacs called alveoli . The alveoli resemble balloons. In people with healthy lungs, the airways are clear and open. Each tiny air sac fills up with air when you inhale (breathe in). With pneumonia, the alveoli are filled with pus and fluid. This makes breathing painful. It also limits the amount of oxygen available to your body. This topic addresses community-acquired pneumonia ( CAP ). CAP occurs in people who develop pneumonia in their daily life, not from being in the hospital. Medicines used to treat CAP are often different from medicines used to treat people with hospital-acquired pneumonia. (The organisms that cause hospital-acquired pneumonia are more likely to be resistant to antibiotics. This means the organisms are harder to kill.) CAP can range from being mild to being severe. Some people may call mild forms of community-acquired pneumonia walking pneumonia because they don't feel very sick and can still do much of their daily activities. What causes pneumonia? Pneumonia has a number of causes: bacteria, viruses, mycoplasma, fungi, and various chemicals. Bacterial pneumonia may occur on its own or as a complication of a cold or the respiratory flu. In people with a weakened immune system, bacteria that are normally found in the mouth and nose can multiply and travel to the lungs, causing an infection. The most common bacteria that cause pneumonia are streptococcus (pneumoncoccus). A vaccine is available to prevent this type of pneumonia. Viral pneumonia is caused by a virus, often from the influenza virus. Most respiratory viruses attack the nose and throat, though some can invade the lungs. The viruses then multiply. The lungs don't usually fill with fluid with this type of pneumonia. This is a serious form of pneumonia for women and for people who have heart and lung conditions. People with viral pneumonia are also at risk of developing bacterial pneumonia. You are more likely to get pneumonia if your body is worn down , such as from fighting an infection. People are at a higher risk of pneumonia if they: -have recently had a cold or the flu -have recently had surgery -have a long-term or chronic disease, such as cystic fibrosis, asthma, diabetes, COPD, or heart disease -are taking certain medicines, such as corticosteroids or chemotherapy -have an illness that makes it hard to fight infections, such as cancer or AIDS -have had a stroke or seizure, or have swallowing problems -smoke or live with a smoker How does my health care provider know I have pneumonia? Signs and symptoms: -shortness of breath, fast breathing, and fast heart rate -cough that brings up greenish, yellow, or bloody mucus -fever and chills -chest or back pain, which may feel like a stabbing pain -weakness, tiredness What tests may be done? -physical exam and medical history -chest x-ray to identify inflammation in your lungs -lab tests: Certain tests may be done to find out what type of organism is causing your symptoms. -pulse oximetry: This device measures how much oxygen is moving through your blood. How can pneumonia affect my health? What are the complications or risks? When you have pneumonia, it is harder for oxygen to get into your blood. If there is too little oxygen in your blood, your body cells don't work well. There is also a risk of infection spreading throughout your body. This can be quite severe, and can cause . What is the usual treatment? The goal of treatment is to cure the infection and prevent complications. Most people with community-acquired pneumonia are treated with antibiotics. Many are able to be treated at home by resting and taking their antibiotic medicine by mouth. Those that have more serious cases of pneumonia may require treatment in the hospital. Treatment may include antibiotics given through an IV in the vein; monitoring of breathing rate, heart rate, temperature, and blood oxygen levels; and extra oxygen by nose tube or face mask. People with severe cases of pneumonia may need the help of a breathing machine, called a ventilator. When you go home, you will likely still have some symptoms: -cough -low energy level -trouble sleeping -lack of appetite Be patient, all of these will slowly improve over the next couple of weeks. Most people start to feel better within 3 to 5 days of taking their medicine, although a cough from pneumonia can last weeks or months after treatment. Please follow these instructions: General: -Limit [id number] contact with family members or visitors. Most types of pneumonias are spread by contact with nasal or mouth secretions (e.g. through coughing, sneezing, or touching infected tissues without washing one's hands). Cover your mouth when coughing or sneezing by doing so into your sleeve near your inner elbow. -To protect yourself, ask visitors who have a cold to wear a mask around you. -Do not take cough syrup or cough suppressants unless instructed by your health care provider. Coughing helps clear the mucus from your lungs. When you cough, cough into a tissue. Throw the tissue into the garbage, then wash your hands. -Do not smoke. If you need help quitting, talk with your health care provider. Do not allow others to smoke around you. -If you were prescribed an antibiotic medicine, take it for the full length of treatment. This is important to make sure the infection completely goes away. -Talk to your health care provider about taking nonsteroidal anti-inflammatory medicines (such as ibuprofen, Motrin, Advil, or naproxen) or acetaminophen (Tylenol) for pain or fever. To help loosen the mucus in your lungs: -Breath in warm, moist air. Fill a humidifier with warm water and breathe in the mist. You can also try placing a warm, wet washcloth loosely over your nose and mouth. Breathe in the humid air. -Take a few deep breaths 2 or 3 times every hour to help open up your lungs. -Tap your chest gently with your hand a few times a day. -Lie down for a minute or so with your head lower than your chest. Do this several times a day. Activity: Get plenty of rest. If you have trouble sleeping at night, take naps during the day. Arrange for someone to help you around the house or with children counselor. If you are working, you'll need to take some time off of work in order to recover. Gradually return to your normal activities, as you are able. Take frequent rest breaks throughout the day until you are well. Diet: Eat a healthy, well-balanced diet. If it's okay with your health care provider, drink extra liquids to help loosen secretions and cough up phlegm. Do not drink alcohol when you have pneumonia. If you will be going home with oxygen (your oxygen supplier can help with tips for using oxygen safely): Never change how much oxygen is flowing without asking your health care provider. Always have a back-up supply of oxygen that is accessible to you. Never let anyone smoke near your tank! Prevent pneumonia in the future: -Wash your hands often with soap and water, even when you are well. -Try to stay healthy by eating well, staying active, and getting 7 to 9 hours of sleep every night. -Make sure to get a flu shot every year. Ask your health care provider if you also need a pneumonia vaccine. -If you smoke, try to quit. -Manage or control any health conditions you may have, such as diabetes, asthma, or COPD. Contact your health care provider immediately if you are struggling to breathe. Contact your health care provider as soon as possible if: -you are having a lot of headaches. -you feel more tired than usual, feel confused, or feel feverish. -you notice that your cough brings up phlegm that has darkened in color or contains blood. -your fingertips turn blue. -have any new or bothersome symptoms. Contact your health care provider as soon as possible if you have: -Concerns for an emergency medical condition -Uncontrolled pain or other life-threatening symptoms -Any worries or concerns -Other: _ END OF INSTRUCTIONS /es/ Salvador Newton MD Staff ED Attending Physician Signed: 03/05/2024 12:55 [facility]
--- OUTSIDE RECORDS SUMMARY | 2024-04-10 06:56 | XMS_ITS ---
Author Name [facility] Organization [facility] Address [address], [place] [address] Care Team Providers Care Palliative Medicine Physician Name Role Phone KODAK MORTON Primary Care [...] CHOIC E PREFE RR Apr 13, 2020 [id number] [phone] BOOGIE BAILEY ANDON PATIENT ANTHEM [employer] [place] PREFERRED PROVIDER ORGANIZAT ION (PPO) BLUE CHOIC E PREFE RR Apr 13, 2020 [id number] [phone] LYNN,BOOGIE ANDON PATIENT AN[employer] [employer] [place] PREFERRED PROVIDER ORGANIZAT ION (PPO) BLUE CHOIC E PREFE RR Apr 13, 2020 [id number] [phone] LYNN,BOOGIE ANDON PATIENT [place] PREFERRED PROVIDER ORGANIZAT ION (PPO) BLUE CHOIC E PREFE RR Apr 13, 2020 [id number] [phone] BOOGIE BAILEY PATIENT PRIME THERAPEUTI CS RX PRESCRIPT ION BCBSI L [place] Apr 13, 2020 BCBSIL [id number] [phone] BOOGIE BAILEY PATIENT [facility] 2018 TRICA RE May 10, 2019 SELECT [id number] BOOGIE BAILEY PATIENT Selected Encounter This section includes the information on record at ME for the Encounter. Date/Time Encounter Type Encounter Description Reason Provider Source Mar 21, 2024 12:14 PM EMR DPT VST MAYX REQ PHY/QHP EMERGENCY DEPT ICD-10-CM Z53.21 Proc/trtmt not crd out d/t pt lv bef seen by [facility] RISHI MONTANO Encounter Template Text not used by ME Assessments - Encounter Diagnoses This section includes the primary and secondary diagnoses documented for the Encounter. Date/Time Primary/Secondary Diagnosis Diagnosis Name Provider Source Mar 21, 2024 04:37 PM PRIMARY Proc/trtmt not crd out d/t pt lv bef seen by [facility] SEAN WARNER [facility] Plan of Treatment: Future Appointments (+ 6 months) and Future Tests (+/- 45 days) The Plan of Treatment section includes future care activities for the patient from all ME treatmentfacilities. This section includes future appointments and future orders which are active, pending or scheduled. Future Appointments This section includes appointments that were scheduled to occur 6 months from the date of the Encounter, up to a maximum of 20 appointments. The data comes from all ME treatment facilities. Appointment Date/Time Appointment Type Appointme nt Facility Name Apr 01, 2024 10:00 AM AMBULATORY - PSYCHIATRY [facility] Apr 18, 2024 11:00 AM AMBULATORY - PSYCHIATRY [facility] Apr 28, 2024 03:00 PM AMBULATORY - MEDICINE [facility] May 05, 2024 11:30 AM AMBULATORY - MEDICINE [facility] May 27, 2024 11:00 AM AMBULATORY MEDICINE [facility] Active, Pending, and Scheduled Orders This section includes a listing of several types of active, pending, and scheduled orders, including clinic medications orders, diagnostic test orders, procedure orders and consult orders; where the start date of the order is 45 days before the date of the Encounter or 45 days after the date of theEncounter. The data comes from all ME treatment facilities. Test Date/Time Test Type Test Details Facility Name Mar 16, 2024 10:22 AM Consult Order [facility]IC [facility]G [facility] Mar 21, 2024 03:48 PM Procedure Order CP EKG STL CP EKG - STL Proc Stevedoring Superintendent'[facility] Lab Results: +/- 30 days of the encounter This section includes the Chemistry and Hematology Lab Results on record with ME for the patient. Radiology Reports and Pathology Reports are provided separately, in subsequent sections. Lab Results This section contains the Chemistry/Hematology Results that were resulted 30 days before or 30 daysafter the date of the Encounter. Date/Time Source Result Type Result - Unit Interpretation Reference Range Comment Mar 21, 2024 12:30 PM [facility] COMPREHENSIVE METABOLIC PANEL Specimen Type: PLASMA Comment: No hemolysis noted. Ordering Provider: SUSAN BROWN Report Released Date/Time: Mar 21, 2024 12:23 PM Reporting Lab: [facility] [address] [facility] [address] Performing Lab: [address] [address] CREATININE 1.00 mg/dL 0.7-1.3 UREA NITROGEN 18.1 [...] 98.2 >60 Mar 21, 2024 12:30 PM [facility] CBC Specimen Type: BLOOD No comment entered. Ordering Provider: SUSAN BROWN Report Released Date/Time: Mar 21, 2024 12:23 PM Reporting Lab: [facility] [address] [facility] [address] Performing Lab: [facility] [address] [place] [address] WBC 7.2 10*3/uL 3.6-11.2 RBC 4.24 10*6/uL [...] 10*3/uL 0.00-0.20 Mar 05, 2024 11:10 AM [facility] TROPONIN I Specimen Type: PLASMA No comment entered. Ordering Provider: MUKESH MARINELLI Report Released Date/Time: Mar 05, 2024 11:04 AM Reporting Lab: [facility] [address] [place] [address] Performing Lab: [address] [address] TROPONIN I <0.010 ng/mL 0-0.033 Mar 05, 2024 09:50 AM [facility] RESPIRATORY PCR PANEL Specimen Type: NASOPHARYNX Comment: The RoomRevealArray RP Panel combines nested multiplex PCR and [...] available to the clinician evaluating the patient. NativeADGLORIA RoomRevealKelly Skinner, ([phone]) Ordering Provider: MUKESH MARINELLI Report Released Date/Time: Mar 05, 2024 09:39 AM Reporting Lab: [address] [address] Performing Lab: [address] [address] *Adenovirus (BF) Not Detected Not Detected *Coronavirus [...] Not Detected Mar 05, 2024 09:00 AM [facility] CBC Specimen Type: BLOOD No comment entered. Ordering Provider: MUKESH MARINELLI Report Released Date/Time: Mar 05, 2024 08:52 AM Reporting Lab: [facility] [address] [facility] [address] Performing Lab: [address] [address] WBC 7.1 10*3/uL 3.6-11.2 RBC 4.84 10*6/uL [...] 10*3/uL 0.00-0.20 Mar 05, 2024 09:00 AM [facility] TROPONIN I Specimen Type: PLASMA Comment: No hemolysis noted. Ordering Provider: MUKESH MARINELLI Report Released Date/Time: Mar 05, 2024 08:52 AM Reporting Lab: [address] [address] Performing Lab: [address] [address] TROPONIN I 0.013 ng/mL 0-0.033 Mar 05, 2024 09:00 AM [facility] TSH (MA-PB) Specimen Type: SERUM No comment entered. Ordering Provider: MUKESH MARINELLI Report Released Date/Time: Mar 05, 2024 09:39 AM Reporting Lab: [address] [address] Performing Lab: [place] [address] [facility] [address] TSH 0.283 u[IU]/mL L 0.47-5 FREE T4(REFLEX) 1.10 ng/mL 0.7-1.48 Mar 05, 2024 09:00 AM [facility] BRAIN NATRIURETIC PEPTIDE Specimen Type: PLASMA No comment entered. Ordering Provider: MUKESH MARINELLI Report Released Date/Time: Mar 05, 2024 09:39 AM Reporting Lab: [address] [address] Performing Lab: [address] [address] BRAIN NATRIURETIC PEPTIDE 16.2 pg/mL 0-100 Mar 05, 2024 09:00 AM [facility] COMPREHENSIVE METABOLIC PANEL Specimen Type: PLASMA Comment: No hemolysis noted. Ordering Provider: MUKESH MARINELLI Report Released Date/Time: Mar 05, 2024 08:52 AM Reporting Lab: [address] [address] Performing Lab: [address] [address] CREATININE 0.92 mg/dL 0.7-1.3 UREA NITROGEN 15.6 [...] Height Weight Body Mass Index Source Mar 21, 2024 03:35 PM 75 117/83 16 [facility] Mar 21, 2024 12:20 PM 99 128 135/83 20 6 [facility] Social History: Smoking Status (Most current) and Tobacco Use (All prior to encounter date) This section includes the most current, and the historical, smoking and tobacco- related health factors from the ME facility where the Encounter took place. Current Smoking Status This section includes the most current smoking, or tobacco-related health factor, from the ME facility where the Encounter took place. Date/Time Current Smoking Status Comment Facil ity Feb 26, 2021 03:59 PM VA-TOBACCO NEVER USED [facility] Radiology Reports: +/- 30 days [...] the Encounter. The data comes from all ME treatment facilities. Date/Time Radiology Report Provider Source Mar 21, 2024 12:34 PM CHEST X-RAY, 2 VIEWS: JORDYN BAILEY [id number] -1985 M Exm Date: MAR 21, 2024@12:34 Req Phys: SUSAN BROWN Loc: [facility]-EMERGENCY DEPT 2ND SHIFT (R Img Loc: -MAIN RADIOLOGY SUITE Service: [facility], [facility] [address] [place] [address] (Case [id number] COMPLETE) CHEST X-RAY, 2 VIEWS (RAD Detailed) CPT:05738 Reason for Study: cough, SOB Clinical History: Report Status: Verified Date Reported: MAR 21, 2024 Date Verified: MAR 21, 2024 Precision Lens Technician E-Sig:/ES/Lynn Castro MD Report: CHEST X-RAY, 2 VIEWS CASE #: [id number] DATE:03/21/2024 12:39 PM CLINICAL HISTORY:cough, SOB COMPARISON: 03/05/2024, 05/20/2023, 05/28/2022 TECHNIQUE: CHEST X-RAY, 2 VIEWS Impression: FINDINGS/IMPRESSION: Low lung volumes. Top normal heart size. No CHF. Bibasilar atelectasis versus pneumonia. Correlate clinically. No pleural effusion. No pneumothorax. Primary Interpreting Staff: Lynn Castro MD, Radiologist (Precision Lens Technician) /LYNN ONEILL [facility] Mar 05, 2024 10:[address] PE CHEST W/3D: JORDYN BAILEY [id number] -1985 M Exm Date: MAR 05, 2024@10:00 Req Phys: MUKESH MARINELLI Loc: [facility]-EMERGENCY DEPT 2ND SHIFT (R Img Loc: [facility]-CT IMAGING [facility] Service: [address] [address] (Case [id number] COMPLETE) CT THORAX W/CONT (PE) (CT Detailed) CPT:68286 Contrast Media : unspecified contrast media Reason [...] 05, 2024 Date Verified: MAR 05, 2024 Precision Lens Technician E-Sig: Report: CT THORAX W/CONT (PE) [PRINTSET] HISTORY: chest pain, tachycardia COMPARISON: 02/12/2024 TECHNIQUE: Helical CT of the chest, with multiplanar reformats including maximum intensity projection (MIP) reconstructions, was performed at the local ME facility. 1529 images were received by the [place] National Teleradiology Program (NTP) for interpretation. RADIATION [...] excluded. 3. Cardiomegaly. READING PHYSICIAN: Wilfred Roberts -[phone] 03/05/2024 7:[address] [facility] National Teleradiology Program [phone] (For Medical Practitioner Use Only) Attention Patients / Veterans: If you have questions or concerns about these test results, please contact your ordering provider or primary care team. Primary Interpreting Staff: RADIOLOGY,OUTSIDE SERVICE, Staff Physician / RADIOLOGY,OUTSIDE SERVICE [facility] Mar 05, 2024 08:59 AM CHEST PORTABLE: JORDYN BAILEY [id number] -1985 M Exm Date: MAR 05, 2024@08:59 Req Phys: MUKESH MARINELLI Loc: [facility]-EMERGENCY DEPT 2ND SHIFT (R Img Loc: -MAIN RADIOLOGY SUITE Service: [facility], [facility] [address] [place] [address] (Case [id number] COMPLETE) CHEST PORTABLE (RAD Detailed) CPT:40886 Proc Modifiers : Portable Reason for Study: chest pain Clinical History: Report Status: Verified Date Reported: MAR 05, 2024 Date Verified: MAR 05, 2024 Precision Lens Technician E-Sig: Report: CHEST PORTABLE Comparison: 05/20/2023, 02/12/2024 Clinical History: chest pain The study was performed and supervised at the local [place] facility, and subsequently transmitted to [facility] NTP (National Teleradiology Program) for interpretation. Impression: Lungs: Small left effusion with left basilar opacity which may represent atelectasis or consolidation.. Cardiomediastinal silhouette: No enlargement of the cardiomediastinal silhouette. Bones and soft tissues: No acute finding. READING PHYSICIAN: Sandeep Kraft M.D. -[phone] 03/05/2024 7:[address] [facility] National Teleradiology Program [phone] (For Medical Practitioner Use Only) Attention Patients / Veterans: If you have questions or concerns about these test results, please contact your ordering provider or primary care team. Primary Interpreting Staff: RADIOLOGY,OUTSIDE SERVICE, Staff Physician / RADIOLOGY,OUTSIDE SERVICE [facility] Encounter Notes: All associated encounter notes This section contains the clinical notes associated to the Encounter. Date/Time Encounter Note(s) Provider Source Mar 21, 2024 03:37 PM PHYSICIAN EMERGENC Y DEPT NOTE: LOCAL TITLE: EMERGENCY DEPARTMENT STL STANDARD TITLE: PHYSICIAN EMERGENCY DEPT NOTE DATE OF NOTE: MAR 21, 2024@15:37 ENTRY DATE: MAR 21, 2024@15:38:19 AUTHOR: MELLO CANNON EXP COSIGNER: RISHI MONTANO URGENCY: STATUS: COMPLETED EMERGENCY DEPARTMENT STL Has ADDENDA TRIAGE CHIEF COMPLAINT: cough HPI: 39 year old male with PMH of persistent cough after COVID, steatosis of liver, PTSD, MDD who presents with a non-productive cough and right-sided pleuritic chest pain. Symptoms started over two weeks ago. Came to the ER on 03/05/24, respiratory viral panel, CTPE negative for PE but did show a left lower lobe consolidation. Discharged home on 7 day course of Augmentin for presumed bacterial pneumonia. However coming back in now because symptoms haven't improved despite antibiotics and antitussives. Chest pain is right-sided, non- reproducible, worse with inspiration and coughing, improves with ibuprofen. Reports temperature of 100 at home last night. Denies nasal congestion, myalgias, new joint pain, sick contacts, nausea, vomiting, diarrhea, calf swelling or tenderness. [place] has been following with Pulmonology for chronic cough since a Covid infection 04/2023. Has trialed cough suppressants and albuterol prn without relief. Has past hx of residual cough last several weeks following URIs c/f possible asthma variant/reactive airway disease. REVIEW OF SYSTEMS: See HPI for further [...] RINSE MOUTHPIECE FREQUENTLY TO PREVENT CLOGGING. 2) AMOXICILLIN 875/CLAV K 125MG TAB TAKE 1 TABLET BY ACTIVE MOUTH TWICE A DAY TAKE WITH FOOD. TAKE UNTIL GONE UNLESS OTHERWISE DIRECTED. 3) BENZONATATE 200MG CAP TAKE ONE CAPSULE BY MOUTH THREE ACTIVE TIMES A DAY NEEDED FOR COUGH 4) DICLOFENAC NA 50MG EC TAB TAKE ONE TABLET BY MOUTH ACTIVE EVERY MORNING AND EVENING FOR PAIN - TAKE WITH FOOD 5) PANTOPRAZOLE NA 40MG EC TAB TAKE ONE TABLET BY MOUTH ACTIVE EVERY MORNING BEFORE A MEAL FOR GASTROESOPHAGEAL REFLUX DISEASE TAKE 30 MINUTES BEFORE MEAL(S) 6) TRAZODONE HCL 100MG TAB TAKE ONE-HALF TABLET BY MOUTH ACTIVE AT BEDTIME FOR SLEEP 1) KETOROLAC INJ IVP ONE-TIME 30MG/1ML 2) CODEINE 10MG/GUAIF 100MG/5ML UD 10ML PO ONE-TIME 5 MLS. I have reviewed the patient's medication list with the patient and/or his/her care-radiologic tech. Any medication discrepancies have been resolved. Patient will be provided with an updated list of his/her medication(s). SURGICAL HISTORY: as noted above FAMILY HISTORY: as noted above or not pertinent SOCIAL HISTORY: Tobacco: denies Alcohol: denies Illicit Drugs: denies ALLERGIES: Review of patient's allergies indicates: SHELLFISH PHYSICAL EXAM: VITAL SIGNS: 117/83 (03/21/2024 15:35)75 (03/21/2024 15:35)98% (03/16/2024 10:04)99 F [37.2 C] (03/21/2024 12:20)16 (03/21/2024 15:35) CONSTITUTIONAL: mild discomfort from constant cough, non-toxic appearing HENT: NC/AT EYES: PERRL, EOM GI NECK: Supple, No LAD CARDIOVASCULAR: tachycardic, regular, no murmurs appreciated PULMONARY/CHEST: normal respiratory effort, chest wall non-tender, CTAB, no wheezing, rales, rhonchi ABDOMEN: BS+, soft, NT/ND : deferred RECTAL: deferred EXTREMITIES: No calf tenderness, swelling, or erythema bilaterally NEUROLOGIC: CN 2-12 GI, no gross motor or sensory deficits SKIN: no gross rash ED COURSE & MEDICAL DECISION MAKING: Nursing notes, medications, vital signs, allergies and pertinent labs & imaging studies reviewed (see chart for details) with lab results reviewed with patient and family/caregivers at bedside and radiology results reviewed with patient and any family/caregivers at bedside. DIFFERENTIAL DIAGNOSES CONSIDERED: Pneumonia Pulmonary embolism Post-viral cough Reactive airway disease Pulmonary embolism GERD Interstitial lung disease Upper airway cough syndrome Asthma LABS: SODIUM 136 mEq/L 03/21/2024 12:30 POTASSIUM 4.2 mEq/L 03/21/2024 12:30 CHLORIDE 102 mEq/L 03/21/2024 12:30 UREA NITROGEN 18.1 mg/dL 03/21/2024 12:30 CREATININE 1.00 mg/dL 03/21/2024 12:30 CALCIUM 9.7 mg/dL 03/21/2024 12:30 PROTEIN 9.6 H g/dL 03/21/2024 12:30 ALBUMIN 3.4 g/dL 03/21/2024 12:30 ALKALINE PHOSPHATASE 109 U/L 03/21/2024 12:30 ALT/SGPT 37 U/L 03/21/2024 12:30 AST/SGOT 48 H U/L 03/21/2024 12:30 TOTAL BILIRUBIN 1.1 mg/dL 03/21/2024 12:30 CARBON DIOXIDE 23 mEq/L 03/21/2024 12:30 GLUCOSE 105 H mg/dL 03/21/2024 12:30 EGFR (CKD-EPI 2020) 98.2 03/21/2024 12:30 WBC 7.2 10*3/uL 03/21/2024 12:30 RBC 4.24 10*6/uL 03/21/2024 12:30 HGB 11.1 L g/dL 03/21/2024 12:30 HCT 33.9 L % 03/21/2024 12:30 MCV 80.0 fL 03/21/2024 12:30 MCH 26.2 L pg 03/21/2024 12:30 MCHC 32.7 L g/dL 03/21/2024 12:30 RDW 13.4 % 03/21/2024 12:30 PLT 352 10*3/uL 03/21/2024 12:30 MPV 10.0 fL 03/21/2024 12:30 NEUTROPHILS, AUTO % 74 % 03/21/2024 12:30 LYMPHOCYTES, AUTO % 17 % 03/21/2024 12:30 MONOCYTES, AUTO % 7 % 03/21/2024 12:30 EOSINOPHILS, AUTO % 2 % 03/21/2024 12:30 BASOPHILS, AUTO % 0 % 03/21/2024 12:30 NEUTROPHILS, ABSOLUTE 5.34 10*3/uL 03/21/2024 12:30 LYMPHOCYTES, ABSOLUTE 1.22 10*3/uL 03/21/2024 12:30 MONOCYTES, ABSOLUTE 0.48 10*3/uL 03/21/2024 12:30 EOSINOPHILS, ABSOLUTE 0.13 10*3/uL 03/21/2024 12:30 BASOPHILS, ABSOLUTE 0.01 10*3/uL 03/21/2024 12:30 RADIOLOGY: CHEST X-RAY, 2 VIEWS Low lung volumes. Top normal heart size. No CHF. Bibasilar atelectasis versus pneumonia. Correlate clinically. No pleural effusion. No pneumothorax. ECG IMPRESSION: awaiting collection FLEET MECHANIC SERVICE/TIME: 45 minutes MEDICATIONS GIVEN IN ED: [x] YES [ ] NO Critical care time 30 minutes, exclusive of other separately billable procedures. Critical decision- making includes but not limited to history/physical, review of labs, imaging, and outside records. The patient was reassessed 3 times. DECISION to ADMIT / DISCHARGE TIME: pending improvement with cough suppressants, pain medications, and IV fluids. See attending note for further details. DISPOSITION CONDITION:[x] Improved [ ] Unchanged [ ] Deteriorated ADDITIONAL SIGNATURE PCP: [x] YES [ ] NO [ ] not listed CLINICAL IMPRESSION: 1 - Chronic cough secondary to post-viral cough, possible reactive airway disease/cough variant asthma 2 - 3 - DISCHARGE INSTRUCTIONS AND PATIENT-DIRECTED FOLLOW-UP RECOMMENDATIONS: Discharge to home. Continue all prescription medications including inhalers as prescribed. Take cough medication as needed. Follow up with your PCP as scheduled. DIET: regular, no restrictions ACTIVITY: as tolerated, no restrictions NEW MEDS: to be determined MEDICATION RECONCILIATION: CONTINUE ALL PRESCRIBED MEDICATIONS DIRECTED FOLLOW-UP WITH PRIMARY POLE SHAVER HELPER/SPECIALIST: PCP, care management assistant, battery engineer RETURN TO EMERGENCY: for worsening symptoms including but not limited to chest pain, productive cough, fever, chills, inability to tolerate oral intake Active Outpatient Medications (including Supplies): Active Outpatient Medications Status 1) ALBUTEROL 90MCG (CFC-F) 200D ORAL INHL INHALE 2 PUFFS ACTIVE ORAL INHALATION FOUR TIMES A DAY NEEDED FOR ASTHMA SHAKE WELL. RINSE MOUTHPIECE FREQUENTLY TO PREVENT CLOGGING. 2) AMOXICILLIN 875/CLAV K 125MG TAB TAKE 1 TABLET BY ACTIVE MOUTH TWICE A DAY TAKE WITH FOOD. TAKE UNTIL GONE UNLESS OTHERWISE DIRECTED. 3) BENZONATATE 200MG CAP TAKE ONE CAPSULE BY MOUTH THREE ACTIVE TIMES A DAY NEEDED FOR COUGH 4) DICLOFENAC NA 50MG EC TAB TAKE ONE TABLET BY MOUTH ACTIVE EVERY MORNING AND EVENING FOR PAIN - TAKE WITH FOOD 5) PANTOPRAZOLE NA 40MG EC TAB TAKE ONE TABLET BY MOUTH ACTIVE EVERY MORNING BEFORE A MEAL FOR GASTROESOPHAGEAL REFLUX DISEASE TAKE 30 MINUTES BEFORE MEAL(S) 6) TRAZODONE HCL 100MG TAB TAKE ONE-HALF TABLET BY MOUTH ACTIVE AT BEDTIME FOR SLEEP /es/ MELLO CANNON RESIDENT PHYSICIAN Signed: 03/21/2024 16:29 /es/ RISHI MONTANO MD EMERGENCY MEDICINE Cosigned: 03/21/2024 18:53 Receipt Acknowledged By: 03/22/2024 10:19 /nataliia/ Kodak Morton MD Staff Physician 03/21/2024 ADDENDUM STATUS: COMPLETED unable to be located in ER waiting room. Attempted to call phone x2 without response. /es/ MELLO CANNON RESIDENT PHYSICIAN Signed: 03/21/2024 17:53 /nataliia/ RISHI MONTANO MD EMERGENCY MEDICINE Cosigned: 03/21/2024 18:53 03/21/2024 ADDENDUM STATUS: COMPLETED I have personally seen and examined this patient. I have fully participated in the care of this patient and have reviewed and agree with all pertinent clinical information, including the nursing notes, medical history, vital signs, physical examination, labs, radiographic studies, the clinical management plan and disposition. I have also reviewed and agree with nursing notes, medications, allergies and past medical history including the review of systems sections for this patient. I was physically present for hill elements of any invasive procedures performed. I have reviewed the patient's medication list with the patient and/or his/her care-radiologic tech. Any medication discrepancies have been resolved. Patient will be provided with an updated list of his/her medication(s). Active Outpatient Medications (including Supplies): Active Outpatient Medications Status 1) ALBUTEROL 90MCG (CFC-F) 200D ORAL INHL INHALE 2 PUFFS ACTIVE ORAL INHALATION FOUR TIMES A DAY NEEDED FOR ASTHMA SHAKE WELL. RINSE MOUTHPIECE FREQUENTLY TO PREVENT CLOGGING. 2) AMOXICILLIN 875/CLAV K 125MG TAB TAKE 1 TABLET BY ACTIVE MOUTH TWICE A DAY TAKE WITH FOOD. TAKE UNTIL GONE UNLESS OTHERWISE DIRECTED. 3) BENZONATATE 200MG CAP TAKE ONE CAPSULE BY MOUTH THREE ACTIVE TIMES A DAY NEEDED FOR COUGH 4) DICLOFENAC NA 50MG EC TAB TAKE ONE TABLET BY MOUTH ACTIVE EVERY MORNING AND EVENING FOR PAIN - TAKE WITH FOOD 5) PANTOPRAZOLE NA 40MG EC TAB TAKE ONE TABLET BY MOUTH ACTIVE EVERY MORNING BEFORE A MEAL FOR GASTROESOPHAGEAL REFLUX DISEASE TAKE 30 MINUTES BEFORE MEAL(S) 6) TRAZODONE HCL 100MG TAB TAKE ONE-HALF TABLET BY MOUTH ACTIVE AT BEDTIME FOR SLEEP Patient reports cough since April when he had Covid. He has been seen by pulmonology and most recently had a workup in the ED on 03/05 including CTA chest for pleuritic CP. He reports persistent cough and now he is having right sided pleuritic CP. He was tachycardic in triage and is slightly tachycardic, exam. EKG ordered and I discussed my plan for an EKG, IV fluids, Toradol and reassessment. Apparently he left after the evaluation prior to getting an EKG or fluids. Resident reports his HR was 75 on her most recent assessment. /es/ RISHI MONTANO MD EMERGENCY MEDICINE Signed: 03/21/2024 18:56 MELLO CANNON [facility] Mar 21, 2024 12:19 PM EMERGENCY DEPT TRI AGE NOTE: LOCAL TITLE: EMERGENCY DEPARTMENT TRIAGE NOTE STANDARD TITLE: EMERGENCY DEPT TRIAGE NOTE DATE OF NOTE: MAR 21, 2024@12:19 ENTRY DATE: MAR 21, 2024@12:19:44 AUTHOR: PAOLO KEITH EXP COSIGNER: URGENCY: STATUS: COMPLETED EMERGENCY DEPARTMENT TRIAGE NOTE Has ADDENDA Emergency Department/Urgent Care Center Triage Patient age:39 Sex in chart: MALE Mode of Arrival: Self Mode of Mobility: * Walk Chief Complaint: SOB, cough assisted living manager Note (Subjective/Objective): Patient states he was here on 03/05 for similar symptoms, at the time had pain to L ribs which has now moved to R side. Patient states he was dx with pna and has continued SOB, cough, pain. Patient denies ever having improved symptoms with abx. Patient speaking in clear, full sentences, respirations even and unlabored. Level of Consciousness (AVPU): Alert = Appears aware of and responsive to the environment on their own. Follows commands, opens eyes spontaneously, and tracks objects. Vital Signs: Temperature 99 F (37.2 C) Pulse 128 Respirations 20 Blood Pressure 135/83 Pulse Oximetry 100 Room Air National Early Warning Score (NEWS): The NEWS total is 2. 1. Temperature (C/F): Score = 0 36.1 - 38.0 C (96.9 - 100.4 F) 2. Pulse: Score = 2 111-130 3. Respirations: Score = 0 12-20 4. Blood Pressure (Only Systolic BP, mmHg): Score = 0 111-219 5. Pulse Oximetry: Score = 0 96% or greater 6. Supplemental oxygen in use: Score = 0 No 7. AVPU: Score = 0 Alert Pain: DVPRS Scale Location: [facility] Pain Rating Scale (DVPRS): Pain Score: 6 Patient's acceptable pain goal: Suicide Screen: [place] Suicide Severity Rating Scale (C-SSRS) screener 1. [...] substance 8) Allergic rhinitis 9) Insomnia /es/ PAOLO KEITH RN REGISTERED NURSE Signed: 03/21/2024 12:22 03/21/2024 ADDENDUM STATUS: COMPLETED 1633 Pt to this RN's triage and verbalized need to leave ED. pt encouraged to remained in ED for medical treatments and risk of LWOT explained. pt verbalized understanding, but continued to verbalize need to leave ED. pt appeared awake, alert, oriented x 4 and cognizant. no distress noted. pal 20g dc'd from pt's LAC. tolerated well. site was without redness or signs of infection. /nataliia/ SONIA WARNER REPTILE KEEPER REGISTERED NURSE Signed: 03/21/2024 16:35 PAOLO KEITH [facility]
--- OUTSIDE RECORDS SUMMARY | 2024-04-10 06:56 | XMS_ITS | Encounter Summary ---
Author Name [facility] [place] [facility] [place] Address [address] [place] [address] Care Team Providers Care Meteorological Observer Name Role Phone KODAK MORTON Primary Care [...] CHOIC E PREFE RR Apr 13, 2020 [id number] [phone] BOOGIE BAILEY ANDON PATIENT ANTHEM [employer] [place] PREFERRED PROVIDER ORGANIZAT ION (PPO) BLUE CHOIC E PREFE RR Apr 13, 2020 [id number] [phone] BOOGIE BAILEY ANDON PATIENT ANTHE[place] [employer] [place] PREFERRED PROVIDER ORGANIZAT ION (PPO) BLUE CHOIC E PREFE RR Apr 13, 2020 [id number] [phone] BOOGIE BAILEY ANDCARLA PATIENT [employer] [place] PREFERRED PROVIDER ORGANIZAT ION (PPO) BLUE CHOIC E PREFE RR Apr 13, 2020 [id number] [phone] BOOGIE BAILEY PATIENT PRIME THERAPEUTI CS RX PRESCRIPT ION BCBSI L [place] Apr 13, 2020 BCBSIL [id number] [phone] [facility] 2018 TRICA RE May 10, 2019 SELECT [id number] BOOGIE BAILEY PATIENT Selected Encounter This section includes the information on record at [place] for the Encounter. Date/Time Encounter Type Encounter Description Reason Provider Source Mar 16, 2024 02:57 PM Outpatient Encounter PRIMARY CARE/MEDICINE NOELLE FLORES [...] 20 appointments. The data comes from all [facility] facilities. Appointment Date/Time Appointment Type Appointme nt Facility Name Mar 21, 2024 12:14 PM AMBULATORY - MEDICINE [facility] Apr 01, 2024 10:00 AM AMBULATORY - PSYCHIATRY [facility] Apr 18, 2024 11:00 AM AMBULATORY - PSYCHIATRY [facility] Apr 28, 2024 03:00 PM AMBULATORY - MEDICINE [facility] May 05, 2024 11:30 AM AMBULATORY - MEDICINE [facility] May 27, 2024 11:00 AM AMBULATORY - MEDICINE [facility] Active, Pending, and Scheduled Orders This section includes a listing of several types of active, pending, and scheduled orders, including clinic medications orders, diagnostic test orders, procedure orders and consult orders; where the start date of the order is 45 days before the date of the Encounter or 45 days after the date of theEncounter. The data comes from all [facility]. Test Date/Time Test Type Test Details Facility Name Mar 16, 2024 10:22 AM Consult Order [facility] PLASTIC SURG Cons School Principal's Choice [facility] Mar 21, 2024 03:48 PM Procedure Order CP EKG STL CP EKG - STL Proc School Principal's Choice [facility] Lab Results: +/- 30 days of [...] Mar 21, 2024 12:23 PM Reporting Lab: [address] [address] Performing Lab: [address] [address] CREATININE 1.00 mg/dL 0.7-1.3 UREA NITROGEN 18.1 [...] [facility] [address] [facility] [address] Performing Lab: [address] [address] WBC 7.2 10*3/uL 3.6-11.2 RBC 4.24 10*6/uL [...] 05, 2024 11:04 AM Reporting Lab: [address] [address] Performing Lab: [address] [address] TROPONIN I <0.010 ng/mL 0-0.033 Mar 05, 2024 09:50 AM [facility] RESPIRATORY PCR PANEL Specimen Type: NASOPHARYNX Comment: The [employer] RP Panel combines nested multiplex PCR and [...] the clinician evaluating the patient. Claudio GREEN, (485) Ordering Provider: MUKESH MARINELLI Report Released Date/Time: Mar 05, 2024 09:39 AM Reporting Lab: [facility] [address] [place] [address] Performing Lab: [address] [address] *Adenovirus (BF) Not Detected Not Detected *Coronavirus [...] 05, 2024 08:52 AM Reporting Lab: [facility] [address] [place] [address] Performing Lab: [address] [address] WBC 7.1 10*3/uL 3.6-11.2 RBC 4.84 10*6/uL [...] Mar 05, 2024 08:52 AM Reporting Lab: [address] [address] Performing Lab: [address] [address] TROPONIN I 0.013 ng/mL 0-0.033 Mar 05, 2024 09:00 AM [facility] TSH (MA-PB) Specimen Type: SERUM No comment entered. Ordering Provider: MUKESH MARINELLI Report Released Date/Time: Mar 05, 2024 09:39 AM Reporting Lab: [address] [address] Performing Lab: [address] [address] TSH 0.283 u[IU]/mL L 0.47-5 FREE T4(REFLEX) 1.10 ng/mL 0.7-1.48 Mar 05, 2024 09:00 AM [facility] BRAIN NATRIURETIC PEPTIDE Specimen Type: PLASMA No comment entered. Ordering Provider: MUKESH MARINELLI Report Released Date/Time: Mar 05, 2024 09:39 AM Reporting Lab: [facility] [address] [facility] [address] Performing Lab: [facility] [address] [facility] [address] BRAIN NATRIURETIC PEPTIDE 16.2 pg/mL 0-100 Mar 05, 2024 09:00 AM [facility] COMPREHENSIVE METABOLIC PANEL Specimen Type: PLASMA Comment: No hemolysis noted. Ordering Provider: MUKESH MARINELLI Report Released Date/Time: Mar 05, 2024 08:52 AM Reporting Lab: [facility] [address] [facility] [address] Performing Lab: [facility] [address] [facility] [address] CREATININE 0.92 mg/dL 0.7-1.3 UREA NITROGEN 15.6 [...] 101/66 20 98 6 71 195.5 27 [facility] N Social History: Smoking [...] USED [facility] Radiology Reports: +/- 30 [...] PM CHEST X-RAY, 2 VIEWS: JORDYN BAILEY [id number] -1985 M Exm Date: MAR 21, 2024@12:34 Req Phys: SUSAN BROWN Loc: -EMERGENCY DEPT 2ND SHIFT (R Img Loc: -MAIN RADIOLOGY SUITE Service: [address] [address] (Case [id number] COMPLETE) CHEST X-RAY, 2 VIEWS (RAD Detailed) CPT:69332 Reason for Study: cough, SOB Clinical History: Report Status: Verified Date Reported: MAR 21, 2024 Date Verified: MAR 21, 2024 Greige Mender E-Sig:/ES/Lynn Castro MD Report: CHEST X-RAY, 2 VIEWS CASE #: [id number] DATE:03/21/2024 12:39 PM CLINICAL HISTORY:cough, SOB COMPARISON: 03/05/2024, 05/20/2023, 05/28/2022 TECHNIQUE: CHEST X-RAY, 2 VIEWS Impression: FINDINGS/IMPRESSION: Low lung volumes. Top normal heart size. No CHF. Bibasilar atelectasis versus pneumonia. Correlate clinically. No pleural effusion. No pneumothorax. Primary Interpreting Staff: Lynn Castro MD, Radiologist (Greige Mender) /LYNN ONEILL [facility] Mar 05, 2024 10:[address] PE CHEST W/3D: JORDYN BAILEY [id number] -1985 M Exm Date: MAR 05, 2024@10:00 Req Phys: MUKESH MARINELLI Loc: [facility]-EMERGENCY DEPT 2ND SHIFT (R Img Loc: [facility]-CT IMAGING [facility] Service: Unknown [facility] [address] [place] [address] (Case [id number] COMPLETE) CT THORAX W/CONT (PE) (CT Detailed) CPT:99712 Contrast Media : unspecified contrast media Reason [...] 05, 2024 Date Verified: MAR 05, 2024 Greige Mender E-Sig: Report: CT THORAX W/CONT (PE) [PRINTSET] [...] excluded. 3. Cardiomegaly. READING PHYSICIAN: Wilfred Roberts -[phone] 03/05/2024 7:32 [facility] [phone] (For Medical Practitioner Use Only) Attention Patients / Veterans: If you have questions or concerns about these test results, please contact your ordering provider or primary care team. Primary Interpreting Staff: RADIOLOGY,OUTSIDE SERVICE, Staff Physician / RADIOLOGY,OUTSIDE SERVICE [facility] Mar 05, 2024 08:59 AM CHEST PORTABLE: JORDYN BAILEY [id number] -1985 M Exm Date: MAR 05, 2024@08:59 Req Phys: MUKESH MARINELLI Loc: [facility]-EMERGENCY DEPT 2ND SHIFT (R Img Loc: -MAIN RADIOLOGY SUITE Service: [facility], [address] [address] (Case [id number] COMPLETE) CHEST PORTABLE (RAD Detailed) CPT:62808 Proc Modifiers : Portable Reason for Study: chest pain Clinical History: Report Status: Verified Date Reported: MAR 05, 2024 Date Verified: MAR 05, 2024 Greige Mender E-Sig: Report: CHEST PORTABLE Comparison: 05/20/2023, 02/12/2024 Clinical History: chest pain The study was performed and supervised at the local [place] facility, and subsequently transmitted to [facility] NTP ([facility] T[facility]adiology Program) for interpretation. Impression: Lungs: Small left effusion with left basilar opacity which may represent atelectasis or consolidation.. Cardiomediastinal silhouette: No enlargement of the cardiomediastinal silhouette. Bones and soft tissues: No acute finding. READING PHYSICIAN: Sandeep Kraft M.D. -[phone] 03/05/2024 7:29 PST [facility] National Teleradiology Program [phone] (For Medical Practitioner Use Only) Attention Patients / Veterans: If you have questions or concerns about these test results, please contact your ordering provider or primary care team. Primary Interpreting Staff: RADIOLOGY,OUTSIDE SERVICE, Staff Physician / RADIOLOGY,OUTSIDE SERVICE [facility] Encounter Notes: All associated encounter notes This section contains the clinical notes associated to the Encounter. Date/Time Encounter Note(s) Provider Source Mar 16, 2024 04:30 PM ADDENDUM: LOCAL TITLE: Addendum STANDARD TITLE: ADDENDUM DATE OF NOTE: MAR 16, 2024@16:30:58 ENTRY DATE: MAR 16, 2024@16:30:58 AUTHOR: KODAK MORTON EXP COSIGNER: URGENCY: STATUS: COMPLETED Please advise him that ordered benzonatate 200 mg capsule 3 times a day as needed for cough Also review of chart noted pulmonary (lung doctor prescribed him Wixela inhaler which was DC'd January 14, 2024 visit. To continue albuterol inhaler as needed For possible Post-viral cough with possible reactive airway dz: --He also should call and follow-up with pulm clinic /nataliia/ Kodak Morton MD Staff Physician Signed: 03/16/2024 16:34 Receipt Acknowledged By: 03/17/2024 09:15 /es/ NOELLE MAGALLANESN RN REGISTERED NURSE ====== --- Original Document --- 03/16/24 PRIMARY CARE SECURE MESSAGING: ------Original Message ------- Sent: 03/16/2024 10:17 AM ET From: JORDYN BAILEY To: , 8_SELENE M_Primary [facility], [place] Subject: General:Pneumonia cough Dr Morton, My cough is back and I think this is caused from me being diagnosed with pneumonia 2 weekends ago. I took the amoxicillin as directed by the ER doctor. Can you prescribe me something for my congestion and cough? /es/ NOELLE JIMENEZ RN REGISTERED NURSE Signed: 03/16/2024 13:57 Receipt Acknowledged By: 03/16/2024 16:34 /luis Morton MD Staff Physician KODAK MORTON [facility] Mar 16, 2024 02:57 PM PRIMARY CARE MISTY E MESSAGING: LOCAL TITLE: PRIMARY CARE SECURE MESSAGING STANDARD TITLE: PRIMARY CARE SECURE MESSAGING DATE OF NOTE: MAR 16, 2024@14:57 ENTRY DATE: MAR 16, 2024@13:57:51 AUTHOR: NOELLE FLORES EXP COSIGNER: URGENCY: STATUS: COMPLETED PRIMARY CARE SECURE MESSAGING Has ADDENDA ------Original Message ------- Sent: 03/16/2024 10:17 AM ET From: JORDYN BAILEY To: [facility], 8_SELENE, M_Primary Care, [place] Subject: General:Pneumonia cough Dr Morton, My cough is back and I think this is caused from me being diagnosed with pneumonia 2 weekends ago. I took the amoxicillin as directed by the ER doctor. Can you prescribe me something for my congestion and cough? /nataliia/ NOELLE JIMENEZ RN REGISTERED NURSE Signed: 03/16/2024 13:57 Receipt Acknowledged By: 03/16/2024 16:34 /luis Morton MD Staff Physician 03/16/2024 ADDENDUM STATUS: COMPLETED Please advise him that ordered benzonatate 200 mg capsule 3 times a day as needed for cough Also review of chart noted pulmonary (lung doctor prescribed him Wixela inhaler which was DC'd January 14, 2024 visit. To continue albuterol inhaler as needed For possible Post-viral cough with possible reactive airway dz: --He also should call and follow-up with pulm clinic /luis Morton MD Staff Physician Signed: 03/16/2024 16:34 Receipt Acknowledged By: * AWAITING SIGNATURE * NOELLE FLORES RICHELLE D [facility]
--- OUTSIDE RECORDS SUMMARY | 2024-04-10 06:56 | XMS_ITS | Encounter Summary ---
Author Name [facility] [facility] [place] Address [address] [place] [address] Care Team Providers Care Electrical Laboratory Technician Name Role Phone KODAK MORTON Primary [...] CHOIC E PREFE RR Apr 13, 2020 [id number] [phone] BOOGIE BAILEY ANDON PATIENT ANTHEM [employer] [place] PREFERRED PROVIDER ORGANIZAT ION (PPO) BLUE CHOIC E PREFE RR Apr 13, 2020 [id number] [phone] BOOGIE BAILEY ANDON PATIENT ANTHEM [employer] [place] PREFERRED PROVIDER ORGANIZAT ION (PPO) BLUE CHOIC E PREFE RR Apr 13, 2020 [id number] [phone] BOOGIE BAILEY ANDCARLA PATIENT [employer] [place] PREFERRED PROVIDER ORGANIZAT ION (PPO) BLUE CHOIC E PREFE RR Apr 13, 2020 [id number] [phone] BOOGIE BAILEY PATIENT PRIME THERAPEUTI CS RX PRESCRIPT ION [employer]BS[employer] L [place] Apr 13, 2020 [id number] [phone] BOOGIE BAILEY PATIENT [facility] 2018 TRICA RE May 10, 2019 SELECT [id number] BOOGIE BAILEY PATIENT Selected Encounter This section includes the information on record at [place] for the Encounter. Date/Time Encounter Type Encounter Description Reason Provider Source Mar 05, 2024 12:55 PM Outpatient Encounter EVENT (HISTORICAL) MUKESH MARINELLI E Encounter Template Text not used by [place] [...] 20 appointments. The data comes from all [facility]. Appointment Date/Time Appointment Type Appointme nt Facility Name Mar 16, 2024 10:15 AM AMBULATORY - SURGERY [facility] Mar 21, 2024 12:14 PM AMBULATORY - MEDICINE [facility] Apr 01, 2024 10:00 AM AMBULATORY - PSYCHIATRY [facility] Apr 18, 2024 11:00 AM AMBULATORY - PSYCHIATRY [facility] Apr 28, 2024 03:00 PM AMBULATORY - MEDICINE [facility] May 05, 2024 11:30 AM AMBULATORY - MEDICINE [facility] May 27, 2024 11:00 AM AMBULATORY - MEDICINE [facility] Active, Pending, and Scheduled Orders This section includes a listing of several types of active, pending, and scheduled orders, including clinic medications orders, diagnostic test orders, procedure orders and consult orders; where the start date of the order is 45 days before the date of the Encounter or 45 days after the date of theEncounter. The data comes from all [facility]. Test Date/Time Test Type Test Details Facility Name Jan 26, 2024 02:11 PM Consult Order RHEUMATOLO GY OUTPATIENT STL Cons Envelope Adjuster's Choice [facility] Mar 16, 2024 10:22 AM Consult Order [facility] PLASTIC SURG Cons Envelope Adjuster's [facility] Mar 21, 2024 03:48 PM Procedure Order CP EKG STL CP EKG - STL [facility] Results: +/- 30 days of the [...] Range Comment Mar 21, 2024 12:30 PM [facility] COMPREHENSIVE METABOLIC PANEL Specimen Type: PLASMA Comment: No hemolysis noted. Ordering Provider: SUSAN BROWN Report Released Date/Time: Mar 21, 2024 12:23 PM Reporting Lab: [address] [address] Performing Lab: [address] [address] CREATININE 1.00 mg/dL 0.7-1.3 UREA NITROGEN 18.1 [...] 98.2 >60 Mar 21, 2024 12:30 PM [facility] CBC Specimen Type: BLOOD No comment entered. Ordering Provider: SUSAN BROWN Report Released Date/Time: Mar 21, 2024 12:23 PM Reporting Lab: [address] [address] Performing Lab: [facility] [address] [facility] [address] WBC 7.2 10*3/uL 3.6-11.2 RBC 4.24 10*6/uL [...] 10*3/uL 0.00-0.20 Mar 05, 2024 11:10 AM [facility] TROPONIN I Specimen Type: PLASMA No comment entered. Ordering Provider: MUKESH MARINELLI Report Released Date/Time: Mar 05, 2024 11:04 AM Reporting Lab: [place] [address] [address] [facility] [address] Performing Lab: [address] [address] TROPONIN I <0.010 ng/mL 0-0.033 Mar 05, 2024 09:50 AM [facility] RESPIRATORY PCR PANEL Specimen Type: NASOPHARYNX [...] the clinician evaluating the patient. Claudio GREEN, ([phone]) Ordering Provider: MUKESH MARINELLI Report Released Date/Time: Mar 05, 2024 09:39 AM Reporting Lab: [facility] [address] [place] [address] Performing Lab: [address] [address] *Adenovirus (BF) Not Detected Not Detected *Coronavirus [...] Not Detected Mar 05, 2024 09:00 AM [facility] CBC Specimen Type: BLOOD No comment entered. Ordering Provider: MUKESH MARIENLLI Report Released Date/Time: Mar 05, 2024 08:52 AM Reporting Lab: [facility] [address] [facility] [address] Performing Lab: [address] [address] WBC 7.1 10*3/uL 3.6-11.2 RBC 4.84 10*6/uL [...] 10*3/uL 0.00-0.20 Mar 05, 2024 09:00 AM [facility] TROPONIN I Specimen Type: PLASMA Comment: No hemolysis noted. Ordering Provider: MUKESH MARINELLI Report Released Date/Time: Mar 05, 2024 08:52 AM Reporting Lab: [place] [id number] Performing Lab: [address] [address] TROPONIN I 0.013 ng/mL 0-0.033 Mar 05, 2024 09:00 AM [facility] TSH (MA-PB) Specimen Type: SERUM No comment entered. Ordering Provider: MUKESH MARINELLI Report Released Date/Time: Mar 05, 2024 09:39 AM Reporting Lab: [place] [id number] Performing Lab: [address] [address] TSH 0.283 u[IU]/mL L 0.47-5 FREE T4(REFLEX) 1.10 ng/mL 0.7-1.48 Mar 05, 2024 09:00 AM [facility] COMPREHENSIVE METABOLIC PANEL Specimen Type: PLASMA Comment: No hemolysis noted. Ordering Provider: MUKESH MARINELLI Report Released Date/Time: Mar 05, 2024 08:52 AM Reporting Lab: [address] [address] Performing Lab: [address] [address] CREATININE 0.92 mg/dL 0.7-1.3 UREA NITROGEN 15.6 [...] 108.5 >60 Mar 05, 2024 09:00 AM [facility] BRAIN NATRIURETIC PEPTIDE Specimen Type: PLASMA No comment entered. Ordering Provider: MUKESH MARINELLI Report Released Date/Time: Mar 05, 2024 09:39 AM Reporting Lab: [address] [address] Performing Lab: [address] [address] BRAIN NATRIURETIC PEPTIDE 16.2 pg/mL 0-100 Vital Signs: All taken on the encounter date This section contains inpatient and outpatient Vital Signs collected on the date of the Encounter. Date/Time Temperature Pulse Blood Pressure Respiratory Rate SP02 Pain Height Weight Body Mass Index Source Mar 05, 2024 11:45 AM 88 116/84 2 [facility] Mar 05, 2024 09:40 AM 98.6 [facility] Mar 05, 2024 08:48 AM 98 136 134/82 18 3 [facility] Social History: Smoking Status [...] 26, 2021 03:59 PM VA-TOBACCO NEVER USED [facility] Radiology Reports: +/- 30 days [...] the Encounter. The data comes from all [place] treatment facilities. Date/Time Radiology Report Provider Source Mar 21, 2024 12:34 PM CHEST X-RAY, 2 VIEWS: JORDYN BAILEY [id number] -1985 M Exm Date: MAR 21, 2024@12:34 Req Phys: SUSAN BROWN Loc: -EMERGENCY DEPT 2ND SHIFT (R Img Loc: -MAIN RADIOLOGY SUITE Service: [address] [address] (Case [id number] COMPLETE) CHEST X-RAY, 2 VIEWS (RAD Detailed) CPT:30713 Reason for Study: cough, SOB Clinical History: Report Status: Verified Date Reported: MAR 21, 2024 Date Verified: MAR 21, 2024 Circus Agent E-Sig:/ES/Lynn Castro MD Report: CHEST X-RAY, 2 VIEWS CASE #: [id number] DATE:03/21/2024 12:39 PM CLINICAL HISTORY:cough, SOB COMPARISON: 03/05/2024, 05/20/2023, 05/28/2022 TECHNIQUE: CHEST X-RAY, 2 VIEWS Impression: FINDINGS/IMPRESSION: Low lung volumes. Top normal heart size. No CHF. Bibasilar atelectasis versus pneumonia. Correlate clinically. No pleural effusion. No pneumothorax. Primary Interpreting Staff: Lynn Castro MD, Radiologist (Circus Agent) /LYNN ONEILL [facility] Mar 05, 2024 10:[address] PE CHEST W/3D: JORDYN BAILEY [id number] -1985 M Exm Date: MAR 05, 2024@10:00 Req Phys: MUKESH MARINELLI Loc: [facility]-EMERGENCY DEPT 2ND SHIFT (R Img Loc: [facility]-CT IMAGING [facility] Service: Unknown [facility] [address] [place] [address] (Case [id number] COMPLETE) CT THORAX W/CONT (PE) (CT Detailed) CPT:48766 Contrast Media : unspecified contrast media Reason [...] 05, 2024 Date Verified: MAR 05, 2024 Circus Agent E-Sig: Report: CT THORAX W/CONT (PE) [PRINTSET] HISTORY: chest pain, tachycardia COMPARISON: 02/12/2024 TECHNIQUE: Helical CT of the chest, with multiplanar reformats including maximum intensity projection (MIP) reconstructions, was performed at the local [place] facility. 1529 images were received by the [place] National [facility] (NTP) for interpretation. RADIATION [...] excluded. 3. Cardiomegaly. READING PHYSICIAN: Wilfred Roberts -[phone] 03/05/2024 7:32 [facility] National Teleradiology Program [phone] (For Medical Practitioner Use Only) Attention Patients / Veterans: If you have questions or concerns about these test results, please contact your ordering provider or primary care team. Primary Interpreting Staff: RADIOLOGY,OUTSIDE SERVICE, Staff Physician / RADIOLOGY,OUTSIDE SERVICE [facility] Mar 05, 2024 08:59 AM CHEST PORTABLE: JORDYN BAILEY [id number] -1985 M Exm Date: MAR 05, 2024@08:59 Req Phys: MUKESH MARINELLI Loc: [facility]-EMERGENCY DEPT 2ND SHIFT (R Img Loc: -MAIN RADIOLOGY SUITE Service: [facility], [facility] [address] [place] [address] (Case [id number] COMPLETE) CHEST PORTABLE (RAD Detailed) CPT:43330 Proc Modifiers : Portable Reason for Study: chest pain Clinical History: Report Status: Verified Date Reported: MAR 05, 2024 Date Verified: MAR 05, 2024 Circus Agent E-Sig: Report: CHEST PORTABLE Comparison: 05/20/2023, 02/12/2024 Clinical History: chest pain The study was performed and supervised at the local [place] facility, and subsequently transmitted to [facility] NTP (National Teleradiology Program) for interpretation. Impression: Lungs: Small left effusion with left basilar opacity which may represent atelectasis or consolidation.. Cardiomediastinal silhouette: No enlargement of the cardiomediastinal silhouette. Bones and soft tissues: No acute finding. READING PHYSICIAN: Sandeep Kraft M.D. -[id number] 03/05/2024 7:29 PST [facility] National Teleradiology Program [phone] (For Medical Practitioner Use Only) Attention Patients / Veterans: If you have questions or concerns about these test results, please contact your ordering provider or primary care team. Primary Interpreting Staff: RADIOLOGY,OUTSIDE SERVICE, Staff Physician / RADIOLOGY,OUTSIDE SERVICE [facility] Feb 12, 2024 02:[address] THORAX W/O CONT HIGH RES: JORDYN BAILEY [id number] -1985 M Exm Date: FEB 12, 2024@14:18 Req Phys: FLOYD WOO Loc: [facility]-PULM GURINDER 1 (Req'g Loc) Img Loc: [facility] IMAG[facility] Service: Unknown [facility], [facility] [address] [place] [address] (Case [id number] COMPLETE) CT THORAX W/O CONT HIGH RES (CT Detailed) CPT:92264 Reason for Study: chronic cough, exertional dyspnea, + hazardous exposure hx Clinical History: Responsible Attending: floyd woo PA-C Attending Contact Number: [phone] Resident Contact Number: Allergies listed in CPRS chart: SHELLFISH Creatinine: CREATININE 0.95 mg/dL 11/25/2023 11:00 /eGFR: STL EGFR (within one year). CREATININE 0.95 mg/dL (11/25/23 11:00) Wt: 218.3 lb [99.02 kg] (01/14/2024 08:55) History of: Renal failure, chronic or acute renal disease: NO Report Status: Verified Date Reported: FEB 15, 2024 Date Verified: FEB 15, 2024 Circus Agent E-Sig:/ES/Lynn Castro MD Report: CASE #: [id number] DATE:02/12/2024 4:23 PM CLINICAL HISTORY:chronic cough, exertional [...] Primary Interpreting Staff: Lynn Castro MD, Radiologist (Circus Agent) /LYNN ONEILL [facility]
--- OUTSIDE RECORDS SUMMARY | 2024-04-10 06:56 | XMS_ITS ---
Author Name [facility] [facility] [place] [facility] [place] Address [address] [place] [address] Care Team Providers Care Income Tax Expert Name Role Phone KODAK MORTON Primary Care [...] CHOIC E PREFE RR Apr 13, 2020 [id number] [phone] BOOGIE PINEDA ANDON PATIENT ANTHE[place] [employer] [place] PREFERRED PROVIDER ORGANIZAT ION (PPO) BLUE CHOIC E PREFE RR Apr 13, 2020 [id number] [phone] BOOGIE PINEDA ANDON PATIENT ANTHE[place] [employer] [place] PREFERRED PROVIDER ORGANIZAT ION (PPO) BLUE CHOIC E PREFE RR Apr 13, 2020 [id number] [phone] BOOGIE PINEDA ANDON PATIENT [employer] [place] PREFERRED PROVIDER ORGANIZAT ION (PPO) BLUE CHOIC E PREFE RR Apr 13, 2020 [id number] [phone] BOOGIE PINEDA PATIENT PRIME THERAPEUTI CS RX PRESCRIPT ION [employer]BS[employer] L [place] Apr 13, 2020 [id number] [phone] BOOGIE PINEDA PATIENT [facility] 2018 TRICA RE May 10, 2019 SELECT [id number] BOOGIE PINEDA PATIENT Selected Encounter This section includes the information on record at [place] for the Encounter. Date/Time Encounter Type Encounter Description Reason Provider Source Mar 14, 2024 06:26 PM OFF/OP CNSLTJ NEW/EST LOW 30 PLASTIC SURGERY ICD-10-CM G56.03 Carpal tunnel syndrome, bilateral upper limbs PREVEL,ARPAN PHER D IHE Encounter Template Text not used by [place] Assessments - Encounter Diagnoses This section includes the primary and secondary diagnoses documented for the Encounter. Date/Time Primary/Secondary Diagnosis Diagnosis Name Provider Source Mar 20, 2024 03:08 PM PRIMARY Carpal tunnel syndrome, bilateral upper limbs PREVEL,ARPAN PHER D [facility] Mar 20, 2024 03:08 PM SECONDARY Abnormal results of liver function studies PREVEL,ARPAN PHER D [facility] Mar 20, 2024 03:08 PM SECONDARY Low back pain, unspecified PREVEL,ARPAN PHER D [facility] Mar 20, 2024 03:08 PM SECONDARY Major depressive disorder, recurrent, moderate PREVEL,ARPAN PHER D [facility] Mar 20, 2024 03:08 PM SECONDARY Post-traumatic stress disorder, unspecified PREVEL,ARPAN PHER D [facility] Plan of Treatment: Future Appointments (+ 6 months) and Future Tests (+/- 45 days) The Plan of Treatment section includes future care activities for the patient from all [place] [facility]. This section includes future appointments and future orders which are active, pending or scheduled. Future Appointments This section includes appointments that were scheduled to occur 6 months from the date of the Encounter, up to a maximum of 20 appointments. The data comes from all [place] treatment [facility]. Appointment Date/Time Appointment Type Appointme nt Facility Name Mar 16, 2024 10:15 AM AMBULATORY - SURGERY [facility] Mar 21, 2024 12:14 PM AMBULATORY - MEDICINE [facility] Apr 01, 2024 10:00 AM AMBULATORY - PSYCHIATRY [facility] Apr 18, 2024 11:00 AM AMBULATORY - PSYCHIATRY [facility] Apr 28, 2024 03:00 PM AMBULATORY - MEDICINE [facility] May 05, 2024 11:30 AM AMBULATORY - MEDICINE [facility] May 27, 2024 11:00 AM AMBULATORY - MEDICINE [facility] Active, Pending, and Scheduled Orders This section includes a listing of several types of active, pending, and scheduled orders, including clinic medications orders, diagnostic test orders, procedure orders and consult orders; where the start date of the order is 45 days before the date of the Encounter or 45 days after the date of theEncounter. The data comes from all [place] treatment facilities. Test Date/Time Test Type Test Details Facility Name Mar 16, 2024 10:22 AM Consult Order [facility] PLASTIC SURG Cons [facility] Mar 21, 2024 03:48 PM Procedure Order CP EKG STL CP EKG - STL [facility] Results: +/- 30 days of [...] Comment Mar 21, 2024 12:30 PM [facility] CBC Specimen Type: BLOOD No comment entered. Ordering Provider: SUSAN BROWN Report Released Date/Time: Mar 21, 2024 12:23 PM Reporting Lab: [facility] [address] [address] Performing Lab: [facility] [address] [facility] [address] WBC 7.2 10*3/uL 3.6-11.2 RBC 4.24 10*6/uL [...] 0.00-0.60 BASOPHILS, ABSOLUTE 0.01 10*3/uL 0.00-0.20 Mar 21, 2024 12:30 PM [facility] COMPREHENSIVE METABOLIC PANEL Specimen Type: PLASMA Comment: No hemolysis noted. Ordering Provider: SUSAN BROWN Report Released Date/Time: Mar 21, 2024 12:23 PM Reporting Lab: [facility] [address] [facility] [address] Performing Lab: [address] [address] CREATININE 1.00 mg/dL 0.7-1.3 UREA NITROGEN 18.1 [...] 8-40 EGFR (CKD-EPI 2020) 98.2 >60 Mar 05, 2024 11:10 AM [facility] TROPONIN I Specimen Type: PLASMA No comment entered. Ordering Provider: MUKESH MARINELLI Report Released Date/Time: Mar 05, 2024 11:04 AM Reporting Lab: [facility] [address] [place] [address] Performing Lab: [address] [address] TROPONIN I <0.010 ng/mL 0-0.033 Mar 05, 2024 09:50 AM [facility] RESPIRATORY PCR PANEL Specimen Type: NASOPHARYNX Comment: The Finsphere RP Panel combines nested multiplex PCR and [...] available to the clinician evaluating the patient. [email or web address] [facility], (872) Ordering Provider: MUKESH MARINELLI Report Released Date/Time: Mar 05, 2024 09:39 AM Reporting Lab: [address] [address] Performing Lab: [address] [address] *Adenovirus (BF) Not Detected Not Detected *Coronavirus [...] Mar 05, 2024 09:00 AM [facility] CBC Specimen Type: BLOOD No comment entered. Ordering Provider: MUKESH MARINELLI Report Released Date/Time: Mar 05, 2024 08:52 AM Reporting Lab: [address] [address] Performing Lab: [address] [address] WBC 7.1 10*3/uL 3.6-11.2 RBC 4.84 10*6/uL [...] Mar 05, 2024 09:00 AM [facility] TROPONIN I Specimen Type: PLASMA Comment: No hemolysis noted. Ordering Provider: MUKESH MARINELLI Report Released Date/Time: Mar 05, 2024 08:52 AM Reporting Lab: [address] [place] [address] Performing Lab: [address] [address] TROPONIN I 0.013 ng/mL 0-0.033 Mar 05, 2024 09:00 AM [facility] TSH (MA-PB) Specimen Type: SERUM No comment entered. Ordering Provider: MUKESH MARINELLI Report Released Date/Time: Mar 05, 2024 09:39 AM Reporting Lab: [address] [address] Performing Lab: [address] [address] TSH 0.283 u[IU]/mL L 0.47-5 FREE T4(REFLEX) 1.10 ng/mL 0.7-1.48 Mar 05, 2024 09:00 AM [facility] BRAIN NATRIURETIC PEPTIDE Specimen Type: PLASMA No comment entered. Ordering Provider: MUKESH MARINELLI Report Released Date/Time: Mar 05, 2024 09:39 AM Reporting Lab: [address] [address] Performing Lab: [address] [address] BRAIN NATRIURETIC PEPTIDE 16.2 pg/mL 0-100 Mar 05, 2024 09:00 AM [facility] COMPREHENSIVE METABOLIC PANEL Specimen Type: PLASMA Comment: No hemolysis noted. Ordering Provider: MUKESH MARINELLI Report Released Date/Time: Mar 05, 2024 08:52 AM Reporting Lab: [address] [address] Performing Lab: [address] [address] CREATININE 0.92 mg/dL 0.7-1.3 UREA NITROGEN 15.6 [...] 26, 2021 03:59 PM VA-TOBACCO NEVER USED [facility] Radiology Reports: +/- 30 days of [...] the Encounter. The data comes from all [place] treatment facilities. Date/Time Radiology Report Provider Source Mar 21, 2024 12:34 PM CHEST X-RAY, 2 VIEWS: JORDYN PINEDA [id number] -1985 M Exm Date: MAR 21, 2024@12:34 Req Phys: SUSAN BROWN Loc: [facility]-EMERGENCY DEPT 2ND SHIFT (R Img Loc: [facility]MAIN RADIOLOGY SUITE Service: [facility], [facility] [address] [place] [address] (Case [id number] COMPLETE) CHEST X-RAY, 2 VIEWS (RAD Detailed) CPT:52967 Reason for Study: cough, SOB Clinical History: Report Status: Verified Date Reported: MAR 21, 2024 Date Verified: MAR 21, 2024 Screen Machine Operator E-Sig:/ES/Lynn Castro MD Report: CHEST X-RAY, 2 VIEWS CASE #: [id number] DATE:03/21/2024 12:39 PM CLINICAL HISTORY:cough, SOB COMPARISON: 03/05/2024, 05/20/2023, 05/28/2022 TECHNIQUE: CHEST X-RAY, 2 VIEWS Impression: FINDINGS/IMPRESSION: Low lung volumes. Top normal heart size. No CHF. Bibasilar atelectasis versus pneumonia. Correlate clinically. No pleural effusion. No pneumothorax. Primary Interpreting Staff: Lynn Castro MD, Radiologist (Screen Machine Operator) /LYNN ONEILL [facility] Mar 05, 2024 10:[address] PE CHEST W/3D: LYNNJORDYNCARLA CRUZ [id number] -[id number] M Exm Date: MAR 05, 2024@10:00 Req Phys: MUKESH MARINELLI Loc: [facility]Y DEPT 2ND SHIFT (R Img Loc: [facility]-CT IMAGING [facility] Service: [address] [address] (Case [id number] COMPLETE) CT THORAX W/CONT (PE) (CT Detailed) CPT:31251 Contrast Media : unspecified contrast media Reason [...] 05, 2024 Date Verified: MAR 05, 2024 Screen Machine Operator E-Sig: Report: CT THORAX W/CONT (PE) [PRINTSET] HISTORY: chest pain, tachycardia COMPARISON: 02/12/2024 TECHNIQUE: Helical CT of the chest, with multiplanar reformats including maximum intensity projection (MIP) reconstructions, was performed at the local [place] facility. 1529 images were received by the [place] [facility] ([facility]) for interpretation. RADIATION [...] excluded. 3. Cardiomegaly. READING PHYSICIAN: Wilfred Roberts -[phone] 03/05/2024 7:32 [facility] National Teleradiology Program [phone] (For Medical Practitioner Use Only) Attention Patients / Veterans: If you have questions or concerns about these test results, please contact your ordering provider or primary care team. Primary Interpreting Staff: RADIOLOGY,OUTSIDE SERVICE, Staff Physician / RADIOLOGY,OUTSIDE SERVICE [facility] Mar 05, 2024 08:59 AM CHEST PORTABLE: JORDYN PINEDA [id number] -[id number] M Exm Date: MAR 05, 2024@08:59 Req Phys: MUKESH MARINELLI Loc: [facility]ERG[facility]Y DEPT 2ND SHIFT (R Img Loc: [facility]MAIN RADIOLOGY SUITE Service: [facility], [facility] [address] [place] [address] (Case [id number] COMPLETE) CHEST PORTABLE (RAD Detailed) CPT:97462 Proc Modifiers : Portable Reason for Study: chest pain Clinical History: Report Status: Verified Date Reported: MAR 05, 2024 Date Verified: MAR 05, 2024 Screen Machine Operator E-Sig: Report: CHEST PORTABLE Comparison: 05/20/2023, 02/12/2024 Clinical History: chest pain The study was performed and supervised at the local [place] facility, and subsequently transmitted to [facility] NTP (National Teleradiology Program) for interpretation. Impression: Lungs: Small left effusion with left basilar opacity which may represent atelectasis or consolidation.. Cardiomediastinal silhouette: No enlargement of the cardiomediastinal silhouette. Bones and soft tissues: No acute finding. READING PHYSICIAN: Sandeep Kraft M.D. -[phone] 03/05/2024 7:29 PST [facility] National Teleradiology Program [phone] (For Medical Practitioner Use Only) Attention Patients / Veterans: If you have questions or concerns about these test results, please contact your ordering provider or primary care team. Primary Interpreting Staff: RADIOLOGY,OUTSIDE SERVICE, Staff Physician / RADIOLOGY,OUTSIDE SERVICE [facility] Encounter Notes: All associated encounter notes This section contains the clinical notes associated to the Encounter. Date/Time Encounter Note(s) Provider Source Mar 14, 2024 06:26 PM PLASTIC SURGERY CONSULT: LOCAL TITLE: PLASTIC SURGERY CONSULT [facility] STANDARD TITLE: PLASTIC SURGERY CONSULT DATE OF NOTE: MAR 14, 2024@18:26 ENTRY DATE: MAR 14, 2024@18:27:02 AUTHOR: VEENA DIETRICH EXP COSIGNER: URGENCY: STATUS: COMPLETED SURGICAL SERVICE HISTORY & PHYSICAL The History & Physical must be completed within 30 days before the procedure and interval changes must be documented immediately prior to surgery. Attending: VEENA DIETRICH I am the attending physician. Chief Complaint: Bilateral hand loss of sensation in median nerve distribution and weakness HPI Asked by Dr. Morton to evaluate and treat Mr. Pineda for his three month history of symptoms of bilateral thumb, index and long finger numbness, nocturnal dysthesias and weakness of his hands not relieved with wrist splinting (three months) and the use of NSAI medications with documented bilateral Carpal Tunnel Syndrome Right > Left by EMG/NCV. Mr. Pineda requests bilateral staged CTR for treatment of his symptoms. He reports no neck pain or symptoms consistent with cervical radiculopathy. ACTIVE MEDICAL PROBLEMS: 1) Chronic lower back pain 2) Sleep apnea 3) Posttraumatic stress disorder 4) Major depressive disorder PAST SURGICAL HISTORY: No prior hand surgery PROBLEM LIST 1) Chronic back pain 2) Sleep apnea 3) Posttraumatic stress disorder 4) Major depressive disorder 5) Steatosis of liver 6) Obesity 7) Exposure to potentially hazardous substance 8) Allergic rhinitis 9) Insomnia Allergy review: (allergy or NKA) SHELLFISH Allergy list reviewed and remains current. ACTIVE MEDICATION: Active Outpatient Medications (including Supplies): ALBUTEROL 90MCG (CFC-F) 200D ORAL INHL INHALE 2 PUFFS ORAL ACTIVE INHALATION FOUR TIMES A DAY NEEDED FOR ASTHMA SHAKE WELL. RINSE MOUTHPIECE FREQUENTLY TO PREVENT CLOGGING. AMOXICILLIN 875/CLAV K 125MG TAB TAKE 1 TABLET BY MOUTH ACTIVE TWICE A DAY TAKE WITH FOOD. TAKE UNTIL GONE UNLESS OTHERWISE DIRECTED. 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 Other pertinent significant issues noted below: None Diagnostic Studies: EMG/NCV 02.08.2024: Bilateral moderate CTS, right worse than left. PHYSICAL EXAMINATION VITAL SIGNS: Recorded in nursing notes General>> Alert and oriented, No acute distress HENT>> Normocephalic EYE>> PERRL, EOMI Neck>> Supple, Non-tender Respiratory>> Lung CTA, Non-labored respirations, BS equal Cardiovascular>> Normal rate, Regular rhythm, No murmur Musculoskeletal>> Normal ROM, Normal strength, No tenderness Psychiatric>> Cooperative, Appropriate mood & affect Neurologic>> Alert, Oriented, No focal deficits MUSCULOSKELETAL EXAM: BILATERAL UPPER EXTREMITY EXAMINATION: Dermatologic: No abnormal skin lesions, wounds or healed lacerations/incisions. Vascular: Palpable Ulnar and radial pulses. Capillary refill to digits less than 2 sec. Lymphatic: No peripheral edema, no palpable epitrochlear or axillary adenopathy. Elbow Region: Negative Tinel's at cubital tunnel bilaterally. Forearm: There was a negative provocative maneuver for cubital tunnel syndrome, a negative provocative maneuver for pronator syndrome and radial tunnel syndrome Wrist: Carpal tunnel evaluation revealed (+) Tinel's and Phalens test bilaterally. There was no evidence of bilateral thenar and hypothenar muscle atrophy and thenar strength was 5/5. There is no evidence of tendon rupture, synovitis, or tenderness over the tendons or Jacek's tubercle. Hand: There were no areas of tenderness. Thumb: No triggering of the FPL tendon and no palpable nodule in the FPL tendon. Evaluation of the basal joint revealed no tenderness over the first carpometacarpal joint or scaphotrapezial joint. Grind test was negative. The metacarpal phalangeal joint was nontender and without laxity to medial or lateral stress. Fingers: Evaluation revealed no evidence of stenosing flexor tenosynovitis or triggering. Neurologic Examination Sensory: Light touch was diminished in the median nerve distribution bilaterally and intact in the ulnar nerve distribution. Two-point Discrimination (MTP) Left Right Thumb 9 mm 9 mm Index 9 mm 9 mm Middle 9 mm 9 mm RRing 9 mm 9 mm URing 5 mm 5 mm Small 5 mm 5 mm ASSESSMENT: 1) Bilateral CTS 2) Chronic back pain 3) Sleep apnea 4) Posttraumatic stress disorder 5) Major depressive disorder 6) Steatosis of liver 7) Obesity PLAN: I discussed with Mr. Pineda the anatomy, etiology and pathophysiology of carpal tunnel syndrome or median nerve compression at the wrist. Based upon my exam today and review of his EMG/NCV studies, I have recommended to Mr. Pineda that we proceed with Open Right Carpal Tunnel release. Mr. Pineda advises me that he is more symptomatic for his right hand than his left hand and concurs with this decision. I also advised him that if he wishes to proceed with a left open carpal tunnel release, he would need to wait for 4 weeks following his right open carpal tunnel release. In addition, he would need to wait at least 4 weeks prior to returning to work following surgery. I then discussed with Mr. Pineda, the indications for surgical treatment, the limitations of treatment, the alternative treatments as well as the potential risks and complications of treatment. These include, but are not limited to: bleeding, infection, anesthetic, hypertrophic scarring, loss of digital sensation, persistent pain, CRPS (Complex Regional Pain Syndrome, recurrence of his symptoms, persistence of symptoms, hand weakness, hand stiffness, the need for post-operative hand therapy, the need for additional surgery/treatment. I then advised Mr. Pineda that the time to surgery within Plastic Surgery, Orthopedic Surgery and Orthopedic Surgery sections was over 30 days and as a result he was a candidate for Care in the Community. He advised me he wished to proceed with [facility] and a consultation was submitted. /es/ VEENA DIETRICH COLLECTION TECHNICIAN Signed: 03/20/2024 15:08 VEENA DIETRICH [facility]
--- OUTSIDE RECORDS SUMMARY | 2024-04-10 06:57 | XMS_ITS | Encounter Summary ---
Author Name [facility] [place] Organization [facility] [place] Address [address] [place] [address] Care Team Providers Care Classifying Machine Operator Name Role Phone KODAK MORTON [...] CHOIC E PREFE RR Apr 13, 2020 [id number] [phone] BOOGIE BAILEY PATIENT ANTHEM [employer] [place] PREFERRED PROVIDER ORGANIZAT ION (PPO) BLUE CHOIC E PREFE RR Apr 13, 2020 [id number] [phone] STEPHANIE BAILEYON PATIENT ANTHEM [employer] [place] PREFERRED PROVIDER ORGANIZAT ION (PPO) BLUE CHOIC E PREFE RR Apr 13, 2020 [id number] [phone] BOOGIE BAILEY PATIENT BCBS [place] PREFERRED PROVIDER ORGANIZAT ION (PPO) BLUE CHOIC E PREFE RR Apr 13, 2020 [id number] [phone] BOOGIE BAILEY PATIENT PRIME THERAPEUTI CS RX PRESCRIPT ION BCBSI L TAYLER Apr 13, 2020 [id number] [id number] [phone] BOOGIE BAILEY PATIENT [facility] 2018 TRICA RE May 10, 2019 SELECT [id number] BOOGIE BAILEY PATIENT Selected Encounter This section includes the information on record at [place] for the Encounter. Date/Time Encounter Type Encounter Description Reason Pro vider Source Mar 05, 2024 09:39 AM Outpatient Encounter GENERAL INTERNAL MEDICINE IHE [...] 20 appointments. The data comes from all [facility]. Appointment Date/Time Appointment Type Appointme nt Facility Name Mar 16, 2024 10:15 AM AMBULATORY - SURGERY [facility] Mar 21, 2024 12:14 PM AMBULATORY - MEDICINE [facility] Apr 01, 2024 10:00 AM AMBULATORY - PSYCHIATRY [facility] Apr 18, 2024 11:00 AM AMBULATORY - PSYCHIATRY [facility] Apr 28, 2024 03:00 PM AMBULATORY - MEDICINE [facility] May 05, 2024 11:30 AM AMBULATORY - MEDICINE [facility] May 27, 2024 11:00 AM AMBULATORY - MEDICINE [facility] Active, Pending, and Scheduled Orders This section includes a listing of several types of active, pending, and scheduled orders, including clinic medications orders, diagnostic test orders, procedure orders and consult orders; where the start date of the order is 45 days before the date of the Encounter or 45 days after the date of theEncounter. The data comes from all [facility]. Test Date/Time Test Type Test Details Facility Name Jan 26, 2024 02:11 PM Consult Order RHEUMATOLO GY OUTPATIENT STL Cons [facility] Mar 16, 2024 10:22 AM Consult Order COMMUNITY CARE-STL PLASTIC SURG Cons [facility] Mar 21, 2024 03:48 PM Procedure Order CP EKG STL CP EKG - STL Proc [facility] Lab Results: +/- 30 days of the [...] Range Comment Mar 21, 2024 12:[address] [facility] COMPREHENSIVE METABOLIC PANEL Specimen Type: PLASMA Comment: No hemolysis noted. Ordering Provider: SUSAN BROWN Report Released Date/Time: Mar 21, 2024 12:23 PM Reporting Lab: [address] [address] Performing Lab: [address] [address] CREATININE 1.00 mg/dL 0.7-1.3 UREA NITROGEN 18.1 [...] 98.2 >60 Mar 21, 2024 12:[address] [facility] CBC Specimen Type: BLOOD No comment entered. Ordering Provider: SUSAN BROWN Report Released Date/Time: Mar 21, 2024 12:23 PM Reporting Lab: [address] [address] Performing Lab: [address] [address] WBC 7.2 10*3/uL 3.6-11.2 RBC 4.24 10*6/uL [...] 10*3/uL 0.00-0.20 Mar 05, 2024 11:[address] [facility] TROPONIN I Specimen Type: PLASMA No comment entered. Ordering Provider: MUKESH MARINELLI Report Released Date/Time: Mar 05, 2024 11:04 AM Reporting Lab: [address] [address] Performing Lab: [address] [address] TROPONIN I <0.010 ng/mL 0-0.033 Mar 05, 2024 09:[address] [facility] RESPIRATORY PCR PANEL Specimen Type: NASOPHARYNX Comment: [...] the clinician evaluating the patient. Claudio GREEN, (793) Ordering Provider: MUKESH MARINELLI Report Released Date/Time: Mar 05, 2024 09:39 AM Reporting Lab: [address] [address] Performing Lab: [address] [address] *Adenovirus (BF) Not Detected Not Detected *Coronavirus [...] Not Detected Mar 05, 2024 09:[address] [facility] CBC Specimen Type: BLOOD No comment entered. Ordering Provider: MUKESH MARINELLI Report Released Date/Time: Mar 05, 2024 08:52 AM Reporting Lab: [facility] [address] [place] [address] Performing Lab: [address] [address] WBC 7.1 10*3/uL 3.6-11.2 RBC 4.84 10*6/uL [...] 10*3/uL 0.00-0.20 Mar 05, 2024 09:[address] [facility] TROPONIN I Specimen Type: PLASMA Comment: No hemolysis noted. Ordering Provider: MUKESH MARINELLI Report Released Date/Time: Mar 05, 2024 08:52 AM Reporting Lab: [place] [address] Performing Lab: [place] [phone] TROPONIN I 0.013 ng/mL 0-0.033 Mar 05, 2024 09:[address] [facility] TSH (MA-PB) Specimen Type: SERUM No comment entered. Ordering Provider: MUKESH MARINELLI Report Released Date/Time: Mar 05, 2024 09:39 AM Reporting Lab: [place] [address] Performing Lab: [place] [phone] TSH 0.283 u[IU]/mL L 0.47-5 FREE T4(REFLEX) 1.10 ng/mL 0.7-1.48 Mar 05, 2024 09:[address] [facility] COMPREHENSIVE METABOLIC PANEL Specimen Type: PLASMA Comment: No hemolysis noted. Ordering Provider: MUKESH MARINELLI Report Released Date/Time: Mar 05, 2024 08:52 AM Reporting Lab: [address] [address] Performing Lab: [address] [address] CREATININE 0.92 mg/dL 0.7-1.3 UREA NITROGEN 15.6 [...] 108.5 >60 Mar 05, 2024 09:[address] [facility] BRAIN NATRIURETIC PEPTIDE Specimen Type: PLASMA No comment entered. Ordering Provider: MUKESH MARINELLI Report Released Date/Time: Mar 05, 2024 09:39 AM Reporting Lab: [address] [address] Performing Lab: [address] [address] BRAIN NATRIURETIC PEPTIDE 16.2 pg/mL 0-100 Vital Signs: All taken on the encounter date This section contains inpatient and outpatient Vital Signs collected on the date of the Encounter. Date/Time Temperature Pulse Blood Pressure Respiratory Rate SP02 Pain Height Weight Body Mass Index Source Mar 05, 2024 11:45 AM 88 116/84 2 [facility] Mar 05, 2024 09:40 AM 98.6 [facility] Mar 05, 2024 08:48 AM 98 136 134/82 18 3 [facility] Social History: Smoking [...] 26, 2021 03:59 PM VA-TOBACCO NEVER USED [facility] Radiology Reports: +/- 30 [...] the Encounter. The data comes from all [place] treatment facilities. Date/Time Radiology Report Provider Source Mar 21, 2024 12:34 PM CHEST X-RAY, 2 VIEWS: JORDYN BAILEY [id number] -1985 M Exm Date: MAR 21, 2024@12:34 Req Phys: SUSAN BROWN Loc: -EMERGENCY DEPT 2ND SHIFT (R Img Loc: -MAIN RADIOLOGY SUITE Service: [address] [address] (Case [id number] COMPLETE) CHEST X-RAY, 2 VIEWS (RAD Detailed) CPT:95982 Reason for Study: cough, SOB Clinical History: Report Status: Verified Date Reported: MAR 21, 2024 Date Verified: MAR 21, 2024 Turn Down Attendant E-Sig:/ES/Lynn Castro MD Report: CHEST X-RAY, 2 VIEWS CASE #: [id number] DATE:03/21/2024 12:39 PM CLINICAL HISTORY:cough, SOB COMPARISON: 03/05/2024, 05/20/2023, 05/28/2022 TECHNIQUE: CHEST X-RAY, 2 VIEWS Impression: FINDINGS/IMPRESSION: Low lung volumes. Top normal heart size. No CHF. Bibasilar atelectasis versus pneumonia. Correlate clinically. No pleural effusion. No pneumothorax. Primary Interpreting Staff: Lynn Castro MD, Radiologist (Turn Down Attendant) /LYNN ONEILL [facility] Mar 05, 2024 10:[address] PE CHEST W/3D: JORDYN BAILEY [id number] -1985 M Exm Date: MAR 05, 2024@10:00 Req Phys: MUKESH MARINELLI Loc: [facility]-EMERGENCY DEPT 2ND SHIFT (R Img Loc: [facility]-CT IMAGING [facility] Service: Unknown [facility], [facility] [address] [place] [address] (Case [id number] COMPLETE) CT THORAX W/CONT (PE) (CT Detailed) CPT:23570 Contrast Media : unspecified contrast media Reason [...] 05, 2024 Date Verified: MAR 05, 2024 Turn Down Attendant E-Sig: Report: CT THORAX W/CONT (PE) [PRINTSET] HISTORY: chest pain, tachycardia COMPARISON: 02/12/2024 TECHNIQUE: Helical CT of the chest, with multiplanar reformats including maximum intensity projection (MIP) reconstructions, was performed at the local [place] facility. 1529 images were received by the [place] National Teleradiology Program (NTP) for interpretation. RADIATION [...] excluded. 3. Cardiomegaly. READING PHYSICIAN: Wilfred Roberts -[phone] 03/05/2024 7:32 [facility] National Teleradiology Program [phone] (For Medical Practitioner Use Only) Attention Patients / Veterans: If you have questions or concerns about these test results, please contact your ordering provider or primary care team. Primary Interpreting Staff: RADIOLOGY,OUTSIDE SERVICE, Staff Physician / RADIOLOGY,OUTSIDE SERVICE [facility] Mar 05, 2024 08:59 AM CHEST PORTABLE: JORDYN BAILEY [id number] -1985 Ex Date: MAR 05, 2024@08:59 Req Phys: MUKESH MARINELLI Loc: [facility]-EMERGENCY DEPT 2ND SHIFT (R Img Loc: [facility]-MAIN RADIOLOGY SUITE Service: [address] [address] (Case [id number] COMPLETE) CHEST PORTABLE (RAD Detailed) CPT:66230 Proc Modifiers : Portable Reason for Study: chest pain Clinical History: Report Status: Verified Date Reported: MAR 05, 2024 Date Verified: MAR 05, 2024 Turn Down Attendant E-Sig: Report: CHEST PORTABLE Comparison: 05/20/2023, 02/12/2024 Clinical History: chest pain The study was performed and supervised at the local [place] facility, and subsequently transmitted to [facility] NTP (National Teleradiology Program) for interpretation. Impression: Lungs: Small left effusion with left basilar opacity which may represent atelectasis or consolidation.. Cardiomediastinal silhouette: No enlargement of the cardiomediastinal silhouette. Bones and soft tissues: No acute finding. READING PHYSICIAN: Sandeep Kraft M.D. -[phone] 03/05/2024 7:29 PST [facility] National Teleradiology Program [phone] (For Medical Practitioner Use Only) Attention Patients / Veterans: If you have questions or concerns about these test results, please contact your ordering provider or primary care team. Primary Interpreting Staff: RADIOLOGY,OUTSIDE SERVICE, Staff Physician / RADIOLOGY,OUTSIDE SERVICE [facility] Feb 12, 2024 02:[address] THORAX W/O CONT HIGH RES: JORDYN BAILEY [id number] -1985 M Ex Date: FEB 12, 2024@14:18 Req Phys: FLOYD WOO Loc: [facility]-PULNacho FAIRCHILD 1 (Req'g Loc) Img Loc: [facility]-CT IMAGING [facility] Service: [facility], [address] [address] (Case [id number] COMPLETE) CT THORAX W/O CONT HIGH RES (CT Detailed) CPT:83038 Reason for Study: chronic cough, exertional dyspnea, + hazardous exposure hx Clinical History: Responsible Attending: floyd woo PA-C Attending Contact Number: [phone] Resident Contact Number: Allergies listed in CPRS chart: SHELLFISH Creatinine: CREATININE 0.95 mg/dL 11/25/2023 11:00 /eGFR: STL EGFR (within one year). CREATININE 0.95 mg/dL (11/25/23 11:00) Wt: 218.3 lb [99.02 kg] (01/14/2024 08:55) History of: Renal failure, chronic or acute renal disease: NO Report Status: Verified Date Reported: FEB 15, 2024 Date Verified: FEB 15, 2024 Turn Down Attendant E-Sig:/ES/Lynn Castro MD Report: CASE #: [id number] DATE:02/12/2024 4:23 PM CLINICAL HISTORY:chronic cough, exertional [...] Primary Interpreting Staff: Lynn Castro MD, Radiologist (Turn Down Attendant) [facility] Encounter Notes: All associated encounter notes This section contains the clinical notes associated to the Encounter. Date/Time Encounter Note(s) Provider Source Mar 05, 2024 09:39 AM SCANNED NOTE: LOCAL TITLE: SCANNED [place] MEDICAL RECORD STL STANDARD TITLE: SCANNED NOTE DATE OF NOTE: MAR 05, 2024@09:39 ENTRY DATE: MAR 31, 2024@17:22:24 AUTHOR: MILIND EASON EXP COSIGNER: URGENCY: STATUS: COMPLETED VistA Imaging - Scanned Document RADIOLOGY [id number] /es/ MILIND EASON replace Signed: 03/31/2024 17:22 MILIND EASON [facility]
--- OUTSIDE RECORDS SUMMARY | 2024-04-10 06:57 | XMS_ITS ---
Author Name [facility] [place] Organization [facility] [place] Address [address] [place] [address] Care Team Providers Care Fur Stylist Name Role Phone KODAK MORTON Primary Care [...] CHOIC E PREFE RR Apr 13, 2020 [id number] [phone] BOOGIE BAILEY PATIENT ANTHEM [employer] PREFERRED PROVIDER ORGANIZAT ION (PPO) BLUE CHOIC E PREFE RR Apr 13, 2020 [id number] [phone] STEPHANIE BAILEYON PATIENT AN[place] PREFERRED PROVIDER ORGANIZAT ION (PPO) BLUE CHOIC E PREFE RR Apr 13, 2020 [id number] BOOGIE BAILEY PATIENT [place] PREFERRED PROVIDER ORGANIZAT ION (PPO) BLUE CHOIC E PREFE RR Apr 13, 2020 [id number] [phone] BOOGIE BAILEY PATIENT PRIME THERAPEUTI CS RX PRESCRIPT ION BCBSI L TAYLER Apr 13, 2020 BCBSIL [id number] [phone] BOOGIE BAILEY PATIENT [facility] 2018 TRICA RE May 10, 2019 SELECT [id number] 22 BOOGIE BAILEY PATIENT Selected Encounter This section includes the information on record at [place] for the Encounter. Date/Time Encounter Type Encounter Description Reason Provider Source Mar 27, 2024 12:01 AM Outpatient Encounter GENERAL INTERNAL MEDICINE KODAK MORTON Encounter Template Text not used by [place] [...] 20 appointments. The data comes from all [facility]. Appointment Date/Time Appointment Type Appointme nt Facility Name Apr 01, 2024 10:00 AM AMBULATORY - PSYCHIATRY [facility] Apr 18, 2024 11:00 AM AMBULATORY - PSYCHIATRY [facility] Apr 28, 2024 03:00 PM AMBULATORY - MEDICINE [facility] May 05, 2024 11:30 AM AMBULATORY - MEDICINE [facility] May 27, 2024 11:00 AM [...] of theEncounter. The data comes from all [facility]. Test Date/Time Test Type Test Details Facility Name Mar 16, 2024 10:22 AM Consult Order COMMUNITY CARE-STL PLASTIC SURG Cons [facility] Mar 21, 2024 03:48 PM Procedure Order CP EKG STL CP EKG - STL Proc [facility] Lab Results: +/- 30 days of [...] Comment Mar 21, 2024 12:30 PM [facility] COMPREHENSIVE METABOLIC PANEL Specimen Type: PLASMA Comment: No hemolysis noted. Ordering Provider: SUSAN BROWN Report Released Date/Time: Mar 21, 2024 12:23 PM Reporting Lab: [address] [address] Performing Lab: [address] [address] CREATININE 1.00 mg/dL 0.7-1.3 UREA NITROGEN 18.1 [...] >60 Mar 21, 2024 12:30 PM [facility] CBC Specimen Type: BLOOD No comment entered. Ordering Provider: SUSAN BROWN Report Released Date/Time: Mar 21, 2024 12:23 PM Reporting Lab: [facility] [address] [facility] [address] Performing Lab: [address] [address] WBC 7.2 10*3/uL 3.6-11.2 RBC 4.24 10*6/uL [...] 0.00-0.20 Mar 05, 2024 11:10 AM [facility] TROPONIN I Specimen Type: PLASMA No comment entered. Ordering Provider: MUKESH MARINELLI Report Released Date/Time: Mar 05, 2024 11:04 AM Reporting Lab: [address] [address] Performing Lab: [address] [address] TROPONIN I <0.010 ng/mL 0-0.033 Mar 05, 2024 09:50 AM [facility] RESPIRATORY PCR PANEL Specimen Type: NASOPHARYNX Comment: The [facility] RP Panel combines nested multiplex PCR and [...] the clinician evaluating the patient. Claudio GREEN, (402) Ordering Provider: MUKESH MARINELLI Report Released Date/Time: Mar 05, 2024 09:39 AM Reporting Lab: [address] [address] Performing Lab: [address] [address] *Adenovirus (BF) Not Detected Not Detected *Coronavirus [...] Mar 05, 2024 09:00 AM [facility] CBC Specimen Type: BLOOD No comment entered. Ordering Provider: UMKESH MARINELLI Report Released Date/Time: Mar 05, 2024 08:52 AM Reporting Lab: [address] [address] Performing Lab: [place] [address] [facility] [address] WBC 7.1 10*3/uL 3.6-11.2 RBC 4.84 10*6/uL [...] Mar 05, 2024 09:00 AM [facility] TROPONIN I Specimen Type: PLASMA Comment: No hemolysis noted. Ordering Provider: MUKESH MARINELLI Report Released Date/Time: Mar 05, 2024 08:52 AM Reporting Lab: [place] [address] Performing Lab: [place] [address] TROPONIN I 0.013 ng/mL 0-0.033 Mar 05, 2024 09:00 AM [facility] TSH (MA-PB) Specimen Type: SERUM No comment entered. Ordering Provider: MUKESH MARINELLI Report Released Date/Time: Mar 05, 2024 09:39 AM Reporting Lab: [place] [address] Performing Lab: [place] [address] TSH 0.283 u[IU]/mL L 0.47-5 FREE T4(REFLEX) 1.10 ng/mL 0.7-1.48 Mar 05, 2024 09:00 AM [facility] BRAIN NATRIURETIC PEPTIDE Specimen Type: PLASMA No comment entered. Ordering Provider: MUKESH MARINELLI Report Released Date/Time: Mar 05, 2024 09:39 AM Reporting Lab: [place] [address] Performing Lab: [facility] [address] [facility] [address] BRAIN NATRIURETIC PEPTIDE 16.2 pg/mL 0-100 Mar 05, 2024 09:00 AM [facility] COMPREHENSIVE METABOLIC PANEL Specimen Type: PLASMA Comment: No hemolysis noted. Ordering Provider: MUKESH MARINELLI Report Released Date/Time: Mar 05, 2024 08:52 AM Reporting Lab: [facility] [address] [facility] [address] Performing Lab: [facility] [address] [facility] [address] CREATININE 0.92 mg/dL 0.7-1.3 UREA NITROGEN 15.6 [...] PM CHEST X-RAY, 2 VIEWS: JORDYN BAILEY [id number] -1985 M Exm Date: MAR 21, 2024@12:34 Req Phys: SUSAN BROWN Loc: [facility]-EMERGENCY DEPT 2ND SHIFT (R Img Loc: [facility]-MAIN RADIOLOGY SUITE Service: Unknown [address] [address] (Case [id number] COMPLETE) CHEST X-RAY, 2 VIEWS (RAD Detailed) CPT:63360 Reason for Study: cough, SOB Clinical History: Report Status: Verified Date Reported: MAR 21, 2024 Date Verified: MAR 21, 2024 Commercial Illustrator E-Sig:/ES/Lynn Castro MD Report: CHEST X-RAY, 2 VIEWS CASE #: [id number] DATE:03/21/2024 12:39 PM CLINICAL HISTORY:cough, SOB COMPARISON: 03/05/2024, 05/20/2023, 05/28/2022 TECHNIQUE: CHEST X-RAY, 2 VIEWS Impression: FINDINGS/IMPRESSION: Low lung volumes. Top normal heart size. No CHF. Bibasilar atelectasis versus pneumonia. Correlate clinically. No pleural effusion. No pneumothorax. Primary Interpreting Staff: Lynn Castro MD, Radiologist (Commercial Illustrator) /LYNN ONEILL [facility] Mar 05, 2024 10:[address] PE CHEST W/3D: JORDYN BAILEY [id number] -1985 M Exm Date: MAR 05, 2024@10:00 Req Phys: MUKESH MARINELLI Loc: -EMERGENCY DEPT 2ND SHIFT (R Img Loc: -CT IMAGING [facility] Service: Unknown [address] [address] (Case [id number] COMPLETE) CT THORAX W/CONT (PE) (CT Detailed) CPT:79433 Contrast Media : unspecified contrast media Reason [...] 05, 2024 Date Verified: MAR 05, 2024 Commercial Illustrator E-Sig: Report: CT THORAX W/CONT (PE) [PRINTSET] [...] excluded. 3. Cardiomegaly. READING PHYSICIAN: Wilfred Roberts -[phone] 03/05/2024 7:32 [facility] National Teleradiology Program [phone] (For Medical Practitioner Use Only) Attention Patients / Veterans: If you have questions or concerns about these test results, please contact your ordering provider or primary care team. Primary Interpreting Staff: RADIOLOGY,OUTSIDE SERVICE, Staff Physician / RADIOLOGY,OUTSIDE SERVICE [facility] Mar 05, 2024 08:59 AM CHEST PORTABLE: JORDYN BAILEY [id number] -1985 M Exm Date: MAR 05, 2024@08:59 Req Phys: MUKESH MARINELLI Loc: [facility]-EMERGENCY DEPT 2ND SHIFT (R Img Loc: [facility]-MAIN RADIOLOGY SUITE Service: [address] [address] (Case [id number] COMPLETE) CHEST PORTABLE (RAD Detailed) CPT:85389 Proc Modifiers : Portable Reason for Study: chest pain Clinical History: Report Status: Verified Date Reported: MAR 05, 2024 Date Verified: MAR 05, 2024 Commercial Illustrator E-Sig: Report: CHEST PORTABLE Comparison: 05/20/2023, 02/12/2024 Clinical History: chest pain The study was performed and supervised at the local [place] facility, and subsequently transmitted to [facility] NTP (National Teleradiology Program) for interpretation. Impression: Lungs: Small left effusion with left basilar opacity which may represent atelectasis or consolidation.. Cardiomediastinal silhouette: No enlargement of the cardiomediastinal silhouette. Bones and soft tissues: No acute finding. READING PHYSICIAN: Sandeep Kraft M.D. -[phone] 03/05/2024 7:29 PST [facility] National Teleradiology Program [phone] (For Medical Practitioner Use Only) Attention Patients / Veterans: If you have questions or concerns about these test results, please contact your ordering provider or primary care team. Primary Interpreting Staff: RADIOLOGY,OUTSIDE SERVICE, Staff Physician / RADIOLOGY,OUTSIDE SERVICE [facility] Encounter Notes: All associated encounter notes This section contains the clinical notes associated to the Encounter. Date/Time Encounter Note(s) Provider Source Mar 27, 2024 12:01 AM NONVA NOTE: LOCAL TITLE: [facility] CARE COORD PLAN STANDARD TITLE: NONVA NOTE DATE OF NOTE: MAR 27, 2024@00:01 ENTRY DATE: MAR 31, 2024@10:15:39 AUTHOR: JUD FORD I EXP COSIGNER: URGENCY: STATUS: COMPLETED Emergency Notification Intake Date Presenting to the Facility: Mar Method of Contact: Notified from ECR worklist Notification ID: [id number] [facility] Referral #: Closed - Unable to follow up Community [facility] Name: Hospital: [facility] Address: [facility] [address] City: [place] State: [place] Zip Code: [address] Community Facility Point of Contact: Name: Nayeli Ware Chief complaint: pain with inspiration Primary Diagnosis: Disposition Discharged Date of discharge: Mar Discharge to home /es/ JUD FORD [employer] Signed: 03/31/2024 10:19 JUD FORD I [facility]
--- OUTSIDE RECORDS SUMMARY | 2024-04-10 06:57 | XMS_ITS | Encounter Summary ---
Author Name [facility] [place] [facility] [place] Address [address] [place] [address] Care Team Providers Care Travel Sales Consultant Name Role Phone KODAK MORTON Primary [...] CHOIC E PREFE RR Apr 13, 2020 [id number] [phone] BOOGIE BAILEY ANDON PATIENT ANTHEM [employer] [place] PREFERRED PROVIDER ORGANIZAT ION (PPO) BLUE CHOIC E PREFE RR Apr 13, 2020 [id number] [phone] LYNN,BOOGIE ANDON PATIENT ANTHEM [employer] [place] PREFERRED PROVIDER ORGANIZAT ION (PPO) BLUE CHOIC E PREFE RR Apr 13, 2020 [id number] [phone] BOOGIE BAILEY ANDON PATIENT [employer] [place] PREFERRED PROVIDER ORGANIZAT ION (PPO) BLUE CHOIC E PREFE RR Apr 13, 2020 [id number] [phone] BOOGIE BAILEY PATIENT PRIME THERAPEUTI CS RX PRESCRIPT ION BCBSI L [place] Apr 13, 2020 BCBSIL [id number] [phone] BOOGIE BAILEY PATIENT [facility] 2018 TRICA RE May 10, 2019 SELECT [id number] BOOGIE BAILEY PATIENT Selected Encounter This section includes the information on record at [place] for the Encounter. Date/Time Encounter Type Encounter Description Reason Provider Source Apr 01, 2024 10:00 AM FAMILY PSYTX W/PT 50 [facility] - IND ICD-10-CM Z63.0 Problems in relationship with spouse or partner LORAINE NOEL [facility] Encounter Template Text not used by [place] Assessments - Encounter Diagnoses This section includes the primary and secondary diagnoses documented for the Encounter. Date/Time Primary/Secondary Diagnosis Diagnosis Name Provider Source Apr 01, 2024 12:20 PM PRIMARY Problems in relationship with spouse or partner MIRIAN NOEL [facility] Plan of Treatment: Future Appointments (+ 6 months) and Future Tests (+/- 45 days) The Plan of Treatment section includes future care activities for the patient from all [place] [facility] This section includes future appointments and future orders which are active, pending or scheduled. Future Appointments This section includes appointments that were scheduled to occur 6 months from the date of the Encounter, up to a maximum of 20 appointments. The data comes from all [facility]. Appointment Date/Time Appointment Type Appointme nt Facility Name Apr 18, 2024 11:00 AM AMBULATORY - PSYCHIATRY [facility] Apr 28, 2024 03:00 PM AMBULATORY - MEDICINE [facility] May 05, 2024 11:30 AM AMBULATORY - MEDICINE [facility] May 27, 2024 11:00 AM AMBULATORY - MEDICINE [facility] Active, Pending, and Scheduled Orders This section includes a listing of several types of active, pending, and scheduled orders, including clinic medications orders, diagnostic test orders, procedure orders and consult orders; where the start date of the order is 45 days before the date of the Encounter or 45 days after the date of theEncounter. The data comes from all [place] treatment [facility]. Test Date/Time Test Type Test Details Facility Name Mar 16, 2024 10:22 AM Consult Order [facility] PLASTIC SURG Cons Data Center [facility] Mar 21, 2024 03:48 PM Procedure Order CP EKG STL CP EKG - STL Proc Data Center Technician's [facility] Lab Results: +/- 30 days of the [...] Range Comment Mar 21, 2024 12:30 PM [facility] COMPREHENSIVE METABOLIC PANEL Specimen Type: PLASMA Comment: No hemolysis noted. Ordering Provider: SUSAN BROWN Report Released Date/Time: Mar 21, 2024 12:23 PM Reporting Lab: [address] [address] Performing Lab: [address] [address] CREATININE 1.00 mg/dL 0.7-1.3 UREA NITROGEN 18.1 [...] 98.2 >60 Mar 21, 2024 12:30 PM [facility] CBC Specimen Type: BLOOD No comment entered. Ordering Provider: SUSAN BROWN Report Released Date/Time: Mar 21, 2024 12:23 PM Reporting Lab: [facility] [address] [facility] [address] Performing Lab: [address] [address] WBC 7.2 10*3/uL 3.6-11.2 RBC 4.24 10*6/uL [...] 10*3/uL 0.00-0.20 Mar 05, 2024 11:10 AM [facility] TROPONIN I Specimen Type: PLASMA No comment entered. Ordering Provider: MUKESH MARINELLI Report Released Date/Time: Mar 05, 2024 11:04 AM Reporting Lab: [address] [address] Performing Lab: [address] [address] TROPONIN I <0.010 ng/mL 0-0.033 Mar 05, 2024 09:50 AM [facility] RESPIRATORY PCR PANEL Specimen Type: NASOPHARYNX Comment: [...] the clinician evaluating the patient. Claudio GREEN, (897) Ordering Provider: MUKESH MARINELLI Report Released Date/Time: Mar 05, 2024 09:39 AM Reporting Lab: [address] [address] Performing Lab: [address] [address] *Adenovirus (BF) Not Detected Not Detected *Coronavirus [...] Not Detected Mar 05, 2024 09:00 AM [facility] CBC Specimen Type: BLOOD No comment entered. Ordering Provider: MUKESH MARINELLI Report Released Date/Time: Mar 05, 2024 08:52 AM Reporting Lab: [facility] [address] [facility] [address] Performing Lab: [address] [address] WBC 7.1 10*3/uL 3.6-11.2 RBC 4.84 10*6/uL [...] 10*3/uL 0.00-0.20 Mar 05, 2024 09:00 AM [facility] TROPONIN I Specimen Type: PLASMA Comment: No hemolysis noted. Ordering Provider: MUKESH MARINELLI Report Released Date/Time: Mar 05, 2024 08:52 AM Reporting Lab: [place] [phone] Performing Lab: [address] [address] TROPONIN I 0.013 ng/mL 0-0.033 Mar 05, 2024 09:00 AM [facility] TSH (MA-PB) Specimen Type: SERUM No comment entered. Ordering Provider: MUKESH MARINELLI Report Released Date/Time: Mar 05, 2024 09:39 AM Reporting Lab: [address] [address] Performing Lab: [address] [address] TSH 0.283 u[IU]/mL L 0.47-5 FREE T4(REFLEX) 1.10 ng/mL 0.7-1.48 Mar 05, 2024 09:00 AM [facility] COMPREHENSIVE METABOLIC PANEL Specimen Type: PLASMA Comment: No hemolysis noted. Ordering Provider: MUKESH MARINELLI Report Released Date/Time: Mar 05, 2024 08:52 AM Reporting Lab: [facility] [address] [facility] [address] Performing Lab: [address] [address] CREATININE 0.92 mg/dL 0.7-1.3 UREA NITROGEN 15.6 [...] 108.5 >60 Mar 05, 2024 09:00 AM [facility] BRAIN NATRIURETIC PEPTIDE Specimen Type: PLASMA No comment entered. Ordering Provider: MUKESH MARINELLI Report Released Date/Time: Mar 05, 2024 09:39 AM Reporting Lab: [address] [address] Performing Lab: [address] [address] BRAIN NATRIURETIC PEPTIDE 16.2 pg/mL 0-100 Radiology Reports: +/- 30 days of the [...] the Encounter. The [facility] comes [facility]. Date/Time Radiology Report Provider Source Mar 21, 2024 12:34 PM CHEST X-RAY, 2 VIEWS: JORDYN BAILEY [id number] -1985 M Exm Date: MAR 21, 2024@12:34 Req Phys: SUSAN BROWN Loc: -EMERGENCY DEPT 2ND SHIFT (R Img Loc: -MAIN RADIOLOGY SUITE Service: Unknown [address] [address] (Case [id number] COMPLETE) CHEST X-RAY, 2 VIEWS (RAD Detailed) CPT:99541 Reason for Study: cough, SOB Clinical History: Report Status: Verified Date Reported: MAR 21, 2024 Date Verified: MAR 21, 2024 Cdl B Driver E-Sig:/ES/Lynn Castro MD Report: CHEST X-RAY, 2 VIEWS CASE #: [id number] DATE:03/21/2024 12:39 PM CLINICAL HISTORY:cough, SOB COMPARISON: 03/05/2024, 05/20/2023, 05/28/2022 TECHNIQUE: CHEST X-RAY, 2 VIEWS Impression: FINDINGS/IMPRESSION: Low lung volumes. Top normal heart size. No CHF. Bibasilar atelectasis versus pneumonia. Correlate clinically. No pleural effusion. No pneumothorax. Primary Interpreting Staff: Lynn Castro MD, Radiologist (Cdl B Driver) /LYNN ONEILL [facility] Mar 05, 2024 10:[address] PE CHEST W/3D: JORDYN BAILEY ANTHONY [id number] -1985 M Exm Date: MAR 05, 2024@10:00 Req Phys: MUKESH MARINELLI Loc: -EMERGENCY DEPT 2ND SHIFT (R Img Loc: -CT IMAGING Service: Unknown [address] [address] (Case [id number] COMPLETE) CT THORAX W/CONT (PE) (CT Detailed) CPT:28496 Contrast Media : unspecified contrast media Reason [...] 05, 2024 Date Verified: MAR 05, 2024 Cdl B Driver E-Sig: Report: CT THORAX W/CONT (PE) [PRINTSET] HISTORY: chest pain, tachycardia COMPARISON: 02/12/2024 TECHNIQUE: Helical CT of the chest, with multiplanar reformats including maximum intensity projection (MIP) reconstructions, was performed at the local [place] facility. 1529 images were received by the [place] [facility] ([facility]) for interpretation. RADIATION [...] excluded. 3. Cardiomegaly. READING PHYSICIAN: Wilfred Roberts -[id number] 03/05/2024 7:32 [facility] National Teleradiology Program [phone] (For Medical Practitioner Use Only) Attention Patients / Veterans: If you have questions or concerns about these test results, please contact your ordering provider or primary care team. Primary Interpreting Staff: RADIOLOGY,OUTSIDE SERVICE, Staff Physician / RADIOLOGY,OUTSIDE SERVICE [facility] Mar 05, 2024 08:59 AM CHEST PORTABLE: JORYDN BAILEY [id number] -1985 M Exm Date: MAR 05, 2024@08:59 Req Phys: MUKESH MARINELLI Loc: [facility]-EMERGENCY DEPT 2ND SHIFT (R Img Loc: [facility]-MAIN RADIOLOGY SUITE Service: [facility], [address] [place] [address] (Case [id number] COMPLETE) CHEST PORTABLE (RAD Detailed) CPT:09017 Proc Modifiers : Portable Reason for Study: chest pain Clinical History: Report Status: Verified Date Reported: MAR 05, 2024 Date Verified: MAR 05, 2024 Cdl B Driver E-Sig: Report: CHEST PORTABLE Comparison: 05/20/2023, 02/12/2024 Clinical History: chest pain The study was performed and supervised at the local [place] facility, and subsequently [facility]) for interpretation. Impression: Lungs: Small left effusion with left basilar opacity which may represent atelectasis or consolidation.. Cardiomediastinal silhouette: No enlargement of the cardiomediastinal silhouette. Bones and soft tissues: No acute finding. READING PHYSICIAN: Sandeep Kraft M.D. -[id number] 03/05/2024 7:29 [facility] [phone] (For Medical Practitioner Use Only) Attention Patients / Veterans: If you have questions or concerns about these test results, please contact your ordering provider or primary care team. Primary Interpreting Staff: RADIOLOGY,OUTSIDE SERVICE, Staff Physician / RADIOLOGY,OUTSIDE SERVICE [facility] Encounter Notes: All associated encounter notes This section contains the clinical notes associated to the Encounter. 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 Surveyed the environment and identified all participants. Locked the virtual conference room once all participants joined. Confirmed 's Non-[facility] location for this appointment: Home Address:[address] [place] [id number] Emergency Contact: Primary NOK: JOSÉ MENSAH Relation: EXTENDED FAMILY M [address] [place], [place] [address] Phone: in chart EMERGENCY PLAN Confirmed 's Non-VA location for this appointment. In the event of an emergency, the [place] or family will call emergency services. Provider will remain on the phone until emergency response arrives and handoff to emergency services is complete, or if [place] is unable to make emergency call, Provider will call the [employer] service at and ask to be connected to emergency services for the [place]'s location. Therapy Sessions Time in session (in minutes): 60 SESSION NUMBER SESSION FORMAT Video Telehealth Session SESSION LOCATION [facility] DIAGNOSIS: Primary (focus of treatment): z63.0 ASSESSMENT [ x] Measures/Scores: CSI vet-28 Michelle-26 (04/01/24). [ ] Results are located in Mental Health Diagnostic Study Note [ ] Measures not collected/administered this session: [ ] Measures not indicated this session. Frequency of administration: monthly [ ] Completed symptom review (see Progress Towards Goals) [ ] [place] declined to complete measures this session. [ ] Describe efforts to increase measurement: [ ] Symptom review completed in Progress Towards Goals MENTAL STATUS/PRESENTATION: WNL or no change RISK ASSESSMENT: [place] Risk Assessment: LETHALITY ASSESSMENT - Current thoughts of harming self or others? NO - A history of suicide attempts: NO -Risk Factors: Current Mental health condition current mental health symptoms Lack of social support Chronic pain -Protective Factors: Absence of SI, intent, or plan, no history of SI, suicide attempts, or self- harm behavior. Several stated reasons for living Childcare responsibilities Work responsibilities Plans for the future Willingness to engage in treatment Moral objections to suicide Desire to repair relationship Futuristic thinking -CLINICAL JUDGMENT AND DISPOSITION: In consideration of relevant risk and protective factors, the [place] did NOT appear to be at imminent risk for suicide, homicide, or interpersonal violence at this time and IS sustainable at the current level of care. MEASURABLE TREATMENT GOALS FOR THIS EPISODE OF CARE: The following goals were developed using shared decision-making with input by the : #1. GOAL/OBJECTIVES FOR THIS EPISODE OF CARE: Increase reported relationship satisfaction as indicated by increasing CSI scores. PROGRESS TOWARDS GOAL OR SYMPTOM REVIEW: #2. GOAL/OBJECTIVES FOR THIS EPISODE OF CARE: Increase in effective relationship communication as indicated by self-report and increasing CSI scores. PROGRESS TOWARDS GOAL OR SYMPTOM REVIEW: PARTICIPANTS IN SESSION: and spouse SESSION CONTENT In this session, the following therapeutic activities were performed: INTRODUCTORY REVIEW --The clinician reviewed Weekly Questionnaire for violent/destructive events or major changes and handled as necessary. --The clinician set the agenda based on weekly incidents and issues. CONTENT AREAS --Discussed incidents and issues raised by the couple. --The clinician used the following techniques: --Tolerance building --Direct change strategies (e.g., problem-solving, communication skills) SUMMARY The couple reported that there have been no major changes since the last appt. Reviewed with the couple rules of communication, to include how to utilize reflective listening. They were able to practice and provide examples as to when this would have been helpful. Discussed utilizing hills and valleys conversations with them as a couple, and also with their children. Discussed utilizing conversation starters to practice their communication skills. Couple agreed to practice these skills for HW. COLLABORATION The degree of collaboration between the [place] and the therapist in the current session was high. Collaboratively discussed outcomes related to assessment and treatment progress. Based on this discussion: No changes to plan of care. [place] expressed agreement with therapy tasks and [id number] plan. PLAN Next session planned for agreed upon date/time of: 04/18 @ 11am /nataliia/ Mirian Noel Psy.D Marriage and Family Therapist, [place] 58 Signed: 04/01/2024 12:19 MIRIAN NOEL [facility]
--- OUTSIDE RECORDS SUMMARY | 2024-04-10 06:57 | XMS_ITS | Encounter Summary ---
Author Name [facility] Organization [facility] Address [address] [place] [address] Care Team Providers Care System Administration Advisor Name Role Phone KODAK MORTON Primary Care [...] CHOIC E PREFE RR Apr 13, 2020 [id number] BOOGIE BAILEY PATIENT ANTHEM [employer] [place] PREFERRED PROVIDER ORGANIZAT ION (PPO) BLUE CHOIC E PREFE RR Apr 13, 2020 [id number] [phone] STEPHANIE BAILEYON PATIENT ANTHEM [employer] [place] PREFERRED PROVIDER ORGANIZAT ION (PPO) BLUE CHOIC E PREFE RR Apr 13, 2020 [id number] [phone] BOOGIE BAILEY PATIENT [place] PREFERRED PROVIDER ORGANIZAT ION (PPO) BLUE CHOIC E PREFE RR Apr 13, 2020 [id number] BOOGIE BAILEY PATIENT PRIME THERAPEUTI CS RX PRESCRIPT ION BCBSI L [place] Apr 13, 2020 [id number] [phone] BOOGIE BAILEY PATIENT [facility] 2018 TRICA RE May 10, 2019 [facility] [id number] BOOGIE BAILEY PATIENT Selected Encounter This section includes the information on record at [place] for the Encounter. Date/Time Encounter Type Encounter Description Reason Provider Source Mar 29, 2024 09:23 AM Outpatient Encounter GENERAL INTERNAL MEDICINE KODAK MORTON Encounter Template Text not used by [place] Plan of Treatment: Future Appointments (+ 6 months) and Future Tests (+/- 45 days) The Plan of Treatment section includes future care activities for the patient from all [place] treatmentfacilities. This section includes future appointments and future orders which are active, pending or scheduled. Future Appointments This section includes appointments that were scheduled to occur 6 months from the date of the Encounter, up to a maximum of 20 appointments. The data comes from all [facility]. Appointment Date/Time Appointment Type Appointme nt Facility Name Apr 01, 2024 10:00 AM AMBULATORY - PSY[facility]IATRY [facility] Apr 18, 2024 11:00 AM AMBULATORY - PSYCHIATRY [facility] Apr 28, 2024 03:00 PM AMBULATORY - MEDICINE [facility] May 05, 2024 11:30 AM AMBULATORY - MEDICINE [facility] May 27, 2024 11:00 AM AMBULATORY - MEDICINE [facility] Active, Pending, and Scheduled Orders This section includes a listing of several types of active, pending, and scheduled orders, including clinic medications orders, diagnostic test orders, procedure orders and consult orders; where the start date of the order is 45 days before the date of the Encounter or 45 days after the date of theEncounter. The data comes from all [facility]. Test Date/Time Test Type Test Details Facility Name Mar 16, 2024 10:22 AM Consult Order [facility] PLASTIC SURG Cons Timing Inspector's [facility] Mar 21, 2024 03:48 PM Procedure Order CP EKG STL CP EKG - STL Proc [facility]ing [facility] Lab Results: +/- 30 days of the encounter This section includes the Chemistry and Hematology Lab Results on record with [place] for the patient. Radiology Reports and Pathology Reports are provided separately, in subsequent sections. Lab Results This section contains the Chemistry/Hematology Results that were resulted 30 days before or 30 daysafter the date of the Encounter. Date/Time Source Result Type Result - Unit Interpretation Reference Range Comment Mar 21, 2024 12:30 PM [facility] COMPREHENSIVE METABOLIC PANEL Specimen Type: PLASMA Comment: No hemolysis noted. Ordering Provider: SUSAN BROWN Report Released Date/Time: Mar 21, 2024 12:23 PM Reporting Lab: [address] [address] Performing Lab: [address] [address] CREATININE 1.00 mg/dL 0.7-1.3 UREA NITROGEN 18.1 [...] 98.2 >60 Mar 21, 2024 12:30 PM [facility] CBC Specimen Type: BLOOD No comment entered. Ordering Provider: SUSAN BROWN Report Released Date/Time: Mar 21, 2024 12:23 PM Reporting Lab: [facility] [address] [facility] [address] Performing Lab: [address] [address] WBC 7.2 10*3/uL 3.6-11.2 RBC 4.24 10*6/uL [...] 10*3/uL 0.00-0.20 Mar 05, 2024 11:10 AM [facility] TROPONIN I Specimen Type: PLASMA No comment entered. Ordering Provider: MUKESH MARINELLI Report Released Date/Time: Mar 05, 2024 11:04 AM Reporting Lab: [address] [address] Performing Lab: [address] [address] TROPONIN I <0.010 ng/mL 0-0.033 Mar 05, 2024 09:50 AM [facility] RESPIRATORY PCR PANEL Specimen Type: NASOPHARYNX Comment: The WolfGIS RP Panel combines nested multiplex PCR and [...] the clinician evaluating the patient. Claudio GREEN, (842) Ordering Provider: MUKESH MARINELLI Report Released Date/Time: Mar 05, 2024 09:39 AM Reporting Lab: [address] [address] Performing Lab: [address] [address] *Adenovirus (BF) Not Detected Not Detected *Coronavirus [...] Not Detected Mar 05, 2024 09:00 AM [facility] CBC Specimen Type: BLOOD No comment entered. Ordering Provider: MUKESH MARINELLI Report Released Date/Time: Mar 05, 2024 08:52 AM Reporting Lab: [address] [address] Performing Lab: [place] [address] [facility] [address] WBC 7.1 10*3/uL 3.6-11.2 RBC 4.84 10*6/uL [...] 10*3/uL 0.00-0.20 Mar 05, 2024 09:00 AM [facility] TROPONIN I Specimen Type: PLASMA Comment: No hemolysis noted. Ordering Provider: MUKESH MARINELLI Report Released Date/Time: Mar 05, 2024 08:52 AM Reporting Lab: [place] [address] Performing Lab: [address] [address] TROPONIN I 0.013 ng/mL 0-0.033 Mar 05, 2024 09:00 AM [facility] TSH (MA-PB) Specimen Type: SERUM No comment entered. Ordering Provider: MUKESH MARINELLI Report Released Date/Time: Mar 05, 2024 09:39 AM Reporting Lab: [address] [address] Performing Lab: [address] [address] TSH 0.283 u[IU]/mL L 0.47-5 FREE T4(REFLEX) 1.10 ng/mL 0.7-1.48 Mar 05, 2024 09:00 AM [facility] COMPREHENSIVE METABOLIC PANEL Specimen Type: PLASMA Comment: No hemolysis noted. Ordering Provider: MUKESH MARINELLI Report Released Date/Time: Mar 05, 2024 08:52 AM Reporting Lab: [place] [address] Performing Lab: [facility] [address] [facility] [address] CREATININE 0.92 mg/dL 0.7-1.3 UREA NITROGEN 15.6 [...] 108.5 >60 Mar 05, 2024 09:00 AM [facility] BRAIN NATRIURETIC PEPTIDE Specimen Type: PLASMA No comment entered. Ordering Provider: MUKESH MARINELLI Report Released Date/Time: Mar 05, 2024 09:39 AM Reporting Lab: [facility] [address] [facility] [address] Performing Lab: [address] [address] BRAIN NATRIURETIC PEPTIDE 16.2 pg/mL 0-100 Social History: Smoking Status (Most current) and Tobacco Use (All prior to encounter date) This section includes the most current, and the historical, smoking and tobacco- related health factors from the [place] facility where the Encounter took place. Current Smoking Status This section includes the most current smoking, or tobacco-related health factor, from the [place] facility where the Encounter took place. Date/Time Current Smoking Status Comment Facil tiffany Feb 26, 2021 03:59 PM VA-TOBACCO NEVER USED [facility] Radiology Reports: +/- 30 days of [...] the Encounter. The data comes from all [place] treatment facilities. Date/Time Radiology Report Provider Source Mar 21, 2024 12:34 PM CHEST X-RAY, 2 VIEWS: JORDYN BAILEY [id number] -1985 M Exm Date: MAR 21, 2024@12:34 Req Phys: SUSAN BROWN Loc: [facility]-EMERGENCY DEPT 2ND SHIFT (R Img Loc: [facility]-MAIN RADIOLOGY SUITE Service: Unknown [address] [address] (Case [id number] COMPLETE) CHEST X-RAY, 2 VIEWS (RAD Detailed) CPT:24490 Reason for Study: cough, SOB Clinical History: Report Status: Verified Date Reported: MAR 21, 2024 Date Verified: MAR 21, 2024 [employer] E-Sig:/ES/Lynn Castro MD Report: CHEST X-RAY, 2 VIEWS CASE #: [id number] DATE:03/21/2024 12:39 PM CLINICAL HISTORY:cough, SOB COMPARISON: 03/05/2024, 05/20/2023, 05/28/2022 TECHNIQUE: CHEST X-RAY, 2 VIEWS Impression: FINDINGS/IMPRESSION: Low lung volumes. Top normal heart size. No CHF. Bibasilar atelectasis versus pneumonia. Correlate clinically. No pleural effusion. No pneumothorax. Primary Interpreting Staff: Lynn Castro MD, Radiologist (Exercise Science Internship) /LYNN ONEILL [facility] Mar 05, 2024 10:[address] PE CHEST W/3D: JORDYN BAILEY [id number] -1985 M Exm Date: MAR 05, 2024@10:00 Req Phys: MUKESH MARINELLI Loc: -EMERGENCY DEPT 2ND SHIFT (R Img Loc: -CT IMAGING [facility] Service: Unknown [address] [address] (Case [id number] COMPLETE) CT THORAX W/CONT (PE) (CT Detailed) CPT:46209 Contrast Media : unspecified contrast media Reason [...] 05, 2024 Date Verified: MAR 05, 2024 [employer] E-Sig: Report: CT THORAX W/CONT (PE) [PRINTSET] HISTORY: chest pain, tachycardia COMPARISON: 02/12/2024 TECHNIQUE: Helical CT of the chest, with multiplanar reformats including maximum intensity projection (MIP) reconstructions, was performed at the local [place] facility. 1529 images were received by the [place] National Teleradiology Program (NTP) for interpretation. RADIATION [...] excluded. 3. Cardiomegaly. READING PHYSICIAN: Wilfred Roberts -[id number] 03/05/2024 7:32 [facility] National Teleradiology Program [phone] (For Medical Practitioner Use Only) Attention Patients / Veterans: If you have questions or concerns about these test results, please contact your ordering provider or primary care team. Primary Interpreting Staff: RADIOLOGY,OUTSIDE SERVICE, Staff Physician / RADIOLOGY,OUTSIDE SERVICE [facility] Mar 05, 2024 08:59 AM CHEST PORTABLE: JORDYN BAILEY [id number] -1985 M Exm Date: MAR 05, 2024@08:59 Req Phys: MUKESH MARINELLI Loc: [facility]ER[facility]Y DEPT 2ND SHIFT (R Img Loc: [facility] RADIOLOGY SUITE Service: [address] [address] (Case [id number] COMPLETE) CHEST PORTABLE (RAD Detailed) CPT:33722 Proc Modifiers : Portable Reason for Study: chest pain Clinical History: Report Status: Verified Date Reported: MAR 05, 2024 Date Verified: MAR 05, 2024 [employer] E-Sig: Report: CHEST PORTABLE Comparison: 05/20/2023, 02/12/2024 Clinical History: chest pain The study was performed and supervised at the local [place] facility, and subsequently transmitted to [facility] NTP (National Teleradiology Program) for interpretation. Impression: Lungs: Small left effusion with left basilar opacity which may represent atelectasis or consolidation.. Cardiomediastinal silhouette: No enlargement of the cardiomediastinal silhouette. Bones and soft tissues: No acute finding. READING PHYSICIAN: Sandeep Kraft M.D. -[id number] 03/05/2024 7:29 PST [facility] National Teleradiology Program [phone] (For Medical Practitioner Use Only) Attention Patients / Veterans: If you have questions or concerns about these test results, please contact your ordering provider or primary care team. Primary Interpreting Staff: RADIOLOGY,OUTSIDE SERVICE, Staff Physician / RADIOLOGY,OUTSIDE SERVICE [facility] Encounter Notes: All associated encounter notes This section contains the clinical notes associated to the Encounter. Date/Time Encounter Note(s) Provider Source Apr 01, 2024 09:57 AM ADDENDUM: LOCAL TITLE: Addendum STANDARD TITLE: ADDENDUM DATE OF NOTE: APR 01, 2024@09:57:58 ENTRY DATE: APR 01, 2024@09:57:59 AUTHOR: CYNDEE LOYOLA COSIGNER: URGENCY: STATUS: COMPLETED Discharge Disposition Date of discharge: Mar Disposition Discharge to home Please review attached DC summary and place any necessary referrals/consults REE to avoid non-payment for follow-up services. RECORDS RECEIVED - Sent to [facility] for upload to CPRS. Records shared securely with PACT team via handoff e- mail. [facility] Referral ID: [id number] Status: Notify - Approved for 1702 NIR ADVANCED MALTED MILK SUPERVISOR Signed: 04/01/2024 10:00 Receipt Acknowledged By: 04/01/2024 12:18 // CHICO BECKWITH MSM, RN,[facility] REGISTERED NURSE for NOELLE FLORES * AWAITING SIGNATURE * KODAK MORTON T --- Original Document --- 03/26/24 [facility] SELF PRESENTING CARE COORD PLAN 657 STL: Emergency Notification Intake Date Presenting to the Facility: Mar Method of Contact: Notified from INBEP worklist Notification ID: [id number] [facility] Referral #: [id number] Clinical Review [facility] Name: Hospital: [facility] Address: [address] [place] [address] City: [place] State: [place] Zip Code: [address] Community Facility Point of Contact: Name: Phone: Chief complaint: CHEST PAIN WHEN I INHALE, BACTERIAL PNEUMONIA Primary Diagnosis: Disposition Unknown at time of intake note entry Faxed request for records to [facility]. /july NIR ADVANCED MALTED MILK SUPERVISOR Signed: 03/29/2024 09:28 CYNDEE LOYOLA [facility] Mar 26, 2024 09:23 AM NONVA NOTE: LOCAL TITLE: [facility] SELF PRESENTING CARE COORD PLAN STANDARD TITLE: NONVA NOTE DATE OF NOTE: MAR 26, 2024@09:23 ENTRY DATE: MAR 29, 2024@09:23:49 AUTHOR: CYNDEE LOYOLA EXP COSIGNER: URGENCY: STATUS: COMPLETED [facility] SELF PRESENTING CARE COORD PLAN 657 STL Has ADDENDA Emergency Notification Intake Date Presenting to the Facility: Mar Method of Contact: Notified from ECR worklist Notification ID: [id number] [facility] Referral #: [id number] Clinical Review [facility] Name: Hospital: [facility] Address: [address] City: [place] State: [place] Zip Code: [address] Community Facility Point of Contact: Name: Phone: Chief complaint: CHEST PAIN WHEN I INHALE, BACTERIAL PNEUMONIA Primary Diagnosis: Disposition Unknown at time of intake note entry Faxed request for records to above hospital. // CYNDEE LOYOLA ADVANCED MALTED MILK SUPERVISOR Signed: 03/29/2024 09:28 04/01/2024 ADDENDUM STATUS: COMPLETED Discharge Disposition Date of discharge: Mar Disposition Discharge to home Please review attached DC summary and place any necessary referrals/consults REE to avoid non-payment for follow-up services. RECORDS RECEIVED - Sent to [facility] for upload to CPRS. Records shared securely with PACT team via handoff e- mail. [facility] Referral ID: [id number] Status: Notify - Approved for 1702 NIR ADVANCED MALTED MILK SUPERVISOR Signed: 04/01/2024 10:00 Receipt Acknowledged By: 04/01/2024 12:18 /nataliia/ CHICO BECKWITH MSM, RN,[facility] REGISTERED NURSE for NOELLE FLORES * AWAITING SIGNATURE * KODAK MORTON 04/04/2024 ADDENDUM STATUS: COMPLETED Records r/t this episode of care sent to [facility] for scanning. /nataliia/ ANDRIY FARRIS ADVANCED MALTED MILK SUPERVISOR Signed: 04/04/2024 08:10 CYNDEE LOYOLA [facility]
--- OUTSIDE RECORDS SUMMARY | 2024-04-10 07:00 | XMS_ITS | Encounter Summary ---
Author Organization [facility] Address [address] [place] [address]. [place], [place] [address] [place] [address] Care Team Providers Care Leadership Program Associate Name Role Phone Preethi Hall Primary Care Provider [phone] Encounter Details Date Type Department Care Team [...] on filedocumented in this encounter Care Teams Leadership Program Associate Relationship Specialty Start Date End Date Preethi Hall APNP [address] [place] [address] PCP - General Nurse Practitioner Family 09/21/1911/12 documented as of this encounter
--- OUTSIDE RECORDS SUMMARY | 2024-04-10 07:00 | XMS_ITS | Encounter Summary ---
Author Organization [facility] Address [address] [place] [address]. [place], [place] [address] [place] [address] Care Team Providers Care Tiler'S Assistant Name Role Phone Preethi Hall Primary Care Provider [phone] Reason for Referral * Audiology Exam (Routine) - Closed Specialty Diagnoses / Procedures Referred By Sugar espinal Referred To Contact AUDIOLOGY Diagnoses Sensorineural hearing loss (SNHL) of right ear, unspecified hearing status on contralateral side Preethi Hall APNP [address] [facility] [address] [place] [address] Phone: tel: fax: Referral ID Status Reason Start Date Expiration Date V isits Requested Visits Authorized [id number] Closed Specialty Services 09/23/2019 10/22/2020 1 1 * (Routine) - Closed Specialty Diagnoses / Procedures Referred By Sugar espinal Referred To Contact Diagnoses Infected epidermoid cyst Procedures Incision and Drainage Preethi Hall APNP [address] [facility] [address] [place] [address] Phone: tel: fax: Referral ID Status Reason Start Date Expiration Date Visits Re quested Visits Authorized [id number] Closed 09/23/2019 10/22/2020 1 1 Reason for [...] Description 09/21/2019 2:40 PM CDT Office Visit [facility] Family & Internal Medicine [facility] [address] [place] [address] Preethi Hall, JOSE [address] [facility] [address] [place] [address] [place] (bump on back states [...] file Gets together: Not on file Attends rastafarian service: Not on file Active member of [...] side documented in this encounter Care Teams Tiler'S Assistant Relationship Specialty Start Date End Date Preethi Hall APNP [address] [address] PCP - General Nurse Practitioner Family 09/21/1911/12 documented as of this encounter
--- OUTSIDE RECORDS SUMMARY | 2024-04-10 07:00 | XMS_ITS | Encounter Summary ---
Author Organization [facility] Address [address] [place] [address]. [place], [place] [address] [place] [address] Care Team Providers Care Metal Miner Name Role Phone Preethi Hall Primary Care Provider [phone] Encounter Details Date Type Department Care Team [...] COVID-19? No / Unsure 05/13/2020 10:32 AM ESCROW PROCESSOR documented as of this encounter Plan of Treatment Not on file documented as of this encounter Visit Diagnoses Not on filedocumented in this encounter Additional Health Concerns Infection Onset Date Last Indicated Resolved Time COVID-19 Rule Out 05/13/2020 05/13/2020 05/13/2020 12:25 PM ESCROW PROCESSOR documented as of this encounter Care Teams Metal Miner Relationship Specialty Start Date End Date Preethi Hall APNP [address] [address] PCP - General Nurse Practitioner Family 09/21/1911/12 documented as of this encounter
--- OUTSIDE RECORDS SUMMARY | 2024-04-10 07:00 | XMS_ITS | Encounter Summary ---
Author Organization [facility] Address [address] [place] [address]. [place], [place] [address] [place] [address] Care Team Providers Care Ethanol Operator Name Role Phone Preethi Hall Primary Care Provider [phone] Encounter Details Date Type Department Care Team (Late st Contact Info) Description 07/04/2020 5:26 PM CDT - 07/04/2020 11:59 PM CDT Hospital Encounter [facility] [address] [place] [address] Sergo Brand MD Discharge Disposition: Home or [...] URINE CLEAN CATCH 07/04/2020 5:26 PM CDT [facility] SPECIAL REQUESTS NO SPECIAL REQUEST 07/04/2020 5:26 PM CDT [facility] CULTURE RESULT NO GROWTH 2 DAYS 07/06/2020 7:56 AM CDT [facility] URINE SPECIMEN OBTAINED BY CLEAN CATCH PROCEDURE / Unknown 07/04/2020 5:26 PM CDT 07/04/2020 5:34 PM CDT us Sergo Brand MD MICROBIOLOGY - GENERAL O RDERABLES Final Result Performing Organization Address City/State/[facility] Co de Phone Number [facility] [address] [place] [address], [facility] [address] [place] [address], documented in this encounter Visit Diagnoses Diagnosis UTI symptoms documented in this encounter Care Teams Ethanol Operator Relationship Specialty Start Date End Date Preethi Hall APNP [address] [address] PCP - General Nurse Practitioner Family 09/21/19 806/05 documented as of this encounter
--- OUTSIDE RECORDS SUMMARY | 2024-04-10 07:00 | XMS_ITS | Encounter Summary ---
Author Organization [facility] Address [address] [place] [address]. [place], [place] [address] [place] [address] Care Team Providers Care Pastry Cook Helper Name Role Phone Preethi Hall Primary Care Provider [phone] Encounter Details Date Type Department Care Team [...] on filedocumented in this encounter Care Teams Pastry Cook Helper Relationship Specialty Start Date End Date Preethi Hall APNP [address] [place] [address] PCP - General Nurse Practitioner Family 09/21/19 8/06/05 documented as of this encounter
--- OUTSIDE RECORDS SUMMARY | 2024-04-10 07:00 | XMS_ITS | Encounter Summary ---
Author Organization [facility] Address [address] [place] [address]. [place], [place] [address] [place] [address] Care Team Providers Care Entertainer Or Variety Artist Name Role Phone Preethi Hall Primary Care Provider [phone] Encounter Details Date Type Department Care Team [...] on filedocumented in this encounter Care Teams Entertainer Or Variety Artist Relationship Specialty Start Date End Date Preethi Hall APNP [address] [place] [address] PCP - General Nurse Practitioner Family 09/21/19 8/06/05 documented as of this encounter
--- OUTSIDE RECORDS SUMMARY | 2024-04-10 07:00 | XMS_ITS | Encounter Summary ---
Author Organization [facility] Address [address] [place] [address]. [place], [place] [address] [place] [address] Care Team Providers Care Sales Property Manager Name Role Phone Preethi Hall Primary Care Provider [phone] Reason for Visit * Reason Comments Cough Since yesterday, non -productive Chest Pain Sharp pain to center of chest and in back since yesterday Earache Left x 2 weeks Encounter Details Date Type Department Care Team (Late st Contact Info) Description 05/13/2020 10:38 AM NURSE PLASTICS - 05/13/2020 12:06 PM [facility] Emergency [facility] Emergency Room [id number] [place] [address] Andre Herring PA [address] [place] [address] Cough (Since yesterday, non-productive); Chest Pain (Sharp [...] COVID-19? No / Unsure 05/13/2020 10:32 AM NURSE PLASTICS documented as of this encounter Last Filed Vital Signs Vital Sign Reading Time Taken Comments Blood Pressure 140/77 05/13/2020 10:39 AM NURSE PLASTICS Pulse 91 05/13/2020 10:39 AM NURSE PLASTICS Temperature 36.6 ??C (97.8 ??F) 05/13/2020 10:[address] Respiratory Rate 18 05/13/2020 10:39 AM NURSE PLASTICS Oxygen Saturation 99% 05/13/2020 10:39 AM NURSE PLASTICS Inhaled Oxygen Concentration - - Weight 95.3 kg (210 lb) 05/13/2020 10:39 AM NURSE PLASTICS Height 180.3 cm (5' 11 ) 05/13/2020 10:39 AM NURSE PLASTICS Body Mass Index 29.29 05/13/2020 10:39 AM NURSE PLASTICS documented in this encounter Discharge Instructions * Discharge Instructions* GURINDER Benson - 05/13/2020 11:46 AM NURSE PLASTICS Use hldl-szt-vrjfyig ibuprofen or Tylenol as directed for body aches. Make sure to drink adequate amount of fluids throughout the day. We will notify you of test results you may also review test results using [employer]. Follow-up with your primary care provider in 5 to 7 days. Return emergency department symptoms worsen or new concerns. E PLASTICS * Attachments The following attachments cannot be sent through Care Everywhere. * Cough, Runny Nose, and the Common Cold Discharge Instructions (German) documented in this encounter Medications at Time of Discharge guaiFENesin ER 600 MG 12 hr tablet Take 1 tablet (600 mg total) by mouth 2 (two) times daily. 28 tablet 05/13/2020 07/04/2020 documented as of this encounter Progress Notes * GURINDER Wallis - 05/13/2020 12:06 PM CST S/w pt regarding negative results. No concerns. Reiterated return precautions E PLASTICS documented in this encounter ED Notes * UGRINDER Benson - 05/13/2020 10:53 AM CST ED [...] encounter of 05/13/20 ECG 12 lead Narrative [facility] Test Date: 2020-05-13 Pat Name: JORDYN PINEDA Department: Room: [facility] Gender: Male Erp Technical Lead: : 1985 Requested By: ANDRE HERRING Order Number: [id number] Reading MD: Measurements Intervals [place] Rate: 85 P: 28 LA: 171 QRS: -11 QRSD: 97 T: 6 QT: 332 QTc: 396 Interpretive Statements SINUS RHYTHM MODERATE VOLTAGE CRITERIA FOR LVH, CONSIDER NORMAL VARIANT [MEETS CRITERIA IN ONE OF: R(aVL), S(V1), R(V5), R(V5/V6)+S(V1)] No previous ECG available for comparison LABORATORY STUDIES: No results found for this visit on 05/13/20. IMAGING STUDIES XR CHEST PA+LAT Final Result by User, [id number] (05/13 1150) TWO-VIEW CHEST RADIOGRAPH 05/13/2020: HISTORY: [...] 28 tablet, Refills: 0 Class: Eprescribe Pharmacy: [id number] [place] [address] (Ph #: [phone]) Disposition: Discharge Follow-Up: JOSE Danielson [address] [place] [address] Schedule an appointment as soon as possible for a visit in 1 week As needed GURINDER Benson 05/13/2020 GURINDER Benson 05/13/20 1153 Cosigned by Constanza Hartmann MD at 05/13/2020 12:43 PM NURSE PLASTICS E PLASTICS E PLASTICS * Kristopher Campo RN - 05/13/2020 10:46 AM CSTSummary: Cough/Chest Pain/Ear Pain Pt to ED via POV with c/o cough since yesterday, non-productive, also states sharp pain to center of chest rates at 6/10 and in back since yesterday, and ear pain to the left x 2 weeks E PLASTICS documented in this encounter Plan of Treatment Not on file documented as of this encounter Procedures Procedure Name Priority Date/Time Associated Diagnosis Comments CORONAVIRUS (COVID-19) ANTIGEN DIRECT OPTICAL STAT 05/13/2020 12:00 PM NURSE PLASTICS XR CHEST PA+LAT STAT 05/13/2020 11:10 AM NURSE PLASTICS ECG 12-LEAD Routine 05/13/2020 11:03 AM NURSE PLASTICS documented in this encounter Results * CORONAVIRUS (COVID-19) ANTIGEN [RAPID IN HOUSE TEST] (05/13/2020 12:00 PM NURSE PLASTICS) CORONAVIRUS ANTIGEN IA NEGATIVE NEGATIVE 05/13/2020 12:25 PM NURSE PLASTICS [facility] Comment: NEGATIVE RESULTS DO NOT [...] LABORATORIES. SPECIMEN TYPE NASAL 05/13/2020 12:06 PM [facility] FIRST TEST YES 05/13/2020 12:06 PM [facility] EMPLOYED IN HEALTHCARE NO 05/13/2020 12:06 PM [facility] SYMPTOMATIC DEFINED BY CDC YES 05/13/2020 12:06 PM [facility] DATE OF SYMPTOM ONSET 2020051205/13/2020 12:06 PM [facility] HOSPITALIZATION STATUS NO 05/13/2020 12:06 PM [facility] PATIENT IN ICU UNKNOWN 05/13/2020 12:08 PM [facility] RESIDENT OF [facility] NO 05/13/2020 12:06 PM NURSE PLASTICS [facility] Specimen from nose (specimen) NASAL STRUCTURE / Unknown 05/13/2020 12:00 PM NURSE PLASTICS Andre FAIRCHILD MICROBIOLOGY - GENERAL ORDE RABLES Final Result [facility] [address] [place] [address], * XR CHEST PA+LAT (05/13/2020 11:10 AM NURSE PLASTICS) Anatomical Region Laterality Modality Chest Radiographic Nella ging 05/13/2020 11:4 5 AM NURSE PLASTICS Impressions 05/13/2020 11:47 AM NURSE PLASTICS IMPRESSION: No evidence of acute cardiopulmonary disease. Normal heart size and pulmonary vascularity. No consolidation or large pleural effusion. No pneumothorax. Slight thoracolumbar curve. Interpreted By: Josy Lin, 05/13/2020 11:45 AM Narrative 05/13/2020 11:47 AM NURSE PLASTICS TWO-VIEW CHEST RADIOGRAPH 05/13/2020: HISTORY: Cough. Chest [...] * ECG 12 lead (05/13/2020 11:03 AM NURSE PLASTICS) 05/13/2020 11:0 3 AM NURSE PLASTICS Narrative [facility] RAD - 05/14/2020 7:05 AM NURSE PLASTICS ?[facility] ? Test Date: ?2020-05-13 Pat Name: ? JORDYN PINEDA ? Department: ? Room: ? TG1TG1 Gender: ? Male ? Erp Technical Lead: ?? : ?1985 ? Requested By: ANDRE HERRING Order Number: [id number] ? Reading MD: ?? Dmitri Collins ? Measurements Intervals ?[place] ? Rate: ? 85 ? P: ?28 LA: ? 171 ?QRS: ?-11 QRSD: ? 97 ? T: ?6 QT: ? 332 ? QTc: ?396 ? Interpretive Statements SINUS RHYTHM MODERATE VOLTAGE CRITERIA FOR LVH, CONSIDER NORMAL VARIANT ??[MEETS CRITERIA IN ONE OF: R(aVL), S(V1), R(V5), R(V5/V6)+S(V1)] No previous ECG available for comparison E PLASTICS Procedure Note Dmitri Collins MD - 05/14/2020 [facility] Test Date: 2020-05-13 Pat Name: JORDYN PINEDA Department: Room: [facility] Gender: Male Erp Technical Lead: : 1985 Requested By: ANDRE HERRING Order Number: [id number] Luigi MD: Dmitri Collins Measurements Intervals [place] Rate: 85 P: 28 LA: 171 QRS: -11 QRSD: 97 T: 6 QT: 332 QTc: 396 Interpretive Statements SINUS RHYTHM MODERATE VOLTAGE CRITERIA FOR LVH, CONSIDER NORMAL VARIANT [MEETSCRITERIA IN ONE OF: R(aVL), S(V1), R(V5), R(V5/V6)+S(V1)] No previous ECG available for comparison E PLASTICS us Andre FAIRCHILD ECG ORDERABLES Final Resul t [facility] ([facility] documented in this encounter Visit Diagnoses Diagnosis Viral URI with cough- Primary Acute upper respiratory infections of unspecified site Chest congestion Other symptoms involving respiratory system and chest documented in this encounter Additional Health Concerns Infection Onset Date Last Indicated Resolved Time COVID-19 Rule Out 05/13/2020 05/13/2020 05/13/2020 12:25 PM NURSE PLASTICS documented as of this encounter Care Teams Sales Property Manager Relationship Specialty Start Date End Date Preethi Hall APNP [address] [place] [address] PCP - General Nurse Practitioner Family 09/21/1911/12 documented as of this encounter
--- OUTSIDE RECORDS SUMMARY | 2024-04-10 07:00 | XMS_ITS | Encounter Summary ---
Author Organization [facility] Address [address] [place] [address]. [place] [address] [place] [address] Care Team Providers Care Garland Maker Name Role Phone Preethi Hall Primary Care Provider [phone] Reason for Visit * Reason Comments Flank Pain Encounter Details Date Type Department Care Team (Latest Contact Info) Description 08/28/2021 8:08 AM CDT - 08/28/2021 9:17 AM CDT Hospital Encounter [facility] [address] [place] [address] Adama Negro PA [address] [place] [id number] Flank Pain Discharge Disposition: Home or Self [...] sent through Care Everywhere. * Flank Pain (Palauan) documented in this encounter Medications at Time [...] GURINDER Dean - 08/28/2021 8:44 AM CDT [place], [place] HISTORICAL INFORMATION Primary Care Doctor: JOSE Danielson Patient information was obtained primarily from the patient, nursing notes, History/Exam limitations: None Provider at Bedside Date/Time Event User Comments 08/28/21 0811 Provider at Bedside Assessing Patient ADAMA NEGRO CHIEF COMPLAINT Flank Pain HPI Yosi Pineda is a 36-year-old male who presents to the [facility] care for left sided flankpain, [...] and validated. Please refer to the exit music writer discharge instructions for details surrounding the discharge [...] URINE CLEAN CATCH 08/28/2021 8:29 AM CDT [facility] COLOR (U) BROWN 08/29/2021 11:07 AM CDT [facility] TRANSPARENCY CLOUDY 08/29/2021 11:07 AM CDT [facility] SPECIFIC GRAVITY (U) >1.030(H) 1.001 - 1.030 08/29/2021 11:07 AM CDT [facility] U PH 5.5 5.0 - 9.0 08/29/2021 11:07 AM CDT [facility] LEUKOCYTES (U) NEGATIVE NEGATIVE 08/29/2021 11:07 AM CDT [facility] NITRITES NEGATIVE NEGATIVE 08/29/2021 11:07 AM CDT [facility] PROTEIN (U) 100(H) <30 MG/DL 08/29/2021 11:07 AM CDT [facility] URINE GLUCOSE NEGATIVE NEGATIVE MG/DL 08/29/2021 11:07 AM CDT [facility] KETONES MG/DL (U) TRACE(A) NEGATIVE MG/DL 08/29/2021 11:07 AM CDT [facility] UROBILINOGEN 0.2(A) NEGATIVE MG/DL 08/29/2021 11:07 AM CDT [facility] BILIRUBIN (U) SMALL(A) NEGATIVE MG/DL 08/29/2021 11:07 AM CDT [facility] BLOOD (U) LARGE(A) NEGATIVE 08/29/2021 11:07 AM CDT [facility] URINE SPECIMEN OBTAINED BY CLEAN CATCH PROCEDURE / Unknown 08/28/2021 8:29 AM CDT us Adama FAIRCHILD URINE ORDERABLES Final Res ult [place] [address] [place] [address], documented in this encounter Visit Diagnoses Diagnosis [...] RN) documented in this encounter Care Teams Garland Maker Relationship Specialty Start Date End Date Preethi Hall APNP [address] [place] [address] PCP - General Nurse Practitioner Family 09/21/1911/12 documented as of this encounter
--- OUTSIDE RECORDS SUMMARY | 2024-04-10 07:00 | XMS_ITS | Encounter Summary ---
Author Organization [facility] Address [facility]. [place], [place] [address] [place] [address] Care Team Providers Care Office Clerk Name Role Phone Preethi Hall Primary Care Provider [phone] Reason for Visit * Reason Comments Acute [...] Description 10/31/2020 4:00 PM CDT Office Visit [facility] Family & Internal Medicine [address] [address] Sergo Reed MD Acute Note [...] Gatherings with Friends and Family: ??? Attends Orthodoxy Services: ??? Active Member of Clubs or [...] tube documented in this encounter Care Teams Office Clerk Relationship Specialty Start Date End Date Preethi Hall APNP [address] [place] [address] PCP - General Nurse Practitioner Family 09/21/1911/12 documented as of this encounter
--- OUTSIDE RECORDS SUMMARY | 2024-04-10 07:00 | XMS_ITS | Encounter Summary ---
Author Organization [facility] Address [address] [place] [address]. [place], [place] [address] [place] [address] Care Team Providers Care Hamper Maker Name Role Phone Preethi Hall Primary Care Provider [phone] Encounter Details Date Type Department Care Team [...] on filedocumented in this encounter Care Teams Hamper Maker Relationship Specialty Start Date End Date Preethi Hall APNP [address] [place], [place] [address] PCP - General Nurse Practitioner Family 09/21/19 8/06/05 documented as of this encounter
--- OUTSIDE RECORDS SUMMARY | 2024-04-10 07:00 | XMS_ITS | Encounter Summary ---
Author Organization [facility] Address [address] [place] [address]. [place], [place] [address] [place] [address] Care Team Providers Care Bottom Cager Name Role Phone Preethi Hall Primary Care Provider [phone] Encounter Details Date Type Department Care Team (Late st Contact Info) Description 12/16/2020 - 12/16/2020 3:13 PM CDT Emergency [facility] [address] [facility] [address] [place], [place] [id number] Discharge Disposition: Left Against Medical Advice Social [...] on filedocumented in this encounter Care Teams Bottom Cager Relationship Specialty Start Date End Date Preethi Hall APNP [address] [address] PCP - General Nurse Practitioner Family 09/21/1911/12 documented as of this encounter
--- OUTSIDE RECORDS SUMMARY | 2024-04-10 07:00 | XMS_ITS | Clinical Summary ---
Author Organization [facility] Address [address] [place] [address]. [place] [address] [place] [address] Care Team Providers Care Senior Mechanical Design Engineer Name Role Phone Patricia Milligan PA-C Primary Care Provider [phone] Allergies Active Allergy Reactions Criticality Noted Date [...] patient's age to complete this topic Insurance [facility] Care Teams Senior Mechanical Design Engineer Relationship Specialty Start Date End Date Patricia Milligan PA-C [address] [facility] [address] [place] [address] PCP - General PHYSICIAN IN SERVICE EDUCATION TEACHER 12/03/22
--- OUTSIDE RECORDS SUMMARY | 2024-04-10 07:00 | XMS_ITS | Encounter Summary ---
Author Organization [facility] Address [address] [place] [address]. [place], [place] [address] [place] [address] Care Team Providers Care Trains Dispatcher Supervisor Name Role Phone Preethi Hall Primary Care Provider [phone] Reason for Visit * Reason Comments UTI frequency with urina tion but not going as much x 3 days, pain a few weeks ago in lower back (has had a kidney stone before) Encounter Details Date Type Department Care Team (Late st Contact Info) Description 07/04/2020 3:20 PM CDT Office Visit [facility] [address] [place] [address] Sergo Brand MD UTI (frequency [...] file Gets together: Not on file Attends orthodoxy service: Not on file Active member of [...] NEGATIVE U KETONES NEGATIVE NEGATIVE MG/DL Specific Gillespie (U) 1.020 1.001 - 1.035 BLOOD MODERATE [...] URINE CLEAN CATCH 07/04/2020 5:26 PM CDT [facility] SPECIAL REQUESTS NO SPECIAL REQUEST 07/04/2020 5:26 PM CDT [facility] CULTURE RESULT NO GROWTH 2 DAYS 07/06/2020 7:56 AM CDT [facility] URINE SPECIMEN OBTAINED BY CLEAN CATCH PROCEDURE / Unknown 07/04/2020 5:26 PM CDT 07/04/2020 5:34 PM CDT us Sergo Brand MD MICROBIOLOGY - GENERAL O RDERABLES Final Result [facility] [address] [place] [address], [place] [phone] [facility] [address] [place] [address], [place] [phone] * URINALYSIS AUTO DIP (07/04/2020 3:09 PM CDT) COLOR (U) DARK YELLOW [id number] TRANSPARENC[facility] CLOUDY MG-[address], [place] GLUCOSE (U) NEGATIVE NEGATIVE MG/DL [id number] [place] BILIRUBIN (U) NEGATIVE NEGATIVE MG-[address], [place] KETONES MG/DL (U) NEGATIVE NEGATIVE MG/DL MG-[address] SPECIFIC GRAVITY (U) 1.020 1.001 - 1.035 MG-[address] BLOOD (U) MODERATE (2+ Hemolyzed, About 50 rbc/uL) NEGATIVE MG-[address] U PH 7.0 5.0 - 9.0 MG-[address] [place] PROTEIN (U) NEGATIVE NEGATIVE mg/dL MG-06598 [facility] [place] UROBILINOGEN 1.0 0.2 - 1.0 EU/dL = mg/dL MG-00429 [facility] [place] NITRITES NEGATIVE NEGATIVE MG/DL MG-85022 [facility] [place] LEUKOCYTES (U) NEGATIVE NEGATIVE MG-12 860 [facility] [place] URINE SPECIMEN OBTAINED BY CLEAN CATCH PROCEDURE / Unknown 07/04/2020 3:09 PM CDT us Sergo Brand MD URINE ORDERABLES Final R esult -[id number] [facility] [place] [place] [address] [place] [address], documented in this encounter Visit Diagnoses Diagnosis Kidney stone- Primary Calculus of kidney UTI symptoms documented in this encounter Care Teams Trains Dispatcher Supervisor Relationship Specialty Start Date End Date Preethi Hall APNP [address] [facility] [address] [place] [address] PCP - General Nurse Practitioner Family 09/21/1911/12 documented as of this encounter
--- OUTSIDE RECORDS SUMMARY | 2024-04-10 07:01 | XMS_ITS | Encounter Summary ---
Author Organization [facility] Address [address] [place] [address] Care Team Providers Care Clinical Sales Consultant Name Role Phone Unavailable Primary Care Provider Unavailabl e Encounter Details Date Type Department Care Team (Late st Contact Info) Description 07/07/2020 11:45 AM CDT Rapid Evaluation [facility] Community Testing [facility] [address] [place], [place] [id number] Social History Tobacco Use Types Packs/Day Years [...]
--- OUTSIDE RECORDS SUMMARY | 2024-04-10 07:01 | XMS_ITS | Encounter Summary ---
Author Organization [facility] Address [address] [place] [address] Care Team Providers Care Sock And Stocking Ironer Name Role Phone Unavailable Primary Care Provider Unavailabl e Encounter Details Date Type Department Care Team (Late st Contact Info) Description 07/07/2020 Lab Requisition [facility] Health Community Testing [facility] [address] [place], [place] [id number] Riccardo Finney MD [address] [place] [address] [address] [place] [address] Social History Tobacco Use Types Packs/Day Years [...]
--- OUTSIDE RECORDS SUMMARY | 2024-04-10 07:01 | XMS_ITS | Clinical Summary ---
Author Organization [facility] Care Team Providers Care Concrete Block Layer Name Role Phone Unavailable Primary Care Provider [...]
--- OUTSIDE RECORDS SUMMARY | 2024-04-10 13:45 | XMS_ITS | Continuity of Care Document ---
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 Name Role Phone DOD-KS Unavailable Unavailable Problems Combined list of problems [...] left knee Active 10/08/19 17 Condition DoD dermatophytosis tinea cruris perianal area Active Condition DoD Aftercare Active Condition DoD skin abscess Inactive Condition DoD Abdomen Mass (___ cm) Active Condition DoD abdominal abscess Inactive Condition DoD tendonitis shoulder Active Condition DoD epididymitis left Inactive Condition DoD testicular pain Active Condition DoD esophagitis Active Condition [facility] visit for: administrative purpose Inactive Condition DoD pharyngitis acute Inactive Condition DoD assessment of patient condition work-related Inactive Condition ASSESSMENT OF PATIENT CONDITION WORK-RELATED (INITIAL POST-DEPLOYME NT ASSESSMENT: DOCUMENTED ON [id number]): 27 y/o M 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 No complaints/co ncerns. No SI/HI. No s/s TBI/PTSD. 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 [facility] visit for: services physical pre-deployment Inactive Condition DoD Need For Prophylactic Measure Inactive Condition DoD skin disorders Inactive Condition DoD pain in upper arms Active Condition DoD limb pain Active Condition DoD Other Physical Therapy Active Condition DoD joint pain, localized in the right shoulder Active Condition DoD urticaria Active Condition DoD joint pain, localized in the shoulder Inactive Condition DoD upper respiratory infection Inactive Condition [facility] visit for: services physical Inactive Condition DoD lumbago Inactive Condition DoD acute lymphadenitis inguinal left Inactive Condition DoD lower back pain Inactive Condition DoD astigmatism Inactive Condition Mild. Optional Rx given. DoD Allergic rhinitis Active Condition [facility] Chronic back pain Active Condition [facility] Exposure to potentially hazardous substance Active Condition [facility] Insomnia Active Condition [facility] Major depressive disorder Active Condition [facility] Obesity Active Condition [facility] Posttraumatic stress disorder Active Condition [facility] Sleep apnea Active Condition [facility] Steatosis of liver Active Condition [facility] Diagnosis: ICD-10-CM Z63.0 Problems in relationship with spouse or partner Active Diagnosis [facility] Diagnosis: ICD-10-CM Z53.21 Proc/trtmt not crd out d/t pt lv bef seen by [facility] Active Diagnosis [facility] Diagnosis: ICD-10-CM G56.00 Carpal tunnel syndrome, unspecified upper limb Active Diagnosis [facility] Diagnosis: ICD-10-CM G56.03 Carpal tunnel syndrome, bilateral upper limbs Active Diagnosis [facility] Diagnosis: ICD-10-CM Z71.9 Counseling, unspecified Active Diagnosis [facility] Diagnosis: ICD-10-CM R07.9 Chest pain, unspecified Active Diagnosis [facility] Diagnosis: ICD-10-CM G47.00 Insomnia, unspecified Active Diagnosis [facility] Diagnosis: ICD-10-CM R49.8 Other voice and resonance disorders Active Diagnosis 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 Diagnosis: ICD-10-CM M79.643 Pain in unspecified hand Active Diagnosis [facility] Diagnosis: ICD-10-CM F43.10 Post-traumatic stress disorder, unspecified Active Diagnosis [facility] Diagnosis: ICD-10-CM H60.92 Unspecified otitis externa, left ear Active Diagnosis [facility] Diagnosis: ICD-10-CM R94.5 Abnormal results of liver function studies Active Diagnosis [facility] Diagnosis: ICD-10-CM R05.2 Subacute cough Active Diagnosis [facility] Diagnosis: ICD-10-CM U07.1 COVID-19 Active Diagnosis [facility] Diagnosis: ICD-10-CM Z91.89 Oth personal risk factors, not elsewhere classified Active Diagnosis [facility] Diagnosis: ICD-10-CM F43.20 Adjustment disorder, unspecified Active Diagnosis [facility] Diagnosis: ICD-10-CM K76.0 Fatty (change of) liver, not elsewhere classified Active Diagnosis [facility] Diagnosis: ICD-10-CM G47.36 Sleep related hypoventilation in conditions classd elswhr Active Diagnosis [facility] Medications Combined list of outpatient medications from Department of Defense and [facility] Affairs facilities.Medications provided include 1) outpatient [...] . RESPIR ATORY (INHAL ATION) ACTIVE 10/14/2024 [id number] SERA NEGRETE RRI 2023 1 [facility] ALBUTEROL SO4 90MCG/ACTUA T (CFC-F) INHL,ORAL,8 .5GM INHALE 2 PUFFS ORAL INHALATI ON FOUR TIMES A DAY NEEDED FOR COUGH. SHAKE WELL. RINSE MOUTHPIE CE FREQUENT LY TO PREVENT CLOGGING . RESPIR ATORY (INHAL ATION) 08/13/2023 [id number] 4 AKHIL MORTON AMCYNDID T 2023 1 [facility] AMOXICILLIN TRIHYDRATE 875MG/CLAVU LANATE K 125MG TAB TAKE 1 TABLET BY MOUTH EVERY 12 HOURS TAKE WITH FOOD. TAKE UNTIL GONE UNLESS OTHERWIS E DIRECTED . ORAL ACTIVE 05/08/2024 [id number] 4 MAYA HERCULES M 2023 8 [facility] AMOXICILLIN TRIHYDRATE 875MG/CLAVU LANATE K 125MG TAB TAKE 1 TABLET BY MOUTH TWICE A DAY TAKE WITH FOOD. TAKE UNTIL GONE UNLESS OTHERWIS E DIRECTED . ORAL 04/04/2024 [id number] 4 ISIS,INA L S 2023 14 [facility] Benzonatate (Tessalon Perle) Capsule Conventiona l 100 mg Oral TAKE ONE CAPSULE BY MOUTH THREE TIMES A DAY NEEDED Active 04/17/2024 [id number] 4 KIRIT LUDWIG 2023 30 [facility] BENZONATATE 100MG CAP TAKE ONE CAPSULE BY MOUTH THREE TIMES A DAY NEEDED ORAL DISCONT INUED (EDIT) 04/17/2024 [id number] 4 WINNIE LUDWIG D 2023 30 [facility] BENZONATATE 200MG CAP TAKE ONE CAPSULE BY MOUTH THREE TIMES A DAY NEEDED FOR COUGH ORAL ACTIVE 03/17/2025 [id number] 4 SELENEAKHIL T 2023 90 [facility] BENZONATATE 200MG CAP TAKE ONE CAPSULE BY MOUTH THREE TIMES A DAY NEEDED FOR COUGH ORAL DISCONT INUED 05/20/2024 [id number] 4 SELENEAKHIL T 2023 90 [facility] CETIRIZINE HCL 10MG TAB TAKE ONE TABLET BY MOUTH ONCE A DAY FOR ALLERGY SYMPTOMS ORAL 12/25/2023 [id number] 4 SELENEAKHIL AMLEILANI T 2023 30 [facility] CETIRIZINE HCL 10MG TAB TAKE ONE TABLET BY MOUTH ONCE A DAY FOR ALLERGY SYMPTOMS ORAL 06/19/2023 [id number] 4 AKHIL MORTON AMMAD T 2023 14 [facility] DICLOFENAC NA 1% GEL,TOP APPLY 2 GM TO AFFECTED AREA(S) FOUR TIMES A DAY NEEDED FOR PAIN DO NOT EXCEED MORE THAN 16 GRAMS DAILY TO ANY LOWER EXTREMIT Y JOINT. NOT MORE THAN 8 GRAMS DAILY TO ANY UPPER EXTREMIT Y JOINT. MAX 32GM/DAY OVER ALL JOINTS. (MEASURE DOSE WITH RULER ATTACHED INSIDE BOX) LALI IZQUIERDO INUED 02/08/2024 [id number] ANGEL ,NAVIN 2023 100 [facility] DICLOFENAC NA 50MG TAB,EC TAKE ONE TABLET BY MOUTH EVERY MORNING AND EVENING FOR PAIN - TAKE WITH FOOD ORAL ACTIVE 02/03/2025 [id number] 4 AKHIL MORTON AMMAD T 2023 60 [facility] DOXYCYCLINE HYCLATE 100MG TAB TAKE ONE TABLET BY MOUTH EVERY 12 HOURS TAKE UNTIL FINISHED . AVOID SUN EXPOSURE WHILE TAKING. ORAL ACTIVE 05/08/2024 [id number] 4 [facility] LLBrian M 2023 8 [facility] FLUTICASONE 250MCG/SALM ETEROL 50MCG INHL,ORAL,D ISKUS,60 INHALE 1 INHALATI ON ORAL INHALATI ON TWICE A DAY FOR ASTHMA (OPEN DISKUS; CLICK ONLY ONCE; MAY INHALE TWICE TO COMPLETE DOSE; CLOSE WHEN FINISHED ) RINSE MOUTH AND SPIT AFTER EACH USE. RESPIR ATORY (INHAL ATION) 01/12/2024 [id number] 4 SERA NEGRETE RRI 2023 3 [facility] GOV-NIRMATR ANNY 150MG X 2/RITONAVIR 100MG X 1 TAB,PACK,3 TAKE TABLETS BY MOUTH DIRECTED TAKE 2 NIRMATRE LVIR TABLETS AND 1 RITONAVI R TABLET (3 TABLETS TOTAL) IN THE MORNING AND IN THE EVENING FOR 5 DAYS ORAL 05/17/2023 [id number] 4 WINNIE LUDWIG D 2023 5 [facility] HC 1%/N-MYCIN 3.5MG/POLYM YX 99107GAL/ML SUSP,OTIC INSTILL 4 DROPS IN TO AFFECTED EAR(S) THREE TIMES A DAY FOR BACTERIA L EAR INFECTIO N (SHAKE WELL) AURICU LAR (OTIC) DISCONT INUED 12/25/2023 [id number] 4 AKHIL MORTON T 2023 10 [facility] HYDROCODONE 5MG/ACETAMI NOPHEN 325MG TAB TAKE ONE-HALF TABLET BY MOUTH EVERY 6 HOURS NEEDED FOR PAIN CAUTION: DO NOT EXCEED 4000MG PER DAY ACETAMIN OPHEN (APAP) FROM ALL MEDS. ORAL DISCONT INUED 02/08/2024 [id number] 4 BING ORTIZ 2023 10 [facility] IBUPROFEN 400MG TAB TAKE ONE TABLET BY MOUTH FOUR TIMES A DAY NEEDED FOR PAIN TAKE WITH FOOD ORAL DISCONT INUED (EDIT) 06/19/2023 [id number] 4 AKHIL MORTON T 2023 56 [facility] IBUPROFEN 600MG TAB TAKE ONE TABLET BY MOUTH THREE TIMES A DAY TAKE WITH FOOD. DO NOT TAKE WITH DICLOFEN AC ORAL ACTIVE 05/08/2024 [id number] 4 MAYA HERCULES 2023 30 [facility] IBUPROFEN 600MG TAB TAKE ONE TABLET BY MOUTH THREE TIMES A DAY NEEDED FOR PAIN TAKE WITH FOOD ORAL 07/03/2023 [id number] 4 AKHIL MORTON T 2023 90 [facility] MELATONIN 3MG CAP/TAB TAKE TWO CAP/TAB BY MOUTH AT BEDTIME FOR SLEEP MAY TAKE ONE ADDITION AL TABLET/C APSULE FOR A TOTAL OF 3 TABLETS/ CAPSULES IF NEEDED. ORAL 12/25/2023 [id number] 4 AKHIL MORTON T 2023 60 [facility] METHYLPREDN ISOLONE 4MG TAB DOSEPAK,21 TAKE TABLETS BY MOUTH DIRECTED TAKE 6 TABLETS BY MOUTH ON DAY ONE, THEN DECREASE BY ONE TABLET DAILY UNTIL GONE. TAKE WITH FOOD. ORAL DISCONT INUED 02/25/2024 [id number] 4 SELENEAKHIL VALADEZ T 2023 1 [facility] PANTOPRAZOL E NA 40MG TAB,EC TAKE ONE TABLET BY MOUTH EVERY MORNING BEFORE A MEAL TAKE 30 MINUTES BEFORE MEAL(S) ORAL DISCONT INUED 03/14/2024 [id number] 4 SERA NEGRETE RRI 2023 60 [facility] PANTOPRAZOL E NA 40MG TAB,EC TAKE ONE TABLET BY MOUTH EVERY MORNING BEFORE A MEAL FOR GASTROES OPHAGEAL REFLUX DISEASE TAKE 30 MINUTES BEFORE MEAL(S) ORAL 04/04/2024 [id number] 4 AKHIL MORTON 2023 30 [facility] PREDNISONE 10MG TAB TAKE THREE TABLETS BY MOUTH EVERY MORNING FOR 3 DAYS, THEN TAKE TWO TABLETS EVERY MORNING FOR 3 DAYS, THEN TAKE ONE TABLET EVERY MORNING FOR 3 DAYS TAKE WITH FOOD OR MILK. ORAL ACTIVE 05/08/2024 [id number] 4 MAYA HERCULES 2023 18 [facility] PREDNISONE 20MG TAB TAKE ONE TABLET BY MOUTH EVERY MORNING TAKE WITH FOOD OR MILK. ORAL DISCONT INUED 02/21/2024 [id number] 4 JOSE HILARIO DHI 2023 4 [facility] PREDNISONE 20MG TAB TAKE ONE TABLET BY MOUTH EVERY MORNING FOR CARPAL TUNNEL TAKE WITH FOOD OR MILK. ORAL DISCONT INUED 02/08/2024 [id number] 4 BING ORTIZ 2023 10 [facility] TRAZODONE HCL 100MG TAB TAKE ONE-HALF TABLET BY MOUTH AT BEDTIME FOR SLEEP ORAL ACTIVE 05/25/2024 [id number] 4 AKHIL MORTON T 2023 45 [facility] Allergies, Adverse Reactions, Alerts Combined list of allergies from 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 It does not include entries that were removed or entered in error. Substance Category Reaction Severity Reaction type Status Date Reported Comments Source OTHER Drug allergy (disorder) Unknown active 3 [facility] OTHER Drug allergy (disorder) active 6 [facility] SHELLFISH Propensity to adverse reactions to food (finding) Urticaria, Swelling SEVERE active 1 [facility] Immunizations Combined list of available immunizations from the 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 Immunization Series Date Given Administered By Site Reaction Lot Number CVX Code Drug Clinical Specialist Status Comments Source INFLUENZA, SPLIT VIRUS, TRIVALENT, PF 2023 HARPER ROBERT RIGHT DELTO ID [id number] 140 complet ed [facility] COVID-19 ([facility]), MRNA, LNP-S, BIVALENT BOOSTER, PF, 30 MCG/0.3 ML DOSE 1 2021 [facility] MORRISON LEFT DELTO ID [id number] 300 complet ed [facility] COVID-19 ([facility]), MRNA, LNP-S, PF, 30 MCG/0.3 ML DOSE 3 2020 208 complet ed PFR; [id number]; 2 [facility] TDAP 2020 115 complet ed [facility] COVID-19 ([employer]), MRNA, LNP-S, PF, 30 MCG/0.3 ML DOSE 2 2020 208 complet ed PFR; [id number]; 1 [facility] COVID-19 ([employer]), MRNA, LNP-S, PF, 30 MCG/0.3 ML DOSE 1 2020 208 complet ed PFR; [id number]; 1 [facility] Influenza, injectable, quadrivalent, preservative free 15 2018 [id number] 150 [employer] (SEQ) complet ed Influenza , injectabl e, quadrival ent, preservat pérez free [facility] Influenza, injectable, quadrivalent, preservative free 1 2017 [id number] 150 [employer] (SEQ) complet ed Influenza [...] inactivat ed DoD anthrax vaccine 6 2017 [id number] [facility] complet ed anthrax vaccine DoD typhoid Vi capsular polysaccharid e vaccine 3 2017 [id number] Sanofi Pasteur (PMC) complet ed typhoid Vi capsular polysacch aride vaccine DoD Influenza, injectable, quadrivalent, preservative free 13 2016 [id number] 150 [facility] complet ed Influenza , injectabl e, quadrival ent, preservat pérez free DoD Influenza, seasonal, injectable, preservative free 12 2015 [id number] 140 [employer] (SEQ) comple t ed Influenza , seasonal, injectabl e, preservat pérez free DoD influenza, live, intranasal, quadrivalent 11 2014 [id number] 149 MedImmune, Inc. (MED) complet ed influenza , live, intranasa l, quadrival ent DoD influenza, live, intranasal, quadrivalent 10 2013 [id number] 149 [employer] Inc[employer] (MED) complet ed influenza , live, intranasa l, quadrival ent DoD influenza, live, intranasal, quadrivalent 9 2012 [id number] 149 [employer] Inc[employer] (MED) complet ed influenza , live, intranasa l, quadrival ent DoD Influenza, seasonal, injectable 8 2011 [id number] 141 Sanofi Pasteur (PMC) complet ed Influenza , seasonal, injectabl e DoD anthrax vaccine 5 2011 [id number] 24 [facility] ([facility]) complet ed anthrax vaccine DoD typhoid Vi capsular polysaccharid e vaccine 1 2011 [id number] 101 Sanofi Pasteur (PMC) complet ed typhoid Vi capsular polysacch aride vaccine DoD Influenza, seasonal, injectable 1 2010 [id number] 141 Sanofi Pasteur (PMC) complet ed Influenza , seasonal, injectabl e DoD anthrax vaccine 4 2010 [id number] 24 [facility] ([facility]) complet ed anthrax vaccine DoD anthrax vaccine 3 2010 [id number] 24 [facility] ([facility]) complet ed anthrax vaccine DoD influenza virus vaccine, split virus (incl. purified surface antigen)-reti red CODE 1 2009 [id number] 15 [facility] [employer], [employer] (CS) complet ed influenza virus vaccine, split virus (incl. purified surface antigen)- retired CODE DoD anthrax vaccine 2 2009 [id number] 24 [facility] ([facility]) complet ed anthrax vaccine DoD tetanus toxoid, reduced diphtheria toxoid, and acellular pertu is vaccine, adsorbed 1 [id number] [place] [address] [email or web address] ([facility]) complet ed tetanus toxoid, reduced diphtheri a toxoid, and acellular pertussis vaccine, adsorbed DoD vaccinia (smallpox) vaccine 2 2009 VV04-00 [id number] 75 [facility] ([facility]) complet ed vaccinia (smallpox ) vaccine DoD anthrax vaccine 1 2009 [id number] 24 [facility] ([facility]) complet ed anthrax vaccine DoD vaccinia (smallpox) vaccine 1 2009 VV04-00 3A 75 [facility] ([facility]) complet ed vaccinia (smallpox ) vaccine DoD typhoid Vi capsular polysaccharid e vaccine 1 2009 [id number] 101 Sanofi Pasteur ([facility]) complet ed typhoid Vi capsular polysacch aride vaccine [facility] Novel influenza-H1N 1-09, injectable 1 2009 127 () complet ed Novel influenza -Z2L4-14, injectabl e [facility] influenza virus vaccine, live, attenuated, for intranasal use 1 2008 [id number] 111 [employer] (MED) complet influenza virus vaccine, live, attenuate d, for intranasa l use [facility] influenza virus vaccine, live, attenuated, for intranasal use 1 2007 [id number] 111 [employer] (MED) complet ed influenza virus vaccine, live, attenuate d, for intranasa l use DoD influenza virus vaccine, live, attenuated, for intranasal use 1 2006 [id number] 111 [employer] (MED) complet ed influenza virus vaccine, live, attenuate d, for intranasa l use DoD influenza virus vaccine, split virus (incl. purified surface antigen)-reti red CODE 1 2006 [id number] 15 Sanofi Pasteur ([facility]) complet ed influenza virus vaccine, split [...] vaccine 1 2005 [id number] 104 [employer] ([facility]) complet ed hepatitis A and hepatitis B vaccine DoD tetanus and diphtheria toxoids, adsorbed, preservative free, for adult use (2 Lf of tetanus toxoid and 2 Lf of diphtheria toxoid) 1 2005 [id number] 09 Sanofi Pasteur ([facility]) complet ed tetanus and diphtheri a toxoids, adsorbed, preservat pérez free, for adult use (2 Lf of tetanus toxoid and 2 Lf of diphtheri a toxoid) DoD poliovirus vaccine, inactivated 1 2005 [id number] 10 Sanofi Pasteur ([facility]) complet ed polioviru s vaccine, inactivat ed DoD influenza virus vaccine, split virus (incl. purified surface antigen)-reti red CODE 1 2005 [id number] 15 Sanofi Pasteur ([facility]) complet ed influenza virus vaccine, split virus (incl. purified surface antigen)- retired CODE DoD meningococcal polysaccharid e (groups A, C, Y and W-135) diphtheria toxoid conjugate vaccine (MCV4P) 1 2005 [id number] 114 Sanofi Pasteur (PMC) complet ed meningoco [...] Reference Range Date Interpretation Specimen Comments Source CBC LEUKOCYTES [#/VOLUME] IN BLOOD BY AUTOMATED COUNT 7.2 10*3/uL 3.6 - 11.2 03/21 Specimen Type: BLOOD No comment entered. Ordering Provider: REMINGTON BROWN SSAM Report Released Date/Time: Mar 21, 2024 12:23 PM Reporting Lab: [facility] [address] [place] [phone] Performing Lab: [facility] [address] [place] [phone] [facility] CBC ERYTHROCYT ES [#/VOLUME] IN BLOOD BY AUTOMATED COUNT 4.24 10*6/uL 4.10 - 5.70 03/21 Specimen Type: BLOOD No comment entered. Ordering Provider: REMINGTON BROWN Report Released Date/Time: Mar 21, 2024 12:23 PM Reporting Lab: [facility] [address] [place] [phone] Performing Lab: [facility] [address] [place] [phone] [facility] CBC HEMOGLOBIN [MASS/VOLU ME] IN BLOOD 11.1 g/dL 13.1 - 16.8 03/21 L Specimen Type: BLOOD No comment entered. Ordering Provider: REMINGTON BROWN Report Released Date/Time: Mar 21, 2024 12:23 PM Reporting Lab: [facility] [address] [place] [phone] Performing Lab: [facility] [address] [place] [phone] [facility] CBC HEMATOCRIT [VOLUME FRACTION] OF BLOOD 33.9 38.2 - 48.4 03/21 L Specimen Type: BLOOD No comment entered. Ordering Provider: REMINGTON BROWN Report Released Date/Time: Mar 21, 2024 12:23 PM Reporting Lab: [address] [phone] Performing Lab: [facility] [address] [place] [phone] [facility] CBC MCV [ENTITIC VOLUME] BY AUTOMATED COUNT 80.0 fL 80.0 - 100.0 03/21 Specimen Type: BLOOD No comment entered. Ordering Provider: REMINGTON BROWNM Report Released Date/Time: Mar 21, 2024 12:23 PM Reporting Lab: [address] [phone] Performing Lab: [address] [phone] [facility] CBC MCH [ENTITIC MASS] BY AUTOMATED COUNT 26.2 pg 27.0 - 34.0 03/21 L Specimen Type: BLOOD No comment entered. Ordering Provider: REMINGTON BROWN Report Released Date/Time: Mar 21, 2024 12:23 PM Reporting Lab: [address] [phone] Performing Lab: [address] [address] [facility] CBC MCHC [MASS/VOLU ME] BY AUTOMATED COUNT 32.7 g/dL 33.0 - 36.0 03/21 L Specimen Type: BLOOD No comment entered. Ordering Provider: REMINGTON BROWN Report Released Date/Time: Mar 21, 2024 12:23 PM Reporting Lab: [address] [phone] Performing Lab: [address] [phone] [facility] CBC PLATELETS [#/VOLUME] IN BLOOD BY AUTOMATED COUNT 352 10*3/uL 150 - 400 03/21 Specimen Type: BLOOD No comment entered. Ordering Provider: REMINGTON BROWNM Report Released Date/Time: Mar 21, 2024 12:23 PM Reporting Lab: [facility] [address] [place] [phone] Performing Lab: [facility] [address] [place] [phone] [facility] CBC PLATELET MEAN VOLUME [ENTITIC VOLUME] IN BLOOD BY AUTOMATED COUNT 10.0 fL 7.5 - 11.2 03/21 Specimen Type: BLOOD No comment entered. Ordering Provider: REMINGTON BROWNM Report Released Date/Time: Mar 21, 2024 12:23 PM Reporting Lab: [address] [phone] Performing Lab: [address] [phone] [facility] CBC ERYTHROCYT E DISTRIBUTI ON WIDTH [RATIO] BY AUTOMATED COUNT 13.4 11.8 - 15.1 03/21 Specimen Type: BLOOD No comment entered. Ordering Provider: REMINGTON BROWN Report Released Date/Time: Mar 21, 2024 12:23 PM Reporting Lab: [facility] [address] [place] [phone] Performing Lab: [address] [phone] [facility] CBC LYMPHOCYTE S/100 LEUKOCYTES IN BLOOD BY AUTOMATED COUNT 17 03/21 Specimen Type: BLOOD No comment entered. Ordering Provider: REMINGTON BROWN SSANacho Report Released Date/Time: Mar 21, 2024 12:23 PM Reporting Lab: [facility] [address] [place] [phone] Performing Lab: [facility] [address] [place] [phone] [facility] CBC MONOCYTES/ 100 LEUKOCYTES IN BLOOD BY AUTOMATED COUNT 7 03/21 Specimen Type: BLOOD No comment entered. Ordering Provider: REMINGTON BROWN Report Released Date/Time: Mar 21, 2024 12:23 PM Reporting Lab: [facility] [address] [facility] [phone] Performing Lab: [facility] [address] [facility] [phone] [facility] CBC NEUTROPHIL S/100 LEUKOCYTES IN BLOOD BY AUTOMATED COUNT 74 03/21 Specimen Type: BLOOD No comment entered. Ordering Provider: REMINGTON BROWN Report Released Date/Time: Mar 21, 2024 12:23 PM Reporting Lab: [facility] [address] [facility] [phone] Performing Lab: [facility] [address] [facility] [phone] [address] [facility] CBC EOSINOPHIL S/100 LEUKOCYTES IN BLOOD BY AUTOMATED COUNT 2 03/21 Specimen Type: BLOOD No comment entered. Ordering Provider: REMINGTON BROWN Report Released Date/Time: Mar 21, 2024 12:23 PM Reporting Lab: [facility] [address] [facility] [address] Performing Lab: [facility] [address] [facility] [address] [facility] CBC BASOPHILS/ 100 LEUKOCYTES IN BLOOD BY AUTOMATED COUNT 0 03/21 Specimen Type: BLOOD No comment entered. Ordering Provider: REMINGTON BROWN Report Released Date/Time: Mar 21, 2024 12:23 PM Reporting Lab: [facility] [address] [facility] [address] Performing Lab: [facility] [address] [facility] [address] [facility] CBC LYMPHOCYTE S [#/VOLUME] IN BLOOD BY AUTOMATED COUNT 1.22 10*3/uL 0.77 - 4.50 03/21 Specimen Type: BLOOD No comment entered. Ordering Provider: REMINGTON BROWN Report Released Date/Time: Mar 21, 2024 12:23 PM Reporting Lab: [address] [address] Performing Lab: [address] [address] [facility] CBC MONOCYTES [#/VOLUME] IN BLOOD BY AUTOMATED COUNT 0.48 10*3/uL 0.19 - 0.80 03/21 Specimen Type: BLOOD No comment entered. Ordering Provider: REMINGTON BROWN Report Released Date/Time: Mar 21, 2024 12:23 PM Reporting Lab: [address] [address] Performing Lab: [address] [address] [facility] CBC NEUTROPHIL S [#/VOLUME] IN BLOOD BY AUTOMATED COUNT 5.34 10*3/uL 2.10 - 8.00 03/21 Specimen Type: BLOOD No comment entered. Ordering Provider: REMINGTON BROWN Report Released Date/Time: Mar 21, 2024 12:23 PM Reporting Lab: [address] [address] Performing Lab: [address] [address] [facility] CBC EOSINOPHIL S [#/VOLUME] IN BLOOD BY AUTOMATED COUNT 0.13 10*3/uL 0.00 - 0.60 03/21 Specimen Type: BLOOD No comment entered. Ordering Provider: REMINGTON BROWN Report Released Date/Time: Mar 21, 2024 12:23 PM Reporting Lab: [address] [address] Performing Lab: [address] [address] [facility] CBC BASOPHILS [#/VOLUME] IN BLOOD BY AUTOMATED COUNT 0.01 10*3/uL 0.00 - 0.20 03/21 Specimen Type: BLOOD No comment entered. Ordering Provider: REMINGTON BROWN Report Released Date/Time: Mar 21, 2024 12:23 PM Reporting Lab: [address] [place] [address] Performing Lab: [place] [address] [facility] [address] [facility] COMPREHE NSIVE METABOLI C PANEL CREATININE [MASS/VOLU ME] IN SERUM OR PLASMA 1.00 mg/dL 0.7 - 1.3 03/21 Specimen Type: PLASMA Comment: No hemolysis noted. Ordering Provider: REMINGTON BROWN Report Released Date/Time: Mar 21, 2024 12:23 PM Reporting Lab: [address] [address] Performing Lab: [address] [address] [facility] COMPREHE NSIVE METABOLI C PANEL UREA NITROGEN [MASS/VOLU ME] IN SERUM OR PLASMA 18.1 mg/dL 9.0 - 25.0 03/21 Specimen Type: PLASMA Comment: No hemolysis noted. Ordering Provider: REMINGTON BROWN Report Released Date/Time: Mar 21, 2024 12:23 PM Reporting Lab: [address] [address] Performing Lab: [address] [address] [facility] COMPREHE NSIVE METABOLI C PANEL GLUCOSE [MASS/VOLU ME] IN SERUM OR PLASMA 105 mg/dL 72 - 99 03/21 H Specimen Type: PLASMA Comment: No hemolysis noted. Ordering Provider: REMINGTON BROWN Report Released Date/Time: Mar 21, 2024 12:23 PM Reporting Lab: [address] [address] Performing Lab: [address] [address] [facility] COMPREHE NSIVE METABOLI C PANEL SODIUM [MOLES/VOL UME] IN SERUM OR PLASMA 136 meq/L 136 - 145 03/21 Specimen Type: PLASMA Comment: No hemolysis noted. Ordering Provider: REMINGTON BROWN Report Released Date/Time: Mar 21, 2024 12:23 PM Reporting Lab: [facility] [address] [facility] [address] Performing Lab: [facility] [address] [facility] [address] [facility] COMPREHE NSIVE METABOLI C PANEL POTASSIUM [MOLES/VOL UME] IN SERUM OR PLASMA 4.2 meq/L 3.5 - 5 03/21 Specimen Type: PLASMA Comment: No hemolysis noted. Ordering Provider: REMINGTON BROWN Report Released Date/Time: Mar 21, 2024 12:23 PM Reporting Lab: [facility] [address] [place] [address] Performing Lab: [facility] [address] [place] [address] [facility] COMPREHE NSIVE METABOLI C PANEL CHLORIDE [MOLES/VOL UME] IN SERUM OR PLASMA 102 meq/L 98 - 107 03/21 Specimen Type: PLASMA Comment: No hemolysis noted. Ordering Provider: REMINGTON BROWN Report Released Date/Time: Mar 21, 2024 12:23 PM Reporting Lab: [facility] [address] [facility] [address] Performing Lab: [facility] [address] [place] [address] [facility] COMPREHE NSIVE METABOLI C PANEL CARBON DIOXIDE, TOTAL [MOLES/VOL UME] IN SERUM OR PLASMA 23 meq/L 22 - 31 03/21 Specimen Type: PLASMA Comment: No hemolysis noted. Ordering Provider: REMINGTON BROWN Report Released Date/Time: Mar 21, 2024 12:23 PM Reporting Lab: [facility] [address] [facility] [address] Performing Lab: [facility] [address] [facility] [address] [facility] COMPREHE NSIVE METABOLI C PANEL CALCIUM [MASS/VOLU ME] IN SERUM OR PLASMA 9.7 mg/dL 8.4 - 10.4 03/21 Specimen Type: PLASMA Comment: No hemolysis noted. Ordering Provider: REMINGTON BROWN Report Released Date/Time: Mar 21, 2024 12:23 PM Reporting Lab: [facility] [address] [facility] [address] Performing Lab: [place] [address] [facility] [address] [facility] COMPREHE NSIVE METABOLI C PANEL PROTEIN [MASS/VOLU ME] IN SERUM OR PLASMA 9.6 g/dL 6 - 8.6 03/21 H Specimen Type: PLASMA Comment: No hemolysis noted. Ordering Provider: REMINGTON BROWN Report Released Date/Time: Mar 21, 2024 12:23 PM Reporting Lab: [address] [address] Performing Lab: [place] [address] [facility] [address] [facility] COMPREHE NSIVE METABOLI C PANEL ALBUMIN [MASS/VOLU ME] IN SERUM OR PLASMA 3.4 g/dL 3.4 - 5 03/21 Specimen Type: PLASMA Comment: No hemolysis noted. Ordering Provider: REMINGTON BROWN Report Released Date/Time: Mar 21, 2024 12:23 PM Reporting Lab: [place] [address] [facility] [address] Performing Lab: [place] [address] [facility] [address] [facility] COMPREHE NSIVE METABOLI C PANEL BILIRUBIN. TOTAL [MASS/VOLU ME] IN SERUM OR PLASMA 1.1 mg/dL 0.2 - 1.2 03/21 Specimen Type: PLASMA Comment: No hemolysis noted. Ordering Provider: REMINGTON BROWN Report Released Date/Time: Mar 21, 2024 12:23 PM Reporting Lab: [facility] [address] [facility] [address] Performing Lab: [facility] [address] [facility] [address] [facility] COMPREHE NSIVE METABOLI C PANEL ALKALINE PHOSPHATAS E [ENZYMATIC ACTIVITY/V OLUME] IN SERUM OR PLASMA 109 U/L 40 - 150 03/21 Specimen Type: PLASMA Comment: No hemolysis noted. Ordering Provider: REMINGTON BROWN Report Released Date/Time: Mar 21, 2024 12:23 PM Reporting Lab: [facility] [address] [facility] [address] Performing Lab: [place] [address] [facility] [address] [facility] COMPREHE NSIVE METABOLI C PANEL ASPARTATE AMINOTRANS FERASE [ENZYMATIC ACTIVITY/V OLUME] IN SERUM OR PLASMA 48 U/L 5 - 34 03/21 H Specimen Type: PLASMA Comment: No hemolysis noted. Ordering Provider: REMINGTON BROWN Report Released Date/Time: Mar 21, 2024 12:23 PM Reporting Lab: [place] [address] [facility] [address] Performing Lab: [place] [address] [facility] [address] [facility] COMPREHE NSIVE METABOLI C PANEL ALANINE AMINOTRANS FERASE [ENZYMATIC ACTIVITY/V OLUME] IN SERUM OR PLASMA 37 U/L 8 - 40 03/21 Specimen Type: PLASMA Comment: No hemolysis noted. Ordering Provider: REMINGTON BROWN Report Released Date/Time: Mar 21, 2024 12:23 PM Reporting Lab: [place] [address] [facility] [address] Performing Lab: [place] [address] [facility] [address] [facility] COMPREHE NSIVE METABOLI C PANEL GLOMERULAR FILTRATION RATE/1.73 SQ M.PREDICTE D [VOLUME RATE/AREA] IN SERUM, PLASMA OR BLOOD BY CREATININE -BASED FORMULA (CKD-EPI 2020) 98.2 60 03/21 Specimen Type: PLASMA Comment: No hemolysis noted. Ordering Provider: REMINGTON BROWN SSAM Report Released Date/Time: Mar 21, 2024 12:23 PM Reporting Lab: [facility] [address] [place] [address] Performing Lab: [facility] [address] [place] [address] [facility] TROPONIN I TROPONIN I.CARDIAC [MASS/VOLU ME] IN SERUM OR PLASMA <0.010ng /mL 0 - 0.033 03/05 Specimen Type: PLASMA No comment entered. Ordering Provider: MUKESH MARINELLI Report Released Date/Time: Mar 05, 2024 11:04 AM Reporting Lab: [address] [address] Performing Lab: [address] [address] [facility] RESPIRAT ORY PCR PANEL ADENOVIRUS DNA [PRESENCE] IN NASOPHARYN X BY GALLITO WITH NON-PROBE DETECTION Not Detected 03/05 Specimen Type: NASOPHARYNX Comment: The [employer] RP Panel combines nested multiplex PCR and [...] available to the clinician evaluating the patient. Newman InfiniteKelly Skinner, ([phone]) Ordering Provider: MUKESH MARINELLI Report Released Date/Time: Mar 05, 2024 09:39 AM Reporting Lab: [address] [address] Performing Lab: [address] [address] [facility] RESPIRAT ORY PCR PANEL HUMAN CORONAVIRU [...] available to the clinician evaluating the patient. [facility] Healthcare CompaniesClaudio CASTRO ([phone]) Ordering Provider: MUKESH MARINELLI Report Released Date/Time: Mar 05, 2024 09:39 AM Reporting Lab: [place] [address] Performing Lab: [address] [phone] [place] [address] [facility] RESPIRAT ORY PCR PANEL HUMAN CORONAVIRU [...] available to the clinician evaluating the patient. Claudoi GREEN, ([phone]) Ordering Provider: MUKESH MARINELLI Report Released Date/Time: Mar 05, 2024 09:39 AM Reporting Lab: [address] [address] Performing Lab: [place] [address] [facility] [address] [facility] RESPIRAT ORY PCR PANEL HUMAN CORONAVIRU [...] available to the clinician evaluating the patient. [employer]ekl[employer] Susanne ([phone]) Ordering Provider: MUKESH MARINELLI Report Released Date/Time: Mar 05, 2024 09:39 AM Reporting Lab: [address] [address] Performing Lab: [address] [address] [facility] RESPIRAT ORY PCR PANEL HUMAN CORONAVIRU [...] available to the clinician evaluating the patient. [employer] Reklaim CitySlickerKelly Skinner, ([phone]) Ordering Provider: MUKESH MARINELLI Report Released Date/Time: Mar 05, 2024 09:39 AM Reporting Lab: [facility] [address] [facility] [address] Performing Lab: [address] [address] [facility] RESPIRAT ORY PCR PANEL HUMAN METAPNEUMO VIRUS RNA [PRESENCE] IN NASOPHARYN X BY GALLITO WITH NON-PROBE DETECTION Not Detected 03/05 Specimen Type: NASOPHARYNX Comment: The [employer] RP Panel combines nested multiplex PCR and [...] available to the clinician evaluating the patient. Newman InfiniteKelly Skinner, ([phone]) Ordering Provider: MUKESH MARINELLI Report Released Date/Time: Mar 05, 2024 09:39 AM Reporting Lab: [address] [address] Performing Lab: [address] [address] [facility] RESPIRAT ORY PCR PANEL RHINOVIRUS +ENTEROVIR [...] available to the clinician evaluating the patient. [employer] Susanne, ([phone]) Ordering Provider: MUKESH MARINELLI Report Released Date/Time: Mar 05, 2024 09:39 AM Reporting Lab: [facility] [address] [facility] [address] Performing Lab: [facility] [address] [facility] [address] [facility] RESPIRAT ORY PCR PANEL INFLUENZA VIRUS A [...] available to the clinician evaluating the patient. [employer] Reklaim CitySlickerKelly Skinner, ([phone]) Ordering Provider: MUKESH MARINELLI Report Released Date/Time: Mar 05, 2024 09:39 AM Reporting Lab: [place] [address] [facility] [address] Performing Lab: [place] [address] [facility] [address] [facility] RESPIRAT ORY PCR PANEL INFLUENZA VIRUS [...] available to the clinician evaluating the patient. [employer] Rekl[employer] CitySlickerKelly Skinner, ([phone]) Ordering Provider: MUKESH MARINELLI Report Released Date/Time: Mar 05, 2024 09:39 AM Reporting Lab: [place] [address] [facility] [address] Performing Lab: [address] [address] [facility] RESPIRAT ORY PCR PANEL PARAINFLUE NZA [...] available to the clinician evaluating the patient. [employer] Reklaim CitySlickerKelly Skinner, ([phone]) Ordering Provider: MUKESH MARINELLI Report Released Date/Time: Mar 05, 2024 09:39 AM Reporting Lab: [address] [address] Performing Lab: [place] [address] [facility] [address] [facility] RESPIRAT ORY PCR PANEL PARAINFLUE NZA [...] available to the clinician evaluating the patient. [facility] Healthcare CompaniesClaudio CASTRO, ([phone]) Ordering Provider: MUKESH MARINELLI Report Released Date/Time: Mar 05, 2024 09:39 AM Reporting Lab: [facility] [address] [facility] [address] Performing Lab: [place] [address] [facility] [address] [facility] RESPIRAT ORY PCR PANEL PARAINFLUE NZA VIRUS 3 RNA [PRESENCE] IN NASOPHARYN X BY GALLITO WITH NON-PROBE DETECTION Not Detected 03/05 Specimen Type: NASOPHARYNX Comment: The [employer] RP Panel combines nested multiplex PCR and [...] available to the clinician evaluating the patient. [facility] Healthcare CompaniesClaudio CASTRO, ([phone]) Ordering Provider: MUKESH MARINELLI Report Released Date/Time: Mar 05, 2024 09:39 AM Reporting Lab: [facility] [address] [facility] [address] Performing Lab: [place] [address] [address] [facility] [address] [facility] RESPIRAT ORY PCR PANEL PARAINFLUE NZA VIRUS 4 RNA [PRESENCE] IN NASOPHARYN X BY GALLITO WITH NON-PROBE DETECTION Not Detected 03/05 Specimen Type: NASOPHARYNX Comment: The [employer] RP Panel combines nested multiplex PCR and [...] available to the clinician evaluating the patient. BookNowshannon, ([phone]) Ordering Provider: MUKESH MARINELLI Report Released Date/Time: Mar 05, 2024 09:39 AM Reporting Lab: [address] [address] Performing Lab: [address] [address] [facility] RESPIRAT ORY PCR PANEL RESPIRATOR Y SYNCYTIAL VIRUS RNA [PRESENCE] IN NASOPHARYN X BY GALLITO WITH NON-PROBE DETECTION Not Detected 03/05 Specimen Type: NASOPHARYNX Comment: The [employer] RP Panel combines nested multiplex PCR and [...] available to the clinician evaluating the patient. PokitDok Susanne, ([phone]) Ordering Provider: MUKESH MARINELLI Report Released Date/Time: Mar 05, 2024 09:39 AM Reporting Lab: [place] [address] [facility] [address] Performing Lab: [place] [address] [facility] [address] [facility] RESPIRAT ORY PCR PANEL BORDETELLA PERTUSSIS. [...] the clinician evaluating the patient. Claudio GREEN, ([phone]) Ordering Provider: MUKESH MARINELLI Report Released Date/Time: Mar 05, 2024 09:39 AM Reporting Lab: [address] [address] Performing Lab: [address] [address] [facility] RESPIRAT ORY PCR PANEL CHLAMYDOPH CRISTIAN [...] the clinician evaluating the patient. Claudio GREEN, ([phone]) Ordering Provider: MUKESH MARINELLI Report Released Date/Time: Mar 05, 2024 09:39 AM Reporting Lab: [address] [address] Performing Lab: [address] [address] [facility] RESPIRAT ORY PCR PANEL MYCOPLASMA PNEUMONIAE [...] available to the clinician evaluating the patient. Unruly, ([phone]) Ordering Provider: MUKESH MARINELLI Report Released Date/Time: Mar 05, 2024 09:39 AM Reporting Lab: [address] [address] Performing Lab: [address] [address] [facility] RESPIRAT ORY PCR PANEL BORDETELLA PARAPERTUS SIS [id number] DNA [PRESENCE] IN NASOPHARYN X BY GALLITO [...] available to the clinician evaluating the patient. PokitDok Susanne, ([phone]) Ordering Provider: MUKESH MARINELLI Report Released Date/Time: Mar 05, 2024 09:39 AM Reporting Lab: [address] [address] Performing Lab: [address] [address] [facility] RESPIRAT ORY PCR PANEL SARS-COV-2 (COVID-19) RNA [PRESENCE] IN NASOPHARYN X BY GALLITO WITH NON-PROBE DETECTION Not Detected 03/05 Specimen Type: NASOPHARYNX Comment: The [employer] RP Panel combines nested multiplex PCR and [...] available to the clinician evaluating the patient. [facility] Healthcare CompaniesClaudio CASTRO, ([phone]) Ordering Provider: MUKESH MARINELLI Report Released Date/Time: Mar 05, 2024 09:39 AM Reporting Lab: [address] [address] Performing Lab: [address] [address] [facility] BRAIN NATRIURE TIC PEPTIDE NATRIURETI C PEPTIDE B [MASS/VOLU ME] IN SERUM OR PLASMA 16.2 pg/mL 0 - 100 03/05 Specimen Type: PLASMA No comment entered. Ordering Provider: MUKESH MARINELLI Report Released Date/Time: Mar 05, 2024 09:39 AM Reporting Lab: [address] [address] Performing Lab: [address] [address] [facility] CBC LEUKOCYTES [#/VOLUME] IN BLOOD BY AUTOMATED COUNT 7.1 10*3/uL 3.6 - 11.2 03/05 Specimen Type: BLOOD No comment entered. Ordering Provider: MUKESH MARINELLI Report Released Date/Time: Mar 05, 2024 08:52 AM Reporting Lab: [place] [address] Performing Lab: [address] [phone] [place] [address] CBC ERYTHROCYT ES [#/VOLUME] IN BLOOD BY AUTOMATED COUNT 4.84 10*6/uL 4.10 - 5.70 03/05 Specimen Type: BLOOD No comment entered. Ordering Provider: MUKESH MARINELLI Report Released Date/Time: Mar 05, 2024 08:52 AM Reporting Lab: [place] [address] Performing Lab: [address] CBC HEMOGLOBIN [MASS/VOLU ME] IN BLOOD 13.1 g/dL 13.1 - 16.8 03/05 Specimen Type: BLOOD No comment entered. Ordering Provider: MUKESH MARINELLI Report Released Date/Time: Mar 05, 2024 08:52 AM Reporting Lab: [place] [address] Performing Lab: [address] [phone] CBC HEMATOCRIT [VOLUME FRACTION] OF BLOOD 38.6 38.2 - 48.4 03/05 Specimen Type: BLOOD No comment entered. Ordering Provider: MUKESH MARINELLI Report Released Date/Time: Mar 05, 2024 08:52 AM Reporting Lab: [place] [address] Performing Lab: [address] [phone] CBC MCV [ENTITIC VOLUME] BY AUTOMATED COUNT 79.8 fL 80.0 - 100.0 03/05 L Specimen Type: BLOOD No comment entered. Ordering Provider: MUKESH MARINELLI Report Released Date/Time: Mar 05, 2024 08:52 AM Reporting Lab: [address] [address] Performing Lab: [address] [address] [facility] CBC MCH [ENTITIC MASS] BY AUTOMATED COUNT 27.1 pg 27.0 - 34.0 03/05 Specimen Type: BLOOD No comment entered. Ordering Provider: MUKESH MARINELLI Report Released Date/Time: Mar 05, 2024 08:52 AM Reporting Lab: [address] [address] Performing Lab: [phone] CBC MCHC [MASS/VOLU ME] BY AUTOMATED COUNT 33.9 g/dL 33.0 - 36.0 03/05 Specimen Type: BLOOD No comment entered. Ordering Provider: MUKESH MARINELLI Report Released Date/Time: Mar 05, 2024 08:52 AM Reporting Lab: [address] [address] Performing Lab: [address] CBC PLATELETS [#/VOLUME] IN BLOOD BY AUTOMATED COUNT 354 10*3/uL 150 - 400 03/05 Specimen Type: BLOOD No comment entered. Ordering Provider: MUKESH MARINELLI Report Released Date/Time: Mar 05, 2024 08:52 AM Reporting Lab: [address] [address] Performing Lab: [address] [address] [facility] CBC PLATELET MEAN VOLUME [ENTITIC VOLUME] IN BLOOD BY AUTOMATED COUNT 9.9 fL 7.5 - 11.2 03/05 Specimen Type: BLOOD No comment entered. Ordering Provider: MUKESH MARINELLI Report Released Date/Time: Mar 05, 2024 08:52 AM Reporting Lab: [facility] [address] [place] [address] Performing Lab: [facility] [address] [place] [phone] [facility] CBC ERYTHROCYT E DISTRIBUTI ON WIDTH [RATIO] BY AUTOMATED COUNT 13.3 11.8 - 15.1 03/05 Specimen Type: BLOOD No comment entered. Ordering Provider: MUKESH MARINELLI Report Released Date/Time: Mar 05, 2024 08:52 AM Reporting Lab: [facility] [address] [place] [phone] Performing Lab: [address] [address] [facility] CBC LYMPHOCYTE S/100 LEUKOCYTES IN BLOOD BY AUTOMATED COUNT 14 03/05 Specimen Type: BLOOD No comment entered. Ordering Provider: MUKESH MARINELLI Report Released Date/Time: Mar 05, 2024 08:52 AM Reporting Lab: [facility] [address] [place] [address] Performing Lab: [facility] [address] [place] [address] [facility] CBC MONOCYTES/ 100 LEUKOCYTES IN BLOOD BY AUTOMATED COUNT 7 03/05 Specimen Type: BLOOD No comment entered. Ordering Provider: MUKESH MARINELLI Report Released Date/Time: Mar 05, 2024 08:52 AM Reporting Lab: [facility] [address] [facility] [address] Performing Lab: [facility] [address] [place] [phone] [facility] CBC NEUTROPHIL S/100 LEUKOCYTES IN BLOOD BY AUTOMATED COUNT 78 03/05 Specimen Type: BLOOD No comment entered. Ordering Provider: MUKESH MARINELLI Report Released Date/Time: Mar 05, 2024 08:52 AM Reporting Lab: [facility] [address] [facility] [address] Performing Lab: [place] [address] [facility] [address] [facility] CBC EOSINOPHIL S/100 LEUKOCYTES IN BLOOD BY AUTOMATED COUNT 0 03/05 Specimen Type: BLOOD No comment entered. Ordering Provider: MUKESH MARINELLI Report Released Date/Time: Mar 05, 2024 08:52 AM Reporting Lab: [address] [address] Performing Lab: [address] [address] [facility] BASOPHILS/ 100 LEUKOCYTES IN BLOOD BY AUTOMATED COUNT 0 03/05 Specimen Type: BLOOD No comment entered. Ordering Provider: MUKESH MARINELLI Report Released Date/Time: Mar 05, 2024 08:52 AM Reporting Lab: [address] [address] Performing Lab: [address] [address] [facility] LYMPHOCYTE S [#/VOLUME] IN BLOOD BY AUTOMATED COUNT 1.00 10*3/uL 0.77 - 4.50 03/05 Specimen Type: BLOOD No comment entered. Ordering Provider: MUKESH MARINELLI Report Released Date/Time: Mar 05, 2024 08:52 AM Reporting Lab: [address] [address] Performing Lab: [address] [address] [facility] MONOCYTES [#/VOLUME] IN BLOOD BY AUTOMATED COUNT 0.50 10*3/uL 0.19 - 0.80 03/05 Specimen Type: BLOOD No comment entered. Ordering Provider: MUKESH MARINELLI Report Released Date/Time: Mar 05, 2024 08:52 AM Reporting Lab: [address] [address] Performing Lab: [address] [address] [facility] NEUTROPHIL S [#/VOLUME] IN BLOOD BY AUTOMATED COUNT 5.53 10*3/uL 2.10 - 8.00 03/05 Specimen Type: BLOOD No comment entered. Ordering Provider: MUKESH MARINELLI Report Released Date/Time: Mar 05, 2024 08:52 AM Reporting Lab: [place] [address] Performing Lab: [place] [id number] CBC EOSINOPHIL S [#/VOLUME] IN BLOOD BY AUTOMATED COUNT 0.03 10*3/uL 0.00 - 0.60 03/05 Specimen Type: BLOOD No comment entered. Ordering Provider: MUKESH MARINELLI Report Released Date/Time: Mar 05, 2024 08:52 AM Reporting Lab: [place] [phone] Performing Lab: [place] [phone] CBC BASOPHILS [#/VOLUME] IN BLOOD BY AUTOMATED COUNT 0.01 10*3/uL 0.00 - 0.20 03/05 Specimen Type: BLOOD No comment entered. Ordering Provider: MUKESH MARINELLI Report Released Date/Time: Mar 05, 2024 08:52 AM Reporting Lab: [place] [address] Performing Lab: [address] COMPREHE NSIVE METABOLI C PANEL CREATININE [MASS/VOLU ME] IN SERUM OR PLASMA 0.92 mg/dL 0.7 - 1.3 03/05 Specimen Type: PLASMA Comment: No hemolysis noted. Ordering Provider: MUKESH MARINELLI Report Released Date/Time: Mar 05, 2024 08:52 AM Reporting Lab: [address] [place] [address] Performing Lab: [facility] [address] [facility] [address] [facility] COMPREHE NSIVE METABOLI C PANEL UREA NITROGEN [MASS/VOLU ME] IN SERUM OR PLASMA 15.6 mg/dL 9.0 - 25.0 03/05 Specimen Type: PLASMA Comment: No hemolysis noted. Ordering Provider: MUKESH MARINELLI Report Released Date/Time: Mar 05, 2024 08:52 AM Reporting Lab: [place] [address] [facility] [address] Performing Lab: [place] [address] [facility] [address] [facility] COMPREHE NSIVE METABOLI C PANEL GLUCOSE [MASS/VOLU ME] IN SERUM OR PLASMA 153 mg/dL 72 - 99 03/05 H Specimen Type: PLASMA Comment: No hemolysis noted. Ordering Provider: MUKESH MARINELLI Report Released Date/Time: Mar 05, 2024 08:52 AM Reporting Lab: [place] [address] [facility] [address] Performing Lab: [place] [address] [facility] [address] [facility] COMPREHE NSIVE METABOLI C PANEL SODIUM [MOLES/VOL UME] IN SERUM OR PLASMA 136 meq/L 136 - 145 03/05 Specimen Type: PLASMA Comment: No hemolysis noted. Ordering Provider: MUKESH MARINELLI Report Released Date/Time: Mar 05, 2024 08:52 AM Reporting Lab: [place] [address] [facility] [address] Performing Lab: [address] [address] [facility] COMPREHE NSIVE METABOLI C PANEL POTASSIUM [MOLES/VOL UME] IN SERUM OR PLASMA 4.2 meq/L 3.5 - 5 03/05 Specimen Type: PLASMA Comment: No hemolysis noted. Ordering Provider: MUKESH MARINELLI Report Released Date/Time: Mar 05, 2024 08:52 AM Reporting Lab: [facility] [address] [facility] [address] Performing Lab: [facility] [address] [facility] [address] [facility] COMPREHE NSIVE METABOLI C PANEL CHLORIDE [MOLES/VOL UME] IN SERUM OR PLASMA 102 meq/L 98 - 107 03/05 Specimen Type: PLASMA Comment: No hemolysis noted. Ordering Provider: MUKESH MARINELLI Report Released Date/Time: Mar 05, 2024 08:52 AM Reporting Lab: [facility] [address] [facility] [address] Performing Lab: [facility] [address] [facility] [address] [facility] COMPREHE NSIVE METABOLI C PANEL CARBON DIOXIDE, TOTAL [MOLES/VOL UME] IN SERUM OR PLASMA 24 meq/L 22 - 31 03/05 Specimen Type: PLASMA Comment: No hemolysis noted. Ordering Provider: MUKESH MARINELLI Report Released Date/Time: Mar 05, 2024 08:52 AM Reporting Lab: [facility] [address] [facility] [address] Performing Lab: [facility] [address] [facility] [address] [facility] COMPREHE NSIVE METABOLI C PANEL CALCIUM [MASS/VOLU ME] IN SERUM OR PLASMA 9.6 mg/dL 8.4 - 10.4 03/05 Specimen Type: PLASMA Comment: No hemolysis noted. Ordering Provider: MUKESH MARINELLI Report Released Date/Time: Mar 05, 2024 08:52 AM Reporting Lab: [facility] [address] [facility] [address] Performing Lab: [facility] [address] [facility] [address] [facility] COMPREHE NSIVE METABOLI C PANEL PROTEIN [MASS/VOLU ME] IN SERUM OR PLASMA 9.3 g/dL 6 - 8.6 03/05 H Specimen Type: PLASMA Comment: No hemolysis noted. Ordering Provider: MUKESH MARINELLI Report Released Date/Time: Mar 05, 2024 08:52 AM Reporting Lab: [place] [address] [facility] [address] Performing Lab: [place] [address] [facility] [phone] [place] [address] COMPREHE NSIVE METABOLI C PANEL ALBUMIN [MASS/VOLU ME] IN SERUM OR PLASMA 3.6 g/dL 3.4 - 5 03/05 Specimen Type: PLASMA Comment: No hemolysis noted. Ordering Provider: MUKESH MARINELLI Report Released Date/Time: Mar 05, 2024 08:52 AM Reporting Lab: [address] [address] Performing Lab: [place] [address] [facility] [address] [facility] COMPREHE NSIVE METABOLI C PANEL BILIRUBIN. TOTAL [MASS/VOLU ME] IN SERUM OR PLASMA 0.9 mg/dL 0.2 - 1.2 03/05 Specimen Type: PLASMA Comment: No hemolysis noted. Ordering Provider: MUKESH MARINELLI Report Released Date/Time: Mar 05, 2024 08:52 AM Reporting Lab: [address] [address] Performing Lab: [place] [address] [facility] [address] [facility] COMPREHE NSIVE METABOLI C PANEL ALKALINE PHOSPHATAS E [ENZYMATIC ACTIVITY/V OLUME] IN SERUM OR PLASMA 79 U/L 40 - 150 03/05 Specimen Type: PLASMA Comment: No hemolysis noted. Ordering Provider: MUKESH MARINELLI Report Released Date/Time: Mar 05, 2024 08:52 AM Reporting Lab: [address] [address] Performing Lab: [facility] [address] [facility] [address] [facility] COMPREHE NSIVE METABOLI C PANEL ASPARTATE AMINOTRANS FERASE [ENZYMATIC ACTIVITY/V OLUME] IN SERUM OR PLASMA 45 U/L 5 - 34 03/05 H Specimen Type: PLASMA Comment: No hemolysis noted. Ordering Provider: MUKESH MARINELLI Report Released Date/Time: Mar 05, 2024 08:52 AM Reporting Lab: [address] [address] Performing Lab: [place] [address] [facility] [address] [facility] COMPREHE NSIVE METABOLI C PANEL ALANINE AMINOTRANS FERASE [ENZYMATIC ACTIVITY/V OLUME] IN SERUM OR PLASMA 25 U/L 8 - 40 03/05 Specimen Type: PLASMA Comment: No hemolysis noted. Ordering Provider: MUKESH MARINELLI Report Released Date/Time: Mar 05, 2024 08:52 AM Reporting Lab: [place] [address] [facility] [address] Performing Lab: [address] [phone] [place] [address] COMPREHE NSIVE METABOLI C PANEL GLOMERULAR FILTRATION RATE/1.73 SQ M.PREDICTE D [VOLUME RATE/AREA] IN SERUM, PLASMA OR BLOOD BY CREATININE -BASED FORMULA (CKD-EPI 2020) 108.5 60 03/05 Specimen Type: PLASMA Comment: No hemolysis noted. Ordering Provider: MUKESH MARINELLI Report Released Date/Time: Mar 05, 2024 08:52 AM Reporting Lab: [address] [address] Performing Lab: [address] [address] [facility] TROPONIN I TROPONIN I.CARDIAC [MASS/VOLU ME] IN SERUM OR PLASMA 0.013 ng/mL 0 - 0.033 03/05 Specimen Type: PLASMA Comment: No hemolysis noted. Ordering Provider: MUKESH MARINELLI Report Released Date/Time: Mar 05, 2024 08:52 AM Reporting Lab: [address] [address] Performing Lab: [facility] [address] [place] [address] [facility] TSH (MA-PB) THYROTROPI N [UNITS/VOL UME] IN SERUM OR PLASMA 0.283 u[IU]/mL 0.47 - 5 03/05 L Specimen Type: SERUM No comment entered. Ordering Provider: MUKESH MARINELLI Report Released Date/Time: Mar 05, 2024 09:39 AM Reporting Lab: [address] [address] Performing Lab: [address] [phone] [place] [address] TSH (MA-PB) THYROXINE (T4) FREE [MASS/VOLU ME] IN SERUM OR PLASMA 1.10 ng/mL 0.7 - 1.48 03/05 Specimen Type: SERUM No comment entered. Ordering Provider: MUKESH MARINELLI Report Released Date/Time: Mar 05, 2024 09:39 AM Reporting Lab: [facility] [address] [facility] [address] Performing Lab: [phone] [place] [address] CRP C REACTIVE PROTEIN [PRESENCE] IN SERUM OR PLASMA 0.6 mg/dL 0 - 0.5 01/25 H Specimen Type: PLASMA No comment entered. 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 Vital Sign Value Date Comments Source SYSTOLIC BLOOD PRESSURE 135 03/21/2024 12:20:00 [facility] DIASTOLIC BLOOD PRESSURE 83 03/21/2024 12:20:00 [facility] PAIN 6 03/21/2024 12:20:00 [facility] TEMPERATURE 99 03/21/2024 12:20:00 [facility] PULSE 128 03/21/2024 12:20:00 [facility] RESPIRATION 20 03/21/2024 12:20:00 [facility] SYSTOLIC BLOOD PRESSURE 101 03/16/2024 10:04:12 [facility] DIASTOLIC BLOOD PRESSURE 66 03/16/2024 10:04:12 [facility] PULSE OXIMETRY 98 03/16/2024 10:04:12 [facility] WEIGHT 195.5 03/16/2024 10:04:12 [facility] BMI 27kg/m2 03/16/2024 10:04:12 [facility] PAIN 6 03/16/2024 10:04:12 [facility] HEIGHT 71 03/16/2024 10:04:12 [facility] TEMPERATURE 97.7 03/16/2024 10:04:12 [facility] PULSE 107 03/16/2024 10:04:12 [facility] RESPIRATION 20 03/16/2024 10:04:12 [facility] SYSTOLIC BLOOD PRESSURE 134 03/05/2024 08:48:00 [facility] DIASTOLIC BLOOD PRESSURE 82 03/05/2024 08:48:00 [facility] PAIN 3 03/05/2024 08:48:00 [facility] TEMPERATURE 98 03/05/2024 08:48:00 [facility] PULSE 136 03/05/2024 08:48:00 [facility] RESPIRATION 18 03/05/2024 08:48:00 [facility] SYSTOLIC BLOOD PRESSURE 128 01/26/2024 13:15:48 [facility] DIASTOLIC BLOOD PRESSURE 86 01/26/2024 13:15:48 [facility] PULSE OXIMETRY 97 01/26/2024 13:15:48 [facility] WEIGHT 220.1 01/26/2024 13:15:48 [facility] BMI 31kg/m2 01/26/2024 13:15:48 [facility] PAIN 4 01/26/2024 13:15:48 [facility] HEIGHT 71 01/26/2024 13:15:48 [facility] TEMPERATURE 98 01/26/2024 13:15:48 [facility] PULSE 80 01/26/2024 13:15:48 [facility] RESPIRATION 16 01/26/2024 13:15:48 [facility] SYSTOLIC BLOOD PRESSURE 115 01/14/2024 08:55:32 [facility] DIASTOLIC BLOOD PRESSURE 76 01/14/2024 08:55:32 [facility] PULSE OXIMETRY 97 01/14/2024 08:55:32 [facility] WEIGHT 218.3 01/14/2024 08:55:[address] [facility] BMI 31kg/m2 01/14/2024 08:55:32 [facility] PAIN 3 01/14/2024 08:55:32 [facility] TEMPERATURE 97.2 01/14/2024 08:55:32 [facility] PULSE 95 01/14/2024 08:55:32 [facility] RESPIRATION 16 01/14/2024 08:55:32 [facility] Encounters Combined list of: 1) Encounters from Department of [facility] Affairs facilities [facility] 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 Location Location Details Encounter Type Encounter Number Reason For Visit Attending Provider ADM Date DC Date Status Disposition [facility]) [facility] [id number] pan ADAM ADELA Ferris 05/08 Released w/o Limitations [facility]( Optomet ry Clinic) [facility] Element) OUTPATIENT [id number] 21 YRS OLD WITH BACK AND GROIN PAIN/1 WEEK MONI ZAPATA 08/25 Released w/o Limitations [facility]( Family Practic e Clinic- Count Includes [facility] Element ) [facility] Physical Therapy - Main) OUTPATIENT [id number] lower back pain MEGAN JUSTYNA M 09/03 Released w/o Limitations [facility]( 99[facility] Physica l Therapy - Main) Otoniel [facility](ZZ IS) OUTPATIENT [id number] NON-FLY MORIAH TRAYLOR 04/26 Released w/o Limitations [facility]( [facility]) [facility] OUTPATIENT [id number] Cough, TAY, Upset stomach MORIAH PHOENIX 01/08 [facility]itations [facility] Residency ) OUTPATIENT [id number] ÁLVARO RODRÍGUEZ 06/26 Released w/o Limitations [facility]( Family Medicin e Residen cy) [facility] ) OUTPATIENT [id number] destinya DELANO Mahoney 11/06 Released w/o Limitations [facility]( Family Medicin e Residen cy) [employer](War rior Operation al Med A-AD) OUTPATIENT [id number] Rt shldr pain x awhile. BEL CABRERA Montserrat 02/04 Released w/o Limitations [employer](W arrior Operati onal Med A-AD) [employer](War rior Operation al Med A-AD) TELE CONSULT [id number] Needs profile seen PCM Jan. BEL CABRERA Montserrat 03/04 [employer](W arrior Operati onal Med A-AD) [employer](OAB Emergency ) OUTPATIENT [id number] BOB GRIJALVA 03/17 Released w/o Limitations [employer](O AB Emergen cy) [employer](OAB Physical Therapy) OUTPATIENT [id number] right shoulde r THOMPSON Richey 03/18 Released w/o Limitations [employer](O AB Physica l Therapy ) [employer](OAB Physical Therapy) OUTPATIENT [id number] MATTHEW BOWMAN 03/26 Released w/o Limitations [employer](O AB Physica l Therapy ) [employer](OAB Physical Therapy) OUTPATIENT [id number] MATTHEW BOWMAN 03/31 Released w/o Limitations [employer](O AB Physica l Therapy ) [employer](OAB Physical Therapy) OUTPATIENT [id number] MARKEL LAZAR LP 04/09 Released w/o Limitations [employer](O AB Physica l Therapy ) [employer](OAB Physical Therapy) OUTPATIENT [id number] MARKEL LAZAR LP 04/10 Released w/o Limitations [employer](O AB Physica l Therapy ) [employer](OAB Physical Therapy) OUTPATIENT [id number] MATTHEW BOWMAN 04/18 Released w/o Limitations [employer](O AB Physica l Therapy ) [employer](OAB Physical Therapy) OUTPATIENT [id number] MARKEL LAZAR LP 04/19 Released w/o Limitations [employer](O AB Physica l Therapy ) [employer](OAB Physical Therapy) OUTPATIENT [id number] MATTHEW BOWMAN 04/23 Released w/o Limitations [employer](O AB Physica l Therapy ) [employer](OAB Physical Therapy) OUTPATIENT [id number] THOMPSON HURT 04/30 Released w/o Limitations [employer](O AB Physica l Therapy ) [employer](War rior Operation al Med A-AD) OUTPATIENT [id number] wrist prob BEL CABRERA R 05/17 Released w/o Limitations [employer](W arrior Operati onal Med A-AD) [employer](War rior Operation al Med A-AD) TELE CONSULT [id number] BLAINE MANCUSO 07/02 Other Not Elsewhere Classified [employer](W arrior Operati onal Med A-AD) [employer](Med 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 Standards 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 t) OUTPATIENT [id number] PHA ELVIRA STOVER 08/08 Released w/o Limitations [employer](M edical Standar ds Managem ent) [employer](War rior Operation al Med A-AD) OUTPATIENT [id number] f/u last visit BEL CABRERA R 08/21 Released w/o Limitations [employer](W arrior Operati onal Med A-AD) [employer](OAB Physical Therapy) OUTPATIENT [id number] right humerus pain THOMPSON HURT 09/24 Released w/o Limitations [employer](O AB Physica l Therapy ) [facility] Element B-1) OUTPATIENT [id number] bump on scalp and back IKE WICK 05/13 Released w/o Limitations [facility] Element B-1) [facility](ZZZRS N Deploymen t Hlth Assess) OUTPATIENT [id number] pre LOLIS PA 08/18 Released w/o Limitations [facility](ZZZ RSN Deploym ent Hlth Assess) [facility](N Mental Health) OUTPATIENT [id number] JAGDISH JENKINS 09/16 Released w/o Limitations [facility](N Mental Health) [facility] Element B-1) OUTPATIENT [id number] irritat ion around penis/ resched uled for a later date IKE WICK 09/23 Released w/o Limitations [facility] Element B-1) [facility](ZZZRS N Deploymen t Hlth Assess) OUTPATIENT [id number] Notes Entered by: Mark PRIEST 06 Oct 2011 1443 ------- ------- ------- ------- -- Pre Deploym ent Clearan CLAY Bolton 10/05 Released w/o Limitations [facility](ZZZ RSN Deploym ent Hlth Assess) Theater Facility OUTPATIENT [id number] 02/11 Released w/o Limitations Theater Facilit y Theater Facility OUTPATIENT [id number] Theater Provider 04/11 Released w/o Limitations Theater Facilit y [facility](ZZZRS N Deploymen t Hlth Assess) TELE CONSULT [id number] Notes Entered by: FRANCK CANNON I 04 May 2012 0942 ------- ------- ------- ------- -- Mbr deploymanan escamilla to an endemic malaria s area LOLIS PA 05/04 [facility](ZZZ RSN Deploym ent Hlth Assess) [facility] Element B-1) TELE CONSULT [id number] Notes Entered by: Eri FLORES 04 Jun 2012 0728 ------- ------- ------- ------- -- Sorethr oat / poss strep / hard to swallow / with fever /x 2-3 days SANDRA AGUILAR 06/04 [facility] Element B-1) [facility] Emergency Room) OUTPATIENT [id number] Notes Entered by: JOSUÉ NEGRON 05 Jun 2012 1440 ------- ------- ------- ------- -- 27y/o Nacho barillas throat/ tay ALYSE BAY DARRYL 06/05 Released w/o Limitations [facility] Emergen cy Room) [facility] Element B-1) TELE CONSULT [id number] Notes Entered by: DAJUAN CASTILLO 07 Jun 2012 1558 ------- ------- ------- ------- -- SORE THROAT/ TROUBLE SWALLOW ING NANNETTE CROW 06/07 [facility] Element B-1) [facility] Element B-1) OUTPATIENT [id number] ongoing cold symptom s, unable to drink h2O (sore throat) nicolea CHAU Kent 06/08 [facility] w/[facility] Limitations [facility] Element B-1) [facility] Element B-1) OUTPATIENT [id number] left testicl e pain x days painrat e 09/20 IKE WICK 07/21 Immediate Referral [facility] Element B-1) [facility]) OUTPATIENT [id number] Notes Entered by: JOSUÉ NEGRON 21 Jul 2012 1238 ------- ------- ------- ------- -- 27y/o M Testicl e px SALVADOR PEREZ 07/21 Released with Work/Duty Limitations [facility] Emergen cy Room) [facility] Element B-1) TELE CONSULT [id number] Notes Entered by: ILIA FORD 21 Jul 2012 1535 ------- ------- ------- ------- -- Needs er f/u appt NANNETTE CROW 07/21 [facility] Element B-1) [facility](ZZZRS N Deploymen t Hlth Assess) OUTPATIENT [id number] Notes Entered by: FRANCK CANNON I 12 Aug 2012 1305 ------- ------- ------- ------- -- DHA3 FRANCISCO GOSS 08/12 Released w/o Limitations [facility](ZZZ RSN Deploym ent Hlth Assess) [facility] Element B-1) OUTPATIENT [id number] right arm pain on and off is getting worse ARMIN VALDIVIA 11/15 Released w/o Limitations [facility] Element B-1) [facility] Physical Therapy) OUTPATIENT [id number] joint pain, localiz ed in the right shoulde TABATHA Jarrett 11/22 Released with Work/Duty Limitations [facility] Physica l Therapy ) [facility] Element B-1) OUTPATIENT [id number] bump in belt region x1mo ARMIN VALDIVIA A 01/14 Released w/o Limitations [facility] Element B-1) [facility] Element B-1) TELE CONSULT [id number] Notes Entered by: DREA BOLTON 18 Jan 2013 1054 ------- ------- ------- ------- -- RAD results [facility] 01/18 [facility] Element B-1) [facility] Element B-1) OUTPATIENT [id number] poss abscess lower abdomen [facility] 01/21 Released w/o Limitations [facility] Element B-1) [facility] General Surgery) OUTPATIENT [id number] Abdomen Mass (___ cm)/ new pt SUDARSHAN BROWN 01/31 Released w/o Limitations [facility] General Surgery ) [facility] Emergency Room) OUTPATIENT [id number] Notes Entered by: FLYNN CAMPBELL 01 Feb 2013 1438 ------- ------- ------- ------- -- 28 GRACE Mcnulty 02/01 Sick at Home/Quarter s [facility] Emergen cy Room) [facility] General Surgery) OUTPATIENT [id number] PER SUDARSHAN BULLOCK 02/02 Released w/o Limitations [facility] General Surgery ) [facility] General Surgery) OUTPATIENT [id number] f/u per SUDARSHAN Bullock 02/03 Released w/o Limitations [facility] General Surgery ) [facility] General Surgery) OUTPATIENT [id number] per SUDARSHAN Bullock 02/08 Released w/o Limitations [facility] General Surgery ) [facility] Element B-1) OUTPATIENT [id number] skin conditi on in genital area DONYA JULIAN 05/27 Released w/o Limitations [facility] Element B-1) [facility] Public Health) OUTPATIENT [id number] Notes Entered by: YASMEEN YOST 01 Jul 2013 1538 ------- ------- ------- ------- -- PCS YASMEEN Yan 07/01 Released w/o Limitations [facility] Public Health) [facility] Element B-1) TELE CONSULT [id number] Notes Entered by: VEDA WHITING 01 Sep 2013 1112 ------- ------- ------- ------- -- Presc refill needed for skin conditi on NANNETTE CROW 09/01 [facility] Element B-1) [facility] Emergency Room) OUTPATIENT [id number] Notes Entered by: HIRAL DEL CASTILLO 28 Sep 2013 0750 ------- ------- ------- ------- -- 28 yo MIGUEL Edwards 09/28 Released with Work/Duty Limitations [facility] Emergen cy Room) [facility] N PHA Cell) OUTPATIENT [id number] Notes Entered by: YASMEEN YOST 18 Oct 2013 1027 ------- ------- ------- ------- -- NFTF PHA YASMEEN CLIFTON 10/18 Released w/o Limitations [facility](ZZZ RSN PHA Cell) [facility] N Deploymen t Hlth Assess) OUTPATIENT [id number] FRANCISCO JAMES 11/16 Released w/o Limitations [facility](ZZZ RSN Deploym ent Hlth Assess) [facility](SDL In and Out Processin g) TELE CONSULT [id number] Notes Entered by: LUIS MAJANO 29 Dec 2013 0936 ------- ------- ------- ------- -- In-Proc LUIS Strickland 12/29 [facility](SDL In and Out Process ing) [facility] Clinic Team C) OUTPATIENT [id number] Upper back and neck pain ADAMA COCHRAN 01/24 Released w/o Limitations [facility]) [facility]) TELE CONSULT [id number] Notes Entered by: CARLOS PISANO 2014 0852 ------- ------- ------- ------- -- XRAY results JORDYN PISANO Hang 01/27 [facility]) [facility]) OUTPATIENT [id number] Follow- up. Arm, hand, neck, shoulde r, and back pain. ADAMA COCHRAN 02/14 Released w/o Limitations [facility]) [facility]) OUTPATIENT [id number] Diffuse joint pains (arthra lgias) SALVADOR SHEEHAN 03/07 Released w/o Limitations [facility]) [facility]) OUTPATIENT [id number] follow up/ joint pain SALVADOR SHEEHAN 04/03 Released w/o Limitations [facility]) [facility]) OUTPATIENT [id number] Follow up appt SALVADOR SHEEHAN 04/18 Released w/o Limitations [facility]) [facility] Clinic Team [facility]) OUTPATIENT [id number] F/U on Profile ADAMA COCHRAN 04/20 Released w/o Limitations [facility]) [facility] Optometry ) OUTPATIENT [id number] Eye exam startin g med show time 0900 BEBETO VILLAFANA 05/02 Released w/o Limitations [facility]) [facility]) OUTPATIENT [id number] follow up/meds SALVADOR SHEEHAN 05/31 Released w/o Limitations [facility]) [facility] ) OUTPATIENT [id number] eye exam, on plaquen il BEBETO VILLAFANA 07/25 Released w/o Limitations [facility] Optomet ry) [facility]) OUTPATIENT [id number] Bump on top of head, have had it for a while but now it burst open. ADAMA COCHRAN 09/07 Released w/o Limitations [facility]) [facility]) TELE CONSULT [id number] LIMA CHRISTINE 09/12 [facility]) [facility]) OUTPATIENT [id number] possibl e cyst on left buttock s BENJAMIN BUENROSTRO 09/12 Released w/o Limitations [facility]) [facility]) OUTPATIENT [id number] cyst removal on scalp (consen t in [place]) ADAMA COCHRAN 09/14 Released w/o Limitations [facility]) [facility] Rheumatol ogy) TELE CONSULT [id number] Notes Entered by: Tenisha RICHARDS 20 Sep 2014 0809 ------- ------- ------- ------- -- Dr. Sheehan 's pt SALVADOR SHEEHAN 09/20 [facility] Rheumat ology) [facility] Emergency Room) OUTPATIENT [id number] Notes Entered by: ROSIE QUEZADA 06 Oct 2014 1809 ------- ------- ------- ------- -- 29 y/o M, poss skin abscess CIERRA STEPHENS 10/06 Released w/o Limitations [facility] Emergen cy Room) [facility]) OUTPATIENT [id number] Joint pains in wrists, ankles, heels. ADAMA COCHRAN 11/27 Released w/o Limitations [facility]) [facility]) OUTPATIENT [id number] GUILLERMO IS ELISA MILES 12/06 Released w/o Limitations [facility]) [facility] Public Health) OUTPATIENT [id number] Notes Entered by: Senthil HAMEED 01 Feb 2015 0849 ------- ------- ------- ------- -- ANNUAL ALICIA JAMES E 02/01 Released w/o Limitations [facility] Public Health) [facility]) TELE CONSULT [id number] Notes Entered by: Senthil HAMEED 01 Feb 2015 0950 ------- ------- ------- ------- -- DARRYN JAVED 02/01 [facility]) [facility] BHOP) OUTPATIENT [id number] DARLENE Audit C-score 6, (-) ALLEGRA JOHNSON 02/05 Released w/o Limitations [facility] BHOP) [facility]) OUTPATIENT [id number] ADAMA Hernandez 02/16 Released w/o Limitations [facility]) [facility]) OUTPATIENT [id number] follow up ELISA MILES 03/12 Released w/o Limitations [facility]) [facility]) OUTPATIENT [id number] MEB Follow- up JOHN DUMONT 03/16 Released w/o Limitations [facility]) [facility]) TELE CONSULT [id number] Notes Entered by: RABIA MILES 29 Mar 2015 1318 ------- ------- ------- ------- -- MRI f/u ELISA MILES 03/29 [facility]) [facility]) OUTPATIENT [id number] follow up ELISA MILES 05/07 Released w/o Limitations [facility]) [facility]) TELE CONSULT [id number] Notes Entered by: MARIS BADILLO 12 Jun 2015 1502 ------- ------- ------- ------- -- Initial /Annual RILO Results in JUD Gee 06/11 [facility]) [facility] L_FH_Clin ic_Team_B ) OUTPATIENT [id number] 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 LUI SA FORDE 08/15 Released w/o Limitations [facility]_FH_ Clinic_ Team_B) [facility]) TELE CONSULT [id number] Notes Entered by: MELE MANRIQUE 21 Aug 2015 1015 ------- ------- ------- ------- -- ASHLEY Bae 08/20 [facility]) [facility]) TELE CONSULT [id number] Notes Entered by: MELE MANRIQUE 24 Oct 2015 0804 ------- ------- ------- ------- -- ASHLEY Quintanilla 10/23 [facility]) [facility] L_FH_Clin ic_Team_B ) OUTPATIENT [id number] f/u er LUIS A Humphries 10/23 Released w/o Limitations [facility] SDL_FH_ Clinic_ Team_B) [facility] L_FH_Clin ic_Team_B ) OUTPATIENT [id number] Follow up on chest pain and cough CYNTHIA RANKIN 10/28 Released with Work/Duty Limitations [facility] SDL_FH_ Clinic_ Team_B) [facility]) TELE CONSULT [id number] Notes Entered by: MARIS BADILLO 25 Dec 2015 1101 ------- ------- ------- ------- -- AFPSHAW Keith 12/24 [facility]) [facility]) OUTPATIENT [id number] ADAMA Pedroza 01/07 Released w/o Limitations [facility]) [facility]) OUTPATIENT [id number] Vomitin g, diarrhe a and unable to hold down food or liquids LUIS A FORDE 02/25 Released w/o Limitations [facility]) [facility]) TELE CONSULT [id number] Notes Entered by: MARIS BADILLO 28 Feb 2016 1529 ------- ------- ------- ------- -- RESULTS OF Annual/ Initial NURIS PURCELL 02/27 [facility]) [facility] Base Op Med Cell) OUTPATIENT [id number] Notes Entered by: Mark BAKER 29 Feb 2016 0858 ------- ------- ------- ------- -- Annual PHA LUIS A FORDE 02/28 Released w/o Limitations [facility] Base Op Med Cell) [facility] Clinic [facility]) OUTPATIENT [id number] 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 ing CYNTHIA RANKIN 04/16 [facility] w/o Limitations [facility]) [facility]) OUTPATIENT [id number] shellfi sh allergy CYNTHIA RANKIN 04/23 [facility]ased w/o Limitations [facility]) [facility]) TELE CONSULT [id number] Notes Entered by: BRENNON ENGEL 26 May 2016 1217 ------- ------- ------- ------- -- resched AILIN Garcia 05/26 [facility]) [facility]) OUTPATIENT [id number] Knee pain when walking /CLAY Black 09/16 Released w/o Limitations [facility]) [facility]) OUTPATIENT [id number] Follow up ER visit: contusi on on toe CLAY FRANCISCO 10/06 Released w/o Limitations [facility]) [facility] Physical Therapy) OUTPATIENT [id number] Chondro malacia patella e, left knee OLIVIA BAXTER 10/07 Released w/o Limitations [facility] Physica l Therapy ) [facility] Clinic [facility]) TELE CONSULT [id number] Notes Entered by: MARIS BADILLO 08 Oct 2016 1511 ------- ------- ------- ------- -- RESULTS OF Annual/ Initial HERMAN ALVAREZ S 10/08 [facility]) [facility] Physical Therapy) OUTPATIENT [id number] JESSICA MOHAN 10/10 Released w/o Limitations [facility] Physica l Therapy ) [facility]) TELE CONSULT [id number] Notes Entered by: CRISTELA GARCIA 20 Oct 2016 0940 ------- ------- ------- ------- -- Network Results - Trauma and Joint Surgery - 09/2016 JOHN DUMONT 10/20 [facility]) [facility] Physical Therapy) OUTPATIENT [id number] JESSICA MOHAN 10/20 Released w/o Limitations [facility] Physica l Therapy ) [facility]) TELE CONSULT [id number] Notes Entered by: MARAH MIGUEL 28 Nov 2016 1330 ------- ------- ------- ------- -- Contact Pt about vasecto my appoint ment MARAH GUTIERREZ 11/28 [facility]) [facility]) OUTPATIENT [id number] Vasecto my Appoint ment FEMI BERT JENNIFER 11/28 Released w/o Limitations [facility]) [facility] Urology) OUTPATIENT [id number] Encount er for sterili zation ELISA BRINK 12/22 Released w/o Limitations [facility] Urology ) [facility]) TELE CONSULT [id number] Notes Entered by: BARRY POST 26 Dec 2016 1349 ------- ------- ------- ------- -- Request ing Rx for Albenda zole for pin worms BARRY POST 12/26 [facility]) [facility] Urology) OUTPATIENT [id number] LIU Gallegos 01/21 [facility]ased w/o Limitations [facility] Urology ) [facility]) OUTPATIENT [id number] Notes Entered by: MILIND LATHAM 30 Jan 2017 1444 ------- ------- ------- ------- -- walk in BARRY POST 01/30 Released w/o Limitations [facility]) [facility]) OUTPATIENT [id number] Pain on heel on left foot/Ja w pain on right of face. LAINEY CUBA 03/10 Released w/o Limitations [facility]) [facility] Op Med Cell) TELE CONSULT [id number] Notes Entered by: MARY ESPINOZA 12 Mar 2017 1220 ------- ------- ------- ------- -- Priorit SHAW Miller 03/12 [facility] Base Op Med Cell) [facility] BHOP) OUTPATIENT [id number] MARCELO CAUSEY 03/16 Released w/o Limitations [facility] BHOP) [facility]) OUTPATIENT [id number] BERT KELLEY 03/18 Released w/o Limitations [facility]) [facility]) OUTPATIENT [id number] vomitin g/diarr BERT Shelton 03/18 Released w/o Limitations [facility]) [facility] Team [facility]) TELE CONSULT [id number] Notes Entered by: Kelsie BURGESS 25 Mar 2017 1237 ------- ------- ------- ------- -- Lab results BARRY POST 03/25 [facility]) [facility] Clinic Team [facility]) OUTPATIENT [id number] severe jaw/ear pain LAINEY CUBA 07/23 Released w/o Limitations [facility]) [facility] Clinic Team C) TELE CONSULT [id number] Notes Entered by: GLORIA VELASQUEZ 13 Oct 2017 1609 ------- ------- ------- ------- -- Medicat ion refill AILIN Correa 10/13 [facility]) [facility] Base Op Med Cell) OUTPATIENT [id number] KELLY RAHMAN 11/11 Released w/o Limitations [facility] Base Op Med Cell) [facility] Mental Health) OUTPATIENT [id number] GERARDO CULVER 11/18 Released w/o Limitations [facility]) [facility] Hearing Conservat ion) OUTPATIENT [id number] Notes Entered by: SHANNON CARVER 24 Nov 20172034 ------- ------- ------- ------- -- Referen Audiogr am CHANTELLE CARVER 11/24 Released w/o Limitations [facility] Conserv ation) [facility] Base Op Med Cell) OUTPATIENT [id number] Notes Entered by: KELLY TIM 27 Jul 2018 1026 ------- ------- ------- ------- -- post deploym ent KELLY TIM 07/27 Released w/o Limitations [facility] Base Op Med Cell) [facility] Base Op Med Cell) OUTPATIENT [id number] mha- [id number] KELLY TIM 09/08 Released w/o Limitations [facility] Base Op Med Cell) [facility] Base Op Med Cell) OUTPATIENT [id number] Notes Entered by: Ester FLORES 14 Sep 2018 0848 ------- ------- ------- ------- -- DoD MARYURI OSORIO 09/14 Released w/o Limitations [facility] Base Op Med Cell) [facility]) OUTPATIENT [id number] pain in leg while working out CLAY ECHEVERRIA 09/20 Released w/o Limitations [facility] Clinic [facility]) [facility] Physical Therapy) OUTPATIENT [id number] Pain in left knee PATSY MITCHELL 09/28 Released w/o Limitations [facility] Physica l Therapy ) [facility] Clinic [facility]) OUTPATIENT [id number] PAC 1330 Profile request for leg pain/PT TEST NEXT WEEK. DO NOT RESCHED MARYURI DE LA PAZ 09/29 Released w/o Limitations [facility]) [facility]) TELE CONSULT [id number] Notes Entered by: GERMAINE LUCIO 18 Oct 2018 0756 ------- ------- ------- ------- -- DEUCE Valenzuela 10/18 [facility]) [facility] Physical Therapy) OUTPATIENT [id number] LETHA OTERO 10/18 Released w/o Limitations [facility] Physica l Therapy ) [facility] Physical Therapy) OUTPATIENT [id number] AZ GONZALEZ 10/20 Released w/o Limitations [facility] Physica l Therapy ) [facility]) OUTPATIENT [id number] Sharp pain in throat MARYURI MCKAY 10/21 Released w/o Limitations [facility]) [facility]) TELE CONSULT [id number] Notes Entered by: MARIS BADILLO 22 Oct 2018 1444 ------- ------- ------- ------- -- RTD Notific ation due to change of MSD DONYA BARNEY 10/22 [facility]) [facility] Base Op Med Cell) OUTPATIENT [id number] DRHA3 [facility] [id number] KELLY TIM Alton 11/01 Released w/o Limitations [facility] Base Op Med Cell) [facility] Physical Therapy) OUTPATIENT [id number] PATSY MITCHELL 12/28 Released w/o Limitations [facility] Physica l Therapy ) [facility] Conserv[facility] ion) OUTPATIENT [id number] Notes Entered by: Mark WHYTE 04 Jan 2019 0838 ------- ------- ------- ------- -- Audiogr am SHPE MIKAYLA WHYTE 01/04 Released w/o Limitations [facility] Conserv ation) [facility]) OUTPATIENT [id number] PAC SHPE 1240 MARYURI MCKAY 01/05 Released w/o Limitations [facility] Clinic [facility]) [facility] Optometry ) OUTPATIENT [id number] Eye Exam OG CHILD 02/03 Released w/o Limitations [facility] Optomet ry) [facility] Physical Therapy) OUTPATIENT [id number] PATSY MITCHELL 02/03 Released w/o Limitations [facility] Physica l Therapy ) [facility] Clinic Team C) TELE CONSULT [id number] Notes Entered by: BARRY POST 15 Feb 2019 0826 ------- ------- ------- ------- -- RELAY HEALTH: Request s MFR r/t kidney stone MARYURI MCKAY 02/15 [facility]) [facility] Clinic Team C) TELE CONSULT [id number] Notes Entered by: BARRY POST 24 Feb 2019 1056 ------- ------- ------- ------- -- RELAY HEALTH: FAUSTO DONYA Giraldo 02/24 Released to Self Care [facility] Clinic Team C) 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
OSMANI ROBERTSON T 11/25 [facility] Outpatient Encounter [id number] [id number] 2 11/26 [facility] Outpatient Encounter [id number] [id number] DHARA JENKINS A 11/27 [facility] Outpatient Encounter [id number] [id number] HEPPAGAPITO L 12/05 [facility] Outpatient Encounter [id number] [id number] DEAN MORTON MMAD T 12/26 [facility] Outpatient Encounter [id number] 01/07 [facility] Outpatient Encounter [id number] [id number] Ester BECKWITH F 02/04 [facility] HC PRO PHONE CALL 21-30 MIN [id number] [id number] Diagnos is: ICD-10- CM Z91.89 Oth persona l risk factors , not elsewhe re classif ied<br/ > Ester BECKWITH F 02/05 [facility] Outpatient Encounter [id number] [id number] 03/24 [facility] Outpatient Encounter [id number] 03/27 [facility] Outpatient Encounter [id number] [id number] SABINA MARQUEZ 04/02 [facility] QNHP OL DIG ASSMT&MGMT 5-10 [id number] [id number] Diagnos is: ICD-10- CM U07.1 COVID-1 9
JERAD RAMIREZ 04/17 [facility] Outpatient Encounter [id number] [id number] 04/17 [facility] Outpatient Encounter [id number] [id number] 2 05/02 [facility] OFFICE O/P EST MOD 30 MIN [id number] [id number] Diagnos is: ICD-10- CM R05.2 Subacut e cough<b r/> YUSUF MUNSON EE L 05/20 [facility] Outpatient Encounter [id number] [id number] Diagnos is: ICD-10- CM R05.9 Cough, 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
DEAN MORTOND T 06/03 [facility] Outpatient Encounter [id number] [id number] 06/03 [facility] Outpatient Encounter [id number] [id number] MEGHAN FLORES 06/08 [facility] Outpatient Encounter [id number] [id number] MEGHAN FLORES 06/10 [facility] Outpatient Encounter [id number] [id number] 07/08 [facility] Outpatient Encounter [id number] [id number] MEGHAN FLORES 07/12 [facility] Outpatient Encounter [id number] [id number] MEGHAN FLORES 08/11 [facility] Outpatient Encounter [id number] [id number] JUDIEFILIPPO HansonKENIA P 08/11 [facility] QNHP OL DIG ASSMT&MGMT 5-10 [id number] Diagnos is: ICD-10- CM R94.5 Abnorma l results of liver functio n studies
JUDIEFILIPPO HansonKENIA P 08/11 [facility] Outpatient Encounter [id number] 08/12 [facility] PSYTX W PT 30 MINUTES [id number] [id number] Diagnos is: ICD-10- CM Z63.0 Problem s in relatio nship with spouse or partner
OSMANI ROBERTSON T 08/13 [facility] Outpatient Encounter [id number] 08/16 [facility] Outpatient Encounter [id number]. [id number] 08/17 [facility] Outpatient Encounter [id number] OSMANI ROBERTSON T 08/18 [facility] Outpatient Encounter [id number] 3 MEGHAN FLORES 08/18 [facility] Outpatient Encounter [id number] [id number] 2 Ester GUAJARDO 09/01 [facility] Outpatient Encounter [id number] [id number] 4 09/17 [facility] Outpatient Encounter [id number] [id number] 2 10/06 [facility] OFFICE O/P EST MOD 30 MIN [id number] [id number] 3 Diagnos is: ICD-10- CM R05.3 Chronic cough<b r/> GENO ALVARADOKelsie 10/13 [facility] SPACER WITHOUT MASK [id number] [id number] Diagnos is: ICD-10- CM R05.3 Chronic cough<b r/> ROBERT SWANN 10/13 [facility] Outpatient Encounter [id number] [id number] 5 10/18 [facility] Outpatient Encounter [id number] [id number] 2 10/19 [facility] Outpatient Encounter [id number] [id number] 2 Ester GUAJARDO A 10/25 [facility] Outpatient Encounter [id number] [id number] MEGHAN FLORES 11/11 [facility] Outpatient Encounter [id number] [id number] Ester GUAJARDO A 11/11 [facility] QNHP OL DIG ASSMT&MGMT 5-10 [id number] Diagnos is: ICD-10- CM R05.3 Chronic cough<b r/> Ester GUAJARDO A 11/12 [facility] Outpatient Encounter [id number] DEAN MORTON MMAD T 11/17 [facility] Outpatient Encounter [id number] MEGHAN FLORES 11/22 [facility] OFFICE O/P EST MOD 30 MIN [id number] Diagnos is: ICD-10- CM H60.92 Unspeci fied otitis externa , left ear<br/ > DEAN MORTON MMAD T 11/24 [facility] Outpatient Encounter [id number] 11/25 [facility] HC PRO PHONE CALL 21-30 MIN [id number] Diagnos is: ICD-10- CM F43.10 Post-tr aumatic stress disorde r, 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
SANTI TRUJILLO L 11/26 [facility] Outpatient Encounter [id number] SANTI TRUJILLO L 11/30 [facility] HC PRO PHONE CALL 5-10 MIN [id number] Diagnos is: ICD-10- CM G47.00 Insomni a, 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
SANTI TRUJILLO L 11/30 [facility] Outpatient Encounter [id number] DEAN MORTON MMAD T 12/[facility] Outpatient Encounter [id number] 4 12/06 [facility] Outpatient Encounter [id number] 4 12/10 [facility] Outpatient Encounter [id number] Ester GUAJARDO A 12/28 [facility] Outpatient Encounter [id number] 4 01/05 [facility] Outpatient Encounter [id number] Diagnos is: ICD-10- CM M79.643 Pain in 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 hand
Ester ESPINOZA ONSTANCE D 01/05 [facility] Outpatient Encounter [id number] MARGARET GARCÍA 01/08 [facility] EMERGENCY DEPT VISIT MOD MDM [id number] Diagnos is: ICD-10- CM G56.03 Carpal tunnel syndrom e, bilater al upper limbs<b r/> BING ORTIZ 01/08 [facility] Outpatient Encounter [id number] MARGARET GARCÍA C 01/08 [facility] OFF/OP EST MAY X REQ PHY/QHP [id number] [id number] 3 Diagnos is: ICD-10- CM Z23 Encount er for immuniz ation<b r/> JAZMINE ROBERT 01/08 [facility] PROGRAM INTAKE ASSESSMENT [id number] [id number] 7 Diagnos is: ICD-10- CM R05.9 Cough, 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
ROSIE LAKHANI TAY R 01/13 [facility] OFFICE O/P EST MOD 30 MIN [id number] [id number] Diagnos is: ICD-10- CM R05.3 Chronic cough<b r/> ANAYA RI 01/13 [facility] Outpatient Encounter [id number] 01/19 [facility] Outpatient Encounter [id number] [id number] 01/19 [facility] Outpatient Encounter [id number] [id number] 5 Diagnos is: ICD-10- CM M25.50 Pain in 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 joint<b r/> JORGITOCATHI Butterfield R 01/19 [facility] Outpatient Encounter [id number] [id number] 5 Ester BECKWITH 01/21 [facility] OFF/OP EST MAY X REQ PHY/QHP [id number] [id number] Diagnos is: ICD-10- CM 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
Ester BECKWITH F 01/21 [facility] OFFICE O/P EST MOD 30 MIN [id number] Diagnos is: ICD-10- CM M13.139 Monoart hritis, not elsewhe re classif ied, 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 wrist<b r/> SELENE,MOHA MMAD T 01/25 [facility] Outpatient Encounter [id number] 01/26 [facility] SPEECH/HEA RING THERAPY [id number] [id number] 5 Diagnos is: ICD-10- CM R49.8 Other voice and resonan ce disorde rs
VIRAJ BAKER N 01/27 [facility] Outpatient Encounter [id number] [id number] 5 KUNAL ALEGRE 01/31 [facility] Outpatient Encounter [id number] [id number] SELENEDEAN MMAD T 02/01 [facility] FAMILY PSYTX W/PT 50 MIN [id number] [id number] Diagnos is: ICD-10- CM Z63.0 Problem s in relatio nship with spouse or partner
KING NOELA A 02/01 [facility] Outpatient Encounter [id number] [id number] 1 MEGHAN FLORES 02/02 [facility] Outpatient Encounter [id number] [id number] EMGHAN FLORES 02/02 [facility] MUSCLE TEST NONPARASPI NAL [id number] [id number] Diagnos is: ICD-10- CM G56.03 Carpal tunnel syndrom e, bilater al upper limbs<b r/> GAYLE AG 02/07 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
KYLAH STEVENS 02/08 [facility] Outpatient Encounter [id number] [id number] KYLAH STEVENS 02/10 [facility] Outpatient Encounter [id number] [id number] MEGHAN FLORES 02/15 [facility] Outpatient Encounter [id number] [id number] Diagnos is: ICD-10- CM G56.03 Carpal tunnel syndrom e, bilater al upper limbs<b r/> CATHI BULL R 02/16 [facility] Outpatient Encounter [id number] MEGHAN FLORES 02/22 [facility] Outpatient Encounter [id number] [id number] Diagnos is: ICD-10- CM G47.00 Insomni a, 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
DEAN MORTON MMAD T 02/24 [facility] Outpatient Encounter [id number] [id number] 03/02 [facility] Outpatient Encounter [id number] [id number] 03/04 [facility] Outpatient Encounter [id number] [id number] 03/04 [facility] Outpatient Encounter [id number] [id number] Ester BECKWITH F 03/04 [facility] Outpatient Encounter [id number] MUKESH MARINELLI S 03/05 [facility] EMERGENCY DEPT VISIT [facility] [id number] [id number] Diagnos is: ICD-10- CM R07.9 Chest pain, 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
Ester BECKWITH F 03/08 [facility] OFF/OP CNSLTJ NEW/EST LOW 30 [id number] [id number] Diagnos is: ICD-10- CM G56.03 Carpal tunnel syndrom e, bilater al upper limbs<b r/> PREVEL,CHR ISTOPHER D 03/14 [facility] OFFICE O/P EST HI 40 MIN [id number] [id number] Diagnos is: ICD-10- CM G56.00 Carpal tunnel syndrom e, 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 upper limb
COUPER,ISAIAS LOPEZ G 03/16 [facility] Outpatient Encounter [id number] [id number] EMGHAN FLORES 03/16 [facility] Outpatient Encounter [id number] [id number] MEGHAN FLORES D 03/17 [facility] EMR DPT VST MAYX REQ PHY/QHP [id number] [id number] Diagnos is: ICD-10- CM Z53.21 Proc/tr tmt not crd out d/t pt lv bef seen by [facility] care prov
ANGELA MONTANO 03/21 [facility] Outpatient Encounter [id number] [id number] DEAN MORTON MMAD T 03/27 [facility] Outpatient Encounter [id number] DEAN MORTON MMAD T 03/29 [facility] FAMILY PSYTX W/PT 50 MIN [id number] [id number] Diagnos is: ICD-10- CM Z63.0 Problem s in relatio nship with spouse or partner
KING NOEL A 04/01 [facility] Outpatient Encounter [id number] 04/03 [facility] Outpatient Encounter [id number] [id number] LETI CADENA N 04/08 [facility] Procedures Combined list of: 1) Procedures from Department of [facility] Affairs facilities going back up to thelast 18 months, not all [place] non-surgical procedures are included; 2) All procedures from the Department of Defense facilities. Procedure Procedure Type Code Date Perfomer Comments Sourc e Preventive Medicine Administration Of Health Risk Questionnaire Patient-Focused Preventive Medicine Administration Of Health Risk Questionnaire Patient-Focused 02040 2018 KELLY TIM [facility] Internet Med Svc Qual Nonphys Healthcare Prof Up To 7 Days Estab Patient Internet Med Svc Qual Nonphys Healthcare Prof Up To 7 Days Estab Patient 84329 2018 KELLY TIM [facility] Physical Therapy Neuromuscular Re-education Physical Therapy Neuromuscular Re-education 36463 2018 [place] GONZALEZ PT A e ment Kinetic Training Each Additional 15 Minutes PT Assessment Kinetic Training Each Additional 15 Minutes 85206 2018 [place] GONZALEZ Physical Therapy: ___ Se ion Segments, 15 Minutes Each Physical Therapy: ___ Session Segments, 15 Minutes Each 80100 2018 [place] GONZALEZ Modalities Vasopneumatic Device Modalities Vasopneumatic Device 58109 2018 LETHA OTERO PT A e ment Kinetic Training Each Additional 15 Minutes PT Assessment Kinetic Training Each Additional 15 Minutes 13527 2018 LETHA OTERO Physical Therapy Neuromuscular Re-education Physical Therapy Neuromuscular Re-education 84428 2018 LETHA OTERO [facility] Physical Therapy: ___ Se ion Segments, 15 Minutes Each Physical Therapy: ___ Session Segments, 15 Minutes Each 19206 2018 LETHA OTERO [facility] Osteopathic Manip Treatment (OMT) 1-2 Body Regions Involved Osteopathic Manip Treatment (OMT) 1-2 Body Regions Involved 74799 2018 PATSY MITCHELL [facility] Physical Therapy Service Evaluation Low Complexity Physical Therapy Service Evaluation Low Complexity 76793 2018 PATSY MITCHELL [facility] Preventive Medicine Administration Of Health Risk Questionnaire Patient-Focused Preventive Medicine Administration Of Health Risk Questionnaire Patient-Focused 61634 2018 CELE MICHAEL [facility] Internet Med Svc Qual Nonphys Healthcare Prof Up To 7 Days Estab Patient Internet Med Svc Qual Nonphys Healthcare Prof Up To 7 Days Estab Patient 91019 2018 KELLY TIM [facility] Preventive Medicine Administration Of Health Risk Questionnaire Patient-Focused Preventive Medicine Administration Of Health Risk Questionnaire Patient-Focused 50278 2018 KELLY TIM [facility] Preventive Medicine Administration Of Health Risk Questionnaire Patient-Focused Preventive Medicine Administration Of Health Risk Questionnaire Patient-Focused 16272 2018 KELLY TIM [facility] Internet Med Svc Qual Nonphys Healthcare Prof Up To 7 Days Estab Patient Internet Med Svc Qual Nonphys Healthcare Prof Up To 7 Days Estab Patient 94982 2018 KELLY TIM [facility] Threshold Audiogram (Pure Tone) Automated Threshold Audiogram (Pure Tone) Automated 0208T 2017 CHANTELLE CARVER [facility] Psychometric Neuropsych Testing Battery Admin By Computer Psychometric Neuropsych Testing Battery Admin By Computer 48681 2017 GERARDO MONTIEL [facility] Preventive Medicine Administration Of Health Risk Questionnaire Patient-Focused Preventive Medicine Administration Of Health Risk Questionnaire Patient-Focused 06332 2017 KELLY TIM [facility] Internet Med Svc Qual Nonphys Healthcare Prof Up To 7 Days Estab Patient Internet Med Svc Qual Nonphys Healthcare Prof Up To 7 Days Estab Patient 89877 2017 KELLY TIM [facility] Non-Physician Phone Call To Patient/Provider Brief (5-10min) Non-Physician Phone Call To Patient/Provider Brief (5-10min) 17982 2016 BARRY POST Internet Med Svc Qual Nonphys Healthcare Prof Up To 7 Days Estab Patient Internet Med Svc Qual Nonphys Healthcare Prof Up To 7 Days Estab Patient 27230 2016 MARCELO MALCOLM Non-Physician Phone Call To Patient/Provider Brief (5-10min) Non-Physician Phone Call To Patient/Provider Brief (5-10min) 58392 2016 BARRY POST Anesthesia Lower Abdomen For Vasectomy, Unilateral/Bilateral Anesthesia Lower Abdomen For Vasectomy, Unilateral/Bilater al 42804 2016 LIU BARKLEY Surgery Vas Deferens Vasectomy Surgery Vas Deferens Vasectomy 82325 2016 LIU BARKLEY Non-Physician Phone Call To Pt/Provider Lengthy (21-30 min) Non-Physician Phone Call To Pt/Provider Lengthy (21-30 min) 88192 2016 BARRY POST Physician Supervised Group Educational Services Physician Supervised Group Educational Services 68360 2016 ELISA BRINK [facility] Psychometric Emotional / Behavioral A e ment Psychometric Emotional / Behavioral Assessment 14125 2016 BERT KAHN [facility] Modalities Cryotherapy Cold Packs Modalities Cryotherapy Cold Packs 19056 2016 JESSICA MOHAN A isted Exercises For ROM Assisted Exercises For ROM 44729 2016 JESSICA MOHAN A isted Exercises For ROM Assisted Exercises For ROM 36176 2016 JESSICA MOHAN Physical Therapy Service Evaluation Low Complexity Physical Therapy Service Evaluation Low Complexity 32849 2016 OLIVIA BAXTER Internet Med Svc Qual Nonphys Healthcare Prof Up To 7 Days Estab Patient Internet Med Svc Qual Nonphys Healthcare Prof Up To 7 Days Estab Patient 88140 2016 ASHLEY ENGEL [facility] Health And Behav A e mt Each 15 Min Initial A e ment Health And Behav Assessmt Each 15 Min Initial Assessment 25310 2014 ALLEGRA LASSITER [facility] Visual Valdivia Test Intermediate Examination Visual Valdivia Test Intermediate Examination 16423 2014 BEBETO VILLAFANA [facility] Scanning Computerized Ophthalmic Diagnostic Imaging Retina Scanning Computerized Ophthalmic Diagnostic Imaging Retina 03227 2014 BEBETO VILLAFANA [facility] Scanning Computerized Ophthalmic Diagnostic Imaging Retina Scanning Computerized Ophthalmic Diagnostic Imaging Retina 37398 2014 BEBETO VILLAFANA [facility] Determination Of Refractive State Determination Of Refractive State 82476 2014 BEBETO VILLAFANA Ophthalmological New Patient Start Comprehensive Care Ophthalmological New Patient Start Comprehensive Care 99728 2014 BEBETO VILLAFANA [facility] Postoperative Visit, Without Charge Postoperative Visit, Without Charge 42805 2012 SUDARSHAN BROWN Incision And Drainage Of Skin Absce Incision And Drainage Of Skin Abscess 01733 2012 SUDARSHAN BROWN He was consented, prepped and draped in the usual sterile fashion. Local anesthetic was infection and an incision was made down to the area of induration. No further fluid was drained and the pervious I&D site was found to communicated with the area of induration. Both areas were irrigated, packed and dressed with gauze. The patient tolerated the procedure well. [facility] Physical Therapy: ___ Se ion Segments, 15 Minutes Each Physical Therapy: ___ Session Segments, 15 Minutes Each 77869 2012 TABATHA CROCKETT [facility] Physical Therapy Service Evaluation Physical Therapy Service Evaluation 92562 2012 TABATHA CROCKETT [facility] Psychometric Neuropsych Testing Battery Admin By Computer Psychometric Neuropsych Testing Battery Admin By Computer 28641 2011 JAGDISH JENKINS [facility] Physical Therapy: ___ Se ion Segments, 15 Minutes Each Physical Therapy: ___ Session Segments, 15 Minutes Each 30167 2010 THOMPSON HURT [facility] Physical Therapy Service Re-Evaluation Physical Therapy Service Re-Evaluation 32156 2010 THOMPSON HURT [facility] Non-Physician Phone Call To Patient/Provider Brief (5-10min) Non-Physician Phone Call To Patient/Provider Brief (5-10min) 26104 2010 BLAINE LOYD [facility] Physical Therapy Service Re-Evaluation Physical Therapy Service Re-Evaluation 18031 2010 THOMPSON HURT [facility] Modalities Ultrasound Modalities Ultrasound 91305 2010 MATTHEW BOWMAN [facility] Physical Therapy Neuromuscular Re-education Physical Therapy Neuromuscular Re-education 39766 2010 MATTHEW BOWMAN [facility] Physical Therapy: ___ Se ion Segments, 15 Minutes Each Physical Therapy: ___ Session Segments, 15 Minutes Each 42823 2010 MATTHEW BOWMAN [facility] Modalities Ultrasound Modalities Ultrasound 80263 2010 MARKEL LAZAR LP [facility] Physical Therapy: ___ Se ion Segments, 15 Minutes Each Physical Therapy: ___ Session Segments, 15 Minutes Each 23650 2010 MARKEL LAZAR LP [facility] Physical Therapy Neuromuscular Re-education Physical Therapy Neuromuscular Re-education 30694 2010 MARKEL LAZAR LP [facility] Modalities Ultrasound Modalities Ultrasound 00918 2010 MATTHEW BOWMAN Physical Therapy Neuromuscular Re-education Physical Therapy Neuromuscular Re-education 95043 2010 MATTHEW BOWMAN [facility] Physical Therapy: ___ Se ion Segments, 15 Minutes Each Physical Therapy: ___ Session Segments, 15 Minutes Each 18669 2010 MATTHEW BOWMAN [facility] Modalities Ultrasound Modalities Ultrasound 69801 2009 MARKEL LAZAR LP [facility] Physical Therapy Neuromuscular Re-education Physical Therapy Neuromuscular Re-education 11091 2009 MARKEL LAZAR LP [facility] Physical Therapy: ___ Se ion Segments, 15 Minutes Each Physical Therapy: ___ Session Segments, 15 Minutes Each 40291 2009 MARKEL LAZAR LP [facility] Modalities Ultrasound Modalities Ultrasound 11621 2009 MARKEL LAZAR LP [facility] Physical Therapy Neuromuscular Re-education Physical Therapy Neuromuscular Re-education 76717 2009 MARKEL LAZAR LP [facility] Physical Therapy: ___ Se ion Segments, 15 Minutes Each Physical Therapy: ___ Session Segments, 15 Minutes Each 57583 2009 MARKEL LAZAR LP [facility] Modalities Ultrasound Modalities Ultrasound 20902 2009 MATTHEW BOWMAN [facility] Physical Therapy Neuromuscular Re-education Physical Therapy Neuromuscular Re-education 19786 2009 MATTHEW BOWMAN [facility] Physical Therapy: ___ Se ion Segments, 15 Minutes Each Physical Therapy: ___ Session Segments, 15 Minutes Each 13656 2009 MATTHEW BOWMAN [facility] Modalities Ultrasound Modalities Ultrasound 95417 2009 MATTHEW BOWMAN Physical Therapy Neuromuscular Re-education Physical Therapy Neuromuscular Re-education 82884 2009 MATTHEW BOWMAN Physical Therapy: ___ Se ion Segments, 15 Minutes Each Physical Therapy: ___ Session Segments, 15 Minutes Each 75137 2009 MATTHEW BOWMAN Physical Therapy: ___ Se ion Segments, 15 Minutes Each Physical Therapy: ___ Session Segments, 15 Minutes Each 10993 2009 THOMPSON HURT Physical Therapy Service Evaluation Physical Therapy Service Evaluation 15008 2009 THOMPSON HURT Audiogram (Screening) Audiogram (Screening) 33641 2008 MORIAH PHOENIX Visual Valdivia Test Limited Examination Visual Valdivia Test Limited Examination 09274 2008 MORIAH PHOENIX Physical Therapy Service Evaluation Physical Therapy Service Evaluation 14619 2006 JUSTYNA GUZMAN [facility] Osteopathic Manip Treatment (OMT) 1-2 Body Regions Involved Osteopathic Manip Treatment (OMT) 1-2 Body Regions Involved 21345 2006 MONI ZAPATA [facility] Spectacles Services Fitting Monofocal Except For Aphakia Spectacles Services Fitting Monofocal Except For Aphakia 29191 2006 ADELA MEDINA Determination Of Refractive State Determination Of Refractive State 58276 2006 ADELA MEDINA [facility] Ophthalmological New Patient Start Comprehensive Care Ophthalmological New Patient Start Comprehensive Care 29949 2006 ADELA MEDINA [facility] Physical Therapy Service Re-Evaluation Physical Therapy Service Re-Evaluation 72618 PATSY MITCHELL [facility] Osteopathic Manip Treatment (OMT) 1-2 Body Regions Involved Osteopathic Manip Treatment (OMT) 1-2 Body Regions Involved 86377 PATSY MITCHELL [facility] Physical or manipulative therapy performed for maintenance rather than baptism PATSY MITCHELL [facility] Threshold Audiogram (Pure Tone) Automated Threshold Audiogram (Pure Tone) Automated 0208T MIKAYLA WHYTE [facility] Spectacles Services Fitting Monofocal Except For Aphakia Spectacles Services Fitting Monofocal Except For Aphakia 75955 OG CHILD 52145 5A [id number] [facility] Ophthalmological New Patient Start Comprehensive Care Ophthalmological New Patient Start Comprehensive Care 27353 CARMENOG JAIN Sreedhar [facility] Determination Of Refractive State Determination Of Refractive State 71206 CARMENOG JAIN Sreedhar [facility] INFUSION, NORMAL SALINE SOLUTION , 1000 CC 2008 [facility] PHYSICAL THERAPY EVALUATION 2006 [facility] OSTEOPATHIC MANIPULATIVE TREATMENT (OMT); 1-2 BODY REGIONS INVOLVED 2006 [facility] FITTING OF SPECTACLES, EXCEPT FOR APHAKIA; [...] ENDURANCE, RANGE OF MOTION AND FLEXIBILITY 2009 [facility] INJECTION, METHYLPREDNISOLONE SODIUM SUCCINATE, UP TO 125 MG 2009 [facility] PHYSICAL OR MANIPULATIVE THERAPY PERFORMED FOR MAINTENANCE RATHER THAN PROTESTANT 2018 [facility] DETERMINATION OF REFRACTIVE STATE 2018 [facility] PURE TONE AUDIOMETRY (THRESHOLD), AUTOMATED; AIR ONLY 2018 [facility] PHYSICAL OR MANIPULATIVE THERAPY PERFORMED FOR MAINTENANCE RATHER THAN PROTESTANT 2018 [facility] ADMINISTRATION OF PATIENT-FOCUSED HEALTH RISK ASSESSMENT INSTRUMENT (EG, HEALTH HAZARD APPRAISAL) WITH SCORING AND DOCUMENTATION, PER STANDARDIZED INSTRUMENT 2018 [facility] THERAPEUTIC ACTIVITIES, DIRECT (ONE-ON-ONE) PATIENT CONTACT (USE OF DYNAMIC ACTIVITIES TO IMPROVE FUNCTIONAL PERFORMANCE), EACH 15 MINUTES 2018 [facility] APPLICATION OF A MODALITY TO 1 OR MORE AREAS; VASOPNEUMATIC DEVICES 2018 [facility] OSTEOPATHIC MANIPULATIVE TREATMENT (OMT); 1-2 BODY [...] TONE AUDIOMETRY (THRESHOLD), AUTOMATED; AIR ONLY 2017 [facility] NEUROPSYCHOLOGICAL TESTING (EG, [place] CARD SORTING TEST), ADMINISTERED BY A COMPUTER, WITH QUALIFIED HEALTH BURLESQUE DANCER INTERPRETATION AND REPORT 2017 [facility] ADMINISTRATION OF [...] PROVIDE W/IN THE PREV 7 DAYS,USE THE Team[employer]/SIMILAR [employer] NETWORK 2016 [facility] TELE ASSESS & MGT SRV PROV QUAL NONPHYS HLTH CARE PRO TO EST PAT,PARENT,GUARD NOT ORIG REL ASSESS & MGT SRV PROV W/IN PREV 7 DAYS NOR LEAD ASSESS & MGT SRV/PX W/IN NXT 24 HR/SOON APT;5-10 MIN MED DIS 2016 [facility] ANESTHESIA FOR PROCEDURES ON MALE GENITALIA (INCLUDING OPEN URETHRAL PROCEDURES); VASECTOMY, UNILATERAL/BILATERAL 2016 [facility] PHYS/OTH QUALIFIED HEALTH BURLESQUE DANCER QUALIFIED,EDUCATION,TR AIN,LICENSURE/REGULATI ON (WHEN APPLICABLE) EDUC SER RENDERED TO PATS IN A GRP SETTING (EG,,OBESITY,O R DIABETIC INSTRUCT) 2016 [facility] BRIEF EMOTIONAL/BEHAVIORAL ASSESSMENT (EG, DEPRESSION INVENTORY, ATTENTION-DEFICIT/HYPE RACTIVITY DISORDER [ADHD] SCALE), WITH SCORING AND DOCUMENTATION, PER STANDARDIZED INSTRUMENT 2016 [facility] APPLICATION OF A MODALITY TO 1 OR MORE AREAS; HOT OR COLD PACKS 2016 [facility] THERAPEUTIC PROCEDURE, 1 OR MORE AREAS, EACH 15 MINUTES; THERAPEUTIC EXERCISES TO DEVELOP STRENGTH AND ENDURANCE, RANGE OF MOTION AND FLEXIBILITY 2016 [facility] PHYSICAL THERAPY EVALUATION:LOW COMPLEXITY,REQ:HIST W NO PERS FACT &/COMORB THAT IMPACT PLAN OF CARE;CLIN DECIS MAKING OF LOW COMPLEXITY,TYPICALLY,2 0 MIN ARE SPENT [id number] W THE PATIENT &/FAMILY 2016 [facility] ONLINE ASSESS &MANAG SERV PROVIDE,A QUAL NONPHYS HCP TO AN ESTABLISHED PAT/GUARDIAN,NOT [facility] ASSESS &MANAG SERV PROVIDE W/IN THE PREV 7 DAYS,USE THE [employer]/SIMIL[employer] NETWORK 2016 [facility] HEALTH&BEHAV ASSESSMENT (EG, HEALTH-FOC CLINICAL INTERVIEW, BEHAVIORAL OBSERVATIONS, PSYCHOPHYSICOLOGICAL MONITOR, HEALTH-ORIENT QUESTIONNAIRES), EA 15 MIN [id number] W THE PATIENT; INIT ASSESSMENT 2014 [facility] VISUAL FIELD EXAMINATION, UNI OR BILATERAL, WITH MEDICAL DIAGNOSTIC EVAL; INTERMEDIATE EXAM (EG, AT LEAST 2 ISOPTERS ON GOLDMANN PERIMETER, OR SEMIQUANT, AUTO SUPRATHRESHOLD SCREEN PROGRAM, MARSHALL 2014 [facility] SCANNING COMPUTERIZED OPHTHALMIC DIAGNOSTIC IMAGING, POSTERIOR SEGMENT, WITH INTERPRETATION AND REPORT, UNILATERAL OR BILATERAL; RETINA 2014 [facility] THERAPEUTIC, PROPHYLACTIC, OR DIAGNOSTIC INJECTION (SPECIFY SUBSTANCE OR DRUG); SUBCUTANEOUS OR INTRAMUSCULAR 2013 [facility] POSTOPERATIVE FOLLOW-UP VISIT, NORMALLY INCLUDED IN THE SURGICAL PACKAGE, INDICATE THAT EVALUATION & MANAGEMENT SERVICE WAS PERFORMED DURING A POSTOPERATIVE PERIOD REASON RELATED ORIGINAL PROCEDURE 2012 [facility] POSTOPERATIVE FOLLOW-UP VISIT, NORMALLY INCLUDED IN THE SURGICAL PACKAGE, INDICATE THAT EVALUATION & MANAGEMENT SERVICE WAS PERFORMED DURING A POSTOPERATIVE PERIOD REASON RELATED ORIGINAL PROCEDURE 2012 [facility] INCISION AND DRAINAGE OF ABSCESS (EG, CARBUNCLE, SUPPURATIVE HIDRADENITIS, CUTANEOUS OR SUBCUTANEOUS ABSCESS, CYST, FURUNCLE, OR PARONYCHIA); SIMPLE OR SINGLE 2012 [facility] INCISION AND DRAINAGE OF ABSCESS (EG, CARBUNCLE, SUPPURATIVE HIDRADENITIS, CUTANEOUS OR SUBCUTANEOUS ABSCESS, CYST, FURUNCLE, OR PARONYCHIA); COMPLICATED OR MULTIPLE 2012 [facility] THERAPEUTIC PROCEDURE, 1 OR MORE AREAS, EACH 15 MINUTES; THERAPEUTIC EXERCISES TO DEVELOP STRENGTH AND ENDURANCE, RANGE OF MOTION AND FLEXIBILITY 2012 [facility] NEUROPSYCHOLOGICAL TESTING (EG, [place] CARD SORTING TEST), ADMINISTERED BY A COMPUTER, WITH QUALIFIED HEALTH BURLES[place] DANCER INTERPRETATION AND REPORT 2011 [facility] Social History Combined list of available smoking, tobacco, and other 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 Social History Type Response Date Comment [facility] e Tobacco smoking status NHIS [place]-TO[place]AC[place] FORMER USER 05/20/2023 [facility] History of tobacco use [place]-TO[place]ACCO QUIT 15 YRS OR MORE 05/20/2023 [facility] History of tobacco use [place]-TO[place]AC[place] NEVER USED 05/28/2022 [facility] History of tobacco use [place]-TO[place]AC[place] NEVER USED 02/26/2021 [facility] This section is an empty social history section. DoD Plan of Care List of future care activities from Department of 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 Additional future care activities may be listed in the Assessment and Plan section. Date/Time Care Activity Care Activity Detail Facili ty 04/18/2024 AMBULATORY - PSYCHIATRY AMBULATORY - PSYC [facility] 04/28/2024 AMBULATORY - MEDICINE [facility] 05/05/2024 AMBULATORY - MEDICINE AMBULATORY - MEDICI [facility] 05/27/2024 AMBULATORY - MEDICINE AMBULATORY - MEDICI [facility] 03/16/2024 Consult Order COMMUNITY CARE-S TL PLASTIC SURG Cons Sales Marketing Coordinator's Choice [facility] 03/21/2024 Procedure Order CP EKG STL CP EK G - STL Proc Sales Marketing Coordinator's Choice [facility]
--- OUTSIDE RECORDS SUMMARY | 2024-04-10 13:51 | XMS_ITS | Encounter Summary ---
Author Name [facility] [place] [facility] [place] Address [address] [place] [address] Care Team Providers Care Car Conditioner Name Role Phone KODAK MORTON Primary Care [...] CHOIC E PREFE RR Apr 13, 2020 [id number] [phone] BOOGIE BAILEY ANDON PATIENT ANTHEM [employer] [place] PREFERRED PROVIDER ORGANIZAT ION (PPO) BLUE CHOIC E PREFE RR Apr 13, 2020 [id number] [phone] BOOGIE BAILEY ANDON PATIENT AN[employer] [employer] [place] PREFERRED PROVIDER ORGANIZAT ION (PPO) BLUE CHOIC E PREFE RR Apr 13, 2020 [id number] [phone] BOOGIE BAILEY AND[place] PATIENT [place] PREFERRED PROVIDER ORGANIZAT ION (PPO) BLUE CHOIC E PREFE RR Apr 13, 2020 [id number] [phone] BOOGIE BAILEY PATIENT PRIME THERAPEUTI CS RX PRESCRIPT ION BCBSI L [place] Apr 13, 2020 [id number] [phone] BOOGIE BAILEY PATIENT [facility] 2018 [place] May 10, 2019 [facility] [id number] BOOGIE BAILEY PATIENT Selected Encounter This section includes the information on record at [place] for the Encounter. Date/Time Encounter Type Encounter Description Reason Pro vider Source Apr 03, 2024 09:08 AM Outpatient Encounter TELEPHONE TRIAGE IHE Encounter Template Text not used by [place] Plan of Treatment: Future Appointments (+ 6 months) and Future Tests (+/- 45 days) The Plan of Treatment section includes future care activities for the patient from all [place] [facility]. This section includes future appointments and future orders which are active, pending or scheduled. Future Appointments This section includes appointments that were scheduled to occur 6 months from the date of the Encounter, up to a maximum of 20 appointments. The data comes from all [facility]. Appointment Date/Time Appointment Type Appointme nt Facility Name Apr 18, 2024 11:00 AM AMBULATORY - PSYCHIATRY [facility] Apr 28, 2024 03:00 PM [facility] May 05, 2024 11:30 AM AMBULATORY - MEDICINE [facility] May 27, 2024 11:00 AM AMBULATORY - MEDICINE [facility] Active, Pending, and Scheduled Orders This section includes a listing of several types of active, pending, and scheduled orders, including clinic medications orders, diagnostic test orders, procedure orders and consult orders; where the start date of the order is 45 days before the date of the Encounter or 45 days after the date of theEncounter. The data comes from all [facility]. Test Date/Time Test Type Test Details Facility Name Mar 16, 2024 10:22 AM Consult Order COMMUNITY CARE-STL PLASTIC SURG Cons [facility] Mar 21, 2024 03:48 PM Procedure Order CP EKG STL CP EKG - STL Proc [facility] Lab Results: +/- 30 days of the encounter This section includes the Chemistry and Hematology Lab Results on record with [place] for the patient. Radiology Reports and Pathology Reports are provided separately, in subsequent sections. Lab Results This section contains the Chemistry/Hematology Results that were resulted 30 days before or 30 daysafter the date of the Encounter. Date/Time Source Result Type Result - Unit Interpretation Reference Range Comment Mar 21, 2024 12:30 PM [facility] COMPREHENSIVE METABOLIC PANEL Specimen Type: PLASMA Comment: No hemolysis noted. Ordering Provider: SUSAN BROWN Report Released Date/Time: Mar 21, 2024 12:23 PM Reporting Lab: [facility] [address] [facility] [address] Performing Lab: [address] [address] CREATININE 1.00 mg/dL 0.7-1.3 UREA NITROGEN 18.1 [...] 98.2 >60 Mar 21, 2024 12:30 PM [facility] CBC Specimen Type: BLOOD No comment entered. Ordering Provider: SUSAN BROWN Report Released Date/Time: Mar 21, 2024 12:23 PM Reporting Lab: [facility] [address] [facility] [address] Performing Lab: [address] [address] WBC 7.2 10*3/uL 3.6-11.2 RBC 4.24 10*6/uL [...] 10*3/uL 0.00-0.20 Mar 05, 2024 11:10 AM [facility] TROPONIN I Specimen Type: PLASMA No comment entered. Ordering Provider: MUKESH MARINELLI Report Released Date/Time: Mar 05, 2024 11:04 AM Reporting Lab: [address] [address] Performing Lab: [address] [address] TROPONIN I <0.010 ng/mL 0-0.033 Mar 05, 2024 09:50 AM [facility] RESPIRATORY PCR PANEL Specimen Type: NASOPHARYNX Comment: The [employer] RP Panel combines nested multiplex PCR and [...] the clinician evaluating the patient. Claudio GREEN, (397) Ordering Provider: MUKESH MARINELLI Report Released Date/Time: Mar 05, 2024 09:39 AM Reporting Lab: [address] [address] Performing Lab: [address] [address] *Adenovirus (BF) Not Detected Not Detected *Coronavirus [...] Detected Mar 05, 2024 09:00 AM [facility] CBC Specimen Type: BLOOD No comment entered. Ordering Provider: MUKESH MARINELLI Report Released Date/Time: Mar 05, 2024 08:52 AM Reporting Lab: [address] [address] Performing Lab: [address] [address] WBC 7.1 10*3/uL 3.6-11.2 RBC 4.84 10*6/uL [...] 0.00-0.20 Mar 05, 2024 09:00 AM [facility] TROPONIN I Specimen Type: PLASMA Comment: No hemolysis noted. Ordering Provider: MUKESH MARINELLI Report Released Date/Time: Mar 05, 2024 08:52 AM Reporting Lab: [address] [address] Performing Lab: [address] [address] TROPONIN I 0.013 ng/mL 0-0.033 Mar 05, 2024 09:00 AM [facility] COMPREHENSIVE METABOLIC PANEL Specimen Type: PLASMA Comment: No hemolysis noted. Ordering Provider: MUKESH MARINELLI Report Released Date/Time: Mar 05, 2024 08:52 AM Reporting Lab: [address] [address] Performing Lab: [address] [address] CREATININE 0.92 mg/dL 0.7-1.3 UREA NITROGEN 15.6 [...] 108.5 >60 Mar 05, 2024 09:00 AM [facility] BRAIN NATRIURETIC PEPTIDE Specimen Type: PLASMA No comment entered. Ordering Provider: MUKESH MARINELLI Report Released Date/Time: Mar 05, 2024 09:39 AM Reporting Lab: [place] [address] [facility] [address] Performing Lab: [address] [address] BRAIN NATRIURETIC PEPTIDE 16.2 pg/mL 0-100 Mar 05, 2024 09:00 AM [facility] TSH (MA-PB) Specimen Type: SERUM No comment entered. Ordering Provider: MUKESH MARINELLI Report Released Date/Time: Mar 05, 2024 09:39 AM Reporting Lab: [address] [address] Performing Lab: [address] [address] TSH 0.283 u[IU]/mL L 0.47-5 FREE T4(REFLEX) 1.10 ng/mL 0.7-1.48 Social History: Smoking Status (Most current) and Tobacco Use (All prior to encounter date) This section includes the most current, and the historical, smoking and tobacco- related health factors from the [place] facility where the Encounter took place. Current Smoking Status This section includes the most current smoking, or tobacco-related health factor, from the [place] facility where the Encounter took place. Date/Time Current Smoking Status Comment Nicolas allen Feb 26, 2021 03:59 PM [place] NEVER USED [facility] Radiology Reports: +/- 30 days of the [...] the Encounter. The data comes from all [place] treatment facilities. Date/Time Radiology Report Provider Source Mar 21, 2024 12:34 PM CHEST X-RAY, 2 VIEWS: JORDYN BAILEY [id number] -1985 M Exm Date: MAR 21, 2024@12:34 Req Phys: SUSAN BROWN Loc: [facility]-EMERGENCY DEPT 2ND SHIFT (R Img Loc: [facility]MAIN RADIOLOGY SUITE Service: Unknown [address] [address] (Case [id number] COMPLETE) CHEST X-RAY, 2 VIEWS (RAD Detailed) CPT:95098 Reason for Study: cough, SOB Clinical History: Report Status: Verified Date Reported: MAR 21, 2024 Date Verified: MAR 21, 2024 Carpenter/Labor E-Sig:/ES/Lynn Castro MD Report: CHEST X-RAY, 2 VIEWS CASE #: [id number] DATE:03/21/2024 12:39 PM CLINICAL HISTORY:cough, SOB COMPARISON: 03/05/2024, 05/20/2023, 05/28/2022 TECHNIQUE: CHEST X-RAY, 2 VIEWS Impression: FINDINGS/IMPRESSION: Low lung volumes. Top normal heart size. No CHF. Bibasilar atelectasis versus pneumonia. Correlate clinically. No pleural effusion. No pneumothorax. Primary Interpreting Staff: Lynn Castro MD, Radiologist (Carpenter/Labor) /LYNN ONEILL [facility] Mar 05, 2024 10:[address] PE CHEST W/3D: JORDYN BAILEY ANTHONY [id number] -1985 M Exm Date: MAR 05, 2024@10:00 Req Phys: MUKESH MARINELLI Loc: -EMERGENCY DEPT 2ND SHIFT (R Img Loc: -CT IMAGING [facility] Service: Unknown [address] [address] (Case [id number] COMPLETE) CT THORAX W/CONT (PE) (CT Detailed) CPT:11729 Contrast Media : unspecified contrast media Reason [...] 05, 2024 Date Verified: MAR 05, 2024 Carpenter/Labor E-Sig: Report: CT THORAX W/CONT (PE) [PRINTSET] HISTORY: chest pain, tachycardia COMPARISON: 02/12/2024 TECHNIQUE: Helical CT of the chest, with multiplanar reformats including maximum intensity projection (MIP) reconstructions, was performed at the local [place] facility. 1529 images were received by the [place] National Teleradiology Program (NTP) for interpretation. RADIATION [...] excluded. 3. Cardiomegaly. READING PHYSICIAN: Wilfred Roberts -[id number] 03/05/2024 7:32 [facility] National Teleradiology Program [phone] (For Medical Practitioner Use Only) Attention Patients / Veterans: If you have questions or concerns about these test results, please contact your ordering provider or primary care team. Primary Interpreting Staff: RADIOLOGY,OUTSIDE SERVICE, Staff Physician / RADIOLOGY,OUTSIDE SERVICE [facility] Mar 05, 2024 08:59 AM CHEST PORTABLE: JORDYN BAILEY [id number] -1985 M Exm Date: MAR 05, 2024@08:59 Req Phys: MUKESH MARINELLI Loc: [facility]PT 2ND SHIFT (R Img Loc: [facility] RADIOLOGY SUITE Service: Unknown [facility] [address] [place] [address] (Case [id number] COMPLETE) CHEST PORTABLE (RAD Detailed) CPT:38611 Proc Modifiers : Portable Reason for Study: chest pain Clinical History: Report Status: Verified Date Reported: MAR 05, 2024 Date Verified: MAR 05, 2024 Carpenter/Labor E-Sig: Report: CHEST PORTABLE Comparison: 05/20/2023, 02/12/2024 Clinical History: chest pain The study was performed and supervised at the local [place] facility, and subsequently transmitted to [facility] NTP (National Teleradiology Program) for interpretation. Impression: Lungs: Small left effusion with left basilar opacity which may represent atelectasis or consolidation.. Cardiomediastinal silhouette: No enlargement of the cardiomediastinal silhouette. Bones and soft tissues: No acute finding. READING PHYSICIAN: Sandeep Kraft M.D. -[id number] 03/05/2024 7:29 PST [facility] National Teleradiology Program [phone] (For Medical Practitioner Use Only) Attention Patients / Veterans: If you have questions or concerns about these test results, please contact your ordering provider or primary care team. Primary Interpreting Staff: RADIOLOGY,OUTSIDE SERVICE, Staff Physician / RADIOLOGY,OUTSIDE SERVICE [facility] Encounter Notes: All associated encounter notes This section contains the clinical notes associated to the Encounter. Date/Time Encounter Note(s) Provider Source Apr 03, 2024 09:08 AM RN PROGRESS NOTE: LOCAL TITLE: CCC: CLINICAL TRIAGE STANDARD TITLE: RN PROGRESS NOTE DATE OF NOTE: APR 03, 2024@09:08:17 ENTRY DATE: APR 03, 2024@09:08:18 AUTHOR: LATRICE DUNN COSIGNER: URGENCY: STATUS: COMPLETED Patient Demographics Patient Name: JORDYN BAILEY Patient Primary Address: [facility] [place] [address] Patient Primary Phone: [phone] Patient : 1985 Patient Age: 39 Current Location: [address] [place] [address] Call Back Number: [phone] Caller/Recipient Relation to Patient: Self Caller Name: JORDYN BAILEY Emergency Contact: JOSÉ MENSAH Triage Summary Conducted triage/discussed symptoms Pain Score: 8 (Severe Pain) Utilized the Triage Tool: Yes Chief Complaint: Shortness Of Breath System WHEN: Now, 911 Nurse's Recommendation / WHEN: 911 System WHERE: Emergency department Nurse's Recommendation / WHERE: 911 Patient Disposition Patient/Caregiver agrees to plan of care: No Patient WHERE: ED Other Patient WHEN: Now Nursing Plan and Disposition Referred patient to higher level of care Instructed to go to Emergency Room (ER) Other Other Description: declines 911 Other course(s) of action Generated msg to PACT/Provider Nurse Summary Nurse Summary: calling stating he was evaluated and treated for pneumonia and pleural effusion last week and has not improved. [place] states is still short of breath, cough, chest tightness and stabbing pain in the back. Triage recommendation to call 911. declines 911 and states [facility] is 4 miles away and agrees to go there now. Advised will alert PACT via note to chart for f/u. v/u. Clinical Contact Center Codes Clinic/Location: V[address] ST PHONE CCC RN Decision Support System Output: Triage Complete Triage Date: 04/03/2024, 08:48 AM Triage Note: Decision Support Tool Used: [employer] Phone Triage Sun, 03 Apr 2024 14:46:08 +0000 RUST Demographics 39 y/o Male Results CC: Shortness Of Breath Software suggested: Now, 911 Software suggested follow-up location: Emergency department Values and Measures Temperature: 99.6 Fahrenheit Duration of CC: 4 Weeks Positive Responses HPI: chest pain HPI: diaphoresis, with dyspnea VS: temperature not taken Negative Responses Denies: HPI: cough, new or worsening Denies: HPI: syncope, with dyspnea Denies: HPI: wheezing, new or worsening Denies: PMH: angina Denies: PMH: heart attack [place] Education Verbal Education Provided: Based on your responses, you should be treated in the emergency department. Take action: Consider calling an ambulance. You need to see a provider now or your condition could worsen. IMPORTANT: This note was created by [facility] Clinical Contact Center staff. Please do not alert the staff member by adding them as a signer for future communications. Alerts are not monitored by this user. /nataliia/ LATRICE DUNN Signed: 04/03/2024 09:08 Receipt Acknowledged By: 04/04/2024 10:11 /es/ CHICO BECKWITH MSM, RN,CCM REGISTERED NURSE for NOELLE FLORES * AWAITING SIGNATURE * KODAK MORTON STACEY K [facility]
--- OUTSIDE RECORDS SUMMARY | 2024-04-10 13:54 | XMS_ITS | Encounter Summary ---
Author Organization [facility] Address [address] [place] [address]. [place], [place] [address] [place] [address] Care Team Providers Care Plain Clothes Police Officer Name Role Phone Preethi Hall Primary Care Provider [phone] Reason for Visit * Reason Comments UTI frequency with urina tion but not going as much x 3 days, pain a few weeks ago in lower back (has had a kidney stone before) Encounter Details Date Type Department Care Team (Late st Contact Info) Description 07/04/2020 3:20 PM CDT Office Visit [facility] [address] [place] [address] Sergo Brand MD UTI (frequency [...] file Gets together: Not on file Attends mosque service: Not on file Active member of [...] NEGATIVE U KETONES NEGATIVE NEGATIVE MG/DL Specific [place] (U) 1.020 1.001 - 1.035 BLOOD MODERATE [...] URINE CLEAN CATCH 07/04/2020 5:26 PM CDT [facility] SPECIAL REQUESTS NO SPECIAL REQUEST 07/04/2020 5:26 PM CDT [facility] CULTURE RESULT NO GROWTH 2 DAYS 07/06/2020 7:56 AM CDT [facility] URINE SPECIMEN OBTAINED BY CLEAN CATCH PROCEDURE / Unknown 07/04/2020 5:26 PM CDT 07/04/2020 5:34 PM CDT us Sergo Brand MD MICROBIOLOGY - GENERAL O RDERABLES Final Result [facility] [address] [place] [address], [place] [phone] [facility] [address] [place] [address], [place] [phone] * URINALYSIS AUTO DIP (07/04/2020 3:09 PM CDT) COLOR (U) DARK YELLOW MG-[address], [facility] MG-[address], [place] GLUCOSE (U) NEGATIVE NEGATIVE MG/DL MG-[address], [place] BILIRUBIN (U) NEGATIVE NEGATIVE MG-[address], [place] KETONES MG/DL (U) NEGATIVE NEGATIVE MG/DL MG-[address], [facility] SPECIFIC GRAVITY (U) 1.020 1.001 - 1.035 MG-[address], [facility] BLOOD (U) MODERATE (2+ Hemolyzed, About 50 rbc/uL) NEGATIVE MG-[address], [facility] U PH 7.0 5.0 - 9.0 MG-[address], [place] PROTEIN (U) NEGATIVE NEGATIVE mg/dL MG-79786 [facility], [place] UROBILINOGEN 1.0 0.2 - 1.0 EU/dL = mg/dL MG-68578 [facility], [place] NITRITES NEGATIVE NEGATIVE MG/DL MG-33275 [facility], [place] LEUKOCYTES (U) NEGATIVE NEGATIVE MG-12 860 [facility], [place] URINE SPECIMEN OBTAINED BY CLEAN CATCH PROCEDURE / Unknown 07/04/2020 3:09 PM CDT us Sergo Brand MD URINE ORDERABLES Final R esult -[id number] [facility] [place], [place] [address] [place] [address], documented in this encounter Visit Diagnoses Diagnosis Kidney stone- Primary Calculus of kidney UTI symptoms documented in this encounter Care Teams Plain Clothes Police Officer Relationship Specialty Start Date End Date Preethi Hall APNP [address] [facility] [address] [place] [address] PCP - General Nurse Practitioner Family 09/21/1911/12 documented as of this encounter
--- OUTSIDE RECORDS SUMMARY | 2024-04-10 13:54 | XMS_ITS | Encounter Summary ---
Author Organization [facility] Address [address] [place] [address]. [place], [place] [address] [place] [address] Care Team Providers Care Residential Roofer Name Role Phone Preethi Hall Primary Care Provider [phone] Reason for Visit * Reason Comments Cough Since yesterday, non -productive Chest Pain Sharp pain to center of chest and in back since yesterday Earache Left x 2 weeks Encounter Details Date Type Department Care Team (Late st Contact Info) Description 05/13/2020 10:38 AM CONDOMINIUM MANAGER - 05/13/2020 12:06 PM [facility] Emergency [facility] Emergency Room [id number] [place] [address] Andre Herring PA [address] [place] [address] Cough (Since yesterday, non-productive); Chest Pain (Sharp [...] COVID-19? No / Unsure 05/13/2020 10:32 AM CONDOMINIUM MANAGER documented as of this encounter Last Filed Vital Signs Vital Sign Reading Time Taken Comments Blood Pressure 140/77 05/13/2020 10:39 AM CONDOMINIUM MANAGER Pulse 91 05/13/2020 10:39 AM CONDOMINIUM MANAGER Temperature 36.6 ??C (97.8 ??F) 05/13/2020 10:[address] Respiratory Rate 18 05/13/2020 10:39 AM CONDOMINIUM MANAGER Oxygen Saturation 99% 05/13/2020 10:39 AM CONDOMINIUM MANAGER Inhaled Oxygen Concentration - - Weight 95.3 kg (210 lb) 05/13/2020 10:39 AM CONDOMINIUM MANAGER Height 180.3 cm (5' 11 ) 05/13/2020 10:39 AM CONDOMINIUM MANAGER Body Mass Index 29.29 05/13/2020 10:39 AM CONDOMINIUM MANAGER documented in this encounter Discharge Instructions * Discharge Instructions* GURINDER Benson - 05/13/2020 11:46 AM CONDOMINIUM MANAGER Use [id number]-zkv-[id number] ibuprofen or Tylenol as directed for body aches. Make sure to drink adequate amount of fluids throughout the day. We will notify you of test results you may also review test results using Weatlast. Follow-up with your primary care provider in 5 to 7 days. Return emergency department symptoms worsen or new concerns. OMINIUM MANAGER * Attachments The following attachments cannot be sent through Care Everywhere. * Cough, Runny Nose, and the Common Cold Discharge Instructions (Russian) documented in this encounter Medications at Time of Discharge guaiFENesin ER 600 MG 12 hr tablet Take 1 tablet (600 mg total) by mouth 2 (two) times daily. 28 tablet 05/13/2020 07/04/2020 documented as of this encounter Progress Notes * GURINDER Wallis - 05/13/2020 12:06 PM CST S/w pt regarding negative results. No concerns. Reiterated return precautions OMINIUM MANAGER documented in this encounter ED Notes * [...] encounter of 05/13/20 ECG 12 lead Narrative [facility] Test Date: 2020-05-13 Pat Name: JORDYN PINEDA Department: Room: [facility] Gender: Male Adobe Block Maker: : 1985 Requested By: ANDRE HERRING Order Number: [id number] Reading MD: Measurements Intervals Reserve Rate: 85 P: 28 FL: 171 QRS: -11 QRSD: 97 T: 6 QT: 332 QTc: 396 Interpretive Statements SINUS RHYTHM MODERATE VOLTAGE CRITERIA FOR LVH, CONSIDER NORMAL VARIANT [MEETS CRITERIA IN ONE OF: R(aVL), S(V1), R(V5), R(V5/V6)+S(V1)] No previous ECG available for comparison LABORATORY STUDIES: No results found for this visit on 05/13/20. IMAGING STUDIES XR CHEST PA+LAT Final Result by User, [id number] (05/13 1150) TWO-VIEW CHEST RADIOGRAPH 05/13/2020: HISTORY: [...] Pharmacy: [id number] [place] [address] (Ph #: [phone]) Disposition: Discharge Follow-Up: JOSE Danielson [address] [place] [address] Schedule an appointment as soon as possible for a visit in 1 week As needed GURINDER Benson 05/13/2020 GURINDER Benson 05/13/20 1153 Cosigned by Constanza Hartmann MD at 05/13/2020 12:43 PM CONDOMINIUM MANAGER OMINIUM MANAGER OMINIUM MANAGER * Kristopher Campo RN - 05/13/2020 10:46 AM CSTSummary: Cough/Chest Pain/Ear Pain Pt to ED via POV with c/o cough since yesterday, non-productive, also states sharp pain to center of chest rates at 6/10 and in back since yesterday, and ear pain to the left x 2 weeks OMINIUM MANAGER documented in this encounter Plan of Treatment Not on file documented as of this encounter Procedures Procedure Name Priority Date/Time Associated Diagnosis Comments CORONAVIRUS (COVID-19) ANTIGEN DIRECT OPTICAL STAT 05/13/2020 12:00 PM CONDOMINIUM MANAGER XR CHEST PA+LAT STAT 05/13/2020 11:10 AM CONDOMINIUM MANAGER ECG 12-LEAD Routine 05/13/2020 11:03 AM CONDOMINIUM MANAGER documented in this encounter Results * CORONAVIRUS (COVID-19) ANTIGEN [RAPID IN HOUSE TEST] (05/13/2020 12:00 PM CONDOMINIUM MANAGER) CORONAVIRUS ANTIGEN IA NEGATIVE NEGATIVE 05/13/2020 12:25 PM CONDOMINIUM MANAGER [facility] Comment: NEGATIVE RESULTS DO [...] LABORATORIES. SPECIMEN TYPE NASAL 05/13/2020 12:06 PM [facility] FIRST TEST YES 05/13/2020 12:06 PM [facility] EMPLOYED IN HEALTHCARE NO 05/13/2020 12:06 PM [facility] SYMPTOMATIC DEFINED BY CDC YES 05/13/2020 12:06 PM [facility] DATE OF SYMPTOM ONSET 2020051205/13/2020 12:06 PM [facility] HOSPITALIZATION STATUS NO 05/13/2020 12:06 PM [facility] PATIENT IN ICU UNKNOWN 05/13/2020 12:08 PM [facility] RESIDENT OF [facility] NO 05/13/2020 12:06 PM CONDOMINIUM MANAGER [facility] Specimen from nose (specimen) NASAL STRUCTURE / Unknown 05/13/2020 12:00 PM CONDOMINIUM MANAGER Andre FAIRCHILD MICROBIOLOGY - GENERAL ORDE RABLES Final Result [facility] [address] [place] [address], * XR CHEST PA+LAT (05/13/2020 11:10 AM CONDOMINIUM MANAGER) Anatomical Region Laterality Modality Chest Radiographic Nella ging 05/13/2020 11:4 5 AM CONDOMINIUM MANAGER Impressions 05/13/2020 11:47 AM CONDOMINIUM MANAGER IMPRESSION: No evidence of acute cardiopulmonary disease. Normal heart size and pulmonary vascularity. No consolidation or large pleural effusion. No pneumothorax. Slight thoracolumbar curve. Interpreted By: Josy Lin, 05/13/2020 11:45 AM Narrative 05/13/2020 11:47 AM CONDOMINIUM MANAGER TWO-VIEW CHEST RADIOGRAPH 05/13/2020: HISTORY: Cough. Chest [...] * ECG 12 lead (05/13/2020 11:03 AM CONDOMINIUM MANAGER) 05/13/2020 11:0 3 AM CONDOMINIUM MANAGER Narrative [facility] RAD - 05/14/2020 7:05 AM CONDOMINIUM MANAGER ?[facility] ? Test Date: ?2020-05-13 Pat Name: ? JORDYN PINEDA ? Department: ? Room: ? TG1TG1 Gender: ? Male ? Adobe Block Maker: ?? : ?1985 ? Requested By: ANDRE HERRING Order Number: [id number] ? Reading MD: ?? Dmitri Collins ? Measurements Intervals ?Reserve ? Rate: ? 85 ? P: ?28 FL: ? 171 ?QRS: ?-11 QRSD: ? 97 ? T: ?6 QT: ? 332 ? QTc: ?396 ? Interpretive Statements SINUS RHYTHM MODERATE VOLTAGE CRITERIA FOR LVH, CONSIDER NORMAL VARIANT ??[MEETS CRITERIA IN ONE OF: R(aVL), S(V1), R(V5), R(V5/V6)+S(V1)] No previous ECG available for comparison OMINIUM MANAGER Procedure Note Dmitri Collins MD - 05/14/2020 [facility] Test Date: 2020-05-13 Pat Name: JORDYN PINEDA Department: Room: [facility] Gender: Male Adobe Block Maker: : 1985 Requested By: ANDRE HERRING Order Number: [id number] Luigi MD: Dmitri Collins Measurements Intervals Reserve Rate: 85 P: 28 FL: 171 QRS: -11 QRSD: 97 T: 6 QT: 332 QTc: 396 Interpretive Statements SINUS RHYTHM MODERATE VOLTAGE CRITERIA FOR LVH, CONSIDER NORMAL VARIANT [MEETSCRITERIA IN ONE OF: R(aVL), S(V1), R(V5), R(V5/V6)+S(V1)] No previous ECG available for comparison OMINIUM MANAGER us Andre FAIRCHILD ECG ORDERABLES Final Resul t [facility] RAD documented in this encounter Visit Diagnoses Diagnosis Viral URI with cough- Primary Acute upper respiratory infections of unspecified site Chest congestion Other symptoms involving respiratory system and chest documented in this encounter Additional Health Concerns Infection Onset Date Last Indicated Resolved Time COVID-19 Rule Out 05/13/2020 05/13/2020 05/13/2020 12:25 PM CONDOMINIUM MANAGER documented as of this encounter Care Teams Residential Roofer Relationship Specialty Start Date End Date Preethi Hall APNP [address] [place] [address] PCP - General Nurse Practitioner Family 09/21/1911/12 documented as of this encounter
--- OUTSIDE RECORDS SUMMARY | 2024-04-10 13:54 | XMS_ITS | Encounter Summary ---
Author Organization [facility] Address [address] [place] [address]. [place] [address] [place] [address] Care Team Providers Care Gin Operator Name Role Phone Preethi Hall Primary Care Provider [phone] Reason for Visit * Reason Comments Flank Pain Encounter Details Date Type Department Care Team (Latest Contact Info) Description 08/28/2021 8:08 AM CDT - 08/28/2021 9:17 AM CDT Hospital Encounter [facility] Care [address] [place] [address] Adama Negro PA [address] [place] [phone] Flank Pain Discharge Disposition: Home or Self [...] sent through Care Everywhere. * Flank Pain (Haitian) documented in this encounter Medications at Time [...] GURINDER Dean - 08/28/2021 8:44 AM CDT [place] HISTORICAL INFORMATION Primary Care Doctor: JOSE Danielson Patient information was obtained primarily from the patient, nursing notes, History/Exam limitations: None Provider at Bedside Date/Time Event User Comments 08/28/21 0811 Provider at Bedside Assessing Patient ADAMA NEGRO CHIEF COMPLAINT Flank Pain HPI Yosi Pineda is a 36-year-old male who presents to the [facility] care for left sided flankpain, dysuria. [...] and validated. Please refer to the exit commercial real estate underwriter discharge instructions for details surrounding the [...] URINE CLEAN CATCH 08/28/2021 8:29 AM CDT [facility] COLOR (U) BROWN 08/29/2021 11:07 AM CDT [facility] TRANSPARENCY CLOUDY 08/29/2021 11:07 AM CDT [facility] SPECIFIC GRAVITY (U) >1.030(H) 1.001 - 1.030 08/29/2021 11:07 AM CDT [facility] U PH 5.5 5.0 - 9.0 08/29/2021 11:07 AM CDT [facility] LEUKOCYTES (U) NEGATIVE NEGATIVE 08/29/2021 11:07 AM CDT [facility] NITRITES NEGATIVE NEGATIVE 08/29/2021 11:07 AM CDT [facility] PROTEIN (U) 100(H) <30 MG/DL 08/29/2021 11:07 AM CDT [facility] CARE URINE GLUCOSE NEGATIVE NEGATIVE MG/DL 08/29/2021 11:07 AM CDT [facility] CARE KETONES MG/DL (U) TRACE(A) NEGATIVE MG/DL 08/29/2021 11:[address] [facility] UROBILINOGEN 0.2(A) NEGATIVE MG/DL 08/29/2021 11:07 AM CDT [facility] CARE BILIRUBIN (U) SMALL(A) NEGATIVE MG/DL 08/29/2021 11:[address] [facility] BLOOD (U) LARGE(A) NEGATIVE 08/29/2021 11:[address] [facility] URINE SPECIMEN OBTAINED BY CLEAN CATCH PROCEDURE / Unknown 08/28/2021 8:29 AM CDT us Adama FAIRCHILD URINE ORDERABLES Final Res [address] [place] [id number] [place] [address], documented in this encounter Visit Diagnoses Diagnosis [...] RN) documented in this encounter Care Teams Gin Operator Relationship Specialty Start Date End Date Preethi Hall APNP [address] [place] [address] PCP - General Nurse Practitioner Family 09/21/1911/12 documented as of this encounter
--- OUTSIDE RECORDS SUMMARY | 2024-04-10 13:54 | XMS_ITS | Encounter Summary ---
Author Organization [facility] Address [address] [place] [address]. [place], [place] [address] [place] [address] Care Team Providers Care Stitcher Hand Name Role Phone Preethi Hall Primary Care Provider [phone] Encounter Details Date Type Department Care Team [...] COVID-19? No / Unsure 05/13/2020 10:32 AM OUTDOOR PURSUITS INSTRUCTOR documented as of this encounter Plan of Treatment Not on file documented as of this encounter Visit Diagnoses Not on filedocumented in this encounter Additional Health Concerns Infection Onset Date Last Indicated Resolved Time COVID-19 Rule Out 05/13/2020 05/13/2020 05/13/2020 12:25 PM OUTDOOR PURSUITS INSTRUCTOR documented as of this encounter Care Teams Stitcher Hand Relationship Specialty Start Date End Date Preethi Hall APNP [address] [address] PCP - General Nurse Practitioner Family 09/21/1911/12 documented as of this encounter
--- OUTSIDE RECORDS SUMMARY | 2024-04-10 13:54 | XMS_ITS | Encounter Summary ---
Author Organization [facility] Address [address] [place] [address]. [place], [place] [address] [place] [address] Care Team Providers Care General Accounting Manager Name Role Phone Preethi Hall Primary Care Provider [phone] Encounter Details Date Type Department Care Team [...] on filedocumented in this encounter Care Teams General Accounting Manager Relationship Specialty Start Date End Date Preethi Hall APNP [address] [place] [address] PCP - General Nurse Practitioner Family 09/21/19 8/06/05 documented as of this encounter
--- OUTSIDE RECORDS SUMMARY | 2024-04-10 13:54 | XMS_ITS | Encounter Summary ---
Author Organization [facility] Address [address] [place] [address]. [place], [place] [address] [place] [address] Care Team Providers Care Senior Accountant Analyst Name Role Phone Preethi Hall Primary Care Provider [phone] Encounter Details Date Type Department Care Team (Late st Contact Info) Description 07/04/2020 5:26 PM CDT - 07/04/2020 11:59 PM CDT Hospital Encounter [facility] [address] [place] [address] Sergo Brand MD Discharge Disposition: Home or [...] GROWTH 2 DAYS 07/06/2020 7:56 AM CDT [facility] URINE SPECIMEN OBTAINED BY CLEAN CATCH PROCEDURE / Unknown 07/04/2020 5:26 PM CDT 07/04/2020 5:34 PM CDT us Sergo Brand MD MICROBIOLOGY - GENERAL O RDERABLES Final Result Performing Organization Address City/State/[facility] Co de Phone Number [facility] [address] [place] [address], [facility] [address] [place] [address], documented in this encounter Visit Diagnoses Diagnosis UTI symptoms documented in this encounter Care Teams Senior Accountant Analyst Relationship Specialty Start Date End Date Preethi Hall APNP [address] [address] PCP - General Nurse Practitioner Family 09/21/19 806/05 documented as of this encounter
--- OUTSIDE RECORDS SUMMARY | 2024-04-10 13:54 | XMS_ITS | Clinical Summary ---
Author Organization [facility] Address [address] [place] [address]. [place] [address] [place] [address] Care Team Providers Care Network Associate Name Role Phone Patricia Milligan PA-C Primary Care Provider [phone] Allergies Active Allergy Reactions Criticality Noted Date [...] patient's age to complete this topic Insurance [facility] Care Teams Network Associate Relationship Specialty Start Date End Date Patricia Milligan PA-C [address] [facility] [address] [place] [address] PCP - General PHYSICIAN CORK PRESSING MACHINE OPERATOR 12/03/22
--- OUTSIDE RECORDS SUMMARY | 2024-04-10 13:54 | XMS_ITS | Encounter Summary ---
Author Organization [facility] Address [address] [place] [address]. [place], [place] [address] [place] [address] Care Team Providers Care Reporting Process Consultant Name Role Phone Preethi Hall Primary Care Provider [phone] Encounter Details Date Type Department Care Team [...] on filedocumented in this encounter Care Teams Reporting Process Consultant Relationship Specialty Start Date End Date Preehti Hall APNP [address] [place], [place] [id number] PCP - General Nurse Practitioner Family 09/21/19 8/06/05 documented as of this encounter
--- OUTSIDE RECORDS SUMMARY | 2024-04-10 13:54 | XMS_ITS | Encounter Summary ---
Author Organization [facility] Address [facility]. [place], [place] [address] [place] [address] Care Team Providers Care Director Of Math Name Role Phone Preethi Hall Primary Care Provider [phone] Reason for Visit * Reason Comments Acute [...] Description 10/31/2020 4:00 PM CDT Office Visit [facility] Family & Internal Medicine [address] [address] Sergo Reed MD Acute Note [...] Gatherings with Friends and Family: ??? Attends Restorationist Services: ??? Active Member of Clubs or [...] tube documented in this encounter Care Teams Director Of Math Relationship Specialty Start Date End Date Preethi Hall APNP [address] [place] [address] PCP - General Nurse Practitioner Family 09/21/1911/12 documented as of this encounter
--- OUTSIDE RECORDS SUMMARY | 2024-04-10 13:54 | XMS_ITS | Encounter Summary ---
Author Organization [facility] Address [address] [place] [address]. [place], [place] [address] [place] [address] Care Team Providers Care Draw Frame Tender Name Role Phone Preethi Hall Primary Care Provider [phone] Encounter Details Date Type Department Care Team [...] on filedocumented in this encounter Care Teams Draw Frame Tender Relationship Specialty Start Date End Date Preethi Hall APNP [address] [place] [address] PCP - General Nurse Practitioner Family 09/21/19 8/06/05 documented as of this encounter
--- OUTSIDE RECORDS SUMMARY | 2024-04-10 13:54 | XMS_ITS | Encounter Summary ---
Author Organization [facility] Address [address] [place] [address]. [place], [place] [address] [place] [address] Care Team Providers Care Outsole Scheduler Name Role Phone Preethi Hall Primary Care Provider [phone] Encounter Details Date Type Department Care Team [...] on filedocumented in this encounter Care Teams Outsole Scheduler Relationship Specialty Start Date End Date Preethi Hall APNP [address] [place] [address] PCP - General Nurse Practitioner Family 09/21/1911/12 documented as of this encounter
--- OUTSIDE RECORDS SUMMARY | 2024-04-10 13:54 | XMS_ITS | Encounter Summary ---
Author Organization [facility] Address [address] [place] [address]. [place], [place] [address] [place] [address] Care Team Providers Care Fishing Boat Mate Name Role Phone Preethi Hall Primary Care Provider [phone] Encounter Details Date Type Department Care Team (Late st Contact Info) Description 12/16/2020 - 12/16/2020 3:13 PM CDT Emergency [facility] Emergency [address] [facility] [address] [place], [place] [phone] Discharge Disposition: Left Against Medical Advice Social [...] on filedocumented in this encounter Care Teams Fishing Boat Mate Relationship Specialty Start Date End Date Preethi Hall APNP [address] [address] PCP - General Nurse Practitioner Family 09/21/1911/12 documented as of this encounter
--- OUTSIDE RECORDS SUMMARY | 2024-04-10 13:54 | XMS_ITS | Encounter Summary ---
Author Organization [facility] Address [address] [place] [address]. [place], [place] [address] [place] [address] Care Team Providers Care Audit Intern Name Role Phone Preethi Hall Primary Care Provider [phone] Reason for Referral * Audiology Exam (Routine) - Closed Specialty Diagnoses / Procedures Referred By Sugar espinal Referred To Contact AUDIOLOGY Diagnoses Sensorineural hearing loss (SNHL) of right ear, unspecified hearing status on contralateral side Preethi Hall APNP [address] [facility] [address] [place] [address] Phone: tel: fax: Referral ID Status Reason Start Date Expiration Date V isits Requested Visits Authorized [id number] Closed Specialty Services 09/23/2019 10/22/2020 1 1 * (Routine) - Closed Specialty Diagnoses / Procedures Referred By Sugar espinal Referred To Contact Diagnoses Infected epidermoid cyst Procedures Incision and Drainage Preethi Hall APNP [address] [facility] [address] [place] [address] Phone: tel: fax: Referral ID Status Reason Start Date Expiration Date Visits Re quested Visits Authorized [id number] Closed 09/23/2019 10/22/2020 1 1 Reason for [...] Description 09/21/2019 2:40 PM CDT Office Visit [facility] Family & Internal Medicine [facility] [address] [place] [address] Preethi Hall, JOSE [address] [facility] [address] [place] [address] [place] (bump on back states [...] file Gets together: Not on file Attends protestant service: Not on file Active member of [...] side documented in this encounter Care Teams Audit Intern Relationship Specialty Start Date End Date Preethi Hall APNP [address] [address] PCP - General Nurse Practitioner Family 09/21/1911/12 documented as of this encounter
--- OUTSIDE RECORDS SUMMARY | 2024-04-10 13:55 | XMS_ITS | Clinical Summary ---
Author Organization [facility] Care Team Providers Care Cardiac Rehab Nurse Name Role Phone Unavailable Primary Care Provider [...]
--- OUTSIDE RECORDS SUMMARY | 2024-04-10 13:55 | XMS_ITS | Encounter Summary ---
Author Organization [facility] Address [address] [place] [address] Care Team Providers Care Bead Machine Operator Name Role Phone Unavailable Primary Care Provider Unavailabl e Encounter Details Date Type Department Care Team (Late st Contact Info) Description 07/07/2020 11:45 AM CDT Rapid Evaluation [place] [facility] Community Testing [facility] [address] [place], [place] [id number] Social History Tobacco Use Types Packs/Day Years [...]
--- OUTSIDE RECORDS SUMMARY | 2024-04-10 13:55 | XMS_ITS | Encounter Summary ---
Author Organization [facility] Address [address] [place] [address] Care Team Providers Care Asset Management Lead Name Role Phone Unavailable Primary Care Provider Unavailabl e Encounter Details Date Type Department Care Team (Late st Contact Info) Description 07/07/2020 Lab Requisition [facility] Community Testing [facility] [address] [place], [place] [phone] Riccardo Finney MD [address] [place] [address] [address] [place] [address] Social History Tobacco Use Types Packs/Day Years [...]
[2024-04-13 05:13] LABS: Glucose Pleural Fluid 74 mg/dL; LDH Pleural Fluid 445 U/L
== END 2024-04-08 16:52 | disposition home or self-care (01) | DRG 314 ==
LOC: ANHED 10:27 → ANH2MED 14:52
PROVIDERS: Emergency Medicine; Internal Medicine Critical Care Medicine; Nurse Practitioner; Nurse Practitioner Gerontology; Admitting Provider General Practice; Emergency Provider Student in an Organized Health Care Education/Training Program; Visit Provider Nurse Practitioner Acute Care
DX: I30.9 Acute pericarditis, unspecified (principal); J18.9 Pneumonia, unspecified organism; J96.01 Acute respiratory failure with hypoxia; J90 Pleural effusion, not elsewhere classified; D64.9 Anemia, unspecified; R00.0 Tachycardia, unspecified
CPT/HCPCS: 32555; 36415; 71045; 71046; 71275; 74177; 80053; 81003; 82565; 82607; 82728; 82746; 82784; 82945; 82947; 83519; 83540; 83550; 83605; 83615; 83880; 83986; 84155; 84157; 85025; 85049; 85380; 85610; 85652; 85730; 86038; 86039; 86140; 86430; 87015; 87040; 87070; 87075; 87102; 87116; 87205; 87206; 87279; 87420; 87581; 87633; 87634; 87636; 87641; 87899; 89051; 93005; 93306; 93308; 93970; 94640; 94667; 96365; 99285; A9270; J0692; J1171; J1650; J3370; J7120; J7512; Q9967

== ENCOUNTER 2024-04-23 10:11 | Emergency (ER) | payer OTHER, SELFPAY ==
--- NOTE | ~2024-04-23 | CT_ITS ---
CTA chest PE protocol Ordering provider: Jessica Thapa History: 39 years Male with . cp, sob, elevated dimer . Comparison: None. Technique: CT angiogram chest was performed following timed intravenous injection of contrast. Thin s lice axial images and reformatted coronal images were obtained. Three dimensional reformatted images of the chest were also obtained using a [employer] workstation. . Automated exposure control and iterati ve reconstruction technique were employed. The dose-length product was 279.42 mGy-cm. 100 ML Omnipaqu e 350 was given IV. Findings: PULMONARY ARTERIES: No pulmonary embolus. VISUALIZED THORACIC INLET: Normal. MEDIASTINUM: Aorta/coronary arteries: The thoracic aorta is normal. Heart/other: The heart is not enlarged. Trace of pericardial effusion. Lymph nodes: No mediastinal or hilar adenopathy. LUNGS: Atelectasis versus pneumonia in the right lung base with minimal effusion. Minimal left pleural effus ion. No pulmonary nodules or masses. No infiltrates or effusions. No pneumothorax. VISUALIZED UPPER ABDOMEN: Small sliding hiatus hernia. Otherwise, the visualized upper abdomen is nor mal. MUSCULOSKELETAL: Soft tissues: The superficial soft tissues are normal. Bones: normal spine. IMPRESSION: 1. No pulmonary embolism. 2. Right basilar atelectasis versus pneumonia with pleural effusion. Minimal left pleural effusion. Reviewed, dictated and finalized at location A. [employer] IMPRESSION: 1. No pulmonary embolism. 2. Right basilar atelectasis versus pneumonia with pleural effusion. Minimal l eft pleural effusion.
--- NOTE | ~2024-04-23 | XR_ITS ---
XR chest 2V DATE: 04/23/2024 10:48 INDICATION: Chest pain, shortness of breath TECHNIQUE: PA and lateral views COMPARISON: 04/05/2024 portable AP chest FINDINGS: Cardiomegaly. The pulmonary vascular congestion and pulmonary edema and pleural effusions h ave resolved since 04/05/2024. There is right lower lobe infiltrate and/or atelectasis and minimal left basilar atelectasis.. IMPRESSION: Right lower lobe infiltrate and/atelectasis, minimal left basilar atelectasis Virtual resolution of congestive changes since 04/05/2024 Cardiomegaly Reviewed, dictated and finalized at location A. K PINNER IMPRESSION: Right lower lobe infiltrate and/atelectasis, minimal left basilar a telectasis Virtual resolution of congestive changes since 04/05/2024 Cardiomegaly
--- NOTE | 2024-04-23 10:12 | ECG_ITS ---
Test Date: 2024-04-23 10:18:17 Measurements Intervals [place] Rate: 123 P: 25 [place]: 163 QRS: -3 QRSD: 79 T: 94 QT: 337 QTc: 484 Interpretive Statements SINUS TACHYCARDIA MODERATE VOLTAGE CRITERIA FOR LVH, CONSIDER NORMAL VARIANT [MEETS CRITERIA IN ONE OF: R(aVL), S(V1), R(V5), R(V5/V6)+S(V1)] MODERATE T-WAVE ABNORMALITY, CONSIDER LATERAL ISCHEMIA [-0.1+ mV T WAVE IN I/aVL/V5/V6] ABNORMAL ECG Electronically Signed On 04-23-2024 10:52:46 FREIGHT CALLER by Pradeep Manning M.D.
[2024-04-23 10:28] VITALS: BP 131/78; PULSE 110; RESP 16; TEMP 36.8; O2SAT 99
[2024-04-23 11:07] LABS: Alanine Aminotransferase 29 U/L (6-50); Albumin Level 3.7 g/dL (3.5-5.1); Alkaline Phosphatase 114 U/L (38-126); Anion Gap 10 mmol/L (4-12); Aspartate Amino Transferase 27 U/L (17-59); Bilirubin,Total 0.9 mg/dL (0.2-1.3); Blood Urea Nitrogen 7 mg/dL (9-20); Calcium 8.8 mg/dL (8.4-10.2); Carbon Dioxide 24 mmol/L (22-30); Chloride 103 mmol/L (98-107); Estimated CRCL calculation 150 ml/min; Estimated Glomerular Filt Rate > 60; Glucose 149 mg/dL (65-110); Lipase 60 U/L (23-300); Potassium 3.8 mmol/L (3.4-5.0); Sodium 137 mmol/L (137-145)
[2024-04-23 11:11] LABS: CRP 4.7 mg/dL (<1.0)
[2024-04-23 11:13] LABS: Troponin I < 0.012 ng/mL (0.000-0.034)
[2024-04-23 11:16] LABS: Prothrombin Time 13.8 Seconds (11.1-14.7)
[2024-04-23 11:17] LABS: Partial Thromboplastin Time 29.8 Seconds (22.3-36.8)
[2024-04-23 11:20] LABS: D Dimer 2.79 ug/mL (<0.48)
[2024-04-23 11:44] LABS: Erythrocyte Sedimentation Rate 91 mm/hr (0-20)
[2024-04-23 12:11] LABS: CRP 4.9 mg/dL (<1.0)
--- NOTE | 2024-04-23 13:56 | ECG_ITS ---
Test Date: 2024-04-23 14:04:50 Measurements Intervals [place] Rate: 97 P: 28 MS: 164 QRS: 3 QRSD: 86 T: 33 QT: 322 QTc: 409 Interpretive Statements SINUS RHYTHM POSSIBLE LEFT ATRIAL ENLARGEMENT [-0.1mV P WAVE IN V1/V2] POSSIBLE LEFT VENTRICULAR HYPERTROPHY [VOLTAGE CRITERIA PLUS LAE OR QRS WIDENING] NONSPECIFIC T-WAVE ABNORMALITY ABNORMAL ECG Electronically Signed On 04-23-2024 17:41:24 AUTOMATIC CASTING MACHINE OPERATOR by Pradeep Manning M.D.
[2024-04-23 13:59] VITALS: BP 114/67; PULSE 104; RESP 20; TEMP 36.7; O2SAT 99
--- NOTE | 2024-04-23 14:22 | ED.CHESTPAIN ---
HPI - Chest Pain General Chief Complaint: Chest Pain <Jessica Thapa PA-C - Last Filed: 04/24/24 15:12> Stated Complaint: SOB and CP, third visit here per pt <Jessica Thapa PA-C - Last Filed: 04/24/24 15:12> Time Seen by Provider: 04/23/24 14:22 <Jessica Thapa PA-C - Last Filed: 04/24/24 15:12> Focused HPI: This is a 39 year old male that presents to the ER for chest pain. Reports this has been a recurrent issue for him. Sharp left sided chest pain and shortness of breath. Reports he was recently admitted here for inflammation/fluid around his heart and lungs. Reports he is supposed to see a matcher operator soon as they believe he has an autoimmune issue. Reports worsening pain/shortness of breath which prompted him to be seen again today. GENERAL: Well-appearing, well-nourished, and in no acute distress. HEAD: Normocephalic, atraumatic. CHEST: Clear to auscultation. ?No respiratory distress. HEART: Regular rate and rhythm.? NEURO: ?Alert and oriented x3. Patient screened in triage and initial orders placed.? ?Additional care and disposition to be based upon?diagnostic testing and treatment. <Jessica Thapa PA-C - Last Filed: 04/24/24 15:12> History of Present Illness HPI narrative: Agree with HPI. Patient with cough and shortness of breath. History of pericarditis. Has follow-up with Rheumatology this week. Has had improvement of symptoms with anti-inflammatories at home. <Federico Peck MD - Last Filed: 04/23/24 16:45> Related Data Allergies/Adverse Reactions: Allergies Allergy/AdvReac Type Severity Reaction Status Date / Time shellfish derived Allergy Intermediate Hives Verified 04/23/24 15:12 <Jessica Thapa PA-C - Last Filed: 04/24/24 15:12> Review of Systems Review of Systems: All systems reviewed & are unremarkable except as noted in HPI and below <Federico Peck MD - Last Filed: 04/23/24 16:45> Constitutional: Constitutional: Reports no additional constitutional complaints <Federico Peck MD - Last Filed: 04/23/24 16:45> ENT: Reports system reviewed and no additional complaints, except as documented <Federico Peck MD - Last Filed: 04/23/24 16:45> Cardiovascular: Cardiovascular: Reports chest pain, Reports rapid heart rate and Denies radiating jaw, neck or arm pain <Federico Peck MD - Last Filed: 04/23/24 16:45> Respiratory: Respiratory: Denies chest congestion, Reports cough, Reports dyspnea and Denies wheezing <Federico Peck MD - Last Filed: 04/23/24 16:45> Gastrointestinal: Gastrointestinal: Reports no additional gastrointestinal complaints <Federico Peck MD - Last Filed: 04/23/24 16:45> PMFSH Past Medical History Medical History: Medical History (Updated 04/24/24 @ 15:12 by Jessica Thapa PA-C) Pericarditis Pericardial effusion Cardiomegaly <Jessica Thapa PA-C - Last Filed: 04/24/24 15:12> Social History Social History: Social History Smoking status: Never smoker Alcohol intake: never Substance use: never Do You Feel Safe in your Home?: Yes Lack of Transportation: No Lack of Food: Never True Current Housing: I Have Housing Concerned About Future Housing: No Difficulty Paying Gas/Electric Bills: No Difficulty Paying for Meds: No Currently Unemployed: No Education: High School Diploma/GED Difficulty w/ Childcare or Family Care: No Spiritual care concerns: No <Jessica Thapa PA-C - Last Filed: 04/24/24 15:12> Exam Narrative: GENERAL: Well-appearing, well-nourished, and in no acute distress. HEAD: Normocephalic, atraumatic. ENT: Mucous membranes moist. CHEST: Clear to auscultation. No respiratory distress. HEART: Regular rate and rhythm. Normal peripheral pulses. ABDOMEN: Soft, nontender, nondistended. EXTREMITIES: Normal range of motion. No edema. SKIN: Warm, dry, no rash. NEURO: Alert and oriented x3. PSYCH: Normal mood and affect. <Federico Peck MD - Last Filed: 04/23/24 16:45> Course Course Emergency Course: Patient with mild anxiousness and does get tachycardic with activity. He has frequent coughing. Will treat for pneumonia. No PE. No cardiac enzyme elevation. Follow up with his doctor at the [place]. will give scheduled anti-inflammatories for home as well. <Federico Peck MD - Last Filed: 04/23/24 16:45> Vital Signs Vital signs: Vital Signs Temperature 98.3 F 04/23/24 10:28 Pulse Rate 110 H 04/23/24 10:28 Respiratory Rate 16 04/23/24 10:28 Blood Pressure 131/78 04/23/24 10:28 Pulse Oximetry 99 04/23/24 10:28 Temperature 98.0 F 04/23/24 13:59 Pulse Rate 98 04/23/24 15:10 Respiratory Rate 18 04/23/24 15:10 Blood Pressure 112/79 04/23/24 17:16 Pulse Oximetry 100 04/23/24 15:10 Oxygen Delivery Room Air 04/23/24 15:10 <Jessica Thapa PA-C - Last Filed: 04/24/24 15:12> Vital Signs Temperature 98.3 F 04/23/24 10:28 Pulse Rate 110 H 04/23/24 10:28 Respiratory Rate 16 04/23/24 10:28 Blood Pressure 131/78 04/23/24 10:28 Pulse Oximetry 99 04/23/24 10:28 Temperature 98.0 F 04/23/24 13:59 Pulse Rate 98 04/23/24 15:10 Respiratory Rate 18 04/23/24 15:10 Blood Pressure 112/79 04/23/24 17:16 Pulse Oximetry 100 04/23/24 15:10 Oxygen Delivery Room Air 04/23/24 15:10 <Federico Peck MD - Last Filed: 04/23/24 16:45> MDM - Chest Pain Lab Data Result diagrams: 04/23/24 10:36 04/23/24 10:36 <Jessica Thapa PA-C - Last Filed: 04/24/24 15:12> Labs: Lab Results 04/23/24 04/23/24 04/23/24 Range/Units 10:36 10:36 10:36 WBC Cancelled 5.2 RBC Cancelled 3.89 L Hgb Cancelled Hct MCV MCH MCHC RDW Plt Count MPV Immature Gran % (Auto) Neut % (Auto) Lymph % (Auto) [place] % (Auto) Eos % (Auto) Baso % (Auto) Lymph # (Auto) [place] # (Auto) Eos # (Auto) Baso # (Auto) Abs Immat Gran (auto) Absolute Neuts (auto) Absolute Nucleated RBC Nucleated RBC % % Immature Plt Fraction ESR (0-20) mm/hr PT (11.1-14.7) Seconds INR APTT (22.3-36.8) Seconds D-Dimer (<0.48) ug/mL Sodium (137-145) mmol/L Potassium (3.4-5.0) mmol/L Chloride (98-107) mmol/L Carbon Dioxide (22-30) mmol/L Anion Gap (4-12) mmol/L BUN (9-20) mg/dL Creatinine (0.7-1.3) mg/dL Estim Creat Clear Calc ml/min Estimated GFR (59 - ) Glucose (65-110) mg/dL Calcium (8.4-10.2) mg/dL Total Bilirubin (0.2-1.3) mg/dL AST (17-59) U/L ALT (6-50) U/L Alkaline Phosphatase (38-126) U/L Troponin I (0.000-0.034) ng/mL C-Reactive Protein (<1.0) mg/dL Total Protein (6.3-8.2) g/dL Albumin (3.5-5.1) g/dL Lipase (23-300) U/L 04/23/24 04/23/24 04/23/24 Range/Units 10:36 10:36 10:36 WBC RBC Hgb 10.5 L Hct Cancelled 31.5 L MCV Cancelled 81.0 MCH Cancelled MCHC RDW Plt Count MPV Immature Gran % (Auto) Neut % (Auto) Lymph % (Auto) [place] % (Auto) Eos % (Auto) Baso % (Auto) Lymph # (Auto) [place] # (Auto) Eos # (Auto) Baso # (Auto) Abs Immat Gran (auto) Absolute Neuts (auto) Absolute Nucleated RBC Nucleated RBC % % Immature Plt Fraction ESR (0-20) mm/hr PT (11.1-14.7) Seconds INR APTT (22.3-36.8) Seconds D-Dimer (<0.48) ug/mL Sodium (137-145) mmol/L Potassium (3.4-5.0) mmol/L Chloride (98-107) mmol/L Carbon Dioxide (22-30) mmol/L Anion Gap (4-12) mmol/L BUN (9-20) mg/dL Creatinine (0.7-1.3) mg/dL Estim Creat Clear Calc ml/min Estimated GFR (59 - ) Glucose (65-110) mg/dL Calcium (8.4-10.2) mg/dL Total Bilirubin (0.2-1.3) mg/dL AST (17-59) U/L ALT (6-50) U/L Alkaline Phosphatase (38-126) U/L Troponin I (0.000-0.034) ng/mL C-Reactive Protein (<1.0) mg/dL Total Protein (6.3-8.2) g/dL Albumin (3.5-5.1) g/dL Lipase (23-300) U/L 04/23/24 04/23/24 04/23/24 Range/Units 10:36 10:36 10:36 WBC RBC Hgb Hct MCV MCH 27.0 MCHC Cancelled 33.3 RDW Cancelled 17.1 H Plt Count Cancelled MPV Immature Gran % (Auto) Neut % (Auto) Lymph % (Auto) [place] % (Auto) Eos % (Auto) Baso % (Auto) Lymph # (Auto) [place] # (Auto) Eos # (Auto) Baso # (Auto) Abs Immat Gran (auto) Absolute Neuts (auto) Absolute Nucleated RBC Nucleated RBC % % Immature Plt Fraction ESR (0-20) mm/hr PT (11.1-14.7) Seconds INR APTT (22.3-36.8) Seconds D-Dimer (<0.48) ug/mL Sodium (137-145) mmol/L Potassium (3.4-5.0) mmol/L Chloride (98-107) mmol/L Carbon Dioxide (22-30) mmol/L Anion Gap (4-12) mmol/L BUN (9-20) mg/dL Creatinine (0.7-1.3) mg/dL Estim Creat Clear Calc ml/min Estimated GFR (59 - ) Glucose (65-110) mg/dL Calcium (8.4-10.2) mg/dL Total Bilirubin (0.2-1.3) mg/dL AST (17-59) U/L ALT (6-50) U/L Alkaline Phosphatase (38-126) U/L Troponin I (0.000-0.034) ng/mL C-Reactive Protein (<1.0) mg/dL Total Protein (6.3-8.2) g/dL Albumin (3.5-5.1) g/dL Lipase (23-300) U/L 04/23/24 04/23/24 04/23/24 Range/Units 10:36 10:36 10:36 WBC RBC Hgb Hct MCV MCH MCHC RDW Plt Count 330 MPV Cancelled 10.4 Immature Gran % (Auto) Cancelled 0.4 Neut % (Auto) Cancelled Lymph % (Auto) [place] % (Auto) Eos % (Auto) Baso % (Auto) Lymph # (Auto) [place] # (Auto) Eos # (Auto) Baso # (Auto) Abs Immat Gran (auto) Absolute Neuts (auto) Absolute Nucleated RBC Nucleated RBC % % Immature Plt Fraction ESR (0-20) mm/hr PT (11.1-14.7) Seconds INR APTT (22.3-36.8) Seconds D-Dimer (<0.48) ug/mL Sodium (137-145) mmol/L Potassium (3.4-5.0) mmol/L Chloride (98-107) mmol/L Carbon Dioxide (22-30) mmol/L Anion Gap (4-12) mmol/L BUN (9-20) mg/dL Creatinine (0.7-1.3) mg/dL Estim Creat Clear Calc ml/min Estimated GFR (59 - ) Glucose (65-110) mg/dL Calcium (8.4-10.2) mg/dL Total Bilirubin (0.2-1.3) mg/dL AST (17-59) U/L ALT (6-50) U/L Alkaline Phosphatase (38-126) U/L Troponin I (0.000-0.034) ng/mL C-Reactive Protein (<1.0) mg/dL Total Protein (6.3-8.2) g/dL Albumin (3.5-5.1) g/dL Lipase (23-300) U/L 04/23/24 04/23/24 04/23/24 Range/Units 10:36 10:36 10:36 WBC RBC Hgb Hct MCV MCH MCHC RDW Plt Count MPV Immature Gran % (Auto) Neut % (Auto) 77.5 H Lymph % (Auto) Cancelled 16.2 L [place] % (Auto) Cancelled 4.0 Eos % (Auto) Cancelled Baso % (Auto) Lymph # (Auto) [place] # (Auto) Eos # (Auto) Baso # (Auto) Abs Immat Gran (auto) Absolute Neuts (auto) Absolute Nucleated RBC Nucleated RBC % % Immature Plt Fraction ESR (0-20) mm/hr PT (11.1-14.7) Seconds INR APTT (22.3-36.8) Seconds D-Dimer (<0.48) ug/mL Sodium (137-145) mmol/L Potassium (3.4-5.0) mmol/L Chloride (98-107) mmol/L Carbon Dioxide (22-30) mmol/L Anion Gap (4-12) mmol/L BUN (9-20) mg/dL Creatinine (0.7-1.3) mg/dL Estim Creat Clear Calc ml/min Estimated GFR (59 - ) Glucose (65-110) mg/dL Calcium (8.4-10.2) mg/dL Total Bilirubin (0.2-1.3) mg/dL AST (17-59) U/L ALT (6-50) U/L Alkaline Phosphatase (38-126) U/L Troponin I (0.000-0.034) ng/mL C-Reactive Protein (<1.0) mg/dL Total Protein (6.3-8.2) g/dL Albumin (3.5-5.1) g/dL Lipase (23-300) U/L 04/23/24 04/23/24 04/23/24 Range/Units 10:36 10:36 10:36 WBC RBC Hgb Hct MCV MCH MCHC RDW Plt Count MPV Immature Gran % (Auto) Neut % (Auto) Lymph % (Auto) [place] % (Auto) Eos % (Auto) 1.9 Baso % (Auto) Cancelled 0.0 L Lymph # (Auto) Cancelled 0.85 L [place] # (Auto) Cancelled Eos # (Auto) Baso # (Auto) Abs Immat Gran (auto) Absolute Neuts (auto) Absolute Nucleated RBC Nucleated RBC % % Immature Plt Fraction ESR (0-20) mm/hr PT (11.1-14.7) Seconds INR APTT (22.3-36.8) Seconds D-Dimer (<0.48) ug/mL Sodium (137-145) mmol/L Potassium (3.4-5.0) mmol/L Chloride (98-107) mmol/L Carbon Dioxide (22-30) mmol/L Anion Gap (4-12) mmol/L BUN (9-20) mg/dL Creatinine (0.7-1.3) mg/dL Estim Creat Clear Calc ml/min Estimated GFR (59 - ) Glucose (65-110) mg/dL Calcium (8.4-10.2) mg/dL Total Bilirubin (0.2-1.3) mg/dL AST (17-59) U/L ALT (6-50) U/L Alkaline Phosphatase (38-126) U/L Troponin I (0.000-0.034) ng/mL C-Reactive Protein (<1.0) mg/dL Total Protein (6.3-8.2) g/dL Albumin (3.5-5.1) g/dL Lipase (23-300) U/L 04/23/24 04/23/24 04/23/24 Range/Units 10:36 10:36 10:36 WBC RBC Hgb Hct MCV MCH MCHC RDW Plt Count MPV Immature Gran % (Auto) Neut % (Auto) Lymph % (Auto) [place] % (Auto) Eos % (Auto) Baso % (Auto) Lymph # (Auto) [place] # (Auto) 0.2 Eos # (Auto) Cancelled 0.1 Baso # (Auto) Cancelled 0.0 Abs Immat Gran (auto) Cancelled Absolute Neuts (auto) Absolute Nucleated RBC Nucleated RBC % % Immature Plt Fraction ESR (0-20) mm/hr PT (11.1-14.7) Seconds INR APTT (22.3-36.8) Seconds D-Dimer (<0.48) ug/mL Sodium (137-145) mmol/L Potassium (3.4-5.0) mmol/L Chloride (98-107) mmol/L Carbon Dioxide (22-30) mmol/L Anion Gap (4-12) mmol/L BUN (9-20) mg/dL Creatinine (0.7-1.3) mg/dL Estim Creat Clear Calc ml/min Estimated GFR (59 - ) Glucose (65-110) mg/dL Calcium (8.4-10.2) mg/dL Total Bilirubin (0.2-1.3) mg/dL AST (17-59) U/L ALT (6-50) U/L Alkaline Phosphatase (38-126) U/L Troponin I (0.000-0.034) ng/mL C-Reactive Protein (<1.0) mg/dL Total Protein (6.3-8.2) g/dL Albumin (3.5-5.1) g/dL Lipase (23-300) U/L 04/23/24 04/23/24 04/23/24 Range/Units 10:36 10:36 10:36 WBC RBC Hgb Hct MCV MCH MCHC RDW Plt Count MPV Immature Gran % (Auto) Neut % (Auto) Lymph % (Auto) [place] % (Auto) Eos % (Auto) Baso % (Auto) Lymph # (Auto) [place] # (Auto) Eos # (Auto) Baso # (Auto) Abs Immat Gran (auto) 0.02 Absolute Neuts (auto) Cancelled 4.1 Absolute Nucleated RBC Cancelled 0.000 Nucleated RBC % Cancelled % Immature Plt Fraction ESR (0-20) mm/hr PT (11.1-14.7) Seconds INR APTT (22.3-36.8) Seconds D-Dimer (<0.48) ug/mL Sodium (137-145) mmol/L Potassium (3.4-5.0) mmol/L Chloride (98-107) mmol/L Carbon Dioxide (22-30) mmol/L Anion Gap (4-12) mmol/L BUN (9-20) mg/dL Creatinine (0.7-1.3) mg/dL Estim Creat Clear Calc ml/min Estimated GFR (59 - ) Glucose (65-110) mg/dL Calcium (8.4-10.2) mg/dL Total Bilirubin (0.2-1.3) mg/dL AST (17-59) U/L ALT (6-50) U/L Alkaline Phosphatase (38-126) U/L Troponin I (0.000-0.034) ng/mL C-Reactive Protein (<1.0) mg/dL Total Protein (6.3-8.2) g/dL Albumin (3.5-5.1) g/dL Lipase (23-300) U/L 04/23/24 04/23/24 04/23/24 Range/Units 10:36 10:36 14:06 WBC RBC Hgb Hct MCV MCH MCHC RDW Plt Count MPV Immature Gran % (Auto) Neut % (Auto) Lymph % (Auto) [place] % (Auto) Eos % (Auto) Baso % (Auto) Lymph # (Auto) [place] # (Auto) Eos # (Auto) Baso # (Auto) Abs Immat Gran (auto) Absolute Neuts (auto) Absolute Nucleated RBC Nucleated RBC % 0.0 % Immature Plt Fraction Cancelled ESR 91 H (0-20) mm/hr PT 13.8 (11.1-14.7) Seconds INR 1.0 APTT 29.8 (22.3-36.8) Seconds D-Dimer 2.79 H (<0.48) ug/mL Sodium 137 (137-145) mmol/L Potassium 3.8 (3.4-5.0) mmol/L Chloride 103 (98-107) mmol/L Carbon Dioxide 24 (22-30) mmol/L Anion Gap 10 (4-12) mmol/L BUN 7 L D (9-20) mg/dL Creatinine 0.60 L (0.7-1.3) mg/dL Estim Creat Clear Calc 150 ml/min Estimated GFR > 60 (59 - ) Glucose 149 H (65-110) mg/dL Calcium 8.8 (8.4-10.2) mg/dL Total Bilirubin 0.9 (0.2-1.3) mg/dL AST 27 (17-59) U/L ALT 29 (6-50) U/L Alkaline Phosphatase 114 (38-126) U/L Troponin I < 0.012 < 0.012 (0.000-0.034) ng/mL C-Reactive Protein 4.7 H 4.9 H (<1.0) mg/dL Total Protein 8.0 (6.3-8.2) g/dL Albumin 3.7 (3.5-5.1) g/dL Lipase 60 (23-300) U/L 04/23/24 Range/Units 16:36 WBC RBC Hgb Hct MCV MCH MCHC RDW Plt Count MPV Immature Gran % (Auto) Neut % (Auto) Lymph % (Auto) [place] % (Auto) Eos % (Auto) Baso % (Auto) Lymph # (Auto) [place] # (Auto) Eos # (Auto) Baso # (Auto) Abs Immat Gran (auto) Absolute Neuts (auto) Absolute Nucleated RBC Nucleated RBC % % Immature Plt Fraction ESR (0-20) mm/hr PT (11.1-14.7) Seconds INR APTT (22.3-36.8) Seconds D-Dimer (<0.48) ug/mL Sodium (137-145) mmol/L Potassium (3.4-5.0) mmol/L Chloride (98-107) mmol/L Carbon Dioxide (22-30) mmol/L Anion Gap (4-12) mmol/L BUN (9-20) mg/dL Creatinine (0.7-1.3) mg/dL Estim Creat Clear Calc ml/min Estimated GFR (59 - ) Glucose (65-110) mg/dL Calcium (8.4-10.2) mg/dL Total Bilirubin (0.2-1.3) mg/dL AST (17-59) U/L ALT (6-50) U/L Alkaline Phosphatase (38-126) U/L Troponin I Cancelled (0.000-0.034) ng/mL C-Reactive Protein (<1.0) mg/dL Total Protein (6.3-8.2) g/dL Albumin (3.5-5.1) g/dL Lipase (23-300) U/L <Jessica Thapa PA-C - Last Filed: 04/24/24 15:12> Lab Results 04/23/24 04/23/24 04/23/24 Range/Units 10:36 10:36 10:36 WBC Cancelled 5.2 RBC Cancelled 3.89 L Hgb Cancelled Hct MCV MCH MCHC RDW Plt Count MPV Immature Gran % (Auto) Neut % (Auto) Lymph % (Auto) [place] % (Auto) Eos % (Auto) Baso % (Auto) Lymph # (Auto) [place] # (Auto) Eos # (Auto) Baso # (Auto) Abs Immat Gran (auto) Absolute Neuts (auto) Absolute Nucleated RBC Nucleated RBC % % Immature Plt Fraction ESR (0-20) mm/hr PT (11.1-14.7) Seconds INR APTT (22.3-36.8) Seconds D-Dimer (<0.48) ug/mL Sodium (137-145) mmol/L Potassium (3.4-5.0) mmol/L Chloride (98-107) mmol/L Carbon Dioxide (22-30) mmol/L Anion Gap (4-12) mmol/L BUN (9-20) mg/dL Creatinine (0.7-1.3) mg/dL Estim Creat Clear Calc ml/min Estimated GFR (59 - ) Glucose (65-110) mg/dL Calcium (8.4-10.2) mg/dL Total Bilirubin (0.2-1.3) mg/dL AST (17-59) U/L ALT (6-50) U/L Alkaline Phosphatase (38-126) U/L Troponin I (0.000-0.034) ng/mL C-Reactive Protein (<1.0) mg/dL Total Protein (6.3-8.2) g/dL Albumin (3.5-5.1) g/dL Lipase (23-300) U/L 04/23/24 04/23/24 04/23/24 Range/Units 10:36 10:36 10:36 WBC RBC Hgb 10.5 L Hct Cancelled 31.5 L MCV Cancelled 81.0 MCH Cancelled MCHC RDW Plt Count MPV Immature Gran % (Auto) Neut % (Auto) Lymph % (Auto) [place] % (Auto) Eos % (Auto) Baso % (Auto) Lymph # (Auto) [place] # (Auto) Eos # (Auto) Baso # (Auto) Abs Immat Gran (auto) Absolute Neuts (auto) Absolute Nucleated RBC Nucleated RBC % % Immature Plt Fraction ESR (0-20) mm/hr PT (11.1-14.7) Seconds INR APTT (22.3-36.8) Seconds D-Dimer (<0.48) ug/mL Sodium (137-145) mmol/L Potassium (3.4-5.0) mmol/L Chloride (98-107) mmol/L Carbon Dioxide (22-30) mmol/L Anion Gap (4-12) mmol/L BUN (9-20) mg/dL Creatinine (0.7-1.3) mg/dL Estim Creat Clear Calc ml/min Estimated GFR (59 - ) Glucose (65-110) mg/dL Calcium (8.4-10.2) mg/dL Total Bilirubin (0.2-1.3) mg/dL AST (17-59) U/L ALT (6-50) U/L Alkaline Phosphatase (38-126) U/L Troponin I (0.000-0.034) ng/mL C-Reactive Protein (<1.0) mg/dL Total Protein (6.3-8.2) g/dL Albumin (3.5-5.1) g/dL Lipase (23-300) U/L 04/23/24 04/23/24 04/23/24 Range/Units 10:36 10:36 10:36 WBC RBC Hgb Hct MCV MCH 27.0 MCHC Cancelled 33.3 RDW Cancelled 17.1 H Plt Count Cancelled MPV Immature Gran % (Auto) Neut % (Auto) Lymph % (Auto) [place] % (Auto) Eos % (Auto) Baso % (Auto) Lymph # (Auto) [place] # (Auto) Eos # (Auto) Baso # (Auto) Abs Immat Gran (auto) Absolute Neuts (auto) Absolute Nucleated RBC Nucleated RBC % % Immature Plt Fraction ESR (0-20) mm/hr PT (11.1-14.7) Seconds INR APTT (22.3-36.8) Seconds D-Dimer (<0.48) ug/mL Sodium (137-145) mmol/L Potassium (3.4-5.0) mmol/L Chloride (98-107) mmol/L Carbon Dioxide (22-30) mmol/L Anion Gap (4-12) mmol/L BUN (9-20) mg/dL Creatinine (0.7-1.3) mg/dL Estim Creat Clear Calc ml/min Estimated GFR (59 - ) Glucose (65-110) mg/dL Calcium (8.4-10.2) mg/dL Total Bilirubin (0.2-1.3) mg/dL AST (17-59) U/L ALT (6-50) U/L Alkaline Phosphatase (38-126) U/L Troponin I (0.000-0.034) ng/mL C-Reactive Protein (<1.0) mg/dL Total Protein (6.3-8.2) g/dL Albumin (3.5-5.1) g/dL Lipase (23-300) U/L 04/23/24 04/23/24 04/23/24 Range/Units 10:36 10:36 10:36 WBC RBC Hgb Hct MCV MCH MCHC RDW Plt Count 330 MPV Cancelled 10.4 Immature Gran % (Auto) Cancelled 0.4 Neut % (Auto) Cancelled Lymph % (Auto) [place] % (Auto) Eos % (Auto) Baso % (Auto) Lymph # (Auto) [place] # (Auto) Eos # (Auto) Baso # (Auto) Abs Immat Gran (auto) Absolute Neuts (auto) Absolute Nucleated RBC Nucleated RBC % % Immature Plt Fraction ESR (0-20) mm/hr PT (11.1-14.7) Seconds INR APTT (22.3-36.8) Seconds D-Dimer (<0.48) ug/mL Sodium (137-145) mmol/L Potassium (3.4-5.0) mmol/L Chloride (98-107) mmol/L Carbon Dioxide (22-30) mmol/L Anion Gap (4-12) mmol/L BUN (9-20) mg/dL Creatinine (0.7-1.3) mg/dL Estim Creat Clear Calc ml/min Estimated GFR (59 - ) Glucose (65-110) mg/dL Calcium (8.4-10.2) mg/dL Total Bilirubin (0.2-1.3) mg/dL AST (17-59) U/L ALT (6-50) U/L Alkaline Phosphatase (38-126) U/L Troponin I (0.000-0.034) ng/mL C-Reactive Protein (<1.0) mg/dL Total Protein (6.3-8.2) g/dL Albumin (3.5-5.1) g/dL Lipase (23-300) U/L 04/23/24 04/23/24 04/23/24 Range/Units 10:36 10:36 10:36 WBC RBC Hgb Hct MCV MCH MCHC RDW Plt Count MPV Immature Gran % (Auto) Neut % (Auto) 77.5 H Lymph % (Auto) Cancelled 16.2 L [place] % (Auto) Cancelled 4.0 Eos % (Auto) Cancelled Baso % (Auto) Lymph # (Auto) [place] # (Auto) Eos # (Auto) Baso # (Auto) Abs Immat Gran (auto) Absolute Neuts (auto) Absolute Nucleated RBC Nucleated RBC % % Immature Plt Fraction ESR (0-20) mm/hr PT (11.1-14.7) Seconds INR APTT (22.3-36.8) Seconds D-Dimer (<0.48) ug/mL Sodium (137-145) mmol/L Potassium (3.4-5.0) mmol/L Chloride (98-107) mmol/L Carbon Dioxide (22-30) mmol/L Anion Gap (4-12) mmol/L BUN (9-20) mg/dL Creatinine (0.7-1.3) mg/dL Estim Creat Clear Calc ml/min Estimated GFR (59 - ) Glucose (65-110) mg/dL Calcium (8.4-10.2) mg/dL Total Bilirubin (0.2-1.3) mg/dL AST (17-59) U/L ALT (6-50) U/L Alkaline Phosphatase (38-126) U/L Troponin I (0.000-0.034) ng/mL C-Reactive Protein (<1.0) mg/dL Total Protein (6.3-8.2) g/dL Albumin (3.5-5.1) g/dL Lipase (23-300) U/L 04/23/24 04/23/24 04/23/24 Range/Units 10:36 10:36 10:36 WBC RBC Hgb Hct MCV MCH MCHC RDW Plt Count MPV Immature Gran % (Auto) Neut % (Auto) Lymph % (Auto) [place] % (Auto) Eos % (Auto) 1.9 Baso % (Auto) Cancelled 0.0 L Lymph # (Auto) Cancelled 0.85 L [place] # (Auto) Cancelled Eos # (Auto) Baso # (Auto) Abs Immat Gran (auto) Absolute Neuts (auto) Absolute Nucleated RBC Nucleated RBC % % Immature Plt Fraction ESR (0-20) mm/hr PT (11.1-14.7) Seconds INR APTT (22.3-36.8) Seconds D-Dimer (<0.48) ug/mL Sodium (137-145) mmol/L Potassium (3.4-5.0) mmol/L Chloride (98-107) mmol/L Carbon Dioxide (22-30) mmol/L Anion Gap (4-12) mmol/L BUN (9-20) mg/dL Creatinine (0.7-1.3) mg/dL Estim Creat Clear Calc ml/min Estimated GFR (59 - ) Glucose (65-110) mg/dL Calcium (8.4-10.2) mg/dL Total Bilirubin (0.2-1.3) mg/dL AST (17-59) U/L ALT (6-50) U/L Alkaline Phosphatase (38-126) U/L Troponin I (0.000-0.034) ng/mL C-Reactive Protein (<1.0) mg/dL Total Protein (6.3-8.2) g/dL Albumin (3.5-5.1) g/dL Lipase (23-300) U/L 04/23/24 04/23/24 04/23/24 Range/Units 10:36 10:36 10:36 WBC RBC Hgb Hct MCV MCH MCHC RDW Plt Count MPV Immature Gran % (Auto) Neut % (Auto) Lymph % (Auto) [place] % (Auto) Eos % (Auto) Baso % (Auto) Lymph # (Auto) [place] # (Auto) 0.2 Eos # (Auto) Cancelled 0.1 Baso # (Auto) Cancelled 0.0 Abs Immat Gran (auto) Cancelled Absolute Neuts (auto) Absolute Nucleated RBC Nucleated RBC % % Immature Plt Fraction ESR (0-20) mm/hr PT (11.1-14.7) Seconds INR APTT (22.3-36.8) Seconds D-Dimer (<0.48) ug/mL Sodium (137-145) mmol/L Potassium (3.4-5.0) mmol/L Chloride (98-107) mmol/L Carbon Dioxide (22-30) mmol/L Anion Gap (4-12) mmol/L BUN (9-20) mg/dL Creatinine (0.7-1.3) mg/dL Estim Creat Clear Calc ml/min Estimated GFR (59 - ) Glucose (65-110) mg/dL Calcium (8.4-10.2) mg/dL Total Bilirubin (0.2-1.3) mg/dL AST (17-59) U/L ALT (6-50) U/L Alkaline Phosphatase (38-126) U/L Troponin I (0.000-0.034) ng/mL C-Reactive Protein (<1.0) mg/dL Total Protein (6.3-8.2) g/dL Albumin (3.5-5.1) g/dL Lipase (23-300) U/L 04/23/24 04/23/24 04/23/24 Range/Units 10:36 10:36 10:36 WBC RBC Hgb Hct MCV MCH MCHC RDW Plt Count MPV Immature Gran % (Auto) Neut % (Auto) Lymph % (Auto) [place] % (Auto) Eos % (Auto) Baso % (Auto) Lymph # (Auto) [place] # (Auto) Eos # (Auto) Baso # (Auto) Abs Immat Gran (auto) 0.02 Absolute Neuts (auto) Cancelled 4.1 Absolute Nucleated RBC Cancelled 0.000 Nucleated RBC % Cancelled % Immature Plt Fraction ESR (0-20) mm/hr PT (11.1-14.7) Seconds INR APTT (22.3-36.8) Seconds D-Dimer (<0.48) ug/mL Sodium (137-145) mmol/L Potassium (3.4-5.0) mmol/L Chloride (98-107) mmol/L Carbon Dioxide (22-30) mmol/L Anion Gap (4-12) mmol/L BUN (9-20) mg/dL Creatinine (0.7-1.3) mg/dL Estim Creat Clear Calc ml/min Estimated GFR (59 - ) Glucose (65-110) mg/dL Calcium (8.4-10.2) mg/dL Total Bilirubin (0.2-1.3) mg/dL AST (17-59) U/L ALT (6-50) U/L Alkaline Phosphatase (38-126) U/L Troponin I (0.000-0.034) ng/mL C-Reactive Protein (<1.0) mg/dL Total Protein (6.3-8.2) g/dL Albumin (3.5-5.1) g/dL Lipase (23-300) U/L 04/23/24 04/23/24 04/23/24 Range/Units 10:36 10:36 14:06 WBC RBC Hgb Hct MCV MCH MCHC RDW Plt Count MPV Immature Gran % (Auto) Neut % (Auto) Lymph % (Auto) [place] % (Auto) Eos % (Auto) Baso % (Auto) Lymph # (Auto) [place] # (Auto) Eos # (Auto) Baso # (Auto) Abs Immat Gran (auto) Absolute Neuts (auto) Absolute Nucleated RBC Nucleated RBC % 0.0 % Immature Plt Fraction Cancelled ESR 91 H (0-20) mm/hr PT 13.8 (11.1-14.7) Seconds INR 1.0 APTT 29.8 (22.3-36.8) Seconds D-Dimer 2.79 H (<0.48) ug/mL Sodium 137 (137-145) mmol/L Potassium 3.8 (3.4-5.0) mmol/L Chloride 103 (98-107) mmol/L Carbon Dioxide 24 (22-30) mmol/L Anion Gap 10 (4-12) mmol/L BUN 7 L D (9-20) mg/dL Creatinine 0.60 L (0.7-1.3) mg/dL Estim Creat Clear Calc 150 ml/min Estimated GFR > 60 (59 - ) Glucose 149 H (65-110) mg/dL Calcium 8.8 (8.4-10.2) mg/dL Total Bilirubin 0.9 (0.2-1.3) mg/dL AST 27 (17-59) U/L ALT 29 (6-50) U/L Alkaline Phosphatase 114 (38-126) U/L Troponin I < 0.012 < 0.012 (0.000-0.034) ng/mL C-Reactive Protein 4.7 H 4.9 H (<1.0) mg/dL Total Protein 8.0 (6.3-8.2) g/dL Albumin 3.7 (3.5-5.1) g/dL Lipase 60 (23-300) U/L 04/23/24 Range/Units 16:36 WBC RBC Hgb Hct MCV MCH MCHC RDW Plt Count MPV Immature Gran % (Auto) Neut % (Auto) Lymph % (Auto) [place] % (Auto) Eos % (Auto) Baso % (Auto) Lymph # (Auto) [place] # (Auto) Eos # (Auto) Baso # (Auto) Abs Immat Gran (auto) Absolute Neuts (auto) Absolute Nucleated RBC Nucleated RBC % % Immature Plt Fraction ESR (0-20) mm/hr PT (11.1-14.7) Seconds INR APTT (22.3-36.8) Seconds D-Dimer (<0.48) ug/mL Sodium (137-145) mmol/L Potassium (3.4-5.0) mmol/L Chloride (98-107) mmol/L Carbon Dioxide (22-30) mmol/L Anion Gap (4-12) mmol/L BUN (9-20) mg/dL Creatinine (0.7-1.3) mg/dL Estim Creat Clear Calc ml/min Estimated GFR (59 - ) Glucose (65-110) mg/dL Calcium (8.4-10.2) mg/dL Total Bilirubin (0.2-1.3) mg/dL AST (17-59) U/L ALT (6-50) U/L Alkaline Phosphatase (38-126) U/L Troponin I Cancelled (0.000-0.034) ng/mL C-Reactive Protein (<1.0) mg/dL Total Protein (6.3-8.2) g/dL Albumin (3.5-5.1) g/dL Lipase (23-300) U/L <Federico Peck MD - Last Filed: 04/23/24 16:45> Imaging Data Radiologist's impression: ITS Impressions Chest X-Ray 04/23/24 10:50 IMPRESSION: Right lower lobe infiltrate and/atelectasis, minimal left basilar atelectasis Virtual resolution of congestive changes since 04/05/2024 Cardiomegaly Chest CTA 04/23/24 15:04 IMPRESSION: 1. No pulmonary embolism. 2. Right basilar atelectasis versus pneumonia with pleural effusion. Minimal left pleural effusion. <Federico Peck MD - Last Filed: 04/23/24 16:45> ECG Data EKG #1: ECG completion date: 04/23/24 <Federico Peck MD - Last Filed: 04/23/24 16:45> ECG completion time: 10:18 <Federico Peck MD - Last Filed: 04/23/24 16:45> EKG Interpretation: tachycardia (123), sinus rhythm, non-specific ST changes, normal QRS, normal QT and NL axis <Federico Peck MD - Last Filed: 04/23/24 16:45> Critical Care Time Critical Care Time Critical Care Time: No <Jessica Thapa PA-C - Last Filed: 04/24/24 15:12> Discharge Plan Discharge Clinical Impression: Atypical chest pain Pneumonia Qualifiers: Pneumonia type: due to unspecified organism Laterality: right Lung location: lower lobe of lung Qualified Code(s): J18.9 - Pneumonia, unspecified organism <Jessica Thapa PA-C - Last Filed: 04/24/24 15:12> Patient Disposition: Home, Self-Care <Jessica Thapa PA-C - Last Filed: 04/24/24 15:12> Condition: Stable <Jessica Thapa PA-C - Last Filed: 04/24/24 15:12> Instructions: Pneumonia (ED) <Jessica Thapa PA-C - Last Filed: 04/24/24 15:12> Additional Instructions: Please return to the emergency department if you develop severe and persistent chest pain, difficulty breathing, dizziness, leg swelling or if you are coughing up blood as these can be signs of a medical emergency. Please call your doctor for a follow up appointment to determine the need for further testing. <Jessica Thapa PA-C - Last Filed: 04/24/24 15:12> Patient Language: Bulgarian <Jessica Thapa PA-C - Last Filed: 04/24/24 15:12> Prescriptions: New naproxen 375 mg tablet 375 mg PO BID Qty: 14 0RF levofloxacin 750 mg tablet 750 mg PO DAILY Qty: 5 0RF No Action ibuprofen 600 mg Tablet 600 mg PO TID Qty: 30 0RF <Jessica Thapa PA-C - Last Filed: 04/24/24 15:12> Follow-up/Referrals: [facility] [Primary Care Provider] - 3 Days <Jessica Thapa PA-C - Last Filed: 04/24/24 15:12>
[2024-04-23 14:33] LABS: Eosinophils Absolute Auto 0.1 K/mm3 (0-0.3); Eosinophils Percent Auto 1.9 % (0-4.4); Hematocrit 31.5 % (42.0-52.0); Hemoglobin 10.5 g/dL (14.0-18.0); Immature Granulocyte Absolute 0.02 K/mm3 (0.00-0.031); Immature Granulocyte Percent A 0.4 % (0-0.5); Lymphocytes Absolute Auto 0.85 K/mm3 (0.9-3.2); Lymphocytes Percent Auto 16.2 % (18.3-44.2); Mean Corpuscular HGB Conc 33.3 g/dl (32-36); Mean Platelet Volume 10.4 fl (7.4-10.4); Monocytes Absolute Auto 0.2 K/mm3 (0.1-0.6); Neutrophils Absolute Auto 4.1 K/mm3 (1.3-6.7); Neutrophils Percent Auto 77.5 % (45.5-73.1); Platelet Count Result 330 k/mm3 (150-375); Red Blood Count 3.89 M/mm3 (4.6-6.20); Red Cell Distribution Width 17.1 % (11.5-14.5); White Blood Count 5.2 K/mm3 (4.5-10.0)
[2024-04-23 14:34] LABS: Troponin I < 0.012 ng/mL (0.000-0.034)
[2024-04-23 15:10] VITALS: BP 113/75; PULSE 98; RESP 18; O2SAT 100
[2024-04-23] MEDS: ASPIRIN 81 MG CHEWABLE TABLET 324 MG PO (15:21)
[2024-04-23 17:16] VITALS: BP 112/79
== END 2024-04-23 17:24 | disposition home or self-care (01) ==
PROVIDERS: Physician Assistant; Student in an Organized Health Care Education/Training Program; Emergency Provider Emergency Medicine
DX: J18.9 Pneumonia, unspecified organism (principal); R07.89 Other chest pain
CPT/HCPCS: 36415; 71046; 71275; 80053; 83690; 84484; 85025; 85380; 85610; 85652; 85730; 86140; 93005; 99284; A9270; Q9967